=== PATIENT | female | born 1935 | race Caucasian/White ===

== ENCOUNTER → 2020-10-28 11:02 | Outpatient (CLI) | payer MEDICARE, OTHER, SELFPAY ==
[2020-10-16 12:55] VITALS: BMI 37.0
--- NOTE | 2020-10-28 11:06 | ECHOD_ITS ---
Reason For Study: AFIB/FLUTTER Procedure This was a 2D Doppler, Color Flow transthoracic echocardiogram. Exam performed in department. Left Ventricle Normal LV size. Left ventricular systolic function is normal. The estimated ejection fraction is 60 %. Stage 2 diastolic dysfunction. No regional wall motion abnormalities noted. Right Ventricle Normal RV size. Normal systolic function. Atria Normal left atrium. Normal right atrium. Mitral Valve There is mild mitral annular calcification. Mild (1+) eccentric mitral valve insufficiency. Tricuspid Valve Normal tricuspid valve. Mild (1+) tricuspid valve insufficiency. Pulmonary artery systolic pressure is 38 mmHg. Aortic Valve Normal aortic valve. Trisinus/trileaflet aortic valve. Pulmonic Valve Normal pulmonic valve. Mild (1+) pulmonic valve insufficiency. Great Vessels Normal aortic root. The pulmonary artery is normal size. Normal inferior vena cava. Pericardium/Pleural No pericardial effusion. MMode/2D Measurements & Calculations LVIDd: 4.7 cm IVSd: 1.2 cm Ao root diam: 2.7 cm LVIDs: 2.6 cm LVPWd: 1.0 cm RVDd: 3.5 cm FS: 45.5 % LAV(MOD-bp): 56.5 ml LA A4 area: 19.5 cm2 LA dimension(2D): 4.1 cm LAV(MOD-bp) Indexed: 33.1 ml/m2 LAV(MOD-sp2): 57.2 ml LAV(MOD-sp4): 55.8 ml RA A4 area: 12.9 cm2 Time Measurements MV dec time: 0.25 sec Doppler Measurements & Calculations MV E max mayank: 92.2 cm/sec Lat Peak E' Mayank: 5.4 cm/sec Med Peak E' Mayank: 3.9 cm/sec MV A max mayank: 86.1 cm/sec E/E' lat: 17.0 E/E' med: 23.8 MV E/A: 1.1 Ao V2 max: 145.1 cm/sec LV V1 max: 93.2 cm/sec PA V2 max: 86.5 cm/sec Ao max P.4 mmHg LV V1 max P.5 mmHg TR max mayank: 294.7 cm/sec TR max P.9 mmHg ECHO/Echo Complete Interpretation Summary Normal LV size. Left ventricular systolic function is normal. The estimated ejection fraction is 60 %. Mild (1+) tricuspid valve insufficiency. Pulmonary artery systolic pressure is 38 mmHg. Stage 2 diastolic dysfunction. Ordering Physician: El Lama Referring Physician: Rufino Ortega Performed By: Laney Rivas, CARLYN, RVT
== END ==
PROVIDERS: PCP Family Medicine; Referring Provider Internal Medicine Cardiovascular Disease; Visit Provider Internal Medicine Cardiovascular Disease
DX: I48.0 Paroxysmal atrial fibrillation (principal)
CPT/HCPCS: 93306

== ENCOUNTER → 2020-11-27 08:10 | Outpatient (CLI) | payer MEDICARE, OTHER, SELFPAY ==
[2020-10-16 12:55] VITALS: BMI 37.0
--- NOTE | 2020-11-27 08:12 | CT_ITS ---
STUDY: CT LEFT ELBOW WITHOUT CONTRAST REASON FOR EXAM: Female, 85 years old. DISP FX OF NECK OF L RADIUS,INIT FOR CLOS FX RADIATION DOSAGE (If Supplied By Facility): CTDIvol = ( 38.02 ) mGy, DLP = ( 1593.10 ) mGycm TECHNIQUE: Transaxial CT imaging of the elbow was performed. Sagittal and coronal images were reconstructed. Individualized dose optimization techniques were used for this CT. COMPARISON: None. FINDINGS: Patient motion obscuring the distal radius and ulna. Distal humerus intact. Acute comminuted minimally displaced radial neck fracture (sagittal image 26 series 601 and axial image 21 series 6). No acute dislocation. No acute bone destruction. Mild radiocapitellar arthrosis. Ulnar trochlear alignment maintained with mild arthrosis. Proximal ulna intact. Soft tissue swelling at the elbow with elbow joint effusion. CT/Extremity Upper without Contra IMPRESSION: Acute comminuted minimally displaced radial neck fracture Elbow soft tissue swelling with joint effusion Mild elbow osteoarthritis Electronically Signed: Jose Tijerina DO at 8:51 EDT Tel , Service support ,
== END ==
LOC: CT 08:11
PROVIDERS: PCP Family Medicine; Referring Provider Physician Assistant Surgical; Visit Provider Physician Assistant Surgical
DX: S52.132A Displaced fracture of neck of left radius, initial encounter for closed fracture (principal); S42.135A Nondisplaced fracture of coracoid process, left shoulder, initial encounter for closed fracture; X58.XXXA Exposure to other specified factors, initial encounter; M19.022 Primary osteoarthritis, left elbow
CPT/HCPCS: 73200

== ENCOUNTER 2021-04-02 10:31 | Outpatient (CLI) | payer MEDICARE, OTHER, SELFPAY ==
[2021-04-02] MEDS: 0.9% Saline Lock 10 ML Syringe IV (10:53)
[2021-04-02 10:58] VITALS: BP 146/62; PULSE 59; RESP 16; TEMP 36.5; O2SAT 95; BMI 34.3
[2021-04-02 11:50] VITALS: BP 115/54; PULSE 55; RESP 16; TEMP 37; O2SAT 94
[2021-04-02 12:47] VITALS: BP 119/50; PULSE 56; RESP 18; TEMP 37.4; O2SAT 96
== END 2021-04-02 12:50 | disposition home or self-care (01) ==
LOC: MS3OUT 10:31 → MS3 10:33
PROVIDERS: PCP Family Medicine; Referring Provider Nurse Practitioner Adult Health; Visit Provider Nurse Practitioner Adult Health
DX: U07.1 COVID-19 (principal)
CPT/HCPCS: J7050; M0245; Q0245; A4216

== ENCOUNTER 2023-11-13 09:18 | Emergency (ER) | payer MEDICARE, OTHER, SELFPAY ==
[2023-11-13 09:18] VITALS: BP 179/72; PULSE 55; RESP 14; TEMP 36.2; O2SAT 98
--- NOTE | 2023-11-13 10:02 | EDS_ITS ---
HPI History of Present Illness Chief Complaint: Nosebleed Narrative Narrative: 88-year-old female past medical history of hypertension, paroxysmal atrial fibrillation, on Xarelto, presents with bleeding from her left nares that began late last night/early this morning. Her son relates history that she went to bed around midnight, then half an hour later came out because she was having bleeding from her left nares. It had stopped, and while she was laying flat, through the night it had stopped bleeding. When she awoke this morning and sat up, she had bleeding from her left nares again. Going down the back of her throat as well. She denies any other bleeding diathesis. No chest pain or shortness of breath, no lightheadedness or dizziness. She has not had problems with nosebleeds in the past. [facility] Medical History COVID-19 (03/2021) Obesity Right bundle branch block (RBBB) Hyperlipidemia Prediabetes Salas's palsy Paroxysmal atrial fibrillation Essential hypertension Osteopenia History of hepatitis Hyperglycemia Osteoarthritis Home Medications ?Medication ?Instructions ?Recorded ?Last Taken ?Type acetaminophen 500 mg tablet 500 mg PO Q6H PRN Pain 10/10/20 Unknown History cholecalciferol (vitamin D3) 50 50 mcg PO DAILY 10/10/20 Unknown History mcg (2,000 unit) capsule doxylamine succinate 25 mg tablet 25 mg PO QHS PRN Sleep 10/10/20 Unknown History (Nighttime Sleep-Aid (doxylamine)) metoprolol succinate 50 mg 50 mg PO DAILY 10/10/20 Unknown History tablet,extended release 24 hr multivitamin 1 tab PO DAILY 10/10/20 Unknown History omega-3 fatty acids 1,000 mg 1,000 mg PO DAILY 10/10/20 Unknown History capsule (Fish Oil Concentrate) loperamide 2 mg capsule 2 mg PO Q6H PRN 07/03/22 Unknown History rivaroxaban 20 mg tablet (Xarelto) 20 mg PO DAILY #90 tabs 03/29/23 Unknown Rx Allergy/AdvReac Type Severity Reaction Status Date / Time propoxyphene (From Allergy Unknown unknown Verified 11/13/23 09:19 Darvocet-N) Sulfa (Sulfonamide Allergy Unknown unknown Verified 11/13/23 09:19 Antibiotics) Family History Mother Heart disease Father Heart disease Sister Heart disease Breast cancer Aunt Breast cancer Diabetes Grandmother Cancer stomach Surgical History History of bilateral cataract extraction History of eyelid surgery 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 HEENT: No sore throat. No neck pain. No loss of vision. No rhinorrhea. Positive bleeding from left nares. Cardiovascular: No chest pain. No palpitations. No pedal edema. Respiratory: No cough, no shortness of breath. Abdominal: No abdominal pain. No nausea. No vomiting. Genitourinary: No dysuria. No hematuria. Musculoskeletal: No myalgias. No arthralgias. Neurologic: No headaches. No dizziness. No lightheadedness. Skin: No rash. No change in color. Psychiatric: No depression. No anxiety. EXAM Physical Exam Narrative Exam Narrative: Afebrile. Vital signs noted. HEENT examination does reveal nasal clamp in place with dried blood in mouth, no brisk bleeding down posterior pharynx. A irway patent. No drooling or trismus. Cardiovascular examination reveals regular bradycardia. Lungs are clear to auscultation bilaterally. Abdomen soft nontender with normal active bowel sounds. No evidence of pallor of skin. Const Vital Signs: 11/13/23 09:18 11/13/23 10:16 11/13/23 11:18 Temperature 97.2 F L Temperature Source Temporal Pulse Rate 55 L 98 Respiratory Rate 14 16 Respiratory Effort Normal Non-Labored Respiratory Depth Normal Respiratory Pattern Normal Blood Pressure 179/72 H 150/101 H Blood Pressure Mean 107 117 Pulse Ox 98 96 Oxygen Delivery Method Room Air Room Air Room Air MDM MDM MDM Narrative Medical decision making narrative: No field differential diagnosis is applicable. She is having bleeding from her left nares. Nasal clamp was removed, and she does have a clot contained within her left nares. I discussed with them the possibility of cauterization versus nasal packing. Nasal clamp was removed and clots were cleared from the left nares by the patient blowing. Cottonball soaked in Afrin and lidocaine 4% was inserted. This was removed, and posterior rapid Rhino was inserted with 8 mL of air to blow up the balloon. Upon repeat examination afterwards, she has no posterior pharynx bleeding, and she cleared the clots from her throat. She was able to ambulate without rebleed. At this point in time, she may have to hold her Xarelto for few days, and she was referred to the senior business objects developer on-call, Dr. Kirkpatrick. She is to return with increased bleeding, new or worsening symptoms. Disposition is discharged in stable condition. History & Record Review Discussion w/independent historian: Patient and Family Discharge Plan Triage Chief Complaint: Nosebleed Other Complaint: Cough ED Provider: Maximo Lawton Dx/Rx/DC Orders Clinical Impression: Epistaxis, Anticoagulant long-term use Instructions: ED Epistaxis (Adult) Prescriptions: No Action Nighttime Sleep-Aid (doxylamn) 25 mg tablet 25 mg PO QHS PRN (Reason: Sleep) metoprolol succinate 50 mg tablet extended release 24 hr 50 mg PO DAILY cholecalciferol (vitamin D3) 50 mcg (2,000 unit) capsule 50 mcg PO DAILY multivitamin Tablet 1 tab PO DAILY acetaminophen 500 mg tablet 500 mg PO Q6H PRN (Reason: Pain) omega-3 fatty acids [Fish Oil Concentrate] 1,000 mg capsule 1,000 mg PO DAILY loperamide 2 mg capsule 2 mg PO Q6H PRN Xarelto 20 mg tablet 20 mg PO DAILY Qty: 90 4RF Rx Instructions: must administer with evening meal Primary Care Provider: Rufino Ortega Referrals: Jorden Kirkpatrick MD [Med Staff - Active Staff] - 3-5 Days (Packing removal) Rufino Ortega MD [Primary Care Provider] - Activity Restrictions/Additional Instructions: Return with increased bleeding, new or worsening symptoms. You may need to hold your Xarelto for a few days. Have the nasal balloon/packing removed by otolaryngology in 3 to 5 days. Print Language: Irish Disposition Disposition: Home, Self Care
[2023-11-13] MEDS: Oxymetazoline 0.05% 1 SPRAY SPRAY.BTL 2 SPRAY NASAL (10:14)
[2023-11-13] MEDS: Lidocaine 4% 50 ML Bottle TOPICAL (10:14)
[2023-11-13 11:18] VITALS: BP 150/101; PULSE 98; RESP 16; O2SAT 96
== END 2023-11-13 12:11 | disposition home or self-care (01) ==
PROVIDERS: Emergency Provider Emergency Medicine; PCP Family Medicine; Visit Provider Emergency Medicine
DX: R04.0 Epistaxis (principal); I48.0 Paroxysmal atrial fibrillation; I10 Essential (primary) hypertension; Z79.01 Long term (current) use of anticoagulants; Z79.899 Other long term (current) drug therapy; Z86.16 Personal history of COVID-19
CPT/HCPCS: 30905; 99283

== ENCOUNTER 2024-04-07 16:36 | Inpatient (IN) | payer MEDICARE, OTHER, SELFPAY ==
[2024-04-07] VITALS (10 sets, daily range): BP systolic 135–162; BP diastolic 60–94; PULSE 58–88; RESP 15–24; TEMP 36.7–37.1; O2SAT 82–98; BMI 33.1; BMI 34.2
[2024-04-07] MEDS: Ipratropium/Albuterol Sulfate 3 ML AMPUL.NEB INHALATION ×2 (18:04→19:14)
[2024-04-07] MEDS: Albuterol 2.5 MG/3 ML VIAL.NEB. INHALATION (18:04)
--- NOTE | 2024-04-07 18:18 | ED.VIS.DYS ---
HPI <MARGIE Pavon - Last Filed: 04/07/24 20:56> History of Present Illness Chief Complaint: Cough Narrative Narrative: Patient presenting today due to a productive cough she has had over the past 4-5 days. She reports that she has been coughing up yellow-colored sputum. She denies chest pain, shortness of breath, fevers, and chills. She went to urgent care prior to arrival and they said that her oxygen saturation was below 90% and that she needed to come to the emergency department for evaluation. PFSH <MARGIE Pavon - Last Filed: 04/07/24 20:56> [facility] Medical History COVID-19 (03/2021) Obesity Right bundle branch block (RBBB) Hyperlipidemia Prediabetes Salas's palsy Paroxysmal atrial fibrillation Essential hypertension Osteopenia History of hepatitis Hyperglycemia Osteoarthritis Home Medications ?Medication ?Instructions ?Recorded ?Last Taken ?Type acetaminophen 500 mg tablet 500 mg PO Q6H PRN Pain 10/10/20 Unknown History cholecalciferol (vitamin D3) 50 50 mcg PO DAILY 10/10/20 Unknown History mcg (2,000 unit) capsule doxylamine succinate 25 mg tablet 25 mg PO QHS PRN Sleep 10/10/20 Unknown History (Nighttime Sleep-Aid (doxylamine)) metoprolol succinate 50 mg 50 mg PO DAILY 10/10/20 Unknown History tablet,extended release 24 hr multivitamin 1 tab PO DAILY 10/10/20 Unknown History omega-3 fatty acids 1,000 mg 1,000 mg PO DAILY 10/10/20 Unknown History capsule (Fish Oil Concentrate) loperamide 2 mg capsule 2 mg PO Q6H PRN loose stool 07/03/22 Unknown History Allergy/AdvReac Type Severity Reaction Status Date / Time propoxyphene (From Allergy Unknown unknown Verified 04/07/24 16:37 Darvocet-N) Sulfa (Sulfonamide Allergy Unknown unknown Verified 04/07/24 16:37 Antibiotics) Family History Mother Heart disease Father Heart disease Sister Heart disease Breast cancer Aunt Breast cancer Diabetes Grandmother Cancer stomach Surgical History History of bilateral cataract extraction History of eyelid surgery 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 (~2004) Social History Smoking Status: Never smoker alcohol intake: never substance use type: does not use caffeine: Yes Type: coffee Number of servings: 1 ROS <MARGIE Pavon - Last Filed: 04/07/24 20:56> ROS ED Constitutional Constitutional ED: Denies chills or fever(s) Cardiovascular Cardiovascular: Denies chest pain Respiratory/Chest Respiratory/Chest: Reports cough; Denies dyspnea Gastrointestinal Gastrointestinal: Denies abdominal pain, nausea or vomiting Musculoskeletal Musculoskeletal: Denies arthralgias or myalgias Integumentary Denies rash Neurologic Neurologic: Denies weakness EXAM <MARGIE Pavon - Last Filed: 04/07/24 20:56> Physical Exam Const Vital Signs: 04/07/24 16:37 04/07/24 18:02 04/07/24 18:05 Temperature 98.1 F 98.8 F Temperature Source Oral Oral Pulse Rate 88 58 L Respiratory Rate 20 H 22 H Respiratory Effort Respiratory Depth Respiratory Pattern Blood Pressure 135/94 H 162/76 H Blood Pressure Mean 107 104 Pulse Ox 92 96 82 Oxygen Delivery Method Room Air Nasal Cannula Room Air Oxygen Flow Rate (L/min) 2 04/07/24 18:07 04/07/24 18:07 04/07/24 18:12 Temperature Temperature Source Pulse Rate Respiratory Rate 20 H Respiratory Effort Normal Non-Labored Respiratory Depth Normal Respiratory Pattern Normal Blood Pressure Blood Pressure Mean Pulse Ox 87 98 Oxygen Delivery Method Room Air Nasal Cannula Oxygen Flow Rate (L/min) 2 04/07/24 18:12 04/07/24 19:00 04/07/24 20:00 Temperature 98.7 F Temperature Source Oral Pulse Rate 69 62 64 Respiratory Rate 24 H 20 H 20 H Respiratory Effort Respiratory Depth Respiratory Pattern Blood Pressure 153/60 H 148/75 H Blood Pressure Mean 91 99 Pulse Ox 96 96 Oxygen Delivery Method Nasal Cannula Nasal Cannula Oxygen Flow Rate (L/min) 2 2 04/07/24 20:34 Temperature 98.7 F Temperature Source Pulse Rate 64 Respiratory Rate 22 H Respiratory Effort Respiratory Depth Respiratory Pattern Blood Pressure 148/75 H Blood Pressure Mean 99 Pulse Ox 96 Oxygen Delivery Method Oxygen Flow Rate (L/min) Positive well nourished, well developed and no apparent distress General Appearance ED: well developed HEENT Reports normocephalic and head/scalp atraumatic Mouth ED: Yes moist mucous membranes normal Eyes PERRL and EOMs intact bilaterally Neck full ROM and supple Chest Wall inspection of chest normal Resp normal respiratory effort Resp Narrative: Coarse breath sounds throughout the bilateral lung christianson Cardio regular rate and regular rhythm GI soft to palpation, non-tender, non-distended and no masses Back/Spine normal ROM and normal to inspection Extremity normal to inspection and full ROM Neuro oriented x3, CN's II-XII intact bilaterally, moves all extremities, no focal motor deficits and no sensory deficits noted Sensorium / Orientation: awake and alert Psych mental status grossly normal and thought process normal Skin no rashes or lesions noted and no wounds <Dr. Jose Perrin, DO - Last Filed: 04/07/24 22:06> Physical Exam Const Vital Signs: 04/07/24 16:37 04/07/24 18:02 04/07/24 18:05 Temperature 98.1 F 98.8 F Temperature Source Oral Oral Pulse Rate 88 58 L Respiratory Rate 20 H 22 H Respiratory Effort Respiratory Depth Respiratory Pattern Blood Pressure 135/94 H 162/76 H Blood Pressure Mean 107 104 Pulse Ox 92 96 82 Oxygen Delivery Method Room Air Nasal Cannula Room Air Oxygen Flow Rate (L/min) 2 04/07/24 18:07 04/07/24 18:07 04/07/24 18:12 Temperature Temperature Source Pulse Rate Respiratory Rate 20 H Respiratory Effort Normal Non-Labored Respiratory Depth Normal Respiratory Pattern Normal Blood Pressure Blood Pressure Mean Pulse Ox 87 98 Oxygen Delivery Method Room Air Nasal Cannula Oxygen Flow Rate (L/min) 2 04/07/24 18:12 04/07/24 19:00 04/07/24 20:00 Temperature 98.7 F Temperature Source Oral Pulse Rate 69 62 64 Respiratory Rate 24 H 20 H 20 H Respiratory Effort Respiratory Depth Respiratory Pattern Blood Pressure 153/60 H 148/75 H Blood Pressure Mean 91 99 Pulse Ox 96 96 Oxygen Delivery Method Nasal Cannula Nasal Cannula Oxygen Flow Rate (L/min) 2 2 04/07/24 20:34 Temperature 98.7 F Temperature Source Pulse Rate 64 Respiratory Rate 22 H Respiratory Effort Respiratory Depth Respiratory Pattern Blood Pressure 148/75 H Blood Pressure Mean 99 Pulse Ox 96 Oxygen Delivery Method Oxygen Flow Rate (L/min) [facility] <MARGIE Pavon - Last Filed: 04/07/24 20:56> [facility] Narrative Medical decision making narrative: Patient presenting today due to a productive cough she has had over the past 4 to 5 days. She was sent here for hypoxia at the urgent care. At rest she is around 92% on room air but ambulating to the bedside she did desaturate to 82% and did require 2 L supplemental O2 which brought her back up to 98%. She was taken off of the O2, she was given an additional breathing treatment and was ambulated and did drop down to 82% on room air again. At this point, I feel she requires admission to the hospital and I will speak with the hospitalist. She is RSV positive. Chest x-ray shows no infiltrate. Patient admitted in stable condition. Lab Data Attestation: I reviewed the patient's lab results. Labs: Laboratory Results - last 24 hr 04/07/24 19:19 WBC 6.0 RBC 4.49 Hgb 13.8 Hct 42.3 MCV 94.2 MCH 30.7 MCHC 32.6 RDW Std Deviation 43.2 RDW Coeff of Tanner 12.5 Plt Count 78 L MPV 11.1 Immature Gran % (Auto) 0.300 Neut % (Auto) 25.4 L Lymph % (Auto) 42.3 H High[place] % (Auto) 30.3 H Eos % (Auto) 1.2 Baso % (Auto) 0.5 Absolute Neuts (auto) 1.5 L Absolute Lymphs (auto) 2.55 Nucleated RBC % 0 Sodium 137 Potassium 4.2 Chloride 102 Carbon Dioxide 32.0 Anion Gap 3 L BUN 11 Creatinine 0.75 Estim Creat Clear Calc 42.94 Est GFR (MDRD) Af Amer 93 Est GFR (MDRD) Non-Af 77 BUN/Creatinine Ratio 14.6 Glucose 120 H Calcium 9.6 Radiography X-Ray: Read by ED Physician Diagnostic Testing: Clinical Impression(s) from Imaging Studies Chest X-Ray 04/07/24 18:28 IMPRESSION: 1. No evidence of acute cardiopulmonary process Electronically Signed: Ashu Woods MD at 18:54 EST , <Dr. Jose Perrin, DO - Last Filed: 04/07/24 22:06> [facility] Lab Data Labs: Laboratory Results - last 24 hr 04/07/24 19:19 WBC 6.0 RBC 4.49 Hgb 13.8 Hct 42.3 MCV 94.2 MCH 30.7 MCHC 32.6 RDW Std Deviation 43.2 RDW Coeff of Tanner 12.5 Plt Count 78 L MPV 11.1 Immature Gran % (Auto) 0.300 Neut % (Auto) 25.4 L Lymph % (Auto) 42.3 H High[place] % (Auto) 30.3 H Eos % (Auto) 1.2 Baso % (Auto) 0.5 Absolute Neuts (auto) 1.5 L Absolute Lymphs (auto) 2.55 Nucleated RBC % 0 Sodium 137 Potassium 4.2 Chloride 102 Carbon Dioxide 32.0 Anion Gap 3 L BUN 11 Creatinine 0.75 Estim Creat Clear Calc 42.94 Est GFR (MDRD) Af Amer 93 Est GFR (MDRD) Non-Af 77 BUN/Creatinine Ratio 14.6 Glucose 120 H Calcium 9.6 Radiography Chest X-Ray - ED: 2 View, Read by ED Physician, Read by Radiologist and No Acute Disease Diagnostic Testing: Clinical Impression(s) from Imaging Studies Chest X-Ray 04/07/24 18:28 IMPRESSION: 1. No evidence of acute cardiopulmonary process Electronically Signed: Ashu Woods MD at 18:54 EST , Treatment and Re-Evaluation :: I have personally performed a face to face assessment of the patient and have reviewed the ALLI Note. I performed a substantive portion of the visit including all aspects of the following. My moran findings include: History: Patient presents with cough and shortness of breath that has been getting worse over the past 2 days. Patient states it is gradually getting worse. Patient states he is coughing up some yellow sputum. Patient admits to some nasal congestion. Patient denies any fevers or chills. Patient denies any chest pain. Patient denies any hemoptysis. Patient states she did have some nausea, vomiting, and diarrhea last week but this has resolved. Exam: Signs are stable. Patient is afebrile. Patient is in no acute distress. Oral mucosa is pink and moist. Neck is supple. Trachea is midline. There is no JVD. Heart was regular rate and rhythm. Lungs show expiratory wheezing bilaterally. There is good respiratory effort noted. Abdomen is soft. Bowel sounds are normal. There is no tenderness. Cranial nerves II through XII are intact. There are no focal motor or sensory deficits. Medical Decision Making: Differential diagnosis includes pneumonia, bronchitis, COPD exacerbation, asthma exacerbation, and viral illness. Chest x-ray will be obtained to assess for pneumonia and bronchitis. CBC will be obtained to assess for leukocytosis and anemia. Basic metabolic profile will be obtained to assess for electrolyte abnormality and renal function. COVID-19, influenza, and RSV PCR will be obtained to assess for viral illness. Patient was given DuoNeb aerosols here. CBC was reviewed. Platelets were slightly low at 78. The remainder is within normal limits. Basic metabolic profile was reviewed and was essentially within normal limits. PA and lateral chest x-ray was obtained. There are 2 views. On my independent interpretation, lung christianson are clear. There is normal cardiac silhouette. Bony thorax is normal. There is no acute process noted. Radiologist also interpreted the x-ray and agrees. COVID-19 PCR was reviewed and was negative. Influenza PCR was reviewed and was negative for influenza A and influenza B. RSV PCR was reviewed and was positive. Patient and family were advised of her findings. Patient ambulated here in the emergency department and her pulse oximeter dropped to 83% on room air. Because of this, patient will need to be admitted to the hospital. Case was discussed with the hospitalist. He will admit the patient to his service. Patient and family understand and are agreeable with the plan. All questions were answered. Discharge Plan Dx/Rx/DC Orders Clinical Impression: RSV infection, Hypoxia Disposition Disposition: Acute Care Hospital [facility] Discharge Date/Time: 04/07/24 21:59
--- NOTE | 2024-04-07 18:28 | RAD_ITS ---
INDICATION: cough EXAMINATION/TECHNIQUE: X-RAY - XR Chest 2 Views COMPARISON: 10/12/2003 FINDINGS: LIFE-SUPPORT AND LINES: 1. None HEART AND VESSELS: The cardiac silhouette, pulmonary vasculature have normal appearance. No evidence of congestive failure. LUNGS AND PLEURAL SPACES: Lungs are clear. No focal infiltrate, consolidation or effusions. No evidence of pneumothorax. No pulmonary mass is noted. MEDIASTINUM AND HILAR REGIONS: No masses adenopathy noted. No areas of calcification. Visualized upper airway is normal in position. BONY ELEMENTS: No acute bony changes noted. RAD/Chest PA and Lateral IMPRESSION: 1. No evidence of acute cardiopulmonary process Electronically Signed: Ashu Woods MD at 18:54 EST ,
[2024-04-07 19:28] LABS: Absolute Lymphocyte Count 2.55 X10^3/uL (0.83-4.51); Absolute Neutrophil Count 1.5 X10^3/uL (2.0-7.7); Basophil# 0.03 X10^3/uL; Basophil% 0.5 % (0-1); Eosinophil# 0.07 X10^3/uL; Eosinophils% 1.2 % (0-5); Hematocrit 42.3 % (37-47); Hemoglobin 13.8 g/dL (12.0-15.0); Lymphocyte # 2.55 X10^3/ul (0.83-4.51); Lymphocyte % 42.3 % (19-41); Mean Corp Hgb Conc 32.6 g/dL (32-36); Mean Corpuscular Hgb 30.7 pg (27.0-32.0); Mean Corpuscular Volume 94.2 fL (81-99); Mean Platelet Vol. 11.1 fl (6.2-12.0); Monocyte# 1.83 X10^3/uL; Monocyte% 30.3 % (0-10); NRBC Flagged by Analyzer 0 % (0-5); Neutrophil # 1.53 X10^3/uL (2.7-7.7); Neutrophil % 25.4 % (47-70); POSITIVE COUNT YES; POSITIVE DIFFERENTIAL YES; Platelet Count 78 K/mm3 (150-450); RBC Distribution Width CV 12.5 % (11.6-14.6); RBC Distribution Width SD 43.2 fl (35.1-43.9); Red Blood Count 4.49 M/mm3 (4.2-5.4)
[2024-04-07 19:34] LABS: Differential Indicated SCAN CRITERIA MET
--- NOTE | 2024-04-07 19:35 | CPS ---
[1914] x1 Duoneb given to pt. Pre-tx: HR=67, RR=26 with coarse breath sounds. Post-tx: HR=63, RR=22 with clearer breath sounds and expiratory wheezes. Pt. coughed up yellow phlegm post-tx and states she feels relief.
[2024-04-07 19:40] LABS: Anion Gap 3 (5-15); BUN 11 mg/dL (7-18); BUN/Creat Ratio 14.6 RATIO (10-20); Calcium,Total 9.6 mg/dL (8.5-10.1); Chloride 102 mmol/L (98-107); Creatinine, Serum 0.75 mg/dL (0.55-1.02); EST Glomerular Filtration Rate 77 mL/min (>60); Est Glom Filt Rate - Afr Amer 93 mL/min (>60); Estimated Creatinine Clearance 42.94 ml/min; Glucose 120 mg/dL (74-106); Potassium 4.2 mmol/L (3.5-5.1); Sodium Level 137 mmol/L (136-145)
--- NOTE | 2024-04-07 21:02 | HP.PCM.HOS_ITS ---
HPI - General General Date of Admission: 04/07/24 HPI Narrative VINCENT KHANNA, is a 89 F who presents to the hospital with cough and shortness of breath. She was found to be hypoxic down to 82% on room air at rest and with ambulation. Workup was fairly unremarkable except for a positive RSV test. She denies any history of COPD or asthma though her late was a 3 pack-a-day smoker so she does have significant secondhand smoke exposure. She was having some wheezing on admission that was resolved by the time I evaluated her secondary to breathing treatments in the ER. [facility] Medical History COVID-19 (03/2021) Obesity Right bundle branch block (RBBB) Hyperlipidemia Prediabetes Salas's palsy Paroxysmal atrial fibrillation Essential hypertension Osteopenia History of hepatitis Hyperglycemia Osteoarthritis Home Medications ?Medication ?Instructions ?Recorded ?Last Taken ?Type acetaminophen 500 mg tablet 500 mg PO Q6H PRN Pain 10/10/20 Unknown History cholecalciferol (vitamin D3) 50 50 mcg PO DAILY 10/10/20 Unknown History mcg (2,000 unit) capsule doxylamine succinate 25 mg tablet 25 mg PO QHS PRN Sleep 10/10/20 Unknown History (Nighttime Sleep-Aid (doxylamine)) metoprolol succinate 50 mg 50 mg PO DAILY 10/10/20 Unknown History tablet,extended release 24 hr multivitamin 1 tab PO DAILY 10/10/20 Unknown History omega-3 fatty acids 1,000 mg 1,000 mg PO DAILY 10/10/20 Unknown History capsule (Fish Oil Concentrate) loperamide 2 mg capsule 2 mg PO Q6H PRN loose stool 07/03/22 Unknown History Allergy/AdvReac Type Severity Reaction Status Date / Time propoxyphene (From Allergy Unknown unknown Verified 04/07/24 16:37 Darvocet-N) Sulfa (Sulfonamide Allergy Unknown unknown Verified 04/07/24 16:37 Antibiotics) Family History Mother Heart disease Father Heart disease Sister Heart disease Breast cancer Aunt Breast cancer Diabetes Grandmother Cancer stomach Surgical History History of bilateral cataract extraction History of eyelid surgery 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 (~2004) Social History Smoking Status: Never smoker alcohol intake: never substance use type: does not use caffeine: Yes Type: coffee Number of servings: 1 ROS Constitutional Constitutional: Reports weakness; Denies chills, fatigue, fever(s) or malaise Eyes Eyes: Denies blurry vision ENT HEENT: Denies headache(s) or nasal discharge Cardiovascular Cardiovascular: Denies chest pain, dyspnea on exertion or syncope Respiratory/Chest Respiratory/Chest: Reports cough, shortness of breath at rest and shortness of breath with exertion Gastrointestinal Gastrointestinal: Denies constipation, diarrhea, nausea or vomiting Genitourinary Genitourinary: Denies dysuria Neurologic Neurologic: Denies focal weakness, numbness or tremor(s) Psychiatric Psychiatric: Denies anxiety or depression Vital Signs Vital Signs Vital Signs: 04/07/24 16:37 04/07/24 18:02 04/07/24 18:05 Temperature 98.1 F 98.8 F Temperature Source Oral Oral Pulse Rate 88 58 L Respiratory Rate 20 H 22 H Respiratory Effort Respiratory Depth Respiratory Pattern Blood Pressure 135/94 H 162/76 H Blood Pressure Mean 107 104 Pulse Ox 92 96 82 Oxygen Delivery Method Room Air Nasal Cannula Room Air Oxygen Flow Rate (L/min) 2 04/07/24 18:07 04/07/24 18:07 04/07/24 18:12 Temperature Temperature Source Pulse Rate Respiratory Rate 20 H Respiratory Effort Normal Non-Labored Respiratory Depth Normal Respiratory Pattern Normal Blood Pressure Blood Pressure Mean Pulse Ox 87 98 Oxygen Delivery Method Room Air Nasal Cannula Oxygen Flow Rate (L/min) 2 04/07/24 18:12 04/07/24 19:00 04/07/24 20:00 Temperature 98.7 F Temperature Source Oral Pulse Rate 69 62 64 Respiratory Rate 24 H 20 H 20 H Respiratory Effort Respiratory Depth Respiratory Pattern Blood Pressure 153/60 H 148/75 H Blood Pressure Mean 91 99 Pulse Ox 96 96 Oxygen Delivery Method Nasal Cannula Nasal Cannula Oxygen Flow Rate (L/min) 2 2 04/07/24 20:34 Temperature 98.7 F Temperature Source Pulse Rate 64 Respiratory Rate 22 H Respiratory Effort Respiratory Depth Respiratory Pattern Blood Pressure 148/75 H Blood Pressure Mean 99 Pulse Ox 96 Oxygen Delivery Method Oxygen Flow Rate (L/min) Weight Weight: 164 lb Body Mass Index (BMI) 33.1 Physical Exam Narrative General: Alert, Oriented x3, Cooperative, No apparent distress HEENT: Atraumatic, PERRLA, EOMI, Normocephalic Oral: Moist Mucosa Neck: Supple, No JVD Lungs: Diminished, Normal air movement, No rhonchi, scattered wheeze, No rales Cardiovascular: Regular rate, Regular Rhythm, Normal S1, Normal S2, No murmurs Abdomen: Soft, Non Tender, Non-Distended, No Hepato-splenomegaly Extremities: No edema, Capillary Refill Less than 3 Seconds Skin: No rashes, No breakdown Musculoskeletal: No Tenderness to Palpation of Joints or Extremities Neurological: No focal neurological deficits, Motor Exam 5/5 strength throughout, Sensory exam intact to light touch and pain Psych/Mental Status: Normal Affect, Appropriate Results Lab / Micro Data 04/07/24 19:19 04/07/24 19:19 Labs: Laboratory Results - last 24 hr 04/07/24 19:19: WBC 6.0, RBC 4.49, Hgb 13.8, Hct 42.3, MCV 94.2, MCH 30.7, MCHC 32.6, RDW Std Deviation 43.2, RDW Coeff of Tanner 12.5, Plt Count 78 L, MPV 11.1, Immature Gran % (Auto) 0.300, Neut % (Auto) 25.4 L, Lymph % (Auto) 42.3 H, [place] % (Auto) 30.3 H, Eos % (Auto) 1.2, Baso % (Auto) 0.5, Absolute Neuts (auto) 1.5 L, Absolute Lymphs (auto) 2.55, Nucleated RBC % 0, Sodium 137, Potassium 4.2, Chloride 102, Carbon Dioxide 32.0, Anion Gap 3 L, BUN 11, Creatinine 0.75, Estim Creat Clear Calc 42.94, Est GFR (MDRD) Af Amer 93, Est GFR (MDRD) Non-Af 77, BUN/Creatinine Ratio 14.6, Glucose 120 H, Calcium 9.6 Micro: Microbiology 04/07/24 18:22 Mucosa - Nose SARS-CoV-2, Influenza & RSV (PCR) - Final RSV Imaging Radiology Impression Chest X-Ray 04/07/24 18:28 IMPRESSION: 1. No evidence of acute cardiopulmonary process Electronically Signed: Ashu Woods MD at 18:54 EST , Assessment & Plan Assessment/Plan (1) RSV infection: (2) Hypoxia: PLAN: Plan 1. Acute hypoxic respiratory insufficiency secondary to RSV ? Continue with p.o. steroids ? Continue with inhalers ? She is currently requiring 2 L nasal cannula ? Chest x-ray was negative for consolidation and she does not have a white count to indicate a bacterial pneumonia so we will hold off antibiotics 2. Paroxysmal A-fib/essential HTN ? Blood pressures are normal ? Continue with her home metoprolol ? Will monitor make adjustments as necessary DVT: Lovenox Charges/Coding Visit Charges Inpatient E&M: 26715 Init Hosp L2
[2024-04-07 22:04] LABS: Platelet Estimate MOD DEC (ADEQ); Platelet Morphology CLUMPED; Red Cell Morphology NORM C+C NORMAL (NORM C&C)
[2024-04-08] VITALS (11 sets, daily range): BP systolic 114–154; BP diastolic 46–66; PULSE 54–81; RESP 15–20; TEMP 36.2–36.5; O2SAT 88–97
[2024-04-08 06:53] LABS: Absolute Lymphocyte Count 2.44 X10^3/uL (0.83-4.51); Absolute Neutrophil Count 1.3 X10^3/uL (2.0-7.7); Basophil# 0.02 X10^3/uL; Basophil% 0.4 % (0-1); Eosinophil# 0.01 X10^3/uL; Eosinophils% 0.2 % (0-5); Hematocrit 38.9 % (37-47); Hemoglobin 12.8 g/dL (12.0-15.0); Lymphocyte # 2.44 X10^3/ul (0.83-4.51); Lymphocyte % 44.3 % (19-41); Mean Corp Hgb Conc 32.9 g/dL (32-36); Mean Corpuscular Hgb 30.8 pg (27.0-32.0); Mean Corpuscular Volume 93.5 fL (81-99); Mean Platelet Vol. 10.6 fl (6.2-12.0); Monocyte# 1.75 X10^3/uL; Monocyte% 31.8 % (0-10); NRBC Flagged by Analyzer 0 % (0-5); Neutrophil # 1.27 X10^3/uL (2.7-7.7); Neutrophil % 22.9 % (47-70); POSITIVE COUNT YES; POSITIVE DIFFERENTIAL YES; RBC Distribution Width CV 12.5 % (11.6-14.6); RBC Distribution Width SD 43.2 fl (35.1-43.9); Red Blood Count 4.16 M/mm3 (4.2-5.4); White Blood Count 5.5 K/mm3 (4.4-11.0)
[2024-04-08 07:10] LABS: Anion Gap 4 (5-15); BUN 11 mg/dL (7-18); Calcium,Total 8.9 mg/dL (8.5-10.1); Chloride 103 mmol/L (98-107); Creatinine, Serum 0.69 mg/dL (0.55-1.02); EST Glomerular Filtration Rate 86 mL/min (>60); Est Glom Filt Rate - Afr Amer 104 mL/min (>60); Estimated Creatinine Clearance 43.73 ml/min; Glucose 110 mg/dL (74-106); Potassium 3.8 mmol/L (3.5-5.1); Sodium Level 137 mmol/L (136-145)
[2024-04-08] MEDS: Ipratropium/Albuterol Sulfate 3 ML AMPUL.NEB INHALATION ×4 (07:46→19:40)
[2024-04-08 08:00] LABS: Differential Indicated SCAN CRITERIA MET
[2024-04-08 08:08] LABS: Differential Comment SCANNED; Platelet Estimate ADEQUATE (ADEQ); Platelet Morphology CLUMPED; Red Cell Morphology NORM C+C NORMAL (NORM C&C)
[2024-04-08] MEDS: Enoxaparin 40 MG/0.4 ML Syringe SC (10:30)
[2024-04-08] MEDS: Multivitamins,Therapeutic Tablet 1 TABLET PO (10:30)
[2024-04-08] MEDS: Cholecalciferol (VIT D3) 25 MCG TABLET (1,000 UNITS) 50 MCG PO (10:30)
[2024-04-08] MEDS: Metoprolol(XL)Succ 50 MG Tablet PO (10:37)
--- NOTE | 2024-04-08 13:07 | CASEMGMT ---
XOCHITL MONTEIRO Assessment: Face to Face with pt for initial transition planning/care coordination assessment. XOCHITL MONTEIRO introduced self and role at [facility], pt voices understanding and consents to assessment. Pt is A&O x4 and answers all questions appropriately at this time. Pt sitting up in bed with oxygen on in no distress with son and sister at bedside. Pt agreeable to assessment with visitors present. Care providers, pharmacy, and demographics verified/updated. Admitting Dx: RSV with hypoxia PCP:Shannon Specialists:LILIANA, cardio Jeremiah Pharmacy: [facility] Insurance: [employer] Prescription Benefit: yes LNOK: Espinoza Hinds, son; Michael/Dionna Hinds, son and dtr in law Living Arrangements: Pt lives with son in a single story home with 2 steps to enter with a rail. Pt reports she can dress herself. Pt goes to [employer] on Mondays and Wednesdays for bathing and activities. Pt and son share in IADLs. Pt denies concerns at home. Transportation: Pt does not drive. Pt son and [employer] is used for transportation. DME:pox, w/c, walker, cane, shower chair HHC/SNF: Pt denies HHC and has been to [facility] for SNF. Pt states no concerns with going home at time of dc. Provided pt with a local in network list of DME companies should she need oxygen, pt chose [employer]. Pt denies need for any therapy at home. She states she will do them on her own with the tv. Son confirms that pt does indeed do this. Pt is aware that should she go home and change her mind, she can contact her PCP for therapy orders. Pt denies need for SN. Pt states no further concerns/needs. CM to follow. Advised pt to ask CM if any further question/concerns/needs arise, voices understanding. Pt Goal: Home Plan: Home, green sheet for oxygen. Halley LEUNG CM
--- NOTE | 2024-04-08 13:31 | PCM.PN.HOSP ---
Reason for Visit Reason for Visit: Cough and shortness of breath Subjective Subjective Patient is an 89-year-old white female who presented to emergency department at [facility] on 04/07/2024 with cough and shortness of breath. Patient had been feeling okay but developed a cough with production in the past 4 to 5 days prior to presentation emergency department and had been coughing up yellow-colored sputum. She denied any chest pain, shortness of breath, fevers, or chills. She went to an urgent care prior to coming emergency department and they checked her oxygen saturation and was found to be below 90% so they informed her she needed to come to the emergency department for further evaluation. Vital signs on arrival showed a temperature of 98.1, heart rate 88, respiratory rate 20, blood pressure was 135/94 and oxygen saturations were 92% on room air. She did end up desatting on room air to 82% and was placed on 2 L nasal cannula which improved her oxygen saturations to 98%. CBC is unremarkable other than a monocytosis and lymphocytosis. Chemistry panel is unremarkable. Chest x-ray showed no evidence of cardiopulmonary process. COVID/flu/RSV panel was positive for RSV on PCR. She was admitted to the medical floor and placed on pulmonary toilet, steroids, incentive spirometer, Pep therapy and therapy services were ordered. Today the patient states she feels about the same. Breath sounds are coarse. Her son is at the bedside and states she does seem a little bit better today as far as her breathing goes than yesterday. Objective Data Objective Data Vital Signs: Vital Signs Temp Pulse Resp BP Pulse Ox O2 Del Method O2 Flow Rate 97.6 F L 54 L 20 H 116/46 L 97 Nasal Cannula 2 04/08/24 02:03 04/08/24 11:19 04/08/24 11:19 04/08/24 02:03 04/08/24 07:49 04/08/24 07:49 04/08/24 07:49 Oxygen Flow Rate (L/min) 2 Oxygen Delivery Method Nasal Cannula Weight: 77 kg Body Mass Index (BMI) 34.2 Lab / Micro Data 04/08/24 05:26 04/08/24 05:26 Labs: Laboratory Results - last 24 hr 04/07/24 19:19: WBC 6.0, RBC 4.49, Hgb 13.8, Hct 42.3, MCV 94.2, MCH 30.7, MCHC 32.6, RDW Std Deviation 43.2, RDW Coeff of Tanner 12.5, Plt Count 78 L, MPV 11.1, Immature Gran % (Auto) 0.300, Neut % (Auto) 25.4 L, Lymph % (Auto) 42.3 H, [place] % (Auto) 30.3 H, Eos % (Auto) 1.2, Baso % (Auto) 0.5, Absolute Neuts (auto) 1.5 L, Absolute Lymphs (auto) 2.55, Nucleated RBC % 0, Differential Comment , Diff Path Review May renu, Platelet Estimate MOD DEC, Plt Morphology Comment CLUMPED, RBC Morphology NORM C+C, Sodium 137, Potassium 4.2, Chloride 102, Carbon Dioxide 32.0, Anion Gap 3 L, BUN 11, Creatinine 0.75, Estim Creat Clear Calc 42.94, Est GFR (MDRD) Af Amer 93, Est GFR (MDRD) Non-Af 77, BUN/Creatinine Ratio 14.6, Glucose 120 H, Calcium 9.6 04/08/24 05:26: WBC 5.5, RBC 4.16 L, Hgb 12.8, Hct 38.9, MCV 93.5, MCH 30.8, MCHC 32.9, RDW Std Deviation 43.2, RDW Coeff of Tanner 12.5, Plt Count , MPV 10.6, Immature Gran % (Auto) 0.400, Neut % (Auto) 22.9 L, Lymph % (Auto) 44.3 H, [place] % (Auto) 31.8 H, Eos % (Auto) 0.2, Baso % (Auto) 0.4, Absolute Neuts (auto) 1.3 L, Absolute Lymphs (auto) 2.44, Nucleated RBC % 0, Differential Comment SCANNED, Diff Path Review August renu, Platelet Estimate ADEQUATE, Plt Morphology Comment CLUMPED, RBC Morphology NORM C+C, Sodium 137, Potassium 3.8, Chloride 103, Carbon Dioxide 31.0, Anion Gap 4 L, BUN 11, Creatinine 0.69, Estim Creat Clear Calc 43.73, Est GFR (MDRD) Af Amer 104, Est GFR (MDRD) Non-Af 86, BUN/Creatinine Ratio 16.0, Glucose 110 H, Calcium 8.9 Micro: Microbiology 04/07/24 18:22 Mucosa - Nose SARS-CoV-2, Influenza & RSV (PCR) - Final RSV Radiography Diagnostic Testing: Radiology Impression Chest X-Ray 04/07/24 18:28 IMPRESSION: 1. No evidence of acute cardiopulmonary process Electronically Signed: Ashu Woods MD at 18:54 EST , Physical Exam Const alert, oriented x3, no apparent distress and well nourished; Negative for average body habitus Constitutional Narrative: Obese, elderly, white female, sitting up in bed watching television, appears comfortable, nontoxic, son at the bedside HEENT head/scalp atraumatic and moist oral mucous membranes HEENT Narrative: Dentures in place, Mallampati 2-3, no thrush Head and Scalp: normocephalic Resp normal respiratory effort, no retractions, no use of accessory muscles and No clear to auscultation bilaterally Resp Narrative: Very coarse breath sounds throughout, no signs of respiratory distress or extremis Auscultation: Negative for rhonchi or wheezes Cardio regular rate, regular rhythm, S1 normal heart sound, S2 normal heart sound, no rub, no gallops and no clicks; Negative for no murmurs Cardio Narrative: 2 out of 6 systolic murmur loudest at right upper sternal border GI normal to inspection, nondistended, normoactive bowel sounds, soft to palpation and non-tender Extremity Extremity Narrative: Trace lower extremity edema, no cyanosis or clubbing Neuro oriented x3, moves all extremities and no focal motor deficits Speech: speech normal Psych affect normal Psych Narrative: Eye contact is good and patient appears comfortable Assessment & Plan Assessment/Plan (1) Hypoxia: (2) RSV infection: PLAN: Plan Acute hypoxia secondary to RSV viral pneumonia -Switch steroids to IV 40 every 8 -Continue aggressive pulmonary toilet with scheduled and as needed aerosols -Add incentive spirometer -Add Acapella -Add Mucinex -Continue oxygen at 2 L but wean as able -Will need ambulatory pulse ox prior to discharge Chronic HFpEF secondary to stage II diastolic dysfunction -Appears compensated at this time -Monitor clinically Essential hypertension/hyperlipidemia -Patient is not on statin or other cholesterol medication at this time -Continue home metoprolol 50 daily Insulin resistance -Will monitor closely but no SSI or Accu-Cheks for now Paroxysmal atrial fibrillation -Currently in sinus rhythm -Continue beta-rina -Patient is currently not on any anticoagulation due to risk-benefit ratio Chronic RBBB -Stable DVT prophylaxis -Continue enoxaparin 40 daily CODE STATUS -DNR CCA with no intubation Charges/Coding Visit Charges Inpatient E&M: 55450 Subs Hosp L2
[2024-04-08] MEDS: 0.9% Saline Lock 10 ML Syringe IV ×2 (15:56→16:17)
[2024-04-08] MEDS: Furosemide 40 MG/4 ML Vial IV (16:17)
[2024-04-08] MEDS: Acetaminophen 500 MG Tablet PO (23:57)
[2024-04-09] VITALS (8 sets, daily range): BP systolic 140–154; BP diastolic 60–64; PULSE 64–73; RESP 18–19; TEMP 36.5–36.7; O2SAT 88–94
[2024-04-09] MEDS: 0.9% Saline Lock 10 ML Syringe IV (05:25)
[2024-04-09] MEDS: Ipratropium/Albuterol Sulfate 3 ML AMPUL.NEB INHALATION ×2 (07:22→11:12)
[2024-04-09] MEDS: Enoxaparin 40 MG/0.4 ML Syringe SC (08:07)
[2024-04-09] MEDS: Cholecalciferol (VIT D3) 25 MCG TABLET (1,000 UNITS) 50 MCG PO (08:07)
[2024-04-09] MEDS: Metoprolol(XL)Succ 50 MG Tablet PO (08:07)
[2024-04-09] MEDS: Multivitamins,Therapeutic Tablet 1 TABLET PO (08:07)
--- NOTE | 2024-04-09 10:57 | PCM.DC.SUM ---
Providers Date of Admission: 04/07/24 Date of Discharge: 04/09/24 Primary Care Physician: Dr. Rufino Ortega MD Reason For Visit: RSV WITH HYPOXIA Diagnosis Discharge Diagnosis (1) Hypoxia: Status: Acute Code(s): R09.02 - Hypoxemia (2) RSV infection: Status: Acute Code(s): B33.8 - Other specified viral diseases Plan Medications at Discharge Home Medications acetaminophen 500 mg tablet 500 mg PO Q6H PRN Pain 10/10/20 cholecalciferol (vitamin D3) 50 mcg (2,000 unit) capsule 50 mcg PO DAILY 10/10/20 doxylamine succinate 25 mg tablet (Nighttime Sleep-Aid (doxylamine)) 25 mg PO QHS PRN Sleep 10/10/20 metoprolol succinate 50 mg tablet,extended release 24 hr 50 mg PO DAILY 10/10/20 multivitamin 1 tab PO DAILY 10/10/20 omega-3 fatty acids 1,000 mg capsule (Fish Oil Concentrate) 1,000 mg PO DAILY 10/10/20 loperamide 2 mg capsule 2 mg PO Q6H PRN loose stool 07/03/22 prednisone 10 mg tablet 10 mg PO DAILY #30 tabs 04/09/24 Hospital Course Summary of Care Provided Minutes Spent on Discharge: 38 Hospital Course: Patient is an 89-year-old white female who presented to emergency department at [facility] on 04/07/2024 with cough and shortness of breath. Patient had been feeling okay but developed a cough with production in the past 4 to 5 days prior to presentation emergency department and had been coughing up yellow-colored sputum. She denied any chest pain, shortness of breath, fevers, or chills. She went to an urgent care prior to coming emergency department and they checked her oxygen saturation and was found to be below 90% so they informed her she needed to come to the emergency department for further evaluation. Vital signs on arrival showed a temperature of 98.1, heart rate 88, respiratory rate 20, blood pressure was 135/94 and oxygen saturations were 92% on room air. She did end up desatting on room air to 82% and was placed on 2 L nasal cannula which improved her oxygen saturations to 98%. CBC is unremarkable other than a monocytosis and lymphocytosis. Chemistry panel is unremarkable. Chest x-ray showed no evidence of cardiopulmonary process. COVID/flu/RSV panel was positive for RSV on PCR. She was admitted to the medical floor and placed on pulmonary toilet, steroids, incentive spirometer, Pep therapy and therapy services were ordered. Her lung sounds were extremely coarse on hospital day 1 and 2. She did extremely well however and by hospital day 3 on 04/09/2023 for lungs sounded much better. The coarseness had resolved. She was on room air with an oxygen saturation of 93% at rest and 89% with exertion. She states she was feeling well and was anxious to go home. Therapy did try to evaluate the patient however she declined she indicated she was functioning as she does at home and moved quite well with little assistance. She lives with her son so she will not be alone. I did recommend she mask for the next 5 days and to avoid a lot of contact with other people to avoid viral spread. She voiced understanding. She does have Tessalon Perles at home and stated she would continue to take these as she felt they were effective for her. As far as treatment at discharge, she will be discharged with a prednisone taper 40 mg daily x 3 days, 30 mg x 3 days, 20 mg x 3 days and 10 mg x 3 days and then stop. Vascular follow-up with her primary care physician within the next week. Patient was discharged home in stable condition on 04/09/2024. Discharge diagnoses: Acute hypoxia secondary to RSV viral pneumonia-hypoxia resolved Chronic HFpEF secondary to stage II diastolic dysfunction Essential hypertension Hyperlipidemia Insulin resistance PAF Chronic RBBB Physical Exam Const alert, oriented x3, no apparent distress, no limitations, healthy appearing and well nourished; Negative for average body habitus Constitutional Narrative: Obese, elderly, white female, sitting up in bed watching television, appears comfortable, nontoxic, son at the bedside Exam Limitations: no limitations Nutritional Appearance: obese HEENT normocephalic, head/scalp atraumatic and moist oral mucous membranes HEENT Narrative: Mild hearing loss, dentures in place, Mallampati 2, no thrush Eyes EOMs intact bilaterally Eyes Narrative: No scleral icterus Neck supple Neck Narrative: Trachea midline Resp normal respiratory effort, no retractions, no use of accessory muscles and No clear to auscultation bilaterally Resp Narrative: Very few scattered end expiratory wheezes, coarseness was dramatically better and almost resolved, no signs of respiratory distress and patient is now on room air Auscultation: wheezes; Negative for rales or rhonchi Cardio regular rate, regular rhythm, S1 normal heart sound, S2 normal heart sound, no rub, no gallops and no clicks; Negative for no murmurs Cardio Narrative: 2 out of 6 systolic murmur loudest at right upper sternal border GI normal to inspection, nondistended, normoactive bowel sounds, soft to palpation and non-tender Extremity Extremity Narrative: Trace lower extremity edema, no cyanosis or clubbing Skin skin turgor normal, no jaundice, no petechiae and no mottling Neuro oriented x3, moves all extremities and no focal motor deficits Speech: speech normal Psych affect normal Psych Narrative: Eye contact is good and patient appears comfortable Weight / BMI Weight Weight: 77 kg Body Mass Index (BMI) 34.2 ABG / Lab / Microbiology Data 04/08/24 05:26 04/08/24 05:26 Microbiology: Microbiology 04/07/24 18:22 Mucosa - Nose SARS-CoV-2, Influenza & RSV (PCR) - Final RSV D/C Instructions Discharge Diet: No restrictions DC O2, CPAP, BIPAP Needs RN Home O2 Qualification: Home O2 Qualification: Is the patient on home oxygen No 04/09/24 08:37 Home O2 Qualification: AT REST 1- Pulse Ox at rest 93 04/09/24 08:37 Home O2 Qualification: WITH AMBULATION 1- Pulse Ox with ambulation 89 04/09/24 08:37 1- Oxygen Flow Rate with 0 04/09/24 08:37 ambulation Home O2 Discharge instructions: No Meaningful Use Info Meaningful Use Meaningful Use Diagnoses (Choose all that apply): None applicable Ischemic Stroke Statin Dosing Therapy Reference: STATIN DOSE THERAPY REFERENCE: * Patients > 75 years receive moderate or high dose statin therapy. * Patients 75 years or YOUNGER should receive HIGH intensity statin dose unless contraindicated. You will be required to document reason for non-treatment if statin daily dose does not meet guidelines. HIGH DOSE STATIN THERAPY DAILY Atorvastatin > than or = to 40 mg Rosuvastatin > than or = to 20 mg Amlodipine + Atorvastatin > than or = to 2.5/40 mg Ezetimibe + Simvastatin 10/80 mg Simvastatin 80mg Discharge Plan Admission Admit Date/Time: 04/07/24 21:00 Primary Reason for Your Visit: Cough and shortness of breath Attending Provider: Shanika Bruno Primary Care Provider: Rufino Ortega Consulting Providers: Shaheed Burkett Instructions Additional Instructions / Restrictions: 1. Please mask while around people for the next 5 days 2. Please complete prednisone as ordered 3. Please continue to use your incentive spirometer and Acapella device 4-5 times daily for the next week to help your lung function is much as possible while you recover from your RSV infection Discharge Orders/Prescriptions Prescriptions: New prednisone 10 mg tablet 10 mg PO DAILY Qty: 30 0RF Rx Instructions: 4 tablets x 3 days, 3 tablets x 3 days, 2 tablets x 3 days, 1 tablet x 3 days and stop Continued Nighttime Sleep-Aid (doxylamn) 25 mg tablet 25 mg PO QHS PRN (Reason: Sleep) metoprolol succinate 50 mg tablet extended release 24 hr 50 mg PO DAILY cholecalciferol (vitamin D3) 50 mcg (2,000 unit) capsule 50 mcg PO DAILY multivitamin Tablet 1 tab PO DAILY acetaminophen 500 mg tablet 500 mg PO Q6H PRN (Reason: Pain) omega-3 fatty acids [Fish Oil Concentrate] 1,000 mg capsule 1,000 mg PO DAILY loperamide 2 mg capsule 2 mg PO Q6H PRN (Reason: loose stool) Referrals / Follow Up: Rufino Ortega MD [Primary Care Provider] - Within 1 Week Disposition Disposition (needs filled in before D/C Order can be placed): Home, Self Care Charges/Coding Visit Charges Inpatient E&M: 29603 Disch Hosp >30min
[2024-04-11 10:27] LABS: Pathologist Review Reviewed
[2024-04-11 10:47] LABS: Pathologist Review Reviewed
== END 2024-04-09 14:29 | disposition home or self-care (01) | DRG 194 ==
LOC: ED 20:57 → MS3 21:37
PROVIDERS: Physician Assistant; Admitting Provider Family Medicine; Emergency Provider Emergency Medicine; PCP Family Medicine; Visit Provider Internal Medicine
DX: J12.1 Respiratory syncytial virus pneumonia (principal); I50.32 Chronic diastolic (congestive) heart failure; E88.819 Insulin resistance, unspecified; Z66 Do not resuscitate; I11.0 Hypertensive heart disease with heart failure; E66.9 Obesity, unspecified; I48.0 Paroxysmal atrial fibrillation; E78.5 Hyperlipidemia, unspecified; I45.10 Unspecified right bundle-branch block; Z86.16 Personal history of COVID-19; Z79.899 Other long term (current) drug therapy; Z68.33 Body mass index [BMI] 33.0-33.9, adult
CPT/HCPCS: 36415; 71046; 80048; 85025; 87631; 94640; 94668; 99284; A4216; J1940

== ENCOUNTER 2024-04-18 11:34 | Inpatient (IN) | payer MEDICARE, OTHER, SELFPAY ==
[2024-04-18] VITALS (7 sets, daily range): BP systolic 133–157; BP diastolic 36–81; PULSE 56–64; RESP 14–18; TEMP 36.4–36.8; O2SAT 93–95; BMI 34.9; BMI 33.7
--- NOTE | 2024-04-18 12:24 | EX.ED.DYSGE1 ---
HPI History of Present Illness Chief Complaint: Weakness [facility] Medical History COVID-19 (03/2021) Obesity Right bundle branch block (RBBB) Hyperlipidemia Prediabetes Salas's palsy Paroxysmal atrial fibrillation Essential hypertension Osteopenia History of hepatitis Hyperglycemia Osteoarthritis Home Medications ?Medication ?Instructions ?Recorded ?Last Taken ?Type acetaminophen 500 mg tablet 500 mg PO Q6H PRN Pain 10/10/20 Unknown History cholecalciferol (vitamin D3) 50 50 mcg PO DAILY 10/10/20 Unknown History mcg (2,000 unit) capsule doxylamine succinate 25 mg tablet 25 mg PO QHS PRN Sleep 10/10/20 Unknown History (Nighttime Sleep-Aid (doxylamine)) metoprolol succinate 50 mg 50 mg PO DAILY HTN 10/10/20 Unknown History tablet,extended release 24 hr multivitamin 1 tab PO DAILY 10/10/20 Unknown History omega-3 fatty acids 1,000 mg 1,000 mg PO DAILY 10/10/20 Unknown History capsule (Fish Oil Concentrate) loperamide 2 mg capsule 2 mg PO Q6H PRN loose stool 07/03/22 Unknown History prednisone 10 mg tablet 10 mg PO DAILY UNKNOWN #30 tabs 04/09/24 Unknown Rx benzonatate 100 mg capsule 200 mg PO TID PRN PRN cough 04/18/24 Unknown History Allergy/AdvReac Type Severity Reaction Status Date / Time propoxyphene (From Allergy Unknown unknown Verified 04/18/24 11:36 Darvocet-N) Sulfa (Sulfonamide Allergy Unknown unknown Verified 04/18/24 11:36 Antibiotics) Family History Mother Heart disease Father Heart disease Sister Heart disease Breast cancer Aunt Breast cancer Diabetes Grandmother Cancer stomach Surgical History History of bilateral cataract extraction History of eyelid surgery 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 (~2004) Social History Smoking Status: Never smoker alcohol intake: never substance use type: does not use caffeine: Yes Type: coffee Number of servings: 1 EXAM Physical Exam Const Vital Signs: 12/31/24 11:36 04/18/24 12:51 04/18/24 13:00 Temperature 97.6 F L Temperature Source Oral Pulse Rate 64 59 L Respiratory Rate 14 18 Respiratory Effort Normal Non-Labored Respiratory Pattern Normal Blood Pressure 143/36 H 156/81 H Blood Pressure Mean 71 103 Pulse Ox 93 Oxygen Delivery Method Room Air 04/18/24 15:00 Temperature Temperature Source Pulse Rate 56 L Respiratory Rate 17 Respiratory Effort Respiratory Pattern Blood Pressure 157/57 H Blood Pressure Mean 83 Pulse Ox 95 Oxygen Delivery [place] [facility] [place] Medical decision making narrative: HISTORY OF PRESENT ILLNESS: 89-year-old female presents with weakness. Notes weakness to bilateral lower extremities. Notes RSV infection diagnosed 1 week ago. States she has weakness in both legs and started yesterday. Notes difficulty walking as well as a headache. She further states this began several days ago. Today she noted difficulty ambulating. Notes diffuse lower extremity weakness but denies focal weakness or loss sensation. Denies slurred speech or facial drooping. Denies any head trauma. REVIEW OF SYSTEMS: Pertinent positives: Difficulty ambulating, bilateral lower extremity weakness, headache Pertinent negatives: Vomiting, fever, urinary complaints PHYSICAL EXAM: Nursing triage notes reviewed, Vital signs reviewed Constitutional: please see mdm HENT: MMM Eyes: Pupils equal round and reactive to light, Extraocular muscles intact Neck: No stridor, no JVD, full neck ROM Lungs: Clear to auscultation, No wheezing or rales. No increased work of breathing, no conversational dyspnea, no accessory muscle use, no nasal flaring. No respiratory distress noted Heart: Regular rate and rhythm, No murmurs, No rubs and No gallops, 2+ distal pulses (radial, femoral, posterior tibial) in all extremities Abdomen: Soft, there is no tenderness, rigidity, rebound or guarding, no obvious peritoneal signs, no palpable pulsatile abdominal masses, no auscultated abdominal bruit : No CVAT Extremities: No edema Neuro: Patient was alert, oriented to person place and time, no obvious cranial nerve deficits, no slurred speech, noted weakness in left upper extremity with drift, intact strength and sensation in lower extremities. NIH 1. Skin: No rash or lesions noted MEDICAL DECISION MAKING: Chief Complaint: Difficulty ambulating, weakness External records reviewed: Reviewed prior hospitalization Factors affecting care: Hypertension, hyperlipidemia, HFpEF Social determinants of health: Elderly History obtained from others: Patient's son, EMS Consults: Internal medicine (Dr. Diamond) discussed admitting the patient to PCU full MDM Narrative: The patient was initially hemodynamically stable, afebrile and nontoxic-appearing. Exam with left upper extremity weakness, NIH of 1 I considered the following differential diagnosis: ICH, CVA, TIA, electrolyte disturbance, UTI, pneumonia, anemia. I obtained a broad lab and imaging workup to further elucidate etiology of the patient's complaints. After initial exam with NIH of 1 and left upper extremity weakness concern for CVA. The patient cannot remember or identify last known well and as such stroke alert was not activated. The patient is not a candidate for TNK or thrombectomy at this time given unknown initiation of symptoms and lack of NIH greater than 6 for thrombectomy ALL IMAGES (IF OBTAINED) HAVE BEEN PERSONALLY REVIEWED AND INTERPRETED BY MYSELF. CBC without leukocytosis, severe anemia, no thrombocytopenia. BMP without evidence of significant electrolyte abnormalities, no anion gap, no acute kidney injury. LFTs show no evidence of hepatobiliary pathology. High-sensitivity troponin is negative, no evidence of myocardial ischemia I have personally reviewed the patient's chest x-ray. Chest x-ray is unremarkable for pulmonary edema, pneumothorax, pneumonia or focal cardiopulmonary abnormality. COVID/flu/RSV negative CT/CTA of the head neck showed no evidence of ICH, mass, large vessel occlusion or dissection urinalysis shows no evidence of urinary inflammation suggestive of UTI The synthesis of the patient's history, physical exam, labs images suggest adult failure to thrive as well as likely subacute CVA given left upper extremity weakness and NIH of 1. Patient was admitted for potential interventions including but not limited to MRI, risk factor modification, PT/OT, possible placement. The patient and/or family, caregivers express understanding. The patient and/or family, caregivers agrees with the plan. Shared decision making: I will have a discussion with the patient and or visitors regarding risk/benefits of further testing or admission. They will be made aware of of the risk/benefits inherent in this decision they will be given the opportunity to voice understanding. Total critical care time today provided was at least 0 minutes. This excludes separately billable procedures. Critical care time (if documented) is secondary to the patient having high probability of clinically significant/life threatening deterioration in the patient's condition which required my urgent intervention. Impression: 1. Acute CVA 2. Hyperbilirubinemia 3. Weakness Dispo: Admit to PCU for This note was generated with [employer] dictation software. It may contain incorrect words, spelling, and punctuation that were not noted in review of the chart prior to signing. Lab Data Labs: Laboratory Results - last 24 hr 04/18/24 04/18/24 11:47 14:20 WBC 8.0 RBC 4.59 Hgb 14.1 Hct 43.2 MCV 94.1 MCH 30.7 MCHC 32.6 RDW Std Deviation 42.5 RDW Coeff of Tanner 12.3 Plt Count 81 L MPV 10.5 Differential Comment SCANNED Sodium 138 Potassium 3.9 Chloride 101 Carbon Dioxide 30.0 Anion Gap 8 BUN 14 Creatinine 0.91 Estim Creat Clear Calc 38.84 Est GFR (MDRD) Af Amer 75 Est GFR (MDRD) Non-Af 62 BUN/Creatinine Ratio 15.4 Glucose 145 H Calcium 8.8 Total Bilirubin 1.30 H AST 18 ALT 14 Alkaline Phosphatase 61 Troponin I High Sens 38 Total Protein 7.0 Albumin 3.4 Globulin 3.6 Albumin/Globulin Ratio 0.9 Urine Color Yellow Urine Clarity Clear Urine pH 7.0 Ur Specific [place] 1.010 Urine Protein Negative Urine Glucose (UA) Normal Urine Ketones Negative Urine Occult Blood Negative Urine Nitrite Negative Urine Bilirubin Negative Urine Urobilinogen Normal Ur Leukocyte Esterase Negative Urine RBC 0 SEEN Urine WBC 0 SEEN Ur Squamous Epith Cells 0 SEEN Urine Bacteria 0 SEEN Urine Mucus 0 SEEN Radiography Diagnostic Testing: Clinical Impression(s) from Imaging Studies Head/Neck CTA 04/18/24 12:46 IMPRESSION: 1. No acute intracranial process. If symptoms persist, MRI of the brain is recommended. 2. 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 3. Approximately 70% stenosis at the origin of the right internal carotid artery is 60% stenosis of the left side. 4. Otherwise no intracranial great vessel stenosis is seen. Electronically Signed: Fran Bran MD at 15:01 EST , Chest X-Ray 04/18/24 13:22 IMPRESSION: No radiographic evidence of acute cardiopulmonary disease. Electronically Signed: Fran Bran MD at 13:43 EST , Discharge Plan Triage Chief Complaint: Weakness ED Provider: [place] Dx/Rx/DC Orders Primary Care Provider: Rufino Ortega
--- NOTE | 2024-04-18 12:46 | CT_ITS ---
INDICATION: left arm weakness EXAMINATION: CT BRAIN WITHOUT CONTRAST, CTA HEAD, AND CTA NECK TECHNIQUE: Noncontrast axial images were obtained of the brain. Subsequently, routine carotid CT angiogram protocol was performed without and with IV contrast. In addition, images were obtained of the [place]. NASCET criteria using the distal ICAs for comparison were used for evaluation of stenoses. 3D reconstructions were reviewed. The protocol utilizes one or more of the following dose reduction techniques: automated exposure control, adjustment of mA and/or kV according to patient size,and/or use of iterative reconstruction technique. IV Contrast dosage and agent: 100 cc of [id number]. COMPARISON: No relevant prior comparison study available FINDINGS: --CT BRAIN WITHOUT CONTRAST: BRAIN PARENCHYMA: No intra- or extra-axial hemorrhage. No evidence of acute infarct. No intracranial mass or mass effect. There is preservation of the lee/white matter interface. Mild periventricular deep white matter changes likely due to microvascular disease. Posterior fossa structures are unremarkable. CSF SPACES: Appropriate for age. No hydrocephalus. Basal cisterns are patent. CALVARIUM, SKULL BASE, PARANASAL SINUSES AND MASTOID AIR CELLS: Mucosal thickening of the ethmoids and maxillary sinuses. ASPECTS Score for Acute Strokes: 10 --CTA NECK: AORTIC ARCH AND BRANCHES: Normal anatomy, patent. RIGHT CCA: No occlusion, significant stenosis or dissection. RIGHT ICA: Atherosclerotic calcifications of the origin of the right internal carotid artery with approximately 70% stenosis. LEFT CCA: Atherosclerotic calcifications of the left bulb region extending to the proximal left internal carotid artery with approximately 60% stenosis LEFT ICA: No occlusion, significant stenosis or dissection of the distal ICA. RIGHT VERTEBRAL ARTERY: No occlusion, significant stenosis or dissection. LEFT VERTEBRAL ARTERY: Occluded left vertebral artery from its origin reconstituted at the level of the basilar artery. NECK SOFT TISSUES: Unremarkable. --CTA HEAD: --Anterior circulation: ICAs: Atherosclerotic calcifications of the cavernous internal carotid arteries with moderate stenosis. ACAs: No significant stenosis at the visualized segments. ACOM: Not visualized. MCAs: Minimal irregularity of the distal M1 segments bilaterally without significant stenosis. --Posterior circulation: PCOMs: Not visualized bilaterally. manager visual: No significant stenosis at the visualized segments. BASILAR ARTERY: No significant stenosis. 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 No evidence of intracranial aneurysm or vascular malformation. CT/CTA Head AND Neck W/ Contrast IMPRESSION: 1. No acute intracranial process. If symptoms persist, MRI of the brain is recommended. 2. 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 3. Approximately 70% stenosis at the origin of the right internal carotid artery is 60% stenosis of the left side. 4. Otherwise no intracranial great vessel stenosis is seen. Electronically Signed: Fran Bran MD at 15:01 EST ,
--- NOTE | 2024-04-18 12:47 | EKG12_ITS ---
Test Reason : WEAKNESS Blood Pressure : */* mmHG Vent. Rate : 55 BPM Atrial Rate : 55 BPM P-R Int : 126 ms QRS Dur : 144 ms QT Int : 474 ms P-R-T Axes : 83 41 12 degrees QTcB Int : 453 ms Sinus bradycardia with Premature supraventricular complexes Right bundle branch block Abnormal ECG Confirmed by FAM MARTE, MARIELENA ([id number]), primer expeditor and drier JEAN PIERRE VIEYRA ([id number]) on 04/20/2024 6:11:36 AM Referred By: Confirmed By: MARIELENA OTTO MD
[2024-04-18 13:02] LABS: Hematocrit 43.2 % (37-47); Hemoglobin 14.1 g/dL (12.0-15.0); Mean Corp Hgb Conc 32.6 g/dL (32-36); Mean Corpuscular Hgb 30.7 pg (27.0-32.0); Mean Corpuscular Volume 94.1 fL (81-99); Mean Platelet Vol. 10.5 fl (6.2-12.0); POSITIVE COUNT YES; Platelet Count 81 K/mm3 (150-450); RBC Distribution Width CV 12.3 % (11.6-14.6); RBC Distribution Width SD 42.5 fl (35.1-43.9); Red Blood Count 4.59 M/mm3 (4.2-5.4)
[2024-04-18 13:03] LABS: Scan Indicated on CBC? Y/N YES- FLAGS NOTED
--- NOTE | 2024-04-18 13:22 | RAD_ITS ---
INDICATION: left arm weakness EXAMINATION/TECHNIQUE: X-RAY - XR Chest 1 View COMPARISON: Prior study dated: 04/07/2024 FINDINGS: LINES/DEVICES: None. LUNGS: No consolidation, edema or effusion. No pneumothorax. MEDIASTINUM AND CARDIOVASCULAR STRUCTURES: Cardiac silhouette not enlarged. Atherosclerotic calcifications and mild tortuosity of the thoracic aorta. Central airways and mediastinal contour are unremarkable. BONES AND SOFT TISSUES: No demonstrated acute osseous changes. RAD/Chest 1 View (Portable) IMPRESSION: No radiographic evidence of acute cardiopulmonary disease. Electronically Signed: Fran Bran MD at 13:43 EST ,
[2024-04-18 13:23] LABS: ALB/GLOB Ratio 0.9 RATIO (0.9-2.4); AST(SGOT) 18 U/L (15-37); Alanine Aminotransfer ALT/SGPT 14 U/L (13-56); Albumin, Serum 3.4 g/dL (3.2-5.0); Alkaline Phosphatase 61 U/L (45-117); Anion Gap 8 (5-15); BUN 14 mg/dL (7-18); BUN/Creat Ratio 15.4 RATIO (10-20); Calcium,Total 8.8 mg/dL (8.5-10.1); Chloride 101 mmol/L (98-107); Creatinine, Serum 0.91 mg/dL (0.55-1.02); EST Glomerular Filtration Rate 62 mL/min (>60); Est Glom Filt Rate - Afr Amer 75 mL/min (>60); Estimated Creatinine Clearance 38.84 ml/min; Globulin 3.6 g/dL (2.2-4.2); Glucose 145 mg/dL (74-106); Potassium 3.9 mmol/L (3.5-5.1); Sodium Level 138 mmol/L (136-145); Troponin-I HS 38 pg/mL (3.0-54.0)
[2024-04-18 13:25] LABS: Differential Comment SCANNED
[2024-04-18 14:35] LABS: Bacteria 0 SEEN /hpf (None Seen); Mucous, Urine 0 SEEN /hpf (<or=2+); Red Blood Cells-Urine 0 SEEN /hpf (0-5); Squamous Epithelial Cells - UA 0 SEEN /hpf (5-10); White Blood Cells 0 SEEN /hpf (0-5)
[2024-04-18 14:43] LABS: Color, Urine Yellow (Yellow); Glucose, Dipstick Normal (Normal); Ketone-Dipstick Negative (Negative); Leukocyte Esterase-Dipstick Negative /ul (Negative); Nitrite-Dipstick Negative (Negative); Occult Blood-Urine Negative /ul (Negative); Protein-Dipstick Negative (Negative); Urine Bilirubin Dipstick Negative (Negative); Urine Clarity Clear (Clear); Urine Urobilinogen Normal (Normal)
--- NOTE | 2024-04-18 15:50 | HP.PCM.HOS_ITS ---
HPI - General General Date of Admission: 04/18/24 Date of Service: 04/18/24 Chief Complaint: Weakness HPI Narrative VINCENT KHANNA, is a 89 F who presents with weakness. This is an 89-year-old female with history of atrial fibrillation who was just hospitalized here for RSV and went home. She went home and was actually doing fairly well up until the past couple days where she was noticeably weak in her legs. Family was concerned and brought her to the hospital. It was noted in the emergency room that she was having some left-sided drift so patient underwent CTA of the head and neck that showed no acute process but occluded left vertebral artery and approximately 70% stenosis of the right internal carotid and 60% stenosis of the left side. But given her drift and the concern for stroke, the hospitalist service was contacted for admission. [facility] Medical History COVID-19 (03/2021) Obesity Right bundle branch block (RBBB) Hyperlipidemia Prediabetes Salas's palsy Paroxysmal atrial fibrillation Essential hypertension Osteopenia History of hepatitis Hyperglycemia Osteoarthritis Home Medications ?Medication ?Instructions ?Recorded ?Last Taken ?Type acetaminophen 500 mg tablet 500 mg PO Q6H PRN Pain 10/10/20 Unknown History cholecalciferol (vitamin D3) 50 50 mcg PO DAILY 10/10/20 Unknown History mcg (2,000 unit) capsule doxylamine succinate 25 mg tablet 25 mg PO QHS PRN Sleep 10/10/20 Unknown History (Nighttime Sleep-Aid (doxylamine)) metoprolol succinate 50 mg 50 mg PO DAILY HTN 10/10/20 Unknown History tablet,extended release 24 hr multivitamin 1 tab PO DAILY 10/10/20 Unknown History omega-3 fatty acids 1,000 mg 1,000 mg PO DAILY 10/10/20 Unknown History capsule (Fish Oil Concentrate) loperamide 2 mg capsule 2 mg PO Q6H PRN loose stool 07/03/22 Unknown History prednisone 10 mg tablet 10 mg PO DAILY UNKNOWN #30 tabs 04/09/24 Unknown Rx benzonatate 100 mg capsule 200 mg PO TID PRN PRN cough 04/18/24 Unknown History Allergy/AdvReac Type Severity Reaction Status Date / Time propoxyphene (From Allergy Unknown unknown Verified 04/18/24 11:36 Darvocet-N) Sulfa (Sulfonamide Allergy Unknown unknown Verified 04/18/24 11:36 Antibiotics) Family History Mother Heart disease Father Heart disease Sister Heart disease Breast cancer Aunt Breast cancer Diabetes Grandmother Cancer stomach Surgical History History of bilateral cataract extraction History of eyelid surgery 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 (~2004) Social History Smoking Status: Never smoker alcohol intake: never substance use type: does not use caffeine: Yes Type: coffee Number of servings: 1 ROS ROS Narrative Dry cough. As noted chronically that she has some incontinence with coughing. No receptive nor expressive aphasia. All review of systems were negative except as mentioned above in the history of present illness and the other review of systems. Vital Signs Vital Signs Vital Signs: 04/18/24 11:36 04/18/24 12:51 04/18/24 13:00 Temperature 36.4 C L Temperature Source Oral Pulse Rate 64 59 L Respiratory Rate 14 18 Respiratory Effort Normal Non-Labored Respiratory Pattern Normal Blood Pressure 143/36 H 156/81 H Blood Pressure Mean 71 103 Pulse Ox 93 Oxygen Delivery Method Room Air 04/18/24 15:00 04/18/24 15:29 Temperature 36.8 C Temperature Source Pulse Rate 56 L 61 Respiratory Rate 17 17 Respiratory Effort Respiratory Pattern Blood Pressure 157/57 H 135/65 H Blood Pressure Mean 83 88 Pulse Ox 95 94 Oxygen Delivery Method Weight Weight: 78.5 kg Body Mass Index (BMI) 34.9 Physical Exam Const alert and no apparent distress HEENT normocephalic, head/scalp atraumatic, hearing grossly normal bilaterally and moist oral mucous membranes Eyes PERRL, EOMs intact bilaterally and conjunctivae normal Neck no lymphadenopathy Neck Narrative: No thyromegaly Resp normal respiratory effort, no retractions, no use of accessory muscles and clear to auscultation bilaterally Cardio regular rate, regular rhythm, S1 normal heart sound and S2 normal heart sound GI normal to inspection, nondistended, normoactive bowel sounds, soft to palpation, non-tender, non-distended and hepatosplenomegaly Extremity normal to inspection, full ROM and no clubbing, cyanosis or edema Neuro moves all extremities and no focal motor deficits Neuro Narrative: Muscle strength 4 out of 5 in right upper and right lower extremity. 4-5 in the left upper and left lower extremity. Sensation grossly intact throughout. Sensorium / Orientation: awake and alert Psych affect normal Results Lab / Micro Data Attestation: I reviewed the patient's lab results. 04/18/24 11:47 04/18/24 11:47 Labs: Laboratory Results - last 24 hr 04/18/24 11:47: WBC 8.0, RBC 4.59, Hgb 14.1, Hct 43.2, MCV 94.1, MCH 30.7, MCHC 32.6, RDW Std Deviation 42.5, RDW Coeff of Tanner 12.3, Plt Count 81 L, MPV 10.5, Differential Comment SCANNED, Sodium 138, Potassium 3.9, Chloride 101, Carbon Dioxide 30.0, Anion Gap 8, BUN 14, Creatinine 0.91, Estim Creat Clear Calc 38.84, Est GFR (MDRD) Af Amer 75, Est GFR (MDRD) Non-Af 62, BUN/Creatinine Ratio 15.4, Glucose 145 H, Calcium 8.8, Total Bilirubin 1.30 H, AST 18, ALT 14, Alkaline Phosphatase 61, Troponin I High Sens 38, Total Protein 7.0, Albumin 3.4, Globulin 3.6, Albumin/Globulin Ratio 0.9 04/18/24 14:20: Urine Color Yellow, Urine Clarity Clear, Urine pH 7.0, Ur Specific [place] 1.010, Urine Protein Negative, Urine Glucose (UA) Normal, Urine Ketones Negative, Urine Occult Blood Negative, Urine Nitrite Negative, Urine Bilirubin Negative, Urine Urobilinogen Normal, Ur Leukocyte Esterase Negative, Urine RBC 0 SEEN, Urine WBC 0 SEEN, Ur Squamous Epith Cells 0 SEEN, Urine Bacteria 0 SEEN, Urine Mucus 0 SEEN Micro: Microbiology 04/18/24 13:01 Mucosa - Nose SARS-CoV-2, Influenza & RSV (PCR) - Final Imaging Radiology Impression Head/Neck CTA 04/18/24 12:46 IMPRESSION: 1. No acute intracranial process. If symptoms persist, MRI of the brain is recommended. 2. 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 3. Approximately 70% stenosis at the origin of the right internal carotid artery is 60% stenosis of the left side. 4. Otherwise no intracranial great vessel stenosis is seen. Electronically Signed: Fran Bran MD at 15:01 EST , Chest X-Ray 04/18/24 13:22 IMPRESSION: No radiographic evidence of acute cardiopulmonary disease. Electronically Signed: Fran Bran MD at 13:43 EST , Assessment & Plan Assessment/Plan (1) CVA (cerebral vascular accident): PLAN: Onset was likely 1 to 2 days ago. Clinically is concerning for stroke with left-sided weakness as well as noted right internal carotid stenosis about 70%. Will start patient on aspirin and atorvastatin. Check an MRI and echocardiogram. Physical, occupational and speech therapy. Patient will be n.p.o. until she passes her bedside swallow evaluation. Consult [facility] teleneurology. PLAN: Plan Recent RSV: Patient was hospitalized here for RSV and then recently discharged. Was doing well from the family standpoint but got worse over the past couple days. Chronic conditions * HFpEF: Compensated this time. Continue with metoprolol succinate * Hypertension: Stable continue with metoprolol. VTE prophylaxis with enoxaparin CODE STATUS: Per previous admission: Patient DNR Comfort Care arrest no intubation. Discussed with the patient's son at bedside Charges/Coding Visit Charges Inpatient E&M: 48234 Init Hosp L3
--- NOTE | 2024-04-18 16:01 | ECHOCS_ITS ---
Reason For Study: TIA/CVA Procedure This was a 2D Doppler, Color Flow transthoracic echocardiogram. The study was technically difficult. Contrast injection was performed. Exam performed portable in patient room. Left Ventricle Normal LV size. Left ventricular systolic function is normal. The left ventricular ejection fraction is 70 %. Stage 1 diastolic dysfunction. No regional wall motion abnormalities noted. Right Ventricle Normal RV size. Normal systolic function. Atria Normal left atrium. Normal right atrium. Mitral Valve Normal mitral valve. Tricuspid Valve Normal tricuspid valve. Mild tricuspid valve insufficiency. Pulmonary artery systolic pressure is 36 mmHg. Aortic Valve The aortic valve is not well visualized. Pulmonic Valve Normal pulmonic valve. Great Vessels Normal aortic root. The pulmonary artery is normal size. Inferior vena cava collapse with respiration. Pericardium/Pleural No pericardial effusion. Medication Diluted definity 1ml given slow IV push to enhance endocardial definition. MMode/2D Measurements & Calculations LVIDd: 4.3 cm IVSd: 0.71 cm LAV(MOD-bp): 72.1 ml LVIDs: 3.1 cm LVPWd: 0.55 cm RVDd: 3.7 cm FS: 29.5 % LAV(MOD-bp) Indexed: 41.6 ml/m2 LAV(MOD-sp2): 68.9 ml LAV(MOD-sp4): 69.6 ml LA dimension(2D): 4.0 cm LA A4 area: 23.3 cm2 RA A4 area: 13.6 cm2 TAPSE: 1.5 cm Time Measurements MV dec time: 0.31 sec Doppler Measurements & Calculations MV E max mayank: 76.5 cm/sec Lat Peak E' Mayank: 9.5 cm/sec Med Peak E' Mayank: 7.2 cm/sec MV A max mayank: 111.3 cm/sec E/E' lat: 8.1 E/E' med: 10.7 MV E/A: 0.69 MV V2 max: 114.8 cm/sec MV P1/2t max mayank: 72.9 cm/sec Ao V2 max: 190.7 cm/sec MV max P.3 mmHg MV P1/2t: 92.1 msec Ao max P.6 mmHg MV V2 mean: 54.9 cm/sec MV dec slope: 232.0 cm/sec2 Ao V2 mean: 130.7 cm/sec MV mean P.4 mmHg Ao mean P.8 mmHg MV V2 VTI: 24.7 cm MVA(P1/2t): 2.4 cm2 Ao V2 VTI: 30.4 cm AV (velocity ratio): 0.74 LV V1 max: 122.1 cm/sec PA V2 max: 102.0 cm/sec TR max myaank: 288.4 cm/sec LV V1 max P.0 mmHg TR max P.3 mmHg LV V1 mean P.2 mmHg LV V1 mean: 82.8 cm/sec LV V1 VTI: 22.4 cm ECHO/Echo Complete W/ Contrast Interpretation Summary Normal LV size. Left ventricular systolic function is normal. The left ventricular ejection fraction is 70 %. Stage 1 diastolic dysfunction. Contrast injection was performed. Ordering Physician: Jose Diamond Performed By: Sidney Barron RCS
--- NOTE | 2024-04-18 16:01 | MRI_ITS ---
We are attempting to reach an attending provider to discuss findings. An addendum with communication details will be sent when the communication is complete. STUDY: MRI BRAIN WITHOUT CONTRAST REASON FOR EXAM: Female, 89 years old. CVA TECHNIQUE: Standardized multiplanar fat and water weighted pulse sequences were obtained. COMPARISON: CT of the brain April 18, 2024 FINDINGS: Atrophy and moderate to severe periventricular white matter ischemic changes. . There are multiple tiny foci of restricted diffusion in the right frontal and parietal lobes, left parietal lobe which may be acute ischemic changes Normal bilateral basal ganglia. Normal thalami. There is no extra-axial fluid accumulation. Normal flow voids within the major intracranial circulation suggesting patency by spin echo criteria. Normal sella turcica, pituitary gland, infundibular stalk, optic chiasm and hypothalamus. Normal tectal plate and pineal gland. Normal midbrain, sandeep and medulla. Normal cerebellum. Normal basal cisterns. Normal bilateral temporal bones. Normal bilateral internal auditory canals. Postsurgical changes of the orbits.. There is mild mucosal thickening of the bilateral maxillary and ethmoid sinuses.. Normal calvarium and skull base. Normal visualized soft tissue structures. Normal visualized upper cervical spine. MRI/Brain without Contrast IMPRESSION: Moderate periventricular white matter ischemic changes with multiple foci of acute ischemia. In the right frontal and parietal lobes as well as the left parietal lobe raising question of embolic disease. Clinical correlation recommended Electronically Signed: Rufino Olivares MD at 19:13 EST ,
[2024-04-18] MEDS: Aspirin 325 MG Tablet PO (18:56)
--- NOTE | 2024-04-18 19:49 | PCM.HOSP.N ---
Hospitalist Note Called by radiology due to abn MRI with it showing moderate periventricular white matter ischemic changes along with multiple foci of acute ischemia in the right frontal and parietal lobes as well as in the left parietal lobe consistent with embolic disease. Patient has known history of paroxysmal atrial fibrillation and was not anticoagulated due to risk-benefit ratio. May need to reevaluate this given current events. Will continue aspirin for now and await neurology input for assistance with medical therapy recommendations. Patient is currently on aspirin 81 mg daily and atorvastatin 40 mg daily.
[2024-04-18] MEDS: Atorvastatin Calcium 40 MG Tablet PO (20:12)
[2024-04-18] MEDS: MELATONIN 10 MG TABLET PO (22:25)
[2024-04-19] VITALS (9 sets, daily range): BP systolic 102–151; BP diastolic 52–76; PULSE 61–80; RESP 16–18; TEMP 36.2–36.8; O2SAT 86–98; BMI 33.7
[2024-04-19 05:45] LABS: Cholesterol 133 mg/dL (200); High Density Lipoprotein 66 mg/dL; Triglycerides 106 mg/dL; Very Low Density Lipoprotein 21 mg/dL (5-40)
--- NOTE | 2024-04-19 08:40 | STROKE.CONS ---
Assessment and Plan: Stroke Assessment/Plan VINCENT KHANNA is a 89 F with a history of Afib not on anticoagulation, HTN, HLD, prediabetes, recent RSV infection who presents for evaluation of left sided weakness. Not a TNK or thrombectomy candidate. Neurological examination shows mild left upper extremity drift. 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 MRI Brain:R frontoparietal, left parietal stroke. LDL: 46, hbA1C pending. Suspect her strokes are more likely from atrial fibrillation that her ICA disease. Currently on ASA. Recommend starting AC after discussing with her general internal medicine doctor if she has paroxysmal AFib Please obtain ECHO, HbA1C. Can obtain carotid duplex to determine degree of stenosis. Aggressive control of stroke risk factors - HTN, HLD, prediabetes Continue statin PT,OT evaluation I spent 75 min in evaluation and management of thsi patient. Thanks for the consult HPI Consult Data Date of Consult: 04/19/24 HPI Narrative HPI Narrative: VINCENT KHANNA, is a 89 F with history of atrial fibrillation not on anticoagulation, hypertension, hyperlipidemia, prediabetes who was just hospitalized here for RSV and was discharged. She went home and was doing fairly well up until the past couple days where she was weak in her legs. In the emergency room that she was having some left-sided drift so patient underwent CTA of the head and neck that showed no acute process but occluded left vertebral artery and approximately 70% stenosis of the right internal carotid and 60% stenosis of the left side. But given her drift and the concern for stroke, she was admitted. family reports that her left side was weaker. [facility] Medical History COVID-19 (03/2021) Obesity Right bundle branch block (RBBB) Hyperlipidemia Prediabetes Salas's palsy Paroxysmal atrial fibrillation Essential hypertension Osteopenia History of hepatitis Hyperglycemia Osteoarthritis Home Medications ?Medication ?Instructions ?Recorded ?Last Taken ?Type acetaminophen 500 mg tablet 500 mg PO Q6H PRN Pain 10/10/20 Unknown History cholecalciferol (vitamin D3) 50 50 mcg PO DAILY supplement 10/10/20 Unknown History mcg (2,000 unit) capsule doxylamine succinate 25 mg tablet 25 mg PO QHS PRN Sleep 10/10/20 Unknown History (Nighttime Sleep-Aid (doxylamine)) metoprolol succinate 50 mg 50 mg PO DAILY HTN 10/10/20 Unknown History tablet,extended release 24 hr multivitamin 1 tab PO DAILY supplement 10/10/20 Unknown History omega-3 fatty acids 1,000 mg 1,000 mg PO DAILY cholesterol 10/10/20 Unknown History capsule (Fish Oil Concentrate) loperamide 2 mg capsule 2 mg PO Q6H PRN loose stool 07/03/22 Unknown History prednisone 10 mg tablet 10 mg PO DAILY UNKNOWN #30 tabs 04/09/24 Unknown Rx benzonatate 100 mg capsule 200 mg PO TID PRN PRN cough 04/18/24 Unknown History Allergy/AdvReac Type Severity Reaction Status Date / Time propoxyphene (From Allergy Unknown unknown Verified 04/18/24 11:36 Darvocet-N) Sulfa (Sulfonamide Allergy Unknown unknown Verified 04/18/24 11:36 Antibiotics) Family History Mother Heart disease Father Heart disease Sister Heart disease Breast cancer Aunt Breast cancer Diabetes Grandmother Cancer stomach Surgical History History of bilateral cataract extraction History of eyelid surgery 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 (~2004) Social History (Updated 04/18/24 @ 16:09 by Silvana Grayson) housing: apartment Smoking Status: Never smoker alcohol intake: never substance use type: does not use caffeine: Yes Type: coffee Number of servings: 1 Vital Signs Vital Signs Vital Signs: 04/18/24 11:36 04/18/24 12:51 04/18/24 13:00 Temperature 97.6 F L Temperature Source Oral Pulse Rate 64 59 L Pulse Strength Respiratory Rate 14 18 Respiratory Effort Normal Non-Labored Respiratory Depth Respiratory Pattern Normal Blood Pressure 143/36 H 156/81 H Blood Pressure Mean 71 103 Blood Pressure Source Blood Pressure Position Blood Pressure Location Pulse Ox 93 Oxygen Delivery Method Room Air Oxygen Flow Rate (L/min) 04/18/24 15:00 04/18/24 15:29 04/18/24 16:31 Temperature 98.2 F 97.6 F L Temperature Source Oral Pulse Rate 56 L 61 60 Pulse Strength Respiratory Rate 17 17 15 Respiratory Effort Respiratory Depth Respiratory Pattern Blood Pressure 157/57 H 135/65 H 133/59 H Blood Pressure Mean 83 88 83 Blood Pressure Source Monitor Blood Pressure Position Semi-Fowlers Blood Pressure Location Right Arm Pulse Ox 95 94 93 Oxygen Delivery Method Room Air Oxygen Flow Rate (L/min) 04/18/24 16:51 04/18/24 20:10 04/18/24 20:10 Temperature 98.2 F Temperature Source Temporal Pulse Rate 62 Pulse Strength Normal (2+) Respiratory Rate 16 Respiratory Effort Normal Non-Labored Respiratory Depth Normal Respiratory Pattern Normal Blood Pressure 142/52 H Blood Pressure Mean 82 Blood Pressure Source Monitor Blood Pressure Position Semi-Fowlers Blood Pressure Location Right Arm Pulse Ox 94 Oxygen Delivery Method Room Air Room Air Oxygen Flow Rate (L/min) 04/18/24 20:10 04/18/24 20:33 04/19/24 00:30 Temperature 97.1 F L Temperature Source Temporal Pulse Rate 73 Pulse Strength Respiratory Rate 18 Respiratory Effort Normal Non-Labored Respiratory Depth Normal Respiratory Pattern Normal Blood Pressure 151/57 H Blood Pressure Mean 88 Blood Pressure Source Monitor Blood Pressure Position Semi-Fowlers Blood Pressure Location Right Arm Pulse Ox 94 94 Oxygen Delivery Method Room Air Nasal Cannula Nasal Cannula Oxygen Flow Rate (L/min) 2 2 04/19/24 04:30 04/19/24 04:30 04/19/24 05:01 Temperature 97.1 F L Temperature Source Temporal Pulse Rate 61 Pulse Strength Respiratory Rate 16 Respiratory Effort Normal Non-Labored Respiratory Depth Normal Respiratory Pattern Normal Blood Pressure 135/53 H Blood Pressure Mean 80 Blood Pressure Source Monitor Blood Pressure Position Semi-Fowlers Blood Pressure Location Right Forearm Pulse Ox 98 86 Oxygen Delivery Method Room Air Room Air Room Air Oxygen Flow Rate (L/min) 04/19/24 08:30 Temperature 98.0 F Temperature Source Oral Pulse Rate 64 Pulse Strength Respiratory Rate 16 Respiratory Effort Respiratory Depth Respiratory Pattern Blood Pressure 147/58 H Blood Pressure Mean 87 Blood Pressure Source Monitor Blood Pressure Position Semi-Fowlers Blood Pressure Location Right Arm Pulse Ox 95 Oxygen Delivery Method Nasal Cannula Oxygen Flow Rate (L/min) 2 Weight Weight: 76 kg Body Mass Index (BMI) 33.7 NIHSS NIHSS Nursing Documentation NIHSS Nursing Documentation: NIHSS: Ischemic Stroke/TIA Start: 04/18/24 16:01 Text: For PCU Patients: NIH and Neuro Check every 4 Status: Active hours, PRN and with change in RN caregiver. Freq: [id number] Protocol: Activity Type Activity Date Activity User E-sign Co-sign Detail Recorded Client Recorded Date Recorded By Document 04/19/24 08:30 [id number] 04/19/24 08:40 04/19/24 08:30 NIH Stroke Scale [NIHSS] A score of 0 is normal or asymptomatic . Total possible score is 42. Inpatient: RN or Physician to activate a stroke alert for onset of new stroke symptoms or with NIHSS increase >/= 3 points. Following change in neurological status, NIHSS will be performed per physician order or more frequently PRN. -1a. Level of Consciousness Alert; keenly responsive -1b. LOC Questions Answers BOTH questions correctly. -1c. LOC Commands Performs both tasks correctly . -2. Best Gaze Normal -3. Visual No visual loss -4. Facial Palsy Normal symmetrical movements -5a. Left Arm Drift; arm drifts downward but doesn?t hit the bed -5b. Right Arm No drift; arm holds 90 (or 45 ) degrees for full 10 seconds -6a. Left Leg Drift; leg falls by the end of 5- seconds, but does not hit bed -6b. Right Leg Drift; leg falls by the end of 5- seconds, but does not hit bed -7. Limb Ataxia Absent -8. Sensory Normal; no sensory loss -9. Best Language No aphasia; normal -10. Dysarthria Normal -11. Extinction and Inattention No abnormality -Total 3 Query Text:A score of 0 is normal or asymptomatic. Total possible score is 42 . ED: Notify Physician for NIHSS increase by > / = 3 points. Inpatient: RN or Physician to activate a stroke alert for NIHSS increase of > / = 3 points. Coma Scale [Assess] -Eye Opening Spontaneous -Motor Obeys Commands -Verbal Oriented [Total] -Coma Scale Total 15 NIHSS 1a. Level of Consciousness: Alert; keenly responsive 1b. LOC Questions: Answers BOTH questions correctly. 1c. LOC Commands: Performs both tasks correctly. 2. Best Gaze: Normal 3. Visual: No visual loss 4. Facial Palsy: Normal symmetrical movements 5a. Left Arm: Drift; arm drifts downward but doesn?t hit the bed 5b. Right Arm: No drift; arm holds 90 (or 45) degrees for full 10 seconds 6a. Left Leg: No drift; leg holds 30-degree position for full 5 seconds 6b. Right Leg: No drift; leg holds 30-degree position for full 5 seconds 7. Limb Ataxia: Absent 8. Sensory: Normal; no sensory loss 9. Best Language: No aphasia; normal 10. Dysarthria: Normal 11. Extinction and Inattention: No abnormality Total: 1 Physical Exam Const alert, oriented x3 and no apparent distress General Appearance: cooperative, comfortable and well kempt Orientation / Consciousness: awake, oriented to person, oriented to place and oriented to time HEENT normocephalic and head/scalp atraumatic Eyes EOMs intact bilaterally Resp normal respiratory effort Neuro Neuro Narrative: Awake, alert Speech is at baseline (from her prior bells) Cranial nerves intact Motor: Mild left upper extremity weakness Sensation: Intact No ataxia Lab / Micro Data 04/18/24 11:47 04/18/24 11:47 Labs: Laboratory Results - last 24 hr 04/18/24 11:47: WBC 8.0, RBC 4.59, Hgb 14.1, Hct 43.2, MCV 94.1, MCH 30.7, MCHC 32.6, RDW Std Deviation 42.5, RDW Coeff of Tanner 12.3, Plt Count 81 L, MPV 10.5, Differential Comment SCANNED, Sodium 138, Potassium 3.9, Chloride 101, Carbon Dioxide 30.0, Anion Gap 8, BUN 14, Creatinine 0.91, Estim Creat Clear Calc 38.84, Est GFR (MDRD) Af Amer 75, Est GFR (MDRD) Non-Af 62, BUN/Creatinine Ratio 15.4, Glucose 145 H, Calcium 8.8, Total Bilirubin 1.30 H, AST 18, ALT 14, Alkaline Phosphatase 61, Troponin I High Sens 38, Total Protein 7.0, Albumin 3.4, Globulin 3.6, Albumin/Globulin Ratio 0.9 04/18/24 14:20: Urine Color Yellow, Urine Clarity Clear, Urine pH 7.0, Ur Specific [place] 1.010, Urine Protein Negative, Urine Glucose (UA) Normal, Urine Ketones Negative, Urine Occult Blood Negative, Urine Nitrite Negative, Urine Bilirubin Negative, Urine Urobilinogen Normal, Ur Leukocyte Esterase Negative, Urine RBC 0 SEEN, Urine WBC 0 SEEN, Ur Squamous Epith Cells 0 SEEN, Urine Bacteria 0 SEEN, Urine Mucus 0 SEEN 04/19/24 05:01: Triglycerides 106, Cholesterol 133, LDL Cholesterol 46, VLDL Cholesterol 21, HDL Cholesterol 66 Micro: Microbiology 04/18/24 13:01 Mucosa - Nose SARS-CoV-2, Influenza & RSV (PCR) - Final Imaging Radiology Impression Head/Neck CTA 04/18/24 12:46 IMPRESSION: 1. No acute intracranial process. If symptoms persist, MRI of the brain is recommended. 2. 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 3. Approximately 70% stenosis at the origin of the right internal carotid artery is 60% stenosis of the left side. 4. Otherwise no intracranial great vessel stenosis is seen. Electronically Signed: Fran Bran MD at 15:01 EST , Chest X-Ray 04/18/24 13:22 IMPRESSION: No radiographic evidence of acute cardiopulmonary disease. Electronically Signed: Fran Bran MD at 13:43 EST , Brain MRI 04/18/24 16:01 IMPRESSION: Moderate periventricular white matter ischemic changes with multiple foci of acute ischemia. In the right frontal and parietal lobes as well as the left parietal lobe raising question of embolic disease. Clinical correlation recommended Electronically Signed: Rufino Olivares MD at 19:13 EST , ADDENDUM: 04/18/241955 IMPRESSION: Moderate periventricular white matter ischemic changes with multiple foci of acute ischemia. In the right frontal and parietal lobes as well as the left parietal lobe raising question of embolic disease. Clinical correlation recommended N.B. : The above Results were Read Back by Rufino Olivares MD to Karime Bruno MD, and understanding confirmed on 04/18/2024 19:49:45 (ET). Electronically Signed: Rufino Olivares MD at 19:13 EST , Active Medications Active Medications Active Medications: Current Medications Generic Name Dose Route Start Last Admin Trade Name Freq PRN Reason Stop Dose Admin Acetaminophen 500 mg 04/18/24 16:01 Acetaminophen 500 Mg Tablet PO Q6H PRN PRN Pain Score 1-10 Aspirin 81 mg 04/19/24 08:00 Aspirin 81 Mg Tab.Chew PO BREAKFAST GEOFF Atorvastatin Calcium 40 mg 04/18/24 22:00 04/18/24 20:12 Atorvastatin Calcium 40 Mg Tablet PO 40 mg QHS GEOFF Administration Enoxaparin Sodium 40 mg 04/19/24 10:00 Enoxaparin 40 Mg/0.4 Ml Syringe SC DAILY GEOFF Hydralazine HCl 5 mg 04/18/24 16:01 Hydralazine 20 Mg/Ml Vial IV 04/19/24 16:01 Q30M PRN maintain BP parameters with HR <60 Sodium Chloride 100 mls @ 15 mls/hr 04/18/24 16:04 IV .Q6H40M PRN Saline Flush Sodium Chloride 100 mls @ 15 mls/hr 04/18/24 16:04 IV .Q6H40M PRN Additional IVPB Infusion Influenza Virus Vaccine 180 mcg 04/19/24 10:00 Flu Vaccine High Dose Tv 24-25 180 Mcg/0.5 Ml Syringe IM 04/19/24 10:01 .ONCE ONE Labetalol HCl 10 - 20 mg 04/18/24 16:01 Labetalol 20mg/4ml Syringe IV 04/19/24 16:01 Q10M PRN PRN maintain BP parameters with HR >/=60 Loperamide HCl 2 mg 04/18/24 16:01 Loperamide 2 Mg Capsule PO Q6H PRN PRN loose stool Melatonin 10 mg 04/18/24 22:00 04/18/24 22:25 Melatonin 10 Mg Tablet PO 10 mg QHS GEOFF Administration Metoprolol Succinate 50 mg 04/19/24 10:00 Metoprolol(Xl)Succ 50 Mg Tablet PO DAILY [facility] Protocol Ondansetron HCl 4 mg 04/18/24 16:01 Ondansetron 4 Mg/2 Ml Vial IV Q8H PRN PRN NAUSEA/VOMITING Sodium Chloride 10 - 40 ml 04/18/24 16:04 0.9% Saline Lock 10 Ml Syringe IV UD PRN SALINE FLUSH
[2024-04-19] MEDS: Aspirin 81 MG TAB.CHEW PO (09:21)
--- NOTE | 2024-04-19 10:26 | PCM.PN.HOSP ---
Subjective Subjective Doing well, no issues overnight. She has some left-sided weakness in her upper and lower extremity Objective Data Objective Data Vital Signs: Vital Signs Temp Pulse Resp BP Pulse Ox O2 Del Method O2 Flow Rate 98.0 F 64 16 102/54 L 94 Room Air 2 04/19/24 08:30 04/19/24 08:30 04/19/24 08:30 04/19/24 09:14 04/19/24 09:14 04/19/24 09:14 04/19/24 08:43 Oxygen Flow Rate (L/min) 2 Oxygen Delivery Method Room Air Weight: 167 lb 8.821 oz Body Mass Index (BMI) 33.7 Intake & Output: Intake and Output for Last 24 Hours 04/18/24 04/19/24 04/20/24 03:59 03:59 03:59 Intake Total 360 / 360 Balance 360 / 360 Lab / Micro Data 04/18/24 11:47 04/18/24 11:47 Labs: Laboratory Results - last 24 hr 04/18/24 11:47: WBC 8.0, RBC 4.59, Hgb 14.1, Hct 43.2, MCV 94.1, MCH 30.7, MCHC 32.6, RDW Std Deviation 42.5, RDW Coeff of Tanner 12.3, Plt Count 81 L, MPV 10.5, Differential Comment SCANNED, Sodium 138, Potassium 3.9, Chloride 101, Carbon Dioxide 30.0, Anion Gap 8, BUN 14, Creatinine 0.91, Estim Creat Clear Calc 38.84, Est GFR (MDRD) Af Amer 75, Est GFR (MDRD) Non-Af 62, BUN/Creatinine Ratio 15.4, Glucose 145 H, Calcium 8.8, Total Bilirubin 1.30 H, AST 18, ALT 14, Alkaline Phosphatase 61, Troponin I High Sens 38, Total Protein 7.0, Albumin 3.4, Globulin 3.6, Albumin/Globulin Ratio 0.9 04/18/24 14:20: Urine Color Yellow, Urine Clarity Clear, Urine pH 7.0, Ur Specific [place] 1.010, Urine Protein Negative, Urine Glucose (UA) Normal, Urine Ketones Negative, Urine Occult Blood Negative, Urine Nitrite Negative, Urine Bilirubin Negative, Urine Urobilinogen Normal, Ur Leukocyte Esterase Negative, Urine RBC 0 SEEN, Urine WBC 0 SEEN, Ur Squamous Epith Cells 0 SEEN, Urine Bacteria 0 SEEN, Urine Mucus 0 SEEN 04/19/24 05:01: Triglycerides 106, Cholesterol 133, LDL Cholesterol 46, VLDL Cholesterol 21, HDL Cholesterol 66 Micro: Microbiology 04/18/24 13:01 Mucosa - Nose SARS-CoV-2, Influenza & RSV (PCR) - Final Radiography Diagnostic Testing: Radiology Impression Head/Neck CTA 04/18/24 12:46 IMPRESSION: 1. No acute intracranial process. If symptoms persist, MRI of the brain is recommended. 2. 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 3. Approximately 70% stenosis at the origin of the right internal carotid artery is 60% stenosis of the left side. 4. Otherwise no intracranial great vessel stenosis is seen. Electronically Signed: Fran Bran MD at 15:01 EST , Chest X-Ray 04/18/24 13:22 IMPRESSION: No radiographic evidence of acute cardiopulmonary disease. Electronically Signed: Fran Bran MD at 13:43 EST , Brain MRI 04/18/24 16:01 IMPRESSION: Moderate periventricular white matter ischemic changes with multiple foci of acute ischemia. In the right frontal and parietal lobes as well as the left parietal lobe raising question of embolic disease. Clinical correlation recommended Electronically Signed: Rufino Olivares MD at 19:13 EST , ADDENDUM: 04/18/241955 IMPRESSION: Moderate periventricular white matter ischemic changes with multiple foci of acute ischemia. In the right frontal and parietal lobes as well as the left parietal lobe raising question of embolic disease. Clinical correlation recommended N.B. : The above Results were Read Back by Rufino Olivares MD to Karime Bruno MD, and understanding confirmed on 04/18/2024 19:49:45 (ET). Electronically Signed: Rufino Olivares MD at 19:13 EST Reading Location ID and State: [facility] / [place] Tel , Service support , Physical Exam Narrative General: Alert, Oriented x3, Cooperative, No apparent distress HEENT: Atraumatic, PERRLA, EOMI, Normocephalic Oral: Moist Mucosa Neck: Supple, No JVD Lungs: Diminished, Normal air movement, No rhonchi, No wheeze, No rales Cardiovascular: Regular rate, Regular Rhythm, Normal S1, Normal S2, No murmurs Abdomen: Soft, Non Tender, Non-Distended, No Hepato-splenomegaly Extremities: No edema, Capillary Refill Less than 3 Seconds Skin: No rashes, No breakdown Musculoskeletal: No Tenderness to Palpation of Joints or Extremities Neurological: Left upper extremity drift with 4 out of 5 strength as well as in her lower extremity on the left. Sensations intact. NIH of 3 Psych/Mental Status: Normal Affect, Appropriate Assessment & Plan Assessment/Plan (1) CVA (cerebral vascular accident): PLAN: Plan 1. Cardioembolic CVA with tiny ischemic strokes on the right frontal parietal lobes as well as the left parietal lobe ? She does have a history of paroxysmal A-fib ? Will restart anticoagulation on discharge ? Appreciate neurology's assistance ? She does have carotid stenosis on CTA of the head and neck we will obtain a carotid duplex to better characterize ? Continue with aspirin and statin for now ? PT/OT 2. Essential HTN/HLD/chronic diastolic CHF/paroxysmal A-fib ? Continue with her home metoprolol ? Will monitor make adjustments as necessary ? Will likely restart her anticoagulation given her stroke DVT: Lovenox Charges/Coding Visit Charges Inpatient E&M: 71128 Subs Hosp L2
--- NOTE | 2024-04-19 10:41 | CDU_ITS ---
Reason For Study: Carotid stenosis Rt. Velocities/BP Lt. Velocities/BP Prox CCA 61.7/10.7 cm/sec. Prox CCA 102.5/10.2 cm/sec. Mid CCA 75.9/13.5 cm/sec. Mid CCA 79.5/8 cm/sec. Dist CCA 58.9/6 cm/sec. Dist CCA 69.6/10.2 cm/sec. Prox ICA 64.5/9.7 cm/sec. Prox ICA 66.3/13.5 cm/sec. Mid ICA 64.5/13.5 cm/sec. Mid ICA 69.6/13.5 cm/sec. Dist ICA 71.1/14.5 cm/sec. Dist ICA 48.2/13.3 cm/sec. Rt. ICA/CCA = 0.94. Lt. ICA/CCA = 0.87. Prox ECA 55.1 cm/sec. Prox ECA 124.7 cm/sec. Rt. Vert. 61.7/7.8 cm/sec. Lt. Vert. 32.3/7.7 cm/sec. Right Extracranial There is intimal thickening but no significant atherosclerotic plaque noted in the right common carotid artery. There is heterogeneous, irregular atherosclerotic plaque noted in the right internal carotid artery. There is intimal thickening but no significant atherosclerotic plaque noted in the right external carotid artery. Antegrade flow is noted in the right vertebral artery. Left Extracranial There is intimal thickening but no significant atherosclerotic plaque noted in the left common carotid artery. There is heterogeneous, irregular atherosclerotic plaque noted in the left internal carotid artery. The atherosclerotic plaque causes acoustic shadowing. There is intimal thickening but no significant atherosclerotic plaque noted in the left external carotid artery. Bidirectional flow noted in the left vertebral artery. Procedure This is a Carotid Duplex examination using B-mode, color flow and specral Doppler. Carotid Duplex [id number]. Exam performed portable in patient room. VL/Carotid Duplex Ultrasound Interpretation Summary Mild (<50%) stenosis right extracranial internal carotid. Mild (<50%) stenosis left extracranial internal carotid. The Right vertebral is patent and antegrade. The Left vertebral flow is bidirectional. Ordering Physician: Shaheed Burkett Referring Physician: Rufino Ortega Performed By: Kiley Bah RVT
[2024-04-19] MEDS: Enoxaparin 40 MG/0.4 ML Syringe SC (10:47)
[2024-04-19] MEDS: FLU VACCINE **HIGH DOSE** TV 24-25 180 MCG/0.5 ML SYRINGE IM (12:11)
[2024-04-19] MEDS: Atorvastatin Calcium 40 MG Tablet PO (20:41)
[2024-04-19] MEDS: MELATONIN 10 MG TABLET PO (20:41)
[2024-04-20 01:30] VITALS: BP 139/69; PULSE 63; RESP 15; TEMP 36.1; O2SAT 98
[2024-04-20 04:35] VITALS: BMI 33.7
[2024-04-20 06:33] VITALS: BP 141/71; PULSE 73; RESP 16; TEMP 36.7; O2SAT 98
[2024-04-20 08:31] VITALS: O2SAT 95
[2024-04-20 08:32] LABS: Absolute Lymphocyte Count 2.94 X10^3/uL (0.83-4.51); Absolute Neutrophil Count 4.6 X10^3/uL (2.0-7.7); Basophil# 0.01 X10^3/uL; Basophil% 0.1 % (0-1); Eosinophil# 0.02 X10^3/uL; Eosinophils% 0.2 % (0-5); Hematocrit 42.2 % (37-47); Hemoglobin 13.9 g/dL (12.0-15.0); Lymphocyte # 2.94 X10^3/ul (0.83-4.51); Lymphocyte % 31.8 % (19-41); Mean Corp Hgb Conc 32.9 g/dL (32-36); Mean Platelet Vol. 10.7 fl (6.2-12.0); Monocyte# 1.63 X10^3/uL; Monocyte% 17.6 % (0-10); NRBC Flagged by Analyzer 0 % (0-5); Neutrophil # 4.61 X10^3/uL (2.7-7.7); Neutrophil % 49.9 % (47-70); POSITIVE DIFFERENTIAL YES; Platelet Count 120 K/mm3 (150-450); RBC Distribution Width CV 12.3 % (11.6-14.6); RBC Distribution Width SD 42.9 fl (35.1-43.9); Red Blood Count 4.49 M/mm3 (4.2-5.4); White Blood Count 9.3 K/mm3 (4.4-11.0)
[2024-04-20 08:36] LABS: Differential Indicated SCAN CRITERIA MET
[2024-04-20 08:57] LABS: Anion Gap 6 (5-15); BUN 14 mg/dL (7-18); BUN/Creat Ratio 17.9 RATIO (10-20); Calcium,Total 8.7 mg/dL (8.5-10.1); Chloride 101 mmol/L (98-107); Creatinine, Serum 0.78 mg/dL (0.55-1.02); EST Glomerular Filtration Rate 74 mL/min (>60); Est Glom Filt Rate - Afr Amer 89 mL/min (>60); Estimated Creatinine Clearance 43.43 ml/min; Glucose 129 mg/dL (74-106); Potassium 3.7 mmol/L (3.5-5.1); Sodium Level 137 mmol/L (136-145)
--- NOTE | 2024-04-20 09:03 | PCM.PN.HOSP ---
Subjective Subjective Doing well, no issues overnight. Weakness seems to be improving on the left Objective Data Objective Data Vital Signs: Vital Signs Temp Pulse Resp BP Pulse Ox O2 Del Method O2 Flow Rate 98.1 F 73 16 141/71 H 98 Room Air 2 04/20/24 06:33 04/20/24 06:33 04/20/24 06:33 04/20/24 06:33 04/20/24 06:33 04/20/24 06:33 04/19/24 08:43 Oxygen Flow Rate (L/min) 2 Oxygen Delivery Method Room Air Weight: 167 lb 8.821 oz Body Mass Index (BMI) 33.7 Intake & Output: Intake and Output for Last 24 Hours 04/19/24 04/20/24 04/21/24 03:59 03:59 03:59 Intake Total 360 / 360 1300 / 1300 Output Total 250 / 250 200 / 200 Balance 360 / 360 1050 / 1050 -200 / -200 Lab / Micro Data 04/20/24 08:15 04/20/24 08:15 Labs: Laboratory Results - last 24 hr 04/20/24 08:15: WBC 9.3, RBC 4.49, Hgb 13.9, Hct 42.2, MCV 94.0, MCH 31.0, MCHC 32.9, RDW Std Deviation 42.9, RDW Coeff of Tnaner 12.3, Plt Count 120 L, MPV 10.7, Immature Gran % (Auto) 0.400, Neut % (Auto) 49.9, Lymph % (Auto) 31.8, [place] % (Auto) 17.6 H, Eos % (Auto) 0.2, Baso % (Auto) 0.1, Absolute Neuts (auto) 4.6, Absolute Lymphs (auto) 2.94, Nucleated RBC % 0, Sodium 137, Potassium 3.7, Chloride 101, Carbon Dioxide 30.0, Anion Gap 6, BUN 14, Creatinine 0.78, Estim Creat Clear Calc 43.43, Est GFR (MDRD) Af Amer 89, Est GFR (MDRD) Non-Af 74, BUN/Creatinine Ratio 17.9, Glucose 129 H, Calcium 8.7 Micro: Microbiology 04/18/24 13:01 Mucosa - Nose SARS-CoV-2, Influenza & RSV (PCR) - Final Physical Exam Narrative General: Alert, Oriented x3, Cooperative, No apparent distress HEENT: Atraumatic, PERRLA, EOMI, Normocephalic Oral: Moist Mucosa Neck: Supple, No JVD Lungs: Diminished, Normal air movement, No rhonchi, No wheeze, No rales Cardiovascular: Regular rate, Regular Rhythm, Normal S1, Normal S2, No murmurs Abdomen: Soft, Non Tender, Non-Distended, No Hepato-splenomegaly Extremities: No edema, Capillary Refill Less than 3 Seconds Skin: No rashes, No breakdown Musculoskeletal: No Tenderness to Palpation of Joints or Extremities Neurological: Left upper extremity drift with 4+ out of 5 strength as well as in her lower extremity on the left. Sensations intact. NIH of 2 Psych/Mental Status: Normal Affect, Appropriate Assessment & Plan Assessment/Plan (1) CVA (cerebral vascular accident): PLAN: Plan 1. Cardioembolic CVA with tiny ischemic strokes on the right frontal parietal lobes as well as the left parietal lobe ? She does have a history of paroxysmal A-fib ? Will restart anticoagulation on discharge ? Appreciate neurology's assistance ? She does have carotid stenosis on CTA of the head and neck we will obtain a carotid duplex to better characterize ? Continue with aspirin and statin for now ? PT/OT, plan for SNF discharge 2. Essential HTN/HLD/chronic diastolic CHF/paroxysmal A-fib ? Continue with her home metoprolol ? Will monitor make adjustments as necessary ? Will likely restart her anticoagulation given her stroke DVT: Lovenox Charges/Coding Visit Charges Inpatient E&M: 13307 Subs Hosp L2
[2024-04-20 09:19] LABS: Atypical Lymphocyte 3+ %; Ovalocyte 1+; Platelet Estimate SLT DEC (ADEQ); Smudge Cells 1+
[2024-04-20 09:20] LABS: Polychromasia 1+
[2024-04-20 09:25] VITALS: BP 107/57; PULSE 92; RESP 17; TEMP 36.8; O2SAT 95
[2024-04-20 09:36] VITALS: PULSE 93
[2024-04-20] MEDS: Metoprolol(XL)Succ 50 MG Tablet PO (09:36)
[2024-04-20] MEDS: Aspirin 81 MG TAB.CHEW PO (09:36)
[2024-04-20] MEDS: Enoxaparin 40 MG/0.4 ML Syringe SC (09:37)
--- NOTE | 2024-04-20 10:33 | CASEMGMT ---
SW completed a PHQ 9 with patient as she had a Stroke. Patient scored a 1 which indicates minimal depression. Patient denied need for any counseling resources. SW also asked patient about her discharge plans. Patient said she will need to go somewhere for discharge. Patient said she and her sons will figure it out. SABRINA told patient SABRINA can provide her with a list of places that take her insurance. Gloria Tariq NEUROLOGY TECH MICAH
--- NOTE | 2024-04-20 10:42 | CASEMGMT ---
SW provided patient with a list of fdc facility providers including quality and resource use data and consistent with patient?s preferred geographic region, medical needs, and insurance network were provided from the [employer] Guide. SW did also explain Acute Rehab. SABRINA explained [facility] has one and then there are other Rehab Units in [facility]. SW did explain that the Rehab Unit is not on the list as it is not a SNF. Patient then asked SW to call her son Espinoza. SW called Espinoza. Introduced self and role at [facility]. SABRINA explained above information. Espinoza said he will talk with his brother and they will be at [facility] soon. Gloria Tariq MSW MICAH
--- NOTE | 2024-04-20 12:00 | CASEMGMT ---
XOCHITL MONTEIRO chart review: Patient was admitted 04/07-04/09/24 for RSV with hypoxia. See XOCHITL MONTEIRO assessment from 04/08/24. Patient was discharged to home with family support and follow-up plans in place. Patient did not qualify for home oxygen. Patient returned to [facility] ED for increase weakness. Patient was admitted for stroke workup and was positive for stroke. XOCHITL MONTEIRO in to discuss needs at discharge and readmission, sons at bedside. Patient states that she was taking medications as prescribed. Per son, patient attended PCP appt on 04/17/24. Son states that he noticed increased weakness and was unable to assist patient and called squad. Sons reviewing SNF list and state they are interested in [facility] and are going over to look at the unit and make a decision. Patient and sons had no furhter questions or concerns. XOCHITL MONTEIRO updated SW regarding possible [facility] at discharge. CM will continue to follow this patient and plan for a safe discharge.
[2024-04-20 12:56] VITALS: BMI 33.7
[2024-04-20 13:25] VITALS: BP 120/52; PULSE 72; RESP 17; TEMP 36.7; O2SAT 94
--- NOTE | 2024-04-20 13:54 | CASEMGMT ---
SW was informed patient's son is in the room. They would like the Rehab Unit here at [facility]. They declined a list of other Rehab facilities since they were not local. Physician was notified and patient will go today. SW notified patient and family patient will go today. Plan: d/c to [facility] Acute Rehab Unit Gloria OBRIEN
--- NOTE | 2024-04-20 14:12 | PN.NEURO_ITS ---
Objective Data Objective Data Vital Signs: Vital Signs Temp Pulse Resp BP Pulse Ox O2 Del Method O2 Flow Rate 98.0 F 72 17 120/52 L 94 Room Air 2 04/20/24 13:25 04/20/24 13:25 04/20/24 13:25 04/20/24 13:25 04/20/24 13:25 04/20/24 13:25 04/19/24 08:43 Oxygen Flow Rate (L/min) 2 Oxygen Delivery Method Room Air Weight: 76 kg Body Mass Index (BMI) 33.7 Intake & Output: Intake and Output for Last 24 Hours 04/18/24 04/19/24 04/20/24 23:59 23:59 23:59 Intake Total 120 / 120 1540 / 1540 Output Total 250 / 250 200 / 200 Balance 120 / 120 1290 / 1290 -200 / -200 Lab / Micro Data 04/20/24 08:15 04/20/24 08:15 Labs: Laboratory Results - last 24 hr 04/20/24 08:15: WBC 9.3, RBC 4.49, Hgb 13.9, Hct 42.2, MCV 94.0, MCH 31.0, MCHC 32.9, RDW Std Deviation 42.9, RDW Coeff of Tanner 12.3, Plt Count 120 L, MPV 10.7, Immature Gran % (Auto) 0.400, Neut % (Auto) 49.9, Lymph % (Auto) 31.8, [place] % (Auto) 17.6 H, Eos % (Auto) 0.2, Baso % (Auto) 0.1, Absolute Neuts (auto) 4.6, Absolute Lymphs (auto) 2.94, Nucleated RBC % 0, Diff Path Review May foll, Atypical Lymphocytes 3+, Smudge Cells 1+ H, Platelet Estimate SLT DEC, Polychromasia 1+, Ovalocytes 1+, Sodium 137, Potassium 3.7, Chloride 101, Carbon Dioxide 30.0, Anion Gap 6, BUN 14, Creatinine 0.78, Estim Creat Clear Calc 43.43, Est GFR (MDRD) Af Amer 89, Est GFR (MDRD) Non-Af 74, BUN/Creatinine Ratio 17.9, Glucose 129 H, Calcium 8.7 Micro: Microbiology 04/18/24 13:01 Mucosa - Nose SARS-CoV-2, Influenza & RSV (PCR) - Final Radiography Diagnostic Testing: Radiology Impression Echocardiogram 04/18/24 16:01 Interpretation Summary Normal LV size. Left ventricular systolic function is normal. The left ventricular ejection fraction is 70 %. Stage 1 diastolic dysfunction. Contrast injection was performed. Ordering Physician: Jose Diamond Performed By: Sidney Barron RCS Carotid Duplex 04/19/24 10:41 Interpretation Summary Mild (<50%) stenosis right extracranial internal carotid. Mild (<50%) stenosis left extracranial internal carotid. The Right vertebral is patent and antegrade. The Left vertebral flow is bidirectional. Ordering Physician: Shaheed Burkett Referring Physician: Rufino Ortega Performed By: Kiley Bah RVT Physical Exam Neuro Neuro Narrative: General:?The patient appears nutritionally appropriate, well-groomed, and appears comfortable in no acute distress.?Mental Status:??The patient?s mental status was normal including orientation.??Cranial nerves:? Visual christianson full, extra-ocular motion was intact. Face motion? symmetric. Bilateral shoulder shrug was intact.? Tongue was midline with normal movement.? There was no dysarthria.? Motor:?Normal strength in all four extremities, except for left arm weakness, + pronator drift.?Sensation:?Intact light touch bilaterally, no extinction.??C oordination:? Bilateral finger to nose was normal.? There was no dysmetria.?G ait:? Deferred. ? Subject: Neurology Subjective Patient still has left arm weakness- still feels heavy. Family report she will be going to the attached Acute rehab at [place]. 120/52. On Asa, lipitor, lovenox SQ currently. Assessment and Plan: Stroke Assessment/Plan VINCENT KHANNA is a 89 yo RH F with a history of PAfib not on AC (stopped in summer per family), HTN, HL who presents for evaluation of left arm weakness, onset Wednesday (04/16/24). Family reports patient was on xarelto many years for PAfib stroke prevention, but was taken off it by her associate automation engineer over the summer this year for unclear reasons. Family denies bleeding problems. Cardiology note from 12/2023 reports nose bleeding, which family reports she had some nose bleeding, AC was held, she had packing by ENT, and they thought AC was resumed after that, but held later by her associate automation engineer. No further nose bleeding. The family didnt think nose bleeding was the reason AC was stopped. CT brain negative. 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 MRI brain DWI shows small punctate embolic MCA infarcts bilaterally. LDL 46. TTE- EF 70%. Neurological examination shows mild left arm weakness, NIHSS-1 (LUE-1). ASSESSMENT/PLAN: Acute embolic ischemic stroke, PSD#4 1) Stroke mechanism is cardioembolism due to Afib. Stroke work-up completed. Recommended starting AC (eliquis or any other NOAC preferred by family is fine). Start AC today. 2) Continue PT/OT. Follow-up with neurology in outpatient clinic. Will sign off, please call us with further stroke related questions.
--- NOTE | 2024-04-20 14:38 | CHAPLAIN ---
Type of Pastoral Visit _x__ Initial Visit ___ Follow-up Visit ___ On-call Visit ___ General Patient Visit ___ Spiritual Assessment ___ Family Conference ___ Bereavement ___ Rapid Response ___ Code Blue ___ Other (describe below) Pastoral Care Referral From _x__ Patient _x__ Family ___ Nurse ___ Physician ___ Fisher Spear ___ Fire Protection Designer ___ Other (describe below) Sacrament/Intervention _x__ Active listening ___ Anointing ___ Adventist ___ Bereavement ___ Communion ___ Ryann exploration ___ ___ Life review _x__ Prayer ___ Reconciliation ___ Sacrament of Sick _x__ Supportive presence ___ Wedding ___ Other (describe below) Pastoral Comments patient is pleasant and welcoming; two sons are with her; pt states that she is doing pretty well at the moment; sons contribute to conversation; pt expects to go today to the Rehab unit; this merit system director gives assurance of great care and quality help in the rehab to the patient's encouragement at this time; all say ' you can stop and see me/her there'; pt is member of a local voodoo and welcomes a prayer for her support at this time
--- NOTE | 2024-04-20 15:16 | PCM.DC ---
Discharge Instructions Diet Discharge Diet: Low fat / Low cholesterol DC O2, CPAP, BIPAP needs Home O2 Discharge instructions: No Dressing / Incision Discharge Activity: Return to Normal Activity Dressing / Incision Call your doctor if you observe: Fever of 101 or Higher, Shortness of breath, Dizziness, Fainting spells, Swelling in the ankles, Chest pain and Increased palpitations (irregular heartbeat) Follow Up Care Test Results: Test results from this visit will be discussed in further detail at your follow-up appointment, if applicable. Discharge Plan Admission Admit Date/Time: 04/18/24 15:09 Attending Provider: Shaheed Burkett Primary Care Provider: Rufino Ortega Consulting Providers: Jose Diamond Discharge Orders/Prescriptions Prescriptions: New atorvastatin 40 mg Tablet 40 mg PO QHS 30 Days Qty: 30 0RF Eliquis 5 mg Tablet 5 mg PO BID 30 Days Qty: 60 0RF Continued Nighttime Sleep-Aid (doxylamn) 25 mg tablet 25 mg PO QHS PRN (Reason: Sleep) metoprolol succinate 50 mg tablet extended release 24 hr 50 mg PO DAILY cholecalciferol (vitamin D3) 50 mcg (2,000 unit) capsule 50 mcg PO DAILY multivitamin Tablet 1 tab PO DAILY acetaminophen 500 mg tablet 500 mg PO Q6H PRN (Reason: Pain) omega-3 fatty acids [Fish Oil Concentrate] 1,000 mg capsule 1,000 mg PO DAILY loperamide 2 mg capsule 2 mg PO Q6H PRN (Reason: loose stool) benzonatate 100 mg capsule 200 mg PO TID PRN PRN (Reason: cough) Discontinued prednisone 10 mg tablet 10 mg PO DAILY Qty: 30 0RF Rx Instructions: 4 tablets x 3 days, 3 tablets x 3 days, 2 tablets x 3 days, 1 tablet x 3 days and stop Referrals / Follow Up: Rufino Ortega MD [Primary Care Provider] - Within 2 Weeks Disposition Disposition (needs filled in before D/C Order can be placed): Inpatient Rehab Unit/Facility
--- NOTE | 2024-04-20 15:27 | DS.PCM_ITS ---
Providers Date of Admission: 04/18/24 Primary Care Physician: Dr. Rufino Ortega MD Reason For Visit: CVA Diagnosis Discharge Diagnosis (1) CVA (cerebral vascular accident): Status: Acute Code(s): I63.9 - Cerebral infarction, unspecified Medications at Discharge Home Medications acetaminophen 500 mg tablet 500 mg PO Q6H PRN Pain 10/10/20 cholecalciferol (vitamin D3) 50 mcg (2,000 unit) capsule 50 mcg PO DAILY supplement 10/10/20 doxylamine succinate 25 mg tablet (Nighttime Sleep-Aid (doxylamine)) 25 mg PO QHS PRN Sleep 10/10/20 metoprolol succinate 50 mg tablet,extended release 24 hr 50 mg PO DAILY HTN 10/10/20 multivitamin 1 tab PO DAILY supplement 10/10/20 omega-3 fatty acids 1,000 mg capsule (Fish Oil Concentrate) 1,000 mg PO DAILY cholesterol 10/10/20 loperamide 2 mg capsule 2 mg PO Q6H PRN loose stool 07/03/22 benzonatate 100 mg capsule 200 mg PO TID PRN PRN cough 04/18/24 apixaban 5 mg tablet (Eliquis) 5 mg PO BID 30 days #60 tabs 04/20/24 atorvastatin 40 mg tablet 40 mg PO QHS 30 days #30 tabs 04/20/24 Hospital Course Operations None Procedures 2-D Echocardiogram and - (Carotid duplex with <50% stenosis bilaterally) Summary of Care Provided Minutes Spent on Discharge: 36 Hospital Course: Per HPI: VINCENT KHANNA, is a 89 F who presents with weakness. This is an 89-year-old female with history of atrial fibrillation who was just hospitalized here for RSV and went home. She went home and was actually doing fairly well up until the past couple days where she was noticeably weak in her legs. Family was concerned and brought her to the hospital. It was noted in the emergency room that she was having some left-sided drift so patient underwent CTA of the head and neck that showed no acute process but occluded left vertebral artery and approximately 70% stenosis of the right internal carotid and 60% stenosis of the left side. But given her drift and the concern for stroke, the hospitalist service was contacted for admission. Hospital Course: 1. Cardioembolic CVA with tiny ischemic strokes in the right frontal and parietal lobes as well as the left parietal lobe?89-year-old female with a history of paroxysmal A-fib who was stopped her anticoagulation about a year ago presented to the hospital with left upper extremity weakness as well as left lower extremity weakness. She was found to have multiple small strokes indicative of cardioembolic CVA from A-fib. She was restarted on Eliquis today and accepted to inpatient rehab for physical therapy. I discussed with her the plan for discharge today she expressed understanding of the risks and benefits of going to rehab and would like to go today. Will continue with Eliquis 5 mg p.o. twice daily as well as a statin. Will hold off on aspirin for now. CTA of the head and neck demonstrated carotid stenosis however carotid duplex felt that there is less than 50% stenosis bilaterally. 2. Essential hypertension, hyperlipidemia, chronic diastolic CHF, paroxysmal A- fib are all chronic medical conditions which complicate her care. Her home medications were continued where appropriate Physical Exam Narrative General: Alert, Oriented x3, Cooperative, No apparent distress HEENT: Atraumatic, PERRLA, EOMI, Normocephalic Oral: Moist Mucosa Neck: Supple, No JVD Lungs: Diminished, Normal air movement, No rhonchi, No wheeze, No rales Cardiovascular: Regular rate, Regular Rhythm, Normal S1, Normal S2, No murmurs Abdomen: Soft, Non Tender, Non-Distended, No Hepato-splenomegaly Extremities: No edema, Capillary Refill Less than 3 Seconds Skin: No rashes, No breakdown Musculoskeletal: No Tenderness to Palpation of Joints or Extremities Neurological: Left upper extremity drift with 4+ out of 5 strength as well as in her lower extremity on the left. Sensations intact. NIH of 2 Psych/Mental Status: Normal Affect, Appropriate Weight / BMI Weight Weight: 167 lb 8.821 oz Body Mass Index (BMI) 33.7 ABG / Lab / Microbiology Data 04/20/24 08:15 04/20/24 08:15 Laboratory: Laboratory Results - last 24 hr 04/20/24 08:15: WBC 9.3, RBC 4.49, Hgb 13.9, Hct 42.2, MCV 94.0, MCH 31.0, MCHC 32.9, RDW Std Deviation 42.9, RDW Coeff of Tanner 12.3, Plt Count 120 L, MPV 10.7, Immature Gran % (Auto) 0.400, Neut % (Auto) 49.9, Lymph % (Auto) 31.8, [place] % (Auto) 17.6 H, Eos % (Auto) 0.2, Baso % (Auto) 0.1, Absolute Neuts (auto) 4.6, Absolute Lymphs (auto) 2.94, Nucleated RBC % 0, Diff Path Review May foll, Atypical Lymphocytes 3+, Smudge Cells 1+ H, Platelet Estimate SLT DEC, Polychromasia 1+, Ovalocytes 1+, Sodium 137, Potassium 3.7, Chloride 101, Carbon Dioxide 30.0, Anion Gap 6, BUN 14, Creatinine 0.78, Estim Creat Clear Calc 43.43, Est GFR (MDRD) Af Amer 89, Est GFR (MDRD) Non-Af 74, BUN/Creatinine Ratio 17.9, Glucose 129 H, Calcium 8.7 Microbiology: Microbiology 04/18/24 13:01 Mucosa - Nose SARS-CoV-2, Influenza & RSV (PCR) - Final Radiography Diagnostic Testing: Radiology Impression Echocardiogram 04/18/24 16:01 Interpretation Summary Normal LV size. Left ventricular systolic function is normal. The left ventricular ejection fraction is 70 %. Stage 1 diastolic dysfunction. Contrast injection was performed. Ordering Physician: Jose Diamond Performed By: Sidney Barron RCS Carotid Duplex 04/19/24 10:41 Interpretation Summary Mild (<50%) stenosis right extracranial internal carotid. Mild (<50%) stenosis left extracranial internal carotid. The Right vertebral is patent and antegrade. The Left vertebral flow is bidirectional. Ordering Physician: Shaheed Burkett Referring Physician: Rufino Ortega Performed By: Kiley Bah RVT D/C Instructions Discharge Diet: Low fat / Low cholesterol Call your doctor if you observe: Fever of 101 or Higher, Shortness of breath, Dizziness, Fainting spells, Swelling in the ankles, Chest pain and Increased palpitations (irregular heartbeat) DC O2, CPAP, BIPAP Needs Home O2 Discharge instructions: No Meaningful Use Info Meaningful Use Meaningful Use Diagnoses (Choose all that apply): None applicable Ischemic Stroke Statin Dosing Therapy Reference: STATIN DOSE THERAPY REFERENCE: * Patients > 75 years receive moderate or high dose statin therapy. * Patients 75 years or YOUNGER should receive HIGH intensity statin dose unless contraindicated. You will be required to document reason for non-treatment if statin daily dose does not meet guidelines. HIGH DOSE STATIN THERAPY DAILY Atorvastatin > than or = to 40 mg Rosuvastatin > than or = to 20 mg Amlodipine + Atorvastatin > than or = to 2.5/40 mg Ezetimibe + Simvastatin 10/80 mg Simvastatin 80mg Discharge Plan Admission Admit Date/Time: 04/18/24 15:09 Attending Provider: Shaheed Burkett Primary Care Provider: Rufino Ortega Consulting Providers: Jose Diamond Discharge Orders/Prescriptions Prescriptions: New atorvastatin 40 mg Tablet 40 mg PO QHS 30 Days Qty: 30 0RF Eliquis 5 mg Tablet 5 mg PO BID 30 Days Qty: 60 0RF Continued Nighttime Sleep-Aid (doxylamn) 25 mg tablet 25 mg PO QHS PRN (Reason: Sleep) metoprolol succinate 50 mg tablet extended release 24 hr 50 mg PO DAILY cholecalciferol (vitamin D3) 50 mcg (2,000 unit) capsule 50 mcg PO DAILY multivitamin Tablet 1 tab PO DAILY acetaminophen 500 mg tablet 500 mg PO Q6H PRN (Reason: Pain) omega-3 fatty acids [Fish Oil Concentrate] 1,000 mg capsule 1,000 mg PO DAILY loperamide 2 mg capsule 2 mg PO Q6H PRN (Reason: loose stool) benzonatate 100 mg capsule 200 mg PO TID PRN PRN (Reason: cough) Discontinued prednisone 10 mg tablet 10 mg PO DAILY Qty: 30 0RF Rx Instructions: 4 tablets x 3 days, 3 tablets x 3 days, 2 tablets x 3 days, 1 tablet x 3 days and stop Referrals / Follow Up: Rufino Ortega MD [Primary Care Provider] - Within 2 Weeks Disposition Disposition (needs filled in before D/C Order can be placed): Inpatient Rehab Unit/Facility Charges/Coding Visit Charges Inpatient E&M: 29574 Disch Hosp >30min
[2024-04-20] MEDS: APIXABAN 5 MG TABLET PO (15:32)
--- NOTE | 2024-04-20 15:48 | NURSING ---
Report called to nurse Simpson on Inpatient rehab.
[2024-04-20 16:55] VITALS: BMI 33.7
[2024-04-21 13:13] LABS: Pathologist Review Reviewed
== END 2024-04-20 16:31 | DRG 65 ==
LOC: PCU 04-19 06:58 → ED 04-19 07:45 → PCU 04-19 07:45
PROVIDERS: Emergency Provider Emergency Medicine; PCP Family Medicine; Visit Provider Family Medicine
DX: I63.212 Cerebral infarction due to unspecified occlusion or stenosis of left vertebral artery (principal); I50.32 Chronic diastolic (congestive) heart failure; G81.94 Hemiplegia, unspecified affecting left nondominant side; Z66 Do not resuscitate; I11.0 Hypertensive heart disease with heart failure; I63.231 Cerebral infarction due to unspecified occlusion or stenosis of right carotid arteries; I48.0 Paroxysmal atrial fibrillation; E78.5 Hyperlipidemia, unspecified; R29.701 NIHSS score 1; Z79.899 Other long term (current) drug therapy; Z86.16 Personal history of COVID-19
CPT/HCPCS: 36415; 70496; 70498; 70551; 71045; 80048; 80053; 80061; 81001; 84484; 85025; 85027; 87631; 90662; 92610; 93005; 93306; 93880; 94762; 97162; 97166; 97530; 97535; 97802; 99285; Q9957; Q9967; A4216; C8929

== ENCOUNTER 2024-04-20 16:49 | Inpatient (IN) | payer MEDICARE, OTHER, SELFPAY ==
[2024-04-20 17:04] VITALS: BP 93/47; PULSE 73; RESP 15; TEMP 36.9; O2SAT 82
[2024-04-20 17:19] VITALS: BP 93/47; PULSE 73; RESP 15; TEMP 36.4; O2SAT 92
[2024-04-20] MEDS: CLARIFY ORDER 1 EACH NOTE (18:08)
[2024-04-20 20:30] VITALS: BMI 34.0
[2024-04-20 20:36] VITALS: BMI 34.0
[2024-04-20] MEDS: Acetaminophen 500 MG Tablet PO (20:36)
[2024-04-20] MEDS: APIXABAN 5 MG TABLET PO (20:36)
[2024-04-20] MEDS: Senna/Docusate Sodium 1 Tablet 2 TABLET PO (20:37)
[2024-04-20] MEDS: Atorvastatin Calcium 40 MG Tablet PO (20:37)
--- NOTE | 2024-04-20 20:44 | EX.PCM.HP.RE ---
HPI - General General Date of Admission: 04/20/24 Date of Service: 04/21/24 Chief Complaint: Here for 3 hours daily rehabilitation. HPI Narrative VINCENT KHANNA, is a 89 Female who presents with followin04/18/2024 [facility] ED with weakness. Weakness, difficulty ambulating. NIH 1, left upper extremity weakness concerning for stroke. Not candidate for TNK 2/2 timing, and NIH < 6. Bloodwork okay, Chest X-ray okay, Troponin okay, Urinalysis okay. covid/flu/rsv negative. CT/CTA head and neck negative for LVO. 04/18/2024 Admit [facility]. Aspirin, Atorvastatin, MRI brain, Echo, PT/OT/ST for left sided weakness concerning for stroke. Recent rsv infection requiring hospitalization. 70% right internal carotid artery stenosis. 04/18/2024 Echo normal LV size. LV systolic function normal. LVEF 70%. Stage 1 diastolic dysfunction. 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 Patient has atrial fibrillation, NOT on anticoagulation. 04/19/2024 No acute events overnight, left upper extremity, left lower extremity weakness persists. Carotid doppler ultrasound to evaluate carotid artery stenosis. Aspirin, statin for now, discharge on anticoagulation. 04/20/2024 Left sided weakness improving. PT/OT for rehabilitation. Carotid doppler ultrasound < 50% stenosis bilateral extracranial internal carotid arteries. Neurology recommends anticoagulation. 04/20/2024 Admit to for 3 hours daily rehabilitation, strengthening, prior to discharge home alone. [facility] Medical History COVID-19 (03/2021) Obesity Right bundle branch block (RBBB) Hyperlipidemia Prediabetes Salas's palsy Paroxysmal atrial fibrillation Essential hypertension Osteopenia History of hepatitis Hyperglycemia Osteoarthritis Home Medications ?Medication ?Instructions ?Recorded ?Last Taken ?Type acetaminophen 500 mg tablet 500 mg PO Q6H PRN Pain 10/10/20 Unknown History cholecalciferol (vitamin D3) 50 50 mcg PO DAILY supplement 10/10/20 Unknown History mcg (2,000 unit) capsule doxylamine succinate 25 mg tablet 25 mg PO QHS PRN Sleep 10/10/20 Unknown History (Nighttime Sleep-Aid (doxylamine)) metoprolol succinate 50 mg 50 mg PO DAILY HTN 10/10/20 04/20/24 History tablet,extended release 24 hr multivitamin 1 tab PO DAILY supplement 10/10/20 Unknown History omega-3 fatty acids 1,000 mg 1,000 mg PO DAILY cholesterol 10/10/20 Unknown History capsule (Fish Oil Concentrate) loperamide 2 mg capsule 2 mg PO Q6H PRN loose stool 07/03/22 Unknown History benzonatate 100 mg capsule 200 mg PO TID PRN PRN cough 04/18/24 Unknown History apixaban 5 mg tablet (Eliquis) 5 mg PO BID AFIB 30 days #60 tabs 04/20/24 04/20/24 Rx atorvastatin 40 mg tablet 40 mg PO QHS cholesterol 30 days 04/20/24 04/19/24 Rx #30 tabs Allergy/AdvReac Type Severity Reaction Status Date / Time propoxyphene (From Allergy Unknown unknown Verified 04/18/24 11:36 Darvocet-N) Sulfa (Sulfonamide Allergy Unknown unknown Verified 04/18/24 11:36 Antibiotics) Family History Mother Heart disease Father Heart disease Sister Heart disease Breast cancer Aunt Breast cancer Diabetes Grandmother Cancer stomach Surgical History History of bilateral cataract extraction History of eyelid surgery 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 Madhav Hoff MD) household members: children and other details: Lives with son. housing: apartment Smoking Status: Never smoker alcohol intake: never substance use type: does not use caffeine: Yes Type: coffee Number of servings: 1 ROS Constitutional Constitutional: Reports weakness; Denies chills, fever(s) or weight gain ENT HEENT: Denies headache(s), nasal congestion or nasal discharge Cardiovascular Cardiovascular: Denies chest pain or palpitations Respiratory/Chest Respiratory/Chest: Denies cough, excessive phlegm production or shortness of breath with exertion Gastrointestinal Gastrointestinal: Denies abdominal pain, nausea or vomiting Genitourinary Genitourinary: Denies dysuria Musculoskeletal Musculoskeletal: Denies joint pain or joint swelling Integumentary Integumentary: Denies rash or wounds Neurologic Neurologic: Denies focal weakness, numbness or tingling Psychiatric Psychiatric: Denies anxiety, auditory hallucinations, depression, homicidal ideation or suicidal ideation Vital Signs Vital Signs Vital Signs: 04/20/24 17:04 04/20/24 17:19 04/20/24 19:40 Temperature 98.5 F 97.5 F L Temperature Source Oral Oral Pulse Rate 73 73 Respiratory Rate 15 15 Blood Pressure 93/47 L 93/47 L Blood Pressure Mean 62 62 Blood Pressure Source Monitor Monitor Blood Pressure Position Sitting Semi-Fowlers Blood Pressure Location Right Arm Right Arm Pulse Ox 82 92 Oxygen Delivery Method Room Air Room Air Room Air Weight Weight: 76.43 kg Body Mass Index (BMI) 34.0 Indicators for Scoring Admitted with or Primary Diagnosis of CVA/Stroke: Yes Hx of CVA/Stroke: Yes Modified Acadia Score MRS Score at time of Evaluation: 3-Moderate disability NIHSS NIHSS 1a. Level of Consciousness: Alert; keenly responsive 1b. LOC Questions: Answers BOTH questions correctly. 1c. LOC Commands: Performs both tasks correctly. 2. Best Gaze: Normal 3. Visual: No visual loss 4. Facial Palsy: Normal symmetrical movements 5a. Left Arm: Drift; arm drifts downward but doesn?t hit the bed 5b. Right Arm: No drift; arm holds 90 (or 45) degrees for full 10 seconds 6a. Left Leg: Drift; leg falls by the end of 5-seconds, but does not hit bed 6b. Right Leg: No drift; leg holds 30-degree position for full 5 seconds 7. Limb Ataxia: Absent 8. Sensory: Normal; no sensory loss 9. Best Language: No aphasia; normal 10. Dysarthria: Normal 11. Extinction and Inattention: No abnormality Total: 2 Stroke Questions a.Reviewed Inclusion/Exclusion criteria: No Was Patient considered for Endovascular Intervention?: No IV Thrombolytic Administered: No Physical Exam Const alert General Appearance: cooperative HEENT normocephalic Eyes PERRL and EOMs intact bilaterally Neck supple, no JVD and no carotid bruits Resp normal respiratory effort, normal air movement and clear to auscultation bilaterally Cardio regular rate and regular rhythm GI normal to inspection, nondistended, normoactive bowel sounds, non-tender and non-distended Extremity normal capillary refill General Extremity: Negative for edema Skin no rashes or lesions noted General Skin Exam: no breakdown Neuro Neuro Narrative: Left hemiparesis. Psych affect normal Appearance: appropriate Assessment & Plan Assessment/Plan (1) Debility: (2) CVA (cerebral vascular accident): (3) Left hemiparesis: (4) Paroxysmal atrial fibrillation: (5) Vitamin D deficiency: (6) Insomnia: (7) Hyperlipidemia: QUALIFIERS: Hyperlipidemia type: mixed hyperlipidemia Qualified Code(s): E78.2 - Mixed hyperlipidemia (8) Chronic diarrhea: (9) Chronic cough: PLAN: Plan 89 year old female with below past medical history hospitalized for multiple embolic strokes, left hemiparesis, not anticoagulated atrial fibrillation, admitted to for 3 hours daily rehabilitation, strengthening, prior to discharge home alone. Debility - PT/OT/ST. Pain - Tylenol 1000mg q6 prn pain (1-10). Bowel - senna/colace 2 tablets bid, Dulcolax 10mg pr x 1 prn, MOM 30mL po x 1 prn, Loperamide 2mg q6 prn. DVT prophylaxis - on Eliquis. Atrial fibrillation - Metoprolol succinate 50mg daily, Eliquis 5mg po bid. Hyperlipidemia - Atorvastatin 40mg qhs, [place] 3 1 gm daily. Chronic cough - Tessalon perles 200mg tid prn. Vitam in D deficiency - D3 50mcg daily. Nutrition - MVI 1 tablet daily.
[2024-04-21] MEDS: 0.9% Saline Lock 10 ML Syringe IV ×2 (05:17→21:39)
[2024-04-21 05:18] VITALS: BP 132/53; PULSE 72; RESP 16; TEMP 36.3; O2SAT 93
[2024-04-21 07:09] VITALS: O2SAT 95
[2024-04-21 08:00] VITALS: PULSE 72
[2024-04-21] MEDS: Metoprolol(XL)Succ 50 MG Tablet PO (08:00)
[2024-04-21] MEDS: Multivitamins,Therapeutic Tablet 1 TABLET PO (08:01)
[2024-04-21] MEDS: Cholecalciferol (VIT D3) 25 MCG TABLET (1,000 UNITS) 50 MCG PO (08:01)
[2024-04-21] MEDS: Omega-3 Acid Ethyl Esters 1 GM Capsule PO (08:01)
[2024-04-21] MEDS: APIXABAN 5 MG TABLET PO ×2 (08:01→21:35)
[2024-04-21] MEDS: Senna/Docusate Sodium 1 Tablet 2 TABLET PO (08:01)
[2024-04-21 09:36] LABS: Absolute Lymphocyte Count 2.63 X10^3/uL (0.83-4.51); Absolute Neutrophil Count 3.7 X10^3/uL (2.0-7.7); Basophil# 0.01 X10^3/uL; Basophil% 0.1 % (0-1); Eosinophil# 0.01 X10^3/uL; Eosinophils% 0.1 % (0-5); Hematocrit 40.4 % (37-47); Hemoglobin 13.3 g/dL (12.0-15.0); Lymphocyte # 2.63 X10^3/ul (0.83-4.51); Lymphocyte % 34.1 % (19-41); Mean Corp Hgb Conc 32.9 g/dL (32-36); Mean Corpuscular Hgb 30.6 pg (27.0-32.0); Mean Corpuscular Volume 93.1 fL (81-99); Mean Platelet Vol. 10.9 fl (6.2-12.0); Monocyte# 1.28 X10^3/uL; Monocyte% 16.6 % (0-10); NRBC Flagged by Analyzer 0 % (0-5); Neutrophil # 3.74 X10^3/uL (2.7-7.7); Neutrophil % 48.6 % (47-70); POSITIVE COUNT YES; Platelet Count 98 K/mm3 (150-450); RBC Distribution Width CV 12.3 % (11.6-14.6); RBC Distribution Width SD 42.3 fl (35.1-43.9); Red Blood Count 4.34 M/mm3 (4.2-5.4); White Blood Count 7.7 K/mm3 (4.4-11.0)
[2024-04-21 09:50] LABS: AST(SGOT) 16 U/L (15-37); Alanine Aminotransfer ALT/SGPT 12 U/L (13-56); Albumin, Serum 3.3 g/dL (3.2-5.0); Alkaline Phosphatase 62 U/L (45-117); Anion Gap 6 (5-15); BUN 12 mg/dL (7-18); BUN/Creat Ratio 14.5 RATIO (10-20); Calcium,Total 9.2 mg/dL (8.5-10.1); Chloride 101 mmol/L (98-107); Creatinine, Serum 0.83 mg/dL (0.55-1.02); EST Glomerular Filtration Rate 69 mL/min (>60); Est Glom Filt Rate - Afr Amer 84 mL/min (>60); Estimated Creatinine Clearance 41.98 ml/min; Globulin 3.3 g/dL (2.2-4.2); Glucose 167 mg/dL (74-106); Magnesium 2.1 mg/dL (1.6-2.6); Potassium 3.8 mmol/L (3.5-5.1); Protein, Total 6.6 g/dL (6.4-8.2); Sodium Level 136 mmol/L (136-145)
[2024-04-21 09:54] LABS: Differential Indicated SCAN CRITERIA MET
[2024-04-21 10:49] LABS: Platelet Estimate SLT DEC (ADEQ)
[2024-04-21] MEDS: Loperamide 2 MG Capsule PO (13:33)
--- NOTE | 2024-04-21 14:06 | CASEMGMT ---
Rehab Unit Social Work admit note: Sw met with patient to complete initial assessment. Introduced self and role. Patient confirmed code status as DNR-CC-A no intubation. Patient's BIMS was 04/01 and her discharge goal is to be discharged to home where she currently resides with her son, Espinoza. Patient was pleasant and engaging throughout conversation. Sw to continue to follow to assist with any dischrge planning needs. Naun Velásquez, MOLDED FRAMES ASSEMBLER, MOLDED GOODS CONTROLS OPERATOR
--- NOTE | 2024-04-21 14:19 | PCM.RU.PYE ---
Admission Information Primary Diagnosis:: Stroke. Status Changes from Prescreening?: No changes Identified Actual Problem List:: Mobility Impaired, Self Care Deficit, Ineffective Communication, Know.Dfct/Disease Process, Know.Dfct of Medicaitons, BP, Hypertension and Alteration-Leisure Activ. Potential Problem List:: DVT, Bleeding, Infection, UTI, Aspiration, Falls, Skin Integrity and Depression Risk of Complications DVT: GWENDOLYN Hose Bleeding: Monitor Lab Values, Nursing to Teach Precautions for anti-coagulation therapy., Wound, if applicable, to be assessed every shift. and Stroke patients assessed for lethargy or change in status. Infection: Clinical Staff to Monitor for S/S of infection: and S/S of infection include fever, redness, warmth, etc. Urinary Tract Infection: Monitor for frequency, burning, discomfort, or incontinence. and Nursing will obtain urine sample for urinalysis and C&S when ordered. Aspiration: Clinical staff will monitor for coughing, drooling, congestion., Speech will evaluate swallowing and dsyphasia. and Nursing will monitor patient swallowing during meals. Falls: Patient will be evaluated for Fall Precautions and Patient will be placed on Fall Precautions as indicated per protocol. Skin Breakdown: Nursing will assess skin daily using assessment tool. and Nursing will place on Skin Breakdown Precautions as indicated. Pain: Clinical staff will assess patient's pain level per protocol., Medications will be given, if needed, and the pain level reassessed. and Other methods: Massage, distraction, decrease stimulus, etc. used PRN. Plan of Care Patient requires physician specializing in physical medicine and rehab oversight to provide close medical supervision of rehab issues including: Pain Management, Sleep Problems, Bowel and Bladder, Medical and co-morbidity Management, DVT prophylaxis, Rehabilitation Leadership and Coordination of treatment team Patient needs Physical Therapy: For a minimum of 1 hour Patient needs Physical Therapy to improve:: Mobility, Strengthening, Transfers, Stretching, ROM, Endurance, Stairs, Gait and Balance Patient needs Occupational Therapy: For a minimum of 1 hour Patient needs Occupational Therapy to improve ADL's incl.: Eating, Grooming, Bathing, Dressing, Toileting, Toilet transfers, Community Reintegration, Higher functioning activities, Household tasks, Adaptive Equipment, Splinting and Other activities as determined Patient requires speech therapy: For a minimum of 1 hour Patient requires speech therapy for: Swallowing, Cognition, Language Skills and Compensatory Strategies Patient requires 24/ Rehabilitation Nursing for: Pain Issues, Identifying and preventing risk factors, Monitoring and reporting current medical conditions, Assisting with ambulation, transfer, and all ADL's, Teaching patients about disease process and medications, Family teaching, Providing safe environment, Bowel and Bladder Issues, Skin integrity and Medication Management Patient needs Apparatus Engineering Technologist/ Case Management for: Discharge Planning, Arranging Home Equipment or Services and Family Interventions Patient needs Dietary and Nutrition Services for: Adequate Nutrition, Nutritional Supplements and Nutritional Education Goals Goals Patient will remain: free from falls and or injury at time of discharge. Patient will perform eating at: Standby Assist. Patient will perform bed mobility at: - (Sup.) Patient will complete transfers from bed to chair at: Standby Assist. Patient will ambulate: with standby assist (LRD.) and - (150 feet.) Patient will complete upper body dressing at: - (Setup.) Patient will complete lower body dressing at: - (Sup with AE.) Patient will complete toilet transfer at: - (Sup.) Patient will complete toileting at: - (Sup.) Patient will perform bathing at: - (Sup with AE.) Patient will perform Tub/Shower transfer at: - (Sup using DME PRN.) Patient will complete grooming at: - (Sup.) Patient will complete home management skills at: - (Sup.) Patient will have pain level of: of 3 or less Patient's skin will: remain intact and free from infection. Patient will receive: adequate nutrition. Discharge Planning Pt Prognosis for Sig. Practical Improv. w/in Reasonable Time: Good Estimated Length of stay (days): 14 Anticipated D/C Destination: Home with Outpt Therapy Was Preadmission Assessment Accurate?: Yes
--- NOTE | 2024-04-21 15:08 | CHAPLAIN ---
Type of Pastoral Visit ___ Initial Visit _x__ Follow-up Visit ___ On-call Visit ___ General Patient Visit ___ Spiritual Assessment ___ Family Conference ___ Bereavement ___ Rapid Response ___ Code Blue ___ Other (describe below) Pastoral Care Referral From ___ Patient _x__ Family ___ Nurse ___ Physician ___ Rough Rice Tender ___ Aerial Installer ___ Other (describe below) Sacrament/Intervention ___ Active listening ___ Anointing ___ Catholic ___ Bereavement ___ Communion ___ Ryann exploration ___ ___ Life review _x__ Prayer ___ Reconciliation ___ Sacrament of Sick _x__ Supportive presence ___ Wedding ___ Other (describe below) Pastoral Comments follow up to patient that was moved to Rehab from [facility]; pt is resting but awakened easily to her name; pt states that she is doing fine and has no new needs; pt asks about the weather; prayer was welcomed
[2024-04-21 16:09] VITALS: BMI 34.0
[2024-04-21 17:32] VITALS: BP 118/55; PULSE 66; RESP 16; TEMP 36.3; O2SAT 93
[2024-04-21] MEDS: Atorvastatin Calcium 40 MG Tablet PO (21:35)
[2024-04-21] MEDS: Acetaminophen 500 MG Tablet 1000 MG PO (21:35)
[2024-04-22 06:00] VITALS: BP 111/70; PULSE 59; RESP 18; TEMP 36.2; O2SAT 93
[2024-04-22] MEDS: Omega-3 Acid Ethyl Esters 1 GM Capsule PO (08:46)
[2024-04-22] MEDS: Cholecalciferol (VIT D3) 25 MCG TABLET (1,000 UNITS) 50 MCG PO (08:46)
[2024-04-22] MEDS: APIXABAN 5 MG TABLET PO ×2 (08:46→21:27)
[2024-04-22 08:47] VITALS: BP 143/49; PULSE 68
[2024-04-22] MEDS: Metoprolol(XL)Succ 50 MG Tablet PO (08:47)
[2024-04-22] MEDS: Multivitamins,Therapeutic Tablet 1 TABLET PO (08:47)
[2024-04-22 12:43] VITALS: BMI 34.0
[2024-04-22 17:30] VITALS: BP 123/66; PULSE 61; RESP 16; TEMP 36.5; O2SAT 93
[2024-04-22] MEDS: 0.9% Saline Lock 10 ML Syringe IV (21:27)
[2024-04-22] MEDS: Atorvastatin Calcium 40 MG Tablet PO (21:27)
[2024-04-23 05:49] VITALS: BP 118/38; PULSE 63; RESP 17; TEMP 36.3; O2SAT 95
[2024-04-23] MEDS: Acetaminophen 500 MG Tablet 1000 MG PO ×2 (05:53→21:15)
[2024-04-23 08:43] VITALS: BP 154/44; PULSE 67
[2024-04-23] MEDS: Multivitamins,Therapeutic Tablet 1 TABLET PO (08:43)
[2024-04-23] MEDS: Metoprolol(XL)Succ 50 MG Tablet PO (08:43)
[2024-04-23] MEDS: Cholecalciferol (VIT D3) 25 MCG TABLET (1,000 UNITS) 50 MCG PO (08:43)
[2024-04-23] MEDS: APIXABAN 5 MG TABLET PO ×2 (08:43→21:15)
[2024-04-23] MEDS: Omega-3 Acid Ethyl Esters 1 GM Capsule PO (08:43)
[2024-04-23] MEDS: Menthol/Lanolin/Calamine/Znox 113 GM Tube 1 APPLIC TOPICAL ×2 (09:33→21:13)
[2024-04-23 10:50] VITALS: BMI 34.0
[2024-04-23 18:00] VITALS: BP 124/34; PULSE 60; RESP 16; TEMP 36.3; O2SAT 91
[2024-04-23] MEDS: Senna/Docusate Sodium 1 Tablet 2 TABLET PO (21:15)
[2024-04-23] MEDS: Atorvastatin Calcium 40 MG Tablet PO (21:15)
[2024-04-24 05:18] VITALS: BP 144/64; PULSE 63; RESP 18; TEMP 36.3; O2SAT 94
--- NOTE | 2024-04-24 08:17 | CASEMGMT ---
Social Work IDT met with patient and two sons for Team meeting. Discussed patient's progress in PT/OT/ST/SN. Educated to Medicare benefit. SW to update pt and sons once approved days are given from . Pt's goal is to return home living with sonEspinoza. Will ReTeam weekly. SW will assist with DC planning. Gogo Watson, FORMULA MAKER INFORMATION SYSTEMS SECURITY OFFICER
[2024-04-24] MEDS: Menthol/Lanolin/Calamine/Znox 113 GM Tube 1 APPLIC TOPICAL ×2 (08:52→20:36)
[2024-04-24 08:53] VITALS: PULSE 62
[2024-04-24] MEDS: Omega-3 Acid Ethyl Esters 1 GM Capsule PO (08:53)
[2024-04-24] MEDS: Metoprolol(XL)Succ 50 MG Tablet PO (08:53)
[2024-04-24] MEDS: Cholecalciferol (VIT D3) 25 MCG TABLET (1,000 UNITS) 50 MCG PO (08:53)
[2024-04-24] MEDS: APIXABAN 5 MG TABLET PO ×2 (08:53→20:29)
[2024-04-24] MEDS: Multivitamins,Therapeutic Tablet 1 TABLET PO (08:53)
[2024-04-24 09:55] VITALS: BMI 34.0
--- NOTE | 2024-04-24 11:26 | PN.REHAB_ITS ---
Subjective Subjective Patient seen, examined on Team Rounds. Both ernesto Doran and Michael present for team meeting, Krystyna is a hard worker, and progressing with therapy. Team anticipates discharge home when done with inpatient therapy. She had some muscle aches in her legs, but alleviated with Tylenol. Michael asked why patient's Xarelto was stopped prior to having a stroke, there was mention of nosebleed requiring medical attention, but I told him reason is unclear. Objective Data Objective Data Vital Signs: Vital Signs Temp Pulse Resp BP Pulse Ox O2 Del Method 97.3 F L 62 18 144/64 H 94 Room Air 04/24/24 05:18 04/24/24 08:53 04/24/24 05:18 04/24/24 05:18 04/24/24 05:18 04/24/24 09:58 Oxygen Delivery Method Room Air Weight: 76.43 kg Body Mass Index (BMI) 34.0 Intake & Output: Intake and Output for Last 24 Hours 04/22/24 04/23/24 04/24/24 23:59 23:59 23:59 Intake Total 1455 / 1655 1400 / 1400 660 / 660 Output Total 1250 / 1400 1700 / 1700 1000 / 1000 Balance 205 / 255 -300 / -300 -340 / -340 Lab / Micro Data 04/21/24 08:53 04/21/24 08:53 Indicators for Scoring Admitted with or Primary Diagnosis of CVA/Stroke: Yes Hx of CVA/Stroke: Yes Modified Sharita Score MRS Score at time of Evaluation: 4-Moderate/severe disability Physical Exam Const alert General Appearance: cooperative HEENT normocephalic Eyes PERRL and EOMs intact bilaterally Neck supple, no JVD and no carotid bruits Resp normal respiratory effort, normal air movement and clear to auscultation bilaterally Cardio regular rate and regular rhythm GI normal to inspection, nondistended, normoactive bowel sounds, non-tender and non-distended Extremity normal capillary refill General Extremity: Negative for edema Skin no rashes or lesions noted General Skin Exam: no breakdown Neuro Neuro Narrative: Left hemiparesis. Psych affect normal Appearance: appropriate Assessment & Plan Assessment/Plan (1) Debility: (2) CVA (cerebral vascular accident): (3) Left hemiparesis: (4) Paroxysmal atrial fibrillation: (5) Vitamin D deficiency: (6) Insomnia: (7) Hyperlipidemia: QUALIFIERS: Hyperlipidemia type: mixed hyperlipidemia Qualified Code(s): E78.2 - Mixed hyperlipidemia (8) Chronic diarrhea: (9) Chronic cough: PLAN: Plan 89 year old female with below past medical history hospitalized for multiple embolic strokes, left hemiparesis, not anticoagulated atrial fibrillation, admitted to for 3 hours daily rehabilitation, strengthening, prior to discharge home alone. * Debility - PT/OT/ST. * Pain - Tylenol 1000mg q6 prn pain (1-10). * Bowel - senna/colace 2 tablets bid, Dulcolax 10mg pr x 1 prn, MOM 30mL po x 1 prn, Loperamide 2mg q6 prn. * DVT prophylaxis - on Eliquis. * Atrial fibrillation - Metoprolol succinate 50mg daily, Eliquis 5mg po bid. * Hyperlipidemia - Atorvastatin 40mg qhs, [place] 3 1 gm daily. * Chronic cough - Tessalon perles 200mg tid prn. * Vitam in D deficiency - D3 50mcg daily. * Nutrition - MVI 1 tablet daily.
[2024-04-24 13:30] VITALS: O2SAT 93
[2024-04-24] MEDS: Acetaminophen 500 MG Tablet 1000 MG PO (17:08)
[2024-04-24 17:25] VITALS: BP 126/46; PULSE 67; RESP 16; TEMP 36.5; O2SAT 93
[2024-04-24] MEDS: Atorvastatin Calcium 40 MG Tablet PO (20:28)
[2024-04-24] MEDS: MELATONIN 3 MG TABLET PO (20:29)
[2024-04-25 05:00] VITALS: BMI 34.0
[2024-04-25 06:00] VITALS: BP 117/42; PULSE 61; RESP 16; TEMP 36.2; O2SAT 94
[2024-04-25] MEDS: Cholecalciferol (VIT D3) 25 MCG TABLET (1,000 UNITS) 50 MCG PO (07:49)
[2024-04-25 07:50] VITALS: BP 117/42; PULSE 61
[2024-04-25] MEDS: Omega-3 Acid Ethyl Esters 1 GM Capsule PO (07:50)
[2024-04-25] MEDS: Menthol/Lanolin/Calamine/Znox 113 GM Tube 1 APPLIC TOPICAL ×2 (07:50→20:14)
[2024-04-25] MEDS: Multivitamins,Therapeutic Tablet 1 TABLET PO (07:50)
[2024-04-25] MEDS: APIXABAN 5 MG TABLET PO ×2 (07:50→20:11)
[2024-04-25] MEDS: 0.9% Saline Lock 10 ML Syringe IV (07:50)
[2024-04-25] MEDS: Metoprolol(XL)Succ 50 MG Tablet PO (07:50)
--- NOTE | 2024-04-25 10:27 | CASEMGMT ---
Social Work SW left VM with son, Espinoza, of Medicare approval of 13 days with DC 05/03. Gogo Watson, PAINT LABORATORY TECHNICIAN MACHINE OPERATIONS SUPERVISOR
--- NOTE | 2024-04-25 10:57 | PN_ITS ---
Subjective Subjective Afebrile VSS -heart rate is within normal limits. Blood pressure over the past 48 hours has ranged from 117/42 to 154/44. Maintaining appropriate oxygen saturation on RA Oral intake - FOOD good FLUIDS good Postvoid residuals x 3 are all less than 100. The last recorded bowel movement was on 04/22/2024 and she tells me that she feels constipated. Stool softeners are ordered as needed and she has not had any since arrival on rehab. She tells me she takes senna at times at home. Discussed with nursing - no problems that need addressed Reviewed the THERAPY notes Medication list reviewed. The EMR was reviewed. Past medical history is significant for hyperlipidemia, glucose intolerance, paroxysmal atrial fibrillation, hypertension Date of admission to rehab was 04/20/2024. Admitted to [facility] on 04/18/2024 for suspected ischemic CVA. Past medical history was positive for paroxysmal atrial fibrillation and she had been on Xarelto but it was reportedly discontinued by her tube skiver in the summer 2023 for an unknown reason. MRI of the brain on 04/18/2024 showed right frontal, right parietal lobe and left parietal lobes. Carotid ultrasound showed less than 50% stenosis in the bilateral carotid arteries. The right vertebral artery was patent and antegrade and the left vertebral flow was bidirectional. Transthoracic echocardiogram showed a 70% ejection fraction with stage I diastolic dysfunction and no regional wall motion abnormalities. The atria were of normal size. There was no significant valvular heart disease. On 04/20/2024 tele-neurology recommended starting anticoagulation. She was started on Eliquis 5 mg p.o. twice daily and then transferred to acute inpatient rehab on 04/20/2024. All lab was personally reviewed. On 04/21/2024 the platelet count was low at 98,000. She was also thrombocytopenic when admitted to the hospital on 04/07/2024 for an RSV infection. At that time platelets were 78,000. Chronic thrombocytopenia he is not listed on the past medical history obtained from the H&P. Triglycerides were 106 and the total cholesterol was 133 with an LDL of 46 and an HDL of 66 on no statin. Hemoglobin A1c was not checked. She denies cephalgia, lightheadedness, chest pain, palpitations, nausea/vomiting, abdominal pain, dysuria and calf tenderness. She had RSV within the past month and has a persistent cough with clear sputum. It is not keeping her awake at night. She is complaining of some pain from the left knee when working with therapy but she denies pain currently sitting in the chair. Objective Data Objective Data Vital Signs: Vital Signs Temp Pulse Resp BP Pulse Ox O2 Del Method 97.2 F L 61 16 117/42 L 94 Room Air 04/25/24 06:00 04/25/24 07:50 04/25/24 06:00 04/25/24 07:50 04/25/24 06:00 04/25/24 06:00 Oxygen Delivery Method Room Air Weight: 168 lb 7.989 oz Body Mass Index (BMI) 34.0 Intake & Output: Intake and Output for Last 24 Hours 04/23/24 04/24/24 04/25/24 23:59 23:59 23:59 Intake Total 1400 / 1400 1260 / 1560 740 / 740 Output Total 1700 / 1700 1100 / 1350 750 / 750 Balance -300 / -300 160 / 210 -10 / -10 Lab / Micro Data 04/21/24 08:53 04/21/24 08:53 Physical Exam Const alert, oriented x3 and no apparent distress General Appearance: cooperative HEENT HEENT Narrative: Mucous membranes are little dry. The tongue is not coated and there is no evidence of thrush. Eyes Eyes Narrative: Mild ptosis of the right eye which she tells me predated the recent strokes. It is likely related to hx of Salas's palsy. She also has a R facial droop. Neck supple Neck Narrative: She has a loud bruit over the left carotid artery and at the left ventricular outflow tract. Radial pulse on the left is strong, 2+. Resp normal respiratory effort, normal air movement and clear to auscultation bilaterally Resp Narrative: No conversational dyspnea Cardio regular rate, regular rhythm, no murmurs, no rub and no gallops Cardio Narrative: No ectopy GI normal to inspection, nondistended, normoactive bowel sounds, soft to palpation and non-tender GI Narrative: No guarding with palpation Extremity no calf tenderness General Extremity: Negative for clubbing or cyanosis Skin Rashes: no rashes Neuro Neuro Narrative: Mild ptosis of the right eye and right facial droop, more likely than not secondary to history of Salas's palsy in the past. No visual field cuts. Mild L side neglect, sumit with the LE. No extinction. No ataxia perceived. Weakness of the LUE.......falls to the bed by 10 sec. Weakness of the LLE.......drift but does not hit the bed. Able to follow simple commands. Appropriate. Psych Psych Narrative: Not fidgeting and not restless. Does not seem anxious. Appropriate affect. Appearance: appropriate Assessment & Plan Assessment/Plan (1) Debility: (2) Embolic stroke: QUALIFIERS: Precerebral and cerebral artery: unspecified cerebral artery Qualified Code(s): I63.40 - Cerebral infarction due to embolism of unspecified cerebral artery PLAN: Left parietal, right parietal, right frontal. (3) Paroxysmal atrial fibrillation: PLAN: Was previously on Xarelto but reportedly stopped by cardiology. Not on anticoagulation at the time of the embolic strokes. Started on Eliquis 5 mg twice daily on 04/20/2024. (4) Thrombocytopenia: PLAN: Etiology?. Acute versus chronic? (5) Left hemiparesis: (6) Hyperlipidemia: QUALIFIERS: Hyperlipidemia type: mixed hyperlipidemia Qualified Code(s): E78.2 - Mixed hyperlipidemia (7) Essential hypertension: (8) RSV infection: QUALIFIERS: RSV infection type: unspecified Qualified Code(s): B 33.8 - Other specified viral diseases PLAN: Recent RSV infection, admitted to the hospital on 04/07/2024. Persistent cough. (9) Salas's palsy: PLAN: Right eye ptosis and right facial droop secondary to the history of Salas's palsy in the past. (10) Hyperglycemia: PLAN: Plan 1. Continue therapy 2. Check hemoglobin A1c 3. Continue Eliquis 4. Obtain records from Dr. Ortega. His thrombocytopenia and new? Why did cardiology discontinue anticoagulation? 5. Unhappy with her diet. Will discontinue the salt restriction but continue fat restriction. 6. Artificial tears as needed for complaint of dry eyes 7. Start senna 1 p.o. twice daily and give 1 dose of milk of magnesia today for complaint of constipation with no bowel movement since 04/22/2024. Charges/Coding Visit Charges Inpatient E&M: 25391 Subs Hosp L2
[2024-04-25 16:32] LABS: Hemoglobin A1c 6.3 % (3.8-5.6)
[2024-04-25 17:00] VITALS: BMI 34.0
[2024-04-25 18:00] VITALS: BP 132/57; PULSE 61; RESP 16; TEMP 36.2; O2SAT 92
[2024-04-25] MEDS: MELATONIN 3 MG TABLET PO (20:09)
[2024-04-25] MEDS: Senna/Docusate Sodium 1 Tablet PO (20:10)
[2024-04-25] MEDS: Acetaminophen 500 MG Tablet 1000 MG PO (20:10)
[2024-04-25] MEDS: Atorvastatin Calcium 40 MG Tablet PO ×2 (20:11)
[2024-04-26 06:00] VITALS: BP 148/61; PULSE 62; RESP 14; TEMP 36.2; O2SAT 93; BMI 34.1
[2024-04-26 07:48] VITALS: BP 148/61; PULSE 62
[2024-04-26] MEDS: Senna/Docusate Sodium 1 Tablet PO ×2 (07:48→21:39)
[2024-04-26] MEDS: Metoprolol(XL)Succ 50 MG Tablet PO (07:48)
[2024-04-26] MEDS: Omega-3 Acid Ethyl Esters 1 GM Capsule PO (07:48)
[2024-04-26] MEDS: Multivitamins,Therapeutic Tablet 1 TABLET PO (07:48)
[2024-04-26] MEDS: Cholecalciferol (VIT D3) 25 MCG TABLET (1,000 UNITS) 50 MCG PO (07:48)
[2024-04-26] MEDS: APIXABAN 5 MG TABLET PO ×2 (07:48→21:40)
[2024-04-26] MEDS: Menthol/Lanolin/Calamine/Znox 113 GM Tube 1 APPLIC TOPICAL ×2 (07:50→21:40)
[2024-04-26] MEDS: 0.9% Saline Lock 10 ML Syringe IV (16:38)
[2024-04-26 16:51] VITALS: BMI 34.1
[2024-04-26 17:36] VITALS: BP 138/58; PULSE 64; RESP 16; TEMP 36.3; O2SAT 94
[2024-04-26 21:30] VITALS: PULSE 64; RESP 16; O2SAT 94; BMI 34.1
[2024-04-26] MEDS: MELATONIN 3 MG TABLET PO (21:39)
[2024-04-26] MEDS: Acetaminophen 500 MG Tablet 1000 MG PO (21:39)
[2024-04-27 05:46] VITALS: BP 144/54; PULSE 62; RESP 16; TEMP 36.3; O2SAT 93
[2024-04-27 08:06] VITALS: PULSE 62
[2024-04-27] MEDS: APIXABAN 5 MG TABLET PO ×2 (08:06→20:34)
[2024-04-27] MEDS: Multivitamins,Therapeutic Tablet 1 TABLET PO (08:06)
[2024-04-27] MEDS: Cholecalciferol (VIT D3) 25 MCG TABLET (1,000 UNITS) 50 MCG PO (08:06)
[2024-04-27] MEDS: Omega-3 Acid Ethyl Esters 1 GM Capsule PO (08:06)
[2024-04-27] MEDS: Metoprolol(XL)Succ 50 MG Tablet PO (08:06)
[2024-04-27] MEDS: Menthol/Lanolin/Calamine/Znox 113 GM Tube 1 APPLIC TOPICAL ×2 (08:07→20:35)
[2024-04-27] MEDS: Senna/Docusate Sodium 1 Tablet PO ×2 (08:07→20:35)
[2024-04-27] MEDS: Acetaminophen 500 MG Tablet 1000 MG PO ×2 (10:14→16:19)
--- NOTE | 2024-04-27 10:42 | PCM.PROGNOTE ---
Subjective Subjective Afebrile VSS - Maintaining appropriate oxygen saturation on RA Oral intake - FOOD good FLUIDS good She did have a bowel movement today and it is the first since 04/27/2024. She was restarted on senna scheduled 1 tablet twice daily. Discussed with nursing - no problems that need addressed Reviewed the THERAPY notes and discussed on team rounds. The therapist tell me that she is having more cognitive difficulty today. Medication list reviewed. Sleeping well. Denies pain. Denies shortness of breath, palpitations, lightheadedness, cephalgia, dysuria and calf tenderness. Objective Data Objective Data Vital Signs: Vital Signs Temp Pulse Resp BP Pulse Ox O2 Del Method 97.4 F L 62 16 144/54 H 93 Room Air 04/27/24 05:46 04/27/24 08:06 04/27/24 05:46 04/27/24 05:46 04/27/24 05:46 04/27/24 05:46 Oxygen Delivery Method Room Air Weight: 169 lb Body Mass Index (BMI) 34.1 Intake & Output: Intake and Output for Last 24 Hours 04/25/24 04/26/24 04/27/24 23:59 23:59 23:59 Intake Total 1580 / 1820 2260 / 2260 380 / 380 Output Total 1550 / 1750 2100 / 2100 1050 / 1050 Balance 30 / 70 160 / 160 -670 / -670 Lab / Micro Data 04/21/24 08:53 04/21/24 08:53 Physical Exam Const alert and no apparent distress General Appearance: cooperative Neck supple Neck Narrative: She has a loud bruit over the left carotid artery and at the left ventricular outflow tract. Radial pulse on the left is strong, 2+. Resp normal respiratory effort, normal air movement and clear to auscultation bilaterally Resp Narrative: No conversational dyspnea Cardio regular rate, regular rhythm, no murmurs, no rub and no gallops Cardio Narrative: No ectopy GI normal to inspection, nondistended, normoactive bowel sounds, soft to palpation and non-tender GI Narrative: No guarding with palpation Extremity no calf tenderness Skin Rashes: no rashes Psych cooperative Psych Narrative: She is pleasant and calm. She makes good eye contact when we talk. Able to focus on what is being discussed. Sleeping well at night and has a good appetite. Appearance: appropriate Assessment & Plan Assessment/Plan (1) Debility: (2) Embolic stroke: QUALIFIERS: Precerebral and cerebral artery: unspecified cerebral artery Qualified Code(s): I63.40 - Cerebral infarction due to embolism of unspecified cerebral artery (3) Paroxysmal atrial fibrillation: (4) Thrombocytopenia: (5) Left hemiparesis: (6) Cognitive dysfunction: (7) Prediabetes: PLAN: Plan 1. Continue therapy 2. Recheck a BMP and CBC in the a.m. 3. Needs a follow-up hemoglobin A1c in 1 year. Current hemoglobin A1c is 6.3%. she is aware that she has elevated BS'['s and that she needs to control her carb intake 4. Straight cath and obtain a UA today. 5. No change in her neuroexam today other than the increased difficulty with cognition. The neck is supple and she denies cephalgia. She has been afebrile and vital signs are stable. Will check a CBC with differential and a BMP in the AM. Charges/Coding Visit Charges Inpatient E&M: 17435 Subs Hosp L1
[2024-04-27 15:05] VITALS: BMI 34.1
[2024-04-27 16:52] LABS: Bacteria 0 SEEN /hpf (None Seen); Mucous, Urine 0 SEEN /hpf (<or=2+); Red Blood Cells-Urine 0 SEEN /hpf (0-5); Squamous Epithelial Cells - UA 0 SEEN /hpf (5-10); White Blood Cells 0 SEEN /hpf (0-5)
[2024-04-27 16:55] LABS: Color, Urine Yellow (Yellow); Glucose, Dipstick Normal (Normal); Ketone-Dipstick Negative (Negative); Leukocyte Esterase-Dipstick Negative /ul (Negative); Nitrite-Dipstick Negative (Negative); Occult Blood-Urine Negative /ul (Negative); Protein-Dipstick Negative (Negative); Specific Gravity, Urine 1.015 (1.002-1.030); Urine Bilirubin Dipstick Negative (Negative); Urine Clarity Clear (Clear); Urine Urobilinogen Normal (Normal)
[2024-04-27 17:40] LABS: Hematocrit 37.9 % (37-47); Hemoglobin 12.5 g/dL (12.0-15.0); Mean Corpuscular Hgb 30.9 pg (27.0-32.0); Mean Corpuscular Volume 93.6 fL (81-99); Mean Platelet Vol. 11.4 fl (6.2-12.0); POSITIVE COUNT YES; POSITIVE MORPHOLOGY YES; Platelet Count 92 K/mm3 (150-450); RBC Distribution Width CV 12.3 % (11.6-14.6); RBC Distribution Width SD 42.1 fl (35.1-43.9); Red Blood Count 4.05 M/mm3 (4.2-5.4); White Blood Count 11.3 K/mm3 (4.4-11.0)
[2024-04-27 17:41] LABS: Scan Indicated on CBC? Y/N YES- FLAGS NOTED
[2024-04-27 17:43] VITALS: BP 145/50; PULSE 76; RESP 15; TEMP 36.6; O2SAT 93
[2024-04-27 18:05] LABS: Differential Comment SCANNED
[2024-04-27 18:12] LABS: Anion Gap 5 (5-15); BUN 14 mg/dL (7-18); Calcium,Total 9.2 mg/dL (8.5-10.1); Chloride 100 mmol/L (98-107); Creatinine, Serum 0.78 mg/dL (0.55-1.02); EST Glomerular Filtration Rate 74 mL/min (>60); Est Glom Filt Rate - Afr Amer 90 mL/min (>60); Estimated Creatinine Clearance 43.62 ml/min; Glucose 142 mg/dL (74-106); Potassium 3.7 mmol/L (3.5-5.1); Sodium Level 136 mmol/L (136-145)
--- NOTE | 2024-04-27 19:15 | RAD_ITS ---
INDICATION: cough EXAMINATION/TECHNIQUE: X-RAY - XR Chest 2 Views COMPARISON: 04/18/2024 FINDINGS: LINES/DEVICES: None. LUNGS: Hazy right perihilar airspace opacity, no consolidation or pleural effusion. MEDIASTINUM AND CARDIOVASCULAR STRUCTURES: Cardiac silhouette stable within upper normal limits. BONES AND SOFT TISSUES: No acute changes. RAD/Chest PA and Lateral IMPRESSION: Right perihilar infiltrate consistent with pneumonia. Recommend short-term follow-up to complete resolution. Electronically Signed: Anson Fuentes MD at 20:57 EST ,
[2024-04-27] MEDS: Atorvastatin Calcium 40 MG Tablet PO (20:35)
[2024-04-27] MEDS: 0.9% Saline Lock 10 ML Syringe IV (23:33)
[2024-04-27] MEDS: Cefepime HCl 1 GM in 0.9% Normal Saline (50mL MB+) 50 ML IV (23:33)
[2024-04-28 00:51] VITALS: BMI 34.1
[2024-04-28 06:00] VITALS: BP 132/45; PULSE 80; RESP 18; TEMP 36.7; O2SAT 93
--- NOTE | 2024-04-28 10:27 | CASEMGMT ---
Addendum entered by Gogo Watson 04/28/24 15:39: [facility] can accept and will contact son to schedule a tour, per his request. SW to follow up with son at Team meeting on the next business day. Addendum entered by Gogo Watson 04/28/24 11:37: Son returned call with SNF choices - 1. [facility], 2. [facility] SW sent referrals via [facility]. Original Note: Social Work IDT discussed concerns with pt having rapid decline, and have concerns with pt discharging home with son. Dr recommending SNF stay for continued therapy and medical care. - SW phoned son, Espinoza, to discuss DC plans. Noted pt's decline and son visited last night and agreed. SW informed son that Dr is aware of decline and ordering tests. However, given DC 05/03, pt is unlikely unable to return home. Son agreed and stated pt knows that as well. All in agreement for SNF placement at [place]. SW offered to provide SNF list including quality and resource data via [facility] Guide. Son agreed to text link. SW sent. Son to review with pt and family and notify this worker at Team meeting of choices. SW to assist with DC planning. SHE Haile
[2024-04-28] MEDS: Cefepime HCl 1 GM in 0.9% Normal Saline (50mL MB+) 50 ML IV ×2 (10:48→22:35)
[2024-04-28] MEDS: Multivitamins,Therapeutic Tablet 1 TABLET PO (10:48)
[2024-04-28] MEDS: APIXABAN 5 MG TABLET PO ×2 (10:48→22:37)
[2024-04-28] MEDS: Omega-3 Acid Ethyl Esters 1 GM Capsule PO (10:48)
[2024-04-28 10:49] VITALS: BP 132/45; PULSE 80
[2024-04-28] MEDS: Cholecalciferol (VIT D3) 25 MCG TABLET (1,000 UNITS) 50 MCG PO (10:49)
[2024-04-28] MEDS: Metoprolol(XL)Succ 50 MG Tablet PO (10:49)
[2024-04-28] MEDS: 0.9% Saline Lock 10 ML Syringe IV ×3 (11:01→23:21)
[2024-04-28] MEDS: Menthol/Lanolin/Calamine/Znox 113 GM Tube 1 APPLIC TOPICAL ×2 (11:02→22:39)
--- NOTE | 2024-04-28 15:25 | PN_ITS ---
Subjective Subjective Day #2 cefepime. Afebrile VSS - Maintaining appropriate oxygen saturation on RA Oral intake - FOOD FLUIDS somewhat decreased today but has been good. Discussed with nursing - no problems that need addressed Reviewed the THERAPY notes Medication list reviewed. White blood cell count yesterday was increased at 11.3. Hemoglobin is stable at 12.5. Platelets are 92,000. BMP was unremarkable. A straight cath UA showed 0 bacteria and 0 white blood cells. Respiratory panel was negative. MRSA nasal swab was negative. COVID-19 antigen was negative. Chest x-ray was done and she had a poor inspiratory effort but there is a right perihilar infiltrate present. This was not present on a chest x-ray done 04/07/2024 when she had RSV. It was also not present on 04/18/2024. Objective Data Objective Data Vital Signs: Vital Signs Temp Pulse Resp BP Pulse Ox O2 Del Method 98.1 F 80 18 132/45 H 93 Room Air 04/28/24 06:00 04/28/24 10:49 04/28/24 06:00 04/28/24 10:49 04/28/24 06:00 04/28/24 10:00 Oxygen Delivery Method Room Air Weight: 169 lb Body Mass Index (BMI) 34.1 Intake & Output: Intake and Output for Last 24 Hours 04/26/24 04/27/24 04/28/24 23:59 23:59 23:59 Intake Total 2260 / 2260 1380 / 1380 100 / 100 Output Total 2100 / 2100 1500 / 1500 200 / 200 Balance 160 / 160 -120 / -120 -100 / -100 Lab / Micro Data 04/27/24 17:28 04/27/24 17:28 Labs: Laboratory Results - last 24 hr 04/27/24 16:20: Urine Color Yellow, Urine Clarity Clear, Urine pH 6.0, Ur Specific Coleman 1.015, Urine Protein Negative, Urine Glucose (UA) Normal, Urine Ketones Negative, Urine Occult Blood Negative, Urine Nitrite Negative, Urine Bilirubin Negative, Urine Urobilinogen Normal, Ur Leukocyte Esterase Negative, Urine RBC 0 SEEN, Urine WBC 0 SEEN, Ur Squamous Epith Cells 0 SEEN, Urine Bacteria 0 SEEN, Urine Mucus 0 SEEN 04/27/24 17:28: WBC 11.3 H, RBC 4.05 L, Hgb 12.5, Hct 37.9, MCV 93.6, MCH 30.9, MCHC 33.0, RDW Std Deviation 42.1, RDW Coeff of Tanner 12.3, Plt Count 92 L, MPV 11.4, Differential Comment SCANNED, Sodium 136, Potassium 3.7, Chloride 100, Carbon Dioxide 31.0, Anion Gap 5, BUN 14, Creatinine 0.78, Estim Creat Clear Calc 43.62, Est GFR (MDRD) Af Amer 90, Est GFR (MDRD) Non-Af 74, BUN/Creatinine Ratio 18.0, Glucose 142 H, Calcium 9.2 Micro: Microbiology 04/27/24 19:54 Mucosa - Nasopharyngeal Respiratory Panel (PCR) - Final 04/27/24 18:50 Nasal Secretion MRSA (PCR) - Final 04/27/24 18:50 Nasal Secretion SARS-CoV-2 Antigen (Rapid) - Final Radiography Diagnostic Testing: Radiology Impression Chest X-Ray 04/27/24 19:15 IMPRESSION: Right perihilar infiltrate consistent with pneumonia. Recommend short-term follow-up to complete resolution. Electronically Signed: Anson Fuentes MD at 20:57 EST , Physical Exam Const alert, oriented x3 and no apparent distress Constitutional Narrative: Sitting in the recliner at the bedside. Confusion is better today than it was yesterday but she is feeling weak. General Appearance: cooperative HEENT moist oral mucous membranes Resp normal respiratory effort Resp Narrative: Poor air exchange in the bases posteriorly. No cough with deep breath. No wheezing. Few crackles in the R base, coarse. Few crackles on on left anteriorly. No tachypnea and no labored breathing. Cardio regular rate and regular rhythm GI normal to inspection, nondistended, normoactive bowel sounds, soft to palpation and non-tender GI Narrative: No guarding with palpation. Extremity no calf tenderness Assessment & Plan Assessment/Plan (1) Debility: (2) Embolic stroke: QUALIFIERS: Precerebral and cerebral artery: unspecified cerebral artery Qualified Code(s): I63.40 - Cerebral infarction due to embolism of unspecified cerebral artery (3) Paroxysmal atrial fibrillation: (4) Thrombocytopenia: (5) Left hemiparesis: (6) Cognitive dysfunction: (7) Prediabetes: (8) Secondary bacterial pneumonia: PLAN: Plan 1. Continue therapy 2. Attempt to obtain a sputum sample. 3. Continue cefepime for 3 days and then transition to an oral antibiotic. 4. Encouraged her to increase her fluid intake today. 5. Recheck a CBC and BMP on Wednesday. Suspect the PNA is due to secondary bacterial infection after recent RSV. Charges/Coding Visit Charges Inpatient E&M: 52729 Subs Hosp L2
[2024-04-28 18:00] VITALS: BP 99/40; PULSE 85; RESP 17; TEMP 36.7; O2SAT 92
--- NOTE | 2024-04-28 21:12 | NURSING ---
Pt had assisted fall to floor after using bsc. No injuries. Pt left leg buckled while nurse was assisting pt with pericare. Pt slid down this nurses leg to floor with no injury, she did not hit her head or any other part of her body. VSS 98.8, HR 82 reg, bp 147/53, Spo2 94%, rr 18. Pt denies any discomfort or pain. Dr. Enriquez notified. No further orders. Genetics Physician Keiko notified. Pt son Michael called and notified.
[2024-04-28] MEDS: Senna/Docusate Sodium 1 Tablet PO (22:38)
[2024-04-28] MEDS: Atorvastatin Calcium 40 MG Tablet PO (22:38)
[2024-04-29 06:00] VITALS: BP 129/53; PULSE 85; RESP 16; TEMP 36.6; O2SAT 94
[2024-04-29] MEDS: Cholecalciferol (VIT D3) 25 MCG TABLET (1,000 UNITS) 50 MCG PO (08:06)
[2024-04-29 08:07] VITALS: PULSE 85
[2024-04-29] MEDS: APIXABAN 5 MG TABLET PO ×2 (08:07→20:49)
[2024-04-29] MEDS: Senna/Docusate Sodium 1 Tablet PO ×2 (08:07→20:49)
[2024-04-29] MEDS: Menthol/Lanolin/Calamine/Znox 113 GM Tube 1 APPLIC TOPICAL ×2 (08:07→20:48)
[2024-04-29] MEDS: Multivitamins,Therapeutic Tablet 1 TABLET PO (08:07)
[2024-04-29] MEDS: Omega-3 Acid Ethyl Esters 1 GM Capsule PO (08:07)
[2024-04-29] MEDS: Metoprolol(XL)Succ 50 MG Tablet PO (08:07)
[2024-04-29] MEDS: Cefepime HCl 1 GM in 0.9% Normal Saline (50mL MB+) 50 ML IV ×2 (09:37→21:48)
[2024-04-29] MEDS: 0.9% Saline Lock 10 ML Syringe IV ×2 (09:37→21:53)
[2024-04-29 10:38] VITALS: BMI 34.1
[2024-04-29 17:34] VITALS: BP 131/63; PULSE 93; RESP 18; TEMP 36.6; O2SAT 93
[2024-04-29] MEDS: Atorvastatin Calcium 40 MG Tablet PO (20:49)
[2024-04-29] MEDS: Acetaminophen 500 MG Tablet 1000 MG PO (20:52)
[2024-04-30 03:46] VITALS: BMI 34.1
[2024-04-30 06:12] VITALS: BP 113/64; PULSE 76; RESP 16; TEMP 36.2; O2SAT 98
[2024-04-30] MEDS: Multivitamins,Therapeutic Tablet 1 TABLET PO (08:43)
[2024-04-30] MEDS: Cholecalciferol (VIT D3) 25 MCG TABLET (1,000 UNITS) 50 MCG PO (10:01)
[2024-04-30] MEDS: APIXABAN 5 MG TABLET PO ×2 (10:01→19:34)
[2024-04-30] MEDS: Omega-3 Acid Ethyl Esters 1 GM Capsule PO (10:01)
[2024-04-30] MEDS: Senna/Docusate Sodium 1 Tablet PO ×2 (10:01→19:35)
[2024-04-30 10:02] VITALS: PULSE 76
[2024-04-30] MEDS: Metoprolol(XL)Succ 50 MG Tablet PO (10:02)
[2024-04-30] MEDS: Menthol/Lanolin/Calamine/Znox 113 GM Tube 1 APPLIC TOPICAL ×2 (10:04→19:33)
[2024-04-30] MEDS: Cefepime HCl 1 GM in 0.9% Normal Saline (50mL MB+) 50 ML IV (10:10)
[2024-04-30] MEDS: Glycerin/Hypromellose/PEG400 15 ml Bottle 2 DRP EACH EYE ×2 (10:29→14:44)
[2024-04-30] MEDS: Acetaminophen 500 MG Tablet 1000 MG PO ×2 (10:36→19:35)
[2024-04-30 13:29] VITALS: BMI 34.1
[2024-04-30 18:21] VITALS: BP 106/53; PULSE 77; RESP 17; TEMP 36.7
[2024-04-30] MEDS: cefuroxime axetiL 250 MG TABLET 500 MG PO (19:34)
[2024-04-30] MEDS: Atorvastatin Calcium 40 MG Tablet PO (19:34)
[2024-04-30] MEDS: 0.9% Saline Lock 10 ML Syringe IV (19:35)
[2024-05-01 04:32] VITALS: BMI 34.1
[2024-05-01 05:40] VITALS: BP 147/88; PULSE 63; RESP 17; TEMP 36.2; O2SAT 96
[2024-05-01 06:10] LABS: Anion Gap 2 (5-15); BUN 18 mg/dL (7-18); Calcium,Total 9.4 mg/dL (8.5-10.1); Chloride 100 mmol/L (98-107); Creatinine, Serum 0.64 mg/dL (0.55-1.02); EST Glomerular Filtration Rate 93 mL/min (>60); Est Glom Filt Rate - Afr Amer 112 mL/min (>60); Estimated Creatinine Clearance 43.62 ml/min; Glucose 148 mg/dL (74-106); Potassium 3.8 mmol/L (3.5-5.1); Sodium Level 133 mmol/L (136-145)
[2024-05-01 07:14] LABS: Absolute Lymphocyte Count 2.16 X10^3/uL (0.83-4.51); Absolute Neutrophil Count 4.8 X10^3/uL (2.0-7.7); Basophil# 0.05 X10^3/uL; Basophil% 0.6 % (0-1); Eosinophil# 0.08 X10^3/uL; Eosinophils% 0.9 % (0-5); Hematocrit 37.6 % (37-47); Hemoglobin 12.6 g/dL (12.0-15.0); Lymphocyte # 2.16 X10^3/ul (0.83-4.51); Lymphocyte % 24.6 % (19-41); Mean Corp Hgb Conc 33.5 g/dL (32-36); Mean Corpuscular Hgb 31.4 pg (27.0-32.0); Mean Corpuscular Volume 93.8 fL (81-99); Mean Platelet Vol. 11.8 fl (6.2-12.0); Monocyte# 1.64 X10^3/uL; Monocyte% 18.7 % (0-10); NRBC Flagged by Analyzer 0 % (0-5); Neutrophil # 4.78 X10^3/uL (2.7-7.7); Neutrophil % 54.5 % (47-70); POSITIVE COUNT YES; POSITIVE DIFFERENTIAL YES; RBC Distribution Width CV 12.4 % (11.6-14.6); RBC Distribution Width SD 42.7 fl (35.1-43.9); Red Blood Count 4.01 M/mm3 (4.2-5.4); White Blood Count 8.8 K/mm3 (4.4-11.0)
[2024-05-01 07:52] VITALS: PULSE 63
[2024-05-01] MEDS: Cholecalciferol (VIT D3) 25 MCG TABLET (1,000 UNITS) 50 MCG PO (07:52)
[2024-05-01] MEDS: Metoprolol(XL)Succ 50 MG Tablet PO (07:52)
[2024-05-01] MEDS: Senna/Docusate Sodium 1 Tablet PO ×2 (07:52→22:08)
[2024-05-01] MEDS: Omega-3 Acid Ethyl Esters 1 GM Capsule PO (07:52)
[2024-05-01] MEDS: Multivitamins,Therapeutic Tablet 1 TABLET PO (07:52)
[2024-05-01] MEDS: APIXABAN 5 MG TABLET PO ×2 (07:52→22:08)
[2024-05-01] MEDS: Menthol/Lanolin/Calamine/Znox 113 GM Tube 1 APPLIC TOPICAL ×2 (07:53→22:09)
[2024-05-01 08:04] LABS: Differential Indicated SCAN CRITERIA MET
[2024-05-01 08:05] LABS: Platelet Estimate SLT DEC (ADEQ)
--- NOTE | 2024-05-01 09:19 | PN_ITS ---
Subjective Subjective Day 07/24 of antibiotics for PNA Krystyna was seen on team rounds today. All 3 of her sons were present in the room and her sister was also present for this. Afebrile VSS - Maintaining appropriate oxygen saturation on RA Oral intake - FOOD good FLUIDS good Discussed with nursing - no problems that need addressed Reviewed the THERAPY notes Medication list reviewed. All lab drawn this morning was personally reviewed. The white blood cell count is now back to normal at 8.8. Neutrophils are 54.5% and immature granulocytes are within normal limits. Hemoglobin is stable at 12.6 and the plts were not reported due to clumping of PLT's. Krystyna tells me she is sleeping well at night. She has a good appetite. She denies cephalgia, lightheadedness, chest pain, palpitations, shortness of breath. She tells me she is coughing up some secretions now. She denies nausea/vomiting/abdominal pain, dysuria and calf tenderness. Krystyna was having memory difficulties even prior to the recent embolic CVA's. She was living with her eldest son who was assisting her. Family has noticed that her level of alertness and cognition significantly improved starting yesterday. Objective Data Objective Data Vital Signs: Vital Signs Temp Pulse Resp BP Pulse Ox O2 Del Method 97.1 F L 63 17 147/88 H 96 Room Air 05/01/24 05:40 05/01/24 07:52 05/01/24 05:40 05/01/24 05:40 05/01/24 05:40 05/01/24 05:40 Oxygen Delivery Method Room Air Weight: 169 lb Body Mass Index (BMI) 34.1 Intake & Output: Intake and Output for Last 24 Hours 04/29/24 04/30/24 05/01/24 23:59 23:59 23:59 Intake Total 2060 / 2060 1850 / 1850 640 / 640 Output Total 1110 / 1110 1000 / 1000 350 / 350 Balance 950 / 950 850 / 850 290 / 290 Lab / Micro Data 05/01/24 11:00 05/01/24 05:18 Labs: Laboratory Results - last 24 hr 05/01/24 05:18: WBC Cancelled, Corrected WBC Cancelled, RBC Cancelled, Hgb Cancelled, Hct Cancelled, MCV Cancelled, MCH Cancelled, MCHC Cancelled, RDW Std Deviation Cancelled, RDW Coeff of Tanner Cancelled, Plt Count Cancelled, MPV Cancelled, Immature Gran % (Auto) Cancelled, Neut % (Auto) Cancelled, Lymph % (Auto) Cancelled, Mchenry % (Auto) Cancelled, Eos % (Auto) Cancelled, Baso % (Auto) Cancelled, Absolute Neuts (auto) Cancelled, Absolute Lymphs (auto) Cancelled, Total Counted Cancelled, Neutrophils % (Manual) Cancelled, Band Neutrophils % Cancelled, Lymphocytes % (Manual) Cancelled, Monocytes % (Manual) Cancelled, Eosinophils % (Manual) Cancelled, Basophils % (Manual) Cancelled, Metamyelocytes % Cancelled, Myelocytes % Cancelled, Promyelocytes % Cancelled, Blast Cells % Cancelled, Plasma Cell % (Manual) Cancelled, Other Cells % Cancelled, Nucleated RBC % Cancelled, Nucleated RBCs/100 WBC Cancelled, Differential Comment Cancelled, Diff Path Review Cancelled, Hypersegmented Neuts Cancelled, Atypical Lymphocytes Cancelled, Reactive Lymphocytes Cancelled, Smudge Cells Cancelled, Toxic Granulation Cancelled, Toxic Vacuolation Cancelled, Dohle Bodies Cancelled, Kirti Rods Cancelled, Platelet Estimate Cancelled, Plt Morphology Comment Cancelled, RBC Morphology Cancelled 05/01/24 05:18: RBC Morphology Cancelled, Polychromasia Cancelled, Hypochromasia Cancelled, Basophilic Stippling Cancelled, Anisocytosis Cancelled, Microcytosis Cancelled, Macrocytosis Cancelled, Spherocytes Cancelled, Sickle Cells Cancelled, Target Cells Cancelled, Tear Drop Cells Cancelled, Ovalocytes Cancelled, Stomatocytes Cancelled, Salcedo-Theodore Bodies Cancelled, [place] Cells Cancelled, Bite Cells Cancelled, Crenated Cell Cancelled, Acanthocytes (Spur) Cancelled, Rouleaux Cancelled, Schistocytes Cancelled, Sodium 133 L, Potassium 3.8, Chloride 100, Carbon Dioxide 31.0, Anion Gap 2 L, BUN 18, Creatinine 0.64, Estim Creat Clear Calc 43.62, Est GFR (MDRD) Af Amer 112, Est GFR (MDRD) Non-Af 93, BUN/Creatinine Ratio 28.0 H, Glucose 148 H, Calcium 9.4 05/01/24 07:07: WBC 8.8, RBC 4.01 L, Hgb 12.6, Hct 37.6, MCV 93.8, MCH 31.4, MCHC 33.5, RDW Std Deviation 42.7, RDW Coeff of Tanner 12.4, Plt Count , MPV 11.8, Immature Gran % (Auto) 0.700, Neut % (Auto) 54.5, Lymph % (Auto) 24.6, Mchenry % (Auto) 18.7 H, Eos % (Auto) 0.9, Baso % (Auto) 0.6, Absolute Neuts (auto) 4.8, Absolute Lymphs (auto) 2.16, Nucleated RBC % 0, Platelet Estimate SLT MAR Micro: Microbiology 04/27/24 19:54 Mucosa - Nasopharyngeal Respiratory Panel (PCR) - Final 04/27/24 18:50 Nasal Secretion MRSA (PCR) - Final 04/27/24 18:50 Nasal Secretion SARS-CoV-2 Antigen (Rapid) - Final Physical Exam Const alert and oriented x3 Constitutional Narrative: Can tell me why she is not on rehab. More alert today and appropriate. General Appearance: cooperative Resp normal respiratory effort Resp Narrative: No conversational dyspnea. Lungs are diminished in the bases but clear to auscultation after few deep breaths. No cough with deep breathing. Effort and Inspection: Negative for tachypneic, respiratory distress or labored Cardio regular rate, regular rhythm and no gallops Cardio Narrative: No ectopy GI normal to inspection, nondistended, normoactive bowel sounds, soft to palpation and non-tender GI Narrative: No guarding with palpation. Bowels are moving more regularly now. 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 Will recheck in a few days. PLAN: Plan 1. Continue therapy 2. Continue cefuroxime 3. Recheck on the platelet count is 117,000. Her platelets do clump. 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 4. Sodium is mildly decreased at 133 today but the BUN and creatinine are stable. Will recheck the sodium in a few days. [facility] I encouraged them to consider [facility] for SNF since they have different levels of care on the same campus and it is easy to transition from 1 level to another. We discussed starting Aricept for suspected Alzheimer's dementia. Angie is agreeable to this and will start 5 mg nightly starting tonight. She is going to follow-up with neurology for the strokes and also for suspected dementia postdischarge from rehab. Charges/Coding Visit Charges Inpatient E&M: 69168 Subs Hosp L2
[2024-05-01] MEDS: cefuroxime axetiL 250 MG TABLET 500 MG PO ×2 (09:55→22:08)
[2024-05-01 11:05] LABS: POSITIVE COUNT YES
[2024-05-01 11:29] LABS: Platelet Count 117 K/mm3 (150-450)
--- NOTE | 2024-05-01 13:19 | CASEMGMT ---
Social Work IDT meeting held with 3 sons, sister and pt present for meeting. PT/OT/ST/SN updated on progress with therapy. PT with recent pneumonia which caused a setback with therapy, however pt is showing improvement today. SW updated pt and family that Medicare approved 13 days with discharge on 05/03/24. [facility] level of care. Pt's son toured [facility] and will be touring [place] [employer] today at 2pm. Team spoke with pt and sons regarding need for 24 hour supervision going forward and that pt may need [facility] or [facility] care after skilled stay. SW to follow up with family after visit to [employer] to determine dc destination. Phone call received from Daisy Julio ([phone]) [employer] at [facility]. Pt is currently enrolled in the Care Coordination Program. Pt currently goes to [facility] 2 days a week. Pt is eligible for 6 hours of aid services a week but is not currently receiving this benefit. SABRINA to notify Daisy of dc plan once set. [facility] [place]
[2024-05-01 16:21] VITALS: BMI 34.1
--- NOTE | 2024-05-01 16:32 | CASEMGMT ---
Addendum entered by Gogo Watson 05/02/24 15:26: [id number] completed and DC paperwork sent to [facility] via [employer]. SABRINA spoke with MANI Jose CM - notified of DC destination and faxed DC paperwork, Original Note: Social Work Return call from pt son who states family has chose [facility]. Call to [facility] admissions and they are able to accept pt on Wednesday. Physician updated. SABRINA met with pt and discussed dc plan and pt is agreeable to discharge to [facility] on Wednesday. DC Date 05/03/24 DC Disposition: [facility], skilled level of care under convalescent stay [facility] [place]
[2024-05-01 18:00] VITALS: BP 112/47; PULSE 72; RESP 17; TEMP 36.6; O2SAT 93
[2024-05-01] MEDS: Atorvastatin Calcium 40 MG Tablet PO (22:08)
[2024-05-01] MEDS: Donepezil HCl 5 MG Tablet PO (22:08)
[2024-05-01] MEDS: Acetaminophen 500 MG Tablet 1000 MG PO (22:17)
[2024-05-02 05:50] VITALS: BP 144/77; PULSE 76; RESP 18; TEMP 36.4; O2SAT 91
[2024-05-02] MEDS: Menthol/Lanolin/Calamine/Znox 113 GM Tube 1 APPLIC TOPICAL (09:04)
[2024-05-02 09:05] VITALS: PULSE 76
[2024-05-02] MEDS: Omega-3 Acid Ethyl Esters 1 GM Capsule PO (09:05)
[2024-05-02] MEDS: Multivitamins,Therapeutic Tablet 1 TABLET PO (09:05)
[2024-05-02] MEDS: cefuroxime axetiL 250 MG TABLET 500 MG PO ×2 (09:05→21:19)
[2024-05-02] MEDS: Metoprolol(XL)Succ 50 MG Tablet PO (09:05)
[2024-05-02] MEDS: Senna/Docusate Sodium 1 Tablet PO ×2 (09:05→21:19)
[2024-05-02] MEDS: APIXABAN 5 MG TABLET PO ×2 (09:05→21:19)
[2024-05-02] MEDS: Cholecalciferol (VIT D3) 25 MCG TABLET (1,000 UNITS) 50 MCG PO (09:05)
--- NOTE | 2024-05-02 10:11 | TREXTCAR_ITS ---
Diet Diet Order/Speech Therapy: 04/20/24 17:04 Diet: Cardiac - Heart Healthy Food consistency:: Regular Liquid Consistency:: Regular/Thin Dietary Modifications:: Fat Restricted Diet Comments: no sandy; cut food into bite size pieces Routine Orders/Code Status Enema Type: Fleetz Enema Frequency: Daily PRN Suppository Type: Dulcolax 10mg Suppository Frequency: Daily PRN Routine Lab Work: - (hemoccult stool. [facility] on 05/05/24. ) Code Status: DNRCC-A (No intubation) DC O2, CPAP, BIPAP needs Home O2 Discharge instructions: Yes Type of respiratory needs?: Oxygen (1-2 LPM PRN. Maintain O2 sat 90 or above. ) Oxygen frequency: Other (PRN) Other oxygen liters per minute: 1-2 Other oxygen frequency: PRN Therapies Weight Bearing: Full weight bearing Physical Therapy: Eval and Treat Occupational Therapy: Eval and Treat Speech Therapy: Eval and Treat Problem/Diagnosis (1) Debility: Status: Acute Code(s): R53.81 - Other malaise (2) Embolic stroke: Status: Acute Code(s): I63.9 - Cerebral infarction, unspecified Plan: Pt was off anticoagulation (stopped per Dr. Lama on 12/27/2026 since she had not had any recurrent AF in years ) at the time of the embolic CVA's in the R parietal lobe, the R frontal lobe and the L parietal lobe. Restarted on Eliquis. 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 Saw hematology in 2021 and had a work up.......no further W/U needed per notes. She has PLT clumping. PLT's normally ranging 90-115. (6) Left hemiparesis: Status: Acute Code(s): G81.94 - Hemiplegia, unspecified affecting left nondominant side (7) Cognitive dysfunction: Status: Acute Code(s): F09 - Unspecified mental disorder due to known physiological condition Plan: Had memory issues that preceded the strokes. Initially scored only 9/30 on the COG LOG. Improved to 12/30 prior to DC from rehab. Started on Aricept 5 mg @ HS for suspected dementia. (8) Prediabetes: Status: Acute Code(s): R73.03 - Prediabetes Plan: Hemoglobin A1c on 04/25/2024 was 6.3. (9) Secondary bacterial pneumonia: Status: Resolved Code(s): J15.9 - Unspecified bacterial pneumonia Plan: Respiratory panel was negative. COVID was negative. Could not obtain sputum. MRSA nasal swab was negative. Treated with 3 days of cefepime followed by Ceftin for an additional 4 days. White blood cell count on 04/27/2024 was 11.3 and dropped to 8.8 on 05/01/2024. Comment: More likely than not related to recent RSV infection.....secondary bacterial infection. (10) Acute encephalopathy: Status: Acute Code(s): G93.40 - Encephalopathy, unspecified Plan: Secondary to acute bacterial pneumonia. Much improved after 3 days of cefepime. 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 133 on 05/01/24, down from 136. Had been stable at 136 after the strokes. (12) Essential hypertension: Status: Chronic Code(s): I10 - Essential (primary) hypertension (13) Hyperlipidemia: Status: Chronic Code(s): E78.5 - Hyperlipidemia, unspecified Plan 1. DC to [facility] SN unit on 05/03/24 for additional therapy. 2. Started on Aricept 5 mg p.o. nightly on 05/01/2024. 3. Will need follow-up with neurology for embolic CVAs and suspected dementia. 4. Recheck a sodium or Wednesday Allergies/Procedures Done in Hospital Allergies propoxyphene (From Darvocet-N) Allergy (Unknown, Verified 04/18/24 11:36) unknown Sulfa (Sulfonamide Antibiotics) Allergy (Unknown, Verified 04/18/24 11:36) unknown Procedures: 2-D Echocardiogram (Transthoracic echocardiogram on 04/18/2024 showed a 70% left ventricular ejection fraction with no wall motion abnormalities and stage I diastolic dysfunction. The atria were of normal size. No bubble contrast study was done.) Type of Care/Length of Stay Estimated LOS: Convalescent Care Less Than 30 days Type of Care Needed: Skilled Rehab Potential: Good Prognosis: Good Additional Orders/Day of Discharge H&P will serve as current which was dated: 04/20/24 Day of Discharge: 05/03/24 Dietary and Speech Recommendations Dietitian Recommendations/Changes: Continue Cardiac / fat restricted diet as ordered./ Carb consistent Monitor for changes in pt nutritional status and make additional rec as indicated. Speech Linguistic Eval Summary: Pt. was oriented to self, month and date. She stated that the year was 1924 and was unable to state name of place (other than that she was aware it was a rehab place). When given 3 words, pt. was able to recall 1/3 after a [address] presented divergent naming tasks in which pt. was able name 2 animals in 1 minute and 4 words that start with the letter M in 1 minute. Minimal word finding difficulties noted during conversation (ex. she was unable to recall name of medication that she takes). She was able to name objects in her room without any difficulties (10/10 items presented). When prompted to recall recent daily events, pt. was able to recall 2/3 events independently. Follow Up Care Please follow up with your Primary Care Physician in: 05/10/2024 at 11:20 AM Please Follow Up With: Lionel Bernard MD Please Follow Up With: El Lama MD When: within the next 6-8 weeks Discharge Plan Admission Admit Date/Time: 04/20/24 16:49 Primary Reason for Your Visit: Post stroke debility Attending Provider: Angie Enriquez Primary Care Provider: Rufino Ortega Consulting Providers: Madhav Hoff Chi Discharge Orders/Prescriptions Prescriptions: New cefuroxime axetil 250 mg Tablet 500 mg PO Q12 Qty: 5 0RF acetaminophen 500 mg Tablet 1,000 mg PO Q6H PRN (Reason: Pain Score 1-10) Qty: 1 0RF bisacodyl 10 mg Suppository 10 mg HI X1 PRN (Reason: Constipation) Qty: 1 0RF donepezil 5 mg Tablet 5 mg PO QHS Qty: 1 0RF magnesium hydroxide 400 mg/5 mL Suspension 30 ml PO X1 PRN (Reason: Constipation) Qty: 30 0RF sennosides-docusate sodium [Stimulant Laxative Plus] 8.6-50 mg Tablet 1 tab PO BID Qty: 1 0RF melatonin 3 mg Tablet 3 mg PO QHS PRN (Reason: Insomnia) Qty: 1 0RF Artificial Tears(st-youx-xlyi) 1-0.2-0.2 % Drops 2 drp EACH EYE Q1H PRN (Reason: DRY EYES) Qty: 1 0RF Continued metoprolol succinate 50 mg tablet extended release 24 hr 50 mg PO DAILY cholecalciferol (vitamin D3) 50 mcg (2,000 unit) capsule 50 mcg PO DAILY multivitamin Tablet 1 tab PO DAILY omega-3 fatty acids [Fish Oil Concentrate] 1,000 mg capsule 1,000 mg PO DAILY loperamide 2 mg capsule 2 mg PO Q6H PRN (Reason: loose stool) atorvastatin 40 mg Tablet 40 mg PO QHS 30 Days Qty: 30 0RF Eliquis 5 mg Tablet 5 mg PO BID 30 Days Qty: 60 0RF Discontinued Nighttime Sleep-Aid (doxylamn) 25 mg tablet 25 mg PO QHS PRN (Reason: Sleep) acetaminophen 500 mg tablet 500 mg PO Q6H PRN (Reason: Pain) benzonatate 100 mg capsule 200 mg PO TID PRN PRN (Reason: cough) Referrals / Follow Up: Rufino Ortega MD [Primary Care Provider] - 05/10/24 11:20 am Lionel Bernard MD [Non-Staff -Ordering Privileges] - Disposition Disposition (needs filled in before D/C Order can be placed): Custodial Facility (2) Embolic stroke Qualifiers: Precerebral and cerebral artery: unspecified cerebral artery Qualified Code(s): I63.40 - Cerebral infarction due to embolism of unspecified cerebral artery (13) Hyperlipidemia Qualifiers: Hyperlipidemia type: mixed hyperlipidemia Qualified Code(s): E78.2 - Mixed hyperlipidemia
--- NOTE | 2024-05-02 11:17 | DS.PCM_ITS ---
Providers Date of Admission: 04/20/24 Date of Discharge: 05/03/24 Primary Care Physician: Dr. Rufino Ortega MD Reason For Visit: Debility secondary to embolic CVAs Diagnosis Discharge Diagnosis (1) Debility: Status: Acute Code(s): R53.81 - Other malaise (2) Embolic stroke: Status: Acute Code(s): I63.9 - Cerebral infarction, unspecified Qualifiers: Precerebral and cerebral artery: unspecified cerebral artery Qualified Code(s): I63.40 - Cerebral infarction due to embolism of unspecified cerebral artery Plan: Pt was off anticoagulation (stopped per Dr. Lama on 12/27/2026 since she had not had any recurrent AF in years ) at the time of the embolic CVA's in the R parietal lobe, the R frontal lobe and the L parietal lobe. Restarted on Eliquis. 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 Saw hematology in 2021 and had a work up.......no further W/U needed per notes. She has PLT clumping. PLT's normally ranging 90-115. (6) Left hemiparesis: Status: Acute Code(s): G81.94 - Hemiplegia, unspecified affecting left nondominant side (7) Cognitive dysfunction: Status: Acute Code(s): F09 - Unspecified mental disorder due to known physiological condition Plan: Had memory issues that preceded the strokes. Initially scored only 9/30 on the COG LOG. Improved to 12/30 prior to DC from rehab. Started on Aricept 5 mg @ HS for suspected dementia. (8) Prediabetes: Status: Acute Code(s): R73.03 - Prediabetes Plan: Hemoglobin A1c on 04/25/2024 was 6.3. (9) Secondary bacterial pneumonia: Status: Resolved Code(s): J15.9 - Unspecified bacterial pneumonia Plan: Respiratory panel was negative. COVID was negative. Could not obtain sputum. MRSA nasal swab was negative. Treated with 3 days of cefepime followed by Ceftin for an additional 4 days. White blood cell count on 04/27/2024 was 11.3 and dropped to 8.8 on 05/01/2024. (10) Acute encephalopathy: Status: Acute Code(s): G93.40 - Encephalopathy, unspecified Plan: Secondary to acute bacterial pneumonia. Much improved after 3 days of cefepime. 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 133 on 05/01/24, down from 136. Had been stable at 136 after the strokes. (12) Essential hypertension: Status: Chronic Code(s): I10 - Essential (primary) hypertension (13) Hyperlipidemia: Status: Chronic Code(s): E78.5 - Hyperlipidemia, unspecified Qualifiers: Hyperlipidemia type: mixed hyperlipidemia Qualified Code(s): E78.2 - Mixed hyperlipidemia Plan 1. DC to [facility] SN unit on 05/03/24 for additional therapy. 2. Started on Aricept 5 mg p.o. nightly on 05/01/2024. 3. Will need follow-up with neurology for embolic CVAs and suspected dementia. 4. Recheck a sodium or Wednesday Medications at Discharge Home Medications cholecalciferol (vitamin D3) 50 mcg (2,000 unit) capsule 50 mcg PO DAILY supplement 10/10/20 metoprolol succinate 50 mg tablet,extended release 24 hr 50 mg PO DAILY HTN 10/10/20 multivitamin 1 tab PO DAILY supplement 10/10/20 omega-3 fatty acids 1,000 mg capsule (Fish Oil Concentrate) 1,000 mg PO DAILY cholesterol 10/10/20 loperamide 2 mg capsule 2 mg PO Q6H PRN loose stool 07/03/22 apixaban 5 mg tablet (Eliquis) 5 mg PO BID AFIB 30 days #60 tabs 04/20/24 atorvastatin 40 mg tablet 40 mg PO QHS cholesterol 30 days #30 tabs 04/20/24 acetaminophen 500 mg tablet 1,000 mg (2 x 500 mg) PO Q6H PRN Pain Score 1-10 #1 TAB 05/02/24 bisacodyl 10 mg rectal suppository 10 mg GA X1 PRN Constipation #1 ea 05/02/24 cefuroxime axetil 250 mg tablet 500 mg (2 x 250 mg) PO Q12 #5 tabs 05/02/24 donepezil 5 mg tablet 5 mg PO QHS #1 TAB 05/02/24 magnesium hydroxide 400 mg/5 mL oral suspension 30 ml PO X1 PRN Constipation #30 mL 05/02/24 melatonin 3 mg tablet 3 mg PO QHS PRN Insomnia #1 TAB 05/02/24 peg [id number] 1 %-0.2 %-0.2 % eye drops (Artificial Tears ([id number])) 2 drp EACH EYE Q1H PRN DRY EYES #1 mL 05/02/24 sennosides 8.6 mg-docusate sodium 50 mg tablet (Stimulant Laxative Plus) 1 tab PO BID #1 TAB 05/02/24 Hospital Course Operations None Procedures 2-D Echocardiogram (Interpretation Summary Normal LV size. Left ventricular systolic function is normal. The left ventricular ejection fraction is 70 %. Stage 1 diastolic dysfunction. Contrast injection was performed. ) Summary of Care Provided Minutes Spent on Discharge: 40 Hospital Course: VINCENT KHANNA is an 89 YOF admitted to [facility] on 04/18/2024 for suspected ischemic CVA. Her past medical history was significant for paroxysmal atrial fibrillation. She had been taking Xarelto 20 mg daily until 12/28/2023 when it was stopped by [facility] because she had not had atrial fibrillation for years and it was felt that the risk of this medication outweighed the benefit. MRI of the brain on 04/18/2024 showed embolic CVAs in the right frontal, right parietal and left parietal lobes. Carotid ultrasound showed less than 50% stenosis in the bilateral carotid arteries. An echocardiogram showed a 70% ejection fraction with stage I diastolic dysfunction. The atria were of normal size and no bubble study was done. Teleneurology was consulted and recommended anticoagulation with Eliquis 5 mg twice daily. Vincent was transferred to the acute inpatient rehab unit at [facility] on 04/20/2024 for 3 hours of therapy daily to restore function/independence at or near her level prior to the recent embolic strokes. Her son was living with her and was her primary caregiver at home. She had been recently hospitalized from 02/06/2024 to 02/08/2024 for RSV. While on rehab Vincent developed a R perihilar infiltrate. Cough increased and the WBC count went up to 11.3. Respiratory panel, COVID antigen and an MRSA nasal swab were all negative. We could not obtain a sputum sample but this is presumed to be a bacterial pneumonia. Along with pneumonia she developed acute encephalopathy secondary to infection. She was started on cefepime 1 g IV every 12 hours and had 6 doses of this medication. She was then transitioned to Ceftin 500 mg twice daily for a total of 8 days of antibiotics. Mentation improved significantly after 3 days of cefepime and she was back to her baseline. She has a rare cough at discharge from rehab. Sodium dropped to 133 from 136 while she had PNA ( I assume due to SIADH associated with PNA). It had been stable at 136 prior to PNA. Vincent had left hemiparesis at admission to rehab. She also had significant cognitive dysfunction and scored only 9/30 on the COG LOG assessment given by speech therapy. She had been having some difficulties with memory prior to the recent RSV and strokes per her family. Prior to DC from rehab the COG LOG score improved to 12/30 which is still severely impaired. Vincent was very cooperative with therapy and she did progress, despite the set back when she had bacterial PNA. At the time of DC she has ambulated up to 150 feet on various surfaces with a front wheeled walker at min assist. PT has been using a light brace on the Left knee which tends to buckle at times. She is able to do 8 sit to stands in 30 seconds at min assist. She can a send/descend three 4 inch steps with 2 handrails at min assist. She is supervision/set up for eating and bathing. She requires minimal assistance with upper body dressing, lower body dressing and toilet transfer. She requires moderate assistance with toileting and she is contact-guard assist for tub/shower transfer. She is sleeping well at the time of discharge and has had a good appetite. She was started on Aricept 5 mg at on 05/01/24 for suspected dementia. Vincent will follow up with Dr. Ortega, Dr. Bernard and Dr. Lama post DC from rehab. She was transferred to fpc at [facility] on 05/03/2024 for additional therapy prior to making a decision on whether she will return home with her son or go to assisted living. Physical Exam Const alert and oriented x3 Constitutional Narrative: Can tell me why she is on rehab today.....strokes. More alert today and appropriate. General Appearance: cooperative HEENT head/scalp atraumatic Eyes PERRL, EOMs intact bilaterally, conjunctivae normal and no scleral icterus Eyes Narrative: No discharge from the eyes. 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 She also has a mild right facial droop. Neck Neck Narrative: She has a very loud bruit over the left carotid. Carotid US did not show significant carotid stenosis. the Left radial pulse is decreased.......possible L subclavian stenosis? Chest Chest: symmetrical chest wall rise Resp normal respiratory effort Resp Narrative: No conversational dyspnea. Lungs are diminished in the bases but clear to auscultation after few deep breaths. No cough with deep breathing. Effort and Inspection: Negative for tachypneic, respiratory distress or labored Cardio regular rate, regular rhythm, no murmurs, no rub and no gallops Cardio Narrative: No ectopy GI normal to inspection, nondistended, normoactive bowel sounds, soft to palpation and non-tender GI Narrative: No guarding with palpation. Bowels are moving more regularly now. Will continue with senna 1 tablet p.o. twice daily. Extremity no calf tenderness Extremity Narrative: Has some numbness in both hands.......more likely than not due to CTS. General Extremity: Negative for edema Skin no wounds, no jaundice and no petechiae Rashes: no rashes Neuro Neuro Narrative: Alert, oriented x 3. Having some difficulty remembering what I asked her to do. Right eye ptosis and mild facial droop on the right are chronic and secondary to remote history of Salas's palsy. No visual field cuts. Left side neglect is improved. No extinction. No ataxia. 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 At admission the left upper extremity fell to the bed prior to a count of 10 being reached but today she was able to hold it up, with drift, for 10 seconds without hitting the bed. Left lower extremity is still weak. Psych cooperative, affect normal and denies hallucinations Psych Narrative: Sleeping well at night and has a good appetite. Not anxious or depressed. Not fidgety or restless. Makes good eye contact when we are speaking. Weight / BMI Weight Weight: 169 lb Body Mass Index (BMI) 34.1 ABG / Lab / Microbiology Data 05/01/24 11:00 05/01/24 05:18 Laboratory: Laboratory Results - last 24 hr 05/01/24 11:00: Plt Count 117 L Microbiology: Microbiology 04/27/24 19:54 Mucosa - Nasopharyngeal Respiratory Panel (PCR) - Final 04/27/24 18:50 Nasal Secretion MRSA (PCR) - Final 04/27/24 18:50 Nasal Secretion SARS-CoV-2 Antigen (Rapid) - Final Indicators for Scoring Admitted with or Primary Diagnosis of CVA/Stroke: Yes Hx of CVA/Stroke: Yes Modified [place] Score MRS Score at time of Evaluation: 4-Moderate/severe disability NIHSS NIHSS 1a. Level of Consciousness: Alert; keenly responsive 1b. LOC Questions: Answers BOTH questions correctly. 1c. LOC Commands: Performs both tasks correctly. 2. Best Gaze: Normal 3. Visual: No visual loss 4. Facial Palsy: Minor paralysis (flattened nasolabial fold, asymmetry on smiling) (Mild right facial droop which is not due to recent stroke but due to chronic facial droop secondary to remote history of Salas's palsy.) 5a. Left Arm: Drift; arm drifts downward but doesn?t hit the bed 5b. Right Arm: No drift; arm holds 90 (or 45) degrees for full 10 seconds 6a. Left Leg: Drift; leg falls by the end of 5-seconds, but does not hit bed 6b. Right Leg: No drift; leg holds 30-degree position for full 5 seconds 7. Limb Ataxia: Absent 8. Sensory: Normal; no sensory loss 9. Best Language: No aphasia; normal 10. Dysarthria: Normal 11. Extinction and Inattention: No abnormality Total: 3 Stroke Questions Stroke Team Activated: No D/C Instructions DC O2, CPAP, BIPAP Needs Home Oxygen Instructions: Home O2 discharge Instructions Type of respiratory needs? Oxygen 05/02/24 10:44 DC Oxygen Instruction Oxygen frequency Other 05/02/24 10:44 Other oxygen liters per minute 1-2 05/02/24 11:17 Other oxygen frequency PRN 05/02/24 11:17 Home O2 Discharge instructions: Yes Type of respiratory needs?: Oxygen (1-2 LPM PRN. Maintain O2 sat 90 or above. ) Oxygen frequency: Other (PRN) Other oxygen liters per minute: 1-2 Other oxygen frequency: PRN DC home with Oxygen: No Please Follow Up With: Lionel Bernard MD Meaningful Use Info Meaningful Use Meaningful Use Diagnoses (Choose all that apply): Ischemic CVA CVA Therapy Assessed for PT,OT and/or ST?: Yes Ischemic Stroke Antithrombotic order at d/c?: No Reason antithrombotic not ordered: Medical Contraindication (hx of nosebleeds and she is on Eliquis now for AF with embolic CVA) Dx of Atrial fib/flutter?: Yes Anticoagulant at discharge?: Yes Statin Dosing Therapy Reference: STATIN DOSE THERAPY REFERENCE: * Patients > 75 years receive moderate or high dose statin therapy. * Patients 75 years or YOUNGER should receive HIGH intensity statin dose unless contraindicated. You will be required to document reason for non-treatment if statin daily dose does not meet guidelines. HIGH DOSE STATIN THERAPY DAILY Atorvastatin > than or = to 40 mg Rosuvastatin > than or = to 20 mg Amlodipine + Atorvastatin > than or = to 2.5/40 mg Ezetimibe + Simvastatin 10/80 mg Simvastatin 80mg Statins at discharge?: Yes Primary Dx Acute Ischemic CVA?: Yes IV thrombolytic ordered during stay?: No Discharge Plan Admission Admit Date/Time: 04/20/24 16:49 Primary Reason for Your Visit: Post stroke debility Attending Provider: Angie Enriquez Primary Care Provider: Rufino Ortega Consulting Providers: Madhav Hoff Chi Discharge Orders/Prescriptions Prescriptions: New cefuroxime axetil 250 mg Tablet 500 mg PO Q12 Qty: 5 0RF acetaminophen 500 mg Tablet 1,000 mg PO Q6H PRN (Reason: Pain Score 1-10) Qty: 1 0RF bisacodyl 10 mg Suppository 10 mg GA X1 PRN (Reason: Constipation) Qty: 1 0RF donepezil 5 mg Tablet 5 mg PO QHS Qty: 1 0RF magnesium hydroxide 400 mg/5 mL Suspension 30 ml PO X1 PRN (Reason: Constipation) Qty: 30 0RF sennosides-docusate sodium [Stimulant Laxative Plus] 8.6-50 mg Tablet 1 tab PO BID Qty: 1 0RF melatonin 3 mg Tablet 3 mg PO QHS PRN (Reason: Insomnia) Qty: 1 0RF Artificial Tears([id number]) 1-0.2-0.2 % Drops 2 drp EACH EYE Q1H PRN (Reason: DRY EYES) Qty: 1 0RF Continued metoprolol succinate 50 mg tablet extended release 24 hr 50 mg PO DAILY cholecalciferol (vitamin D3) 50 mcg (2,000 unit) capsule 50 mcg PO DAILY multivitamin Tablet 1 tab PO DAILY omega-3 fatty acids [Fish Oil Concentrate] 1,000 mg capsule 1,000 mg PO DAILY loperamide 2 mg capsule 2 mg PO Q6H PRN (Reason: loose stool) atorvastatin 40 mg Tablet 40 mg PO QHS 30 Days Qty: 30 0RF Eliquis 5 mg Tablet 5 mg PO BID 30 Days Qty: 60 0RF Discontinued Nighttime Sleep-Aid (doxylamn) 25 mg tablet 25 mg PO QHS PRN (Reason: Sleep) acetaminophen 500 mg tablet 500 mg PO Q6H PRN (Reason: Pain) benzonatate 100 mg capsule 200 mg PO TID PRN PRN (Reason: cough) Referrals / Follow Up: Rufino Ortega MD [Primary Care Provider] - 05/10/24 11:20 am Lionel Bernard MD [Non-Staff -Ordering Privileges] - Disposition Disposition (needs filled in before D/C Order can be placed): [facility] Facility Charges/Coding Visit Charges Inpatient E&M: 25402 Disch Hosp >30min
[2024-05-02 13:19] VITALS: BMI 34.1
[2024-05-02] MEDS: Acetaminophen 500 MG Tablet 1000 MG PO ×2 (15:44→21:24)
[2024-05-02 19:46] VITALS: BP 136/72; PULSE 72; RESP 16; TEMP 36.5; O2SAT 92
[2024-05-02] MEDS: Donepezil HCl 5 MG Tablet PO (21:19)
[2024-05-02] MEDS: Atorvastatin Calcium 40 MG Tablet PO (21:19)
[2024-05-03] MEDS: Acetaminophen 500 MG Tablet 1000 MG PO (05:42)
[2024-05-03 05:49] VITALS: BP 148/98; PULSE 83; RESP 16; TEMP 36.4; O2SAT 92
[2024-05-03 05:50] VITALS: BMI 34.1
[2024-05-03] MEDS: Cholecalciferol (VIT D3) 25 MCG TABLET (1,000 UNITS) 50 MCG PO (08:44)
[2024-05-03 08:45] VITALS: BP 148/98; PULSE 83
[2024-05-03] MEDS: Omega-3 Acid Ethyl Esters 1 GM Capsule PO (08:45)
[2024-05-03] MEDS: Multivitamins,Therapeutic Tablet 1 TABLET PO (08:45)
[2024-05-03] MEDS: cefuroxime axetiL 250 MG TABLET 500 MG PO (08:45)
[2024-05-03] MEDS: APIXABAN 5 MG TABLET PO (08:45)
[2024-05-03] MEDS: Senna/Docusate Sodium 1 Tablet PO (08:45)
[2024-05-03] MEDS: Metoprolol(XL)Succ 50 MG Tablet PO (08:45)
[2024-05-03] MEDS: Menthol/Lanolin/Calamine/Znox 113 GM Tube 1 APPLIC TOPICAL (08:47)
--- NOTE | 2024-05-03 08:58 | CASEMGMT ---
Social Work SW spoke with pt's son Espinoza to discuss discharge transportation. Espinoza stating that family does not feel comfortable transporting patient. SW educated that transportation can be arranged with [facility] and pt will be billed for the transport. Espinoza agreeable. Transportation set up with [facility] for 1030 pickup via Wheelchair van. Nursing, Espinoza and pt notified and all agreeable. TIK[facility] [place]
--- NOTE | 2024-05-03 09:30 | NURSING ---
Report called to Starr at [facility] in [facility].
[2024-05-03 09:43] VITALS: O2SAT 94
[2024-05-03 11:12] VITALS: BP 132/80; PULSE 83; RESP 16; TEMP 36.4; O2SAT 94
[2024-05-03 11:14] VITALS: BMI 34.1
--- NOTE | 2024-05-03 11:16 | NURSING ---
discharged to [facility] via [facility]. Report called to Starr
== END 2024-05-03 11:18 | disposition skilled nursing facility (03) | DRG 56 ==
PROVIDERS: Admitting Provider Family Medicine Geriatric Medicine; PCP Family Medicine; Referring Provider Family Medicine Geriatric Medicine; Visit Provider Internal Medicine
DX: I69.354 Hemiplegia and hemiparesis following cerebral infarction affecting left non-dominant side (principal); J15.9 Unspecified bacterial pneumonia; E22.2 Syndrome of inappropriate secretion of antidiuretic hormone; D69.6 Thrombocytopenia, unspecified; G30.9 Alzheimer's disease, unspecified; I48.0 Paroxysmal atrial fibrillation; E55.9 Vitamin D deficiency, unspecified; I10 Essential (primary) hypertension; F02.80 Dementia in other diseases classified elsewhere, unspecified severity, without behavioral disturbance, psychotic disturbance, mood disturbance, and anxiety; E78.2 Mixed hyperlipidemia; K52.9 Noninfective gastroenteritis and colitis, unspecified; G51.0 Bell's palsy; R73.9 Hyperglycemia, unspecified; Z79.01 Long term (current) use of anticoagulants; G47.00 Insomnia, unspecified; R73.03 Prediabetes; Z79.899 Other long term (current) drug therapy
CPT/HCPCS: 36415; 71046; 80048; 80053; 81001; 83036; 83735; 84100; 85025; 85027; 85049; 87633; 87641; 87811; 92507; 92523; 97110; 97112; 97116; 97129; 97130; 97162; 97166; 97530; 97535; 97802; A4216

== ENCOUNTER 2024-06-08 11:00 | Emergency (ER) | payer MEDICARE, OTHER, SELFPAY ==
[2024-06-08 11:00] VITALS: BP 135/60; PULSE 58; RESP 14; TEMP 36.1; O2SAT 93
[2024-06-08 15:29] VITALS: BMI 35.8
[2024-06-08 15:33] VITALS: BP 112/56; PULSE 52; O2SAT 95
[2024-06-08 15:34] LABS: Absolute Lymphocyte Count 2.36 X10^3/uL (0.83-4.51); Absolute Neutrophil Count 3.3 X10^3/uL (2.0-7.7); Basophil# 0.01 X10^3/uL; Basophil% 0.1 % (0-1); Eosinophils% 1.4 % (0-5); Hematocrit 40.9 % (37-47); Hemoglobin 12.8 g/dL (12.0-15.0); Lymphocyte # 2.36 X10^3/ul (0.83-4.51); Lymphocyte % 32.6 % (19-41); Mean Corp Hgb Conc 31.3 g/dL (32-36); Mean Corpuscular Hgb 30.1 pg (27.0-32.0); Mean Corpuscular Volume 96.2 fL (81-99); Mean Platelet Vol. 10.7 fl (6.2-12.0); Monocyte# 1.47 X10^3/uL; Monocyte% 20.3 % (0-10); NRBC Flagged by Analyzer 0 % (0-5); Neutrophil # 3.26 X10^3/uL (2.7-7.7); Neutrophil % 45.2 % (47-70); Platelet Count 104 K/mm3 (150-450); RBC Distribution Width CV 13.1 % (11.6-14.6); RBC Distribution Width SD 46.7 fl (35.1-43.9); Red Blood Count 4.25 M/mm3 (4.2-5.4); White Blood Count 7.2 K/mm3 (4.4-11.0)
[2024-06-08 15:38] LABS: Anion Gap 4 (5-15); BUN 18 mg/dL (7-18); BUN/Creat Ratio 24.4 RATIO (10-20); Calcium,Total 9.1 mg/dL (8.5-10.1); Chloride 98 mmol/L (98-107); Creatinine, Serum 0.74 mg/dL (0.55-1.02); EST Glomerular Filtration Rate 79 mL/min (>60); Est Glom Filt Rate - Afr Amer 95 mL/min (>60); Estimated Creatinine Clearance 43.97 ml/min; Glucose 101 mg/dL (74-106); Potassium 4.1 mmol/L (3.5-5.1); Sodium Level 135 mmol/L (136-145)
--- NOTE | 2024-06-08 15:52 | ED.VIS.GI ---
HPI HPI - GI History of Present Illness Chief Complaint: GI Bleed Detail of Chief Complaint: Dark stool no gross blood. No GI bleed history. Informant: patient Nausea/Vomiting/Emesis GI Symptom: Positive for Nausea, Vomiting and - (X 1 2 days ago. Currently not nauseated. No abdominal pain.) Severity: Mild Diarrhea/Melena/Hematochezia GI Symptom: Positive for Diarrhea and - (Noticed dark stool today. Denies being on Imodium or Pepto-Bismol.) Onset: Days Severity: Mild Associated Symptoms Associated Symptoms: Negative for Dysuria, Frequency, Hematuria or Urgency Narrative Narrative: 89-year-old female history of A-fib on Eliquis. Prior stroke. Currently resides at [facility]. Today saw dark stools. No prior history of GI bleed. Denies any hematemesis. No abdominal pain. Recently has had diarrhea. 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 artery Chronic cough Chronic diarrhea Vitamin D deficiency Anticoagulant long-term use Salas's palsy COVID-19 (03/2021) Obesity Right bundle branch block (RBBB) Hyperlipidemia Prediabetes Paroxysmal atrial fibrillation Essential hypertension Osteopenia History of hepatitis Osteoarthritis Home Medications ?Medication ?Instructions ?Recorded ?Last Taken ?Type cholecalciferol (vitamin D3) 50 50 mcg PO DAILY supplement 10/10/20 Unknown History mcg (2,000 unit) capsule metoprolol succinate 50 mg 50 mg PO DAILY HTN 10/10/20 04/20/24 History tablet,extended release 24 hr multivitamin 1 tab PO DAILY supplement 10/10/20 Unknown History loperamide 2 mg capsule 2 mg PO Q6H PRN loose stool 07/03/22 Unknown History apixaban 5 mg tablet (Eliquis) 5 mg PO BID AFIB 30 days #60 tabs 04/20/24 04/20/24 Rx atorvastatin 40 mg tablet 40 mg PO QHS cholesterol 30 days 04/20/24 04/19/24 Rx #30 tabs acetaminophen 500 mg tablet 1,000 mg (2 x 500 mg) PO Q6H PRN 05/02/24 Unknown Rx Pain Score 1-10 #1 TAB donepezil 5 mg tablet 5 mg PO QHS #1 TAB 05/02/24 Unknown Rx melatonin 3 mg tablet 3 mg PO QHS PRN Insomnia #1 TAB 05/02/24 Unknown Rx sennosides 8.6 mg-docusate sodium 1 tab PO BID #1 TAB 05/02/24 Unknown Rx 50 mg tablet (Stimulant Laxative Plus) albuterol sulfate 2.5 mg/3 mL 2.5 mg inhalation Q4H PRN 06/08/24 Unknown History (0.083 %) solution for nebulization artificial 2 drp ophthalmic (eye) 4-12XD PRN 06/08/24 Unknown History tears(tmiwtoi-nxegmrbx-jxauwgf) 0.1 %-0.3 %-0.2 % eye drops benzonatate 100 mg capsule 100 mg PO TID 06/08/24 Unknown History dextromethorphan-guaifenesin 5 10 ml PO Q4H PRN 06/08/24 Unknown History mg-100 mg/5 mL oral liquid (Robitussin Cough-Chest Congestion DM) guaifenesin 600 mg tablet, 1,200 mg PO BID 06/08/24 Unknown History extended release 12 hr (Mucinex) menthol 4 % topical gel (Biofreeze 1 applic topical BID 06/08/24 Unknown History (menthol)) ondansetron HCl 4 mg tablet 4 mg PO Q4H PRN 06/08/24 Unknown History Allergy/AdvReac Type Severity Reaction Status Date / Time propoxyphene (From Allergy Unknown unknown Verified 06/08/24 11:00 Darvocet-N) Sulfa (Sulfonamide Allergy Unknown unknown Verified 06/08/24 11:00 Antibiotics) Family History Mother Heart disease Father Heart disease Sister Heart disease Breast cancer Aunt Breast cancer Diabetes Grandmother Cancer stomach Surgical History History of bilateral cataract extraction History of eyelid surgery 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 housing: apartment Smoking Status: Never smoker alcohol intake: never substance use type: does not use caffeine: Yes Type: coffee Number of servings: 1 ROS ROS ED ROS Narrative Diarrhea. Constitutional Constitutional ED: Denies chills or fever(s) ENT ENT ED: Denies ear pain Cardiovascular Cardiovascular: Denies chest pain Respiratory/Chest Respiratory/Chest: Reports cough; Denies dyspnea Gastrointestinal Gastrointestinal: Reports diarrhea; Denies abdominal pain, constipation, nausea or vomiting Genitourinary Genitourinary ED: Denies dysuria or hematuria Musculoskeletal Musculoskeletal: Denies arthralgias or back pain Integumentary Denies abscess Neurologic Neurologic: Denies headache(s) Psychiatric Psychiatric: Denies anxiety Endocrine Endocrinology: Denies polydipsia Hematologic/Lymphatic Hematologic/Lymphatic: Denies lymphadenopathy Allergic/Immunologic Allergic/Immunologic ED: Denies mouth swelling, tongue swelling or urticaria EXAM Physical Exam Narrative Exam Narrative: Well-appearing 89-year-old female. Vital signs stable afebrile. She does not look septic toxic. She is no distress. Pulse ox 93% room air no hypoxia. Sitting upright in bed. Son at bedside. H EENT exam pupils round react light. Extra motions are intact. Moist mucous membranes. Neck nontender no lymphadenopathy. Lungs rhonchi on the right. Seems to clear with coughing. Heart rate in the 50s. No murmur. Chest wall ribs nontender. Abdomen soft nontender. No peritoneal signs. Moving all 4 extremities. Nontender no edema. Back nontender. Neurologically she is awake and alert answering questions following commands. Rectal exam there is very little stool was primarily mucus there is no blood or melena. No mass. Nontender. Const Vital Signs: 06/08/24 11:00 06/08/24 15:33 Temperature 96.9 F L Temperature Source Temporal Pulse Rate 58 L 52 L Respiratory Rate 14 Blood Pressure 135/60 H 112/56 L Blood Pressure Mean 85 74 Pulse Ox 93 95 Oxygen Delivery Method Room Air Room Air Positive well nourished and well developed; Negative for cachectic, contractures or unkempt General Appearance ED: well developed and NAD; Negative for unkempt, cachectic, contractures or pallor Nutritional Appearance: Negative for cachectic HEENT Reports moist mucous membranes normocephalic and atraumatic; Negative for trauma or tenderness Eyes PERRL and EOMs intact bilaterally General Eye ED: Negative for pale conjunctiva or scleral icterus Neck no lymphadenopathy, supple and no JVD General: Negative for tenderness Carotids: Negative for other Resp normal respiratory effort and clear to auscultation bilaterally Effort and Inspection: Negative for respiratory distress Auscultation: Negative for rales, rhonchi, wheezes or diminished lung sounds Cardio regular rhythm, S1 normal heart sound, S2 normal heart sound and no murmurs; Negative for regular rate Cardio Narrative: Bradycardia in the 50s. Rate: bradycardia GI non-tender, non-distended and no masses GI Narrative: Rectal exam limited stool. Primarily mucus. No gross blood. No melena. Nontender. No mass. Inspection: Negative for abdominal distention Palpation: soft; Negative for tender, guarding, pulsatile mass or rebound tenderness present Back/Spine no CVA tenderness General Back: Negative for CVA tenderness Cervical Spine: Negative for cervical spine tenderness Thoracic Spine / Upper Back: Negative for thoracic spinal tenderness Extremity full ROM General Extremety ED: Negative for edema or tenderness General Extremity: Negative for edema Neuro CN's II-XII intact bilaterally and moves all extremities Sensorium / Orientation: alert, oriented to person, oriented to place and oriented to time; Negative for orientation impaired, confused, lethargic or stuporous Motor Exam: strength 5/5 throughout Psych mental status grossly normal and thought process normal Appearance: Negative for unkempt Attitude: No agitated Mood & Affect: Negative for depressed, anxious or tearful Skin no wounds General Skin Exam: Negative for jaundice or pallor Lesions: no lesions Rashes: no rashes Trauma: Negative for abrasion MDM MDM MDM Narrative Medical decision making narrative: 89-year-old female saw Dr. Mock. No prior history of GI bleed. She is on Eliquis for A-fib. Rectal exam showed no gross blood or melena. Screening labs being obtained. She also had a cough with rhonchi that cleared I am obtaining a chest x-ray. She is not complaining of flulike symptoms. She is not short of breath. Repeat exam at 4:45 PM patient doing well. She will be discharged home. Currently no signs of any active bleeding. Both on physical exam, rectal exam and labs. She will be instructed to follow-up to have her blood counts rechecked. Return if she notices any significant bleeding. History & Record Review Discussion w/independent historian: Patient Additional record(s) reviewed:: Prior inpatient record, Prior outpatient record, Prior ED visit and Prior labs Lab Data Attestation: I reviewed the patient's lab results. Lab results narrative: CBC showed a white count of 7. H&H 12.8 and 40. Platelets 104. Electrolytes show sodium 135. Gap 4. Normal BUN of 18 and creatinine 0.74. Glucose 101. Blood type O+. Chest x-ray negative. Chronic changes Labs: Laboratory Results - last 24 hr 06/08/24 15:10 WBC 7.2 RBC 4.25 Hgb 12.8 Hct 40.9 MCV 96.2 MCH 30.1 MCHC 31.3 L RDW Std Deviation 46.7 H RDW Coeff of Tanner 13.1 Plt Count 104 L MPV 10.7 Immature Gran % (Auto) 0.400 Neut % (Auto) 45.2 L Lymph % (Auto) 32.6 [place] % (Auto) 20.3 H Eos % (Auto) 1.4 Baso % (Auto) 0.1 Absolute Neuts (auto) 3.3 Absolute Lymphs (auto) 2.36 Nucleated RBC % 0 PT 17.1 H INR 1.4 Sodium 135 L Potassium 4.1 Chloride 98 Carbon Dioxide 33.0 H Anion Gap 4 L BUN 18 Creatinine 0.74 Estim Creat Clear Calc 43.97 Est GFR (MDRD) Af Amer 95 Est GFR (MDRD) Non-Af 79 BUN/Creatinine Ratio 24.4 H Glucose 101 Calcium 9.1 Blood Type O POSITIVE Antibody Screen NEGATIVE Radiography Chest X-Ray - ED: 2 View, Read by ED Physician, Read by Radiologist, Heart, Lungs, Mediastinum, Bony Structures, No Acute Disease and Chronic Changes Diagnostic Testing: Clinical Impression(s) from Imaging Studies Chest X-Ray 06/08/24 16:00 IMPRESSION: Generalized osteopenia is noted. [id number] degenerative changes of the spine are noted. Prominent aortic calcification is seen. No evidence of cardiomegaly. Lungs appear clear of acute disease, unchanged. No pleural effusion or pneumothorax is seen. Reading Location: [id number] Chest x-ray, 2 views, AP and lateral, interpreted by myself and radiologist shows no acute abnormality. No pneumonia. Chronic changes. Discharge Plan Triage Chief Complaint: GI Bleed ED Provider: Michael Sagastume Dx/Rx/DC Orders Clinical Impression: Dark stools, Chronic anticoagulation, History of atrial fibrillation Prescriptions: No Action metoprolol succinate 50 mg tablet extended release 24 hr 50 mg PO DAILY cholecalciferol (vitamin D3) 50 mcg (2,000 unit) capsule 50 mcg PO DAILY multivitamin Tablet 1 tab PO DAILY loperamide 2 mg capsule 2 mg PO Q6H PRN (Reason: loose stool) artificial tear(htoom-pyx-lfr) 0.1-0.3-0.2 % drops 2 drp ophthalmic (eye) 4-12XD PRN Biofreeze (menthol) 4 % gel 1 applic topical BID dextromethorphan-guaifenesin [Robitussin Cough-Chest Pedro DM] 5-100 mg/5 mL liquid 10 ml PO Q4H PRN guaifenesin [Mucinex] 600 mg tablet extended release 12hr 1,200 mg PO BID albuterol sulfate 2.5 mg /3 mL (0.083 %) solution for nebulization 2.5 mg inhalation Q4H PRN benzonatate 100 mg capsule 100 mg PO TID ondansetron HCl 4 mg tablet 4 mg PO Q4H PRN atorvastatin 40 mg Tablet 40 mg PO QHS 30 Days Qty: 30 0RF Eliquis 5 mg Tablet 5 mg PO BID 30 Days Qty: 60 0RF acetaminophen 500 mg Tablet 1,000 mg PO Q6H PRN (Reason: Pain Score 1-10) Qty: 1 0RF donepezil 5 mg Tablet 5 mg PO QHS Qty: 1 0RF sennosides-docusate sodium [Stimulant Laxative Plus] 8.6-50 mg Tablet 1 tab PO BID Qty: 1 0RF melatonin 3 mg Tablet 3 mg PO QHS PRN (Reason: Insomnia) Qty: 1 0RF Primary Care Provider: Rufino Ortega Referrals: Rufino Ortega MD [Primary Care Provider] - 3-5 Days Activity Restrictions/Additional Instructions: Today your labs and chest x-ray look good. Today there are no obvious signs of bleeding. Sometimes there is subtle bleeding we cannot detect. Follow-up with your primary care physician in 3 to 5 days to have your blood counts rechecked to make sure they are not dropping. Return if you are feeling worse. Print Language: Scottish Disposition Disposition: Home, Self Care
[2024-06-08 15:53] LABS: International Normalized Ratio 1.4; Prothrombin Time (Protime)PT. 17.1 SECONDS (11.7-14.9)
--- NOTE | 2024-06-08 16:00 | RAD_ITS ---
PROCEDURE: CHEST PA AND LATERAL REASON FOR EXAM: Cough. TECHNIQUE: Single frontal image including the chest and abdomen. COMPARISON: Chest x-ray of 04/27/2024.. RAD/Chest PA and Lateral IMPRESSION: Generalized osteopenia is noted. [id number] degenerative changes of the spine are noted. Prominent aortic calcification is seen. No evidence of cardiomegaly. Lungs appear clear of acute disease, unchanged. No pleural effusion or pneumothorax is seen. Reading Location: [address]
[2024-06-08 16:49] VITALS: BP 115/70; PULSE 54; RESP 16; TEMP 36.1; O2SAT 92
== END 2024-06-08 17:00 | disposition home or self-care (01) ==
PROVIDERS: Emergency Provider Emergency Medicine; PCP Family Medicine; Visit Provider Emergency Medicine
DX: K92.2 Gastrointestinal hemorrhage, unspecified (principal); I48.0 Paroxysmal atrial fibrillation; Z79.01 Long term (current) use of anticoagulants; Z86.16 Personal history of COVID-19
CPT/HCPCS: 71046; 80048; 85025; 85610; 86850; 86900; 86901; 99283; A4216

== ENCOUNTER 2024-10-23 17:48 | Emergency (ER) | payer MEDICARE, OTHER, SELFPAY ==
[2024-10-23] VITALS (7 sets, daily range): BP systolic 128–143; BP diastolic 45–98; PULSE 62–133; RESP 18–28; TEMP 36.9–37.6; O2SAT 89–93; BMI 33.5
[2024-10-23] MEDS: 0.9% Normal Saline (1000mL) 1,000 ML 999 ML IV (19:10)
[2024-10-23 19:11] LABS: Hematocrit 37.9 % (37-47); Hemoglobin 12.4 g/dL (12.0-15.0); Immature Granulocytes Count 0.040 X10^3/uL (0.0-0.0); Mean Corp Hgb Conc 32.7 g/dL (32-36); Mean Corpuscular Volume 95.0 fL (81-99); Mean Platelet Vol. 11.5 fl (6.2-12.0); NRBC Flagged by Analyzer 0 % (0-5); POSITIVE COUNT YES; POSITIVE DIFFERENTIAL YES; Platelet Count 95 K/mm3 (150-450); RBC Distribution Width CV 12.3 % (11.6-14.6); RBC Distribution Width SD 43.0 fl (35.1-43.9); Red Blood Count 3.99 M/mm3 (4.2-5.4); White Blood Count 10.5 K/mm3 (4.4-11.0)
[2024-10-23 19:16] LABS: Differential Indicated SCAN CRITERIA MET
[2024-10-23 19:29] LABS: Prothrombin Time (Protime)PT. 16.9 SECONDS (11.7-14.9)
[2024-10-23 19:29] LABS: Mucous, Urine 0 SEEN /hpf (<or=2+)
[2024-10-23 19:30] LABS: Partial Thromboplast Time 42.8 Seconds (24.1-36.2)
[2024-10-23 19:32] LABS: Color, Urine Yellow (Yellow); Glucose, Dipstick Normal (Normal); Ketone-Dipstick 50 mg/dl (Negative); Leukocyte Esterase-Dipstick Negative /ul (Negative); Nitrite-Dipstick Negative (Negative); Occult Blood-Urine 25 /ul (Negative); Protein-Dipstick 100 mg/dl (Negative); Specific Gravity, Urine 1.020 (1.002-1.030); Urine Bilirubin Dipstick Negative (Negative)
[2024-10-23 19:38] LABS: AST(SGOT) 23 U/L (<=31); Alanine Aminotransfer ALT/SGPT 6 U/L (<=34); Albumin, Serum 3.0 g/dL (3.4-4.8); Alkaline Phosphatase 86 U/L (35-104); Anion Gap 11 (5-15); BUN 10 mg/dL (4-19); BUN/Creat Ratio 15.8 RATIO (10-20); Calcium,Total 9.2 mg/dL (7.6-11.0); Carbon Dioxide 26.4 mmol/L (21.0-32.0); Chloride 99 mmol/L (98-108); Estimated Creatinine Clearance 42.46 ml/min (50-250); Globulin 4.0 g/dL (2.2-4.2); Glucose 46 mg/dL (70-99); Potassium 4.0 mmol/L (3.3-5.1); Troponin T High Sensitivity 11 ng/L (<=14)
[2024-10-23 19:45] LABS: Differential Comment SCANNED
[2024-10-23 19:52] LABS: Red Blood Cells-Urine 0-5 SEEN /hpf (0-5); Squamous Epithelial Cells - UA 0-5 SEEN /hpf (5-10)
[2024-10-23 21:28] LABS: Troponin T High Sens 2 HR 13 ng/L (<=14)
== END 2024-10-23 22:00 | disposition home or self-care (01) ==
PROVIDERS: Emergency Provider Emergency Medicine; PCP Family Medicine; Visit Provider Emergency Medicine
DX: R53.1 Weakness (principal); I48.91 Unspecified atrial fibrillation; I10 Essential (primary) hypertension; Z79.899 Other long term (current) drug therapy; Z79.01 Long term (current) use of anticoagulants; Z86.16 Personal history of COVID-19
CPT/HCPCS: 51702; 71045; 80053; 81001; 82962; 83605; 84484; 85025; 85610; 85730; 87040; 87086; 87631; 93005; 96361; 96374; 99285; A4216

== ENCOUNTER → 2025-01-12 | Outpatient (CLI) | payer MEDICARE, OTHER, SELFPAY ==
[2025-01-13 19:08] LABS: Giardia Lamblia, Stool EIA Negative (Negative)
== END | disposition home or self-care (01) ==
LOC: LABSPEC 10:18
PROVIDERS: PCP Family Medicine; Referring Provider Nurse Practitioner Acute Care; Visit Provider Nurse Practitioner Acute Care
DX: R19.7 Diarrhea, unspecified (principal); R15.9 Full incontinence of feces; R19.4 Change in bowel habit
CPT/HCPCS: 87329

== ENCOUNTER 2025-01-19 18:37 | Observation (INO) | payer MEDICARE, OTHER, SELFPAY ==
[2025-01-19 18:38] VITALS: BP 106/83; PULSE 68; RESP 16; TEMP 36.7; O2SAT 94
[2025-01-19 18:57] VITALS: BMI 30.2
--- OUTSIDE RECORDS SUMMARY | 2025-01-19 19:14 | XMS RPT_ITS | CCD ---
Author Organization [facility] Cl[facility] Care Team Providers Care Case Consultant Name Role Phone RAMO BARAHONA Unavailable Unavailable IMCA Unavailable Unavailable EVETTE, BRANDEE Unavailable Unavailable LATASHA BARAHONANETH Unavailable Unavailable RAMO BARAHONA Unavailable Unavailable EVETTE, BRANDEE Unavailable Unavailable JUN, RAMO E Unavailable Unavailable EVETTE, BRANDEE H. Unavailable Unavailable EVETTE, BRANDEE H. Unavailable Unavailable BALROCIO MENDEZ E. Unavailable Unavailable EVETTE, BRANDEE H. Unavailable Unavailable EVETTE, BRANDEE H. Unavailable Unavailable DOROTA, TYLER W Unavailable Unavailable DOROTA, TYLER W Unavailable Unavailable DOROTA, TYLER W Unavailable Unavailable EVETTE, BRANDEE H. Unavailable Unavailable DOROTA, TYLER W Unavailable Unavailable EVETTE, BRANDEE H. Unavailable Unavailable Rufino Erickson MD Primary Care Provider Rufino Erickson MD Primary Care Provider Rufino Erickson MD A Primary Care Provider Rufino Erickson MD A Primary Care Provider Rufino Erickson MD A Primary Care Provider Rufino Erickson MD A Primary Care Provider Knoble STOCK FEEDER.Lulu CARMONA Unavailable Sarah Yang PA-C Unavailable Yevgeniy RN, Mindi Unavailable Kenneth STOCK FEEDER.Lulu CARMONA Unavailable Knoble STOCK FEEDER.Lulu CARMONA Unavailable Evgeny PT, Aida Unavailable Kenneth STOCK FEEDER.Lulu CARMONA Unavailable Knoble STOCK FEEDER.Lulu CARMONA Unavailable Sarah Yang PA-C Unavailable Shannon MARTE, Dr. Joy Primary Care Provider [phone] Shannon MARTE, Dr. Joy Referring Provider Melisa Burgos Attending Provider Dr. Michael Sagastume MD Emergency Provider Mónica Kerr Attending Provider Mitesh MARTE, Dr. Rodriguez Attending Provider Mónica Kerr Referring Provider Jeff MARTE, Dr. Guallpa Attending Provider [phone] LULU STATON Referring Unavailable SHANNON, RUFINO A Primary Care Unavailable SARAH YANG Attending Unavailable SHANNON, RUFINO A Primary Care Unavailable SHANNON, RUFINO A Primary Care Unavailable SHANNON, RUFINO A Referring Unavailable STEVE MANE Attending Unavailable LULU STATON Attending Unavailable SHANNON, RUFINO A Primary Care Unavailable SHANNON, RUFINO A Primary Care Unavailable SHANNON, RUFINO A Attending Unavailable SHANNON, RUFINO A Primary Care Unavailable LULU STATON Attending Unavailable SHANNON, RUFINO A Primary Care Unavailable SHANNON, RUFINO A Primary Care Unavailable SHANNON, RUFINO A Referring Unavailable SHANNON, RUFINO A Primary Care Unavailable SHANNON, RUFINO A Referring Unavailable SHANNON, RUFINO A Primary Care Unavailable SHANNON, RUFINO A Attending Unavailable LULU STATON Referring Unavailable SHANNON, RUFINO A Primary Care Unavailable LULU STATON Referring Unavailable SHANNON, RUFINO A Primary Care Unavailable SHANNON, RUFINO A Primary Care Unavailable SHANNON, RUFINO A Referring Unavailable SELF Referring Unavailable SHANNON, RUFINO A Primary Care Unavailable SHANNON, RUFINO A Attending Unavailable HARRISON OSBORNE Referring Unavailable SHANNON, RUFINO A Primary Care Unavailable SHANNON, RUFINO A Primary Care Unavailable CRUZ JAMES Attending Unavailable SHANNON, RUFINO A Primary Care Unavailable LULU STATON Attending Unavailable SHANNON, RUFINO A Primary Care Unavailable CRUZ JAMES Referring Unavailable SHANNON, RUFINO A Primary Care Unavailable SHANNON, RUFINO A Primary Care Unavailable SHANNON, RUFINO A Referring Unavailable STEVE MANE Attending Unavailable SHANNON, RUFINO A Primary Care Unavailable SHANNON, RUFINO A Referring Unavailable STEVE MANE Attending Unavailable SHANNON, RUFINO A Primary Care Unavailable SHANNON, RUFINO A Attending Unavailable LULU STATON Referring Unavailable SHANNON, RUFINO A Primary Care Unavailable Shannon, Rufino Primary Care Unavailable Luis Eduardo, Madhav Chi Admitting Unavailable Angie Enriquez Attending Unavaila ble Luis Eduardo, Madhav Chi Referring Unavailable Luis Eduardo, Madhav Chi Consulting Unavailable [facility], Rufino Primary Care Unavailable Sisi Schulte Attending Unavailabl e Shannon, Rufino Primary Care Unavailable Olecamiloe Meliza SMITHbe Attending Unavailabl e Shannon, Rufino Primary Care Unavailable Olee Meliza SMITHbe Attending Unavailabl e Shannon, Rufino Primary Care Unavailable Luis Eduardo, Madhav Chi Admitting Unavailable Luis Eduardo, Madhav Chi Referring Unavailable Luis Eduardo, Madhav Chi Consulting Unavailable Angie Enriquez Attending Unavaila ble Shannon, Rufino Primary Care Unavailable Sisi Howell Attending Unavailable [facility] Primary Care Unavailable Carter QUEZADA, Kym Attending Unavailable Zain Hernandez Consulting Unavailable Shaheed Burkett Attending Unavailable Jose Diamond Admitting Unavailable [facility], Rufino Primary Care Unavailable Adeli, Amir Consulting Unavailable Hindumega, Robyn Consulting Unavailable Mustapha Daisy Consulting Unavailable Kaden, Daniella Consulting Unavailable TajVolodymyr sy Consulting Unavailable ChanelOlga montes de oca Consulting Unavailable Diego Hodges Consulting Unavailable Jason Freeman Consulting Unavailable Jai Mohamud Consulting Unavailable Sera Ruth Consulting Unavailable Parish Rosario Consulting Unavailable Mireille Oden Consulting Unavailable Silas Mead Consulting Unavailable Kalpesh, Mhd Dayo Consulting UnavailTong Vargas Consulting Unavailable Benedict, Rami Consulting Unavailable Jignesh Cota Consulting Unavailable Linsey Bruno Consulting Unavailable Tyler Martinez Consulting Unavailable Jose Diamond Consulting Unavailable Shaheed Burkett Consulting Unavailable Daniela Downey Referring Unavailable Daniela Downey Attending Unavailable Shannon, Rufino Primary Care Unavailable Shannon, Rufino Primary Care Unavailable Michael Sagastume Attending Unavailable Angie Enriquez Consulting Unavaila ble Shannon, Rufino Primary Care Unavailable Kym Machado NP Attending Unavailable Shannon, Rufino Primary Care Unavailable Kym Machado NP Attending Unavailable Shannon, Rufino Primary Care Unavailable Kym Machado NP Attending Unavailable Shannon, Rufino Primary Care Unavailable Shannon, Rufino Referring Unavailable Ramu Aguilar Attending Unavailable Shannon, Rufino Primary Care Unavailable Wilmere OLS Efewongbe Attending Unavailabl e Oleghe OLS, Efewongbe Referring Unavailabl e Shannon, Rufino Primary Care Unavailable Oleghe OLS, Efewongbe Attending Unavailabl e Shannon, Rufino Primary Care Unavailable Mónica Kerr Referring Unavail able Mónica Kerr Attending Unavail able Shannon, Rufino Primary Care Unavailable Wilmere OLS, Efewongbe Attending Unavailabl e Shannon, Rufino Primary Care Unavailable Wilmere SARAH, Efewongbe Attending UnavailJose Cortes Consulting Unavailable Jose Diamond Admitting Unavailable Jose Diamond Attending Unavailable Shannon, Rufino Primary Care Unavailable Shannon, Rufino Primary Care Unavailable Kym Machado NP Attending Unavailable Shannon, Rufino Primary Care Unavailable Binhghe, Efewongbe Attending Unavailable Shannon, Rufino Referring Unavailable Daniela Downey Attending Unavailable Shannon, Rufino Primary Care Unavailable Shannon, Rufino Referring Unavailable Mónica Kerr Attending Unavail able Shannon, Rufino Primary Care Unavailable Shannon, Rufino Referring Unavailable Shannon, Rufino Primary Care Unavailable Mónica Kerr Attending Unavail able Shannon, Rufino Referring Unavailable Shannon, Rufino Primary Care Unavailable Ramu Aguilar Attending Unavailable Shannon, Rufino Referring Unavailable Shannon, Rufino Primary Care Unavailable Mónica Kerr Attending Unavail able Shannon, Rufino Primary Care Unavailable Shannon, Rufino Referring Unavailable Melisa Vázquez NP Attending Unavailable Shaheed Burkett Referring Unavailable Jose Silveira Attending Unavailable Shannon, Rufino Primary Care Unavailable Shanika Bruno Attending Unavailable Shaheed Burkett Admitting Unavailable Malu Burketts Claire Consulting Unavailable Shannon, Rufino Primary Care Unavailable Shanika Bruno Consulting Unavailable Mónica Kerr Referring Unavail able Shannon, Rufino Primary Care Unavailable El Choi Attending Unavailable Shannon, Rufino Primary Care Unavailable Rufino Erickson Referring Unavailable Le Cha Attending Unavailable El Choi Attending Unavailable Rufino Erickson Primary Care Unavailable Shaheed Burkett Attending Unavailable Rufino Erickson Primary Care Unavailable Michael Sagastume Attending Unavailable Ben Burkettolas F Attending Unavailable Joshelli, Jose Consulting Unavailable Dara, Jose Admitting Unavailable Rufino Erickson Primary Care Unavailable Shanika Bruno Attending Unavailable Madelaine, Shaheed F Admitting Unavailable Madelaine Shaheed F Consulting Unavailable Rufino Erickson Primary Care Unavailable Shannon MARTE, Dr. Joy Primary Care Physician Mitesh MARTE, Dr. Rodriguez Attending Physician Dr. Michael Sagastume MD Emergency Department Physici an Shannon MARTE, Dr. Joy Referring Provider Mónica Kerr Attending Physician Dr. El Choi MD Attending Physician Mónica Kerr Referring Provider Dr. Ramu Aguilar MD Attending Physician Daniela Mendes Attending Physician Daniela Mendes Referring Provider Dr. Soumya Javier MD Attending Physician Allergies Allergy Classification Reported Allergen(s) Allergy Type Date of Onset Reaction(s) Facility (20 sources) Sulfonamides (Antibiotic); Translations: [SULFA (SULFONAMIDE ANTIBIOTICS)] Propensity to adverse reactions (disorder) 3 Other: See Comments [facility] Repository (20 sources) PROPOXYPHENE N-ACETAMINOPHEN; Translations: [PROPOXYPHENE N-ACETAMINOPHEN] Propensity to adverse reactions (disorder) 3 Unknown [facility] Repository (20 sources) Propoxyphene; Translations: [PROPOXYPHENE] Drug Allergy 3 Unknown [facility] (1 source) Propoxyphene Drug Allergy 5 [facility] Repository Medications Current Medications Medication Drug Class(es) Dates Sig (Normalized) Sig (Original) acetaminophen 500 mg oral tablet (20 sources) Start: 05-02-2024 take 2 tablets by mouth every six hours as needed for pain Acetaminophen 500 mg Tablet Active 1000 mg PO EVERY 6 HOURS as needed for Pain Score 1-10 1 0 May 02, 2024 1:00am Complies with drug therapy Start: 10-10-2020 End: 05-02-2024 take 1 tablet by mouth every six hours as needed for pain Acetaminophen 500 mg tablet Discontinued 500 mg PO EVERY 6 HOURS as needed for Pain October 10, 2020 12:00am May 02, 2024 11:57am Comment on above: Take 500 mg by mouth every 6 hours as needed. [id number] 200 actuat albuterol 0.09 mg/actuat metered dose inhaler (20 sources) beta2-Adrenergic Agonist Start: 01-01-2025 End: 01-16-2025 Albuterol Sulfate (Ventolin Hfa) 90 mcg/actuation HFA aerosol inhaler Discontinued 2 NMA INHALATION EVERY 4-6 HOURS as needed January 01, 2025 12:00am January 16, 2025 11:13am Start: 06-08-2024 End: 10-26-2024 take 2.5 mg by inhalation every four hours as needed for wheezing Albuterol Sulfate 2.5 mg /3 mL (0.083 %) solution for nebulization Discontinued 2.5 mg INHALATION Q4H as needed for shortness of breath or wheezing June 08, 2024 1:00am October 26, 2024 9:39am Start: 04-07-2024 End: 04-07-2024 albuterol 2.5 mg /3 mL (0.08 3 %) 2.5 mg (PROVENTIL) Start: 04-07-2024 End: 04-07-2024 take 1 dose by inhalation once 2.5 mg, INHALATION, ONC E, 1 dose, On Wed04/07/24 at 1630 Start: 03-05-2023 End: 12-11-2024 take 2 puff(s) by inhalation every four hours as needed for wheezing albuterol HFA (PROVENTIL HFA, VENTOLIN HFA) 90 mcg/actuation inhaler Indications: Bronchospasm Inhale 2 Puffs as instructed every 4 hours as needed for wheezing/shortness of breath. 1 Each 03/05/2023 12/11/2024 Discontinued (Course of therapy completed) Comment on above: Inhale 2 Puffs as in structed every 4 hours as needed for wheezing/shortness of breath. amiodarone hydrochloride 200 mg oral tablet (11 sources) Antiarrhythmic Start: 11-30-19 take 1 tablet by mouth once daily Amiodarone 200 mg tablet Active 200 mg PO daily 18 03November 29, 2024 12:00am Complies with drug therapy amoxicillin 875 mg / clavulanate 125 mg oral tablet (3 sources) Penicillin-class Antibacterial Start: 02-13-20 End: 02-18-20 take 1 tablet by mouth twice daily amoxicillin-clavu lanate potassium (AUGMENTIN) 875-125 mg per tablet Indications: Bacterial pneumonia Take 1 tablet by mouth two times a day for 5 days. 10 tablet 0 02/12/2023 02/17/2023 Active Start: 09-21-2021 End: 09-26-2021 take 1 tablet by mouth twice daily amoxicillin-clavulanic acid (AUGMENTIN) 875-125 mg per tablet Take 1 tablet by mouth twice daily for 5 days. 10 tablet 09/21/2021 09/26/2021 Comment on above: Take 1 tablet by [place] th twice daily for 5 days. Take 1 tablet by [place]lotte th two times a day for 5 days. apixaban 5 mg oral tablet (20 sources) Factor Xa Inhibitor Start: End: take 1 tablet by mouth twice daily Apixaban (Eliquis) 5 mg Tablet Active 5 mg PO TWICE A DAY 60 30 0 April 20, 2024 1:00am AFIB Complies with drug therapy Artificial Tear(Bauht-Hch-Acp) 0.1-0.3-0.2 % drops (5 sources) Start: Artificial Tear(Pmkhd-Ryt-Icu) 0.1-0.3-0.2 % drops Active 2 NMA OPHTHALMIC 4 to 12 times per day as needed for dry eyes June 08, 2024 1:00am atorvastatin 40 mg oral tablet (20 sources) HMG-CoA Reductase Inhibitor Start: 5 End: take 1 tablet by mouth at bedtime Atorvastatin 40 mg Tablet Active 40 mg PO AT BEDTIME 30 30 0 April 20, 2024 1:00am cholesterol Complies with drug therapy benzonatate 100 mg oral capsule (20 sources) Non-narcotic Antitussive Start: End: take 1 capsule by mouth twice daily as needed Benzonatate 100 mg capsule Discontinued 100 mg PO TWICE A DAY as needed January 01, 2025 12:00am January 16, 2025 11:15am Start: 06-08-2024 End: 10-23-2024 take 1 capsule by mouth three times daily Benzonatate 100 mg capsule Discontinued 100 mg PO THREE TIMES A DAY June 08, 2024 1:00am October 23, 2024 6:35pm Start: 01-11-2023 End: 12-29-2024 take 2 capsules by mouth three times daily as needed for cough Benzonatate 100 mg capsule Discontinued 200 mg PO 3 TIMES DAILY NEEDED as needed for cough April 18, 2024 1:00am May 02, 2024 11:58am Start: 03-27-2022 End: 05-27-2023 take 1 capsule by mouth three times daily as needed for cough benzonatate (TESSALON PERLES) 100 mg capsule Indications: Bronchitis Take 1 capsule by mouth three times daily as needed for cough. 30 capsule 03/27/2022 05/27/2023 Discontinued (Course of therapy completed) Comment on above: Take 1 capsule by mo uth three times daily as needed for cough. Take 2 capsules by m outh three times daily as needed. Take 1 capsule by mo uth three times a day as needed for cough. Take 2 capsules by m outh three times a day as needed for cough. calcium carbonate 750 mg chewable tablet (20 sources) Start: 01-01-2025 take 1 tablet by mouth twice daily Calcium Carbonate (Calcium Antacid) 300 mg (750 mg) tablet,chewable Active 300 mg PO TWICE A DAY January 01, 2025 12:00am Complies with drug therapy Start: 05-19-2021 End: 12-11-2024 take 1 tablet by mouth twice daily calcium Carbonate 300 mg, 750mg, (TUMS) 300 mg (750 mg) chewable tablet Take 1 tablet by mouth twice daily. 05/19/2021 12/11/2024 Discontinued (Course of therapy completed) Start: 10-10-2020 End: 03-29-2023 take 1 tablet by mouth once daily Calcium Carbonate 600 mg calcium (1,500 mg) tablet Discontinued 600 mg PO DAILY October 10, 2020 12:00am March 29, 2023 11:52am Comment on above: [facility] cholecalciferol 0.05 mg oral capsule (20 sources) Vitamin D Start: 01-02-20 take 1 capsule by mouth once daily Cholecalciferol (Vitamin D3) 50 mcg (2,000 unit) capsule Active 50 ug PO daily January 01, 2025 12:00am Complies with drug therapy Start: 06-20-2019 End: 12-11-2024 take 1 capsule by mouth once daily Cholecalciferol (Vitamin D3) 50 mcg (2,000 unit) capsule Discontinued 50 ug PO DAILY October 10, 2020 12:00am October 23, 2024 6:35pm supplement Comment on above: Take 1 capsule by mo [facility] once daily. diclofenac sodium 0.01 mg/mg topical gel (5 sources) Nonsteroidal Anti-inflammatory Drug Start: 10-08-19 End: 11-07-19 apply 2 g topically three times daily as needed diclofenac (VOLTAREN) 1 % topical gel Indications: Rib pain on left side Apply 2 g to affected area three times a day as needed. 20 g 10/07/2024 11/06/2024 Active donepezil hydrochloride 10 mg oral tablet (20 sources) Start: 07-06-19 take 1 tablet by mouth once daily Donepezil 10 mg tablet Active 10 mg PO DAILY October 23, 2024 12:00am Complies with drug therapy Start: 05-02-2024 End: 10-23-2024 take 1 tablet by mouth at bedtime Donepezil 5 mg Tablet Discontinued 5 mg PO AT BEDTIME 1 May 02, 2024 1:00am October 23, 2024 6:35pm doxycycline monohydrate 100 mg oral tablet (3 sources) Tetracycline-class Drug Start: 02-12-2023 End: 02-17-2023 take 1 tablet by mouth twice daily doxycycline monohydrate 100 mg tablet Indications: Bacterial pneumonia Take 1 tablet by mouth two times a day for 5 days. 10 tablet 0 02/12/2023 02/17/2023 Active Start: 01-11-2023 End: 01-18-2023 take 1 tablet by mouth twice daily doxycycline monohydrate 100 mg tablet Indications: Protracted URI Take 1 tablet by mouth twice daily for 7 days. 14 tablet 0 01/11/2023 01/18/2023 Active Start: 03-27-2022 End: 04-06-2022 take 1 tablet by mouth twice daily doxycycline monohydrate 100 mg tablet Indications: Bronchitis Take 1 tablet by mouth twice daily for 10 days. 20 tablet 0 03/27/2022 04/06/2022 Active Comment on above: Take 1 tablet by charlotte th twice daily for 10 days. Take 1 tablet by charlotte th twice daily for 7 days. Take 1 tablet by charlotte th two times a day for 5 days. Inhalational Spacing Device (1 source) Start: 03-05-20 End: 03-05-20 Inhalational Spacing Device 1 Device one time only for 1 dose. 1 Each 0 03/05/2023 03/05/2023 Active Comment on above: 1 Device one time on ly for 1 dose. levoFLOXacin 500 mg oral tablet (3 sources) Quinolone Antimicrobial Start: 01-11-20 End: 01-21-20 take 1 tablet by mouth once daily levoFLOXacin (LEVAQUIN) 500 mg tablet Take 1 tablet by mouth once daily for 10 days. 10 tablet 01/11/2024 01/21/2024 Active loperamide hydrochloride 2 mg oral capsule (20 sources) Opioid Agonist Start: 01-02-20 take 1 capsule by mouth every six hours as needed Loperamide 2 mg capsule Active 2 mg PO EVERY 6 HOURS as needed January 01, 2025 12:00am Complies with drug therapy Start: 07-03-2022 End: 10-23-2024 take 1 capsule by mouth every six hours as needed Loperamide 2 mg capsule Discontinued 2 mg PO EVERY 6 HOURS as needed for loose stool July 03, 2022 12:00am October 23, 2024 6:35pm Start: 10-10-2020 End: 10-16-2020 take 1 tablet by mouth once daily as needed Loperamide 2 mg tablet Discontinued 2 mg PO DAILY as needed October 10, 2020 12:00am October 16, 2020 2:22pm Comment on above: Take 2 mg by mouth a s needed. melatonin 3 mg oral tablet (20 sources) Start: take 1 tablet by mouth at bedtime as needed Melatonin 3 mg Tablet Active 3 mg PO AT BEDTIME as needed for Insomnia 1 May 02, 2024 1:00am Complies with drug therapy multivitamin tablet (20 sources) take 1 tablet by mouth once daily multivitamin tablet Take 1 tablet by mouth once daily. Active take 1 tablet by mouth once betzy y multivitamin tablet Take 1 tablet by mouth once daily. 0 Active Comment on above: Take 1 tablet by [place]lotte once daily. Multivitamin tablet (6 sources) Start: 10-10-2020 Multivitamin tablet Active 1 {tbl} PO DAILY October 10, 2020 12:00am supplement Complies with drug therapy Start: 10-10-2020 Multivitamin t ablet Active 1 {tbl} PO DAILY October 10, 2020 12:00am supplement traZODone hydrochloride 50 mg oral tablet (9 sources) Serotonin Reuptake Inhibitor Start: 01-16-2025 Trazodone 50 mg tablet Active 25 mg PO AT BEDTIME January 16, 2025 12:00am Complies with drug therapy Start: 12-11-2024 take 0.5 tablet by m outh once daily at bedtime traZODone (DESYREL) 50 mg tablet Take 0.5 tablets by mouth daily at bedtime. 45 tablet 1 12/11/2024 Active Completed/Discontinued Medications Medication Drug Class(es) Dates Sig (Normalized) Sig (Original) ascorbic acid 500 mg oral tablet (17 sources) Vitamin C Start: 05-19-2021 End: 11-24-2022 take 2 tablets by mouth once daily ascorbic acid, vitamin C, (VITAMIN C) 500 mg tablet Take 2 tablets by mouth once daily. 05/19/2021 11/24/2022 Discontinued Comment on above: Take 2 tablets by mo uth once daily. bisacodyl 10 mg rectal suppository (6 sources) Stimulant Laxative Start: 05-02-2024 End: 06-08-2024 Bisacodyl 10 mg Suppository Discontinued 10 mg RC ONE TIME as needed for Constipation 1 May 02, 2024 1:00am June 08, 2024 10:56am Calcium Carbonate / vitamin D3 (1 source) End: 05-19-2021 take 600 mg by mouth once CALCIUM CARBONATE/VITAMIN D3 (CALCIUM + D ORAL) Take by mouth. 600 mg calcium 05/19/2021 Discontinued cefadroxil 500 mg oral capsule (5 sources) Cephalosporin Antibacterial Start: 07-27-2023 End: 08-06-2023 take 1 capsule by mouth twice daily cefADROxil (DURICEF) 500 mg capsule Take 1 capsule by mouth two times a day for 10 days. 20 capsule 07/27/2023 08/06/2023 Comment on above: Take 1 capsule by mo [facility] two times a day for 10 days. cefuroxime 250 mg oral tablet (6 sources) Cephalosporin Antibacterial Start: 05-02-2024 End: 06-08-2024 take 2 tablets by mouth every twelve hours Cefuroxime Axetil 250 mg Tablet Discontinued 500 mg PO EVERY 12 HOURS 5 0 May 02, 2024 1:00am June 08, 2024 10:56am dextran 70 1 mg/ml / glycerin 2 mg/ml / hypromellose 3 mg/ml ophthalmic solution (1 source) Plasma Volume Change Number Operator, Non-Standardized Chemical Allergen Start: 06-08-2024 End: 01-01-2025 Artificial Tear(Gnmgs-Xtc-Rq y) 0.1-0.3-0.2 % drops Discontinued 2 NMA OPHTHALMIC 4 to 12 times per day as needed for dry eyes June 08, 2024 1:00am January 01, 2025 8:28am dextromethorphan hydrobromide 1 mg/ml / guaiFENesin 20 mg/ml oral solution (6 sources) Uncompetitive Y-ajxltd-P-aspartat e Receptor Antagonist, Sigma-1 Agonist Start: 06-08-2024 End: 10-23-2024 take 1 mL by mouth every four hours as needed Dextromethorphan- Guaifenesin (Robitussin Cough-Chest Pedro Dm) 5-100 mg/5 mL liquid Discontinued 10 mL PO Q4H as needed June 08, 2024 1:00am October 23, 2024 6:35pm Start: 06-08-2024 End: 10-23-2024 take 1 mL by mouth every four hours as needed Dextromethorphan-Guaifenesin (Robitussin Cough-Chest Pedro Dm) 5-100 mg/5 mL liquid Discontinued 10 mL PO Q4H as needed June 08, 2024 1:00am October 23, 2024 6:35pm DOCOSAHEXANOIC ACID/EPA (FISH OIL ORAL) (20 sources) End: 07-05-2024 take 1000 mg by mouth once daily DOCOSAHEXANOIC ACID/EPA (FISH OIL ORAL) Take 1,000 mg by mouth once daily. 07/05/2024 Discontinued (Other) take 1000 mg by mouth once daily DOCOSAHEXANOIC ACID/EPA (FISH OIL ORAL) Take 1,000 mg by mouth once daily. Active take 1000 mg by mouth once daily DOCOSAHEXANOIC ACID/EPA (FISH OIL ORAL) Take 1,000 mg by mouth once daily. 0 Active Comment on above: Take 1,000 mg by charlotte th once daily. docusate sodium 50 mg / sennosides, residential 8.6 mg oral tablet (6 sources) Start: 05-02-2024 End: 10-23-2024 Sennosides-Docusate Sodium (Stimulant Laxative Plus) 8.6-50 mg Tablet Discontinued 1 {tbl} PO TWICE A DAY 1 0 May 02, 2024 1:00am October 23, 2024 6:35pm doxylamine succinate 25 mg oral tablet (20 sources) Start: 10-10-2020 End: 05-02-2024 take 1 tablet by mouth at bedtime as needed for sleep Doxylamine Succinate (Nighttime Sleep-Aid (Doxylamn)) 25 mg tablet Discontinued 25 mg PO AT BEDTIME as needed for Sleep October 10, 2020 12:00am May 02, 2024 12:04pm End: 07-05-2024 doxylamine succinate (NITE T JACOB SLEEP AID ORAL) Take by mouth as directed. Taking Nature's Bounty Sleep 3 as directed 07/05/2024 Discontinued doxylamine succi jaziel (NITE TIME SLEEP AID ORAL) Take by mouth as directed. Taking Nature's Bounty Sleep 3 as directed Active doxylamine succi jaziel (NITE TIME SLEEP AID ORAL) Take by mouth as directed. Taking Nature's Bounty Sleep 3 as directed 0 Active Comment on above: Take by mouth as dir ected. Taking Nature's Bounty Sleep 3 as directed ELDERBERRY FRUIT (10 sources) End: 11-24-2022 elderberry fruit (ELDERBERRY ORAL) Take by mouth once daily. 0 11/24/2022 Discontinued elderberry fruit (ELDERBERRY ORAL) Take by mouth once daily. 0 Active Comment on above: Take by mouth once d aily. glycerin 2 mg/ml / hypromellose 2 mg/ml / polyethylene glycol 400 10 mg/ml ophthalmic solution (6 sources) Non-Standardized Chemical Allergen Start: 05-02-19 End: 06-08-19 Peg 024-Gllfzliskqsb-Kfi cerin (Artificial Tears(Yp-Xqrn-Ghhg)) 1-0.2-0.2 % Drops Discontinued 2 NMA EACH EYE Q1H as needed for DRY EYES 1 May 02, 2024 1:00am June 08, 2024 10:56am 12 hr guaiFENesin 600 mg extended release oral tablet (6 sources) Start: 06-08-19 End: 08-25-19 take 2 tablets by mouth twice daily, then take 1 tablet by mouth every twelve hours Guaifenesin (Mucinex) 600 mg tablet extended release 12hr Discontinued 1200 mg PO TWICE A DAY June 08, 2024 1:00am August 24, 2024 10:53am magnesium hydroxide 80 mg/ml oral suspension (6 sources) Start: 05-02-19 End: 06-08-19 take 1 mL by mouth once as needed for constipation Magnesium Hydroxide 400 mg/5 mL Suspension Discontinued 30 mL PO ONE TIME as needed for Constipation 30 0 May 02, 2024 1:00am June 08, 2024 10:56am Start: 05-02-2024 End: 06-08-2024 take 1 mL by mouth once as needed for constipation Magnesium Hydroxide 400 mg/5 mL Suspension Discontinued 30 mL PO ONE TIME as needed for Constipation 30 0 May 02, 2024 1:00am June 08, 2024 10:56am menthol 0.04 mg/mg topical gel (11 sources) Start: 06-08-2024 End: 12-07-2024 Menthol (Biofreeze (Menthol)) 4 % gel Discontinued 1 NMA TOPICAL TWICE A DAY as needed October 26, 2024 9:39am December 07, 2024 11:07am 24 hr metoprolol succinate 25 mg extended release oral tablet (20 sources) beta-Adrenergic Rina Start: 07-05-2024 End: 10-27-2024 take 1 tablet by mouth once daily Metoprolol Succinate 25 mg tablet extended release 24 hr Discontinued 25 mg PO DAILY October 23, 2024 12:00am October 26, 2024 10:08am Start: 10-10-2020 End: 10-23-2024 take 1 tablet by mouth once daily Metoprolol Succinate 50 mg tablet extended release 24 hr Discontinued 50 mg PO DAILY October 10, 2020 12:00am October 23, 2024 6:35pm HTN Comment on above: Take 1 tablet by charlotte th once daily. take 1 tablet by charlotte th once daily mineral oil 0.425 mg/mg / petrolatum 0.573 mg/mg ophthalmic ointment (18 sources) Start: 0 End: 3 apply 1 drop(s) into the eye(s) twice daily White Petrolatum-Mineral Oil (LUBRICANT EYE) 57.3-42.5 % ointment Use 1 Drop in the right eye twice daily. 3.5 g 01/22/2020 11/24/2022 Discontinued Comment on above: Use 1 Drop in the ri ght eye twice daily. multivit-min/vit C/herb no.124 (AIRBORNE GUMMY ORAL) (1 source) End: 2 multivit-min/vit C/herb no.124 (AIRBORNE GUMMY ORAL) Take by mouth as directed. 05/19/2021 Discontinued (Course of therapy completed) [place]-3 Fatty Acids (Fish Oil Concentrate) 1,000 mg capsule (6 sources) Start: 1 End: 5 take 1 capsule by mouth once daily [place]-3 Fatty Acids (Fish Oil Concentrate) 1,000 mg capsule Discontinued 1000 mg PO DAILY October 10, 2020 12:00am June 08, 2024 10:56am cholesterol omeprazole 20 mg delayed release oral capsule (20 sources) Proton Pump Inhibitor Start: 4 End: 5 take 1 capsule by mouth once daily before breakfast omeprazole (PRILOSEC) 20 mg capsule Take 1 capsule by mouth daily before breakfast. 1/2 hr before meal. 30 capsule 1 09/07/2023 05/30/2024 Discontinued ondansetron 4 mg oral tablet (6 sources) Serotonin-3 Receptor Antagonist Start: 5 End: 5 take 1 tablet by mouth every four hours as needed Ondansetron Hcl 4 mg tablet Discontinued 4 mg PO Q4H as needed June 08, 2024 1:00am August 24, 2024 10:53am predniSONE 10 mg oral tablet (6 sources) Start: 4 End: 5 rivaroxaban 20 mg oral tablet (20 sources) Factor Xa Inhibitor Start: 1 End: 4 take 1 tablet by mouth once daily at dinner Rivaroxaban (Xarelto) 20 mg tablet Discontinued 20 mg PO DAILY 90 4 March 29, 2023 1:05pm April 07, 2024 7:10pm must administer with evening meal Comment on above: Take 1 tablet by charlotte th once daily. vit A-vit C-vit S-doyk-ncdyvv (EYE VITAMIN AND MINERALS) 7,160-113-100 fjek-mh-lwun tab (9 sources) vit A-vit C-vit F-xmjy-lxlltg (EYE VITAMIN AND MINERALS) 7,160-113-100 mwlm-ft-mcfw tab Take by mouth. 0 Active Comment on above: Take by mouth. vit A-vit C-vit C-uhwr-hgpnsz 7,160-113-100 eamn-gu-iqym tab (9 sources) End: 3 vit A-vit C-vit F-qmxt-ifefxk 7,160-113-100 zfeb-uz-vtxa tab Take by mouth. 11/24/2022 Discontinued End: 11-24-2022 vit A-vit C-vit S-covu-mxjis r 7,160-113-100 muuj-dv-zkux tab Take by mouth. 0 11/24/2022 Discontinued vit A-vit C-vit O-lpjf-mqdolb 7,160-113-100 uvou-mb-idsh tab Take by mouth. 0 Active Comment on above: Take by mouth. Zinc Sulfate (17 sources) End: 11-24-2022 zinc sulfate (ZINC-15 ORAL) Take by mouth. 11/24/2022 Discontinued End: 11-24-2022 zinc sulfate (ZINC-15 ORAL) Take by mouth. 0 11/24/2022 Discontinued zinc sulfate (ZI NC-15 ORAL) Take by mouth. 0 Active Comment on above: Take by mouth. 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 No new action at this point per neurology. Cardiac dysrhythmias (20 sources) Paroxysmal atrial fibrillation; Translations: [Atrial fibrillation] Onset: 07-15-2017 05-19-2021 Chronic Comment on above: Patient is in A-fib in neurology clinic today. This was checked by checking pulse and also by using pulse oximeter with rhythm strip. Chronic obstructive pulmonary disease and bronchiectasis (1 source) Bronchitis; Translations: [Bronchitis, not specified as acute or chronic] Episodic Coagulation and hemorrhagic disorders (20 sources) Platelet count below reference range; Translations: [Thrombocytopenia, unspecified] Onset: 05-02-2024 Resolved: 07-05-2024 Chronic Coagulation and hemorrhagic disorders (1 source) Secondary thrombocytopenia; Translations: [Other secondary thrombocytopenia] Episodic Conduction disorders (20 sources) Right bundle branch block; Translations: [Unspecified right bundle-branch block] Onset: 09-27-2024 09-27-2024 Chronic Delirium, dementia, and amnestic and other cognitive disorders (20 sources) Dementia; Translations: [Unspecified dementia without behavioral disturbance] Onset: 05-02-2024 05-30-2024 Chronic Comment on above: Patient does have re cent memory defect. She is currently on donepezil. No change in neurologic status noted. No new action indicated. Disorders of lipid metabolism (20 sources) Hyperlipidemia; Translations: [Hyperlipidemia, unspecified] Onset: 05-02-2024 05-11-2024 Chronic Essential hypertension (20 sources) Essential (primary) hypertension; Translations: [Essential hypertension] Onset: 07-15-2017 05-19-2021 Chronic Gastrointestinal hemorrhage (11 sources) Finding of appearance of stool; Translations: [Melena] Onset: 06-08-2024 06-08-2024 Episodic Comment on above: Patient reports huy y black stool this morning. Patient had significant nasal bleeding 7 to 10 days ago. Severity of bleeding indicated by tarry black stool is uncertain. Genitourinary symptoms and ill-defined conditions (6 sources) Increased frequency of urination; Translations: [Urgent desire to urinate] Onset: 12-11-2024 12-11-2024 Episodic Malaise and fatigue (20 sources) Asthenia; Translations: [Weakness] Onset: 04-17-2024 04-17-2024 Episodic Medical examination/evaluation (1 source) Encounter for preprocedural cardiovascular examination; Translations: [Encounter for preprocedural cardiovascular examination] Onset: 07-15-2017 Episodic Miscellaneous mental health disorders (10 sources) Primary insomnia; Translations: [Primary insomnia] Onset: 12-11-2024 12-11-2024 Chronic Nutritional deficiencies (7 sources) Vitamin D deficiency; Translations: [Vitamin D deficiency, unspecified] Onset: 05-02-2024 05-11-2024 Chronic Osteoarthritis (20 sources) Osteoarthritis; Translations: [Unspecified osteoarthritis, unspecified site] Onset: 11-01-2017 Resolved: 12-23-2017 05-19-2021 Chronic Other aftercare (18 sources) Long-term current use of anticoagulant; Translations: [computer terminal operator (current) use of anticoagulants] 10-23-2024 Episodic Other circulatory disease (3 sources) Wheeze - rhonchi; Translations: [Other specified symptoms and signs involving the circulatory and respiratory systems] 04-07-2024 Episodic Other circulatory disease (20 sources) History of cerebrovascular accident; Translations: [Personal history of transient ischemic attack (TIA), and cerebral infarction without residual deficits] Onset: 04-23-2024 04-23-2024 Episodic Other circulatory disease (6 sources) H/O: atrial fibrillation; Translations: [Personal history of other diseases of the circulatory system] 06-16-2024 Episodic Other circulatory disease (6 sources) History of embolic cerebrovascular accident; Translations: [Personal history of transient ischemic attack (TIA), and cerebral infarction without residual deficits] 11-20-2024 Episodic Comment on above: Patient has history of multiple strokes as noted above. Patient is made good recovery to this point. No new action per neurology indicated. Other circulatory disease (1 source) Other specified symptoms and signs involving the circulatory and respiratory systems; Translations: [Rhonchi at left lung base] Onset: 12-29-2024 Episodic Other connective tissue disease (11 sources) Recurrent falls ; Translations: [Repeated falls] Onset: 12-11-2024 12-11-2024 Episodic Other connective tissue disease (1 source) Repeated falls; Translations: [Multiple falls] Onset: 12-11-2024 Episodic Other ear and sense organ disorders (1 source) Impacted cerumen in right ear; Translations: [Impacted cerumen, right ear] 05-27-2023 Episodic Other eye disorders (20 sources) Hemorrhage of right vitreous body; Translations: [Vitreous hemorrhage, right eye] Onset: 09-27-2024 09-27-2024 Chronic Other eye disorders (1 source) Vitreous hemorrhage, right eye; Translations: [Vitreous hemorrhage, right eye (HCC)] Onset: 09-27-2024 Chronic Other fractures (3 sources) Open fracture of one rib; Translations: [Fracture of one rib, left side, subsequent encounter for fracture with routine healing] 10-19-2024 Episodic Other fractures (1 source) Fracture of one rib, left side, subsequent encounter for fracture with routine healing; Translations: [Open fracture of one rib of left side with routine healing, subsequent encounter] Onset: 11-03-2024 Episodic Other gastrointestinal disorders (6 sources) Dark stools; Translations: [Other fecal abnormalities] 06-16-2024 Episodic Other gastrointestinal disorders (1 source) Finding of defecation; Translations: [Other specified symptoms and signs involving the digestive system and abdomen] 12-11-2024 Episodic Other gastrointestinal disorders (1 source) Other specified symptoms and signs involving the digestive system and abdomen; Translations: [Defecation symptom] Onset: 12-11-2024 Episodic Other gastrointestinal disorders (1 source) Diarrhea, unspecified; Translations: [Diarrhea, unspecified] Onset: 01-11-2025 Episodic Other gastrointestinal disorders (1 source) Full incontinence of feces; Translations: [Full incontinence of feces] Onset: 01-11-2025 Episodic Other gastrointestinal disorders (1 source) Change in bowel habit; Translations: [Change in bowel habit] Onset: 01-11-2025 Episodic Other gastrointestinal disorders (2 sources) Altered bowel function; Translations: [Change in bowel habit] 01-11-2025 Episodic Other gastrointestinal disorders (2 sources) Diarrhea; Translations: [Diarrhea, unspecified] 01-11-2025 Episodic Other gastrointestinal disorders (2 sources) Incontinence of feces; Translations: [Full incontinence of feces] 01-11-2025 Episodic Other inflammatory condition of skin (1 source) Itching ; Translations: [Pruritus, unspecified] 12-11-2024 Episodic Other inflammatory condition of skin (1 source) Pruritus, unspecified; Translations: [Itching] Onset: 12-11-2024 Episodic Other injuries and conditions due to external causes (1 source) Injury of upper extremity; Translations: [Unspecified injury of left shoulder and upper arm, initial encounter] 12-03-2023 Episodic Other injuries and conditions due to external causes (5 sources) H/O: Disorder; Translations: [Personal history of other (healed) physical injury and trauma] 10-23-2024 Episodic Other injuries and conditions due to external causes (1 source) History of heat stroke; Translations: [Personal history of other (healed) physical injury and trauma] 10-31-2024 Episodic Other liver diseases (20 sources) Inflammatory disease of liver; 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, unspecified] Onset: 11-08-2017 05-19-2021 Chronic Other lower respiratory disease (12 sources) Cough; Translations: [Cough] Episodic Other lower respiratory disease (2 sources) Persistent cough; Translations: [Persistent cough] 01-11-2024 Episodic Other lower respiratory disease (4 sources) Cough; Translations: [Acute cough] 02-18-2024 Episodic Other lower respiratory disease (1 source) Difficulty breathing; Translations: [Other abnormalities of breathing] 04-07-2024 Episodic Other lower respiratory disease (4 sources) Rib pain; Translations: [Pleurodynia] 10-07-2024 Episodic Other lower respiratory disease (6 sources) Hypoxia; Translations: [Hypoxemia] 04-17-2024 Episodic Other nervous system disorders (6 sources) Disorder of brain; Translations: [Encephalopathy, unspecified] 05-11-2024 Chronic Other nervous system disorders (1 source) Encephalopathy, unspecified; Translations: [Encephalopathy, unspecified] Onset: 05-02-2024 Chronic Other nervous system disorders (20 sources) Impairment of balance; Translations: [Other abnormalities of gait and mobility] Onset: 07-05-2024 07-05-2024 Episodic Other nervous system disorders (6 sources) Salas's palsy; Translations: [Salas's palsy] 05-11-2024 Episodic Other non-traumatic joint disorders (1 source) Pain in elbow; Translations: [Pain in left elbow] 11-21-2020 Episodic Other non-traumatic joint disorders (1 source) Pain in wrist; Translations: [Pain in left wrist] 11-21-2020 Episodic Other nutritional; endocrine; and metabolic disorders (20 sources) Obese class II; Translations: [Obesity, unspecified] Onset: 11-08-2017 05-19-2021 Chronic Other nutritional; endocrine; and metabolic disorders (1 source) Hypercalcemia; Translations: [Hypercalcemia] Chronic Other upper respiratory disease (1 source) Bronchospasm; Translations: [Acute bronchospasm] 03-05-2023 Episodic Other upper respiratory disease (6 sources) Bleeding from nose; Translations: [Epistaxis] 11-21-2023 Episodic Other upper respiratory infections (4 sources) Acute pansinusitis; Translations: [Acute pansinusitis, unspecified] Episodic Paralysis (20 sources) Left hemiparesis; Translations: [Hemiplegia, unspecified affecting left nondominant side] Onset: 05-02-2024 05-30-2024 Chronic Comment on above: Patient's left-sided weakness appears to have decreased significantly. She has minimal obvious residual but does have arthritis in the left shoulder which limits some actions of the left arm. Patient is prone to falling. Residual codes; unclassified (2 sources) Viral syndrome; Translations: [Other general symptoms and signs] 07-12-2024 Episodic Residual codes; unclassified (6 sources) Insomnia; Translations: [Insomnia, unspecified] 05-11-2024 Episodic Unclassified (1 source) Unknown / UNK(Unknown) Onset: 07-15-2017 Unclassified (1 source) Finding of defecation 12-11-2024 Unclassified (1 source) Acute cough; Translations: [Acute cough] Onset: 12-29-2024 Past or Other Problems Problem Classification Problem Date Documented Date Episodic/Chronic Acute bronchitis (3 sources) Acute bronchiolitis due to respiratory syncytial virus; Translations: [Acute bronchiolitis due to respiratory syncytial virus] Onset: 04-17-2024 04-17-2024 Episodic Administrative/social admission (20 sources) Advance directive discussed with patient; Translations: [Other specified counseling] Onset: 11-20-2021 05-27-2022 Episodic Diabetes mellitus without complication (20 sources) High hemoglobin A1c level; Translations: [Other abnormal glucose] Onset: 11-08-2017 05-19-2021 Episodic Fluid and electrolyte disorders (9 sources) Hyperkalemia; Translations: [Hyperkalemia] Onset: 05-02-2024 Episodic Noninfectious gastroenteritis (7 sources) Chronic diarrhea; Translations: [Noninfective gastroenteritis and colitis, unspecified] Onset: 05-02-2024 05-11-2024 Episodic Other aftercare (20 sources) Patient encounter status; Translations: [Other moth exterminator (current) drug therapy] Onset: 05-19-2021 05-19-2021 Episodic Other aftercare (1 source) computer terminal operator (current) use of anticoagulants; Translations: [residential (current) use of anticoagulants] Onset: 05-02-2024 Episodic Other bone disease and musculoskeletal deformities (20 sources) Senile osteopenia; Translations: [Other specified disorders of bone density and structure, unspecified site] Onset: 09-25-2020 05-19-2021 Episodic Other circulatory disease (1 source) Personal history of transient ischemic attack (TIA), and cerebral infarction without residual deficits; Translations: [History of CVA (cerebrovascular accident)] Onset: 09-27-2024 Episodic Other lower respiratory disease (10 sources) Chronic cough; Translations: [Chronic cough] Onset: 05-02-2024 07-27-2023 Episodic Other lower respiratory disease (1 source) Pleurodynia; Translations: [Rib pain on left side] Onset: 10-07-2024 Episodic Other lower respiratory disease (1 source) Hypoxemia; Translations: [Hypoxemia] Onset: 04-17-2024 Episodic Other lower respiratory disease (1 source) Other abnormalities of breathing; Translations: [Other abnormalities of breathing] Onset: 04-17-2024 Episodic Other nervous system disorders (1 source) Other abnormalities of gait and mobility; Translations: [Balance disorder] Onset: 07-05-2024 Episodic Other nervous system disorders (1 source) Salas's palsy; Translations: [Salas's palsy] Onset: 05-02-2024 Episodic Other non-traumatic joint disorders (20 sources) Pain in right knee; Translations: [Pain in joint, lower leg] Onset: 01-09-2010 05-19-2021 Episodic Other screening for suspected conditions (not mental disorders or infectious disease) (20 sources) Pseudothrombocytopeni a; Translations: [Other abnormal findings in specimens from other organs, systems and tissues] Onset: 12-10-2021 12-10-2021 Episodic Other skin disorders (20 sources) Actinic keratosis; Translations: [Actinic keratosis] Onset: 05-19-2021 05-19-2021 Episodic Pneumonia (except that caused by tuberculosis or sexually transmitted disease) (9 sources) Bacterial pneumonia; Translations: [Unspecified bacterial pneumonia] Onset: 05-02-2024 02-12-2023 Episodic Comment on above: More likely than not related to recent RSV infection.....secondary bacterial infection. Residual codes; unclassified (20 sources) Power of contract attorney in existence; Translations: [Other specified health status] Onset: 06-01-2024 06-01-2024 Episodic Residual codes; unclassified (1 source) Other general symptoms and signs; Translations: [Flu-like symptoms] Onset: 07-12-2024 Episodic Residual codes; unclassified (1 source) Insomnia, unspecified; Translations: [Insomnia, unspecified] Onset: 05-02-2024 Episodic Spondylosis; intervertebral disc disorders; other back problems (20 sources) Chronic low back pain; Translations: [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] Onset: 11-30-2022 11-24-2022 Episodic Unclassified (1 source) Encounter for preprocedural cardiovascular examination Onset: 07-15-2017 Viral infection (17 sources) Verruca vulgaris; Translations: [Viral wart, unspecified] Onset: 03-19-2021 11-24-2022 Episodic Results Test Name Value Interpretation Reference Range Facility Giardia lamblia ag stool EIA Ordered By: Daniela Downey on 01-12-2025 G. lamblia Ag IA Ql (Stl) Negative Negative [facility] Comment on above: Performed at: - [address] [id number] Director: Bob Ring PhD, Phone: [phone] CNTHERAPYon 01-11-2025 CNTHERAPY OT/PT/Speech Visit ( PTWS) KRYSTYNA KHANNA ([id number]) 1935 F Date Time Provider Department 01/11/25 5:15 PM STEVE MANE PTWS Date Time Provider Department Center 01/11/2025 5:15 PM [id number], COLIN PTWS [facility] Reason for Visit: Patient Left Without Being Seen [2006] Primary Visit Diagnosis:Multiple falls [R29.6] Other Visit Diagnoses:History of CVA (cerebrovascular accident) [Z86.73] Balance disorder [R26.89] General weakness [R53.1] Allergies As of Date: 01/11/2025 Noted Allergy Reaction DARVOCET A500 (PROPOXYPHENE N-APOLINAR*04/26/2012 16 - Unknown PROPOXYPHENE 07/03/2022 16 - Unknown SULFA (SULFONAMIDE ANTIBIOTICS) 04/26/2012 14 - Other: See Comments Comments: didn't feel right, nervousness Date Reviewed: 01/05/2025 Reviewed by: Tiff Hall LPN - Fully Assessed Prescriptions as of 01/11/2025 - benzonatate (TESSALON PERLES) 100 mg capsule Take 2 capsules by mouth three times a day as needed for cough. - amiodarone (PACERONE) 200 mg tablet Take 200 mg by mouth once daily. - traZODone (DESYREL) 50 mg tablet Take 0.5 tablets by mouth daily at bedtime. - atorvastatin (LIPITOR) 40 mg tablet Take 1 tablet by mouth once daily. - donepezil (ARICEPT) 10 mg tablet Take 1 tablet by mouth daily at bedtime. - apixaban (ELIQUIS) 5 mg tab(s) Take 1 tablet by mouth two times a day. - melatonin 3 mg tablet Take 1 tablet by mouth daily at bedtime. - loperamide HCl (IMODIUM) 2 mg tab Take 2 mg by mouth as needed. - multivitamin tablet Take 1 tablet by mouth once daily. - acetaminophen (TYLENOL) 500 mg tablet Take 500 mg by mouth every 6 hours as needed. Normal [facility] Gastroenterology Visit Repor ton 01-11-2025 Gastroenterology Visit Report Normal [facility] (FAMPWS) KRYSTYNA KHANNA ([id number]) 1935 F Date Time Provider Department [facility] visit today, we recorded the following information about you: Rolly Gaytan, RN 01/10/2025 1:05 PM Signed This nurse was asked to call son as he scheduled appt with Dr. Erickson on 01/15/25 at 10 am to discuss possible jail placement for patient. Son- Espinoza reports pt has hx of stroke on [place] with left sided weakness, but was able to recover the strength in left side through [facility] rehab stay. Reports pt lives with him, and he, his 2 brothers, and sister in law all take care of patient. Son is concerned because patient's legs are weak, and without calling for them to help, pt walks herself to the bathroom and falls. Espinoza reports pt is getting to be too much for him and his brothers to lift when she falls. Reports it took all of them to get patient into house one day because she is heavier when her legs get weak and pt does not help them. Reports pt still fell 3 times with all of them holding onto her. Espinoza feels patient may need to go back to the jail. Espinoza discussed this with a nurse at [facility] who told him there are only 2 ways to do this: # 1- go to ER and be admitted for 3 days, or # 2 see patient's doctor to write an order. Reports patient's dementia is part of the problem also. Espinoza reports he, his 2 brothers, patient, and sister in law are coming to the appt on Wednesday. Rufino Erickson MD 01/10/2025 8:22 PM Signed Advise son that the only option to be admitted in a jail is to take her to the ER so she can meet the required 3 day stay by medicare and then be transferred to a nursing facility. The option of seeing the provider and they write an order is not true and can not be done. It was ok during COVID but no longer exists as an option. Sophie Barbosa LPN 01/11/2025 8:31 AM Signed Patient's son Espinoza notified of recommendations. He stated that he will speak with the family. Sophie Barbosa LPN Allergies As of Date: 01/10/2025 Noted Allergy Reaction DARVOCET A500 (PROPOXYPHENE N-APOLINAR*04/26/2012 16 - Unknown PROPOXYPHENE 07/03/2022 16 - Unknown SULFA (SULFONAMIDE ANTIBIOTICS) 04/26/2012 14 - Other: See Comments Comments: didn't feel right, nervousness Date Reviewed: 01/05/2025 Reviewed by: Tiff Hall LPN - Fully Assessed Reason for Visit: Pt concern [Other] Prescriptions as of 01/11/2025 - benzonatate (TESSALON PERLES) 100 mg capsule Take 2 capsules by mouth three times a day as needed for cough. - amiodarone (PACERONE) 200 mg tablet Take 200 mg by mouth once daily. - traZODone (DESYREL) 50 mg tablet Take 0.5 tablets by mouth daily at bedtime. - atorvastatin (LIPITOR) 40 mg tablet Take 1 tablet by mouth once daily. - donepezil (ARICEPT) 10 mg tablet Take 1 tablet by mouth daily at bedtime. - apixaban (ELIQUIS) 5 mg tab(s) Take 1 tablet by mouth two times a day. - melatonin 3 mg tablet Take 1 tablet by mouth daily at bedtime. - loperamide HCl (IMODIUM) 2 mg tab Take 2 mg by mouth as needed. - multivitamin tablet Take 1 tablet by mouth once daily. - acetaminophen (TYLENOL) 500 mg tablet Take 500 mg by mouth every 6 hours as needed. Problem List As Of Date 01/10/2025 Noted Resolved Bilateral knee pain [M25.561, M25.562] 01/09/2010 Osteoarthritis [M19.90] 11/01/2017 Hypertension, essential [I10] 11/08/2017 Atrial fibrillation (HCC) [I48.91] 11/08/2017 Hepatitis [K75.9] 11/08/2017 Elevated hemoglobin A1c [R73.09] 11/08/2017 Obesity, Class II, BMI 35-39.9 [E66.812] 11/08/2017 Arthritis of knee [M17.10] 11/19/2017 12/23/2017 Primary osteoarthritis of left knee [M17.12] 11/24/2017 12/23/2017 Encounter for Medicare annual wellness exam [Z0*09/25/2020 Osteopenia, senile [M85.80] 09/25/2020 AK (actinic keratosis) [L57.0] 05/19/2021 Medication management [Z79.899] 05/19/2021 Advance directive discussed with patient [Z71.8*11/20/2021 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] 12/10/2021 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 *11/30/2022 History of CVA (cerebrovascular accident) [Z86.*04/23/2024 Thrombocytopenia [D69.6] 05/30/2024 07/05/2024 Left hemiparesis (HCC) [G81.94] 05/30/2024 Dementia without behavioral disturbance (HCC) [*05/30/2024 Power of contract attorney for health care on file [Z78.*06/01/2024 Balance disorder [R26.89] 07/05/2024 RBBB [I45.10] 09/27/2024 Vitreous hemorrhage, right eye (HCC) [H43.11] 09/27/2024 Multiple falls [R29.6] 12/11/2024 Primary insomnia [F51.01] 12/11/2024 General weakness [R53.1] 01/02/2025 Encounter Status:Closed by SOPHIE BARBOSA on 01/11/25 [facility] CNTHERAPYon 01-09-2025 CNTHERAPY OT/PT/Speech Visit ( PTWS) KRYSTYNA KHANNA ([id number]) 1935 F Date Time Provider Department 01/09/25 2:15 PM STEVE MANE PTWS Date Time Provider Department [place] 01/09/2025 2:15 PM [id number], COLIN PTWS Dinh Lopez Reason for Visit: Physical Therapy [503] Primary Visit Diagnosis:Multiple falls [R29.6] Other Visit Diagnoses:History of CVA (cerebrovascular accident) [Z86.73] Balance disorder [R26.89] General weakness [R53.1] Allergies As of Date: 01/09/2025 Noted Allergy Reaction DARVOCET A500 (PROPOXYPHENE N-APOLINAR*04/26/2012 16 - Unknown PROPOXYPHENE 07/03/2022 16 - Unknown SULFA (SULFONAMIDE ANTIBIOTICS) 04/26/2012 14 - Other: See Comments Comments: didn't feel right, nervousness Date Reviewed: 01/05/2025 Reviewed by: Tiff Hall LPN - Fully Assessed Prescriptions as of 01/10/2025 - benzonatate (TESSALON PERLES) 100 mg capsule Take 2 capsules by mouth three times a day as needed for cough. - amiodarone (PACERONE) 200 mg tablet Take 200 mg by mouth once daily. - traZODone (DESYREL) 50 mg tablet Take 0.5 tablets by mouth daily at bedtime. - atorvastatin (LIPITOR) 40 mg tablet Take 1 tablet by mouth once daily. - donepezil (ARICEPT) 10 mg tablet Take 1 tablet by mouth daily at bedtime. - apixaban (ELIQUIS) 5 mg tab(s) Take 1 tablet by mouth two times a day. - melatonin 3 mg tablet Take 1 tablet by mouth daily at bedtime. - loperamide HCl (IMODIUM) 2 mg tab Take 2 mg by mouth as needed. - multivitamin tablet Take 1 tablet by mouth once daily. - acetaminophen (TYLENOL) 500 mg tablet Take 500 mg by mouth every 6 hours as needed. Textile Chemist: Therapy (PT/OT/Speech/Resp) ID: [id number] 01/09/2025 2:51 PM Author: STEVE MANE Signed by STEVE MANE PT on 01/09/2025 at 2:51 PM Document text: Program_ID:[id number] Access Code: [email or web address] URL: [email or web address] Date: 01-09-2025 Prepared By: Steve Mane Program Notes Exercises - Seated Hip Adduction Isometrics with Ball - 2 x daily - 7 x weekly - 2 sets - 10-12 reps - Seated March - 2 x daily - 7 x weekly - 2 sets - 10-12 reps - Seated Long Arc Quad - 2 x daily - 7 x weekly - 2 sets - 10-12 reps - Sit to Stand with Counter Support - 2 x daily - 7 x weekly - 2 sets - 10 reps - Seated Heel Raise - 2 x daily - 7 x weekly - 2-3 sets - 12-15 reps - Seated Toe Raise - 2 x daily - 7 x weekly - 2-3 sets - 12-15 reps [facility] THERAPY NTon 01-09-2025 THERAPY NT HNO ID: [id number] Author: STEVE MANE, PT Service: ? Author Type: Physical Therapist Type: Therapy (PT/OT/Speech/Resp) Filed: 01/09/2025 14:51 Note Text: Program_ID:[id number] Access Code: [email or web address] URL: [email or web address] Date: 01-09-2025 Prepared By: Steve Mane Program Notes Exercises - Seated Hip Adduction Isometrics with Ball - 2 x daily - 7 x weekly - 2 sets - 10-12 reps - Seated March - 2 x daily - 7 x weekly - 2 sets - 10-12 reps - Seated Long Arc Quad - 2 x daily - 7 x weekly - 2 sets - 10-12 reps - Sit to Stand with Counter Support - 2 x daily - 7 x weekly - 2 sets - 10 reps - Seated Heel Raise - 2 x daily - 7 x weekly - 2-3 sets - 12-15 reps - Seated Toe Raise - 2 x daily - 7 x weekly - 2-3 sets - 12-15 reps [facility] CNOVon 01-05-2025 [facility] KRYSTYNA KHANNA ([id number]) 1935 F Date Time Provider Department 01/05/25 11:40 AM [facility] During your visit today, we recorded the following information about you: Temperature Pulse Respiration Blood pressure 99 degrees 72/minute 16/minute 106/72 Weight 66.7 kg Sarah Yang PA-C 01/05/2025 12:49 PM Signed Krystyna Khanna is a 89 year old female here for a Medicare wellness visit. Medicare Health Risk Assessment General Health Fair Exercise: Minutes/Day 0 min Exercise: Days/Week 0 days Alcohol: Daily Use Never Alcohol: Drinks/Day Patient does not drink Alcohol: 6 or more drinks Never Feel off balance Yes Concerns: Teeth/Dentures No Concerns: Sexual function No Troubled by feelings None of the above Frequency: Eating healthy diet Several days ADLs requiring help Grocery shopping; Cooking; Housework; Bathing; Sitting or standing; Walking; Managing urine leakage; Handling finances; Taking medications Safety precautions in home/vehicle Yes Smoke, vape, chews tobacco No Difficulty hearing Yes, I wear a hearing aid Difficulty seeing No Current Providers Specialists: I have reviewed specialist-related care of the patient in the medical record. Medical/Family history review Reviewed and updated problem list, medical/surgical/family/soci al history, medications, and allergies. Opioid use review Opioid Medications (last 90 days) No data to display Anxiety/Depression screening PHQ-9 Score: 10 (Moderate Depression) JOANN-7 Score: 7 (Mild Anxiety) Recommendation: no further intervention at this time and continuing current treatment plan Cognitive screening Cognitive screening reviewed and Patient has known cognitive impairment. Functional Observation Was the patient's Timed Up AND Go test unsteady or >= 12 seconds? Yes Advance Care Planning Surrogate decision maker and/or advance care plan documented Measurements BP 106/72 (BP Site: Left Arm, BP Position: Sitting, BP Cuff Size: Large Adult) Pulse 72 Temp 37.2 ?C (99 ?F) Resp 16 Wt 66.7 kg (147 lb) SpO2 96% BMI 30.69 kg/m? Vision Screening: Follows with optometry/ophthalmology Assessment/Plan Medicare annual wellness visit, subsequent (Z00.00) - Counseled on healthy diet and regular exercise - Fall avoidance information provided - Personalized prevention plan provided Chief Complaint Patient presents with: Medicare Wellness Exam HPI Krystyna Khanna is a 89 year old female who presents here today for extensive exam. 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 Extensive Exam: - [id number] present, providing additional history. - Recent weight fluctuations: 147 lbs in October, increased to 153 lbs, now back to 147 lbs. - Reports pruritus, especially at night, primarily on the arms. has improved some - Krystyna denies flu vaccination; prefers to wait until January. Melena: - Reports melena, initially very dark but now less so. - Scheduled to see Dr. Gardner next week for evaluation. - No new bruising or epistaxis. Cough: - Persistent cough with phlegm production for at least three weeks. - Recent chest X-ray was normal. - Uses a significant amount of tissues daily due to cough. Nocturia: - Experiences frequent nocturia, requiring the use of a double pad. - Has a urology consult scheduled in two weeks. Insomnia: - Takes 25 mg of a 50 mg trazodone tablet at bedtime PRN for sleep. - Reports that the medication helps but does not last long. - Taking a full 50 mg tablet causes morning drowsiness. Anxiety and Depression: - Reports stable anxiety and depression. - Expresses discomfort with dependence on her children for care. Past medical history, appointments, medications, allergies reviewed. 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 11/30/2022 Dementia without behavioral disturbance (HCC) 05/30/2024 Elevated hemoglobin A1c 11/08/2017 Encounter for Medicare annual wellness exam 09/25/2020 Medical B eligibilty date 02/18/2000 Date of last exam 10/25/2020 Hepatitis thinks B History of congestive heart failure History of CVA (cerebrovascular accident) 04/23/2024 04/19/2024: Rt frontoparietal, Lt parietal History of heart attack Hypertension, essential 11/08/2017 Left hemiparesis (HCC) 05/30/2024 Obesity, Class II, BMI 35-39.9 11/08/2017 Osteoarthritis Osteopenia, senile 09/25/2020 Primary insomnia 12/11/2024 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 No further w/u needed (more content not included)... [facility] [id number] 01-02-2025 [id number] HNO ID: [id number] Author: STEVE MANE PT Service: ? Author Type: Physical Therapist Type: [id number] Filed: 01/02/2025 13:20 Note Text: [facility] Physical Therapy Plan of Care Certification Patient Name: Krystyna Khanna : 1935 [facility] #: [id number] Date: 01/02/2025 To: Rufino Erickson MD From Therapist: Steve Mane PT RE: Patient Certification/ Recertification Your review, approval and electronic signature are required in order to comply with Payor: MEDICARE / Plan: MEDICARE A AND B / Product Type: Medicare / regulations. The identified Physical Therapy PLAN OF CARE for the patient is as follows: R29.6 Multiple falls (primary encounter diagnosis) R26.89 Balance disorder Z86.73 History of CVA (cerebrovascular accident) R53.1 General weakness PLAN OF CARE: Assessment: Krystyna Khanna presents with chief complaint of weakness, deconditioning/debility, ambulation + transfer deficits as well as past falls that interferes with rising from a chair, walking, stair negotiation, physical activities . The patient presents with impairments in ADL's, balance, gait, independence in exercise, overall function, strength, symptom management, and functional performance testing indicates at risk for falls. PROMIS? (Patient-Reported Outcomes Measurement Information System) scores were reviewed and identified as a rehabilitation concern. Prognosis for therapy is Fair due to: clinical presentation, advanced age, chronic nature of impairments, Prognosis may be improved by positive past response to therapy, within-session changes, good support system/ coping skills. The patient will benefit from skilled therapy services to meet the goals established for this plan of care as noted below. Assessment Fall Risk : Complex at risk Goals for Episode of Care: established 01/02/25 [place] in home exercise program. Patient will report no falls. Improve score on Timed Up and Go Test to <22.5 seconds to reflect decreased fall risk. Improve score on 5xSTS test to 13 sec to reflect decreased fall risk. Patient will be able to transfer from a lower chair independently without the use of her hands in order to demonstrate improved functional strength and transfer ability. Patient will increase balance (4-stage balance test) to allow patient to demonstrate appropriate balance strategies to reduce risk for falls. Normal gait with her FWW, with proper sizing and navigation. Patient Goals: More strength in legs and mobility for indep. movement/transfers. Time Frame for Goals and Treatment : 02/23/25 Planned Interventions, Frequency, and Duration: Current Frequency: 2x/week Duration: 5 weeks Total Number of Visits Planned: 10 Planned Treatment Interventions: Therapeutic exercise (50451), Neuromuscular re-education (47093), Manual therapy (10056), Therapeutic activities (70615), Self-nursing home management (73635), Patient/Family/Caregiver Education, General Conditioning, Gait Training (22607) PLAN FOR NEXT VISIT: Assess adherance to HEP; size patients FWW if she brings it in; balance, gait AND Gross LE Functional Strength. Patient demonstrates good understanding of plan of care and treatment. The above goals and plan of care were discussed and agreed upon by patient/family. For further details regarding this patient refer to the Physical Therapy electronically documented visit dated 01/02/2025. Provider Attestation I have reviewed the treatment plan for Krystyna Khanna, [facility]# [id number] for the period of 01/02/25 -- 02/23/25, established on 01/02/2025. Signature certifies the need for therapy services. [facility] CNTHERAPYon 01-02-2025 CNTHERAPY OT/PT/Speech Visit ( PTWS) HERLINDAKRYSTYNA Chan ([id number]) 1935 F Date Time Provider Department 01/02/25 10:45 AM STEVE MANE PTWS Date Time Provider Department Center 01/02/2025 10:45 AM [id number], COLIN PTWS Dinh Lopez Reason for Visit: PT Eval [747] Primary Visit Diagnosis:Multiple falls [R29.6] Other Visit Diagnoses:Balance disorder [R26.89] History of CVA (cerebrovascular accident) [Z86.73] General weakness [R53.1] Allergies As of Date: 01/02/2025 Noted Allergy Reaction DARVOCET A500 (PROPOXYPHENE N-APOLINAR*04/26/2012 16 - Unknown PROPOXYPHENE 07/03/2022 16 - Unknown SULFA (SULFONAMIDE ANTIBIOTICS) 04/26/2012 14 - Other: See Comments Comments: didn't feel right, nervousness Date Reviewed: 12/29/2024 Reviewed by: Antoinette Serrano MA - Fully Assessed Prescriptions as of 01/02/2025 - benzonatate (TESSALON PERLES) 100 mg capsule Take 2 capsules by mouth three times a day as needed for cough. - amiodarone (PACERONE) 200 mg tablet Take 200 mg by mouth once daily. - traZODone (DESYREL) 50 mg tablet Take 0.5 tablets by mouth daily at bedtime. - atorvastatin (LIPITOR) 40 mg tablet Take 1 tablet by mouth once daily. - donepezil (ARICEPT) 10 mg tablet Take 1 tablet by mouth daily at bedtime. - apixaban (ELIQUIS) 5 mg tab(s) Take 1 tablet by mouth two times a day. - melatonin 3 mg tablet Take 1 tablet by mouth daily at bedtime. - loperamide HCl (IMODIUM) 2 mg tab Take 2 mg by mouth as needed. - multivitamin tablet Take 1 tablet by mouth once daily. - acetaminophen (TYLENOL) 500 mg tablet Take 500 mg by mouth every 6 hours as needed. Textile Chemist: Therapy (PT/OT/Speech/Resp) ID: [id number] 01/02/2025 11:35 AM Author: STEVE MANE Signed by STEVE MANE PT on 01/02/2025 at 11:35 AM Document text: Program_ID:[id number] Access Code: [email or web address] URL: [email or web address] Date: 01-02-2025 Prepared By: Steve Mane Program Notes Exercises - Seated Hip Adduction Isometrics with Ball - 2 x daily - 7 x weekly - 2 sets - 10-12 reps - Seated Hip Abduction with Resistance - 2 x daily - 7 x weekly - 2 sets - 10-12 reps - Seated June - 2 x daily - 7 x weekly - 2 sets - 10-12 reps - Seated Long Arc Quad - 2 x daily - 7 x weekly - 2 sets - 10-12 reps - Sit to Stand with Counter Support - 2 x daily - 7 x weekly - 2 sets - 10 reps [facility] THERAPY NTon 01-02-2025 THERAPY NT HNO ID: [id number] Author: STEVE MANE PT Service: ? Author Type: Physical Therapist Type: Therapy (PT/OT/Speech/Resp) Filed: 01/02/2025 11:35 Note Text: Program_ID:[id number] Access Code: [email or web address] URL: [email or web address] Date: 01-02-2025 Prepared By: Steve Mane Program Notes Exercises - Seated Hip Adduction Isometrics with Ball - 2 x daily - 7 x weekly - 2 sets - 10-12 reps - Seated Hip Abduction with Resistance - 2 x daily - 7 x weekly - 2 sets - 10-12 reps - Seated March - 2 x daily - 7 x weekly - 2 sets - 10-12 reps - Seated Long Arc Quad - 2 x daily - 7 x weekly - 2 sets - 10-12 reps - Sit to Stand with Counter Support - 2 x daily - 7 x weekly - 2 sets - 10 reps [facility] CNPNon 01-01-2025 CNPN Telephone (FAMPWS) KRYSTYNA KAHNNA ([id number]) 1935 F Date Time Provider Department 01/01/25 [facility] During your visit today, we recorded the following information about you: Cecelia Raymond MA 01/01/2025 4:31 PM Signed Office received 90 day Physician order forms from [place] for PCP to sign and review. This has been completed and faxed back to [phone]. Cecelia Raymond MA Allergies As of Date: 01/01/2025 Noted Allergy Reaction DARVOCET A500 (PROPOXYPHENE N-APOLINAR*04/26/2012 16 - Unknown PROPOXYPHENE 07/03/2022 16 - Unknown SULFA (SULFONAMIDE ANTIBIOTICS) 04/26/2012 14 - Other: See Comments Comments: didn't feel right, nervousness Date Reviewed: 12/29/2024 Reviewed by: Antoinette Serrano MA - Fully Assessed Reason for Visit: Forms [913] Cmt: [place] Prescriptions as of 01/01/2025 - benzonatate (TESSALON PERLES) 100 mg capsule Take 2 capsules by mouth three times a day as needed for cough. - amiodarone (PACERONE) 200 mg tablet Take 200 mg by mouth once daily. - traZODone (DESYREL) 50 mg tablet Take 0.5 tablets by mouth daily at bedtime. - atorvastatin (LIPITOR) 40 mg tablet Take 1 tablet by mouth once daily. - donepezil (ARICEPT) 10 mg tablet Take 1 tablet by mouth daily at bedtime. - apixaban (ELIQUIS) 5 mg tab(s) Take 1 tablet by mouth two times a day. - melatonin 3 mg tablet Take 1 tablet by mouth daily at bedtime. - loperamide HCl (IMODIUM) 2 mg tab Take 2 mg by mouth as needed. - multivitamin tablet Take 1 tablet by mouth once daily. - acetaminophen (TYLENOL) 500 mg tablet Take 500 mg by mouth every 6 hours as needed. Problem List As Of Date 01/01/2025 Noted Resolved Bilateral knee pain [M25.561, M25.562] 01/09/2010 Osteoarthritis [M19.90] 11/01/2017 Hypertension, essential [I10] 11/08/2017 Atrial fibrillation (HCC) [I48.91] 11/08/2017 Hepatitis [K75.9] 11/08/2017 Elevated hemoglobin A1c [R73.09] 11/08/2017 Obesity, Class II, BMI 35-39.9 [E66.812] 11/08/2017 Arthritis of knee [M17.10] 11/19/2017 12/23/2017 Primary osteoarthritis of left knee [M17.12] 11/24/2017 12/23/2017 Encounter for Medicare annual wellness exam [Z0*09/25/2020 Osteopenia, senile [M85.80] 09/25/2020 AK (actinic keratosis) [L57.0] 05/19/2021 Medication management [Z79.899] 05/19/2021 Advance directive discussed with patient [Z71.8*11/20/2021 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] 12/10/2021 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 *11/30/2022 History of CVA (cerebrovascular accident) [Z86.*04/23/2024 Thrombocytopenia [D69.6] 05/30/2024 07/05/2024 Left hemiparesis (HCC) [G81.94] 05/30/2024 Dementia without behavioral disturbance (HCC) [*05/30/2024 Power of contract attorney for health care on file [Z78.*06/01/2024 Balance disorder [R26.89] 07/05/2024 RBBB [I45.10] 09/27/2024 Vitreous hemorrhage, right eye (HCC) [H43.11] 09/27/2024 Multiple falls [R29.6] 12/11/2024 Primary insomnia [F51.01] 12/11/2024 Encounter Status:Closed by CECELIA RAYMOND on 01/01/25 [facility] OCCULT BLD EXAM-DIAGon 12-30 OCCULT BLD EXAM-DIAG Positive Abnormal [facility] Comment on above: Performed By: #### O BDX ####[facility] LABCLIA [id number] [place] [address] [place] CBC W Auto Differential pane l (Bld)on 12-29-2024 Basophils (Bld) [#/Vol] NINF [facility] Basophils/100 WBC (Bld) 0.3 % [facility] Differential cell count method Nom (Bld) Auto [facility] Eosinophils (Bld) [#/Vol] NINF [facility] Eosinophils/100 WBC (Bld) 0.0 % [facility] Erythrocyte distribution width (RBC) [Ratio] 12.6 % 11.5 - 15.0 % [facility] Hematocrit (Bld) [Volume fraction] 38.5 % 36.0 - 46.0 % [facility] Hemoglobin (Bld) [Mass/Vol] 12.7 g/dL 11.5 - 15.5 g/dL [facility] Immature granulocytes (Bld) [#/Vol] [facility] Immature granulocytes/100 WBC (Bld) 0.3 % [facility] Lymphocytes (Bld) [#/Vol] 1.92 10*3/uL [facility] Lymphocytes/100 WBC (Bld) 31.9 % [facility] MCH (RBC) [Entitic mass] 31.1 pg 26.0 - 34.0 pg [facility] MCHC (RBC) [Mass/Vol] 33.0 g/dL 30.5 - 36.0 g/dL [facility] MCV (RBC) [Entitic vol] 94.1 fL 80.0 - 100.0 fL [facility] Monocytes (Bld) [#/Vol] 0.81 10*3/uL [facility] Monocytes/100 WBC (Bld) 13.5 % [facility] Neutrophils (Bld) [#/Vol] 3.24 10*3/uL [facility] Neutrophils/100 WBC (Bld) 54.0 % [facility] Nucleated RBC (Bld) [#/Vol] [facility] Nucleated RBC/100 WBC (Bld) [Ratio] 0.0 % /100 WBC [facility] Platelet mean volume (Bld) [Entitic vol] [facility] Comment on above: Unable to Report. Platelets (Bld) [#/Vol] [facility] Comment on above: Platelets Clumped Es timate Low. RBC (Bld) [#/Vol] 4.09 10*6/uL 3.90 - 5.20 m/uL [facility] WBC (Bld) [#/Vol] 6.01 10*3/uL [facility] This is an appended report. These results have been appended to a previously verified report. [facility] Basophils (Bld) [#/Vol] 10*3/uL Normal <0.11 [facility] Comment on above: Order Comment: Speci men Type: BLOOD SPECIMENOrdering Facility: [facility] Address: [address] [place] [address] Performed By: #### 5 7021-8 ####[facility] DINH [facility] [id number] [address] [facility] LABORATORYCLIA [id number] [place] [address] [place] Basophils/100 WBC (Bld) 0.3 % [facility] Comment on above: Order Comment: Speci men Type: BLOOD SPECIMENOrdering Facility: [facility] Address: [address] [place] [address] Performed By: #### 5 7021-8 ####[facility] MILLTOWNCLIA [id number] [address] LABORATORYCLIA [id number] [place] [address] [place] Differential cell count method Nom (Bld) Auto [facility] Comment on above: Order Comment: Speci men Type: BLOOD SPECIMENOrdering Facility: [facility] Address: [address] [place] [address] Performed By: #### 5 7021-8 ####[facility] MILLTOWNCLIA [id number] [address] LABORATORYCLIA [id number] [place] [address] [place] Eosinophils (Bld) [#/Vol] 10*3/uL Normal <0.46 [facility] Comment on above: Order Comment: Speci men Type: BLOOD SPECIMENOrdering Facility: [facility] Address: [address] [place] [address] Performed By: #### 5 7021-8 ####[facility] MILLTOWNCLIA [id number] [address] LABORATORYCLIA [id number] [place] [address] [place] Eosinophils/100 WBC (Bld) 0.0 % Normal [facility] Comment on above: Order Comment: Speci men Type: BLOOD SPECIMENOrdering Facility: [facility] Address: [address] [place] [id number] Performed By: #### 5 7021-8 ####[facility] LULABROWNWSCOTTIELIA [id number] [address] LABORATORYCLIA [id number] [place] [address] [place] Erythrocyte distribution width (RBC) [Ratio] 12.6 % Normal 11.5-15.0 [facility] Comment on above: Order Comment: Speci men Type: BLOOD SPECIMENOrdering Facility: [facility] Address: [address] [place] [address] Performed By: #### 5 7021-8 ####[facility] HOSPITALFLORIANA [id number] [address] LABORATORYIA [id number] [place] [address] [place] Hematocrit (Bld) [Volume fraction] 38.5 % Normal 36.0-46.0 [facility] Comment on above: Order Comment: Speci men Type: BLOOD SPECIMENOrdering Facility: [facility] Address: [address] [place] [address] Performed By: #### 5 7021-8 ####[facility] LULABROWNWSCOTTIELIA [id number] [address] LABORATORYIA [id number] [place] [address] [place] Hemoglobin (Bld) [Mass/Vol] 12.7 g/dL Normal 11.5-15.5 [facility] Comment on above: Order Comment: Speci men Type: BLOOD SPECIMENOrdering Facility: [facility] Address: [address] [address] Performed By: #### 5 7021-8 ####[facility] HOSPITALBROWNWSCOTTIELIA [id number] [address] LABORATORYCLIA [id number] [place] [address] [place] Immature granulocytes (Bld) [#/Vol] 10*3/uL Normal <0.10 [facility] Comment on above: Order Comment: Speci men Type: BLOOD SPECIMENOrdering Facility: [facility] Address: [address] [place] [address] Performed By: #### 5 7021-8 ####[facility] MILLTOWNCLIA [id number] [address] LABORATORYCLIA [id number] [place] [address] [place] Immature granulocytes/100 WBC (Bld) 0.3 % Normal [facility] Comment on above: Order Comment: Speci men Type: BLOOD SPECIMENOrdering Facility: [facility] Address: [address] [place] [address] Performed By: #### 5 7021-8 ####[facility] MILLTOWNCLIA [id number] [address] LABORATORYCLIA [id number] [place] [address] [place] Lymphocytes (Bld) [#/Vol] 1.92 10*3/uL Normal 1.00-4.00 [facility] Comment on above: Order Comment: Speci men Type: BLOOD SPECIMENOrdering Facility: [facility] Address: [address] [place] [address] Performed By: #### 5 7021-8 ####[facility] MILLTOWNCLIA [id number] [address] LABORATORYCLIA [id number] [place] [address] [place] Lymphocytes/100 WBC (Bld) 31.9 % Normal [facility] Comment on above: Order Comment: Speci men Type: BLOOD SPECIMENOrdering Facility: [facility] Address: [address] [place] [address] Performed By: #### 5 7021-8 ####[facility] LULAChandrakantNCLIA [id number] [address] LABORATORYCLIA [id number] [place] [address] [place] MCH (RBC) [Entitic mass] 31.1 pg Normal 26.0-34.0 [facility] Comment on above: Order Comment: Speci men Type: BLOOD SPECIMENOrdering Facility: [facility] Address: [address] [place] [address] Performed By: #### 5 7021-8 ####[facility]ITALNC[facility] [id number] [address] LABORATORYCLIA [id number] [place] [address] [place] MCHC (RBC) [Mass/Vol] 33.0 g/dL Normal 30.5-36.0 [facility] Comment on above: Order Comment: Speci men Type: BLOOD SPECIMENOrdering Facility: [facility] Address: [address] [place] [address] Performed By: #### 5 7021-8 ####[facility] [id number] [address] LABORATORYCLIA [id number] [place] [address] [place] MCV (RBC) [Entitic vol] 94.1 fL Normal 80.0-100.0 [facility] Comment on above: Order Comment: Speci men Type: BLOOD SPECIMENOrdering Facility: [facility] Address: [address] [place] [address] Performed By: #### 5 7021-8 ####[facility] HOSPITALNCLIA [id number] [address] LABORATORYCLIA [id number] [place] [address] [place] Monocytes (Bld) [#/Vol] 0.81 10*3/uL Normal <0.87 [facility] Comment on above: Order Comment: Speci men Type: BLOOD SPECIMENOrdering Facility: [facility] Address: [address] [place] [address] Performed By: #### 5 7021-8 ####[facility]PITALWNCLIA [id number] [address] LABORATORYCLIA [id number] [place] [address] [place] Monocytes/100 WBC (Bld) 13.5 % Normal [facility] Comment on above: Order Comment: Speci men Type: BLOOD SPECIMENOrdering Facility: [facility] Address: [address] [place] [address] Performed By: #### 5 7021-8 ####[facility] HOSPITALWNCLIA [id number] [address] LABORATORYCLIA [id number] [place] [address] [place] Neutrophils (Bld) [#/Vol] 3.24 10*3/uL Normal 1.45-7.50 [facility] Comment on above: Order Comment: Speci men Type: BLOOD SPECIMENOrdering Facility: [facility] Address: [address] [place] [address] Performed By: #### 5 7021-8 ####[facility] MILLWNCLIA [id number] [address] LABORATORYCLIA [id number] [place] [address] [place] Neutrophils/100 WBC (Bld) 54.0 % Normal [facility] Comment on above: Order Comment: Speci men Type: BLOOD SPECIMENOrdering Facility: [facility] Address: [address] [place] [address] Performed By: #### 5 7021-8 ####[facility] HOSPITALWKSLIA [id number] [address] LABORATORYCLIA [id number] [place] [address] [place] Nucleated RBC (Bld) [#/Vol] 10*3/uL Normal <0.01 [facility] Comment on above: Order Comment: Speci men Type: BLOOD SPECIMENOrdering Facility: [facility] Address: [address] [place] [address] Performed By: #### 5 7021-8 ####[facility] [id number] [address] LABORATORYCLIA [id number] [place] [address] [place] Nucleated RBC/100 WBC (Bld) [Ratio] 0.0 /100 WBC Normal [facility] Comment on above: Order Comment: Speci men Type: BLOOD SPECIMENOrdering Facility: [facility] Address: [address] [place] [address] Performed By: #### 5 7021-8 ####[facility]ITALLIA [id number] [address] LABORATORYCLIA [id number] [place] [address] [place] Platelet mean volume (Bld) [Entitic vol] Normal [facility] Comment on above: Order Comment: Speci men Type: BLOOD SPECIMENOrdering Facility: [facility] Address: [address] [place] [address] Result Comment: Unab le to Report. Performed By: #### 5 7021-8 ####[facility] MILLTOWNCLIA [id number] [address] LABORATORYCLIA [id number] [place] [address] [place] Platelets (Bld) [#/Vol] Normal [facility] Comment on above: Order Comment: Speci men Type: BLOOD SPECIMENOrdering Facility: [facility] Address: [address] [place] [address] Result Comment: Plat elets Clumped Estimate Low. Performed By: #### 5 7021-8 ####[facility]PITALLIA [id number] [address] LABORATORYCLIA [id number] [place] [address] [place] RBC (Bld) [#/Vol] 4.09 10*6/uL Normal 3.90-5.[address] [facility] Comment on above: Order Comment: Speci men Type: BLOOD SPECIMENOrdering Facility: [facility] Address: [address] [place] [address] Performed By: #### 5 7021-8 ####[facility]PITALNCLIA [id number] [address] LABORATORYCLIA [id number] [place] [address] [place] WBC (Bld) [#/Vol] 6.01 10*3/uL Normal 3.70-11.[address] [facility] Comment on above: Order Comment: Speci men Type: BLOOD SPECIMENOrdering Facility: [facility] Address: [address] [place] [address] Performed By: #### 5 7021-8 ####[facility] HOSPITALNCLIA [id number] [address] OF [facility] LABORATORYCLIA [id number] [place] [address] [facility] RAFAOVon 12-29-2024 [facility] Office Visit (ISAIAHWS ) KRYSTYNA KHANNA ([id number]) 1935 F Date Time Provider Department 12/29/24 9:40 AM LULU STATON During your visit today, we recorded the following information about you: Pulse Blood pressure 89/minute 101/61 Lulu Staton APRN.CYLINDER BLOCK MECHANIC 12/29/2024 9:51 AM Signed Chief Complaint Patient presents with: Cough: X 1 week black stools HPI Krystynajaye Khanna is a 89 year old female who presents here today for Above Complaints. Patient presents for dark tarry stool. Patient is not on iron supplementation or taking pepto. Denies abdominal pain. Also reports productive cough with some Shortness of Breath. Past medical history, appointments, medications, allergies reviewed. 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 11/30/2022 Dementia without behavioral disturbance (HCC) 05/30/2024 Elevated hemoglobin A1c 11/08/2017 Encounter for Medicare annual wellness exam 09/25/2020 Medical B eligibilty date 02/18/2000 Date of last exam 10/25/2020 Hepatitis thinks B History of congestive heart failure History of CVA (cerebrovascular accident) 04/23/2024 04/19/2024: Rt frontoparietal, Lt parietal History of heart attack Hypertension, essential 11/08/2017 Left hemiparesis (HCC) 05/30/2024 Obesity, Class II, BMI 35-39.9 11/08/2017 Osteoarthritis Osteopenia, senile 09/25/2020 Primary insomnia 12/11/2024 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 No further w/u needed and ok to stay on Xarelto RBBB 09/27/2024 Vitreous hemorrhage, right eye (HCC) 09/27/2024 Previous Surgical History PAST SURGICAL HISTORY Procedure Laterality Date 2D ECHO (EXEP) 10/28/2020 EF=60%, 1+ TImod alvarez dysf ARTHRP KNE CONDYLEANDPLATU MEDIALANDLAT COMPARTMENTS Left 11/19/2017 Knee replacement, total PAST SURGICAL HISTORY OF 2004 right knee replacement REMV CATARACT EXTRACAP,INSERT LENS Bilateral REMV CATARACT EXTRACAP,INSERT LENS Right 12/05/2024 REVISION OF UPPER EYELID Bilateral 11/21/2021 TUBAL LIGATION Family History FAMILY HISTORY Problem Relation Age of Onset Heart Mother Heart Father 59 heart trouble Hypertension Father Heart Sister Breast Cancer Sister Cancer Paternal Grandmother stomach Breast Cancer Maternal Aunt Diabetes Maternal Aunt Diabetes Other cousin Patient Allergies ALLERGIES Allergen Reactions Darvocet A500 [Prop* Unknown Propoxyphene Unknown Sulfa (Sulfonamide * Other: See Comments didn't feel right, nervousness Current Medications Current Outpatient Medications on File Prior to Visit Medication Sig amiodarone (PACERONE) 200 mg tablet Take 200 mg by mouth once daily. traZODone (DESYREL) 50 mg tablet Take 0.5 tablets by mouth daily at bedtime. atorvastatin (LIPITOR) 40 mg tablet Take 1 tablet by mouth once daily. donepezil (ARICEPT) 10 mg tablet Take 1 tablet by mouth daily at bedtime. apixaban (ELIQUIS) 5 mg tab(s) Take 1 tablet by mouth two times a day. melatonin 3 mg tablet Take 1 tablet by mouth daily at bedtime. benzonatate (TESSALON PERLES) 100 mg capsule Take 2 capsules by mouth three times a day as needed for cough. loperamide HCl (IMODIUM) 2 mg tab Take 2 mg by mouth as needed. multivitamin tablet Take 1 tablet by mouth once daily. acetaminophen (TYLENOL) 500 mg tablet Take 500 mg by mouth every 6 hours as needed. No current facility-administered medications on file prior to visit. Social History SOCIAL HISTORY[1] Review of Symptoms REVIEW OF SYSTEMS SEE HPI EXAM: BP 101/61 Pulse 89 PHYSICAL EXAMINATION: General appearance: Lungs: Positive findings: rhonchi Shortness of breath: While lying flat Cough Heart: RRR without murmur, gallop, or rubs. No ectopy Abdomen: Normal abdominal exam, Abdomen soft, non-tender. Bowel sounds normal. No masses, organomegaly Health Maintenance List Shingrix Vaccine(1 of 2) Never done RSV Vaccine(1 - 1-dose 75+ series) Never done Advance Directive Discussion due on 04/19/2024 Medicare Annual Wellness Visit due on 11/24/2024 Influenza Vaccine(1) due on 12/18/2024 DTaP,Tdap,Td Vaccine(2 - Td or Tdap) due on 11/18/2027 Diabetes Screening due on 12/12/2027 Bone Density Screening Completed Pneumococcal Vaccine: 50+ Completed ASSESSMENT/PLAN: 1. Black tarry stools - ICD9: 578.1, ICD10: K92.1 (primary diagnosis) - OCCULT BLD EXAM-DIAG - COMPLETE BLOOD COUNT AND DIFFERENTIAL 2. Acute cough - ICD9: 786.2, ICD10: R05.1 - XR CHEST 2V FRONTAL/LAT 3. Rhonchi at left lung base - ICD9: 786.7, ICD10: R09.89 - XR CHEST 2V FRONTAL/LAT Luul Staton, STOCK FEEDER.CYLINDER BLOCK MECHANIC [1] Social History Tobacco Use Smoking status: Never (more content not included)... Normal [facility] XR CHEST 2V FRONTAL/LATon XR CHEST 2V FRONTAL/LAT * * *Final Report* * * DATE OF EXAM: Dec 29 2024 10:30AM WOX [id number] - XR CHEST 2V FRONTAL/LAT / PROCEDURE REASON: multiple diagnoses * * * * Physician Interpretation * * * * EXAMINATION: CHEST RADIOGRAPH (2 VIEW FRONTAL and LATERAL) CLINICAL HISTORY: Acute cough Rhonchi at left lung base MQ: XC2_6 EXAM DATE/TIME: 12/29/2024 10:30 AM COMPARISON: 11/03/2024 RESULT: Lines, tubes, and devices: None. Lungs and pleura: No consolidation. No lung mass. No pleural effusion. No pneumothorax. Pulmonary vascularity normal. Calcified granuloma, right lower lung. Cardiomediastinal silhouette: Stable cardiac size Bones and soft tissues: Unremarkable. IMPRESSION: No acute radiographic abnormality. Elementary School Teacher'S Aide: BEBETO Transcribe Date/Time: Dec 29 2024 10:43A Dictated by : CLAUDETTE SANTILLAN MD This examination was interpreted and the report reviewed and electronically signed by: CLAUDETTE SANTILLAN MD on Dec 29 2024 10:45AM EST [id number] Normal [facility] XR Chest PA and Lateralon IMPRESSION: No acute radiographic abnormality. Elementary School Teacher'S Aide: BEBETO Transcribe Date/Time: Dec 29 2024 10:43A Dictated by : CLAUDETTE SANTILLAN MD This examination was interpreted and the report reviewed and electronically signed by: CLAUDETTE SANTILLAN MD on Dec 29 2024 10:45AM EST DIVISION OF RADIOLOGY * * *Final Report* * * DATE OF EXAM: Dec 29 2024 10:30AM WOX [id number] - XR CHEST 2V FRONTAL/LAT / PROCEDURE REASON: multiple diagnoses * * * * Physician Interpretation * * * * EXAMINATION: CHEST RADIOGRAPH (2 VIEW FRONTAL & LATERAL) CLINICAL HISTORY: Acute cough Rhonchi at left lung base MQ: XC2_6 EXAM DATE/TIME: 12/29/2024 10:30 AM COMPARISON: 11/03/2024 RESULT: Lines, tubes, and devices: None. Lungs and pleura: No consolidation. No lung mass. No pleural effusion. No pneumothorax. Pulmonary vascularity normal. Calcified granuloma, right lower lung. Cardiomediastinal silhouette: Stable cardiac size Bones and soft tissues: Unremarkable. DIVISION OF RADIOLOGY Provider, [facility] - 12/29/2024 * * *Final Report* * * DATE OF EXAM: Dec 29 2024 10:30AM WOX 5291 - XR CHEST 2V FRONTAL/LAT / PROCEDURE REASON: multiple diagnoses * * * * Physician Interpretation * * * * EXAMINATION: CHEST RADIOGRAPH (2 VIEW FRONTAL & LATERAL) CLINICAL HISTORY: Acute cough Rhonchi at left lung base MQ: XC2_6 EXAM DATE/TIME: 12/29/2024 10:30 AM COMPARISON: 11/03/2024 RESULT: Lines, tubes, and devices: None. Lungs and pleura: No consolidation. No lung mass. No pleural effusion. No pneumothorax. Pulmonary vascularity normal. Calcified granuloma, right lower lung. Cardiomediastinal silhouette: Stable cardiac size Bones and soft tissues: Unremarkable. IMPRESSION IMPRESSION: No acute radiographic abnormality. Elementary School Teacher'S Aide: PSCB Transcribe Date/Time: Dec 29 2024 10:43A Dictated by : CLAUDETTE SANTILLAN MD This examination was interpreted and the report reviewed and electronically signed by: CLAUDETTE SANTILLAN MD on Dec 29 2024 10:45AM EST [facility] Radiology Study observation (narrative) [facility] XR Chest PA and LateralOrder ed By: Ccf Provider on 12-29-2024 [facility] Bacteria Ur Culton Bacteria identified Cx Nom (U) ORGANISM ID: 1 10,000 -<50,000 CFU/ml Normal urogenital len Normal [facility] Comment on above: Performed By: #### 6 30-4 ####[facility] LABCLIA [id number] [place] [address] [place] Urinalysis complete panel (U )on 12-12-2024 Bacteria LM.HPF (Urine sed) [#/Area] Negative Normal Negative [facility] Comment on above: Order Comment: Speci men Type: URINE SPECIMENOrdering Facility: [facility] Address: [address] [place] [address] Performed By: #### 2 4356-8 ####[facility] LABIA [id number] [place] [address] [place] Bilirubin Ql (U) 1+ Abnormal Negative [facility] Comment on above: Order Comment: Speci men Type: URINE SPECIMENOrdering Facility: [facility] Address: [address] [place] [address] Result Comment: Sugg est correlation with clinical findings and serum bilirubin if clinically indicated. Performed By: #### 2 4356-8 ####[facility] LABCLIA [id number] [address] [place] Clarity (Unsp spec) Clear Normal Clear [facility] Comment on above: Order Comment: Speci men Type: URINE SPECIMENOrdering Facility: [facility] Address: [address] [place] [address] Performed By: #### 2 4356-8 ####[facility] LABCLIA [id number] [place] [address] [place] Color (U) Dark Yellow Abnormal Yellow [facility] Comment on above: Order Comment: Speci men Type: URINE SPECIMENOrdering Facility: [facility] Address: [address] [place] [address] Performed By: #### 2 4356-8 ####[facility] LABCLIA [id number] [address], [place] [address] [place] Epithelial cells LM.HPF (Urine sed) [#/Area] Few Normal [facility] Comment on above: Order Comment: Speci men Type: URINE SPECIMENOrdering Facility: [facility] Address: [address] [place] [address] Performed By: #### 2 4356-8 ####[facility] LABCLIA [id number] [address] [place] Glucose Test strip (U) [Mass/Vol] Negative Normal Negative [facility] Comment on above: Order Comment: Speci men Type: URINE SPECIMENOrdering Facility: [facility] Address: [address] [place] [address] Performed By: #### 2 4356-8 ####[facility] LABCLIA [id number] [place] [address] [place] Hemoglobin Ql (U) Negative Normal Negative [facility] Comment on above: Order Comment: Speci men Type: URINE SPECIMENOrdering Facility: [facility] Address: [address] [place] [address] Performed By: #### 2 4356-8 ####[facility] LABCLIA [id number] [address], [facility] [place] Hyaline casts (Urine sed) [#/Area] 0 /[LPF] Normal 0 /LPF [facility] Comment on above: Order Comment: Speci men Type: URINE SPECIMENOrdering Facility: [facility] Address: [address] [place] [address] Performed By: #### 2 4356-8 ####[facility] LABCLIA [id number] [address] [place] [address] [place] Ketones Ql (U) Trace Abnormal Negative [facility] Comment on above: Order Comment: Speci men Type: URINE SPECIMENOrdering Facility: [facility] Address: [address] [place] [address] Performed By: #### 2 4356-8 ####[facility] LABCLIA [id number] [place] [address] [place] Leukocyte esterase Test strip Ql (U) Negative Normal Negative [facility] Comment on above: Order Comment: Speci men Type: URINE SPECIMENOrdering Facility: [facility] Address: [address] [place] [address] Performed By: #### 2 4356-8 ####[facility] LABCLIA [id number] [address], [facility] [place] Nitrite Ql (U) Negative Normal Negative [facility] Comment on above: Order Comment: Speci men Type: URINE SPECIMENOrdering Facility: [facility] Address: [address] [place] [address] Performed By: #### 2 4356-8 ####[facility] LABCLIA [id number] [address], [facility] [place] pH (U) 5.0 [pH] Normal 5.0-8.0 [facility] Comment on above: Order Comment: Speci men Type: URINE SPECIMENOrdering Facility: [facility] Address: [address] [place] [address] Performed By: #### 2 4356-8 ####[facility] LABCLIA [id number] [address], [facility] [place] Protein (U) [Mass/Vol] Trace Abnormal Negative [facility] Comment on above: Order Comment: Speci men Type: URINE SPECIMENOrdering Facility: [facility] Address: [address] [place] [address] Performed By: #### 2 4356-8 ####[facility] LABIA [id number] [place] [address] [place] RBC LM.HPF (Urine sed) [#/Area] 0-2 /HPF Normal 0-2 /HPF [facility] Comment on above: Order Comment: Speci men Type: URINE SPECIMENOrdering Facility: [facility] Address: [address] [place] [address] Performed By: #### 2 4356-8 ####[facility] [id number] [place] [address] [place] Specific gravity (U) [Rel density] 1.022 Normal 1.005-1.03 0 [facility] Comment on above: Order Comment: Speci men Type: URINE SPECIMENOrdering Facility: [facility] Address: [address] [place] [address] Performed By: #### 2 4356-8 ####[facility] LABIA [id number] [address] [place] Urobilinogen Ql (U) 0.2 EU/dL Normal 0.2-1.0 EU/dL [facility] Comment on above: Order Comment: Speci men Type: URINE SPECIMENOrdering Facility: [facility] Address: [address] [place] [address] Performed By: #### 2 4356-8 ####[facility] LABIA [id number] [place] [address] [place] WBC LM.HPF (Urine sed) [#/Area] 0-5 /HPF Normal 0-5 /HPF [facility] Comment on above: Order Comment: Speci men Type: URINE SPECIMENOrdering Facility: [facility] Address: [address] [place] [address] Performed By: #### 2 4356-8 ####[facility] LABCLIA [id number] [place] [address] [place] CBC W Auto Differential pane l (Bld)on 12-11-2024 Basophils (Bld) [#/Vol] 10*3/uL Normal <0.11 [facility] Comment on above: Order Comment: Speci men Type: BLOOD SPECIMENOrdering Facility: [facility] Address: [address] [place] [address] Performed By: #### 5 7021-8 ####[facility] LABCLIA [id number] [address], [place] [address] [place] Basophils/100 WBC (Bld) 0.3 % Normal [facility] Comment on above: Order Comment: Speci men Type: BLOOD SPECIMENOrdering Facility: [facility] Address: [address] [place] [address] Performed By: #### 5 7021-8 ####[facility] LABCLIA [id number] [place] [address] [place] Differential cell count method Nom (Bld) Auto Normal [facility] Comment on above: Order Comment: Speci men Type: BLOOD SPECIMENOrdering Facility: [facility] Address: [address] [place] [address] Performed By: #### 5 7021-8 ####[facility] LABCLIA [id number] [address], [facility] [place] Eosinophils (Bld) [#/Vol] 10*3/uL Normal <0.46 [facility] Comment on above: Order Comment: Speci men Type: BLOOD SPECIMENOrdering Facility: [facility] Address: [address] [place] [address] Performed By: #### 5 7021-8 ####[facility] LABCLIA [id number] [address] [place] [address] [place] Eosinophils/100 WBC (Bld) 0.0 % Normal [facility] Comment on above: Order Comment: Speci men Type: BLOOD SPECIMENOrdering Facility: [facility] Address: [address] [place] [address] Performed By: #### 5 7021-8 ####[facility] LABCLIA [id number] [address], [place] [address] [place] Erythrocyte distribution width (RBC) [Ratio] 12.8 % Normal 11.5-15.0 [facility] Comment on above: Order Comment: Speci men Type: BLOOD SPECIMENOrdering Facility: [facility] Address: [address] [place] [address] Performed By: #### 5 7021-8 ####[facility] LABCLIA [id number] [address], [place] [address] [place] Hematocrit (Bld) [Volume fraction] 42.3 % Normal 36.0-46.0 [facility] Comment on above: Order Comment: Speci men Type: BLOOD SPECIMENOrdering Facility: [facility] Address: [address] [place] [address] Performed By: #### 5 7021-8 ####[facility] LABCLIA [id number] [address], [facility] [place] Hemoglobin (Bld) [Mass/Vol] 13.3 g/dL Normal 11.5-15.5 [facility] Comment on above: Order Comment: Speci men Type: BLOOD SPECIMENOrdering Facility: [facility] Address: [address] [place] [address] Performed By: #### 5 7021-8 ####[facility] LABCLIA [id number] [address], [facility] [place] Immature granulocytes (Bld) [#/Vol] 10*3/uL Normal <0.10 [facility] Comment on above: Order Comment: Speci men Type: BLOOD SPECIMENOrdering Facility: [facility] Address: [address] [place] [address] Performed By: #### 5 7021-8 ####[facility] LABCLIA [id number] [place] [address] [place] Immature granulocytes/100 WBC (Bld) 0.1 % Normal [facility] Comment on above: Order Comment: Speci men Type: BLOOD SPECIMENOrdering Facility: [facility] Address: [address] [place] [address] Performed By: #### 5 7021-8 ####[facility] LABCLIA [id number] [place] [address] [place] Lymphocytes (Bld) [#/Vol] 2.98 10*3/uL Normal 1.00-4.00 [facility] Comment on above: Order Comment: Speci men Type: BLOOD SPECIMENOrdering Facility: [facility] Address: [address] [place] [address] Performed By: #### 5 7021-8 ####[facility] LABCLIA [id number] [place] [address] [place] Lymphocytes/100 WBC (Bld) 44.4 % Normal [facility] Comment on above: Order Comment: Speci men Type: BLOOD SPECIMENOrdering Facility: [facility] Address: [address] [place] [address] Performed By: #### 5 7021-8 ####[facility] LABCLIA [id number] [place] [id number] [place] MCH (RBC) [Entitic mass] 30.9 pg Normal 26.0-34.0 [facility] Comment on above: Order Comment: Speci men Type: BLOOD SPECIMENOrdering Facility: [facility] Address: [address] [place] [address] Performed By: #### 5 7021-8 ####[facility] LABCLIA [id number] [place] [address] [place] MCHC (RBC) [Mass/Vol] 31.4 g/dL Normal 30.5-36.0 [facility] Comment on above: Order Comment: Speci men Type: BLOOD SPECIMENOrdering Facility: [facility] Address: [address] [place] [address] Performed By: #### 5 7021-8 ####[facility] LABCLIA [id number] [place] [address] [place] MCV (RBC) [Entitic vol] 98.4 fL Normal 80.0-100.0 [facility] Comment on above: Order Comment: Speci men Type: BLOOD SPECIMENOrdering Facility: [facility] Address: [address] [place] [address] Performed By: #### 5 7021-8 ####[facility] LABCLIA [id number] [place] [address] [place] Monocytes (Bld) [#/Vol] 1.20 10*3/uL High <0.87 [facility] Comment on above: Order Comment: Speci men Type: BLOOD SPECIMENOrdering Facility: [facility] Address: [address] [place] [address] Performed By: #### 5 7021-8 ####[facility] LABIA [id number] [place] [address] [place] Monocytes/100 WBC (Bld) 17.9 % Normal [facility] Comment on above: Order Comment: Speci men Type: BLOOD SPECIMENOrdering Facility: [facility] Address: [address] [place] [address] Performed By: #### 5 7021-8 ####[facility] LABCLIA [id number] [place] [id number] [place] Neutrophils (Bld) [#/Vol] 2.50 10*3/uL Normal 1.45-7.50 [facility] Comment on above: Order Comment: Speci men Type: BLOOD SPECIMENOrdering Facility: [facility] Address: [address] [place] [address] Performed By: #### 5 7021-8 ####[facility] LABCLIA [id number] [place] [address] [place] Neutrophils/100 WBC (Bld) 37.3 % Normal [facility] Comment on above: Order Comment: Speci men Type: BLOOD SPECIMENOrdering Facility: [facility] Address: [address] [place] [address] Performed By: #### 5 7021-8 ####[facility] LABCLIA [id number] [place] [address] [place] Nucleated RBC (Bld) [#/Vol] 10*3/uL Normal <0.01 [facility] Comment on above: Order Comment: Speci men Type: BLOOD SPECIMENOrdering Facility: [facility] Address: [address] [place] [address] Performed By: #### 5 7021-8 ####[facility] LABCLIA [id number] [place] [address] [place] Nucleated RBC/100 WBC (Bld) [Ratio] 0.0 /100 WBC Normal [facility] Comment on above: Order Comment: Speci men Type: BLOOD SPECIMENOrdering Facility: [facility] Address: [address] [place] [address] Performed By: #### 5 7021-8 ####[facility] LABCLIA [id number] [place] [id number] [place] Platelet mean volume (Bld) [Entitic vol] Normal [facility] Comment on above: Order Comment: Speci men Type: BLOOD SPECIMENOrdering Facility: [facility] Address: [address] [place] [address] Result Comment: Unab le to Report. Performed By: #### 5 7021-8 ####[facility] LABCLIA [id number] [place] [address] [place] Platelets (Bld) [#/Vol] Normal [facility] Comment on above: Order Comment: Speci men Type: BLOOD SPECIMENOrdering Facility: [facility] Address: [address] [place] [address] Result Comment: Plat elet count confirmed by manual review of peripheral blood smear. No clot detected.Results checked and verified.Platelets Clumped Estimate Low. Performed By: #### 5 7021-8 ####[facility] [id number] [place] [address] [place] RBC (Bld) [#/Vol] 4.30 10*6/uL Normal 3.90-5.[address] [facility] Comment on above: Order Comment: Speci men Type: BLOOD SPECIMENOrdering Facility: [facility] Address: [address] [place] [address] Performed By: #### 5 7021-8 ####[facility] [id number] [place] [address] [place] WBC (Bld) [#/Vol] 6.71 10*3/uL Normal 3.70-11.[address] [facility] Comment on above: Order Comment: Speci men Type: BLOOD SPECIMENOrdering Facility: [facility] Address: [address] [place] [address] Performed By: #### 5 7021-8 ####[facility] [id number] [place] [id number] [place] CNOVon 12-11-2024 CNOV Office Visit (FAMPWS ) KRYSTYNA KHANNA ([id number]) 1935 F Date Time Provider Department 12/11/24 2:00 PM RUFINO ERICKSON During your visit today, we recorded the following information about you: Pulse Respiration Blood pressure Weight 68/minute 16/minute 112/60 69.4 kg Rufino Erickson MD 12/11/2024 3:11 PM Signed Chief Complaint Patient presents with: Fall: frequent Urinary Frequency HPI Krystyna Khanna is a 89 year old female who presents here today for an acute visit. Patient scheduled same day and spoke with Nurse Triage regarding increased falling and urinary frequency. Per Sons Espinoza and lani patient having moderate weakness, falls, and urinary frequency. Patient has had two falls in the past week. Does have a walker, but she fell and knocked over the walker about 1 week ago. Fell yesterday in the middle of the night when getting up out of bed. 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 Patient lives with Son, Espinoza. Was previously doing PT, post CVA. Has not had therapy since July to August. Feels her legs/knee are weaker. Son states that she urinates frequently. Patient states when she goes to the bathroom she feels she has to have BM. Takes Imodium for BM's. Son states that she can go to the bathroom 3 x per hour. Does wear pads and goes through them frequently. Has urgency and incontinence. Mouth feels very dry all the time and is drinking a lot of water, but she drinks a lot of water. Krystyna Khanna is a 89-year-old female, with a history of CVA, presenting with multiple falls, generalized weakness, and urinary incontinence. She is accompanied by her two sons, who are providing additional history. Krystyna reports multiple falls recently, with her son noting that she has been demario to avoid serious injury. She also reports feeling sort of weak today, but denies dizziness. She has a history of CVA, with residual weakness on the affected side (left). Her son notes that she dragged her leg a lot after the stroke, but improved with therapy. She also reports frequent urinary incontinence, stating that she feels an urge to defecate instead of urinate. She notes that she urinates when she gets to the bathroom, but sometimes loses urine before getting there. She has been using a lot of pads. She denies overflow incontinence. Krystyna also reports difficulty sleeping, stating that she worries about crazy stuff. She has been taking melatonin 10 mg, but it has not been effective. She also reports dry mouth at night, but not during the day. She has been taking a lot of Tylenol for headaches, which have been occurring daily. She takes 2 tablets of 500 mg every 6 hours, up to 4 times a day. She denies taking more than 8 tablets a day. She denies taking it out of habit, stating that she takes it for headaches. Krystyna has a history of low blood pressure, and was taken off her antihypertensive medication about a month ago. Her blood pressure was 120/80 mmHg last Wednesday. She denies feeling dizzy when coming into the office today. She also reports dry skin. Past medical history, appointments, medications, allergies reviewed. 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 11/30/2022 Dementia without behavioral disturbance (HCC) 05/30/2024 Elevated hemoglobin A1c 11/08/2017 Encounter for Medicare annual wellness exam 09/25/2020 Medical B eligibilty date 02/18/2000 Date of last exam 10/25/2020 Hepatitis thinks B History of congestive heart failure History of CVA (cerebrovascular accident) 04/23/2024 04/19/2024: Rt frontoparietal, Lt parietal History of heart attack Hypertension, essential 11/08/2017 Left hemiparesis (HCC) 05/30/2024 Obesity, Class II, BMI 35-39.9 11/08/2017 Osteoarthritis Osteopenia, senile 09/25/2020 Primary insomnia 12/11/2024 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 No further w/u needed and ok to stay on Xarelto RBBB 09/27/2024 Vitreous hemorrhage, right eye (HCC) 09/27/2024 Previous Surgical History PAST SURGICAL HISTORY Procedure Laterality Date 2D ECHO (EXEP) 10/28/2020 EF=60%, 1+ TImod alvarez dysf ARTHRP KNE CONDYLEANDPLATU MEDIALANDLAT COMPARTMENTS Left 11/19/2017 Knee replacement, total PAST SURGICAL HISTORY OF 2004 right knee replacement REMV CATARACT EXTRACAP,INSERT LENS Bilateral REMV CATARACT EXTRACAP,INSERT LENS Right 12/05/2024 REVISION OF UPPER EYELID Bilateral 11/21/2021 TUBAL LIGATION Family History FAMILY HISTORY Problem Relation Age of Onset Heart Mother Heart Father 59 heart trouble Hypertension Father Heart Sister Etelvina (more content not included)... Normal [facility] Comprehensive metabolic 2000 panelon 12-11-2024 Albumin [Mass/Vol] 4.4 g/dL Normal 3.9-4.9 [facility] Comment on above: Order Comment: Speci men Type: BLOOD SPECIMENOrdering Facility: [facility] Address: [address] [place] [address] Performed By: #### 3 016-3, ####[facility] LABCLIA [id number] [place] [address] [place] ALP [Catalytic activity/Vol] 86 U/L Normal 34-123 [facility] Comment on above: Order Comment: Speci men Type: BLOOD SPECIMENOrdering Facility: [facility] Address: [address] [place] [address] Performed By: #### 3 016-3, ####[facility] LABIA [id number] [place] [address] [place] ALT [Catalytic activity/Vol] 9 U/L Normal 7-38 [facility] Comment on above: Order Comment: Speci men Type: BLOOD SPECIMENOrdering Facility: [facility] Address: [address] [place] [address] Performed By: #### 3 016-3, ####[facility] LABCLIA [id number] [place] [id number] [place] Anion gap [Moles/Vol] 13 mmol/L Normal 8-15 [facility] Comment on above: Order Comment: Speci men Type: BLOOD SPECIMENOrdering Facility: [facility] Address: [address] [place], [place] [address] Performed By: #### 3 016-3, ####[facility] LABCLIA [id number] [address] [address] [place] AST [Catalytic activity/Vol] 28 U/L Normal 13-35 [facility] Comment on above: Order Comment: Speci men Type: BLOOD SPECIMENOrdering Facility: [facility] Address: [address] [place] [address] Performed By: #### 3 -3, ####[facility] LABCLIA [id number] [place] [id number] [place] Bilirubin [Mass/Vol] 0.9 mg/dL Normal 0.2-1.3 [facility] Comment on above: Order Comment: Speci men Type: BLOOD SPECIMENOrdering Facility: [facility] Address: [address] [place] [address] Performed By: #### 3 -3, ####[facility] LABCLIA [id number] [place] [address] [place] Calcium [Mass/Vol] 9.6 mg/dL Normal 8.5-10.2 [facility] Comment on above: Order Comment: Speci men Type: BLOOD SPECIMENOrdering Facility: [facility] Address: [address] [place], [place] [address] Performed By: #### 3 016-3, ####[facility] LABIA [id number] [place] [id number] [place] Chloride [Moles/Vol] 99 mmol/L Normal 98-107 [facility] Comment on above: Order Comment: Speci men Type: BLOOD SPECIMENOrdering Facility: [facility] Address: [address] [place], [place] [address] Performed By: #### 3 016-3, 74582-7 ####[facility] LABCLIA [id number] [address] [address] [place] CO2 [Moles/Vol] 27 mmol/L Normal 22-30 [facility] Comment on above: Order Comment: Speci men Type: BLOOD SPECIMENOrdering Facility: [facility] Address: [address] [place] [address] Performed By: #### 3 016-3, 40873-3 ####[facility] LABIA [id number] [place] [id number] [place] Creatinine [Mass/Vol] 0.95 mg/dL Normal 0.58-0.96 [facility] Comment on above: Order Comment: Speci men Type: BLOOD SPECIMENOrdering Facility: [facility] Address: [address] [place] [address] Performed By: #### 3 016-3, 40329-1 ####[facility] [id number] [place] [id number] [place] eGFRcr SerPlBld CKD-EPI 2020 57 mL/min/1.73m??? Low >=60 [facility] Comment on above: Order Comment: Speci men Type: BLOOD SPECIMENOrdering Facility: [facility] Address: [address] [place] [address] Result Comment: Nichelle mated Glomerular Filtration Rate (eGFR) is calculated using the 2020 CKD-EPI creatinine equation. This equation utilizes serum creatinine, sex, and age as parameters. The creatinine assay has traceable calibration to isotope dilution-mass spectrometry. Refer to KDIGO guidelines for clinical interpretation. In patients with unstable renal function, e.g. those with acute kidney injury, the eGFR may not accurately reflect actual GFR. Performed By: #### 3 016-3, 95399-9 ####[facility] LABIA [id number] [address] [address] [place] Glucose [Mass/Vol] 116 mg/dL High 74-99 [facility] Comment on above: Order Comment: Speci men Type: BLOOD SPECIMENOrdering Facility: [facility] Address: [address] [place] [address] Result Comment: The [place] Diabetes Association (ADA) provides guidance for cutoff values for fasting glucose and random glucose. The ADA defines fasting as no caloric intake for at least 8 hours. Fasting plasma glucose results between 100 to 125 mg/dL indicate increased risk for diabetes (prediabetes). Fasting plasma glucose results greater than or equal to 126 mg/dL meet the criteria for diagnosis of diabetes. In the absence of unequivocal hyperglycemia, results should be confirmed by repeat testing. In a patient with classic symptoms of hyperglycemia or hyperglycemic crisis, random plasma glucose results greater than or equal to 200 mg/dL meet the criteria for diagnosis of diabetes. Reference: Standards of Medical Care in Diabetes 2016, [employer] Diabetes Association. Diabetes Care. 2016.39(Suppl 1). Performed By: #### 3 016-3, ####[facility] LABCLIA [id number] [place] [address] [place] Potassium [Moles/Vol] 4.0 mmol/L Normal 3.7-5.1 [facility] Comment on above: Order Comment: Speci men Type: BLOOD SPECIMENOrdering Facility: [facility] Address: [address] [place] [address] Performed By: #### 3 016-3, ####[facility] LABIA [id number] [place] [address] [place] Protein [Mass/Vol] 7.3 g/dL Normal 6.3-8.0 [facility] Comment on above: Order Comment: Speci men Type: BLOOD SPECIMENOrdering Facility: [facility] Address: [address] [place] [address] Performed By: #### 3 3, ####[facility] LABCLIA [id number] [place] [id number] [place] Sodium [Moles/Vol] 139 mmol/L Normal 136-144 [facility] Comment on above: Order Comment: Speci men Type: BLOOD SPECIMENOrdering Facility: [facility] Address: [address] [place] [address] Performed By: #### 3 016-3, 01833-1 ####[facility] LABCLIA [id number] [place] [id number] [place] Urea nitrogen [Mass/Vol] 16 mg/dL Normal 7-21 [facility] Comment on above: Order Comment: Speci men Type: BLOOD SPECIMENOrdering Facility: [facility] Address: [address] [place] [address] Performed By: #### 3 016-3, 74495-6 ####[facility] LABIA [id number] [place] [id number] [place] TSH SerPl-aCncon 12-11-2024 TSH Qn 2.670 m[IU]/L Normal 0.270-4.20 0 [facility] Comment on above: Order Comment: Speci men Type: BLOOD SPECIMENOrdering Facility: [facility] Address: [address] [place] [address] Performed By: #### 3 016-3, 14686-9 ####[facility] LABIA [id number] [place] [address] [place] Cardiology Visit Reporton Cardiology Visit Report Normal [facility] Neurology Visit Reporton Neurology Visit Report Normal [facility] XR RIBS 2V AP/OBL LTon 11-03 XR RIBS 2V AP/OBL LT * * *Final Report* * * DATE OF EXAM: Nov 03 2024 10:48AM WOX 5582 - XR RIBS 2V AP/OBL LT / PROCEDURE REASON: Open fracture of one rib of left side with routine healing, subsequent encounter * * * * Physician Interpretation * * * * PROCEDURE: Left RIBS INDICATION: Open fracture of one rib of left side with routine healing, subsequent encounter .Pt. states 1 month follow up on posterior Lt rib fracture after fall. TECHNIQUE: XR RIBS 2V AP/OBL LT COMPARISON: 10/07/2024 FINDINGS/ IMPRESSION: Stable minimally displaced left 8th rib fracture in the midaxillary line with evidence for mild interval healing. No pneumothorax or pleural effusion. This was previously counted as the 7th rib but I believe it is the 8th rib. No new fracture. IMPRESSION: Stable, healing left 8th rib fracture. [employer] Teacher'S Aide: BEBETO Transcribe Date/Time: Nov 10 2024 1:20P Dictated by : JASON ALCARAZ MD This examination was interpreted and the report reviewed and electronically signed by: JASON ALCARAZ MD on Nov 10 2024 1:21PM EST [id number] Normal [facility] Culture, Blood (WB)on 2024 CUB Blood cultures x2, f rom two different sites No growth in 5 days. Normal [facility] Comment on above: Performed By: #### L 100.0100, L501.4021, L300.4310, L500.4050, L503.6005, M200.1000, L300.3900 ####[facility] [address] [place], [place], [address] Cardiology Visit Reporton Cardiology Visit Report Normal [facility] Urine Cultureon 10-24-2024 URC Culture exhibits no growth. Normal [facility] Comment on above: Performed By: #### L 400.0001, M100.2200, M100.678 ####[facility] [address] [place], [address] 12 Lead EKGon 10-23-2024 12 Lead EKG Normal [facility] Absolute lymphocyte countOrd ered By: Mcihael Sagastume on 10-23-2024 Lymphocytes Auto (Unsp spec) [#/Vol] 1.28 10*3/uL 0.83-4.51 [facility] Absolute neutrophil countOrd ered By: Michael Sagastume on 10-23-2024 Neutrophils (Bld) [#/Vol] 6.7 10*3/uL 2.0-7.7 [facility] Activated partial thrombopla stin time (aPTT) in platelet poor plasma by coagulation aOrdered By: Michael Sagastume on 10-23-2024 aPTT Coag (PPP) [Time] 42.8 s High 24.1-36.2 [facility] Anion gap in Serum or Plasma Ordered By: Michael Sagastume on 10-23-2024 Anion gap [Moles/Vol] 11 mmol/L 5-15 [facility] Automated lymphocyte count a s percentage of total leukocytesOrdered By: Michael Sagastume on 10-23-2024 Lymphocytes/100 WBC Auto (Unsp spec) 12.1 % Low 19-41 [facility] BUN/creatinine ratioOrdered By: Michael Sagastume on 10-23-2024 Urea nitrogen/Creatinine [Mass ratio] 15.8 mg/mg 10-20 [facility] Basophil percentageOrdered B y: Michael Sagastume on 10-23-2024 Basophils/100 WBC (Bld) 0.1 % 0-1 [facility] Bedside Glucoseon 10-23-2024 FINGERSTICK GLU 144 mg/dL High 74-106 [facility] Comment on above: Result Comment: [facility] PATIENT CARE PER NURSING PROTOCOL Performed By: #### L 501.080 ####[facility] [address] [place], [address] Bilirubin Test strip Ql (U)O rdered By: Michael Sagastume on 10-23-2024 Bilirubin Ql (U) Negative Negative [facility] Bilirubin, totalOrdered By: Michael Sagastume on 10-23-2024 Bilirubin [Mass/Vol] 1.15 mg/dL 0.00-1.30 [facility] Blood cultureOrdered By: Rambo Sagastume on 10-23-2024 Bacteria identified Cx Nom (Bld) No growth in 5 days. [facility] Bacteria identified Cx Nom (Bld) No growth in 5 days. [facility] Blood manual differential co mment interpretation (narrative result)Ordered By: Michael Sagastume on 10-23-2024 Manual differential comment Miles (Bld) [Interp] SCANNED [facility] CBC W/Diff, Automatedon PLT EST MOD DEC Normal ADEQ [facility] Comment on above: Performed By: #### L 100.0100, L501.4021, L300.4310, L500.4050, L503.6005, M200.1000, L300.3900 ####[facility] [address] [place], [address] SMEAR COMMENT SCANNED Normal [facility] Comment on above: Performed By: #### L 100.0100, L501.4021, L300.4310, L500.4050, L503.6005, M200.1000, L300.3900 ####[facility] [address] [place], [address] Carbon dioxide, total [Moles /volume] in Central venous bloodOrdered By: Michael Sagastume on 10-23-2024 CO2 [Moles/Vol] 26.4 mmol/L 21.0-32.0 [facility] Chest 1 View (Portable)on Chest 1 View (Portable) Normal [facility] [facility] Chlor[facility] assayOrdered By: Eliecer Sagastume on 10-23-2024 Chloride [Moles/Vol] 99 mmol/L 98-108 [facility] Comprehensive Metabolic Prof ilon 10-23-2024 Albumin [Mass/Vol] 3.0 g/dL Low 3.4-4.8 [facility] Comment on above: Performed By: #### L 100.0100, L501.4021, L300.4310, L500.4050, L503.6005, M200.1000, L300.3900 ####[facility] [address] [place], [address] Albumin/Globulin [Mass ratio] 0.7 {ratio} Low 0.9-2.4 [facility] Comment on above: Performed By: #### L 100.0100, L501.4021, L300.4310, L500.4050, L503.6005, M200.1000, L300.3900 ####[facility] [address] [place], [address] ALK PHOS 86 U/L Normal 35-104 [facility] Comment on above: Performed By: #### L 100.0100, L501.4021, L300.4310, L500.4050, L503.6005, M200.1000, L300.3900 ####[facility] [address] [place], [address] ALT [Catalytic activity/Vol] 6 U/L Normal <=34 [facility] Comment on above: Performed By: #### L 100.0100, L501.4021, L300.4310, L500.4050, L503.6005, M200.1000, L300.3900 ####[facility] [address] [place], [address] AST [Catalytic activity/Vol] 23 U/L Normal <=31 [facility] Comment on above: Performed By: #### L 100.0100, L501.4021, L300.4310, L500.4050, L503.6005, M200.1000, L300.3900 ####[facility] [address] [place], [address] Bilirubin [Mass/Vol] 1.15 mg/dL Normal 0.00-1.30 [facility] Comment on above: Performed By: #### L 100.0100, L501.4021, L300.4310, L500.4050, L503.6005, M200.1000, L300.3900 ####[facility] [address] [place], [address] BUN/CRE 15.8 RATIO Normal 10-20 [facility] Comment on above: Performed By: #### L 100.0100, L501.4021, L300.4310, L500.4050, L503.6005, M200.1000, L300.3900 ####[facility] [address] [place], [address] Calcium [Mass/Vol] 9.2 mg/dL Normal 7.6-11.0 [facility] Comment on above: Performed By: #### L 100.0100, L501.4021, L300.4310, L500.4050, L503.6005, M200.1000, L300.3900 ####[facility] [address] [place], [address] Chloride [Moles/Vol] 99 mmol/L Normal 98-108 [facility] Comment on above: Performed By: #### L 100.0100, L501.4021, L300.4310, L500.4050, L503.6005, M200.1000, L300.3900 ####[facility] [address] [place], [address] CO2 [Moles/Vol] 26.4 mmol/L Normal 21.0-32.0 [facility] Comment on above: Performed By: #### L 100.0100, L501.4021, L300.4310, L500.4050, L503.6005, M200.1000, L300.3900 ####[facility] [address] [place], [address] Creatinine [Mass/Vol] 0.64 mg/dL Low 0.70-1.20 [facility] Comment on above: Performed By: #### L 100.0100, L501.4021, L300.4310, L500.4050, L503.6005, M200.1000, L300.3900 ####[facility] [address] [place], [address] ECRCL 42.46 ml/min Low 50-250 [facility] Comment on above: Performed By: #### L 100.0100, L501.4021, L300.4310, L500.4050, L503.6005, M200.1000, L300.3900 ####[facility] [address] [place], [address] GAP 11 Normal 5-15 [facility] Comment on above: Performed By: #### L 100.0100, L501.4021, L300.4310, L500.4050, L503.6005, M200.1000, L300.3900 ####[facility] [address] [place], [address] GFR/1.73 sq M.predicted among non-blacks MDRD (S/P/Bld) [Vol rate/Area] 84 mL/min/{1.73_m2} Normal >60 [facility] Comment on above: Result Comment: mL/m in/1.73m2 CKD-EPI Creatinine Equation (2020) Performed By: #### L 100.0100, L501.4021, L300.4310, L500.4050, L503.6005, M200.1000, L300.3900 ####[facility] [address] [place], [address] Globulin (S) [Mass/Vol] 4.0 g/dL Normal 2.2-4.2 [facility] Comment on above: Performed By: #### L 100.0100, L501.4021, L300.4310, L500.4050, L503.6005, M200.1000, L300.3900 ####[facility] [address] [place], [address] Glucose [Mass/Vol] 46 mg/dL Low 70-99 [facility] Comment on above: Performed By: #### L 100.0100, L501.4021, L300.4310, L500.4050, L503.6005, M200.1000, L300.3900 ####[facility] [address] [place], [address] Potassium [Moles/Vol] 4.0 mmol/L Normal 3.3-5.1 [facility] Comment on above: Performed By: #### L 100.0100, L501.4021, L300.4310, L500.4050, L503.6005, M200.1000, L300.3900 ####[facility] [address] [place], [place], [address] Sodium [Moles/Vol] 137 mmol/L Normal 133-145 [facility] Comment on above: Performed By: #### L 100.0100, L501.4021, L300.4310, L500.4050, L503.6005, M200.1000, L300.3900 ####[facility] [address] [place], [address] T PROT 7.0 g/dL Normal 5.9-8.4 [facility] Comment on above: Performed By: #### L 100.0100, L501.4021, L300.4310, L500.4050, L503.6005, M200.1000, L300.3900 ####[facility] [address] [place], [address] Urea nitrogen [Mass/Vol] 10 mg/dL Normal 4-19 [facility] Comment on above: Performed By: #### L 100.0100, L501.4021, L300.4310, L500.4050, L503.6005, M200.1000, L300.3900 ####[facility] [address] [place], [place], [id number] Emergency Department Summary on 10-23-2024 Emergency Department Summary Normal [facility] Eosinophil percentageOrdered By: Michael Sagastume on 10-23-2024 Eosinophils/100 WBC (Bld) 0.3 % 0-5 [facility] Erythrocyte distribution wid th ratioOrdered By: Michael Sagastume on 10-23-2024 Erythrocyte distribution width (RBC) [Ratio] 12.3 % 11.6-14.6 [facility] Erythrocyte distribution wid th standard deviationOrdered By: Michael Sagastume on 10-23-2024 Erythrocyte distribution width (RBC) [Ratio] 43.0 fl 35.1-43.9 [facility] Glomerular filtration rate ( GFR) estimation/1.73 sq m using serum, plasma, or whole bOrdered By: Michael Sagastume on 10-23-2024 GFR/1.73 sq M.predicted among non-blacks MDRD (S/P/Bld) [Vol rate/Area] 84 mL/min/{1.73_m2} >60 [facility] Comment on above: mL/min/1.73m2 CKD-EP I Creatinine Equation (2020) [facility] deOrdered By: Michael Sagastume on 10-23-2024 Glucose [Mass/Vol] 144 mg/dL High 74-106 [facility] Comment on above: MANAGEMENT OF PATIEN T CARE PER NURSING PROTOCOL Hematocrit Auto (Bld) [Volum e fraction]Ordered By: Michael Sagastume on 10-23-2024 Hematocrit (Bld) [Volume fraction] 37.9 % 37-47 [facility] Hemoglobin measurementOrdere d By: Michael Sagastume on 10-23-2024 Hemoglobin (Bld) [Mass/Vol] 12.4 g/dL 12.0-15.0 [facility] Immature granulocytes/100 WB C Auto (Bld)Ordered By: Michael Sagastume on 10-23-2024 Immature granulocytes/100 WBC (Bld) 0.400 % 0.0-0.9 [facility] Comment on above: IG% - Immature Granu locytes (promyelocytes, myelocytes and metamyelocytes) > 1% indicates that a LEFT SHIFT is Present. Influenza virus A and B and SARS-CoV-2 (COVID-19) and Respiratory syncytial virus RNAOrdered By: Michael Sagastume on 10-23-2024 SARS-CoV-2 (COVID-19) RNA LEYDA+probe Ql (Unsp spec) [facility] International normalized rat io (INR) calculationOrdered By: Michael Sagastume on 10-23-2024 INR Coag (Bld) [Relative time] 1.3 {INR} [facility] Ketones Test strip Ql (U)Ord ered By: Michael Sagastume on 10-23-2024 Ketones Ql (U) 50 mg/dl High Negative [facility] L499.0042on 10-23-2024 Trop T High Sen 13 ng/L Normal <=14 [facility] Comment on above: Performed By: #### L 499.0042 ####[facility] [address] [place], [address] L499.0043on 10-23-2024 Trop T High Sen Normal <=14 [facility] Comment on above: Result Comment: Canc elled via OM: Order cancelled - Patient discharged Performed By: #### L 499.0043 ####[facility] [address] [place], [address] L501.4021on 10-23-2024 Trop T High Sen 11 ng/L Normal <=14 [facility] Comment on above: Performed By: #### L 100.0100, L501.4021, L300.4310, L500.4050, L503.6005, M200.1000, L300.3900 ####[facility] [address] [place], [address] Laboratory - Chemistry and C hemistry - challengeOrdered By: Michael Sagastume on 10-23-2024 AST [Catalytic activity/Vol] 23 U/L <32 [facility] Lactic Acidon 10-23-2024 Lactate [Moles/Vol] 1.3 mmol/L Normal 0.0-2.0 [facility] Comment on above: Order Comment: Y Performed By: #### L 100.0100, L501.4021, L300.4310, L500.4050, L503.6005, M200.1000, L300.3900 ####[facility] [address] [place], [address] Lactic acid measurementOrder ed By: Michael Sagastume on 10-23-2024 Lactate [Moles/Vol] 1.3 mmol/L 0.0-2.0 [facility] M100.678on 10-23-2024 M100.678 SARS-CoV-2 (COVID 19 ) Negative INFLUENZA A Negative INFLUENZA B Negative RSV PCR Negative Normal [facility] Comment on above: Performed By: #### L 400.0001, M100.2200, M100.678 ####[facility] [address] [place], [address] MCV (mean corpuscular volume ) determinationOrdered By: Michael Sagastume on 10-23-2024 MCV (RBC) [Entitic vol] 95.0 fL 81-99 [facility] Mean corpuscular hemoglobin (MCH) determinationOrdered By: Michael Sagastume on 10-23-2024 MCH (RBC) [Entitic mass] 31.1 pg 27.0-32.0 [facility] Mean corpuscular hemoglobin concentration (MCHC) determinationOrdered By: Michael Sagastume on 10-23-2024 MCHC (RBC) [Mass/Vol] 32.7 g/dL 32-36 [facility] Mean platelet volume determi nationOrdered By: Michael Sagastume on 10-23-2024 Platelet mean volume (Bld) [Entitic vol] 11.5 fL 6.2-12.0 [facility] Microscopic analysis of urin e for red blood cells (RBC)Ordered By: Michael Sagastume on 10-23-2024 Microscopic analysis of urine for red blood cells (RBC) 0-5 SEEN /hpf 0-5 [facility] Monocyte percentageOrdered B y: Michael Sagastume on 10-23-2024 Monocytes/100 WBC (Bld) 23.6 % High 0-10 [facility] Mucus LM Ql (Urine sed)Order ed By: Michael Sagastume on 10-23-2024 Mucus Ql (Urine sed) 0 SEEN /hpf [facility] Neutrophil percentageOrdered By: Michael Sagastume on 10-23-2024 Neutrophils/100 WBC (Bld) 63.5 % 47-70 [facility] Nitrite Test strip Ql (U)Ord ered By: Michael Sagastume on 10-23-2024 Nitrite Ql (U) Negative Negative [facility] Nucleated red blood cell per centageOrdered By: Michael Sagastume on 10-23-2024 Nucleated RBC/100 WBC (Bld) [Ratio] 0 % 0-5 [facility] Partial Thromboplast Timeon 10-23-2024 aPTT Coag (Bld) [Time] 42.8 s High 24.1-36.2 [facility] Comment on above: Performed By: #### L 100.0100, L501.4021, L300.4310, L500.4050, L503.6005, M200.1000, L300.3900 ####[facility] [address] [facility] [place], [address] Platelet countOrdered By: Eliecer Sagastume on 10-23-2024 Platelets (Bld) [#/Vol] 95 10*3/uL Low 150-450 [facility] Platelet estimateOrdered By: Michael Sagastume on 10-23-2024 Platelets LM Ql (Bld) MOD DEC ADEQ [facility] Potassium measurement (mass/ volume)Ordered By: Michael Sagastume on 10-23-2024 Potassium (Unsp spec) [Mass/Vol] 4.0 mmol/L 3.3-5.1 [facility] Protein Test strip Ql (U)Ord ered By: Michael Sagastume on 10-23-2024 Protein Ql (U) 100 mg/dl High Negative [facility] Prothrombin Time w/INRon INR Coag (PPP) [Relative time] 1.3 {INR} Normal [facility] Comment on above: Performed By: #### L 100.0100, L501.4021, L300.4310, L500.4050, L503.6005, M200.1000, L300.3900 ####[facility] [address] [facility] [place], [address] PT Coag (PPP) [Time] 16.9 s High 11.7-14.9 [facility] Comment on above: Performed By: #### L 100.0100, L501.4021, L300.4310, L500.4050, L503.6005, M200.1000, L300.3900 ####[facility] [address] [place], [address] Prothrombin timeOrdered By: Michael Sagastume on 10-23-2024 PT Coag (PPP) [Time] 16.9 s High 11.7-14.9 [facility] RBC Auto (Bld) [#/Vol]Ordere d By: Michael Sagastume on 10-23-2024 RBC (Bld) [#/Vol] 3.99 10*6/uL Low 4.2-5.4 [facility] Serum creatinine measurement (mass/volume)Ordered By: Michael Sagastume on 10-23-2024 Creatinine [Mass/Vol] 0.64 mg/dL Low 0.70-1.20 [facility] Serum globulin measurementOr dered By: Michael Sagastume on 10-23-2024 Globulin (S) [Mass/Vol] 4.0 g/dL 2.2-4.2 [facility] Serum glucose measurement (m ass/volume)Ordered By: Michael Sagastume on 10-23-2024 Glucose [Mass/Vol] 46 mg/dL Low 70-99 [facility] Serum or plasma alanine belle otransferase (ALT) measurementOrdered By: Michael Sagastume on 10-23-2024 ALT [Catalytic activity/Vol] 6 U/L <35 [facility] Serum or plasma albumin ace urement (mass/volume)Ordered By: Michael Sagastume on 10-23-2024 Albumin [Mass/Vol] 3.0 g/dL Low 3.4-4.8 [facility] Serum or plasma albumin/glob ulin mass ratioOrdered By: Michael Sagastume on 10-23-2024 Albumin/Globulin [Mass ratio] 0.7 {ratio} Low 0.9-2.4 [facility] Serum or plasma alkaline flores sphatase measurementOrdered By: Michael Sagastume on 10-23-2024 ALP [Catalytic activity/Vol] 86 U/L 35-104 [facility] Serum or plasma calcium ace urement (mass/volume)Ordered By: Michael Sagastume on 10-23-2024 Calcium [Mass/Vol] 9.2 mg/dL 7.6-11.0 [facility] Serum or plasma urea nitroge n measurement (mass/volume)Ordered By: Michael Sagastume on 10-23-2024 Urea nitrogen [Mass/Vol] 10 mg/dL 4-19 [facility] Sodium levelOrdered By: Michael Sagastume on 10-23-2024 Sodium [Moles/Vol] 137 mmol/L 133-145 [facility] Squamous epithelial cells de tection in urine sediment by light microscopyOrdered By: Michael Sagastume on 10-23-2024 Epithelial cells.squamous LM Ql (Urine sed) 0-5 SEEN /hpf 5-10 [facility] Total proteinOrdered By: Rambo Sagastume on 10-23-2024 Protein [Mass/Vol] 7.0 g/dL 5.9-8.4 [facility] Troponin T.cardiac [Mass/vol ume] in Serum or Plasma by High sensitivity methodOrdered By: Michael Sagastume on 10-23-2024 Troponin T.cardiac High sensitivity method [Mass/Vol] 13 ng/L <14 [facility] Troponin T.cardiac High sensitivity method [Mass/Vol] 11 ng/L <14 [facility] Urinalysis, Completeon 10-23 EPI,SQUAMOUS 0-5 SEEN Normal 5-10 [facility] Comment on above: Order Comment: MALATHI TER SPECIMEN Performed By: #### L 400.0001, M100.2200, M100.678 ####[facility] [address] [place], [address] RBC 0-5 SEEN Normal 0-5 [facility] Comment on above: Order Comment: MALATHI TER SPECIMEN Performed By: #### L 400.0001, M100.2200, M100.678 ####[facility] [address] [place], [address] WBC 0-5 SEEN Normal 0-5 [facility] Comment on above: Order Comment: MALATHI TER SPECIMEN Performed By: #### L 400.0001, M100.2200, M100.678 ####[facility] [address] [place], [address] BACTERIA 0 SEEN Normal None Seen [facility] Comment on above: Order Comment: MALATHI TER SPECIMEN Performed By: #### L 400.0001, M100.2200, M100.678 ####[facility] [address] [place], [address] Mucus Ql (Urine sed) 0 SEEN Normal [facility] Comment on above: Order Comment: MALATHI TER SPECIMEN Performed By: #### L 400.0001, M100.2200, M100.678 ####[facility] [address] [place], [address] Urine clarityOrdered By: Rambo Sagastume on 10-23-2024 Clarity (U) Clear Clear [facility] Urine color determinationOrd ered By: Michael Sagastume on 10-23-2024 Color (U) Yellow Yellow [facility] Urine cultureOrdered By: Rambo Sagastume on 10-23-2024 Bacteria identified Cx Nom (U) Culture exhibits no growth. [facility] Urine glucose detectionOrder ed By: Michael Sagastume on 10-23-2024 Glucose Ql (U) Normal mg/dl Normal [facility] Urine leukocyte esterase det ection by dipstickOrdered By: Michael Sagastume on 10-23-2024 Leukocyte esterase Test strip Ql (U) Negative Negative [facility] Urine pHOrdered By: Michael preciado on 10-23-2024 pH (U) 6.0 [pH] 5.0 - 8.0 [facility] Urine sediment bacteria coun t by microscopy (number/high power field)Ordered By: Michael Sagastume on 10-23-2024 Bacteria LM.HPF (Urine sed) [#/Area] 0 /[HPF] None Seen [facility] Urine specific gravity measu rementOrdered By: Michael Sagastume on 10-23-2024 Specific gravity (U) [Rel density] 1.020 1.002-1.03 0 [facility] Urine urobilinogen measureme ntOrdered By: Michael Sagastume on 10-23-2024 Urobilinogen Ql (U) 1 mg/dl High Normal [facility] White blood cell (WBC) count Ordered By: Michael Sagastume on 10-23-2024 WBC (Bld) [#/Vol] 10.5 10*3/uL 4.4-11.0 [facility] White blood cell countOrdere d By: Michael Sagastume on 10-23-2024 White blood cell count 0-5 SEEN /hpf 0-5 [facility] CNOVon 10-19-2024 CNOV Office Visit ([facility] ) KRYSTYNA KHANNA ([id number]) 1935 F Date Time Provider Department 10/19/24 10:40 AM LULU STATON During your visit today, we recorded the following information about you: Pulse Blood pressure Weight 61/minute 113/68 67 kg Lulu Staton APRN.[employer] 10/19/2024 11:14 AM Addendum Chief Complaint Patient presents with: Follow Up: Left rib pain HPI Krystyna Khanna is a 89 year old female who presents here today for Above Complaints.. Patient reports rib fracture pain is intermittent, she is taking tylenol and that helps the pain. She is also having a cough that started about a week ago, her nose is running down the back of her throat causing a cough. She is coughing intermittently through the day and it is worse at night. She denies shortness of breath, fevers, chills. She has a history of allergies, and has tried allergy medication OTC but it caused her nose bleed. She is having ongoing itchy dry eyes and is having eye surgery at the end of the month. She is having intermittent urinary leakage at night, wears a diaper and pad and has been having worse leaking recently. She is having trouble sleeping at night, takes melatonin without relief, reports recent of sister and is up worrying through the night. Past medical history, appointments, medications, allergies reviewed. Previous Medical History PAST MEDICAL HISTORY Diagnosis Date Advance directive discussed with patient 11/20/2021 Packets given 11/20/2021 Atrial fibrillation (HCC) Bilateral knee pain 01/09/2010 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 11/30/2022 Elevated hemoglobin A1c 11/08/2017 Encounter for Medicare annual wellness exam 09/25/2020 Medical B eligibilty date 02/18/2000 Date of last exam 10/25/2020 Hepatitis thinks B History of congestive heart failure History of CVA (cerebrovascular accident) 04/23/2024 04/19/2024: Rt frontoparietal, Lt parietal History of heart attack Hypertension, essential 11/08/2017 Left hemiparesis (HCC) 05/30/2024 Obesity, Class II, BMI 35-39.9 11/08/2017 Osteoarthritis Osteopenia, senile 09/25/2020 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 No further w/u needed and ok to stay on Xarelto RBBB 09/27/2024 Previous Surgical History PAST SURGICAL HISTORY Procedure Laterality Date 2D ECHO (EXEP) 10/28/2020 EF=60%, 1+ TImod alvarez dysf ARTHRP KNE CONDYLEANDPLATU MEDIALANDLAT COMPARTMENTS Left 11/19/2017 Knee replacement, total PAST SURGICAL HISTORY OF 2004 right knee replacement REMV CATARACT EXTRACAP,INSERT LENS Bilateral REVISION OF UPPER EYELID Bilateral 11/21/2021 TUBAL LIGATION Family History FAMILY HISTORY Problem Relation Age of Onset Heart Mother Heart Father 59 heart trouble Hypertension Father Heart Sister Breast Cancer Sister Cancer Paternal Grandmother stomach Breast Cancer Maternal Aunt Diabetes Maternal Aunt Diabetes Other cousin Patient Allergies ALLERGIES Allergen Reactions Darvocet A500 [Prop* Unknown Propoxyphene Unknown Sulfa (Sulfonamide * Other: See Comments didn't feel right, nervousness Current Medications Current Outpatient Medications on File Prior to Visit Medication Sig diclofenac (VOLTAREN) 1 % topical gel Apply 2 g to affected area three times a day as needed. atorvastatin (LIPITOR) 40 mg tablet Take 1 tablet by mouth once daily. donepezil (ARICEPT) 10 mg tablet Take 1 tablet by mouth daily at bedtime. metoprolol succinate ER (TOPROL XL) 25 mg 24 hr tablet Take 1 tablet by mouth once daily. apixaban (ELIQUIS) 5 mg tab(s) Take 1 tablet by mouth two times a day. melatonin 3 mg tablet Take 1 tablet by mouth daily at bedtime. benzonatate (TESSALON PERLES) 100 mg capsule Take 2 capsules by mouth three times a day as needed for cough. albuterol HFA (PROVENTIL HFA, VENTOLIN HFA) 90 mcg/actuation inhaler Inhale 2 Puffs as instructed every 4 hours as needed for wheezing/shortness of breath. calcium Carbonate 300 mg, 750mg, (TUMS) 300 mg (750 mg) chewable tablet Take 1 tablet by mouth twice daily. loperamide HCl (IMODIUM) 2 mg tab Take 2 mg by mouth as needed. Cholecalciferol, Vitamin D3, (D3-2000) 50 mcg (2,000 unit) cap Take 1 capsule by mouth once daily. multivitamin tablet Take 1 tablet by mouth once daily. acetaminophen (TYLENOL) 500 mg tablet Take 500 mg by mouth every 6 hours as needed. No current facility-administered medications on file prior to visit. Social History Social History Tobacco Use Smoking status: Never Smokeless tobacco: Never Vaping Use Vaping status: Never Used Substance Use Topics Alcohol use: No Drug use: No Review of Symptoms REVIEW OF SYSTEMS SEE HPI EXAM: BP 113/68 Pulse 61 Wt 67 kg (147 lb 11.3 oz) BMI 30.84 kg/m? General Appearance: Well appearing, alert, in no acute distress, well-hydrated, (more content not included)... Normal [facility] CNOVon 10-07-2024 [facility] HERLINDAKRYSTYNA ([id number]) 1935 F Date Time Provider Department 10/07/24 11:45 AM CRUZ JAMES [facility] During your visit today, we recorded the following information about you: Temperature Pulse Respiration Blood pressure 98.8 degrees 62/minute 20/minute 138/84 Weight 72.2 kg Cruz James, [facility] [employer] 10/07/2024 12:50 PM Signed [facility] Subjective Krystyna Chan Jey is a 89 year old female c/o left rib pain after falling 9 days ago, hurts worse with movement, taking tylenol with minimal relief, walking at baseline, breathing unlabored Patient presents with: left rib pain: X 9 days after a fall The history is provided by the patient. Musculoskeletal Problem This is a new problem. The current episode started 1 to 4 weeks ago. The problem occurs constantly. The problem has been unchanged. Associated symptoms include arthralgias. Pertinent negatives include no abdominal pain, anorexia, change in bowel habit, chest pain, chills, congestion, coughing, diaphoresis, fatigue, fever, headaches, joint swelling, myalgias, nausea, neck pain, numbness, rash, sore throat, swollen glands, urinary symptoms, vertigo, visual change, vomiting or weakness. She has tried acetaminophen for the symptoms. The treatment provided mild relief. Review of Systems Constitutional: Negative for chills, diaphoresis, fatigue and fever. HENT: Negative for congestion and sore throat. Respiratory: Negative for cough and shortness of breath. Cardiovascular: Negative for chest pain. Gastrointestinal: Negative for abdominal pain, anorexia, change in bowel habit, nausea and vomiting. Musculoskeletal: Positive for arthralgias. Negative for joint swelling, myalgias and neck pain. Skin: Negative for rash. Neurological: Negative for vertigo, weakness, numbness and headaches. Objective BP 138/84 Pulse 62 Temp 37.1 ?C (98.8 ?F) (Tympanic) Resp 20 Wt 72.2 kg (159 lb 2.8 oz) SpO2 97% BMI 33.23 kg/m? Physical Exam Vitals and nursing note reviewed. Constitutional: Appearance: Normal appearance. Cardiovascular: Rate and Rhythm: Regular rhythm. Heart sounds: Normal heart sounds. Pulmonary: Effort: Pulmonary effort is normal. Breath sounds: Normal breath sounds. Skin: General: Skin is dry. Neurological: General: No focal deficit present. Mental Status: She is alert. {ASSESSMENT/PLAN: 1. Rib pain on left side - ICD9: 786.50, ICD10: R07.81 Atypical chest pain, symptoms are not consistent with cardiac ischemia due to pleuritic nature of pain and localization of the pain possible etiology include Costochondritis/chest wall pain, musculoskeletal, and rib fracture - Chest X-ray today. My reading: left 7th rib fracture. Discussed my reading with patient. Radiologist report to follow. 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 - Patient education provided today - Discussed with patient medications that are indicated and how to use the medications and what the potential side effects are. - Warning signs of worsening condition explained to patient -Instructed to follow up with PCP if symptoms not improving in next 2-3 days - Patient left in stable condition after questions answered and patient verbalizes understanding - Instructed to go to Emergency Department right away with any severe worsening chest pain, shortness of breath, headache, dizziness, weakness, numbness,leg swelling , tingling, problems walking or speaking or any other concerning symptoms History and Record Review Clinical information obtained from an independent historian. History obtained from or confirmed by: family member. External record(s) reviewed: prior outpatient record. Differential Diagnoses - rib fracture is more likely for the following reason(s): suggested by HANDP and consistent with imaging Disposition The patient was discharged. OTC Medications were advised: Cruz James APRN.CNP 10/07/2024 12:34 PM Signed ASSESSMENT/PLAN: 1. Rib pain on left side - ICD9: 786.50, ICD10: R07.81 Atypical chest pain, symptoms are not consistent with cardiac ischemia due to pleuritic nature of pain and localization of the pain possible etiology include Costochondritis/chest wall pain, musculoskeletal, and rib fracture - Chest X-ray today. My reading: left 7th rib fracture. Discussed my reading with patient. Radiologist report to follow. 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 [facility] XR RIB/CHST 3V AP RIB/OBL/CH ST Shailesh 10-07-2024 XR RIB/CHST 3V AP RIB/OBL/CHST L * * *Final Report* * * DATE OF EXAM: Oct 07 2024 12:10PM WOX [id number] - XR RIB/CHST 3V AP RIB/OBL/CHST L / PROCEDURE REASON: Rib pain on left side * * * * Physician Interpretation * * * * PROCEDURE: Left RIBS with chest INDICATION: Rib pain on left side .posterior left sided rib pain. Pt fell 5 days ago. TECHNIQUE: XR RIB/CHST 3V AP RIB/OBL/CHST L COMPARISON: 07/12/2024 FINDINGS: Stable cardiomediastinal silhouette. No acute consolidation, pleural effusion or pneumothorax. There is a minimally displaced 7th rib fracture in the mid axillary line. IMPRESSION: Left 7th rib fracture [employer] Teacher'S Aide: PSCB Transcribe Date/Time: Oct 07 2024 12:28P Dictated by : JASON ALCARAZ MD This examination was interpreted and the report reviewed and electronically signed by: JASON ALCARAZ MD on Oct 07 2024 12:29PM EST [id number] [facility] XR Ribs - left Views and Janet st PAon 10-07-2024 IMPRESSION: Left 7th rib fracture [employer] Teacher'S Aide: PSCB Transcribe Date/Time: Oct 07 2024 12:28P Dictated by : JASON ALCARAZ MD This examination was interpreted and the report reviewed and electronically signed by: JASON ALCARAZ MD on Oct 07 2024 12:29PM EST DIVISION OF RADIOLOGY * * *Final Report* * * DATE OF EXAM: Oct 07 2024 12:10PM WOX [id number] - XR RIB/CHST 3V AP RIB/OBL/CHST L / PROCEDURE REASON: Rib pain on left side * * * * Physician Interpretation * * * * PROCEDURE: Left RIBS with chest INDICATION: Rib pain on left side .posterior left sided rib pain. Pt fell 5 days ago. TECHNIQUE: XR RIB/CHST 3V AP RIB/OBL/CHST L COMPARISON: 07/12/2024 FINDINGS: Stable cardiomediastinal silhouette. No acute consolidation, pleural effusion or pneumothorax. There is a minimally displaced 7th rib fracture in the mid axillary line. DIVISION OF RADIOLOGY Provider, [facility] - 10/07/2024 * * *Final Report* * * DATE OF EXAM: Oct 07 2024 12:10PM WOX 5243 - XR RIB/CHST 3V AP RIB/OBL/CHST L / PROCEDURE REASON: Rib pain on left side * * * * Physician Interpretation * * * * PROCEDURE: Left RIBS with chest INDICATION: Rib pain on left side .posterior left sided rib pain. Pt fell 5 days ago. TECHNIQUE: XR RIB/CHST 3V AP RIB/OBL/CHST L COMPARISON: 07/12/2024 FINDINGS: Stable cardiomediastinal silhouette. No acute consolidation, pleural effusion or pneumothorax. There is a minimally displaced 7th rib fracture in the mid axillary line. IMPRESSION IMPRESSION: Left 7th rib fracture [employer] Aide: PSCB Transcribe Date/Time: Oct 07 2024 12:28P Dictated by : JASON ALCARAZ MD This examination was interpreted and the report reviewed and electronically signed by: JASON ALCARAZ MD on Oct 07 2024 12:29PM EST [facility] Radiology Study observation (narrative) [facility] XR Ribs - left Views and Janet st PAOrdered By: Ccf Provider on 10-07-2024 [facility] CNPNon 09-29-2024 CNPN Telephone (FAMPWS) KRYSTYNA KHANNA ([id number]) 1935 F Date Time Provider Department 09/29/24 RUFINO ERICKSON During your visit today, we recorded the following information about you: Cecelia Raymond MA 09/29/2024 1:56 PM Signed Pre-op form received from [facility] to be completed. Form completed by PCP. Attached EKG and recent OV notes. Faxed back to [phone]. Cecelia Raymond MA Allergies As of Date: 09/29/2024 Noted Allergy Reaction DARVOCET A500 (PROPOXYPHENE N-APOLINAR*04/26/2012 16 - Unknown PROPOXYPHENE 07/03/2022 16 - Unknown SULFA (SULFONAMIDE ANTIBIOTICS) 04/26/2012 14 - Other: See Comments Comments: didn't feel right, nervousness Date Reviewed: 09/27/2024 Reviewed by: Rufino Erickson MD - Fully Assessed Reason for Visit: Forms [913] Cmt: Pre-Op Prescriptions as of 09/29/2024 - atorvastatin (LIPITOR) 40 mg tablet Take 1 tablet by mouth once daily. - donepezil (ARICEPT) 10 mg tablet Take 1 tablet by mouth daily at bedtime. - metoprolol succinate ER (TOPROL XL) 25 mg 24 hr tablet Take 1 tablet by mouth once daily. - apixaban (ELIQUIS) 5 mg tab(s) Take 1 tablet by mouth two times a day. - melatonin 3 mg tablet Take 1 tablet by mouth daily at bedtime. - benzonatate (TESSALON PERLES) 100 mg capsule Take 2 capsules by mouth three times a day as needed for cough. - albuterol HFA (PROVENTIL HFA, VENTOLIN HFA) 90 mcg/actuation inhaler Inhale 2 Puffs as instructed every 4 hours as needed for wheezing/shortness of breath. - calcium Carbonate 300 mg, 750mg, (TUMS) 300 mg (750 mg) chewable tablet Take 1 tablet by mouth twice daily. - loperamide HCl (IMODIUM) 2 mg tab Take 2 mg by mouth as needed. - Cholecalciferol, Vitamin D3, (D3-2000) 50 mcg (2,000 unit) cap Take 1 capsule by mouth once daily. - multivitamin tablet Take 1 tablet by mouth once daily. - acetaminophen (TYLENOL) 500 mg tablet Take 500 mg by mouth every 6 hours as needed. Problem List As Of Date 09/29/2024 Noted Resolved Bilateral knee pain [M25.561, M25.562] 01/09/2010 Osteoarthritis [M19.90] 11/01/2017 Hypertension, essential [I10] 11/08/2017 Atrial fibrillation (HCC) [I48.91] 11/08/2017 Hepatitis [K75.9] 11/08/2017 Elevated hemoglobin A1c [R73.09] 11/08/2017 Obesity, Class II, BMI 35-39.9 [E66.812] 11/08/2017 Arthritis of knee [M17.10] 11/19/2017 12/23/2017 Primary osteoarthritis of left knee [M17.12] 11/24/2017 12/23/2017 Encounter for Medicare annual wellness exam [Z0*09/25/2020 Osteopenia, senile [M85.80] 09/25/2020 AK (actinic keratosis) [L57.0] 05/19/2021 Medication management [Z79.899] 05/19/2021 Advance directive discussed with patient [Z71.8*11/20/2021 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] 12/10/2021 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 *11/30/2022 History of CVA (cerebrovascular accident) [Z86.*04/23/2024 Thrombocytopenia [D69.6] 05/30/2024 07/05/2024 Left hemiparesis (HCC) [G81.94] 05/30/2024 Dementia without behavioral disturbance (HCC) [*05/30/2024 Power of contract attorney for health care on file [Z78.*06/01/2024 Balance disorder [R26.89] 07/05/2024 RBBB [I45.10] 09/27/2024 Vitreous hemorrhage, right eye (HCC) [H43.11] 09/27/2024 Encounter Status:Closed by CECELIA RAYMOND on 09/29/24 Normal [facility] Basic metabolic 2000 panelon 09-28-2024 Anion gap [Moles/Vol] 11 mmol/L 8 - 15 mmol/L [facility] Calcium [Mass/Vol] 9.3 mg/dL 8.5 - 10. 2 mg/dL [facility] Chloride [Moles/Vol] 100 mmol/L 98 - 10 7 mmol/L [facility] CO2 [Moles/Vol] 29 mmol/L 22 - 30 mmol/L [facility] Creatinine [Mass/Vol] 0.78 mg/dL 0.58 - 0.96 mg/dL [facility] GFR/1.73 sq M.predicted among non-blacks MDRD (S/P/Bld) [Vol rate/Area] 73 mL/min/{1.73_m2} - PINF [facility] Comment on above: Estimated Glomerular Filtration Rate (eGFR) is calculated using the 2020 CKD-EPI creatinine equation. This equation utilizes serum creatinine, sex, and age as parameters. The creatinine assay has traceable calibration to isotope dilution-mass spectrometry. Refer to KDIGO guidelines for clinical interpretation. In patients with unstable renal function, e.g. those with acute kidney injury, the eGFR may not accurately reflect actual GFR. Glucose [Mass/Vol] 113 mg/dL High 74 - 99 mg/dL [facility] Comment on above: The [employer] Diab[employer] s Association (ADA) provides guidance for cutoff values for fasting glucose and random glucose. The ADA defines fasting as no caloric intake for at least 8 hours. Fasting plasma glucose results between 100 to 125 mg/dL indicate increased risk for diabetes (prediabetes). Fasting plasma glucose results greater than or equal to 126 mg/dL meet the criteria for diagnosis of diabetes. In the absence of unequivocal hyperglycemia, results should be confirmed by repeat testing. In a patient with classic symptoms of hyperglycemia or hyperglycemic crisis, random plasma glucose results greater than or equal to 200 mg/dL meet the criteria for diagnosis of diabetes. Reference: Standards of Medical Care in Diabetes 2016, [employer] Diabetes Association. Diabetes Care. 2016.39(Suppl 1). Interpretation and review of laboratory results Abnormal [facility] Potassium [Moles/Vol] 4.1 mmol/L 3.7 - 5.1 mmol/L [facility] Sodium [Moles/Vol] 140 mmol/L 136 - 144 mmol/L [facility] Urea nitrogen [Mass/Vol] 11 mg/dL 7 - 21 mg/dL [facility] CBC W Auto Differential pane l (Bld)on 09-28-2024 Basophils (Bld) [#/Vol] [facility] Basophils/100 WBC (Bld) 0.5 % [facility] Differential cell count method Nom (Bld) Auto [facility] Eosinophils (Bld) [#/Vol] [facility] Eosinophils/100 WBC (Bld) 0 % [facility] Erythrocyte distribution width (RBC) [Ratio] 12.7 % 11.5 - 15.0 % [facility] Hematocrit (Bld) [Volume fraction] 39.1 % 36.0 - 46.0 % [facility] Hemoglobin (Bld) [Mass/Vol] 12.5 g/dL 11.5 - 15.5 g/dL [facility] Immature granulocytes (Bld) [#/Vol] [facility] Immature granulocytes/100 WBC (Bld) 0.3 % [facility] Interpretation and review of laboratory results Abnormal [facility] Lymphocytes (Bld) [#/Vol] 2.12 10*3/uL [facility] Lymphocytes/100 WBC (Bld) 53.5 % [facility] MCH (RBC) [Entitic mass] 31.1 pg 26.0 - 34.0 pg [facility] MCHC (RBC) [Mass/Vol] 32 g/dL 30.5 - 36.0 g/dL [facility] MCV (RBC) [Entitic vol] 97.3 fL 80.0 - 100.0 fL [facility] Monocytes (Bld) [#/Vol] 0.56 10*3/uL NINF [facility] Monocytes/100 WBC (Bld) 14.1 % [facility] Neutrophils (Bld) [#/Vol] 1.25 10*3/uL Low [facility] Neutrophils/100 WBC (Bld) 31.6 % [facility] Nucleated RBC (Bld) [#/Vol] NINF [facility] Nucleated RBC/100 WBC (Bld) [Ratio] 0 % /100 WBC [facility] Platelet mean volume (Bld) [Entitic vol] [facility] Comment on above: Unable to Report. Platelets (Bld) [#/Vol] [facility] Comment on above: No clot detected.Keegan telets Clumped Estimate Low. RBC (Bld) [#/Vol] 4.02 10*6/uL 3.90 - 5.20 m/uL [facility] WBC (Bld) [#/Vol] 3.96 10*3/uL [facility] This is an appended report. These results have been appended to a previously verified report. [facility] Basic metabolic 2000 panelon 09-27-2024 Anion gap [Moles/Vol] 11 mmol/L Normal 8-15 [facility] Comment on above: Order Comment: Speci men Type: BLOOD SPECIMENOrdering Facility: [facility] Address: [address] [place] [address] Performed By: #### 2 4321-2 ####[facility] LABCLIA [id number] [place] [address] [place] Calcium [Mass/Vol] 9.3 mg/dL Normal 8.5-10.2 [facility] Comment on above: Order Comment: Speci men Type: BLOOD SPECIMENOrdering Facility: [facility] Address: [address] [place] [address] Performed By: #### 2 4321-2 ####[facility] LABCLIA [id number] [place] [address] [place] Chloride [Moles/Vol] 100 mmol/L Normal 98-107 [facility] Comment on above: Order Comment: Speci men Type: BLOOD SPECIMENOrdering Facility: [facility] Address: [address] [place], [place] [address] Performed By: #### 2 4321-2 ####[facility] LABCLIA [id number] [address] [address] [place] CO2 [Moles/Vol] 29 mmol/L Normal 22-30 [facility] Comment on above: Order Comment: Speci men Type: BLOOD SPECIMENOrdering Facility: [facility] Address: [address] [place] [address] Performed By: #### 2 4321-2 ####[facility] LABCLIA [id number] [address] [place] [facility] Creatinine [Mass/Vol] 0.78 mg/dL Normal 0.58-0.96 [facility] Comment on above: Order Comment: Speci men Type: BLOOD SPECIMENOrdering Facility: [facility] Address: [address] [place] [address] Performed By: #### 2 4321-2 ####[facility] LABCLIA [id number] [address] Creatinine and Glomerular filtration rate.predicted panel (S/P/Bld) 73 mL/min/1.73m??? Normal >=60 [facility] Comment on above: Order Comment: Speci men Type: BLOOD SPECIMENOrdering Facility: [facility] Address: [address] [place] [address] Result Comment: Nichelle mated Glomerular Filtration Rate (eGFR) is calculated using the 2020 CKD-EPI creatinine equation. This equation utilizes serum creatinine, sex, and age as parameters. The creatinine assay has traceable calibration to isotope dilution-mass spectrometry. Refer to KDIGO guidelines for clinical interpretation. In patients with unstable renal function, e.g. those with acute kidney injury, the eGFR may not accurately reflect actual GFR. Performed By: #### 2 4321-2 ####[facility] LABCLIA [id number] [place] [address] [place] Glucose [Mass/Vol] 113 mg/dL High 74-99 [facility] Comment on above: Order Comment: Speci men Type: BLOOD SPECIMENOrdering Facility: [facility] Address: [address] [place] [address] Result Comment: The [employer] Diabetes Association (ADA) provides guidance for cutoff values for fasting glucose and random glucose. The ADA defines fasting as no caloric intake for at least 8 hours. Fasting plasma glucose results between 100 to 125 mg/dL indicate increased risk for diabetes (prediabetes). Fasting plasma glucose results greater than or equal to 126 mg/dL meet the criteria for diagnosis of diabetes. In the absence of unequivocal hyperglycemia, results should be confirmed by repeat testing. In a patient with classic symptoms of hyperglycemia or hyperglycemic crisis, random plasma glucose results greater than or equal to 200 mg/dL meet the criteria for diagnosis of diabetes. Reference: Standards of Medical Care in Diabetes 2016, [employer] Diabetes Association. Diabetes Care. 2016.39(Suppl 1). Performed By: #### 2 4321-2 ####[facility] LABIA [id number] [place] [address] [place] Potassium [Moles/Vol] 4.1 mmol/L Normal 3.7-5.1 [facility] Comment on above: Order Comment: Speci men Type: BLOOD SPECIMENOrdering Facility: [facility] Address: [address] [place] [address] Performed By: #### 2 4321-2 ####[facility] LABIA [id number] [place] [id number] [place] Sodium [Moles/Vol] 140 mmol/L Normal 136-144 [facility] Comment on above: Order Comment: Speci men Type: BLOOD SPECIMENOrdering Facility: [facility] Address: [address] [place] [address] Performed By: #### 2 4321-2 ####[facility] LABCLIA [id number] [place] [address] [place] Urea nitrogen [Mass/Vol] 11 mg/dL Normal 7-21 [facility] Comment on above: Order Comment: Speci men Type: BLOOD SPECIMENOrdering Facility: [facility] Address: [address] [place] [address] Performed By: #### 2 4321-2 ####[facility] LABCLIA [id number] [place] [address] [place] CBC W Auto Differential pane l (Bld)on 09-27-2024 Basophils (Bld) [#/Vol] 10*3/uL Normal <0.11 [facility] Comment on above: Order Comment: Speci men Type: BLOOD SPECIMENOrdering Facility: [facility] Address: [address] [place] [address] Performed By: #### 5 7021-8 ####[facility] LABCLIA [id number] [place] [address] [place] Basophils/100 WBC (Bld) 0.5 % Normal [facility] Comment on above: Order Comment: Speci men Type: BLOOD SPECIMENOrdering Facility: [facility] Address: [address] [place] [address] Performed By: #### 5 7021-8 ####[facility] LABIA [id number] [place] [address] [place] Differential cell count method Nom (Bld) Auto Normal [facility] Comment on above: Order Comment: Speci men Type: BLOOD SPECIMENOrdering Facility: [facility] Address: [address] [place] [address] Performed By: #### 5 7021-8 ####[facility] LABCLIA [id number] [place] [address] [place] Eosinophils (Bld) [#/Vol] 10*3/uL Normal <0.46 [facility] Comment on above: Order Comment: Speci men Type: BLOOD SPECIMENOrdering Facility: [facility] Address: [address] [place] [address] Performed By: #### 5 7021-8 ####[facility] LABCLIA [id number] [place] [address] [place] Eosinophils/100 WBC (Bld) 0.0 % Normal [facility] Comment on above: Order Comment: Speci men Type: BLOOD SPECIMENOrdering Facility: [facility] Address: [address] [place] [address] Performed By: #### 5 7021-8 ####[facility] LABIA [id number] [place] [address] [place] Erythrocyte distribution width (RBC) [Ratio] 12.7 % Normal 11.5-15.0 [facility] Comment on above: Order Comment: Speci men Type: BLOOD SPECIMENOrdering Facility: [facility] Address: [address] [place] [address] Performed By: #### 5 7021-8 ####[facility] LABIA [id number] [place] [address] [place] Hematocrit (Bld) [Volume fraction] 39.1 % Normal 36.0-46.0 [facility] Comment on above: Order Comment: Speci men Type: BLOOD SPECIMENOrdering Facility: [facility] Address: [address] [place] [address] Performed By: #### 5 7021-8 ####[facility] LABCLIA [id number] [place] [address] [place] Hemoglobin (Bld) [Mass/Vol] 12.5 g/dL Normal 11.5-15.5 [facility] Comment on above: Order Comment: Speci men Type: BLOOD SPECIMENOrdering Facility: [facility] Address: [address] [place] [address] Performed By: #### 5 7021-8 ####[facility] LABCLIA [id number] [address] [place] [address] [place] Immature granulocytes (Bld) [#/Vol] 10*3/uL Normal <0.10 [facility] Comment on above: Order Comment: Speci men Type: BLOOD SPECIMENOrdering Facility: [facility] Address: [address] [place] [address] Performed By: #### 5 7021-8 ####[facility] LABCLIA [id number] [address], [place] [address] [place] Immature granulocytes/100 WBC (Bld) 0.3 % Normal [facility] Comment on above: Order Comment: Speci men Type: BLOOD SPECIMENOrdering Facility: [facility] Address: [address] [place] [address] Performed By: #### 5 7021-8 ####[facility] LABCLIA [id number] [place] [address] [place] Lymphocytes (Bld) [#/Vol] 2.12 10*3/uL Normal 1.00-4.00 [facility] Comment on above: Order Comment: Speci men Type: BLOOD SPECIMENOrdering Facility: [facility] Address: [address] [place] [address] Performed By: #### 5 7021-8 ####[facility] LABCLIA [id number] [address], [place] [address] [place] Lymphocytes/100 WBC (Bld) 53.5 % Normal [facility] Comment on above: Order Comment: Speci men Type: BLOOD SPECIMENOrdering Facility: [facility] Address: [address] [place] [address] Performed By: #### 5 7021-8 ####[facility] LABCLIA [id number] [place] [id number] [place] MCH (RBC) [Entitic mass] 31.1 pg Normal 26.0-34.0 [facility] Comment on above: Order Comment: Speci men Type: BLOOD SPECIMENOrdering Facility: [facility] Address: [address] [place] [address] Performed By: #### 5 7021-8 ####[facility] LABCLIA [id number] [place] [address] [place] MCHC (RBC) [Mass/Vol] 32.0 g/dL Normal 30.5-36.0 [facility] Comment on above: Order Comment: Speci men Type: BLOOD SPECIMENOrdering Facility: [facility] Address: [address] [place] [address] Performed By: #### 5 7021-8 ####[facility] LABCLIA [id number] [place] [address] [place] MCV (RBC) [Entitic vol] 97.3 fL Normal 80.0-100.0 [facility] Comment on above: Order Comment: Speci men Type: BLOOD SPECIMENOrdering Facility: [facility] Address: [address] [place] [address] Performed By: #### 5 7021-8 ####[facility] LABCLIA [id number] [place] [address] [place] Monocytes (Bld) [#/Vol] 0.56 10*3/uL Normal <0.87 [facility] Comment on above: Order Comment: Speci men Type: BLOOD SPECIMENOrdering Facility: [facility] Address: [address] [place] [address] Performed By: #### 5 7021-8 ####[facility] LABCLIA [id number] [place] [address] [place] Monocytes/100 WBC (Bld) 14.1 % Normal [facility] Comment on above: Order Comment: Speci men Type: BLOOD SPECIMENOrdering Facility: [facility] Address: [address] [place] [address] Performed By: #### 5 7021-8 ####[facility] LABCLIA [id number] [address], [place] [address] [place] Neutrophils (Bld) [#/Vol] 1.25 10*3/uL Low 1.45-7.50 [facility] Comment on above: Order Comment: Speci men Type: BLOOD SPECIMENOrdering Facility: [facility] Address: [address] [place] [address] Performed By: #### 5 7021-8 ####[facility] LABCLIA [id number] [place] [address] [place] Neutrophils/100 WBC (Bld) 31.6 % Normal [facility] Comment on above: Order Comment: Speci men Type: BLOOD SPECIMENOrdering Facility: [facility] Address: [address] [place] [address] Performed By: #### 5 7021-8 ####[facility] LABCLIA [id number] [place] [address] [place] Nucleated RBC (Bld) [#/Vol] 10*3/uL Normal <0.01 [facility] Comment on above: Order Comment: Speci men Type: BLOOD SPECIMENOrdering Facility: [facility] Address: [address] [place] [address] Performed By: #### 5 7021-8 ####[facility] LABCLIA [id number] [place] [address] [place] Nucleated RBC/100 WBC (Bld) [Ratio] 0.0 /100 WBC Normal [facility] Comment on above: Order Comment: Speci men Type: BLOOD SPECIMENOrdering Facility: [facility] Address: [address] [place] [address] Performed By: #### 5 7021-8 ####[facility] LABCLIA [id number] [address], [facility] [place] Platelet mean volume (Bld) [Entitic vol] Normal [facility] Comment on above: Order Comment: Speci men Type: BLOOD SPECIMENOrdering Facility: [facility] Address: [address] [place] [address] Result Comment: Unab le to Report. Performed By: #### 5 7021-8 ####[facility] LABIA [id number] [place] [address] [place] Platelets (Bld) [#/Vol] Normal [facility] Comment on above: Order Comment: Speci men Type: BLOOD SPECIMENOrdering Facility: [facility] Address: [address] [place] [address] Result Comment: No c lot detected.Platelets Clumped Estimate Low. Performed By: #### 5 7021-8 ####[facility] [id number] [place] [address] [place] RBC (Bld) [#/Vol] 4.02 10*6/uL Normal 3.90-5.[address] [facility] Comment on above: Order Comment: Speci men Type: BLOOD SPECIMENOrdering Facility: [facility] Address: [address] [place] [address] Performed By: #### 5 7021-8 ####[facility] [id number] [place] [address] [place] WBC (Bld) [#/Vol] 3.96 10*3/uL Normal 3.70-11.[address] [facility] Comment on above: Order Comment: Speci men Type: BLOOD SPECIMENOrdering Facility: [facility] Address: [address] [place] [address] Performed By: #### 5 7021-8 ####[facility] [id number] [place] [address] [place] CNOVon 09-27-2024 CNOV Office Visit (FAMPWS ) KRYSTYNA KHANNA ([id number]) 1935 F Date Time Provider Department 09/27/24 1:00 PM RUFINO ERICKSON During your visit today, we recorded the following information about you: Pulse Respiration Blood pressure Weight 59/minute 18/minute 104/60 68.5 kg Rufino Erickson MD 09/29/2024 7:07 AM Signed Chief Complaint Patient presents with: Pre-Op Exam HPI Krystyna Khanna is a 89 year old female who presents here today for Pre Op for eye surgery with [facility]. 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 Krystyna Khanna is a 89-year-old female, with a history of CVA, presenting for preoperative clearance for a vitrectomy. Krystyna has been experiencing decreased vision in the right eye due to a vitreous hemorrhage. She has been under the care of a retinal specialist since July, with three visits so far, but has not seen any improvement in her vision. Krystyna reports complete loss of vision in the right eye, while vision in the left eye remains unaffected. She is scheduled for a vitrectomy in two weeks and is seeking preoperative clearance. Krystyna has a history of CVA in April, which was attributed to discontinuation of Xarelto in December due to absence of AFib episodes. She was subsequently started on Eliquis. She denies current episodes of AFib, chest pain, or palpitations. She is not aware of any instructions to discontinue Eliquis prior to the upcoming surgery. Krystyna reports difficulty with mobility and requires assistance when climbing stairs. She denies dyspnea or chest pain with exertion. She is able to dress herself but lacks confidence in bathing independently. She denies performing heavy dinkey operator slate such as moving furniture, vacuuming, or sweeping. She has not been consistent with her prescribed exercises due to recent family events. Krystyna denies recent fevers but reports occasional cephalalgia, for which she takes extra strength Tylenol. She also reports back pain, which she attributes to prolonged sitting, and takes Tylenol for relief. Krystyna reports urinary incontinence, noting that she sometimes wets her pad in the morning. She denies dysuria, hematuria, or changes in urinary frequency. She reports occasional blood in her stool, particularly with straining, and suspects she may have hemorrhoids. She experiences diarrhea, which she believes is diet-related, and takes antidiarrheal medication as needed. She denies hematochezia or melena. She reports abdominal pain associated with diarrhea, which resolves after bowel movements. Krystyna denies recent issues with her nose or throat, other than mild rhinorrhea. She denies wheezing, hemoptysis, or shortness of breath. She denies any recent skin sores or rashes, and has not noticed any lumps or swelling in her neck. She denies any recent episodes of syncope, seizures, or tremors. She reports poor sleep quality at night, despite taking melatonin, and attributes this to daytime napping and excessive thinking at night. She denies any recent increase in thirst. Past medical history, appointments, medications, allergies reviewed. Previous Medical History PAST MEDICAL HISTORY Diagnosis Date Advance directive discussed with patient 11/20/2021 Packets given 11/20/2021 Atrial fibrillation (HCC) Bilateral knee pain 01/09/2010 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 11/30/2022 Elevated hemoglobin A1c 11/08/2017 Encounter for Medicare annual wellness exam 09/25/2020 Medical B eligibilty date 02/18/2000 Date of last exam 10/25/2020 Hepatitis thinks B History of congestive heart failure History of CVA (cerebrovascular accident) 04/23/2024 04/19/2024: Rt frontoparietal, Lt parietal History of heart attack Hypertension, essential 11/08/2017 Left hemiparesis (HCC) 05/30/2024 Obesity, Class II, BMI 35-39.9 11/08/2017 Osteoarthritis Osteopenia, senile 09/25/2020 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 No further w/u needed and ok to stay on Xarelto RBBB 09/27/2024 Previous Surgical History PAST SURGICAL HISTORY Procedure Laterality Date 2D ECHO (EXEP) 10/28/2020 EF=60%, 1+ TImod alvarez dysf ARTHRP KNE CONDYLEANDPLATU MEDIALANDLAT COMPARTMENTS Left 11/19/2017 Knee replacement, total PAST SURGICAL HISTORY OF 2004 right knee replacement REMV CATARACT EXTRACAP,INSERT LENS Bilateral REVISION OF UPPER EYELID Bilateral 11/21/2021 TUBAL LIGATION Family History FAMILY HISTORY Problem Relation Age of Onset Heart Mother Heart Father 59 heart trouble Hypertension Father Heart Sister Breast Cancer Sister Cancer Paternal Grandmother stomach Breast Cancer Maternal Aunt Diabetes Maternal Aunt Diabetes Other cousin Patient Allerg (more content not included)... Normal [facility] [id number] 09-27-2024 ECG01 Ventricular Rate : 6 0 BPM Atrial Rate : 67 BPM P-R Interval : 140 ms QRS Duration : 128 ms Q-T Interval : 448 ms QTC Calculation(Bazett) : 448 ms Calculated R H[place] : 6 degrees Calculated T Hico : -24 degrees NORMAL SINUS RHYTHM COMPLETE RIGHT BUNDLE BRANCH BLOCK INFERIOR MYOCARDIAL INFARCTION , AGE UNDETERMINED ABNORMAL ECG Confirmed by MD MENDOZA QARAB ([id number]) on 09/29/2024 3:01:30 PM NAME : KRYSTYNA KHANNA PID : [id number] : 1935 Gender : Female Race : ORD : Procedure Date : Sep 27 2024 13:18:56 Edit Date : Sep 29 2024 15:01:36 Diagnosis: NORMAL SINUS RHYTHM COMPLETE RIGHT BUNDLE BRANCH BLOCK INFERIOR MYOCARDIAL INFARCTION , AGE UNDETERMINED ABNORMAL ECG Confirmed by MD MENDOZA QARAB ([id number]) on 09/29/2024 3:01:30 PM Test Reason : Location : 136 : [facility] Overread By : MD MENDOZA QARAB Edited By : MD MENDOZA QARAB Referred By : Rufino Erickson Acquired by : Betsy stuart [facility] Cardiology Visit Reporton Cardiology Visit Report Normal [facility] CNOVon 07-12-2024 CNOV Office Visit (UCWSTR ) KRYSTYNA KHANNA ([id number]) 1935 F Date Time Provider Department 07/12/24 2:45 PM HARRISON OSBORNE [facility]WSTR During your visit today, we recorded the following information about you: Temperature Pulse Blood pressure 98.6 degrees 72/minute 124/78 Harrison Osborne, STOCK FEEDER.KRISTINE 07/12/2024 3:37 PM Signed This note was created using [employer] Grouper[employer]. Subjective Krystyna Khanna is a 89 year old female. HPI For the last three days pt has had body aches, sore throat, and headache. Review of Systems Constitutional: Negative for fever. Respiratory: Positive for cough. Genitourinary: Negative for dysuria and frequency. Objective BP 124/78 Pulse 72 Temp 37 ?C (98.6 ?F) (Tympanic) SpO2 94% Physical Exam Vitals and nursing note reviewed. Constitutional: General: She is not in acute distress. Appearance: Normal appearance. She is not ill-appearing. HENT: Head: Normocephalic. Right Ear: Tympanic membrane normal. Left Ear: Tympanic membrane normal. Mouth/Throat: Mouth: Mucous membranes are moist. Pharynx: No oropharyngeal exudate or posterior oropharyngeal erythema. Eyes: Conjunctiva/sclera: Conjunctivae normal. Cardiovascular: Rate and Rhythm: Normal rate and regular rhythm. Pulmonary: Effort: Pulmonary effort is normal. Breath sounds: Normal breath sounds. Musculoskeletal: General: Normal range of motion. Cervical back: Normal range of motion. Skin: General: Skin is warm and dry. Neurological: General: No focal deficit present. Mental Status: She is alert. Psychiatric: Mood and Affect: Mood normal. Behavior: Behavior normal. Assessment and Plan ASSESSMENT/PLAN: 1. Flu-like symptoms - ICD9: 780.99, ICD10: R68.89 (primary diagnosis) Chest x-ray today showed small left pleural effusion but otherwise no other concerning issues. Patient was tested for flu and COVID understanding that there is no specific treatment at this time due to length of symptoms. I did recommend follow-up with PCP for reevaluation and monitoring of the pleural effusion in 10-14 days. - XR CHEST 2V FRONTAL/LAT - COVID AND INFLUENZA A/B AND RSV PCR, ROUTINE Harrison Osborne APRN.[employer]LINDER [employer]CH[employer]IC Allergies As of Date: 07/12/2024 Noted Allergy Reaction DARVOCET A500 (PROPOXYPHENE N-APOLINAR*04/26/2012 16 - Unknown PROPOXYPHENE 07/03/2022 16 - Unknown SULFA (SULFONAMIDE ANTIBIOTICS) 04/26/2012 14 - Other: See Comments Comments: didn't feel right, nervousness Date Reviewed: 07/12/2024 Reviewed by: Harrison Osborne APRN.CYLINDER BLOCK MECHANIC - Fully Assessed Reason for Visit: Headache [52] Cmt: HU, ST and bodyaches x 3 days Primary Visit Diagnosis:Flu-like symptoms [R68.89] Other Visit Diagnosis:Acute upper respiratory infection, unspecified [J06.9] Order(s):XR CHEST 2V FRONTAL/LAT [[id number]] Order #: [id number] FUTURE COVID AND INFLUENZA A/B AND RSV PCR, ROUTINE [SQCVFLRS] Order #: [id number]. #:[id number] Prescriptions as of 07/12/2024 - atorvastatin (LIPITOR) 40 mg tablet Take 1 tablet by mouth once daily. - donepezil (ARICEPT) 10 mg tablet Take 1 tablet by mouth daily at bedtime. - metoprolol succinate ER (TOPROL XL) 25 mg 24 hr tablet Take 1 tablet by mouth once daily. - apixaban (ELIQUIS) 5 mg tab(s) Take 1 tablet by mouth two times a day. - melatonin 3 mg tablet Take 1 tablet by mouth daily at bedtime. - benzonatate (TESSALON PERLES) 100 mg capsule Take 2 capsules by mouth three times a day as needed for cough. - albuterol HFA (PROVENTIL HFA, VENTOLIN HFA) 90 mcg/actuation inhaler Inhale 2 Puffs as instructed every 4 hours as needed for wheezing/shortness of breath. - calcium Carbonate 300 mg, 750mg, (TUMS) 300 mg (750 mg) chewable tablet Take 1 tablet by mouth twice daily. - loperamide HCl (IMODIUM) 2 mg tab Take 2 mg by mouth as needed. - Cholecalciferol, Vitamin D3, (D3-2000) 50 mcg (2,000 unit) cap Take 1 capsule by mouth once daily. - multivitamin tablet Take 1 tablet by mouth once daily. - acetaminophen (TYLENOL) 500 mg tablet Take 500 mg by mouth every 6 hours as needed. Problem List As Of Date 07/12/2024 Noted Resolved Bilateral knee pain [M25.561, M25.562] 01/09/2010 Osteoarthritis [M19.90] 11/01/2017 Hypertension, essential [I10] 11/08/2017 Atrial fibrillation (HCC) [I48.91] 11/08/2017 Hepatitis [K75.9] 11/08/2017 Elevated hemoglobin A1c [R73.09] 11/08/2017 Obesity, Class II, BMI 35-39.9 [E66.812] 11/08/2017 Arthritis of knee [M17.10] 11/19/2017 12/23/2017 Primary osteoarthritis of left knee [M17.12] 11/24/2017 12/23/2017 Encounter for Medicare annual wellness exam [Z0*09/25/2020 Osteopenia, senile [M85.80] 09/25/2020 AK (actinic keratosis) [L57.0] 05/19/2021 Medication management [Z79.899] 05/19/2021 Advance directive discussed with patient [Z71.8*11/20/2021 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] 12/10/2021 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 *11/30/2022 H (more content not included)... Normal [facility] XR CHEST 2V FRONTAL/LATon XR CHEST 2V FRONTAL/LAT * * *Final Report* * * DATE OF EXAM: Jul 12 2024 3:24PM WOX 5291 - XR CHEST 2V FRONTAL/LAT / PROCEDURE REASON: Flu-like symptoms * * * * Physician Interpretation * * * * EXAMINATION: CHEST RADIOGRAPH (2 VIEW FRONTAL and LATERAL) CLINICAL HISTORY: Flu-like symptoms MQ: XC2_6 EXAM DATE/TIME: 07/12/2024 3:24 PM COMPARISON: 04/17/2024 RESULT: Lines, tubes, and devices: None. Lungs and pleura: No consolidation or mass or pneumothorax. Suspect small left pleural effusion that has developed since the previous exam. Cardiomediastinal silhouette: Stable mild cardiomegaly Bones and soft tissues: Unremarkable. 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 Lungs and pleura: No consolidation or mass or pneumothorax. Suspect small left pleural effusion that has developed since the previous exam. Cardiomediastinal silhouette: Stable mild cardiomegaly Bones and soft tissues: Unremarkable. DIVISION OF RADIOLOGY Provider, [facility] - 07/12/2024 * * *Final Report* * * DATE OF EXAM: Jul 12 2024 3:24PM WOX 5291 - XR CHEST 2V FRONTAL/LAT / PROCEDURE REASON: Flu-like symptoms * * * * Physician Interpretation * * * * EXAMINATION: CHEST RADIOGRAPH (2 VIEW FRONTAL & LATERAL) CLINICAL HISTORY: Flu-like symptoms MQ: XC2_6 EXAM DATE/TIME: 07/12/2024 3:24 PM COMPARISON: 04/17/2024 RESULT: Lines, tubes, and devices: None. Lungs and pleura: No consolidation or mass or pneumothorax. Suspect small left pleural effusion that has developed since the previous exam. Cardiomediastinal silhouette: Stable mild cardiomegaly Bones and soft tissues: Unremarkable. IMPRESSION 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 Transcribe Date/Time: Jul 12 2024 3:24P Dictated by : JANET MADRID MD This examination was interpreted and the report reviewed and electronically signed by: JANET MADRID MD on Jul 12 2024 3:27PM EST [facility] Radiology Study observation (narrative) [facility] XR Chest PA and LateralOrder ed By: [facility] Provider on 07-12-2024 [facility] CBC W Auto Differential pane l (Bld)on 07-05-2024 Basophils (Bld) [#/Vol] 10*3/uL Normal <0.11 [facility] Comment on above: Order Comment: Speci men Type: BLOOD SPECIMENOrdering Facility: [facility] Address: [address] [place] [address] Performed By: #### 5 7021-8 ####[facility] LABCLIA [id number] [place] [address] [place] Basophils/100 WBC (Bld) 0.4 % Normal [facility] Comment on above: Order Comment: Speci men Type: BLOOD SPECIMENOrdering Facility: [facility] Address: [address] [place] [address] Performed By: #### 5 7021-8 ####[facility] LABCLIA [id number] [place] [address] [place] Differential cell count method Nom (Bld) Auto Normal [facility] Comment on above: Order Comment: Speci men Type: BLOOD SPECIMENOrdering Facility: [facility] Address: [address] [place] [address] Performed By: #### 5 7021-8 ####[facility] LABCLIA [id number] [place] [id number] [place] Eosinophils (Bld) [#/Vol] 10*3/uL Normal <0.46 [facility] Comment on above: Order Comment: Speci men Type: BLOOD SPECIMENOrdering Facility: [facility] Address: [address] [place] [address] Performed By: #### 5 7021-8 ####[facility] LABCLIA [id number] [address] [place] [address] [place] Eosinophils/100 WBC (Bld) 0.4 % Normal [facility] Comment on above: Order Comment: Speci men Type: BLOOD SPECIMENOrdering Facility: [facility] Address: [address] [place] [address] Performed By: #### 5 7021-8 ####[facility] LABCLIA [id number] [address], [place] [address] [place] Erythrocyte distribution width (RBC) [Ratio] 12.4 % Normal 11.5-15.0 [facility] Comment on above: Order Comment: Speci men Type: BLOOD SPECIMENOrdering Facility: [facility] Address: [address] [place] [address] Performed By: #### 5 7021-8 ####[facility] LABCLIA [id number] [address], [place] [address] [place] Hematocrit (Bld) [Volume fraction] 38.3 % Normal 36.0-46.0 [facility] Comment on above: Order Comment: Speci men Type: BLOOD SPECIMENOrdering Facility: [facility] Address: [address] [place] [address] Performed By: #### 5 7021-8 ####[facility] LABCLIA [id number] [address], [place] [address] [place] Hemoglobin (Bld) [Mass/Vol] 12.5 g/dL Normal 11.5-15.5 [facility] Comment on above: Order Comment: Speci men Type: BLOOD SPECIMENOrdering Facility: [facility] Address: [address] [place] [address] Performed By: #### 5 7021-8 ####[facility] LABCLIA [id number] [address], [facility] [place] Immature granulocytes (Bld) [#/Vol] 10*3/uL Normal <0.10 [facility] Comment on above: Order Comment: Speci men Type: BLOOD SPECIMENOrdering Facility: [facility] Address: [address] [place] [address] Performed By: #### 5 7021-8 ####[facility] LABCLIA [id number] [place] [id number] [place] Immature granulocytes/100 WBC (Bld) 0.2 % Normal [facility] Comment on above: Order Comment: Speci men Type: BLOOD SPECIMENOrdering Facility: [facility] Address: [address] [place] [address] Performed By: #### 5 7021-8 ####[facility] LABCLIA [id number] [place] [address] [place] Lymphocytes (Bld) [#/Vol] 2.14 10*3/uL Normal 1.00-4.00 [facility] Comment on above: Order Comment: Speci men Type: BLOOD SPECIMENOrdering Facility: [facility] Address: [address] [place] [address] Performed By: #### 5 7021-8 ####[facility] LABCLIA [id number] [place] [address] [place] Lymphocytes/100 WBC (Bld) 46.8 % Normal [facility] Comment on above: Order Comment: Speci men Type: BLOOD SPECIMENOrdering Facility: [facility] Address: [address] [place] [address] Performed By: #### 5 7021-8 ####[facility] LABCLIA [id number] [place] [id number] [place] MCH (RBC) [Entitic mass] 31.9 pg Normal 26.0-34.0 [facility] Comment on above: Order Comment: Speci men Type: BLOOD SPECIMENOrdering Facility: [facility] Address: [address] [place] [address] Performed By: #### 5 7021-8 ####[facility] LABCLIA [id number] [place] [address] [place] MCHC (RBC) [Mass/Vol] 32.6 g/dL Normal 30.5-36.0 [facility] Comment on above: Order Comment: Speci men Type: BLOOD SPECIMENOrdering Facility: [facility] Address: [address] [place] [address] Performed By: #### 5 7021-8 ####[facility] LABIA [id number] [place] [address] [place] MCV (RBC) [Entitic vol] 97.7 fL Normal 80.0-100.0 [facility] Comment on above: Order Comment: Speci men Type: BLOOD SPECIMENOrdering Facility: [facility] Address: [address] [place] [address] Performed By: #### 5 7021-8 ####[facility] LABIA [id number] [place] [address] [place] Monocytes (Bld) [#/Vol] 0.65 10*3/uL Normal <0.87 [facility] Comment on above: Order Comment: Speci men Type: BLOOD SPECIMENOrdering Facility: [facility] Address: [address] [place] [address] Performed By: #### 5 7021-8 ####[facility] LABIA [id number] [place] [address] [place] Monocytes/100 WBC (Bld) 14.2 % Normal [facility] Comment on above: Order Comment: Speci men Type: BLOOD SPECIMENOrdering Facility: [facility] Address: [address] [place] [address] Performed By: #### 5 7021-8 ####[facility] LABCLIA [id number] [address], [facility] [place] Neutrophils (Bld) [#/Vol] 1.73 10*3/uL Normal 1.45-7.50 [facility] Comment on above: Order Comment: Speci men Type: BLOOD SPECIMENOrdering Facility: [facility] Address: [address] [place] [address] Performed By: #### 5 7021-8 ####[facility] LABCLIA [id number] [place] [address] [place] Neutrophils/100 WBC (Bld) 38.0 % Normal [facility] Comment on above: Order Comment: Speci men Type: BLOOD SPECIMENOrdering Facility: [facility] Address: [address] [place] [address] Performed By: #### 5 7021-8 ####[facility] LABIA [id number] [place] [address] [place] Nucleated RBC (Bld) [#/Vol] 10*3/uL Normal <0.01 [facility] Comment on above: Order Comment: Speci men Type: BLOOD SPECIMENOrdering Facility: [facility] Address: [address] [place] [address] Performed By: #### 5 7021-8 ####[facility] LABIA [id number] [place] [address] [place] Nucleated RBC/100 WBC (Bld) [Ratio] 0.0 /100 WBC Normal [facility] Comment on above: Order Comment: Speci men Type: BLOOD SPECIMENOrdering Facility: [facility] Address: [address] [place] [address] Performed By: #### 5 7021-8 ####[facility] LABIA [id number] [place] [address] [place] Platelet mean volume (Bld) [Entitic vol] Normal [facility] Comment on above: Order Comment: Speci men Type: BLOOD SPECIMENOrdering Facility: [facility] Address: [address] [place] [address] Result Comment: Unab le to Report. Performed By: #### 5 7021-8 ####[facility] LABIA [id number] [place] [address] [place] Platelets (Bld) [#/Vol] Normal [facility] Comment on above: Order Comment: Speci men Type: BLOOD SPECIMENOrdering Facility: [facility] Address: [address] [place] [address] Result Comment: Plat elet count confirmed by manual review of peripheral blood smear. No clot detected.Platelets Clumped Estimate Low. Performed By: #### 5 7021-8 ####[facility] [id number] [place] [address] [place] RBC (Bld) [#/Vol] 3.92 10*6/uL Normal 3.90-5.[address] [facility] Comment on above: Order Comment: Speci men Type: BLOOD SPECIMENOrdering Facility: [facility] [facility] Address: [address] [place] [address] Performed By: #### 5 7021-8 ####[facility] [id number] [place] [address] [place] WBC (Bld) [#/Vol] 4.57 10*3/uL Normal 3.70-11.[address] [facility] Comment on above: Order Comment: Speci men Type: BLOOD SPECIMENOrdering Facility: [facility] Address: [address] [place] [address] Performed By: #### 5 7021-8 ####[facility] [id number] [place] [id number] [place] CNOVon 07-05-2024 CNOV Office Visit (FAMPWS ) KRYSTYNA KHANNA ([id number]) 1935 F Date Time Provider Department 07/05/24 11:20 AM RUFINO ERICKSON During your visit today, we recorded the following information about you: Pulse Respiration Blood pressure Weight 55/minute 16/minute 102/60 76.2 kg Rufino Erickson MD 07/05/2024 12:23 PM Signed Chief Complaint Patient presents with: Follow Up HPI Krystyna Khanna is a 89 year old female who presents here today for follow up. Espinoza her son is with her today. Patient was seen in [facility] ER on 06/08/2024 for black stools. No gross hematochezia noted. Here Vitals were stable. Abdominal exam was normal and rectal exam showed no melena or gross blood. Labs showed her Hg was stable, platelets were low, sodium was ok at 135. BUN and creatinine were ok. Chest x-ray was unremarkable. 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 Patient was released from nursing home in the past week. Patient is at home and getting PHYSICAL THERAPY and nursing home at home. She has some weakness and imbalance still and it is a physical hardship for her to get out of the house for Tx. She is getting around with the use of a walker and her son says she is doing much better with this than she had been when she first went into the nursing home facility for rehab. . Office visit 05/30/2024 - hospital follow up Patient was admitted to [facility] on 04/20/2024 and discharged on 05/03/2024 to nursing home for rehab. 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 Known Hx of A. Fib and had been weaned off her Eliquis due to no issues in several years and getting nose bleeds. She was placed on Lipitor 40 mg a day, Aricept 5 mg a day, Eliquis 5 mg twice a day, metoprolol ER 50 mg a day and melatonin 3 mg QHS to aid with sleep. Patient is currently in [facility] nursing home: They just had a meeting this week and plan to keep her for another 4 weeks at this time. She is to f/u wit Dr. Choi for cardiology and Dr. Bonilla for neurology once she is discharged. Carotid US showed less hannah 50% stenosis bilaterally in the internal carotids. Patient has improved with Tx and continues to progress with improvement in her upper left arm and left lower extremity. Has help with walking and using a walker. Past medical history, appointments, medications, allergies reviewed. Previous Medical History PAST MEDICAL HISTORY Diagnosis Date Advance directive discussed with patient 11/20/2021 Packets given 11/20/2021 Atrial fibrillation (HCC) Bilateral knee pain 01/09/2010 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 11/30/2022 Elevated hemoglobin A1c 11/08/2017 Encounter for Medicare annual wellness exam 09/25/2020 Medical B eligibilty date 02/18/2000 Date of last exam 10/25/2020 Hepatitis thinks B History of congestive heart failure History of CVA (cerebrovascular accident) 04/23/2024 04/19/2024: Rt frontoparietal, Lt parietal History of heart attack Hypertension, essential 11/08/2017 Left hemiparesis (HCC) 05/30/2024 Obesity, Class II, BMI 35-39.9 11/08/2017 Osteoarthritis Osteopenia, senile 09/25/2020 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 No further w/u needed and ok to stay on Xarelto Previous Surgical History PAST SURGICAL HISTORY Procedure Laterality Date 2D ECHO (EXEP) 10/28/2020 EF=60%, 1+ TImod alvarez dysf ARTHRP KNE CONDYLEANDPLATU MEDIALANDLAT COMPARTMENTS Left 11/19/2017 Knee replacement, total PAST SURGICAL HISTORY OF 2004 right knee replacement REMV CATARACT EXTRACAP,INSERT LENS Bilateral REVISION OF UPPER EYELID Bilateral 11/21/2021 TUBAL LIGATION Family History FAMILY HISTORY Problem Relation Age of Onset Heart Mother Heart Father Breast Cancer Maternal Aunt Diabetes Maternal Aunt Diabetes Other cousin Cancer Paternal Grandmother stomach Heart Sister Breast Cancer Sister Patient Allergies ALLERGIES Allergen Reactions Darvocet A500 [Prop* Unknown Propoxyphene Unknown Sulfa (Sulfonamide * Other: See Comments didn't feel right, nervousness Current Medications Current Outpatient Medications on File Prior to Visit Medication Sig atorvastatin (LIPITOR) 40 mg tablet Take 1 tablet by mouth once daily. donepezil (ARICEPT) 5 mg tablet Take 1 tablet by mouth daily at bedtime. apixaban (ELIQUIS) 5 mg tab(s) Take 1 tablet by mouth two times a day. melatonin 3 mg tablet Take 1 tablet by mouth daily at bedtime. benzonatate (TESSALON PERLES) 100 mg capsule Take 2 capsules by mouth three times a day as needed for cough. metoprolol succinate ER (TOPROL XL) 50 mg 24 hr tablet Take 1 tablet (more content not included)... Normal [facility] Comprehensive metabolic 2000 panelon 07-05-2024 Albumin [Mass/Vol] 4.0 g/dL Normal 3.9-4.9 [facility] Comment on above: Order Comment: Speci men Type: BLOOD SPECIMENOrdering Facility: [facility] Address: [address] [place] [address] Performed By: #### 2 4323-8, LIPNF ####[facility] LABCLIA [id number] [place] [address] [place] ALP [Catalytic activity/Vol] 75 U/L Normal 34-123 [facility] Comment on above: Order Comment: Speci men Type: BLOOD SPECIMENOrdering Facility: [facility] Address: [address] [place] [address] Performed By: #### 2 4323-8, LIPNF ####[facility] LABCLIA [id number] [place] [address] [place] ALT [Catalytic activity/Vol] 7 U/L Normal 7-38 [facility] Comment on above: Order Comment: Speci men Type: BLOOD SPECIMENOrdering Facility: [facility] Address: [address] [place] [address] Performed By: #### 2 4323-8, LIPNF ####[facility] LABCLIA [id number] [place] [address] [place] Anion gap [Moles/Vol] 11 mmol/L Normal 8-15 [facility] Comment on above: Order Comment: Speci men Type: BLOOD SPECIMENOrdering Facility: [facility] Address: [address] [place] [id number] Performed By: #### 2 4323-8, LIPNF ####[facility] LABCLIA [id number] [place] [id number] [place] AST [Catalytic activity/Vol] 22 U/L Normal 13-35 [facility] Comment on above: Order Comment: Speci men Type: BLOOD SPECIMENOrdering Facility: [facility] Address: [address] [place] [address] Performed By: #### 2 4323-8, LIPNF ####[facility] LABCLIA [id number] [place] [address] [place] Bilirubin [Mass/Vol] 0.7 mg/dL Normal 0.2-1.3 [facility] Comment on above: Order Comment: Speci men Type: BLOOD SPECIMENOrdering Facility: [facility] Address: [address] [place] [address] Performed By: #### 2 4323-8, LIPNF ####[facility] LABCLIA [id number] [place] [address] [place] Calcium [Mass/Vol] 9.5 mg/dL Normal 8.5-10.2 [facility] Comment on above: Order Comment: Speci men Type: BLOOD SPECIMENOrdering Facility: [facility] Address: [address] [place] [address] Performed By: #### 2 4323-8, LIPNF ####[facility] LABCLIA [id number] [place] [id number] [place] Chloride [Moles/Vol] 102 mmol/L Normal 98-107 [facility] Comment on above: Order Comment: Speci men Type: BLOOD SPECIMENOrdering Facility: [facility] Address: [address] [place], [place] [address] Performed By: #### 2 4323-8, LIPNF ####[facility] LABCLIA [id number] [address] [address] [place] CO2 [Moles/Vol] 27 mmol/L Normal 22-30 [facility] Comment on above: Order Comment: Speci men Type: BLOOD SPECIMENOrdering Facility: [facility] Address: [address] [place] [address] Performed By: #### 2 4323-8, LIPNF ####[facility] LABCLIA [id number] [address] [address] [place] Creatinine [Mass/Vol] 0.63 mg/dL Normal 0.58-0.96 [facility] Comment on above: Order Comment: Speci men Type: BLOOD SPECIMENOrdering Facility: [facility] Address: [address] [place] [address] Performed By: #### 2 4323-8, LIPNF ####[facility] LABIA [id number] [place] [id number] [place] Creatinine and Glomerular filtration rate.predicted panel (S/P/Bld) 85 mL/min/1.73m??? Normal >=60 [facility] Comment on above: Order Comment: Speci men Type: BLOOD SPECIMENOrdering Facility: [facility] Address: [address] [place] [address] Result Comment: Nichelle mated Glomerular Filtration Rate (eGFR) is calculated using the 2020 CKD-EPI creatinine equation. This equation utilizes serum creatinine, sex, and age as parameters. The creatinine assay has traceable calibration to isotope dilution-mass spectrometry. Refer to KDIGO guidelines for clinical interpretation. In patients with unstable renal function, e.g. those with acute kidney injury, the eGFR may not accurately reflect actual GFR. Performed By: #### 2 4323-8, LIPNF ####[facility] LABCLIA [id number] [address] [address] [place] Glucose [Mass/Vol] 125 mg/dL High 74-99 [facility] Comment on above: Order Comment: Speci men Type: BLOOD SPECIMENOrdering Facility: [facility] Address: [address] [place] [address] Result Comment: The [place] Diabetes Association (ADA) provides guidance for cutoff values for fasting glucose and random glucose. The ADA defines fasting as no caloric intake for at least 8 hours. Fasting plasma glucose results between 100 to 125 mg/dL indicate increased risk for diabetes (prediabetes). Fasting plasma glucose results greater than or equal to 126 mg/dL meet the criteria for diagnosis of diabetes. In the absence of unequivocal hyperglycemia, results should be confirmed by repeat testing. In a patient with classic symptoms of hyperglycemia or hyperglycemic crisis, random plasma glucose results greater than or equal to 200 mg/dL meet the criteria for diagnosis of diabetes. Reference: Standards of Medical Care in Diabetes 2016, Chinese Diabetes Association. Diabetes Care. 2016.39(Suppl 1). Performed By: #### 2 4323-8, LIPNF ####[facility] LABCLIA [id number] [place] [address] [place] Potassium [Moles/Vol] 4.5 mmol/L Normal 3.7-5.1 [facility] Comment on above: Order Comment: Speci men Type: BLOOD SPECIMENOrdering Facility: [facility] Address: [address] [place] [address] Performed By: #### 2 4323-8, LIPNF ####[facility] LABCLIA [id number] [place] [address] [place] Protein [Mass/Vol] 6.8 g/dL Normal 6.3-8.0 [facility] Comment on above: Order Comment: Speci men Type: BLOOD SPECIMENOrdering Facility: [facility] Address: [address] [place] [address] Performed By: #### 2 4323-8, LIPNF ####[facility] LABCLIA [id number] [place] [id number] [place] Sodium [Moles/Vol] 140 mmol/L Normal 136-144 [facility] Comment on above: Order Comment: Speci men Type: BLOOD SPECIMENOrdering Facility: [facility] Address: [address] [place] [address] Performed By: #### 2 4323-8, LIPNF ####[facility] LABCLIA [id number] [address] [address] [place] Urea nitrogen [Mass/Vol] 8 mg/dL Normal 7-21 [facility] Comment on above: Order Comment: Speci men Type: BLOOD SPECIMENOrdering Facility: [facility] Address: [address] [place] [address] Performed By: #### 2 4323-8, LIPNF ####[facility] LABCLIA [id number] [place] [address] [place] HbA1c (Bld)on 07-05-2024 Average glucose Estimated from glycated hemoglobin (Bld) [Mass/Vol] 114 mg/dL Normal [facility] Comment on above: Order Comment: Felipei men Type: BLOOD SPECIMENOrdering Facility: [facility] Address: [address] [place] [address] Result Comment: eAG: (Estimated average glucose) is a calculated value from HgbA1c and is disability representative of the average blood glucose level in the last 2-3 month period. Performed By: #### 5 5454-3 ####[facility] LABCLIA [id number] [place] [id number] [place] HbA1c (Bld) [Mass fraction] 5.6 % Normal 4.3-5.6 [facility] Comment on above: Order Comment: [facility] Type: BLOOD SPECIMENOrdering Facility: [facility] Address: [address] [place] [address] Result Comment: Amer ican Diabetes Association guidelines indicate that patients with HgbA1c in the range 5.7-6.4% are at increased risk for development of diabetes, and intervention by lifestyle modification may be beneficial. HgbA1c greater or equal to 6.5% is considered diagnostic of diabetes. Performed By: #### 5 5454-3 ####[facility] LABCLIA [id number] [facility] [place] [address] [facility] [place] LIPID PANEL, NONFASTINGon Cholesterol [Mass/Vol] 85 mg/dL Normal <200 [facility] Comment on above: Order Comment: Speci men Type: BLOOD SPECIMENOrdering Facility: [facility] Address: [address] [place] [address] Result Comment: <200 mg/dL, Desirable 200-239 mg/dL, Borderline high >239 mg/dL, High Performed By: #### 2 4323-8, LIPNF ####[facility] LABCLIA [id number] [address], [place] [address] [place] HDL CHOLESTEROL, NF 37 mg/dL Low >[address] [facility] Comment on above: Order Comment: Speci men Type: BLOOD SPECIMENOrdering Facility: [facility] Address: [address] [place] [address] Result Comment: 40-5 9 mg/dL, Acceptable >59 mg/dL, High: Negative risk factor for coronary heart disease <40 mg/dL, Low: Positive risk factor for coronary heart disease Performed By: #### 2 4323-8, LIPNF ####[facility] LABCLIA [id number] [address], [place] [address] [place] LDL CHOLESTEROL, NF 29 mg/dL Normal <[address] [facility] Comment on above: Order Comment: Speci men Type: BLOOD SPECIMENOrdering Facility: [facility] Address: [address] [place] [address] Result Comment: <100 mg/dL, Optimal 100-129 mg/dL, Near optimal/above optimal 130-159 mg/dL, Borderline high 160-189 mg/dL, High >189 mg/dL, Very high Secondary prevention optimal LDL Cholesterol levels are recommended to be < 70 mg/dL Performed By: #### 2 4323-8, LIPNF ####[facility] LABCLIA [id number] [address] [place] [address] [place] LDL/HDL RATIO, NF 0.78 mg/dL Normal <2.54 [facility] Comment on above: Order Comment: Speci men Type: BLOOD SPECIMENOrdering Facility: [facility] Address: [address] [place] [address] Result Comment: Balwinder do: 1. National Cholesterol Education Program ATP III Guideline At-A-Glance Quick Desk Reference: National Heart, Lung, and Blood [place]. National Institutes of Health. 2001: NIH Publication No. 01-3305. 2. An International Atherosclerosis Society position paper: global recommendations for the management of dyslipidemia: executive summary, Atherosclerosis. 2014: 232(2):410-413. Performed By: #### 2 4323-8, LIPNF ####[facility] LABCLIA [id number] [address] [place] NON HDL CHOL, NF 48 mg/dL Normal <130 [facility] Comment on above: Order Comment: Felipei men Type: BLOOD SPECIMENOrdering Facility: [facility] Address: [address] [place] [address] Result Comment: <130 mg/dL, Optimal 130-159 mg/dL, Near optimal/above optimal 160-189 mg/dL, Borderline high 190-219 mg/dL, High >219 mg/dL, Very high Secondary prevention optimal non HDL Cholesterol levels are recommended to be <100 mg/dL Performed By: #### 2 4323-8, LIPNF ####[facility] LABCLIA [id number] [place] [address] [place] T CHOL/HDL RATIO NF 2.30 mg/dL Normal <5.[address] [facility] Comment on above: Order Comment: Speci men Type: BLOOD SPECIMENOrdering Facility: [facility] Address: [address] [place] [address] Performed By: #### 2 4323-8, LIPNF ####[facility] LABCLIA [id number] [place] [address] [place] TRIGLYCERIDES, NF 94 mg/dL Normal <150 [facility] Comment on above: Order Comment: Speci men Type: BLOOD SPECIMENOrdering Facility: [facility] Address: [address] [place] [address] Result Comment: <150 mg/dL, Normal 150-199 mg/dL, Borderline high 200-499 mg/dL, High >499 mg/dL, Very high Performed By: #### 2 4323-8, LIPNF ####[facility] LABCLIA [id number] [place] [address] [place] VLDL CHOLESTEROL, NF 19 mg/dL Normal <30 [facility] Comment on above: Order Comment: Speci men Type: BLOOD SPECIMENOrdering Facility: [facility] Address: [address] [place] [address] Performed By: #### 2 4323-8, LIPNF ####[facility] LABCLIA [id number] [place] [address] [place] Basic Metabolic Profile (BMP )on 06-08-2024 BUN/CRE 24.4 RATIO High - [facility] Comment on above: Performed By: #### B TS, L100.0100, L300.3900, L500.2500 ####[facility] [address] [place], [address] CA,Total 9.1 mg/dL Normal 8.5-10.1 [facility] Comment on above: Performed By: #### B TS, L100.0100, L300.3900, L500.2500 ####[facility] [address] [place], [address] Chloride [Moles/Vol] 98 mmol/L Normal 98-107 [facility] Comment on above: Performed By: #### B TS, L100.0100, L300.3900, L500.2500 ####[facility] [address] [place], [address] CO2 [Moles/Vol] 33.0 mmol/L High 21.0-32.0 [facility] Comment on above: Performed By: #### B TS, L100.0100, L300.3900, L500.2500 ####[facility] [address] [place], [address] Creatinine [Mass/Vol] 0.74 mg/dL Normal 0.55-1.02 [facility] Comment on above: Result Comment: The validity of the calculated GFR GFRAA in patients over70 years has not been determined. Clinical correlation isessential. Performed By: #### B TS, L100.0100, L300.3900, L500.2500 ####[facility] [address] [place], [address] ECRCL 43.97 ml/min Normal [facility] Comment on above: Performed By: #### B TS, L100.0100, L300.3900, L500.2500 ####[facility] [address] [place], [address] EST GFR - AA 95 mL/min Normal >60 [facility] Comment on above: Result Comment: Afri can Chinese GFR Calc Performed By: #### B TS, L100.0100, L300.3900, L500.2500 ####[facility] [address] [place], [address] GAP 4 Low 5-15 [facility] Comment on above: Performed By: #### B TS, L100.0100, L300.3900, L500.2500 ####[facility] [address] [place], [address] GFR/1.73 sq M.predicted among non-blacks MDRD (S/P/Bld) [Vol rate/Area] 79 mL/min/{1.73_m2} Normal >60 [facility] Comment on above: Result Comment: Non- GFR Calc Performed By: #### B TS, L100.0100, L300.3900, L500.2500 ####[facility] [address] [place], [address] Glucose [Mass/Vol] 101 mg/dL Normal 74-106 [facility] Comment on above: Result Comment: Fast ing Glucose result from 100 to 125 mg/dLsuggests IMPAIRED HOMEOSTASIS per A.D.A. criteria. Performed By: #### B TS, L100.0100, L300.3900, L500.2500 ####[facility] [address] [place], [address] Potassium [Moles/Vol] 4.1 mmol/L Normal 3.5-5.1 [facility] Comment on above: Performed By: #### B TS, L100.0100, L300.3900, L500.2500 ####[facility] [address] [place], [address] Sodium [Moles/Vol] 135 mmol/L Low 136-145 [facility] Comment on above: Performed By: #### B TS, L100.0100, L300.3900, L500.2500 ####[facility] [address] [place], [address] Urea nitrogen [Mass/Vol] 18 mg/dL Normal 7-18 [facility] Comment on above: Performed By: #### B TS, L100.0100, L300.3900, L500.2500 ####[facility] [address] [place], [address] CBC W/Diff, Automatedon 02-2 0-2024 Absolute Lymph 2.36 X10 3/uL Normal 0.83-4.51 [facility] Comment on above: Performed By: #### B TS, L100.0100, L300.3900, L500.2500 ####[facility] [address] [place], [address] Absolute Neut 3.3 X10 3/uL Normal 2.0-7.7 [facility] Comment on above: Performed By: #### B TS, L100.0100, L300.3900, L500.2500 ####[facility] [address] [place], [address] Basophils/100 WBC (Bld) 0.1 % Normal 0-1 [facility] Comment on above: Performed By: #### B TS, L100.0100, L300.3900, L500.2500 ####[facility] [address] [place], [address] Eosinophils/100 WBC (Bld) 1.4 % Normal 0-5 [facility] Comment on above: Performed By: #### B TS, L100.0100, L300.3900, L500.2500 ####[facility] [address] [place], [address] Erythrocyte distribution width (RBC) [Ratio] 13.1 % Normal 11.6-14.6 [facility] Comment on above: Performed By: #### B TS, L100.0100, L300.3900, L500.2500 ####[facility] [address] [place], [address] Hematocrit (Bld) [Volume fraction] 40.9 % Normal 37-47 [facility] Comment on above: Performed By: #### B TS, L100.0100, L300.3900, L500.2500 ####[facility] [address] [place], [address] Hemoglobin (Bld) [Mass/Vol] 12.8 g/dL Normal 12.0-15.0 [facility] Comment on above: Performed By: #### B TS, L100.0100, L300.3900, L500.2500 ####[facility] [address] [place], [address] IG% 0.400 Normal 0.0-0.9 [facility] Comment on above: Result Comment: IG% - Immature Granulocytes (promyelocytes, myelocytes andmetamyelocytes) > 1% indicates that a LEFT SHIFT is Present. Performed By: #### B TS, L100.0100, L300.3900, L500.2500 ####[facility] [address] [place], [address] Lymphocytes/100 WBC (Bld) 32.6 % Normal 19-41 [facility] Comment on above: Performed By: #### B TS, L100.0100, L300.3900, L500.2500 ####[facility] [address] [place], [address] MCH (RBC) [Entitic mass] 30.1 pg Normal 27.0-32.0 [facility] Comment on above: Performed By: #### B TS, L100.0100, L300.3900, L500.2500 ####[facility] [address] [place], [address] MCHC (RBC) [Mass/Vol] 31.3 g/dL Low 32-36 [facility] Comment on above: Performed By: #### B TS, L100.0100, L300.3900, L500.2500 ####[facility] [address] [place], [address] MCV (RBC) [Entitic vol] 96.2 fL Normal 81-99 [facility] Comment on above: Performed By: #### B TS, L100.0100, L300.3900, L500.2500 ####[facility] [address] [place], [address] Monocytes/100 WBC (Bld) 20.3 % High 0-10 [facility] Comment on above: Performed By: #### B TS, L100.0100, L300.3900, L500.2500 ####[facility] [address] [place], [address] Neutrophils/100 WBC (Bld) 45.2 % Low 47-70 [facility] Comment on above: Performed By: #### B TS, L100.0100, L300.3900, L500.2500 ####[facility] [address] [place], [address] Nucleated RBC (Bld) [#/Vol] 0 10*3/uL Normal 0-5 [facility] Comment on above: Performed By: #### B TS, L100.0100, L300.3900, L500.2500 ####[facility] [address] [place], [address] Platelet mean volume (Bld) [Entitic vol] 10.7 fL Normal 6.2-12.0 [facility] Comment on above: Performed By: #### B TS, L100.0100, L300.3900, L500.2500 ####[facility] [address] [place], [address] Platelets (Bld) [#/Vol] 104 10*3/uL Low 150-450 [facility] Comment on above: Performed By: #### B TS, L100.0100, L300.3900, L500.2500 ####[facility] [address] [place], [address] RBC (Bld) [#/Vol] 4.25 10*6/uL Normal 4.2-5.4 [facility] Comment on above: Performed By: #### B TS, L100.0100, L300.3900, L500.2500 ####[facility] [address] [place], [address] RDW SD 46.7 fl High 35.1-43.9 [facility] Comment on above: Performed By: #### B TS, L100.0100, L300.3900, L500.2500 ####[facility] [address] [place], [address] WBC (Bld) [#/Vol] 7.2 10*3/uL Normal 4.4-11.0 [facility] Comment on above: Performed By: #### B TS, L100.0100, L300.3900, L500.2500 ####[facility] [address] [place], [address] Chest PA and Lateralon 06-08 Chest PA and Lateral Normal [facility] Emergency Department Summary on 06-08-2024 Emergency Department Summary Normal [facility] Neurology Visit Reporton Neurology Visit Report Normal [facility] Prothrombin Time w/INRon INR Coag (PPP) [Relative time] 1.4 {INR} Normal [facility] Comment on above: Performed By: #### B TS, L100.0100, L300.3900, L500.2500 ####[facility] [address] [place], [address] PT Coag (PPP) [Time] 17.1 s High 11.7-14.9 [facility] Comment on above: Performed By: #### B TS, L100.0100, L300.3900, L500.2500 ####[facility] [address] [place], [address] Type AND Screenon 06-08-2024 Ab SCREEN GEL Negative Normal [facility] Comment on above: Order Comment: HGI Performed By: #### B TS, L100.0100, L300.3900, L500.2500 ####[facility] [address] [place], [address] CNPNon 05-31-2024 CNPN Telephone (FAMPWS) KRYSTYNA KHANNA ([id number]) 1935 F Date Time Provider Department 05/31/24 RUFINO ERICKSON During your visit today, we recorded the following information about you: Nikia Pineda RN 05/31/2024 2:32 PM Signed Mary Machado CNP with [facility] calls to give provider an update since appt yesterday. BP sitting 122/62 BP standing 150/70 Lung sounds are clear with a very occasional bronchial wheeze noted. Mary said for any questions please feel free to reach her at [phone]. XOCHITL Ga Jeffrey A, MD 05/31/2024 8:32 PM Signed Noted. Allergies As of Date: 05/31/2024 Noted Allergy Reaction DARVOCET A500 (PROPOXYPHENE N-APOLINAR*04/26/2012 16 - Unknown PROPOXYPHENE 07/03/2022 16 - Unknown SULFA (SULFONAMIDE ANTIBIOTICS) 04/26/2012 14 - Other: See Comments Comments: didn't feel right, nervousness Date Reviewed: 05/30/2024 Reviewed by: Rufino Erickson MD - Fully Assessed Reason for Visit: Patient Update [1234] Prescriptions as of 05/31/2024 - atorvastatin (LIPITOR) 40 mg tablet Take 1 tablet by mouth once daily. - donepezil (ARICEPT) 5 mg tablet Take 1 tablet by mouth daily at bedtime. - apixaban (ELIQUIS) 5 mg tab(s) Take 1 tablet by mouth two times a day. - melatonin 3 mg tablet Take 1 tablet by mouth daily at bedtime. - benzonatate (TESSALON PERLES) 100 mg capsule Take 2 capsules by mouth three times a day as needed for cough. - metoprolol succinate ER (TOPROL XL) 50 mg 24 hr tablet Take 1 tablet by mouth once daily. - albuterol HFA (PROVENTIL HFA, VENTOLIN HFA) 90 mcg/actuation inhaler Inhale 2 Puffs as instructed every 4 hours as needed for wheezing/shortness of breath. - calcium Carbonate 300 mg, 750mg, (TUMS) 300 mg (750 mg) chewable tablet Take 1 tablet by mouth twice daily. - doxylamine succinate (NITE TIME SLEEP AID ORAL) Take by mouth as directed. Taking Nature's Bounty Sleep 3 as directed - loperamide HCl (IMODIUM) 2 mg tab Take 2 mg by mouth as needed. - Cholecalciferol, Vitamin D3, (D3-2000) 50 mcg (2,000 unit) cap Take 1 capsule by mouth once daily. - multivitamin tablet Take 1 tablet by mouth once daily. - acetaminophen (TYLENOL) 500 mg tablet Take 500 mg by mouth every 6 hours as needed. - DOCOSAHEXANOIC ACID/EPA (FISH OIL ORAL) Take 1,000 mg by mouth once daily. Problem List As Of Date 05/31/2024 Noted Resolved Bilateral knee pain [M25.561, M25.562] 01/09/2010 Osteoarthritis [M19.90] 11/01/2017 Hypertension, essential [I10] 11/08/2017 Atrial fibrillation (HCC) [I48.91] 11/08/2017 Hepatitis [K75.9] 11/08/2017 Elevated hemoglobin A1c [R73.09] 11/08/2017 Obesity, Class II, BMI 35-39.9 [E66.812] 11/08/2017 Arthritis of knee [M17.10] 11/19/2017 12/23/2017 Primary osteoarthritis of left knee [M17.12] 11/24/2017 12/23/2017 Encounter for Medicare annual wellness exam [Z0*09/25/2020 Osteopenia, senile [M85.80] 09/25/2020 AK (actinic keratosis) [L57.0] 05/19/2021 Medication management [Z79.899] 05/19/2021 Advance directive discussed with patient [Z71.8*11/20/2021 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] 12/10/2021 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 *11/30/2022 History of CVA (cerebrovascular accident) [Z86.*04/23/2024 Thrombocytopenia (HCC) [D69.6] 05/30/2024 Left hemiparesis (HCC) [G81.94] 05/30/2024 Dementia without behavioral disturbance (HCC) [*05/30/2024 Encounter Status:Closed by RUFINO ERICKSON on 05/31/24 Normal [facility] CNOVon 05-30-2024 CNOV Office Visit (FAMPWS ) KRYSTYNA KHANNA ([id number]) 1935 F Date Time Provider Department 05/30/24 11:00 AM RUFINO ERICKSONPWS During your visit today, we recorded the following information about you: Pulse Respiration Blood pressure 64/minute 20/minute 92/60 Rufino Erickson MD 05/30/2024 1:37 PM Signed Chief Complaint Patient presents with: [facility] F/U [facility] Krystyna Khanna is a 89 year old female who presents here today for 6 month follow up. Espinoza her son is with her today. Patient was admitted to [facility] on 04/20/2024 and discharged on 05/03/2024 to nursing home for rehab. 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 Known Hx of A. Fib and had been weaned off her Eliquis due to no issues in several years and getting nose bleeds. She was placed on Lipitor 40 mg a day, Aricept 5 mg a day, Eliquis 5 mg twice a day, metoprolol ER 50 mg a day and melatonin 3 mg QHS to aid with sleep. Patient is currently in [facility] nursing home: They just had a meeting this week and plan to keep her for another 4 weeks at this time. She is to /[facility] Dr. Choi for cardiology and Dr. Bonilla for neurology once she is discharged. Carotid US showed less hannah 50% stenosis bilaterally in the internal carotids. Patient has improved with Tx and continues to progress with improvement in her upper left arm and left lower extremity. Has help with walking and using a walker. Past medical history, appointments, medications, allergies reviewed. Previous Medical History PAST MEDICAL HISTORY Diagnosis Date Advance directive discussed with patient 11/20/2021 Packets given 11/20/2021 Atrial fibrillation (HCC) Bilateral knee pain 01/09/2010 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 11/30/2022 Elevated hemoglobin A1c 11/08/2017 Encounter for Medicare annual wellness exam 09/25/2020 Medical B eligibilty date 02/18/2000 Date of last exam 10/25/2020 Hepatitis thinks B History of congestive heart failure History of CVA (cerebrovascular accident) 04/23/2024 04/19/2024: Rt frontoparietal, Lt parietal History of heart attack Hypertension, essential 11/08/2017 Obesity, Class II, BMI 35-39.9 11/08/2017 Osteoarthritis Osteopenia, senile 09/25/2020 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 No further w/u needed and ok to stay on Xarelto Previous Surgical History PAST SURGICAL HISTORY Procedure Laterality Date 2D ECHO (EXEP) 10/28/2020 EF=60%, 1+ TImod alvarez dysf ARTHRP KNE CONDYLEANDPLATU MEDIALANDLAT COMPARTMENTS Left 11/19/2017 Knee replacement, total PAST SURGICAL HISTORY OF 2004 right knee replacement REMV CATARACT EXTRACAP,INSERT LENS Bilateral REVISION OF UPPER EYELID Bilateral 11/21/2021 TUBAL LIGATION Family History FAMILY HISTORY Problem Relation Age of Onset Heart Mother Heart Father Breast Cancer Maternal Aunt Diabetes Maternal Aunt Diabetes Other cousin Cancer Paternal Grandmother stomach Heart Sister Breast Cancer Sister Patient Allergies ALLERGIES Allergen Reactions Darvocet A500 [Prop* Unknown Propoxyphene Unknown Sulfa (Sulfonamide * Other: See Comments didn't feel right, nervousness Current Medications Current Outpatient Medications on File Prior to Visit Medication Sig benzonatate (TESSALON PERLES) 100 mg capsule Take 2 capsules by mouth three times a day as needed for cough. metoprolol succinate ER (TOPROL XL) 50 mg 24 hr tablet Take 1 tablet by mouth once daily. omeprazole (PRILOSEC) 20 mg capsule Take 1 capsule by mouth daily before breakfast. 1/2 hr before meal. albuterol HFA (PROVENTIL HFA, VENTOLIN HFA) 90 mcg/actuation inhaler Inhale 2 Puffs as instructed every 4 hours as needed for wheezing/shortness of breath. calcium Carbonate 300 mg, 750mg, (TUMS) 300 mg (750 mg) chewable tablet Take 1 tablet by mouth twice daily. doxylamine succinate (NITE TIME SLEEP AID ORAL) Take by mouth as directed. Taking Nature's Bounty Sleep 3 as directed loperamide HCl (IMODIUM) 2 mg tab Take 2 mg by mouth as needed. Cholecalciferol, Vitamin D3, (D3-2000) 50 mcg (2,000 unit) cap Take 1 capsule by mouth once daily. multivitamin tablet Take 1 tablet by mouth once daily. acetaminophen (TYLENOL) 500 mg tablet Take 500 mg by mouth every 6 hours as needed. DOCOSAHEXANOIC ACID/EPA (FISH OIL ORAL) Take 1,000 mg by mouth once daily. No current facility-administered medications on file prior to visit. Social History Social History Tobacco Use Smoking status: Never Smokeless tobacco: Never Vaping Use Vaping status: Never Used Substance Use Topics Alcohol use: No Drug use: No Review of Symptoms REVIEW OF SYSTEMS GENERAL: No weight loss, malaise or fevers RESPIRATORY: Negative for hemoptysis, (more content not included)... Normal [facility] Basic Metabolic Profile (BMP )on 05-01-2024 BUN/CRE 28.0 RATIO High 10-20 [facility] Comment on above: Performed By: #### L 500.2500, L100.0100 ####[facility] [address] [place], [address] CA,Total 9.4 mg/dL Normal 8.5-10.1 [facility] Comment on above: Performed By: #### L 500.2500, L100.0100 ####[facility] [address] [place], [address] Chloride [Moles/Vol] 100 mmol/L Normal 98-107 [facility] Comment on above: Performed By: #### L 500.2500, L100.0100 ####[facility] [address] [place], [address] CO2 [Moles/Vol] 31.0 mmol/L Normal 21.0-32.0 [facility] Comment on above: Performed By: #### L 500.2500, L100.0100 ####[facility] [address] [place], [address] Creatinine [Mass/Vol] 0.64 mg/dL Normal 0.55-1.02 [facility] Comment on above: Result Comment: The validity of the calculated GFR GFRAA in patients over70 years has not been determined. Clinical correlation isessential. Performed By: #### L 500.2500, L100.0100 ####[facility] [address] [place], [address] ECRCL 43.62 ml/min Normal [facility] Comment on above: Performed By: #### L 500.2500, L100.0100 ####[facility] [address] [place], [address] EST GFR - AA 112 mL/min Normal >60 [facility] Comment on above: Result Comment: Afri can Chinese GFR Calc Performed By: #### L 500.2500, L100.0100 ####[facility] [address] [place], [address] GAP 2 Low 5-15 [facility] Comment on above: Performed By: #### L 500.2500, L100.0100 ####[facility] [address] [place], [address] GFR/1.73 sq M.predicted among non-blacks MDRD (S/P/Bld) [Vol rate/Area] 93 mL/min/{1.73_m2} Normal >60 [facility] Comment on above: Result Comment: Non- GFR Calc Performed By: #### L 500.2500, L100.0100 ####[facility] [address] [place], [address] Glucose [Mass/Vol] 148 mg/dL High 74-106 [facility] Comment on above: Result Comment: Fast ing Glucose result greater than or equal to 126 mg/dLsuggests DIABETES MELLITUS per A.D.A. criteria. Performed By: #### L 500.2500, L100.0100 ####[facility] [address] [place], [address] Potassium [Moles/Vol] 3.8 mmol/L Normal 3.5-5.1 [facility] Comment on above: Performed By: #### L 500.2500, L100.0100 ####[facility] [address] [place], [address] Sodium [Moles/Vol] 133 mmol/L Low 136-145 [facility] Comment on above: Performed By: #### L 500.2500, L100.0100 ####[facility] [address] [place], [address] Urea nitrogen [Mass/Vol] 18 mg/dL Normal 7-18 [facility] Comment on above: Performed By: #### L 500.2500, L100.0100 ####[facility] [address] [place], [address] CBC W/Diff, Automatedon 04-19 PLT EST SLT DEC Normal ADEQ [facility] Comment on above: Order Comment: REDRA W. PREVIOUS SPECIMEN REJECTED DUE TOPLT CLUMPS. 05/01/24620 Brittani Diaz. Performed By: #### L 100.0100 ####[facility] [address] [place], [address] Absolute Neut Normal 2.0-7.7 [facility] Comment on above: Result Comment: This specimen has been REJECTED due to Laboratory criteria:Platelet Clumping.LAB has been notified of need of recollection.05/01/24620 Brittani Diaz Performed By: #### L 500.2500, L100.0100 ####[facility] [address] [place], [address] HCT Normal 37-47 [facility] Comment on above: Result Comment: This specimen has been REJECTED due to Laboratory criteria:Platelet Clumping.LAB has been notified of need of recollection.05/01/24620 Brittani Diaz Performed By: #### L 500.2500, L100.0100 ####[facility] [address] [place], [address] HGB Normal 12.0-15.0 [facility] Comment on above: Result Comment: This specimen has been REJECTED due to Laboratory criteria:Platelet Clumping.LAB has been notified of need of recollection.05/01/24620 Brittani Diaz Performed By: #### L 500.2500, L100.0100 ####[facility] [address] [facility] [address] MCH Normal 27.0-32.0 [facility] Comment on above: Result Comment: This specimen has been REJECTED due to Laboratory criteria:Platelet Clumping.LAB has been notified of need of recollection.05/01/24620 Brittani Diaz Performed By: #### L 500.2500, L100.0100 ####[facility] [address] [facility] [address] MCHC Normal 32-36 [facility] Comment on above: Result Comment: This specimen has been REJECTED due to Laboratory criteria:Platelet Clumping.LAB has been notified of need of recollection.05/01/24620 Brittani Diaz Performed By: #### L 500.2500, L100.0100 ####[facility] [address] [place], [address] MCV Normal 81-99 [facility] Comment on above: Result Comment: This specimen has been REJECTED due to Laboratory criteria:Platelet Clumping.LAB has been notified of need of recollection.05/01/24620 Brittani Diaz Performed By: #### L 500.2500, L100.0100 ####[facility] [address] [place], [address] NEUT% Normal 47-70 [facility] Comment on above: Result Comment: This specimen has been REJECTED due to Laboratory criteria:Platelet Clumping.LAB has been notified of need of recollection.05/01/24620 Brittani Diaz Performed By: #### L 500.2500, L100.0100 ####[facility] [address] [place], [address] PLT Normal 150-450 [facility] Comment on above: Result Comment: This specimen has been REJECTED due to Laboratory criteria:Platelet Clumping.LAB has been notified of need of recollection.05/01/24620 Brittani Diaz Performed By: #### L 500.2500, L100.0100 ####[facility] [address] [place], [address] RBC Normal 4.2-5.4 [facility] Comment on above: Result Comment: This specimen has been REJECTED due to Laboratory criteria:Platelet Clumping.LAB has been notified of need of recollection.05/01/24620 Brittani Diaz Performed By: #### L 500.2500, L100.0100 ####[facility] [address] [place], [address] RDW CV Normal 11.6-14.6 [facility] Comment on above: Result Comment: This specimen has been REJECTED due to Laboratory criteria:Platelet Clumping.LAB has been notified of need of recollection.05/01/24620 Brittani Diaz Performed By: #### L 500.2500, L100.0100 ####[facility] [address] [place], [address] RDW SD Normal 35.1-43.9 [facility] Comment on above: Result Comment: This specimen has been REJECTED due to Laboratory criteria:Platelet Clumping.LAB has been notified of need of recollection.05/01/24620 Brittani Diaz Performed By: #### L 500.2500, L100.0100 ####[facility] [address] [place], [address] WBC Normal 4.4-11.0 [facility] Comment on above: Result Comment: This specimen has been REJECTED due to Laboratory criteria:Platelet Clumping.LAB has been notified of need of recollection.05/01/24 0621 Brittani Diaz Performed By: #### L 500.2500, L100.0100 ####[facility] [address] [place], [address] PLATELET COUNTon 05-01-2024 Platelets (Bld) [#/Vol] 117 10*3/uL Low 150-450 [facility] Comment on above: Order Comment: TANRA Stallings. PREVIOUS SPECIMEN REJECTED DUE TOPLT CLUMPING. 05/01/24 1045 Joan Spencer. Performed By: #### L 100.0625 ####[facility] [address] [place], [address] PLT Normal 150-450 [facility] Comment on above: Result Comment: This specimen has been REJECTED due to Laboratory criteria:Platelet Clumping.KELLE has been notified of need of recollection.05/01/24 1044 Joan Spencer Performed By: #### L 100.0625 ####[facility] [address] [place], [address] Basic Metabolic Profile (BMP )on 04-28-2024 BUN Normal 7-18 [facility] Comment on above: Result Comment: Canc elled via OM: Order edited - Discontinuing original order Performed By: #### L 500.2500, L100.0500 ####[facility] [address] [place], [address] BUN/CRE Normal 10-20 [facility] Comment on above: Result Comment: Canc elled via OM: Order edited - Discontinuing original order Performed By: #### L 500.2500, L100.0500 ####[facility] [address] [place], [address] CA,Total Normal 8.5-10.1 [facility] Comment on above: Result Comment: Canc elled via OM: Order edited - Discontinuing original order Performed By: #### L 500.2500, L100.0500 ####[facility] [address] [place], [address] CL Normal 98-107 [facility] Comment on above: Result Comment: Canc elled via OM: Order edited - Discontinuing original order Performed By: #### L 500.2500, L100.0500 ####[facility] [address] [place], [address] CO2 Normal 21.0-32.0 [facility] Comment on above: Result Comment: Canc elled via OM: Order edited - Discontinuing original order Performed By: #### L 500.2500, L100.0500 ####[facility] [address] [place], [address] CREAT,SERUM Normal 0.55-1.02 [facility] Comment on above: Result Comment: Canc elled via OM: Order edited - Discontinuing original order Performed By: #### L 500.2500, L100.0500 ####[facility] [address] [place], [address] EST GFR Normal >60 [facility] Comment on above: Result Comment: Canc elled via OM: Order edited - Discontinuing original order Performed By: #### L 500.2500, L100.0500 ####[facility] [address] [place], [address] EST GFR - AA Normal >60 [facility] Comment on above: Result Comment: Canc elled via OM: Order edited - Discontinuing original order Performed By: #### L 500.2500, L100.0500 ####[facility] [address] [place], [address] GAP Normal 5-15 [facility] Comment on above: Result Comment: Canc elled via OM: Order edited - Discontinuing original order Performed By: #### L 500.2500, L100.0500 ####[facility] [address] [place], [address] GLU Normal 74-106 [facility] Comment on above: Result Comment: Canc elled via OM: Order edited - Discontinuing original order Performed By: #### L 500.2500, L100.0500 ####[facility] [address] [place], [address] Potassium Normal 3.5-5.1 [facility] Comment on above: Result Comment: Canc elled via OM: Order edited - Discontinuing original order Performed By: #### L 500.2500, L100.0500 ####[facility] [address] [place], [address] Basic Metabolic Profile (BMP) Normal 136-145 [facility] Comment on above: Result Comment: Canc elled via OM: Order edited - Discontinuing original order Performed By: #### L 500.2500, L100.0500 ####[facility] [address] [place], [address] CBC-Complete Blood Cnt No Di ffon 04-28-2024 HCT Normal 37-47 [facility] Comment on above: Result Comment: Canc elled via OM: Order edited - Discontinuing original order Performed By: #### L 500.2500, L100.0500 ####[facility] [address] [place], [address] HGB Normal 12.0-15.0 [facility] Comment on above: Result Comment: Canc elled via OM: Order edited - Discontinuing original order Performed By: #### L 500.2500, L100.0500 ####[facility] [address] [place], [address] MCH Normal 27.0-32.0 [facility] Comment on above: Result Comment: Canc elled via OM: Order edited - Discontinuing original order Performed By: #### L 500.2500, L100.0500 ####[facility] [address] [place], [address] MCHC Normal 32-36 [facility] Comment on above: Result Comment: Canc elled via OM: Order edited - Discontinuing original order Performed By: #### L 500.2500, L100.0500 ####[facility] [address] [place], [address] MCV Normal 81-99 [facility] Comment on above: Result Comment: Canc elled via OM: Order edited - Discontinuing original order Performed By: #### L 500.2500, L100.0500 ####[facility] [address] [place], [address] PLT Normal 150-450 [facility] Comment on above: Result Comment: Canc elled via OM: Order edited - Discontinuing original order Performed By: #### L 500.2500, L100.0500 ####[facility] [address] [place], [address] RBC Normal 4.2-5.4 [facility] Comment on above: Result Comment: Canc elled via OM: Order edited - Discontinuing original order Performed By: #### L 500.2500, L100.0500 ####[facility] [address] [place], [address] RDW CV Normal 11.6-14.6 [facility] Comment on above: Result Comment: Canc elled via OM: Order edited - Discontinuing original order Performed By: #### L 500.2500, L100.0500 ####[facility] [address] [place], [address] RDW SD Normal 35.1-43.9 [facility] Comment on above: Result Comment: Canc elled via OM: Order edited - Discontinuing original order Performed By: #### L 500.2500, L100.0500 ####[facility] [address] [place], [address] WBC Normal 4.4-11.0 [facility] Comment on above: Result Comment: Canc elled via OM: Order edited - Discontinuing original order Performed By: #### L 500.2500, L100.0500 ####[facility] [address] [place], [address] RESPIRATORY PANEL MOLECULARo n 04-28-2024 RP PANEL Normal [facility] Comment on above: Performed By: #### M 100.638 ####[facility] [address] [place], [address] Basic Metabolic Profile (BMP )on 04-27-2024 BUN/CRE 18.0 RATIO Normal 10-20 [facility] Comment on above: Performed By: #### L 100.4500, L500.2500, L100.0500 ####[facility] [address] [place], [address] CA,Total 9.2 mg/dL Normal 8.5-10.1 [facility] Comment on above: Performed By: #### L 100.4500, L500.2500, L100.0500 ####[facility] [address] [place], [address] Chloride [Moles/Vol] 100 mmol/L Normal 98-107 [facility] Comment on above: Performed By: #### L 100.4500, L500.2500, L100.0500 ####[facility] [address] [place], [address] CO2 [Moles/Vol] 31.0 mmol/L Normal 21.0-32.0 [facility] Comment on above: Performed By: #### L 100.4500, L500.2500, L100.0500 ####[facility] [address] [place], [address] Creatinine [Mass/Vol] 0.78 mg/dL Normal 0.55-1.02 [facility] Comment on above: Result Comment: The validity of the calculated GFR GFRAA in patients over70 years has not been determined. Clinical correlation isessential. Performed By: #### L 100.4500, L500.2500, L100.0500 ####[facility] [address] [place], [address] ECRCL 43.62 ml/min Normal [facility] Comment on above: Performed By: #### L 100.4500, L500.2500, L100.0500 ####[facility] [address] [place], [address] EST GFR - AA 90 mL/min Normal >60 [facility] Comment on above: Result Comment: Afri can Chinese GFR Calc Performed By: #### L 100.4500, L500.2500, L100.0500 ####[facility] [address] [place], [address] GAP 5 Normal 5-15 [facility] Comment on above: Performed By: #### L 100.4500, L500.2500, L100.0500 ####[facility] [address] [place], [address] GFR/1.73 sq M.predicted among non-blacks MDRD (S/P/Bld) [Vol rate/Area] 74 mL/min/{1.73_m2} Normal >60 [facility] Comment on above: Result Comment: Non- GFR Calc Performed By: #### L 100.4500, L500.2500, L100.0500 ####[facility] [address] [place], [address] Glucose [Mass/Vol] 142 mg/dL High 74-106 [facility] Comment on above: Result Comment: Fast ing Glucose result greater than or equal to 126 mg/dLsuggests DIABETES MELLITUS per A.D.A. criteria. Performed By: #### L 100.4500, L500.2500, L100.0500 ####[facility] [address] [place], [address] Potassium [Moles/Vol] 3.7 mmol/L Normal 3.5-5.1 [facility] Comment on above: Performed By: #### L 100.4500, L500.2500, L100.0500 ####[facility] [address] [place], [address] Sodium [Moles/Vol] 136 mmol/L Normal 136-145 [facility] Comment on above: Performed By: #### L 100.4500, L500.2500, L100.0500 ####[facility] [address] [place], [address] Urea nitrogen [Mass/Vol] 14 mg/dL Normal 7-18 [facility] Comment on above: Performed By: #### L 100.4500, L500.2500, L100.0500 ####[facility] [address] [place], [address] CBC-Complete Blood Cnt No Di ffon 04-27-2024 Erythrocyte distribution width (RBC) [Ratio] 12.3 % Normal 11.6-14.6 [facility] Comment on above: Performed By: #### L 100.4500, L500.2500, L100.0500 ####[facility] [address] [place], [address] Hematocrit (Bld) [Volume fraction] 37.9 % Normal 37-47 [facility] Comment on above: Performed By: #### L 100.4500, L500.2500, L100.0500 ####[facility] [address] [place], [address] Hemoglobin (Bld) [Mass/Vol] 12.5 g/dL Normal 12.0-15.0 [facility] Comment on above: Performed By: #### L 100.4500, L500.2500, L100.0500 ####[facility] [address] [place], [address] MCH (RBC) [Entitic mass] 30.9 pg Normal 27.0-32.0 [facility] Comment on above: Performed By: #### L 100.4500, L500.2500, L100.0500 ####[facility] [address] [place], [address] MCHC (RBC) [Mass/Vol] 33.0 g/dL Normal 32-36 [facility] Comment on above: Performed By: #### L 100.4500, L500.2500, L100.0500 ####[facility] [address] [place], [address] MCV (RBC) [Entitic vol] 93.6 fL Normal 81-99 [facility] Comment on above: Performed By: #### L 100.4500, L500.2500, L100.0500 ####[facility] [address] [place], [address] Platelet mean volume (Bld) [Entitic vol] 11.4 fL Normal 6.2-12.0 [facility] Comment on above: Performed By: #### L 100.4500, L500.2500, L100.0500 ####[facility] [address] [place], [address] Platelets (Bld) [#/Vol] 92 10*3/uL Low 150-450 [facility] Comment on above: Performed By: #### L 100.4500, L500.2500, L100.0500 ####[facility] [address] [place], [address] RBC (Bld) [#/Vol] 4.05 10*6/uL Low 4.2-5.4 [facility] Comment on above: Performed By: #### L 100.4500, L500.2500, L100.0500 ####[facility] [address] [place], [address] RDW SD 42.1 fl Normal 35.1-43.9 [facility] Comment on above: Performed By: #### L 100.4500, L500.2500, L100.0500 ####[facility] [address] [place], [address] WBC (Bld) [#/Vol] 11.3 10*3/uL High 4.4-11.0 [facility] Comment on above: Performed By: #### L 100.4500, L500.2500, L100.0500 ####[facility] [address] [place], [address] COVID 19 AG RAPID (XOCHITL Ly)on 04-27-2024 SARS-CoV-2 (COVID-19) RNA LEYDA+probe Ql (Unsp spec) Normal [facility] Comment on above: Performed By: #### M 100.505 ####[facility] [address] [place], [address] Chest PA and Lateralon 04-27 Chest PA and Lateral Normal [facility] Differential Commenton 04-27 SMEAR COMMENT SCANNED Normal [facility] Comment on above: Result Comment: THRO MBOCYTOPENIA NOTED Performed By: #### L 100.4500, L500.2500, L100.0500 ####[facility] [address] [place], [address] M8200.1000on 04-27-2024 M8200.1000 Normal Reference Ran ge = Negative MRSA DNA Nose Ql LEYDA+probe GeneXpert Instrument, PCR method MRSA PCR MRSA NEGATIVE Normal [facility] Comment on above: Performed By: #### M 8200.1000 ####[facility] [address] [place], [address] Urinalysis, Completeon 04-27 BACTERIA 0 SEEN Normal None Seen [facility] Comment on above: Order Comment: MALATHI TER SPECIMEN Performed By: #### L 400.0001 ####[facility] [address] [place], [address] EPI,SQUAMOUS 0 SEEN Normal 5-10 [facility] Comment on above: Order Comment: MALATHI TER SPECIMEN Performed By: #### L 400.0001 ####[facility] [address] [place], [address] Mucus Ql (Urine sed) 0 SEEN Normal [facility] Comment on above: Order Comment: MALATHI TER SPECIMEN Performed By: #### L 400.0001 ####[facility] [address] [place], [address] RBC 0 SEEN Normal 0-5 [facility] Comment on above: Order Comment: MALATHI TER SPECIMEN Performed By: #### L 400.0001 ####[facility] [address] [place], [address] WBC 0 SEEN Normal 0-5 [facility] Comment on above: Order Comment: MALATHI TER SPECIMEN Performed By: #### L 400.0001 ####[facility] [address] [place], [address] Hemoglobin A1con 04-25-2024 HbA1c (Bld) [Mass fraction] 6.3 % High 3.8-5.6 [facility] Comment on above: Result Comment: Norm al < 5.7 % Prediabetic 5.7 - 6.4 % Diabetic >or= 6.5 % Please note range changes. Performed By: #### L 501.9985 ####[facility] [address] [place], [address] CBC W/Diff, Automatedon - PATH REV Reviewed Normal [facility] Comment on above: Result Comment: Aarti Jimenez M.D. 04/21/24 AMENDED REPORT 04/21/24 1313 PATH REV previously reported as: August Performed By: #### L 100.0100, L500.2500 ####[facility] [address] [place], [address] PLT EST SLT DEC Normal ADEQ [facility] Comment on above: Performed By: #### L 501.5200, L100.0100, L500.4050, L501.2300 ####[facility] [address] [place], [address] Comprehensive Metabolic Prof ilon 04-21-2024 Albumin [Mass/Vol] 3.3 g/dL Normal 3.2-5.0 [facility] Comment on above: Performed By: #### L 501.5200, L100.0100, L500.4050, L501.2300 ####[facility] [address] [place], [address] Albumin/Globulin [Mass ratio] 1.0 {ratio} Normal 0.9-2.4 [facility] Comment on above: Performed By: #### L 501.5200, L100.0100, L500.4050, L501.2300 ####[facility] [address] [place], [address] ALK P 62 U/L Normal 45-117 [facility] Comment on above: Performed By: #### L 501.5200, L100.0100, L500.4050, L501.2300 ####[facility] [address] [place], [address] ALT [Catalytic activity/Vol] 12 U/L Low 13-56 [facility] Comment on above: Performed By: #### L 501.5200, L100.0100, L500.4050, L501.2300 ####[facility] [address] [place], [address] AST [Catalytic activity/Vol] 16 U/L Normal 15-37 [facility] Comment on above: Performed By: #### L 501.5200, L100.0100, L500.4050, L501.2300 ####[facility] [address] [place], [address] Bilirubin [Mass/Vol] 1.20 mg/dL High 0.20-1.00 [facility] Comment on above: Result Comment: For patients on eltrombopag therapy, use of Dimension Fulda TBIL is not recommended. Performed By: #### L 501.5200, L100.0100, L500.4050, L501.2300 ####[facility] [address] [place], [address] BUN/CRE 14.5 RATIO Normal 10-20 [facility] Comment on above: Performed By: #### L 501.5200, L100.0100, L500.4050, L501.2300 ####[facility] [address] [place], [address] CA,Total 9.2 mg/dL Normal 8.5-10.1 [facility] Comment on above: Performed By: #### L 501.5200, L100.0100, L500.4050, L501.2300 ####[facility] [address] [place], [address] Chloride [Moles/Vol] 101 mmol/L Normal 98-107 [facility] Comment on above: Performed By: #### L 501.5200, L100.0100, L500.4050, L501.2300 ####[facility] [address] [place], [address] CO2 [Moles/Vol] 29.0 mmol/L Normal 21.0-32.0 [facility] Comment on above: Performed By: #### L 501.5200, L100.0100, L500.4050, L501.2300 ####[facility] [address] [place], [address] Creatinine [Mass/Vol] 0.83 mg/dL Normal 0.55-1.02 [facility] Comment on above: Result Comment: The validity of the calculated GFR GFRAA in patients over70 years has not been determined. Clinical correlation isessential. Performed By: #### L 501.5200, L100.0100, L500.4050, L501.2300 ####[facility] [address] [place], [address] ECRCL 41.98 ml/min Normal [facility] Comment on above: Performed By: #### L 501.5200, L100.0100, L500.4050, L501.2300 ####[facility] [address] [place], [address] EST GFR - AA 84 mL/min Normal >60 [facility] Comment on above: Result Comment: Afri can Chinese GFR Calc Performed By: #### L 501.5200, L100.0100, L500.4050, L501.2300 ####[facility] [address] [place], [address] GAP 6 Normal 5-15 [facility] Comment on above: Performed By: #### L 501.5200, L100.0100, L500.4050, L501.2300 ####[facility] [address] [place], [address] GFR/1.73 sq M.predicted among non-blacks MDRD (S/P/Bld) [Vol rate/Area] 69 mL/min/{1.73_m2} Normal >60 [facility] Comment on above: Result Comment: Non- GFR Calc Performed By: #### L 501.5200, L100.0100, L500.4050, L501.2300 ####[facility] [address] [place], [address] Globulin (S) [Mass/Vol] 3.3 g/dL Normal 2.2-4.2 [facility] Comment on above: Performed By: #### L 501.5200, L100.0100, L500.4050, L501.2300 ####[facility] [address] [place], [address] Glucose [Mass/Vol] 167 mg/dL High 74-106 [facility] Comment on above: Result Comment: Fast ing Glucose result greater than or equal to 126 mg/dLsuggests DIABETES MELLITUS per A.D.A. criteria. Performed By: #### L 501.5200, L100.0100, L500.4050, L501.2300 ####[facility] [address] [place], [address] Potassium [Moles/Vol] 3.8 mmol/L Normal 3.5-5.1 [facility] Comment on above: Performed By: #### L 501.5200, L100.0100, L500.4050, L501.2300 ####[facility] [address] [place], [address] Sodium [Moles/Vol] 136 mmol/L Normal 136-145 [facility] Comment on above: Performed By: #### L 501.5200, L100.0100, L500.4050, L501.2300 ####[facility] [address] [place], [address] T PROT 6.6 g/dL Normal 6.4-8.2 [facility] Comment on above: Performed By: #### L 501.5200, L100.0100, L500.4050, L501.2300 ####[facility] [address] [place], [address] Urea nitrogen [Mass/Vol] 12 mg/dL Normal 7-18 [facility] Comment on above: Performed By: #### L 501.5200, L100.0100, L500.4050, L501.2300 ####[facility] [address] [place], [address] Magnesiumon 04-21-2024 Magnesium [Mass/Vol] 2.1 mg/dL Normal 1.6-2.6 [facility] Comment on above: Performed By: #### L 501.5200, L100.0100, L500.4050, L501.2300 ####[facility] [address] [place], [address] Phosphoruson 04-21-2024 Phosphate [Mass/Vol] 3.0 mg/dL Normal 2.5-4.9 [facility] Comment on above: Performed By: #### L 501.5200, L100.0100, L500.4050, L501.2300 ####[facility] [address] [place], [address] Basic Metabolic Profile (BMP )on 04-20-2024 BUN/CRE 17.9 RATIO Normal 10-20 [facility] Comment on above: Performed By: #### L 100.0100, L500.2500 ####[facility] [address] [place], [address] CA,Total 8.7 mg/dL Normal 8.5-10.1 [facility] Comment on above: Performed By: #### L 100.0100, L500.2500 ####[facility] [address] [place], [address] Chloride [Moles/Vol] 101 mmol/L Normal 98-107 [facility] Comment on above: Performed By: #### L 100.0100, L500.2500 ####[facility] [address] [place], [address] CO2 [Moles/Vol] 30.0 mmol/L Normal 21.0-32.0 [facility] Comment on above: Performed By: #### L 100.0100, L500.2500 ####[facility] [address] [place], [address] Creatinine [Mass/Vol] 0.78 mg/dL Normal 0.55-1.02 [facility] Comment on above: Result Comment: The validity of the calculated GFR GFRAA in patients over70 years has not been determined. Clinical correlation isessential. Performed By: #### L 100.0100, L500.2500 ####[facility] [address] [place], [address] ECRCL 43.43 ml/min Normal [facility] Comment on above: Performed By: #### L 100.0100, L500.2500 ####[facility] [address] [place], [address] EST GFR - AA 89 mL/min Normal >60 [facility] Comment on above: Result Comment: Afri can Chinese GFR Calc Performed By: #### L 100.0100, L500.2500 ####[facility] [address] [place], [address] GAP 6 Normal 5-15 [facility] Comment on above: Performed By: #### L 100.0100, L500.2500 ####[facility] [address] [place], [address] GFR/1.73 sq M.predicted among non-blacks MDRD (S/P/Bld) [Vol rate/Area] 74 mL/min/{1.73_m2} Normal >60 [facility] Comment on above: Result Comment: Non- GFR Calc Performed By: #### L 100.0100, L500.2500 ####[facility] [facility] [address] [place], [address] Glucose [Mass/Vol] 129 mg/dL High 74-106 [facility] Comment on above: Result Comment: Fast ing Glucose result greater than or equal to 126 mg/dLsuggests DIABETES MELLITUS per A.D.A. criteria. Performed By: #### L 100.0100, L500.2500 ####[facility] [address] [place], [address] Potassium [Moles/Vol] 3.7 mmol/L Normal 3.5-5.1 [facility] Comment on above: Performed By: #### L 100.0100, L500.2500 ####[facility] [address] [place], [address] Sodium [Moles/Vol] 137 mmol/L Normal 136-145 [facility] Comment on above: Performed By: #### L 100.0100, L500.2500 ####[facility] [address] [place], [address] Urea nitrogen [Mass/Vol] 14 mg/dL Normal 7-18 [facility] Comment on above: Performed By: #### L 100.0100, L500.2500 ####[facility] [address] [place], [address] Discharge Instructionon Discharge Instruction Normal [facility] Carotid Duplex Ultrasoundon 04-19-2024 Carotid Duplex Ultrasound Normal [facility] Lipid Profileon 04-19-2024 Cholesterol [Mass/Vol] 133 mg/dL Normal 200 [facility] Comment on above: Order Comment: Comme nts: NPO at [place] prior to lipid panel Result Comment: <200 mg/dL Desirable 200-240 mg/dL Borderline >240 mg/dL High Risk Performed By: #### L 500.4100 ####[facility] [address] [place], [address] Cholesterol in HDL [Mass/Vol] 66 mg/dL Normal [facility] Comment on above: Order Comment: Comme nts: NPO at [place] prior to lipid panel Result Comment: The drugs N-Acetylcysteine and Metamizole may falselydepress this assay. Reference Range HDL <40 mg/dL Low HDL Cholesterol HDL >or= 60 mg/dL High HDL Cholesterol Performed By: #### L 500.4100 ####[facility] [address] [place], [address] Cholesterol in LDL [Mass/Vol] 46 mg/dL Normal 0-130 [facility] Comment on above: Order Comment: Comme nts: NPO at [place] prior to lipid panel Performed By: #### L 500.4100 ####[facility] [address] [place], [address] Cholesterol in VLDL [Mass/Vol] 21 mg/dL Normal 5-40 [facility] Comment on above: Order Comment: Comme nts: NPO at [place] prior to lipid panel Performed By: #### L 500.4100 ####[facility] [address] [place], [address] Triglyceride [Mass/Vol] 106 mg/dL Normal [facility] Comment on above: Order Comment: Comme nts: NPO at [place] prior to lipid panel Result Comment: The drugs N-Acetylcysteine and Metamizole may falselydepress this assay.Serum Triglycerides Reference Interval Normal <150 mg/dL Borderline high 150 - 199 mg/dL High 200 - 499 mg/dL Very High > or = 500 mg/dL Performed By: #### L 500.4100 ####[facility] [address] [place], [address] MR/CON.PCM.NEon 04-19-2024 MR/CON.PCM.NE Normal [facility] 12 Lead EKGon 04-18-2024 12 Lead EKG Normal [facility] Brain without Contraston Brain without Contrast Normal [facility] CBC-Complete Blood Cnt No Di ffon 12-31-2024 Erythrocyte distribution width (RBC) [Ratio] 12.3 % Normal 11.6-14.6 [facility] Comment on above: Performed By: #### L 100.4500, L501.4020, L500.4050, L100.0500 ####[facility] [address] [place], [address] Hematocrit (Bld) [Volume fraction] 43.2 % Normal 37-47 [facility] Comment on above: Performed By: #### L 100.4500, L501.4020, L500.4050, L100.0500 ####[facility] [address] [place], [address] Hemoglobin (Bld) [Mass/Vol] 14.1 g/dL Normal 12.0-15.0 [facility] Comment on above: Performed By: #### L 100.4500, L501.4020, L500.4050, L100.0500 ####[facility] [address] [place], [address] MCH (RBC) [Entitic mass] 30.7 pg Normal 27.0-32.0 [facility] Comment on above: Performed By: #### L 100.4500, L501.4020, L500.4050, L100.0500 ####[facility] [address] [place], [address] MCHC (RBC) [Mass/Vol] 32.6 g/dL Normal 32-36 [facility] Comment on above: Performed By: #### L 100.4500, L501.4020, L500.4050, L100.0500 ####[facility] [address] [place], [address] MCV (RBC) [Entitic vol] 94.1 fL Normal 81-99 [facility] Comment on above: Performed By: #### L 100.4500, L501.4020, L500.4050, L100.0500 ####[facility] [address] [place], [address] Platelet mean volume (Bld) [Entitic vol] 10.5 fL Normal 6.2-12.0 [facility] Comment on above: Performed By: #### L 100.4500, L501.4020, L500.4050, L100.0500 ####[facility] [address] [place], [address] Platelets (Bld) [#/Vol] 81 10*3/uL Low 150-450 [facility] Comment on above: Performed By: #### L 100.4500, L501.4020, L500.4050, L100.0500 ####[facility] [address] [place], [address] RBC (Bld) [#/Vol] 4.59 10*6/uL Normal 4.2-5.4 [facility] Comment on above: Performed By: #### L 100.4500, L501.4020, L500.4050, L100.0500 ####[facility] [address] [place], [address] RDW SD 42.5 fl Normal 35.1-43.9 [facility] Comment on above: Performed By: #### L 100.4500, L501.4020, L500.4050, L100.0500 ####[facility] [address] [place], [address] WBC (Bld) [#/Vol] 8.0 10*3/uL Normal 4.4-11.0 [facility] Comment on above: Performed By: #### L 100.4500, L501.4020, L500.4050, L100.0500 ####[facility] [address] [place], [address] CNPDede 04-18-2024 CNPN Telephone (HCSIND) KRYSTYNA KHANNA ([id number]) 1935 F Date Time Provider Department 04/18/24 TRACIE PARKER During your visit today, we recorded the following information about you: rTacie Parker LPN 04/18/2024 9:49 AM Signed Lulu Staton APRN.KRISTINE Thank you for the referral. Our first available date for a therapy start of care is 04/25/24. Please let us know if this is acceptable for you and the patient. If so, we will process the referral. If this date is not acceptable, we recommend referring this patient to another home health agency. Thank you , Tracie Parker LPN Below are two agencies that offer similar services in the patient's area. [facility] (Home Health) [address] [place] [phone] [facility] [address] [place] [id number] Tracie Parker LPN 04/18/2024 5:06 PM Signed Referral discarded. Patient re-admitted to [facility]. CM will have to send referral for C if needed at d/c Allergies As of Date: 04/18/2024 Noted Allergy Reaction DARVOCET A500 (PROPOXYPHENE N-APOLINAR*04/26/2012 16 - Unknown PROPOXYPHENE 07/03/2022 16 - Unknown SULFA (SULFONAMIDE ANTIBIOTICS) 04/26/2012 14 - Other: See Comments Comments: didn't feel right, nervousness Date Reviewed: 04/17/2024 Reviewed by: Antoinette Serrano MA - Fully Assessed Reason for Visit: Home Care [4073] Cmt: Delay SOC Prescriptions as of 04/18/2024 - benzonatate (TESSALON PERLES) 100 mg capsule Take 2 capsules by mouth three times a day as needed for cough. - metoprolol succinate ER (TOPROL XL) 50 mg 24 hr tablet Take 1 tablet by mouth once daily. - omeprazole (PRILOSEC) 20 mg capsule Take 1 capsule by mouth daily before breakfast. 1/2 hr before meal. - albuterol HFA (PROVENTIL HFA, VENTOLIN HFA) 90 mcg/actuation inhaler Inhale 2 Puffs as instructed every 4 hours as needed for wheezing/shortness of breath. - calcium Carbonate 300 mg, 750mg, (TUMS) 300 mg (750 mg) chewable tablet Take 1 tablet by mouth twice daily. - doxylamine succinate (NITE TIME SLEEP AID ORAL) Take by mouth as directed. Taking Nature's Bounty Sleep 3 as directed - loperamide HCl (IMODIUM) 2 mg tab Take 2 mg by mouth as needed. - Cholecalciferol, Vitamin D3, (D3-2000) 50 mcg (2,000 unit) cap Take 1 capsule by mouth once daily. - multivitamin tablet Take 1 tablet by mouth once daily. - acetaminophen (TYLENOL) 500 mg tablet Take 500 mg by mouth every 6 hours as needed. - DOCOSAHEXANOIC ACID/EPA (FISH OIL ORAL) Take 1,000 mg by mouth once daily. Problem List As Of Date 04/18/2024 Noted Resolved Bilateral knee pain [M25.561, M25.562] 01/09/2010 Osteoarthritis [M19.90] 11/01/2017 Hypertension, essential [I10] 11/08/2017 Atrial fibrillation (HCC) [I48.91] 11/08/2017 Hepatitis [K75.9] 11/08/2017 Elevated hemoglobin A1c [R73.09] 11/08/2017 Obesity, Class II, BMI 35-39.9 [E66.812] 11/08/2017 Arthritis of knee [M17.10] 11/19/2017 12/23/2017 Primary osteoarthritis of left knee [M17.12] 11/24/2017 12/23/2017 Encounter for Medicare annual wellness exam [Z0*09/25/2020 Osteopenia, senile [M85.80] 09/25/2020 AK (actinic keratosis) [L57.0] 05/19/2021 Medication management [Z79.899] 05/19/2021 Advance directive discussed with patient [Z71.8*11/20/2021 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 no Are you agreeable to [facility] services? yes What address will we be seeing you at? [address] [place], [place] [id number] Do you have any upcoming appointments or things we need to schedule around? No appointment , but may go the ER Do you have a teachable CG or can you manage your care independently? yes Who? Espinoza Khanna (Son) Have you received the flu shot? no If so, when and where? na Allergies As of Date: 04/18/2024 Noted Allergy Reaction DARVOCET A500 (PROPOXYPHENE N-APOLINAR*04/26/2012 16 - Unknown PROPOXYPHENE 07/03/2022 16 - Unknown SULFA (SULFONAMIDE ANTIBIOTICS) 04/26/2012 14 - Other: See Comments Comments: didn't feel right, nervousness Date Reviewed: 04/17/2024 Reviewed by: Antoinette Serrano MA - Fully Assessed Reason for Visit: Home Care [4073] Cmt: Confirmation Call Prescriptions as of 04/18/2024 - benzonatate (TESSALON PERLES) 100 mg capsule Take 2 capsules by mouth three times a day as needed for cough. - metoprolol succinate ER (TOPROL XL) 50 mg 24 hr tablet Take 1 tablet by mouth once daily. - omeprazole (PRILOSEC) 20 mg capsule Take 1 capsule by mouth daily before breakfast. 1/2 hr before meal. - albuterol HFA (PROVENTIL HFA, VENTOLIN HFA) 90 mcg/actuation inhaler Inhale 2 Puffs as instructed every 4 hours as needed for wheezing/shortness of breath. - calcium Carbonate 300 mg, 750mg, (TUMS) 300 mg (750 mg) chewable tablet Take 1 tablet by mouth twice daily. - doxylamine succinate (NITE TIME SLEEP AID ORAL) Take by mouth as directed. Taking Nature's Bounty Sleep 3 as directed - loperamide HCl (IMODIUM) 2 mg tab Take 2 mg by mouth as needed. - Cholecalciferol, Vitamin D3, (D3-2000) 50 mcg (2,000 unit) cap Take 1 capsule by mouth once daily. - multivitamin tablet Take 1 tablet by mouth once daily. - acetaminophen (TYLENOL) 500 mg tablet Take 500 mg by mouth every 6 hours as needed. - DOCOSAHEXANOIC ACID/EPA (FISH OIL ORAL) Take 1,000 mg by mouth once daily. Problem List As Of Date 04/18/2024 Noted Resolved Bilateral knee pain [M25.561, M25.562] 01/09/2010 Osteoarthritis [M19.90] 11/01/2017 Hypertension, essential [I10] 11/08/2017 Atrial fibrillation (HCC) [I48.91] 11/08/2017 Hepatitis [K75.9] 11/08/2017 Elevated hemoglobin A1c [R73.09] 11/08/2017 Obesity, Class II, BMI 35-39.9 [E66.812] 11/08/2017 Arthritis of knee [M17.10] 11/19/2017 12/23/2017 Primary osteoarthritis of left knee [M17.12] 11/24/2017 12/23/2017 Encounter for Medicare annual wellness exam [Z0*09/25/2020 Osteopenia, senile [M85.80] 09/25/2020 AK (actinic keratosis) [L57.0] 05/19/2021 Medication management [Z79.899] 05/19/2021 Advance directive discussed with patient [Z71.8*11/20/2021 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 Espinoza reports that patient was able to stand and transfer and walk yesterday with a walker. Today, he reports that patient is not able to bear any weight and he is not able to transfer her. He reports her as like a wet noodle and just collapses. Espinoza feels that patient needs to go to the ER as he is not rosa to assist patient to transfer. Agree with Espinoza since condition is declining rapidly. Espinoza reports he is going to call the squad. Nothing further needed. Closing TE. Son wanted Lulu to know patient is going back to ER. Nikia Pineda RN Allergies As of Date: 04/18/2024 Noted Allergy Reaction DARVOCET A500 (PROPOXYPHENE N-APOLINAR*04/26/2012 16 - Unknown PROPOXYPHENE 07/03/2022 16 - Unknown SULFA (SULFONAMIDE ANTIBIOTICS) 04/26/2012 14 - Other: See Comments Comments: didn't feel right, nervousness Date Reviewed: 04/17/2024 Reviewed by: Antoinette Serrano MA - Fully Assessed Reason for Visit: Patient Update [1234] Prescriptions as of 04/18/2024 - benzonatate (TESSALON PERLES) 100 mg capsule Take 2 capsules by mouth three times a day as needed for cough. - metoprolol succinate ER (TOPROL XL) 50 mg 24 hr tablet Take 1 tablet by mouth once daily. - omeprazole (PRILOSEC) 20 mg capsule Take 1 capsule by mouth daily before breakfast. 1/2 hr before meal. - albuterol HFA (PROVENTIL HFA, VENTOLIN HFA) 90 mcg/actuation inhaler Inhale 2 Puffs as instructed every 4 hours as needed for wheezing/shortness of breath. - calcium Carbonate 300 mg, 750mg, (TUMS) 300 mg (750 mg) chewable tablet Take 1 tablet by mouth twice daily. - doxylamine succinate (NITE TIME SLEEP AID ORAL) Take by mouth as directed. Taking Nature's Bounty Sleep 3 as directed - loperamide HCl (IMODIUM) 2 mg tab Take 2 mg by mouth as needed. - Cholecalciferol, Vitamin D3, (D3-2000) 50 mcg (2,000 unit) cap Take 1 capsule by mouth once daily. - multivitamin tablet Take 1 tablet by mouth once daily. - acetaminophen (TYLENOL) 500 mg tablet Take 500 mg by mouth every 6 hours as needed. - DOCOSAHEXANOIC ACID/EPA (FISH OIL ORAL) Take 1,000 mg by mouth once daily. Problem List As Of Date 04/18/2024 Noted Resolved Bilateral knee pain [M25.561, M25.562] 01/09/2010 Osteoarthritis [M19.90] 11/01/2017 Hypertension, essential [I10] 11/08/2017 Atrial fibrillation (HCC) [I48.91] 11/08/2017 Hepatitis [K75.9] 11/08/2017 Elevated hemoglobin A1c [R73.09] 11/08/2017 Obesity, Class II, BMI 35-39.9 [E66.812] 11/08/2017 Arthritis of knee [M17.10] 11/19/2017 12/23/2017 Primary osteoarthritis of left knee [M17.12] 11/24/2017 12/23/2017 Encounter for Medicare annual wellness exam [Z0*09/25/2020 Osteopenia, senile [M85.80] 09/25/2020 AK (actinic keratosis) [L57.0] 05/19/2021 Medication management [Z79.899] 05/19/2021 Advance directive discussed with patient [Z71.8*11/20/2021 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] 12/10/2021 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 *11/30/2022 Encounter Status:Closed by NIKIA PINEDA on 04/18/24 Normal [facility] CTA Head AND Neck W/ Contras ton 04-18-2024 CTA Head AND Neck W/ Contrast Normal [facility] Chest 1 View (Portable)on Chest 1 View (Portable) Normal [facility] Comprehensive Metabolic Prof ilon 04-18-2024 Albumin [Mass/Vol] 3.4 g/dL Normal 3.2-5.0 [facility] Comment on above: Order Comment: 'TROP ' Serial specimen #1, #2 or #3: 1 Performed By: #### L 100.4500, L501.4020, L500.4050, L100.0500 ####[facility] [address] [facility] [place], [address] Albumin/Globulin [Mass ratio] 0.9 {ratio} Normal 0.9-2.4 [facility] Comment on above: Order Comment: 'TROP ' Serial specimen #1, #2 or #3: 1 Performed By: #### L 100.4500, L501.4020, L500.4050, L100.0500 ####[facility] [address] [place], [address] ALK P 61 U/L Normal 45-117 [facility] Comment on above: Order Comment: 'TROP ' Serial specimen #1, #2 or #3: 1 Performed By: #### L 100.4500, L501.4020, L500.4050, L100.0500 ####[facility] [address] [place], [address] ALT [Catalytic activity/Vol] 14 U/L Normal 13-56 [facility] Comment on above: Order Comment: 'TROP ' Serial specimen #1, #2 or #3: 1 Performed By: #### L 100.4500, L501.4020, L500.4050, L100.0500 ####[facility] [address] [place], [address] AST [Catalytic activity/Vol] 18 U/L Normal 15-37 [facility] Comment on above: Order Comment: 'TROP ' Serial specimen #1, #2 or #3: 1 Performed By: #### L 100.4500, L501.4020, L500.4050, L100.0500 ####[facility] [address] [place], [address] Bilirubin [Mass/Vol] 1.30 mg/dL High 0.20-1.00 [facility] Comment on above: Order Comment: 'TROP ' Serial specimen #1, #2 or #3: 1 Result Comment: For patients on eltrombopag therapy, use of Dimension Fulda TBIL is not recommended. Performed By: #### L 100.4500, L501.4020, L500.4050, L100.0500 ####[facility] [address] [place], [address] BUN/CRE 15.4 RATIO Normal 10-20 [facility] Comment on above: Order Comment: 'TROP ' Serial specimen #1, #2 or #3: 1 Performed By: #### L 100.4500, L501.4020, L500.4050, L100.0500 ####[facility] [address] [place], [address] CA,Total 8.8 mg/dL Normal 8.5-10.1 [facility] Comment on above: Order Comment: 'TROP ' Serial specimen #1, #2 or #3: 1 Performed By: #### L 100.4500, L501.4020, L500.4050, L100.0500 ####[facility] [address] [place], [address] Chloride [Moles/Vol] 101 mmol/L Normal 98-107 [facility] Comment on above: Order Comment: 'TROP ' Serial specimen #1, #2 or #3: 1 Performed By: #### L 100.4500, L501.4020, L500.4050, L100.0500 ####[facility] [address] [place], [address] CO2 [Moles/Vol] 30.0 mmol/L Normal 21.0-32.0 [facility] Comment on above: Order Comment: 'TROP ' Serial specimen #1, #2 or #3: 1 Performed By: #### L 100.4500, L501.4020, L500.4050, L100.0500 ####[facility] [address] [place], [address] Creatinine [Mass/Vol] 0.91 mg/dL Normal 0.55-1.02 [facility] Comment on above: Order Comment: 'TROP ' Serial specimen #1, #2 or #3: 1 Result Comment: The validity of the calculated GFR GFRAA in patients over70 years has not been determined. Clinical correlation isessential. Performed By: #### L 100.4500, L501.4020, L500.4050, L100.0500 ####[facility] [address] [place], [address] ECRCL 38.84 ml/min Normal [facility] Comment on above: Order Comment: 'TROP ' Serial specimen #1, #2 or #3: 1 Performed By: #### L 100.4500, L501.4020, L500.4050, L100.0500 ####[facility] [address] [place], [address] EST GFR - AA 75 mL/min Normal >60 [facility] Comment on above: Order Comment: 'TROP ' Serial specimen #1, #2 or #3: 1 Result Comment: Afri can Chinese GFR Calc Performed By: #### L 100.4500, L501.4020, L500.4050, L100.0500 ####[facility] [address] [place], [address] GAP 8 Normal 5-15 [facility] Comment on above: Order Comment: 'TROP ' Serial specimen #1, #2 or #3: 1 Performed By: #### L 100.4500, L501.4020, L500.4050, L100.0500 ####[facility] [address] [place], [address] GFR/1.73 sq M.predicted among non-blacks MDRD (S/P/Bld) [Vol rate/Area] 62 mL/min/{1.73_m2} Normal >60 [facility] Comment on above: Order Comment: 'TROP ' Serial specimen #1, #2 or #3: 1 Result Comment: Non- GFR Calc Performed By: #### L 100.4500, L501.4020, L500.4050, L100.0500 ####[facility] [address] [place], [address] Globulin (S) [Mass/Vol] 3.6 g/dL Normal 2.2-4.2 [facility] Comment on above: Order Comment: 'TROP ' Serial specimen #1, #2 or #3: 1 Performed By: #### L 100.4500, L501.4020, L500.4050, L100.0500 ####[facility] [address] [place], [address] Glucose [Mass/Vol] 145 mg/dL High 74-106 [facility] Comment on above: Order Comment: 'TROP ' Serial specimen #1, #2 or #3: 1 Result Comment: Fast ing Glucose result greater than or equal to 126 mg/dLsuggests DIABETES MELLITUS per A.D.A. criteria. Performed By: #### L 100.4500, L501.4020, L500.4050, L100.0500 ####[facility] [address] [place], [address] Potassium [Moles/Vol] 3.9 mmol/L Normal 3.5-5.1 [facility] Comment on above: Order Comment: 'TROP ' Serial specimen #1, #2 or #3: 1 Performed By: #### L 100.4500, L501.4020, L500.4050, L100.0500 ####[facility] [address] [place], [address] Sodium [Moles/Vol] 138 mmol/L Normal 136-145 [facility] Comment on above: Order Comment: 'TROP ' Serial specimen #1, #2 or #3: 1 Performed By: #### L 100.4500, L501.4020, L500.4050, L100.0500 ####[facility] [address] [place], [address] T PROT 7.0 g/dL Normal 6.4-8.2 [facility] Comment on above: Order Comment: 'TROP ' Serial specimen #1, #2 or #3: 1 Performed By: #### L 100.4500, L501.4020, L500.4050, L100.0500 ####[facility] [address] [place], [address] Urea nitrogen [Mass/Vol] 14 mg/dL Normal 7-18 [facility] Comment on above: Order Comment: 'TROP ' Serial specimen #1, #2 or #3: 1 Performed By: #### L 100.4500, L501.4020, L500.4050, L100.0500 ####[facility] [address] [place], [address] Differential Commenton 04-18 SMEAR COMMENT SCANNED Normal [facility] Comment on above: Result Comment: THRO MBOCYTOPENIA NOTED Performed By: #### L 100.4500, L501.4020, L500.4050, L100.0500 ####[facility] [address] [place], [address] Echo Complete W/ Contraston 04-18-2024 Echo Complete W/ Contrast Normal [facility] Emergency Department Summary on 04-18-2024 Emergency Department Summary Normal [facility] H AND P Exam - Hospitaliston 04-18-2024 H&P Exam - Hospitalist Normal [facility] L501.4020on 04-18-2024 TROPONIN-I HS 38 pg/mL Normal 3.0-54.0 [facility] Comment on above: Order Comment: 'TROP ' Serial specimen #1, #2 or #3: 1 Result Comment: Plekenn se Note: New Test Units and Gender Specific Reference Ranges. For more information see Policy Stat Procedure Fulda High Sensitivity Troponin (TNIH) and attachments. Performed By: #### L 100.4500, L501.4020, L500.4050, L100.0500 ####[facility] [address] [place], [address] M100.678on 04-18-2024 M100.678 Pending SARS-CoV-2 (COVID 19) Negative INFLUENZA A Negative INFLUENZA B Negative RSV PCR Negative Normal [facility] Comment on above: Performed By: #### M 100.678, L400.0001 ####[facility] [address] [place], [address] Urinalysis, Completeon 04-18 BACTERIA 0 SEEN Normal None Seen [facility] Comment on above: Order Comment: COLLE CTOR TO SPECIFY Performed By: #### M 100.678, L400.0001 ####[facility] [address] [place], [address] EPI,SQUAMOUS 0 SEEN Normal 5-10 [facility] Comment on above: Order Comment: COLLE CTOR TO SPECIFY Performed By: #### M 100.678, L400.0001 ####[facility] [address] [place], [address] Mucus Ql (Urine sed) 0 SEEN Normal [facility] Comment on above: Order Comment: COLLE CTOR TO SPECIFY Performed By: #### M 100.678, L400.0001 ####[facility] [address] [place], [address] RBC 0 SEEN Normal 0-5 [facility] Comment on above: Order Comment: COLLE CTOR TO SPECIFY Performed By: #### M 100.678, L400.0001 ####[facility] [address] [place], [address] WBC 0 SEEN Normal 0-5 [facility] Comment on above: Order Comment: COLLE CTOR TO SPECIFY Performed By: #### M 100.678, L400.0001 ####[facility] [address] [place], [address] CNOVon 04-17-2024 CNOV Office Visit (LALITHAPWS ) KRYSTYNA KHANNA ([id number]) 1935 F Date Time Provider Department 04/17/24 9:00 AM LULU STATON During your visit today, we recorded the following information about you: Pulse Respiration Blood pressure 56/minute 18/minute 146/72 uLlu Staton APRN.[employer] 04/17/2024 3:26 PM Addendum Chief Complaint Patient presents with: Hospital F/U: RSV HPI Krystynajaye Khanna is a 89 year old female who presents here today for Above Complaints.. Patient presents for hospital follow up for RSV. Patient was admitted from 04/07 to 04/09 for RSV with Hypoxia. Patient max O2 use was 2L n/c. Patient declined PT/OT in hospital as she was getting around as she normally does but since being home has found her strength and stamina have decreased. Past medical history, appointments, medications, allergies reviewed. Previous Medical History PAST MEDICAL HISTORY Diagnosis Date Advance directive discussed with patient 11/20/2021 Packets given 11/20/2021 Atrial fibrillation (HCC) Bilateral knee pain 01/09/2010 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 11/30/2022 Elevated hemoglobin A1c 11/08/2017 Encounter for Medicare annual wellness exam 09/25/2020 Medical B eligibilty date 02/18/2000 Date of last exam 10/25/2020 Hepatitis thinks B History of congestive heart failure History of heart attack Hypertension, essential 11/08/2017 Obesity, Class II, BMI 35-39.9 11/08/2017 Osteoarthritis Osteopenia, senile 09/25/2020 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 No further w/u needed and ok to stay on Xarelto Previous Surgical History PAST SURGICAL HISTORY Procedure Laterality Date 2D ECHO (EXEP) 10/28/2020 EF=60%, 1+ TImod alvarez dysf ARTHRP KNE CONDYLEANDPLATU MEDIALANDLAT COMPARTMENTS Left 11/19/2017 Knee replacement, total PAST SURGICAL HISTORY OF 2004 right knee replacement REMV CATARACT EXTRACAP,INSERT LENS Bilateral REVISION OF UPPER EYELID Bilateral 11/21/2021 TUBAL LIGATION Family History FAMILY HISTORY Problem Relation Age of Onset Heart Mother Heart Father Breast Cancer Maternal Aunt Diabetes Maternal Aunt Diabetes Other cousin Cancer Paternal Grandmother stomach Heart Sister Breast Cancer Sister Patient Allergies ALLERGIES Allergen Reactions Darvocet A500 [Prop* Unknown Propoxyphene Unknown Sulfa (Sulfonamide * Other: See Comments didn't feel right, nervousness Current Medications Current Outpatient Medications on File Prior to Visit Medication Sig benzonatate (TESSALON PERLES) 100 mg capsule Take 2 capsules by mouth three times a day as needed for cough. metoprolol succinate ER (TOPROL XL) 50 mg 24 hr tablet Take 1 tablet by mouth once daily. omeprazole (PRILOSEC) 20 mg capsule Take 1 capsule by mouth daily before breakfast. 1/2 hr before meal. albuterol HFA (PROVENTIL HFA, VENTOLIN HFA) 90 mcg/actuation inhaler Inhale 2 Puffs as instructed every 4 hours as needed for wheezing/shortness of breath. calcium Carbonate 300 mg, 750mg, (TUMS) 300 mg (750 mg) chewable tablet Take 1 tablet by mouth twice daily. doxylamine succinate (NITE TIME SLEEP AID ORAL) Take by mouth as directed. Taking Nature's Bounty Sleep 3 as directed loperamide HCl (IMODIUM) 2 mg tab Take 2 mg by mouth as needed. Cholecalciferol, Vitamin D3, (D3-2000) 50 mcg (2,000 unit) cap Take 1 capsule by mouth once daily. multivitamin tablet Take 1 tablet by mouth once daily. acetaminophen (TYLENOL) 500 mg tablet Take 500 mg by mouth every 6 hours as needed. DOCOSAHEXANOIC ACID/EPA (FISH OIL ORAL) Take 1,000 mg by mouth once daily. No current facility-administered medications on file prior to visit. Social History Social History Tobacco Use Smoking status: Never Smokeless tobacco: Never Vaping Use Vaping status: Never Used Substance Use Topics Alcohol use: No Drug use: No Review of Symptoms REVIEW OF SYSTEMS SEE HPI EXAM: BP 146/72 Pulse (!) 56 Resp 18 SpO2 95% General Appearance: Well appearing, alert, in no acute distress, well-hydrated, well nourished. Lungs: Positive findings: rhonchi Shortness of breath: At rest Cough. Heart: RRR without murmur, gallop, or rubs. No ectopy. Musculoskeletal: No joint swelling, deformity, or tenderness. Peripheral Pulses: Normal. Health Maintenance List Shingrix Vaccine(1 of 2) Never done RSV Vaccine(1 - 1-dose 75+ series) Never done Influenza Vaccine(1) due on 12/19/2023 Covid-19 Vaccine(2023- season) due on 12/19/2023 Depression Screening due on 11/24/2024 Anxiety Screening due on 11/24/2024 Diabetes Screening due on 11/15/2026 DTaP,Tdap,Td Vaccine(2 - Td or Tdap) due on 11/18/2027 Bone Density Screening Completed Advance Directive Discussion Completed Pneumococcal Vaccine: 50+ Completed ASSESSMENT/PLAN: 1. Generalized weakness - ICD9: 780.79, ICD1 (more content not included)... Normal [facility] CNPNon 04-17-2024 [facility] Telephone (HCSIND) KRSYTYNA KHANNA ([id number]) 1935 F Date Time Provider Department 04/17/24 LULU STATON During your visit today, we recorded the following information about you: Pau Grady LPN 04/17/2024 10:30 AM Signed Thank you for the referral for Krystyna Khanna to receive home care services through [facility]. Based off diagnosis patient would benefit from SN services, can SN be added to HHC orders/office note? Per CMS guidelines your office note needs to include a discussion of HHC with the following: - why is HHC needed - why is the patient homebound - what is the diagnosis that HHC is seeing the patient for. Thank you, KAYLA Rodriguez Danielle, APRN.[facility] 04/17/2024 10:40 AM Signed No nursing home needs. Patient is having weakness following hospitalization and RSV. Pau Grady LPN 04/17/2024 3:06 PM Signed Okay thank you, Also after further review we would need the visit note updated to correlate weakness is due to RSV. Please let us know when updated. Thank you, Pau Grady LPN Allergies As of Date: 04/17/2024 Noted Allergy Reaction DARVOCET A500 (PROPOXYPHENE N-APOLINAR*04/26/2012 16 - Unknown PROPOXYPHENE 07/03/2022 16 - Unknown SULFA (SULFONAMIDE ANTIBIOTICS) 04/26/2012 14 - Other: See Comments Comments: didn't feel right, nervousness Date Reviewed: 04/17/2024 Reviewed by: Antoinette Serrano MA - Fully Assessed Reason for Visit: Home Care [4073] Prescriptions as of 04/17/2024 - benzonatate (TESSALON PERLES) 100 mg capsule Take 2 capsules by mouth three times a day as needed for cough. - metoprolol succinate ER (TOPROL XL) 50 mg 24 hr tablet Take 1 tablet by mouth once daily. - omeprazole (PRILOSEC) 20 mg capsule Take 1 capsule by mouth daily before breakfast. 1/2 hr before meal. - albuterol HFA (PROVENTIL HFA, VENTOLIN HFA) 90 mcg/actuation inhaler Inhale 2 Puffs as instructed every 4 hours as needed for wheezing/shortness of breath. - calcium Carbonate 300 mg, 750mg, (TUMS) 300 mg (750 mg) chewable tablet Take 1 tablet by mouth twice daily. - doxylamine succinate (NITE TIME SLEEP AID ORAL) Take by mouth as directed. Taking Nature's Bounty Sleep 3 as directed - loperamide HCl (IMODIUM) 2 mg tab Take 2 mg by mouth as needed. - Cholecalciferol, Vitamin D3, (D3-2000) 50 mcg (2,000 unit) cap Take 1 capsule by mouth once daily. - multivitamin tablet Take 1 tablet by mouth once daily. - acetaminophen (TYLENOL) 500 mg tablet Take 500 mg by mouth every 6 hours as needed. - DOCOSAHEXANOIC ACID/EPA (FISH OIL ORAL) Take 1,000 mg by mouth once daily. Problem List As Of Date 04/17/2024 Noted Resolved Bilateral knee pain [M25.561, M25.562] 01/09/2010 Osteoarthritis [M19.90] 11/01/2017 Hypertension, essential [I10] 11/08/2017 Atrial fibrillation (HCC) [I48.91] 11/08/2017 Hepatitis [K75.9] 11/08/2017 Elevated hemoglobin A1c [R73.09] 11/08/2017 Obesity, Class II, BMI 35-39.9 [E66.812] 11/08/2017 Arthritis of knee [M17.10] 11/19/2017 12/23/2017 Primary osteoarthritis of left knee [M17.12] 11/24/2017 12/23/2017 Encounter for Medicare annual wellness exam [Z0*09/25/2020 Osteopenia, senile [M85.80] 09/25/2020 AK (actinic keratosis) [L57.0] 05/19/2021 Medication management [Z79.899] 05/19/2021 Advance directive discussed with patient [Z71.8*11/20/2021 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 Antoinette Serrano MA 04/17/2024 10:58 AM Signed Left message for patient to return call to office MINE Clements Julia, LPN 04/17/2024 11:47 AM Signed PATIENT NOTIFIED OF SAME. Allergies As of Date: 04/17/2024 Noted Allergy Reaction DARVOCET A500 (PROPOXYPHENE N-APOLINAR*04/26/2012 16 - Unknown PROPOXYPHENE 07/03/2022 16 - Unknown SULFA (SULFONAMIDE ANTIBIOTICS) 04/26/2012 14 - Other: See Comments Comments: didn't feel right, nervousness Date Reviewed: 04/17/2024 Reviewed by: Antoinette Serrano MA - Fully Assessed Reason for Visit: Results [95] Prescriptions as of 04/17/2024 - benzonatate (TESSALON PERLES) 100 mg capsule Take 2 capsules by mouth three times a day as needed for cough. - metoprolol succinate ER (TOPROL XL) 50 mg 24 hr tablet Take 1 tablet by mouth once daily. - omeprazole (PRILOSEC) 20 mg capsule Take 1 capsule by mouth daily before breakfast. 1/2 hr before meal. - albuterol HFA (PROVENTIL HFA, VENTOLIN HFA) 90 mcg/actuation inhaler Inhale 2 Puffs as instructed every 4 hours as needed for wheezing/shortness of breath. - calcium Carbonate 300 mg, 750mg, (TUMS) 300 mg (750 mg) chewable tablet Take 1 tablet by mouth twice daily. - doxylamine succinate (NITE TIME SLEEP AID ORAL) Take by mouth as directed. Taking Nature's Bounty Sleep 3 as directed - loperamide HCl (IMODIUM) 2 mg tab Take 2 mg by mouth as needed. - Cholecalciferol, Vitamin D3, (D3-2000) 50 mcg (2,000 unit) cap Take 1 capsule by mouth once daily. - multivitamin tablet Take 1 tablet by mouth once daily. - acetaminophen (TYLENOL) 500 mg tablet Take 500 mg by mouth every 6 hours as needed. - DOCOSAHEXANOIC ACID/EPA (FISH OIL ORAL) Take 1,000 mg by mouth once daily. Problem List As Of Date 04/17/2024 Noted Resolved Bilateral knee pain [M25.561, M25.562] 01/09/2010 Osteoarthritis [M19.90] 11/01/2017 Hypertension, essential [I10] 11/08/2017 Atrial fibrillation (HCC) [I48.91] 11/08/2017 Hepatitis [K75.9] 11/08/2017 Elevated hemoglobin A1c [R73.09] 11/08/2017 Obesity, Class II, BMI 35-39.9 [E66.812] 11/08/2017 Arthritis of knee [M17.10] 11/19/2017 12/23/2017 Primary osteoarthritis of left knee [M17.12] 11/24/2017 12/23/2017 Encounter for Medicare annual wellness exam [Z0*09/25/2020 Osteopenia, senile [M85.80] 09/25/2020 AK (actinic keratosis) [L57.0] 05/19/2021 Medication management [Z79.899] 05/19/2021 Advance directive discussed with patient [Z71.8*11/20/2021 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] 12/10/2021 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 *11/30/2022 Encounter Status:Closed by ASHLI REYES on 04/17/24 Normal [facility] XR CHEST 2V FRONTAL/LATon XR CHEST 2V FRONTAL/LAT * * *Final Report* * * DATE OF EXAM: Apr 17 2024 10:13AM WRX [id number] - XR CHEST 2V FRONTAL/LAT / PROCEDURE REASON: RSV (acute bronchiolitis due to respiratory syncytial virus) * * * * Physician Interpretation * * * * EXAMINATION: CHEST RADIOGRAPH (2 VIEW FRONTAL and LATERAL) CLINICAL HISTORY: RSV (acute bronchiolitis due to respiratory syncytial virus) MQ: XC2_6 EXAM DATE/TIME: 04/17/2024 10:13 AM COMPARISON: Chest x-ray dated 01/11/2024 RESULT: Lines, tubes, and devices: None. Lungs and pleura: No consolidation. Stable subcentimeter right calcified granuloma.. No pleural effusion. No pneumothorax. Cardiomediastinal silhouette: Stable cardiomediastinal silhouette. Bones and soft tissues: Multilevel degenerative changes. Chronic superior endplate compression deformity of a lower thoracic versus upper lumbar vertebral body. Stable scoliosis. IMPRESSION: No acute radiographic abnormality. [employer] Aide: BEBETO Transcribe Date/Time: Apr 17 2024 10:37A Dictated by : INDIO MALIK MD This examination was interpreted and the report reviewed and electronically signed by: INDIO MALIK MD on Apr 17 2024 10:39AM EST [id number] Normal [facility] XR Chest PA and Lateralon IMPRESSION: No acute radiographic abnormality. [employer] Teacher'S Aide: [facility] Transcribe Date/Time: Apr 17 2024 10:37A Dictated by : INDIO MALIK MD This examination was interpreted and the report reviewed and electronically signed by: INDIO MALIK MD on Apr 17 2024 10:39AM EST DIVISION OF RADIOLOGY * * *Final Report* * * DATE OF EXAM: Apr 17 2024 10:13AM WRX [id number] - XR CHEST 2V FRONTAL/LAT / PROCEDURE REASON: RSV (acute bronchiolitis due to respiratory syncytial virus) * * * * Physician Interpretation * * * * EXAMINATION: CHEST RADIOGRAPH (2 VIEW FRONTAL & LATERAL) CLINICAL HISTORY: RSV (acute bronchiolitis due to respiratory syncytial virus) MQ: XC2_6 EXAM DATE/TIME: 04/17/2024 10:13 AM COMPARISON: Chest x-ray dated 01/11/2024 RESULT: Lines, tubes, and devices: None. Lungs and pleura: No consolidation. Stable subcentimeter right calcified granuloma.. No pleural effusion. No pneumothorax. Cardiomediastinal silhouette: Stable cardiomediastinal silhouette. Bones and soft tissues: Multilevel degenerative changes. Chronic superior endplate compression deformity of a lower thoracic versus upper lumbar vertebral body. Stable scoliosis. DIVISION OF RADIOLOGY Provider, [facility] - 04/17/2024 * * *Final Report* * * DATE OF EXAM: Apr 17 2024 10:13AM [id number] [id number] - XR CHEST 2V FRONTAL/LAT / PROCEDURE REASON: RSV (acute bronchiolitis due to respiratory syncytial virus) * * * * Physician Interpretation * * * * EXAMINATION: CHEST RADIOGRAPH (2 VIEW FRONTAL & LATERAL) CLINICAL HISTORY: RSV (acute bronchiolitis due to respiratory syncytial virus) MQ: XC2_6 EXAM DATE/TIME: 04/17/2024 10:13 AM COMPARISON: Chest x-ray dated 01/11/2024 RESULT: Lines, tubes, and devices: None. Lungs and pleura: No consolidation. Stable subcentimeter right calcified granuloma.. No pleural effusion. No pneumothorax. Cardiomediastinal silhouette: Stable cardiomediastinal silhouette. Bones and soft tissues: Multilevel degenerative changes. Chronic superior endplate compression deformity of a lower thoracic versus upper lumbar vertebral body. Stable scoliosis. IMPRESSION IMPRESSION: No acute radiographic abnormality. [employer]S Aide: PSCB Transcribe Date/Time: Apr 17 2024 10:37A Dictated by : INDIO MALIK MD This examination was interpreted and the report reviewed and electronically signed by: INDIO MALIK MD on Apr 17 2024 10:39AM EST [facility] Radiology Study observation (narrative) [facility] XR Chest PA and LateralOrder ed By: Ccf Provider on 04-17-2024 [facility] CBC W/Diff, Automatedon 03-20 PATH REV Reviewed Normal [facility] Comment on above: Result Comment: Plat elet clumping is notedClinical correlation necessary.Hunter Jimenez M.D. 04/11/24Pathologist comment added AMENDED REPORT 04/11/24 1047 PATH REV previously reported as: August Performed By: #### L 500.2500, L100.0100 ####[facility] [address] [place], [address] PATH REV Reviewed Normal [facility] Comment on above: Result Comment: Mode rate Thrombocytopenia.Clinical correlation necessary.Hunter Jimenez M.D. 04/11/24Pathologist comment added AMENDED REPORT 04/11/24 1025 PATH REV previously reported as: August Performed By: #### L 100.0100, L500.2500 ####[facility] [address] [place], [address] Basic Metabolic Profile (BMP )on 04-08-2024 BUN/CRE 16.0 RATIO Normal 10-20 [facility] Comment on above: Performed By: #### L 500.2500, L100.0100 ####[facility] [address] [place], [address] CA,Total 8.9 mg/dL Normal 8.5-10.1 [facility] Comment on above: Performed By: #### L 500.2500, L100.0100 ####[facility] [address] [place], [address] Chloride [Moles/Vol] 103 mmol/L Normal 98-107 [facility] Comment on above: Performed By: #### L 500.2500, L100.0100 ####[facility] [address] [place], [address] CO2 [Moles/Vol] 31.0 mmol/L Normal 21.0-32.0 [facility] Comment on above: Performed By: #### L 500.2500, L100.0100 ####[facility] [address] [place], [address] Creatinine [Mass/Vol] 0.69 mg/dL Normal 0.55-1.02 [facility] Comment on above: Result Comment: The validity of the calculated GFR GFRAA in patients over70 years has not been determined. Clinical correlation isessential. Performed By: #### L 500.2500, L100.0100 ####[facility] [address] [place], [address] ECRCL 43.73 ml/min Normal [facility] Comment on above: Performed By: #### L 500.2500, L100.0100 ####[facility] [address] [place], [address] EST GFR - AA 104 mL/min Normal >60 [facility] Comment on above: Result Comment: Afri can Chinese GFR Calc Performed By: #### L 500.2500, L100.0100 ####[facility] [address] [place], [address] GAP 4 Low 5-15 [facility] Comment on above: Performed By: #### L 500.2500, L100.0100 ####[facility] [address] [place], [address] GFR/1.73 sq M.predicted among non-blacks MDRD (S/P/Bld) [Vol rate/Area] 86 mL/min/{1.73_m2} Normal >60 [facility] Comment on above: Result Comment: Non- GFR Calc Performed By: #### L 500.2500, L100.0100 ####[facility] [address] [place], [address] Glucose [Mass/Vol] 110 mg/dL High 74-106 [facility] Comment on above: Result Comment: Fast ing Glucose result from 100 to 125 mg/dLsuggests IMPAIRED HOMEOSTASIS per A.D.A. criteria. Performed By: #### L 500.2500, L100.0100 ####[facility] [address] [place], [address] Potassium [Moles/Vol] 3.8 mmol/L Normal 3.5-5.1 [facility] Comment on above: Performed By: #### L 500.2500, L100.0100 ####[facility] [address] [place], [address] Sodium [Moles/Vol] 137 mmol/L Normal 136-145 [facility] Comment on above: Performed By: #### L 500.2500, L100.0100 ####[facility] [address] [place], [address] Urea nitrogen [Mass/Vol] 11 mg/dL Normal 7-18 [facility] Comment on above: Performed By: #### L 500.2500, L100.0100 ####[facility] [address] [place], [address] Basic Metabolic Profile (BMP )on 04-07-2024 BUN/CRE 14.6 RATIO Normal 10-20 [facility] Comment on above: Performed By: #### L 100.0100, L500.2500 ####[facility] [address] [place], [address] CA,Total 9.6 mg/dL Normal 8.5-10.1 [facility] Comment on above: Performed By: #### L 100.0100, L500.2500 ####[facility] [address] [place], [address] Chloride [Moles/Vol] 102 mmol/L Normal 98-107 [facility] Comment on above: Performed By: #### L 100.0100, L500.2500 ####[facility] [address] [place], [address] CO2 [Moles/Vol] 32.0 mmol/L Normal 21.0-32.0 [facility] Comment on above: Performed By: #### L 100.0100, L500.2500 ####[facility] [address] [place], [address] Creatinine [Mass/Vol] 0.75 mg/dL Normal 0.55-1.02 [facility] Comment on above: Result Comment: The validity of the calculated GFR GFRAA in patients over70 years has not been determined. Clinical correlation isessential. Performed By: #### L 100.0100, L500.2500 ####[facility] [address] [place], [address] ECRCL 42.94 ml/min Normal [facility] Comment on above: Performed By: #### L 100.0100, L500.2500 ####[facility] [address] [place], [address] EST GFR - AA 93 mL/min Normal >60 [facility] Comment on above: Result Comment: Afri can Chinese GFR Calc Performed By: #### L 100.0100, L500.2500 ####[facility] [address] [place], [address] GAP 3 Low 5-15 [facility] Comment on above: Performed By: #### L 100.0100, L500.2500 ####[facility] [address] [place], [address] GFR/1.73 sq M.predicted among non-blacks MDRD (S/P/Bld) [Vol rate/Area] 77 mL/min/{1.73_m2} Normal >60 [facility] Comment on above: Result Comment: Non- GFR Calc Performed By: #### L 100.0100, L500.2500 ####[facility] [address] [place], [address] Glucose [Mass/Vol] 120 mg/dL High 74-106 [facility] Comment on above: Result Comment: Fast ing Glucose result from 100 to 125 mg/dLsuggests IMPAIRED HOMEOSTASIS per A.D.A. criteria. Performed By: #### L 100.0100, L500.2500 ####[facility] [address] [place], [address] Potassium [Moles/Vol] 4.2 mmol/L Normal 3.5-5.1 [facility] Comment on above: Performed By: #### L 100.0100, L500.2500 ####[facility] [address] [place], [address] Sodium [Moles/Vol] 137 mmol/L Normal 136-145 [facility] Comment on above: Performed By: #### L 100.0100, L500.2500 ####[facility] [address] [place], [address] Urea nitrogen [Mass/Vol] 11 mg/dL Normal 7-18 [facility] Comment on above: Performed By: #### L 100.0100, L500.2500 ####[facility] [address] [place], [address] CNOVon 04-07-2024 CNOV Office Visit ([facility] ) HERLINDAKRYSTYNA E ([id number]) 1935 F Date Time Provider Department 04/07/24 3:45 PM ULICES MOYA [facility] During your visit today, we recorded the following information about you: Temperature Pulse Respiration Blood pressure 98 degrees 80/minute 26/minute 121/88 Weight 77 kg Ulices Moya APRN.CNP 04/07/2024 4:59 PM Signed Subjective HPI HPI Krystyna Khanna is a 89 year old female who presents today for CC of cough, wheeze, sob. This started 4 days ago. Denies hx of asthma, nonsmoker .Patient presents with: Cough: Wheeze, SOB, chest congestion, yellow phlegm, x 4 days PAST MEDICAL HISTORY Diagnosis Date Advance directive discussed with patient 11/20/2021 Packets given 11/20/2021 Atrial fibrillation (HCC) Bilateral knee pain 01/09/2010 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 11/30/2022 Elevated hemoglobin A1c 11/08/2017 Encounter for Medicare annual wellness exam 09/25/2020 Medical B eligibilty date 02/18/2000 Date of last exam 10/25/2020 Hepatitis thinks B History of congestive heart failure History of heart attack Hypertension, essential 11/08/2017 Obesity, Class II, BMI 35-39.9 11/08/2017 Osteoarthritis Osteopenia, senile 09/25/2020 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 No further w/u needed and ok to stay on Xarelto PAST SURGICAL HISTORY Procedure Laterality Date 2D ECHO (EXEP) 10/28/2020 EF=60%, 1+ TImod alvarez dysf ARTHRP KNE CONDYLEANDPLATU MEDIALANDLAT COMPARTMENTS Left 11/19/2017 Knee replacement, total PAST SURGICAL HISTORY OF 2004 right knee replacement REMV CATARACT EXTRACAP,INSERT LENS Bilateral REVISION OF UPPER EYELID Bilateral 11/21/2021 TUBAL LIGATION ALLERGIES Darvocet A500 [Propoxyphene N-Acetaminophen], Propoxyphene, and Sulfa (Sulfonamide Antibiotics) MEDICATIONS benzonatate (TESSALON PERLES) 100 mg capsuleTake 2 capsules by mouth three times a day as needed for cough.Disp: 60 capsuleRfl: 1 metoprolol succinate ER (TOPROL XL) 50 mg 24 hr tabletTake 1 tablet by mouth once daily.Disp: 90 tabletRfl: 1 omeprazole (PRILOSEC) 20 mg capsuleTake 1 capsule by mouth daily before breakfast. 1/2 hr before meal.Disp: 30 capsuleRfl: 1 albuterol HFA (PROVENTIL HFA, VENTOLIN HFA) 90 mcg/actuation inhalerInhale 2 Puffs as instructed every 4 hours as needed for wheezing/shortness of breath.Disp: 1 EachRfl: 0 calcium Carbonate 300 mg, 750mg, (TUMS) 300 mg (750 mg) chewable tabletTake 1 tablet by mouth twice daily.Disp: Rfl: doxylamine succinate (NITE TIME SLEEP AID ORAL)Take by mouth as directed. Taking Nature's Bounty Sleep 3 as directedDisp: Rfl: loperamide HCl (IMODIUM) 2 mg tabTake 2 mg by mouth as needed.Disp: Rfl: Cholecalciferol, Vitamin D3, (D3-2000) 50 mcg (2,000 unit) capTake 1 capsule by mouth once daily.Disp: Rfl: multivitamin tabletTake 1 tablet by mouth once daily.Disp: Rfl: acetaminophen (TYLENOL) 500 mg tabletTake 500 mg by mouth every 6 hours as needed.Disp: Rfl: DOCOSAHEXANOIC ACID/EPA (FISH OIL ORAL)Take 1,000 mg by mouth once daily.Disp: Rfl: FAMILY HISTORY Problem Relation Age of Onset Heart Mother Heart Father Breast Cancer Maternal Aunt Diabetes Maternal Aunt Diabetes Other cousin Cancer Paternal Grandmother stomach Heart Sister Breast Cancer Sister Social History Tobacco Use Smoking status: Never Smokeless tobacco: Never Vaping Use Vaping status: Never Used Substance Use Topics Alcohol use: No Drug use: No ROS Objective Blood pressure 121/88, pulse 62, temperature 36.7 ?C (98 ?F), resp. rate 26, weight 77 kg (169 lb 12.1 oz), SpO2 92%. Physical Exam Constitutional: General: She is not in acute distress. Appearance: She is not toxic-appearing or diaphoretic. HENT: Head: Normocephalic and atraumatic. Cardiovascular: Rate and Rhythm: Normal rate and regular rhythm. Heart sounds: Normal heart sounds, S1 normal and S2 normal. Pulmonary: Effort: Accessory muscle usage present. Breath sounds: Wheezing (scattered bilat) and rhonchi (scattered bilat) present. No decreased breath sounds or rales. Comments: After neb treatment breath sounds and respiratory effort unchanged/poor Neurological: Mental Status: She is alert and oriented to person, place, and time. Gait: Gait is intact. ASSESSMENT/PLAN: 1. Trouble breathing - ICD9: 786.09, ICD10: R06.89 (primary diagnosis) No improvement with nebulizer treatment I will refer to Er. Family to drive to [facility], unclear what ER will go to at this time. 2. Rhonchi - ICD9: 786.7, ICD10: R09.89 - ALBUTEROL SULFATE 2.5 MG/3 ML (0.083 %) SOLUTION FOR NEBULIZATION - no improvement in respiration or vs. Ulices Moya APRN.[employer] Allergies As of Date: 04/07/2024 Noted Allergy Reaction DARVOCET A500 (PROPOXYPHENE N-APOLINAR*04/26/2012 16 - Unknown PROPOXYPHENE 07/03/2022 16 - Unknown SULFA (SULFONAMIDE AN (more content not included)... Normal [facility] Chest PA and Lateralon 04-07 Chest PA and Lateral Normal [facility] Emergency Department Summary on 04-07-2024 Emergency Department Summary Normal [facility] H AND P Exam - Hospitaliston 04-07-2024 H&P Exam - Hospitalist Normal [facility] M100.678on 04-07-2024 M100.678 Pending SARS-CoV-2 (COVID 19) Negative INFLUENZA A Negative INFLUENZA B Negative RSV PCR A Positive A RSV Normal [facility] Comment on above: Performed By: #### M 100.678 ####[facility] [address] [place], [address] XR Chest PA and Lateralon IMPRESSION: No acute radiographic abnormality. [employer] Aide: BEBETO Transcribe Date/Time: Jan 11 2024 10:41A Dictated by : ROSENDO SHAH MD This examination was interpreted and the report reviewed and electronically signed by: ROSENDO SHAH MD on Jan 11 2024 10:43AM [facility] DIVISION OF RADIOLOGY * * *Final Report* * * DATE OF EXAM: Jan 11 2024 10:39AM WOX 5291 - XR CHEST 2V FRONTAL/LAT / PROCEDURE REASON: multiple diagnoses * * * * Physician Interpretation * * * * EXAMINATION: CHEST RADIOGRAPH (2 VIEW FRONTAL & LATERAL) CLINICAL HISTORY: COVID-19 virus infection Persistent cough MQ: XC2_6 EXAM DATE/TIME: 01/11/2024 10:39 AM COMPARISON: Chest x-ray 07/27/2023 RESULT: Lines, tubes, and devices: None. Lungs and pleura: No consolidation. No lung mass. No pleural effusion. No pneumothorax. Cardiomediastinal silhouette: Normal cardiomediastinal silhouette. Bones and soft tissues: Kyphosis and degenerative disease of the thoracic spine. DIVISION OF RADIOLOGY Provider, Isis Kruger - 01/11/2024 * * *Final Report* * * DATE OF EXAM: Jan 11 2024 10:39AM WOX 5291 - XR CHEST 2V FRONTAL/LAT / PROCEDURE REASON: multiple diagnoses * * * * Physician Interpretation * * * * EXAMINATION: CHEST RADIOGRAPH (2 VIEW FRONTAL & LATERAL) CLINICAL HISTORY: COVID-19 virus infection Persistent cough MQ: XC2_6 EXAM DATE/TIME: 01/11/2024 10:39 AM COMPARISON: Chest x-ray 07/27/2023 RESULT: Lines, tubes, and devices: None. Lungs and pleura: No consolidation. No lung mass. No pleural effusion. No pneumothorax. Cardiomediastinal silhouette: Normal cardiomediastinal silhouette. Bones and soft tissues: Kyphosis and degenerative disease of the thoracic spine. IMPRESSION IMPRESSION: No acute radiographic abnormality. [employer] Aide: BEBETO Transcribe Date/Time: Jan 11 2024 10:41A Dictated by : ROSENDO SHAH MD This examination was interpreted and the report reviewed and electronically signed by: ROSENDO SHAH MD on Jan 11 2024 10:43AM EST [facility] Radiology Study observation (narrative) [facility] XR Chest PA and LateralOrder ed By: Cc Provider on 01-11-2024 [facility] No Panel Informationon 12-02 IMPRESSION: 1. Positional limitations as above 2. Possible small elbow joint effusion not otherwise specific. Could indicate a radiographically occult new nondisplaced proximal radial fracture. Depending on clinical findings, considering treating as fracture; no further imaging is indicated 3. Incidentally, possible incomplete union previous proximal radial fracture; identifiable sclerotic margins along some of the fracture lines. No new or progressive displacement [employer] Aide: PSC[employer] Transcribe Date/Time: Dec 03 2023 4:12P Dictated by : PAPI CAMPUZANO MD This examination was interpreted and the report reviewed and electronically signed by: PAPI CAMPUZANO MD on Dec 03 2023 4:27PM EST DIVISION OF RADIOLOGY Radiology Study observation (narrative) [facility] No Panel InformationOrdered By: Ccf Provider on 12-03-2023 [facility] XR Elbow - left AP and Later al and obliqueon 12-03-2023 * * *Final Report* * * DATE OF EXAM: Dec 03 2023 3:58PM WOX 5324 - XR ELBOW 3V AP/LAT/OTHER LT / PROCEDURE REASON: Injury of left upper extremity, initial encounter * * * * Physician Interpretation * * * * EXAMINATION: XR ELBOW 3V AP/LAT/OTHER LT, XR WRIST 3V PA/LAT/OBL LT HISTORY: Left wrist and left elbow pain after recent fall. Injury of left upper extremity, initial encounter . TECHNIQUE: XR ELBOW 3V AP/LAT/OTHER LT, XR WRIST 3V PA/LAT/OBL LT Laterality: LEFT Number of different views (projections): 3 M: XB_1 COMPARISON: Wrist and elbow radiographs 11/21/2020 RESULT: Left elbow and left wrist: 3 elbow images including radial head view. On frontal image there is forearm pronation/supination distorting anatomy. 3 wrist images. Lateral wrist image mildly obliqued. No definitive acute osseous abnormality left elbow and left wrist. Possible small elbow joint effusion. Preexistent fracture deformity radial head and neck. Radiohumeral articulation congruent on all 3 images. Preexistent scapholunate dissociation DIVISION OF RADIOLOGY Provider, [facility] - 12/03/2023 * * *Final Report* * * DATE OF EXAM: Dec 03 2023 3:58PM WOX 5324 - XR ELBOW 3V AP/LAT/OTHER LT / PROCEDURE REASON: Injury of left upper extremity, initial encounter * * * * Physician Interpretation * * * * EXAMINATION: XR ELBOW 3V AP/LAT/OTHER LT, XR WRIST 3V PA/LAT/OBL LT HISTORY: Left wrist and left elbow pain after recent fall. Injury of left upper extremity, initial encounter . TECHNIQUE: XR ELBOW 3V AP/LAT/OTHER LT, XR WRIST 3V PA/LAT/OBL LT Laterality: LEFT Number of different views (projections): 3 M: XB_1 COMPARISON: Wrist and elbow radiographs 11/21/2020 RESULT: Left elbow and left wrist: 3 elbow images including radial head view. On frontal image there is forearm pronation/supination distorting anatomy. 3 wrist images. Lateral wrist image mildly obliqued. No definitive acute osseous abnormality left elbow and left wrist. Possible small elbow joint effusion. Preexistent fracture deformity radial head and neck. Radiohumeral articulation congruent on all 3 images. Preexistent scapholunate dissociation IMPRESSION IMPRESSION: 1. Positional limitations as above 2. Possible small elbow joint effusion not otherwise specific. Could indicate a radiographically occult new nondisplaced proximal radial fracture. Depending on clinical findings, considering treating as fracture; no further imaging is indicated 3. Incidentally, possible incomplete union previous proximal radial fracture; identifiable sclerotic margins along some of the fracture lines. No new or progressive displacement [employer] Teacher'S Aide: [facility] Transcribe Date/Time: Dec 03 2023 4:12P Dictated by : PAPI CAMPUZANO MD This examination was interpreted and the report reviewed and electronically signed by: PAPI CAMPUZANO MD on Dec 03 2023 4:27PM [facility] XR Wrist - left PA and Later al and Obliqueon 12-03-2023 * * *Final Report* * * DATE OF EXAM: Dec 03 2023 3:58PM WOX 5270 - XR WRIST 3V PA/LAT/OBL LT / PROCEDURE REASON: Injury of left upper extremity, initial encounter * * * * Physician Interpretation * * * * EXAMINATION: XR ELBOW 3V AP/LAT/OTHER LT, XR WRIST 3V PA/LAT/OBL LT HISTORY: Left wrist and left elbow pain after recent fall. Injury of left upper extremity, initial encounter . TECHNIQUE: XR ELBOW 3V AP/LAT/OTHER LT, XR WRIST 3V PA/LAT/OBL LT Laterality: LEFT Number of different views (projections): 3 M: XB_1 COMPARISON: Wrist and elbow radiographs 11/21/2020 RESULT: Left elbow and left wrist: 3 elbow images including radial head view. On frontal image there is forearm pronation/supination distorting anatomy. 3 wrist images. Lateral wrist image mildly obliqued. No definitive acute osseous abnormality left elbow and left wrist. Possible small elbow joint effusion. Preexistent fracture deformity radial head and neck. Radiohumeral articulation congruent on all 3 images. Preexistent scapholunate dissociation DIVISION OF RADIOLOGY [facility] * * *Final Report* * * DATE OF EXAM: Dec 03 2023 3:58PM WOX 5270 - XR WRIST 3V PA/LAT/OBL LT / PROCEDURE REASON: Injury of left upper extremity, initial encounter * * * * Physician Interpretation * * * * EXAMINATION: XR ELBOW 3V AP/LAT/OTHER LT, XR WRIST 3V PA/LAT/OBL LT HISTORY: Left wrist and left elbow pain after recent fall. Injury of left upper extremity, initial encounter . TECHNIQUE: XR ELBOW 3V AP/LAT/OTHER LT, XR WRIST 3V PA/LAT/OBL LT Laterality: LEFT Number of different views (projections): 3 M: XB_1 COMPARISON: Wrist and elbow radiographs 11/21/2020 RESULT: Left elbow and left wrist: 3 elbow images including radial head view. On frontal image there is forearm pronation/supination distorting anatomy. 3 wrist images. Lateral wrist image mildly obliqued. No definitive acute osseous abnormality left elbow and left wrist. Possible small elbow joint effusion. Preexistent fracture deformity radial head and neck. Radiohumeral articulation congruent on all 3 images. Preexistent scapholunate dissociation IMPRESSION IMPRESSION: 1. Positional limitations as above 2. Possible small elbow joint effusion not otherwise specific. Could indicate a radiographically occult new nondisplaced proximal radial fracture. Depending on clinical findings, considering treating as fracture; no further imaging is indicated 3. Incidentally, possible incomplete union previous proximal radial fracture; identifiable sclerotic margins along some of the fracture lines. No new or progressive displacement [employer] Aide: [employer] Transcribe Date/Time: Dec 03 2023 4:12P Dictated by : PAPI CAMPUZANO MD This examination was interpreted and the report reviewed and electronically signed by: PAPI CAMPUZANO MD on Dec 03 2023 4:27PM EST [facility] SPIROMETRY - BASELINE AND PO ST DILATORon 08-03-2023 [id number]% POST (L/S) 1.64 L/S [facility] TDX10-00% PRE (L/S) 1.57 L/S [facility] FEV1 PRE (L) 1.21 L [facility] FEV1/FVC POST (%) 95 % [facility] FEV1/FVC PRE (%) 95 % [facility] FEV1_POST (L) 1.22 L [facility] FVC POST (L) 1.29 L [facility] FVC PRE (L) 1.27 L [facility] PEF POST (L/S) 3.24 L/S [facility] PEF PRE (L/S) 3.32 L/S [facility] XR Chest PA and Lateralon IMPRESSION: Cardiome dayana No acute radiographic abnormality. [employer] Aide: [employer] Transcribe Date/Time: Jul 27 2023 4:11P Dictated by : LAM KEARNEY MD This examination was interpreted and the report reviewed and electronically signed by: LAM KEARNEY MD on Jul 27 2023 4:14PM [facility] DIVISION OF RADIOLOGY * * *Final Report* * * DATE OF EXAM: Jul 27 2023 1:45PM WOX 5291 - XR CHEST 2V FRONTAL/LAT / PROCEDURE REASON: Acute cough * * * * Physician Interpretation * * * * EXAMINATION: CHEST RADIOGRAPH (2 VIEW FRONTAL & LATERAL) CLINICAL HISTORY: Acute cough MQ: XC2_6 EXAM DATE/TIME: 07/27/2023 1:45 PM COMPARISON: 03/26/2023 RESULT: Lines, tubes, and devices: None. Lungs and pleura: No consolidation. No lung mass. No pleural effusion. No pneumothorax. Cardiomediastinal silhouette: Mildly enlarged cardiomediastinal silhouette. Bones and soft tissues: Multiple mid and lower thoracic mild wedge vertebral deformities are stable. Scoliosis DIVISION OF RADIOLOGY Provider, Erin Clarisse luz [place] - 07/27/2023 * * *Final Report* * * DATE OF EXAM: Jul 27 2023 1:45PM WOX 5291 - XR CHEST 2V FRONTAL/LAT / PROCEDURE REASON: Acute cough * * * * Physician Interpretation * * * * EXAMINATION: CHEST RADIOGRAPH (2 VIEW FRONTAL & LATERAL) CLINICAL HISTORY: Acute cough MQ: XC2_6 EXAM DATE/TIME: 07/27/2023 1:45 PM COMPARISON: 03/26/2023 RESULT: Lines, tubes, and devices: None. Lungs and pleura: No consolidation. No lung mass. No pleural effusion. No pneumothorax. Cardiomediastinal silhouette: Mildly enlarged cardiomediastinal silhouette. Bones and soft tissues: Multiple mid and lower thoracic mild wedge vertebral deformities are stable. Scoliosis IMPRESSION IMPRESSION: Cardiomegaly No acute radiographic abnormality. [employer] Aide: [employer] Transcribe Date/Time: Jul 27 2023 4:11P Dictated by : LAM KEARNEY MD This examination was interpreted and the report reviewed and electronically signed by: LAM KEARNEY MD on Jul 27 2023 4:14PM EST [facility] Radiology Study observation (narrative) [facility] XR Chest PA and LateralOrder ed By: Ccf Provider on 07-27-2023 [facility] HEMOGLOBIN A1C (POC)on 05-27 HbA1c (Bld) [Mass fraction] 5.9 % Abnormal 4.3 - 5.6 % [facility] XR Chest PA and Lateralon IMPRESSION: Stable exam with no acute radiographic abnormality. [employer] Teacher[employer]S Aide: [employer] Transcribe Date/Time: Mar 27 2023 12:22P Dictated by : VERONIKA SAHU MD This examination was interpreted and the report reviewed and electronically signed by: VERONIKA SAHU MD on Mar 27 2023 12:23PM EST DIVISION OF RADIOLOGY * * *Final Report* * * DATE OF EXAM: Mar 26 2023 10:54AM WOX 5291 - XR CHEST 2V FRONTAL/LAT / PROCEDURE REASON: Acute cough * * * * Physician Interpretation * * * * EXAMINATION: CHEST RADIOGRAPH (2 VIEW FRONTAL & LATERAL) CLINICAL HISTORY: Acute cough MQ: XC2_6 EXAM DATE/TIME: 03/26/2023 10:54 AM COMPARISON: 03/19/2023. RESULT: Lines, tubes, and devices: None. Lungs and pleura: No consolidation. No lung mass. No pleural effusion. No pneumothorax. Cardiomediastinal silhouette: Stable cardiomediastinal silhouette with atherosclerosis of the aortic arch. Bones and soft tissues: Unremarkable. DIVISION OF RADIOLOGY Provider, [facility] - 03/27/2023 * * *Final Report* * * DATE OF EXAM: Mar 26 2023 10:54AM WOX 5291 - XR CHEST 2V FRONTAL/LAT / PROCEDURE REASON: Acute cough * * * * Physician Interpretation * * * * EXAMINATION: CHEST RADIOGRAPH (2 VIEW FRONTAL & LATERAL) CLINICAL HISTORY: Acute cough MQ: XC2_6 EXAM DATE/TIME: 03/26/2023 10:54 AM COMPARISON: 03/19/2023. RESULT: Lines, tubes, and devices: None. Lungs and pleura: No consolidation. No lung mass. No pleural effusion. No pneumothorax. Cardiomediastinal silhouette: Stable cardiomediastinal silhouette with atherosclerosis of the aortic arch. Bones and soft tissues: Unremarkable. IMPRESSION IMPRESSION: Stable exam with no acute radiographic abnormality. [employer] Aide: [employer] Transcribe Date/Time: Mar 27 2023 12:22P Dictated by : VERONIKA SAHU MD This examination was interpreted and the report reviewed and electronically signed by: VERONIKA SAHU MD on Mar 27 2023 12:23PM EST [facility] XR Chest PA and LateralOrder ed By: Ccf Provider on 03-27-2023 [facility] XR CHEST 2V FRONTAL/LATon [facility] XR Chest PA and Lateralon Radiology Study observation (narrative) [facility] XR Chest PA and Lateralon IMPRESSION: Questionable changes of bronchitis in the right perihilar region. A follow-up exam is recommended. 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[employer] Teacher'S Aide: [facility] Transcribe Date/Time: Mar 20 2023 8:16A Dictated by : VERONIKA SAHU MD This examination was interpreted and the report reviewed and electronically signed by: VERONIKA SAHU MD on Mar 20 2023 8:20AM [facility] DIVISION OF RADIOLOGY * * *Final Report* * * DATE OF EXAM: Mar 19 2023 10:57AM WOX 5291 - XR CHEST 2V FRONTAL/LAT / PROCEDURE REASON: Acute cough * * * * Physician Interpretation * * * * EXAMINATION: CHEST RADIOGRAPH (2 VIEW FRONTAL & LATERAL) CLINICAL HISTORY: Acute cough MQ: XC2_6 EXAM DATE/TIME: 03/19/2023 10:57 AM COMPARISON: 03/05/2023. RESULT: Lines, tubes, and devices: None. Lungs and pleura: There is hypoinflation of the lungs with crowded lung markings in both lung bases. There are mild and poorly defined increased bronchovascular markings in the right perihilar region which may be related to changes of bronchitis. A follow-up exam is recommended. No consolidation. No lung mass. No pleural effusion. No pneumothorax. Cardiomediastinal silhouette: Normal cardiomediastinal silhouette. Bones and soft tissues: Unremarkable. DIVISION [facility] RADIOLOGY [facility] * * *Final Report* * * DATE OF EXAM: Mar 19 2023 10:57AM WOX 5291 - XR CHEST 2V FRONTAL/LAT / PROCEDURE REASON: Acute cough * * * * Physician Interpretation * * * * EXAMINATION: CHEST RADIOGRAPH (2 VIEW FRONTAL & LATERAL) CLINICAL HISTORY: Acute cough MQ: XC2_6 EXAM DATE/TIME: 03/19/2023 10:57 AM COMPARISON: 03/05/2023. RESULT: Lines, tubes, and devices: None. Lungs and pleura: There is hypoinflation of the lungs with crowded lung markings in both lung bases. There are mild and poorly defined increased bronchovascular markings in the right perihilar region which may be related to changes of bronchitis. A follow-up exam is recommended. No consolidation. No lung mass. No pleural effusion. No pneumothorax. Cardiomediastinal silhouette: Normal cardiomediastinal silhouette. Bones and soft tissues: Unremarkable. IMPRESSION IMPRESSION: Questionable changes of bronchitis in the right perihilar region. A follow-up exam is recommended. [employer] Aide: [employer] Transcribe Date/Time: Mar 20 2023 8:16A Dictated by : VERONIKA SAHU MD This examination was interpreted and the report reviewed and electronically signed by: VERONIKA SAHU MD on Mar 20 2023 8:20AM EST [facility] XR Chest PA and LateralOrder ed By: Ccf Provider on 03-20-2023 [facility] XR Chest PA and Lateralon Radiology Study observation (narrative) [facility] XR CHEST 2V FRONTAL/LATon [facility] XR Chest PA and Lateralon IMPRESSION: Decreased prominence of left lower lobe airspace disease. Follow-up until resolution is recommended. [employer] Aide: [employer] Transcribe Date/Time: Mar 05 2023 9:56A Dictated by : ROSENDO SHAH MD This examination was interpreted and the report reviewed and electronically signed by: ROSENDO SHAH MD on Mar 05 2023 9:58AM [facility] DIVISION OF RADIOLOGY * * *Final Report* * * DATE OF EXAM: Mar 05 2023 9:48AM WOX 5291 - XR CHEST 2V FRONTAL/LAT / PROCEDURE REASON: Subacute cough * * * * Physician Interpretation * * * * EXAMINATION: CHEST RADIOGRAPH (2 VIEW FRONTAL & LATERAL) CLINICAL HISTORY: Subacute cough MQ: XC2_6 EXAM DATE/TIME: 03/05/2023 9:48 AM COMPARISON: Chest x-ray 02/12/2023 RESULT: Lines, tubes, and devices: None. Lungs and pleura: Decreased prominence of left lower lobe airspace disease.. No lung mass. No pleural effusion. No pneumothorax. Cardiomediastinal silhouette: Stable cardiac mediastinal silhouette. Bones and soft tissues: Kyphosis and degenerative disease of the thoracic spine. DIVISION OF RADIOLOGY Provider, [facility] - 03/05/2023 * * *Final Report* * * DATE OF EXAM: Mar 05 2023 9:48AM WOX 5291 - XR CHEST 2V FRONTAL/LAT / PROCEDURE REASON: Subacute cough * * * * Physician Interpretation * * * * EXAMINATION: CHEST RADIOGRAPH (2 VIEW FRONTAL & LATERAL) CLINICAL HISTORY: Subacute cough MQ: XC2_6 EXAM DATE/TIME: 03/05/2023 9:48 AM COMPARISON: Chest x-ray 02/12/2023 RESULT: Lines, tubes, and devices: None. Lungs and pleura: Decreased prominence of left lower lobe airspace disease.. No lung mass. No pleural effusion. No pneumothorax. Cardiomediastinal silhouette: Stable cardiac mediastinal silhouette. Bones and soft tissues: Kyphosis and degenerative disease of the thoracic spine. IMPRESSION IMPRESSION: Decreased prominence of left lower lobe airspace disease. Follow-up until resolution is recommended. [employer] Aide: [employer] Transcribe Date/Time: Mar 05 2023 9:56A Dictated by : ROSENDO SHAH MD This examination was interpreted and the report reviewed and electronically signed by: ROSENDO SHAH MD on Mar 05 2023 9:58AM EST [facility] Radiology Study observation (narrative) [facility] XR Chest PA and LateralOrder ed By: Ccf Provider on 03-05-2023 [facility] No Panel InformationOrdered By: Ccf Provider on 02-12-2023 Radiology Result ACTIONABLE Abnormal [facility] Comment on above: This report contains an incidental or actionable finding. This finding may be a new finding separate from the reason your provider ordered the imaging test or it may be an already known finding that needs additional or continued follow-up. Because of this incidental or actionable finding, you may need another test (imaging or a different type of test). Please contact your provider for the next steps. XR Chest PA and LateralOrder ed By: Cc Provider on 02-12-2023 Interpretation and review of laboratory results Abnormal [facility] XR Chest PA and Lateralon IMPRESSION: Left lower lobe pneumonia Follow-up to document resolution recommended ACTIONABLE RESULT: FOLLOW-UP Acuity: Actionable Findings: Thoracic-Other Routing Code: CT_1 Recommendation: Unlisted Recommendation (see report) Time Frame: At the discretion of the clinical team. COMMUNICATION: Results will be communicated with the ordering provider via [employer] staff message or phone message by [employer] [facility] within 2 business days of report finalization. --END OF FINDING-- [employer] Aide: [employer] Transcribe Date/Time: Feb 12 2023 10:34A Dictated by : LAM KEARNEY MD This examination was interpreted and the report reviewed and electronically signed by: LAM KEARNEY MD on Feb 12 2023 10:37AM [facility] DIVISION OF RADIOLOGY * * *Final Report* * * DATE OF EXAM: Feb 12 2023 10:32AM WOX 5291 - XR CHEST 2V FRONTAL/LAT / PROCEDURE REASON: Acute cough * * * * Physician Interpretation * * * * EXAMINATION: CHEST RADIOGRAPH (2 VIEW FRONTAL & LATERAL) CLINICAL HISTORY: Acute cough MQ: XC2_6 EXAM DATE/TIME: 02/12/2023 10:32 AM COMPARISON: 09/22/2021 RESULT: Lines, tubes, and devices: None. Lungs and pleura: . No lung mass. No pleural effusion. No pneumothorax. New airspace disease in the left lower lobe. Lung christianson are otherwise clear Cardiomediastinal silhouette: Stable cardiomediastinal silhouette. Bones and soft tissues: Multilevel degenerative change and osteophytosis. Mild wedging of several lower thoracic vertebral bodies. Stable DIVISION OF RADIOLOGY Provider, [facility] Clarisse luz [place] - 02/12/2023 * * *Final Report* * * DATE OF EXAM: Feb 12 2023 10:32AM WOX 5291 - XR CHEST 2V FRONTAL/LAT / PROCEDURE REASON: Acute cough * * * * Physician Interpretation * * * * EXAMINATION: CHEST RADIOGRAPH (2 VIEW FRONTAL & LATERAL) CLINICAL HISTORY: Acute cough MQ: XC2_6 EXAM DATE/TIME: 02/12/2023 10:32 AM COMPARISON: 09/22/2021 RESULT: Lines, tubes, and devices: None. Lungs and pleura: . No lung mass. No pleural effusion. No pneumothorax. New airspace disease in the left lower lobe. Lung christianson are otherwise clear Cardiomediastinal silhouette: Stable cardiomediastinal silhouette. Bones and soft tissues: Multilevel degenerative change and osteophytosis. Mild wedging of several lower thoracic vertebral bodies. Stable IMPRESSION IMPRESSION: Left lower lobe pneumonia Follow-up to document resolution recommended ACTIONABLE RESULT: FOLLOW-UP Acuity: Actionable Findings: Thoracic-Other Routing Code: CT_1 Recommendation: Unlisted Recommendation (see report) Time Frame: At the discretion of the clinical team. COMMUNICATION: Results will be communicated with the ordering provider via [employer] staff message or phone message by [facility] within 2 business days of report finalization. --END OF FINDING-- [employer] Aide: [employer] Transcribe Date/Time: Feb 12 2023 10:34A Dictated by : LAM KEARNEY MD This examination was interpreted and the report reviewed and electronically signed by: LAM KEARNEY MD on Feb 12 2023 10:37AM EST [facility] Radiology Study observation (narrative) [facility] XR Lumbar spine 3 Viewson IMPRESSION: DEGENERATIVE CHANGE, SCOLIOSIS, SUPERIOR ENDPLATE FRACTURE OF L2. AGE INDETERMINATE [employer] Teacher[employer]S Aide: [employer] Transcribe Date/Time: Nov 25 2022 4:45P Dictated by : LAM KEARNEY MD This examination was interpreted and the report reviewed and electronically signed by: LAM KEARNEY MD on Nov 25 2022 4:47PM EST DIVISION OF RADIOLOGY * * *Final Report* * * DATE OF EXAM: Nov 24 2022 2:23PM WOX 5228 - XR LUMBAR 3V AP/LAT/L5-S1 / PROCEDURE REASON: multiple diagnoses * * * * Physician Interpretation * * * * Examination: XR LUMBAR 3V AP/LAT/L5-S1 History: 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 Technique: XR LUMBAR 3V AP/LAT/L5-S1 Comparison: None RESULT: 5 nonrib-bearing lumbar-type vertebrae. For numbering purposes, L4-5 is at the level of the iliac crest. Dextroscoliosis of 25 degrees as measured from inferior L1 to superior L5. Severe disc space narrowing at L3-4, L4-5 and L5-S1. Degenerative change involving the posterior elements from L3 through S1. L2 superior endplate fracture at approximately 50% loss of height. Age indeterminate. Diffuse osteopenia DIVISION OF RADIOLOGY Provider, Erin Clar[facility] - 11/25/2022 * * *Final Report* * * DATE OF EXAM: Nov 24 2022 2:23PM WOX 5228 - XR LUMBAR 3V AP/LAT/L5-S1 / PROCEDURE REASON: multiple diagnoses * * * * Physician Interpretation * * * * Examination: XR LUMBAR 3V AP/LAT/L5-S1 History: 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 Technique: XR LUMBAR 3V AP/LAT/L5-S1 Comparison: None RESULT: 5 nonrib-bearing lumbar-type vertebrae. For numbering purposes, L4-5 is at the level of the iliac crest. Dextroscoliosis of 25 degrees as measured from inferior L1 to superior L5. Severe disc space narrowing at L3-4, L4-5 and L5-S1. Degenerative change involving the posterior elements from L3 through S1. L2 superior endplate fracture at approximately 50% loss of height. Age indeterminate. Diffuse osteopenia IMPRESSION IMPRESSION: DEGENERATIVE CHANGE, SCOLIOSIS, SUPERIOR ENDPLATE FRACTURE OF L2. AGE INDETERMINATE [employer] Aide: [employer] Transcribe Date/Time: Nov 25 2022 4:45P Dictated by : LAM KEARNEY MD This examination was interpreted and the report reviewed and electronically signed by: LAM KEARNEY MD on Nov 25 2022 4:47PM [facility] XR Lumbar spine 3 ViewsOrder ed By: Cc Provider on 11-25-2022 [facility] VITAMIN D 25 HYDROXYon 11-24 25-hydroxyvitamin D3 [Mass/Vol] 53.0 ng/mL 31.0 - 80.0 ng/mL [facility] XR Lumbar spine 3 Viewson Radiology Study observation (narrative) [facility] HEMOGLOBIN A1C (POC)on 05-27 HbA1c (Bld) [Mass fraction] 6.0 % 4.2 - 5.6 % [facility] HEP C AB IA W/CONF SCRNon HCV Ab Ql (S) Negative Negative [facility] CITRATED PLATELET COUNTon Citrated Platelet Count [facility] XR Chest PA and Lateralon IMPRESSION: No acute radiographic abnormality. [employer]: [employer] Transcribe Date/Time: Sep 22 2021 11:23A Dictated by : INDIO MALIK MD This examination was interpreted and the report reviewed and electronically signed by: INDIO MALIK MD on Sep 22 2021 11:27AM EST [facility]_DO_NOT_ USE_DIVISIO N OF RADIOLOGY * * *Final Report* * * DATE OF EXAM: Sep 22 2021 11:22AM WOX 5291 - XR CHEST 2V FRONTAL/LAT / PROCEDURE REASON: Cough * * * * Physician Interpretation * * * * EXAMINATION: CHEST RADIOGRAPH (2 VIEW FRONTAL & LATERAL) CLINICAL HISTORY: Cough MQ: XC2_6 EXAM DATE/TIME: 09/22/2021 11:22 AM COMPARISON: Chest x-ray dated September 03, 2015 RESULT: Lines, tubes, and devices: None. Lungs and pleura: No consolidation. Stable calcified granuloma projects over the right lower lateral hemithorax.. No pleural effusion. No pneumothorax. Cardiomediastinal silhouette: Stable cardiomediastinal silhouette with atherosclerotic calcification of the aorta. Bones and soft tissues: Degenerative changes are present within the thoracic spine. [id number]_NOT_ USE_DIVISIO N OF RADIOLOGY Provider, [facility] Clarisse [facility]ru[facility] - 09/22/2021 * * *Final Report* * * DATE OF EXAM: Sep 22 2021 11:22AM WOX 5291 - XR CHEST 2V FRONTAL/LAT / PROCEDURE REASON: Cough * * * * Physician Interpretation * * * * EXAMINATION: CHEST RADIOGRAPH (2 VIEW FRONTAL & LATERAL) CLINICAL HISTORY: Cough MQ: XC2_6 EXAM DATE/TIME: 09/22/2021 11:22 AM COMPARISON: Chest x-ray dated September 03, 2015 RESULT: Lines, tubes, and devices: None. Lungs and pleura: No consolidation. Stable calcified granuloma projects over the right lower lateral hemithorax.. No pleural effusion. No pneumothorax. Cardiomediastinal silhouette: Stable cardiomediastinal silhouette with atherosclerotic calcification of the aorta. Bones and soft tissues: Degenerative changes are present within the thoracic spine. IMPRESSION IMPRESSION: No acute radiographic abnormality. [employer] Teacher[employer]S Aide: [facility] Transcribe Date/Time: Sep 22 2021 11:23A Dictated by : INDIO MALIK MD This examination was interpreted and the report reviewed and electronically signed by: INDIO MALIK MD on Sep 22 2021 11:27AM EST [facility] Radiology Study observation (narrative) [facility] XR Chest PA and LateralOrder ed By: Ccf Provider on 09-22-2021 [facility] No Panel Informationon 11-21 IMPRESSION: Acute comminuted intra-articular fracture involving the radial head and neck. Associated elbow joint effusion. Possible fracture of the medial humeral epicondyle. Scapholunate ligament disruption of uncertain age. [employer] Teacher'S Aide: [facility] Transcribe Date/Time: Nov 21 2020 5:35P Dictated by : BRENDEN LACY MD This examination was interpreted and the report reviewed and electronically signed by: BRENDEN LACY MD on Nov 21 2020 5:38PM [facility] DIVISION OF RADIOLOGY Radiology Study observation (narrative) [facility] No Panel InformationOrdered By: Ccf Provider on 11-21-2020 [facility] XR Elbow - left AP and Later al and obliqueon 11-21-2020 * * *Final Report* * * DATE OF EXAM: Nov 21 2020 5:32PM WOX 5324 - XR ELBOW 3V AP/LAT/OTHER LT / PROCEDURE REASON: Elbow pain, left * * * * Physician Interpretation * * * * Left elbow and wrist radiographs HISTORY: 85 years old Clinical information: Elbow pain, left Pt fell today. Diffuse left wrist pain. Left radial sided elbow pain. TECHNIQUE: Images: XR ELBOW 3V AP/LAT/OTHER LT, XR WRIST 3V PA/LAT/OBL LT Comparison: None. Left elbow RESULT: Comminuted intra-articular fracture involving the radial head and neck. Possible fracture of the medial humeral epicondyles. Marginal osteophyte formation subjacent to the medial and lateral joint space. Joint effusion. Soft tissue swelling of the proximal forearm. Left wrist RESULT: Widening of the scapholunate interval. Osteophyte formation subjacent to the first metacarpal phalangeal joint and interphalangeal joint of the thumb. Narrowing of the second metacarpal phalangeal joint. No fracture. Chondrocalcinosis involving the wrist. No soft tissue abnormality identified. DIVISION OF RADIOLOGY Provider, [facility] - 11/21/2020 * * *Final Report* * * DATE OF EXAM: Nov 21 2020 5:32PM WOX 5324 - XR ELBOW 3V AP/LAT/OTHER LT / PROCEDURE REASON: Elbow pain, left * * * * Physician Interpretation * * * * Left elbow and wrist radiographs HISTORY: 85 years old Clinical information: Elbow pain, left Pt fell today. Diffuse left wrist pain. Left radial sided elbow pain. TECHNIQUE: Images: XR ELBOW 3V AP/LAT/OTHER LT, XR WRIST 3V PA/LAT/OBL LT Comparison: None. Left elbow RESULT: Comminuted intra-articular fracture involving the radial head and neck. Possible fracture of the medial humeral epicondyles. Marginal osteophyte formation subjacent to the medial and lateral joint space. Joint effusion. Soft tissue swelling of the proximal forearm. Left wrist RESULT: Widening of the scapholunate interval. Osteophyte formation subjacent to the first metacarpal phalangeal joint and interphalangeal joint of the thumb. Narrowing of the second metacarpal phalangeal joint. No fracture. Chondrocalcinosis involving the wrist. No soft tissue abnormality identified. IMPRESSION IMPRESSION: Acute comminuted intra-articular fracture involving the radial head and neck. Associated elbow joint effusion. Possible fracture of the medial humeral epicondyle. Scapholunate ligament disruption of uncertain age. 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 Diffuse left wrist pain. Left radial sided elbow pain. TECHNIQUE: Images: XR ELBOW 3V AP/LAT/OTHER LT, XR WRIST 3V PA/LAT/OBL LT Comparison: None. Left elbow RESULT: Comminuted intra-articular fracture involving the radial head and neck. Possible fracture of the medial humeral epicondyles. Marginal osteophyte formation subjacent to the medial and lateral joint space. Joint effusion. Soft tissue swelling of the proximal forearm. Left wrist RESULT: Widening of the scapholunate interval. Osteophyte formation subjacent to the first metacarpal phalangeal joint and interphalangeal joint of the thumb. Narrowing of the second metacarpal phalangeal joint. No fracture. Chondrocalcinosis involving the wrist. No soft tissue abnormality identified. DIVISION OF RADIOLOGY Provider, [facility] - 11/21/2020 * * *Final Report* * * DATE OF EXAM: Nov 21 2020 5:32P WOX 5270 - XR WRIST 3V PA/LAT/OBL LT / PROCEDURE REASON: Acute wrist pain, left * * * * Physician Interpretation * * * * Left elbow and wrist radiographs HISTORY: 85 years old Clinical information: Elbow pain, left Pt fell today. Diffuse left wrist pain. Left radial sided elbow pain. TECHNIQUE: Images: XR ELBOW 3V AP/LAT/OTHER LT, XR WRIST 3V PA/LAT/OBL LT Comparison: None. Left elbow RESULT: Comminuted intra-articular fracture involving the radial head and neck. Possible fracture of the medial humeral epicondyles. Marginal osteophyte formation subjacent to the medial and lateral joint space. Joint effusion. Soft tissue swelling of the proximal forearm. Left wrist RESULT: Widening of the scapholunate interval. Osteophyte formation subjacent to the first metacarpal phalangeal joint and interphalangeal joint of the thumb. Narrowing of the second metacarpal phalangeal joint. No fracture. Chondrocalcinosis involving the wrist. No soft tissue abnormality identified. IMPRESSION IMPRESSION: Acute comminuted intra-articular fracture involving the radial head and neck. Associated elbow joint effusion. Possible fracture of the medial humeral epicondyle. Scapholunate ligament disruption of uncertain age. Elementary School Teacher'S Aide: BEBETO Transcribe Date/Time: Nov 21 2020 5:35P Dictated by : BRENDEN LACY MD This examination was interpreted and the report reviewed and electronically signed by: BRENDEN LACY MD on Nov 21 2020 5:38PM EST [facility] CNNURSEon 06-07-2020 CNNURSE Nurse Visit (COVAMGela) KRYSTYNA KHANNA ([id number]) 1935 F Date Time Provider Department 06/07/20 BRANDEE HARDING JR During your visit today, we recorded the following information about you: Allergies As of Date: 06/07/2020 Noted Allergy Reaction DARVOCET A500 (PROPOXYPHENE N-APOLINAR*04/26/2012 16 - Unknown SULFA (SULFONAMIDE ANTIBIOTICS) 04/26/2012 14 - Other: See Comments Comments: didn't feel right, nervousness Date Reviewed: 03/28/2020 Reviewed by: Ling Shields Ma - Fully Assessed Order(s):[employer] [place] SARS-COV-2 VACCINE 2D DOSE APPT [[id number]] Order #: [id number] Prescriptions as of 06/07/2020 Sig: XARELTO 20 MG TABLET Take 1 tablet by mouth once d* RALOXIFENE 60 MG TABLET Take 1 tablet by mouth once d* METOPROLOL SUCCINATE ER 50 MG* Take 1 tablet by mouth once d* LUBRICANT EYE 57.3 %-42.5 % O* Use 1 Drop in the right eye t* CHOLECALCIFEROL (VITAMIN D3) * Take 1 capsule by mouth once * MULTIVITAMIN TABLET Take 1 tablet by mouth once d* VIT A 7,160 UNIT-VIT C 113 MG* Take by mouth. ACETAMINOPHEN 500 MG TABLET Take 500 mg by mouth every 6 * FISH OIL ORAL Take 1,000 mg by mouth once d* CALCIUM + D ORAL Take by mouth. Problem List As Of Date 06/07/2020 Noted Resolved Bilateral Knee Pain [M25.561, M25.562] 01/09/2010 Osteoarthritis [M19.90] 11/01/2017 HTN (hypertension) [I10] 11/08/2017 Atrial fibrillation (HCC) [I48.91] 11/08/2017 Hepatitis [K75.9] 11/08/2017 Hyperglycemia [R73.9] 11/08/2017 Non morbid obesity [E66.9] 11/08/2017 Arthritis of knee [M17.10] 11/19/2017 12/23/2017 Primary osteoarthritis of left knee [M17.12] 11/24/2017 12/23/2017 [place] [place] [facility] Office Visit (AGCARDWST) -------KRYSTYNA KHANNA ([id number]) 1935 [facility] Time Provider Department07/15/17 10:00 AM RAMO BARAHONA AGCARDWST During your visit today, we recorded the following information about you: Pulse Blood pressure Weight Height 64/minute 120/84 84.5 kg 1.473 Kamilla Barahona MD 07/15/2017 5:49 PM SignedPERTINENT CARDIAC HISTORYPAF - asymptomaticRBBBHTNDMADHEREN CE TO GUIDELINESACE-I or ARB for HF with prior LVEFANDlt;40 (NQF 0081) - N/AASA or Plavix for ASHD (NQF 0067) - N/ABeta rina for ASHD with prior PR or prior LVEFANDlt;40 (NQF 0070) - N/ABeta rina for HF with prior LVEFANDlt;40 (NQF 0083) - N/AACE-I or ARB for ASHD with DM or prior LVEFANDlt;40 (NQ 0066) - N/AStatin therapy for ASHD or FHL or DM - N/ABMI documented and plan if ANDgt;25 (NQ 0421) - lifestyle recommendation formTobacco use screening and referral (NQ 0028) - lifestyle recommendation formRecommendation for whole food, plant based diet - lifestyle recommendation formCLINICAL IMPRESSION/PLAN:Krystyna Khanna at least one episode of atrial fibrillation with rapidventricular response. She was asymptomatic. I've asked her to be more consciousof her pulse rate. She's been advised to continue her anticoagulants and betablocker for the time being. If she has breakthrough, we will consider adding anantiarrhythmic drug.There is no evidence of ischemia or left ventricular dysfunction. She toleratedthe rapid atrial fibrillation well.There is no contraindication to surgery as planned. No further studies arerecommended prior to surgery. Xarelto may be held 24 hours prior to surgery, atreasonably low risk. Beta rina should be continued perioperatively. If shehas recurrent atrial fibrillation while hospitalized, I would initiate therapywith low-dose flecainide at 50 milligrams twice daily and make sure EKG is done72 hours later.I've asked her to call me should she have recurrent symptoms. I will see her in3 months or as needed.Written and verbal health teaching given to patient, patient verbalizesunderstanding and agrees with treatment plan.DIAGNOSIS FOR VISIT:Atrial fibrillationPreoperative cardiac risk assessmentHISTORY OF PRESENT ILLNESSKrystyna Khanna is an 82-year-old woman who is seen in consultation at [facility] of Dr. Maier, who plans knee surgery. She was recently found to haveelevated heart rate and borderline low blood pressure in the office. She wassent to the emergency department where she was documented to be in atrialfibrillation. She converted spontaneously after receiving intravenousmetoprolol.She was unaware of her heart rhythm. She's had no previous history of cardiacproblems. While at [facility], she underwent stress test. There wasreportedly no evidence of acute coronary syndrome.She denies chest discomfort. Her activity has been limited by knee pain. Shedenies TIAs, amaurosis, claudication. She's had no sensation of palpitations.She denies syncope or near-syncope.She has history of diabetes and hypertension. She does not remember ever havingan EKG in the past.ALLERGIES:ALLERGIESAlle rgen Reactions- Darvocet A500 [Prop* Unknown- Sulfa (Sulfonamide * Other: See Comments ANDquot;didn't feel rightANDquot;, nervousnessCURRENT OUTPATIENT MEDICATIONS:metoprolol succinate ER (TOPROL XL) 50 mg 24 hr tablet Take 0.5 tablets bymouth once daily.XARELTO 20 mg tablet Take 1 tablet by mouth once daily.multivitamin tablet Take 1 tablet by mouth once daily.vit A-vit C-vit P-xbyf-jvanbv (EYE VITAMIN AND MINERALS) 7,022-812-374oxlh-mg-unit tab Take by mouth.FLUTICASONE PROPIONATE (FLONASE NASAL) Use in the nose. as neededacetaminophen (TYLENOL EXTRA STRENGTH) 500 mg tablet Take 500 mg by mouth every6 hours as needed.triamcinolone acetonide 0.1 % cream Apply 1 application to affected area asneeded.CHOLECALCIFEROL, VITAMIN D3, (VITAMIN D3 ORAL) Take by mouth. 1000 units dailyCALCIUM CARBONATE/VITAMIN D3 (CALCIUM + D ORAL) Take by mouth.raloxifene (EVISTA) 60 mg ORAL Tab taking every other daytraMADol 50 mg tablet Take by mouth every 6 hours as needed.lisinopril-hydrochlor othiazide 10-12.5 mg per tablet Take 1 tablet by mouthonce daily.DOCOSAHEXANOIC ACID/EPA (FISH OIL ORAL) Take 1,000 mg by mouth once daily.BOSWELLIA CANDIDA EXTRACT (BOSWELLIA CANDIDA XT, [place]K, [facility] [place]PAST MEDICAL HISTORYDiagnosis Date- Hepatitis thinks B- History of congestive heart failure- History of heart attack- HTN (hypertension)- Hyperglycemia- OsteoarthritisPAST SURGICAL HISTORYProcedure Laterality Date- PAST SURGICAL HISTORY OF 2004 right knee replacementFAMILY HISTORYProblem Relation Age of Onset- Heart Mother- Heart Father- Breast Cancer Maternal Aunt- Diabetes Maternal Aunt- Diabetes Other cousin- Cancer Paternal Grandmother stomach- Heart Sister- Breast Cancer SisterSocial History Marital status: Spouse name: Years of education: Number of children:Social History Main Topics Smoking status: Never Smoker Smokeless status: Never Used Alcohol use: NoREVIEW OF SYSTEMS: General: No chills, fever, weight loss, night sweats.SHEENT: No change in vision or auditory acuity. Respiratory: No productivecough. Cardiac: As noted above. GI: No melena. : No dysuria.Musculoskeletal: As above . Neurologic: No strokes. Psychiatric: Nodepression. Endocrine: Positive for diabetes. Hematologic: No anemia.PHYSICAL EXAMINATION: S/he is alert and in no distressVITAL SIGNS: BP 120/84 Pulse 64 Ht 4' 10ANDquot; (1.47m) Wt 186 lb 4.8 oz(84.5kg) BMI 38.95 kg/(m2).SHEENT: Skin is warm and dry. Pupils are round and reactive. Retinal vesselsare grossly unremarkable. No xanthelasmas appreciated. Pharynx is benign.There is no oral cyanosis. Neck: supple. No adenopathy or thyroidenlargement. Chest: Clear to percussion and auscultation. Trachea is midline. Air entry is equal. There is no chest wall tenderness. Cardiac: Regularrhythm. S1 and S2 are normal. PMI is nondisplaced. There is a soft systolicejection murmur. No click is heard. Carotids are brisk without bruits. JVPis less than 10 cm. Abdomen: Soft and nontender. There are no pulsatilemasses or bruits. Obesity limits examination. No liver enlargement. Bowelsounds are active. : Deferred. Extremities: No edema. Pulses are intactand symmetrical. No clubbing or cyanosis. No femoral bruits. Neurologic:Grossly normal motor and sensory. S/he is alert and oriented x4.Musculoskeletal: Antalgic gait.EKG demonstrates sinus rhythm with occasional ventricular prematures. There isright bundle branch block. No change is seen since tracing of 06/03/17,following cardioversion. She presented with atrial flutter and right bundlebranch block.Laboratory studies during that admission showed normal renal function. Troponinwas undetectable. BNP was normal. TSH is normal.She was started on Xarelto and beta rina. Echocardiogram reportedly showednormal left ventricular function. There is no significant valvular diseaseother than moderate tricuspid insufficiency. Pharmacologic nuclear stress testshowed no evidence of ischemia.Electronically Signed:Ramo Barahona [facility] 2017 10:52 [facility]: Pedro Smith III, MD 07/15/2017 10:52 AM SignedLIFESTRISA CHANGEA healthy lifestyle is the most important component of your overall treatmentplan. Please give serious thought to the following areas and commit to makinglong term changes.EAT A WHOLE FOOD, PLANT BASED DIETThe nutrition your body gets is more important than the medicine you take.What matters most is the overall way you eat. We encourage you to minimize theuse of animal products (which include dairy and all meats except fatty fish)and use whole, unprocessed plant foods to provide your protein, vitamins andother nutrients. We have a lot of information to share with you on this topic. We also hold Shared Medical Appointments, where you can come visit with in the company of other patients and spend over an hour talking aboutthe challenges of changing the way you eat. This is not a ANDquot;dietANDquot;.It is a way of life that you will keep with you.EXERCISE REGULARLYIt is not important to spend hours in the gym, lifting weights and perspiringheavily. A total of 2-3 hours per week of aerobic (causing you to bemoderately short of breath) exercise is sufficient to improve your health.Talk to us before you begin a new exercise program, if you have heart diseaseor experience shortness of breath or chest pain.REDUCE STRESSChronic emotional and physical stress leads to disease. Ways of reducingstress include meditation, visualization, prayer, yoga and other forms ofrelaxation therapy. Consistency is the moran. Find a technique that works foryou and do it every day.CULTIVATE RELATIONSHIPSLoneliness and isolation have a major negative impact on health. Seek outothers who can love, care for and nurture you. Avoid hurtful relationships.MAINTAIN IDEAL BODY WEIGHTThe best way to do this is to do all the things above. Our bodies naturallyfind the right weight if we keep moving and feed ourselves the right food. Ifyour BMI is greater than 25, we strongly recommend a referral to a weightmanagement program. Please speak to us or your family physician aboutavailable programs.AVOID NICOTINE IN ALL FORMSThis includes all tobacco products, whether chewed, smoked, vaped, or rubbed onthe skin. Smoking cessation programs, which can make use of tobaccosubstitutes, medications to suppress cravings and behavior management, areavailable. Please contact your family physician about programs in your area.Kris Dsouza, RN, RN 07/16/2017 8:48 AM SignedCopy of OV note mailed to Dr. Evette SEGUNDO's office.Referring Provider: SELF [[id number]]Allergies As of Date: 07/15/2017 Noted Allergy ReactionDARVOCET A500 (PROPOXYPHENE N-APOLINAR*04/26/2012 16 - UnknownSULFA (SULFONAMIDE ANTIBIOTICS) 04/26/2012 14 - Other: See Comments Comments: didn't feel right, nervousnessDate Reviewed: 07/15/2017Reviewed by: Samanta Thomas) Iron - Fully AssessedReason for Visit: New Patient [172]Primary Visit Diagnosis:Preop cardiovascular exam [Z01.810] Other Visit Diagnoses:Hypertension, essential [I10] PAF (paroxysmal atrial fibrillation) ([facility]) [I48.0]Order(s):ECG B/O W INTERP (MED OFFICE) [ECG06] Order #: [id number] as of 07/15/2017 Sig: METOPROLOL SUCCINATE ER 50 MG* Take 0.5 tablets by mouth onc* XARELTO 20 MG TABLET Take 1 tablet by mouth once d* MULTIVITAMIN TABLET Take 1 tablet by mouth once d* VIT A 7,160 UNIT-VIT C 113 MG* Take by mouth. FLONASE NASAL Use in the nose. as needed ACETAMINOPHEN 500 MG TABLET Take 500 mg by mouth every 6 * TRIAMCINOLONE ACETONIDE 0.1 %* Apply 1 application to affect* VITAMIN D3 ORAL Take by mouth. 1000 units da* CALCIUM + D ORAL Take by mouth. * EVISTA 60 MG TABLET taking every other day TRAMADOL 50 MG TABLET Take by mouth every 6 hours a* LISINOPRIL 10 MG-HYDROCHLOROT* Take 1 tablet by mouth once d* FISH OIL ORAL Take 1,000 mg by mouth once d* BOSWELLIA CANDIDA XT (BULK) M*Medication notes this encounter LISINOPRIL 10 MG-HYDROCHLOROTHIAZIDE 12.5 MG TABLET >> Samanta Perdue MA 07/15/2017 10:25 AM >> SAMANTA PERDUE MA [facility] Jul 15, 2017 10:25 AM Not takingProblem List As Of Date 07/15/2017 Noted Resolved Bilateral Knee Pain [M25.561, M25.562] INVALID FOR* Other instructions from your clinician: LIFESTYLE CHANGE A healthy lifestyle is the most important component of your overall treatment plan. 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 EAT A WHOLE FOOD, PLANT BASED DIET The nutrition your body gets is more important than the medicine you take. What matters most is the overall way you eat. We encourage you to minimize the use of animal products (which include dairy and all meats except fatty fish) and use whole, unprocessed plant foods to provide your protein, vitamins and other nutrients. We have a lot of information to share with you on this topic. We also hold Shared Medical Appointments, where you can come visit with Dr. Barahona in the company of other patients and spend over an hour talking about the challenges of changing the way you eat. This is not a diet. It is a way of life that you will keep with you. EXERCISE REGULARLY It is not important to spend hours in the gym, lifting weights and perspiring heavily. A total of 2-3 hours per week of aerobic (causing you to be moderately short of breath) exercise is sufficient to improve your health. Talk to us before you begin a new exercise program, if you have heart disease or experience shortness of breath or chest pain. REDUCE STRESS Chronic emotional and physical stress leads to disease. Ways of reducing stress include meditation, visualization, prayer, yoga and other forms of relaxation therapy. Consistency is the moran. Find a technique that works for you and do it every day. CULTIVATE RELATIONSHIPS Loneliness and isolation have a major negative impact on health. Seek out others who can love, care for and nurture you. Avoid hurtful relationships. MAINTAIN IDEAL BODY WEIGHT The best way to do this is to do all the things above. Our bodies naturally find the right weight if we keep moving and feed ourselves the right food. If your BMI is greater than 25, we strongly recommend a referral to a weight management program. Please speak to us or your family physician about available programs. AVOID NICOTINE IN ALL FORMS This includes all tobacco products, whether chewed, smoked, vaped, or rubbed on the skin. Smoking cessation programs, which can make use of tobacco substitutes, medications to suppress cravings and behavior management, are available. Please contact your family physician about programs in your area.Visit Notes:>> Kris (Rn) XOCHITL Dsouza WedJul 16, 2017 8:47 AM Status: SignedCopy of OV note mailed to Dr. Evette SEGUNDO's office.Follow-up and Disposition History RecordedEncounter Number: [id number] Status:Closed by RAMO BARAHONA MD on 07/15/17 [facility] PROGRESSon 07-15-2017 PROGRESS HNO ID: [id number] thor: Ramo Crystal: (none)Author Type: PhysicianType: Progress NotesFiled: 07/15/2017 5:49 PMNote Text:PERTINENT CARDIAC HISTORYPAF - asymptomaticRBBBHTNDMADHEREN CE TO GUIDELINESACE-I or ARB for HF with prior LVEF<40 (NQF 0081) - N/AASA or Plavix for ASHD (NQF 0067) - N/ABeta rina for ASHD with prior PR or prior LVEF<40 (NQF 0070) - N/ABeta rina for HF with prior LVEF<40 (NQF 0083) - N/AACE-I or ARB for ASHD with DM or prior LVEF<40 (NQF 0066) - N/AStatin therapy for ASHD or FHL or DM - N/ABMI documented and plan if >25 (NQF 0421) - lifestyle recommendation formTobacco use screening and referral (NQF 0028) - lifestyle recommendationformRecommenda tion for whole food, plant based diet - lifestyle recommendationformCLINICAL IMPRESSION/PLAN:Krystyna Khanna at least one episode of atrial fibrillation with rapidventricular response. She was asymptomatic. I've asked her to be moreconscious of her pulse rate. She's been advised to continue heranticoagulants and beta rina for the time being. If she hasbreakthrough, we will consider adding an antiarrhythmic drug.There is no evidence of ischemia or left ventricular dysfunction. Shetolerated the rapid atrial fibrillation well.There is no contraindication to surgery as planned. No further studies arerecommended prior to surgery. Xarelto may be held 24 hours prior tosurgery, at reasonably low risk. Beta rina should be continuedperioperatively. If she has recurrent atrial fibrillation whilehospitalized, I would initiate therapy with low-dose flecainide at 50milligrams twice daily and make sure EKG is done 72 hours later.I've asked her to call me should she have recurrent symptoms. I will seeher in 3 months or as needed.Written and verbal health teaching given to patient, patient verbalizesunderstanding and agrees with treatment plan.DIAGNOSIS FOR VISIT:Atrial fibrillationPreoperative cardiac risk assessmentHISTORY OF PRESENT ILLNESSKrystyna Khanna is an 82-year-old woman who is seen in consultation at [facility] of Dr. Maier, who plans knee surgery. She was recently found tohave elevated heart rate and borderline low blood pressure in the office.She was sent to the emergency department where she was documented to be inatrial fibrillation. She converted spontaneously after receivingintravenous metoprolol.She was unaware of her heart rhythm. She's had no previous history ofcardiac problems. While at [facility], she underwent stress test.There was reportedly no evidence of acute coronary syndrome.She denies chest discomfort. Her activity has been limited by knee pain.She denies TIAs, amaurosis, claudication. She's had no sensation ofpalpitations. She denies syncope or near-syncope.She has history of diabetes and hypertension. She does not remember everhaving an EKG in the past.ALLERGIES:ALLERGIESAlle rgen Reactions- Darvocet A500 [Prop* Unknown- Sulfa (Sulfonamide * Other: See Comments didn't feel right, nervousnessCURRENT OUTPATIENT MEDICATIONS:metoprolol succinate ER (TOPROL XL) 50 mg 24 hr tablet Take 0.5 tablets bymouth once daily.XARELTO 20 mg tablet Take 1 tablet by mouth once daily.multivitamin tablet Take 1 tablet by mouth once daily.vit A-vit C-vit C-ulkx-qbrclw (EYE VITAMIN AND MINERALS) 7,[id number]-mg-unit tab Take by mouth.FLUTICASONE PROPIONATE (FLONASE NASAL) Use in the nose. as neededacetaminophen (TYLENOL EXTRA STRENGTH) 500 mg tablet Take 500 mg by mouthevery 6 hours as needed.triamcinolone acetonide 0.1 % cream Apply 1 application to affected areaas needed.CHOLECALCIFEROL, VITAMIN D3, (VITAMIN D3 ORAL) Take by mouth. 1000 unitsdailyCALCIUM CARBONATE/VITAMIN D3 (CALCIUM + D ORAL) Take by mouth.raloxifene (EVISTA) 60 mg ORAL Tab taking every other daytraMADol 50 mg tablet Take by mouth every 6 hours as needed.lisinopril-hydrochlor othiazide 10-12.5 mg per tablet Take 1 tablet bymouth once daily.DOCOSAHEXANOIC ACID/EPA (FISH OIL ORAL) Take 1,000 mg by mouth once daily.BOSWELLIA CANDIDA EXTRACT (BOSWELLIA CANDIDA XT, BULK, Eduora)PAST MEDICAL HISTORYDiagnosis Date- Hepatitis thinks B- History of congestive heart failure- History of heart attack- HTN (hypertension)- Hyperglycemia- OsteoarthritisPAST SURGICAL HISTORYProcedure Laterality Date- PAST SURGICAL HISTORY OF 2004 right knee replacementFAMILY HISTORYProblem Relation Age of Onset- Heart Mother- Heart Father- Breast Cancer Maternal Aunt- Diabetes Maternal Aunt- Diabetes Other cousin- Cancer Paternal Grandmother stomach- Heart Sister- Breast Cancer SisterSocial History Marital status: Spouse name: Years of education: Number of children:Social History Main Topics Smoking status: Never Smoker Smokeless status: Never Used Alcohol use: NoREVIEW OF SYSTEMS: General: No chills, fever, weight loss, night sweats. SHEENT: No change in vision or auditory acuity. Respiratory: Noproductive cough. Cardiac: As noted above. GI: No melena. : Nodysuria. Musculoskeletal: As above . Neurologic: No strokes.Psychiatric: No depression. Endocrine: Positive for diabetes.Hematologic: No anemia.PHYSICAL EXAMINATION: S/he is alert and in no distressVITAL SIGNS: BP 120/84 Pulse 64 Ht 4' 10 (1.47m) Wt 186 lb 4.8 oz(84.5kg) BMI 38.95 kg/(m2).SHEENT: Skin is warm and dry. Pupils are round and reactive. Retinalvessels are grossly unremarkable. No xanthelasmas appreciated. Pharynxis benign. There is no oral cyanosis. Neck: supple. No adenopathy orthyroid enlargement. Chest: Clear to percussion and auscultation.Trachea is midline. Air entry is equal. There is no chest walltenderness. Cardiac: Regular rhythm. S1 and S2 are normal. PMI isnondisplaced. There is a soft systolic ejection murmur. No click isheard. Carotids are brisk without bruits. JVP is less than 10 cm.Abdomen: Soft and nontender. There are no pulsatile masses or bruits.Obesity limits examination. No liver enlargement. Bowel sounds areactive. : Deferred. Extremities: No edema. Pulses are intact andsymmetrical. No clubbing or cyanosis. No femoral bruits. Neurologic:Grossly normal motor and sensory. S/he is alert and oriented x4.Musculoskeletal: Antalgic gait.EKG demonstrates sinus rhythm with occasional ventricular prematures.There is right bundle branch block. No change is seen since tracing of06/03/17, following cardioversion. She presented with atrial flutter andright bundle branch block.Laboratory studies during that admission showed normal renal function.Troponin was undetectable. BNP was normal. TSH is normal.She was started on Xarelto and beta rina. Echocardiogram reportedlyshowed normal left ventricular function. There is no significant valvulardisease other than moderate tricuspid insufficiency. Pharmacologic nuclearstress test showed no evidence of ischemia.Electronically Signed:Ramo Barahona, [facility] 2017 10:52 [facility]: Brandee Alas III, MD [facility] NM MYOCARDIAL SPECT STRESS/R ESTon 06-09-2017 NM MYOCARDIAL SPECT STRESS/REST ORIGINALNM MYOCARDIAL SPECT STRESS/REST CLINICAL STATEMENT: A FIB, ANGINA TECHNIQUE:Lexiscan dose:0.4 mgRadiopharmaceutical (stress): Tc-99m Sestamibi Dose:32.6 mCi Radiopharmaceutical (rest): Tc-99m Sestamibi Dose:11.0 mCi SPECT acquisition and processingReconstruction and reorientation of SPECT images into short axis, vertical and horizontal long axis planes Quantitative LVEF assessment COMPARISON:None provided. REPORT:Gated SPECT images reveal normal LV size and systolic function normal thickening fall myocardial segments LVEF is 71%, LV end-diastolic volume is 99 cc. Quality of study technically adequate study. Myocardial segmental perfusion reveals normal myocardial perfusion. IMPRESSION:Normal myocardial perfusion scan, normal LV size and systolic function LVEF is 71%. Interpreted By: Eugenio Short MDPreliminary Report By: Eugenio Short MDElectronically Signed By: Eugenio Short MD Dictated Date: 06/09/2017 7:32:27 AM Prelim Date: 06/09/2017 7:32:27 AM Sign Date: 06/09/2017 7:34:29 AM Normal [facility] [place] Stress Teston 06-08-2017 Stress Test Normal [facility] [place] .Auto Diffon 06-04-2017 Basophils Auto #/vol (Bld) 0.00 10 3/mcL Normal 0.00-0.19 [facility] ([place] Comment on above: Performed By: #### T ROP, BMP, MG, GFR, CBC, ADIFF, ANEU ####[address] [place], [place] [address] Basophils/100 WBC Auto (Bld) 0.4 % Normal 0.0-2.5 [facility] [place] Comment on above: Performed By: #### T ROP, BMP, MG, GFR, CBC, ADIFF, ANEU ####[address] [place], [place] [address] Eosinophils 0.10 10 3/mcL Normal 0.00-0.40 [facility] [place] Comment on above: Performed By: #### T ROP, BMP, MG, GFR, CBC, ADIFF, ANEU ####[address] [place], [place] [address] Eosinophils/100 leukocytes 1.1 % Normal 0.0-7.0 [facility] ([place] Comment on above: Performed By: #### T ROP, BMP, MG, GFR, CBC, ADIFF, ANEU ####[address] [place], [place] [address] Lymphocytes 3.40 10 3/mcL Normal 0.77-3.85 [facility] [place] Comment on above: Performed By: #### T ROP, BMP, MG, GFR, CBC, ADIFF, ANEU ####[address] [place], [place] [address] Lymphocytes/100 leukocytes 60.0 % High 10.0-50.0 [facility] [place] Comment on above: Performed By: #### T ROP, BMP, MG, GFR, CBC, ADIFF, ANEU ####[address] [place], [place] [address] Monocytes 0.60 10 3/mcL Normal 0.15-1.00 [facility] [place] Comment on above: Performed By: #### T ROP, BMP, MG, GFR, CBC, ADIFF, ANEU ####[address] [place], [place] [address] Monocytes/100 leukocytes 11.0 % Normal 1.7-13.0 [facility] [place] Comment on above: Performed By: #### T ROP, BMP, MG, GFR, CBC, ADIFF, ANEU ####[address] [place], [place] [address] Neutrophils/100 WBC Auto (Bld) 27.5 % Low 37.0-80.0 [facility] [place] Comment on above: Performed By: #### T ROP, BMP, MG, GFR, CBC, ADIFF, ANEU ####[address] [place], [place] [address] .GFRon 06-04-2017 eGFR (non-black) 98 ml/min/1.73sqm Normal A [facility] ([place]) Comment on above: Result Comment: GFR Population mean for , Non- Americans Ages 20-29 = 116 mL/min/1.73 sq.m. Ages 30-39 = 107 mL/min/1.73 sq.m. Ages 40-49 = 99 mL/min/1.73 sq.m. Ages 50-59 = 93 mL/min/1.73 sq.m. Ages 60-69 = 85 mL/min/1.73 sq.m. Ages 70+ = 75 mL/min/1.73 sq.m.Chronic Kidney Disease: Less than 60 mL/min/1.73 square metersEnd Stage Renal Disease: Less than 15 mL/min/1.73 square meters Performed By: #### T ROP, BMP, MG, GFR, CBC, ADIFF, ANEU ####[address] [place], [place] [address] eGFR (non-black) mL/min/{1.73_m2} Normal [facility] ([place] Comment on above: Result Comment: GFR Population mean for , Non- Americans Ages 20-29 = 116 mL/min/1.73 sq.m. Ages 30-39 = 107 mL/min/1.73 sq.m. Ages 40-49 = 99 mL/min/1.73 sq.m. Ages 50-59 = 93 mL/min/1.73 sq.m. Ages 60-69 = 85 mL/min/1.73 sq.m. Ages 70+ = 75 mL/min/1.73 sq.m.Chronic Kidney Disease: Less than 60 mL/min/1.73 square metersEnd Stage Renal Disease: Less than 15 mL/min/1.73 square meters Performed By: #### T ROP, BMP, MG, GFR, CBC, ADIFF, ANEU ####[address] [place], [place] [address] .NEUABSon 06-04-2017 Neutrophils 1.60 10 3/mcL Low 2.85-6.16 [facility] ([place] Comment on above: Performed By: #### T ROP, BMP, MG, GFR, CBC, ADIFF, ANEU ####[address] [place], [place] [address] BMPon 06-04-2017 BUN/Creatinine Ratio 20 ratio Normal 7-27 [facility] [place] Comment on above: Performed By: #### T ROP, BMP, MG, GFR, CBC, ADIFF, ANEU ####[address] [place], [place] [address] Calcium 8.7 mg/dL Normal 8.4-10.2 [facility] ([place] Comment on above: Performed By: #### T ROP, BMP, MG, GFR, CBC, ADIFF, ANEU ####[address] [place], [place] [address] Chloride 103 mmol/L Normal 98-107 [facility] ([place] Comment on above: Performed By: #### T ROP, BMP, MG, GFR, CBC, ADIFF, ANEU ####[address] [place], [place] [address] CO2 30 mmol/L Normal 23-31 [facility] [place] Comment on above: Performed By: #### T ROP, BMP, MG, GFR, CBC, ADIFF, ANEU ####[address] [place] [id number] Creatinine 0.7 mg/dL Normal 0.6-1.2 [facility] [place] Comment on above: Performed By: #### T ROP, BMP, MG, GFR, CBC, ADIFF, ANEU ####[address] [place], [place] [address] Electrolyte Balance 6.0 mEq/L Normal [facility] [place] Comment on above: Performed By: #### T ROP, BMP, MG, GFR, CBC, ADIFF, ANEU ####[address] [place], [place] [address] Glucose mass conc 102 mg/dL Normal 83-110 [facility] [place] Comment on above: Performed By: #### T ROP, BMP, MG, GFR, CBC, ADIFF, ANEU ####[address] [place], [place] [address] Potassium molar conc 4.2 mmol/L Normal 3.5-5.1 [facility] [place] Comment on above: Performed By: #### T ROP, BMP, MG, GFR, CBC, ADIFF, ANEU ####[address] [place], [place] [address] Sodium 139 mmol/L Normal 136-146 [facility] [place] Comment on above: Performed By: #### T ROP, BMP, MG, GFR, CBC, ADIFF, ANEU ####[address] [place], [place] [address] Urea nitrogen 14.3 mg/dL Normal 7.0-18.0 [facility] [place] Comment on above: Performed By: #### T ROP, BMP, MG, GFR, CBC, ADIFF, ANEU ####[address] [place], [place] [address] CBCon 06-04-2017 Erythrocyte distribution width Auto Ratio (RBC) 12.0 % Normal 11.5-14.5 [facility] [place] Comment on above: Performed By: #### T ROP, BMP, MG, GFR, CBC, ADIFF, ANEU ####[address] [place], [place] [address] Erythrocytes (RBC) 4.06 10 6/mcL Low 4.20-5.40 [facility] [place] Comment on above: Performed By: #### T ROP, BMP, MG, GFR, CBC, ADIFF, ANEU ####[address] [place], [place] [address] Hematocrit (HCT) 38.6 % Normal 37.0-47.0 [facility] [place] Comment on above: Performed By: #### T ROP, BMP, MG, GFR, CBC, ADIFF, ANEU ####[address] [place], [place] [address] Hemoglobin mass conc (Bld) 13.2 G/dL Normal 12.0-16.0 [facility] [place] Comment on above: Performed By: #### T ROP, BMP, MG, GFR, CBC, ADIFF, ANEU ####[address] [place] [id number] MCH 32.6 pg High 27.0-31.2 [facility] [place] Comment on above: Performed By: #### T ROP, BMP, MG, GFR, CBC, ADIFF, ANEU ####[address] [place] [address] MCHC mass conc (RBC) 34.2 G/dL Normal 33.0-37.0 [facility] [place] Comment on above: Performed By: #### T ROP, BMP, MG, GFR, CBC, ADIFF, ANEU ####[address] [place] [id number] MCV 95.1 fL High 80.0-94.0 [facility] [place] Comment on above: Performed By: #### T ROP, BMP, MG, GFR, CBC, ADIFF, ANEU ####[address] [place] [id number] Platelet mean volume (PMV) 8.6 fL Normal 7.4-10.4 [facility] [place] Comment on above: Performed By: #### T ROP, BMP, MG, GFR, CBC, ADIFF, ANEU ####[address] [place] [id number] Platelets 133 10 3/mcL Normal 130-400 [facility] [place] Comment on above: Performed By: #### T ROP, BMP, MG, GFR, CBC, ADIFF, ANEU ####[address] [place], [place] [address] WBC (Leukocytes) 5.70 10 3/mcL Normal 4.60-10.80 [facility] [place] Comment on above: Performed By: #### T ROP, BMP, MG, GFR, CBC, ADIFF, ANEU ####[address] [place], [place] [address] Depart Summaryon 06-04-2017 Depart Summary Normal [facility]) Discharge Note-Nursingon Discharge Note-Nursing Normal [facility]) Echocardiogram, Adult (AOH)o n 06-04-2017 Echocardiogram, Adult (AO) Normal [facility]) MGon 06-04-2017 Magnesium 2.3 mg/dL Normal 1.7-2.5 [facility]) Comment on above: Performed By: #### T ROP, BMP, MG, GFR, CBC, ADIFF, ANEU ####[address] [place], [place] [address] [place] Discharge Summaryon 06-04-2017 [place] Discharge Summary Normal [facility]) [place] History and Physica shailesh 06-04-2017 [place] History and Physical Normal [facility]) [place] Inpatient Patient S ummaryon 06-04-2017 [place] Inpatient Patient Summary Normal [facility]) TROPon 06-04-2017 Troponin I.cardiac mass conc ng/mL Normal 0.00-0.30 [facility]) Comment on above: Result Comment: Belo w measuring range>=0.30 Consistent with cardiac damage, increased clinical risk and possibility of myocardial infarction. Serial measurements, clinical history, appropriate symptoms and/or ECG changes may help assess possibility of PR.*Other non-acute coronary syndrome conditions such as CHF, myocarditis, pulmonary emboli, sepsis and cardiac surgery could result in myocardial damage and increased troponin levels. Performed By: #### T ROP, BMP, MG, GFR, CBC, ADIFF, ANEU ####[address] [place], [place] [address] TSHon 06-04-2017 Thyroid stimulating hormone (TSH) 1.40 mcIU/mL Normal 0.27-4.20 [facility] [place] Comment on above: Performed By: #### T SH ####[address] [place], [place] [address] .Auto Diffon 06-03-2017 Basophils Auto #/vol (Bld) 0.00 10 3/mcL Normal 0.00-0.19 [facility] ([place]) Comment on above: Performed By: #### C BC, ADIFF, ANEU, TROP, PBNP, CMP, GFR, PRO, APTT ####[address] [place], [place] [address] Basophils/100 WBC Auto (Bld) 0.6 % Normal 0.0-2.5 [facility] ([place] Comment on above: Performed By: #### C BC, ADIFF, ANEU, TROP, PBNP, CMP, GFR, PRO, APTT ####[address] [place], [place] [address] Eosinophils 0.00 10 3/mcL Normal 0.00-0.40 [facility] [place] Comment on above: Performed By: #### C BC, ADIFF, ANEU, TROP, PBNP, CMP, GFR, PRO, APTT ####[address] [place], [place] [address] Eosinophils/100 leukocytes 0.7 % Normal 0.0-7.0 [facility] [place] Comment on above: Performed By: #### C BC, ADIFF, ANEU, TROP, PBNP, CMP, GFR, PRO, APTT ####[address] [place], [place] [address] Lymphocytes 3.20 10 3/mcL Normal 0.77-3.85 [facility] [place] Comment on above: Performed By: #### C BC, ADIFF, ANEU, TROP, PBNP, CMP, GFR, PRO, APTT ####[address] [place], [place] [address] Lymphocytes/100 leukocytes 49.9 % Normal 10.0-50.0 [facility] [place] Comment on above: Performed By: #### C BC, ADIFF, ANEU, TROP, PBNP, CMP, GFR, PRO, APTT ####[address] [place], [place] [address] Monocytes 0.70 10 3/mcL Normal 0.15-1.00 [facility] [place] Comment on above: Performed By: #### C BC, ADIFF, ANEU, TROP, PBNP, CMP, GFR, PRO, APTT ####[address] [place], [place] [address] Monocytes/100 leukocytes 11.7 % Normal 1.7-13.0 [facility] [place] Comment on above: Performed By: #### C BC, ADIFF, ANEU, TROP, PBNP, CMP, GFR, PRO, APTT ####[address] [place], [place] [address] Neutrophils/100 WBC Auto (Bld) 37.1 % Normal 37.0-80.0 [facility] [place] Comment on above: Performed By: #### C BC, ADIFF, ANEU, TROP, PBNP, CMP, GFR, PRO, APTT ####[address] [place], [place] [address] .GFRon 06-03-2017 eGFR (non-black) mL/min/{1.73_m2} Normal [facility] ([place] Comment on above: Result Comment: GFR Population mean for , Non- Americans Ages 20-29 = 116 mL/min/1.73 sq.m. Ages 30-39 = 107 mL/min/1.73 sq.m. Ages 40-49 = 99 mL/min/1.73 sq.m. Ages 50-59 = 93 mL/min/1.73 sq.m. Ages 60-69 = 85 mL/min/1.73 sq.m. Ages 70+ = 75 mL/min/1.73 sq.m.Chronic Kidney Disease: Less than 60 mL/min/1.73 square metersEnd Stage Renal Disease: Less than 15 mL/min/1.73 square meters Performed By: #### C BC, ADIFF, ANEU, TROP, PBNP, CMP, GFR, PRO, APTT ####[address] [place], [place] [address] eGFR (non-black) 104 ml/min/1.73sqm Normal [facility] [place] Comment on above: Result Comment: GFR Population mean for , Non- Americans Ages 20-29 = 116 mL/min/1.73 sq.m. Ages 30-39 = 107 mL/min/1.73 sq.m. Ages 40-49 = 99 mL/min/1.73 sq.m. Ages 50-59 = 93 mL/min/1.73 sq.m. Ages 60-69 = 85 mL/min/1.73 sq.m. Ages 70+ = 75 mL/min/1.73 sq.m.Chronic Kidney Disease: Less than 60 mL/min/1.73 square metersEnd Stage Renal Disease: Less than 15 mL/min/1.73 square meters Performed By: #### C BC, ADIFF, ANEU, TROP, PBNP, CMP, GFR, PRO, APTT ####[address] [place], [place] [address] .NEUABSon 06-03-2017 Neutrophils 2.40 10 3/mcL Low 2.85-6.16 [facility] [place] Comment on above: Performed By: #### C BC, ADIFF, ANEU, TROP, PBNP, CMP, GFR, PRO, APTT ####[address] [place], [place] [address] APTTon 06-03-2017 aPTT 28.5 s Normal 26.9-35.2 [facility] ([place] Comment on above: Result Comment: For Heparin anticoagulation therapy, the recommendedtherapeutic range is: 40-68.8 seconds (1.5 - 2.5 the normalplasma mean). Patients on heparin therapy may have an extreme result. Performed By: #### C BC, ADIFF, ANEU, TROP, PBNP, CMP, GFR, PRO, APTT ####[address] [place], [place] [address] aPTT Unknown Normal [facility] ([place] Comment on above: Performed By: #### C BC, ADIFF, ANEU, TROP, PBNP, CMP, GFR, PRO, APTT ####[address] [place], [place] [address] CBCon 06-03-2017 Erythrocyte distribution width Auto Ratio (RBC) 12.2 % Normal 11.5-14.5 [facility] ([place] Comment on above: Performed By: #### C BC, ADIFF, ANEU, TROP, PBNP, CMP, GFR, PRO, APTT ####[address] [place], [place] [address] Erythrocytes (RBC) 4.57 10 6/mcL Normal 4.20-5.40 [facility] ([place] Comment on above: Performed By: #### C BC, ADIFF, ANEU, TROP, PBNP, CMP, GFR, PRO, APTT ####[address] [place], [place] [address] Hematocrit (HCT) 43.4 % Normal 37.0-47.0 [facility] ([place] Comment on above: Performed By: #### C BC, ADIFF, ANEU, TROP, PBNP, CMP, GFR, PRO, APTT ####[address] [place], [place] [address] Hemoglobin mass conc (Bld) 14.8 G/dL Normal 12.0-16.0 [facility] ([place] Comment on above: Performed By: #### C BC, ADIFF, ANEU, TROP, PBNP, CMP, GFR, PRO, APTT ####[address] [place], [place] [address] MCH 32.4 pg High 27.0-31.2 [facility] ([place] Comment on above: Performed By: #### C BC, ADIFF, ANEU, TROP, PBNP, CMP, GFR, PRO, APTT ####[address] [place], [place] [address] MCHC mass conc (RBC) 34.2 G/dL Normal 33.0-37.0 [facility] [place] Comment on above: Performed By: #### C BC, ADIFF, ANEU, TROP, PBNP, CMP, GFR, PRO, APTT ####[address] [place], [place] [address] MCV 95.0 fL High 80.0-94.0 [facility] [place] Comment on above: Performed By: #### C BC, ADIFF, ANEU, TROP, PBNP, CMP, GFR, PRO, APTT ####[address] [place], [place] [address] Platelet mean volume (PMV) 8.9 fL Normal 7.4-10.4 [facility] [place] Comment on above: Performed By: #### C BC, ADIFF, ANEU, TROP, PBNP, CMP, GFR, PRO, APTT ####[address] [place], [place] [address] Platelets 138 10 3/mcL Normal 130-400 [facility] [place] Comment on above: Performed By: #### C BC, ADIFF, ANEU, TROP, PBNP, CMP, GFR, PRO, APTT ####[address] [place], [place] [address] WBC (Leukocytes) 6.40 10 3/mcL Normal 4.60-10.80 [facility] [place] Comment on above: Performed By: #### C BC, ADIFF, ANEU, TROP, PBNP, CMP, GFR, PRO, APTT ####[address] [place], [place] [address] CMPon 06-03-2017 Alanine aminotransferase (ALT) 10 U/L Normal 10-35 [facility] [place] Comment on above: Performed By: #### C BC, ADIFF, ANEU, TROP, PBNP, CMP, GFR, PRO, APTT ####[address] [place], [place] [address] Albumin 4.6 G/dL Normal 3.4-4.8 [facility] [place] Comment on above: Performed By: #### C BC, ADIFF, ANEU, TROP, PBNP, CMP, GFR, PRO, APTT ####[address] [place], [place] [address] Albumin/Globulin Ratio 1.6 {ratio} Normal 1.1-2.5 [facility] ([place] Comment on above: Performed By: #### C BC, ADIFF, ANEU, TROP, PBNP, CMP, GFR, PRO, APTT ####[place] [address] [place], [place] [address] Alk Phos 62 IU/L Normal 40-135 [facility] ([place] Comment on above: Performed By: #### C BC, ADIFF, ANEU, TROP, PBNP, CMP, GFR, PRO, APTT ####[place] [address] [place] [id number] Aspartate aminotransferase (AST) 25 U/L Normal 10-40 [facility] [place] Comment on above: Performed By: #### C BC, ADIFF, ANEU, TROP, PBNP, CMP, GFR, PRO, APTT ####[place] [address] [place] [id number] Bili Total 0.7 mg/dL Normal 0.2-1.0 [facility] ([place] Comment on above: Performed By: #### C BC, ADIFF, ANEU, TROP, PBNP, CMP, GFR, PRO, APTT ####[place] [address] [place] [address] BUN/Creatinine Ratio 20 ratio Normal 7-27 [facility] [place] Comment on above: Performed By: #### C BC, ADIFF, ANEU, TROP, PBNP, CMP, GFR, PRO, APTT ####[place] [address] [place], [place] [address] Calcium 9.3 mg/dL Normal 8.4-10.2 [facility] ([place] Comment on above: Performed By: #### C BC, ADIFF, ANEU, TROP, PBNP, CMP, GFR, PRO, APTT ####[facility] [place], [place] [address] Chloride 98 mmol/L Normal 98-107 [facility] ([place] Comment on above: Performed By: #### C BC, ADIFF, ANEU, TROP, PBNP, CMP, GFR, PRO, APTT ####[place] [address] [place], [place] [address] CO2 30 mmol/L Normal 23-31 [facility] ([place] Comment on above: Performed By: #### C BC, ADIFF, ANEU, TROP, PBNP, CMP, GFR, PRO, APTT ####[place] [address] [place], [place] [address] Creatinine 0.7 mg/dL Normal 0.6-1.2 [facility] ([place] Comment on above: Performed By: #### C BC, ADIFF, ANEU, TROP, PBNP, CMP, GFR, PRO, APTT ####[address] [place], [place] [address] Electrolyte Balance 10.0 mEq/L Normal [facility] [place] Comment on above: Performed By: #### C BC, ADIFF, ANEU, TROP, PBNP, CMP, GFR, PRO, APTT ####[address] [place] [address] Globulin 2.8 G/dL Normal [facility] ([place] Comment on above: Performed By: #### C BC, ADIFF, ANEU, TROP, PBNP, CMP, GFR, PRO, APTT ####[place] [address] [place], [place] [address] Glucose mass conc 102 mg/dL Normal 83-110 [facility] ([place] Comment on above: Performed By: #### C BC, ADIFF, ANEU, TROP, PBNP, CMP, GFR, PRO, APTT ####[place] [address] [place], [place] [address] Potassium molar conc 4.0 mmol/L Normal 3.5-5.1 [facility] [place] Comment on above: Performed By: #### C BC, ADIFF, ANEU, TROP, PBNP, CMP, GFR, PRO, APTT ####[address] [place], [place] [address] Protein 7.4 G/dL Normal 6.0-8.3 [facility] ([place] Comment on above: Performed By: #### C BC, ADIFF, ANEU, TROP, PBNP, CMP, GFR, PRO, APTT ####[address] [place], [place] [address] Sodium 138 mmol/L Normal 136-146 [facility] ([place] Comment on above: Performed By: #### C BC, ADIFF, ANEU, TROP, PBNP, CMP, GFR, PRO, APTT ####[address] [place], [place] [address] Urea nitrogen 14.1 mg/dL Normal 7.0-18.0 [facility] ([place] Comment on above: Performed By: #### C BC, ADIFF, ANEU, TROP, PBNP, CMP, GFR, PRO, APTT ####[address] [place], [place] [address] [place] [facility] Note on 06-03-2017 [place] [facility] Note Normal [facility] [place] PBNPon 06-03-2017 BNP 51.1 pg/mL Normal 5.0-300.0 [facility] [place] Comment on above: Result Comment: In t he presence of acute dyspnea, CHF likely if:Age <50 years: >450 pg/mLAge 50-75 years: >900 pg/mLAge >75 years: >1800 pg/mL Performed By: #### C BC, ADIFF, ANEU, TROP, PBNP, CMP, GFR, PRO, APTT ####[address] [place], [place] [address] PROon 06-03-2017 INR Coag RelTime (PPP) 1.2 {INR} Normal 0.9-1.2 [facility] [facility] [place] Comment on above: Result Comment: Ameya dard Dose 2.0 - 3.0High Dose 2.5 - 3.5The recommended therapeutic range for oral anticoagulanttherapy is:LOW RISK: Prophylaxis of venous thrombosis INR: 2.0 - 3.0 Treatment of pulmonary embolism 2.0 - 3.0 Prevention of systemic embolism 2.0 - 3.0HIGH RISK: Mechanical prosthetic valves 2.5 - 3.5 Performed By: #### C BC, ADIFF, ANEU, TROP, PBNP, CMP, GFR, PRO, APTT ####[address], [place] [address] Prothrombin time (PT) Coag time (PPP) 12.3 s Normal 9.8-13.5 [facility] [place] Comment on above: Performed By: #### C BC, ADIFF, ANEU, TROP, PBNP, CMP, GFR, PRO, APTT ####[id number], [place] [address] Patient Summary Documentson 06-03-2017 Patient Summary Documents Normal [facility] [place] TROPon 06-03-2017 Troponin I.cardiac mass conc ng/mL Normal 0.00-0.30 [facility] [place] Comment on above: Result Comment: Belo w measuring range>=0.30 Consistent with cardiac damage, increased clinical risk and possibility of myocardial infarction. Serial measurements, clinical history, appropriate symptoms and/or ECG changes may help assess possibility of PR.*Other non-acute coronary syndrome conditions such as CHF, myocarditis, pulmonary emboli, sepsis and cardiac surgery could result in myocardial damage and increased troponin levels. Performed By: #### C BC, ADIFF, ANEU, TROP, PBNP, CMP, GFR, PRO, APTT ####[id number], [place] [address] XR CHEST 1 VIEWon 06-03-2017 XR CHEST 1 VIEW ORIGINALXR CHEST 1 V IEW PORTABLE AP TIME: 1:05 PM CLINICAL STATEMENT: chest pain COMPARISON: 07/01/2015 FINDINGS: The cardiomediastinal contours are unchanged. The aorta is atherosclerotic. I basilar atelectatic changes noted. No large pleural effusion, vascular congestion, or pneumothorax seen. IMPRESSION: Hypoventilatory changes. Interpreted By: Melisa NowakPreliminary Report By: Melisa NowakElectronically Signed By: Melisa Nowak Dictated Date: 06/03/2017 1:11:08 PM Prelim Date: 06/03/2017 1:11:08 PM Sign Date: 06/03/2017 1:12:04 PM Normal [facility] [place] XR WRIST MINIMUM 3 VIEWS RIG HTon 01-17-2017 XR WRIST MINIMUM 3 VIEWS RIGHT ORIGINALXR WRIST MINIMUM 3 VIEWS RIGHT CLINICAL STATEMENT: Patient fell off of her porch earlier today, wrist pain and swelling COMPARISON: None FINDINGS: Cortical defect and fracture line is seen at the ulnar aspect of the distal radius with extension into the radiocarpal articulation. No significant displacement of the fracture fragment is seen but there is slight impaction. No additional fractures are identified. The joint spaces are preserved. There is no radiopaque foreign body. IMPRESSION: Slightly impacted fracture through the distal radius at its ulnar aspect with extension into the radiocarpal articulation. I have personally reviewed the images of this examination and agree with the resident's findings and interpretation Interpreted By: Phill Templereliminary Report By: Shaheed Mahan DOElectronically Signed By: Phill Temple MD Dictated Date: 01/16/2017 9:14:46 PM Prelim Date: 01/16/2017 9:17:57 PM Sign Date: 01/16/2017 10:46:23 PM Normal [facility] [place] [facility] Note on 01-16-2017 [facility] Note Normal [facility] [place] Patient Summary Documentson 01-16-2017 Patient Summary Documents Normal [facility]) Vital Signs Date Time Vital Sign Value Performing Clinician Facility 01-16-2025 11:170400 Body height 149.[address] Rufino Erickson MD Work Phone: 2(769)865-592190 [place] [address] 01-16-2025 11:17-040 Body mass index (BMI) [Ratio] 32.3 kg/m2 Dr. Rufino Erickson MD Work Phone: [facility] 01-16-2025 11:17-040 Body weight 72.[address] Rufino Erickson MD Work Phone: [facility] 01-16-2025 11:17-0400 Diastolic blood pressure 60 mm[Hg] Dr. Rufino Erickson MD Work Phone: 1(024)586-379590 [place] [address] 01-16-2025 11:17-040 Heart rate 64 /min Dr. Rufino Erickson MD Work Phone: [facility] 01-16-2025 11:17-0400 Systolic blood pressure 138 mm[Hg] Dr. Rufino Erickson MD Work Phone: [facility] 01-11-2025 11:17-0400 Body temperature 98.2 [degF] Dr. Rufino Erickson MD Work Phone: [facility] 01-11-2025 11:17-0400 Diastolic blood pressure 65 mm[Hg] Dr. Rufino Erickson MD Work Phone: [facility] 01-11-2025 11:17-0400 Heart rate 72 /min Dr. Rufino Erickson MD Work Phone: [facility] 01-11-2025 11:17-0400 Respiratory rate 18 /min Dr. Rufino Erickson MD Work Phone: [facility] 01-11-2025 11:17-0400 SaO2% (BldA) [Mass fraction] 91 % Dr. Rufino Erickson MD Work Phone: [facility] 01-11-2025 11:17-0400 Systolic blood pressure 99 mm[Hg] Dr. Rufino Erickson MD Work Phone: [facility] 01-02-2025 10:00-0400 Diastolic blood pressure 68 mm[Hg] Steve Mane PT Work Phone: [facility] 01-02-2025 10:00-0400 Heart rate 78 /min Steve Mane PT Work Phone: [facility] 01-02-2025 10:00-0400 SaO2% (BldA) [Mass fraction] 92 % Steve Mane PT Work Phone: [facility] 01-02-2025 10:00-0400 Systolic blood pressure 108 mm[Hg] Steve Mane PT Work Phone: [facility] 12-29-2024 09:40-0400 Diastolic blood pressure 61 mm[Hg] Lulu Staton APRN.[employer] MECH[employer]IC Work Phone: [facility] 12-29-2024 09:40-0400 Heart rate 89 /min Lulu Staton APRN.[employer] MECH[employer]IC Work Phone: [facility] 12-29-2024 09:40-0400 Systolic blood pressure 101 mm[Hg] Lulu Staton APRN.CNP Work Phone: [facility] 12-11-2024 15:06-0400 Diastolic blood pressure 60 mm[Hg] Rufino Erickson MD Work Phone: [facility] 12-11-2024 15:06-0400 Systolic blood pressure 112 mm[Hg] Rufino Erickson MD Work Phone: [facility] 12-11-2024 13:57-0400 Body mass index (BMI) [Ratio] 31.94 kg/m2 Rufino Erickson MD Work Phone: [facility] 12-11-2024 13:57-0400 Body weight 69.4 kg Rufino Erickson MD Work Phone: [facility] 12-11-2024 13:57-0400 Heart rate 68 /min Rufino Erickson MD Work Phone: [facility] 12-11-2024 13:57-0400 Respiratory rate 16 /min Rufino Erickson MD Work Phone: [facility] 12-07-2024 07:46-0400 Body mass index (BMI) [Ratio] 30.9 kg/m2 Dr. Rufino Erickson MD Work Phone: [facility] 12-07-2024 07:46-0400 Body weight 69.[address] Rufino Erickson MD Work Phone: [facility] 12-07-2024 07:46-0400 Diastolic blood pressure 67 mm[Hg] Dr. Rufino Erickson MD Work Phone: [facility] 12-07-2024 07:46-0400 Heart rate 80 /min Dr. Rufino Erickson MD Work Phone: [facility] 12-07-2024 07:46-0400 Respiratory rate 18 /min Dr. Rufino Erickson MD Work Phone: [facility] 12-07-2024 07:46-0400 SaO2% (BldA) [Mass fraction] 94 % Dr. Rufino Erickson MD Work Phone: 3(021)547-140658 [place] [address] 12-07-2024 07:46-0400 Systolic blood pressure 103 mm[Hg] Dr. Rufino Erickson MD Work Phone: 3(415)076-923758 [place] [address] 11-20-2024 11:06-0400 Body height 149.[address] Rufino Erickson MD Work Phone: 2(646)807-611058 [place] [address] 11-20-2024 11:06-0400 Body mass index (BMI) [Ratio] 31.1 kg/m2 Dr. Rufino Erickson MD Work Phone: 8(754)873-946858 [place] [address] 11-20-2024 11:06-0400 Body temperature 98 [degF] Dr. Rufino Erickson MD Work Phone: 3(202)021-858458 [place] [address] 11-20-2024 11:06-0400 Body weight 70.[address] Rufino Erickson MD Work Phone: 0(199)699-821158 [place] [address] 11-20-2024 11:06-0400 Diastolic blood pressure 74 mm[Hg] Dr. Rufino Erickson MD Work Phone: 9(293)431-280958 [place] [address] 11-20-2024 11:06-0400 Heart rate 87 /min Dr. Rufino Erickson MD Work Phone: 2(149)498-710258 [place] [address] 11-20-2024 11:06-0400 Respiratory rate 16 /min Dr. Rufino Erickson MD Work Phone: 1(885)245-981458 [place] [address] 11-20-2024 11:06-0400 SaO2% (BldA) [Mass fraction] 93 % Dr. Rufino Erickson MD Work Phone: 6(480)165-122958 [place] [address] 11-20-2024 11:06-0400 Systolic blood pressure 124 mm[Hg] Dr. Rufino Erickson MD Work Phone: 3(419)809-215958 [place] [address] 10-26-2024 09:33-0400 Body height 147.[address] Rufino Erickson MD Work Phone: 1(181)427-361658 [place] [address] 10-26-2024 09:33-0400 Body mass index (BMI) [Ratio] 33 kg/m2 Dr. Rufino Erickson MD Work Phone: 8(237)650-637558 [place] [address] 10-26-2024 09:33-0400 Body weight 71.[address] Rufino Erickson MD Work Phone: 4(904)226-421058 [place] [address] 10-26-2024 09:33-0400 Diastolic blood pressure 56 mm[Hg] Dr. Rufino Erickson MD Work Phone: 1(741)069-671358 [place] [address] 10-26-2024 09:33-0400 Heart rate 66 /min Dr. Rufino Erickson MD Work Phone: 7(043)413-380758 [place] [address] 10-26-2024 09:33-0400 Respiratory rate 16 /min Dr. Rufino Erickson MD Work Phone: 1(578)268-844258 [place] [address] 10-26-2024 09:33-0400 Systolic blood pressure 86 mm[Hg] Dr. Rufino Erickson MD Work Phone: 0(055)985-647058 [place] [address] 10-23-2024 21:50-0400 Body temperature 98.4 [degF] Dr. Rufino Erickson MD Work Phone: 3(360)087-397758 [place] [address] 10-23-2024 21:50-0400 Diastolic blood pressure 59 mm[Hg] Dr. Rufino Erickson MD Work Phone: 0(499)680-851758 [place] [address] 10-23-2024 21:50-0400 Heart rate 62 /min Dr. Rufino Erickson MD Work Phone: 2(105)479-040658 [place] [address] 10-23-2024 21:50-0400 Respiratory rate 18 /min Dr. Rufino Erickson MD Work Phone: 8(122)570-472058 [place] [address] 10-23-2024 21:50-0400 SaO2% (BldA) [Mass fraction] 93 % Dr. Rufino Erickson MD Work Phone: 7(838)494-455358 [place] [address] 10-23-2024 21:50-0400 Systolic blood pressure 128 mm[Hg] Dr. Rufino Erickson MD Work Phone: 3(804)330-971058 [place] [address] 10-23-2024 17:52-0400 Body height 147.[address] Rufino Erickson MD Work Phone: [facility] 10-23-2024 17:52-0400 Body mass index (BMI) [Ratio] 33.5 kg/m2 Dr. Rufino Erickson MD Work Phone: [facility] 10-23-2024 17:52-0400 Body weight 72.[address] Rufino Erickson MD Work Phone: [facility] 10-19-2024 10:37-0400 Body mass index (BMI) [Ratio] 30.84 kg/m2 Lulu Staton APRN.[employer] MECH[employer]IC Work Phone: [facility] 10-19-2024 10:37-0400 Body weight 67 kg Lulu Staton APRN.[employer] MECH[employer]IC Work Phone: [facility] 10-19-2024 10:37-0400 Diastolic blood pressure 68 mm[Hg] Lulu Staton APRN.[employer] MECH[employer]IC Work Phone: [facility] 10-19-2024 10:37-0400 Heart rate 61 /min Lulu Staton APRN.[employer] MECHANIC Work Phone: [facility] 10-19-2024 10:37-0400 Systolic blood pressure 113 mm[Hg] Lulu Staton STOCK FEEDER.[employer] MECHANIC Work Phone: [facility] 10-07-2024 11:54-0400 Body mass index (BMI) [Ratio] 33.23 kg/m2 Cruz James STOCK FEEDER.[employer] MECHANIC Work Phone: [facility] 10-07-2024 11:54-0400 Body temperature 98.8 [degF] Cruz James STOCK FEEDER.[employer] MECHANIC Work Phone: [facility] 10-07-2024 11:54-0400 Body weight 72.2 kg Cruz James STOCK FEEDER.[employer] MECHANIC Work Phone: [facility] 10-07-2024 11:54-0400 Diastolic blood pressure 84 mm[Hg] Cruz James STOCK FEEDER.[employer] MECHANIC Work Phone: [facility] 10-07-2024 11:54-0400 Heart rate 62 /min Cruz Schwanger STOCK FEEDER.[employer] MECHANIC Work Phone: [facility] 10-07-2024 11:54-0400 Respiratory rate 20 /min Cruz Schwsydnee STOCK FEEDER.[employer] MECHANIC Work Phone: [facility] 10-07-2024 11:54-0400 SaO2% (BldA) [Mass fraction] 97 % Cruz Schwsydnee STOCK FEEDER.CY[employer]ER [employer] MECHANIC Work Phone: [facility] 10-07-2024 11:54-0400 Systolic blood pressure 138 mm[Hg] Cruz Schwanger STOCK FEEDER.[employer]ER [employer] MECHANIC Work Phone: [facility] 09-27-2024 13:05-0400 Body mass index (BMI) [Ratio] 31.53 kg/m2 Rufino Erickson MD Work Phone: [facility] 09-27-2024 13:05-0400 Body weight 68.49 kg Rufino Erickson MD Work Phone: [facility] 09-27-2024 13:05-0400 Diastolic blood pressure 60 mm[Hg] Rufino Erickson MD Work Phone: [facility] 09-27-2024 13:05-0400 Heart rate 59 /min Rufino Erickson MD Work Phone: [facility] 09-27-2024 13:05-0400 Respiratory rate 18 /min Rufino Erickson MD Work Phone: [facility] 09-27-2024 13:05-0400 SaO2% (BldA) [Mass fraction] 94 % Rufino Erickson MD Work Phone: [facility] 09-27-2024 13:05-0400 Systolic blood pressure 104 mm[Hg] Rufino Erickson MD Work Phone: [facility] 08-24-2024 06:45-0400 Body mass index (BMI) [Ratio] 33.8 kg/m2 Dr. Rufino Erickson MD Work Phone: [facility] 08-24-2024 06:45-0400 Body weight 73.[address] Rufino Erickson MD Work Phone: [facility] 08-24-2024 06:45-0400 Diastolic blood pressure 74 mm[Hg] Dr. Rufino Erickson MD Work Phone: [facility] 08-24-2024 06:45-0400 Heart rate 61 /min Dr. Rufino Erickson MD Work Phone: [facility] 08-24-2024 06:45-0400 Respiratory rate 18 /min Dr. Rufino Erickson MD Work Phone: [facility] 08-24-2024 06:45-0400 SaO2% (BldA) [Mass fraction] 94 % Dr. Rufino Erickson MD Work Phone: [facility] 08-24-2024 06:45-0400 Systolic blood pressure 123 mm[Hg] Dr. Rufino Erickson MD Work Phone: [facility] 07-12-2024 14:41-0400 Body temperature 98.6 [degF] Harrison Moomaw STOCK FEEDER.[employer] MECHANIC Work Phone: [facility] 07-12-2024 14:41-0400 Diastolic blood pressure 78 mm[Hg] Harrison Moomaw STOCK FEEDER.[employer] MECHANIC Work Phone: [facility] 07-12-2024 14:41-0400 Heart rate 72 /min Harrison Moomaw STOCK FEEDER.[employer] MECHANIC Work Phone: [facility] 07-12-2024 14:41-0400 SaO2% (BldA) [Mass fraction] 94 % Harrison Moomaw STOCK FEEDER.CY[employer]ER [employer] MECHANIC Work Phone: [facility] 07-12-2024 14:41-0400 Systolic blood pressure 124 mm[Hg] Harrison Moomaw STOCK FEEDER.[employer]ER [employer] MECHANIC Work Phone: [facility] 07-05-2024 11:23-0400 Body mass index (BMI) [Ratio] 35.07 kg/m2 Rufino Erickson MD Work Phone: [facility] 07-05-2024 11:23-0400 Body weight 76.2 kg Rufino Erickson MD Work Phone: [facility] 07-05-2024 11:23-0400 Diastolic blood pressure 60 mm[Hg] Rufino Erickson MD Work Phone: [facility] 07-05-2024 11:23-0400 Heart rate 55 /min Rufino Erickson MD Work Phone: [facility] 07-05-2024 11:23-0400 Respiratory rate 16 /min Rufino Erickson MD Work Phone: [facility] 07-05-2024 11:23-0400 SaO2% (BldA) [Mass fraction] 92 % Rufino Erickson MD Work Phone: [facility] 07-05-2024 11:23-0400 Systolic blood pressure 102 mm[Hg] Rufino Erickson MD Work Phone: [facility] 05-30-2024 11:20-0500 Diastolic blood pressure 60 mm[Hg] Rufino Erickson MD Work Phone: [facility] 05-30-2024 11:20-0500 Heart rate 64 /min Rufino Erickson MD Work Phone: [facility] 05-30-2024 11:20-0500 Respiratory rate 20 /min Rufino Erickson MD Work Phone: [facility] 05-30-2024 11:20-0500 Systolic blood pressure 92 mm[Hg] Rufino Erickson MD Work Phone: [facility] 04-17-2024 09:02-0500 Diastolic blood pressure 72 mm[Hg] Lulu Staton APRN.[employer] MECHANIC Work Phone: [facility] 04-17-2024 09:02-0500 Heart rate 56 /min Lulu Staton APRN.[employer] MECHANIC Work Phone: [facility] 04-17-2024 09:02-0500 Respiratory rate 18 /min Lulu Staton APRN.[employer] MECHANIC Work Phone: [facility] 04-17-2024 09:02-0500 SaO2% (BldA) [Mass fraction] 95 % Lulu Staton STOCK FEEDER.CYLINDER [employer] MECHANIC Work Phone: [facility] 04-17-2024 09:02-0500 Systolic blood pressure 146 mm[Hg] Lulu Staton STOCK FEEDER.CYLINDER [employer] MECHANIC Work Phone: [facility] 04-07-2024 16:56-0500 Heart rate 80 /min Ulices Moya APRN.[employer] MECHANIC Work Phone: [facility] 04-07-2024 16:56-0500 SaO2% (BldA) [Mass fraction] 90 % Ulices Moya APRN.[employer]ER [employer] MECHANIC Work Phone: [facility] Comment on above: post albuterol treatment 04-07-2024 15:49-0500 Body mass index (BMI) [Ratio] 35.44 kg/m2 Ulices Moya APRN.[employer] MECHANIC Work Phone: [facility] 04-07-2024 15:49-0500 Body temperature 98.01 [degF] Ulices Moya APRN.[employer]ER [employer] MECHANIC Work Phone: [facility] 04-07-2024 15:49-0500 Body weight 77 kg Ulices Moya APRN.[employer]ER [employer] MECHANIC Work Phone: [facility] 04-07-2024 15:49-0500 Diastolic blood pressure 88 mm[Hg] Ulices Moya APRN.[employer]ER [employer] MECHANIC Work Phone: [facility] 04-07-2024 15:49-0500 Respiratory rate 26 /min Ulices Moya APRN.[employer]ER [employer] MECHANIC Work Phone: [facility] 04-07-2024 15:49-0500 Systolic blood pressure 121 mm[Hg] Ulices Moya APRN.[employer] MECHANIC Work Phone: [facility] 01-11-2024 09:43-0400 Body mass index (BMI) [Ratio] 35.91 kg/m2 Rufino Erickson MD Work Phone: [facility] 01-11-2024 09:43-0400 Body temperature 98.6 [degF] Rufino Erickson MD Work Phone: [facility] 01-11-2024 09:43-0400 Body weight 78.02 kg Rufino Erickson MD Work Phone: [facility] 01-11-2024 09:43-0400 Diastolic blood pressure 78 mm[Hg] Rufino Erickson MD Work Phone: [facility] 01-11-2024 09:43-0400 Heart rate 111 /min Rufino Erickson MD Work Phone: [facility] 01-11-2024 09:43-0400 Respiratory rate 18 /min Rufino Erickson MD Work Phone: [facility] 01-11-2024 09:43-0400 SaO2% (BldA) [Mass fraction] 96 % Rufino Erickson MD Work Phone: [facility] 01-11-2024 09:43-0400 Systolic blood pressure 122 mm[Hg] Rufino Erickson MD Work Phone: [facility] 12-03-2023 15:28-0400 Body mass index (BMI) [Ratio] 36.32 kg/m2 Ulices Moya APRN.[employer] MECHANIC Work Phone: [facility] 12-03-2023 15:28-0400 Body temperature 98.6 [degF] Ulices Moya STOCK FEEDER.CY[employer]ER [employer] MECHANIC Work Phone: [facility] 12-03-2023 15:28-0400 Body weight 78.9 kg Ulices Moya STOCK FEEDER.CY[employer]ER [employer] MECHANIC Work Phone: [facility] 12-03-2023 15:28-0400 Diastolic blood pressure 74 mm[Hg] Ulices Moya STOCK FEEDER.CYL[employer]ER [employer] MECHANIC Work Phone: [facility] 12-03-2023 15:28-0400 Heart rate 56 /min Ulices Moya STOCK FEEDER.CYLINDER [employer] MECHANIC Work Phone: [facility] 12-03-2023 15:28-0400 Respiratory rate 18 /min Ulices Moya STOCK FEEDER.CYL[employer]ER [employer] MECHANIC Work Phone: [facility] 12-03-2023 15:28-0400 SaO2% (BldA) [Mass fraction] 92 % Ulices Moya APRN.[employer]ER [employer] MECHANIC Work Phone: [facility] 12-03-2023 15:28-0400 Systolic blood pressure 156 mm[Hg] Ulices Moya APRN.[employer]ER [employer] MECHANIC Work Phone: [facility] 11-25-2023 11:03-0400 Diastolic blood pressure 73 mm[Hg] Lulu Staton APRN.[employer] MECHANIC Work Phone: [facility] 11-25-2023 11:03-0400 Systolic blood pressure 135 mm[Hg] Lulu Staton APRN.[employer]ER [employer] MECHANIC Work Phone: [facility] 11-25-2023 10:51-0400 Body mass index (BMI) [Ratio] 36.12 kg/m2 Lulu Staton APRN.[employer]ER [employer] MECHANIC Work Phone: [facility] 11-25-2023 10:51-0400 Body weight 78.47 kg Lulu Staton APRN.[employer]ER [employer] MECHANIC Work Phone: [facility] 11-25-2023 10:51-0400 Heart rate 56 /min Lulu Staton APRN.[employer]ER [employer] MECHANIC Work Phone: [facility] 11-25-2023 10:51-0400 Respiratory rate 16 /min Lulu Staton APRN.[employer]ER [employer] MECHANIC Work Phone: [facility] 09-07-2023 10:21-0400 Body mass index (BMI) [Ratio] 36.33 kg/m2 Sarah Yang PA-C Work Phone: [facility] 09-07-2023 10:21-0400 Body temperature 98.29 [degF] Sarah Yang PA-C Work Phone: [facility] 09-07-2023 10:21-0400 Body weight 78.93 kg Sarah Yang PA-C Work Phone: [facility] 09-07-2023 10:21-0400 Diastolic blood pressure 71 mm[Hg] Sarah Yang PA-C Work Phone: [facility] 09-07-2023 10:21-0400 Heart rate 52 /min Sarah Yang PA-C Work Phone: [facility] 09-07-2023 10:21-0400 Respiratory rate 20 /min Sarah Yang PA-C Work Phone: [facility] 09-07-2023 10:21-0400 SaO2% (BldA) [Mass fraction] 92 % Sarah Yang PA-C Work Phone: [facility] 09-07-2023 10:21-0400 Systolic blood pressure 114 mm[Hg] Sarah Yang PA-C Work Phone: [facility] 08-03-2023 11:34-0400 Body height 147.4 cm Pulm Wstr Work Phone: [facility] 08-03-2023 11:34-0400 Body weight 79.83 kg Pulm Wstr Work Phone: [facility] 08-03-2023 11:34-0400 Heart rate 55 /min Pulm Wstr Work Phone: [facility] 08-03-2023 11:34-0400 Respiratory rate 14 /min Pulm Wstr Work Phone: [facility] 08-03-2023 11:34-0400 SaO2% (BldA) [Mass fraction] 95 % Pulm Wstr Work Phone: [facility] 07-27-2023 12:55-0400 Body temperature 98.49 [degF] Sarah Yang PA-C Work Phone: [facility] 07-27-2023 12:55-0400 Body weight 80.29 kg Sarah Yang PA-C Work Phone: [facility] 07-27-2023 12:55-0400 Diastolic blood pressure 71 mm[Hg] Sarah Yang PA-C Work Phone: [facility] 07-27-2023 12:55-0400 Heart rate 52 /min Sarah Yang PA-C Work Phone: [facility] 07-27-2023 12:55-0400 Respiratory rate 16 /min Sarah Yang PA-C Work Phone: [facility] 07-27-2023 12:55-0400 SaO2% (BldA) [Mass fraction] 94 % Sarah Yang PA-C Work Phone: [facility] 07-27-2023 12:55-0400 Systolic blood pressure 139 mm[Hg] Sarah Yang PA-C Work Phone: [facility] 05-27-2023 10:00-0500 Body weight 80.74 kg Rufino Erickson MD Work Phone: [facility] 05-27-2023 10:00-0500 Diastolic blood pressure 66 mm[Hg] Rufino Erickson MD Work Phone: [facility] 05-27-2023 10:00-0500 Heart rate 55 /min Rufino Erickson MD Work Phone: [facility] 05-27-2023 10:00-0500 Respiratory rate 16 /min Rufino Erickson MD Work Phone: [facility] 05-27-2023 10:00-0500 SaO2% (BldA) [Mass fraction] 96 % Rufino Erickson MD Work Phone: [facility] 05-27-2023 10:00-0500 Systolic blood pressure 132 mm[Hg] Rufino Erickson MD Work Phone: [facility] 03-08-2023 12:53-0500 Body weight 79.38 kg Lulu Staton APRN.[employer]ER [employer] MECHANIC Work Phone: [facility] 03-08-2023 12:53-0500 Diastolic blood pressure 66 mm[Hg] Lulu Staton APRN.[employer]ER [employer] MECHANIC Work Phone: [facility] 03-08-2023 12:53-0500 Heart rate 58 /min Lulu tSaton APRN.CYLINDER BLOCK MECHANIC Work Phone: [facility] 03-08-2023 12:53-0500 Respiratory rate 16 /min Lulu Kenneth STOCK FEEDER.CYLINDER BLOCK MECHANIC Work Phone: [facility] 03-08-2023 12:53-0500 SaO2% (BldA) [Mass fraction] 96 % Lulu Staton STOCK FEEDER.CYLINDER BLOCK MECHANIC Work Phone: [facility] 03-08-2023 12:53-0500 Systolic blood pressure 130 mm[Hg] Lulu Staton STOCK FEEDER.CYLINDER BLOCK MECHANIC Work Phone: [facility] 03-05-2023 09:10-0500 Body temperature 98.1 [degF] Samanta Mock STOCK FEEDER.CYLINDER BLOCK MECHANIC Work Phone: [facility] 03-05-2023 09:10-0500 Body weight 80.65 kg Samanta Mock STOCK FEEDER.CYLINDER BLOCK MECHANIC Work Phone: [facility] 03-05-2023 09:10-0500 Diastolic blood pressure 72 mm[Hg] Samanta Mock STOCK FEEDER.CYLINDER BLOCK MECHANIC Work Phone: [facility] 03-05-2023 09:10-0500 Heart rate 66 /min Samanta Mock STOCK FEEDER.CYLINDER BLOCK MECHANIC Work Phone: [facility] 03-05-2023 09:10-0500 Respiratory rate 16 /min Samanta Mock STOCK FEEDER.CYLINDER BLOCK MECHANIC Work Phone: [facility] 03-05-2023 09:10-0500 SaO2% (BldA) [Mass fraction] 96 % Samanta Mock STOCK FEEDER.CYLINDER BLOCK MECHANIC Work Phone: [facility] 03-05-2023 09:10-0500 Systolic blood pressure 116 mm[Hg] Samanta Mock STOCK FEEDER.CYLINDER BLOCK MECHANIC Work Phone: [facility] 02-12-2023 10:12-0400 Body temperature 100.09 [degF] Samanta Mock STOCK FEEDER.CYLINDER BLOCK MECHANIC Work Phone: [facility] 02-12-2023 10:12-0400 Body weight 79.38 kg Samanta Mock STOCK FEEDER.CYLINDER BLOCK MECHANIC Work Phone: [facility] 02-12-2023 10:12-0400 Diastolic blood pressure 68 mm[Hg] Samanta Mock STOCK FEEDER.CYLINDER BLOCK MECHANIC Work Phone: [facility] 02-12-2023 10:12-0400 Heart rate 68 /min Samanta Mock STOCK FEEDER.CYLINDER BLOCK MECHANIC Work Phone: [facility] 02-12-2023 10:12-0400 Respiratory rate 20 /min Samanta Mock STOCK FEEDER.CYLINDER BLOCK MECHANIC Work Phone: [facility] 02-12-2023 10:12-0400 SaO2% (BldA) [Mass fraction] 93 % Samanta Omck STOCK FEEDER.CYLINDER BLOCK MECHANIC Work Phone: [facility] 02-12-2023 10:12-0400 Systolic blood pressure 136 mm[Hg] Samanta Mock STOCK FEEDER.CYLINDER BLOCK MECHANIC Work Phone: [facility] 01-11-2023 15:08-0400 Body temperature 98.71 [degF] Ulices Griffin STOCK FEEDER.CYLINDER BLOCK MECHANIC Work Phone: [facility] 01-11-2023 15:08-0400 Body weight 80.2 kg Ulices Griffin STOCK FEEDER.CYLINDER BLOCK MECHANIC Work Phone: [facility] 01-11-2023 15:08-0400 Diastolic blood pressure 70 mm[Hg] Ulices Griffin STOCK FEEDER.CYLINDER BLOCK MECHANIC Work Phone: [facility] 01-11-2023 15:08-0400 Heart rate 52 /min Ulices Griffin STOCK FEEDER.CYLINDER BLOCK MECHANIC Work Phone: [facility] 01-11-2023 15:08-0400 Respiratory rate 18 /min Ulices Griffin STOCK FEEDER.CYLINDER BLOCK MECHANIC Work Phone: [facility] 01-11-2023 15:08-0400 SaO2% (BldA) [Mass fraction] 93 % Ulices Griffin STOCK FEEDER.CYLINDER BLOCK MECHANIC Work Phone: [facility] 01-11-2023 15:08-0400 Systolic blood pressure 149 mm[Hg] Ulices Griffin STOCK FEEDER.CYLINDER BLOCK MECHANIC Work Phone: [facility] 11-24-2022 12:55-0400 Body height 148 cm Sarah Yang PA-C Work Phone: [facility] 11-24-2022 12:55-0400 Body temperature 98.8 [degF] Sarah Yang PA-C Work Phone: [facility] 11-24-2022 12:55-0400 Body weight 80.29 kg Sarah Yang PA-C Work Phone: [facility] 11-24-2022 12:55-0400 Diastolic blood pressure 66 mm[Hg] Sarah Yang PA-C Work Phone: [facility] 11-24-2022 12:55-0400 Heart rate 57 /min Sarah Yang PA-C Work Phone: [facility] 11-24-2022 12:55-0400 Respiratory rate 18 /min Sarah Yang PA-C Work Phone: [facility] 11-24-2022 12:55-0400 Systolic blood pressure 100 mm[Hg] Sarah Yang PA-C Work Phone: [facility] 05-27-2022 11:35-0500 Body weight 80.29 kg Rufino Erickson MD Work Phone: [facility] 05-27-2022 11:35-0500 Diastolic blood pressure 70 mm[Hg] Rufino Erickson MD Work Phone: [facility] 05-27-2022 11:35-0500 Heart rate 54 /min Rufino Erickson MD Work Phone: [facility] 05-27-2022 11:35-0500 Respiratory rate 16 /min Rufino Erickson MD Work Phone: [facility] 05-27-2022 11:35-0500 Systolic blood pressure 112 mm[Hg] Rufino Erickson MD Work Phone: [facility] 03-27-2022 13:46-0500 Body height 147.3 cm Ulices Garcia MD Work Phone: [facility] 03-27-2022 13:46-0500 Body temperature 97.81 [degF] Ulices Garcia MD Work Phone: [facility] 03-27-2022 13:46-0500 Body weight 77.11 kg Ulices Garcia MD Work Phone: [facility] 03-27-2022 13:46-0500 Diastolic blood pressure 70 mm[Hg] Ulices Garcia MD Work Phone: [facility] 03-27-2022 13:46-0500 Heart rate 52 /min Ulices Garcia MD Work Phone: [facility] 03-27-2022 13:46-0500 SaO2% (BldA) [Mass fraction] 95 % Ulices Garcia MD Work Phone: [facility] 03-27-2022 13:46-0500 Systolic blood pressure 136 mm[Hg] Ulices Garcia MD Work Phone: [facility] 01-31-2022 12:27-0400 Body temperature 98.4 [degF] Shady Smiley MD Work Phone: [facility] 01-31-2022 12:27-0400 Body weight 80.11 kg Shady Smiley MD Work Phone: [facility] 01-31-2022 12:27-0400 Diastolic blood pressure 74 mm[Hg] Shady Smiley MD Work Phone: [facility] 01-31-2022 12:27-0400 Heart rate 64 /min Shady Smiley MD Work Phone: [facility] 01-31-2022 12:27-0400 Respiratory rate 20 /min Shady Smiley MD Work Phone: [facility] 01-31-2022 12:27-0400 SaO2% (BldA) [Mass fraction] 95 % Shady Smiley MD Work Phone: [facility] 01-31-2022 12:27-0400 Systolic blood pressure 128 mm[Hg] Shady Smiley MD Work Phone: [facility] 12-09-2021 15:12-0400 Body height 149 cm Tia Martinez MD Work Phone: [facility] 12-09-2021 15:12-0400 Body temperature 98.6 [degF] Tia Martinez MD Work Phone: [facility] 12-09-2021 15:12-0400 Body weight 80.29 kg Tia Martinez MD Work Phone: [facility] 12-09-2021 15:12-0400 Diastolic blood pressure 63 mm[Hg] Tia Martinez MD Work Phone: [facility] 12-09-2021 15:12-0400 Heart rate 56 /min Tia Martinez MD Work Phone: [facility] 12-09-2021 15:12-0400 SaO2% (BldA) [Mass fraction] 96 % Tia Martinez MD Work Phone: [facility] 12-09-2021 15:12-0400 Systolic blood pressure 132 mm[Hg] Tia Martinez MD Work Phone: [facility] 11-20-2021 10:29-0400 Body height 148 cm Sarah Yang PA-C Work Phone: [facility] 11-20-2021 10:29-0400 Body temperature 98.6 [degF] Sarah Yang PA-C Work Phone: [facility] 11-20-2021 10:29-0400 Body weight 79.38 kg Sarah Yang PA-C Work Phone: [facility] 11-20-2021 10:29-0400 Diastolic blood pressure 76 mm[Hg] Sarah Yang PA-C Work Phone: [facility] 11-20-2021 10:29-0400 Heart rate 60 /min Sarah Yang PA-C Work Phone: [facility] 11-20-2021 10:29-0400 Respiratory rate 18 /min Sarah Yang PA-C Work Phone: [facility] 11-20-2021 10:29-0400 Systolic blood pressure 120 mm[Hg] Sarah Yang PA-C Work Phone: [facility] 09-21-2021 14:05-0400 Body temperature 98.1 [degF] Kiera Kelley STOCK FEEDER.CYLINDER BLOCK MECHANIC Work Phone: [facility] 09-21-2021 14:05-0400 Body weight 81.38 kg Kiera Kelley STOCK FEEDER.CYLINDER BLOCK MECHANIC Work Phone: [facility] 09-21-2021 14:05-0400 Diastolic blood pressure 82 mm[Hg] Kiera Kelley STOCK FEEDER.CYLINDER BLOCK MECHANIC Work Phone: [facility] 09-21-2021 14:05-0400 Heart rate 58 /min Kiera Kelley STOCK FEEDER.CYLINDER BLOCK MECHANIC Work Phone: [facility] 09-21-2021 14:05-0400 Respiratory rate 18 /min Kiera Kelley STOCK FEEDER.CYLINDER BLOCK MECHANIC Work Phone: [facility] 09-21-2021 14:05-0400 SaO2% (BldA) [Mass fraction] 95 % Kiera Kelley STOCK FEEDER.CYLINDER BLOCK MECHANIC Work Phone: [facility] 09-21-2021 14:05-0400 Systolic blood pressure 132 mm[Hg] Kiera Kelley STOCK FEEDER.CYLINDER BLOCK MECHANIC Work Phone: [facility] Encounters Encounter Date Encounter Type Care Provider Facility Start: 01-12-2025 Patient encounter procedure Daniela CONNER -Laboratory Specimen Work Phone: Start: 01-12-2025 ambulatory Daniela Chaparro ty:[facility] Start: 01-11-2025 End: 01-11-2025 ambulatory RUFINO TORRESEY Facility:[facility] Start: 01-11-2025 End: 01-11-2025 Patient encounter procedure Daniela CONNER -[facility] Work Phone: Start: 01-11-2025 End: 01-11-2025 ambulatory Rufino Erickson Facility:[facility] Start: 01-09-2025 End: 01-09-2025 ambulatory RUFINO ERICKSON Facility:[facility] Start: 01-05-2025 End: 01-05-2025 ambulatory SARAH YANG Facility:[facility] Start: 01-02-2025 End: 01-02-2025 OT/PT/Speech Visit Steve Mane PT Work Phone: [facility] Comment on above: Multiple falls (Prim carlitos Dx); Balance disorder; History of CVA (cerebrovascular accident); General weakness Start: 01-01-2025 End: 01-01-2025 Telephone encounter Rufino Erickson MD Work Phone: [facility] Comment on above: Forms ([place]) Start: 12-29-2024 End: 12-29-2024 Follow-up encounter Lulu Staton APRN.CYLINDER BLOCK MECHANIC Work Phone: [facility] Comment on above: Results Start: 12-29-2024 End: 12-29-2024 Subsequent hospital visit by physician Xr [facility] Work Phone: Radiology Comment on above: Acute cough [R05.1] Start: 12-29-2024 End: 12-29-2024 Patient encounter procedure Lulu Staton APRN.CYLINDER BLOCK MECHANIC Work Phone: [facility] Comment on above: Black tarry stools ( Primary Dx); Acute cough; Rhonchi at left lung base Start: 12-29-2024 End: 12-29-2024 ambulatory LULU STATON Facility:[facility] Start: 12-28-2024 End: 12-28-2024 ambulatory Rufino Erickson MD Work Phone: [facility] Comment on above: Rectal Bleeding Start: 12-14-2024 End: 12-14-2024 Follow-up encounter Rufino Erickson MD Work Phone: [facility] Comment on above: Results Start: 12-14-2024 End: 12-14-2024 Patient encounter procedure [facility] Work Phone: Start: 12-14-2024 End: 12-14-[address] Rufino Erickson MD Work Phone: [facility] Start: 12-11-2024 End: 12-11-2024 Patient encounter procedure Rufino Erickson MD Work Phone: [facility] Comment on above: Multiple falls (Prim carlitos Dx); Balance disorder; History of CVA (cerebrovascular accident); General weakness; Urine frequency; Urgency of urination; Primary insomnia; Itching; Defecation symptom Start: 12-11-2024 End: 12-11-2024 ambulatory Nurse Intm/Famp Triage [facility] Work Phone: Nurse Phone Triage Comment on above: Urinary Frequency; F all Start: 12-07-2024 End: 12-07-2024 Patient encounter procedure Mónica HANSON -[facility] Work Phone: Start: 12-07-2024 End: 12-07-[address] Rufino Erickson MD Work Phone: -[facility] Start: 11-20-2024 End: 11-20-[address] Ramu Aguilar MD -[facility] Work Phone: Start: 11-20-2024 End: 11-20-[address] Rufino Erickson MD Work Phone: -[facility] Start: 11-10-2024 End: 11-10-2024 Follow-up encounter Sarah Yang PA-C Work Phone: [facility] Start: 11-03-2024 ambulatory LULU Boykin y:[facility] Start: 11-03-2024 End: 11-03-2024 Subsequent hospital visit by physician Gabe [facility] Work Phone: Radiology Comment on above: Open fracture of one rib of left side with routine healing, subsequent encounter [S22.32XD] Start: 10-31-2024 Registered Referred Mónica HANSON -Cardiovascular Services Work Phone: Start: 10-31-2024 ambulatory Rufino Erickson Facility :[facility] Start: 10-31-2024 Non-patient / Non-visit Dr. Thong MARTE -[facility] Work Phone: Start: 10-27-2024 End: 10-27-2024 Chart abstracting Rufino Erickson MD Work Phone: [facility] Start: 10-26-2024 End: 10-26-2024 Patient encounter procedure Mónica HANSON -[facility] Work Phone: Start: 10-26-2024 End: 10-26-[address] Rufino Erickson MD Work Phone: -[facility] Start: 10-24-2024 End: 10-24-2024 Chart abstracting Rufino Erickson MD Work Phone: [facility] Comment on above: ext document ([facility] ER report) Start: 10-23-2024 End: 10-23-2024 Emergency department patient visit Dr. Rufino Erickson MD Work Phone: -Emergency Department Work Phone: Start: 10-19-2024 End: 10-19-2024 Patient encounter procedure Lulu Staton STOCK FEEDER.CYLINDER BLOCK MECHANIC Work Phone: [facility] Comment on above: Open fracture of one rib of left side with routine healing, subsequent encounter (Primary Dx) Start: 10-19-2024 End: 10-19-2024 ambulatory LULU STATON Facility:[facility] Start: 10-07-2024 End: 10-07-2024 Subsequent hospital visit by physician Xr [facility] Work Phone: Radiology Comment on above: Rib pain on left lindsey e [R07.81] Start: 10-07-2024 End: 10-07-2024 ambulatory Rufino Erickson MD Work Phone: [facility] Comment on above: Fall Start: 10-07-2024 End: 10-07-2024 Office outpatient visit 25 minutes Cruz Schwanger STOCK FEEDER.CYLINDER BLOCK MECHANIC Work Phone: [facility] Comment on above: Rib pain on left lindsey e (Primary Dx) Start: 09-29-2024 End: 09-29-2024 Telephone encounter Rufino Erickson MD Work Phone: [facility] Comment on above: Forms (Pre-Op) Start: 09-27-2024 End: 09-27-2024 ambulatory [facility] Facility:[facility] Start: 09-27-2024 Encounter for other preprocedural examination LULU STATON [facility] Start: 09-27-2024 End: 09-27-2024 Patient encounter procedure Rufino Erickson MD Work Phone: [facility] Comment on above: Pre-operative cleara nce (Primary Dx); Vitreous hemorrhage, right eye (HCC); Hypertension, essential; Elevated hemoglobin A1c; History of CVA (cerebrovascular accident); Paroxysmal atrial fibrillation (HCC); RBBB Start: 09-27-2024 End: 09-27-2024 Preoperative state Rufino Erickson MD Work Phone: [facility] Work Phone: Start: 09-27-2024 End: 09-27-2024 [facility] Start: 08-24-2024 End: 08-24-2024 Patient encounter procedure Melisa CONNER -[facility] Work Phone: Start: 08-24-2024 End: 08-24-2024 ambulatory Rufino Erickson Facility:[facility] Start: 07-13-2024 End: 07-13-2024 ambulatory Cindy Monique APRN.CYLINDER BLOCK MECHANIC Work Phone: [facility] Comment on above: RESULTS Start: 07-13-2024 End: 07-13-2024 E-mail encounter from caregiver Cindy Monique APRN.CYLINDER BLOCK MECHANIC Work Phone: [facility] Start: 07-12-2024 End: 07-12-2024 Subsequent hospital visit by physician [facility] Work Phone: Radiology Comment on above: Flu-like symptoms [R 68.89] Start: 07-12-2024 End: 07-12-2024 ambulatory RUFINO ERICKSON Facility:[facility] Start: 07-12-2024 End: 07-12-2024 Patient encounter procedure Harrison Barryluis echandrakant CYLINDER BLOCK MECHANIC Work Phone: [facility] Comment on above: Flu-like symptoms (P rimary Dx); Acute upper respiratory infection, unspecified Start: 07-12-2024 End: 09-11-2024 Follow-up encounter Harrison Osborne APRN.CYLINDER BLOCK MECHANIC Work Phone: [facility] Start: 07-06-2024 End: 07-07-2024 Follow-up encounter Rufino Erickson MD Work Phone: [facility] Comment on above: Results Start: 07-05-2024 End: 07-05-2024 ambulatory RUFINO ERICKSON Facility:[facility] Start: 07-05-2024 End: 07-05-2024 Patient encounter procedure Rufino Erickson MD Work Phone: [facility] Comment on above: Hypertension, essent ial (Primary Dx); Elevated hemoglobin A1c; Paroxysmal atrial fibrillation (HCC); History of CVA (cerebrovascular accident); Left hemiparesis (HCC); Pseudothrombocytopenia; Balance disorder Start: 06-21-2024 ambulatory Rufinomargarita Erickson Facility :[facility] Start: 06-14-2024 ambulatory Rufino Shannon Facility :[facility] Start: 06-12-2024 End: 06-12-2024 Chart abstracting John Gomez MA [facility] Comment on above: Hospital Follow Up ( [facility] ) Start: 06-09-2024 End: 06-09-2024 ambulatory Rufino Erickson Facility:[facility] Start: 06-08-2024 End: 06-08-2024 [facility] Start: 06-08-2024 End: 06-08-2024 ambulatory [facility] Facility:[facility] Start: 06-07-2024 ambulatory [facility] Facility :[facility] Start: 06-06-2024 End: 06-06-2024 ambulatory [facility] Facility:[facility] Start: 05-31-2024 End: 05-31-2024 Telephone encounter Rufino Erickson MD Work Phone: [facility] Comment on above: Patient Update Start: 05-31-2024 End: 05-31-2024 ambulatory Rufino Erickson Facility:[facility] Start: 05-30-2024 End: 05-30-2024 ambulatory RUFINO A SHANNON Facility:[facility] Start: 05-30-2024 End: 05-30-2024 Patient encounter procedure Rufino Erickson MD Work Phone: [facility] Comment on above: Thrombocytopenia (HC C) (Primary Dx); Paroxysmal atrial fibrillation (HCC); History of CVA (cerebrovascular accident); Left hemiparesis (HCC); Dementia without behavioral disturbance (HCC); Bacterial pneumonia; Hyponatremia Start: 05-24-2024 ambulatory [facility] Facility :[facility] Start: 05-23-2024 End: 05-23-2024 ambulatory [facility] Facility:[facility] Start: 05-17-2024 ambulatory [facility] Facility :[facility] Start: 05-16-2024 End: 05-16-2024 ambulatory [facility] Facility:[facility] Start: 05-10-2024 ambulatory [facility] Facility :[facility] Start: 05-09-2024 End: 05-09-2024 ambulatory [facility] Facility:[facility] Start: 05-04-2024 End: 05-04-2024 ambulatory [facility] Facility:[facility] Start: 05-03-2024 End: 05-03-2024 Chart abstracting Rufino Erickson MD Work Phone: [facility] Comment on above: D/C Summary Events ( Transfer to Extended Care Summary) Start: 04-24-2024 End: 04-24-2024 Chart abstracting John Gomez MA [facility] [place] painter Comment on above: ER F/U ([facility] ) Start: 04-20-2024 End: 05-03-2024 Evaluation and management of inpatient Rufino Erickson Facility:[facility] Start: 04-20-2024 End: 04-20-2024 Chart abstracting Rufino Erickson MD Work Phone: [facility] Comment on above: ER Discharge Summary (H&P, Neurology Consult) Start: 04-20-2024 ambulatory Rufino Erickson Facility :[facility] Start: 04-20-2024 ambulatory Shaheed Burkett Facility:[facility] Start: 04-18-2024 ambulatory Jose Diamond Facility:[facility] Start: 04-18-2024 End: 04-20-2024 Evaluation and management of inpatient Shaheed Burkett Facility:[facility] Start: 04-18-2024 End: 04-18-2024 Telephone encounter Tracie Parker LPN Work Phone: [facility] Comment on above: Home Care (Delay SOC ) Home Care (Confirmat ion Call ) Patient Update Start: 04-17-2024 End: 04-17-2024 Telephone encounter Lulu Staton APRN.CNP Work Phone: [facility] Comment on above: Home Care Results Start: 04-17-2024 End: 04-17-2024 Subsequent hospital visit by physician Xr [facility] Work Phone: Radiology Comment on above: RSV (acute bronchiol itis due to respiratory syncytial virus) [J21.0] Start: 04-17-2024 End: 04-17-2024 Patient encounter procedure Lulu Staton APRN.CNP Work Phone: [facility] Comment on above: Generalized weakness (Primary Dx); RSV (acute bronchiolitis due to respiratory syncytial virus) Start: 04-17-2024 End: 04-17-2024 ambulatory LULU STATON Facility:[facility] Start: 04-07-2024 End: 04-09-2024 Evaluation and management of inpatient Shanika Bruno Facility:[facility] Start: 04-07-2024 End: 04-07-2024 ambulatory RUFINO Kenn SHANNON Facility:[facility] Start: 04-07-2024 End: 04-07-2024 Patient encounter procedure Ulices Moya APRN.CYLINDER BLOCK MECHANIC Work Phone: [facility] Comment on above: Trouble breathing (P rimary Dx); Rhonchi Start: 02-18-2024 End: 02-18-2024 Refill Rufino Erickson MD Work Phone: [facility] Comment on above: Refill Request Start: 01-11-2024 End: 01-11-2024 Telephone encounter Rufino Erickson MD Work Phone: [facility] Comment on above: Results Start: 01-11-2024 End: 01-11-2024 Subsequent hospital visit by physician Xr [facility] Work Phone: Radiology Comment on above: COVID-19 virus infec tion [U07.1] Start: 01-11-2024 End: 01-11-2024 Patient encounter procedure Rufino Erickson MD Work Phone: [facility] Comment on above: COVID-19 virus infec tion (Primary Dx); Persistent cough Start: 12-28-2023 End: 12-28-2023 Chart abstracting Rufino Erickson MD Work Phone: [facility] Comment on above: Outside Cardiology Start: 12-03-2023 End: 12-03-2023 Subsequent hospital visit by physician Xr [facility] Work Phone: Radiology Comment on above: Injury of left upper extremity, initial encounter [S49.92XA] Start: 12-03-2023 End: 12-03-2023 Patient encounter procedure Ulices Moya APRN.CYLINDER BLOCK MECHANIC Work Phone: [facility] Comment on above: Injury of left upper extremity, initial encounter (Primary Dx) Start: 11-25-2023 End: 11-25-2023 Patient encounter procedure Lulu Staton APRN.CYLINDER BLOCK MECHANIC Work Phone: [facility] Comment on above: Essential hypertensi on (Primary Dx); Elevated hemoglobin A1c; Paroxysmal atrial fibrillation (HCC); Obesity, Class II, BMI 35-39.9; Encounter for Medicare annual wellness exam; Osteopenia, senile; Medication management; Thrombocytopenia (HCC); Advance directive discussed with patient; Screening for depression; Encounter for screening examination for other mental health and behavioral disorders; Pain in both knees, unspecified chronicity; Primary osteoarthritis of both knees Start: 11-17-2023 Chart abstracting Jhon Gomez MA [facility] Comment on above: ER F/U ([facility] ER ) Start: 10-19-2023 Telephone encounter Sarahkranthi garcia PA-C Work Phone: [facility] Comment on above: Patient Update Start: 10-11-2023 Refill Rufino oquendo MD Work Phone: [facility] Comment on above: Refill Request Start: 09-07-2023 End: 09-07-2023 Patient encounter procedure Sarah Yang PA-C Work Phone: [facility] Comment on above: Chronic cough (Prima ry Dx) Start: 08-04-2023 Telephone encounter Sarahkranthi agrcia PA-C Work Phone: [facility] Comment on above: Results Start: 08-03-2023 End: 08-03-2023 ambulatory [facility] Work Phone: [facility] Comment on above: Spirometry Start: 08-03-2023 End: 08-03-2023 Patient encounter procedure [facility] Start: 07-28-2023 Telephone encounter Sarah Aditi garcia PA-C Work Phone: [facility] Comment on above: Results Start: 07-27-2023 End: 07-27-2023 Subsequent hospital visit by physician Xr [facility] Work Phone: Radiology Comment on above: Acute cough [R05.1] Start: 07-27-2023 End: 07-27-2023 Patient encounter procedure Sarah Yang PA-C Work Phone: [facility] Comment on above: Acute cough (Primary Dx); Chronic cough Start: 07-09-2023 Refill Rufino oquendo MD Work Phone: [facility] Comment on above: Refill Request Start: 06-28-2023 Refill Lulu chan APRN.CNP Work Phone: [facility] Comment on above: Refill Request Start: 05-27-2023 End: 05-27-2023 Patient encounter procedure Rufino Erickson MD Work Phone: [facility] Comment on above: Hypertension, essent ial (Primary Dx); Elevated hemoglobin A1c; Paroxysmal atrial fibrillation (HCC); Pseudothrombocytopenia; Obesity, Class II, BMI 35-39.9; Encounter for immunization; Common wart; Impacted cerumen of right ear Start: 03-29-2023 Chart abstracting Rufino birmingham MD Work Phone: [facility] Comment on above: Outside Cardiology Start: 03-29-2023 Telephone encounter Lulu sims APRN.CYLINDER BLOCK MECHANIC Work Phone: [facility] Comment on above: Results Start: 03-26-2023 End: 03-26-2023 Subsequent hospital visit by physician Xr [facility] Work Phone: Radiology Comment on above: Acute cough [R05.1] Start: 03-24-2023 Telephone encounter Rufino Erickson MD Work Phone: [facility] Comment on above: repeat chest xray re sults Start: 03-19-2023 End: 03-19-2023 Subsequent hospital visit by physician Xr [facility] Work Phone: Radiology Comment on above: Acute cough [R05.1] Start: 03-08-2023 End: 03-08-2023 Patient encounter procedure Lulu Staton APRN.CYLINDER BLOCK MECHANIC Work Phone: [facility] Comment on above: Acute cough Start: 03-05-2023 End: 03-05-2023 Subsequent hospital visit by physician Xr [facility] Work Phone: Radiology Comment on above: Subacute cough [R05. 2] Start: 03-05-2023 End: 03-05-2023 Patient encounter procedure Samanta Mock APRN.CYLINDER BLOCK MECHANIC Work Phone: [facility] Comment on above: Subacute cough (Prim carlitos Dx); Bronchospasm Start: 02-26-2023 Telephone encounter Rufino Erickson MD Work Phone: [facility] Comment on above: Appointment Start: 02-12-2023 End: 02-12-2023 Subsequent hospital visit by physician Gabe [facility] Work Phone: Radiology Comment on above: Acute cough [R05.1] Start: 02-12-2023 End: 02-12-2023 Patient encounter procedure Samanta Romerosandy YIP.CYLINDER BLOCK MECHANIC Work Phone: [facility] Comment on above: Acute cough (Primary Dx); Bacterial pneumonia Start: 01-11-2023 End: 01-11-2023 Patient encounter procedure Ulices Moya APRN.CYLINDER BLOCK MECHANIC Work Phone: [facility] Comment on above: Protracted URI (Prim carlitos Dx) Start: 12-28-2022 End: 12-28-2022 ambulatory Tiffani O'Justin PT [facility] Comment on above: 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 (Primary Dx) Start: 12-18-2022 End: 12-18-2022 ambulatory Jojo Kashuba DIRECTOR OF MEDICAL REVIEW Work Phone: [facility] Comment on above: 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 (Primary Dx) Start: 12-11-2022 End: 12-11-2022 ambulatory Jojo Kashuba DIRECTOR OF MEDICAL REVIEW Work Phone: [facility] Comment on above: 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 (Primary Dx) Start: 12-07-2022 End: 12-07-2022 ambulatory Tiffani O'Justin PT [facility] Comment on above: 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 (Primary Dx) Start: 11-30-2022 End: 11-30-2022 ambulatory Tiffani O'Justin PT [facility] Comment on above: 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 (Primary Dx) Start: 11-26-2022 Telephone encounter Sarah garcia PA-C Work Phone: [facility] Comment on above: Results Start: 11-25-2022 Telephone encounter Sarah garcia PA-C Work Phone: [facility] Comment on above: Results Start: 11-24-2022 End: 11-24-2022 Subsequent hospital visit by physician Gabe [facility] Work Phone: Radiology Comment on above: 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 [M54.50, G89.29] Start: 11-24-2022 End: 11-24-2022 Patient encounter procedure Sarah Yang PA-C Work Phone: [facility] Comment on above: Encounter for Medica re annual wellness exam (Primary Dx); Advance directive discussed with patient; Osteopenia, senile; Obesity, Class II, BMI 35-39.9; Hypertension, essential; Paroxysmal atrial fibrillation (HCC); Elevated hemoglobin A1c; Primary osteoarthritis of both knees; 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; Suprapubic pain; Verruca Start: 07-20-2022 Refill Rufino oquendo MD Work Phone: [facility] Comment on above: Refill Request Start: 07-15-2022 Refill Sarah Riverton on PA-C Work Phone: [facility] Comment on above: Refill Request Start: 07-04-2022 Chart abstracting Rufino birmingham MD Work Phone: [facility] Comment on above: Consult Start: 05-27-2022 End: 05-27-2022 Patient encounter procedure Rufino Erickson MD Work Phone: [facility] Comment on above: Hypertension, essent ial (Primary Dx); Elevated hemoglobin A1c; Paroxysmal atrial fibrillation (HCC); Pseudothrombocytopenia; Obesity, Class II, BMI 35-39.9; Medication management Start: 04-23-2022 Refill Sarah Thurston on PA-C Work Phone: [facility] Comment on above: Refill Request Start: 03-27-2022 End: 03-27-2022 Patient encounter procedure Ulices Garcia MD Work Phone: [facility] Comment on above: Bronchitis (Primary Dx) Start: 01-31-2022 End: 01-31-2022 Patient encounter procedure Shady Smiley MD Work Phone: [facility] Comment on above: URI, acute (Primary Dx) Start: 12-10-2021 Telephone encounter Tia Martinez MD Work Phone: Hematology/Oncology Comment on above: Results Start: 12-09-2021 End: 12-09-2021 ambulatory Tia Martinez MD Work Phone: Hematology/Oncology Comment on above: Thrombocytopenia, se condary (Primary Dx) Start: 12-09-2021 End: 12-09-2021 Patient encounter procedure Tia Martinez MD Work Phone: [facility] Start: 11-28-2021 Telephone encounter Sarah garcia PA-C Work Phone: [facility] Comment on above: Results Appointment Start: 11-21-2021 Telephone encounter Sarah garcia PA-C Work Phone: [facility] Comment on above: Results Start: 11-20-2021 End: 11-20-2021 Patient encounter procedure Sarah Yang PA-C Work Phone: [facility] Comment on above: Encounter for Medica re annual wellness exam (Primary Dx); Advanced care planning/counseling discussion; Hypertension, essential; Paroxysmal atrial fibrillation (HCC); Elevated hemoglobin A1c; Primary osteoarthritis of both knees; Obesity, Class II, BMI 35-39.9; Osteopenia, senile Start: 10-17-2021 Refill Sarah Thurston on PA-C Work Phone: [facility] Comment on above: Refill Request Start: 09-22-2021 End: 09-22-2021 Subsequent hospital visit by physician Xr [facility] Work Phone: Radiology Comment on above: Cough [R05.9] Start: 09-21-2021 End: 09-21-2021 Patient encounter procedure Kiera Benson APRN.CYLINDER BLOCK MECHANIC Work Phone: [facility] Comment on above: Cough (Primary Dx); Acute non-recurrent pansinusitis Start: 05-19-2021 Patient encounter procedure Kiera Benson CYLINDER BLOCK MECHANIC Work Phone: [facility] Work Phone: Start: 11-21-2020 End: 11-21-2020 Subsequent hospital visit by physician Gabe [facility] Work Phone: Radiology Comment on above: Elbow pain, left [M2 5.522] Start: 03-17-2018 Ambulatory RAMO JUN Facility :[facility] Start: 07-15-2017 End: 07-15-2017 Ambulatory RAMO BARAHONA Facility:[facility] Start: 06-08-2017 End: 06-09-2017 Ambulatory TYLER Chandrakant RAYA Facility:[facility] Start: 06-03-2017 End: 06-04-2017 Ambulatory BRANDEE Roney ALAS Facility:B Start: 01-16-2017 End: 01-17-2017 Emergency department patient visit ROCIO FERGUSON Facility:[facility] Start: 12-04-2016 End: 04-01-2017 Ambulatory [facility] Facility:[facility] Procedures Date Procedure Procedure Detail Performing Clinician Start: 01-12-[address] e detection Dr. Rufino Erickson MD Work Phone: Start: 01-12-[address] Rufino Erickson MD Work Phone: Start: 01-12-[address] Nicky Erickson MD Work Phone: Comment on above: Test Ordered: [id number] Stool CultureSalmonella/Shigella Screen Note: CB Final report Reference Range: .Result 1 Comment CB Reference Range: .No Salmonella or Shigella recovered.Campylobacter Culture Note: CB Final report Reference Range: .Result 1 Comment CB Reference Range: .No Campylobacter species isolated.E coli Shiga Toxin EIA Negative CB Reference Range: NegativePerformed at: - [facility] [id number] Director: Bob Ring PhD, Phone: [phone] Start: 12-29-2024 Radiologic exam chest 2 views Lulu Staton APRN.CYLINDER BLOCK MECHANIC Work Phone: Start: 10-23-2024 Urnls dip stick/tabl et reagent auto microscopy Dr. Rufino Erickson MD Work Phone: Start: 10-23-2024 Plain chest X-ray Dr. Oliva Erickson MD Work Phone: Start: 10-23-[address] Rufino Erickson MD Work Phone: Start: 10-23-[address] Brandy Erickson MD Work Phone: Start: 10-23-2024 SARS-CoV-2, Influenz a & RSV (PCR) Dr. Rufino Erickson MD Work Phone: Start: 10-23-[address] Brandy Erickson MD Work Phone: Start: 10-07-2024 Radex ribs uni w/pos teroant ch minimum 3 views Cruz James STOCK FEEDER.CYLINDER BLOCK MECHANIC Work Phone: Start: 07-12-2024 Radiologic exam chest 2 views Harrison Jhonnyjoce STOCK FEEDER.CYLINDER BLOCK MECHANIC Work Phone: Start: 04-17-2024 Radiologic exam chest 2 views Lulu Staton STOCK FEEDER.CYLINDER BLOCK MECHANIC Work Phone: Start: 01-11-2024 Radiologic exam chest 2 views Rufino Erickson MD Work Phone: Start: 12-03-2023 Radex elbow complete minimum 3 views Ulices Moya STOCK FEEDER.CYLINDER BLOCK MECHANIC Work Phone: Start: 11-25-2023 Adult depression scr eening assessment Lulu Staton STOCK FEEDER.CYLINDER BLOCK MECHANIC Work Phone: Start: 08-03-2023 Brncdilat rspse spmt ry pre&post-brncdilat admn Sarah Yang PA-C Work Phone: Start: 07-27-2023 Radiologic exam chest 2 views Sarah Yang PA-C Work Phone: Start: 05-27-2023 Hemoglobin A1c/Hemoglobin.total in Blood Rufino Erickson MD Work Phone: Start: 05-27-2023 INFLUENZA VACCINE, P RSV FREE, AGE 65+ YR, HIGH DOSE, QUADRIVALENT (FLUZONE HIGH-DOSE) Rufino Erickson MD Work Phone: Start: 03-26-2023 Radiologic exam chest 2 views Lulu Staton STOCK FEEDER.CYLINDER BLOCK MECHANIC Work Phone: Start: 03-19-2023 Radiologic exam chest 2 views Lulu Staton STOCK FEEDER.CYLINDER BLOCK MECHANIC Work Phone: Start: 03-05-2023 Radiologic exam chest 2 views Samanta Mock STOCK FEEDER.CYLINDER BLOCK MECHANIC Work Phone: Start: 02-12-2023 Radiologic exam chest 2 views Samanta Mock STOCK FEEDER.CYLINDER BLOCK MECHANIC Work Phone: Start: 11-24-2022 Radex spine lumbosac ral 2/3 views Sarah Yang PA-C Work Phone: Start: 05-27-2022 Hemoglobin A1c/Hemoglobin.total in Blood Rufino Erickson MD Work Phone: Start: 09-22-2021 Radiologic exam chest 2 views Kiera Benson STOCK FEEDER.CYLINDER BLOCK MECHANIC Work Phone: Start: 11-21-2020 Radex elbow complete minimum 3 views Shady Smiley MD Work Phone: Plan of Treatment Date Care Activity Detail Author Start: 12-12-2027 Diabetes Screening Diabetes Screening [facility] Start: 11-18-2027 Urine microalbumin profile [facility] Start: 09-28-2027 Diabetes Screening Diabetes Screening [facility] Start: 07-06-2027 Diabetes Screening Diabetes Screening [facility] Start: 11-15-2026 Diabetes Screening Diabetes Screening [facility] Start: 05-27-2026 Diabetes Screening Diabetes Screening [facility] Start: 11-24-2025 DIABETES SCREEN DIABETES SCREEN [facility] Start: 11-24-2025 Diabetes Screening Diabetes Screening [facility] Start: 05-27-2025 DIABETES SCREEN DIABETES SCREEN [facility] Start: 02-08-2025 End: 02-08-2025 OT/PT/Speech Visit 02/08/2025 10:45 AM EDT OT/PT/Speech Visit [facility] [address] [place] [address] Steve Mane, PT [address] [facility] [place] [address] Dx: Multiple falls [R29.6]; Balance disorder [R26.89]; History of CVA (cerebrovascular accident) [Z86.73]; General weakness [R53.1] [facility] Comment on above: Dx: Multiple falls [R29.6]; Balance diso rder [R26.89]; History of CVA (cerebrovascular accident) [Z86.73]; General weakness [R53.1] Start: 02-06-2025 End: 02-06-2025 OT/PT/Speech Visit 02/06/2025 11:00 AM EDT OT/PT/Speech Visit [facility] [address] [facility] [place] [address] Jojo Herring, DIRECTOR OF MEDICAL REVIEW [address] [facility] [place] [address] Dx: Multiple falls [R29.6]; Balance disorder [R26.89]; History of CVA (cerebrovascular accident) [Z86.73]; General weakness [R53.1] [facility] Comment on above: Dx: Multiple falls [R29.6]; Balance diso rder [R26.89]; History of CVA (cerebrovascular accident) [Z86.73]; General weakness [R53.1] Start: 02-01-2025 End: 02-01-2025 OT/PT/Speech Visit 02/01/2025 10:45 AM EDT OT/PT/Speech Visit [facility] [address] [place] [address] Steve Mane, PT [address] [facility] [place] [address] Dx: Multiple falls [R29.6]; Balance disorder [R26.89]; History of CVA (cerebrovascular accident) [Z86.73]; General weakness [R53.1] [facility] Comment on above: Dx: Multiple falls [R29.6]; Balance diso rder [R26.89]; History of CVA (cerebrovascular accident) [Z86.73]; General weakness [R53.1] Start: 01-30-2025 End: 01-30-2025 OT/PT/Speech Visit 01/30/2025 11:45 AM EDT OT/PT/Speech Visit [facility] [address] [facility], [place] [phone] Jojo Herring, DIRECTOR OF MEDICAL REVIEW [address] [place], [place] [phone] Dx: Multiple falls [R29.6]; Balance disorder [R26.89]; History of CVA (cerebrovascular accident) [Z86.73]; General weakness [R53.1] [facility] Comment on above: Dx: Multiple falls [R29.6]; Balance diso rder [R26.89]; History of CVA (cerebrovascular accident) [Z86.73]; General weakness [R53.1] Start: 01-25-2025 End: 01-25-2025 OT/PT/Speech Visit 01/25/2025 10:45 AM EDT OT/PT/Speech Visit [facility] [address] [place], [place] [phone] Steve Mane, PT [address] [place], [place] [phone] Dx: Multiple falls [R29.6]; Balance disorder [R26.89]; History of CVA (cerebrovascular accident) [Z86.73]; General weakness [R53.1] [facility] Comment on above: Dx: Multiple falls [R29.6]; Balance diso rder [R26.89]; History of CVA (cerebrovascular accident) [Z86.73]; General weakness [R53.1] Start: 01-23-2025 End: 01-23-2025 OT/PT/Speech Visit 01/23/2025 3:30 PM EDT OT/PT/Speech Visit [facility] [address] [place] [address] Jojo Herring, DIRECTOR OF MEDICAL REVIEW [address] [place] [address] Dx: Multiple falls [R29.6]; Balance disorder [R26.89]; History of CVA (cerebrovascular accident) [Z86.73]; General weakness [R53.1] [facility] Comment on above: Dx: Multiple falls [R29.6]; Balance diso rder [R26.89]; History of CVA (cerebrovascular accident) [Z86.73]; General weakness [R53.1] Start: 01-18-2025 End: 01-18-2025 OT/PT/Speech Visit 01/18/2025 5:15 PM EDT OT/PT/Speech Visit [facility] [address] [place] [address] Steve Mane, PT [address] [facility] [place] [place] [address] Dx: Multiple falls [R29.6]; Balance disorder [R26.89]; History of CVA (cerebrovascular accident) [Z86.73]; General weakness [R53.1] [facility] Comment on above: Dx: Multiple falls [R29.6]; Balance diso rder [R26.89]; History of CVA (cerebrovascular accident) [Z86.73]; General weakness [R53.1] Start: 01-16-2025 End: 01-16-2025 OT/PT/Speech Visit 01/16/2025 2:45 PM EDT OT/PT/Speech Visit [facility] [address] [place] [address] Jojo Herring, DIRECTOR OF MEDICAL REVIEW [address] [place] [address] Dx: Multiple falls [R29.6]; Balance disorder [R26.89]; History of CVA (cerebrovascular accident) [Z86.73]; General weakness [R53.1] [facility] Comment on above: Dx: Multiple falls [R29.6]; Balance diso rder [R26.89]; History of CVA (cerebrovascular accident) [Z86.73]; General weakness [R53.1] Start: 01-16-2025 End: 01-16-2025 Patient encounter procedure Departed Physician/Provider Office Visit -[facility] Work Phone: Start: 01-11-2025 End: 01-11-2025 OT/PT/Speech Visit 01/11/2025 6:00 PM EDT OT/PT/Speech Visit [facility] [address] [place], [place] [phone] Steve Mane, PT [address] [place], [place] [phone] Dx: Multiple falls [R29.6]; Balance disorder [R26.89]; History of CVA (cerebrovascular accident) [Z86.73]; General weakness [R53.1] [facility] Comment on above: Dx: Multiple falls [R29.6]; Balance diso rder [R26.89]; History of CVA (cerebrovascular accident) [Z86.73]; General weakness [R53.1] Start: 01-09-2025 End: 01-09-2025 OT/PT/Speech Visit 01/09/2025 2:15 PM EDT OT/PT/Speech Visit [facility] [address], [place] [phone] Steve Mane, PT [address] [place], [place] [phone] Dx: Multiple falls [R29.6]; Balance disorder [R26.89]; History of CVA (cerebrovascular accident) [Z86.73]; General weakness [R53.1] [facility] Comment on above: Dx: Multiple falls [R29.6]; Balance diso rder [R26.89]; History of CVA (cerebrovascular accident) [Z86.73]; General weakness [R53.1] Start: 01-05-2025 End: 01-05-2025 Patient encounter procedure 01/05/2025 11:40 AM EDT Office Visit [facility] [address] [place], [place] [phone] Sarah Yang PA-C [address] [place], [place] [phone] Medicare wellness [facility] Comment on above: Medicare wellness Start: 01-02-2025 End: 01-02-2025 OT/PT/Speech Visit 01/02/2025 10:45 AM EDT OT/PT/Speech Visit [facility] [address] [place], [place] [phone] Steve Mane, PT [address] [place], [place] [phone] Dx: Multiple falls [R29.6]; Balance disorder [R26.89]; History of CVA (cerebrovascular accident) [Z86.73]; General weakness [R53.1] [facility] Comment on above: Dx: Multiple falls [R29.6]; Balance diso rder [R26.89]; History of CVA (cerebrovascular accident) [Z86.73]; General weakness [R53.1] Start: 12-29-2024 End: 12-29-2024 Patient encounter procedure 12/29/2024 9:40 AM EDT Office Visit [facility] [address] [place], [place] [phone] Lulu Staton APRN.[facility] [address] [place], [place] [phone] Rectal Bleeding. See triage. [facility] Comment on above: Rectal Bleeding. See triage. Start: 12-18-2024 Influenza vaccination Influenza Vaccine (#1) [facility] Start: 12-14-2024 End: 12-14-2024 Evaluation of diagnostic study results [facility] Start: 12-11-2024 End: 03-12-2025 Bacteria identified in Urine by Culture BACTERIAL CULTURE, URINE Microbiology Routine Urine frequency Expected: 12/11/2024, Expires: 03/12/2025 [facility] Comment on above: Expected: 12/11/2024, Expires: Start: 12-11-2024 End: 03-12-2025 CBC W Auto Differential panel - Blood [facility] Comment on above: Expected: 12/11/2024, Expires: Start: 12-11-2024 End: 03-12-2025 Comprehensive metabolic 2000 panel - Serum or Plasma [facility] Work Phone: Comment on above: Expected: 12/11/2024, Expires: Start: 12-11-2024 End: 12-11-2024 Patient encounter procedure 12/11/2024 2:00 PM EDT Office Visit [facility] [address] [place] [address] Rufino Erickson MD [address] [place] [phone] Falling a lot , frequent bathroom trips. [facility] Comment on above: Falling a lot , frequent bathroom trips. Start: 12-11-2024 End: 03-12-2025 Thyrotropin [Units/volume] in Serum or Plasma [facility] Comment on above: Expected: 12/11/2024, Expires: Start: 12-11-2024 End: 03-12-2025 Urinalysis complete panel - Urine URINALYSIS, WITH MICROSCOPIC Lab Routine Urine frequency Expected: 12/11/2024, Expires: 03/12/2025 [facility] Comment on above: Expected: 12/11/2024, Expires: Start: 12-07-2024 End: 12-07-2024 Evaluation of diagnostic study results [facility] Start: 11-24-2024 Anxiety Screening Anxiety Screening [facility] Start: 11-24-2024 Depression Screening Depression Screening [facility] Start: 11-24-2024 Medicare Annual Wellness Visit Medicare Annual Wellness Visit [facility] Start: 11-20-2024 DIABETES SCREEN DIABETES SCREEN [facility] Start: 11-02-2024 End: 11-18-2025 XR Ribs - left 2 Views XR RIBS 2V AP/OBL LEFT Radiology Routine Open fracture of one rib of left side with routine healing, subsequent encounter Expected: 11/02/2024, Expires: 11/18/2025 [facility] Work Phone: Comment on above: Expected: 11/02/2024, Expires: Start: 10-23-2024 End: 10-23-2024 [facility] Start: 10-23-2024 Bacteria identified in Blood by Culture Blood Culture [facility] Start: 10-23-2024 Bacteria identified in Urine by Culture Urine Culture [facility] Start: 10-23-2024 Blood culture Blood Culture [facility] Start: 10-19-2024 End: 10-19-2024 Patient encounter procedure 10/19/2024 10:40 AM EDT Office Visit [facility] [address] [place] [phone] Lulu Staton APRN.[facility] [address] [place], [place] [phone] urg care f/u [facility] Comment on above: urg care f/u Start: 08-01-2024 End: 08-01-2024 Patient encounter procedure 08/01/2024 11:20 AM EDT Office Visit [facility] [address] [place] [phone] Rufino Erickson MD [address] [place], [place] [phone] follow up on nursing home discharge [facility] Comment on above: follow up on nursing home discharge Start: 07-05-2024 End: 10-04-2024 CBC W Auto Differential panel - Blood [facility] Comment on above: Expected: 07/05/2024, Expires: Start: 07-05-2024 End: 10-04-2024 Comprehensive metabolic 2000 panel - Serum or Plasma [facility] Work Phone: Comment on above: Expected: 07/05/2024, Expires: Start: 07-05-2024 End: 10-04-2024 LIPID PANEL, NONFASTING [facility] Comment on above: Expected: 07/05/2024, Expires: Start: 05-30-2024 End: 05-30-2024 Patient encounter procedure 05/30/2024 11:00 AM EST Office [facility] [address] [place] [phone] Rufino Erickson MD [address] [place] [address] 6 month follow up [facility] Comment on above: 6 month follow up Start: 05-26-2024 End: 08-25-2024 Hemoglobin A1c in Blood HEMOGLOBIN A1C Lab Routine Elevated hemoglobin A1c Expected: 05/26/2024, Expires: 08/25/2024 [facility] Work Phone: Comment on above: Expected: 05/26/2024, Expires: Start: 05-19-2024 DIABETES SCREEN DIABETES SCREEN [facility] Start: 05-10-2024 End: 05-10-2024 Patient encounter procedure 05/10/2024 11:20 AM EST Office Visit [facility] [address] [place] [address] Rufino Erickson MD [address] [place], [place] [phone] Hospital DC follow-up [facility] Comment on above: Hospital DC follow-up Start: 04-19-2024 Advance Directive Discussion Advance Directive Discussion [facility] Start: 12-19-2023 Covid-19 Vaccine () Covid-19 Vaccine () [facility] Start: 12-19-2023 Covid-19 Vaccine ( season) Covid-19 Vaccine () [facility] Start: 12-19-2023 Influenza vaccination Influenza Vaccine (#1) [facility] Start: 11-25-2023 End: 11-25-2023 Patient encounter procedure 11/25/2023 11:00 AM EDT Office Visit Family [facility] [address] [place], [place] [phone] Lulu Staton, STOCK FEEDER.CYLINDER BLOCK MECHANIC [address] [place], [place] [phone] Extensive Medicare Wellness [facility] Comment on above: Extensive Medicare Wellness Start: 11-12-2023 End: 02-11-2024 CBC W Auto Differential panel - Blood CBC + DIFF Lab Routine Pseudothrombocytopenia Expected: 11/12/2023, Expires: 02/11/2024 [facility] Work Phone: Comment on above: Expected: 11/12/2023, Expires: Start: 11-12-2023 End: 02-11-2024 Comprehensive metabolic 2000 panel - Serum or Plasma COMP METABOLIC PANEL Lab Routine Hypertension, essential Expected: 11/12/2023, Expires: 02/11/2024 [facility] Work Phone: Comment on above: Expected: 11/12/2023, Expires: Start: 11-12-2023 End: 02-11-2024 Hemoglobin A1c in Blood HGB A1C Lab Routine Elevated hemoglobin A1c Expected: 11/12/2023, Expires: 02/11/2024 [facility] Work Phone: Comment on above: Expected: 11/12/2023, Expires: Start: 11-12-2023 End: 02-11-2024 LIPID PANEL, NONFASTING LIPID PANEL, NONFASTING Lab Routine Hypertension, essential Expected: 11/12/2023, Expires: 02/11/2024 [facility] Work Phone: Comment on above: Expected: 11/12/2023, Expires: 4 Start: 11-12-2023 End: 02-11-2024 Urinalysis complete panel - Urine URINALYSIS, WITH MICROSCOPIC Lab Routine Hypertension, essential Expected: 11/12/2023, Expires: 02/11/2024 [facility] Work Phone: Comment on above: Expected: 11/12/2023, Expires: Start: 04-19-2023 Advance Directive Discussion Advance Directive Discussion [facility] Start: 04-19-2023 Behavioral Health Screening Behavioral Health Screening [facility] Start: 03-22-2023 End: 04-06-2024 Radiologic exam chest 2 views XR CHEST 2V FRONTAL/LAT Radiology Routine Acute cough Expected: 03/22/2023, Expires: 04/06/2024 [facility] Work Phone: Comment on above: Expected: 03/22/2023, Expires: 4 Start: 12-18-2022 Covid-19 Vaccine (2022- season) Covid-19 Vaccine (2022- season) [facility] Start: 12-18-2022 Influenza vaccination [facility] Start: 11-24-2022 End: 01-24-2023 Bacteria identified in Urine by Culture [facility] Work Phone: Comment on above: Expected: 11/24/2022, Expires: 3 Start: 11-13-2022 End: 01-13-2023 CBC W Auto Differential panel - Blood CBC + DIFF Lab Routine Paroxysmal atrial fibrillation (HCC) Medication management Expected: 11/13/2022, Expires: 01/13/2023 [facility] Work Phone: Comment on above: Expected: 11/13/2022, Expires: 3 Start: 11-13-2022 End: 01-13-2023 Comprehensive metabolic 2000 panel - Serum or Plasma COMP METABOLIC PANEL Lab Routine Hypertension, essential Expected: 11/13/2022, Expires: 01/13/2023 [facility] Work Phone: Comment on above: Expected: 11/13/2022, Expires: 3 Start: 11-13-2022 End: 01-13-2023 Hemoglobin A1c in Blood HGB A1C Lab Routine Elevated hemoglobin A1c Expected: 11/13/2022, Expires: 01/13/2023 [facility] Work Phone: Comment on above: Expected: 11/13/2022, Expires: 3 Start: 11-13-2022 End: 01-13-2023 LIPID PANEL, NONFASTING LIPID PANEL, NONFASTING Lab Routine Hypertension, essential Expected: 11/13/2022, Expires: 01/13/2023 [facility] Work Phone: Comment on above: Expected: 11/13/2022, Expires: Start: 11-13-2022 End: 01-13-2023 Urinalysis complete panel - Urine URINALYSIS, WITH MICROSCOPIC Lab Routine Hypertension, essential Expected: 11/13/2022, Expires: 01/13/2023 [facility] Work Phone: Comment on above: Expected: 11/13/2022, Expires: 3 Start: 06-27-2022 COVID-19 VACCINE (5 - Pfizer series) COVID-19 VACCINE (5 - Pfizer series) [facility] Start: 04-19-2022 ADVANCE DIRECTIVE DISCUSSION ADVANCE DIRECTIVE DISCUSSION [facility] Start: 04-19-2022 DEPRESSION ASSESSMENT DEPRESSION ASSESSMENT [facility] Start: 01-31-2022 End: 02-14-2022 SARS-CoV-2 (COVID-19) RNA [Presence] in Respiratory specimen by LEYDA with probe detection 2019 CORONAVIRUS Microbiology Routine URI, acute Expected: 01/31/2022, Expires: 02/14/2022 [facility] Work Phone: Comment on above: Expected: 01/31/2022, Expires: 2 Start: 12-18-2021 Influenza vaccination INFLUENZA (#1) [facility] Start: 11-21-2021 End: 01-21-2022 Calcium [Mass/volume] in Serum or Plasma CALCIUM TOTAL BLD Lab Routine Hypercalcemia Expected: 11/21/2021, Expires: 01/21/2022 [facility] Work Phone: Comment on above: Expected: 11/21/2021, Expires: 2 Start: 11-21-2021 End: 01-21-2022 CBC W Auto Differential panel - Blood CBC + DIFF Lab Routine Thrombocytopenia (HCC) Expected: 11/21/2021, Expires: 01/21/2022 [facility] Work Phone: Comment on above: Expected: 11/21/2021, Expires: 2 Start: 11-21-2021 End: 01-21-2022 Parathyrin.intact [Mass/volume] in Serum or Plasma PTH INTACT BLD Lab Routine Hypercalcemia Expected: 11/21/2021, Expires: 01/21/2022 [facility] Work Phone: Comment on above: Expected: 11/21/2021, Expires: 2 Start: 11-21-2021 End: 01-21-2022 POTASSIUM BLD POTASSIUM BLD Lab Routine Hyperkalemia Expected: 11/21/2021, Expires: 01/21/2022 [facility] Work Phone: Comment on above: Expected: 11/21/2021, Expires: 2 Start: 06-08-2021 COVID-19 VACCINE (4 - Booster for Pfizer series) COVID-19 VACCINE (4 - Booster for Pfizer series) [facility] Start: 04-19-2021 ADVANCE DIRECTIVE DISCUSSION ADVANCE DIRECTIVE DISCUSSION [facility] Start: 04-19-2021 DEPRESSION ASSESSMENT DEPRESSION ASSESSMENT [facility] Start: 04-02-2021 COVID-19 VACCINE (4 - Booster for Pfizer series) COVID-19 VACCINE (4 - Booster for Pfizer series) [facility] Start: 2010 RSV Vaccine (1 - 1-dose 75+ series) RSV Vaccine (1 - 1-dose 75+ series) [facility] Start: 2000 PNEUMOCOCCAL: 65+ (1 - PCV) PNEUMOCOCCAL: 65+ (1 - PCV) [facility] Start: 1995 RSV Vaccine (1 - 1-dose 60+ series) RSV Vaccine (1 - 1-dose 60+ series) [facility] Start: 1985 SHINGRIX VACCINE (1 of 2) SHINGRIX VACCINE (1 of 2) [facility] Start: 1953 Anxiety Screening Anxiety Screening [facility] Start: 1953 Depression Screening Depression Screening [facility] Cardiac event recording [facility] COVID & INFLUENZA A/ B & RSV NAAT, ROUTINE COVID & INFLUENZA A/B & RSV NAAT, ROUTINE Microbiology Routine Acute cough 02/12/2023 11:20 AM EDT [facility] Work Phone: COVID & INFLUENZA A/ B & RSV PCR, ROUTINE COVID & INFLUENZA A/B & RSV PCR, ROUTINE Microbiology Routine Flu-like symptoms Acute upper respiratory infection, unspecified Ordered: 07/12/2024 [facility] Work Phone: Comment on above: Ordered: 07/12/2024 Glucose [Mass/volume ] in Serum or Plasma [facility] OCCULT BLD EXAM-DIAG OCCULT BLD EXAM-DIAG Microbiology Routine Black tarry stools Ordered: 12/29/2024 [facility] Work Phone: Comment on above: Ordered: 12/29/2024 Patient Education [facility] Work Phone: End: 12-24-2023 Radex spine lumbosacral 2/3 views XR LUMBAR GENERAL 3V AP/LAT/L5-S1 Radiology Routine 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 1 Occurrences starting 11/24/2022 until 12/24/2023 [facility] Work Phone: Comment on above: 1 Occurrences starting 11/24/2022 until 12/24/2023 Radex spine lumbosacral 2/3 views XR LUMBAR GENERAL 3V AP/LAT/L5-S1 Radiology Routine 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 11/24/2022 2:23 PM EDT [facility] Work Phone: End: 10-21-2022 Radiologic exam chest 2 views XR CHEST 2V FRONTAL/LAT Radiology STAT Cough 1 Occurrences starting 09/21/2021 until 10/21/2022 [facility] Work Phone: Comment on above: 1 Occurrences starting 09/21/2021 until 10/21/2022 Removal impacted cerumen irrigation/lvg unilat AMBULATORY EAR LAVAGE/IRRIGATION Procedures Routine Impacted cerumen of right ear Ordered: 05/27/2023 [facility] Work Phone: Comment on above: Ordered: 05/27/2023 ROUTINE FLU A/B + RSV ROUTINE FL U A/B + RSV Lab Routine Acute cough 02/12/2023 11:20 AM EDT [facility] Work Phone: SARS-CoV-2 (COVID-19 ) RNA [Presence] in Respiratory specimen by LEYDA with probe detection COVID NAAT, UPPER RESPIRATORY, ROUTINE Microbiology Routine Acute cough 02/12/2023 11:20 AM EDT [facility] Work Phone: End: 08-25-2024 SPIROMETRY - BASELINE AND POST DILATOR SPIROMETRY - BASELINE AND POST DILATOR PFT Routine Chronic cough 1 Occurrences starting 07/27/2023 until 08/25/2024 [facility] Work Phone: Comment on above: 1 Occurrences starting 07/27/2023 until 08/25/2024 Urine culture [facility] XR Ribs - left 2 Views XR RIBS 2V AP/OBL LEFT Radiology Routine Open fracture of one rib of left side with routine healing, subsequent encounter 11/03/2024 10:48 AM EDT [facility] Work Phone: [facility] Immunizations Immunization Date Immunization Notes Care Provider [facility] 04-19-2024 influenza, high dose seasonal, preservative-free Dr. Rufino Erickson MD Work Phone: [facility] 04-19-2024 influenza virus vaccine, unspecified formulation Lulu Staton APRN.CNP Work Phone: [facility] 05-27-2023 influenza (HD-IIV4) vaccine, age 65+ yr, high dose, quadrivalent, PF (FLUZONE HIGH-DOSE) Rufino Erickson MD Work Phone: [facility] 05-27-2023 influenza virus vaccine, unspecified formulation Sarah Yang PA-C Work Phone: [facility] 02-27-2022 Covid Pfizer Bivalen t Booster Dr. Rufino Erickson MD Work Phone: [facility] 01-26-2022 influenza, high-dose , quadrivalent vaccine (FLUZONE HIGH DOSE QUADRIVALENT) Shady Smiley MD Work Phone: [facility] 01-26-2022 pneumococcal (PCV20) vaccine, 20 valent (PREVNAR 20) Shady Smiley MD Work Phone: [facility] 01-26-2022 influenza virus vaccine, unspecified formulation Ulices Moya APRN.CYLINDER BLOCK MECHANIC Work Phone: [facility] 05-19-2021 influenza, high-dose , quadrivalent vaccine (FLUZONE HIGH DOSE QUADRIVALENT) Kiera Benson APRN.CYLINDER BLOCK MECHANIC Work Phone: [facility] 02-05-2021 Covid (Pfizer) Dr. Rufino nelson MD Work Phone: [facility] 06-07-2020 COVID-19 vaccine, ag e 12+ yr (PFIZER-BIONTECH - PURPLE TOP) Kiera Benson STOCK FEEDER.CYLINDER BLOCK MECHANIC Work Phone: [facility] Work Phone: 05-17-2020 COVID-19 vaccine, ag e 12+ yr (PFIZER-BIONTECH - PURPLE TOP) Kiera Benson STOCK FEEDER.CYLINDER BLOCK MECHANIC Work Phone: [facility] 02-27-2020 influenza, high dose seasonal, preservative-free Kiera Benson APRN.CYLINDER BLOCK MECHANIC Work Phone: [facility] Payers Date Payer Category Payer Self-pay 2016 Medicare [id number] 2015 Private Health Insurance HUMANA HUMANA MEDICARE SUPPLEMENT [id number] 2015-Present [phone] [address] [address] [place] [address] Indemnity [id number] 2015 Private Health Insurance [id number] .[id number] 2015 Private Health Insurance [id number] 2000 Medicare MEDICARE MEDICAR E A AND B [id number] 2000-Present [phone] [address] [address] [place] [address] Medicare [id number] .[id number] 2000 Medicare [id number] [id number] .[id number] 2000 Medicare [id number] Unknown [id number] 2.16.840.1.817158.3.579 .2.462 Unknown [id number] 2.16.840.1.125094.3.579 .2.462 Unknown [id number] 2.16.840.1.235916.3.579 .2.462 Unknown [id number] 2.16.840.1.701007.3.579 .2.462 Unknown [id number] 2.16.840.1.965868.3.579 .2.462 Unknown [id number] 2.16.840.1.381802.3.579 .2.462 Unknown [id number] 2.16.840.1.795552.3.579 .2.462 Unknown [id number] 2.16.840.1.600846.3.579 .2.462 Unknown [id number] 2.16.840.1.254340.3.579 .2.462 Unknown [id number] 2.16.840.1.836569.3.579 .2.462 Unknown [id number] 2.16.840.1.278287.3.579 .2.462 Unknown [id number] 2.16.840.1.392855.3.579 .2.462 Unknown [id number] 2.16.840.1.473727.3.579 .2.462 Unknown [id number] 2.16840.1.340220.3.579 .2.462 Unknown [id number] 2.16.840.1.712807.3.579 .2.462 Unknown [id number] 2.840.1.696378.3.579 .2.462 Unknown [id number] 2.840.1.416267.3.579 .2.462 Unknown [id number] 2.840.1.047460.3.579 .2.462 Unknown [id number] 2.840.1.718836.3.579 .2.462 Unknown [id number] 2.840.1.314454.3.579 .2.462 Unknown [id number] 2.840.1.617771.3.579 .2.462 Unknown [id number] 2.840.1.178255.3.579 .2.462 Unknown [id number] 2.840.1.471260.3.579 .2.462 Unknown [id number] 2.840.1.340679.3.579 .2.462 Unknown [id number] 2.840.1.034379.3.579 .2.462 Unknown [id number] 2.840.1.921186.3.579 .2.462 Unknown [id number] 2.840.1.662007.3.579 .2.462 Unknown [id number] 2.840.1.237575.3.579 .2.462 Unknown [id number] 2.16.840.1.344046.3.579 .2.462 Unknown [id number] 2.16.840.1.002219.3.579 .2.462 Unknown [id number] 2.16.840.1.001818.3.579 .2.462 Unknown [id number] 2.16.840.1.048303.3.579 .2.462 Unknown [id number] 2.16.840.1.992948.3.579 .2.462 Unknown [id number] 2.16.840.1.675559.3.579 .2.462 Unknown [id number] 2.16.840.1.108142.3.579 .2.462 Unknown [id number] 2.16.840.1.391856.3.579 .2.462 Unknown [id number] 2.16.840.1.677447.3.579 .2.462 Unknown [id number] 2.16.840.1.792248.3.579 .2.462 Unknown [id number] 2.16.840.1.821965.3.579 .2.462 Unknown [id number] 2.16.840.1.160514.3.579 .2.462 Unknown [id number] 2.16.840.1.234454.3.579 .2.462 Social History Date Type Detail Facility Start: 04-26-2012 End: 01-11-2025 Tobacco smoking status OKIS Never smoked tobacco [facility] Start: 04-26-2012 End: 01-26-2022 Tobacco use and exposure Smokeless tobacco non-user [facility] Start: 09-21-2021 End: 12-11-2024 Alcohol intake Current non-drinker of alcohol (finding) [facility] Start: 09-19-2020 History SDOH Alcohol Frequency 1 [facility] Start: 09-19-2020 History SDOH Alcohol Std Drinks 98 [facility] Start: 09-19-2020 History SDOH Social Connections Phone 5 [facility] Start: 09-19-2020 History SDOH Social Connections Adventism 3 [facility] Start: 09-19-2020 History SDOH Social Connections Living 4 [facility] Start: 09-19-2020 History SDOH Physica l Activity MPS 2 [facility] Start: 09-18-2020 Education 12 [facility] Start: 1935 Sex Assigned At Not on file C [facility] Start: 10-22-2020 End: 01-31-2022 Exposure to SARS-CoV-2 (event) Not sure [facility] Work Phone: Start: 09-18-2020 End: 11-24-2022 History of Social function [facility] Start: 09-18-2020 End: 11-24-2022 Social connection and isolation panel [facility] Do you belong to any clubs or organizations such as episcopalian groups, unions, fraternal or athletic groups, or school groups? Yes [facility] Are you now , , , , never or living with a partner? [facility] How often to you hav e a drink containing alcohol? Never [facility] Start: 03-20-[address] inks containing alcohol do you have on a typical day? Patient refused [facility] Do you feel stress - tense, restless, nervous, or anxious, or unable to sleep at night because your mind is troubled all the time - these days [OSQ] To some extent [facility] (I/We) worried wheth er (my/our) food would run out before (I/we) got money to buy more. Never true [facility] In the past 12 month s, was there a time when you were not able to pay the mortgage or rent on time? No [facility] Do you feel stress - tense, restless, nervous, or anxious, or unable to sleep at night because your mind is troubled all the time - these days [OSQ] Only a little [facility] Start: 06-13-2024 Tobacco Use Tobacco Use [facility] Start: 1935 Sex Assigned At Female W [facility] Medical Equipment Procedure Code Equipment Code Equipment Origin al Text Equipment Identifier Dates Cement Simplex P Bone Radiopaque Full Dose Sterile - [id number] Start: 11-19-2017 Insert Triathlon 3 X3 11mm Tibial Cruciate Retaining Knee - [id number] Start: 11-19-2017 Component Triath shailesh 2 Femoral Cruciate Retain Cemented Knee Left - [id number] Start: 11-19-2017 Component Triath shailesh 29mm Asymmetric X3 9mm Patellar Total Knee - [id number] Start: 11-19-2017 Baseplate Triath shailesh 3 Tibial Primary Cement Knee - [id number] Start: 11-19-2017 Functional Status Date Assessment Result Facility 12-29-2024 Total score [AUDIT-C] 0 12/30/19 2:06 PM EDT User, Laurashanellt [facility] 12-29-2024 How often do you hav e a drink containing alcohol? Never 12/29/2024 2:06 PM EDT User, Mychart Never [facility] 12-29-2024 Functional status Patient does n ot drink 12/29/2024 2:06 PM EDT User, Laurashanellt Patient does not drink [facility] 12-29-2024 How often do you hav e 6 or more drinks on 1 occasion? Never 12/29/2024 2:06 PM EDT User, Mychart Never [facility] 12-11-2024 Total score [AUDIT-C] 0 12/12/19 1:54 PM EDT Cecelia Raymond MA [facility] 11-22-2017 Are you deaf, or do you have serious difficulty hearing No 11/22/2017 11:51 AM German Cooley RN No [facility] 11-22-2017 Are you blind, or do you have serious difficulty seeing, even when wearing glasses No 11/22/2017 11:51 AM German Cooley RN No [facility] 11-22-2017 Do you have serious difficulty walking or climbing stairs Yes 11/22/2017 11:51 AM German Cooley RN Yes [facility] 11-22-2017 Do you have difficul ty dressing or bathing Yes 11/22/2017 11:51 AM German Cooley, XOCHITL Yes [facility] 11-22-2017 Because of a physica l, mental, or emotional condition, do you have difficulty doing errands alone such as visiting a physician's office or shopping Yes 11/22/2017 11:51 AM EDT German Davies RN Yes [facility] Mental Status Date Assessment Result Facility 10-23-2024 Cognitive function Level Of Cons ciousness Awake;Alert;Appropriate;Fol lows Commands [facility] Work Phone: 11-22-2017 Because of a physica l, mental, or emotional condition, do you have serious difficulty concentrating, remembering, or making decisions Yes 11/22/2017 11:51 AM EDT German Davies RN Yes [facility] Clinical Notes 11-24-2017 to 01-11-2025 Steve Mane, PT - 01/02/2025 11:35 AM EDTCSteve dutta PT - 01/02/2025 10:42 AM EDTTelephone Encounter - Cecelia Raymond MA - 01/01/2025 4:30 PM EDTPatient Instructions Note Date & Type Note Facility 01-11-2025 Note HNO ID: [id number] Author: STEVE MANE PT Service: ? Author Type: Physical Therapist Type: Progress Notes Filed: 01/11/2025 17:27 Note Text: 01/11/25 Patient arrived in a W/C with her son Espinoza. PT and Patient/Son had a conversation in the lobby before beginning the session. Son reports patient is not doing well overall. States following last visit, she declined that night and could hardly walk/transfer. She required x2 assist from both of her sons. She also had a fall to the ground because both knees gave out on her. PT and Son mutually decided it was best for the patient to recover this date AND over the weekend and try again next week. Son to reach out to PT if they need anything. Patient left without being seen. Clinic no charge this date. Steve Mane, PT, DPT. 5:13p.m. - 5:23p.m. [facility] 01-11-2025 Note HNO ID: [id number] Author: CECELIA RAYMOND MA Service: ? Author Type: Community Nutrition Educator Type: Progress Notes Filed: 01/11/2025 14:23 Note Text: Scan on 01/11/2025 12:20 PM by Provider, External, PACamilaC: Markoseva Nicole Daniela Downey [facility] 01-11-[address] [facility] 01-09-2025 Note HNO ID: [id number] Author: STEVE MANE PT Service: ? Author Type: Physical Therapist Type: Progress Notes Filed: 01/10/2025 06:50 Note Text: Episode Visit Count: 2 Therapist That Will Accept/Oversee The Plan Of Care: Steve Mane PT. Start of Care Date: 01/02/25 Onset Date: 01/03/24 Plan of Care Certification Date: 01/02/25 Next Certification Due Date: 02/23/25 REHABILITATION AND SPORTS THERAPY PHYSICAL THERAPY TREATMENT NOTE ASSESSMENT: Krystyna Khanna tolerated the session with fatigue. She demonstrated difficulty with ambulation on FWW further than 15 feet due to leg fatigue and strength. The patient will continue to benefit from ongoing skilled physical therapy to progress toward set goals. PLAN FOR NEXT VISIT: Sci-Fit for CARLISLE; continued gait training and pushing endurance; gross leg strength. SUBJECTIVE: Patient brings her FWW in, slightly shorter than PT would like. STates overly tired due to not sleeping very good lately. Semi-compliant with HEP. No new falls. Espinoza son arrives with her. Pain: Pain Pain Level: 0 OBJECTIVE MEASURES WITH LEVEL OF FUNCTION: Consistent cues for slow AND controlled reps during exercises. TREATMENT: Therapeutic Exercise: 1: *Discontinued banded hip abd due to patient not liking the exercise. 2: *Seated Heel AND Toe Raises: 1x15 ea. No alternating. 3: Seated Alt. March: 2x10 ea. 4: Seated LAQ: 2x15 ea. 3#. 5: Seated Hip ADD Ball Squeeze: 2x10, 5-sec. 6: Hyu-dx-kivby from rodriges table, with use of 1 hand: 2x8. 7: Education on momentum for STS and scooting buttocks forward on table so she is not to deep on surface to stand from. 8: Rediscussed sizing of FWW; discussed purchasing back sliders/tennis balls for back legs for ease of turning (the stick to the ground when backing up). Skilled Intervention: Patient was educated in proper exercise technique and purpose for exercises. Skilled judgment was used in selection of appropriate interventions. Correct performance of therapeutic exercises was facilitated with verbal cuing. Patient education as noted. Billing Therapeutic Exercise Treatment Minutes: 40 Skilled Treatment Time Minutes (timed and untimed codes): 40 Total Session Time (minutes): 40 Session Start Time : 1415 Session Stop Time : 1455 Steve Mane PT [facility] 01-05-2025 Note HNO ID: [id number] Author: SARAH YANG PA-C Service: ? Author Type: Physician Application Development Intern Type: Progress Notes Filed: 01/05/2025 12:49 Note Text: Krystyna Khanna is a 89 year old female here for a Medicare wellness visit. Medicare Health Risk Assessment General Health Fair Exercise: Minutes/Day 0 min Exercise: Days/Week 0 days Alcohol: Daily Use Never Alcohol: Drinks/Day Patient does not drink Alcohol: 6 or more drinks Never Feel off balance Yes Concerns: Teeth/Dentures No Concerns: Sexual function No Troubled by feelings None of the above Frequency: Eating healthy diet Several days ADLs requiring help Grocery shopping; Cooking; Housework; Bathing; Sitting or standing; Walking; Managing urine leakage; Handling finances; Taking medications Safety precautions in home/vehicle Yes Smoke, vape, chews tobacco No Difficulty hearing Yes, I wear a hearing aid Difficulty seeing No Current Providers Specialists: I have reviewed specialist-related care of the patient in the medical record. Medical/Family history review Reviewed and updated problem list, medical/surgical/family/social history, medications, and allergies. Opioid use review Opioid Medications (last 90 days) No data to display Anxiety/Depression screening PHQ-9 Score: 10 (Moderate Depression) JOANN-7 Score: 7 (Mild Anxiety) Recommendation: no further intervention at this time and continuing current treatment plan Cognitive screening Cognitive screening reviewed and Patient has known cognitive impairment. Functional Observation Was the patient's Timed Up AND Go test unsteady or >= 12 seconds? Yes Advance Care Planning Surrogate decision maker and/or advance care plan documented Measurements BP 106/72 (BP Site: Left Arm, BP Position: Sitting, BP Cuff Size: Large Adult) Pulse 72 Temp 37.2 ?C (99 ?F) Resp 16 Wt 66.7 kg (147 lb) SpO2 96% BMI 30.69 kg/m? Vision Screening: Follows with optometry/ophthalmology Assessment/Plan Medicare annual wellness visit, subsequent (Z00.00) - Counseled on healthy diet and regular exercise - Fall avoidance information provided - Personalized prevention plan provided Chief Complaint Patient presents with: Medicare Wellness Exam HPI Krystyna Khanna is a 89 year old female who presents here today for extensive exam. 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 Extensive Exam: - [id number] present, providing additional history. - Recent weight fluctuations: 147 lbs in October, increased to 153 lbs, now back to 147 lbs. - Reports pruritus, especially at night, primarily on the arms. has improved some - Krystyna denies flu vaccination; prefers to wait until January. Melena: - Reports melena, initially very dark but now less so. - Scheduled to see Dr. Gardner next week for evaluation. - No new bruising or epistaxis. Cough: - Persistent cough with phlegm production for at least three weeks. - Recent chest X-ray was normal. - Uses a significant amount of tissues daily due to cough. Nocturia: - Experiences frequent nocturia, requiring the use of a double pad. - Has a urology consult scheduled in two weeks. Insomnia: - Takes 25 mg of a 50 mg trazodone tablet at bedtime PRN for sleep. - Reports that the medication helps but does not last long. - Taking a full 50 mg tablet causes morning drowsiness. Anxiety and Depression: - Reports stable anxiety and depression. - Expresses discomfort with dependence on her children for care. Past medical history, appointments, medications, allergies reviewed. 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 11/30/2022 Dementia without behavioral disturbance (HCC) 05/30/2024 Elevated hemoglobin A1c 11/08/2017 Encounter for Medicare annual wellness exam 09/25/2020 Medical B eligibilty date 02/18/2000 Date of last exam 10/25/2020 Hepatitis thinks B History of congestive heart failure History of CVA (cerebrovascular accident) 04/23/2024 04/19/2024: Rt frontoparietal, Lt parietal History of heart attack Hypertension, essential 11/08/2017 Left hemiparesis (HCC) 05/30/2024 Obesity, Class II, BMI 35-39.9 11/08/2017 Osteoarthritis Osteopenia, senile 09/25/2020 Primary insomnia 12/11/2024 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 No further w/u needed and ok to stay on Xarelto RBBB 09/27/2024 Vitreous hemorrhage, right eye (HCC) 09/27/2024 Previous Surgical History PAST SURGICAL HISTORY Procedure Laterality Date 2D ECHO (EXEP) 10/28/2020 EF=60%, 1+ TImod alvarez dysf ARTHRP KNE CONDYLEANDPLATU MEDIALANDLAT COMPARTMENTS Left 08 (more content not included)... [facility] 01-02-2025 History of Presen t illness Narrative Program_ID:[id number] Access Code: [email or web address] URL: [email or web address] Date: 01-02-2025 Prepared By: Steve Mane Program Notes Exercises - Seated Hip Adduction Isometrics with Ball - 2 x daily - 7 x weekly - 2 sets - 10-12 reps - Seated Hip Abduction with Resistance - 2 x daily - 7 x weekly - 2 sets - 10-12 reps - Seated March - 2 x daily - 7 x weekly - 2 sets - 10-12 reps - Seated Long Arc Quad - 2 x daily - 7 x weekly - 2 sets - 10-12 reps - Sit to Stand with Counter Support - 2 x daily - 7 x weekly - 2 sets - 10 reps Images from the original note were not included. Episode Visit Count: 1 Therapist That Will Accept/Oversee The Plan Of Care: Steve Mane PT. Start of Care Date: 01/02/25 Onset Date: 11/30/21 Plan of Care Certification Date: 01/02/25 Next Certification Due Date: 02/23/25 Patient Identified by Name and Date of : Yes REHABILITATION AND SPORTS THERAPY PHYSICAL THERAPY EVALUATION PLAN OF CARE: Assessment: Krystyna Khanna presents with chief complaint of weakness, deconditioning/debility, ambulation + transfer deficits as well as past falls that interferes with rising from a chair, walking, stair negotiation, physical activities . The patient presents with impairments in ADL's, balance, gait, independence in exercise, overall function, strength, symptom management, and functional performance testing indicates at risk for falls. PROMIS (Patient-Reported Outcomes Measurement Information System) scores were reviewed and identified as a rehabilitation concern. Prognosis for therapy is Fair due to: clinical presentation, advanced age, chronic nature of impairments, Prognosis may be improved by positive past response to therapy, within-session changes, good support system/ coping skills. The patient will benefit from skilled therapy services to meet the goals established for this plan of care as noted below. Assessment Fall Risk : Complex at risk Goals for Episode of Care: established 01/02/25 [place] in home exercise program. Patient will report no falls. Improve score on Timed Up and Go Test to <22.5 seconds to reflect decreased fall risk. Improve score on 5xSTS test to 13 sec to reflect decreased fall risk. Patient will be able to transfer from a lower chair independently without the use of her hands in order to demonstrate improved functional strength and transfer ability. Patient will increase balance (4-stage balance test) to allow patient to demonstrate appropriate balance strategies to reduce risk for falls. Normal gait with her FWW, with proper sizing and navigation. Patient Goals: More strength in legs and mobility for indep. movement/transfers. Time Frame for Goals and Treatment : 02/23/25 Planned Interventions, Frequency, and Duration: Current Frequency: 2x/week Duration: 5 weeks Total Number of Visits Planned: 10 Planned Treatment Interventions: Therapeutic exercise (67831), Neuromuscular re-education (66708), Manual therapy (12480), Therapeutic activities (84364), Self-nursing home management (32040), Patient/Family/Caregiver Education, General Conditioning, Gait Training (94116) PLAN FOR NEXT VISIT: Assess adherance to HEP; size patients FWW if she brings it in; balance, gait & Gross LE Functional Strength. Patient demonstrates good understanding of plan of care and treatment. The above goals and plan of care were discussed and agreed upon by patient/family. SUBJECTIVE: Son Espinoza arrives with patient and helps provide history. Patient here for weakness and fall history. Son states she is very weak and cannot get around good. Previous CVA affecting L Side (Mar 2025). Used a cane up until stroke. FWW in the house, W/C for community and appts. Son states she uses the restroom a lot so she needs to move and use FWW better. [facility] doing [facility] with [facility] (3x a week), came home with HHPT in June 2024 and completed HHPT for about 1 month. Son states patient did not keep up with exercises. She currently goes to [facility] Mon & Wed, not exercising often. Son states 6 falls in the past year, 2 back to back days in end of November. Off High BP meds now due to recent Hypotension. Patient Goals: More strength in legs and mobility for indep. movement/transfers. Functional Limitations: rising from a chair, walking, stair negotiation, physical activities Prior Level of Function: Independent without limitations Relevant History Past Relevant Medical Conditions: Cardiac, Atrial Fibrillation, Cerebral Vascular Accident, Hypertension (CVA, with residual weakness on the affected side (left); Osteoporosis.) Past Relevant Surgical Conditions: Total Knee Replacement-Right, Total Knee Replacement-Left Employment: Retired Recreation / Current Exercise: None Home Environment Patient Lives With: Family (Son) Assistance Available: PRN Home Type: Apt/Condo Entry To Home: Stairs, Without Rail Number Of Stairs Into Home: 2 (Handrail, son helps.) Number Of Stairs To Bed/Bath: 0 Tub/Shower Type: Combo; Dtr in law assist. Equipment Owned: Cane, Walker- Wheeled, Wheelchair- Manual Intake Information: Prescription present Previous Treatment: None Falls Interview: Two or more falls in the last year Falls Intervention: More thorough falls assessment to be performed Falls History # of falls in past year: 6 # of falls resulting in an injury in past year: 0 Pain: Pain Pain Level: 0 PROMIS Scales 12/29/2024 11/29/2022 02/13/2020 Higher is Better Phys Func - T Score 26 (severe dysfunction) 29 (severe dysfunction) Phys Func - Percentile 1 2 Self-Eff Symptom - T Score 34 (Low) 38 (Low) Self-Eff Symptom - Percentile 5 12 Cognitve Function - T Score 45 (mild dysfunction) 11/29/2022 Lower is Better Pain Interference - T Score 62 (moderate) Pain Interference - Percentile 12 T-Score and Percentile Interpretation T-scores: mean of general population = 50. 5 points is clinically meaningfully difference Percentiles provide an indication of how the patient's score ranks in relation to the general population. Higher percentile rankings indicate better function/quality of life. 50th percentile is the average of the general population and indicates half of respondents had a worse score. OBJECTIVE MEASURES WITH LEVEL OF FUNCTION: Posture / Alignment Posture: Forward head, Rounded shoulders, Increased thoracic kyphosis LE Strength R LE Strength: Grossly 4/5 L LE Strength: Grossly 4/5. Deficits in some proximal muscles listed below subsequent from past CVA affecting the L Side. L Hip Flexion (L2): 3+/5 L Hip ABduction: 3+/5 L Hip Internal Rotation: 3+/5 L Hip External Rotation: 3+/5 L Knee Extension (L3): 3+/5 Mobility Supine To Sit: Modified Independent Sit to Supine: Independent Sit To Stand: Supervision (Use of B Hands) Stand To Sit: Supervision (Use of B Hands.) Gait Weight Bearing Status: FWB Gait: Independent Gait Device: None Gait Deviations: General Deviations General Deviations/Observations: Scarlet decreased, Difficulty changing direction/turning, Flexed trunk posture, Narrow Base of Support, Non-functional gait speed, Improper distancing from assistive device Stairs: Not Assessed. Functional Performance Test Results Assistive Device: Cane, None 30 Second Chair Stand Test: 9 reps (Use of B Hands from Chair) 5 Times Sit to Stand Test : 16.75 sec (Use of B Hands from Chair) Timed Up and Go (sec): 27.92 sec 4 Stage Balance Test Narrow base of support (sec): 5 sec Semi-tandem base of support (sec): 0 sec Tandem base of support (sec): 0 sec Single leg stance - right (sec): 0 sec Single leg stance - left (sec): 0 sec Vitals BP: 108/68 Pulse: 78 SpO2: 92 % Additional Vitals: Yes Post Assessment: Heart Rate Post, SpO2 Post, BP Post Post Heart Rate: 80 Post BP: 110/70 Post BP Position: Sitting Post SpO2: 92 Education: Education Learning Preferences: Demonstration, Explanation, Printed Materials Barriers: None Learning/educational needs: Home exercise program, Safety, Plan of Care, Health promotion, Gait Training, Body Mechanics, Crutch Training, Lifestyle changes Education Provided: Yes, see treatment interventions for education provided Education Provided To: Patient Education Mode/Type: Demonstration, Explanation/Discussion, Literature/Printed Materials Response to Education/Teach Back: States/Identifies, Requires Review/Additional Education TREATMENT: PT Treatment Interventions: Therapeutic Exercise, Self-Longterm Management, Gait Training Evaluation Therapeutic Exercise: 1: Reviewed HEP Exercises. PT provided demonstration and cueing of exercises for proper completion. Pt will need to be continued montinored for proper performance and adherance. 2: Discussed therapy goals, exercise purpose, HEP handout provided. Discussed exam findings, POC, and rehab process. 3: *Seated Alt. March: 1x10 ea. 4: *Seated LAQ: 1x12 5: *Seated Hip ADD Ball Squeeze: 1x10, 5-sec. 6: *Seated Hip ABD, GTB: 1x10, 5-sec. 7: *Seated STS in front of counter: x10. 8: Discussed why balance exercises are not to be completed at home. Skilled Intervention: Patient was educated in proper exercise technique and purpose for exercises. Reviewed and educated patient on additions/changes for home exercise program as above (*). Skilled judgment was used in selection of appropriate interventions. Correct performance of therapeutic exercises was facilitated with verbal and tactile cuing. Patient education as noted. Gait Trainin: Educated on proper AD device usage of a FWW based on exam findings. Discussed PT's rationale for patient needing to use an AD. 2: Education on proper & safe navigation and turning with the FWW, discussed feet position. 3: Proper sizing of the FWW, educated patient/son how to do this with their walker at home as they did not bring it this date. Skilled Intervention: Patient was provided supervision during pre-gait/gait training to prevent falls and insure safety. Gait belt utilized during session for safety. Skilled judgment used to assess selection, proper sizing, and proper use of assistive device. Self-Longterm Management: 1: Educated on transfers with hands with two point of contact and not both hands on her FWW. 2: Educated on slowed scarlet and how this is a risk for falls & safety issue. 3: Discussed home environment setup and home to decrease fall risk within the home. 4: Discussed how some of the things reached for to assist with instability may not always be sturdy and this can lead to falls. Skilled Intervention: Skilled judgment in the selection of proper modification for activity of daily living/home management based on clinical presentation, deficits, and needs. Billing * Evaluation Low Complexity: 1 Unit Therapeutic Exercise Treatment Minutes: 15 Self-Care/Home Management Treatment Minutes: 15 Gait Training Treatment Minutes: 10 Skilled Treatment Time Minutes (timed and untimed codes): 60 Total Session Time (minutes): 60 Session Start Time : 1044 Session Stop Time : 1144 Steve Mane PT documented in this encounter [facility] 01-02-2025 Note HNO ID: [id number] Author: STEVE MANE PT Service: ? Author Type: Physical Therapist Type: Progress Notes Filed: 01/02/2025 13:21 Note Text: Episode Visit Count: 1 Therapist That Will Accept/Oversee The Plan Of Care: Steve Mane PT. Start of Care Date: 01/02/25 Onset Date: 11/30/21 Plan of Care Certification Date: 01/02/25 Next Certification Due Date: 02/23/25 Patient Identified by Name and Date of : Yes REHABILITATION AND SPORTS THERAPY PHYSICAL THERAPY EVALUATION PLAN OF CARE: Assessment: Krystyna Khanna presents with chief complaint of weakness, deconditioning/debility, ambulation + transfer deficits as well as past falls that interferes with rising from a chair, walking, stair negotiation, physical activities . The patient presents with impairments in ADL's, balance, gait, independence in exercise, overall function, strength, symptom management, and functional performance testing indicates at risk for falls. PROMIS? (Patient-Reported Outcomes Measurement Information System) scores were reviewed and identified as a rehabilitation concern. Prognosis for therapy is Fair due to: clinical presentation, advanced age, chronic nature of impairments, Prognosis may be improved by positive past response to therapy, within-session changes, good support system/ coping skills. The patient will benefit from skilled therapy services to meet the goals established for this plan of care as noted below. Assessment Fall Risk : Complex at risk Goals for Episode of Care: established 01/02/25 [place] in home exercise program. Patient will report no falls. Improve score on Timed Up and Go Test to <22.5 seconds to reflect decreased fall risk. Improve score on 5xSTS test to 13 sec to reflect decreased fall risk. Patient will be able to transfer from a lower chair independently without the use of her hands in order to demonstrate improved functional strength and transfer ability. Patient will increase balance (4-stage balance test) to allow patient to demonstrate appropriate balance strategies to reduce risk for falls. Normal gait with her FWW, with proper sizing and navigation. Patient Goals: More strength in legs and mobility for indep. movement/transfers. Time Frame for Goals and Treatment : 02/23/25 Planned Interventions, Frequency, and Duration: Current Frequency: 2x/week Duration: 5 weeks Total Number of Visits Planned: 10 Planned Treatment Interventions: Therapeutic exercise (40069), Neuromuscular re-education (67170), Manual therapy (21769), Therapeutic activities (24757), Self-nursing home management (22137), Patient/Family/Caregiver Education, General Conditioning, Gait Training (11589) PLAN FOR NEXT VISIT: Assess adherance to HEP; size patients FWW if she brings it in; balance, gait AND Gross LE Functional Strength. Patient demonstrates good understanding of plan of care and treatment. The above goals and plan of care were discussed and agreed upon by patient/family. SUBJECTIVE: Son Espinoza arrives with patient and helps provide history. Patient here for weakness and fall history. Son states she is very weak and cannot get around good. Previous CVA affecting L Side (Mar 2025). Used a cane up until stroke. FWW in the house, W/C for community and appts. Son states she uses the restroom a lot so she needs to move and use FWW better. Was doing [facility] with therapy in [facility] jail (3x a week), came home with HHPT in June 2024 and completed HHPT for about 1 month. Son states patient did not keep up with exercises. She currently goes to [facility] Wed AND Wed, not exercising often. Son states 6 falls in the past year, 2 back to back days in end of November. Off High BP meds now due to recent Hypotension. Patient Goals: More strength in legs and mobility for indep. movement/transfers. Functional Limitations: rising from a chair, walking, stair negotiation, physical activities Prior Level of Function: Independent without limitations Relevant History Past Relevant Medical Conditions: Cardiac, Atrial Fibrillation, Cerebral Vascular Accident, Hypertension (CVA, with residual weakness on the affected side (left); Osteoporosis.) Past Relevant Surgical Conditions: Total Knee Replacement-Right, Total Knee Replacement-Left Employment: Retired Recreation / Current Exercise: None Home Environment Patient Lives With: Family (Son) Assistance Available: PRN Home Type: Apt/Condo Entry To Home: Stairs, Without Rail Number Of Stairs Into Home: 2 (Handrail, son helps.) Number Of Stairs To Bed/Bath: 0 Tub/Shower Type: Combo; Dtr in law assist. Equipment Owned: Cane, Walker- Wheeled, Wheelchair- Manual Intake Information: Prescription present Previous Treatment: None Falls Interview: Two or more falls in the last year Falls Intervention: More thorough falls assessment to be performed Falls History # of falls in past year: 6 # of falls resulting in (more content not included)... [facility] 01-01-2025 Telephone encounter Note Office received 90 day Physician order forms from [place] for PCP to sign and review. This has been completed and faxed back to [phone]. Cecelia Raymond MA [facility] 01-01-2025 Miscellaneous Notes Office received 90 day Physician order forms from [place] for PCP to sign and review. This has been completed and faxed back to [phone]. Cecelia Raymond MA documented in this encounter [facility] 12-29-2024 Telephone encounter Note ----- Message from Shanika Matute MA sent at 12/29/2024 11:06 AM EDT ----- ----- Message ----- From: Lulu Staton APRN.CNP Sent: 12/29/2024 10:50 AM EDT To: Madeleine Goldsmith ----- Message from Lulu Staton APRN.CNP sent at 12/29/2024 10:50 AM EDT ----- ----- Message ----- From: RadiologyPhani In Sent: 12/29/2024 10:47 AM EDT To: Lulu Staton APRN.CNP [facility] 12-29-2024 Miscellaneous Notes ----- Message from Shanika Matute MA sent at 12/29/2024 11:06 AM EDT ----- ----- Message ----- From: Lulu Staton APRN.CNP Sent: 12/29/2024 10:50 AM EDT To: Madeleine Staton Pool ----- Message from Lulu Staton APRN.CNP sent at 12/29/2024 10:50 AM EDT ----- ----- Message ----- From: Phani Beltran In Sent: 12/29/2024 10:47 AM EDT To: Lulu Staton APRN.[employer]CH[employer]IC Pt son Espinoza notified. Asking if she can get the Tessalon perles to help with cough. Only need to call pt if problems prescribing. Send to [facility] in [place]. Shanika Matute MA Please let patient know their xray is normal. No ATB indicated at this time. Continue mucinex and follow up with GI as indicated. CBC shows normal levels. documented in this encounter [facility] 12-29-2024 Telephone encounter Note Pt son Espinoza notified. Asking if she can get the Tessalon perles to help with cough. Only need to call pt if problems prescribing. Send to [facility] in [place]. Shanika Matute MA [facility] 12-29-2024 Telephone encounter Note Please let patient know their xray is normal. No ATB indicated at this time. Continue mucinex and follow up with GI as indicated. CBC shows normal levels. [facility] 12-29-2024 History of Presen t illness Narrative Radiology Service Progress Note PATIENT NAME: Krystyna Khanna DATE OF SERVICE: December 29, 2024 TIME: 10:30 AM PATIENT IDENTITY VERIFICATION COMPLETED USING TWO (2) IDENTIFIERS: Name and Date of confirmed by patient verbally. FALL SCREENING: Has the patient had 2 falls in the last year or 1 fall with injury or currently using an Ambulatory Assistive Device (Walker, Cane, Wheelchair, Crutches, etc.)? Yes, Patient High Risk for Falls What interventions were put in place to prevent falls during this visit? Offered Assistance with Transfers/Clothing, Instructed Patient to Remain Seated (Not on Exam Table) Until Exam, and Increased Observations by Caregivers PATIENT GENDER DATA: Assigned female at . status: : No status: NO. PATIENT RELEVANT IMPLANT DATA REVIEWED: Yes PATIENT PRESENTS WITH AN IMPLANTABLE OR ATTACHED IT SERVICE TECHNICIAN: No RADIOLOGY DEPARTMENT: General X-ray: Exam(s) Completed: Chest X-Ray PERIPHERAL IV DATA: Not applicable SIGNED BY: RT Joya(R) December 29, 2024 10:30 AM documented in this encounter [facility] 12-29-2024 Note HNO ID: [id number] Author: CINDY KHOURY RT([place]) Service: ? Author Type: Front Office Manager Type: Progress Notes Filed: 12/29/2024 10:30 Note Text: Radiology Service Progress Note PATIENT NAME: Krystyna Khanna DATE OF SERVICE: December 29, 2024 TIME: 10:30 AM PATIENT IDENTITY VERIFICATION COMPLETED USING TWO (2) IDENTIFIERS: Name and Date of confirmed by patient verbally. FALL SCREENING: Has the patient had 2 falls in the last year or 1 fall with injury or currently using an Ambulatory Assistive Device (Walker, Cane, Wheelchair, Crutches, etc.)? Yes, Patient High Risk for Falls What interventions were put in place to prevent falls during this visit? Offered Assistance with Transfers/Clothing, Instructed Patient to Remain Seated (Not on Exam Table) Until Exam, and Increased Observations by Caregivers PATIENT GENDER DATA: Assigned female at . status: : No status: NO. PATIENT RELEVANT IMPLANT DATA REVIEWED: Yes PATIENT PRESENTS WITH AN IMPLANTABLE OR ATTACHED IT SERVICE TECHNICIAN: No RADIOLOGY DEPARTMENT: General X-ray: Exam(s) Completed: Chest X-Ray PERIPHERAL IV DATA: Not applicable SIGNED BY: RT Joya(R) December 29, 2024 10:30 AM [facility] 12-29-2024 Note HNO ID: [id number] Author: LULU STATON APRN.[employer]CH[employer]IC Service: ? Author Type: Nurse Practitioner Type: Progress Notes Filed: 12/29/2024 09:51 Note Text: Chief Complaint Patient presents with: Cough: X 1 week black stools HPI Krystyna Khanna is a 89 year old female who presents here today for Above Complaints. Patient presents for dark tarry stool. Patient is not on iron supplementation or taking pepto. Denies abdominal pain. Also reports productive cough with some Shortness of Breath. Past medical history, appointments, medications, allergies reviewed. 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 11/30/2022 Dementia without behavioral disturbance (HCC) 05/30/2024 Elevated hemoglobin A1c 11/08/2017 Encounter for Medicare annual wellness exam 09/25/2020 Medical B eligibilty date 02/18/2000 Date of last exam 10/25/2020 Hepatitis thinks B History of congestive heart failure History of CVA (cerebrovascular accident) 04/23/2024 04/19/2024: Rt frontoparietal, Lt parietal History of heart attack Hypertension, essential 11/08/2017 Left hemiparesis (HCC) 05/30/2024 Obesity, Class II, BMI 35-39.9 11/08/2017 Osteoarthritis Osteopenia, senile 09/25/2020 Primary insomnia 12/11/2024 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 No further w/u needed and ok to stay on Xarelto RBBB 09/27/2024 Vitreous hemorrhage, right eye ([facility] [facility] 09/27/2024 Previous Surgical History PAST SURGICAL HISTORY Procedure Laterality Date 2D ECHO (EXEP) 10/28/2020 EF=60%, 1+ TImod alvarez dysf ARTHRP KNE CONDYLEANDPLATU MEDIALANDLAT COMPARTMENTS Left 11/19/2017 Knee replacement, total PAST SURGICAL HISTORY OF 2004 right knee replacement REMV CATARACT EXTRACAP,INSERT LENS Bilateral REMV CATARACT EXTRACAP,INSERT LENS Right 12/05/2024 REVISION OF UPPER EYELID Bilateral 11/21/2021 TUBAL LIGATION Family History FAMILY HISTORY Problem Relation Age of Onset Heart Mother Heart Father 59 heart trouble Hypertension Father Heart Sister Breast Cancer Sister Cancer Paternal Grandmother stomach Breast Cancer Maternal Aunt Diabetes Maternal Aunt Diabetes Other cousin Patient Allergies ALLERGIES Allergen Reactions Darvocet A500 [Prop* Unknown Propoxyphene Unknown Sulfa (Sulfonamide * Other: See Comments didn't feel right, nervousness Current Medications Current Outpatient Medications on File Prior to Visit Medication Sig amiodarone (PACERONE) 200 mg tablet Take 200 mg by mouth once daily. traZODone (DESYREL) 50 mg tablet Take 0.5 tablets by mouth daily at bedtime. atorvastatin (LIPITOR) 40 mg tablet Take 1 tablet by mouth once daily. donepezil (ARICEPT) 10 mg tablet Take 1 tablet by mouth daily at bedtime. apixaban (ELIQUIS) 5 mg tab(s) Take 1 tablet by mouth two times a day. melatonin 3 mg tablet Take 1 tablet by mouth daily at bedtime. benzonatate (TESSALON PERLES) 100 mg capsule Take 2 capsules by mouth three times a day as needed for cough. loperamide HCl (IMODIUM) 2 mg tab Take 2 mg by mouth as needed. multivitamin tablet Take 1 tablet by mouth once daily. acetaminophen (TYLENOL) 500 mg tablet Take 500 mg by mouth every 6 hours as needed. No current facility-administered medications on file prior to visit. Social History SOCIAL HISTORY[1] Review of Symptoms REVIEW OF SYSTEMS SEE HPI EXAM: BP 101/61 Pulse 89 PHYSICAL EXAMINATION: General appearance: Lungs: Positive findings: rhonchi Shortness of breath: While lying flat Cough Heart: RRR without murmur, gallop, or rubs. No ectopy Abdomen: Normal abdominal exam, Abdomen soft, non-tender. Bowel sounds normal. No masses, organomegaly Health Maintenance List Shingrix Vaccine(1 of 2) Never done RSV Vaccine(1 - 1-dose 75+ series) Never done Advance Directive Discussion due on 04/19/2024 Medicare Annual Wellness Visit due on 11/24/2024 Influenza Vaccine(1) due on 12/18/2024 DTaP,Tdap,Td Vaccine(2 - Td or Tdap) due on 11/18/2027 Diabetes Screening due on 12/12/2027 Bone Density Screening Completed Pneumococcal Vaccine: 50+ Completed ASSESSMENT/PLAN: 1. Black tarry stools - ICD9: 578.1, ICD10: K92.1 (primary diagnosis) - OCCULT BLD EXAM-DIAG - COMPLETE BLOOD COUNT AND DIFFERENTIAL 2. Acute cough - ICD9: 786.2, ICD10: R05.1 - XR CHEST 2V FRONTAL/LAT 3. Rhonchi at left lung base - ICD9: 786.7, ICD10: R09.89 - XR CHEST 2V FRONTAL/LAT Lulu Staton APRN.[employer] [1] Social History Tobacco Use Smoking status: Never Smokeless tobacco: Never Vaping Use Vaping status: Never Used Substance Use Topics Alcohol use: No Drug use: No [facility] 12-29-2024 History of Presen t illness Narrative Chief Complaint Patient presents with: Cough: X 1 week black stools HPI Krystyna Khanna is a 89 year old female who presents here today for Above Complaints. Patient presents for dark tarry stool. Patient is not on iron supplementation or taking pepto. Denies abdominal pain. Also reports productive cough with some Shortness of Breath. Past medical history, appointments, medications, allergies reviewed. 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 11/30/2022 Dementia without behavioral disturbance (HCC) 05/30/2024 Elevated hemoglobin A1c 11/08/2017 Encounter for Medicare annual wellness exam 09/25/2020 Medical B eligibilty date 02/18/2000 Date of last exam 10/25/2020 Hepatitis thinks B History of congestive heart failure History of CVA (cerebrovascular accident) 04/23/2024 04/19/2024: Rt frontoparietal, Lt parietal History of heart attack Hypertension, essential 11/08/2017 Left hemiparesis (HCC) 05/30/2024 Obesity, Class II, BMI 35-39.9 11/08/2017 Osteoarthritis Osteopenia, senile 09/25/2020 Primary insomnia 12/11/2024 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 No further w/u needed and ok to stay on Xarelto RBBB 09/27/2024 Vitreous hemorrhage, right eye (HCC) 09/27/2024 Previous Surgical History PAST SURGICAL HISTORY Procedure Laterality Date 2D ECHO (EXEP) 10/28/2020 EF=60%, 1+ TImod alvarez dysf ARTHRP KNE CONDYLE&PLATU MEDIAL&LAT COMPARTMENTS Left 11/19/2017 Knee replacement, total PAST SURGICAL HISTORY OF 2004 right knee replacement REMV CATARACT EXTRACAP,INSERT LENS Bilateral REMV CATARACT EXTRACAP,INSERT LENS Right 12/05/2024 REVISION OF UPPER EYELID Bilateral 11/21/2021 TUBAL LIGATION Family History FAMILY HISTORY Problem Relation Age of Onset Heart Mother Heart Father 59 heart trouble Hypertension Father Heart Sister Breast Cancer Sister Cancer Paternal Grandmother stomach Breast Cancer Maternal Aunt Diabetes Maternal Aunt Diabetes Other cousin Patient Allergies ALLERGIES Allergen Reactions Darvocet A500 [Prop* Unknown Propoxyphene Unknown Sulfa (Sulfonamide * Other: See Comments didn't feel right, nervousness Current Medications Current Outpatient Medications on File Prior to Visit Medication Sig amiodarone (PACERONE) 200 mg tablet Take 200 mg by mouth once daily. traZODone (DESYREL) 50 mg tablet Take 0.5 tablets by mouth daily at bedtime. atorvastatin (LIPITOR) 40 mg tablet Take 1 tablet by mouth once daily. donepezil (ARICEPT) 10 mg tablet Take 1 tablet by mouth daily at bedtime. apixaban (ELIQUIS) 5 mg tab(s) Take 1 tablet by mouth two times a day. melatonin 3 mg tablet Take 1 tablet by mouth daily at bedtime. benzonatate (TESSALON PERLES) 100 mg capsule Take 2 capsules by mouth three times a day as needed for cough. loperamide HCl (IMODIUM) 2 mg tab Take 2 mg by mouth as needed. multivitamin tablet Take 1 tablet by mouth once daily. acetaminophen (TYLENOL) 500 mg tablet Take 500 mg by mouth every 6 hours as needed. No current facility-administered medications on file prior to visit. Social History SOCIAL HISTORY[1] Review of Symptoms REVIEW OF SYSTEMS SEE HPI EXAM: BP 101/61 Pulse 89 PHYSICAL EXAMINATION: General appearance: Lungs: Positive findings: rhonchi Shortness of breath: While lying flat Cough Heart: RRR without murmur, gallop, or rubs. No ectopy Abdomen: Normal abdominal exam, Abdomen soft, non-tender. Bowel sounds normal. No masses, organomegaly Health Maintenance List Shingrix Vaccine(1 of 2) Never done RSV Vaccine(1 - 1-dose 75+ series) Never done Advance Directive Discussion due on 04/19/2024 Medicare Annual Wellness Visit due on 11/24/2024 Influenza Vaccine(1) due on 12/18/2024 DTaP,Tdap,Td Vaccine(2 - Td or Tdap) due on 11/18/2027 Diabetes Screening due on 12/12/2027 Bone Density Screening Completed Pneumococcal Vaccine: 50+ Completed ASSESSMENT/PLAN: 1. Black tarry stools - ICD9: 578.1, ICD10: K92.1 (primary diagnosis) - OCCULT BLD EXAM-DIAG - COMPLETE BLOOD COUNT AND DIFFERENTIAL 2. Acute cough - ICD9: 786.2, ICD10: R05.1 - XR CHEST 2V FRONTAL/LAT 3. Rhonchi at left lung base - ICD9: 786.7, ICD10: R09.89 - XR CHEST 2V FRONTAL/LAT Lulu Staton APRN.KRISTINE [1] Social History Tobacco Use Smoking status: Never Smokeless tobacco: Never Vaping Use Vaping status: Never Used Substance Use Topics Alcohol use: No Drug use: No documented in this encounter [facility] 12-28-2024 Telephone encounter Note Forwarding FYI for appt tomorrow. Nikia Pineda RN [facility] 12-28-2024 Miscellaneous Notes Forwarding FYI for appt tomorrow. Nikia Pineda RN Reason for Conversation Rectal Bleeding Background Son calls for black streaks in depends that are tarry. Nurse triage recommends ED. Son declines as he just wanted provider notified prior to appt on 01/05/2025 which is for a medicare wellness visit. Notified that patient would need seen sooner than that and scheduled per son's request. Care advice reviewed with verbalized understanding. Disposition Go to ED Now Reason for Disposition Black or tarry bowel movements (Exception: Chronic-unchanged black-rodriges BMs AND is taking iron pills or Pepto-Bismol.) 1. APPEARANCE of BLOOD: Son calls to report. Black smears in depends. Tarry looking per daughter in law. Son reports patient had an accident Wednesday and he had to clean it up and he didn't feel it was black. Son wanting to notify provider before appointment on 01/05/2025 which is for medicare wellness. Son not wanting to take patient to the ER. Scheduled for tomorrow but had to be an AM appt as patient has a hair appt at 11 am. Also, reports cough that started Wednesday. Mucinex ineffective. 2. AMOUNT: Not sure if passing with stools. Has noticed on depends that they throw away. 3. FREQUENCY: Not sure once or twice a day since Wednesday. 4. ONSET: Wednesday 5. DIARRHEA: No 6. CONSTIPATION: No 7. RECURRENT SYMPTOMS: Son is not certain and patient is a poor historian. 8. BLOOD THINNERS: Eliquis 5 mg twice daily. 9. OTHER SYMPTOMS: No abdomen pain, vomiting, dizziness, fever. No Additional Information on file. Protocols Used Rectal Yxclylqk-[id number] documented in this encounter [facility] 12-28-2024 Telephone encounter Note Reason for Conversation Rectal Bleeding Background Son calls for black streaks in depends that are tarry. Nurse triage recommends ED. Son declines as he just wanted provider notified prior to appt on 01/05/2025 which is for a medicare wellness visit. Notified that patient would need seen sooner than that and scheduled per son's request. Care advice reviewed with verbalized understanding. Disposition Go to ED Now Reason for Disposition Black or tarry bowel movements (Exception: Chronic-unchanged black-rodriges BMs AND is taking iron pills or Pepto-Bismol.) 1. APPEARANCE of BLOOD: Son calls to report. Black smears in depends. Tarry looking per daughter in law. Son reports patient had an accident Wednesday and he had to clean it up and he didn't feel it was black. Son wanting to notify provider before appointment on 01/05/2025 which is for medicare wellness. Son not wanting to take patient to the ER. Scheduled for tomorrow but had to be an AM appt as patient has a hair appt at 11 am. Also, reports cough that started Wednesday. Mucinex ineffective. 2. AMOUNT: Not sure if passing with stools. Has noticed on depends that they throw away. 3. FREQUENCY: Not sure once or twice a day since Wednesday. 4. ONSET: Wednesday 5. DIARRHEA: No 6. CONSTIPATION: No 7. RECURRENT SYMPTOMS: Son is not certain and patient is a poor historian. 8. BLOOD THINNERS: Eliquis 5 mg twice daily. 9. OTHER SYMPTOMS: No abdomen pain, vomiting, dizziness, fever. No Additional Information on file. Protocols Used Rectal [id number] [facility] 12-14-2024 Telephone encounter Note Call to Espinoza [place] (POA) and results below reviewed with son. He verbalized understanding. Notes he did receive phone calls to setup appt's for GI and Urology in December. PT setup as well. Cecelia Raymond MA [facility] 12-14-2024 Miscellaneous Notes Call to Espinoza [place] (POA) and results below reviewed with son. He verbalized understanding. Notes he did receive phone calls to setup appt's for GI and Urology in December. PT setup as well. Cecelia Raymond MA Let Lani kearney know recent labs were all ok and her urine test was neg for infection. documented in this encounter [facility] 12-14-2024 Telephone encounter Note Let Lani kearney know recent labs were all ok and her urine test was neg for infection. [facility] 12-11-2024 Instructions Rufino Erickson MD - 12/11/2024 2:40 PM EDT We discussed your recent falls, weakness, and balance concerns: - I recommend starting outpatient physical therapy at the [facility] twice a week for up to 8 weeks. This will help improve your strength and balance. The therapists will tailor the exercises to your needs. - Please let us know if you experience any new falls or worsening weakness. We discussed your urinary symptoms and bladder concerns: - I have referred you to Dr. Aguirre, a local urologist in [place] who specializes in female urology, to evaluate your bladder symptoms and determine if further testing or treatment is needed. - If Dr. Aguirre does not accept your insurance, we can refer you to a [facility] urologist in [place]. We discussed your bowel symptoms: - I have referred you to Dr. Gardner, a ferry captain, to evaluate your sensation of needing to have a bowel movement frequently. His office will contact you to schedule an appointment. If there is a delay in scheduling, please let us know. We discussed your sleep difficulties and itching: - I have prescribed Trazodone 25 mg to help with both your sleep and itching. Take half a tablet (12.5 mg) about 30-45 minutes before bed as needed. If you feel groggy or disoriented in the morning, stop taking it and let me know. - Keep the tablet and a glass of water by your bedside. Only take it if you are unable to fall asleep after tossing and turning for an hour. We discussed your headaches and Tylenol use: - You mentioned taking Tylenol 500 mg (extra strength) up to 4 times a day. This is within the safe limit of 8 tablets (4,000 mg) per day. Please continue to monitor your usage and avoid exceeding this limit. - If your headaches persist or worsen, let us know so we can evaluate further. We discussed your dry mouth at night: - This is likely due to sleeping with your mouth open. Keep water by your bedside to stay hydrated. We discussed your blood pressure: - Your blood pressure was low today, but you are no longer taking blood pressure medication. Please let us know if you feel dizzy or lightheaded. We ordered the following tests: - A urine test and culture to check for a urinary tract infection (UTI). - Blood tests to check your electrolytes (sodium, potassium, calcium) and thyroid function. Next steps: - The offices of Dr. Aguirre and Dr. Gardner will contact you to schedule appointments. If you do not hear from them within a week, please call their offices directly. - Follow up with me if your symptoms worsen or if you have any new concerns. documented in this encounter [facility] 12-11-2024 History of Presen t illness Narrative Chief Complaint Patient presents with: Fall: frequent Urinary Frequency HPI Krystyna Khanna is a 89 year old female who presents here today for an acute visit. Patient scheduled same day and spoke with Nurse Triage regarding increased falling and urinary frequency. Per Sons Espinoza and lani patient having moderate weakness, falls, and urinary frequency. Patient has had two falls in the past week. Does have a walker, but she fell and knocked over the walker about 1 week ago. Fell yesterday in the middle of the night when getting up out of bed. 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 Patient lives with Son, Espinoza. Was previously doing PT, post CVA. Has not had therapy since July to August. Feels her legs/knee are weaker. Son states that she urinates frequently. Patient states when she goes to the bathroom she feels she has to have BM. Takes Imodium for BM's. Son states that she can go to the bathroom 3 x per hour. Does wear pads and goes through them frequently. Has urgency and incontinence. Mouth feels very dry all the time and is drinking a lot of water, but she drinks a lot of water. Krystyna Khanna is a 89-year-old female, with a history of CVA, presenting with multiple falls, generalized weakness, and urinary incontinence. She is accompanied by her two sons, who are providing additional history. Krystyna reports multiple falls recently, with her son noting that she has been demario to avoid serious injury. She also reports feeling sort of weak today, but denies dizziness. She has a history of CVA, with residual weakness on the affected side (left). Her son notes that she dragged her leg a lot after the stroke, but improved with therapy. She also reports frequent urinary incontinence, stating that she feels an urge to defecate instead of urinate. She notes that she urinates when she gets to the bathroom, but sometimes loses urine before getting there. She has been using a lot of pads. She denies overflow incontinence. Krystyna also reports difficulty sleeping, stating that she worries about crazy stuff. She has been taking melatonin 10 mg, but it has not been effective. She also reports dry mouth at night, but not during the day. She has been taking a lot of Tylenol for headaches, which have been occurring daily. She takes 2 tablets of 500 mg every 6 hours, up to 4 times a day. She denies taking more than 8 tablets a day. She denies taking it out of habit, stating that she takes it for headaches. Krystyna has a history of low blood pressure, and was taken off her antihypertensive medication about a month ago. Her blood pressure was 120/80 mmHg last Wednesday. She denies feeling dizzy when coming into the office today. She also reports dry skin. Past medical history, appointments, medications, allergies reviewed. 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 11/30/2022 Dementia without behavioral disturbance (HCC) 05/30/2024 Elevated hemoglobin A1c 11/08/2017 Encounter for Medicare annual wellness exam 09/25/2020 Medical B eligibilty date 02/18/2000 Date of last exam 10/25/2020 Hepatitis thinks B History of congestive heart failure History of CVA (cerebrovascular accident) 04/23/2024 04/19/2024: Rt frontoparietal, Lt parietal History of heart attack Hypertension, essential 11/08/2017 Left hemiparesis (HCC) 05/30/2024 Obesity, Class II, BMI 35-39.9 11/08/2017 Osteoarthritis Osteopenia, senile 09/25/2020 Primary insomnia 12/11/2024 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 No further w/u needed and ok to stay on Xarelto RBBB 09/27/2024 Vitreous hemorrhage, right eye (HCC) 09/27/2024 Previous Surgical History PAST SURGICAL HISTORY Procedure Laterality Date 2D ECHO (EXEP) 10/28/2020 EF=60%, 1+ TImod alvarez dysf ARTHRP KNE CONDYLE&PLATU MEDIAL&LAT COMPARTMENTS Left 11/19/2017 Knee replacement, total PAST SURGICAL HISTORY OF 2005 right knee replacement REMV CATARACT EXTRACAP,INSERT LENS Bilateral REMV CATARACT EXTRACAP,INSERT LENS Right 12/05/2024 REVISION OF UPPER EYELID Bilateral 11/21/2021 TUBAL LIGATION Family History FAMILY HISTORY Problem Relation Age of Onset Heart Mother Heart Father 59 heart trouble Hypertension Father Heart Sister Breast Cancer Sister Cancer Paternal Grandmother stomach Breast Cancer Maternal Aunt Diabetes Maternal Aunt Diabetes Other cousin Patient Allergies ALLERGIES Allergen Reactions Darvocet A500 [Prop* Unknown Propoxyphene Unknown Sulfa (Sulfonamide * Other: See Comments didn't feel right, nervousness Current Medications Current Outpatient Medications on File Prior to Visit Medication Sig atorvastatin (LIPITOR) 40 mg tablet Take 1 tablet by mouth once daily. donepezil (ARICEPT) 10 mg tablet Take 1 tablet by mouth daily at bedtime. apixaban (ELIQUIS) 5 mg tab(s) Take 1 tablet by mouth two times a day. melatonin 3 mg tablet Take 1 tablet by mouth daily at bedtime. benzonatate (TESSALON PERLES) 100 mg capsule Take 2 capsules by mouth three times a day as needed for cough. albuterol HFA (PROVENTIL HFA, VENTOLIN HFA) 90 mcg/actuation inhaler Inhale 2 Puffs as instructed every 4 hours as needed for wheezing/shortness of breath. calcium Carbonate 300 mg, 750mg, (TUMS) 300 mg (750 mg) chewable tablet Take 1 tablet by mouth twice daily. loperamide HCl (IMODIUM) 2 mg tab Take 2 mg by mouth as needed. Cholecalciferol, Vitamin D3, (D3-2000) 50 mcg (2,000 unit) cap Take 1 capsule by mouth once daily. multivitamin tablet Take 1 tablet by mouth once daily. acetaminophen (TYLENOL) 500 mg tablet Take 500 mg by mouth every 6 hours as needed. No current facility-administered medications on file prior to visit. Social History SOCIAL HISTORY[1] Review of Symptoms REVIEW OF SYSTEMS SEE HPI EXAM: BP 112/60 Pulse 68 Resp 16 Wt 69.4 kg (153 lb) BMI 31.94 kg/m BP 112/60 Pulse 68 Resp 16 Wt 69.4 kg (153 lb) BMI 31.94 kg/m Last 5 Encounter Wt Readings: Date: Wt: 12/11/2024 69.4 kg (153 lb) 10/19/2024 67 kg (147 lb 11.3 oz) 10/07/2024 72.2 kg (159 lb 2.8 oz) 09/27/2024 68.5 kg (151 lb) 07/12/2024 0 kg () General Appearance: Well appearing, alert, in no acute distress, well-hydrated, well nourished.. Neck: Supple, no adenopathy; thyroid symmetric, normal size, no bruits. Lungs: Lungs clear to auscultation. No wheezing, rhonchi, rales.. Heart: RRR without murmur, gallop, or rubs. No ectopy. Abdomen: Normal abdominal exam, Abdomen soft, non-tender. Bowel sounds normal. No masses, organomegaly. Extremities: No deformities, edema, skin discoloration, Good capillary refill. . Musculoskeletal: has notable weakness in the left lower extremity.. Peripheral Pulses: Normal. Health Maintenance List Shingrix Vaccine(1 of 2) Never done RSV Vaccine(1 - 1-dose 75+ series) Never done Advance Directive Discussion due on 04/19/2024 Medicare Annual Wellness Visit due on 11/24/2024 Influenza Vaccine(1) due on 12/18/2024 Diabetes Screening due on 09/28/2027 DTaP,Tdap,Td Vaccine(2 - Td or Tdap) due on 11/18/2027 Bone Density Screening Completed Pneumococcal Vaccine: 50+ Completed Data reviewed Assessment and Plan 1. Multiple falls (R29.6) 2. Balance disorder (R26.89) 3. History of CVA (cerebrovascular accident) (Z86.73) 4. General weakness (R53.1) Multiple falls and balance issues with chronic left-sided weakness (3/5) on exam, consistent with prior CVA. Recent increase in generalized weakness may be multifactorial, including possible infection or metabolic derangement. - Order urinalysis and urine culture to rule out UTI as a contributor to weakness and falls. - Order basic metabolic panel and thyroid function tests to assess for metabolic or endocrine contributors to weakness. Especially since she has been placed on amioderone. - Refer to outpatient physical therapy 1-2 times per week for up to 8 weeks to address balance and strength deficits. - Educated patient and family on the importance of outpatient therapy for optimal rehabilitation. 5. Urine frequency (R35.0) 6. Urgency of urination (R39.15) Urinary frequency and urgency with occasional incontinence; differential includes overactive bladder, UTI, or other urologic dysfunction. - Order urinalysis and urine culture to rule out infection. - Refer to Dr. Aguirre (female urology) for further evaluation and management. - Educated patient and family on types of incontinence and potential causes. 7. Primary insomnia (F51.01) 8. Itching (L29.9) Chronic insomnia not relieved by melatonin; pruritus present. - Start trazodone 25 mg ( tablet of 50 mg) PO at bedtime as needed for sleep and pruritus. - Educated patient and family on potential side effects of trazodone, including morning drowsiness and increased fall risk; advised to use only as needed if unable to sleep after 1 hour. - will wait on CMP to see if Alk phos is elevated and the itching is a symptom of this as well as check a CBC. - the trazadone may help lesson the itching. 9. Defecation symptom (R19.8) Frequent urge to defecate; etiology unclear. - Refer to Dr. Gardner (gastroenterology) for further evaluation. Requested Prescriptions Signed Prescriptions Disp Refills traZODone (DESYREL) 50 mg tablet 45 tablet 1 Sig: Take 0.5 tablets by mouth daily at bedtime. Has follow up 01/05/2025 can see how she is doing on the trazodone 25 mg a day. Rufino Erickson MD I spent a total of 40 minutes on the date of the service which included preparing to see the patient, [id number] patient care, completing clinical documentation, performing a medically appropriate examination, counseling and educating the patient/family/caregiver and ordering medications, tests, or procedures. Recording using Carebase software for draft documentation of the visit was discussed with the patient/authorized disability representative; all questions welcomed and answered. Patient/authorized disability representative agreed to proceed [1] Social History Tobacco Use Smoking status: Never Smokeless tobacco: Never Vaping Use Vaping status: Never Used Substance Use Topics Alcohol use: No Drug use: No documented in this encounter [facility] 12-11-2024 Note HNO ID: [id number] Author: RUFINO ERICKSON MD Service: ? Author Type: Physician Type: Progress Notes Filed: 12/11/2024 15:11 Note Text: Chief Complaint Patient presents with: Fall: frequent Urinary Frequency HPI Krystyna Khanna is a 89 year old female who presents here today for an acute visit. Patient scheduled same day and spoke with Nurse Triage regarding increased falling and urinary frequency. Per Sons Espinoza and lani patient having moderate weakness, falls, and urinary frequency. Patient has had two falls in the past week. Does have a walker, but she fell and knocked over the walker about 1 week ago. Fell yesterday in the middle of the night when getting up out of bed. 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 Patient lives with Son, Espinoza. Was previously doing PT, post CVA. Has not had therapy since July to August. Feels her legs/knee are weaker. Son states that she urinates frequently. Patient states when she goes to the bathroom she feels she has to have BM. Takes Imodium for BM's. Son states that she can go to the bathroom 3 x per hour. Does wear pads and goes through them frequently. Has urgency and incontinence. Mouth feels very dry all the time and is drinking a lot of water, but she drinks a lot of water. Krystyna Khanna is a 89-year-old female, with a history of CVA, presenting with multiple falls, generalized weakness, and urinary incontinence. She is accompanied by her two sons, who are providing additional history. Krystyna reports multiple falls recently, with her son noting that she has been demario to avoid serious injury. She also reports feeling sort of weak today, but denies dizziness. She has a history of CVA, with residual weakness on the affected side (left). Her son notes that she dragged her leg a lot after the stroke, but improved with therapy. She also reports frequent urinary incontinence, stating that she feels an urge to defecate instead of urinate. She notes that she urinates when she gets to the bathroom, but sometimes loses urine before getting there. She has been using a lot of pads. She denies overflow incontinence. Krystyna also reports difficulty sleeping, stating that she worries about crazy stuff. She has been taking melatonin 10 mg, but it has not been effective. She also reports dry mouth at night, but not during the day. She has been taking a lot of Tylenol for headaches, which have been occurring daily. She takes 2 tablets of 500 mg every 6 hours, up to 4 times a day. She denies taking more than 8 tablets a day. She denies taking it out of habit, stating that she takes it for headaches. Krystyna has a history of low blood pressure, and was taken off her antihypertensive medication about a month ago. Her blood pressure was 120/80 mmHg last Wednesday. She denies feeling dizzy when coming into the office today. She also reports dry skin. Past medical history, appointments, medications, allergies reviewed. 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 11/30/2022 Dementia without behavioral disturbance (HCC) 05/30/2024 Elevated hemoglobin A1c 11/08/2017 Encounter for Medicare annual wellness exam 09/25/2020 Medical B eligibilty date 02/18/2000 Date of last exam 10/25/2020 Hepatitis thinks B History of congestive heart failure History of CVA (cerebrovascular accident) 04/23/2024 04/19/2024: Rt frontoparietal, Lt parietal History of heart attack Hypertension, essential 11/08/2017 Left hemiparesis (HCC) 05/30/2024 Obesity, Class II, BMI 35-39.9 11/08/2017 Osteoarthritis Osteopenia, senile 09/25/2020 Primary insomnia 12/11/2024 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 No further w/u needed and ok to stay on Xarelto RBBB 09/27/2024 Vitreous hemorrhage, right eye (HCC) 09/27/2024 Previous Surgical History PAST SURGICAL HISTORY Procedure Laterality Date 2D ECHO (EXEP) 10/28/2020 EF=60%, 1+ TImod alvarez dysf ARTHRP KNE CONDYLEANDPLATU MEDIALANDLAT COMPARTMENTS Left 11/19/2017 Knee replacement, total PAST SURGICAL HISTORY OF 2004 right knee replacement REMV CATARACT EXTRACAP,INSERT LENS Bilateral REMV CATARACT EXTRACAP,INSERT LENS Right 12/05/2024 REVISION OF UPPER EYELID Bilateral 11/21/2021 TUBAL LIGATION Family History FAMILY HISTORY Problem Relation Age of Onset Heart Mother Heart Father 59 heart trouble Hypertension Father Heart Sister Breast Cancer Sister Cancer Paternal Grandmother stomach Breast Cancer Maternal Aunt Diabetes Maternal Aunt Diabetes Other cousin Patient Allergies ALLERGIES Allergen Reactions Darvocet A500 [Prop* Unknown Propoxyphene Unknown Sulfa (Sulfonamide * Other: (more content not included)... [facility] 12-11-2024 Telephone encounter Note Reason for Conversation Urinary Frequency and Fall Disposition SEE HCP (OR PCP TRIAGE) WITHIN 4 HOURS Son unable to bring pt in until 2 pm today due to appt of his own. Son reports he does not feel pt needs evaluated at ER/Hospital at this time. Pt without severe sx's. Reason for Disposition [1] MODERATE weakness (i.e., interferes with work, school, normal activities) AND [2] new-onset or getting worse Contacted pt's POA/son Espinoza Nicholas. Pt was unable to be triaged. Pt lives with her son, Espinoza. Patient has dementia with history of falls, balance disorder, and CVA. Son reports patient has continuation of urinary frequency and leaking during the day and night, along with progressive lower leg weakness, falls and possible worsening of dementia. Recently had had 2 falls in the past 1 week, one yesterday morning and one on 12/05. No severe injuries stated. Unsure if hit head, no head bumps or bruising endorsed. Son reports at times, pt is using bathroom 3 times in 1 hour during day. Uses bathroom at night 2-3 times per night. -Son reports he does not think pt has fever or chills. -no severe changes in cognition -no delusions or hallucinations -is not sure if pain with urination -no N/V -eating and drinking good -continues to walk with a walker, able to walk -2 falls in last week; no severe injuries -no severe pain -son unsure of exact urinary sx's at this time, as pt toilets herself. Son reports pt sees [facility] and was ordered amiodarone which pt began a few days ago. Son reports he would like pt to be evaluated by Dr. Erickson due to continued falls, leg weakness, urinary frequency and possible urine testing/labs and HH therapy again. Patient was receiving home health PT/OT in past and was doing good, then therapy stopped and pt's upper and lower body appear more weak again. No Additional Information on file. Protocols Used Falls and [id number] [facility] 12-11-2024 Miscellaneous Notes Reason for Conversation Urinary Frequency and Fall Disposition SEE HCP (OR PCP TRIAGE) WITHIN 4 HOURS Son unable to bring pt in until 2 pm today due to appt of his own. Son reports he does not feel pt needs evaluated at ER/Hospital at this time. Pt without severe sx's. Reason for Disposition [1] MODERATE weakness (i.e., interferes with work, school, normal activities) AND [2] new-onset or getting worse Contacted pt's POA/son Espinoza Nicholas. Pt was unable to be triaged. Pt lives with her son, Espinoza. Patient has dementia with history of falls, balance disorder, and CVA. Son reports patient has continuation of urinary frequency and leaking during the day and night, along with progressive lower leg weakness, falls and possible worsening of dementia. Recently had had 2 falls in the past 1 week, one yesterday morning and one on 12/05. No severe injuries stated. Unsure if hit head, no head bumps or bruising endorsed. Son reports at times, pt is using bathroom 3 times in 1 hour during day. Uses bathroom at night 2-3 times per night. -Son reports he does not think pt has fever or chills. -no severe changes in cognition -no delusions or hallucinations -is not sure if pain with urination -no N/V -eating and drinking good -continues to walk with a walker, able to walk -2 falls in last week; no severe injuries -no severe pain -son unsure of exact urinary sx's at this time, as pt toilets herself. Son reports pt sees [facility] and was ordered amiodarone which pt began a few days ago. Son reports he would like pt to be evaluated by Dr. Erickson due to continued falls, leg weakness, urinary frequency and possible urine testing/labs and HH therapy again. Patient was receiving home health PT/OT in past and was doing good, then therapy stopped and pt's upper and lower body appear more weak again. No Additional Information on file. Protocols Used Falls and [id number] documented in this encounter [facility] 11-10-2024 Telephone encounter Note Pt's son notified or results and instructions. Son verbalizes understanding. Tiff Hall LPN [facility] 11-10-2024 Miscellaneous Notes Pt's son notified or results and instructions. Son verbalizes understanding. Tiff Hall LPN Let patient know that her xray shows signs of healing of the rib fracture she sustained in September. Follow up in office as needed and we can re-evaluate at her appointment in December. Sarah Yang PA-C documented in this encounter [facility] 11-10-2024 Telephone encounter Note Let patient know that her xray shows signs of healing of the rib fracture she sustained in September. Follow up in office as needed and we can re-evaluate at her appointment in December. Sarah Yang PA-C [facility] 11-03-2024 History of Presen t illness Narrative Radiology Service Progress Note PATIENT NAME: Krystyna Khanna DATE OF SERVICE: November 03, 2024 TIME: 10:40 AM PATIENT IDENTITY VERIFICATION COMPLETED USING TWO (2) IDENTIFIERS: Name and Date of confirmed by patient verbally. FALL SCREENING: Has the patient had 2 falls in the last year or 1 fall with injury or currently using an Ambulatory Assistive Device (Walker, Cane, Wheelchair, Crutches, etc.)? Yes, Patient High Risk for Falls What interventions were put in place to prevent falls during this visit? Increased Observations by Caregivers PATIENT GENDER DATA: Assigned female at . status: : No status: NO. PATIENT RELEVANT IMPLANT DATA REVIEWED: Not Applicable PATIENT PRESENTS WITH AN IMPLANTABLE OR ATTACHED IT SERVICE TECHNICIAN: No RADIOLOGY DEPARTMENT: General X-ray: Exam(s) Completed: Rib X-Ray: Left PERIPHERAL IV DATA: Not applicable SIGNED BY: RT Elizabeth(R) November 03, 2024 10:40 AM documented in this encounter [facility] 11-03-2024 Note HNO ID: [id number] Author: REY QUICK RT(R) Service: ? Author Type: Technologist Type: Progress Notes Filed: 11/03/2024 10:47 Note Text: Radiology Service Progress Note PATIENT NAME: Krystyna Khanna DATE OF SERVICE: November 03, 2024 TIME: 10:40 AM PATIENT IDENTITY VERIFICATION COMPLETED USING TWO (2) IDENTIFIERS: Name and Date of confirmed by patient verbally. FALL SCREENING: Has the patient had 2 falls in the last year or 1 fall with injury or currently using an Ambulatory Assistive Device (Walker, Cane, Wheelchair, Crutches, etc.)? Yes, Patient High Risk for Falls What interventions were put in place to prevent falls during this visit? Increased Observations by Caregivers PATIENT GENDER DATA: Assigned female at . status: : No status: NO. PATIENT RELEVANT IMPLANT DATA REVIEWED: Not Applicable PATIENT PRESENTS WITH AN IMPLANTABLE OR ATTACHED IT SERVICE TECHNICIAN: No RADIOLOGY DEPARTMENT: General X-ray: Exam(s) Completed: Rib X-Ray: Left PERIPHERAL IV DATA: Not applicable SIGNED BY: RT Elizabeth(R) November 03, 2024 10:40 AM [facility] 10-27-2024 Note HNO ID: [id number] Author: BEATRIZ SIDDIQUI MA Service: ? Author Type: Community Nutrition Educator Type: Progress Notes Filed: 10/27/2024 17:49 Note Text: Please see office note with cardio Scan on 10/26/2024 5:12 PM by ProviderМарина PA-C: Consultation - Cardiology Beatriz Siddiqui MA [facility] 10-27-2024 History of Presen t illness Narrative Please see office note with cardio Scan on 10/26/2024 5:12 PM by Provider, MOLLY Parish: Consultation - Cardiology Beatriz Siddiqui MA documented in this encounter [facility] 10-26-2024 Evaluation note Diagnosis Onset Date Resolution Right bundle branch block (RBBB) chronic October 26, 2024 9:29am Essential hypertension inactive 2024 9:29am Hyperlipidemia inactive October 26, 2024 9:29am Paroxysmal atrial fibrillation inactive October 26, 2024 9:29am Vision loss of right eye acute November 20, 2024 10:54am A-fib chronic November 20 10:54am Cognitive dysfunction chronic Nov 10:54am History of embolic stroke chronic November 20, 2024 10:54am Left hemiparesis resolved November 202024 10:54am Right bundle branch block (RBBB) chronic December 07 10:58am Essential hypertension inactive 2024 10:58am Hyperlipidemia inactive November 10:58am Paroxysmal atrial fibrillation inactive December 07 10:58am Change in bowel habits acute Se pt2024 10:56am Diarrhea acute December 10:56am Fecal incontinence acute Sept2024 10:56am [facility] Work Phone: 1(296) 781-868307-08-2025 NoteHNO ID: [id number] Author: CECELIA RAYMOND MA Service: ? Author Type: Community Nutrition Educator Type: Progress Notes Filed: 10/24/2024 16:02 Note Text: Call to pt's Son, Espinoza. Notified him of message below from Provider. Espinoza verbalized understanding and will give Cardiology a call. Cecelia Raymond [facility]07-08-2025 History of Present illness Narrative* Cecelia Raymond MA - 10/24/2024 4:01 PM EDT Call to pt's Son, Espinoza. Notified him of message below from Provider. Espinoza verbalized understanding and will give Cardiology a call. Cecelia Raymond MA * Rufino Erickson MD - 10/24/2024 3:45 PM EDT Please advise patient that with the recent ER visit for A. Fib she needs to make a f/u with Cardio at [facility] because they manage her A. Fib. It looks like the ER did not add or change any of her meds, discuss her case with her commercial loan officer or advise her to f/u with her commercial loan officer. * Shanika Matute MA - 10/24/2024 8:12 AM EDT Pt was at [facility] ER for weakness Scan on 10/24/2024 12:01 AM by Provider, MOLLY Parish: [facility]-Weakness [facility] NoteHNO ID: [id number] Author: RUFINO ERICKSON MD Service: ? Author Type: Physician Type: Progress Notes Filed: 10/24/2024 16:02 Note Text: Please advise patient that with the recent ER visit for A. Fib she needs to make a f/u with Cardio at [facility] because they manage her A. Fib. It looks like the ER did not add or change any of her meds, discuss her case with her commercial loan officer or advise her to f/u with her commercial loan officer.[facility]07-08-2025 NoteHNO ID: [id number] Author: SHANIKA MATUTE MA Service: ? Author Type: Community Nutrition Educator Type: Progress Notes Filed: 10/24/2024 16:02 Note Text: Pt was at [facility] ER for weakness Scan on 10/24/2024 12:01 AM by Provider, External, PACamilaC: [facility] Radiology Diagnostic study note [facility] Imaging Services [address] [place] [address] Chest 1 View (Portable) MR#: [id number] Acct: [id number] Name: KRYSTYNA KHANNA Rep #: [id number] : 1935 F 89 From: Magdalene Cochran MD PCP: Dr. Rufino Erickson MD Status: REG ER Study:Chest 1 View (Portable) Date of Exam: 10/23/24 Exam# [id number] Ordering Dr: Oliva Sagastume MD PROCEDURE: CHEST 1 VIEW (PORTABLE) 10/23/2024 REASON FOR EXAM: WEAKNESS TECHNIQUE: Frontal view of the chest. COMPARISON: 06/08/2024 FINDINGS: Right lower lobe opacity likely subsegmental atelectasis although pneumonia not entirely excluded. No pleural effusion or pneumothorax. Cardiac silhouette is stable. Calcified aortic arch. RAD/Chest 1 View (Portable) IMPRESSION: Right lower lobe opacity likely subsegmental atelectasis although pneumonia not entirely excluded. Reading Location: [facility] CC: Dr. Michael Sagastume MD; Dr. Rufino Erickson MD ~ Elementary School Teacher'S Aide: Signed [facility]07-03-2025 Note* Addendum Note - Lulu Staton APRN.CNP - 10/19/2024 11:14 AM EDTAddended by: LULU STATON on: 10/19/2024 11:14 AM Modules accepted: Orders [facility]07-03-2025 Miscellaneous Notes* Addendum Note - Lulu Staton APRN.CNP - 10/19/2024 11:14 AM EDTAddended by: LULU STATON on: 10/19/2024 11:14 AM Modules accepted: Orders [facility]25 NoteHNO ID: [id number] Author: LULU STATON APRN.CNP Service: ? Author Type: Nurse Practitioner Type: Progress Notes Filed: 10/19/2024 11:14 Note Text: Chief Complaint Patient presents with: Follow Up: Left rib pain HPI Krystyna Khanna is a 89 year old female who presents here today for Above Complaints.. Patient reports rib fracture pain is intermittent, she is taking tylenol and that helps the pain. She is also having a cough that started about a week ago, her nose is running down the back of her throat causing a cough. She is coughing intermittently through the day and it is worse at night. She denies shortness of breath, fevers, chills. She has a history of allergies, and has tried allergy medication OTC but it caused her nose bleed. She is having ongoing itchy dry eyes and is having eye surgery at the end of the month. She is having intermittent urinary leakage at night, wears a diaper and pad and has been having worse leaking recently. She is having trouble sleeping at night, takes melatonin without relief, reports recent of sister and is up worrying through the night. Past medical history, appointments, medications, allergies reviewed. Previous Medical History PAST MEDICAL HISTORY Diagnosis Date Advance directive discussed with patient 11/20/2021 Packets given 11/20/2021 Atrial fibrillation (HCC) Bilateral knee pain 01/09/2010 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 11/30/2022 Elevated hemoglobin A1c 11/08/2017 Encounter for Medicare annual wellness exam 09/25/2020 Medical B eligibilty date 02/18/2000 Date of last exam 10/25/2020 Hepatitis thinks B History of congestive heart failure History of CVA (cerebrovascular accident) 04/23/2024 04/19/2024: Rt frontoparietal, Lt parietal History of heart attack Hypertension, essential 11/08/2017 Left hemiparesis (HCC) 05/30/2024 Obesity, Class II, BMI 35-39.9 11/08/2017 Osteoarthritis Osteopenia, senile 09/25/2020 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 No further w/u needed and ok to stay on Xarelto RBBB 09/27/2024 Previous Surgical History PAST SURGICAL HISTORY Procedure Laterality Date 2D ECHO (EXEP) 10/28/2020 EF=60%, 1+ TImod alvarez dysf ARTHRP KNE CONDYLEANDPLATU MEDIALANDLAT COMPARTMENTS Left 11/19/2017 Knee replacement, total PAST SURGICAL HISTORY OF 2004 right knee replacement REMV CATARACT EXTRACAP,INSERT LENS Bilateral REVISION OF UPPER EYELID Bilateral 11/21/2021 TUBAL LIGATION Family History FAMILY HISTORY Problem Relation Age of Onset Heart Mother Heart Father 59 heart trouble Hypertension Father Heart Sister Breast Cancer Sister Cancer Paternal Grandmother stomach Breast Cancer Maternal Aunt Diabetes Maternal Aunt Diabetes Other cousin Patient Allergies ALLERGIES Allergen Reactions Darvocet A500 [Prop* Unknown Propoxyphene Unknown Sulfa (Sulfonamide * Other: See Comments didn't feel right, nervousness Current Medications Current Outpatient Medications on File Prior to Visit Medication Sig diclofenac (VOLTAREN) 1 % topical gel Apply 2 g to affected area three times a day as needed. atorvastatin (LIPITOR) 40 mg tablet Take 1 tablet by mouth once daily. donepezil (ARICEPT) 10 mg tablet Take 1 tablet by mouth daily at bedtime. metoprolol succinate ER (TOPROL XL) 25 mg 24 hr tablet Take 1 tablet by mouth once daily. apixaban (ELIQUIS) 5 mg tab(s) Take 1 tablet by mouth two times a day. melatonin 3 mg tablet Take 1 tablet by mouth daily at bedtime. benzonatate (TESSALON PERLES) 100 mg capsule Take 2 capsules by mouth three times a day as needed for cough. albuterol HFA (PROVENTIL HFA, VENTOLIN HFA) 90 mcg/actuation inhaler Inhale 2 Puffs as instructed every 4 hours as needed for wheezing/shortness of breath. calcium Carbonate 300 mg, 750mg, (TUMS) 300 mg (750 mg) chewable tablet Take 1 tablet by mouth twice daily. loperamide HCl (IMODIUM) 2 mg tab Take 2 mg by mouth as needed. Cholecalciferol, Vitamin D3, (D3-2000) 50 mcg (2,000 unit) cap Take 1 capsule by mouth once daily. multivitamin tablet Take 1 tablet by mouth once daily. acetaminophen (TYLENOL) 500 mg tablet Take 500 mg by mouth every 6 hours as needed. No current facility-administered medications on file prior to visit. Social History Social History Tobacco Use Smoking status: Never Smokeless tobacco: Never Vaping Use Vaping status: Never Used Substance Use Topics Alcohol use: No Drug use: No Review of Symptoms REVIEW OF SYSTEMS SEE HPI EXAM: BP 113/68 Pulse 61 Wt 67 kg (147 lb 11.3 oz) BMI 30.84 kg/m? General Appearance: Well appearing, alert, in no acute distress, well-hydrated, well nourished.. Lungs: Lungs clear to auscultation. No wheezing, rhonchi, rales.. Heart: RRR without murmur, gallop, or rubs. No ectopy. Musculoskeletal: Small bruise to L side over rib site, reports improvement. Health Maintenan (more content not included)...[facility] 10-19-2024 History of Present illness Narrative* Lulu Staton APRN.[facility] - 10/19/2024 10:46 AM EDT Chief Complaint Patient presents with: Follow Up: Left rib pain HPI Krystyna Khanna is a 89 year old female who presents here today for Above Complaints.. Patient reports rib fracture pain is intermittent, she is taking tylenol and that helps the pain. She is also having a cough that started about a week ago, her nose is running down the back of her throat causing a cough. She is coughing intermittently through the day and it is worse at night. She denies shortness of breath, fevers, chills. She has a history of allergies, and has tried allergy medication OTC but it caused her nose bleed. She is having ongoing itchy dry eyes and is having eye surgery at the end of the month. She is having intermittent urinary leakage at night, wears a diaper and pad and has been having worse leaking recently. She is having trouble sleeping at night, takes melatonin without relief, reports recent of sister and is up worrying through the night. Past medical history, appointments, medications, allergies reviewed. Previous Medical History PAST MEDICAL HISTORY Diagnosis Date Advance directive discussed with patient 11/20/2021 Packets given 11/20/2021 Atrial fibrillation (HCC) Bilateral knee pain 01/09/2010 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 11/30/2022 Elevated hemoglobin A1c 11/08/2017 Encounter for Medicare annual wellness exam 09/25/2020 Medical B eligibilty date 02/18/2000 Date of last exam 10/25/2020 Hepatitis thinks B History of congestive heart failure History of CVA (cerebrovascular accident) 04/23/2024 04/19/2024: Rt frontoparietal, Lt parietal History of heart attack Hypertension, essential 11/08/2017 Left hemiparesis (HCC) 05/30/2024 Obesity, Class II, BMI 35-39.9 11/08/2017 Osteoarthritis Osteopenia, senile 09/25/2020 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 No further w/u needed and ok to stay on Xarelto RBBB 09/27/2024 Previous Surgical History PAST SURGICAL HISTORY Procedure Laterality Date 2D ECHO (EXEP) 10/28/2020 EF=60%, 1+ TImod alvarez dysf ARTHRP KNE CONDYLE&PLATU MEDIAL&LAT COMPARTMENTS Left 11/19/2017 Knee replacement, total PAST SURGICAL HISTORY OF 2004 right knee replacement REMV CATARACT EXTRACAP,INSERT LENS Bilateral REVISION OF UPPER EYELID Bilateral 11/21/2021 TUBAL LIGATION Family History FAMILY HISTORY Problem Relation Age of Onset Heart Mother Heart Father 59 heart trouble Hypertension Father Heart Sister Breast Cancer Sister Cancer Paternal Grandmother stomach Breast Cancer Maternal Aunt Diabetes Maternal Aunt Diabetes Other cousin Patient Allergies ALLERGIES Allergen Reactions Darvocet A500 [Prop* Unknown Propoxyphene Unknown Sulfa (Sulfonamide * Other: See Comments didn't feel right, nervousness Current Medications Current Outpatient Medications on File Prior to Visit Medication Sig diclofenac (VOLTAREN) 1 % topical gel Apply 2 g to affected area three times a day as needed. atorvastatin (LIPITOR) 40 mg tablet Take 1 tablet by mouth once daily. donepezil (ARICEPT) 10 mg tablet Take 1 tablet by mouth daily at bedtime. metoprolol succinate ER (TOPROL XL) 25 mg 24 hr tablet Take 1 tablet by mouth once daily. apixaban (ELIQUIS) 5 mg tab(s) Take 1 tablet by mouth two times a day. melatonin 3 mg tablet Take 1 tablet by mouth daily at bedtime. benzonatate (TESSALON PERLES) 100 mg capsule Take 2 capsules by mouth three times a day as needed for cough. albuterol HFA (PROVENTIL HFA, VENTOLIN HFA) 90 mcg/actuation inhaler Inhale 2 Puffs as instructed every 4 hours as needed for wheezing/shortness of breath. calcium Carbonate 300 mg, 750mg, (TUMS) 300 mg (750 mg) chewable tablet Take 1 tablet by mouth twice daily. loperamide HCl (IMODIUM) 2 mg tab Take 2 mg by mouth as needed. Cholecalciferol, Vitamin D3, (D3-2000) 50 mcg (2,000 unit) cap Take 1 capsule by mouth once daily. multivitamin tablet Take 1 tablet by mouth once daily. acetaminophen (TYLENOL) 500 mg tablet Take 500 mg by mouth every 6 hours as needed. No current facility-administered medications on file prior to visit. Social History Social History Tobacco Use Smoking status: Never Smokeless tobacco: Never Vaping Use Vaping status: Never Used Substance Use Topics Alcohol use: No Drug use: No Review of Symptoms REVIEW OF SYSTEMS SEE HPI EXAM: BP 113/68 Pulse 61 Wt 67 kg (147 lb 11.3 oz) BMI 30.84 kg/m General Appearance: Well appearing, alert, in no acute distress, well-hydrated, well nourished.. Lungs: Lungs clear to auscultation. No wheezing, rhonchi, rales.. Heart: RRR without murmur, gallop, or rubs. No ectopy. Musculoskeletal: Small bruise to L side over rib site, reports improvement. Health Maintenance List Shingrix Vaccine(1 of 2) Never done RSV Vaccine(1 - 1-dose 75+ series) Never done Covid-19 Vaccine( season) due on 12/19/2023 Advance Directive Discussion due on 04/19/2024 Medicare Annual Wellness Visit due on 11/24/2024 Influenza Vaccine(1) due on 12/18/2024 Diabetes Screening due on 09/28/2027 DTaP,Tdap,Td Vaccine(2 - Td or Tdap) due on 11/18/2027 Bone Density Screening Completed Pneumococcal Vaccine: 50+ Completed ASSESSMENT/PLAN: 1. Open fracture of one rib of left side with routine healing, subsequent encounter - ICD9: V54.19,ICD10: S22.32XD - Continue tylenol and voltaren - XR RIBS 2V AP/OBL LEFT Lulu Staton APRN.[employer]LINDER [employer] MECHANIC documented [facility] Instructions* Patient Instructions* Cruz James APRN.CNP - 10/07/2024 12:34 PM EDT ASSESSMENT/PLAN: 1. Rib pain on left side - ICD9: 786.50, ICD10: R07.81 Atypical chest pain, symptoms are not consistent with cardiac ischemia due to pleuritic nature of pain and localization of the pain possible etiology include Costochondritis/chest wall pain, musculoskeletal, and rib fracture - Chest X-ray today. My reading: left 7th rib fracture. Discussed my reading with patient. Radiologist report to follow. - XR RIBS/CHEST 3V AP RIB/OBLS/CXR LEFT - DICLOFENAC 1 % TOPICAL GEL - follow up with PCP office in next 1-2 weeks for re-check Cruz James APRN.CNP -I have reviewed and updated with the patient: allergies, VS, current medications, Past Medical History,Past Surgical History,Past Family Medical History, Past Social History. - Patient education provided today - Discussed with patient medications that are indicated and how to use the medications and what thepotential side effects are. - Warning signs of worsening condition explained to patient -Instructed to follow up with PCP if symptoms not improving in next 2-3 days - Patient left in stable condition after questions answered and patient verbalizes understanding - Instructed to go to Emergency Department right away with any severe worsening chest pain, shortness of breath, headache, dizziness, weakness, numbness,leg swelling , tingling, problems walking or speaking or any other concerning symptoms documented in this encounterM[facility]06-[facility]25 NoteHNO ID: [id number] Author: CRUZ JAMES APRN.CNP Service: ? Author Type: Nurse Practitioner Type: Progress Notes Filed: 10/07/2024 12:50 Note Text: [facility] Subjective Krystyna Khanna is a 89 year old female c/o left rib pain after falling 9 days ago, hurts worse with movement, taking tylenol with minimal relief, walking at baseline, breathing unlabored Patient presents with: left rib pain: X 9 days after a fall The history is provided by the patient. Musculoskeletal Problem This is a new problem. The current episode started 1 to 4 weeks ago. The problem occurs constantly. The problem has been unchanged. Associated symptoms include arthralgias. Pertinent negatives include no abdominal pain, anorexia, change in bowel habit, chest pain, chills, congestion, coughing, diaphoresis, fatigue, fever, headaches, joint swelling, myalgias, nausea, neck pain, numbness, rash, sore throat, swollen glands, urinary symptoms, vertigo, visual change, vomiting or weakness. She has tried acetaminophen for the symptoms. The treatment provided mild relief. Review of Systems Constitutional: Negative for chills, diaphoresis, fatigue and fever. HENT: Negative for congestion and sore throat. Respiratory: Negative for cough and shortness of breath. Cardiovascular: Negative for chest pain. Gastrointestinal: Negative for abdominal pain, anorexia, change in bowel habit, nausea and vomiting. Musculoskeletal: Positive for arthralgias. Negative for joint swelling, myalgias and neck pain. Skin: Negative for rash. Neurological: Negative for vertigo, weakness, numbness and headaches. Objective BP 138/84 Pulse 62 Temp 37.1 ?C (98.8 ?F) (Tympanic) Resp 20 Wt 72.2 kg (159 lb 2.8 oz) SpO2 97% BMI 33.23 kg/m? Physical Exam Vitals and nursing note reviewed. Constitutional: Appearance: Normal appearance. Cardiovascular: Rate and Rhythm: Regular rhythm. Heart sounds: Normal heart sounds. Pulmonary: Effort: Pulmonary effort is normal. Breath sounds: Normal breath sounds. Skin: General: Skin is dry. Neurological: General: No focal deficit present. Mental Status: She is alert. {ASSESSMENT/PLAN: 1. Rib pain on left side - ICD9: 786.50, ICD10: R07.81 Atypical chest pain, symptoms are not consistent with cardiac ischemia due to pleuritic nature of pain and localization of the pain possible etiology include Costochondritis/chest wall pain, musculoskeletal, and rib fracture - Chest X-ray today. My reading: left 7th rib fracture. Discussed my reading with patient. Radiologist report to follow. - XR RIBS/CHEST 3V AP RIB/OBLS/CXR LEFT - DICLOFENAC 1 % TOPICAL GEL - follow up with PCP office in next 1-2 weeks for re-check Cruz James APRN.KRISTINE -I have reviewed and updated with the patient: allergies, VS, current medications, Past Medical History,Past Surgical History,Past Family Medical History, Past Social History. - Patient education provided today - Discussed with patient medications that are indicated and how to use the medications and what the potential side effects are. - Warning signs of worsening condition explained to patient -Instructed to follow up with PCP if symptoms not improving in next 2-3 days - Patient left in stable condition after questions answered and patient verbalizes understanding - Instructed to go to Emergency Department right away with any severe worsening chest pain, shortness of breath, headache, dizziness, weakness, numbness,leg swelling , tingling, problems walking or speaking or any other concerning symptoms History and Record Review Clinical information obtained from an independent historian. History obtained from or confirmed by: family member. External record(s) reviewed: prior outpatient record. Differential Diagnoses - rib fracture is more likely for the following reason(s): suggested by HANDP and consistent with imaging Disposition The patient was discharged. OTC Medications were advised:[facility]06-21-2025 History of Present illness Narrative* Cruz James APRN.CNP - 10/07/2024 12:28 PM EDT [facility] Subjective Krystyna Khanna is a 89 year old female c/o left rib pain after falling 9 days ago, hurts worse withmovement, taking tylenol with minimal relief, walking at baseline, breathing unlabored Patient presents with: left rib pain: X 9 days after a fall The history is provided by the patient. Musculoskeletal Problem This is a new problem. The current episode started 1 to 4 weeks ago. The problem occurs constantly.The problem has been unchanged. Associated symptoms include arthralgias. Pertinent negatives include no abdominal pain, anorexia, change in bowel habit, chest pain, chills, congestion, coughing, diaphoresis, fatigue, fever, headaches, joint swelling, myalgias, nausea, neck pain, numbness, rash, sore throat, swollen glands, urinary symptoms, vertigo, visual change, vomiting or weakness. She has tried acetaminophen for the symptoms. The treatment provided mild relief. Review of Systems Constitutional: Negative for chills, diaphoresis, fatigue and fever. HENT: Negative for congestion and sore throat. Respiratory: Negative for cough and shortness of breath. Cardiovascular: Negative for chest pain. Gastrointestinal: Negative for abdominal pain, anorexia, change in bowel habit, nausea and vomiting. Musculoskeletal: Positive for arthralgias. Negative for joint swelling, myalgias and neck pain. Skin: Negative for rash. Neurological: Negative for vertigo, weakness, numbness and headaches. Objective BP 138/84 Pulse 62 Temp 37.1 C (98.8 F) (Tympanic) Resp 20 Wt 72.2 kg (159 lb 2.8 oz) SpO2 97% BMI 33.23 kg/m Physical Exam Vitals and nursing note reviewed. Constitutional: Appearance: Normal appearance. Cardiovascular: Rate and Rhythm: Regular rhythm. Heart sounds: Normal heart sounds. Pulmonary: Effort: Pulmonary effort is normal. Breath sounds: Normal breath sounds. Skin: General: Skin is dry. Neurological: General: No focal deficit present. Mental Status: She is alert. {ASSESSMENT/PLAN: 1. Rib pain on left side - ICD9: 786.50, ICD10: R07.81 Atypical chest pain, symptoms are not consistent with cardiac ischemia due to pleuritic nature of pain and localization of the pain possible etiology include Costochondritis/chest wall pain, musculoskeletal, and rib fracture - Chest X-ray today. My reading: left 7th rib fracture. Discussed my reading with patient. Radiologist report to follow. - XR RIBS/CHEST 3V AP RIB/OBLS/CXR LEFT - DICLOFENAC 1 % TOPICAL GEL - follow up with PCP office in next 1-2 weeks for re-check Cruz James APRN.KRISTINE -I have reviewed and updated with the patient: allergies, VS, current medications, Past Medical History,Past Surgical History,Past Family Medical History, Past Social History. - Patient education provided today - Discussed with patient medications that are indicated and how to use the medications and what thepotential side effects are. - Warning signs of worsening condition explained to patient -Instructed to follow up with PCP if symptoms not improving in next 2-3 days - Patient left in stable condition after questions answered and patient verbalizes understanding - Instructed to go to Emergency Department right away with any severe worsening chest pain, shortness of breath, headache, dizziness, weakness, numbness,leg swelling , tingling, problems walking or speaking or any other concerning symptoms History and Record Review Clinical information obtained from an independent historian. History obtained from or confirmed by:family member. External record(s) reviewed: prior outpatient record. Differential Diagnoses - rib fracture is more likely for the following reason(s): suggested by H&P and consistent withimaging Disposition The patient was discharged. OTC Medications were advised: documented in [facility] encounterM[facility]06-[facility] History of Present illness Narrative* Linette Aquino Tech - 10/07/2024 11:50 AM EDT Radiology Service Progress Note PATIENT NAME: Krystyna Khanna DATE OF SERVICE: October 07, 2024 TIME: 11:59 AM PATIENT IDENTITY VERIFICATION COMPLETED USING TWO (2) IDENTIFIERS: Name and Date of confirmedby patient verbally. FALL SCREENING: Has the patient had 2 falls in the last year or 1 fall with injury or currently using an Ambulatory Assistive Device (Walker, Cane, Wheelchair, Crutches, etc.)? No PATIENT GENDER DATA: Assigned female at . status: : No status:NO. PATIENT RELEVANT IMPLANT DATA REVIEWED: Not Applicable PATIENT PRESENTS WITH AN IMPLANTABLE OR ATTACHED IT SERVICE TECHNICIAN: No RADIOLOGY DEPARTMENT: General X-ray: Exam(s) Completed: Rib X-Ray: Left PERIPHERAL IV DATA: Not applicable SIGNED BY: Moi Goel October 07, 2024 11:59 AM documented in this encounterM[facility]06-21-2025 NoteHNO ID: [id number] Author: LNIETTE AQUINO Tech Service: ? Author Type: Technologist Type: Progress Notes Filed: 10/07/2024 12:10 Note Text: Radiology Service Progress Note PATIENT NAME: Krystyna Khanna DATE OF SERVICE: October 07, 2024 TIME: 11:59 AM PATIENT IDENTITY VERIFICATION COMPLETED USING TWO (2) IDENTIFIERS: Name and Date of confirmed by patient verbally. FALL SCREENING: Has the patient had 2 falls in the last year or 1 fall with injury or currently using an Ambulatory Assistive Device (Walker, Cane, Wheelchair, Crutches, etc.)? No PATIENT GENDER DATA: Assigned female at . status: : No status: NO. PATIENT RELEVANT IMPLANT DATA REVIEWED: Not Applicable PATIENT PRESENTS WITH AN IMPLANTABLE OR ATTACHED IT SERVICE TECHNICIAN: No RADIOLOGY DEPARTMENT: General X-ray: Exam(s) Completed: Rib X-Ray: Left PERIPHERAL IV DATA: Not applicable SIGNED BY: Moi Goel October 07, 2024 11:59 [facility]06-21-2025 Telephone encounter Note* Telephone Encounter - Nikia Pineda RN - 10/07/2024 11:38 AM EDT Son calls for fall on with back pain. Nurse triage completed. Protocol recommends see provider within 4 hours. No appt availability. Will go to EC as not wanting to go wait in the ER for hours. Care advice reviewed with verbalized understanding. Reason for Disposition [1] SEVERE back pain (e.g., excruciating, unable to do any normal activities) AND [2] not improved 2 hours after pain medicine Answer Assessment - Initial Assessment Questions 1. ONSET: patient lost balance reaching something and fell landing on her left side. 2. LOCATION: Left lower back. Below and even with the ribs. 3. SEVERITY: - MODERATE (4-7): Interferes with normal activities or awakens from sleep. TO SEVERE (8-10): Excruciating pain unable to do any normal activities. 4. PATTERN: Constant. Taking tylenol with little relief. 5. RADIATION: No radiation into legs. 6. CAUSE: Fall 7. BACK OVERUSE: No recent lifting of heavy objects, strenuous work or exercise. 8. MEDICINES: Tylenol 9. NEUROLOGIC SYMPTOMS: No weakness, numbness, or problems with bowel/bladder control. 10. OTHER SYMPTOMS: bruising 3 in x 4 in to left back below ribs. No fever, abdomen pain, burning with urination, blood in urine) Protocols used: Back [id number] [facility] Miscellaneous Notes* Telephone Encounter - Nikia Pineda RN - 10/07/2024 11:38 AM EDT Son calls for fall on with back pain. Nurse triage completed. Protocol recommends see provider within 4 hours. No appt availability. Will go to EC as not wanting to go wait in the ER for hours. Care advice reviewed with verbalized understanding. Reason for Disposition [1] SEVERE back pain (e.g., excruciating, unable to do any normal activities) AND [2] not improved 2 hours after pain medicine Answer Assessment - Initial Assessment Questions 1. ONSET: patient lost balance reaching something and fell landing on her left side. 2. LOCATION: Left lower back. Below and even with the ribs. 3. SEVERITY: - MODERATE (4-7): Interferes with normal activities or awakens from sleep. TO SEVERE (8-10): Excruciating pain unable to do any normal activities. 4. PATTERN: Constant. Taking tylenol with little relief. 5. RADIATION: No radiation into legs. 6. CAUSE: Fall 7. BACK OVERUSE: No recent lifting of heavy objects, strenuous work or exercise. 8. MEDICINES: Tylenol 9. NEUROLOGIC SYMPTOMS: No weakness, numbness, or problems with bowel/bladder control. 10. OTHER SYMPTOMS: bruising 3 in x 4 in to left back below ribs. No fever, abdomen pain, burning with urination, blood in urine) Protocols used: Back [id number] documented in this encounterM[facility]06-13-2025 Telephone encounter Note * Telephone Encounter - Cecelia Raymond MA - 09/29/2024 1:56 PM EDT Pre-op form received from [facility] to be completed. Form completed by PCP. Attached EKG and recent OV notes. Faxed back to [phone]. Cecelia Raymond MA [facility]06-[facility] Miscellaneous Notes* Telephone Encounter - Cecelia Raymond MA - 09/29/2024 1:56 PM EDT Pre-op form received from [facility] to be completed. Form completed by PCP. Attached EKG and recent OV notes. Faxed back to [phone]. Cecelia Raymond MA documented in this encounterM[facility]06-11-2025 Instructions* Patient Instructions* Rufino Erickson MD - 09/27/2024 1:59 PM EDT We discussed your upcoming eye surgery (vitrectomy) for the right eye: - The surgery is being planned to address the dried blood behind your right eye, which has caused significant vision loss. The community support specialist initially thought the blood would clear on its own, but it has not improved. - The procedure will be performed under local anesthesia, meaning you will be awake but your eye will be numbed. - The community support specialist requested clearance from me or your neurologist due to your history of stroke and use of the blood thinner Eliquis. - I will review your blood work (complete blood count and electrolyte panel) to ensure your hemoglobin and kidney function are stable. Please complete the blood work today. Once I have the results, Iwill send the necessary clearance to your eye doctor. - It is unclear if you will need to stop Eliquis before the surgery. Please confirm this with your community support specialist at your next appointment in two weeks. If they require you to stop Eliquis, you may need to consult with your commercial loan officer for further guidance. We discussed your history of atrial fibrillation (AFib) and stroke: - You are currently taking Eliquis to prevent blood clots and reduce the risk of another stroke. Continue taking Eliquis as prescribed unless directed otherwise by your community support specialist or commercial loan officer. - Your EKG today showed no significant changes compared to previous results, which is reassuring. We discussed your general health and recent symptoms: - You reported occasional diarrhea, which seems to be related to your diet. You may use [id number] anti-diarrheal medication as needed, but space doses at least 1-2 hours apart to allow the first dose to take effect. Avoid overuse of these medications. - You mentioned occasional back pain, likely due to prolonged sitting. Consider gentle exercises orstretches to improve mobility and reduce discomfort. - You have experienced some unintentional weight loss. Please continue eating balanced meals with fruits and vegetables, as you have been doing. Let me know if your appetite decreases or if the weight loss continues. - You reported occasional headaches and use Tylenol Extra Strength for relief. You may take two tablets every six hours as needed, but do not exceed the recommended daily dose. We discussed your mobility and daily activities: - You are able to walk short distances and perform some daily tasks but require assistance with certain activities. Continue to stay as active as possible within your comfort level. - You mentioned that you have not been consistent with your home exercises. Resuming these exercises may help improve your strength and mobility. Next steps: - Complete the blood work (CBC and electrolyte panel) today. - Follow up with your community support specialist in two weeks to finalize the surgery date and confirm whether you need to stop Eliquis before the procedure. - If your community support specialist requires you to stop Eliquis, consult with your commercial loan officer for fu, rtherinstructions. - Notify me if you experience any new or worsening symptoms, such as chest pain, shortness of breath, or unusual bleeding. Please let me know if you have any questions or concerns. documented in this encounterM[facility]06-[facility] History of Present illness Narrative* Rufino Erickson MD - 09/27/2024 1:00 PM EDT Chief Complaint Patient presents with: Pre-Op Exam HPI Krystyna Khanna is a 89 year old female who presents here today for Pre Op for eye surgery with [facility]. 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 Krystyna Khanna is a 89-year-old female, with a history of CVA, presenting for preoperative clearance for a vitrectomy. Krystyna has been experiencing decreased vision in the right eye due to a vitreous hemorrhage. She has been under the care of a retinal specialist since July, with three visits so far, but has not seen any improvement in her vision. Krystyna reports complete loss of vision in the right eye, while vision in the left eye remains unaffected. She is scheduled for a vitrectomy in two weeks and is seekingpreoperative clearance. Krystyna has a history of CVA in April, which was attributed to discontinuation of Xarelto in December due to absence of AFib episodes. She was subsequently started on Eliquis. She denies current episodes of AFib, chest pain, or palpitations. She is not aware of any instructions to discontinue Eliquis prior to the upcoming surgery. Krystyna reports difficulty with mobility and requires assistance when climbing stairs. She denies dyspnea or chest pain with exertion. She is able to dress herself but lacks confidence in bathing independently. She denies performing heavy dinkey operator slate such as moving furniture, vacuuming, or sweeping. She has not been consistent with her prescribed exercises due to recent family events. Krystyna denies recent fevers but reports occasional cephalalgia, for which she takes extra strength Tylenol. She also reports back pain, which she attributes to prolonged sitting, and takes Tylenol for relief. Krystyna reports urinary incontinence, noting that she sometimes wets her pad in the morning. She denies dysuria, hematuria, or changes in urinary frequency. She reports occasional blood in her stool, particularly with straining, and suspects she may have hemorrhoids. She experiences diarrhea, which she believes is diet-related, and takes antidiarrheal medication as needed. She denies hematochezia or melena. She reports abdominal pain associated with diarrhea, which resolves after bowel movements. Krystyna denies recent issues with her nose or throat, other than mild rhinorrhea. She denies wheezing, hemoptysis, or shortness of breath. She denies any recent skin sores or rashes, and has not noticed any lumps or swelling in her neck. She denies any recent episodes of syncope, seizures, or tremors. She reports poor sleep quality at night, despite taking melatonin, and attributes this to daytime napping and excessive thinking at night. She denies any recent increase in thirst. Past medical history, appointments, medications, allergies reviewed. Previous Medical History PAST MEDICAL HISTORY Diagnosis Date Advance directive discussed with patient 11/20/2021 Packets given 11/20/2021 Atrial fibrillation (HCC) Bilateral knee pain 01/09/2010 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 11/30/2022 Elevated hemoglobin A1c 11/08/2017 Encounter for Medicare annual wellness exam 09/25/2020 Medical B eligibilty date 02/18/2000 Date of last exam 10/25/2020 Hepatitis thinks B History of congestive heart failure History of CVA (cerebrovascular accident) 04/23/2024 04/19/2024: Rt frontoparietal, Lt parietal History of heart attack Hypertension, essential 11/08/2017 Left hemiparesis (HCC) 05/30/2024 Obesity, Class II, BMI 35-39.9 11/08/2017 Osteoarthritis Osteopenia, senile 09/25/2020 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 No further w/u needed and ok to stay on Xarelto RBBB 09/27/2024 Previous Surgical History PAST SURGICAL HISTORY Procedure Laterality Date 2D ECHO (EXEP) 10/28/2020 EF=60%, 1+ TImod alvarez dysf ARTHRP KNE CONDYLE&PLATU MEDIAL&LAT COMPARTMENTS Left 11/19/2017 Knee replacement, total PAST SURGICAL HISTORY OF 2004 right knee replacement REMV CATARACT EXTRACAP,INSERT LENS Bilateral REVISION OF UPPER EYELID Bilateral 11/21/2021 TUBAL LIGATION Family History FAMILY HISTORY Problem Relation Age of Onset Heart Mother Heart Father 59 heart trouble Hypertension Father Heart Sister Breast Cancer Sister Cancer Paternal Grandmother stomach Breast Cancer Maternal Aunt Diabetes Maternal Aunt Diabetes Other cousin Patient Allergies ALLERGIES Allergen Reactions Darvocet A500 [Prop* Unknown Propoxyphene Unknown Sulfa (Sulfonamide * Other: See Comments didn't feel right, nervousness Current Medications Current Outpatient Medications on File Prior to Visit Medication Sig atorvastatin (LIPITOR) 40 mg tablet Take 1 tablet by mouth once daily. donepezil (ARICEPT) 10 mg tablet Take 1 tablet by mouth daily at bedtime. metoprolol succinate ER (TOPROL XL) 25 mg 24 hr tablet Take 1 tablet by mouth once daily. apixaban (ELIQUIS) 5 mg tab(s) Take 1 tablet by mouth two times a day. melatonin 3 mg tablet Take 1 tablet by mouth daily at bedtime. benzonatate (TESSALON PERLES) 100 mg capsule Take 2 capsules by mouth three times a day as needed for cough. albuterol HFA (PROVENTIL HFA, VENTOLIN HFA) 90 mcg/actuation inhaler Inhale 2 Puffs as instructed every 4 hours as needed for wheezing/shortness of breath. calcium Carbonate 300 mg, 750mg, (TUMS) 300 mg (750 mg) chewable tablet Take 1 tablet by mouth twice daily. loperamide HCl (IMODIUM) 2 mg tab Take 2 mg by mouth as needed. Cholecalciferol, Vitamin D3, (D3-2000) 50 mcg (2,000 unit) cap Take 1 capsule by mouth once daily. multivitamin tablet Take 1 tablet by mouth once daily. acetaminophen (TYLENOL) 500 mg tablet Take 500 mg by mouth every 6 hours as needed. No current facility-administered medications on file prior to visit. Social History Social History Tobacco Use Smoking status: Never Smokeless tobacco: Never Vaping Use Vaping status: Never Used Substance Use Topics Alcohol use: No Drug use: No Review of Symptoms REVIEW OF SYSTEMS GENERAL: No malaise or fevers HEENT: Negative for frequent or significant headaches, No changes in hearing. no nose bleeds or other nasal problems. Decreased vision on the left. NECK: Negative for lumps, goiter, pain and significant neck swelling RESPIRATORY: Negative for cough, hemoptysis, wheezing, COPD, dyspnea or shortness of breath CARDIOVASCULAR: Negative for chest pain, leg swelling, hypertension, CHF or palpitations GI: No nausea, vomiting, or diarrhea and no stomach pains other then when she may have diarrhea. : No history of dysuria, urgency or blood MUSCULOSKELETAL: Negative for new or changes in her typical joint pain or swelling, back pain or muscle pain SKIN: Negative for lesions, rash, and itching HEMATOLOGY/LYMPHOLOGY: Negative for prolonged bleeding, bruising easily or swollen nodes out side of being on the Eliquis. ENDOCRINE: Negative for heat intolerance, polyuria, polydipsia and goiter. Has been cold since being on the Eliquis. NEURO: No history of headaches, syncope, paralysis, seizures or tremors SEE HPI EXAM: BP 104/60 Pulse (!) 59 Resp 18 Wt 68.5 kg (151 lb) SpO2 94% BMI 31.53 kg/m Last 5 Encounter Wt Readings: Date: Wt: 09/27/2024 68.5 kg (151 lb) 07/12/2024 0 kg () 07/05/2024 76.2 kg (168 lb) 04/07/2024 77 kg (169 lb 12.1 oz) 01/11/2024 78 kg (172 lb) General Appearance: Well appearing, alert, in no acute distress, well-hydrated, well nourished.. Skin: Skin color, texture, turgor normal, no suspicious rashes or lesions. Head: Normocephalic, no masses, lesions, tenderness or abnormalities. Eyes: Anicteric sclera. Pupils are equally round and reactive to light. Extraocular movements are intact. . Ears: External ears, TM's normal, canals clear. Nose/Sinuses: Nares normal, septum midline, mucosa normal, no drainage or sinus tenderness. Oropharynx: Lips, mucosa, and tongue normal, teeth and gums normal, oropharynx normal. Neck: Supple, no adenopathy; thyroid symmetric, normal size, no bruits. Lungs: Lungs clear to auscultation. No wheezing, rhonchi, rales.. Heart: RRR without murmur, gallop, or rubs. No ectopy. Abdomen: Normal abdominal exam, Abdomen soft, non-tender. Bowel sounds normal. No masses, organomegaly. Extremities: No deformities, edema, skin discoloration, Good capillary refill. . Musculoskeletal: Muscular strength intact, No joint swelling, deformity, or tenderness. Peripheral Pulses: Normal. Neurologic: patient in a wheel chair. Sensation to light touch and crainal nerves 2-12 intact.. Health Maintenance List Shingrix Vaccine(1 of 2) Never done RSV Vaccine(1 - 1-dose 75+ series) Never done Covid-19 Vaccine( - season) due on 12/19/2023 Advance Directive Discussion due on 04/19/2024 Medicare Annual Wellness Visit due on 11/24/2024 Diabetes Screening due on 09/28/2027 DTaP,Tdap,Td Vaccine(2 - Td or Tdap) due on 11/18/2027 Bone Density Screening Completed Influenza Vaccine Completed Pneumococcal Vaccine: 50+ Completed Data reviewed In office EKG: NSR with RBBB and inferior infarct, age undetermined. This is unchanged from EKG done 08/05/2018 Latest Ref Rng 07/05/2024 Hemoglobin A1C 4.3 - 5.6 % 5.6 Estimated Average Glucose mg/dL 114 Latest Ref Rng 09/27/2024 WBC 3.70 - 11.00 k/uL 3.96 RBC 3.90 - 5.20 m/uL 4.02 Hemoglobin 11.5 - 15.5 g/dL 12.5 Hematocrit 36.0 - 46.0 % 39.1 MCV 80.0 - 100.0 fL 97.3 MCH 26.0 - 34.0 pg 31.1 MCHC 30.5 - 36.0 g/dL 32.0 RDW-CV 11.5 - 15.0 % 12.7 Platelet Count -- MPV -- Neut% % 31.6 Abs Neut (ANC) 1.45 - 7.50 k/uL 1.25 (L) Lymph% % 53.5 Abs Lymph 1.00 - 4.00 k/uL 2.12 Tompkins% % 14.1 Abs Tompkins <0.87 k/uL 0.56 Eosin% % 0.0 Abs Eosin <0.46 k/uL <0.03 Baso% % 0.5 Abs Baso <0.11 k/uL <0.03 Immature Gran % % 0.3 IMMATURE GRANS (ABS) <0.10 k/uL <0.03 NRBC /100 WBC 0.0 Absolute nRBC <0.01 k/uL <0.01 DTYPE Auto Glucose 74 - 99 mg/dL 113 (H) BUN 7 - 21 mg/dL 11 Creatinine 0.58 - 0.96 mg/dL 0.78 Sodium 136 - 144 mmol/L 140 Potassium 3.7 - 5.1 mmol/L 4.1 Chloride 98 - 107 mmol/L 100 CO2 22 - 30 mmol/L 29 Anion Gap 8 - 15 mmol/L 11 Calcium 8.5 - 10.2 mg/dL 9.3 eGFR >=60 mL/min/1.73m 73 Assessment and Plan 1. Pre-operative clearance Patient is scheduled for a vitrectomy in the right eye due to a persistent vitreous hemorrhage. Sheis currently on Eliquis for paroxysmal atrial fibrillation and has a history of CVA. No abnormalities noted on EKG compared to previous years. - if needing cardiac clearance and input on the Eliquis Optho will need to get the input of cardio. - Ordered CBC and electrolyte panel to assess hemoglobin levels and renal function. - Will review lab results and send clearance to the technical support coordinator. Per the ACC/AHA Classifiction of surgical procedure Risk this is a low risk procedure and pt is only going to be under local anesthesia. Per the Damion's simple Cardiac Risk Index her risk of a cardiac even is 0.4%. Her functional capacity is low. From a general medical stand point she is clear for the vitrectomy 2. Vitreous hemorrhage, right eye (HCC) Persistent vitreous hemorrhage in the right eye, causing significant vision loss. Patient has been under the care of a retinal specialist with no improvement. - lLchristy is for for a vitrectomy in the near future 3. Hypertension, essential Stable, no reports of chest pain or dyspnea on exertion. - continue current Tx 4. Elevated hemoglobin A1c - last A1c was 5.6% Therefore not a surgical concern. 5. History of CVA (cerebrovascular accident) Recent CVA in April, likely secondary to discontinuation of Xarelto. Currently on Eliquis. 6. Paroxysmal atrial fibrillation (HCC) Currently managed with Eliquis. No recent episodes reported. - follows with cardiology for management 7. RBBB EKG shows no changes compared to previous years. Rufino Erickson MD I spent a total of 42 minutes on the date of the service which included preparing to see the patient, [id number] patient care, completing clinical documentation, performing a medically appropriate examination, counseling and educating the patient/family/caregiver and ordering medications, tests, or procedures. Recording using Carebase software for draft documentation of the visit was discussed with the patient/authorized disability representative; all questions welcomed and answered. Patient/authorized disability representative agreed to proceed documented [facility] NoteHNO ID: [id number] Author: RUFINO ERICKSON MD Service: ? Author Type: Physician Type: Progress Notes Filed: 09/29/2024 07:07 Note Text: Chief Complaint Patient presents with: Pre-Op Exam HPI Krystyna Khanna is a 89 year old female who presents here today for Pre Op for eye surgery with [facility]. 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 Krystyna Khanna is a 89-year-old female, with a history of CVA, presenting for preoperative clearance for a vitrectomy. Krystyna has been experiencing decreased vision in the right eye due to a vitreous hemorrhage. She has been under the care of a retinal specialist since July, with three visits so far, but has not seen any improvement in her vision. Krystyna reports complete loss of vision in the right eye, while vision in the left eye remains unaffected. She is scheduled for a vitrectomy in two weeks and is seeking preoperative clearance. Krystyna has a history of CVA in April, which was attributed to discontinuation of Xarelto in December due to absence of AFib episodes. She was subsequently started on Eliquis. She denies current episodes of AFib, chest pain, or palpitations. She is not aware of any instructions to discontinue Eliquis prior to the upcoming surgery. Krystyna reports difficulty with mobility and requires assistance when climbing stairs. She denies dyspnea or chest pain with exertion. She is able to dress herself but lacks confidence in bathing independently. She denies performing heavy dinkey operator slate such as moving furniture, vacuuming, or sweeping. She has not been consistent with her prescribed exercises due to recent family events. Krystyna denies recent fevers but reports occasional cephalalgia, for which she takes extra strength Tylenol. She also reports back pain, which she attributes to prolonged sitting, and takes Tylenol for relief. Krystyna reports urinary incontinence, noting that she sometimes wets her pad in the morning. She denies dysuria, hematuria, or changes in urinary frequency. She reports occasional blood in her stool, particularly with straining, and suspects she may have hemorrhoids. She experiences diarrhea, which she believes is diet-related, and takes antidiarrheal medication as needed. She denies hematochezia or melena. She reports abdominal pain associated with diarrhea, which resolves after bowel movements. Krystyna denies recent issues with her nose or throat, other than mild rhinorrhea. She denies wheezing, hemoptysis, or shortness of breath. She denies any recent skin sores or rashes, and has not noticed any lumps or swelling in her neck. She denies any recent episodes of syncope, seizures, or tremors. She reports poor sleep quality at night, despite taking melatonin, and attributes this to daytime napping and excessive thinking at night. She denies any recent increase in thirst. Past medical history, appointments, medications, allergies reviewed. Previous Medical History PAST MEDICAL HISTORY Diagnosis Date Advance directive discussed with patient 11/20/2021 Packets given 11/20/2021 Atrial fibrillation (HCC) Bilateral knee pain 01/09/2010 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 11/30/2022 Elevated hemoglobin A1c 11/08/2017 Encounter for Medicare annual wellness exam 09/25/2020 Medical B eligibilty date 02/18/2000 Date of last exam 10/25/2020 Hepatitis thinks B History of congestive heart failure History of CVA (cerebrovascular accident) 04/23/2024 04/19/2024: Rt frontoparietal, Lt parietal History of heart attack Hypertension, essential 11/08/2017 Left hemiparesis (HCC) 05/30/2024 Obesity, Class II, BMI 35-39.9 11/08/2017 Osteoarthritis Osteopenia, senile 09/25/2020 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 No further w/u needed and ok to stay on Xarelto RBBB 09/27/2024 Previous Surgical History PAST SURGICAL HISTORY Procedure Laterality Date 2D ECHO (EXEP) 10/28/2020 EF=60%, 1+ TImod alvarez dysf ARTHRP KNE CONDYLEANDPLATU MEDIALANDLAT COMPARTMENTS Left 11/19/2017 Knee replacement, total PAST SURGICAL HISTORY OF 2004 right knee replacement REMV CATARACT EXTRACAP,INSERT LENS Bilateral REVISION OF UPPER EYELID Bilateral 11/21/2021 TUBAL LIGATION Family History FAMILY HISTORY Problem Relation Age of Onset Heart Mother Heart Father 59 heart trouble Hypertension Father Heart Sister Breast Cancer Sister Cancer Paternal Grandmother stomach Breast Cancer Maternal Aunt Diabetes Maternal Aunt Diabetes Other cousin Patient Allergies ALLERGIES Allergen Reactions Darvocet A500 [Prop* Unknown Propoxyphene Unknown Sulfa (Sulfonamide * Other: See Comments didn't feel right, nervousness Current Medications Current Outpatient Medications on File Prior to Visit Medication Sig atorvastati (more content not included)...[facility]05-08-2025 Evaluation note* Diagnosis Onset Date Resolution Status Admit Date Right bundle branch block (RBBB) chr onAugust 24, 2024 10:32am Essential hypertension inactive Ma 2024 10:32am Hyperlipidemia inactive August 24 10:32am Paroxysmal atrial fibrillation inact naila August 24, 2024 10:32am [facility] Work Phone: 1(131) 330-125105-08-2025 Evaluation note* Diagnosis Onset Date Resolution Status Admit Date Right bundle branch block (RBBB) chr onAugust 24, 2024 10:32am Essential hypertension inactive Ma 2024 10:32am Hyperlipidemia inactive August 24 10:32am Paroxysmal atrial fibrillation inact naila August 24, 2024 10:32am Right bundle branch block (RBBB) chr onOctober 26, 2024 9:29am Essential hypertension inactive 2024 9:29am Hyperlipidemia inactive October 26, 2024 9:29am Paroxysmal atrial fibrillation inact naila October 26, 2024 9:29am [facility] Work Phone: 1(320) 146-868405-08-2025 Evaluation note* Diagnosis Onset Date Resolution Status Admit Date Right bundle branch block (RBBB) chronic August 24, 2024 10 :32am Essential hypertension inactive 2024 10:32am Hyperlipidemia inactive August 24 10:32am Paroxysmal atrial fibrillation inact naila August 24, 2024 10:32am Right bundle branch block (RBBB) chronic October 26, 2024 9:29am Essential hypertension inactive 2024 9:29am Hyperlipidemia inactive October 26, 2024 9:29am Paroxysmal atrial fibrillation inact naila October 26, 2024 9:29am Vision loss of right eye acute November 20, 2024 10:54am A-fib chronic November 20 10:54am Cognitive dysfunction chronic Nov 10:54am History of embolic stroke chronic November 20, 2024 10:54am Left hemiparesis resolved November 202024 10:54am Right bundle branch block (RBBB) chronic December 07 10:58am Essential hypertension inactive Au 2024 10:58am Hyperlipidemia inactive November 10:58am Paroxysmal atrial fibrillation inact naila December 07, 2024 10:58am [facility] Work Phone: [phone] [id number] (AGENT OF COVID-19) RNA: Not detected INFLUENZA A RNA: Not detected INFLUENZA B RNA: Not detected RESPIRATORY SYNCYTIAL VIRUS (RSV) RNA: Not detectedGenesis HospitalComment on above:Performed By: #### [id number] ####[facility]CL[facility] [id number] [address]03-26-2025 History of Present illness Narrative* Sushil Mallory RT(R) - 07/12/2024 3:10 PM EDT Radiology Service Progress Note PATIENT NAME: Krystyna Khanna DATE OF SERVICE: July 12, 2024 TIME: 3:13 PM PATIENT IDENTITY VERIFICATION COMPLETED USING TWO (2) IDENTIFIERS: Name and Date of confirmedby patient verbally. FALL SCREENING: Has the patient had 2 falls in the last year or 1 fall with injury or currently using an Ambulatory Assistive Device (Walker, Cane, Wheelchair, Crutches, etc.)? Yes, Patient High Riskfor Falls What interventions were put in place to prevent falls during this visit? Offered Assistance with Transfers/Clothing and Instructed Patient to Remain Seated (Not on Exam Table) Until Exam PATIENT GENDER DATA: Assigned female at . status: : No status:NO. PATIENT RELEVANT IMPLANT DATA REVIEWED: Not Applicable PATIENT PRESENTS WITH AN IMPLANTABLE OR ATTACHED IT SERVICE TECHNICIAN: No RADIOLOGY DEPARTMENT: General X-ray: Exam(s) Completed: Chest X-Ray PERIPHERAL IV DATA: Not applicable SIGNED BY: RT Darek(R) July 12, 2024 3:13 PM documented in this encounterM[facility]03-26-2025 NoteHNO ID: [id number] Author: SUSHIL MALLORY RT(R) Service: Radiology Author Type: Technologist Type: Progress Notes Filed: 07/12/2024 15:24 Note Text: Radiology Service Progress Note PATIENT NAME: Krystyna Khanna DATE OF SERVICE: July 12, 2024 TIME: 3:13 PM PATIENT IDENTITY VERIFICATION COMPLETED USING TWO (2) IDENTIFIERS: Name and Date of confirmed by patient verbally. FALL SCREENING: Has the patient had 2 falls in the last year or 1 fall with injury or currently using an Ambulatory Assistive Device (Walker, Cane, Wheelchair, Crutches, etc.)? Yes, Patient High Risk for Falls What interventions were put in place to prevent falls during this visit? Offered Assistance with Transfers/Clothing and Instructed Patient to Remain Seated (Not on Exam Table) Until Exam PATIENT GENDER DATA: Assigned female at . status: : No status: NO. PATIENT RELEVANT IMPLANT DATA REVIEWED: Not Applicable PATIENT PRESENTS WITH AN IMPLANTABLE OR ATTACHED IT SERVICE TECHNICIAN: No RADIOLOGY DEPARTMENT: General X-ray: Exam(s) Completed: Chest X-Ray PERIPHERAL IV DATA: Not applicable SIGNED BY: RT Darek(R) July 12, 2024 3:13 [facility]03-26-2025 NoteHNO ID: [id number] Author: HARRISON OSBORNE APRN.CYLINDER BLOCK MECHANIC Service: ? Author Type: Nurse Practitioner Type: Progress Notes Filed: 07/12/2024 15:37 Note Text: This note was created using NoteWriter. Subjective Krystyna Khanna is a 89 year old female. HPI For the last three days pt has had body aches, sore throat, and headache. Review of Systems Constitutional: Negative for fever. Respiratory: Positive for cough. Genitourinary: Negative for dysuria and frequency. Objective BP 124/78 Pulse 72 Temp 37 ?C (98.6 ?F) (Tympanic) SpO2 94% Physical Exam Vitals and nursing note reviewed. Constitutional: General: She is not in acute distress. Appearance: Normal appearance. She is not ill-appearing. HENT: Head: Normocephalic. Right Ear: Tympanic membrane normal. Left Ear: Tympanic membrane normal. Mouth/Throat: Mouth: Mucous membranes are moist. Pharynx: No oropharyngeal exudate or posterior oropharyngeal erythema. Eyes: Conjunctiva/sclera: Conjunctivae normal. Cardiovascular: Rate and Rhythm: Normal rate and regular rhythm. Pulmonary: Effort: Pulmonary effort is normal. Breath sounds: Normal breath sounds. Musculoskeletal: General: Normal range of motion. Cervical back: Normal range of motion. Skin: General: Skin is warm and dry. Neurological: General: No focal deficit present. Mental Status: She is alert. Psychiatric: Mood and Affect: Mood normal. Behavior: Behavior normal. Assessment and Plan ASSESSMENT/PLAN: 1. Flu-like symptoms - ICD9: 780.99, ICD10: R68.89 (primary diagnosis) Chest x-ray today showed small left pleural effusion but otherwise no other concerning issues. Patient was tested for flu and COVID understanding that there is no specific treatment at this time due to length of symptoms. I did recommend follow-up with PCP for reevaluation and monitoring of the pleural effusion in 10-14 days. - XR CHEST 2V FRONTAL/LAT - COVID AND INFLUENZA A/B AND RSV PCR, ROUTINE Harrison Osborne APRN.[facility]03-26-2025 History of Present illness Narrative* Harrison Osborne APRN.CYLINDER BLOCK MECHANIC - 07/12/2024 2:47 PM EDT This note was created using Etece. Subjective Krystyna Khanna is a 89 year old female. HPI For the last three days pt has had body aches, sore throat, and headache. Review of Systems Constitutional: Negative for fever. Respiratory: Positive for cough. Genitourinary: Negative for dysuria and frequency. Objective BP 124/78 Pulse 72 Temp 37 C (98.6 F) (Tympanic) SpO2 94% Physical Exam Vitals and nursing note reviewed. Constitutional: General: She is not in acute distress. Appearance: Normal appearance. She is not ill-appearing. HENT: Head: Normocephalic. Right Ear: Tympanic membrane normal. Left Ear: Tympanic membrane normal. Mouth/Throat: Mouth: Mucous membranes are moist. Pharynx: No oropharyngeal exudate or posterior oropharyngeal erythema. Eyes: Conjunctiva/sclera: Conjunctivae normal. Cardiovascular: Rate and Rhythm: Normal rate and regular rhythm. Pulmonary: Effort: Pulmonary effort is normal. Breath sounds: Normal breath sounds. Musculoskeletal: General: Normal range of motion. Cervical back: Normal range of motion. Skin: General: Skin is warm and dry. Neurological: General: No focal deficit present. Mental Status: She is alert. Psychiatric: Mood and Affect: Mood normal. Behavior: Behavior normal. Assessment and Plan ASSESSMENT/PLAN: 1. Flu-like symptoms - ICD9: 780.99, ICD10: R68.89 (primary diagnosis) Chest x-ray today showed small left pleural effusion but otherwise no other concerning issues. Patient was tested for flu and COVID understanding that there is no specific treatment at this time due to length of symptoms. I did recommend follow-up with PCP for reevaluation and monitoring of the pleural effusion in 10-14 days. - XR CHEST 2V FRONTAL/LAT - COVID & INFLUENZA A/B & RSV PCR, ROUTINE Harrison Osborne APRN.CYLINDER BLOCK MECHANIC documented in this encounterM[facility]03-21-2025 Telephone encounter Note * Telephone Encounter - John Gomez MA - 07/07/2024 8:51 AM EDT Son notified and voiced understanding. John Gomez MA' [facility]03-21-2025 Miscellaneous Notes* Telephone Encounter - John Gomez MA - 07/07/2024 8:51 AM EDT Son notified and voiced understanding. John Gomez MA' * Telephone Encounter - Rufino Erickson MD - 07/06/2024 10:03 AM EDT Let patient know all her recent labs were ok. documented in this encounterM[facility]03-20-2025 Telephone encounter Note * Telephone Encounter - Rufino Erickson MD - 07/06/2024 10:03 AM EDT Let patient know all her recent labs were ok. [facility]03-19-2025 NoteHNO ID: [id number] Author: RUFINO ERICKSON MD Service: ? Author Type: Physician Type: Progress Notes Filed: 07/05/2024 12:23 Note Text: Chief Complaint Patient presents with: Follow Up HPI Krystyna Khanna is a 89 year old female who presents here today for follow up. Espinoza her son is with her today. Patient was seen in [facility] ER on 06/08/2024 for black stools. No gross hematochezia noted. Here Vitals were stable. Abdominal exam was normal and rectal exam showed no melena or gross blood. Labs showed her Hg was stable, platelets were low, sodium was ok at 135. BUN and creatinine were ok. Chest x-ray was unremarkable. 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 Patient was released from nursing home in the past week. Patient is at home and getting PHYSICAL THERAPY and nursing home at home. She has some weakness and imbalance still and it is a physical hardship for her to get out of the house for Tx. She is getting around with the use of a walker and her son says she is doing much better with this than she had been when she first went into the nursing home facility for rehab. . Office visit 05/30/2024 - hospital follow up Patient was admitted to [facility] on 04/20/2024 and discharged on 05/03/2024 to nursing home for rehab. 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 Known Hx of A. Fib and had been weaned off her Eliquis due to no issues in several years and getting nose bleeds. She was placed on Lipitor 40 mg a day, Aricept 5 mg a day, Eliquis 5 mg twice a day, metoprolol ER 50 mg a day and melatonin 3 mg QHS to aid with sleep. Patient is currently in [facility] nursing home: They just had a meeting this week and plan to keep her for another 4 weeks at this time. She is to f/u wit Dr. Choi for cardiology and Dr. Bonilla for neurology once she is discharged. Carotid US showed less hannah 50% stenosis bilaterally in the internal carotids. Patient has improved with Tx and continues to progress with improvement in her upper left arm and left lower extremity. Has help with walking and using a walker. Past medical history, appointments, medications, allergies reviewed. Previous Medical History PAST MEDICAL HISTORY Diagnosis Date Advance directive discussed with patient 11/20/2021 Packets given 11/20/2021 Atrial fibrillation (HCC) Bilateral knee pain 01/09/2010 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 11/30/2022 Elevated hemoglobin A1c 11/08/2017 Encounter for Medicare annual wellness exam 09/25/2020 Medical B eligibilty date 02/18/2000 Date of last exam 10/25/2020 Hepatitis thinks B History of congestive heart failure History of CVA (cerebrovascular accident) 04/23/2024 04/19/2024: Rt frontoparietal, Lt parietal History of heart attack Hypertension, essential 11/08/2017 Left hemiparesis (HCC) 05/30/2024 Obesity, Class II, BMI 35-39.9 11/08/2017 Osteoarthritis Osteopenia, senile 09/25/2020 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 No further w/u needed and ok to stay on Xarelto Previous Surgical History PAST SURGICAL HISTORY Procedure Laterality Date 2D ECHO (EXEP) 10/28/2020 EF=60%, 1+ TImod alvarez dysf ARTHRP KNE CONDYLEANDPLATU MEDIALANDLAT COMPARTMENTS Left 11/19/2017 Knee replacement, total PAST SURGICAL HISTORY OF 2004 right knee replacement REMV CATARACT EXTRACAP,INSERT LENS Bilateral REVISION OF UPPER EYELID Bilateral 11/21/2021 TUBAL LIGATION Family History FAMILY HISTORY Problem Relation Age of Onset Heart Mother Heart Father Breast Cancer Maternal Aunt Diabetes Maternal Aunt Diabetes Other cousin Cancer Paternal Grandmother stomach Heart Sister Breast Cancer Sister Patient Allergies ALLERGIES Allergen Reactions Darvocet A500 [Prop* Unknown Propoxyphene Unknown Sulfa (Sulfonamide * Other: See Comments didn't feel right, nervousness Current Medications Current Outpatient Medications on File Prior to Visit Medication Sig atorvastatin (LIPITOR) 40 mg tablet Take 1 tablet by mouth once daily. donepezil (ARICEPT) 5 mg tablet Take 1 tablet by mouth daily at bedtime. apixaban (ELIQUIS) 5 mg tab(s) Take 1 tablet by mouth two times a day. melatonin 3 mg tablet Take 1 tablet by mouth daily at bedtime. benzonatate (TESSALON PERLES) 100 mg capsule Take 2 capsules by mouth three times a day as needed for cough. metoprolol succinate ER (TOPROL XL) 50 mg 24 hr tablet Take 1 tablet by mouth once daily. albuterol HFA (PROVENTIL HFA, VENTOLIN HFA) 90 mcg/actuation inhaler Inhale 2 Puffs as instructed every 4 hours as needed for wheezing/shortness of breath. calcium Carbonate 300 mg, 750mg, (TUMS) 300 mg (750 mg) chewable tablet Take 1 tablet by m (more content not included)...[facility]03-19-2025 History of Present illness Narrative* Rufino Erickson MD - 07/05/2024 11:08 AM EDT Chief Complaint Patient presents with: Follow Up HPI Krystyna Khanna is a 89 year old female who presents here today for follow up. Espinoza her son is with her today. Patient was seen in [facility] ER on 06/08/2024 for black stools. No gross hematochezia noted. Here Vitals were stable. Abdominal exam was normal and rectal exam showed no melena or gross blood. Labs showed her Hg was stable, platelets were low, sodium was ok at 135. BUN and creatinine were ok. Chest x-raywas unremarkable. 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 Patient was released from nursing home in the past week. Patient is at home and getting PHYSICALTHERAPY and nursing home at home. She has some weakness and imbalance still and it is a physicalhardship for her to get out of the house for Tx. She is getting around with the use of a walker andher son says she is doing much better with this than she had been when she first went into the [facility] nursing facility for rehab. . Office visit 05/30/2024 - hospital follow up Patient was admitted to [facility] on 04/20/2024 and discharged on 05/03/2024 to nursing home for rehab. 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 Known Hx of Judy Gamboa and had been weaned off her Eliquis due to no issues in several years and getting nose bleeds. She was placed on Lipitor 40 mg a day, Aricept 5 mg a day, Eliquis 5 mg twice a day, metoprolol ER 50 mg a day and melatonin 3mg QHS to aid with sleep. Patient is currently in [facility] nursing home: They just had a meeting this week and plan to keep her for another 4 weeks at this time. She is to f/u wit Dr. Choi for cardiology and Dr. Bonilla for neurology once she is discharged. Carotid US showed less hannah 50% stenosis bilaterally in the internal carotids. Patient has improved with Tx and continues to progress with improvement in her upper left arm and left lower extremity. Has help with walking and using a walker. Past medical history, appointments, medications, allergies reviewed. Previous Medical History PAST MEDICAL HISTORY Diagnosis Date Advance directive discussed with patient 11/20/2021 Packets given 11/20/2021 Atrial fibrillation (HCC) Bilateral knee pain 01/09/2010 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 11/30/2022 Elevated hemoglobin A1c 11/08/2017 Encounter for Medicare annual wellness exam 09/25/2020 Medical B eligibilty date 02/18/2000 Date of last exam 10/25/2020 Hepatitis thinks B History of congestive heart failure History of CVA (cerebrovascular accident) 04/23/2024 04/19/2024: Rt frontoparietal, Lt parietal History of heart attack Hypertension, essential 11/08/2017 Left hemiparesis (HCC) 05/30/2024 Obesity, Class II, BMI 35-39.9 11/08/2017 Osteoarthritis Osteopenia, senile 09/25/2020 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 No further w/u needed and ok to stay on Xarelto Previous Surgical History PAST SURGICAL HISTORY Procedure Laterality Date 2D ECHO (EXEP) 10/28/2020 EF=60%, 1+ TImod alvarez dysf ARTHRP KNE CONDYLE&PLATU MEDIAL&LAT COMPARTMENTS Left 11/19/2017 Knee replacement, total PAST SURGICAL HISTORY OF 2004 right knee replacement REMV CATARACT EXTRACAP,INSERT LENS Bilateral REVISION OF UPPER EYELID Bilateral 11/21/2021 TUBAL LIGATION Family History FAMILY HISTORY Problem Relation Age of Onset Heart Mother Heart Father Breast Cancer Maternal Aunt Diabetes Maternal Aunt Diabetes Other cousin Cancer Paternal Grandmother stomach Heart Sister Breast Cancer Sister Patient Allergies ALLERGIES Allergen Reactions Darvocet A500 [Prop* Unknown Propoxyphene Unknown Sulfa (Sulfonamide * Other: See Comments didn't feel right, nervousness Current Medications Current Outpatient Medications on File Prior to Visit Medication Sig atorvastatin (LIPITOR) 40 mg tablet Take 1 tablet by mouth once daily. donepezil (ARICEPT) 5 mg tablet Take 1 tablet by mouth daily at bedtime. apixaban (ELIQUIS) 5 mg tab(s) Take 1 tablet by mouth two times a day. melatonin 3 mg tablet Take 1 tablet by mouth daily at bedtime. benzonatate (TESSALON PERLES) 100 mg capsule Take 2 capsules by mouth three times a day as needed for cough. metoprolol succinate ER (TOPROL XL) 50 mg 24 hr tablet Take 1 tablet by mouth once daily. albuterol HFA (PROVENTIL HFA, VENTOLIN HFA) 90 mcg/actuation inhaler Inhale 2 Puffs as instructed every 4 hours as needed for wheezing/shortness of breath. calcium Carbonate 300 mg, 750mg, (TUMS) 300 mg (750 mg) chewable tablet Take 1 tablet by mouth twice daily. doxylamine succinate (NITE TIME SLEEP AID ORAL) Take by mouth as directed. Taking Nature's Bounty Sleep 3 as directed loperamide HCl (IMODIUM) 2 mg tab Take 2 mg by mouth as needed. Cholecalciferol, Vitamin D3, (D3-2000) 50 mcg (2,000 unit) cap Take 1 capsule by mouth once daily. multivitamin tablet Take 1 tablet by mouth once daily. acetaminophen (TYLENOL) 500 mg tablet Take 500 mg by mouth every 6 hours as needed. DOCOSAHEXANOIC ACID/EPA (FISH OIL ORAL) Take 1,000 mg by mouth once daily. No current facility-administered medications on file prior to visit. Social History Social History Tobacco Use Smoking status: Never Smokeless tobacco: Never Vaping Use Vaping status: Never Used Substance Use Topics Alcohol use: No Drug use: No Review of Symptoms REVIEW OF SYSTEMS GENERAL: No weight loss, malaise or fevers RESPIRATORY: Negative for hemoptysis, wheezing, COPD, dyspnea or shortness of breath. Still has a cough with mainly phlegm CARDIOVASCULAR: Negative for chest pain, leg swelling, hypertension, CHF or palpitations GI: No nausea, vomiting, or diarrhea and No heartburn or reflux symptoms ENDOCRINE: no symptoms of low BS's NEURO: No history of headaches, syncope, paralysis, seizures or tremors EXAM: BP 102/60 Pulse (!) 55 Resp 16 Wt 76.2 kg (168 lb) SpO2 92% BMI 35.07 kg/m General Appearance: Well appearing, alert, in no acute distress, well-hydrated, well nourished. andObese. Ears: External ears, TM's normal, canals clear. Neck: Supple, no adenopathy; thyroid symmetric, normal size, no bruits. Lungs: Lungs clear to auscultation. No wheezing, rhonchi, rales.. Heart: RRR without murmur, gallop, or rubs. No ectopy. Abdomen: Normal abdominal exam, Abdomen soft, non-tender. Bowel sounds normal. No masses, organomegaly. Extremities: No deformities, edema, skin discoloration. Good capillary refill. . Peripheral Pulses: Normal. Neurologic: Gait normal. Sensation to light touch and crainal nerves 2-12 intact.. Musc: moving all 4 extremities. Strength seems the same on both sides. Health Maintenance List Shingrix Vaccine(1 of 2) Never done RSV Vaccine(1 - 1-dose 75+ series) Never done Covid-19 Vaccine( season) due on 12/19/2023 Advance Directive Discussion due on 04/19/2024 Diabetes Screening due on 11/15/2026 DTaP,Tdap,Td Vaccine(2 - Td or Tdap) due on 11/18/2027 Bone Density Screening Completed Influenza Vaccine Completed Pneumococcal Vaccine: 50+ Completed Data reviewed [place] report from 06/08/2024. A/P ASSESSMENT/PLAN: 1. Hypertension, essential - ICD9: 401.9, ICD10: I10 (primary diagnosis) - Controlled and on the low end - Continue current medications - Decrease metoprolol succinate to 25 mg a day. - Recommend home blood pressure monitoring, to bring results to next visit - Encouraged sodium restriction, DASH or Mediterranean diet - Recommend regular aerobic exercise Check - COMPREHENSIVE METABOLIC PANEL - LIPID PANEL, NONFASTING 2. Elevated hemoglobin A1c - ICD9: 790.29, ICD10: R73.09 Check - HEMOGLOBIN A1C 3. Paroxysmal atrial fibrillation (HCC) - ICD9: 427.31, ICD10: I48.0 Cont metoprolol, and eliquis and f/u with cardio. Check - COMPLETE BLOOD COUNT AND DIFFERENTIAL 4. History of CVA (cerebrovascular accident) - ICD9: V12.54, ICD10: Z86.73 - patient to cont home PHYSICAL THERAPY with [facility]. 5. Left hemiparesis (HCC) - ICD9: 342.90, ICD10: G81.94 - as per #4. Therapy would be beneficial at home due to it being a hardship on her to get out easily. 6. Pseudothrombocytopenia - ICD9: 796.4, ICD10: R89.8 Check - COMPLETE BLOOD COUNT AND DIFFERENTIAL 7. Balance disorder - ICD9: 781.99, ICD10: R26.89 - as per #5 F/u 6 months extensive. I spent a total of 40 minutes on the date of the service which included preparing to see the patient, [id number] patient care, completing clinical documentation, performing a medically appropriate examination, counseling and educating the patient/family/caregiver and ordering medications, tests, or procedures. Rufino Erickson MD [facility] NoteHNO ID: [id number] Author: JOHN GOMEZ MA Service: ? Author Type: Community Nutrition Educator Type: Progress Notes Filed: 06/12/2024 16:26 Note Text: Left message for son Espinoza. Need to find out if patient is still in [facility] for Rehab or has been discharged home. Please Dr. Erickson's notes below. John Gomez [facility]02-24-2025 NoteHNO ID: [id number] Author: RUFINO ERICKSON MD Service: ? Author Type: Physician Type: Progress Notes Filed: 06/12/2024 16:17 Note Text: [facility] then I just need to see her when she is released from there. If she is now in assisted living then yes we should see her this week and get a f/u CBC.[facility]02-24-2025 NoteHNO ID: [id number] Author: JOHN GOMEZ MA Service: ? Author Type: Community Nutrition Educator Type: Progress Notes Filed: 06/12/2024 10:43 Note Text: Scan on 06/08/2024 4:57 PM by ProviderМарина PA-C: Consultation - Emergency Medicine Potential GI bleed. No bleeding upon exam at hospital. Follow up 3-5 days with PCP. Patient was already scheduled for 08/01/2024 for previous hospital/residential discharge. Do you patient seen sooner? John Gomez [facility]02-24-2025 History of Present illness Narrative* John Gomez MA - 06/12/2024 10:40 AM EST Scan on 06/08/2024 4:57 PM by Provider, ROSALINA ParishC: Consultation - Emergency Medicine Potential GI bleed. No bleeding upon exam at hospital. Follow up 3-5 days with PCP. Patient was already scheduled for 08/01/2024 for previous hospital/residential discharge. Do you patient seen sooner? John Gomez MA documented in this [facility]02-[facility]25 Telephone encounter Note * Telephone Encounter - Rufino Erickson MD - 05/31/2024 8:32 PM EST Noted. [facility]02-12-2025 Miscellaneous Notes* Telephone Encounter - Rufino Erickson MD - 05/31/2024 8:32 PM EST Noted. * Telephone Encounter - Nikia Pineda RN - 05/31/2024 2:30 PM EST [facility] to give provider an update since appt yesterday. BP sitting 122/62 BP standing 150/70 Lung sounds are clear with a very occasional bronchial wheeze noted. Mary said for any questions please feel free to reach her at [phone]. Nikia Pineda RN documented in [facility]02-[facility]25 Telephone encounter Note * Telephone Encounter - Nikia Pineda RN - 05/31/2024 2:30 PM EST [facility] calls to give provider an update since appt yesterday. BP sitting 122/62 BP standing 150/70 Lung sounds are clear with a very occasional bronchial wheeze noted. Mary said for any questions please feel free to reach her at [phone]. Nikia Pineda RN [facility]02-11-2025 Instructions* Patient Instructions* Rufino Erickson MD - 05/30/2024 12:11 PM EST Make sure the skilled rehab center helps get appointments set up with Dr. Choi in cardiology, Dr. Bonilla in neurology when they are planing to discharge her. documented in this encounterM[facility]02-11-2025 NoteHNO ID: [id number] Author: RUFINO ERICKSON MD Service: ? Author Type: Physician Type: Progress Notes Filed: 05/30/2024 13:37 Note Text: Chief Complaint Patient presents with: [facility] F/U [facility] Krystyna Khanna is a 89 year old female who presents here today for 6 month follow up. Espinoza her son is with her today. Patient was admitted to [facility] on 04/20/2024 and discharged on 05/03/2024 to nursing home for rehab. 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 Known Hx of Judy Gamboa and had been weaned off her Eliquis due to no issues in several years and getting nose bleeds. She was placed on Lipitor 40 mg a day, Aricept 5 mg a day, Eliquis 5 mg twice a day, metoprolol ER 50 mg a day and melatonin 3 mg QHS to aid with sleep. Patient is currently in [facility] nursing home: They just had a meeting this week and plan to keep her for another 4 weeks at this time. She is to f/u wit Dr. Choi for cardiology and Dr. Bonilla for neurology once she is discharged. Carotid US showed less hannah 50% stenosis bilaterally in the internal carotids. Patient has improved with Tx and continues to progress with improvement in her upper left arm and left lower extremity. Has help with walking and using a walker. Past medical history, appointments, medications, allergies reviewed. Previous Medical History PAST MEDICAL HISTORY Diagnosis Date Advance directive discussed with patient 11/20/2021 Packets given 11/20/2021 Atrial fibrillation (HCC) Bilateral knee pain 01/09/2010 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 11/30/2022 Elevated hemoglobin A1c 11/08/2017 Encounter for Medicare annual wellness exam 09/25/2020 Medical B eligibilty date 02/18/2000 Date of last exam 10/25/2020 Hepatitis thinks B History of congestive heart failure History of CVA (cerebrovascular accident) 04/23/2024 04/19/2024: Rt frontoparietal, Lt parietal History of heart attack Hypertension, essential 11/08/2017 Obesity, Class II, BMI 35-39.9 11/08/2017 Osteoarthritis Osteopenia, senile 09/25/2020 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 No further w/u needed and ok to stay on Xarelto Previous Surgical History PAST SURGICAL HISTORY Procedure Laterality Date 2D ECHO (EXEP) 10/28/2020 EF=60%, 1+ TImod alvarez dysf ARTHRP KNE CONDYLEANDPLATU MEDIALANDLAT COMPARTMENTS Left 11/19/2017 Knee replacement, total PAST SURGICAL HISTORY OF 2004 right knee replacement REMV CATARACT EXTRACAP,INSERT LENS Bilateral REVISION OF UPPER EYELID Bilateral 11/21/2021 TUBAL LIGATION Family History FAMILY HISTORY Problem Relation Age of Onset Heart Mother Heart Father Breast Cancer Maternal Aunt Diabetes Maternal Aunt Diabetes Other cousin Cancer Paternal Grandmother stomach Heart Sister Breast Cancer Sister Patient Allergies ALLERGIES Allergen Reactions Darvocet A500 [Prop* Unknown Propoxyphene Unknown Sulfa (Sulfonamide * Other: See Comments didn't feel right, nervousness Current Medications Current Outpatient Medications on File Prior to Visit Medication Sig benzonatate (TESSALON PERLES) 100 mg capsule Take 2 capsules by mouth three times a day as needed for cough. metoprolol succinate ER (TOPROL XL) 50 mg 24 hr tablet Take 1 tablet by mouth once daily. omeprazole (PRILOSEC) 20 mg capsule Take 1 capsule by mouth daily before breakfast. 1/2 hr before meal. albuterol HFA (PROVENTIL HFA, VENTOLIN HFA) 90 mcg/actuation inhaler Inhale 2 Puffs as instructed every 4 hours as needed for wheezing/shortness of breath. calcium Carbonate 300 mg, 750mg, (TUMS) 300 mg (750 mg) chewable tablet Take 1 tablet by mouth twice daily. doxylamine succinate (NITE TIME SLEEP AID ORAL) Take by mouth as directed. Taking Nature's Bounty Sleep 3 as directed loperamide HCl (IMODIUM) 2 mg tab Take 2 mg by mouth as needed. Cholecalciferol, Vitamin D3, (D3-2000) 50 mcg (2,000 unit) cap Take 1 capsule by mouth once daily. multivitamin tablet Take 1 tablet by mouth once daily. acetaminophen (TYLENOL) 500 mg tablet Take 500 mg by mouth every 6 hours as needed. DOCOSAHEXANOIC ACID/EPA (FISH OIL ORAL) Take 1,000 mg by mouth once daily. No current facility-administered medications on file prior to visit. Social History Social History Tobacco Use Smoking status: Never Smokeless tobacco: Never Vaping Use Vaping status: Never Used Substance Use Topics Alcohol use: No Drug use: No Review of Symptoms REVIEW OF SYSTEMS GENERAL: No weight loss, malaise or fevers RESPIRATORY: Negative for hemoptysis, wheezing, COPD, dyspnea or shortness of breath. Has an occasional cough mostly with clear mucus. CARDIOVASCULAR: Negative for chest pain, hypertension, CHF or palpitations. Has leg swelling and wearing compression socks and has improved. MUSCULOSKELET (more content not included)...[facility]02-11-2025 History of Present illness Narrative* Rufino Erickson MD - 05/30/2024 11:03 AM EST Chief Complaint Patient presents with: Hospital F/U [facility] Krystyna Khanna is a 89 year old female who presents here today for 6 month follow up. Espinoza her son is with her today. Patient was admitted to [facility] on 04/20/2024 and discharged on 05/03/2024 to nursing home for rehab. 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 Known Hx of A. Fib and had been weaned off her Eliquis due to no issues in several years and getting nose bleeds. She was placed on Lipitor 40 mg a day, Aricept 5 mg a day, Eliquis 5 mg twice a day, metoprolol ER 50 mg a day and melatonin 3mg QHS to aid with sleep. Patient is currently in [facility] nursing home: They just had a meeting this week and plan to keep her for another 4 weeks at this time. She is to /u [facility] Dr. Choi for cardiology and Dr. Bonilla for neurology once she is discharged. Carotid US showed less hannah 50% stenosis bilaterally in the internal carotids. Patient has improved with Tx and continues to progress with improvement in her upper left arm and left lower extremity. Has help with walking and using a walker. Past medical history, appointments, medications, allergies reviewed. Previous Medical History PAST MEDICAL HISTORY Diagnosis Date Advance directive discussed with patient 11/20/2021 Packets given 11/20/2021 Atrial fibrillation (HCC) Bilateral knee pain 01/09/2010 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 11/30/2022 Elevated hemoglobin A1c 11/08/2017 Encounter for Medicare annual wellness exam 09/25/2020 Medical B eligibilty date 02/18/2000 Date of last exam 10/25/2020 Hepatitis thinks B History of congestive heart failure History of CVA (cerebrovascular accident) 04/23/2024 04/19/2024: Rt frontoparietal, Lt parietal History of heart attack Hypertension, essential 11/08/2017 Obesity, Class II, BMI 35-39.9 11/08/2017 Osteoarthritis Osteopenia, senile 09/25/2020 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 No further w/u needed and ok to stay on Xarelto Previous Surgical History PAST SURGICAL HISTORY Procedure Laterality Date 2D ECHO (EXEP) 10/28/2020 EF=60%, 1+ TImod alvarez dysf ARTHRP KNE CONDYLE&PLATU MEDIAL&LAT COMPARTMENTS Left 11/19/2017 Knee replacement, total PAST SURGICAL HISTORY OF 2004 right knee replacement REMV CATARACT EXTRACAP,INSERT LENS Bilateral REVISION OF UPPER EYELID Bilateral 11/21/2021 TUBAL LIGATION Family History FAMILY HISTORY Problem Relation Age of Onset Heart Mother Heart Father Breast Cancer Maternal Aunt Diabetes Maternal Aunt Diabetes Other cousin Cancer Paternal Grandmother stomach Heart Sister Breast Cancer Sister Patient Allergies ALLERGIES Allergen Reactions Darvocet A500 [Prop* Unknown Propoxyphene Unknown Sulfa (Sulfonamide * Other: See Comments didn't feel right, nervousness Current Medications Current Outpatient Medications on File Prior to Visit Medication Sig benzonatate (TESSALON PERLES) 100 mg capsule Take 2 capsules by mouth three times a day as needed for cough. metoprolol succinate ER (TOPROL XL) 50 mg 24 hr tablet Take 1 tablet by mouth once daily. omeprazole (PRILOSEC) 20 mg capsule Take 1 capsule by mouth daily before breakfast. 1/2 hr before meal. albuterol HFA (PROVENTIL HFA, VENTOLIN HFA) 90 mcg/actuation inhaler Inhale 2 Puffs as instructed every 4 hours as needed for wheezing/shortness of breath. calcium Carbonate 300 mg, 750mg, (TUMS) 300 mg (750 mg) chewable tablet Take 1 tablet by mouth twice daily. doxylamine succinate (NITE TIME SLEEP AID ORAL) Take by mouth as directed. Taking Nature's Bounty Sleep 3 as directed loperamide HCl (IMODIUM) 2 mg tab Take 2 mg by mouth as needed. Cholecalciferol, Vitamin D3, (D3-2000) 50 mcg (2,000 unit) cap Take 1 capsule by mouth once daily. multivitamin tablet Take 1 tablet by mouth once daily. acetaminophen (TYLENOL) 500 mg tablet Take 500 mg by mouth every 6 hours as needed. DOCOSAHEXANOIC ACID/EPA (FISH OIL ORAL) Take 1,000 mg by mouth once daily. No current facility-administered medications on file prior to visit. Social History Social History Tobacco Use Smoking status: Never Smokeless tobacco: Never Vaping Use Vaping status: Never Used Substance Use Topics Alcohol use: No Drug use: No Review of Symptoms REVIEW OF SYSTEMS GENERAL: No weight loss, malaise or fevers RESPIRATORY: Negative for hemoptysis, wheezing, COPD, dyspnea or shortness of breath. Has an occasional cough mostly with clear mucus. CARDIOVASCULAR: Negative for chest pain, hypertension, CHF or palpitations. Has leg swelling and wearing compression socks and has improved. MUSCULOSKELETAL: has persistent left hemiparesis but markedly improved per son. NEURO: No history of headaches, syncope, paralysis, seizures or tremors EXAM: BP 92/60 Pulse 64 Resp 20 Last 6 Encounter Wt Readings: Date: Wt: 04/07/2024 77 kg (169 lb 12.1 oz) 01/11/2024 78 kg (172 lb) 12/03/2023 78.9 kg (173 lb 15.1 oz) 11/25/2023 78.5 kg (173 lb) 09/07/2023 78.9 kg (174 lb) 08/03/2023 79.8 kg (176 lb) General Appearance: Well appearing, alert, in no acute distress, well-hydrated, well nourished.. Neck: Supple, no adenopathy; thyroid symmetric, normal size, no bruits. Lungs: No wheezing, rhonchi. Has bilateral lower lobe crackles. Heart: RRR without murmur, gallop, or rubs. No ectopy. Abdomen: Normal abdominal exam, Abdomen soft, non-tender. Bowel sounds normal. No masses, organomegaly. Extremities: No deformities, edema, skin discoloration, Good capillary refill. . Health Maintenance List Shingrix Vaccine(1 of 2) Never done RSV Vaccine(1 - 1-dose 75+ series) Never done Covid-19 Vaccine( season) due on 12/19/2023 Advance Directive Discussion due on 04/19/2024 Depression Screening due on 11/24/2024 Anxiety Screening due on 11/24/2024 Diabetes Screening due on 11/15/2026 DTaP,Tdap,Td Vaccine(2 - Td or Tdap) due on 11/18/2027 Bone Density Screening Completed Influenza Vaccine Completed Pneumococcal Vaccine: 50+ Completed Data reviewed A/P ASSESSMENT/PLAN: 1. Thrombocytopenia (HCC) - ICD9: 287.5, ICD10: D69.6 (primary diagnosis) - will need f/u as an out patient but has been chronic. 2. Paroxysmal atrial fibrillation (HCC) - ICD9: 427.31, ICD10: I48.0 - cont current Tx and will need f/u with Cardio, Dr. Choi, after discharge. _ advised Skilled rehab of low BP and that patient should have orthostatics to see if symptomatic because the strength of the Metoprolol may need cut back. 3. History of CVA (cerebrovascular accident) - ICD9: V12.54, ICD10: Z86.73 - cont current Tx. Will need f/u with Neurology, Dr. Bonilla , after discharge. 4. Left hemiparesis (HCC) - ICD9: 342.90, ICD10: G81.94 - patient in skilled rehab and continues to progress. 5. Dementia without behavioral disturbance (HCC) - ICD9: 294.20, ICD10: F03.90 - as per #3 6. Bacterial pneumonia - ICD9: 482.9, ICD10: J15.9 - was treated in hospital. Patient has crackles on lower lung christ[place] bilaterally and advised skilled rehab needs w/u for CHF vs recurrent pneumonia. 7. Hyponatremia - ICD9: 276.1, ICD10: E87.1 - will need f/u once released from skilled care. I spent a total of 47 minutes on the date of the service which included preparing to see the patient, [id number] patient care, completing clinical documentation, performing a medically appropriate examination, counseling and educating the patient/family/caregiver and ordering medications, tests, or procedures. Rufino Erickson MD documented [facility]25 NoteHNO ID: [id number] Author: TIFF HALL LPN Service: ? Author Type: LICENSED NURSE Type: Progress Notes Filed: 05/03/2024 07:32 Note Text: Pt was transferred to nursing home facility. Scan on 05/02/2024 12:29 PM by Марина Olivia PA-C: Discharge Summary Scan on 05/02/2024 11:30 AM by Марина Olivia PA-C: Discharge Summary [facility]01-15-2025 History of Present illness Narrative* Tiff Hall LPN - 05/03/2024 7:27 AM EST Pt was transferred to nursing home facility. Scan on 05/02/2024 12:29 PM by Марина Olivia PA-C: Discharge Summary Scan on 05/02/2024 11:30 AM by Марина Olivia PA-C: Discharge Summary documented in this encounterM[facility]01-[facility]01-06-2025 NoteHNO ID: [id number] Author: JOHN GOMEZ MA Service: ? Author Type: Community Nutrition Educator Type: Progress Notes Filed: 04/24/2024 16:39 Note Text: Scan on 04/21/2024 8:17 AM by Марина Olivia PA-C: Consultation - [facility] History of Present illness Narrative* John Gomez MA - 04/24/2024 4:38 PM EST Scan on 04/21/2024 8:17 AM by Марина Olivia PA-C: Consultation - Emergency Medicine John Gomez MA documented in this encounterM[facility]01-02-[facility]01-02-2025 [facility]01-02-2025 NoteHNO ID: [id number] Author: TIFF HALL LPN Service: ? Author Type: LICENSED NURSE Type: Progress Notes Filed: 04/20/2024 06:57 Note Text: Scan on 04/18/2024 4:01 PM by Марина Olivia PA-C: Consultation - Emergency Medicine Scan on 04/18/2024 4:06 PM by Марина Olivia PA-C Scan on 04/19/2024 10:37 AM by Марина Olivia PA-C: Consultation - Neurology [facility]01-02-2025 History of Present illness Narrative* Tiff Hall LPN - 04/20/2024 6:55 AM EST Scan on 04/18/2024 4:01 PM by ProviderМарина PA-C: Consultation - Emergency Medicine Scan on 04/18/2024 4:06 PM by Марина Olivia PA-C Scan on 04/19/2024 10:37 AM by Марина Olivia PA-C: Consultation - Neurology documented in this encounterM[facility]12-31-[facility]24 Telephone encounter Note * Telephone Encounter - Nikia Pineda RN - 04/18/2024 11:06 AM EST WILLIAM Son (Espinoza) calls to report that patient's condition has declined rapidly from appointment with Lulu yesterday. Espinoza reports that patient was able to stand and transfer and walk yesterday with a walker. Today,he reports that patient is not able to bear any weight and he is not able to transfer her. He reports her as like a wet noodle and just collapses. Espinoza feels that patient needs to go to the ER ijeoma is not rosa to assist patient to transfer. Agree with Espinoza since condition is declining rapidly. Espinoza reports he is going to call the squad. Nothing further needed. Closing TE. Son wanted Lulu to know patient is going back to ER. Nikia Pineda RN [facility]12-31-[facility] Miscellaneous Notes* Telephone Encounter - Nikia Pineda RN - 04/18/2024 11:06 AM EST WILLIAM Son (Espinoza) calls to report that patient's condition has declined rapidly from appointment with Lulu yesterday. Espinoza reports that patient was able to stand and transfer and walk yesterday with a walker. Today,he reports that patient is not able to bear any weight and he is not able to transfer her. He reports her as like a wet noodle and just collapses. Espinoza feels that patient needs to go to the ER ijeoma is not rosa to assist patient to transfer. Agree with Espinoza since condition is declining rapidly. Espinoza reports he is going to call the squad. Nothing further needed. Closing TE. Son wanted Lulu to know patient is going back to ER. Nikia Pineda, RN documented in this encounterM[facility] Hospital12-31-2024 Telephone encounter Note * Telephone Encounter - Sahara Lockett PSS - 04/18/2024 10:54 AM EST Date/Time: 04/18/2024 10:54 AM Spoke with Espinoza Khanna (Son) @ phone #: - Preferred # for contact: Espinoza Khanna (Son) Have you received help from a home care company in the last 60 days? no Are you agreeable to [facility] services? yes What address will we be seeing you at? [address] [place] [id number] Do you have any upcoming appointments or things we need to schedule around? No appointment , but may go the ER Do you have a teachable CG or can you manage your care independently? yes Who? Espinoza Khanna (Son) Have you received the flu shot? no If so, when and where? na [facility]12-31-2024 Miscellaneous Notes* Telephone Encounter - Sahara Lockett PSS - 04/18/2024 10:54 AM EST Date/Time: 04/18/2024 10:54 AM Spoke with Espinoza Khanna (Son) @ phone #: - Preferred # for contact: Espinoza Khanna (Son) Have you received help from a home care company in the last 60 days? no Are you agreeable to [facility] services? yes What address will we be seeing you at? [address] [facility] [address] Do you have any upcoming appointments or things we need to schedule around? No appointment , but may go the ER Do you have a teachable CG or can you manage your care independently? yes Who? Espinoza Khanna (Son) Have you received the flu shot? no If so, when and where? na documented in this encounterM[facility]12-31-2024 Telephone encounter Note * Telephone Encounter - Tracie Parker LPN - 04/18/2024 9:45 AM EST Lulu Staton APRN.CNP Thank you for the referral. Our first available date for a therapy start of care is 04/25/24. Please let us know if this is acceptable for you and the patient. If so, we will process the referral. If this date is not acceptable, we recommend referring this patient to another home health agency. Thank you , Tracie Parker LPN Below are two agencies that offer similar services in the patient's area. [facility]) [address] [place] [address], [place] [address] [facility] [address] [place] [id number] [facility] Work Phone: [phone] 407-561812-31-2024 Miscellaneous Notes* Telephone Encounter - Tracie Parker LPN - 04/18/2024 9:45 AM EST Lulu Staton APRN.CNP Thank you for the referral. Our first available date for a therapy start of care is 04/25/24. Please let us know if this is acceptable for you and the patient. If so, we will process the referral. If this date is not acceptable, we recommend referring this patient to another home health agency. Thank you , Tracie Parker LPN Below are two agencies that offer similar services in the patient's area. [facility] ([facility]) [address] [address] [facility] [address] [place], [place] [id number] documented in this encounterM[facility]12-30-2024 Telephone encounter Note * Telephone Encounter - Pau Grady LPN - 04/17/2024 3:05 PM EST Okay thank you, Also after further review we would need the visit note updated to correlate weakness is due to RSV. Please let us know when updated. Thank you, Pau Grady LPN [facility] Work Phone: [phone] 212-912412-30-2024 Miscellaneous Notes* Telephone Encounter - Pau Grady LPN - 04/17/2024 3:05 PM EST Okay thank you, Also after further review we would need the visit note updated to correlate weakness is due to RSV. Please let us know when updated. Thank you, Pau Grady LPN * Telephone Encounter - Lulu Staton APRN.KRISTINE - 04/17/2024 10:39 AM EST No nursing home needs. Patient is having weakness following hospitalization and RSV. * Telephone Encounter - Pau Grady LPN - 04/17/2024 10:29 AM EST Thank you for the referral for Krystyna Khanna to receive home care services through [facility]. Based off diagnosis patient would benefit from SN services, can SN be added to C orders/office note? Per CMS guidelines your office note needs to include a discussion of HHC with the following: - why is HHC needed - why is the patient homebound - what is the diagnosis that C is seeing the patient for. Thank you, Pau Grady LPN documented in this encounterM[facility]12-30-2024 Telephone encounter Note * Telephone Encounter - Ashli Reyes LPN - 04/17/2024 11:47 AM EST PATIENT NOTIFIED OF SAME. [facility]12-30-2024 Miscellaneous Notes* Telephone Encounter - Ashli Reyes LPN - 04/17/2024 11:47 AM EST PATIENT NOTIFIED OF SAME. * Telephone Encounter - Antoinette Serrano MA - 04/17/2024 10:57 AM EST Left message for patient to return call to office Antoinette Serrano MA * Telephone Encounter - Lulu Staton APRN.CNP - 04/17/2024 10:43 AM EST Please let patient know their xray is normal. documented in this encounterM[facility] Hospital12-30-2024 Telephone encounter Note * Telephone Encounter - Antoinette Serrano MA - 04/17/2024 10:57 AM EST Left message for patient to return call to office Antoinette Serrano MA [facility]12-30-2024 Telephone encounter Note* Telephone Encounter - Lulu Staton APRN.CNP - 04/17/2024 10:43 AM EST Please let patient know their xray is normal. [facility]12-30-20[facility] Telephone encounter Note* Telephone Encounter - Lulu Staton APRN.CNP - 04/17/2024 10:39 AM EST No nursing home needs. Patient is having weakness following hospitalization and RSV. [facility]12-30-2024 Telephone encounter Note* Telephone Encounter - Pau Grady LPN - 04/17/2024 10:29 AM EST Thank you for the referral for Krystyna Khanna to receive home care services through [facility]. Based off diagnosis patient would benefit from SN services, can SN be added to [facility] orders/office note? Per CMS guidelines your office note needs to include a discussion of HHC with the following: - why is HHC needed - why is the patient homebound - what is the diagnosis that [facility] is seeing the patient for. Thank you, Pau Grady LPN [facility]12-30-2024 History of Present illness Narrative* Cindy Khoury, (R) - 04/17/2024 9:50 AM EST Radiology Service Progress Note PATIENT NAME: Krystyna Khanna DATE OF SERVICE: April 17, 2024 TIME: 9:59 AM PATIENT IDENTITY VERIFICATION COMPLETED USING TWO (2) IDENTIFIERS: Name and Date of confirmedby patient verbally. FALL SCREENING: Has the patient had 2 falls in the last year or 1 fall with injury or currently using an Ambulatory Assistive Device (Walker, Cane, Wheelchair, Crutches, etc.)? Yes, Patient High Riskfor Falls What interventions were put in place to prevent falls during this visit? Offered Assistance with Transfers/Clothing, Instructed Patient to Remain Seated (Not on Exam Table) Until Exam, and Increased Observations by Caregivers PATIENT GENDER DATA: Female. status: : No status: NO. PATIENT RELEVANT IMPLANT DATA REVIEWED: Yes PATIENT PRESENTS WITH AN IMPLANTABLE OR ATTACHED IT SERVICE TECHNICIAN: No RADIOLOGY DEPARTMENT: General X-ray: Exam(s) Completed: Chest X-Ray PERIPHERAL IV DATA: Not applicable SIGNED BY: RT Joya(R) April 17, 2024 9:59 AM documented in this encounterMorrow [facility] Hospital12-30-2024 NoteHNO ID: [id number] Author: CINDY KHOURY RT(R) Service: ? Author Type: Front Office Manager Type: Progress Notes Filed: 04/17/2024 10:12 Note Text: Radiology Service Progress Note PATIENT NAME: Krystyna Khanna DATE OF SERVICE: April 17, 2024 TIME: 9:59 AM PATIENT IDENTITY VERIFICATION COMPLETED USING TWO (2) IDENTIFIERS: Name and Date of confirmed by patient verbally. FALL SCREENING: Has the patient had 2 falls in the last year or 1 fall with injury or currently using an Ambulatory Assistive Device (Walker, Cane, Wheelchair, Crutches, etc.)? Yes, Patient High Risk for Falls What interventions were put in place to prevent falls during this visit? Offered Assistance with Transfers/Clothing, Instructed Patient to Remain Seated (Not on Exam Table) Until Exam, and Increased Observations by Caregivers PATIENT GENDER DATA: Female. status: : No status: NO. PATIENT RELEVANT IMPLANT DATA REVIEWED: Yes PATIENT PRESENTS WITH AN IMPLANTABLE OR ATTACHED IT SERVICE TECHNICIAN: No RADIOLOGY DEPARTMENT: General X-ray: Exam(s) Completed: Chest X-Ray PERIPHERAL IV DATA: Not applicable SIGNED BY: RT Joya(R) April 17, 2024 9:59 [facility]12-30-2024 NoteHNO ID: [id number] Author: LULU STATON APRN.CYLINDER BLOCK MECHANIC Service: ? Author Type: Nurse Practitioner Type: Progress Notes Filed: 04/17/2024 15:26 Note Text: Chief Complaint Patient presents with: Hospital F/U: RSV HPI Krystyna Khanna is a 89 year old female who presents here today for Above Complaints.. Patient presents for hospital follow up for RSV. Patient was admitted from 04/07 to 04/09 for RSV with Hypoxia. Patient max O2 use was 2L n/c. Patient declined PT/OT in hospital as she was getting around as she normally does but since being home has found her strength and stamina have decreased. Past medical history, appointments, medications, allergies reviewed. Previous Medical History PAST MEDICAL HISTORY Diagnosis Date Advance directive discussed with patient 11/20/2021 Packets given 11/20/2021 Atrial fibrillation (HCC) Bilateral knee pain 01/09/2010 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 11/30/2022 Elevated hemoglobin A1c 11/08/2017 Encounter for Medicare annual wellness exam 09/25/2020 Medical B eligibilty date 02/18/2000 Date of last exam 10/25/2020 Hepatitis thinks B History of congestive heart failure History of heart attack Hypertension, essential 11/08/2017 Obesity, Class II, BMI 35-39.9 11/08/2017 Osteoarthritis Osteopenia, senile 09/25/2020 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 No further w/u needed and ok to stay on Xarelto Previous Surgical History PAST SURGICAL HISTORY Procedure Laterality Date 2D ECHO (EXEP) 10/28/2020 EF=60%, 1+ TImod alvarez dysf ARTHRP KNE CONDYLEANDPLATU MEDIALANDLAT COMPARTMENTS Left 11/19/2017 Knee replacement, total PAST SURGICAL HISTORY OF 2004 right knee replacement REMV CATARACT EXTRACAP,INSERT LENS Bilateral REVISION OF UPPER EYELID Bilateral 11/21/2021 TUBAL LIGATION Family History FAMILY HISTORY Problem Relation Age of Onset Heart Mother Heart Father Breast Cancer Maternal Aunt Diabetes Maternal Aunt Diabetes Other cousin Cancer Paternal Grandmother stomach Heart Sister Breast Cancer Sister Patient Allergies ALLERGIES Allergen Reactions Darvocet A500 [Prop* Unknown Propoxyphene Unknown Sulfa (Sulfonamide * Other: See Comments didn't feel right, nervousness Current Medications Current Outpatient Medications on File Prior to Visit Medication Sig benzonatate (TESSALON PERLES) 100 mg capsule Take 2 capsules by mouth three times a day as needed for cough. metoprolol succinate ER (TOPROL XL) 50 mg 24 hr tablet Take 1 tablet by mouth once daily. omeprazole (PRILOSEC) 20 mg capsule Take 1 capsule by mouth daily before breakfast. 1/2 hr before meal. albuterol HFA (PROVENTIL HFA, VENTOLIN HFA) 90 mcg/actuation inhaler Inhale 2 Puffs as instructed every 4 hours as needed for wheezing/shortness of breath. calcium Carbonate 300 mg, 750mg, (TUMS) 300 mg (750 mg) chewable tablet Take 1 tablet by mouth twice daily. doxylamine succinate (NITE TIME SLEEP AID ORAL) Take by mouth as directed. Taking Nature's Bounty Sleep 3 as directed loperamide HCl (IMODIUM) 2 mg tab Take 2 mg by mouth as needed. Cholecalciferol, Vitamin D3, (D3-2000) 50 mcg (2,000 unit) cap Take 1 capsule by mouth once daily. multivitamin tablet Take 1 tablet by mouth once daily. acetaminophen (TYLENOL) 500 mg tablet Take 500 mg by mouth every 6 hours as needed. DOCOSAHEXANOIC ACID/EPA (FISH OIL ORAL) Take 1,000 mg by mouth once daily. No current facility-administered medications on file prior to visit. Social History Social History Tobacco Use Smoking status: Never Smokeless tobacco: Never Vaping Use Vaping status: Never Used Substance Use Topics Alcohol use: No Drug use: No Review of Symptoms REVIEW OF SYSTEMS SEE HPI EXAM: BP 146/72 Pulse (!) 56 Resp 18 SpO2 95% General Appearance: Well appearing, alert, in no acute distress, well-hydrated, well nourished. Lungs: Positive findings: rhonchi Shortness of breath: At rest Cough. Heart: RRR without murmur, gallop, or rubs. No ectopy. Musculoskeletal: No joint swelling, deformity, or tenderness. Peripheral Pulses: Normal. Health Maintenance List Shingrix Vaccine(1 of 2) Never done RSV Vaccine(1 - 1-dose 75+ series) Never done Influenza Vaccine(1) due on 12/19/2023 Covid-19 Vaccine( season) due on 12/19/2023 Depression Screening due on 11/24/2024 Anxiety Screening due on 11/24/2024 Diabetes Screening due on 11/15/2026 DTaP,Tdap,Td Vaccine(2 - Td or Tdap) due on 11/18/2027 Bone Density Screening Completed Advance Directive Discussion Completed Pneumococcal Vaccine: 50+ Completed ASSESSMENT/PLAN: 1. Generalized weakness - ICD9: 780.79, ICD10: R53.1 (primary diagnosis) Discussed with patient weakness and decreased endurance secondary to recent RSV and hospitalization since being home and recommend HHC for PT to recover strength and stamina. Patient and son agreeable to PT. - CONSU (more content not included)...[facility]12-30-2024 History of Present illness Narrative* Lulu Staton, PHI.CYLINDER BLOCK MECHANIC - 04/17/2024 8:55 AM EST Chief Complaint Patient presents with: Hospital F/U: RSV HPI Krystyna Khanna is a 89 year old female who presents here today for Above Complaints.. Patient presents for hospital follow up for RSV. Patient was admitted from 04/07 to 04/09 for RSV with Hypoxia. Patient max O2 use was 2L n/c. Patient declined PT/OT in hospital as she was getting around as she normally does. Past medical history, appointments, medications, allergies reviewed. Previous Medical History PAST MEDICAL HISTORY Diagnosis Date Advance directive discussed with patient 11/20/2021 Packets given 11/20/2021 Atrial fibrillation (HCC) Bilateral knee pain 01/09/2010 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 11/30/2022 Elevated hemoglobin A1c 11/08/2017 Encounter for Medicare annual wellness exam 09/25/2020 Medical B eligibilty date 02/18/2000 Date of last exam 10/25/2020 Hepatitis thinks B History of congestive heart failure History of heart attack Hypertension, essential 11/08/2017 Obesity, Class II, BMI 35-39.9 11/08/2017 Osteoarthritis Osteopenia, senile 09/25/2020 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 No further w/u needed and ok to stay on Xarelto Previous Surgical History PAST SURGICAL HISTORY Procedure Laterality Date 2D ECHO (EXEP) 10/28/2020 EF=60%, 1+ TImod alvarez dysf ARTHRP KNE CONDYLE&PLATU MEDIAL&LAT COMPARTMENTS Left 11/19/2017 Knee replacement, total PAST SURGICAL HISTORY OF 2004 right knee replacement REMV CATARACT EXTRACAP,INSERT LENS Bilateral REVISION OF UPPER EYELID Bilateral 11/21/2021 TUBAL LIGATION Family History FAMILY HISTORY Problem Relation Age of Onset Heart Mother Heart Father Breast Cancer Maternal Aunt Diabetes Maternal Aunt Diabetes Other cousin Cancer Paternal Grandmother stomach Heart Sister Breast Cancer Sister Patient Allergies ALLERGIES Allergen Reactions Darvocet A500 [Prop* Unknown Propoxyphene Unknown Sulfa (Sulfonamide * Other: See Comments didn't feel right, nervousness Current Medications Current Outpatient Medications on File Prior to Visit Medication Sig benzonatate (TESSALON PERLES) 100 mg capsule Take 2 capsules by mouth three times a day as needed for cough. metoprolol succinate ER (TOPROL XL) 50 mg 24 hr tablet Take 1 tablet by mouth once daily. omeprazole (PRILOSEC) 20 mg capsule Take 1 capsule by mouth daily before breakfast. 1/2 hr before meal. albuterol HFA (PROVENTIL HFA, VENTOLIN HFA) 90 mcg/actuation inhaler Inhale 2 Puffs as instructed every 4 hours as needed for wheezing/shortness of breath. calcium Carbonate 300 mg, 750mg, (TUMS) 300 mg (750 mg) chewable tablet Take 1 tablet by mouth twice daily. doxylamine succinate (NITE TIME SLEEP AID ORAL) Take by mouth as directed. Taking Nature's Bounty Sleep 3 as directed loperamide HCl (IMODIUM) 2 mg tab Take 2 mg by mouth as needed. Cholecalciferol, Vitamin D3, (D3-2000) 50 mcg (2,000 unit) cap Take 1 capsule by mouth once daily. multivitamin tablet Take 1 tablet by mouth once daily. acetaminophen (TYLENOL) 500 mg tablet Take 500 mg by mouth every 6 hours as needed. DOCOSAHEXANOIC ACID/EPA (FISH OIL ORAL) Take 1,000 mg by mouth once daily. No current facility-administered medications on file prior to visit. Social History Social History Tobacco Use Smoking status: Never Smokeless tobacco: Never Vaping Use Vaping status: Never Used Substance Use Topics Alcohol use: No Drug use: No Review of Symptoms REVIEW OF SYSTEMS SEE HPI EXAM: BP 146/72 Pulse (!) 56 Resp 18 SpO2 95% General Appearance: Well appearing, alert, in no acute distress, well-hydrated, well nourished. Lungs: Positive findings: rhonchi Shortness of breath: At rest Cough. Heart: RRR without murmur, gallop, or rubs. No ectopy. Musculoskeletal: No joint swelling, deformity, or tenderness. Peripheral Pulses: Normal. Health Maintenance List Shingrix Vaccine(1 of 2) Never done RSV Vaccine(1 - 1-dose 75+ series) Never done Influenza Vaccine(1) due on 12/19/2023 Covid-19 Vaccine( season) due on 12/19/2023 Depression Screening due on 11/24/2024 Anxiety Screening due on 11/24/2024 Diabetes Screening due on 11/15/2026 DTaP,Tdap,Td Vaccine(2 - Td or Tdap) due on 11/18/2027 Bone Density Screening Completed Advance Directive Discussion Completed Pneumococcal Vaccine: 50+ Completed ASSESSMENT/PLAN: 1. Generalized weakness - ICD9: 780.79, ICD10: R53.1 (primary diagnosis) Discussed with patient weakness and decreased endurance since being home and recommend [facility] for PT to recover strength and stamina. Patient and son agreeable to PT. - CONSULT TO [facility] AT HOME 2. RSV (acute bronchiolitis due to respiratory syncytial virus) - ICD9: 466.11, ICD10: J21.0 - CONSULT TO [facility] AT HOME - XR CHEST 2V FRONTAL/LAT Lulu Staton APRN.[employer]LINDER [employer] MECHANIC documented in this encounterM[facility]12-22-[facility]24 [facility]12-20[facility]2024 NoteHNO ID: [id number] Author: ULICES MOYA APRN.CYLINDER [employer] MECHANIC Service: ? Author Type: Nurse Practitioner Type: Progress Notes Filed: 04/07/2024 16:59 Note Text: Subjective HPI HPI Krystyna Khanna is a 89 year old female who presents today for CC of cough, wheeze, sob. This started 4 days ago. Denies hx of asthma, nonsmoker .Patient presents with: Cough: Wheeze, SOB, chest congestion, yellow phlegm, x 4 days PAST MEDICAL HISTORY Diagnosis Date Advance directive discussed with patient 11/20/2021 Packets given 11/20/2021 Atrial fibrillation (HCC) Bilateral knee pain 01/09/2010 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 11/30/2022 Elevated hemoglobin A1c 11/08/2017 Encounter for Medicare annual wellness exam 09/25/2020 Medical B eligibilty date 02/18/2000 Date of last exam 10/25/2020 Hepatitis thinks B History of congestive heart failure History of heart attack Hypertension, essential 11/08/2017 Obesity, Class II, BMI 35-39.9 11/08/2017 Osteoarthritis Osteopenia, senile 09/25/2020 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 No further w/u needed and ok to stay on Xarelto PAST SURGICAL HISTORY Procedure Laterality Date 2D ECHO (EXEP) 10/28/2020 EF=60%, 1+ TImod alvarez dysf ARTHRP KNE CONDYLEANDPLATU MEDIALANDLAT COMPARTMENTS Left 11/19/2017 Knee replacement, total PAST SURGICAL HISTORY OF 2004 right knee replacement REMV CATARACT EXTRACAP,INSERT LENS Bilateral REVISION OF UPPER EYELID Bilateral 11/21/2021 TUBAL LIGATION ALLERGIES Darvocet A500 [Propoxyphene N-Acetaminophen], Propoxyphene, and Sulfa (Sulfonamide Antibiotics) MEDICATIONS benzonatate (TESSALON PERLES) 100 mg capsuleTake 2 capsules by mouth three times a day as needed for cough.Disp: 60 capsuleRfl: 1 metoprolol succinate ER (TOPROL XL) 50 mg 24 hr tabletTake 1 tablet by mouth once daily.Disp: 90 tabletRfl: 1 omeprazole (PRILOSEC) 20 mg capsuleTake 1 capsule by mouth daily before breakfast. 1/2 hr before meal.Disp: 30 capsuleRfl: 1 albuterol HFA (PROVENTIL HFA, VENTOLIN HFA) 90 mcg/actuation inhalerInhale 2 Puffs as instructed every 4 hours as needed for wheezing/shortness of breath.Disp: 1 EachRfl: 0 calcium Carbonate 300 mg, 750mg, (TUMS) 300 mg (750 mg) chewable tabletTake 1 tablet by mouth twice daily.Disp: Rfl: doxylamine succinate (NITE TIME SLEEP AID ORAL)Take by mouth as directed. Taking Nature's Bounty Sleep 3 as directedDisp: Rfl: loperamide HCl (IMODIUM) 2 mg tabTake 2 mg by mouth as needed.Disp: Rfl: Cholecalciferol, Vitamin D3, (D3-2000) 50 mcg (2,000 unit) capTake 1 capsule by mouth once daily.Disp: Rfl: multivitamin tabletTake 1 tablet by mouth once daily.Disp: Rfl: acetaminophen (TYLENOL) 500 mg tabletTake 500 mg by mouth every 6 hours as needed.Disp: Rfl: DOCOSAHEXANOIC ACID/EPA (FISH OIL ORAL)Take 1,000 mg by mouth once daily.Disp: Rfl: FAMILY HISTORY Problem Relation Age of Onset Heart Mother Heart Father Breast Cancer Maternal Aunt Diabetes Maternal Aunt Diabetes Other cousin Cancer Paternal Grandmother stomach Heart Sister Breast Cancer Sister Social History Tobacco Use Smoking status: Never Smokeless tobacco: Never Vaping Use Vaping status: Never Used Substance Use Topics Alcohol use: No Drug use: No ROS Objective Blood pressure 121/88, pulse 62, temperature 36.7 ?C (98 ?F), resp. rate 26, weight 77 kg (169 lb 12.1 oz), SpO2 92%. Physical Exam Constitutional: General: She is not in acute distress. Appearance: She is not toxic-appearing or diaphoretic. HENT: Head: Normocephalic and atraumatic. Cardiovascular: Rate and Rhythm: Normal rate and regular rhythm. Heart sounds: Normal heart sounds, S1 normal and S2 normal. Pulmonary: Effort: Accessory muscle usage present. Breath sounds: Wheezing (scattered bilat) and rhonchi (scattered bilat) present. No decreased breath sounds or rales. Comments: After neb treatment breath sounds and respiratory effort unchanged/poor Neurological: Mental Status: She is alert and oriented to person, place, and time. Gait: Gait is intact. ASSESSMENT/PLAN: 1. Trouble breathing - ICD9: 786.09, ICD10: R06.89 (primary diagnosis) No improvement with nebulizer treatment I will refer to Er. Family to drive to [facility], unclear what ER will go to at this time. 2. Rhonchi - ICD9: 786.7, ICD10: R09.89 - ALBUTEROL SULFATE 2.5 MG/3 ML (0.083 %) SOLUTION FOR NEBULIZATION - no improvement in respiration or vs. Ulices Moya [facility]N.[facility] History of Present illness Narrative* Ulices Moya APRN.[employer]LINDER [employer] MECHANIC - 04/07/2024 4:55 PM EST Subjective HPI HPI Krystyna Khanna is a 89 year old female who presents today for CC of cough, wheeze, sob. This started 4 days ago. Denies hx of asthma, nonsmoker .Patient presents with: Cough: Wheeze, SOB, chest congestion, yellow phlegm, x 4 days PAST MEDICAL HISTORY Diagnosis Date Advance directive discussed with patient 11/20/2021 Packets given 11/20/2021 Atrial fibrillation (HCC) Bilateral knee pain 01/09/2010 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 11/30/2022 Elevated hemoglobin A1c 11/08/2017 Encounter for Medicare annual wellness exam 09/25/2020 Medical B eligibilty date 02/18/2000 Date of last exam 10/25/2020 Hepatitis thinks B History of congestive heart failure History of heart attack Hypertension, essential 11/08/2017 Obesity, Class II, BMI 35-39.9 11/08/2017 Osteoarthritis Osteopenia, senile 09/25/2020 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 No further w/u needed and ok to stay on Xarelto PAST SURGICAL HISTORY Procedure Laterality Date 2D ECHO (EXEP) 10/28/2020 EF=60%, 1+ TImod alvarez dysf ARTHRP KNE CONDYLE&PLATU MEDIAL&LAT COMPARTMENTS Left 11/19/2017 Knee replacement, total PAST SURGICAL HISTORY OF 2004 right knee replacement REMV CATARACT EXTRACAP,INSERT LENS Bilateral REVISION OF UPPER EYELID Bilateral 11/21/2021 TUBAL LIGATION ALLERGIES Darvocet A500 [Propoxyphene N-Acetaminophen], Propoxyphene, and Sulfa (Sulfonamide Antibiotics) MEDICATIONS benzonatate (TESSALON PERLES) 100 mg capsule^Take 2 capsules by mouth three times a day as needed for cough.^Disp: 60 capsule^Rfl: 1 metoprolol succinate ER (TOPROL XL) 50 mg 24 hr tablet^Take 1 tablet by mouth once daily.^Disp: 90 tablet^Rfl: 1 omeprazole (PRILOSEC) 20 mg capsule^Take 1 capsule by mouth daily before breakfast. 1/2 hr before meal.^Disp: 30 capsule^Rfl: 1 albuterol HFA (PROVENTIL HFA, VENTOLIN HFA) 90 mcg/actuation inhaler^Inhale 2 Puffs as instructed every 4 hours as needed for wheezing/shortness of breath.^Disp: 1 Each^Rfl: 0 calcium Carbonate 300 mg, 750mg, (TUMS) 300 mg (750 mg) chewable tablet^Take 1 tablet by mouth twice daily.^Disp: ^Rfl: doxylamine succinate (NITE TIME SLEEP AID ORAL)^Take by mouth as directed. Taking Nature's Bounty Sleep 3 as directed^Disp: ^Rfl: loperamide HCl (IMODIUM) 2 mg tab^Take 2 mg by mouth as needed.^Disp: ^Rfl: Cholecalciferol, Vitamin D3, (D3-2000) 50 mcg (2,000 unit) cap^Take 1 capsule by mouth once daily.^Disp: ^Rfl: multivitamin tablet^Take 1 tablet by mouth once daily.^Disp: ^Rfl: acetaminophen (TYLENOL) 500 mg tablet^Take 500 mg by mouth every 6 hours as needed.^Disp: ^Rfl: DOCOSAHEXANOIC ACID/EPA (FISH OIL ORAL)^Take 1,000 mg by mouth once daily.^Disp: ^Rfl: FAMILY HISTORY Problem Relation Age of Onset Heart Mother Heart Father Breast Cancer Maternal Aunt Diabetes Maternal Aunt Diabetes Other cousin Cancer Paternal Grandmother stomach Heart Sister Breast Cancer Sister Social History Tobacco Use Smoking status: Never Smokeless tobacco: Never Vaping Use Vaping status: Never Used Substance Use Topics Alcohol use: No Drug use: No ROS Objective Blood pressure 121/88, pulse 62, temperature 36.7 C (98 F), resp. rate 26, weight 77 kg (169 lb 12.1 oz), SpO2 92%. Physical Exam Constitutional: General: She is not in acute distress. Appearance: She is not toxic-appearing or diaphoretic. HENT: Head: Normocephalic and atraumatic. Cardiovascular: Rate and Rhythm: Normal rate and regular rhythm. Heart sounds: Normal heart sounds, S1 normal and S2 normal. Pulmonary: Effort: Accessory muscle usage present. Breath sounds: Wheezing (scattered bilat) and rhonchi (scattered bilat) present. No decreased breath sounds or rales. Comments: After neb treatment breath sounds and respiratory effort unchanged/poor Neurological: Mental Status: She is alert and oriented to person, place, and time. Gait: Gait is intact. ASSESSMENT/PLAN: 1. Trouble breathing - ICD9: 786.09, ICD10: R06.89 (primary diagnosis) No improvement with nebulizer treatment I will refer to Er. Family to drive to [facility], unclear what ER will go to at this time. 2. Rhonchi - ICD9: 786.7, ICD10: R09.89 - ALBUTEROL SULFATE 2.5 MG/3 ML (0.083 %) SOLUTION FOR NEBULIZATION - no improvement in respirationor vsRoney Moya APRN.CYLINDER BLOCK MECHANIC documented in this encounterM[facility]11-01-2024 Telephone encounter Note * Telephone Encounter - Daniela Emery - 02/18/2024 9:43 AM EDT Prescription Refill Information The patient has been identified by name and date of : Yes Caregiver verified no other encounters exist for this prescription request: Yes Caregiver confirmed with patient/requestor that no other refills are due, in the near future, with this provider at this time: Yes The last office visit in the department: 01-11-24 Does the patient have a future office visit with this provider/department: Yes 05-30-24 Requested Prescriptions Pending Prescriptions Disp Refills benzonatate (TESSALON PERLES) 100 mg capsule 60 capsule 1 Sig: Take 2 capsules by mouth three times a day as needed for cough. Daniela Galicia February 18, 2024 9:45 AM [facility]11-01-2024 Miscellaneous Notes* Telephone Encounter - Daniela Emery - 02/18/2024 9:43 AM EDT Prescription Refill Information The patient has been identified by name and date of : Yes Caregiver verified no other encounters exist for this prescription request: Yes Caregiver confirmed with patient/requestor that no other refills are due, in the near future, with this provider at this time: Yes The last office visit in the department: 01-11-24 Does the patient have a future office visit with this provider/department: Yes 05-30-24 Requested Prescriptions Pending Prescriptions Disp Refills benzonatate (TESSALON PERLES) 100 mg capsule 60 capsule 1 Sig: Take 2 capsules by mouth three times a day as needed for cough. Daniela Galicia February 18, 2024 9:45 AM documented in this encounterM[facility]09-24-2024 Telephone encounter Note * Telephone Encounter - Tiff Hall LPN - 01/11/2024 11:12 AM EDT Patient notified of results and provider's instructions. Patient verbalizes understanding. Tiff Hall LPN [facility]09-24-2024 Miscellaneous Notes* Telephone Encounter - Tiff Hall LPN - 01/11/2024 11:12 AM EDT Patient notified of results and provider's instructions. Patient verbalizes understanding. Tiff Hall LPN * Telephone Encounter - Rufino Erickson MD - 01/11/2024 10:46 AM EDT Let patient know chest x-ray was ok. Advise her to still take the antibiotic. documented in this encounterM[facility]09-24-2024 Telephone encounter Note * Telephone Encounter - Rufino Erickson MD - 01/11/2024 10:46 AM EDT Let patient know chest x-ray was ok. Advise her to still take the antibiotic. [facility]-24-[facility] History of Present illness Narrative* Sushil Mallory, RT(R) - 01/11/2024 10:30 AM EDT Radiology Service Progress Note PATIENT NAME: Krystyna Khanna DATE OF SERVICE: January 11, 2024 TIME: 10:29 AM PATIENT IDENTITY VERIFICATION COMPLETED USING TWO (2) IDENTIFIERS: Name and Date of confirmedby patient verbally. FALL SCREENING: Has the patient had 2 falls in the last year or 1 fall with injury or currently using an Ambulatory Assistive Device (Walker, Cane, Wheelchair, Crutches, etc.)? Yes, Patient High Riskfor Falls What interventions were put in place to prevent falls during this visit? Offered Assistance with Transfers/Clothing and Instructed Patient to Remain Seated (Not on Exam Table) Until Exam PATIENT GENDER DATA: Female. status: : No status: NO. PATIENT RELEVANT IMPLANT DATA REVIEWED: Not Applicable PATIENT PRESENTS WITH AN IMPLANTABLE OR ATTACHED IT SERVICE TECHNICIAN: No RADIOLOGY DEPARTMENT: General X-ray: Exam(s) Completed: Chest X-Ray PERIPHERAL IV DATA: Not applicable SIGNED BY: RT Darek(R) January 11, 2024 10:29 AM documented in this encounterMorrow [facility] Hospital09-24-2024 Instructions* Patient Instructions* Rufino Erickson MD - 01/11/2024 10:09 AM EDT While you are taking the levofloxacin for th next 10 days stop your calcium pill. documented in this encounterMorrow [facility] Hospital09-24-2024 History of Present illness Narrative* Rufino Erickson MD - 01/11/2024 9:40 AM EDT Chief Complaint Patient presents with: Covid Positive HPI Krystyna Khanna is a 88 year old female who presents here today for COVID positive. When was patient dx? Tested Positive last and her son said she still tested positive yesterday. Son is COVID positive. Was she seen? No How many days has she has had symptoms? Tested positive last , 6 days Cough? Yes Dry or productive? Productive of yellow mucus without blood Increased SOB? no Any fever? No documented fever. [place] cold some yesterday Slight post nasal drainage. Has some rhinorrhea. No nausea, vomiting or diarrhea. slight Body aches. Patient indicated that she has had a continued cough for a long time. was a smoker. Has been taking tessalon pearls and has helped. Past medical history, appointments, medications, allergies reviewed. Previous Medical History PAST MEDICAL HISTORY Diagnosis Date Advance directive discussed with patient 11/20/2021 Packets given 11/20/2021 Atrial fibrillation (HCC) Bilateral knee pain 01/09/2010 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 11/30/2022 Elevated hemoglobin A1c 11/08/2017 Encounter for Medicare annual wellness exam 09/25/2020 Medical B eligibilty date 02/18/2000 Date of last exam 10/25/2020 Hepatitis thinks B History of congestive heart failure History of heart attack Hypertension, essential 11/08/2017 Obesity, Class II, BMI 35-39.9 11/08/2017 Osteoarthritis Osteopenia, senile 09/25/2020 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 No further w/u needed and ok to stay on Xarelto Previous Surgical History PAST SURGICAL HISTORY Procedure Laterality Date 2D ECHO (EXEP) 10/28/2020 EF=60%, 1+ TImod alvarez dysf ARTHRP KNE CONDYLE&PLATU MEDIAL&LAT COMPARTMENTS Left 11/19/2017 Knee replacement, total PAST SURGICAL HISTORY OF 2004 right knee replacement REMV CATARACT EXTRACAP,INSERT LENS Bilateral REVISION OF UPPER EYELID Bilateral 11/21/2021 TUBAL LIGATION Family History FAMILY HISTORY Problem Relation Age of Onset Heart Mother Heart Father Breast Cancer Maternal Aunt Diabetes Maternal Aunt Diabetes Other cousin Cancer Paternal Grandmother stomach Heart Sister Breast Cancer Sister Patient Allergies ALLERGIES Allergen Reactions Darvocet A500 [Prop* Unknown Propoxyphene Unknown Sulfa (Sulfonamide * Other: See Comments didn't feel right, nervousness Current Medications Current Outpatient Medications on File Prior to Visit Medication Sig metoprolol succinate ER (TOPROL XL) 50 mg 24 hr tablet Take 1 tablet by mouth once daily. omeprazole (PRILOSEC) 20 mg capsule Take 1 capsule by mouth daily before breakfast. 1/2 hr before meal. benzonatate (TESSALON PERLES) 100 mg capsule Take 2 capsules by mouth three times a day as needed for cough. albuterol HFA (PROVENTIL HFA, VENTOLIN HFA) 90 mcg/actuation inhaler Inhale 2 Puffs as instructed every 4 hours as needed for wheezing/shortness of breath. calcium Carbonate 300 mg, 750mg, (TUMS) 300 mg (750 mg) chewable tablet Take 1 tablet by mouth twice daily. doxylamine succinate (NITE TIME SLEEP AID ORAL) Take by mouth as directed. Taking Nature's Bounty Sleep 3 as directed loperamide HCl (IMODIUM) 2 mg tab Take 2 mg by mouth as needed. Cholecalciferol, Vitamin D3, (D3-2000) 50 mcg (2,000 unit) cap Take 1 capsule by mouth once daily. multivitamin tablet Take 1 tablet by mouth once daily. acetaminophen (TYLENOL) 500 mg tablet Take 500 mg by mouth every 6 hours as needed. DOCOSAHEXANOIC ACID/EPA (FISH OIL ORAL) Take 1,000 mg by mouth once daily. No current facility-administered medications on file prior to visit. Social History Social History Tobacco Use Smoking status: Never Smokeless tobacco: Never Vaping Use Vaping status: Never Used Substance Use Topics Alcohol use: No Drug use: No Review of Symptoms REVIEW OF SYSTEMS See HPI EXAM: BP 122/78 (BP Site: Right Arm, BP Position: Sitting, BP Cuff Size: Regular Adult) Pulse 111 Temp 37 C (98.6 F) (Tympanic) Resp 18 Wt 78 kg (172 lb) SpO2 96% BMI 35.91 kg/m General Appearance: Well appearing, alert, in no acute distress, well-hydrated, well nourished.. Eyes: Anicteric sclera. Pupils are equally round. Extraocular movements are intact. . Ears: External ears normal, canals clear. Nose/Sinuses: deferred. Oropharynx: deferred. Neck: Supple, no adenopathy; thyroid symmetric, normal size, no bruits. Lungs: Lungs clear to auscultation. No wheezing, rhonchi, rales.. Heart: RRR without murmur, gallop, or rubs. No ectopy. Health Maintenance List Shingrix Vaccine(1 of 2) Never done RSV Vaccine(1 - 1-dose 75+ series) Never done Covid-19 Vaccine( season) due on 12/19/2023 Influenza Vaccine(1) due on 12/19/2023 Depression Screening due on 11/24/2024 Anxiety Screening due on 11/24/2024 Diabetes Screening due on 11/15/2026 DTaP,Tdap,Td Vaccine(2 - Td or Tdap) due on 11/18/2027 Bone Density Screening Completed Advance Directive Discussion Completed Pneumococcal Vaccine: 65+ Completed Data reviewed A/P ASSESSMENT/PLAN: 1. COVID-19 virus infection - ICD9: 079.89, ICD10: U07.1 (primary diagnosis) Check - XR CHEST 2V FRONTAL/LAT 2. Persistent cough - ICD9: 786.2, ICD10: R05.3 - concern for bacterial bronchitis vs pneumonia. Will place on Levaquin 500 mg a day for 10 days. (Patient advised to hold her calcium pill while on the antibiotic). Check STAT - XR CHEST 2V FRONTAL/LAT Requested Prescriptions Signed Prescriptions Disp Refills levoFLOXacin (LEVAQUIN) 500 mg tablet 10 tablet 0 Sig: Take 1 tablet by mouth once daily for 10 days. F/u prn. Rufino Erickson MD documented in this encounterM[facility]09-10-2024 Note* Addendum Note - Rufino Erickson MD - 12/28/2023 11:30 AM EDTAddended by: RUFINO ERICKSON on: 12/28/2023 11:30 AM Modules accepted: Orders [facility]09-10-2024 Miscellaneous Notes* Addendum Note - Rufino Erickson MD - 12/28/2023 11:30 AM EDTAddended by: RUFINO ERICKSON on: 12/28/2023 11:30 AM Modules accepted: Orders documented in this encounterM[facility]09-10-2024 History of Present illness Narrative* Tiff Hall LPN - 12/28/2023 11:18 AM EDT Scan on 12/28/2023 11:12 AM by Provider, MOLLY Parish: Consultation - Cardiology documented in this encounterM[facility]08-16-2024 History of Present illness Narrative* Cindy Khoury RT(R) - 12/03/2023 3:50 PM EDT Radiology Service Progress Note PATIENT NAME: Krystyna Khanna DATE OF SERVICE: December 03, 2023 TIME: 3:57 PM PATIENT IDENTITY VERIFICATION COMPLETED USING TWO (2) IDENTIFIERS: Name and Date of confirmedby patient verbally. FALL SCREENING: Has the patient had 2 falls in the last year or 1 fall with injury or currently using an Ambulatory Assistive Device (Walker, Cane, Wheelchair, Crutches, etc.)? Yes, Patient High Riskfor Falls What interventions were put in place to prevent falls during this visit? Offered Assistance with Transfers/Clothing, Instructed Patient to Remain Seated (Not on Exam Table) Until Exam, and Increased Observations by Caregivers PATIENT GENDER DATA: Female. status: : No status: NO. PATIENT RELEVANT IMPLANT DATA REVIEWED: Yes PATIENT PRESENTS WITH AN IMPLANTABLE OR ATTACHED IT SERVICE TECHNICIAN: No RADIOLOGY DEPARTMENT: General X-ray: Exam(s) Completed: Upper Extremity X- Ray(s): Elbow, left and Wrist, left PERIPHERAL IV DATA: Not applicable SIGNED BY: RT Joya(R) December 03, 2023 3:57 PM documented in this encounterMorrow [facility]08-16-2024 History of Present illness Narrative* Ulices Moya APRN.[employer] MECHANIC - 12/03/2023 3:43 PM EDT Images from the original note were not included. Subjective HPI HPI Krystyna Khanna is a 88 year old female who presents today for CC of fall, left elbow and wrist injury. This started 1 day ago. Has tried otc medication for relief. Symptoms are worsened by rom. Denies numbness/tingling of left hand. .Patient presents with: Wrist/forearm Injury: L wrist injury x1 day, fell back and caught self with hand PAST MEDICAL HISTORY 11/20/2021: Advance directive discussed with patient Comment: Packets given 11/20/2021 No date: Atrial fibrillation (HCC) 01/09/2010: Bilateral knee pain 11/30/2022: 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 11/08/2017: Elevated hemoglobin A1c 09/25/2020: Encounter for Medicare annual wellness exam Comment: Medical B eligibilty date 02/18/2000 Date of last exam 10/25/2020 No date: Hepatitis Comment: thinks B No date: History of congestive heart failure No date: History of heart attack 11/08/2017: Hypertension, essential 11/08/2017: Obesity, Class II, BMI 35-39.9 No date: Osteoarthritis 09/25/2020: Osteopenia, senile 12/10/2021: Pseudothrombocytopenia Comment: Seen Hematology 11/2021. No further w/u needed and ok to stay on Xarelto PAST SURGICAL HISTORY 10/28/2020: 2D ECHO (EXEP) Comment: EF=60%, 1+ TImod alvarez dysf 11/19/2017: ARTHRP KNE CONDYLE&PLATU MEDIAL&LAT COMPARTMENTS; Left Comment: Knee replacement, total 2004: PAST SURGICAL HISTORY OF Comment: right knee replacement No date: REMV CATARACT EXTRACAP,INSERT LENS; Bilateral 11/21/2021: REVISION OF UPPER EYELID; Bilateral No date: TUBAL LIGATION ALLERGIES Darvocet A500 [Propoxyphene N-Acetaminophen], Propoxyphene, and Sulfa (Sulfonamide Antibiotics) MEDICATIONS XARELTO 20 mg tablet Take 1 tablet by mouth once daily. metoprolol succinate ER (TOPROL XL) 50 mg 24 hr tablet Take 1 tablet by mouth once daily. omeprazole (PRILOSEC) 20 mg capsule Take 1 capsule by mouth daily before breakfast. 1/2 hr before meal. benzonatate (TESSALON PERLES) 100 mg capsule Take 2 capsules by mouth three times a day as needed for cough. albuterol HFA (PROVENTIL HFA, VENTOLIN HFA) 90 mcg/actuation inhaler Inhale 2 Puffs as instructed every 4 hours as needed for wheezing/shortness of breath. calcium Carbonate 300 mg, 750mg, (TUMS) 300 mg (750 mg) chewable tablet Take 1 tablet by mouth twice daily. doxylamine succinate (NITE TIME SLEEP AID ORAL) Take by mouth as directed. Taking Nature's Bounty Sleep 3 as directed loperamide HCl (IMODIUM) 2 mg tab Take 2 mg by mouth as needed. Cholecalciferol, Vitamin D3, (D3-2000) 50 mcg (2,000 unit) cap Take 1 capsule by mouth once daily. multivitamin tablet Take 1 tablet by mouth once daily. acetaminophen (TYLENOL) 500 mg tablet Take 500 mg by mouth every 6 hours as needed. DOCOSAHEXANOIC ACID/EPA (FISH OIL ORAL) Take 1,000 mg by mouth once daily. FAMILY HISTORY Problem Relation Age of Onset Heart Mother Heart Father Breast Cancer Maternal Aunt Diabetes Maternal Aunt Diabetes Other cousin Cancer Paternal Grandmother stomach Heart Sister Breast Cancer Sister Social History Tobacco Use Smoking status: Never Smokeless tobacco: Never Vaping Use Vaping Use: Never used Substance Use Topics Alcohol use: No Drug use: No ROS Objective Blood pressure 156/74, pulse (!) 56, temperature 37 C (98.6 F), resp. rate 18, weight 78.9 kg (173 lb 15.1 oz), SpO2 92%. Physical Exam Constitutional: General: She is not in acute distress. Appearance: She is not toxic-appearing or diaphoretic. HENT: Head: Normocephalic and atraumatic. Pulmonary: Effort: Pulmonary effort is normal. No accessory muscle usage or respiratory distress. Musculoskeletal: Arms: Neurological: Mental Status: She is alert and oriented to person, place, and time. ASSESSMENT/PLAN: 1. Injury of left upper extremity, initial encounter - ICD9: 959.8, ICD10: S49.92XA Pain is vague, moving elbow and wrist very well without limitation Low suspicion for fracture Otc management Offered sling, declined. - XR ELBOW SPECIAL VIEWS AP/LAT/OTHER LEFT IMPRESSION: 1. Positional limitations as above 2. Possible small elbow joint effusion not otherwise specific. Could indicate a radiographically occult new nondisplaced proximal radial fracture. Depending on clinical findings, considering treating as fracture; no further imaging is indicated 3. Incidentally, possible incomplete union previous proximal radial fracture; identifiable sclerotic margins along some of the fracture lines. No new or progressive displacement Dictated by : PAPI JUSTEN, MD - XR WRIST GENERAL 3V PA/LAT/OBL LEFT Ulices Moya APRN.CYLINDER [employer] MECHANIC [facility] History of Present illness Narrative* Lulu Staton APRN.CNP - 11/25/2023 10:57 AM EDT Images from the original note were not included. Krystyna Khanna is a 88 year old female here for a Medicare wellness visit. Medicare Health Risk Assessment General Health Good Exercise: Minutes/Day 0 min Exercise: Days/Week 0 days Alcohol: Daily Use Never Alcohol: Drinks/Day Patient does not drink Alcohol: 6 or more drinks Never Feel off balance No Concerns: Teeth/Dentures No Concerns: Sexual function No Troubled by feelings None of the above Frequency: Eating healthy diet Nearly every day ADLs requiring help Grocery shopping; Walking; Driving Safety precautions in home/vehicle Yes Smoke, vape, chews tobacco No Difficulty hearing Yes, I wear a hearing aid Difficulty seeing No Current Providers Specialists: I have reviewed specialist-related care of the patient in the medical record. Current care team: Patient Care Team: Rufino Erickson MD as PCP - General (Family Medicine) Medical/Family history review Reviewed and updated problem list, medical/surgical/family/social history, medications, and allergies. Opioid use review Opioid Medications (last 90 days) No data to display Anxiety/Depression screening PHQ-9 Score: 2 (Minimal Depression) JOANN-[id number] Score: 1 (Minimal Anxiety) Recommendation: no further intervention at this time Cognitive screening Cognitive screening reviewed and No further action needed (score 3-5). Functional Observation Was the patient's Timed Up & Go test unsteady or ? 12 seconds? No Advance Care Planning Patient did not wish or was not able to name a surrogate decision maker or provide an advance care plan Measurements BP 135/73 Pulse (!) 56 Resp 16 Wt 78.5 kg (173 lb) BMI 36.12 kg/m Vision Screening: Follows with optometry/ophthalmology Assessment/Plan Medicare annual wellness visit, subsequent (Z00.00) - Counseled on healthy diet and regular exercise - Fall avoidance information provided - Personalized prevention plan provided - Discussed need for and benefit of weight loss. BMI 36.12 kg/(m^2) Chief Complaint Patient presents with: Medicare Wellness Exam HPI Krystyna Khanna is a 88 year old female who presents here today for Above Complaints.. Patient presents for annual wellness exam. Past medical history, appointments, medications, allergies reviewed. Previous Medical History PAST MEDICAL HISTORY 11/20/2021: Advance directive discussed with patient Comment: Packets given 11/20/2021 No date: Atrial fibrillation (HCC) 01/09/2010: Bilateral knee pain 11/30/2022: 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 11/08/2017: Elevated hemoglobin A1c 09/25/2020: Encounter for Medicare annual wellness exam Comment: Medical B eligibilty date 02/18/2000 Date of last exam 10/25/2020 No date: Hepatitis Comment: thinks B No date: History of congestive heart failure No date: History of heart attack 11/08/2017: Hypertension, essential 11/08/2017: Obesity, Class II, BMI 35-39.9 No date: Osteoarthritis 09/25/2020: Osteopenia, senile 12/10/2021: Pseudothrombocytopenia Comment: Seen Hematology 11/2021. No further w/u needed and ok to stay on Xarelto Previous Surgical History PAST SURGICAL HISTORY 10/28/2020: 2D ECHO (EXEP) Comment: EF=60%, 1+ TImod alvarez dysf 11/19/2017: ARTHRP KNE CONDYLE&PLATU MEDIAL&LAT COMPARTMENTS; Left Comment: Knee replacement, total 2004: PAST SURGICAL HISTORY OF Comment: right knee replacement No date: REMV CATARACT EXTRACAP,INSERT LENS; Bilateral 11/21/2021: REVISION OF UPPER EYELID; Bilateral No date: TUBAL LIGATION Family History FAMILY HISTORY Problem Relation Age of Onset Heart Mother Heart Father Breast Cancer Maternal Aunt Diabetes Maternal Aunt Diabetes Other cousin Cancer Paternal Grandmother stomach Heart Sister Breast Cancer Sister Patient Allergies ALLERGIES Allergen Reactions Darvocet A500 [Prop* Unknown Propoxyphene Unknown Sulfa (Sulfonamide * Other: See Comments didn't feel right, nervousness Current Medications Current Outpatient Medications on File Prior to Visit Medication Sig XARELTO 20 mg tablet Take 1 tablet by mouth once daily. metoprolol succinate ER (TOPROL XL) 50 mg 24 hr tablet Take 1 tablet by mouth once daily. omeprazole (PRILOSEC) 20 mg capsule Take 1 capsule by mouth daily before breakfast. 1/2 hr before meal. benzonatate (TESSALON PERLES) 100 mg capsule Take 2 capsules by mouth three times a day as needed for cough. albuterol HFA (PROVENTIL HFA, VENTOLIN HFA) 90 mcg/actuation inhaler Inhale 2 Puffs as instructed every 4 hours as needed for wheezing/shortness of breath. calcium Carbonate 300 mg, 750mg, (TUMS) 300 mg (750 mg) chewable tablet Take 1 tablet by mouth twice daily. doxylamine succinate (NITE TIME SLEEP AID ORAL) Take by mouth as directed. Taking Nature's Bounty Sleep 3 as directed loperamide HCl (IMODIUM) 2 mg tab Take 2 mg by mouth as needed. Cholecalciferol, Vitamin D3, (D3-2000) 50 mcg (2,000 unit) cap Take 1 capsule by mouth once daily. multivitamin tablet Take 1 tablet by mouth once daily. acetaminophen (TYLENOL) 500 mg tablet Take 500 mg by mouth every 6 hours as needed. DOCOSAHEXANOIC ACID/EPA (FISH OIL ORAL) Take 1,000 mg by mouth once daily. No current facility-administered medications on file prior to visit. Social History Social History Tobacco Use Smoking status: Never Smokeless tobacco: Never Vaping Use Vaping Use: Never used Substance Use Topics Alcohol use: No Drug use: No Review of Symptoms REVIEW OF SYSTEMS SEE HPI EXAM: BP 180/64 Pulse (!) 56 Resp 16 Wt 78.5 kg (173 lb) BMI 36.12 kg/m General Appearance: Well appearing, alert, in no acute distress, well-hydrated, well nourished.. Skin: Skin color, texture, turgor normal, no suspicious rashes or lesions. Neck: Supple, no adenopathy; thyroid symmetric, normal size, no bruits. Lungs: Lungs clear to auscultation. No wheezing, rhonchi, rales.. Heart: RRR without murmur, gallop, or rubs. No ectopy. Abdomen: Normal abdominal exam, Abdomen soft, non-tender. Bowel sounds normal. No masses, organomegaly. Musculoskeletal: No joint swelling, deformity, or tenderness. Peripheral Pulses: Normal. Neurologic: Gait normal. Reflexes normal and symmetric. Sensation grossly intact.. Health Maintenance List Depression Screening Never done Anxiety Screening Never done Shingrix Vaccine(1 of 2) Never done RSV Vaccine(1 - 1-dose 60+ series) Never done Covid-19 Vaccine( season) due on 12/18/2022 Advance Directive Discussion due on 04/19/2023 Influenza Vaccine(1) due on 12/19/2023 Diabetes Screening due on 11/15/2026 DTaP,Tdap,Td Vaccine(2 - Td or Tdap) due on 11/18/2027 Bone Density Screening Completed Pneumococcal Vaccine: 65+ Completed Data reviewed Latest Ref Rng 11/16/2023 WBC 3.70 - 11.00 k/uL 9.92 RBC 3.90 - 5.20 m/uL 4.33 Hemoglobin 11.5 - 15.5 g/dL 14.0 Hematocrit 36.0 - 46.0 % 42.4 MCV 80.0 - 100.0 fL 97.9 MCH 26.0 - 34.0 pg 32.3 MCHC 30.5 - 36.0 g/dL 33.0 RDW-CV 11.5 - 15.0 % 12.4 Platelet Count -- MPV -- NRBC /100 WBC 0.9 Absolute nRBC <0.01 k/uL 0.09 (H) Neut% % 53.9 Abs Neut (ANC) 1.45 - 7.50 k/uL 5.35 Lymph% % 27.0 Abs Lymph 1.00 - 4.00 k/uL 2.68 Tompkins% % 19.1 Abs Tompkins <0.87 k/uL 1.89 (H) Eosin% % 0.0 Abs Eosin <0.46 k/uL 0.00 Baso% % 0.0 Abs Baso <0.11 k/uL 0.00 Platelet Estimate Decreased Red Cell Morph Reviewed: unremarkable DTYPE Manual Color Yellow Dark Yellow ! Clarity Clear Turbid ! Glucose, Urine Negative Negative Bilirubin, Urine Negative 1+ ! Ketones, Urine Negative Trace ! Specific Ketchum, Ur 1.005 - 1.030 1.032 (H) Hemoglobin/Blood,Ur Negative Negative pH, Urine <8.5 5.0 Protein, Urine Negative 1+ ! Urobilinogen 0.2-1.0 EU/dL 1.0 EU/dL Nitrites Negative Negative Leukest Negative Negative WBC, Urine 0-5 /HPF 0-5 /HPF RBC, Urine 0-2 /HPF >20 /HPF ! Bacteria Negative /HPF Negative Epithelial Cells /HPF Few Hyaline Cast 0 /LPF >10 /LPF ! Calcium Oxalate Crystals None Seen /HPF Many ! Protein, Total 6.3 - 8.0 g/dL 7.3 Albumin 3.9 - 4.9 g/dL 4.3 Calcium 8.5 - 10.2 mg/dL 9.5 Bilirubin, Total 0.2 - 1.3 mg/dL 1.3 Alkaline Phosphatase 34 - 123 U/L 69 AST 13 - 35 U/L 17 ALT 7 - 38 U/L 7 Glucose 74 - 99 mg/dL 132 (H) BUN 7 - 21 mg/dL 12 Creatinine 0.58 - 0.96 mg/dL 0.80 Sodium 136 - 144 mmol/L 137 Potassium 3.7 - 5.1 mmol/L 3.9 Chloride 98 - 107 mmol/L 99 CO2 22 - 30 mmol/L 29 Anion Gap 8 - 15 mmol/L 9 eGFR >=60 mL/min/1.73m 71 Total Cholesterol, Nonfasting <200 mg/dL 153 Triglycerides, Nonfasting <150 mg/dL 99 HDL Cholesterol, Nonfasting >39 mg/dL 44 LDL Cholesterol, Nonfasting <100 mg/dL 89 Non HDL Cholesterol, Nonfasting <130 mg/dL 109 VLDL Cholesterol, Nonfasting <30 mg/dL 20 Total Chol/HDL Ratio, Nonfasting <5.10 mg/dL 3.48 LDL/HDL Ratio, Nonfasting <2.54 mg/dL 2.02 Hemoglobin A1C 4.3 - 5.6 % 5.7 (H) Estimated Average Glucose mg/dL 117 ASSESSMENT/PLAN: 1. Essential hypertension - ICD9: 401.9, ICD10: I10 (primary diagnosis) - Controlled - Continue current medications - Recommend home blood pressure monitoring, to bring results to next visit - Encouraged sodium restriction, DASH or Mediterranean diet - Recommend regular aerobic exercise - Discussed need for and benefit of weight loss. BMI 36.12 kg/(m^2) 2. Elevated hemoglobin A1c - ICD9: 790.29, ICD10: R73.09 -Stable 3. Paroxysmal atrial fibrillation (HCC) - ICD9: 427.31, ICD10: I48.0 -Continue metoprolol and xarelto 4. Obesity, Class II, BMI 35-39.9 - ICD9: 278.00, ICD10: E66.9 -Stable 5. Encounter for Medicare annual wellness exam - ICD9: V70.0, ICD10: Z00.00 - Counseled on healthy diet and regular exercise - Discussed need and benefit for weight loss. BMI 36.12 kg/(m^2) 6. Osteopenia, senile - ICD9: 733.90, ICD10: M85.80 - Reviewed the need for Calcium and Vitamin D supplements and weight bearing exercise as tolerated 7. Medication management - ICD9: V58.69, ICD10: Z79.899 -Labs reviewed 8. Thrombocytopenia (HCC) - ICD9: 287.5, ICD10: D69.6 -Labs stable 9. Advance directive discussed with patient - ICD9: V65.49, ICD10: Z71.89 -Has information, has not completed 10. Screening for depression - ICD9: V79.0, ICD10: Z13.31 - DEPRESSION SCREENING 11. Encounter for screening examination for other mental health and behavioral disorders - ICD9: V79.8, ICD10: Z13.39 - ANXIETY SCREENING 12. Pain in both knees, unspecified chronicity - ICD9: 719.46, ICD10: M25.561, M25.562 - PARKING FOR HANDICAPPED 13. Primary osteoarthritis of both knees - ICD9: 715.16, ICD10: M17.0 - PARKING FOR HANDICAPPED Lulu Staton APRN.[employer]LINDER BLOCK MECHANIC documented [facility] Instructions* Patient Instructions* Lulu Staton APRN.CYLINDER BLOCK MECHANIC - 11/25/2023 10:57 AM EDT Screening schedule The following prevention plan is recommended: Depression Screening Never done Anxiety Screening Never done Shingrix Vaccine(1 of 2) Never done RSV Vaccine(1 - 1-dose 60+ series) Never done Covid-19 Vaccine(2022- season) due on 12/18/2022 Advance Directive Discussion due on 04/19/2023 WHAT YOU CAN DO TO PREVENT FALLS Many falls can be prevented. By making some changes, you can lower your chances of falling. Four things YOU can do to prevent falls for you* and your caregiver 1. Begin a regular exercise program Exercise is one of the most important ways to lower your chances of falling. It makes you stronger and helps you feel better. Exercises that improve balance and coordination (like Madhav Chi) are the most helpful. Lack of exercise leads to weakness and increases your chances of falling. Ask your doctor or health care provider about the best type of exercise program for you. 2. Have your health care provider review your medicines Have your doctor or pharmacist review all the medicines you take, even vyun-npj-[id number] medicines. As you get older, the way medicines work in your body can change. Some medicines, or combinations of medicines, can make you sleepy or dizzy andcan cause you to fall. 3. Have your vision checked Have your eyes checked by an eye doctor at least once a year. You may be wearing the wrong glasses or have a condition like glaucoma or cataracts that limits your vision. Poor vision can increase your chances of falling. 4. Make your home safer About half of all falls happen at home. To make your home safer: Remove things you can trip over (like papers, books, clothes, and shoes) from stairs and places where you walk. Remove small throw rugs or use double-sided tape to keep the rugs from slipping. Keep items you use often in cabinets you can reach easily without using a step stool. Have grab bars put in next to your toilet and in the tub or shower. Use non-slip mats in the bathtub and on shower floors. Improve the lighting in your home. As you get older, you need brighter lights to see well. Hang light-weight curtains or shades to reduce glare. Have handrails and lights put in on all staircases. Wear shoes both inside and outside the house. Avoid going barefoot or wearing slippers. For more information, contact: Centers for Disease Control and Prevention www.cdc.gov/injury * This information may not apply if you have certain medical conditions. documented in [facility] encounterM[facility]07-[facility] History of Present illness Narrative* John Gomez MA - 11/17/2023 3:23 PM EDT Scan on 11/13/2023 12:07 PM by Provider, MOLLY [place]: Consultation - Emergency Medicine John Gomez MA documented in this encounterM[facility]07-[facility]24 Telephone encounter Note * Telephone Encounter - Samanta Song RN - 10/19/2023 9:59 AM EDT Pt called and is notified of providers results and instructions. Pt voices understanding. Samanta Song RN [facility] Miscellaneous Notes* Telephone Encounter - Samanta Song RN - 10/19/2023 9:59 AM EDT Pt called and is notified of providers results and instructions. Pt voices understanding. Samanta Song RN * Telephone Encounter - Sarah Yang PA-C - 10/19/2023 9:27 AM EDT Noted. Will have her continue the omeprazole. She can try adding the claritin and see if symptoms improve more. Sarah Yang PA-C * Telephone Encounter - Tiff Hall LPN - 10/19/2023 8:35 AM EDT Spoke with pt. She reports cough has gotten better. Has to clear her throat once in awhile and still has some yellow colored phlegm but states she is better. Tiff Hall LPN * Telephone Encounter - Sarah Yang PA-C - 10/19/2023 7:54 AM EDT Please check with patient on whether cough has improved since starting omeprazole. Thanks. Sarah Yang PA-C documented in [facility]07-[facility]24 Telephone encounter Note * Telephone Encounter - Sarah Yang PA-C - 10/19/2023 9:27 AM EDT Noted. Will have her continue the omeprazole. She can try adding the claritin and see if symptoms improve more. Sarah Yang PA-C [facility] Telephone encounter Note* Telephone Encounter - Tiff Hall LPN - 10/19/2023 8:35 AM EDT Spoke with pt. She reports cough has gotten better. Has to clear her throat once in awhile and still has some yellow colored phlegm but states she is better. Tiff Hall LPN [facility]07-02-[facility] Telephone encounter Note* Telephone Encounter - Sarah Yang PA-C - 10/19/2023 7:54 AM EDT Please check with patient on whether cough has improved since starting omeprazole. Thanks. Sarah Yang PA-C [facility] Telephone encounter Note* Telephone Encounter - Rufino Erickson MD - 10/11/2023 10:20 PM EDT The following approved medication requests have been transmitted electronically. Requested Prescriptions Signed Prescriptions Disp Refills XARELTO 20 mg tablet 90 tablet 1 Sig: Take 1 tablet by mouth once daily. Authorizing Provider: RUFINO ERICKSON metoprolol succinate ER (TOPROL XL) 50 mg 24 hr tablet 90 tablet 1 Sig: Take 1 tablet by mouth once daily. Authorizing Provider: RUFINO ERICKSON MD [facility] Miscellaneous Notes* Telephone Encounter - Rufino Erickson MD - 10/11/2023 10:20 PM EDT The following approved medication requests have been transmitted electronically. Requested Prescriptions Signed Prescriptions Disp Refills XARELTO 20 mg tablet 90 tablet 1 Sig: Take 1 tablet by mouth once daily. Authorizing Provider: RUFINO ERICKSON metoprolol succinate ER (TOPROL XL) 50 mg 24 hr tablet 90 tablet 1 Sig: Take 1 tablet by mouth once daily. Authorizing Provider: RUFINO ERICKSON MD * Telephone Encounter - Amy Breen - 10/11/2023 11:53 AM EDT Patient has been identified by name and date of : Yes Patient phones for refill(s): Requested Prescriptions Pending Prescriptions Disp Refills XARELTO 20 mg tablet 90 tablet 1 Sig: Take 1 tablet by mouth once daily. metoprolol succinate ER (TOPROL XL) 50 mg 24 hr tablet 90 tablet 3 Sig: Take 1 tablet by mouth once daily. Date of last office visit in primary care: 09/07/2023 Date of next office visit in primary care: 11/25/2023 Please advise. Thank you. Amy Breen. documented in this encounterM[facility]06-24-2024 Telephone encounter Note * Telephone Encounter - Amy Breen - 10/11/2023 11:53 AM EDT Patient has been identified by name and date of : Yes Patient phones for refill(s): Requested Prescriptions Pending Prescriptions Disp Refills XARELTO 20 mg tablet 90 tablet 1 Sig: Take 1 tablet by mouth once daily. metoprolol succinate ER (TOPROL XL) 50 mg 24 hr tablet 90 tablet 3 Sig: Take 1 tablet by mouth once daily. Date of last office visit in primary care: 09/07/2023 Date of next office visit in primary care: 11/25/2023 Please advise. Thank you. Amy Breen. [facility] Instructions* Patient Instructions* Sarah Yang PA-C - 09/07/2023 10:36 AM EDT We are going to try omeprazole for your cough. It may take 4-6 weeks before you notice improvement so continue to take it for at least 6 weeks. Update me by phone around that time on whether it has helped or not. If not helping, we will try OTC claritin (loratidine). Keep follow up as scheduled in November for now. documented in this encounterM[facility]05-21-[facility]24 History of Present illness Narrative* Sarah Yang PA-C - 09/07/2023 10:26 AM EDT Chief Complaint Patient presents with: Follow Up Cough: Has an occasional productive cough HPI Krystyna Khanna is a 88 year old female who presents here today for Above Complaints.. Patient continue to cough at times although has been quite improved. Seems to sometimes be after a meal. 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 States she didn't realize she was supposed to. Past medical history, appointments, medications, allergies reviewed. Previous Medical History PAST MEDICAL HISTORY Diagnosis Date Advance directive discussed with patient 11/20/2021 Packets given 11/20/2021 Atrial fibrillation (HCC) Bilateral knee pain 01/09/2010 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 11/30/2022 Elevated hemoglobin A1c 11/08/2017 Encounter for Medicare annual wellness exam 09/25/2020 Medical B eligibilty date 02/18/2000 Date of last exam 10/25/2020 Hepatitis thinks B History of congestive heart failure History of heart attack Hypertension, essential 11/08/2017 Obesity, Class II, BMI 35-39.9 11/08/2017 Osteoarthritis Osteopenia, senile 09/25/2020 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 No further w/u needed and ok to stay on Xarelto Previous Surgical History PAST SURGICAL HISTORY Procedure Laterality Date 2D ECHO (EXEP) 10/28/2020 EF=60%, 1+ TImod alvarez dysf ARTHRP KNE CONDYLE&PLATU MEDIAL&LAT COMPARTMENTS Left 11/19/2017 Knee replacement, total PAST SURGICAL HISTORY OF 2004 right knee replacement REMV CATARACT EXTRACAP,INSERT LENS Bilateral REVISION OF UPPER EYELID Bilateral 11/21/2021 TUBAL LIGATION Family History FAMILY HISTORY Problem Relation Age of Onset Heart Mother Heart Father Breast Cancer Maternal Aunt Diabetes Maternal Aunt Diabetes Other cousin Cancer Paternal Grandmother stomach Heart Sister Breast Cancer Sister Patient Allergies ALLERGIES Allergen Reactions Darvocet A500 [Prop* Unknown Propoxyphene Unknown Sulfa (Sulfonamide * Other: See Comments didn't feel right, nervousness Current Medications Current Outpatient Medications on File Prior to Visit Medication Sig benzonatate (TESSALON PERLES) 100 mg capsule Take 2 capsules by mouth three times a day as needed for cough. metoprolol succinate ER (TOPROL XL) 50 mg 24 hr tablet Take 1 tablet by mouth once daily. XARELTO 20 mg tablet Take 1 tablet by mouth once daily. albuterol HFA (PROVENTIL HFA, VENTOLIN HFA) 90 mcg/actuation inhaler Inhale 2 Puffs as instructed every 4 hours as needed for wheezing/shortness of breath. calcium Carbonate 300 mg, 750mg, (TUMS) 300 mg (750 mg) chewable tablet Take 1 tablet by mouth twice daily. doxylamine succinate (NITE TIME SLEEP AID ORAL) Take by mouth as directed. Taking Nature's Bounty Sleep 3 as directed loperamide HCl (IMODIUM) 2 mg tab Take 2 mg by mouth as needed. Cholecalciferol, Vitamin D3, (D3-2000) 50 mcg (2,000 unit) cap Take 1 capsule by mouth once daily. multivitamin tablet Take 1 tablet by mouth once daily. acetaminophen (TYLENOL) 500 mg tablet Take 500 mg by mouth every 6 hours as needed. DOCOSAHEXANOIC ACID/EPA (FISH OIL ORAL) Take 1,000 mg by mouth once daily. No current facility-administered medications on file prior to visit. Social History Social History Tobacco Use Smoking status: Never Smokeless tobacco: Never Vaping Use Vaping Use: Never used Substance Use Topics Alcohol use: No Drug use: No Review of Symptoms REVIEW OF SYSTEMS See hpi EXAM: BP 114/71 (BP Site: Left Arm, BP Position: Sitting, BP Cuff Size: Regular Adult) Pulse (!) 52 Temp 36.8 C (98.3 F) (Tympanic) Resp 20 Wt 78.9 kg (174 lb) SpO2 92% BMI 36.33 kg/m General Appearance: Well appearing, alert, in no acute distress, well-hydrated, well nourished.. Health Maintenance List Shingrix Vaccine(1 of 2) Never done RSV Vaccine(1 - 1-dose 60+ series) Never done Covid-19 Vaccine( season) due on 12/18/2022 Advance Directive Discussion due on 04/19/2023 Behavioral Health Screening Never done Diabetes Screening due on 05/27/2026 DTaP,Tdap,Td Vaccine(2 - Td or Tdap) due on 11/18/2027 Bone Density Screening Completed Influenza Vaccine Completed Pneumococcal Vaccine: 65+ Completed Data reviewed ASSESSMENT/PLAN: 1. Chronic cough - ICD9: 786.2, ICD10: R05.3 Will have her try omeprazole for 4-6 weeks. If not improving, will try claritin. Sarah Yang PA-C documented in this encounterM[facility]04[facility]24 Miscellaneous Notes* Telephone Encounter - Marcia Samuel OCCA - 08/04/2023 1:08 PM EDT TC to patient who verbalized understanding of below. Patient reminded of upcoming appointment on 09/06. No questions at this time. GERMAIN Horton * Telephone Encounter - Sarah Yang PA-C - 08/04/2023 11:27 AM EDT Let patient know that her PFT was normal. However it sounds like she struggled to do the test itself which may have effected the readings. I had wanted the test done towards the end of the month to make sure she was fully recovered from bronchitis so I'm not sure if that also made it harder on her to do the test. Either way we will discuss in more detail at follow up visit. In meantime she can try OTC claritin to see if it helps with her chronic cough. documented in this encounterM[facility]04-16-[facility]24 History of Present illness Narrative* Emily Holloway RPFT - 08/03/2023 11:34 AM EDT PULM FUNCTION SMARTBLOCK: Provider: Sarah Yang PA-C Assisting Tech: Emily Holloway RPFT Spirometry w/BD: 1 documented in this encounterM[facility]04-10-2024 Miscellaneous Notes* Telephone Encounter - Yasemin Harding RN - 07/28/2023 11:14 AM EDT Patient notified of results and provider's instructions. Patient verbalizes understanding. Yasemin Harding RN * Telephone Encounter - Samanta Song RN - 07/28/2023 11:11 AM EDT Called and left a voicemail for the Patient to call back and ask for a nurse to receive the providers message. Samanta Song RN * Telephone Encounter - Sarah Yang PA-C - 07/28/2023 9:45 AM EDT Cxr is negative. Continue as we discussed. documented in this encounterJacqueline [place] [id number] History of Present illness Narrative* Yary Perez RT(R) - 07/27/2023 1:30 PM EDT Radiology Service Progress Note PATIENT NAME: Krystyna Khanna DATE OF SERVICE: July 27, 2023 TIME: 1:34 PM PATIENT IDENTITY VERIFICATION COMPLETED USING TWO (2) IDENTIFIERS: Name and Date of confirmedby patient verbally. FALL SCREENING: Has the patient had 2 falls in the last year or 1 fall with injury or currently using an Ambulatory Assistive Device (Walker, Cane, Wheelchair, Crutches, etc.)? Yes, Patient High Riskfor Falls What interventions were put in place to prevent falls during this visit? Instructed Patient to Callfor Help if Needed, Offered Assistance with Transfers/Clothing, and Increased Observations by Caregivers PATIENT GENDER DATA: Female. status: : No status: NO. PATIENT RELEVANT IMPLANT DATA REVIEWED: Yes PATIENT PRESENTS WITH AN IMPLANTABLE OR ATTACHED IT SERVICE TECHNICIAN: No RADIOLOGY DEPARTMENT: General X-ray: Exam(s) Completed: Chest X-Ray PERIPHERAL IV DATA: Not applicable SIGNED BY: RT Isaias(R) July 27, 2023 1:34 PM documented in this encounterM[facility]04-09-2024 History of Present illness Narrative* Sarah Yang PA-C - 07/27/2023 12:59 PM EDT Chief Complaint Patient presents with: Productive cough: X 1-2 wks HPI Krystyna Khanna is a 88 year old female who presents here today for Above Complaints.. Patient reports intermittent cough for the past 8 months. States she will start to feel better and then symptoms improve. Last visit for cough was in March. Cough has been present for the past 1 week. No fever. Some congestion at time +sinus drainage/runny nose. No sore throat. No shortness of breath. Past medical history, appointments, medications, allergies reviewed. Previous Medical History PAST MEDICAL HISTORY Diagnosis Date Advance directive discussed with patient 11/20/2021 Packets given 11/20/2021 Atrial fibrillation (HCC) Bilateral knee pain 01/09/2010 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 11/30/2022 Elevated hemoglobin A1c 11/08/2017 Encounter for Medicare annual wellness exam 09/25/2020 Medical B eligibilty date 02/18/2000 Date of last exam 10/25/2020 Hepatitis thinks B History of congestive heart failure History of heart attack Hypertension, essential 11/08/2017 Obesity, Class II, BMI 35-39.9 11/08/2017 Osteoarthritis Osteopenia, senile 09/25/2020 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 No further w/u needed and ok to stay on Xarelto Previous Surgical History PAST SURGICAL HISTORY Procedure Laterality Date 2D ECHO (EXEP) 10/28/2020 EF=60%, 1+ TImod alvarez dysf ARTHRP KNE CONDYLE&PLATU MEDIAL&LAT COMPARTMENTS Left 11/19/2017 Knee replacement, total PAST SURGICAL HISTORY OF 2004 right knee replacement REMV CATARACT EXTRACAP,INSERT LENS Bilateral REVISION OF UPPER EYELID Bilateral 11/21/2021 TUBAL LIGATION Family History FAMILY HISTORY Problem Relation Age of Onset Heart Mother Heart Father Breast Cancer Maternal Aunt Diabetes Maternal Aunt Diabetes Other cousin Cancer Paternal Grandmother stomach Heart Sister Breast Cancer Sister Patient Allergies ALLERGIES Allergen Reactions Darvocet A500 [Prop* Unknown Propoxyphene Unknown Sulfa (Sulfonamide * Other: See Comments didn't feel right, nervousness Current Medications Current Outpatient Medications on File Prior to Visit Medication Sig metoprolol succinate ER (TOPROL XL) 50 mg 24 hr tablet Take 1 tablet by mouth once daily. XARELTO 20 mg tablet Take 1 tablet by mouth once daily. benzonatate (TESSALON PERLES) 100 mg capsule Take 2 capsules by mouth three times a day as needed for cough. albuterol HFA (PROVENTIL HFA, VENTOLIN HFA) 90 mcg/actuation inhaler Inhale 2 Puffs as instructed every 4 hours as needed for wheezing/shortness of breath. calcium Carbonate 300 mg, 750mg, (TUMS) 300 mg (750 mg) chewable tablet Take 1 tablet by mouth twice daily. doxylamine succinate (NITE TIME SLEEP AID ORAL) Take by mouth as directed. Taking Nature's Bounty Sleep 3 as directed loperamide HCl (IMODIUM) 2 mg tab Take 2 mg by mouth as needed. Cholecalciferol, Vitamin D3, (D3-2000) 50 mcg (2,000 unit) cap Take 1 capsule by mouth once daily. multivitamin tablet Take 1 tablet by mouth once daily. acetaminophen (TYLENOL) 500 mg tablet Take 500 mg by mouth every 6 hours as needed. DOCOSAHEXANOIC ACID/EPA (FISH OIL ORAL) Take 1,000 mg by mouth once daily. No current facility-administered medications on file prior to visit. Social History Social History Tobacco Use Smoking status: Never Smokeless tobacco: Never Vaping Use Vaping Use: Never used Substance Use Topics Alcohol use: No Drug use: No Review of Symptoms REVIEW OF SYSTEMS See hpi EXAM: BP 139/71 (BP Site: Left Arm, BP Position: Sitting, BP Cuff Size: Regular Adult) Pulse (!) 52 Temp 36.9 C (98.5 F) (Right Tympanic) Resp 16 Wt 80.3 kg (177 lb) SpO2 94% BMI 36.65 kg/m General Appearance: Well appearing, alert, in no acute distress, well-hydrated, well nourished.. Eyes: Anicteric sclera. Pupils are equally round and reactive to light. Extraocular movements are intact. . Ears: External ears normal, canals clear, TMs pearly rodriges. Nose/Sinuses: Nares normal, septum midline, mucosa normal, no drainage or sinus tenderness. Oropharynx: Lips, mucosa, and tongue normal, teeth and gums normal, oropharynx normal. Neck: Supple, no adenopathy; thyroid symmetric, normal size, no bruits. Lungs: Scattered wheezes b/l. Cleared with cough. Heart: RRR without murmur, gallop, or rubs. No ectopy. Health Maintenance List Shingrix Vaccine(1 of 2) Never done RSV Vaccine(1 - 1-dose 60+ series) Never done Covid-19 Vaccine(2022- season) due on 12/18/2022 Advance Directive Discussion due on 04/19/2023 Behavioral Health Screening Never done Diabetes Screening due on 05/27/2026 DTaP,Tdap,Td Vaccine(2 - Td or Tdap) due on 11/18/2027 Bone Density Screening Completed Influenza Vaccine Completed Pneumococcal Vaccine: 65+ Completed Data reviewed ASSESSMENT/PLAN: 1. Acute cough - ICD9: 786.2, ICD10: R05.1 (primary diagnosis) Start atb OTC mucinex Check cxr. - XR CHEST 2V FRONTAL/LAT - BENZONATATE 100 MG CAPSULE 2. Chronic cough - ICD9: 786.2, ICD10: R05.3 Will set up for PFT and schedule follow up. May be sinus related. - SPIROMETRY - BASELINE AND POST DILATOR Sarah Yang PA-C documented in this encounterM[facility]03-22-2024 Miscellaneous Notes* Telephone Encounter - Rufino Erickson MD - 07/09/2023 6:01 PM EDT The following approved medication requests have been transmitted electronically. Requested Prescriptions Signed Prescriptions Disp Refills metoprolol succinate ER (TOPROL XL) 50 mg 24 hr tablet 90 tablet 3 Sig: Take 1 tablet by mouth once daily. Authorizing Provider: RUFINO ERICKSON MD * Telephone Encounter - Felipa Newton LPN - 07/09/2023 2:36 PM EDT Patient has been identified by name and date of : Yes, Provider Dr Erickson Has this been d/c'd? Please advise Patient phones for refill(s): Requested Prescriptions Pending Prescriptions Disp Refills metoprolol succinate ER (TOPROL XL) 50 mg 24 hr tablet 90 tablet 3 Sig: Take 1 tablet by mouth once daily. Date of last office visit in primary care: 05/27/2023 Date of next office visit in primary care: 11/25/2023 Please advise. Thank you. Felipa Newton LPN. * Telephone Encounter - Nataliia Mancuso - 07/09/2023 2:21 PM EDT Patient has been identified by name and date of : Yes, Provider SHANNON Patient phones for refill(s): Requested Prescriptions Pending Prescriptions Disp Refills metoprolol succinate ER (TOPROL XL) 50 mg 24 hr tablet 90 tablet 3 Sig: Take 1 tablet by mouth once daily. Date of last office visit in primary care: 05/27/2023 Date of next office visit in primary care: 11/25/2023 Please advise. Thank you. Nataliia Mancuso. documented in this encounterM[facility]03-11-2024 Miscellaneous Notes* Telephone Encounter - Tiff Hall LPN - 06/28/2023 10:39 AM EDT Patient has been identified by name and date of : Yes, Provider Dr Erickson Date 06/27/22 Time 10:40 am Pharmacy phones for refill(s): Requested Prescriptions Pending Prescriptions Disp Refills metoprolol succinate ER (TOPROL XL) 50 mg 24 hr tablet [Pharmacy Med Name: METOPROLOL SUCC ER 50 MGTAB] 90 tablet 3 Sig: take 1 tablet by mouth once daily Date of last office visit in primary care: 05/27/2023 Date of next office visit in primary care: 11/25/2023 Please advise. Thank you. Tiff Hall LPN. documented in this encounterM[facility]02-08-2024 History of Present illness Narrative* Joanne Delvalle LPN - 05/27/2023 10:51 AM EST Ambulatory Ear Lavage Pre-treatment: No pre-treatment Treatment: Right ear Equipment and Irrigation solution and Volume used: Single use syringe with single use irrigation tip Water Return flow appearance: Clear Patient tolerated procedure: yes Tympanic membrane assessment: Tympanic membrane assessed by LIP pre and post procedure * Rufino Erickson MD - 05/27/2023 10:00 AM EST Chief Complaint Patient presents with: Follow Up: 6 month HPI Krystyna Khanna is a 88 year old female who presents here today for 6 month follow up. Patient with hx of a.fib, HTN, elevated glucose, OA, osteopenia, obesity and those as below Any new concerns today? Ears blocked especially the right. Growth on left ring finger and right medial knee. Any recent ER/hospital visits? no Patient sees Cardiology last visit 02/2023 [facility] Past medical history, appointments, medications, allergies reviewed. 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 No further w/u needed and ok to stay on Xarelto Previous Surgical History PAST SURGICAL HISTORY Procedure Laterality Date 2D ECHO (EXEP) 10/28/2020 EF=60%, 1+ TImod alvarez dysf ARTHRP KNE CONDYLE&PLATU MEDIAL&LAT COMPARTMENTS Left 11/19/2017 Knee replacement, total PAST SURGICAL HISTORY OF 2004 right knee replacement REMV CATARACT EXTRACAP,INSERT LENS Bilateral REVISION OF UPPER EYELID Bilateral 11/21/2021 TUBAL LIGATION Family History FAMILY HISTORY Problem Relation Age of Onset Heart Mother Heart Father Breast Cancer Maternal Aunt Diabetes Maternal Aunt Diabetes Other cousin Cancer Paternal Grandmother stomach Heart Sister Breast Cancer Sister Patient Allergies ALLERGIES Allergen Reactions Propoxyphene Unknown Darvocet A500 [Prop* Unknown Sulfa (Sulfonamide * Other: See Comments didn't feel right, nervousness Current Medications Current Outpatient Medications on File Prior to Visit Medication Sig XARELTO 20 mg tablet Take 1 tablet by mouth once daily. benzonatate (TESSALON PERLES) 100 mg capsule Take 2 capsules by mouth three times a day as needed for cough. albuterol HFA (PROVENTIL HFA, VENTOLIN HFA) 90 mcg/actuation inhaler Inhale 2 Puffs as instructed every 4 hours as needed for wheezing/shortness of breath. metoprolol succinate ER (TOPROL XL) 50 mg 24 hr tablet Take 1 tablet by mouth once daily. benzonatate (TESSALON PERLES) 100 mg capsule Take 1 capsule by mouth three times daily as needed for cough. (Patient not taking: Reported on 02/12/2023) calcium Carbonate 300 mg, 750mg, (TUMS) 300 mg (750 mg) chewable tablet Take 1 tablet by mouth twice daily. doxylamine succinate (NITE TIME SLEEP AID ORAL) Take by mouth as directed. Taking Nature's Bounty Sleep 3 as directed loperamide HCl (IMODIUM) 2 mg tab Take 2 mg by mouth as needed. Cholecalciferol, Vitamin D3, (D3-2000) 50 mcg (2,000 unit) cap Take 1 capsule by mouth once daily. multivitamin tablet Take 1 tablet by mouth once daily. acetaminophen (TYLENOL) 500 mg tablet Take 500 mg by mouth every 6 hours as needed. DOCOSAHEXANOIC ACID/EPA (FISH OIL ORAL) Take 1,000 mg by mouth once daily. No current facility-administered medications on file prior to visit. Social History Social History Tobacco Use Smoking status: Never Smokeless tobacco: Never Vaping Use Vaping Use: Never used Substance Use Topics Alcohol use: No Drug use: No Review of Symptoms REVIEW OF SYSTEMS GENERAL: No weight loss, malaise or fevers NECK: Negative for lumps, goiter, pain and significant neck swelling RESPIRATORY: Negative for cough, hemoptysis, wheezing, COPD, dyspnea or shortness of breath CARDIOVASCULAR: Negative for chest pain, leg swelling, hypertension, CHF or palpitations GI: No nausea, vomiting, or frequent diarrhea and No heartburn or reflux symptoms ENDOCRINE: Negative for polyuria, polydipsia and goiter. NEURO: No history of headaches, syncope, paralysis, seizures or tremors EXAM: BP 132/66 Pulse (!) 55 Resp 16 Wt 80.7 kg (178 lb) SpO2 96% BMI 36.86 kg/m Last 5 Encounter Wt Readings: Date: Wt: 05/27/2023 80.7 kg (178 lb) 03/08/2023 79.4 kg (175 lb) 03/05/2023 80.6 kg (177 lb 12.8 oz) 02/12/2023 79.4 kg (175 lb) 01/11/2023 80.2 kg (176 lb 12.8 oz) General Appearance: Well appearing, alert, in no acute distress, well-hydrated, well nourished. andObese. Neck: Supple, no adenopathy; thyroid symmetric, normal size, no bruits. Lungs: Lungs clear to auscultation. No wheezing, rhonchi, rales.. Heart: RRR without murmur, gallop, or rubs. No ectopy. Abdomen: Normal abdominal exam, Abdomen soft, non-tender. Bowel sounds normal. No masses, organomegaly. Extremities: No deformities, edema, skin discoloration, Good capillary refill. . Peripheral Pulses: Normal. Neurologic: Gait normal. Reflexes normal and symmetric. Sensation grossly intact.. Skin: has a wart on the medial right knee and medial edge of the nail of the left ring finger. Ears: right ear with wax. Health Maintenance List Shingrix Vaccine(1 of 2) Never done RSV Vaccine(1 - 1-dose 60+ series) Never done Influenza Vaccine(1) due on 12/18/2022 Covid-19 Vaccine(2022- season) due on 12/18/2022 Advance Directive Discussion due on 04/19/2023 Depression Assessment due on 04/19/2023 Diabetes Screening due on 11/24/2025 DTaP,Tdap,Td Vaccine(2 - Td or Tdap) due on 11/18/2027 Bone Density Screening Completed Pneumococcal Vaccine: 65+ Completed Data reviewed Component Latest Ref Rng & Units 11/24/2022 02/12/2023 WBC 3.70 - 11.00 k/uL 6.02 RBC 3.90 - 5.20 m/uL 4.57 Hemoglobin 11.5 - 15.5 g/dL 14.4 Hematocrit 36.0 - 46.0 % 44.7 MCV 80.0 - 100.0 fL 97.8 MCH 26.0 - 34.0 pg 31.5 MCHC 30.5 - 36.0 g/dL 32.2 RDW-CV 11.5 - 15.0 % 12.2 Platelet Count 150 - 400 k/uL 58 (L) MPV 9.0 - 12.7 fL 12.7 Neut% % 35.9 Abs Neut (ANC) 1.45 - 7.50 k/uL 2.16 Lymph% % 47.2 Abs Lymph 1.00 - 4.00 k/uL 2.84 Tompkins% % 14.8 Abs Tompkins <0.87 k/uL 0.89 (H) Eosin% % 1.3 Abs Eosin <0.46 k/uL 0.08 Baso% % 0.3 Abs Baso <0.11 k/uL <0.03 Immature Gran % % 0.5 IMMATURE GRANS (ABS) <0.10 k/uL 0.03 NRBC /100 WBC 0.0 Absolute nRBC <0.01 k/uL <0.01 DTYPE Auto Protein, Total 6.3 - 8.0 g/dL 7.4 Albumin 3.9 - 4.9 g/dL 4.6 Calcium 8.5 - 10.2 mg/dL 9.9 Bilirubin, Total 0.2 - 1.3 mg/dL 0.8 Alkaline Phosphatase 34 - 123 U/L 61 AST 13 - 35 U/L 23 ALT 7 - 38 U/L 6 (L) Glucose 74 - 99 mg/dL 112 (H) BUN 7 - 21 mg/dL 14 Creatinine 0.58 - 0.96 mg/dL 0.86 Sodium 136 - 144 mmol/L 140 Potassium 3.7 - 5.1 mmol/L 4.8 Chloride 97 - 105 mmol/L 99 CO2 22 - 30 mmol/L 31 (H) Anion Gap 9 - 18 mmol/L 10 eGFR >=60 mL/min/1.73m 65 Total Cholesterol, Nonfasting <200 mg/dL 168 Triglycerides, Nonfasting <150 mg/dL 156 (H) HDL Cholesterol, Nonfasting >39 mg/dL 42 LDL Cholesterol, Nonfasting <100 mg/dL 95 Non HDL Cholesterol, Nonfasting <130 mg/dL 126 VLDL Cholesterol, Nonfasting <30 mg/dL 31 (H) Total Chol/HDL Ratio, Nonfasting <5.10 mg/dL 4.00 LDL/HDL Ratio, Nonfasting <2.54 mg/dL 2.26 Influenza A PCR Not Detected Not detected Influenza B PCR Not Detected Not detected RSV PCR Not Detected Not detected Hemoglobin A1C 4.3 - 5.6 % 5.8 (H) Estimated Average Glucose mg/dL 120 Vitamin D 25 Hydroxy 31.0 - 80.0 ng/mL 53.0 COVID 19 Result See comment Not detected A/P ASSESSMENT/PLAN: 1. Hypertension, essential - ICD9: 401.9, ICD10: I10 (primary diagnosis) - Controlled - Continue current medications - Recommend home blood pressure monitoring, to bring results to next visit - Encouraged sodium restriction, DASH or Mediterranean diet - Recommend regular aerobic exercise 2. Elevated hemoglobin A1c - ICD9: 790.29, ICD10: R73.09 - patient to cont management with diet. - HEMOGLOBIN A1C (POC) 3. Paroxysmal atrial fibrillation (HCC) - ICD9: 427.31, ICD10: I48.0 - clinically stable management per cardio 4. 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 Obesity, Class II, BMI 35-39.9 - ICD9: 278.00, ICD10: E66.9 - patient to work on weight loss. 6. Encounter for immunization - ICD9: V03.89, ICD10: Z23 - INFLUENZA VACCINE, PRSV FREE, AGE 65+ YR, HIGH DOSE, QUADRIVALENT (FLUZONE HIGH-DOSE): given 7. Common wart - ICD9: 078.19, ICD10: B07.8 - discussed cryo to both areas. Verbal consent given. Both areas treated with cryo with a 40 sec thaw phase. Patient tolerated well. 8. Impacted cerumen of right ear - ICD9: 380.4, ICD10: H61.21 Discussed irrigation with wam water. Verbal consent provided. Right ear was irrigated with warm water for the removal of wax per nursing. Patient tolerated well. A small hard piece of wax remained and could not be removed due to discomfort. Patient advised on use of debrox drops. F/u 6 months extensive check CMP, Lipid, UA, A1c, CBC prior Rufino Erickson MD documented in this encounterM[facility]02-08-2024 Instructions* Patient Instructions* Rufino Erickson MD - 05/27/2023 10:17 AM EST Please get labs and urine test done on or after 11/12/2023 prior to your next visit. documented in this encounterM[facility]12-11-2023 History of Present illness Narrative* Tiff Hall LPN - 03/29/2023 11:45 AM EST Scan on 03/29/2023 11:35 AM by Provider, Марина, MOLLY: Consultation - Cardiology documented in this encounterM[facility] Hospital12-11-2023 Miscellaneous Notes* Telephone Encounter - Antoinette Serrano Cma - 03/29/2023 9:36 AM EST Pt notified and verbalized understanding Antoinette Serrano Cma * Telephone Encounter - Lulu Staton APRN.CNP - 03/29/2023 9:06 AM EST Please let patient know their xray is normal. documented in this encounterM[facility]12-08-2023 History of Present illness Narrative* Sushil Mallory RT(R) - 03/26/2023 10:50 AM EST Radiology Service Progress Note PATIENT NAME: Krystyna Khanna DATE OF SERVICE: March 26, 2023 TIME: 10:44 AM PATIENT IDENTITY VERIFICATION COMPLETED USING TWO (2) IDENTIFIERS: Name and Date of confirmedby patient verbally. FALL SCREENING: Has the patient had 2 falls in the last year or 1 fall with injury or currently using an Ambulatory Assistive Device (Walker, Cane, Wheelchair, Crutches, etc.)? No PATIENT GENDER DATA: Female. status: : No status: NO. PATIENT RELEVANT IMPLANT DATA REVIEWED: Not Applicable RADIOLOGY DEPARTMENT: General X-ray: Exam(s) Completed: Chest X-Ray PERIPHERAL IV DATA: Not applicable SIGNED BY: RT Darek(R) March 26, 2023 10:44 AM documented in this encounterMorrow [facility] Hospital12-07-2023 Miscellaneous Notes* Telephone Encounter - MitchelAntoinette brown Cma - 03/25/2023 5:59 PM EST Pt and son notified and verbalized understanding. Pt is feeling much better Antoinette Serrano Cma * Telephone Encounter - Lulu Staton APRN.CYLINDER BLOCK MECHANIC - 03/25/2023 10:56 AM EST Please let patient know her xray shows changes consistent with bronchitis and a repeat exam is recommended. I have placed an order for a repeat xray. Is patient feeling better? * Telephone Encounter - Tiff Hall LPN - 03/24/2023 1:07 PM EST Pt's son notified of Dr Erickson's message. Son verbalizes understanding. He advises Lulu's office can contact pt or him back with results. Tiff Hall LPN * Telephone Encounter - Rufino Erickson MD - 03/24/2023 12:53 PM EST Advise patient that the provider who ordered the x-ray will be back in the office tomorrow to review and advise on results. * Telephone Encounter - Leslie Clark LPN - 03/24/2023 12:46 PM EST Patient son Espinoza campos mother had seen Lulu Staton CITY ASSESSOR on 03/08/2023 and had repeat chest xray done 03/19, he is asking for results. Aware CITY ASSESSOR is out of the office today. Please advise 03/20/2023 8:22 AM - Radiology, Oru In Impression IMPRESSION: Questionable changes of bronchitis in the right perihilar region. A follow-up exam is recommended. Elementary School Teacher'S Aide: PSCB Transcribe Date/Time: Mar 20 2023 8:16A Dictated by : VERONIKA SAHU MD This examination was interpreted and the report reviewed and electronically signed by: VERONIKA SAHU MD on Mar 20 2023 8:20AM EST Results-Findings * * *Final Report* * * DATE OF EXAM: Mar 19 2023 10:57AM WOX [id number] - XR CHEST 2V FRONTAL/LAT / PROCEDURE REASON: Acute cough * * * * Physician Interpretation * * * * EXAMINATION: CHEST RADIOGRAPH (2 VIEW FRONTAL & LATERAL) CLINICAL HISTORY: Acute cough MQ: [id number] EXAM DATE/TIME: 03/19/2023 10:57 AM COMPARISON: 03/05/2023. RESULT: Lines, tubes, and devices: None. Lungs and pleura: There is hypoinflation of the lungs with crowded lung markings in both lung bases. There are mild and poorly defined increased bronchovascular markings in the right perihilar region which may be related to changes of bronchitis. A follow-up exam is recommended. No consolidation. No lung mass. No pleural effusion. No pneumothorax. Cardiomediastinal silhouette: Normal cardiomediastinal silhouette. Bones and soft tissues: Unremarkable. [facility] History of Present illness Narrative* Sushil Mallory RT(R) - 03/19/2023 10:50 AM EST Radiology Service Progress Note PATIENT NAME: Krystyna Khanna DATE OF SERVICE: March 19, 2023 TIME: 10:47 AM PATIENT IDENTITY VERIFICATION COMPLETED USING TWO (2) IDENTIFIERS: Name and Date of confirmedby patient verbally. FALL SCREENING: Has the patient had 2 falls in the last year or 1 fall with injury or currently using an Ambulatory Assistive Device (Walker, Cane, Wheelchair, Crutches, etc.)? Yes, Patient High Riskfor Falls What interventions were put in place to prevent falls during this visit? Offered Assistance with Transfers/Clothing and Instructed Patient to Remain Seated (Not on Exam Table) Until Exam PATIENT GENDER DATA: Female. status: : No status: NO. PATIENT RELEVANT IMPLANT DATA REVIEWED: Not Applicable RADIOLOGY DEPARTMENT: General X-ray: Exam(s) Completed: Chest X-Ray PERIPHERAL IV DATA: Not applicable SIGNED BY: RT Darek(R) March 19, 2023 10:47 AM documented in [facility]11-20-[facility] History of Present illness Narrative* Lulu Staton, PHI.CYLINDER BLOCK MECHANIC - 03/08/2023 12:58 PM EST Chief Complaint Patient presents with: Follow Up: Pneumonia HPI Krystyna Khanna is a 87 year old female who presents here today for Above Complaints.. Patient presents for follow up for pneumonia. Patient initially diagnosed with pneumonia 02/12 and treated with doxycycline and augmentin. Patient was then seen 03/05 for recurrent cough at which time cxr ws repeated and showed improvement to prior exam. Patient was given an albuterol inhaler and told to start decongestant, currently using mucinex cough and cold. Past medical history, appointments, medications, allergies reviewed. 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 No further w/u needed and ok to stay on Xarelto Previous Surgical History PAST SURGICAL HISTORY Procedure Laterality Date 2D ECHO (EXEP) 10/28/2020 EF=60%, 1+ TImod alvarez dysf ARTHRP KNE CONDYLE&PLATU MEDIAL&LAT COMPARTMENTS Left 11/19/2017 Knee replacement, total PAST SURGICAL HISTORY OF 2004 right knee replacement REMV CATARACT EXTRACAP,INSERT LENS Bilateral REVISION OF UPPER EYELID Bilateral 11/21/2021 TUBAL LIGATION Family History FAMILY HISTORY Problem Relation Age of Onset Heart Mother Heart Father Breast Cancer Maternal Aunt Diabetes Maternal Aunt Diabetes Other cousin Cancer Paternal Grandmother stomach Heart Sister Breast Cancer Sister Patient Allergies ALLERGIES Allergen Reactions Propoxyphene Unknown Darvocet A500 [Prop* Unknown Sulfa (Sulfonamide * Other: See Comments didn't feel right, nervousness Current Medications Current Outpatient Medications on File Prior to Visit Medication Sig albuterol HFA (PROVENTIL HFA, VENTOLIN HFA) 90 mcg/actuation inhaler Inhale 2 Puffs as instructed every 4 hours as needed for wheezing/shortness of breath. benzonatate (TESSALON PERLES) 100 mg capsule Take 1 capsule by mouth three times a day as needed for cough. benzonatate (TESSALON PERLE) 100 mg capsule Take 2 capsules by mouth three times daily as needed. (Patient not taking: Reported on 02/12/2023) XARELTO 20 mg tablet Take 1 tablet by mouth once daily. metoprolol succinate ER (TOPROL XL) 50 mg 24 hr tablet Take 1 tablet by mouth once daily. benzonatate (TESSALON PERLES) 100 mg capsule Take 1 capsule by mouth three times daily as needed for cough. (Patient not taking: Reported on 02/12/2023) calcium Carbonate 300 mg, 750mg, (TUMS) 300 mg (750 mg) chewable tablet Take 1 tablet by mouth twice daily. doxylamine succinate (NITE TIME SLEEP AID ORAL) Take by mouth as directed. Taking Nature's Bounty Sleep 3 as directed loperamide HCl (IMODIUM) 2 mg tab Take 2 mg by mouth as needed. Cholecalciferol, Vitamin D3, (D3-2000) 50 mcg (2,000 unit) cap Take 1 capsule by mouth once daily. multivitamin tablet Take 1 tablet by mouth once daily. acetaminophen (TYLENOL) 500 mg tablet Take 500 mg by mouth every 6 hours as needed. DOCOSAHEXANOIC ACID/EPA (FISH OIL ORAL) Take 1,000 mg by mouth once daily. No current facility-administered medications on file prior to visit. Social History Social History Tobacco Use Smoking status: Never Smokeless tobacco: Never Vaping Use Vaping Use: Never used Substance Use Topics Alcohol use: No Drug use: No Review of Symptoms REVIEW OF SYSTEMS SEE HPI EXAM: BP 130/66 Pulse (!) 58 Resp 16 Wt 79.4 kg (175 lb) SpO2 96% BMI 36.24 kg/m General Appearance: Well appearing, alert, in no acute distress, well-hydrated, well nourished.. Lungs: Lungs clear to auscultation. No wheezing, rhonchi, rales.. Heart: RRR without murmur, gallop, or rubs. No ectopy. Health Maintenance List Shingrix Vaccine(1 of 2) Never done RSV Vaccine(1 - 1-dose 60+ series) Never done Influenza Vaccine(1) due on 12/18/2022 Covid-19 Vaccine( - 2022- season) due on 12/18/2022 Diabetes Screening due on 11/24/2025 DTaP,Tdap,Td Vaccine(2 - Td or Tdap) due on 11/18/2027 Bone Density Screening Completed Advance Directive Discussion Completed Depression Assessment Completed Pneumococcal Vaccine: 65+ Completed ASSESSMENT/PLAN: 1. Acute cough - ICD9: 786.2, ICD10: R05.1 - XR CHEST 2V FRONTAL/LAT - BENZONATATE 100 MG CAPSULE Lulu Staton APRN.CYLINDER BLOCK MECHANIC documented in this encounterM[facility]11-17-[facility]23 History of Present illness Narrative* Sushil Mallory RT(R) - 03/05/2023 9:30 AM EST Radiology Service Progress Note PATIENT NAME: Krystyna Khanna DATE OF SERVICE: March 05, 2023 TIME: 9:37 AM PATIENT IDENTITY VERIFICATION COMPLETED USING TWO (2) IDENTIFIERS: Name and Date of confirmedby patient verbally. FALL SCREENING: Has the patient had 2 falls in the last year or 1 fall with injury or currently using an Ambulatory Assistive Device (Walker, Cane, Wheelchair, Crutches, etc.)? No PATIENT GENDER DATA: Female. status: : No status: NO. PATIENT RELEVANT IMPLANT DATA REVIEWED: Not Applicable RADIOLOGY DEPARTMENT: General X-ray: Exam(s) Completed: Chest X-Ray PERIPHERAL IV DATA: Not applicable SIGNED BY: RT Darek(R) March 05, 2023 9:37 AM documented in this encounterM[facility]11-17-[facility]23 History of Present illness Narrative* Samanta Mock APRN.CYLINDER [employer] MECHANIC - 03/05/2023 9:19 AM EST SUBJECTIVE: Krystyna Khanna is a 87 year old female. Who presents today with cough. Seen here on 02/12 and treated for pneumonia. She was treated with antibiotics. She did feel better. She started having the cough again on wed. She also has a bit of nasal congestion. She has a follow up appointment on Wednesday. She has not had a fever. She has no other symptoms. She is taking tylenol. She has been exposed to others who are sick. She is concerned that the pneumonia is back and would like a chest xray. HPI PAST MEDICAL HISTORY Diagnosis Date Advance directive discussed with patient 11/20/2021 Packets given 11/20/2021 Atrial fibrillation (HCC) Bilateral knee pain 01/09/2010 Elevated hemoglobin A1c 11/08/2017 Encounter for Medicare annual wellness exam 09/25/2020 Medical B eligibilty date 02/18/2000 Date of last exam 10/25/2020 Hepatitis thinks B History of congestive heart failure History of heart attack Hypertension, essential 11/08/2017 Obesity, Class II, BMI 35-39.9 11/08/2017 Osteoarthritis Osteopenia, senile 09/25/2020 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 No further w/u needed and ok to stay on Xarelto FAMILY HISTORY Problem Relation Age of Onset Heart Mother Heart Father Breast Cancer Maternal Aunt Diabetes Maternal Aunt Diabetes Other cousin Cancer Paternal Grandmother stomach Heart Sister Breast Cancer Sister Social History Tobacco Use Smoking status: Never Smokeless tobacco: Never Vaping Use Vaping Use: Never used Substance Use Topics Alcohol use: No Drug use: No ALLERGIES Allergen Reactions Propoxyphene Unknown Darvocet A500 [Prop* Unknown Sulfa (Sulfonamide * Other: See Comments didn't feel right, nervousness Current Outpatient Medications Medication Sig Dispense Refill XARELTO 20 mg tablet Take 1 tablet by mouth once daily. 90 tablet 1 metoprolol succinate ER (TOPROL XL) 50 mg 24 hr tablet Take 1 tablet by mouth once daily. 90 tablet3 calcium Carbonate 300 mg, 750mg, (TUMS) 300 mg (750 mg) chewable tablet Take 1 tablet by mouth twice daily. doxylamine succinate (NITE TIME SLEEP AID ORAL) Take by mouth as directed. Taking Nature's Bounty Sleep 3 as directed loperamide HCl (IMODIUM) 2 mg tab Take 2 mg by mouth as needed. Cholecalciferol, Vitamin D3, (D3-2000) 50 mcg (2,000 unit) cap Take 1 capsule by mouth once daily. multivitamin tablet Take 1 tablet by mouth once daily. acetaminophen (TYLENOL) 500 mg tablet Take 500 mg by mouth every 6 hours as needed. DOCOSAHEXANOIC ACID/EPA (FISH OIL ORAL) Take 1,000 mg by mouth once daily. benzonatate (TESSALON PERLES) 100 mg capsule Take 1 capsule by mouth three times a day as needed for cough. 9 capsule 0 benzonatate (TESSALON PERLE) 100 mg capsule Take 2 capsules by mouth three times daily as needed. (Patient not taking: Reported on 02/12/2023) 30 capsule 0 benzonatate (TESSALON PERLES) 100 mg capsule Take 1 capsule by mouth three times daily as needed for cough. (Patient not taking: Reported on 02/12/2023) 30 capsule 0 No current facility-administered medications for this visit. OBJECTIVE: BP 116/72 Pulse 66 Temp 36.7 C (98.1 F) Resp 16 Wt 80.6 kg (177 lb 12.8 oz) SpO2 96% BMI 36.82 kg/m ROS all other systems reviewed and are negative Physical Exam Constitutional: Well developed, well nourished, NAD, A&O X3. ENT: Head is atraumatic, airway patent, mucosal membranes moist. Neck: supple with no palpable lymph nodes Cardiac: Heart tone normal rate and rhythm Respiratory: Breath sounds clear : no CVA tenderness MS: no swelling, tenderness or deformity in upper or lower extremities, no midline tenderness in cervical, thoracic or lumbar spine. Neuro: strength sensation and coordination intact. CN II-XII grossly intact, Skin: warm and dry with out rash, lesion or ecchymosis on exposed skin Psych: alert appropriate, speech clear It was a pleasure to take care of Krystyna Khanna today. An xray was obtained and shows that the pneumonia has significantly improved. Her lung sounds are clear and she has no fever. At this time I donot believe she needs another course of antibiotics. For her nasal congestion and the post nasal drip she may use a decongestant. I will send in an inhaler for her bronchospasms. She will keep her scheduled appointment with her doctor on wednesday Patient will follow up with family physician. They may return to the Urgent Care or go to the ER for worsening symptoms or concerns. Patient verbalized understanding of plan of care and is in agreement. ASSESSMENT/PLAN: 1. Subacute cough - ICD9: 786.2, ICD10: R05.2 (primary diagnosis) - XR CHEST 2V FRONTAL/LAT 2. Bronchospasm - ICD9: 519.11, ICD10: J98.01 - ALBUTEROL SULFATE HFA 90 MCG/ACTUATION AEROSOL INHALER Samanta Mock APRN.KRISTINE documented in [facility] encounterM[facility]11-[facility]23 Miscellaneous Notes* Telephone Encounter - Rolly Gaytan RN - 02/26/2023 8:13 AM EST Phoned patient and given provider's message below with verbalized understanding. Patient agreeable.Scheduled f/u appt. * Telephone Encounter - Rufino Erickson MD - 02/26/2023 7:50 AM EST Patient recently seen in [facility] and diagnosed with pneumonia. Needs f/u in 10-12 days to re-assess and to place order for repeat chest x-ray in 3-4 weeks. documented in this encounterM[facility]10-27-2023 Miscellaneous Notes* Addendum Note - Samanta Mock APRN.CNP - 02/12/2023 11:03 AM EDTAddended by: SAMANTA MOCK on: 02/12/2023 11:03 AM Modules accepted: Orders documented in this encounterM[facility]10-27-2023 History of Present illness Narrative* Sushil Mallory RT(R) - 02/12/2023 10:30 AM EDT Radiology Service Progress Note PATIENT NAME: Krystyna Khanna DATE OF SERVICE: February 12, 2023 TIME: 10:24 AM PATIENT IDENTITY VERIFICATION COMPLETED USING TWO (2) IDENTIFIERS: Name and Date of confirmedby patient verbally. FALL SCREENING: Has the patient had 2 falls in the last year or 1 fall with injury or currently using an Ambulatory Assistive Device (Walker, Cane, Wheelchair, Crutches, etc.)? No PATIENT GENDER DATA: Female. status: : No status: NO. PATIENT RELEVANT IMPLANT DATA REVIEWED: Not Applicable RADIOLOGY DEPARTMENT: General X-ray: Exam(s) Completed: Chest X-Ray PERIPHERAL IV DATA: Not applicable SIGNED BY: RT Darek(R) February 12, 2023 10:24 AM documented in this encounterM[facility]10-27-2023 History of Present illness Narrative* Samanta Mock APRN.CNP - 02/12/2023 10:16 AM EDT SUBJECTIVE: Krystyna Khanna is a 87 year old female. Who presents today with cough and congestion for the last 4days. She had a slight fever. She has taken tylenol for her symptoms. She has been exposed to people at work who are sick. She would like tested today for Covid and flu. She called her doctor today and they told her to come here for a chest xray HPI PAST MEDICAL HISTORY Diagnosis Date Advance directive discussed with patient 11/20/2021 Packets given 11/20/2021 Atrial fibrillation (HCC) Bilateral knee pain 01/09/2010 Elevated hemoglobin A1c 11/08/2017 Encounter for Medicare annual wellness exam 09/25/2020 Medical B eligibilty date 02/18/2000 Date of last exam 10/25/2020 Hepatitis thinks B History of congestive heart failure History of heart attack Hypertension, essential 11/08/2017 Obesity, Class II, BMI 35-39.9 11/08/2017 Osteoarthritis Osteopenia, senile 09/25/2020 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 No further w/u needed and ok to stay on Xarelto FAMILY HISTORY Problem Relation Age of Onset Heart Mother Heart Father Breast Cancer Maternal Aunt Diabetes Maternal Aunt Diabetes Other cousin Cancer Paternal Grandmother stomach Heart Sister Breast Cancer Sister Social History Tobacco Use Smoking status: Never Smokeless tobacco: Never Vaping Use Vaping Use: Never used Substance Use Topics Alcohol use: No Drug use: No ALLERGIES Allergen Reactions Propoxyphene Unknown Darvocet A500 [Prop* Unknown Sulfa (Sulfonamide * Other: See Comments didn't feel right, nervousness Current Outpatient Medications Medication Sig Dispense Refill metoprolol succinate ER (TOPROL XL) 50 mg 24 hr tablet Take 1 tablet by mouth once daily. 90 tablet3 calcium Carbonate 300 mg, 750mg, (TUMS) 300 mg (750 mg) chewable tablet Take 1 tablet by mouth twice daily. doxylamine succinate (NITE TIME SLEEP AID ORAL) Take by mouth as directed. Taking Nature's Bounty Sleep 3 as directed loperamide HCl (IMODIUM) 2 mg tab Take 2 mg by mouth as needed. Cholecalciferol, Vitamin D3, (D3-2000) 50 mcg (2,000 unit) cap Take 1 capsule by mouth once daily. multivitamin tablet Take 1 tablet by mouth once daily. acetaminophen (TYLENOL) 500 mg tablet Take 500 mg by mouth every 6 hours as needed. DOCOSAHEXANOIC ACID/EPA (FISH OIL ORAL) Take 1,000 mg by mouth once daily. benzonatate (TESSALON PERLE) 100 mg capsule Take 2 capsules by mouth three times daily as needed. (Patient not taking: Reported on 02/12/2023) 30 capsule 0 XARELTO 20 mg tablet Take 1 tablet by mouth once daily. 90 tablet 1 benzonatate (TESSALON PERLES) 100 mg capsule Take 1 capsule by mouth three times daily as needed for cough. (Patient not taking: Reported on 02/12/2023) 30 capsule 0 No current facility-administered medications for this visit. OBJECTIVE: BP 136/68 Pulse 68 Temp 37.8 C (100.1 F) Resp 20 Wt 79.4 kg (175 lb) SpO2 93% BMI 36.24kg/m ROS: All systems reviewed and are otherwise negative Constitutional: Well developed, well nourished, A&O X3. ENT: Head is atraumatic, airway patent, mucosal membranes moist Neck: full ROM, no meningeal signs Cardiac: heart tones regular rate and rhythm Respiratory: lung CTA + productive cough rhonchi in bases : no CVA tenderness MS: moves all extremities, no deformities noted Neuro: GCS 15 no focal deficits Skin: warm and dry with out rash, lesion or ecchymosis Psych: alert appropriate, speech clear Diagnostic testing: COVID/ Influenza A and B testing performed and results will be complete in the next 24-72 hours. The patient will be notified of the results in My Chart. MDM: Patient presented to the [facility] today for COVID and Influenza testing. Vital signs were evaluated and found to be within normal limits. Krystyna Khanna was in no acute distress. We discussed theCOVID results will be back in the next 1-2 days. Her chest xray shows a pneumonia today. She will be treated with antibiotics. She is also requesting a refill of the tessalon pearls. This has been given. We have discussed over the counter medications to use for their symptoms. They will follow-up with their family doctor in the next 2-3 days. If symptoms worsen they will go straight to the emergency department for further evaluation and treatment. Patient and her son voiced understanding of the plan of care and are in agreement. ASSESSMENT/PLAN: 1. Acute cough - ICD9: 786.2, ICD10: R05.1 (primary diagnosis) - XR CHEST 2V FRONTAL/LAT - BENZONATATE 100 MG CAPSULE - COVID & INFLUENZA A/B & RSV NAAT, ROUTINE - COVID NAAT, UPPER RESPIRATORY, ROUTINE - ROUTINE FLU A/B + RSV 2. Bacterial pneumonia - ICD9: 482.9, ICD10: J15.9 - DOXYCYCLINE MONOHYDRATE 100 MG TABLET - AMOXICILLIN 875 MG-POTASSIUM CLAVULANATE 125 MG TABLET Samanta Mock APRN.CNP Addendum : covid test was ordered documented in this encounterM[facility]09-25-2023 Instructions* Patient Instructions* Ulices Moya APRN.CNP - 01/11/2023 3:30 PM EDT ASSESSMENT/PLAN: 1. Protracted URI - ICD9: 465.9, ICD10: J06.9 All symptoms likely viral today -hold antibiotic prescription for 3-5 days if continued or worsening symptoms occur fill the prescription. - Symptomatic treatment with prn analgesia - Supportive care with fluids and rest - Follow up in 3-5 days if symptoms persist or sooner if worsening of symptoms - DOXYCYCLINE MONOHYDRATE 100 MG TABLET - BENZONATATE 100 MG CAPSULE documented in this encounterM[facility]09-25-2023 History of Present illness Narrative* Ulices Moya APRN.CNP - 01/11/2023 3:12 PM EDT Subjective HPI HPI Krystyna Khanna is a 87 year old female who presents today for CC of cough, congestion. This started 1 week ago/improving. Has tried otc medication and tessalon pearls. Symptoms are worsened by nothing. Risk factors hx of bronchitis. nonsmoker. 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 No further w/u needed and ok to stay on Xarelto PAST SURGICAL HISTORY Procedure Laterality Date 2D ECHO (EXEP) 10/28/2020 EF=60%, 1+ TImod alvarez dysf ARTHRP KNE CONDYLE&PLATU MEDIAL&LAT COMPARTMENTS Left 11/19/2017 Knee replacement, total PAST SURGICAL HISTORY OF 2004 right knee replacement REMV CATARACT EXTRACAP,INSERT LENS Bilateral REVISION OF UPPER EYELID Bilateral 11/21/2021 TUBAL LIGATION ALLERGIES Propoxyphene, Darvocet A500 [Propoxyphene N-Acetaminophen], and Sulfa (Sulfonamide Antibiotics) MEDICATIONS XARELTO 20 mg tablet Take 1 tablet by mouth once daily. metoprolol succinate ER (TOPROL XL) 50 mg 24 hr tablet Take 1 tablet by mouth once daily. benzonatate (TESSALON PERLES) 100 mg capsule Take 1 capsule by mouth three times daily as needed for cough. calcium Carbonate 300 mg, 750mg, (TUMS) 300 mg (750 mg) chewable tablet Take 1 tablet by mouth twice daily. doxylamine succinate (NITE TIME SLEEP AID ORAL) Take by mouth as directed. Taking Nature's Bounty Sleep 3 as directed loperamide HCl (IMODIUM) 2 mg tab Take 2 mg by mouth as needed. Cholecalciferol, Vitamin D3, (D3-2000) 50 mcg (2,000 unit) cap Take 1 capsule by mouth once daily. multivitamin tablet Take 1 tablet by mouth once daily. acetaminophen (TYLENOL) 500 mg tablet Take 500 mg by mouth every 6 hours as needed. DOCOSAHEXANOIC ACID/EPA (FISH OIL ORAL) Take 1,000 mg by mouth once daily. FAMILY HISTORY Problem Relation Age of Onset Heart Mother Heart Father Breast Cancer Maternal Aunt Diabetes Maternal Aunt Diabetes Other cousin Cancer Paternal Grandmother stomach Heart Sister Breast Cancer Sister Social History Tobacco Use Smoking status: Never Smokeless tobacco: Never Vaping Use Vaping Use: Never used Substance Use Topics Alcohol use: No Drug use: No Review of Systems Constitutional: Negative for fever. HENT: Positive for congestion and sore throat. Negative for ear pain, nosebleeds and sinus pain. Respiratory: Positive for cough. Negative for shortness of breath and wheezing. Cardiovascular: Negative for chest pain. Musculoskeletal: Negative for neck pain. Skin: Negative for itching and rash. Objective Blood pressure 149/70, pulse (!) 52, temperature 37.1 C (98.7 F), resp. rate 18, weight 80.2 kg (176 lb 12.8 oz), SpO2 93 %. O2 Recheck by provider 97%ra. Physical Exam Constitutional: General: She is not in acute distress. Appearance: She is not toxic-appearing or diaphoretic. HENT: Head: Normocephalic and atraumatic. Cardiovascular: Rate and Rhythm: Normal rate and regular rhythm. Heart sounds: Normal heart sounds, S1 normal and S2 normal. Pulmonary: Effort: Pulmonary effort is normal. Breath sounds: Normal breath sounds. Lymphadenopathy: Cervical: No cervical adenopathy. Right cervical: No superficial cervical adenopathy. Left cervical: No superficial cervical adenopathy. Neurological: Mental Status: She is alert and oriented to person, place, and time. Gait: Gait is intact. ASSESSMENT/PLAN: 1. Protracted URI - ICD9: 465.9, ICD10: J06.9 All symptoms likely viral today -hold antibiotic prescription for 3-5 days if continued or worsening symptoms occur fill the prescription. - Symptomatic treatment with prn analgesia - Supportive care with fluids and rest - Follow up in 3-5 days if symptoms persist or sooner if worsening of symptoms - DOXYCYCLINE MONOHYDRATE 100 MG TABLET - BENZONATATE 100 MG CAPSULE Ulices Moya APRN.CYLINDER BLOCK MECHANIC documented in this encounterM[facility]09-11-2023 History of Present illness Narrative* Tiffani Kebede, PT - 12/28/2022 2:42 PM EDT Episode Visit Count: 7 Therapist That Will Accept/Oversee The Plan Of Care: Tiffani Kebede Start of Care Date: 11/30/22 Onset Date: 11/30/21 Plan of Care Certification Date: 11/30/22 Next Certification Due Date: 01/04/23 Patient Identified by Name and Date of : Yes REHABILITATION AND SPORTS THERAPY PHYSICAL THERAPY DISCONTINUANCE OF CARE PLAN OF CARE UPDATE: Assessment: Krystyna Khanna is discontinued from Physical Therapy services due to maximal benefit.. Patient was seen for 7 visits from Start of Care Date: 11/30/22 to 12/28/2022 and treatment included:Therapeutic exercise, Neuromuscular re-education, Therapeutic activities, and Self-nursing home management. Goals for Episode of Care: created on 11/30/22 through 01/11/23 Goals updated on 12/28/2022. Independent in home exercises. -- MET Patient will decrease pain to 1-2/10 with functional activities to allow patient to improve ambulation, transfers, and standing tolerance for ADLs. -- PARTIALLY MET, limited tolerance with standing Stand / Walk 15-20 min without pain/symptoms. -- NOT MET Sit 1-2 hours without pain/symptoms to allow for seated activities/rest -- MET Maintain proper sitting posture throughout session -- MET Patient Goals: standing >10 min -- PARTIALLY MET SUBJECTIVE: Pt. reports she continues to get pain with prolonged standing/walking. She does have difficulty standing and talking to people at [employer] but could maybe do 10 minutes, but not much longer than that.. Patient Goals: standing >10 min Functional Limitations: standing, walking in the community, cleaning Pain: Pain Pain Level: 0 Pain Location: Low Back/Lumbar Spine - Right Frequency: Intermittent Post Treatment Pain Post Treatment Pain Level: 0 Post Treatment Pain Location: Low Back/Lumbar Spine - Right PROMIS Scales Higher is Better 11/29/2022 Phys Func - Score 29 (severe dysfunction) Phys Func - Percentile 2 % Self-Eff Symptom - Score 38 (Low) Self-Eff Symptom - Percentile 12 % T-scores: mean of general population = 50. 5 points is clinically meaningfully difference Percentiles provide an indication of how the patient's score ranks in relation to the general population. Higher percentile rankings indicate better function/quality of life. 50th percentile is the average of the general population and indicates half of respondents had a worse score. OBJECTIVE MEASURES WITH LEVEL OF FUNCTION: TREATMENT: Therapeutic Exercise: 1: *Seated lumbar felxion without ball 2x10 (instructed to use for pain mangagement) 2: Seated TA activation 2x10 with 2-3 second 3: seated TA activation with alt LE marches 3x30 sec (cues to avoid lifting both feet together.) 4: seated alt UE raises attempted 2x - pt. unable to follow max cues 5: seated alt LE raises attempted 2x - pt. unable to follow max cues 6: seated 55 cm physioball BUE press down into ball 2x15 7: seated TA brace 1x15 hands press down into knees Skilled Intervention: Patient was educated in proper exercise technique and purpose for exercises. Reviewed and educated patient on additions/changes for home exercise program as above (*). Skilled judgment was provided in selection of appropriate interventions. Provided written instruction for home exercise program to facilitate proper performance and compliance. Correct performance of therapeutic exercises was facilitated with verbal, visual, and tactile cuing. Educated patient on rationale for performing exercises in regards to decreasing fatigue , increase ease of ADL, and ROM and function . Patient education as noted. Billing Therapeutic Exercise Treatment Minutes: 40 Total Session Time (minutes): 40 Session Start Time : 1440 Session Stop Time : 1520 Tiffani Kebede PT [facility] History of Present illness Narrative* Tiffani Kebede PT - 12/18/2022 1:53 PM EDT Episode Visit Count: 5 Therapist That Will Accept/Oversee The Plan Of Care: Tiffani Kebede Start of Care Date: 11/30/22 Onset Date: 11/30/21 Plan of Care Certification Date: 11/30/22 Next Certification Due Date: 01/04/23 Patient Identified by Name and Date of : Yes REHABILITATION AND SPORTS THERAPY PHYSICAL THERAPY TREATMENT NOTE ASSESSMENT: Krystyna Khanna tolerated the session with fatigue and no issues. She demonstrated improvements in endurance with core strengthening. The patient will continue to benefit from ongoing skilled physical therapy to progress toward set goals. PLAN FOR NEXT VISIT: SUBJECTIVE: Pt reports that she didn't too much yesterday and her back doesn't feel too bad today. Pt states that she still has back pain, but it isn't sharp like it was. Pain: Pain Pain Level: 0 Pain Location: Low Back/Lumbar Spine - Right Frequency: Intermittent (increases with walking and movement) Post Treatment Pain Post Treatment Pain Location: Low Back/Lumbar Spine - Right OBJECTIVE MEASURES WITH LEVEL OF FUNCTION: TREATMENT: Therapeutic Exercise: 1: Seated TA activation 2x10 with 2-3 second (Pt stated, I think this exercise helps.) 2: *Seated TA activation with alt UE 3x10 B 3: *Seated TA activation with alt LE marching 3x10 B 4: Seated pink theraband perturbations 3x15 forward, right, and left. 5: *Seated push into physioball 2x10 6: Seated push into physioball with 10 second holds x 10 7: Seated TA activation alt UE with alt LE 1x10 B 8: Seated Pallof's press with pink therbabnd 2x10 each side Skilled Intervention: Patient was educated in proper exercise technique and purpose for exercises. Reviewed and educated patient on additions/changes for home exercise program as above (*). Skilled judgment was provided in selection of appropriate interventions. Provided written instruction for home exercise program to facilitate proper performance and compliance. Correct performance of therapeutic exercises was facilitated with verbal and visual cuing. Manual Therapy: Skilled Intervention: Manual skills to improve joint mobility, ROM, and decrease pain. Utilized anatomy knowledge of the therapist, and assessment of patient's response to intervention. Billing Therapeutic Exercise Treatment Minutes: 36 Self-Care/Home Management Treatment Minutes: 8 Skilled Treatment Time Minutes (timed and untimed codes): 44 Total Session Time (minutes): 44 Session Start Time : 1350 Session Stop Time : 1434 DERREK Mckeon PT documented in this [facility] History of Present illness Narrative* Tiffani Kebede PT - 12/11/2022 1:56 PM EDT Episode Visit Count: 3 Therapist That Will Accept/Oversee The Plan Of Care: Tiffani Kebede Start of Care Date: 11/30/22 Onset Date: 11/30/21 Plan of Care Certification Date: 11/30/22 Next Certification Due Date: 01/04/23 Patient Identified by Name and Date of : Yes REHABILITATION AND SPORTS THERAPY PHYSICAL THERAPY TREATMENT NOTE ASSESSMENT: Krystyna Khanna tolerated the session with fatigue and expected muscle soreness. She demonstrated improvements in tolerance to exercise. The patient will continue to benefit from ongoing skilled physical therapy to progress toward set goals. PLAN FOR NEXT VISIT: Asses response to seated exercises and give seated TA activation if favorable for HEP. SUBJECTIVE: Pt reports that her back doesn't hurt all the time. Pt states that she feels that the exercises are helping. Pain: Pain Pain Level: 5 Pain Location: Low Back/Lumbar Spine - Right Description: Aching Post Treatment Pain Post Treatment Pain Location: Low Back/Lumbar Spine - Right OBJECTIVE MEASURES WITH LEVEL OF FUNCTION: Good posture noted with seated exercises. TREATMENT: Therapeutic Exercise: 1: hook lying TA activation 2x10 2: DKTC 3x30 seconds 3: Hook lying TA activation with alt marching 2x10 B 4: Hooklying TA activation with push into 55 cm physioball 3x10 5: Seated pink theraband perturbations 3x15 forward, right, and left. 6: Seated TA activation 2x10 Skilled Intervention: Patient was educated in proper exercise technique and purpose for exercises. Skilled judgment was provided in selection of appropriate interventions. Correct performance of therapeutic exercises was facilitated with verbal and visual cuing. Therapeutic Activity: 1: *reviewed to make sure pt had proper technique as she had questions about it. Skilled Intervention: Education as noted above. Billing Therapeutic Exercise Treatment Minutes: 38 Therapeutic Activity Treatment Minutes: 2 Total Treatment Time Minutes (timed/untimed): 40 Session Start Time : 1355 Session Stop Time : 1435 DERREK Mckeon, PT documented in this [facility]08-[facility] History of Present illness Narrative* Tiffani Kebede, PT - 12/07/2022 3:32 PM EDT Episode Visit Count: 2 Therapist That Will Accept/Oversee The Plan Of Care: Tiffani Kebede Start of Care Date: 11/30/22 Onset Date: 11/30/21 Plan of Care Certification Date: 11/30/22 Next Certification Due Date: 01/04/23 REHABILITATION AND SPORTS THERAPY PHYSICAL THERAPY TREATMENT NOTE ASSESSMENT: Krystyna Khanna tolerated the session with no issues. She demonstrated difficulty with following cues for TA activation exercises. Improved with continued reps. The patient will continue to benefit from ongoing skilled physical therapy to progress toward set goals. PLAN FOR NEXT VISIT: Continue TA stabilization strengthening - progress as appropriate, add to HEP depending on amount of cues needed for technique SUBJECTIVE: It's just stiff today. Reports compliance with HEP, but it is helping. She admits she does not like to do her HEP because it is challenging. She continues to have limited tolerance with standing. Pain: Pain Pain Level: 6 Pain Location: Low Back/Lumbar Spine - Right Description: Aching Frequency: Standing Post Treatment Pain Post Treatment Pain Level: Better Post Treatment Pain Location: Low Back/Lumbar Spine - Right OBJECTIVE MEASURES WITH LEVEL OF FUNCTION: TREATMENT: Therapeutic Exercise: 1: hook lying TA activation 2x10 (tactile cues for technique, instructed pt. how to palpate TA activation) 2: hook lying BLE KTC stretch 1x10 -- DC due to discomfort 3: *modified KTC, single leg 3x30 sec each side (c/o pain with R KTC, no symptoms with L KTC) Skilled Intervention: Patient was educated in proper exercise technique and purpose for exercises. Skilled judgment was provided in selection of appropriate interventions. Correct performance of therapeutic exercises was facilitated with verbal, visual, and tactile cuing. Educated patient on rationale for performing exercises in regards to decreasing fatigue , increase ease of ADL, and ROM and function . Therapeutic Activity: 1: *log roll 1x with CGA and verbal cues 1x Skilled Intervention: Educated on proper/safe technique for activities performed today. Activity progression based on professional judgment. Provided written instruction for home program to facilitate proper performance and compliance. Neuromuscular Re-Education: 1: hook lying TA activation with biofeedback 20 mmHg to 40 mm Hg to 24 mmHg 3x10 (verbal, visual, and tactile cues for technique and to avoid holding the breath) 2: hook lying marches with TA activation with bio feedback 20 mmHg to 40 mmHg held at 24 mmHg 2 sets 10 reps Skilled Intervention: Education in proprioceptive/kinesthetic awareness during TA activation technique with biofeedback. Patient education as noted. Self-Longterm Management: 1: *discussed selecting mattresses based on comfort, PT encouraged replacing a mattress that is >10 years old. Skilled Intervention: Skilled judgment in the selection of proper modification for activity of daily living/home management based on clinical presentation, deficits, and needs. Reviewed patient specific diagnosis in relation to activities of daily living/home management. Activity progression based on professional judgement. Reviewed and educated patient on additions/changes for home program as noted above with an (*). Billing Therapeutic Exercise Treatment Minutes: 15 Therapeutic Activity Treatment Minutes: 5 Neuromuscular Re-Education Treatment Minutes: 10 Self-Care/Home Management Treatment Minutes: 10 Total Treatment Time Minutes (timed/untimed): 40 Session Start Time : 1530 Session Stop Time : 1610 Tiffani O'Justin, PT documented in this [facility]08-14-[facility] History of Present illness Narrative* Tiffani Kebede, PT - 11/30/2022 1:49 PM EDT Episode Visit Count: 1 Therapist That Will Accept/Oversee The Plan Of Care: Tiffani Kebede Start of Care Date: 11/30/22 Onset Date: 11/30/21 Plan of Care Certification Date: 11/30/22 Next Certification Due Date: 01/04/23 Patient Identified by Name and Date of : Yes REHABILITATION AND SPORTS THERAPY PHYSICAL THERAPY EVALUATION PLAN OF CARE: Assessment: Krystyna Khanna presents with diagnosis of chronic 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 that interferes with standing, walking in the community, cleaning . She presents with impairments in ADL's, balance, gait, independence in exercise, joint mobility, overall function, patient reported outcome measures, posture, strength, and symptom management. PROMIS (Patient-Reported Outcomes Measurement Information System) scores were reviewed and physical function domain and self efficacy domain identified as a rehabilitation concern. Prognosis for therapy is Good due to: current objective clinical presentation, within-session changes . She will benefit from skilled therapy services to meet the goals established for this plan of care as noted below. Classification Low Back Pain Subgroup Classification: Core stabilization subgroup: recommended visits 10. Core Stabilization Subgroup Classification based on: pain with transitional movements Goals for Episode of Care: created on 11/30/22 through 01/11/23 Independent in home exercises. Patient will decrease pain to 1-2/10 with functional activities to allow patient to improve ambulation, transfers, and standing tolerance for ADLs. Stand / Walk 15-20 min without pain/symptoms. Sit 1-2 hours without pain/symptoms to allow for seated activities/rest Maintain proper sitting posture throughout session Patient Goals: standing >10 min Planned Interventions, Frequency, and Duration: Current Frequency: 2x/week Duration: 6 weeks Total Number of Visits Planned: 12 Planned Treatment Interventions: Therapeutic exercise (71801), Neuromuscular re- education (26841), Manual therapy (93361), Therapeutic activities (89727), Self- nursing home management ([id number]), Gait Training ([id number]) PLAN FOR NEXT VISIT: assess symptom response to KTC and TA in hook lying, continue core stabilization strengthening Patient demonstrates good understanding of plan of care and treatment. The above goals and plan of care were discussed and agreed upon by patient/family. SUBJECTIVE: for low back pain that onset about 1 year ago. Superior endplate fx of L2 per pt. chart. Pt. completes exercise videos at home per the [employer]. She is diligent with them 1x/day. She does not complete exercises that cause increased symptoms. She has had about 1-2 falls over the past year. Uses a straight cane to ambulate. Lives with family, but does not require assistance for ADLs. She has diffculty with prolonged sitting or standing. Patient Goals: standing >10 min Functional Limitations: standing, walking in the community, cleaning Prior Level of Function: Independent without limitations Relevant History Past Relevant Medical Conditions: Hypertension, Fracture, Cardiac, Atrial Fibrillation (osteopenia) Employment: Retired Home Environment Patient Lives With: (son) Equipment Owned: Cane Transportation: Travels as a passenger Intake Information: Prescription present Falls Interview: Two or more falls in the last year Falls Intervention: Instructed patient on safety and use of assistive device and awareness in regards to falls prevention., More thorough falls assessment to be performed Red Flags Vertebral Fracture Red Flags: Female, Age >70 Vertebral Fracture Clinical Reasoning: Proceed with caution due to the above (1- 2) risk factors Abdominal Aortic Aneurysm Red Flags: Age >60 Abdominal Aortic Aneurysm Clinical Reasoning: Proceed with caution Cancer Red Flags: Age >50 or <20 Cancer Clinical Reasoning: Proceed with caution Infection Clinical Reasoning: No identified risk factors. Cauda Equina Syndrome Clinical Reasoning: No identified risk factors. Red Flags - Cervical Cancer Red Flags: Age >50 or <20 Cancer Clinical Reasoning: Proceed with caution Infection Clinical Reasoning: No identified risk factors. Spine History Symptoms Location at Onset: Back Pain is Worse Always: Prolonged positions, Sitting, Standing, Walking Pain is Better Always: Lying, Sitting, Rest Sleep Affected by Pain: Not affected by pain Pain: Pain Pain Level: 8 Pain Location: Low Back/Lumbar Spine - Right Description: Aching Frequency: Standing Post Treatment Pain Post Treatment Pain Level: Better Post Treatment Pain Location: Low Back/Lumbar Spine - Right Post Treatment Pain Description: Aching Post Treatment Symptoms: It doesn't feel to bad now. PROMIS Scales Higher is Better 11/29/2022 Phys Func - Score 29 (severe dysfunction) Phys Func - Percentile 2 % Self-Eff Symptom - Score 38 (Low) Self-Eff Symptom - Percentile 12 % T-scores: mean of general population = 50. 5 points is clinically meaningfully difference Percentiles provide an indication of how the patient's score ranks in relation to the general population. Higher percentile rankings indicate better function/quality of life. 50th percentile is the average of the general population and indicates half of respondents had a worse score. OBJECTIVE MEASURES WITH LEVEL OF FUNCTION: Lumbar Spine AROM Lumbar Flexion: Normal Lumbar Extension: Normal Lumbar R Side-Bend: Normal (non-concordant pain, discomfort reported) Lumbar L Side-Bend: Normal (non-concordant pain, discomfort reported) Lumbar R Rotation: Normal Lumbar L Rotation: Normal Gait Gait: Modified Independent Gait Distance (feet): 100 Gait Device: Cane Gait Deviations: General Deviations General Deviations/Observations: Lateral sway increased, Flexed trunk posture, Scarlet decreased, Trunk Control Decreased, Step length decreased, Wide base of support Education: Education Learning Preferences: Demonstration, Explanation, Performance Barriers: Cognitive Limitations Learning/educational needs: Plan of Care, Home exercise program, Gait Training, Posture Education Provided: Yes, see treatment interventions for education provided Education Provided To: Patient, Caregiver Education Mode/Type: Demonstration, Explanation/Discussion, Literature/Printed Materials, Performance Response to Education/Teach Back: States/Identifies, Return Demonstration TREATMENT: PT Treatment Interventions: Therapeutic Exercise, Self-Longterm Management Evaluation Therapeutic Exercise: 1: *hook lying TA activation 3-4x10 (tactile cues for technique) 2: *hook lying BLE KTC stretch 3x30 seconds, twice daily 3: *HEP 2x/day, in addition to current exercise program through [facility] Skilled Intervention: Patient was educated in proper exercise technique and purpose for exercises. Skilled judgment was provided in selection of appropriate interventions. Provided written instruction for home exercise program to facilitate proper performance and compliance. Correct performance of therapeutic exercises was facilitated with verbal, visual, and tactile cuing. Educated patient on rationale for performing exercises in regards to decreasing fatigue , increase ease of ADL, and ROM and function . Patient education as noted. Self-Longterm Management: 1: *stopping any exercise that causes increased symptoms 2: *discussed how core stabilization strengthening can reduce low back pain and prevent worsening symptoms 3: *discussed how other medical dx such as UTI can mimic and overlap with low back symtoms from theMSK 4: *postural education Skilled Intervention: Skilled judgment in the selection of proper modification for activity of daily living/home management based on clinical presentation, deficits, and needs. Reviewed patient specific diagnosis in relation to activities of daily living/home management. Activity progression based on professional judgement. Reviewed and educated patient on additions/changes for home program as noted above with an (*). Provided written instruction for home program to facilitate proper performance and compliance. Correct performance of home program was facilitated with verbal, visual, and tactile cueing. Billing * Evaluation Low Complexity: 1 Unit Therapeutic Exercise Treatment Minutes: 10 Self-Care/Home Management Treatment Minutes: 15 Total Treatment Time Minutes (timed/untimed): 45 Session Start Time : 1345 Session Stop Time : 1430 Tiffani Kebede PT documented [facility]08-[facility]23 Miscellaneous Notes* Telephone Encounter - Sarah Yang PA-C - 11/26/2022 10:07 AM EDT Noted. * Telephone Encounter - Tiff Hall LPN - 11/26/2022 9:58 AM EDT Pt notified of results and instructions. Pt is just going to do PT at this time and see how it goesand think about pain management. Pt will contact office if she decides to do this in the future. Tiff Hall LPN * Telephone Encounter - Sarah Yang PA-C - 11/26/2022 8:54 AM EDT Let patient know that xray show arthritic changes and scoliosis. She also has a fracture although it's unable to determine if this is new or old. Along with seeing Physical Therapy, would she like tosee pain management for possible treatments? documented in this encounterM[facility]08-09-2023 Miscellaneous Notes* Telephone Encounter - Tiff Hall LPN - 11/25/2022 1:49 PM EDT Patient notified of results and provider's instructions. Patient verbalizes understanding. Tiff Hall WOOD GRINDER * Telephone Encounter - Sarah Yang PA-C - 11/25/2022 1:32 PM EDT Let patient know her culture was negative for infection. If symptoms of the lower abdominal pressure continue, patient should let me know. Would want to do US. Sarah Yang PA-C documented in this [facility]08-09-2023 Miscellaneous Notes* Telephone Encounter - Tiff Hall LPN - 11/25/2022 9:13 AM EDT Patient notified of results and provider's instructions. Patient verbalizes understanding. Tiff Hall [employer]ER * Telephone Encounter - Sarah Yang PA-C - 11/25/2022 8:29 AM EDT Let patient know that metabolic panel is normal. Her a1c is 5.8% which is stable. Cholesterol is normal. Urine is clear but I'm waiting on culture yet. Will contact her if abnormal. Vit d level is normal. Thanks. Sarah Yang PA-C documented in this [facility]08-08-[facility] History of Present illness Narrative* Sushil Mallory RT(R) - 11/24/2022 2:30 PM EDT Radiology Service Progress Note PATIENT NAME: Krystyna Khanna DATE OF SERVICE: November 24, 2022 TIME: 2:11 PM PATIENT IDENTITY VERIFICATION COMPLETED USING TWO (2) IDENTIFIERS: Name and Date of confirmedby patient verbally. FALL SCREENING: Has the patient had 2 falls in the last year or 1 fall with injury or currently using an Ambulatory Assistive Device (Walker, Cane, Wheelchair, Crutches, etc.)? No PATIENT GENDER DATA: Female. status: : No status: NO. PATIENT RELEVANT IMPLANT DATA REVIEWED: Not Applicable RADIOLOGY DEPARTMENT: General X-ray: Exam(s) Completed: Spine X-Ray(s): Lumbar AP / LAT / L5-S1 PERIPHERAL IV DATA: Not applicable SIGNED BY: RT Darek(R) November 24, 2022 2:11 PM documented in this encounterM[facility]08-08-2023 Instructions* Patient Instructions* Sarah Yang PA-C - 11/24/2022 1:25 PM EDT Labs today. Let me know if the urinary and stomach symptoms aren't improving. We will see what urine shows. documented in this encounterM[facility]08-08-2023 History of Present illness Narrative* Sarah Yang PA-C - 11/24/2022 1:15 PM EDT Medicare Yearly Visit Medical B eligibilty date 02/18/2000 Date of last exam 11/20/21 PAST MEDICAL HISTORY Diagnosis Date Advance directive discussed with patient 11/20/2021 Packets given 11/20/2021 Atrial fibrillation (HCC) Bilateral knee pain 01/09/2010 Elevated hemoglobin A1c 11/08/2017 Encounter for Medicare annual wellness exam 09/25/2020 Medical B eligibilty date 02/18/2000 Date of last exam 10/25/2020 Hepatitis thinks B History of congestive heart failure History of heart attack Hypertension, essential 11/08/2017 Obesity, Class II, BMI 35-39.9 11/08/2017 Osteoarthritis Osteopenia, senile 09/25/2020 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 No further w/u needed and ok to stay on Xarelto PAST SURGICAL HISTORY Procedure Laterality Date 2D ECHO (EXEP) 10/28/2020 EF=60%, 1+ TImod alvarez dysf ARTHRP KNE CONDYLE&PLATU MEDIAL&LAT COMPARTMENTS Left 11/19/2017 Knee replacement, total PAST SURGICAL HISTORY OF 2004 right knee replacement REMV CATARACT EXTRACAP,INSERT LENS Bilateral REVISION OF UPPER EYELID Bilateral 11/21/2021 TUBAL LIGATION ALLERGIES: Darvocet A500 [Propoxyphene N-Acetaminophen] and Sulfa (Sulfonamide Antibiotics) Medications reviewed: Yes FAMILY HISTORY Problem Relation Age of Onset Heart Mother Heart Father Breast Cancer Maternal Aunt Diabetes Maternal Aunt Diabetes Other cousin Cancer Paternal Grandmother stomach Heart Sister Breast Cancer Sister SOCIAL HISTORY: Social History Tobacco Use Smoking status: Never Smokeless tobacco: Never Vaping Use Vaping Use: Never used Substance Use Topics Alcohol use: No Drug use: No Krystyna likes to exercise by stretching and tv aerobic. She watches her diet for sodium, low fat andlow cholesterol generally not very much. List of current specialists seen: Cardiology End of Live Planning discussed including patients advanced directive wishes: Yes I am willing to follow Krystyna's advanced directives. Depression Screening 04/01/2018 02/13/2020 11/20/2021 11/24/2022 PHQ-2 Score 0 3 0 1 PHQ-9 Score - 6 - - Depression screening tool completed and reviewed. Based on score and interview, patient is not at risk for depression. Screening tool discussed with patient, and I recommended no further interventionat this time. Functional Ability/Safety Screen 1. Was the patient's timed Up and Go test unsteady or longer than 30 seconds? No 2. Does the patient need help with the phone, transportation, shopping,preparing meals, housework, laundry, medications or managing money? No needs some help at times 3. Does your home have rugs in the hallway, lack of grab bars in the bathroom, lack of handrails onthe stairs or have poor lighting? No Hearing Evaluation: wears hearing aids PHYSICAL EXAM BP 100/66 (BP Site: Right Arm, BP Position: Sitting, BP Cuff Size: Regular Adult) Pulse (!) 57 Temp 37.1 C (98.8 F) Resp 18 Ht 148 cm (4' 10.27) Wt 80.3 kg (177 lb) BMI 36.65 kg/m Alert and oriented X 3: YES Body mass index is 36.65 kg/m . Visual acuity: sees opto ASSESSMENT/PLAN: 87 year old female The following prevention plan was discussed during the office visit and provided to the patient: See below Sarah Yang PA-C Chief Complaint Patient presents with: Medicare Wellness Exam HPI Krystyna Khanna is a 87 year old female who presents here today for extensive exam. Patient with hx of a.fib, HTN, elevated glucose, OA, osteopenia, obesity and those as below. Patient overall doing well. Feels like she has wax in her ears. Worse on R. Has been having some back pain. Last 6 Encounter Wt Readings: Date: Wt: 11/24/2022 80.3 kg (177 lb) 05/27/2022 80.3 kg (177 lb) 03/27/2022 77.1 kg (170 lb) 01/31/2022 80.1 kg (176 lb 9.6 oz) 01/26/2022 81.2 kg (179 lb) 12/09/2021 80.3 kg (177 lb) Past medical history, appointments, medications, allergies reviewed. 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 No further w/u needed and ok to stay on Xarelto Previous Surgical History PAST SURGICAL HISTORY Procedure Laterality Date 2D ECHO (EXEP) 10/28/2020 EF=60%, 1+ TImod alvarez dysf ARTHRP KNE CONDYLE&PLATU MEDIAL&LAT COMPARTMENTS Left 11/19/2017 Knee replacement, total PAST SURGICAL HISTORY OF 2004 right knee replacement REMV CATARACT EXTRACAP,INSERT LENS Bilateral REVISION OF UPPER EYELID Bilateral 11/21/2021 TUBAL LIGATION Family History FAMILY HISTORY Problem Relation Age of Onset Heart Mother Heart Father Breast Cancer Maternal Aunt Diabetes Maternal Aunt Diabetes Other cousin Cancer Paternal Grandmother stomach Heart Sister Breast Cancer Sister Patient Allergies ALLERGIES Allergen Reactions Darvocet A500 [Prop* Unknown Sulfa (Sulfonamide * Other: See Comments didn't feel right, nervousness Current Medications Current Outpatient Medications on File Prior to Visit Medication Sig XARELTO 20 mg tablet Take 1 tablet by mouth once daily. metoprolol succinate ER (TOPROL XL) 50 mg 24 hr tablet Take 1 tablet by mouth once daily. benzonatate (TESSALON PERLES) 100 mg capsule Take 1 capsule by mouth three times daily as needed for cough. calcium Carbonate 300 mg, 750mg, (TUMS) 300 mg (750 mg) chewable tablet Take 1 tablet by mouth twice daily. doxylamine succinate (NITE TIME SLEEP AID ORAL) Take by mouth as directed. Taking Nature's Bounty Sleep 3 as directed loperamide HCl (IMODIUM) 2 mg tab Take 2 mg by mouth as needed. Cholecalciferol, Vitamin D3, (D3-2000) 50 mcg (2,000 unit) cap Take 1 capsule by mouth once daily. multivitamin tablet Take 1 tablet by mouth once daily. acetaminophen (TYLENOL) 500 mg tablet Take 500 mg by mouth every 6 hours as needed. DOCOSAHEXANOIC ACID/EPA (FISH OIL ORAL) Take 1,000 mg by mouth once daily. elderberry fruit (ELDERBERRY ORAL) Take by mouth once daily. (Patient not taking: Reported on 05/27/2022) zinc sulfate (ZINC-15 ORAL) Take by mouth. (Patient not taking: No sig reported) ascorbic acid, vitamin C, (VITAMIN C) 500 mg tablet Take 2 tablets by mouth once daily. White Petrolatum-Mineral Oil (LUBRICANT EYE) 57.3-42.5 % ointment Use 1 Drop in the right eye twicedaily. (Patient not taking: No sig reported) vit A-vit C-vit X-rpyf-dussti 7,160-113-100 gdyi-nv-ktym tab Take by mouth. (Patient not taking: Nosig reported) No current facility-administered medications on file prior to visit. Social History Social History Tobacco Use Smoking status: Never Smokeless tobacco: Never Vaping Use Vaping Use: Never used Substance Use Topics Alcohol use: No Drug use: No Review of Symptoms REVIEW OF SYSTEMS GENERAL: No weight loss, malaise or fevers HEENT: No changes in hearing or vision, no nose bleeds or other nasal problems. See hpi NECK: Negative for lumps, goiter, pain and significant neck swelling RESPIRATORY: Negative for cough, hemoptysis, wheezing, COPD, dyspnea or shortness of breath CARDIOVASCULAR: Negative for chest pain, leg swelling, hypertension, CHF or palpitations GI: Negative for abdominal discomfort, blood in stools or black stools, change in bowel habit, heart burn, nausea, vomiting : No history of dysuria, frequency or incontinence MUSCULOSKELETAL: see hpi SKIN: Negative for lesions, rash, and itching PSYCH: Negative for sleep disturbance, mood disorder and recent psychosocial stressors HEMATOLOGY/LYMPHOLOGY: Negative for prolonged bleeding, bruising easily or swollen nodes ENDOCRINE: Negative for cold or heat intolerance, polyuria, polydipsia and goiter NEURO: No history of headaches, syncope, paralysis, seizures or tremors EXAM: BP 100/66 (BP Site: Right Arm, BP Position: Sitting, BP Cuff Size: Regular Adult) Pulse (!) 57 Temp 37.1 C (98.8 F) Resp 18 Ht 148 cm (4' 10.27) Wt 80.3 kg (177 lb) BMI 36.65 kg/m General Appearance: Well appearing, alert, in no acute distress, well-hydrated, well nourished.. Skin: wart on middle finger on left hand. Otherwise Skin color, texture, turgor normal, no suspicious rashes or lesions. Head: Normocephalic, no masses, lesions, tenderness or abnormalities. Eyes: Anicteric sclera. Pupils are equally round and reactive to light. Extraocular movements are intact. . Ears: External ears normal, canals clear, TMs pearly rodriges. Nose/Sinuses: Nares normal, septum midline, mucosa normal, no drainage or sinus tenderness. Oropharynx: Lips, mucosa, and tongue normal, teeth and gums normal, oropharynx normal. Neck: Supple, no adenopathy; thyroid symmetric, normal size, no bruits. Lungs: Lungs clear to auscultation. No wheezing, rhonchi, rales.. Heart: RRR without murmur, gallop, or rubs. No ectopy. Abdomen: Normal abdominal exam, Abdomen soft, non-tender. Bowel sounds normal. No masses, organomegaly. Extremities: No deformities, edema, skin discoloration, clubbing or cyanosis. Good capillary refill. . Peripheral Pulses: Normal. Neurologic: Gait normal. Reflexes normal and symmetric. Sensation grossly intact.. Health Maintenance List SHINGRIX VACCINE(1 of 2) Never done ADVANCE DIRECTIVE DISCUSSION due on 04/19/2022 DEPRESSION ASSESSMENT Never done COVID-19 VACCINE(5 - Pfizer series) due on 06/27/2022 INFLUENZA(1) due on 12/18/2022 DIABETES SCREEN due on 05/27/2025 DTAP,TDAP,TD(2 - Td or Tdap) due on 11/18/2027 BONE DENSITY Completed PNEUMOCOCCAL: 65+ Completed Data reviewed ASSESSMENT/PLAN: 1. Encounter for Medicare annual wellness exam - ICD9: V70.0, ICD10: Z00.00 (primary diagnosis) - Counseled on healthy diet and regular exercise - Calcium intake with supplements or by diet of 1000 mg/day for under 50, 1200- 1500 mg/day for 50+ 2. Advance directive discussed with patient - ICD9: V65.49, ICD10: Z71.89 Paperwork given 3. Osteopenia, senile - ICD9: 733.90, ICD10: M85.80 - Reviewed the need for Calcium and Vitamin D supplements and weight bearing exercise as tolerated - VITAMIN D 25 HYDROXY 4. Obesity, Class II, BMI 35-39.9 - ICD9: 278.00, ICD10: E66.9 Stable - Behavioral intervention 5. Hypertension, essential - ICD9: 401.9, ICD10: I10 - Controlled - Continue current medications - Recommend home blood pressure monitoring, to bring results to next visit - Encouraged sodium restriction, DASH or Mediterranean diet - Recommend regular aerobic exercise 6. Paroxysmal atrial fibrillation (HCC) - ICD9: 427.31, ICD10: I48.0 Cont with cardio 7. Elevated hemoglobin A1c - ICD9: 790.29, ICD10: R73.09 Await labs 8. Primary osteoarthritis of both knees - ICD9: 715.16, ICD10: M17.0 stable 9. 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 - ICD9: 724.2, 338.29, ICD10: M54.50, G89.29 Check xray and start PT - XR LUMBAR GENERAL 3V AP/LAT/L5-S1 - CONSULT TO PHYSICAL THERAPY 10. Suprapubic pain - ICD9: 789.09, ICD10: R10.2 Await urine results. Consider US. - URINE CULTURE 11. Verruca - ICD9: 078.10, ICD10: B07.9 Discussed options, risks and benefits of wart treatments including observation, OTC preps, prescription medication, cryo, and surgery. Patient agreed to proceed with cryotherapy. 3 freeze/thaw cycleswith Cry-AC liquid nitrogen spray gun to left middle finger. Patient tolerated procedure well. Careinstructions given. Sarah Yang PA-C I spent a total of 45 minutes on the date of the service which included preparing to see the patient, [id number] patient care, completing clinical documentation, obtaining and/or reviewing separately obtained history, performing a medically appropriate examination, counseling and educating the pat ient/family/caregiver, ordering medications, tests, or procedures, and communicating results to thepatient/family/caregiver. documented [facility]04[facility] Miscellaneous Notes* Telephone Encounter - Jannette Reyna LPN - 07/20/2022 10:19 AM EDT Patient has been identified by name and date of : Patient phones for refill(s): Requested Prescriptions Pending Prescriptions Disp Refills metoprolol succinate ER (TOPROL XL) 50 mg 24 hr tablet 90 tablet 3 Sig: Take 1 tablet by mouth once daily. Date of last office visit in primary care: 05/27/22 Last 2 Encounter Wt Readings: Date: Wt: 05/27/2022 80.3 kg (177 lb) 03/27/2022 77.1 kg (170 lb) Previous labs/tests for medication: Not applicable Please advise. Thank you. Jannette Reyna LPN documented in this encounterM[facility]03-18-[facility]23 History of Present illness Narrative* John Gomez MA - 07/04/2022 10:50 AM EDT Scan on 07/03/2022 9:52 AM by External Provider: Consultation - Cardiology John Gomez MA documented in this encounterM[facility]02-08-2023 Instructions* Patient Instructions* Rufino Erickson MD - 05/27/2022 11:51 AM EST Please get labs and urine test done on or after 11/13/2022 prior to your next visit. documented in this encounterM[facility]02-08-2023 History of Present illness Narrative* Rufino Erickson MD - 05/27/2022 11:35 AM EST Chief Complaint Patient presents with: F/U 6 months HPI Krystyna Khanna is a 87 year old female who presents here today for 6 month follow up. Patient with hx of HTN, a. Fib, elevated a1c, OA, osteopenia, obesity and those as below. Patient declines concerns today. Past medical history, appointments, medications, allergies reviewed. 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 No further w/u needed and ok to stay on Xarelto Previous Surgical History PAST SURGICAL HISTORY Procedure Laterality Date 2D ECHO (EXEP) 10/28/2020 EF=60%, 1+ TImod alvarez dysf ARTHRP KNE CONDYLE&PLATU MEDIAL&LAT COMPARTMENTS Left 11/19/2017 Knee replacement, total PAST SURGICAL HISTORY OF 2004 right knee replacement REMV CATARACT EXTRACAP,INSERT LENS Bilateral REVISION OF UPPER EYELID Bilateral 11/21/2021 TUBAL LIGATION Family History FAMILY HISTORY Problem Relation Age of Onset Heart Mother Heart Father Breast Cancer Maternal Aunt Diabetes Maternal Aunt Diabetes Other cousin Cancer Paternal Grandmother stomach Heart Sister Breast Cancer Sister Patient Allergies ALLERGIES Allergen Reactions Darvocet A500 [Prop* Unknown Sulfa (Sulfonamide * Other: See Comments didn't feel right, nervousness Current Medications Current Outpatient Medications on File Prior to Visit Medication Sig XARELTO 20 mg tablet Take 1 tablet by mouth once daily. calcium Carbonate 300 mg, 750mg, (TUMS) 300 mg (750 mg) chewable tablet Take 1 tablet by mouth twice daily. metoprolol succinate ER (TOPROL XL) 50 mg 24 hr tablet Take 1 tablet by mouth once daily. doxylamine succinate (NITE TIME SLEEP AID ORAL) Take by mouth as directed. Taking Nature's Bounty Sleep 3 as directed loperamide HCl (IMODIUM) 2 mg tab Take 2 mg by mouth as needed. Cholecalciferol, Vitamin D3, (D3-2000) 50 mcg (2,000 unit) cap Take 1 capsule by mouth once daily. multivitamin tablet Take 1 tablet by mouth once daily. acetaminophen (TYLENOL) 500 mg tablet Take 500 mg by mouth every 6 hours as needed. DOCOSAHEXANOIC ACID/EPA (FISH OIL ORAL) Take 1,000 mg by mouth once daily. benzonatate (TESSALON PERLES) 100 mg capsule Take 1 capsule by mouth three times daily as needed for cough. elderberry fruit (ELDERBERRY ORAL) Take by mouth once daily. (Patient not taking: Reported on 05/27/2022) zinc sulfate (ZINC-15 ORAL) Take by mouth. (Patient not taking: No sig reported) ascorbic acid, vitamin C, (VITAMIN C) 500 mg tablet Take 2 tablets by mouth once daily. White Petrolatum-Mineral Oil (LUBRICANT EYE) 57.3-42.5 % ointment Use 1 Drop in the right eye twicedaily. (Patient not taking: No sig reported) vit A-vit C-vit V-vnoz-sfhejn 7,160-113-100 nyaj-vs-ruqo tab Take by mouth. (Patient not taking: Nosig reported) No current facility-administered medications on file prior to visit. Social History Social History Tobacco Use Smoking status: Never Smokeless tobacco: Never Vaping Use Vaping Use: Never used Substance Use Topics Alcohol use: No Drug use: No Review of Symptoms REVIEW OF SYSTEMS GENERAL: No weight loss, malaise or fevers NECK: Negative for lumps, goiter, pain and significant neck swelling RESPIRATORY: Negative for cough, hemoptysis, increased wheezing, COPD, dyspnea or shortness of breath CARDIOVASCULAR: Negative for chest pain, leg swelling, hypertension, CHF or palpitations ENDOCRINE: Negative for polyuria, polydipsia, goiter NEURO: No history of headaches, syncope, paralysis, seizures or tremors EXAM: BP 112/70 (BP Site: Right Arm, BP Position: Sitting, BP Cuff Size: Large Adult) Pulse (!) 54 Resp 16 Wt 80.3 kg (177 lb) BMI 36.99 kg/m Last 4 Encounter Wt Readings: Date: Wt: 05/27/2022 80.3 kg (177 lb) 03/27/2022 77.1 kg (170 lb) 01/31/2022 80.1 kg (176 lb 9.6 oz) 01/26/2022 81.2 kg (179 lb) General Appearance: Well appearing, alert, in no acute distress, well-hydrated, well nourished. andObese. Neck: Supple, no adenopathy; thyroid symmetric, normal size, no bruits. Lungs: Lungs clear to auscultation. No wheezing, rhonchi, rales.. Heart: RRR without murmur, gallop, or rubs. No ectopy. Abdomen: Normal abdominal exam, Abdomen soft, non-tender. Bowel sounds normal. No masses, organomegaly. Extremities: No deformities, edema, skin discoloration, Good capillary refill. . Peripheral Pulses: Normal. Health Maintenance List SHINGRIX VACCINE(1 of 2) Never done ADVANCE DIRECTIVE DISCUSSION due on 04/19/2022 DEPRESSION ASSESSMENT Never done DIABETES SCREEN due on 11/20/2024 DTAP,TDAP,TD(2 - Td or Tdap) due on 11/18/2027 BONE DENSITY Completed INFLUENZA Completed COVID-19 VACCINE Completed PNEUMOCOCCAL: 65+ Completed Data reviewed Component Latest Ref Rng & Units 11/20/2021 11/27/2021 WBC 3.70 - 11.00 k/uL 6.01 4.99 RBC 3.90 - 5.20 m/uL 4.71 4.60 Hemoglobin 11.5 - 15.5 g/dL 14.8 14.5 Hematocrit 36.0 - 46.0 % 45.6 43.6 MCV 80.0 - 100.0 fL 96.8 94.8 MCH 26.0 - 34.0 pg 31.4 31.5 MCHC 30.5 - 36.0 g/dL 32.5 33.3 RDW-CV 11.5 - 15.0 % 12.1 11.9 Platelet Count 150 - 400 k/uL 34 (L) 69 (L) MPV 9.0 - 12.7 fL 12.7 12.2 Neut% % 35.7 32.9 Abs Neut (ANC) 1.45 - 7.50 k/uL 2.15 1.64 Lymph% % 47.4 51.7 Abs Lymph 1.00 - 4.00 k/uL 2.85 2.58 Tompkins% % 16.3 14.2 Abs Tompkins <0.87 k/uL 0.98 (H) 0.71 Eosin% % 0.2 0.4 Abs Eosin <0.46 k/uL <0.03 <0.03 Baso% % 0.2 0.4 Abs Baso <0.11 k/uL <0.03 <0.03 Immature Gran % % 0.2 0.4 IMMATURE GRANS (ABS) <0.10 k/uL <0.03 <0.03 NRBC /100 WBC 0.0 0.0 Absolute nRBC <0.01 k/uL <0.01 <0.01 DTYPE Auto Auto Protein, Total 6.3 - 8.0 g/dL 7.5 Albumin 3.9 - 4.9 g/dL 4.8 Calcium 8.5 - 10.2 mg/dL 10.7 (H) 10.0 Bilirubin, Total 0.2 - 1.3 mg/dL 1.1 Alkaline Phosphatase 34 - 123 U/L 74 AST 13 - 35 U/L 24 ALT 7 - 38 U/L 8 Glucose 74 - 99 mg/dL 110 (H) BUN 7 - 21 mg/dL 10 Creatinine 0.58 - 0.96 mg/dL 0.83 Sodium 136 - 144 mmol/L 140 Potassium 3.7 - 5.1 mmol/L 5.3 (H) 4.5 Chloride 97 - 105 mmol/L 99 CO2 22 - 30 mmol/L 30 Anion Gap 9 - 18 mmol/L 11 eGFR >=60 mL/min/1.73m 69 Total Cholesterol, Nonfasting <200 mg/dL 180 Triglycerides, Nonfasting <150 mg/dL 127 HDL Cholesterol, Nonfasting >39 mg/dL 44 LDL Cholesterol, Nonfasting <100 mg/dL 111 (H) Non HDL Cholesterol, Nonfasting <130 mg/dL 136 (H) VLDL Cholesterol, Nonfasting <30 mg/dL 25 Total Chol/HDL Ratio, Nonfasting <5.10 mg/dL 4.09 LDL/HDL Ratio, Nonfasting <2.54 mg/dL 2.52 Hemoglobin A1C 4.3 - 5.6 % 5.7 (H) Estimated Average Glucose mg/dL 117 Vitamin D 25 Hydroxy 31.0 - 80.0 ng/mL 61.6 PTH, Intact 15 - 65 pg/mL 46 Component Latest Ref Rng & Units 11/20/2021 05/27/2022 Hemoglobin A1C 4.3 - 5.6 % 5.7 (H) Estimated Average Glucose mg/dL 117 Hemoglobin A1C (POCT) 4.2 - 5.6 % 6.0 A/P ASSESSMENT/PLAN: 1. Hypertension, essential - ICD9: 401.9, ICD10: I10 (primary diagnosis) - good control - Continue current medication(s) - Recommended regular aerobic exercise. - Recommend home blood pressure monitoring, to bring results in on next visit - Goal of BP <130/80 2. Elevated hemoglobin A1c - ICD9: 790.29, ICD10: R73.09 Check - HEMOGLOBIN A1C (POC) slightly increased at 6%. Patient to continue work on life style changes forimproved control. 3. Paroxysmal atrial fibrillation (HCC) - ICD9: 427.31, ICD10: I48.0 - patient needs to get back in with Cardio. 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 Obesity, Class II, BMI 35-39.9 - ICD9: 278.00, ICD10: E66.9 - stable F/u 6 months extensive check CMP, Lippid, UA, A1c, CBC prior Rufino Erickson MD documented [facility]01-[facility]23 Miscellaneous Notes* Telephone Encounter - Nataliia Mancuso - 04/23/2022 12:34 PM EST Patient has been identified by name and date of : Yes, Provider YANG Patient phones for refill(s): Requested Prescriptions Pending Prescriptions Disp Refills XARELTO 20 mg tablet 90 tablet 1 Sig: Take 1 tablet by mouth once daily. Date of last office visit in primary care: 03/27/22 Labs-12/09/21 NOV-05/27/22 med filled 10/17/21 Last 2 Encounter Wt Readings: Date: Wt: 03/27/2022 77.1 kg (170 lb) 01/31/2022 80.1 kg (176 lb 9.6 oz) Previous labs/tests for medication: Not applicable Please advise. Thank you. Nataliia Mancuso documented [facility]12-[facility] History of Present illness Narrative* Ulices Garcia MD - 03/27/2022 1:47 PM EST Patient presents with: Cough HPI: Patient presents today for office visit for cough X 10-12 days. Some wheezing but is improving. No real wheezing. Using OTC Mucinex am and pm with relief. No fever. No sore throat or ear pain. Some congestion. Did not get tested earlier for covid, flu. Will not change what we manage. Has had covid and flu shot. Has taken mucinex pm and has stopped that. MEDICATIONS: Current Outpatient Medications Medication Sig elderberry fruit (ELDERBERRY ORAL) Take by mouth once daily. XARELTO 20 mg tablet Take 1 tablet by mouth once daily. ascorbic acid, vitamin C, (VITAMIN C) 500 mg tablet Take 2 tablets by mouth once daily. calcium Carbonate 300 mg, 750mg, (TUMS) 300 mg (750 mg) chewable tablet Take 1 tablet by mouth twice daily. metoprolol succinate ER (TOPROL XL) 50 mg 24 hr tablet Take 1 tablet by mouth once daily. doxylamine succinate (NITE TIME SLEEP AID ORAL) Take by mouth as directed. Taking Nature's Bounty Sleep 3 as directed loperamide HCl (IMODIUM) 2 mg tab Take 2 mg by mouth as needed. Cholecalciferol, Vitamin D3, (D3-2000) 50 mcg (2,000 unit) cap Take 1 capsule by mouth once daily. multivitamin tablet Take 1 tablet by mouth once daily. acetaminophen (TYLENOL) 500 mg tablet Take 500 mg by mouth every 6 hours as needed. DOCOSAHEXANOIC ACID/EPA (FISH OIL ORAL) Take 1,000 mg by mouth once daily. zinc sulfate (ZINC-15 ORAL) Take by mouth. (Patient not taking: No sig reported) White Petrolatum-Mineral Oil (LUBRICANT EYE) 57.3-42.5 % ointment Use 1 Drop in the right eye twicedaily. (Patient not taking: No sig reported) vit A-vit C-vit Y-odlp-jpczqh 7,160-113-100 ykre-kw-nrxt tab Take by mouth. (Patient not taking: Nosig reported) No current facility-administered medications for this visit. ALLERGIES: ALLERGIES Allergen Reactions Darvocet A500 [Prop* Unknown Sulfa (Sulfonamide * Other: See Comments didn't feel right, nervousness PAST MEDICAL HISTORY Diagnosis Date Atrial fibrillation (HCC) Bilateral knee pain 01/09/2010 Elevated hemoglobin A1c 11/08/2017 Encounter for Medicare annual wellness exam 09/25/2020 Medical B eligibilty date 02/18/2000 Date of last exam 10/25/2020 Hepatitis thinks B History of congestive heart failure History of heart attack Hypertension, essential 11/08/2017 Obesity, Class II, BMI 35-39.9 11/08/2017 Osteoarthritis Osteopenia, senile 09/25/2020 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 No further w/u needed and ok to stay on Xarelto PAST SURGICAL HISTORY Procedure Laterality Date 2D ECHO (EXEP) 10/28/2020 EF=60%, 1+ TImod alvarez dysf ARTHRP KNE CONDYLE&PLATU MEDIAL&LAT COMPARTMENTS Left 11/19/2017 Knee replacement, total PAST SURGICAL HISTORY OF 2004 right knee replacement REMV CATARACT EXTRACAP,INSERT LENS Bilateral REVISION OF UPPER EYELID Bilateral 11/21/2021 TUBAL LIGATION FAMILY HISTORY Problem Relation Age of Onset Heart Mother Heart Father Breast Cancer Maternal Aunt Diabetes Maternal Aunt Diabetes Other cousin Cancer Paternal Grandmother stomach Heart Sister Breast Cancer Sister Social History Tobacco Use Smoking status: Never Smokeless tobacco: Never Vaping Use Vaping Use: Never used Substance Use Topics Alcohol use: No Drug use: No Reviewed current medications, allergies, past medical history, surgical history, family history andsocial history today. REVIEW OF SYSTEMS GI: No nausea, vomiting, or diarrhea All other reviewed and negative other than HPI. VITALS: BP 136/70 Pulse (!) 52 Temp 36.6 C (97.8 F) Ht 147.3 cm (4' 10) Wt 77.1 kg (170 lb) [id number]% BMI 35.53 kg/m Last 4 Encounter Wt Readings: Date: Wt: 01/31/2022 80.1 kg (176 lb 9.6 oz) 01/26/2022 81.2 kg (179 lb) 12/09/2021 80.3 kg (177 lb) 11/20/2021 79.4 kg (175 lb) PHYSICAL EXAMINATION: General appearance: Well appearing, alert, in no acute distress, well-hydrated, well nourished. Skin: Skin color, texture, turgor normal, no suspicious rashes or lesions Head: Normocephalic, no masses, lesions, tenderness or abnormalities Eyes: Anicteric sclera. Pupils are equally round and reactive to light. Extraocular movements are intact. Ears: External ears normal, canals clear Nose/Sinuses: Nares normal, septum midline, mucosa normal, no drainage or sinus tenderness Oropharynx: Lips, mucosa, and tongue normal, teeth and gums normal, oropharynx normal Neck: supple Lungs: Unlabored on room air Lungs clear to auscultation. No wheezing, rhonchi, rales Heart: RRR without murmur, gallop, or rubs. No ectopy Abdomen: Normal abdominal exam, Abdomen soft, non-tender. Bowel sounds normal. No masses, organomegaly Extremities: No deformities, edema, skin discoloration, clubbing or cyanosis. Good capillary refill. ASSESSMENT/PLAN: 1. Bronchitis - ICD9: 490, ICD10: J40 - Discussed risks and benefits of new medication with the patient. Advised them to call if any sideeffects or questions. Red flags for re-assessment reviewed with patient in detail. Call if symptoms worsen at all or if not better in one to two weeks Reviewed diagnosis and treatment options in detail. Questions were answered. Patient expressed understanding of treatment plan. - BENZONATATE 100 MG CAPSULE - DOXYCYCLINE MONOHYDRATE 100 MG TABLET Ulices Garcia MD [facility] History of Present illness Narrative* Shady Smiley MD - 01/31/2022 12:37 PM EDT Patient presents with: Cough: Sore throat, drainage x 3 days HPI: Feeling sick for 4 days. Positive symptoms: Cough, Sore throat, Nasal Congestion, Rhinorrhea, Post nasal drainage, little Headache, Negative symptoms: Earache, Fever, Chills, Body Aches, Vomiting, Diarrhea, OTC: Tylenol Had third dose of [employer] COVID-19 vaccine January 2021. Had COVID illness around March 2021. MEDICATIONS: Current Outpatient Medications Medication Sig elderberry fruit (ELDERBERRY ORAL) Take by mouth once daily. XARELTO 20 mg tablet Take 1 tablet by mouth once daily. ascorbic acid, vitamin C, (VITAMIN C) 500 mg tablet Take 2 tablets by mouth once daily. calcium Carbonate 300 mg, 750mg, (TUMS) 300 mg (750 mg) chewable tablet Take 1 tablet by mouth twice daily. metoprolol succinate ER (TOPROL XL) 50 mg 24 hr tablet Take 1 tablet by mouth once daily. doxylamine succinate (NITE TIME SLEEP AID ORAL) Take by mouth as directed. Taking Nature's Bounty Sleep 3 as directed loperamide HCl (IMODIUM) 2 mg tab Take 2 mg by mouth as needed. Cholecalciferol, Vitamin D3, (D3-2000) 50 mcg (2,000 unit) cap Take 1 capsule by mouth once daily. multivitamin tablet Take 1 tablet by mouth once daily. acetaminophen (TYLENOL) 500 mg tablet Take 500 mg by mouth every 6 hours as needed. DOCOSAHEXANOIC ACID/EPA (FISH OIL ORAL) Take 1,000 mg by mouth once daily. zinc sulfate (ZINC-15 ORAL) Take by mouth. (Patient not taking: Reported on 12/09/2021) White Petrolatum-Mineral Oil (LUBRICANT EYE) 57.3-42.5 % ointment Use 1 Drop in the right eye twicedaily. (Patient not taking: Reported on 09/21/2021 ) vit A-vit C-vit V-ulmu-sscqjc (EYE VITAMIN AND MINERALS) 7,160-113-100 vcln-nj-yxwx tab Take by mouth. (Patient not taking: Reported on 11/20/2021 ) No current facility-administered medications for this visit. ALLERGIES: ALLERGIES Allergen Reactions Darvocet A500 [Prop* Unknown Sulfa (Sulfonamide * Other: See Comments didn't feel right, nervousness VITALS: BP 128/74 Pulse 64 Temp 36.9 C (98.4 F) Resp 20 Wt 80.1 kg (176 lb 9.6 oz) SpO2 95% BMI36.08 kg/m PHYSICAL EXAM: GEN: Pleasant, in no acute distress. HEENT: PERRL, EOMI, conjunctiva clear, dry eschar left upper forehead (cryo Tx this week). Ears: canals clear. TMs without erythema, bulge, or effusion Sinuses: non-tender frontal sinus, non-tender maxillary sinuses Throat: moist mucous membranes, mild erythema, no exudate Neck: supple, no thyromegaly, no lymphadenopathy HEART: regular rate and rhythm, no murmurs LUNGS: clear to auscultation, no wheezes or crackles, no increased WOB ASSESSMENT/PLAN: 1. URI, acute - ICD9: 465.9, ICD10: J06.9 - suspect viral URI, differential includes COVID-19. - Discussed supportive care treatment with home isolation, rest, cough medicine, and analgesia. - Red flags to seek further treatment include chest pain, shortness of breath, and lethargy; in theER if severe. - 2019 CORONAVIRUS Shady Smiley MD documented [facility] Miscellaneous Notes* Telephone Encounter - Debra Hernandze LPN - 12/10/2021 11:37 AM EDT Patient notified. Debra Hernandez LPN * Telephone Encounter - Tia Martinez MD - 12/10/2021 11:35 AM EDT Please notify patient that her hepatitis C antibody was negative. Follow-up with PCP Tia Martinez MD documented [facility] encounterM[facility] History and physical note * Tia Martinez MD - 12/09/2021 3:42 PM EDT Hematology and Medical Oncology PATIENT NAME: Krystyna Khanna. CLINIC NO: [id number]. ATTENDING PHYSICIAN: Tia Martinez MD. DATE OF SERVICE:12/09/2021. DIAGNOSIS: Pseudothrombocytopenia (clumping of platelets) Consultation requested by Sarah Yang PA-C for an opinion regarding thrombocytopenia. My final recommendations will be communicated back to the requesting physician by way of shared Medical record or letter to requesting physician via US mail. PERFORMANCE STATUS:90% HPI: 86-year-old lady with history of atrial fibrillation who on her wall care visit was found to have thrombocytopenia. She has no clinical bleeding or bruising issue even on Xarelto. Recently had surgery on both eye lids without any bleeding and complications. She resume Xarelto after surgery and mild ecchymosis under both eyes. She contracted hepatitis 35 years ago while working at [employer]. No historyof alcohol use. No family history of anemia or bleeding disorder. Previous CBC indicated clumping of her platelets. She has no fatigue, or shortness of breath. She denies history of epistaxis, rectalbleeding, hemoptysis, or hematuria. MEDICATIONS: Current Outpatient Medications Medication Sig elderberry fruit (ELDERBERRY ORAL) Take by mouth once daily. XARELTO 20 mg tablet Take 1 tablet by mouth once daily. ascorbic acid, vitamin C, (VITAMIN C) 500 mg tablet Take 2 tablets by mouth once daily. calcium Carbonate 300 mg, 750mg, (TUMS) 300 mg (750 mg) chewable tablet Take 1 tablet by mouth twice daily. metoprolol succinate ER (TOPROL XL) 50 mg 24 hr tablet Take 1 tablet by mouth once daily. doxylamine succinate (NITE TIME SLEEP AID ORAL) Take by mouth as directed. Taking Nature's Bounty Sleep 3 as directed loperamide HCl (IMODIUM) 2 mg tab Take 2 mg by mouth as needed. Cholecalciferol, Vitamin D3, (D3-2000) 50 mcg (2,000 unit) cap Take 1 capsule by mouth once daily. multivitamin tablet Take 1 tablet by mouth once daily. acetaminophen (TYLENOL) 500 mg tablet Take 500 mg by mouth every 6 hours as needed. DOCOSAHEXANOIC ACID/EPA (FISH OIL ORAL) Take 1,000 mg by mouth once daily. zinc sulfate (ZINC-15 ORAL) Take by mouth. (Patient not taking: Reported on 12/09/2021) White Petrolatum-Mineral Oil (LUBRICANT EYE) 57.3-42.5 % ointment Use 1 Drop in the right eye twicedaily. (Patient not taking: Reported on 09/21/2021 ) vit A-vit C-vit F-kybl-unzogn (EYE VITAMIN AND MINERALS) 7,160-113-100 tski-wu-kkcj tab Take by mouth. (Patient not taking: Reported on 11/20/2021 ) No current facility-administered medications for this visit. . ALLERGIES: ALLERGIES Allergen Reactions Darvocet A500 [Prop* Unknown Sulfa (Sulfonamide * Other: See Comments didn't feel right, nervousness . PAST MEDICAL HISTORY: PAST MEDICAL HISTORY Diagnosis Date Atrial fibrillation (HCC) Bilateral knee pain 01/09/2010 Elevated hemoglobin A1c 11/08/2017 Encounter for Medicare annual wellness exam 09/25/2020 Medical B eligibilty date 02/18/2000 Date of last exam 10/25/2020 Hepatitis thinks B History of congestive heart failure History of heart attack Hypertension, essential 11/08/2017 Obesity, Class II, BMI 35-39.9 11/08/2017 Osteoarthritis Osteopenia, senile 09/25/2020 . PAST SURGICAL HISTORY: PAST SURGICAL HISTORY Procedure Laterality Date 2D ECHO (EXEP) 10/28/2020 EF=60%, 1+ TImod alvarez dysf ARTHRP KNE CONDYLE&PLATU MEDIAL&LAT COMPARTMENTS Left 11/19/2017 Knee replacement, total PAST SURGICAL HISTORY OF 2004 right knee replacement REMV CATARACT EXTRACAP,INSERT LENS Bilateral REVISION OF UPPER EYELID Bilateral 11/21/2021 TUBAL LIGATION . FAMILY HISTORY: FAMILY HISTORY Problem Relation Age of Onset Heart Mother Heart Father Breast Cancer Maternal Aunt Diabetes Maternal Aunt Diabetes Other cousin Cancer Paternal Grandmother stomach Heart Sister Breast Cancer Sister . SOCIAL HISTORY: Social History Tobacco Use Smoking status: Never Smokeless tobacco: Never Vaping Use Vaping Use: Never used Substance Use Topics Alcohol use: No Drug use: No . REVIEW OF SYSTEMS: CONSTITUTIONAL: No fevers, chills, nightsweats, unintended weight loss HEENT: Denies frequent or severe heaches, nasal congestion/sinus symptoms, problematic allergy problems. EYES: No diplopia or blurry vision. CARDIOVASCULAR: No chest pain, dyspnea, palpitations, orthopnea, PND, ankle edema. PULM: No dyspnea, unexplained cough. GI: No dysphagia/odynophagia, problematic reflux, constipation, diarrhea, changes in stool habits, hematochezia, melena. : No new urinary complaints, including dysuria, gross hematuria or pyuria. NEURO: No new balance problems, peripheral weakness/paresthesias or numbness of concern. MUSC-SKEL: No new joint pain, swelling, or erythema. PSY: No concerns regarding depression, anxiety or panic. INTEGUMENTARY: No new skin changes (rash, new or changing mole, new growth) PHYSICAL EXAMINATION: BP 132/63 Pulse 56 Temp 98.6 Ht 4' 10.661 (1.49m) Wt 177 lb (80.3kg) SpO2 96% BMI 36.16 kg/(m^2). HEENT: Head is normocephalic, atraumatic. Sclerae white, conjunctivae pink. Mild ecchymosis on lower eyelids PEERL. EOMs are intact. Oropharynx is benign. LYMPHATICS: There is no palpable adenopathy in the neck, supraclavicular region, axillae, or groin. LUNGS: Lungs are clear to percussion and auscultation. HEART: Heart is normal without murmurs, gallops, or rubs. ABDOMEN: Soft and nontender without hepatosplenomegaly. No masses can be palpated. EXTREMITIES: Are without edema. No petechiae or ecchymosis. NEUROLOGIC: Exam is physiologic LABORATORY DATA: Component Latest Ref Rng & Units 12/09/2021 WBC 3.70 - 11.00 k/uL 4.92 RBC 3.90 - 5.20 m/uL 4.44 Hemoglobin 11.5 - 15.5 g/dL 13.9 Hematocrit 36.0 - 46.0 % 41.4 MCV 80.0 - 100.0 fL 93.2 MCH 26.0 - 34.0 pg 31.3 MCHC 30.5 - 36.0 g/dL 33.6 RDW-CV 11.5 - 15.0 % 12.0 Platelet Count 150 - 400 k/uL 113 (L) MPV 9.0 - 12.7 fL 11.3 Neut% % 31.3 Abs Neut (ANC) 1.45 - 7.50 k/uL 1.54 Lymph% % 54.1 Abs Lymph 1.00 - 4.00 k/uL 2.66 Tompkins% % 14.0 Abs Tompkins <0.87 k/uL 0.69 Eosin% % 0.2 Abs Eosin <0.46 k/uL <0.03 Baso% % 0.2 Abs Baso <0.11 k/uL <0.03 Immature Gran % % 0.2 IMMATURE GRANS (ABS) <0.10 k/uL <0.03 NRBC /100 WBC 0.0 Absolute nRBC <0.01 k/uL <0.01 Citrated Platelet Count Comment: Platelets Clumped Estimate Low. Results checked and verified. No clot detected. Platelet count confirmed by manual review of peripheral blood smear. . Sodium Citrate Sample Component Latest Ref Rng & Units 11/20/2021 Protein, Total 6.3 - 8.0 g/dL 7.5 Albumin 3.9 - 4.9 g/dL 4.8 Calcium 8.5 - 10.2 mg/dL 10.7 (H) Bilirubin, Total 0.2 - 1.3 mg/dL 1.1 Alkaline Phosphatase 34 - 123 U/L 74 AST 13 - 35 U/L 24 ALT 7 - 38 U/L 8 Glucose 74 - 99 mg/dL 110 (H) BUN 7 - 21 mg/dL 10 Creatinine 0.58 - 0.96 mg/dL 0.83 Sodium 136 - 144 mmol/L 140 Potassium 3.7 - 5.1 mmol/L 5.3 (H) Chloride 97 - 105 mmol/L 99 CO2 22 - 30 mmol/L 30 Anion Gap 9 - 18 mmol/L 11 eGFR >=60 mL/min/1.73m 69 ASSESSMENT: 86-year-old lady with mild thrombocytopenia secondary to platelet clumping. History of hepatitis infection PLAN: -Check citrated platelet counts for platelet clumping -Hepatitis C antibody screen -No further evaluation is needed for pseudothrombocytopenia. No contraindications for rivaroxaban. -Avoid aspirin I spent 45 minutes in the visit, with more than 50% of the total qwos-op-byrj time of the visit in counseling / coordination of care. Follow-up with PCP. Tia Martinez MD. ELECTRONICALLY SIGNED Cc: Dr. Rufino Erickson documented in [facility] encounter[facility]08[facility]22 Miscellaneous Notes* Telephone Encounter - Yasemin Chan - 11/28/2021 4:27 PM EDT Added lab appointment and spoke with patient advising of the appointment. Yasemin Chan * Telephone Encounter - Debra Hernandez LPN - 11/28/2021 2:56 PM EDT CBC/EXTRA/STREV. Debra Hernandez LPN * Telephone Encounter - Daniela Basurto - 11/28/2021 2:50 PM EDT Pt is scheduled with Dr. Martinez in first available appt time. Noted to arrive 30 minutes early in caseDrRoney Martinez would like labs. May need a reminder call if she needs to come for labs. * Telephone Encounter - Ling Galicia - 11/28/2021 2:27 PM EDT Message left for patient to contact office. When patient returns call, please schedule first available new patient with Dr. Martinez as noted below; CITY ASSESSOR/THROMBOCYTOPENIA/REFERRED BY SARAH YANG* Once scheduled, please attach consult order, document and route to nursing to see if patient will need any labs. Please had patient arrive at least 30 minutes prior to scheduled appt time in case labwork is needed. * Telephone Encounter - Felipa Galicia - 11/28/2021 11:26 AM EDT Patient called to schedule a new patient appointment with Hematology. There is a referral in from Sarah Yang, patient can be reached at [phone] (I tried to schedule this but kept saying provider does not match visit type restrictions) Thank you Felipa Galicia documented [facility]08-[facility]-2022 Miscellaneous Notes* Telephone Encounter - Tiff Hall LPN - 11/28/2021 9:44 AM EDT Patient notified of results and provider's instructions. Patient verbalizes understanding. Pt was transferred to schedule with hematology. Tiff Hall LPN * Telephone Encounter - Sarah Yang PA-C - 11/28/2021 8:47 AM EDT Let patient know that her platelet count is still pretty low. I am going to place a consult to hematology. Rest of repeat labs are back to normal. Sarah Yang PA-C documented [facility]08-[facility]-2022 Miscellaneous Notes* Telephone Encounter - Rufino Erickson MD - 11/26/2021 10:14 PM EDT noted * Telephone Encounter - Beatriz Siddiqui Ma - 11/26/2021 2:24 PM EDT Spoke to patient who denies any symptoms associated with UTI. Patient will come in to do blood work. Stressed to do it toshia but she will try to do before end of week if she is out an about. Beatriz Siddiqui Ma * Telephone Encounter - Sarah Yang PA-C - 11/26/2021 2:07 PM EDT Please keep trying to reach patient. Need repeat labs toshia * Telephone Encounter - Tiff Hall LPN - 11/21/2021 2:02 PM EDT Left message for pt to contact office. Please see below. If pt having s/sx of uti if after 2:20 pm today Kamilah is out of the office so please forward to Dr Erickson. Tiff Hall LPN * Telephone Encounter - Sarah Yang PA-C - 11/21/2021 1:45 PM EDT Let patient know that urine had some WBC and leuks. Any s/s of UTI? Platelet count is very low at 34. (normal is 150). Need to have this recheck toshia. Cholesterol is okay. a1c is 5.7 which is good. Calcium and potassium both are a little high. Will recheck these as well toshia.. Vit d is still in process. Will let her know if abnormal. documented in this encounterM[facility]08-04-2022 Instructions* Patient Instructions* Sarah Yang PA-C - 11/20/2021 10:50 AM EDT If interested in shingrix vaccine- go to pharmacy to complete. Also consider the pneumonia vaccine. Please get labs done today. documented in this encounterM[facility]08-[facility]22 History of Present illness Narrative* Sarah Yang PA-C - 11/20/2021 10:38 AM EDT Welcome To Medicare Visit Medical B eligibility date 02/18/2000 Date of last exam 10/25/20 PAST MEDICAL HISTORY Diagnosis Date Atrial fibrillation (HCC) Bilateral knee pain 01/09/2010 Elevated hemoglobin A1c 11/08/2017 Encounter for Medicare annual wellness exam 09/25/2020 Medical B eligibilty date 02/18/2000 Date of last exam 10/25/2020 Hepatitis thinks B History of congestive heart failure History of heart attack Hypertension, essential 11/08/2017 Obesity, Class II, BMI 35-39.9 11/08/2017 Osteoarthritis Osteopenia, senile 09/25/2020 PAST SURGICAL HISTORY Procedure Laterality Date 2D ECHO (EXEP) 10/28/2020 EF=60%, 1+ TImod alvarez dysf ARTHRP KNE CONDYLE&PLATU MEDIAL&LAT COMPARTMENTS Left 11/19/2017 Knee replacement, total PAST SURGICAL HISTORY OF 2004 right knee replacement TUBAL LIGATION Darvocet A500 [Propoxyphene N-Acetaminophen] and Sulfa (Sulfonamide Antibiotics) Medications reviewed: Yes FAMILY HISTORY Problem Relation Age of Onset Heart Mother Heart Father Breast Cancer Maternal Aunt Diabetes Maternal Aunt Diabetes Other cousin Cancer Paternal Grandmother stomach Heart Sister Breast Cancer Sister SOCIAL HISTORY: Social History Tobacco Use Smoking status: Never Smoker Smokeless tobacco: Never Used Vaping Use Vaping Use: Never used Substance Use Topics Alcohol use: No Drug use: No Krystyna likes to exercise by staying active around house. She watches her diet for sodium, low fat and low cholesterol most of the time. List of current specialists seen: Cardiology- dr. choi End of Live Planning discussed including patients advanced directive wishes: Yes I am willing to follow Krystyna's advanced directives. Depression Screening 04/01/2018 02/13/2020 11/20/2021 PHQ-2 Score 0 3 0 PHQ-9 Score - 6 - Depression screening tool completed and reviewed. Based on score and interview, patient is not at risk for depression. Screening tool discussed with patient, and I recommended no further interventionat this time. PHQ-2 Score: 0 Functional Ability/Safety Screen 1. Was the patient's timed Up and Go test unsteady or longer than 30 seconds? No 2. Does the patient need help with the phone, transportation, shopping,preparing meals, housework, laundry, medications or managing money? mostly independent but gets help from her kids for some things. 3. Does your home have rugs in the hallway, lack of grab bars in the bathroom, lack of handrails onthe stairs or have poor lighting? No Hearing Evaluation: hard of hearing and wears hearing aids PHYSICAL EXAM BP 120/76 (BP Site: Left Arm, BP Position: Sitting, BP Cuff Size: Large Adult) Pulse 60 Temp 37C (98.6 F) Resp 18 Ht 148 cm (4' 10.27) Wt 79.4 kg (175 lb) BMI 36.24 kg/m Alert and oriented X 3: YES Body mass index is 36.24 kg/m . Visual acuity: sees opto ASSESSMENT/PLAN: 86 year old female The following prevention plan was discussed during the office visit and provided to the patient: See below Sarah Yang PA-C Chief Complaint Patient presents with: Medicare Wellness Exam HPI Krystyna Khanna is a 86 year old female who presents here today for extensive exam. Patient with hx of HTN, a. Fib, elevated a1c, OA, osteopenia, obesity and those as below. Patient declines concerns today. Is scheduled for eyelid surgery tomorrow. No hospitalizations or ER visits recently. Past medical history, appointments, medications, allergies reviewed. Previous Medical History PAST MEDICAL HISTORY Diagnosis Date Atrial fibrillation (HCC) Bilateral knee pain 01/09/2010 Elevated hemoglobin A1c 11/08/2017 Encounter for Medicare annual wellness exam 09/25/2020 Medical B eligibilty date 02/18/2000 Date of last exam 10/25/2020 Hepatitis thinks B History of congestive heart failure History of heart attack Hypertension, essential 11/08/2017 Obesity, Class II, BMI 35-39.9 11/08/2017 Osteoarthritis Osteopenia, senile 09/25/2020 Previous Surgical History PAST SURGICAL HISTORY Procedure Laterality Date 2D ECHO (EXEP) 10/28/2020 EF=60%, 1+ TImod alvarez dysf ARTHRP KNE CONDYLE&PLATU MEDIAL&LAT COMPARTMENTS Left 11/19/2017 Knee replacement, total PAST SURGICAL HISTORY OF 2004 right knee replacement TUBAL LIGATION Family History FAMILY HISTORY Problem Relation Age of Onset Heart Mother Heart Father Breast Cancer Maternal Aunt Diabetes Maternal Aunt Diabetes Other cousin Cancer Paternal Grandmother stomach Heart Sister Breast Cancer Sister Patient Allergies ALLERGIES Allergen Reactions Darvocet A500 [Prop* Unknown Sulfa (Sulfonamide * Other: See Comments didn't feel right, nervousness Current Medications Current Outpatient Medications on File Prior to Visit Medication Sig zinc sulfate (ZINC-15 ORAL) Take by mouth. ascorbic acid, vitamin C, (VITAMIN C) 500 mg tablet Take 2 tablets by mouth once daily. calcium Carbonate 300 mg, 750mg, (TUMS) 300 mg (750 mg) chewable tablet Take 1 tablet by mouth twice daily. metoprolol succinate ER (TOPROL XL) 50 mg 24 hr tablet Take 1 tablet by mouth once daily. doxylamine succinate (NITE TIME SLEEP AID ORAL) Take by mouth as directed. Taking Nature's Bounty Sleep 3 as directed loperamide HCl (IMODIUM) 2 mg tab Take 2 mg by mouth as needed. Cholecalciferol, Vitamin D3, (D3-2000) 50 mcg (2,000 unit) cap Take 1 capsule by mouth once daily. multivitamin tablet Take 1 tablet by mouth once daily. acetaminophen (TYLENOL EXTRA STRENGTH) 500 mg tablet Take 500 mg by mouth every 6 hours as needed. DOCOSAHEXANOIC ACID/EPA (FISH OIL ORAL) Take 1,000 mg by mouth once daily. XARELTO 20 mg tablet Take 1 tablet by mouth once daily. White Petrolatum-Mineral Oil (LUBRICANT EYE) 57.3-42.5 % ointment Use 1 Drop in the right eye twicedaily. (Patient not taking: Reported on 09/21/2021 ) vit A-vit C-vit F-dsod-eapisl (EYE VITAMIN AND MINERALS) 7,160-113-100 lyme-zx-pqdw tab Take by mouth. (Patient not taking: Reported on 11/20/2021 ) No current facility-administered medications on file prior to visit. Social History Social History Tobacco Use Smoking status: Never Smoker Smokeless tobacco: Never Used Vaping Use Vaping Use: Never used Substance Use Topics Alcohol use: No Drug use: No Review of Symptoms REVIEW OF SYSTEMS GENERAL: No weight loss, malaise or fevers HEENT: No changes in hearing or vision, no nose bleeds or other nasal problems NECK: Negative for lumps, goiter, pain and significant neck swelling RESPIRATORY: Negative for cough, hemoptysis, wheezing, COPD, dyspnea or shortness of breath CARDIOVASCULAR: Negative for chest pain, leg swelling, CHF or palpitations GI: Negative for abdominal discomfort, blood in stools or black stools, change in bowel habit, heart burn, nausea, vomiting : No history of dysuria, frequency or incontinence MUSCULOSKELETAL: chronic back pain that comes and goes. SKIN: Negative for lesions, rash, and itching PSYCH: Negative for sleep disturbance, mood disorder and recent psychosocial stressors HEMATOLOGY/LYMPHOLOGY: Negative for prolonged bleeding, bruising easily or swollen nodes ENDOCRINE: Negative for cold or heat intolerance, polyuria, polydipsia and goiter NEURO: No history of headaches, syncope, paralysis, seizures or tremors EXAM: BP 120/76 (BP Site: Left Arm, BP Position: Sitting, BP Cuff Size: Large Adult) Pulse 60 Temp 37C (98.6 F) Resp 18 Ht 148 cm (4' 10.27) Wt 79.4 kg (175 lb) BMI 36.24 kg/m General Appearance: Well appearing, alert, in no acute distress, well-hydrated, well nourished.. Skin: Skin color, texture, turgor normal, no suspicious rashes or lesions. Head: Normocephalic, no masses, lesions, tenderness or abnormalities. Eyes: Anicteric sclera. Pupils are equally round and reactive to light. Extraocular movements are intact. . Ears: External ears normal, canals clear, TMs pearly rodriges. Neck: Supple, no adenopathy; thyroid symmetric, normal size, no bruits. Lungs: Lungs clear to auscultation. No wheezing, rhonchi, rales.. Heart: RRR without murmur, gallop, or rubs. No ectopy. Abdomen: Normal abdominal exam, Abdomen soft, non-tender. Bowel sounds normal. No masses, organomegaly. Extremities: No deformities, edema, skin discoloration, clubbing or cyanosis. Good capillary refill. . Peripheral Pulses: Normal. Neurologic: Gait normal. Reflexes normal and symmetric. Sensation grossly intact.. Health Maintenance List SHINGRIX VACCINE(1 of 2) Never done PNEUMOCOCCAL: 65+(1 - PCV) Never done ADVANCE DIRECTIVE DISCUSSION Never done COVID-19 VACCINE(4 - Booster for Pfizer series) due on 06/08/2021 INFLUENZA(1) due on 12/18/2021 DIABETES SCREEN due on 05/19/2024 DTAP,TDAP,TD(2 - Td or Tdap) due on 11/18/2027 BONE DENSITY Completed Data reviewed n/a ASSESSMENT/PLAN: 1. Encounter for Medicare annual wellness exam - ICD9: V70.0, ICD10: Z00.00 (primary diagnosis) - Counseled on healthy diet and regular exercise - Calcium intake with supplements or by diet of 1000 mg/day for under 50, 1200- 1500 mg/day for 50+ 2. Advanced care planning/counseling discussion - ICD9: V65.49, ICD10: Z71.89 Packets given 3. Hypertension, essential - ICD9: 401.9, ICD10: I10 - good control - Continue current medication(s) - Recommended regular aerobic exercise. - Recommend home blood pressure monitoring, to bring results in on next visit - Goal of BP <130/80 4. Paroxysmal atrial fibrillation (HCC) - ICD9: 427.31, ICD10: I48.0 Continue current management 5. Elevated hemoglobin A1c - ICD9: 790.29, ICD10: R73.09 Await labs 6. Primary osteoarthritis of both knees - ICD9: 715.16, ICD10: M17.0 7. Obesity, Class II, BMI 35-39.9 - ICD9: 278.00, ICD10: E66.9 Stable 8. Osteopenia, senile - ICD9: 733.90, ICD10: M85.80 - Reviewed the need for Calcium and Vitamin D supplements and weight bearing exercise as tolerated F/u 6 months routine. Sarah Yang PA-C [facility] Miscellaneous Notes* Telephone Encounter - John Gomez MA - 10/17/2021 10:58 AM EDT Patient has been identified by name and date of : Yes Pending Prescriptions Disp Refills XARELTO 20 MG TABLET 90 tablet 1 Sig: Take 1 tablet by mouth once daily. FREDIS: Yes RX INSTRUCTIONS: Patient aware RX will be sent to pharmacy. No need to notify patient. John Gomez MA Rodolfo: 04/2021 Nov: 11/2021 Last refill: 04/2021 * Telephone Encounter - Jannette Cynthia Pss - 10/17/2021 10:44 AM EDT Patient has been identified by name and date of : Yes Pending Prescriptions Disp Refills XARELTO 20 MG TABLET 90 tablet 1 Sig: Take 1 tablet by mouth once daily. FREDIS: Yes RX INSTRUCTIONS: Patient aware RX will be sent to pharmacy. No need to notify patient. Jannette Marie Pss [facility] History of Present illness Narrative* Sushil Mallory RT(R) - 09/22/2021 11:20 AM EDT Radiology Service Progress Note PATIENT NAME: Krystyna Khanna DATE OF SERVICE: September 22, 2021 TIME: 11:13 AM PATIENT IDENTITY VERIFICATION COMPLETED USING TWO (2) IDENTIFIERS: Name and Date of confirmedby patient verbally. FALL SCREENING: Has the patient had 2 falls in the last year or 1 fall with injury or currently using an Ambulatory Assistive Device (Walker, Cane, Wheelchair, Crutches, etc.)? No PATIENT GENDER DATA: Female. status: : No status: NO. PATIENT RELEVANT IMPLANT DATA REVIEWED: Not Applicable RADIOLOGY DEPARTMENT: General X-ray: Exam(s) Completed: Chest X-Ray PERIPHERAL IV DATA: Not applicable SIGNED BY: RT Darek(R) September 22, 2021 11:13 AM documented in [facility] Instructions* Patient Instructions* Kiera Benson APRN.CNP - 09/21/2021 2:28 PM EDT -Increase fluid intake. --Rest as much as possible. - Nasal saline spray, gayle pot, flonase Take the entire course of antibiotics as prescribed. DO NOT stop taking it early, even if you are feeling better. -Monitor for signs of worsening infection: increased temperature, pain in face, ear pain or headaches or increase in nasal congestion/mucous that is not improving. -Educated patient on side effects of medication. Return tomorrow for chest xray If negative, complete antibiotic as ordered If positive for pneumonia, will probably need another antibiotic. Will call with results. * Seek medical care immediately, call 911, go to ER if you have chest pain, difficulty breathing, shortness of breath, inability to swallow. documented in this [facility]06[facility] History of Present illness Narrative* Kiera Benson APRN.CNP - 09/21/2021 2:21 PM EDT Subjective The history is provided by the patient. No language asst was used. HPI Krystyna Khanna is a 86 year old female who presents today for CC of cough and post nasal drainage for 10 days. She denies any fever, chest pain, She has not used any treatment or medications. Herfamily members were ill also, but no one was positive for covid. She was never tested. She denies any SOB on exertion, swelling in lower extremities. H/o afib BP 132/82 Pulse (!) 58 Temp 36.7 C (98.1 F) (Tympanic) Resp 18 Wt 81.4 kg (179 lb 6.4 oz) SpO2 95% BMI 37.92 kg/m Social History Tobacco Use Smoking status: Never Smoker Smokeless tobacco: Never Used Vaping Use Vaping Use: Never used Substance Use Topics Alcohol use: No Drug use: No PAST MEDICAL HISTORY Diagnosis Date Atrial fibrillation (HCC) Bilateral knee pain 01/09/2010 Elevated hemoglobin A1c 11/08/2017 Encounter for Medicare annual wellness exam 09/25/2020 Medical B eligibilty date 02/18/2000 Date of last exam 10/25/2020 Hepatitis thinks B History of congestive heart failure History of heart attack Hypertension, essential 11/08/2017 Obesity, Class II, BMI 35-39.9 11/08/2017 Osteoarthritis Osteopenia, senile 09/25/2020 I have confirmed and edited as necessary, the [facility] Review of Systems Constitutional: Negative for chills, fever and malaise/fatigue. HENT: Positive for congestion and sinus pain. Negative for ear pain and sore throat. Respiratory: Positive for cough. Negative for sputum production, shortness of breath and wheezing. Cardiovascular: Negative for chest pain. Gastrointestinal: Negative for abdominal pain, diarrhea, nausea and vomiting. Musculoskeletal: Negative for myalgias. Neurological: Negative for headaches. Objective Physical Exam Vitals and nursing note reviewed. HENT: Head: Normocephalic and atraumatic. Right Ear: Tympanic membrane, ear canal and external ear normal. Left Ear: Tympanic membrane, ear canal and external ear normal. Nose: Mucosal edema, congestion and rhinorrhea present. Right Sinus: Maxillary sinus tenderness present. No frontal sinus tenderness. Left Sinus: Maxillary sinus tenderness present. No frontal sinus tenderness. Comments: Thick Cloudy Post Nasal Drainage Mouth/Throat: Lips: [place]. Mouth: Mucous membranes are moist. Pharynx: Uvula midline. No oropharyngeal exudate or posterior oropharyngeal erythema. Pulmonary: Effort: Pulmonary effort is normal. Breath sounds: Normal breath sounds. Comments: A rattling moist cough was noted during this encounter. Talking in full sentences. Handling secretions without drooling. Lips and nailbeds are pink without cyanosis. Lymphadenopathy: Head: Right side of head: No submental, submandibular or tonsillar adenopathy. Left side of head: No submental, submandibular or tonsillar adenopathy. Cervical: No cervical adenopathy. Skin: General: Skin is warm and dry. Neurological: Mental Status: She is alert. Psychiatric: Mood and Affect: Affect normal. ASSESSMENT/PLAN: 1. Cough - ICD9: 786.2, ICD10: R05.9 (primary diagnosis) Probable post nasal drainage, possible pneumoia Will check cxr tomorrow and call with results if positive for pneumonia will need second antibiotic - XR CHEST 2V FRONTAL/LAT 2. Acute non-recurrent pansinusitis - ICD9: 461.8, ICD10: J01.40 - Will begin treatment with Augmentin 875 mg PO BID for 10 days - normal kidney function per labs 09.25.2020. - Supportive care with plenty of fluids, rest, and analgesia prn. - Follow up in one week if symptoms persist or worsen. Diagnosis and treatment plan were discussed and questions were answered to the patient's satisfaction. Pt acknowledged understanding of concepts and follow up plan. Specific signs and symptoms that would indicate the need for higher level of care were discussed indetail warranting prompt ER evaluation. Kiera Benson APRN.CNP documented in this encounterM[facility]08-[facility] History of Present illness Narrative* Yary Perez RT(R) - 11/21/2020 5:20 PM EDT Radiology Service Progress Note PATIENT NAME: Krystyna Khanna DATE OF SERVICE: November 21, 2020 TIME: 5:14 PM PATIENT IDENTITY VERIFICATION COMPLETED USING TWO (2) IDENTIFIERS: Name and Date of confirmedby patient verbally. FALL SCREENING: Has the patient had 2 falls in the last year or 1 fall with injury or currently using an Ambulatory Assistive Device (Walker, Cane, Wheelchair, Crutches, etc.)? No PATIENT GENDER DATA: Female. status: : No status: NO. PATIENT RELEVANT IMPLANT DATA REVIEWED: Yes RADIOLOGY DEPARTMENT: General X-ray: Exam(s) Completed: Upper Extremity X- Ray(s): Elbow, left and Wrist, left PERIPHERAL IV DATA: Not applicable SIGNED BY: RT Isaias(R) November 21, 2020 5:14 PM documented in this encounterM[facility] History of Past illness Narrative* Problem Noted Date Resolved Date Primary osteoarthritis of left knee 11/24/2017 12/23/2017 Arthritis of knee 11/19/2017 12/23/2017 documented as of this encounter (statuses as of 09/21/2021) [facility] of [facility] Narrative* Problem Noted Date Resolved Date Primary osteoarthritis of left knee 11/24/2017 12/23/2017 Arthritis of knee 11/19/2017 12/23/2017 documented as of this encounter (statuses as of 10/17/2021) [address]08-2018 History of Past illness Narrative* Problem Noted Date Resolved Date Primary osteoarthritis of left knee 11/24/2017 12/23/2017 Arthritis of knee 11/19/2017 12/23/2017 documented as of this encounter (statuses as of 11/20/2021) [address]08-2018 History of Past illness Narrative* Problem Noted Date Resolved Date Primary osteoarthritis of left knee 11/24/2017 12/23/2017 Arthritis of knee 11/19/2017 12/23/2017 documented as of this encounter (statuses as of 11/27/2021) [facility] Narrative* Problem Noted Date Resolved Date Primary osteoarthritis of left knee 11/24/2017 12/23/2017 Arthritis of knee 11/19/2017 12/23/2017 documented as of this encounter (statuses as of 11/28/2021) [address]-2018 History of Past illness Narrative* Problem Noted Date Resolved Date Primary osteoarthritis of left knee 11/24/2017 12/23/2017 Arthritis of knee 11/19/2017 12/23/2017 documented as of this encounter (statuses as of 11/28/2021) [facility] Narrative* Problem Noted Date Resolved Date Primary osteoarthritis of left knee 11/24/2017 12/23/2017 Arthritis of knee 11/19/2017 12/23/2017 documented as of this encounter (statuses as of 12/10/2021) [address]-2018 History of Past illness Narrative* Problem Noted Date Resolved Date Primary osteoarthritis of left knee 11/24/2017 12/23/2017 Arthritis of knee 11/19/2017 12/23/2017 documented as of this encounter (statuses as of 12/10/2021) [address]-2018 History of Past illness Narrative* Problem Noted Date Resolved Date Primary osteoarthritis of left knee 11/24/2017 12/23/2017 Arthritis of knee 11/19/2017 12/23/2017 documented as of this encounter (statuses as of 01/31/2022) [address]-2018 History of Past illness Narrative* Problem Noted Date Resolved Date Primary osteoarthritis of left knee 11/24/2017 12/23/2017 Arthritis of knee 11/19/2017 12/23/2017 documented as of this encounter (statuses as of 03/27/2022) [facility]* Problem Noted Date Resolved Date Primary osteoarthritis of left knee 11/24/2017 12/23/2017 Arthritis of knee 11/19/2017 12/23/2017 documented as of this encounter (statuses as of 04/24/2022) [facility]* Problem Noted Date Resolved Date Primary osteoarthritis of left knee 11/24/2017 12/23/2017 Arthritis of knee 11/19/2017 12/23/2017 documented as of this encounter (statuses as of 05/27/2022) [facility]arr[facility]* Problem Noted Date Resolved Date Primary osteoarthritis of left knee 11/24/2017 12/23/2017 Arthritis of knee 11/19/2017 12/23/2017 documented as of this encounter (statuses as of 07/05/2022) [facility]arrative* Problem Noted Date Resolved Date Primary osteoarthritis of left knee 11/24/2017 12/23/2017 Arthritis of knee 11/19/2017 12/23/2017 documented as of this encounter (statuses as of 07/15/2022) [facility]* Problem Noted Date Resolved Date Primary osteoarthritis of left knee 11/24/2017 12/23/2017 Arthritis of knee 11/19/2017 12/23/2017 documented as of this encounter (statuses as of 07/20/2022) [facility]* Problem Noted Date Diagnosed Date Resolved Date Primary osteoarthritis of left knee 11/24/2017 12/23/2017 Arthritis of knee 11/19/2017 12/23/2017 documented as of this encounter (statuses as of 11/25/2022) [facility]* Problem Noted Date Diagnosed Date Resolved Date Primary osteoarthritis of left knee 11/24/2017 12/23/2017 Arthritis of knee 11/19/2017 12/23/2017 documented as of this encounter (statuses as of 11/25/2022) [facility]* Problem Noted Date Diagnosed Date Resolved Date Primary osteoarthritis of left knee 11/24/2017 12/23/2017 Arthritis of knee 11/19/2017 12/23/2017 documented as of this encounter (statuses as of 11/26/2022) [address]2018 History of Past illness Narrative* Problem Noted Date Diagnosed Date Resolved Date Primary osteoarthritis of left knee 11/24/2017 12/23/2017 Arthritis of knee 11/19/2017 12/23/2017 documented as of this encounter (statuses as of 12/01/2022) [address]-2018 History of Past illness Narrative* Problem Noted Date Diagnosed Date Resolved Date Primary osteoarthritis of left knee 11/24/2017 12/23/2017 Arthritis of knee 11/19/2017 12/23/2017 documented as of this encounter (statuses as of 12/08/2022) [address]2018 History of Past illness Narrative* Problem Noted Date Diagnosed Date Resolved Date Primary osteoarthritis of left knee 11/24/2017 12/23/2017 Arthritis of knee 11/19/2017 12/23/2017 documented as of this encounter (statuses as of 12/14/2022) [address]-2018 History of Past illness Narrative* Problem Noted Date Diagnosed Date Resolved Date Primary osteoarthritis of left knee 11/24/2017 12/23/2017 Arthritis of knee 11/19/2017 12/23/2017 documented as of this encounter (statuses as of 12/22/2022) [address]-2018 History of Past illness Narrative* Problem Noted Date Diagnosed Date Resolved Date Primary osteoarthritis of left knee 11/24/2017 12/23/2017 Arthritis of knee 11/19/2017 12/23/2017 documented as of this encounter (statuses as of 12/29/2022) [address]2018 History of Past illness Narrative* Problem Noted Date Diagnosed Date Resolved Date Primary osteoarthritis of left knee 11/24/2017 12/23/2017 Arthritis of knee 11/19/2017 12/23/2017 documented as of this encounter (statuses as of 01/12/2023) [address]-2018 History of Past illness Narrative* Problem Noted Date Diagnosed Date Resolved Date Primary osteoarthritis of left knee 11/24/2017 12/23/2017 Arthritis of knee 11/19/2017 12/23/2017 documented as of this encounter (statuses as of 02/12/2023) [address]2018 History of Past illness Narrative* Problem Noted Date Diagnosed Date Resolved Date Primary osteoarthritis of left knee 11/24/2017 12/23/2017 Arthritis of knee 11/19/2017 12/23/2017 documented as of this encounter (statuses as of 02/26/2023) [address]-2018 History of Past illness Narrative* Problem Noted Date Diagnosed Date Resolved Date Primary osteoarthritis of left knee 11/24/2017 12/23/2017 Arthritis of knee 11/19/2017 12/23/2017 documented as of this encounter (statuses as of 03/05/2023) [address]-2018 History of Past illness Narrative* Problem Noted Date Diagnosed Date Resolved Date Primary osteoarthritis of left knee 11/24/2017 12/23/2017 Arthritis of knee 11/19/2017 12/23/2017 documented as of this encounter (statuses as of 03/08/2023) [address]2018 History of Past illness Narrative* Problem Noted Date Diagnosed Date Resolved Date Primary osteoarthritis of left knee 11/24/2017 12/23/2017 Arthritis of knee 11/19/2017 12/23/2017 documented as of this encounter (statuses as of 03/29/2023) [address]2018 History of Past illness Narrative* Problem Noted Date Diagnosed Date Resolved Date Primary osteoarthritis of left knee 11/24/2017 12/23/2017 Arthritis of knee 11/19/2017 12/23/2017 documented as of this encounter (statuses as of 03/31/2023) [address]2018 History of Past illness Narrative* Problem Noted Date Diagnosed Date Resolved Date Primary osteoarthritis of left knee 11/24/2017 12/23/2017 Arthritis of knee 11/19/2017 12/23/2017 documented as of this encounter (statuses as of 05/27/2023) [address]2018 History of Past illness Narrative* Problem Noted Date Diagnosed Date Resolved Date Primary osteoarthritis of left knee 11/24/2017 12/23/2017 Arthritis of knee 11/19/2017 12/23/2017 documented as of this encounter (statuses as of 06/28/2023) [address]2018 History of Past illness Narrative* Problem Noted Date Diagnosed Date Resolved Date Primary osteoarthritis of left knee 11/24/2017 12/23/2017 Arthritis of knee 11/19/2017 12/23/2017 documented as of this encounter (statuses as of 07/09/2023) [facility]* Problem Noted Date Diagnosed Date Resolved Date Primary osteoarthritis of left knee 11/24/2017 12/23/2017 Arthritis of knee 11/19/2017 12/23/2017 documented as of this encounter (statuses as of 07/28/2023) [facility]* Problem Noted Date Diagnosed Date Resolved Date Primary osteoarthritis of left knee 11/24/2017 12/23/2017 Arthritis of knee 11/19/2017 12/23/2017 documented as of this encounter (statuses as of 07/29/2023) [facility]* Problem Noted Date Diagnosed Date Resolved Date Primary osteoarthritis of left knee 11/24/2017 12/23/2017 Arthritis of knee 11/19/2017 12/23/2017 documented as of this encounter (statuses as of 08/04/2023) [facility]* Problem Noted Date Diagnosed Date Resolved Date Primary osteoarthritis of left knee 11/24/2017 12/23/2017 Arthritis of knee 11/19/2017 12/23/2017 documented as of this encounter (statuses as of 08/05/2023) [facility] Diagnosis Cough- Primary Acute non-recurrent pansinusitis [facility] Diagnosis Atrial fibrillation, unspecified type (HCC) [facility]* Diagnosis Encounter for Medicare annual wellness exam- Primary Routine general medical examination at a health care facility Advanced care planning/counseling discussion Other specified counseling Hypertension, essential Unspecified essential hypertension Paroxysmal atrial fibrillation (HCC) Atrial fibrillation Elevated hemoglobin A1c Other abnormal blood chemistry Primary osteoarthritis of both knees Primary localized osteoarthrosis, lower leg Obesity, Class II, BMI 35-39.9 Obesity, unspecified Osteopenia, senile Disorder of bone and cartilage, unspecified [facility] Diagnosis Hypercalcemia- Primary Hyperkalemia Hyperpotassemia Thrombocytopenia (HCC) Thrombocytopenia, unspecified [facility] Diagnosis Thrombocytopenia (HCC)- Primary Thrombocytopenia, unspecified [facility] Thrombocytopenia, secondary- Primary Other secondary thrombocytopenia documented in this encounter [facility]* Diagnosis URI, acute- Primary Acute upper respiratory infections of unspecified site documented in this encounter [facility] note* Diagnosis Bronchitis- Primary Bronchitis, not specified as acute or chronic documented in this encounter [facility] note* Diagnosis Atrial fibrillation, unspecified type (HCC) [facility]* Diagnosis Hypertension, essential- Primary Unspecified essential hypertension Elevated hemoglobin A1c Other abnormal blood chemistry Paroxysmal atrial fibrillation (HCC) Atrial fibrillation Pseudothrombocytopenia Obesity, Class II, BMI 35-39.9 Obesity, unspecified Medication management Encounter for long-term (current) use of other medications documented in this encounter [facility] note* Diagnosis Essential hypertension Unspecified essential hypertension documented in this encounter [facility] note* Diagnosis Essential hypertension Unspecified essential hypertension [facility] Diagnosis Encounter for Medicare annual wellness exam- Primary [facility] Advance directive discussed with patient Other specified counseling Osteopenia, senile Disorder of bone and cartilage, unspecified Obesity, Class II, BMI 35-39.9 Obesity, unspecified Hypertension, essential Unspecified essential hypertension Paroxysmal atrial fibrillation (HCC) Atrial fibrillation Elevated hemoglobin A1c Other abnormal blood chemistry Primary osteoarthritis of both knees Primary localized osteoarthrosis, lower leg 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 Suprapubic pain Abdominal pain, other specified site Verruca Viral warts, unspecified [facility]* Diagnosis 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- Primary documented in this encounter [facility] note* Diagnosis 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- Primary [facility] Diagnosis 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- Primary [facility]* Diagnosis 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- Primary documented in this encounter [facility] note* Diagnosis 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- Primary [facility] Diagnosis Protracted URI- Primary Acute upper respiratory infections of unspecified site [facility] Diagnosis Acute cough- Primary Bacterial pneumonia Bacterial pneumonia, unspecified documented in this encounter [facility] note* Diagnosis Subacute cough- Primary Cough Bronchospasm Acute bronchospasm [facility] Diagnosis Acute cough [facility] Diagnosis Acute cough- Primary [facility]* Diagnosis Hypertension, essential- Primary Unspecified essential hypertension Elevated hemoglobin A1c Other abnormal blood chemistry Paroxysmal atrial fibrillation (HCC) Atrial fibrillation Pseudothrombocytopenia Obesity, Class II, BMI 35-39.9 Obesity, unspecified Encounter for immunization Need for other specified prophylactic vaccination against single bacterial disease Common wart Other specified viral warts Impacted cerumen of right ear Impacted cerumen [facility] Diagnosis Essential hypertension Unspecified essential hypertension [facility] Diagnosis Essential hypertension Unspecified essential hypertension [facility] Diagnosis Acute cough- Primary Chronic cough Cough [facility] Diagnosis Chronic cough Cough [facility] Diagnosis Chronic cough- Primary Cough [facility]* Diagnosis Atrial fibrillation, unspecified type (HCC) Essential hypertension Unspecified essential hypertension [facility] Diagnosis Essential hypertension- Primary Unspecified essential hypertension Elevated hemoglobin A1c Other abnormal blood chemistry Paroxysmal atrial fibrillation (HCC) Atrial fibrillation Obesity, Class II, BMI 35-39.9 Obesity, unspecified Encounter for Medicare annual wellness exam Routine general medical examination at a health care facility Osteopenia, senile Disorder of bone and cartilage, unspecified Medication management Encounter for long-term (current) use of other medications Thrombocytopenia (HCC) Thrombocytopenia, unspecified Advance directive discussed with patient Other specified counseling Screening for depression Encounter for screening examination for other mental health and behavioral disorders Pain in both knees, unspecified chronicity Primary osteoarthritis of both knees Primary localized osteoarthrosis, lower leg [facility] Diagnosis Injury of left upper extremity, initial encounter- Primary [facility]* Diagnosis Paroxysmal atrial fibrillation (HCC)- Primary Atrial fibrillation [facility] Diagnosis Acute cough [facility]* Diagnosis Subacute cough Cough [facility] Diagnosis Acute cough [facility] Diagnosis 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 documented in this encounter [facility] note* Diagnosis COVID-19 virus infection- Primary Persistent cough Cough COVID-19 virus infection Persistent cough Cough documented in this encounter [facility] note* Diagnosis COVID-19 virus infection Persistent cough Cough [facility] Diagnosis Cough [facility]* Diagnosis Elbow pain, left Pain in joint, upper arm Acute wrist pain, left documented [facility]* Diagnosis Acute cough [facility]* Diagnosis Trouble breathing- Primary Other dyspnea and respiratory abnormality Rhonchi Abnormal chest sounds documented in this encounter [facility] note* Diagnosis Generalized weakness- Primary Other malaise and fatigue RSV (acute bronchiolitis due to respiratory syncytial virus) Acute bronchiolitis due to respiratory syncytial virus (RSV) RSV (acute bronchiolitis due to respiratory syncytial virus) Acute bronchiolitis due to respiratory syncytial virus (RSV) documented in this encounter [facility] note* Diagnosis RSV (acute bronchiolitis due to respiratory syncytial virus) Acute bronchiolitis due to respiratory syncytial virus (RSV) documented in this encounter [facility] note* Diagnosis Thrombocytopenia (HCC)- Primary Thrombocytopenia, unspecified Paroxysmal atrial fibrillation (HCC) Atrial fibrillation History of CVA (cerebrovascular accident) Transient ischemic attack (TIA), and cerebral infarction without residual deficits Left hemiparesis (HCC) Hemiplegia, unspecified, affecting unspecified side Dementia without behavioral disturbance (HCC) Dementia, unspecified, without behavioral disturbance Bacterial pneumonia Bacterial pneumonia, unspecified Hyponatremia Hyposmolality and/or hyponatremia documented in this encounter [facility] note* Diagnosis Hypertension, essential- Primary Unspecified essential hypertension Elevated hemoglobin A1c Other abnormal blood chemistry Paroxysmal atrial fibrillation (HCC) Atrial fibrillation History of CVA (cerebrovascular accident) Transient ischemic attack (TIA), and cerebral infarction without residual deficits Left hemiparesis (HCC) Hemiplegia, unspecified, affecting unspecified side Pseudothrombocytopenia Balance disorder Other symptoms involving nervous and musculoskeletal systems documented [facility]* Diagnosis Flu-like symptoms- Primary Other general symptoms Acute upper respiratory infection, unspecified Flu-like symptoms Other general symptoms documented in this encounter [facility] note* Diagnosis Flu-like symptoms Other general symptoms [facility] Diagnosis Pre-operative clearance- Primary Preoperative examination, unspecified Vitreous hemorrhage, right eye (HCC) Vitreous hemorrhage Hypertension, essential Unspecified essential hypertension Elevated hemoglobin A1c Other abnormal blood chemistry History of CVA (cerebrovascular accident) Transient ischemic attack (TIA), and cerebral infarction without residual deficits Paroxysmal atrial fibrillation (HCC) Atrial fibrillation RBBB Right bundle branch block [facility] Diagnosis Rib pain on left side- Primary Chest pain, unspecified Rib pain on left side Chest pain, unspecified [facility]* Diagnosis Rib pain on left side Chest pain, unspecified [facility] Diagnosis Open fracture of one rib of left side with routine healing, subsequent encounter- Primary [facility] Diagnosis Open fracture of one rib of left side with routine healing, subsequent encounter [facility] Diagnosis Multiple falls- Primary Personal history of fall Balance disorder Other symptoms involving nervous and musculoskeletal systems History of CVA (cerebrovascular accident) Transient ischemic attack (TIA), and cerebral infarction without residual deficits General weakness Other malaise and fatigue Urine frequency Urinary frequency Urgency of urination Primary insomnia Persistent disorder of initiating or maintaining sleep Itching Unspecified pruritic disorder Defecation symptom Other symptoms involving digestive system [facility]* Diagnosis Black tarry stools- Primary Blood in stool Acute cough Rhonchi at left lung base Acute cough Rhonchi at left lung base [facility]* Diagnosis Acute cough [facility] Diagnosis Acute cough Rhonchi at left lung base [facility]* Diagnosis Multiple falls- Primary Personal history of fall Balance disorder Other symptoms involving nervous and musculoskeletal systems History of CVA (cerebrovascular accident) Transient ischemic attack (TIA), and cerebral infarction without residual deficits General weakness Other malaise and fatigue documented in this encounter [facility] Discharge instructionsAdditional Instructions Continue your current medications. Plenty of fluids and rest. Follow-up with your doctor if not improving. Return if worse.[facility] Work Phone: Progress note Author Daniela Downey [facility] Note Date/Time January 11, 2025 11:37am [facility] [address] [place] [address] OFFICE VISIT Date of Service: 01/11/25 MR#: [id number] Acct: [id number] Name: KRYSTYNA KHANNA Rep #: [id number] : 1935 Provider: UBALDO Downey Age/Sex: 89/F Location: [email or web address] Status: Signed Intake Vital Signs 12/07/24 07:46 01/11/25 11:17 Height 4 ft 11 in 4 ft 11 in Weight: 153 lb BMI 30.9 BP 103/67 99/65 Blood Pressure Location Lt brachial Position Sitting Respiration 18 18 Pulse 80 72 Pulse Source Monitor Temp 98.2 F Temp Source Temporal Pulse Oximetry (%) 94 91 Oxygen Delivery Method room air Intake Visit Reasons: SENSATION OF NEEDING TO HAVE A BM Chief Complaint: Establish Care Crtts Required: No Accompanied by: Son Is patient in pain?: No Allergies propoxyphene (From Darvocet-N) Allergy (Unknown, Verified 01/11/25 11:19) unknown Sulfa (Sulfonamide Antibiotics) Allergy (Unknown, Verified 01/11/25 11:19) unknown Medications ?Medication ?Instructions ?Recorded ?Confirmed ?Type multivitamin 1 tab PO DAILY supplement 12/07/24 History apixaban 5 mg tablet (Eliquis) 5 mg PO BID AFIB 30 day s #60 tabs 04/20/24 12/07/24 Rx atorvastatin 40 mg tablet 40 mg PO QHS cholesterol 30 days 04/20/24 12/07/24 Rx #30 tabs acetaminophen 500 mg tablet 1,000 mg (2 x 500 mg) PO Q 6H PRN 05/02/24 12/07/24 Rx Pain Score 1-10 #1 TAB melatonin 3 mg tablet 3 mg PO QHS PRN Insomnia #1 TAB 05/02/24 12/07/24 Rx donepezil 10 mg tablet 10 mg PO DAILY 10/23/24 08/05/13 History amiodarone 200 mg tablet 200 mg PO QDAY #30 tabs 11/1712/07/24 Rx albuterol sulfate 90 mcg/actuation 2 puff inhalation Q 4-6H PRN 01/01/25 History aerosol inhaler (Ventolin HFA) benzonatate 100 mg capsule 100 mg PO BID PRN 01/01/25 History calcium carbonate (Calcium Antacid) 300 mg PO BID 12/18 09/10 History cholecalciferol (vitamin D3) 50 50 mcg PO QDAY 5 History mcg (2,000 unit) capsule loperamide 2 mg capsule 2 mg PO Q6H PRN 01/01/25 Hi story Have you fallen in the past year?: Yes PFSH Medical History Multiple falls Pseudothrombocytopenia History of heart attack Hepatitis Dementia without behavioral disturbance 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 Bilateral knee pain Balance disorder Defecation symptom A-fib Hyperglycemia, unspecified Essential (primary) hypertension Dysphagia, oropharyngeal phase Need for assistance with personal care Difficulty in walking, not elsewhere classified Muscle wasting and atrophy, not elsewhere classified, right lower leg 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 artery Chronic cough Chronic diarrhea Vitamin D deficiency Anticoagulant long-term use Salas's palsy COVID-19 (03/2021) Obesity Right bundle branch block (RBBB) Hyperlipidemia Prediabetes Paroxysmal atrial fibrillation Essential hypertension Osteopenia History of hepatitis Osteoarthritis Surgical History History of tubal ligation History of bilateral cataract extraction History of eyelid surgery 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 housing: apartment Smoking Status: Never smoker alcohol intake: never substance use type: does not use caffeine: Yes Type: coffee Number of servings: 1 HPI HPI Chief Complaint: Establish Care Details: 89-year-old female presents for initial consultation referred by Dr. Erickson for frequent bowel movements. Review of primary care records show the patient liveswith her son. PMH is significant for CVA, atrial fibrillation (Eliquis), PR, CHF, dementia, chronic left sided weakness with recent history of frequent falls, generalized weakness and urinary incontinence. Uses a walker to ambulate. Son had reported she is urinating frequently and can go into the bathroom up to 3 times an hour. She takes Imodium for frequent bowel movements. Stool was occult + 12/30/2024. Labs completed 10/23/2024 reveal hemoglobin of 12.4. - Labs: Recent blood work indicates hemoglobin levels of 12.7 compared to 12.4 in October, showing no significant blood loss. - seen in office today with her son - presents in WC - son reports she can go up to 6 times in an hour - h/o bleeding hemorrhoids - some blood in stool - frequent urges for urine and BM, son reports 2x an hour - fecal incontinence with diarrhea couple weeks ago - son report she has not seen any BRB - son thinks the blood was black - decrease in PO intake - uncertain of any weight loss - due to hypotension antihypertensives were discontinued - denies any ATB - intermittent use of Imodium ROS Const Constitutional: Positive for fatigue, frequent falls, headache(s) and weakness; No fever(s) or weight change ENT ENT: Positive for headache(s); No difficulty swallowing Gastro GI: Positive for diarrhea, Blood in stool and other; No abdominal pain, belching, bloating, change in bowel habits, change in stool character, coffee ground emesis, constipation, cramping, heartburn, difficulty swallowing, feeling full early, excessive flatus, incontinent of stools, Vomiting blood/hematemesis, loose stools, Black,tarry stools, nausea/dyspepsia, pain with swallowing or vomiting Musc Musculoskeletal: Positive for abnormal gait, joint pain, back pain, muscle weakness and Arthritis Skin Skin: Positive for lesions; No yellowing of the eye or itchy eyes Neuro Neurology: Positive for abnormal gait, weakness, frequent falls and headache(s) Psych Psychiatric: Positive for anxiety and Positive for depression Endo Endocrine: Positive for fatigue; No weight change Aller/Imm Allergy/Immunologic: No itchy eyes Tan/Lymp Hematologic/Lymphatic: Positive for easy bruising; No easy bleeding ROS Narrative - Gastrointestinal: Reports changes in bowel habits, presence of dark blood in stool, diarrhea, decreased appetite. - Genitourinary: Reports urinary incontinence and frequent urination. - Neurological: Reports weakness and dementia. - General: Reports decreased oral intake and possible weight loss. - Vision: Reports vision loss post-eye surgery. Exam Const General: cooperative, healthy appearing, no acute distress and well developed Nutritional Appearance: well nourished Orientation: alert Limitations: altered mental status Other: presents in , forgetful, poor historian HENMT Head: normocephalic Ears: hearing grossly normal bilaterally Mouth: moist mucous membranes Eyes Conjunctivae: conjunctivae normal Sclera: sclerae normal Neck Neck: normal visual inspection, full ROM and trachea midline Resp Effort & Inspection: normal respiratory effort, able to speak in complete sentences and symmetric chest movement Neuro General: patient alert Cognition: normal cognition Speech: speech normal Gait: normal gait Extrem General: normal to inspection (no edema noted) Psych Appearance: grossly normal and well kempt Affect: normal affect Attitude: cooperative Assessment and Plan Assessment and Plan (1) Change in bowel habits: Status: Acute (2) Fecal incontinence: Status: Acute (3) Diarrhea: Status: Acute Orders: Orders CDIFF (PCR) Today R15.9 - Full incontinence of feces, R19.4 - Change in bowel habit, R19.7 - Diarrhea, unspecified ENTERIC PATHOGEN PANEL STOOL Today K58.9 - Irritable bowel syndrome, unspecified, R15.9 - Full incontinence of feces, R19.4 - Change in bowel habit, R19.7 - Diarrhea, unspecified Giardia Lamblia, Stool EIA Today R15.9 - Full incontinence of feces, R19.4 - Change in bowel habit, R19.7 - Diarrhea, unspecified Plan 89-year-old female presents for initial consultation referred by Dr. Erickson for frequent bowel movements and occult positive stools. PMH is significant for CVA,atrial fibrillation (Eliquis), PR, CHF, dementia, chronic left sided weakness with recent history of frequent falls, generalized weakness and urinary incontinence. She is seen in the office today with her son who provides the majority of health history given her dementia. She reports having dark blood instools; however, recent labs reveal a hemoglobin of 12.7 which is stable compared to 12.4 this past October. She denies any nausea, vomiting, heartburn, orabdominal pain. Son reports she has a long history of loose stools, with new onset urgency, increased frequency, and episodes of fecal incontinence. She is taking donepezil which has a potential side effect of diarrhea. I have ordered stool testing and recommended a 2-week trial of lactose-free diet. She will follow-up in the office in 1 month. Plan Details Follow Up: 1 Month Coding Level of Care Code Off vis,new,level 3 Diagnoses Change in bowel habits R19.4 Fecal incontinence R15.9 Diarrhea R19.7 Clinical Quality Measures Falls Risk Screening/Assistive Devices Have you fallen in the past year?: Yes Smoking Screening Smoking Status: Never smoker 01/11/25 1204 <Electronically signed by Daniela CONNER> Date _ Daniela CONNER Cosigner Signature: Date (if applicable) CC: Dr. Rufino Erickson MD ~ [facility] Work Phone: [facility] for referral (narrative)* Outpatient Procedure (Routine) - Authorized Specialty Diagnoses / Procedures Referred By Gema ly Referred To Contact [facility] Diagnoses Chronic cough Procedures SPIROMETRY - BASELINE AND POST DILATOR BRNCDILAT RSPSE SPMTRY PRE&POST-BRNCDILAT ADMN Sarah Yang PA-C [address] [place] [address] [facility] [place] [address] [place] [address] Referral ID Status Reason Start Date Expiration Date Visits Requested Visits Authorized [id number] Authorized Auto-Generat ed Referral 07/27/2023 08/25/2024 1 1 [facility] for referral (narrative)* Diagnostic Procedure Only (Urgent) - Closed Specialty Diagnoses / Procedures Referred By Gema ly Referred To Contact XR IMAGING Diagnoses Injury of left upper extremity, initial encounter Procedures XR WRIST GENERAL 3V PA/LAT/OBL LEFT RADEX WRIST COMPLETE MINIMUM 3 VIEWS Ulices Moya APRN.[employer]CH[employer] [address] [place] [address] [place] [address] Referral ID Status Reason Start Date Expiration Date V isits Requested Visits Authorized [id number] Closed Auto-Generate d Referral 12/03/2023 01/01/2025 1 1 * Diagnostic Procedure Only (Urgent) - Closed Specialty Diagnoses / Procedures Referred By Contac t Referred To Contact XR IMAGING Diagnoses Injury of left upper extremity, initial encounter Procedures XR ELBOW SPECIAL VIEWS AP/LAT/OTHER LEFT RADEX ELBOW COMPLETE MINIMUM 3 VIEWS Ulices Moya APRN.CNP [address] [place] [address] [place] [address] Referral ID Status Reason Start Date Expiration Date V isits Requested Visits Authorized [id number] Closed Auto-Generate d Referral 12/03/2023 01/01/2025 1 1 [facility] for referral (narrative)* Diagnostic Procedure Only (Routine) - Closed Specialty Diagnoses / Procedures Referred By Contac t Referred To Contact XR IMAGING Diagnoses 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 Procedures XR LUMBAR GENERAL 3V AP/LAT/L5-S1 RADEX SPINE LUMBOSACRAL 2/3 VIEWS Sarah Yang PA-C [address] [place] [address] [place] [address] Referral ID Status Reason Start Date Expiration Date V isits Requested Visits Authorized [id number] Closed Auto-Generate d Referral 11/24/2022 12/24/2023 1 1 [facility] for referral (narrative)* Diagnostic Procedure Only (Urgent) - Closed Specialty Diagnoses / Procedures Referred By Contac t Referred To Contact XR IMAGING Diagnoses Acute wrist pain, left Procedures XR WRIST GENERAL 3V PA/LAT/OBL LT X-RAY WRIST COMPLET MIN 3 VIEWS Shady Smiley MD [address] [place] [address] [place] [address] Referral ID Status Reason Start Date Expiration Date V isits Requested Visits Authorized [id number] Closed Auto-Generate d Referral 11/21/2020 12/21/2021 1 1 * Diagnostic Procedure Only (Urgent) - Closed Specialty Diagnoses / Procedures Referred By Contac t Referred To Contact XR IMAGING Diagnoses Elbow pain, left Procedures XR ELBOW SPECIAL VIEWS AP/LAT/OTHER LT X-RAY ELBOW MINIMUM 3 VIEWS Shady Smiley MD [address] [place] [id number] [place] [address] Referral ID Status Reason Start Date Expiration Date V isits Requested Visits Authorized [id number] Closed Auto-Generate d Referral 11/21/2020 12/21/2021 1 1 [facility] for referral (narrative)No reason for referral information availableWKind[facility] Work Phone: Reason for visit Narrative* Diagnostic Procedure Only (Urgent) - Closed Specialty Diagnoses / Procedures Referred By Contac t Referred To Contact XR IMAGING Diagnoses Injury of left upper extremity, initial encounter Procedures XR WRIST GENERAL 3V PA/LAT/OBL LEFT RADEX WRIST COMPLETE MINIMUM 3 VIEWS Ulices Moya APRN.[employer] [address] [place] [address] [place] [address] Referral ID Status Reason Start Date Expiration Date V isits Requested Visits Authorized [id number] Closed Auto-Generate d Referral 12/03/2023 01/01/2025 1 1 [facility] for visit Narrative* Diagnostic Procedure Only (Routine) - Closed Specialty Diagnoses / Procedures Referred By Contac t Referred To Contact XR IMAGING Diagnoses 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 Procedures XR LUMBAR GENERAL 3V AP/LAT/L5-S1 RADEX SPINE LUMBOSACRAL 2/3 VIEWS Sarah Yang PA-C [address] [place] [address] [place] [address] Referral ID Status Reason Start Date Expiration Date V isits Requested Visits Authorized [id number] Closed Auto-Generate d Referral 11/24/2022 12/24/2023 1 1 [facility] for visit Narrative* Diagnostic Procedure Only (Urgent) - Closed Specialty Diagnoses / Procedures Referred By Contac t Referred To Contact XR IMAGING Diagnoses Acute wrist pain, left Procedures XR WRIST GENERAL 3V PA/LAT/OBL LT X-RAY WRIST COMPLET MIN 3 VIEWS Shady Smiley MD [address] [place] [id number] Xr Imaging [facility] Referral ID Status Reason Start Date Expiration Date V isits Requested Visits Authorized [id number] Closed Auto-Generate d Referral 11/21/2020 12/21/2021 1 1 [facility] for visit Narrative* Diagnostic Procedure Only (Urgent) - Closed Specialty Diagnoses / Procedures Referred By Contac t Referred To Contact XR IMAGING Diagnoses Rib pain on left side Procedures XR RIBS/CHEST 3V AP RIB/OBLS/CXR LEFT RADEX RIBS UNI W/POSTEROANT CH MINIMUM 3 VIEWS Cruz James, STOCK FEEDER.[employer]CH[employer] [address] [address] Phone: tel: fax: XR IMAGING [facility] Referral ID Status Reason Start Date Expiration Date V isits Requested Visits Authorized [id number] Closed Auto-Generate d Referral 10/07/2024 11/06/2025 1 1 [facility] for visit Narrative* Diagnostic Procedure Only (Routine) - Closed Specialty Diagnoses / Procedures Referred By Contac t Referred To Contact XR IMAGING Diagnoses Open fracture of one rib of left side with routine healing, subsequent encounter Procedures XR RIBS 2V AP/OBL LEFT RADEX RIBS UNILATERAL 2 VIEWS Lulu Staton, STOCK FEEDER.[employer]CH[employer] [address] [place] [address] Phone: tel: fax: [facility] [id number] Referral ID Status Reason Start Date Expiration Date V isits Requested Visits Authorized [id number] Closed Auto-Generate d Referral 11/02/2024 11/18/2025 1 1 [facility] Summary Purpose Family History Relationship Condition Age at Onset Recorded Date/T jacob mother Cardiac disease Unknown father Cardiac disease Unknown sister Cardiac disease Unknown Malignant neoplasm of breast Unknown aunt Malignant neoplasm of breast Unknown Diabetes mellitus Unknown grandmother Malignant neoplasm Unknown Advance Directives Documents on File Type Date Recorded Patient Negative Checker Expl anation Advance Directive(s) 01/22/2020 5:27 PM Advance Directive(s) 11/19/2017 11:55 AM Advance Directive(s) 11/19/2017 1:49 PM Advance Directive(s) 06/01/2017 2:35 PM Documents on File Type Date Recorded Patient Negative Checker Expl anation Advance Directive(s) 06/06/2024 12:38 PM Documents on File Type Date Recorded Patient Negative Checker Expl anation Advance Directive(s) 06/06/2024 12:38 PM Advance Directive Response Recorded Date/ Time Do you have a Healthcare Power of Product Delivery Specialist? Yes October 23, 2024 6:02pm Reason for Referral Specialty Diagnoses / Procedures Referred By Contac t Referred To Contact Hematology Diagnoses Thrombocytopenia (HCC) Procedures CONSULT TO HEMATOLOGY OFFICE/OUTPATIENT [facility] MDM 60-74 MINUTES Sarah Yang PA-C [address] [place] [address] Referral ID Status Reason Start Date Expiration Date Visits Requested Visits Authorized [id number] Authorized PCP Requested Referral 11/28/2021 11/28/2022 1 1 Specialty Diagnoses / Procedures Referred By Contac t Referred To Contact [facility] Diagnoses 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 Procedures CONSULT TO PHYSICAL THERAPY PHYSICAL THERAPY EVALUATION HIGH COMPLEX 45 MINS Sarah Yang PA-C [address] [place] [address] [facility] [place] [address] [place] [address] Referral ID Status Reason Start Date Expiration Date Visits Requested Visits Authorized [id number] Authorized PCP Requested Referral Auto-Generate d Referral 11/24/2022 11/24/2023 99 99 Specialty Diagnoses / Procedures Referred By Contac t Referred To Contact XR IMAGING Diagnoses 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 Procedures XR LUMBAR GENERAL 3V AP/LAT/L5-S1 RADEX SPINE LUMBOSACRAL 2/3 VIEWS Sarah Yang PA-C [address] [place] [address] Xr Imaging Referral ID Status Reason Start Date Expiration Date V isits Requested Visits Authorized [id number] Closed Auto-Generate d Referral 11/24/2022 12/24/2023 1 1 Specialty Diagnoses / Procedures Referred By Contmarcia t Referred To Contact Diagnoses Generalized weakness RSV (acute bronchiolitis due to respiratory syncytial virus) Procedures CONSULT TO [facility] Lulu Staton APRN.[employer] [address] [place] [address] [address] [place] [address] Referral ID Status Reason Start Date Expiration Date Visits Requested Visits Authorized [id number] New Request PCP Requested Referral 4 07/16/2024 1 1 Health Concerns Infection Onset Date Last Indicated Resolved Time COVID-19 Rule-Out 01/31/2022 01/31/2022 Chief Complaint and Reason for Visit Chief Complaint Admit Date S/P [facility] 05/03August 24, 2024 10:32a m weakness October 23, 2024 5:48p m Reason for Visit Admit Date Right bundle branch block (RBBB) August 10:32am Essential hypertension August 24, 2024 10: 32am Hyperlipidemia August 24, 2024 10:32a m Paroxysmal atrial fibrillation August 24, 2024 10:32am Chief Complaint Admit Date S/P [facility] 05/03August 24, 2024 10:32a m weakness October 23, 2024 5:48p m S/P [facility] 10/23October 26, 2024 9:29 am Reason for Visit Admit Date Right bundle branch block (RBBB) August 10:32am Essential hypertension August 24, 2024 10: 32am Hyperlipidemia August 24, 2024 10:32a m Paroxysmal atrial fibrillation August 24, 2024 10:32am Right bundle branch block (RBBB) October 262024 9:29am Essential hypertension October 26, 2024 9 :29am Hyperlipidemia October 26, 2024 9:29 am Paroxysmal atrial fibrillation October 9:29am Chief Complaint Admit Date S/P [facility] 05/03August 24, 2024 10:32a m weakness October 23, 2024 5:48p m S/P [facility] 10/23October 26, 2024 9:29 am PAROXYSMAL ATRIAL FIBRILLATION October 9:09am 6 M FU November 20, 2024 10: 54am Chief Complaint Admit Date S/P [facility] 05/03August 24, 2024 10:32a m weakness October 23, 2024 5:48p m S/P [facility] 10/23October 26, 2024 9:29 am PAROXYSMAL ATRIAL FIBRILLATION October 9:09am 6 M FU November 20, 2024 10: 54am 6 WK FU December 07, 2024 10 :58am Reason for Visit Admit Date Right bundle branch block (RBBB) August 10:32am Essential hypertension August 24, 2024 10: 32am Hyperlipidemia August 24, 2024 10:32a m Paroxysmal atrial fibrillation August 24, 2024 10:32am Right bundle branch block (RBBB) October 262024 9:29am Essential hypertension October 26, 2024 9 :29am Hyperlipidemia October 26, 2024 9:29 am Paroxysmal atrial fibrillation October 9:29am Vision loss of right eye November 20 10:54am A-fib November 20, 2024 10: 54am Cognitive dysfunction November 20, 2024 1 0:54am History of embolic stroke November 20 10:54am Left hemiparesis November 20, 2024 10: 54am Right bundle branch block (RBBB) December 07, 2024 10:58am Essential hypertension December 07, 2024 10:58am Hyperlipidemia December 07, 2024 10 :58am Paroxysmal atrial fibrillation December 072024 10:58am Chief Complaint Admit Date S/P [facility] 05/03August 24, 2024 10:32a m weakness October 23, 2024 5:48p m S/P [facility] 10/23October 26, 2024 9:29 am PAROXYSMAL ATRIAL FIBRILLATION October 9:09am 6 M FU November 20, 2024 10: 54am 6 WK FU December 07, 2024 10 :58am 1 WK Amiodarone December 14, 2024 10 :44am Chief Complaint Admit Date weakness October 23, 2024 5:48p m S/P [facility] 10/23October 26, 2024 9:29 am 30 DAY MONITOR October 31, 2024 8:00 am PAROXYSMAL ATRIAL FIBRILLATION October 9:09am 6 M FU November 20, 2024 10: 54am 6 WK FU December 07, 2024 10 :58am 1 WK Amiodarone December 14, 2024 10 :44am SENSATION OF NEEDING TO HAVE A BM Septem 2024 10:56am E ORDERS January 12, 2025 10:16am Incont. frequency January 16, 2025 10:58am Reason for Visit Admit Date Right bundle branch block (RBBB) October 262024 9:29am Essential hypertension October 26, 2024 9 :29am Hyperlipidemia October 26, 2024 9:29 am Paroxysmal atrial fibrillation October 9:29am Vision loss of right eye November 20 10:54am A-fib November 20, 2024 10: 54am Cognitive dysfunction November 20, 2024 1 0:54am History of embolic stroke November 20 10:54am Left hemiparesis November 20, 2024 10: 54am Right bundle branch block (RBBB) December 07, 2024 10:58am Essential hypertension December 07, 2024 10:58am Hyperlipidemia December 07, 2024 10 :58am Paroxysmal atrial fibrillation December 072024 10:58am Change in bowel habits January 11, 2 025 10:56am Diarrhea January 11, 2025 10:56am Fecal incontinence January 11, 2025 10:56am Additional Source Comments INFORMATION SOURCE (unrecogn ized section and content) DATE CREATED AUTHOR 10/07/2017 [facility] DATE CREATED AUTHOR AUTHOR'S ORGANIZ ATION 10/07/2017 [facility] DATE CREATED AUTHOR AUTHOR'S ORGANIZ ATION 10/08/2017 [facility] ([place]) DATE CREATED AUTHOR AUTHOR'S ORGANIZ ATION 07/27/2020 [facility] DATE CREATED AUTHOR AUTHOR'S ORGANIZ ATION 01/12/2025 [facility] DATE CREATED AUTHOR AUTHOR'S ORGANIZ ATION 01/12/2025 [facility] Source Comments (unrecognize d section and content) In the event this informatio n is protected by the Federal Confidentiality of Alcohol and Drug Abuse Patient Records regulations: The Federal rules restrict any use of the information to criminally investigate or prosecute any alcohol or drug abuse patient.[facility] the event this information is protected by the Federal Confidentiality of Alcohol and Drug Abuse Patient Records regulations: The Federal rules restrict any use of the information to criminally investigate or prosecute any alcohol or drug abuse patient.[facility]In the event this information is protected by the Federal Confidentiality of Alcohol and Drug Abuse Patient Records regulations: The Federal rules restrict any use of the information to criminally investigate or prosecute any alcohol or drug abuse patient.[facility]In the event this information is protected by the Federal Confidentiality of Alcohol and Drug Abuse Patient Records regulations: The Federal rules restrict any use of the information to criminally investigate or prosecute any alcohol or drug abuse patient.[facility]In the event this information is protected by the Federal Confidentiality of Alcohol and Drug Abuse Patient Records regulations: The Federal rules restrict any use of the information to criminally investigate or prosecute any alcohol or drug abuse patient.[facility]In the event this information is protected by the Federal Confidentiality of Alcohol and Drug Abuse Patient Records regulations: The Federal rules restrict any use of the information to criminally investigate or prosecute any alcohol or drug abuse patient.[facility]In the event this information is protected by the Federal Confidentiality of Alcohol and Drug Abuse Patient Records regulations: The Federal rules restrict any use of the information to criminally investigate or prosecute any alcohol or drug abuse patient.[facility] HospitalIn the event this information is protected by the Federal Confidentiality of Alcohol and Drug Abuse Patient Records regulations: The Federal rules restrict any use of the information to criminally investigate or prosecute any alcohol or drug abuse patient.[facility]In the event this information is protected by the Federal Confidentiality of Alcohol and Drug Abuse Patient Records regulations: The Federal rules restrict any use of the information to criminally investigate or prosecute any alcohol or drug abuse patient.[facility] HospitalIn the event this information is protected by the Federal Confidentiality of Alcohol and Drug Abuse Patient Records regulations: The Federal rules restrict any use of the information to criminally investigate or prosecute any alcohol or drug abuse patient.[facility] HospitalIn the event this information is protected by the Federal Confidentiality of Alcohol and Drug Abuse Patient Records regulations: The Federal rules restrict any use of the information to criminally investigate or prosecute any alcohol or drug abuse patient.[facility] HospitalIn the event this information is protected by the Federal Confidentiality of Alcohol and Drug Abuse Patient Records regulations: The Federal rules restrict any use of the information to criminally investigate or prosecute any alcohol or drug abuse patient.[facility] HospitalIn the event this information is protected by the Federal Confidentiality of Alcohol and Drug Abuse Patient Records regulations: The Federal rules restrict any use of the information to criminally investigate or prosecute any alcohol or drug abuse patient.[facility] HospitalIn the event this information is protected by the Federal Confidentiality of Alcohol and Drug Abuse Patient Records regulations: The Federal rules restrict any use of the information to criminally investigate or prosecute any alcohol or drug abuse patient.[facility] HospitalIn the event this information is protected by the Federal Confidentiality of Alcohol and Drug Abuse Patient Records regulations: The Federal rules restrict any use of the information to criminally investigate or prosecute any alcohol or drug abuse patient.[facility] HospitalIn the event this information is protected by the Federal Confidentiality of Alcohol and Drug Abuse Patient Records regulations: The Federal rules restrict any use of the information to criminally investigate or prosecute any alcohol or drug abuse patient.[facility] HospitalIn the event this information is protected by the Federal Confidentiality of Alcohol and Drug Abuse Patient Records regulations: The Federal rules restrict any use of the information to criminally investigate or prosecute any alcohol or drug abuse patient.[facility] HospitalIn the event this information is protected by the Federal Confidentiality of Alcohol and Drug Abuse Patient Records regulations: The Federal rules restrict any use of the information to criminally investigate or prosecute any alcohol or drug abuse patient.[facility] HospitalIn the event this information is protected by the Federal Confidentiality of Alcohol and Drug Abuse Patient Records regulations: The Federal rules restrict any use of the information to criminally investigate or prosecute any alcohol or drug abuse patient.[facility] HospitalIn the event this information is protected by the Federal Confidentiality of Alcohol and Drug Abuse Patient Records regulations: The Federal rules restrict any use of the information to criminally investigate or prosecute any alcohol or drug abuse patient.[facility] HospitalIn the event this information is protected by the Federal Confidentiality of Alcohol and Drug Abuse Patient Records regulations: The Federal rules restrict any use of the information to criminally investigate or prosecute any alcohol or drug abuse patient.[facility] HospitalIn the event this information is protected by the Federal Confidentiality of Alcohol and Drug Abuse Patient Records regulations: The Federal rules restrict any use of the information to criminally investigate or prosecute any alcohol or drug abuse patient.[facility] HospitalIn the event this information is protected by the Federal Confidentiality of Alcohol and Drug Abuse Patient Records regulations: The Federal rules restrict any use of the information to criminally investigate or prosecute any alcohol or drug abuse patient.[facility] HospitalIn the event this information is protected by the Federal Confidentiality of Alcohol and Drug Abuse Patient Records regulations: The Federal rules restrict any use of the information to criminally investigate or prosecute any alcohol or drug abuse patient.[facility] HospitalIn the event this information is protected by the Federal Confidentiality of Alcohol and Drug Abuse Patient Records regulations: The Federal rules restrict any use of the information to criminally investigate or prosecute any alcohol or drug abuse patient.[facility] HospitalIn the event this information is protected by the Federal Confidentiality of Alcohol and Drug Abuse Patient Records regulations: The Federal rules restrict any use of the information to criminally investigate or prosecute any alcohol or drug abuse patient.[facility] HospitalIn the event this information is protected by the Federal Confidentiality of Alcohol and Drug Abuse Patient Records regulations: The Federal rules restrict any use of the information to criminally investigate or prosecute any alcohol or drug abuse patient.[facility] HospitalIn the event this information is protected by the Federal Confidentiality of Alcohol and Drug Abuse Patient Records regulations: The Federal rules restrict any use of the information to criminally investigate or prosecute any alcohol or drug abuse patient.[facility] HospitalIn the event this information is protected by the Federal Confidentiality of Alcohol and Drug Abuse Patient Records regulations: The Federal rules restrict any use of the information to criminally investigate or prosecute any alcohol or drug abuse patient.[facility] HospitalIn the event this information is protected by the Federal Confidentiality of Alcohol and Drug Abuse Patient Records regulations: The Federal rules restrict any use of the information to criminally investigate or prosecute any alcohol or drug abuse patient.[facility] HospitalIn the event this information is protected by the Federal Confidentiality of Alcohol and Drug Abuse Patient Records regulations: The Federal rules restrict any use of the information to criminally investigate or prosecute any alcohol or drug abuse patient.[facility] HospitalIn the event this information is protected by the Federal Confidentiality of Alcohol and Drug Abuse Patient Records regulations: The Federal rules restrict any use of the information to criminally investigate or prosecute any alcohol or drug abuse patient.[facility] HospitalIn the event this information is protected by the Federal Confidentiality of Alcohol and Drug Abuse Patient Records regulations: The Federal rules restrict any use of the information to criminally investigate or prosecute any alcohol or drug abuse patient.[facility] HospitalIn the event this information is protected by the Federal Confidentiality of Alcohol and Drug Abuse Patient Records regulations: The Federal rules restrict any use of the information to criminally investigate or prosecute any alcohol or drug abuse patient.[facility] HospitalIn the event this information is protected by the Federal Confidentiality of Alcohol and Drug Abuse Patient Records regulations: The Federal rules restrict any use of the information to criminally investigate or prosecute any alcohol or drug abuse patient.[facility] HospitalIn the event this information is protected by the Federal Confidentiality of Alcohol and Drug Abuse Patient Records regulations: The Federal rules restrict any use of the information to criminally investigate or prosecute any alcohol or drug abuse patient.[facility] HospitalIn the event this information is protected by the Federal Confidentiality of Alcohol and Drug Abuse Patient Records regulations: The Federal rules restrict any use of the information to criminally investigate or prosecute any alcohol or drug abuse patient.[facility] HospitalIn the event this information is protected by the Federal Confidentiality of Alcohol and Drug Abuse Patient Records regulations: The Federal rules restrict any use of the information to criminally investigate or prosecute any alcohol or drug abuse patient.[facility] HospitalIn the event this information is protected by the Federal Confidentiality of Alcohol and Drug Abuse Patient Records regulations: The Federal rules restrict any use of the information to criminally investigate or prosecute any alcohol or drug abuse patient.[facility] HospitalIn the event this information is protected by the Federal Confidentiality of Alcohol and Drug Abuse Patient Records regulations: The Federal rules restrict any use of the information to criminally investigate or prosecute any alcohol or drug abuse patient.[facility] HospitalIn the event this information is protected by the Federal Confidentiality of Alcohol and Drug Abuse Patient Records regulations: The Federal rules restrict any use of the information to criminally investigate or prosecute any alcohol or drug abuse patient.[facility] HospitalIn the event this information is protected by the Federal Confidentiality of Alcohol and Drug Abuse Patient Records regulations: The Federal rules restrict any use of the information to criminally investigate or prosecute any alcohol or drug abuse patient.[facility] HospitalIn the event this information is protected by the Federal Confidentiality of Alcohol and Drug Abuse Patient Records regulations: The Federal rules restrict any use of the information to criminally investigate or prosecute any alcohol or drug abuse patient.[facility] HospitalIn the event this information is protected by the Federal Confidentiality of Alcohol and Drug Abuse Patient Records regulations: The Federal rules restrict any use of the information to criminally investigate or prosecute any alcohol or drug abuse patient.[facility] HospitalIn the event this information is protected by the Federal Confidentiality of Alcohol and Drug Abuse Patient Records regulations: The Federal rules restrict any use of the information to criminally investigate or prosecute any alcohol or drug abuse patient.[facility] HospitalIn the event this information is protected by the Federal Confidentiality of Alcohol and Drug Abuse Patient Records regulations: The Federal rules restrict any use of the information to criminally investigate or prosecute any alcohol or drug abuse patient.[facility] HospitalIn the event this information is protected by the Federal Confidentiality of Alcohol and Drug Abuse Patient Records regulations: The Federal rules restrict any use of the information to criminally investigate or prosecute any alcohol or drug abuse patient.[facility] HospitalIn the event this information is protected by the Federal Confidentiality of Alcohol and Drug Abuse Patient Records regulations: The Federal rules restrict any use of the information to criminally investigate or prosecute any alcohol or drug abuse patient.[facility] HospitalIn the event this information is protected by the Federal Confidentiality of Alcohol and Drug Abuse Patient Records regulations: The Federal rules restrict any use of the information to criminally investigate or prosecute any alcohol or drug abuse patient.[facility] HospitalIn the event this information is protected by the Federal Confidentiality of Alcohol and Drug Abuse Patient Records regulations: The Federal rules restrict any use of the information to criminally investigate or prosecute any alcohol or drug abuse patient.[facility] HospitalIn the event this information is protected by the Federal Confidentiality of Alcohol and Drug Abuse Patient Records regulations: The Federal rules restrict any use of the information to criminally investigate or prosecute any alcohol or drug abuse patient.[facility] HospitalIn the event this information is protected by the Federal Confidentiality of Alcohol and Drug Abuse Patient Records regulations: The Federal rules restrict any use of the information to criminally investigate or prosecute any alcohol or drug abuse patient.[facility] HospitalIn the event this information is protected by the Federal Confidentiality of Alcohol and Drug Abuse Patient Records regulations: The Federal rules restrict any use of the information to criminally investigate or prosecute any alcohol or drug abuse patient.[facility] HospitalIn the event this information is protected by the Federal Confidentiality of Alcohol and Drug Abuse Patient Records regulations: The Federal rules restrict any use of the information to criminally investigate or prosecute any alcohol or drug abuse patient.[facility] HospitalIn the event this information is protected by the Federal Confidentiality of Alcohol and Drug Abuse Patient Records regulations: The Federal rules restrict any use of the information to criminally investigate or prosecute any alcohol or drug abuse patient.[facility] HospitalIn the event this information is protected by the Federal Confidentiality of Alcohol and Drug Abuse Patient Records regulations: The Federal rules restrict any use of the information to criminally investigate or prosecute any alcohol or drug abuse patient.[facility] HospitalIn the event this information is protected by the Federal Confidentiality of Alcohol and Drug Abuse Patient Records regulations: The Federal rules restrict any use of the information to criminally investigate or prosecute any alcohol or drug abuse patient.[facility] HospitalIn the event this information is protected by the Federal Confidentiality of Alcohol and Drug Abuse Patient Records regulations: The Federal rules restrict any use of the information to criminally investigate or prosecute any alcohol or drug abuse patient.[facility] HospitalIn the event this information is protected by the Federal Confidentiality of Alcohol and Drug Abuse Patient Records regulations: The Federal rules restrict any use of the information to criminally investigate or prosecute any alcohol or drug abuse patient.[facility] HospitalIn the event this information is protected by the Federal Confidentiality of Alcohol and Drug Abuse Patient Records regulations: The Federal rules restrict any use of the information to criminally investigate or prosecute any alcohol or drug abuse patient.[facility] HospitalIn the event this information is protected by the Federal Confidentiality of Alcohol and Drug Abuse Patient Records regulations: The Federal rules restrict any use of the information to criminally investigate or prosecute any alcohol or drug abuse patient.[facility] HospitalIn the event this information is protected by the Federal Confidentiality of Alcohol and Drug Abuse Patient Records regulations: The Federal rules restrict any use of the information to criminally investigate or prosecute any alcohol or drug abuse patient.[facility] HospitalIn the event this information is protected by the Federal Confidentiality of Alcohol and Drug Abuse Patient Records regulations: The Federal rules restrict any use of the information to criminally investigate or prosecute any alcohol or drug abuse patient.[facility] HospitalIn the event this information is protected by the Federal Confidentiality of Alcohol and Drug Abuse Patient Records regulations: The Federal rules restrict any use of the information to criminally investigate or prosecute any alcohol or drug abuse patient.[facility] HospitalIn the event this information is protected by the Federal Confidentiality of Alcohol and Drug Abuse Patient Records regulations: The Federal rules restrict any use of the information to criminally investigate or prosecute any alcohol or drug abuse patient.[facility] HospitalIn the event this information is protected by the Federal Confidentiality of Alcohol and Drug Abuse Patient Records regulations: The Federal rules restrict any use of the information to criminally investigate or prosecute any alcohol or drug abuse patient.[facility] HospitalIn the event this information is protected by the Federal Confidentiality of Alcohol and Drug Abuse Patient Records regulations: The Federal rules restrict any use of the information to criminally investigate or prosecute any alcohol or drug abuse patient.[facility] HospitalIn the event this information is protected by the Federal Confidentiality of Alcohol and Drug Abuse Patient Records regulations: The Federal rules restrict any use of the information to criminally investigate or prosecute any alcohol or drug abuse patient.[facility] HospitalIn the event this information is protected by the Federal Confidentiality of Alcohol and Drug Abuse Patient Records regulations: The Federal rules restrict any use of the information to criminally investigate or prosecute any alcohol or drug abuse patient.[facility] HospitalIn the event this information is protected by the Federal Confidentiality of Alcohol and Drug Abuse Patient Records regulations: The Federal rules restrict any use of the information to criminally investigate or prosecute any alcohol or drug abuse patient.[facility] HospitalIn the event this information is protected by the Federal Confidentiality of Alcohol and Drug Abuse Patient Records regulations: The Federal rules restrict any use of the information to criminally investigate or prosecute any alcohol or drug abuse patient.[facility] HospitalIn the event this information is protected by the Federal Confidentiality of Alcohol and Drug Abuse Patient Records regulations: The Federal rules restrict any use of the information to criminally investigate or prosecute any alcohol or drug abuse patient.[facility] HospitalIn the event this information is protected by the Federal Confidentiality of Alcohol and Drug Abuse Patient Records regulations: The Federal rules restrict any use of the information to criminally investigate or prosecute any alcohol or drug abuse patient.[facility] HospitalIn the event this information is protected by the Federal Confidentiality of Alcohol and Drug Abuse Patient Records regulations: The Federal rules restrict any use of the information to criminally investigate or prosecute any alcohol or drug abuse patient.[facility] HospitalIn the event this information is protected by the Federal Confidentiality of Alcohol and Drug Abuse Patient Records regulations: The Federal rules restrict any use of the information to criminally investigate or prosecute any alcohol or drug abuse patient.[facility] HospitalIn the event this information is protected by the Federal Confidentiality of Alcohol and Drug Abuse Patient Records regulations: The Federal rules restrict any use of the information to criminally investigate or prosecute any alcohol or drug abuse patient.[facility] HospitalIn the event this information is protected by the Federal Confidentiality of Alcohol and Drug Abuse Patient Records regulations: The Federal rules restrict any use of the information to criminally investigate or prosecute any alcohol or drug abuse patient.[facility] HospitalIn the event this information is protected by the Federal Confidentiality of Alcohol and Drug Abuse Patient Records regulations: The Federal rules restrict any use of the information to criminally investigate or prosecute any alcohol or drug abuse patient.[facility] HospitalIn the event this information is protected by the Federal Confidentiality of Alcohol and Drug Abuse Patient Records regulations: The Federal rules restrict any use of the information to criminally investigate or prosecute any alcohol or drug abuse patient.[facility] HospitalIn the event this information is protected by the Federal Confidentiality of Alcohol and Drug Abuse Patient Records regulations: The Federal rules restrict any use of the information to criminally investigate or prosecute any alcohol or drug abuse patient.[facility] HospitalIn the event this information is protected by the Federal Confidentiality of Alcohol and Drug Abuse Patient Records regulations: The Federal rules restrict any use of the information to criminally investigate or prosecute any alcohol or drug abuse patient.[facility] HospitalIn the event this information is protected by the Federal Confidentiality of Alcohol and Drug Abuse Patient Records regulations: The Federal rules restrict any use of the information to criminally investigate or prosecute any alcohol or drug abuse patient.[facility] HospitalIn the event this information is protected by the Federal Confidentiality of Alcohol and Drug Abuse Patient Records regulations: The Federal rules restrict any use of the information to criminally investigate or prosecute any alcohol or drug abuse patient.[facility] HospitalIn the event this information is protected by the Federal Confidentiality of Alcohol and Drug Abuse Patient Records regulations: The Federal rules restrict any use of the information to criminally investigate or prosecute any alcohol or drug abuse patient.[facility] HospitalIn the event this information is protected by the Federal Confidentiality of Alcohol and Drug Abuse Patient Records regulations: The Federal rules restrict any use of the information to criminally investigate or prosecute any alcohol or drug abuse patient.[facility] HospitalIn the event this information is protected by the Federal Confidentiality of Alcohol and Drug Abuse Patient Records regulations: The Federal rules restrict any use of the information to criminally investigate or prosecute any alcohol or drug abuse patient.[facility] HospitalIn the event this information is protected by the Federal Confidentiality of Alcohol and Drug Abuse Patient Records regulations: The Federal rules restrict any use of the information to criminally investigate or prosecute any alcohol or drug abuse patient.[facility] HospitalIn the event this information is protected by the Federal Confidentiality of Alcohol and Drug Abuse Patient Records regulations: The Federal rules restrict any use of the information to criminally investigate or prosecute any alcohol or drug abuse patient.[facility] HospitalIn the event this information is protected by the Federal Confidentiality of Alcohol and Drug Abuse Patient Records regulations: The Federal rules restrict any use of the information to criminally investigate or prosecute any alcohol or drug abuse patient.[facility] HospitalIn the event this information is protected by the Federal Confidentiality of Alcohol and Drug Abuse Patient Records regulations: The Federal rules restrict any use of the information to criminally investigate or prosecute any alcohol or drug abuse patient.[facility] HospitalIn the event this information is protected by the Federal Confidentiality of Alcohol and Drug Abuse Patient Records regulations: The Federal rules restrict any use of the information to criminally investigate or prosecute any alcohol or drug abuse patient.[facility] HospitalIn the event this information is protected by the Federal Confidentiality of Alcohol and Drug Abuse Patient Records regulations: The Federal rules restrict any use of the information to criminally investigate or prosecute any alcohol or drug abuse patient.[facility] HospitalIn the event this information is protected by the Federal Confidentiality of Alcohol and Drug Abuse Patient Records regulations: The Federal rules restrict any use of the information to criminally investigate or prosecute any alcohol or drug abuse patient.[facility] HospitalIn the event this information is protected by the Federal Confidentiality of Alcohol and Drug Abuse Patient Records regulations: The Federal rules restrict any use of the information to criminally investigate or prosecute any alcohol or drug abuse patient.[facility] HospitalIn the event this information is protected by the Federal Confidentiality of Alcohol and Drug Abuse Patient Records regulations: The Federal rules restrict any use of the information to criminally investigate or prosecute any alcohol or drug abuse patient.[facility] HospitalIn the event this information is protected by the Federal Confidentiality of Alcohol and Drug Abuse Patient Records regulations: The Federal rules restrict any use of the information to criminally investigate or prosecute any alcohol or drug abuse patient.[facility] HospitalIn the event this information is protected by the Federal Confidentiality of Alcohol and Drug Abuse Patient Records regulations: The Federal rules restrict any use of the information to criminally investigate or prosecute any alcohol or drug abuse patient.[facility] HospitalIn the event this information is protected by the Federal Confidentiality of Alcohol and Drug Abuse Patient Records regulations: The Federal rules restrict any use of the information to criminally investigate or prosecute any alcohol or drug abuse patient.[facility] Reason for Visit (unrecogniz ed section and content) Reason Comments PT Eval Specialty Diagnoses / Procedures Referred By Contac t Referred To Contact [facility] Diagnoses Multiple falls Balance disorder History of CVA (cerebrovascular accident) General weakness Procedures PHYSICAL THERAPY EVALUATION HIGH COMPLEX 45 MINS Rufino Erickson MD [address] [place] [address] Phone: tel: fax: [facility] [address] [place] [address] Referral ID Status Reason Start Date Expiration Date Visits Requested Visits Authorized [id number] Authorized PCP Requested Referral Auto-Generate d Referral 12/11/2024 12/11/2025 99 99 Reason Comments PT Discharge Specialty Diagnoses / Procedures Referred By Contac t Referred To Contact [facility] Diagnoses 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 Procedures CONSULT TO PHYSICAL THERAPY PHYSICAL THERAPY EVALUATION HIGH COMPLEX 45 MINS Sarah Yang PA-C [address] [place] [address] [facility] [place] [address] [place] [address] Referral ID Status Reason Start Date Expiration Date Visits Requested Visits Authorized [id number] Authorized PCP Requested Referral Auto-Generate d Referral 11/24/2022 11/24/2023 99 99 Reason Comments Physical Therapy Reason Comments Cough cough x 2 weeks Reason Onset Date Comments Refill Request 10/17/2021 Reason Comments Medicare Wellness Exam Reason Comments Results Reason Comments Results Reason Comments Appointment Reason Comments New Patient Specialty Diagnoses / Procedures Referred By Contac t Referred To Contact Hematology Diagnoses Thrombocytopenia (HCC) Procedures CONSULT TO HEMATOLOGY OFFICE/OUTPATIENT NEW HIGH MDM 60-74 MINUTES Sarah Yang PA-C [address] [place] [address] Referral ID Status Reason Start Date Expiration Date V isits Requested Visits Authorized [id number] Closed PCP Requested Referral 11/28/2021 11/28/2022 1 1 Reason Comments Cough Sore throat, drainag e x 3 days Reason Comments Cough Reason Onset Date Comments Refill Request 04/23/2022 Reason Comments F/U 6 months Reason Comments Consult Reason Onset Date Comments Refill Request 07/15/2022 Reason Onset Date Comments Refill Request 07/20/2022 Reason Comments Medicare Wellness Exam Reason Comments Cough Chest congestion x1 week Reason Comments Cough Productive cough,4 d ays increasing, wheezing Reason Comments Cough Congestion x3 days. Reason Comments Follow Up Pneumonia Reason Comments Outside Cardiology Reason Comments repeat chest xray results Reason Comments Follow Up 6 month Reason Comments Refill Request Reason Onset Date Comments Refill Request 07/09/2023 Reason Comments Productive cough X 1-2 wks Reason Comments Spirometry Specialty Diagnoses / Procedures Referred By Contac t Referred To [facility] Diagnoses Chronic cough Procedures SPIROMETRY - BASELINE AND POST DILATOR BRNCDILAT RSPSE SPMTRY PRE&POST-BRNCDILAT ADMN Sarah Yang PA-C [address] [place] [address] [facility] [place] [address] [place] [address] Referral ID Status Reason Start Date Expiration Date V isits Requested Visits Authorized [id number] Closed Auto-Generate d Referral 07/27/2023 08/25/2024 1 1 Reason Comments Follow Up Cough Has an occasional pr oductive cough Reason Onset Date Comments Refill Request 10/11/2023 Reason Comments Patient Update Reason Comments ER F/U [facility] ER Reason Comments Wrist/forearm Injury L wrist injury x1 d ay, fell back and caught self with hand Reason Comments Covid Positive Reason Onset Date Comments Refill Request 02/18/2024 Reason Comments Cough Wheeze, SOB, chest c ongestion, yellow phlegm, x 4 days Reason Comments Hospital F/U RSV Reason Comments Home Care Reason Comments Home Care Delay SOC Reason Comments Home Care Confirmation Call Reason Comments ER Discharge Summary H&P, Neurology Cons ult Reason Comments ER F/U [facility] Reason Comments D/C Summary Events Transfer to Extended Care Summary Reason Comments Hospital F/U Reason Comments Hospital Follow Up [facility] Reason Comments Follow Up Reason Onset Date Comments Results 07/06/2024 Reason Comments Headache HU, ST and bodyaches x 3 days Reason Comments Pre-Op Exam Reason Comments Forms Pre-Op Reason Comments Fall Reason Comments left rib pain X 9 days after a fal l Reason Comments Follow Up Left rib pain Reason Comments ext document [facility] ER report Reason Comments Fall frequent Urinary Frequency Reason Comments Urinary Frequency Fall Reason Onset Date Comments Results 12/14/2024 Reason Comments Rectal Bleeding Reason Comments Cough X 1 week black stools Reason Onset Date Comments Results 12/29/2024 Reason Comments Forms [place] [facility] Teams (unrecognized sec tion and content) Case Consultant Relationship Specialty Start Date End Date Rufino Erickson MD [address] [place] [address] PCP - General Family Practice 09/25/20 Case Consultant Relationship Specialty Start Date End Date Rufino Erickson MD [address] [place] [address] PCP - General Family Practice 09/25/20 Case Consultant Relationship Specialty Start Date End Date Rufino Erickson MD [address] [place] [address] PCP - General Family Practice 09/25/20 Case Consultant Relationship Specialty Start Date End Date Rufino Erickson MD [address] [place] [address] PCP - General Family Practice 09/25/20 Case Consultant Relationship Specialty Start Date End Date Rufino Erickson MD [address] [place] [address] PCP - General Family Practice 09/25/20 Case Consultant Relationship Specialty Start Date End Date Rufino Erickson MD [address] [place] [address] PCP - General Family Medicine 09/25/20 Case Consultant Relationship Specialty Start Date End Date Rufino Erickson MD [address] [place] [address] PCP - General Family Medicine 09/25/20 Case Consultant Relationship Specialty Start Date End Date Rufino Erickson MD [address] [place] [address] PCP - General Family Medicine 09/25/20 Case Consultant Relationship Specialty Start Date End Date Rufino Erickson MD [address] [place] [address] PCP - General Family Medicine 09/25/20 Case Consultant Relationship Specialty Start Date End Date Rufino Erickson MD [address] [place] [address] PCP - General Family Medicine 09/25/20 Case Consultant Relationship Specialty Start Date End Date Rufino Erickson MD [address] [place] [address] PCP - General Family Medicine 09/25/20 Case Consultant Relationship Specialty Start Date End Date Rufino Erickson MD [address] [place] [address] PCP - General Family Medicine 09/25/20 Case Consultant Relationship Specialty Start Date End Date Rufino Erickson MD [address] [place] [address] PCP - General Family Medicine 09/25/20 Case Consultant Relationship Specialty Start Date End Date Rufino Erickson MD [address] [place] [address] PCP - General Family Medicine 09/25/20 Case Consultant Relationship Specialty Start Date End Date Rufino Erickson MD [address] [place] [address] PCP - General Family Medicine 09/25/20 Case Consultant Relationship Specialty Start Date End Date Rufino Erickson MD [address] [place] [address] PCP - General Family Medicine 09/25/20 Case Consultant Relationship Specialty Start Date End Date Rufino Erickson MD [address] [place] [address] PCP - General Family Medicine 09/25/20 Case Consultant Relationship Specialty Start Date End Date Rufino Erickson MD [address] [place] [address] PCP - General Family Medicine 09/25/20 Case Consultant Relationship Specialty Start Date End Date Rufino Erickson MD [address] [place] [address] PCP - General Family Medicine 09/25/20 Case Consultant Relationship Specialty Start Date End Date Rufino Erickson MD [address] [place] [address] PCP - General Family Medicine 09/25/20 Case Consultant Relationship Specialty Start Date End Date Rufino Erickson MD [address] [place] [address] PCP - General Family Medicine 09/25/20 Case Consultant Relationship Specialty Start Date End Date Rufino Erickson MD [address] [place] [address] PCP - General Family Medicine 09/25/20 Case Consultant Relationship Specialty Start Date End Date Rufino Erickson MD [address] [place] [address] PCP - General Family Medicine 09/25/20 Case Consultant Relationship Specialty Start Date End Date Rufino Erickson MD [address] [place] [address] PCP - General Family Medicine 09/25/20 Case Consultant Relationship Specialty Start Date End Date Rufino Erickson MD [address] [place] [address] PCP - General Family Medicine 09/25/20 Case Consultant Relationship Specialty Start Date End Date Rufino Erickson MD [address] [place] [address] PCP - General Family Medicine 09/25/20 Case Consultant Relationship Specialty Start Date End Date Rufino Erickson MD [address] [place] [address] PCP - General Family Medicine 09/25/20 Case Consultant Relationship Specialty Start Date End Date Rufino Erickson MD [address] [place] [address] PCP - General Family Medicine 09/25/20 Case Consultant Relationship Specialty Start Date End Date Rufino Erickson MD [address] [place] [address] PCP - General Family Medicine 09/25/20 Case Consultant Relationship Specialty Start Date End Date Rufino Erickson MD [address] [place] [address] PCP - General Family Medicine 09/25/20 Case Consultant Relationship Specialty Start Date End Date Rufino Erickson MD [address] [place] [address] PCP - General Family Medicine 09/25/20 Case Consultant Relationship Specialty Start Date End Date Rufino Erickson MD [address] [place] [address] PCP - General Family Medicine 09/25/20 Case Consultant Relationship Specialty Start Date End Date Rufino Erickson MD [address] [place] [address] PCP - General Family Medicine 09/25/20 Lulu Staton APRN.CNP [address] [place] [address] Metal Milling Machine Operator Family Medicine 03/25/24 Sarah Yang PA-C [address] [place] [address] Metal Milling Machine Operator Family Medicine 03/25/24 Case Consultant Relationship Specialty Start Date End Date Rufino Erickson MD [address] [place] [address] PCP - General Family Medicine 09/25/20 Lulu Staton, PHI.CYLINDER BLOCK MECHANIC [address] [place] [address] Metal Milling Machine Operator [facility] 03/25/24 Sarah Yang PA-C [address] [place] [address] Metal Milling Machine Operator [facility] 03/25/24 Mindi Vuong, RN [address] [place] [address] Primary Care Boat Engines Installer 04/10/24 Case Consultant Relationship Specialty Start Date End Date Rufino Erickson MD [address] [place] [address] PCP - General Family Medicine 09/25/20 Lulu Staton, STOCK FEEDER.[employer]ER BLOCK MECHANIC [address] [place] [address] Metal Milling Machine Operator [facility] 03/25/24 Sarah Yang PA-C [address] [place] [address] Metal Milling Machine Operator [facility] 03/25/24 Mindi Vuong, XOCHITL [address] [place] [address] Primary Care Boat Engines Installer 04/10/24 Case Consultant Relationship Specialty Start Date End Date Rufino Erickson MD [address] [place] [address] PCP - General Family Medicine 09/25/20 Lulu Staton, PHI.CYLINDER BLOCK MECHANIC [address] [place] [address] Metal Milling Machine Operator Family Medicine 03/25/24 Sarah Yang PA-C [address] [place] [address] Metal Milling Machine Operator [facility] 03/25/24 Mindi Vuong, XOCHITL [address] [place] [address] Primary Care Boat Engines Installer 04/10/24 Case Consultant Relationship Specialty Start Date End Date Rufino Erickson MD [address] [place] [address] PCP - General Family Medicine 09/25/20 Lulu Staton APRN.CYLINDER BLOCK MECHANIC [address] [place] [address] Metal Milling Machine Operator Family [facility] 03/25/24 Sarah Yang PA-C [address] [place] [address] Metal Milling Machine Operator [facility] 03/25/24 Mindi Vuong, XOCHITL [address] [place] [address] Primary Care Boat Engines Installer 04/10/24 Lulu Staton, PHI.CYLINDER BLOCK MECHANIC [address] [place] [address] Referring Family Medicine 04/18/24 Lulu Staton APRN.CYLINDER BLOCK MECHANIC [address] [place] [address] Home Care Provider Family Medicine 04/18/24 Case Consultant Relationship Specialty Start Date End Date Rufino Erickson MD [address] [place] [address] PCP - General Family Medicine 09/25/20 Lulu Staton APRN.CYLINDER BLOCK MECHANIC [facility] [place] [address] Metal Milling Machine Operator Family Medicine 03/25/24 Sarah Yang PA-C [address] [place] [address] Metal Milling Machine Operator Family Medicine 03/25/24 Mindi Vuong, XOCHITL [address] [place] [address] Primary Care Boat Engines Installer 04/10/24 Lulu Staton APRN.CYLINDER BLOCK MECHANIC [address] [place] [address] Referring Family Medicine 04/18/24 Lulu Staton APRN.CYLINDER BLOCK MECHANIC [address] [place] [address] Home Care Provider Family Medicine 04/18/24 Aida Pepper, PT [address] [place] [address] Balance Staff Inspector Post Acute Care 04/18/24 Case Consultant Relationship Specialty Start Date End Date Rufino Erickson MD [address] [place] [address] PCP - General Family Medicine 09/25/20 Lulu Staton, PHI.CYLINDER BLOCK MECHANIC [address] [place] [address] Metal Milling Machine Operator [facility] 03/25/24 Sarah Yang PA-C [address] [place] [address] Metal Milling Machine Operator Family Medicine 03/25/24 Mindi Vuong, XOCHITL [address] [place], [place] [id number] Primary Care Boat Engines Installer 04/10/24 Lulu Staton APRN.CYLINDER BLOCK MECHANIC [address] [place] [address] Referring Family Medicine 04/18/24 Lulu Staton APRN.CYLINDER BLOCK MECHANIC [address] [place] [address] 51236 Home Care Provider Family Medicine 04/18/24 Case Consultant Relationship Specialty Start Date End Date Rufino Erickson MD [address] [place] [address] PCP - General Family Medicine 09/25/20 Lulu Staton APRN.CYLINDER BLOCK MECHANIC [address] [place] [address] 87691 Metal Milling Machine Operator Family Medicine 03/25/24 Sarah Yang PA-C [address] [place] [address] 37356 Metal Milling Machine Operator Family Medicine 03/25/24 Mindi Vuong, XOCHITL [address] [place] [address] Primary Care Boat Engines Installer 04/10/24 Lulu Staton APRN.CYLINDER BLOCK MECHANIC [address] [place] [address] 84282 Referring Family Medicine 04/18/24 Lulu Staton APRN.CYLINDER BLOCK MECHANIC [address] [place] [address] 72120 Home Care Provider Family Medicine 04/18/24 Case Consultant Relationship Specialty Start Date End Date Rufino Erickson MD [address] [place] [address] PCP - General Family Medicine 09/25/20 Lulu Staton APRN.CYLINDER BLOCK MECHANIC [address] [place] [address] Metal Milling Machine Operator Family Medicine 03/25/24 Sarah Yang PA-C [address] [place] [address] Metal Milling Machine Operator Family Medicine 03/25/24 Lulu Staton APRN.CYLINDER BLOCK MECHANIC [address] [place] [address] 56307 Referring Family Medicine 04/18/24 Lulu Staton APRN.CYLINDER BLOCK MECHANIC [address] [place] [address] 94091 Home Care Provider Family Medicine 04/18/24 Case Consultant Relationship Specialty Start Date End Date Rufino Erickson MD [address] [place] [address] 67690 PCP - General Family Medicine 09/25/20 Lulu Staton APRN.CYLINDER BLOCK MECHANIC [address] [place] [address] 00796 Metal Milling Machine Operator Family Medicine 03/25/24 Sarah Yang PA-C [address] [place] [address] Metal Milling Machine Operator Family Medicine 03/25/24 Lulu Staton APRN.CYLINDER BLOCK MECHANIC [address] [place] [address] 45496 Referring Family Medicine 04/18/24 Lulu Staton APRN.CYLINDER BLOCK MECHANIC [address] [facility] [place] [address] Home Care Provider Family Medicine 04/18/24 Case Consultant Relationship Specialty Start Date End Date Rufino Erickson MD [address] [facility] [place] [address] PCP - General Family Medicine 09/25/20 Lulu Staton APRN.CYLINDER BLOCK MECHANIC [address] [place] [address] 31686 Metal Milling Machine Operator Family Medicine 03/25/24 Sarah Yang PA-C [facility] [place] [address] Metal Milling Machine Operator Family Medicine 03/25/24 Lulu Staton APRN.CYLINDER BLOCK MECHANIC [address] [place] [address] 27494 Referring Family Medicine 04/18/24 Lulu Staton APRN.CYLINDER BLOCK MECHANIC [address] [place] [address] 39996 Home Care Provider Family Medicine 04/18/24 Case Consultant Relationship Specialty Start Date End Date Rufino Erickson MD [address] [facility] [place] [address] PCP - General Family Medicine 09/25/20 Lulu Staton APRN.CYLINDER BLOCK MECHANIC [facility] [place] [address] Metal Milling Machine Operator Family Medicine 03/25/24 Sarah Yang PA-C [facility] [place] [address] Metal Milling Machine Operator Family Medicine 03/25/24 Lulu Staton APRN.CYLINDER BLOCK MECHANIC [address] [place] [address] 87298 Referring Family Medicine 04/18/24 Lulu Staton APRN.CYLINDER BLOCK MECHANIC [address] [place] [address] 36582 Home Care Provider Family Medicine 04/18/24 Case Consultant Relationship Specialty Start Date End Date Rufino Erickson MD [address] [place] [address] 76796 PCP - General Family Medicine 09/25/20 Lulu Staton APRN.CYLINDER BLOCK MECHANIC [address] [place] [address] 95392 Metal Milling Machine Operator Family Medicine 03/25/24 Sarah Yang PA-C [address] [place] [address] 60503 Metal Milling Machine Operator Family Medicine 03/25/24 Lulu Staton APRN.CYLINDER BLOCK MECHANIC [address] [place] [address] 93593 Referring Family Medicine 04/18/24 Lulu Staton APRN.CYLINDER BLOCK MECHANIC [address] [place] [address] 64889 Home Care Provider Family Medicine 04/18/24 Case Consultant Relationship Specialty Start Date End Date Rufino Erickson MD [address] [place] [address] PCP - General Family Medicine 09/25/20 Lulu Staton APRN.CYLINDER BLOCK MECHANIC [address] [facility] [place] [address] Metal Milling Machine Operator Family Medicine 03/25/24 Sarah Yang PA-C [address] [place] [address] Metal Milling Machine Operator Family Medicine 03/25/24 Lulu Staton APRN.CYLINDER BLOCK MECHANIC [address] [place] [address] 68716 Referring Family Medicine 04/18/24 Lulu Staton APRN.CYLINDER BLOCK MECHANIC [address] [place] [address] 30484 Home Care Provider Family Medicine 04/18/24 Case Consultant Relationship Specialty Start Date End Date Rufino Erickson MD [address] [place] [address] 00618 PCP - General Family Medicine 09/25/20 Lulu Staton APRN.CYLINDER BLOCK MECHANIC [address] [place] [address] 58969 Metal Milling Machine Operator Family Medicine 03/25/24 Sarah Yang PA-C [facility] [address] Metal Milling Machine Operator Family Medicine 03/25/24 Lulu Staton APRN.CYLINDER BLOCK MECHANIC [facility] [place] [address] Referring Family Medicine 04/18/24 Lulu Staton APRN.CYLINDER BLOCK MECHANIC [address] [place] [address] 37585 Home Care Provider Family Medicine 04/18/24 Case Consultant Relationship Specialty Start Date End Date Rufino Erickson MD [address] [place] [address] PCP - General Family Medicine 09/25/20 Lulu Staton APRN.CYLINDER BLOCK MECHANIC [address] [place] [address] 51660 Metal Milling Machine Operator Family Medicine 03/25/24 09/03/24 Sarah Yang PA-C [address] [place] [address] 61984 Metal Milling Machine Operator Family Medicine 03/25/24 Lulu Staton APRN.CYLINDER BLOCK MECHANIC [address] [place] [address] 65769 Referring Family Medicine 04/18/24 Lulu Staton APRN.CYLINDER BLOCK MECHANIC [address] [place] [address] 68929 Home Care Provider Family Medicine 04/18/24 Case Consultant Relationship Specialty Start Date End Date Rufino Erickson MD [address] [place] [address] 19031 PCP - General Family Medicine 09/25/20 Lulu Staton STOCK FEEDER.CYLINDER BLOCK MECHANIC [address] [place] [address] 70344 Referring Family Medicine 04/18/24 Lulu Staton APRN.CYLINDER BLOCK MECHANIC [address] [place] [address] 94613 Home Care Provider Family Medicine 04/18/24 Lulu Staton APRN.CYLINDER BLOCK MECHANIC [address] [place] [address] Metal Milling Machine Operator Family Medicine 09/18/24 Sarah Yang PA-C [address] [place] [address] Metal Milling Machine Operator Family Medicine 09/18/24 Case Consultant Relationship Specialty Start Date End Date Rufino Erickson MD [address] [place] [address] PCP - General Family Medicine 09/25/20 Lulu Staton APRN.CYLINDER BLOCK MECHANIC [address] [place] [address] 73083 Referring Family Medicine 04/18/24 Lulu Staton APRN.CYLINDER BLOCK MECHANIC [address] [place] [address] 16551 Home Care Provider Family Medicine 04/18/24 Lulu Staton, PHI.CYLINDER BLOCK MECHANIC [address] [place] [address] 32946 Metal Milling Machine Operator Family Medicine 09/18/24 Sarah Yang PA-C [address] [facility] [place] [address] Metal Milling Machine Operator Family Medicine 09/18/24 Case Consultant Relationship Specialty Start Date End Date Rufino Erickson MD [address] [facility] [place] [address] PCP - General Family Medicine 09/25/20 Lulu Staton APRN.CYLINDER BLOCK MECHANIC [facility] [place] [address] Referring Family Medicine 04/18/24 Lulu Staton APRN.CYLINDER BLOCK MECHANIC [address] [place] [address] 33610 Home Care Provider Family Medicine 04/18/24 Lulu Staton APRN.CYLINDER BLOCK MECHANIC [address] [place] [address] 10478 Metal Milling Machine Operator Family Medicine 09/18/24 Sarah Yang PA-C [address] [place] [address] 31619 Metal Milling Machine Operator Family Medicine 09/18/24 Case Consultant Relationship Specialty Start Date End Date Rufino Erickson MD [address] [place] [address] 93108 PCP - General Family Medicine 09/25/20 Lulu Staton APRN.CYLINDER BLOCK MECHANIC [address] [place] [address] 34830 Referring Family Medicine 04/18/24 Lulu tSaton APRN.CYLINDER BLOCK MECHANIC [address] [place] [address] 91548 Home Care Provider Family Medicine 04/18/24 Lulu Staton APRN.CYLINDER BLOCK MECHANIC [address] [place] [address] 87785 Metal Milling Machine Operator Family Medicine 09/18/24 Sarah Yang PA-C [address] [place] [address] Metal Milling Machine Operator Family Medicine 09/18/24 Case Consultant Relationship Specialty Start Date End Date Rufino Erickson MD [address] [facility] [place] [address] PCP - General Family Medicine 09/25/20 Lulu Staton APRN.CYLINDER BLOCK MECHANIC [address] [place] [address] Referring Family Medicine 04/18/24 Lulu Staton APRN.CYLINDER BLOCK MECHANIC [address] [place] [address] 13089 Home Care Provider Family Medicine 04/18/24 Lulu Staton APRN.CYLINDER BLOCK MECHANIC [address] [place] [address] 57130 Metal Milling Machine Operator Family Medicine 09/18/24 Sarah Yang PA-C [address] [place] [address] Metal Milling Machine Operator Family Medicine 09/18/24 Case Consultant Relationship Specialty Start Date End Date Rufino Erickson MD [address] [place] [address] PCP - General Family Medicine 09/25/20 Lulu Staton APRN.CYLINDER BLOCK MECHANIC [address] [place] [address] 58059 Referring Family Medicine 04/18/24 Lulu Staton APRN.CYLINDER BLOCK MECHANIC [facility] [place] [address] Home Care Provider Family Medicine 04/18/24 Lulu Staton APRN.CYLINDER BLOCK MECHANIC [facility] [place] [address] Metal Milling Machine Operator Family [facility] 09/18/24 Sarah Yang PA-C [address] [place], [place] 400991 Metal Milling Machine Operator Family [facility] 09/18/24 Team Status: Active Member Role/Relationship Status Dates Dr. Rufino Erickson MD Primary Care Provider Active Team Status: Inactive Member Role/Relationship Status Dates Dr. Rufino Erickson MD Primary Care Provider Active Start: August 24, 2024 End: August 24, 2024 Dr. Rufino Erickson MD Referring Provider Active Start: August 24, 2024 End: August 24, 2024 Melisa Vázquez NP, CITY ASSESSOR-C Attending Provider Active Start: August 24, 2024 End: August 24, 2024 Team Status: Inactive Member Role/Relationship Status Dates Dr. Rufino Erickson MD Primary Care Provider Active Start: October 23, 2024 End: October 23, 2024 Dr. Michael Sagastume MD Emergency Provider Active S tart: October 23, 2024 End: October 23, 2024 Case Consultant Relationship Specialty Start Date End Date Rufino Erickson MD [address] [place] [address] [phone] PCP - General Family Medicine 09/25/20 Lulu Staton APRN.CYLINDER BLOCK MECHANIC [address] [place] [address] [phone] Referring Family Medicine 04/18/24 Lulu Staton APRN.CYLINDER BLOCK MECHANIC [address] [place] [address] [phone] Home Care Provider Family Medicine 04/18/24 Lulu Staton APRN.CYLINDER BLOCK MECHANIC [address] [place] [address] [phone] Metal Milling Machine Operator Family [facility] 09/18/24 Sarah Yang PA-C [address] [place], [place] 359231 [facility] 09/18/24 Team Status: Inactive Member Role/Relationship Status Dates Dr. Rufino Erickson MD Primary Care Provider Active Start: October 26, 2024 End: October 26, 2024 Dr. Rufino Erickson MD Referring Provider Active Start: October 26, 2024 End: October 26, 2024 Mónica HANSON, PA Attending Provider Active Start: October 26, 2024 End: October 26, 2024 Case Consultant Relationship Specialty [place] [address] [place] [address] [phone] PCP - General Family Medicine 09/25/20 Lulu Staton, PHI.CYLINDER BLOCK MECHANIC [address] [place] [address] [phone] Referring Family Medicine 04/18/24 Lulu Staton, PHI.CYLINDER BLOCK MECHANIC [address] [place], [place] 859831 Home Care Provider Family Medicine 04/18/24 Lulu Staton, PHI.CYLINDER BLOCK MECHANIC [address] [place] [address] [phone] [facility] 09/18/24 Sarah Yang PA-C [address] [place], [place] 754751 [facility] 09/18/24 Team Status: Inactive Member Role/Relationship Status Dates Dr. Rufino Erickson MD Primary Care Provider Active Start: October 23, 2024 End: October 23, 2024 Dr. Michael Sagastume MD Attending Provider Active S tart: October 23, 2024 End: October 23, 2024 Dr. Michael Sagastume MD Emergency Provider Active S tart: October 23, 2024 End: October 23, 2024 Team Status: Active Member Role/Relationship Status Dates Dr. Rufino Erickson MD Primary Care Provider Active Start: October 31, 2024 Mónica HANSON PA Attending Provider Active Start: October 31, 2024 Mónica HANSON PA Referring Provider Active Start: October 31, 2024 Team Status: Inactive Member Role/Relationship Status Dates Dr. Rufino Erickson MD Primary Care Provider Active Start: November 20, 2024 End: November 20, 2024 Dr. Rufino Erickson MD Referring Provider Active Start: November 20, 2024 End: November 20, 2024 Dr. Ramu Aguilar MD Attending Provider Active Start: November 20, 2024 End: November 20, 2024 Team Status: Inactive Member Role/Relationship Status Dates Dr. Rufino Erickson MD Primary Care Provider Active Start: December 07, 2024 End: December 07, 2024 Dr. Rufino Erickson MD Referring Provider Active Start: December 07, 2024 End: December 07, 2024 Mónica HANSON PA Attending Provider Active Start: December 07, 2024 End: December 07, 2024 Case Consultant Relationship Specialty Start Date End Date Rufino Erickson MD [address] [place] [address] [phone] PCP - General Family Medicine 09/25/20 Lulu Staton, STOCK FEEDER.CYLINDER BLOCK MECHANIC [address] [place] [address] [phone] Referring Family Medicine 04/18/24 Lulu Staton, STOCK FEEDER.CYLINDER BLOCK MECHANIC [address] [place] [address] [phone] Home Care Provider Family Medicine 04/18/24 Lulu Staton, STOCK FEEDER.CYLINDER BLOCK MECHANIC [address] [place] [address] [phone] Metal Milling Machine Operator Family Medicine 09/18/24 Sarah Yang PA-C [address] [place], [place] 852551 Metal Milling Machine Operator Family Medicine 09/18/24 Team Status: Inactive Member Role/Relationship Status Dates Dr. Rufino Erickson MD Primary Care Provider Active Start: December 14, 2024 End: December 14, 2024 Dr. Rufino Erickson MD Referring Provider Active Start: December 14, 2024 End: December 14, 2024 Mónica HANSON, PA Attending Provider Active Start: December 14, 2024 End: December 14, 2024 Case Consultant Relationship Specialty Start Date End Date Rufino Erickson MD [facility]0 [place], [place] 512[address] [phone] PCP - General Family Medicine 09/25/20 Lulu Staton APRN.CYLINDER BLOCK MECHANIC [address] [place] [address] [phone] Referring Family Medicine 04/18/24 Lulu Staton APRN.CYLINDER BLOCK MECHANIC [facility]0 [place], [place] 449[address] [phone] Home Care Provider Family Medicine 04/18/24 Lulu Staton, PHI.CYLINDER BLOCK MECHANIC [address] [place] [address] Metal Milling Machine Operator Family Medicine 09/18/24 Sarah Yang PA-C [address] [place], [place] 789135 [phone] Metal Milling Machine Operator Family Medicine 09/18/24 Case Consultant Relationship Specialty Start Date End Date Rufino Erickson MD [address] [place], [place] 80903248 [phone] PCP - General Family Medicine 09/25/20 Lulu Staton APRN.CYLINDER BLOCK MECHANIC [address] [facility] [place] [address] Referring Family Medicine 04/18/24 Lulu Staton APRN.CYLINDER BLOCK MECHANIC [address] [facility] [place] [address] Home Care Provider Family Medicine 04/18/24 Lulu Staton APRN.CYLINDER BLOCK MECHANIC [address] [place] [address], [place] [address] Metal Milling Machine Operator Family Medicine 09/18/24 Sarah Yang PA-C [address] [place] [address], [place] [address] Metal Milling Machine Operator Family Medicine 09/18/24 Case Consultant Relationship Specialty [place] [address] [place] [address], [place] [address] PCP - General Family Medicine 09/25/20 Lulu Staton APRN.CYLINDER BLOCK MECHANIC [address] [place] [address], [place] [address] Referring Family Medicine 04/18/24 Lulu Staton APRN.CYLINDER BLOCK MECHANIC [address] [place] [address], [place] [address] Home Care Provider Family Medicine 04/18/24 Lulu Staton APRN.CYLINDER BLOCK MECHANIC [facility] [place] [address] Metal Milling Machine Operator Family Medicine 09/18/24 Sarah Yang PA-C [facility]0 [facility] [place] [address] Metal Milling Machine Operator Family Medicine 09/18/24 Team Status: Active Member Role/Relationship Status Dates Dr. Rufino Erickson MD Primary care physician Active Team Status: Inactive Member Role/Relationship Status Dates Dr. Rufino Erickson MD Primary care physician Active Start: October 23, 2024 End: October 23, 2024 Dr. Michael Sagastume MD Attending physician Active Start: October 23, 2024 End: October 23, 2024 Dr. Michael Sagastume MD Emergency Department Physician Ac tive Start: October 23, 2024 End: October 23, 2024 Team Status: Inactive Member Role/Relationship Status Dates Dr. Rufino Erickson MD Primary care physician Active Start: October 26, 2024 End: October 26, 2024 Dr. Rufino Erickson MD Referring Provider Active Start: October 26, 2024 End: October 26, 2024 Mónica HANSON PA Attending physician Active Start: October 26, 2024 End: October 26, 2024 Team Status: Active Member Role/Relationship Status Dates Dr. Rufino Erickson MD Primary care physician Active Start: October 31, 2024 Dr. El Choi MD Attending physician Active Start: October 31, 2024 Mónica HANSON PA Referring Provider Active Start: October 31, 2024 Team Status: Active Member Role/Relationship Status Dates Dr. Rufino Erickson MD Primary care physician Active Start: October 31, 2024 Mónica HANSON PA Attending physician Active Start: October 31, 2024 Mónica HANSON PA Referring Provider Active Start: October 31, 2024 Team Status: Inactive Member Role/Relationship Status Dates Dr. Rufino Erickson MD Primary care physician Active Start: November 20, 2024 End: November 20, 2024 Dr. Rufino Erickson MD Referring Provider Active Start: November 20, 2024 End: November 20, 2024 Dr. Ramu Aguilar MD Attending physician Active Start: November 20, 2024 End: November 20, 2024 Team Status: Inactive Member Role/Relationship Status Dates Dr. Rufino Erickson MD Primary care physician Active Start: December 07, 2024 End: December 07, 2024 Dr. Rufino Erickson MD Referring Provider Active Start: December 07, 2024 End: December 07, 2024 MARGIE Simon Attending physician Active Start: December 07, 2024 End: December 07, 2024 Team Status: Inactive Member Role/Relationship Status Dates Dr. Rufino Erickson MD Primary care physician Active Start: December 14, 2024 End: December 14, 2024 Dr. Rufino Erickson MD Referring Provider Active Start: December 14, 2024 End: December 14, 2024 MARGIE Simon Attending physician Active Start: December 14, 2024 End: December 14, 2024 Team Status: Inactive Member Role/Relationship Status Dates Dr. Rufino Erickson MD Primary care physician Active Start: January 11, 2025 End: January 11, 2025 Dr. Rufino Erickson MD Referring Provider Active Start: January 11, 2025 End: January 11, 2025 UBALDO Wade Attending physician Active Start: January 11, 2025 End: January 11, 2025 Team Status: Active Member Role/Relationship Status Dates Dr. Rufino Erickson MD Primary care physician Active Start: January 12, 2025 UBALDO Wade Attending physician Active Start: January 12, 2025 UBALDO Wade Referring Provider Active Start: January 12, 2025 Team Status: Inactive Member Role/Relationship Status Dates Dr. Rufino Erickson MD Primary care physician Active Start: January 16, 2025 End: January 16, 2025 Dr. Rufino Erickson MD Referring Provider Active Start: January 16, 2025 End: January 16, 2025 Dr. Soumya Javier MD Attending physician Active Start: January 16, 2025 End: January 16, 2025 Goals (unrecognized section and content) Goals may be documented in a n alternate sectionGoals may be documented in an alternate sectionGoals may be documented in an alternate sectionGoals may be documented in an alternate sectionGoals may be documented in an alternate sectionGoals may be documented in an alternate section FOR RECORDS PERTAINING TO PATIENTS WHO ARE OR HAVE BEEN ENROLLED IN A CHEMICAL DEPENDENCY/SUBSTANCEABUSE PROGRAM, SOME INFORMATION MAY BE OMITTED. This clinical summary was aggregated from multiple sources. Caution should be exercised in using it in the provision of clinical care. This summary normalizes information from multiple sources, and as a consequence, information in this document may materially change the coding, format and clinical context of patient data. In addition, data may be omitted in some cases. CLINICAL DECISIONS SHOULD BE BASED ON THE PRIMARY CLINICAL RECORDS. [employer] [facility]. provides no warranty or guarantee of the accuracy or completeness of information in this document.
--- NOTE | 2025-01-19 19:19 | EKG12_ITS ---
Test Reason : DYSRHYTHMIA Blood Pressure : */* mmHG Vent. Rate : 62 BPM Atrial Rate : 62 BPM P-R Int : 178 ms QRS Dur : 136 ms QT Int : 476 ms P-R-T Axes : 74 27 -27 degrees QTcB Int : 483 ms Normal sinus rhythm Right bundle branch block Inferior infarct , age undetermined Abnormal ECG Confirmed by MICHELLE MARTE, BRENTON ([id number]), editorial specialist SAMANTA SHARPE ([id number]) on 01/22/2025 6:30:33 AM Referred By: Confirmed By: BRENTON MARTINEZ MD
--- NOTE | 2025-01-19 19:20 | EX.ED.DYSGE1 ---
HPI History of Present Illness Chief Complaint: Weakness Informant: patient and family (Patient lives with her son. He is here with her helping with a history.) Onset/Context/Timing Onset: Weeks Context: Gradual Onset Current Severity: Mild Maximum Severity: Mild Narrative Narrative: A 9-year-old female history of dementia, A-fib on Eliquis with prior stroke. Brought in today by her son. States she just not doing as well at home and is at [facility]. She had generalized weakness and decreased oral intake for several weeks. No vomiting. No fever. Mild diarrhea. No dysuria. Prior similar symptoms: Yes Recent Illness/Hospitalization: No [facility] Medical History Multiple falls Pseudothrombocytopenia History of heart attack Hepatitis Dementia without behavioral disturbance 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 Bilateral knee pain Balance disorder Defecation symptom A-fib Hyperglycemia, unspecified Essential (primary) hypertension Dysphagia, oropharyngeal phase Need for assistance with personal care Difficulty in walking, not elsewhere classified Muscle wasting and atrophy, not elsewhere classified, right lower leg 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 artery Chronic cough Chronic diarrhea Vitamin D deficiency Anticoagulant long-term use Salas's palsy COVID-19 (03/2021) Obesity Right bundle branch block (RBBB) Hyperlipidemia Prediabetes Paroxysmal atrial fibrillation Essential hypertension Osteopenia History of hepatitis Osteoarthritis Home Medications ?Medication ?Instructions ?Recorded ?Last Taken ?Type multivitamin 1 tab PO DAILY supplement 10/10/20 01/18/25 History apixaban 5 mg tablet (Eliquis) 5 mg PO BID AFIB 30 days #60 tabs 04/20/24 01/19/25 Rx atorvastatin 40 mg tablet 40 mg PO QHS cholesterol 30 days 04/20/24 04/19/24 Rx #30 tabs acetaminophen 500 mg tablet 1,000 mg (2 x 500 mg) PO Q6H PRN 05/02/24 01/19/25 Rx Pain Score 1-10 #1 TAB melatonin 3 mg tablet 3 mg PO QHS PRN Insomnia #1 TAB 05/02/24 Unknown Rx donepezil 10 mg tablet 10 mg PO DAILY 10/23/24 01/18/25 History amiodarone 200 mg tablet 200 mg PO QDAY #30 tabs 11/29/24 01/19/25 Rx loperamide 2 mg capsule 2 mg PO Q6H PRN diarrhea 01/01/25 Unknown History trazodone 50 mg tablet 25 mg PO QHS 01/16/25 Unknown History vibegron 75 mg tablet (Gemtesa) 75 mg PO DAILY 01/19/25 Unknown History Allergy/AdvReac Type Severity Reaction Status Date / Time propoxyphene (From Allergy Unknown unknown Verified 01/19/25 18:38 Darvocet-N) Sulfa (Sulfonamide Allergy Unknown unknown Verified 01/19/25 18:38 Antibiotics) Family History Mother Heart disease Father Heart disease Sister Heart disease Breast cancer Aunt Breast cancer Diabetes Grandmother Cancer stomach Surgical History History of tubal ligation History of bilateral cataract extraction History of eyelid surgery 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 housing: apartment Smoking Status: Never smoker alcohol intake: never substance use type: does not use caffeine: Yes Type: coffee Number of servings: 1 ROS ROS ED ROS Narrative Generalized weakness. Constitutional Constitutional ED: Denies chills or fever(s) Eyes Eyes: Denies blurry vision ENT ENT ED: Denies ear pain Cardiovascular Cardiovascular: Denies chest pain Respiratory/Chest Respiratory/Chest: Denies dyspnea Gastrointestinal Gastrointestinal: Denies abdominal pain Genitourinary Genitourinary ED: Denies dysuria or hematuria Musculoskeletal Musculoskeletal: Denies arthralgias Integumentary Denies abscess Neurologic Neurologic: Denies headache(s) Psychiatric Psychiatric: Denies anxiety Endocrine Endocrinology: Denies cold intolerance Hematologic/Lymphatic Hematologic/Lymphatic: Reports none Allergic/Immunologic Allergic/Immunologic ED: Denies mouth swelling, tongue swelling or urticaria EXAM Physical Exam Narrative Exam Narrative: 89-year-old female sitting upright in bed. Vital signs stable afebrile. Pulse ox 94% on room air no hypoxia. H EENT exam pupils round reactive light. Moist with membranes. No signs of trauma to her face or scalp. Nontender no bruising. C-spine nontender trachea midline. Back nontender. Lungs clear to auscultation bilaterally. Heart regular rate about 70 no murmur. Chest wall ribs nontender. Abdomen soft nontender. Moving all 4 extremities. Normal phlebotomy tech strength. Normal dorsi plantarflexion. Neurologically she is awake. She is alert. She has some dementia. She is moving all 4 extremities. There is no focal motor weakness. Const Vital Signs: 01/19/25 18:38 01/19/25 18:57 01/19/25 19:37 Temperature 98.1 F Temperature Source Temporal Pulse Rate 68 64 Respiratory Rate 16 15 Respiratory Pattern Normal Blood Pressure 106/83 H 164/83 H Blood Pressure Mean 90 110 Pulse Ox 94 94 Oxygen Delivery Method Room Air Room Air 01/19/25 20:00 01/19/25 21:00 01/19/25 22:00 Temperature Temperature Source Pulse Rate 63 62 64 Respiratory Rate 19 H 14 Respiratory Pattern Blood Pressure 104/43 L 129/56 H 116/55 L Blood Pressure Mean 63 80 75 Pulse Ox 94 94 93 Oxygen Delivery Method Room Air Room Air Positive well nourished and well developed; Negative for cachectic, contractures or unkempt General Appearance ED: well developed and NAD; Negative for unkempt, cachectic, contractures, cyanotic, diaphoretic or pallor Nutritional Appearance: Negative for cachectic HEENT Reports moist mucous membranes Negative for trauma or tenderness Eyes PERRL and EOMs intact bilaterally Neck no lymphadenopathy, supple and no JVD Chest Wall inspection of chest normal and palpation of chest normal Resp normal respiratory effort and clear to auscultation bilaterally Cardio regular rate, regular rhythm, S1 normal heart sound, S2 normal heart sound and no murmurs GI normal to inspection, nondistended, normoactive bowel sounds, non-tender, non-distended and no masses Auscultation: normoactive bowel sounds Palpation: soft; Negative for tender or guarding Back/Spine no CVA tenderness General Back: Negative for CVA tenderness Cervical Spine: Negative for cervical spine tenderness Thoracic Spine / Upper Back: Negative for thoracic spinal tenderness or paraspinal muscle tenderness Lumbar Spine / Lower Back: Negative for lumbar spinal tenderness Extremity normal to inspection General Extremety ED: Negative for edema or tenderness General Extremity: Negative for edema Neuro CN's II-XII intact bilaterally Neuro Narrative: Awake and alert. Dementia with mild confusion. Sensorium / Orientation: alert Motor Exam: strength 5/5 throughout Psych mental status grossly normal Appearance: Negative for unkempt Attitude: No agitated Mood & Affect: Negative for depressed, anxious or tearful Skin no rashes or lesions noted, no wounds and skin turgor normal General Skin Exam: elasticity normal; Negative for jaundice or pallor Lesions: No lesion noted Rashes: No rashes noted Trauma: Negative for abrasion Wounds: Negative for wounds noted MDM MDM MDM Narrative Medical decision making narrative: 89-year-old female generalized weakness with decreased oral intake with a history of dementia and prior stroke. Clinical exam is benign. Check screening labs. This could be advancing dementia, failure to thrive versus infectious etiology. Repeat exam patient is doing well at 10:48 PM. She and I and her son at bedside went over her test results. History & Record Review Discussion w/independent historian: Patient and Family Additional record(s) reviewed:: Prior inpatient record, Prior outpatient record, Prior ED visit and Prior labs Lab Data Attestation: I reviewed the patient's lab results. Lab results narrative: CBC shows a white count 3.9 H&H of 12 and 37. Platelets too numerous to count. Electrolytes show gap at 9. Normal BUN and creatinine. Glucose 139. UA normal. No white or red cells. No bacteria or nitrites. Chest x-ray unremarkable. Chest x-ray unremarkable. Labs: Laboratory Results - last 24 hr 01/19/25 01/19/25 19:00 20:31 WBC 3.9 L RBC 3.99 L Hgb 12.2 Hct 37.0 MCV 92.7 MCH 30.6 MCHC 33.0 RDW Std Deviation 43.7 RDW Coeff of Tanner 12.9 Plt Count TNP MPV TNP Immature Gran % (Auto) 0.300 Neut % (Auto) 34.4 L Lymph % (Auto) 48.8 H [place] % (Auto) 16.2 H Eos % (Auto) 0.0 Baso % (Auto) 0.3 Absolute Neuts (auto) 1.3 L Absolute Lymphs (auto) 1.90 Nucleated RBC % 0 Differential Comment SCANNED Platelet Estimate SLT DEC Sodium 137 Potassium 3.7 Chloride 97 L Carbon Dioxide 30.8 Anion Gap 9 BUN 9 Creatinine 0.76 Estim Creat Clear Calc 40.99 L Est GFR (MDRD) Non-Af 75 BUN/Creatinine Ratio 11.4 Glucose 139 H Calcium 8.9 Urine Color Yellow Urine Clarity Clear Urine pH 6.5 Ur Specific [place] 1.015 Urine Protein 30 H Urine Glucose (UA) Normal Urine Ketones Negative Urine Occult Blood Negative Urine Nitrite Negative Urine Bilirubin Negative Urine Urobilinogen 1 H Ur Leukocyte Esterase Negative Urine RBC 0-5 SEEN Urine WBC 0-5 SEEN Ur Squamous Epith Cells 0-5 SEEN Urine Bacteria 0 SEEN Urine Mucus 0 SEEN Radiography Chest X-Ray - ED: 1 View, Read by ED Physician, Lungs, Mediastinum, Bony Structures, No Acute Disease and Chronic Changes Diagnostic Testing: Clinical Impression(s) from Imaging Studies Chest X-Ray 01/19/25 20:30 IMPRESSION: No acute pulmonary process Reading Location: [facility] Chest x-ray, portable, single view interpreted by myself and the radiologist shows no acute abnormality. Normal cardiac silhouette. Normal mediastinum. No pneumonia no effusions. Rhythm Strip Rhythm Strip: Sinus Rhythm Rate: 62 Ectopy: None EKG Initial EKG: Attestation: I personally reviewed and interpreted this EKG as follows: Interpretation: Sinus Rhythm, No Acute Injury Pattern and RBBB Comments: Normal sinus rhythm rate of 62 no acute signs of OK or ischemia. Right bundle branch block. Discharge Plan Triage Chief Complaint: Weakness ED Provider: Michael Sagastume Dx/Rx/DC Orders Prescriptions: No Action multivitamin Tablet 1 tab PO DAILY Calcium Antacid 300 mg (750 mg) tablet,chewable 300 mg PO BID loperamide 2 mg capsule 2 mg PO Q6H PRN cholecalciferol (vitamin D3) 50 mcg (2,000 unit) capsule 50 mcg PO QDAY trazodone 50 mg tablet 25 mg PO QHS atorvastatin 40 mg Tablet 40 mg PO QHS 30 Days Qty: 30 0RF Eliquis 5 mg Tablet 5 mg PO BID 30 Days Qty: 60 0RF acetaminophen 500 mg Tablet 1,000 mg PO Q6H PRN (Reason: Pain Score 1-10) Qty: 1 0RF melatonin 3 mg Tablet 3 mg PO QHS PRN (Reason: Insomnia) Qty: 1 0RF donepezil 10 mg tablet 10 mg PO DAILY amiodarone 200 mg tablet 200 mg PO QDAY Qty: 30 11RF Primary Care Provider: Rufino Ortega Referrals: Rufino Ortega MD [Primary Care Provider, Family Practice] Print Language: Gabonese
[2025-01-19 19:37] VITALS: BP 164/83; PULSE 64; RESP 15; O2SAT 94
[2025-01-19 19:57] LABS: Hematocrit 37.0 % (37-47); Hemoglobin 12.2 g/dL (12.0-15.0); Immature Granulocytes Count 0.010 X10^3/uL (0.0-0.0); Mean Corp Hgb Conc 33.0 g/dL (32-36); Mean Corpuscular Volume 92.7 fL (81-99); NRBC Flagged by Analyzer 0 % (0-5); POSITIVE COUNT YES; RBC Distribution Width CV 12.9 % (11.6-14.6); RBC Distribution Width SD 43.7 fl (35.1-43.9); Red Blood Count 3.99 M/mm3 (4.2-5.4); White Blood Count 3.9 K/mm3 (4.4-11.0)
[2025-01-19 20:00] VITALS: BP 104/43; PULSE 63; RESP 19; O2SAT 94
[2025-01-19 20:29] LABS: Anion Gap 9 (5-15); BUN 9 mg/dL (4-19); BUN/Creat Ratio 11.4 RATIO (10-20); Calcium,Total 8.9 mg/dL (7.6-11.0); Carbon Dioxide 30.8 mmol/L (21.0-32.0); Chloride 97 mmol/L (98-108); Estimated Creatinine Clearance 40.99 ml/min (50-250); Glucose 139 mg/dL (70-99); Potassium 3.7 mmol/L (3.3-5.1)
--- NOTE | 2025-01-19 20:30 | RAD_ITS ---
PROCEDURE: CHEST 1 VIEW (PORTABLE) 01/19/2025 REASON FOR EXAM: WEAKNESS TECHNIQUE: Frontal view of the chest. COMPARISON: 10/23/2024 FINDINGS: Hardware: EKG leads overlie the chest Heart: The heart size is normal. Lungs: Chronic interstitial changes, no superimposed acute pulmonary process Bones: Degenerative bony changes RAD/Chest 1 View (Portable) IMPRESSION: No acute pulmonary process Reading Location: [id number]
[2025-01-19 20:40] LABS: Mucous, Urine 0 SEEN /hpf (<or=2+)
[2025-01-19 20:47] LABS: Color, Urine Yellow (Yellow); Glucose, Dipstick Normal (Normal); Ketone-Dipstick Negative (Negative); Leukocyte Esterase-Dipstick Negative /ul (Negative); Nitrite-Dipstick Negative (Negative); Occult Blood-Urine Negative /ul (Negative); Protein-Dipstick 30 mg/dl (Negative); Specific Gravity, Urine 1.015 (1.002-1.030); Urine Bilirubin Dipstick Negative (Negative)
[2025-01-19 21:00] VITALS: BP 129/56; PULSE 62; O2SAT 94
[2025-01-19 21:24] LABS: Red Blood Cells-Urine 0-5 SEEN /hpf (0-5); Squamous Epithelial Cells - UA 0-5 SEEN /hpf (5-10)
[2025-01-19 22:00] VITALS: BP 116/55; PULSE 64; RESP 14; O2SAT 93
[2025-01-19 22:07] LABS: Differential Indicated SCAN CRITERIA MET
[2025-01-19 22:09] LABS: Differential Comment SCANNED
[2025-01-19 23:00] VITALS: BP 127/7; BP 127/75; PULSE 61; PULSE 64; RESP 18; RESP 20; TEMP 37.1; O2SAT 94; O2SAT 97
--- NOTE | 2025-01-19 23:02 | PCM.HP.STD ---
HPI - General General Date of Admission: 01/19/25 Date of Service: 01/19/25 Chief Complaint: Debility, weakness, poor intake, adult FTT. HPI Narrative The patient is an 89 y/o F w/ PMHx: Obesity, CKD stage II per GFR trending, Dementia unclear extent without behavioral disturbance history per chart report, PAF, HTN, HLD, Hx CVA with chronic oropharyngeal dysphagia and left-sided hemiplegia although improved from initial onset, Prediabetes who presents to the [facility] ED on 01/19/2025 with history of currently living with her son with worsening generalized weakness and fatigue with decreased oral intake over the last several weeks also with noted mild loose stools with no other URI type symptoms or dysuria but significant failure to thrive prompting son to bring her in for evaluation. Son notes that she has more frequent falls. She was in SNF within the last year and actually enjoyed her time. Patient and son do report that the stools have been loose for some time and she has had workup outpatient which has been unremarkable. She has improved since her stroke and has some difficulty with weakness to the left side but it is notably better than initially. Workup in the ED included T98.1, heart rate 68, BP 106/83, respiratory rate 16, 94% on room air with most recent repeat vitals heart rate 64, BP 116/55, respiratory rate 14, 93% on room air, CBC with WC 3.9, hemoglobin 12.2, platelet count not resulted secondary to clumping with ANC 1.3, BMP with chloride 97, BUN/creatinine 9/0.76, GFR 75, glucose 139, urinalysis unremarkable, chest x-ray with no acute cardiopulmonary findings, EKG with sinus rhythm with no acute evidence of ischemia with right bundle branch block. 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 artery Chronic cough Chronic diarrhea Vitamin D deficiency Anticoagulant long-term use Salas's palsy COVID-19 (03/2021) Obesity Right bundle branch block (RBBB) Hyperlipidemia Prediabetes Paroxysmal atrial fibrillation Essential hypertension Osteopenia History of hepatitis Osteoarthritis Home Medications ?Medication ?Instructions ?Recorded ?Last Taken ?Type multivitamin 1 tab PO DAILY supplement 10/10/20 01/18/25 History apixaban 5 mg tablet (Eliquis) 5 mg PO BID AFIB 30 days #60 tabs 04/20/24 01/19/25 Rx atorvastatin 40 mg tablet 40 mg PO QHS cholesterol 30 days 04/20/24 04/19/24 Rx #30 tabs acetaminophen 500 mg tablet 1,000 mg (2 x 500 mg) PO Q6H PRN 05/02/24 01/19/25 Rx Pain Score 1-10 #1 TAB melatonin 3 mg tablet 3 mg PO QHS PRN Insomnia #1 TAB 05/02/24 Unknown Rx donepezil 10 mg tablet 10 mg PO DAILY 10/23/24 01/18/25 History amiodarone 200 mg tablet 200 mg PO QDAY #30 tabs 11/29/24 01/19/25 Rx loperamide 2 mg capsule 2 mg PO Q6H PRN diarrhea 01/01/25 Unknown History trazodone 50 mg tablet 25 mg PO QHS 01/16/25 Unknown History vibegron 75 mg tablet (Gemtesa) 75 mg PO DAILY 01/19/25 Unknown History Allergy/AdvReac Type Severity Reaction Status Date / Time propoxyphene (From Allergy Unknown unknown Verified 01/19/25 18:38 Darvocet-N) Sulfa (Sulfonamide Allergy Unknown unknown Verified 01/19/25 18:38 Antibiotics) Family History Mother Heart disease Father Heart disease Sister Heart disease Breast cancer Aunt Breast cancer Diabetes Grandmother Cancer stomach Surgical History History of tubal ligation History of bilateral cataract extraction History of eyelid surgery 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 housing: apartment Smoking Status: Never smoker alcohol intake: never substance use type: does not use caffeine: Yes Type: coffee Number of servings: 1 ROS ROS Narrative Admission Review of Systems: CONSTITUTIONAL: No weight loss, fever, chills, + weakness or fatigue. HEENT: Eyes: No visual loss, blurred vision, double vision or yellow sclerae. Ears, Nose, Throat: No hearing loss, sneezing, congestion, runny nose or sore throat. SKIN: No rash or itching, lesions, wounds except + occasional stage ecchymoses, abrasion. CARDIOVASCULAR: No chest pain, chest pressure or chest discomfort, palpitations, edema, orthopnea, syncopal events. RESPIRATORY: No shortness of breath, cough or sputum, wheezing, hemoptysis. GASTROINTESTINAL: + Intermittent loose stools, poor appetite/anorexia. No nausea, vomiting, abdominal pain, constipation, melena, BRBPR. GENITOURINARY: No dysuria, frequency, urgency or retention. NEUROLOGICAL: + Underlying dementia with memory impairment with no behavioral disturbance history per chart report, frequent falls, history of previous stroke with chronic oropharyngeal dysphagia and left-sided hemiplegia although significantly improved. No headache, dizziness, syncope, paralysis, change in bowel or bladder control, seizure. MUSCULOSKELETAL: + muscle, back pain, joint pain or stiffness. HEMATOLOGIC: No anemia. + Easy bleeding/bruising. LYMPHATICS: No enlarged nodes. No history of splenectomy. PSYCHIATRIC: No history of depression or anxiety. ENDOCRINOLOGIC: No reports of sweating, cold or heat intolerance. No polyuria or polydipsia. ALLERGIES: No history of asthma, hives, eczema or rhinitis. Vital Signs Vital Signs Vital Signs: 01/19/25 18:38 01/19/25 18:57 01/19/25 19:37 Temperature 98.1 F Temperature Source Temporal Pulse Rate 68 64 Respiratory Rate 16 15 Respiratory Pattern Normal Blood Pressure 106/83 H 164/83 H Blood Pressure Mean 90 110 Pulse Ox 94 94 Oxygen Delivery Method Room Air Room Air 01/19/25 20:00 01/19/25 21:00 01/19/25 22:00 Temperature Temperature Source Pulse Rate 63 62 64 Respiratory Rate 19 H 14 Respiratory Pattern Blood Pressure 104/43 L 129/56 H 116/55 L Blood Pressure Mean 63 80 75 Pulse Ox 94 94 93 Oxygen Delivery Method Room Air Room Air 01/19/25 23:00 Temperature 98.8 F Temperature Source Pulse Rate 61 Respiratory Rate 18 Respiratory Pattern Blood Pressure 127/7 H Blood Pressure Mean 47 Pulse Ox 97 Oxygen Delivery Method Weight Weight: 149 lb 11.102 oz Body Mass Index (BMI) 30.2 Physical Exam Narrative Physical Examination: General: Awake, alert, oriented to self, place and recent events, remains cooperative, seated upright in ED bed, fatigued, does actively report that it is best if she transitions to a skilled facility at this time given her fall history recently. Skin: Normal color, normal turgor, no icterus, no cyanosis except occasional stage ecchymoses, abrasion. HEENT: AT/NC, EOMI, PERRLA, mildly dry MM, no carotid bruits or JVD noted. Lungs: Mildly diminished, greater bases, appropriate effort, no appreciated rales, ronchi or wheezing. Heart: Regular rate and rhythm; no gallop, rub audible. Abdomen: Soft, NTTP, ND, hyperactive BS, no markedly HSM. Extremities: No cyanosis, no clubbing, no significant distal edema. Neurological: Patient awake, alert, oriented as noted, cognitive function decreased baseline with underlying dementia but currently appears baseline intact, pupils equally reactive to light and accommodation, cranial nerves grossly normal, moving all 4 extremities, no focal deficits, strength moderately to severely globally decreased. Psychiatric: Affect appears fatigued, no acute evidence of depressive or anxiety feelings. Results Lab / Micro Data 01/19/25 19:00 01/19/25 19:00 Labs: Laboratory Results - last 24 hr 01/19/25 19:00: WBC 3.9 L, RBC 3.99 L, Hgb 12.2, Hct 37.0, MCV 92.7, MCH 30.6, MCHC 33.0, RDW Std Deviation 43.7, RDW Coeff of Tanner 12.9, Plt Count TNP, MPV TNP, Immature Gran % (Auto) 0.300, Neut % (Auto) 34.4 L, Lymph % (Auto) 48.8 H, [place] % (Auto) 16.2 H, Eos % (Auto) 0.0, Baso % (Auto) 0.3, Absolute Neuts (auto) 1.3 L, Absolute Lymphs (auto) 1.90, Nucleated RBC % 0, Differential Comment SCANNED, Platelet Estimate SLT DEC, Sodium 137, Potassium 3.7, Chloride 97 L, Carbon Dioxide 30.8, Anion Gap 9, BUN 9, Creatinine 0.76, Estim Creat Clear Calc 40.99 L, Est GFR (MDRD) Non-Af 75, BUN/Creatinine Ratio 11.4, Glucose 139 H, Calcium 8.9 01/19/25 20:31: Urine Color Yellow, Urine Clarity Clear, Urine pH 6.5, Ur Specific [place] 1.015, Urine Protein 30 H, Urine Glucose (UA) Normal, Urine Ketones Negative, Urine Occult Blood Negative, Urine Nitrite Negative, Urine Bilirubin Negative, Urine Urobilinogen 1 H, Ur Leukocyte Esterase Negative, Urine RBC 0-5 SEEN, Urine WBC 0-5 SEEN, Ur Squamous Epith Cells 0-5 SEEN, Urine Bacteria 0 SEEN, Urine Mucus 0 SEEN Rhythm Strip Rhythm Strip: Sinus Rhythm Rate: 62 Ectopy: None Imaging Radiology Impression Chest X-Ray 01/19/25 20:30 IMPRESSION: No acute pulmonary process Reading Location: [id number] Assessment & Plan Assessment/Plan (1) Adult failure to thrive: PLAN: Plan The patient is an 89 y/o F w/ PMHx: Obesity, CKD stage II per GFR trending, Dementia unclear extent without behavioral disturbance history per chart report, PAF, HTN, HLD, Hx CVA with chronic oropharyngeal dysphagia and left-sided hemiplegia although improved from initial onset, Prediabetes who presents to the [facility] ED on 01/19/2025 with history of currently living with her son with worsening generalized weakness and fatigue with decreased oral intake over the last several weeks also with noted mild loose stools with no other URI type symptoms or dysuria but significant failure to thrive prompting son to bring her in for evaluation. #1. Debility, weakness, adult failure to thrive with increasingly frequent falls, complicated by underlying dementia without behavioral disturbance history per chart report, unclear specific type of dimension or extent suspected likely advancing of her underlying dementia process, but uncertain: Will admit patient to medical surgical floor, maintain on fall precautions, if any recurrent loose stools concerning will obtain C. difficile and enteric pathogen to be safe, nutrition will be consulted for recommendations, will judiciously hydrate, procalcitonin requested, repeat CBC, CMP in a.m. as well as magnesium and phosphorus, PT/OT/case management consulted for discharge planning with likely skilled facility placement needs. #2. Dementia of unclear type, extent without behavioral disturbance history per chart report: Complicates presentation, maintain on fall and aspiration precautions, will continue patient on donepezil regimen, PT/OT/case management consulted for discharge planning with at this time expected skilled facility placement needs. #3. Hypertension: Noted history per chart, BP not markedly elevated, not on any regimen per current list but clarified to be certain, PRN hydralazine. #4. Hyperlipidemia: Will continue patient on statin therapy. #5. History of CVA: Patient with chronic oropharyngeal dysphagia as well as left-sided hemiparesis, Will continue patient home Eliquis, statin, not on any hypertensive regimen, noted prediabetic history with treatment as noted. PT/OT/case management consult for discharge planning. Will attempt to clarify patient diet if there is any alteration needs and if appropriate involve ST. #6. Prediabetes: Not on regimen per current list, will maintain on ADA diet, accu checks w/ ISS. #7. PAF: Will continue patient home Eliquis regimen as well as amiodarone. #8. Chronic Kidney Disease Stage II per GFR trending: Admission BUN/Cr 9/0.76, GFR 75, baseline renal function primarily 0.6-0.8, repeat BMP in AM. #9. Obesity: Weight loss and lifestyle changes encouraged. #10. DVT prophylaxis: Continue home Eliquis regimen. #11. CODE status: Patient LAN is her son who is present and living will is currently in place. Discussed CODE status at length including difference between FULL code, DNR-CCA and DNR-CC status. Following discussions about the differences in these status, requested DNR-CCA, no intubation status. Advanced Care Planning Face to Face Time: 16 minutes. Charges/Coding Visit Charges Inpatient E&M: 64271 Init Hosp L2 Procedures Hospitalists Procedures: 87099 Advncd Care Plan 30 Min
--- OUTSIDE RECORDS SUMMARY | 2025-01-19 23:13 | XMS RPT_ITS | CCD ---
Author Organization [facility] CliniSyaz Care Team Providers Care Ham Curer Name Role Phone RAMO BARAHONA Unavailable Unavailable [...] Erickson MD A Primary Care Provider Knoble CERTIFIED BENCH JEWELER TECHNICIAN.Lulu CARMONA Unavailable Sarah Yang PA-C Unavailable Yevgeniy RN, Mindi Unavailable [phone] Kenneth CERTIFIED BENCH JEWELER TECHNICIAN.Lulu CARMONA Unavailable Knoble CERTIFIED BENCH JEWELER TECHNICIAN.Lulu CARMONA Unavailable Evgeny PT, Aida Unavailable Kenneth CERTIFIED BENCH JEWELER TECHNICIAN.Lulu CARMONA Unavailable Knoble CERTIFIED BENCH JEWELER TECHNICIAN.Lulu CARMONA Unavailable Sarah Yang PA-C Unavailable Shannon MARTE, Dr. Joy Primary Care Provider Shannon MARTE, Dr. Joy Referring Provider Melisa Burgos Attending Provider Dr. Michael Sagastume MD Emergency Provider [phone] Mónica Kerr Attending Provider [phone] Mitesh MARTE, Dr. Rodriguez Attending Provider Mónica Kerr Referring Provider [phone] Jeff MARTE, Dr. Guallpa Attending Provider LULU STATON Referring Unavailable SHANNON, RUFINO A [...] Unavailable Luis Eduardo, Madhav Chi Consulting Unavailable [facility], [facility] Primary Care Unavailable Sisi Schulte Attending [...] Primary Care Unavailable Sisi Howell Attending Unavailable [facility] Primary Care Unavailable Carter QUEZADA, Kym Attending Unavailable Zain Hernandez Consulting Unavailable Shaheed Burkett Attending Unavailable Jose Diamond Admitting Unavailable [facility], [facility] Primary Care Unavailable Adeli, Amir Consulting [...] Physician Mitesh MARTE, Dr. Rodriguez Attending Physician [phone] Dr. Michael Sagastume MD Emergency Department Physici an Shannon MARTE, Dr. Joy Referring Provider Mónica Kerr Attending Physician Dr. El Choi MD Attending Physician [phone] Mónica Kerr Referring Provider Dr. Ramu Aguilar MD Attending Physician Daniela Mendes Attending Physician Daniela Mendes Referring Provider Dr. Soumya Javier MD Attending Physician Allergies Allergy Classification Reported Allergen(s) Allergy Type Date of Onset Reaction(s) Facility (20 sources) Sulfonamides (Antibiotic); Translations: [SULFA (SULFONAMIDE ANTIBIOTICS)] Propensity to adverse reactions (disorder) 3 Other: See Comments [facility] Repository (20 sources) PROPOXYPHENE N-ACETAMINOPHEN; Translations: [PROPOXYPHENE N-ACETAMINOPHEN] Propensity to adverse reactions (disorder) 3 Unknown [facility] Repository (20 sources) Propoxyphene; Translations: [PROPOXYPHENE] Drug Allergy 3 Unknown [facility] (1 source) Propoxyphene Drug Allergy 5 [facility] Repository Medications Current Medications Medication Drug [...] by mouth every 6 hours as needed. [id number] 200 actuat albuterol 0.09 mg/actuat metered dose [...] 1:00am AFIB Complies with drug therapy Artificial Tear(Ighkf-Dxp-Wwr) 0.1-0.3-0.2 % drops (5 sources) Start: Artificial Tear(Hnmrs-Tgs-Vvo) 0.1-0.3-0.2 % drops Active 2 [facility] OPHTHALMIC [...] Comment on above: Take 1 tablet [facility]. cholecalciferol 0.05 mg oral capsule [...] on above: Take 1 capsule by mo [facility] once daily. diclofenac sodium 0.01 mg/mg [...] on above: Take 1 capsule by mo [facility] two times a day for 10 [...] mg/ml ophthalmic solution (1 source) Plasma Volume Ton Container Shipper, Non-Standardized Chemical Allergen Start: 06-08-2024 End: 01-01-2025 Artificial Tear(Iwzov-Bst-Oj y) 0.1-0.3-0.2 % drops Discontinued 2 NMA OPHTHALMIC 4 to 12 times per day as needed for dry eyes June 08, 2024 1:00am January 01, 2025 8:28am dextromethorphan hydrobromide 1 mg/ml / guaiFENesin 20 mg/ml oral solution (6 sources) Uncompetitive D-ktzixs-F-aspartat e Receptor Antagonist, Sigma-1 Agonist Start: 06-08-2024 [...] daily. docusate sodium 50 mg / sennosides, snf 8.6 mg oral tablet (6 sources) Start: [...] Chemical Allergen Start: 05-02-19 End: 06-08-19 Peg 838-Usvvweyyncpe-Tud cerin (Artificial Tears(Lk-Hobe-Uxnk)) 1-0.2-0.2 % Drops Discontinued 2 NMA EACH [...] directed. 05/19/2021 Discontinued (Course of therapy completed) [place]-3 Fatty Acids (Fish Oil Concentrate) 1,000 mg capsule (6 sources) Start: 1 End: 5 take 1 capsule by mouth once daily [place]-3 Fatty Acids (Fish Oil Concentrate) 1,000 mg [...] charlotte th once daily. vit A-vit C-vit M-vxsg-ctjwbx (EYE VITAMIN AND MINERALS) 7,160-113-100 ciom-rw-dlqz tab (9 sources) vit A-vit C-vit H-esxj-sfrjnb (EYE VITAMIN AND MINERALS) 7,160-113-100 oktb-rm-arfv tab Take by mouth. 0 Active Comment on above: Take by mouth. vit A-vit C-vit F-gmcg-cgqcdm 7,160-113-100 zpkw-eb-bpcg tab (9 sources) End: 3 vit A-vit C-vit H-rwwe-gktrgy 7,160-113-100 acgw-fm-lymd tab Take by mouth. 11/24/2022 Discontinued End: 11-24-2022 vit A-vit C-vit S-ongl-axxdh r 7,160-113-100 axml-ca-wwme tab Take by mouth. 0 11/24/2022 Discontinued vit A-vit C-vit G-ueyo-kvulml 7,160-113-100 eshg-zj-ycob tab Take by mouth. 0 Active Comment [...] sources) Long-term current use of anticoagulant; Translations: [marker delivery (current) use of anticoagulants] 10-23-2024 Episodic Other [...] (20 sources) Patient encounter status; Translations: [Other corporation officer (current) drug therapy] Onset: 05-19-2021 05-19-2021 Episodic Other aftercare (1 source) marker delivery (current) use of anticoagulants; Translations: [halfway (current) use of anticoagulants] Onset: 05-02-2024 Episodic [...] Residual codes; unclassified (20 sources) Power of behavior specialist in existence; Translations: [Other specified health status] [...] lamblia Ag IA Ql (Stl) Negative Negative [facility] Comment on above: Performed at: - [address] [id number] Director: Bob Ring PhD, Phone: [phone] CNTHERAPYon 01-11-2025 CNTHERAPY OT/PT/Speech Visit ( PTWS) KRYSTYNA KHANNA ([id number]) 1935 F Date Time Provider Department 01/11/25 5:15 PM STEVE MANE PTWS Date Time Provider Department Center 01/11/2025 5:15 PM [id number], COLIN PTWS [facility] Reason for Visit: Patient Left Without Being [...] mouth every 6 hours as needed. Normal [facility] Gastroenterology Visit Repor ton 01-11-2025 Gastroenterology Visit Report Normal [facility] CNPN Telephone (FAMPWS) KRYSTYNA KHANNA ([id number]) 1935 F Date Time Provider Department 01/10/25 [facility] During your visit today, we recorded the following information about you: Rolly Gaytan, RN 01/10/2025 1:05 PM Signed This nurse was asked to call son as he scheduled appt with Dr. Erickson on 01/15/25 at 10 am to discuss possible snf placement for patient. Son- Espinoza reports pt has hx of stroke on [place] with left sided weakness, but was able to recover the strength in left side through [facility] rehab stay. Reports pt lives with him, [...] may need to go back to the snf. Espinoza discussed this with a nurse at [facility] who told him there are only 2 [...] only option to be admitted in a snf is to take her to the ER [...] without behavioral disturbance (HCC) [*05/30/2024 Power of behavior specialist for health care on file [Z78.*06/01/2024 Balance disorder [R26.89] 07/05/2024 RBBB [I45.10] 09/27/2024 Vitreous hemorrhage, right eye (HCC) [H43.11] 09/27/2024 Multiple falls [R29.6] 12/11/2024 Primary insomnia [F51.01] 12/11/2024 General weakness [R53.1] 01/02/2025 Encounter Status:Closed by SOPHIE BARBOSA on 01/11/25 [facility] CNTHERAPYon 01-09-2025 CNTHERAPY OT/PT/Speech Visit ( PTWS) KRYSTYNA KHANNA ([id number]) 1935 F Date Time Provider Department 01/09/25 2:15 PM STEVE MANE PTWS Date Time Provider Department [place] 01/09/2025 2:15 PM [id number], COLIN PTWS Dinh Lopez Reason for Visit: [...] by mouth every 6 hours as needed. Customer Service Advisor: Therapy (PT/OT/Speech/Resp) ID: [id number] 01/09/2025 2:51 PM Author: STEVE MANE Signed by STEVE MANE PT on 01/09/2025 at 2:51 PM Document text: Program_ID:[id number] Access Code: [email or web address] URL: [email or web address] Date: 01-09-2025 Prepared By: Steve Mane Program [...] - 2-3 sets - 12-15 reps Normal [facility] THERAPY NTon 01-09-2025 THERAPY NT HNO ID: [id number] Author: STEVE MANE, PT Service: ? Author Type: Physical Therapist Type: Therapy (PT/OT/Speech/Resp) Filed: 01/09/2025 14:51 Note Text: Program_ID:[id number] Access Code: [email or web address] URL: [email or web address] Date: 01-09-2025 Prepared By: Steve Mane Program [...] - 2-3 sets - 12-15 reps Normal [facility] CNOVon 01-05-2025 [facility] KRYSTYNA KHANNA ([id number]) 1935 F Date Time Provider Department 01/05/25 11:40 AM [facility] During your visit today, we recorded [...] and those as below. Extensive Exam: - Zysltggq-py-unp present, providing additional history. - Recent weight [...] w/u needed (more content not included)... Normal [facility] [id number] 01-02-2025 [id number] HNO ID: [id number] Author: STEVE MANE PT Service: ? Author Type: Physical Therapist Type: [id number] Filed: 01/02/2025 13:20 Note Text: [facility] Physical Therapy Plan of Care Certification Patient Name: Krystyna Khanna : 1935 [facility] #: [id number] Date: 01/02/2025 To: Rufino Erickson MD From [...] Goals for Episode of Care: established 01/02/25 [place] in home exercise program. Patient will report [...] Planned: 10 Planned Treatment Interventions: Therapeutic exercise (03896), Neuromuscular re-education (55231), Manual therapy (11062), Therapeutic activities (17987), Self-chcf management (38000), Patient/Family/Caregiver Education, General Conditioning, Gait Training (04008) PLAN FOR NEXT VISIT: Assess adherance to [...] reviewed the treatment plan for Krystyna Khanna, [facility]# [id number] for the period of 01/02/25 -- 02/23/25, established on 01/02/2025. Signature certifies the need for therapy services. Normal [facility] CNTHERAPYon 01-02-2025 CNTHERAPY OT/PT/Speech Visit ( PTWS) HERLINDAKRYSTYNA Chan ([id number]) 1935 F Date Time Provider Department 01/02/25 10:45 AM STEVE MANE PTWS Date Time Provider Department Center 01/02/2025 10:45 AM [id number], COLIN PTWS Dinh Lopez Reason for Visit: [...] by mouth every 6 hours as needed. Customer Service Advisor: Therapy (PT/OT/Speech/Resp) ID: [id number] 01/02/2025 11:35 AM Author: STEVE MANE Signed by STEVE MANE PT on 01/02/2025 at 11:35 AM Document text: Program_ID:[id number] Access Code: [email or web address] URL: [email or web address] Date: 01-02-2025 Prepared By: Steve Mane Program [...] - 2 sets - 10 reps Normal [facility] THERAPY NTon 01-02-2025 THERAPY NT HNO ID: [id number] Author: STEVE MANE PT Service: ? Author Type: Physical Therapist Type: Therapy (PT/OT/Speech/Resp) Filed: 01/02/2025 11:35 Note Text: Program_ID:[id number] Access Code: [email or web address] URL: [email or web address] Date: 01-02-2025 Prepared By: Steve Mane Program [...] - 2 sets - 10 reps Normal [facility] CNPNon 01-01-2025 CNPN Telephone (FAMPWS) KRYSTYNA KHANNA ([id number]) 1935 F Date Time Provider Department 01/01/25 [facility] During your visit today, we recorded the following information about you: Cecelia Raymond MA 01/01/2025 4:31 PM Signed Office received 90 day Physician order forms from [employer] for PCP to sign and review. This has been completed and faxed back to [phone]. Cecelia Raymond MA Allergies As of Date: 01/01/2025 Noted Allergy Reaction DARVOCET A500 (PROPOXYPHENE N-APOLINAR*04/26/2012 16 - Unknown PROPOXYPHENE 07/03/2022 16 - Unknown SULFA (SULFONAMIDE ANTIBIOTICS) 04/26/2012 14 - Other: See Comments Comments: didn't feel right, nervousness Date Reviewed: 12/29/2024 Reviewed by: Antoinette Serrano MA - Fully Assessed Reason for Visit: Forms [913] Cmt: [place] Prescriptions as of 01/01/2025 - benzonatate (TESSALON [...] without behavioral disturbance (HCC) [*05/30/2024 Power of behavior specialist for health care on file [Z78.*06/01/2024 Balance disorder [R26.89] 07/05/2024 RBBB [I45.10] 09/27/2024 Vitreous hemorrhage, right eye (HCC) [H43.11] 09/27/2024 Multiple falls [R29.6] 12/11/2024 Primary insomnia [F51.01] 12/11/2024 Encounter Status:Closed by CECELIA RAYMOND on 01/01/25 Normal [facility] OCCULT BLD EXAM-DIAGon 12-30 OCCULT BLD EXAM-DIAG Positive Abnormal [facility] Comment on above: Performed By: #### O BDX ####[facility] LABCLIA [id number] [place] [address] [place] CBC W Auto Differential pane l (Bld)on 12-29-2024 Basophils (Bld) [#/Vol] NINF [facility] Basophils/100 WBC (Bld) 0.3 % [facility] Differential cell count method Nom (Bld) Auto [facility] Eosinophils (Bld) [#/Vol] NINF [facility] Eosinophils/100 WBC (Bld) 0.0 % [facility] Erythrocyte distribution width (RBC) [Ratio] 12.6 % 11.5 - 15.0 % [facility] Hematocrit (Bld) [Volume fraction] 38.5 % 36.0 - 46.0 % [facility] Hemoglobin (Bld) [Mass/Vol] 12.7 g/dL 11.5 - 15.5 g/dL [facility] Immature granulocytes (Bld) [#/Vol] [facility] Immature granulocytes/100 WBC (Bld) 0.3 % [facility] Lymphocytes (Bld) [#/Vol] 1.92 10*3/uL [facility] Lymphocytes/100 WBC (Bld) 31.9 % [facility] MCH (RBC) [Entitic mass] 31.1 pg 26.0 - 34.0 pg [facility] MCHC (RBC) [Mass/Vol] 33.0 g/dL 30.5 - 36.0 g/dL [facility] MCV (RBC) [Entitic vol] 94.1 fL 80.0 - 100.0 fL [facility] Monocytes (Bld) [#/Vol] 0.81 10*3/uL [facility] Monocytes/100 WBC (Bld) 13.5 % [facility] Neutrophils (Bld) [#/Vol] 3.24 10*3/uL [facility] Neutrophils/100 WBC (Bld) 54.0 % [facility] Nucleated RBC (Bld) [#/Vol] [facility] Nucleated RBC/100 WBC (Bld) [Ratio] 0.0 % /100 WBC [facility] Platelet mean volume (Bld) [Entitic vol] [facility] Comment on above: Unable to Report. Platelets (Bld) [#/Vol] [facility] Comment on above: Platelets Clumped Es timate Low. RBC (Bld) [#/Vol] 4.09 10*6/uL 3.90 - 5.20 m/uL [facility] WBC (Bld) [#/Vol] 6.01 10*3/uL [facility] This is an appended report. These results have been appended to a previously verified report. [facility] Basophils (Bld) [#/Vol] 10*3/uL Normal <0.11 [facility] Comment on above: Order Comment: Speci men Type: BLOOD SPECIMENOrdering Facility: [facility] Address: [address] [place] [address] Performed By: #### 5 7021-8 ####[facility] DINH [facility] [id number] [address]ETBRUNSWICK FHC LABORATORYCLIA [id number] [place] [address] [place] Basophils/100 WBC (Bld) 0.3 % Normal [facility] Comment on above: Order Comment: Speci men Type: BLOOD SPECIMENOrdering Facility: [facility] Address: [address] [place] [address] Performed By: #### 5 7021-8 ####[facility] MILLTOWNCLIA [id number] [address] LABORATORYCLIA [id number] [place] [address] [place] Differential cell count method Nom (Bld) Auto Normal [facility] Comment on above: Order Comment: Speci men Type: BLOOD SPECIMENOrdering Facility: [facility] Address: [address] [place] [address] Performed By: #### 5 7021-8 ####[facility] MILLTOWNCLIA [id number] [address] LABORATORYCLIA [id number] [place] [address] [place] Eosinophils (Bld) [#/Vol] 10*3/uL Normal <0.46 [facility] Comment on above: Order Comment: Speci men Type: BLOOD SPECIMENOrdering Facility: [facility] Address: [address] [place] [address] Performed By: #### 5 7021-8 ####[facility] MILLTOWNCLIA [id number] [address] LABORATORYCLIA [id number] [place] [address] [place] Eosinophils/100 WBC (Bld) 0.0 % Normal [facility] Comment on above: Order Comment: Speci men Type: BLOOD SPECIMENOrdering Facility: [facility] Address: [address] [place] [id number] Performed By: #### 5 7021-8 ####[facility] LULABROWNWSCOTTIELIA [id number] [address] LABORATORYCLIA [id number] [place] [address] [place] Erythrocyte distribution width (RBC) [Ratio] 12.6 % Normal 11.5-15.0 [facility] Comment on above: Order Comment: Speci men Type: BLOOD SPECIMENOrdering Facility: [facility] Address: [address] [place] [address] Performed By: #### 5 7021-8 ####[facility]IANA [id number] [address] LABORATORYIA [id number] [place] [address] [place] Hematocrit (Bld) [Volume fraction] 38.5 % Normal 36.0-46.0 [facility] Comment on above: Order Comment: Speci men Type: BLOOD SPECIMENOrdering Facility: [facility] Address: [address] [place] [address] Performed By: #### 5 7021-8 ####[facility] LULABROWNWSCOTTIELIA [id number] [address] LABORATORYIA [id number] [place] [address] [place] Hemoglobin (Bld) [Mass/Vol] 12.7 g/dL Normal 11.5-15.5 [facility] Comment on above: Order Comment: Speci men Type: BLOOD SPECIMENOrdering Facility: [facility] Address: [address] [place] [place] [id number] Performed By: #### 5 7021-8 ####[facility]ENTERBROWNWSCOTTIELIA [id number] [address] LABORATORYCLIA [id number] [place] [address] [place] Immature granulocytes (Bld) [#/Vol] 10*3/uL Normal <0.10 [facility] Comment on above: Order Comment: Speci men Type: BLOOD SPECIMENOrdering Facility: [facility] Address: [address] [place] [address] Performed By: #### 5 7021-8 ####[facility] MILLTOWNCLIA [id number] [address] LABORATORYCLIA [id number] [place] [address] [place] Immature granulocytes/100 WBC (Bld) 0.3 % Normal [facility] Comment on above: Order Comment: Speci men Type: BLOOD SPECIMENOrdering Facility: [facility] Address: [address] [place] [address] Performed By: #### 5 7021-8 ####[facility] MILLTOWNCLIA [id number] [address] LABORATORYCLIA [id number] [place] [address] [place] Lymphocytes (Bld) [#/Vol] 1.92 10*3/uL Normal 1.00-4.00 [facility] Comment on above: Order Comment: Speci men Type: BLOOD SPECIMENOrdering Facility: [facility] Address: [address] [place] [address] Performed By: #### 5 7021-8 ####[facility] MILLTOWNCLIA [id number] [address] LABORATORYCLIA [id number] [place] [address] [place] Lymphocytes/100 WBC (Bld) 31.9 % Normal [facility] Comment on above: Order Comment: Speci men Type: BLOOD SPECIMENOrdering Facility: [facility] Address: [address] [place] [address] Performed By: #### 5 7021-8 ####[facility] LULAChandrakantNCLIA [id number] [address] LABORATORYCLIA [id number] [place] [address] [place] MCH (RBC) [Entitic mass] 31.1 pg Normal 26.0-34.0 [facility] Comment on above: Order Comment: Speci men Type: BLOOD SPECIMENOrdering Facility: [facility] Address: [address] [place] [address] Performed By: #### 5 7021-8 ####[facility] [id number] [address] LABORATORYCLIA [id number] [place] [address] [place] MCHC (RBC) [Mass/Vol] 33.0 g/dL Normal 30.5-36.0 [facility] Comment on above: Order Comment: Speci men Type: BLOOD SPECIMENOrdering Facility: [facility] Address: [address] [place] [address] Performed By: #### 5 7021-8 ####[facility] [id number] [address] LABORATORYCLIA [id number] [place] [address] [place] MCV (RBC) [Entitic vol] 94.1 fL Normal 80.0-100.0 [facility] Comment on above: Order Comment: Speci men Type: BLOOD SPECIMENOrdering Facility: [facility] Address: [address] [place] [address] Performed By: #### 5 7021-8 ####[facility]ITALNCLIA [id number] [address] LABORATORYCLIA [id number] [place] [address] [place] Monocytes (Bld) [#/Vol] 0.81 10*3/uL Normal <0.87 [facility] Comment on above: Order Comment: Speci men Type: BLOOD SPECIMENOrdering Facility: [facility] Address: [address] [place] [address] Performed By: #### 5 7021-8 ####[facility] DAYTONA BEACHWNCLIA [id number] [address] LABORATORYCLIA [id number] [place] [address] [place] Monocytes/100 WBC (Bld) 13.5 % Normal [facility] Comment on above: Order Comment: Speci men Type: BLOOD SPECIMENOrdering Facility: [facility] Address: [address] [place] [address] Performed By: #### 5 7021-8 ####[facility]TON[facility] BEACHWNCLIA [id number] [address] LABORATORYCLIA [id number] [place] [address] [place] Neutrophils (Bld) [#/Vol] 3.24 10*3/uL Normal 1.45-7.50 [facility] Comment on above: Order Comment: Speci men Type: BLOOD SPECIMENOrdering Facility: [facility] Address: [address] [place] [address] Performed By: #### 5 7021-8 ####[facility] MILLWNCLIA [id number] [address] LABORATORYCLIA [id number] [place] [address] [place] Neutrophils/100 WBC (Bld) 54.0 % Normal [facility] Comment on above: Order Comment: Speci men Type: BLOOD SPECIMENOrdering Facility: [facility] Address: [address] [place] [address] Performed By: #### 5 7021-8 ####[facility]TON[facility] BEACHWCALIA [id number] [address] LABORATORYCLIA [id number] [place] [address] [place] Nucleated RBC (Bld) [#/Vol] 10*3/uL Normal <0.01 [facility] Comment on above: Order Comment: Speci men Type: BLOOD SPECIMENOrdering Facility: [facility] Address: [address] [place] [address] Performed By: #### 5 7021-8 ####[facility] [id number] [address] LABORATORYCLIA [id number] [place] [address] [place] Nucleated RBC/100 WBC (Bld) [Ratio] 0.0 /100 WBC Normal [facility] Comment on above: Order Comment: Speci men Type: BLOOD SPECIMENOrdering Facility: [facility] Address: [address] [place] [address] Performed By: #### 5 7021-8 ####[facility] CAMPUSLIA [id number] [address] LABORATORYCLIA [id number] [place] [address] [place] Platelet mean volume (Bld) [Entitic vol] Normal [facility] Comment on above: Order Comment: Speci men Type: BLOOD SPECIMENOrdering Facility: [facility] Address: [address] [place] [address] Result Comment: Unab le to Report. Performed By: #### 5 7021-8 ####[facility] MILLTOWNCLIA [id number] [address] LABORATORYCLIA [id number] [place] [address] [place] Platelets (Bld) [#/Vol] Normal [facility] Comment on above: Order Comment: Speci men Type: BLOOD SPECIMENOrdering Facility: [facility] Address: [address] [place] [address] Result Comment: Plat elets Clumped Estimate Low. Performed By: #### 5 7021-8 ####[facility] CAMPUSLIA [id number] [address] LABORATORYCLIA [id number] [place] [address] [place] RBC (Bld) [#/Vol] 4.09 10*6/uL Normal 3.90-5.20 [facility] Comment on above: Order Comment: Speci men Type: BLOOD SPECIMENOrdering Facility: [facility] Address: [address] [place] [address] Performed By: #### 5 7021-8 ####[facility]ITAL[facility]CLIA [id number] [address] LABORATORYCLIA [id number] [place] [address] [place] WBC (Bld) [#/Vol] 6.01 10*3/uL Normal 3.70-11.00 [facility] Comment on above: Order Comment: Speci men Type: BLOOD SPECIMENOrdering Facility: [facility] Address: [address] [place] [address] Performed By: #### 5 7021-8 ####[facility]ITALNCLIA [id number] [address] OF [facility] LABORATORYCLIA [id number] [place] [address] [facility] RAFAOVon 12-29-2024 CNOV Office Visit (ISAIAHWS ) KRYSTYNA KHANNA ([id number]) 1935 F Date Time Provider Department 12/29/24 9:40 AM LULU STATON During your visit today, we recorded the following information about you: Pulse Blood pressure 89/minute 101/61 Lulu Staton APRN.DIVISION COMMANDER 12/29/2024 9:51 AM Signed Chief Complaint Patient [...] R09.89 - XR CHEST 2V FRONTAL/LAT Lulu Staton, CERTIFIED [employer]EL[employer] TECHNICIAN.DIVISION COMMANDER [1] Social History Tobacco Use Smoking status: Never (more content not included)... Normal [facility] XR CHEST 2V FRONTAL/LATon XR CHEST [...] tissues: Unremarkable. IMPRESSION: No acute radiographic abnormality. Management Trainee Marketing: BEBETO Transcribe Date/Time: Dec 29 2024 10:43A Dictated by : CLAUDETTE SANTILLAN MD This examination was interpreted and the report reviewed and electronically signed by: CLAUDETTE SANTILLAN MD on Dec 29 2024 10:45AM EST [id number] Normal [facility] XR Chest PA and Lateralon IMPRESSION: No acute radiographic abnormality. Management Trainee Marketing: BEBETO Transcribe Date/Time: Dec 29 2024 10:43A [...] soft tissues: Unremarkable. DIVISION OF RADIOLOGY Provider, [facility] - 12/29/2024 * * *Final Report* * [...] Unremarkable. IMPRESSION IMPRESSION: No acute radiographic abnormality. Management Trainee Marketing: PSCB Transcribe Date/Time: Dec 29 2024 10:43A Dictated by : CLAUDETTE SANTILLAN MD This examination was interpreted and the report reviewed and electronically signed by: CLAUDETTE SANTILLAN MD on Dec 29 2024 10:45AM EST [facility] Radiology Study observation (narrative) [facility] XR Chest PA and LateralOrder ed By: Ccf Provider on 12-29-2024 [facility] Bacteria Ur Culton Bacteria identified Cx Nom (U) ORGANISM ID: 1 10,000 -<50,000 CFU/ml Normal urogenital len Normal [facility] Comment on above: Performed By: #### 6 30-4 ####[facility] LABCLIA [id number] [place] [address] [place] Urinalysis complete panel (U )on 12-12-2024 Bacteria LM.HPF (Urine sed) [#/Area] Negative Normal Negative [facility] Comment on above: Order Comment: Speci men Type: URINE SPECIMENOrdering Facility: [facility] Address: [address] [place] [address] Performed By: #### 2 4356-8 ####[facility] LABIA [id number] [place] [address] [place] Bilirubin Ql (U) 1+ Abnormal Negative [facility] Comment on above: Order Comment: Speci men Type: URINE SPECIMENOrdering Facility: [facility] Address: [address] [place] [address] Result Comment: Sugg est correlation with clinical findings and serum bilirubin if clinically indicated. Performed By: #### 2 4356-8 ####[facility] LABCLIA [id number] [address] [place] Clarity (Unsp spec) Clear Normal Clear [facility] Comment on above: Order Comment: Speci men Type: URINE SPECIMENOrdering Facility: [facility] Address: [address] [place] [address] Performed By: #### 2 4356-8 ####[facility] LABCLIA [id number] [place] [address] [place] Color (U) Dark Yellow Abnormal Yellow [facility] Comment on above: Order Comment: Speci men Type: URINE SPECIMENOrdering Facility: [facility] Address: [address] [place] [address] Performed By: #### 2 4356-8 ####[facility] LABCLIA [id number] [address], [place] [address] [place] Epithelial cells LM.HPF (Urine sed) [#/Area] Few Normal [facility] Comment on above: Order Comment: Speci men Type: URINE SPECIMENOrdering Facility: [facility] Address: [address] [place] [address] Performed By: #### 2 4356-8 ####[facility] LABCLIA [id number] [address] [place] Glucose Test strip (U) [Mass/Vol] Negative Normal Negative [facility] Comment on above: Order Comment: Speci men Type: URINE SPECIMENOrdering Facility: [facility] Address: [address] [place] [address] Performed By: #### 2 4356-8 ####[facility] LABCLIA [id number] [place] [address] [place] Hemoglobin Ql (U) Negative Normal Negative [facility] Comment on above: Order Comment: Speci men Type: URINE SPECIMENOrdering Facility: [facility] Address: [address] [place] [address] Performed By: #### 2 4356-8 ####[facility] LABCLIA [id number] [address], [facility] [place] [place] Hyaline casts (Urine sed) [#/Area] 0 /[LPF] Normal 0 /LPF [facility] Comment on above: Order Comment: Speci men Type: URINE SPECIMENOrdering Facility: [facility] Address: [address] [place] [address] Performed By: #### 2 4356-8 ####[facility] LABCLIA [id number] [address] [place] [address] [place] Ketones Ql (U) Trace Abnormal Negative [facility] Comment on above: Order Comment: Speci men Type: URINE SPECIMENOrdering Facility: [facility] Address: [address] [place] [address] Performed By: #### 2 4356-8 ####[facility] LABCLIA [id number] [place] [address] [place] Leukocyte esterase Test strip Ql (U) Negative Normal Negative [facility] Comment on above: Order Comment: Speci men Type: URINE SPECIMENOrdering Facility: [facility] Address: [address] [place] [address] Performed By: #### 2 4356-8 ####[facility] LABCLIA [id number] [address], [facility] [place] [place] Nitrite Ql (U) Negative Normal Negative [facility] Comment on above: Order Comment: Speci men Type: URINE SPECIMENOrdering Facility: [facility] Address: [address] [place] [address] Performed By: #### 2 4356-8 ####[facility] LABCLIA [id number] [address], [facility] [place] [place] pH (U) 5.0 [pH] Normal 5.0-8.0 [facility] Comment on above: Order Comment: Speci men Type: URINE SPECIMENOrdering Facility: [facility] Address: [address] [place] [address] Performed By: #### 2 4356-8 ####[facility] LABCLIA [id number] [address], [facility] [place] [place] Protein (U) [Mass/Vol] Trace Abnormal Negative [facility] Comment on above: Order Comment: Speci men Type: URINE SPECIMENOrdering Facility: [facility] Address: [address] [place] [address] Performed By: #### 2 4356-8 ####[facility] LABIA [id number] [place] [address] [place] RBC LM.HPF (Urine sed) [#/Area] 0-2 /HPF Normal 0-2 /HPF [facility] Comment on above: Order Comment: Speci men Type: URINE SPECIMENOrdering Facility: [facility] Address: [address] [place] [address] Performed By: #### 2 4356-8 ####[facility] [id number] [place] [address] [place] Specific gravity (U) [Rel density] 1.022 Normal 1.005-1.03 0 [facility] Comment on above: Order Comment: Speci men Type: URINE SPECIMENOrdering Facility: [facility] Address: [address] [place] [address] Performed By: #### 2 4356-8 ####[facility] LABIA [id number] [address] [place] Urobilinogen Ql (U) 0.2 EU/dL Normal 0.2-1.0 EU/dL [facility] Comment on above: Order Comment: Speci men Type: URINE SPECIMENOrdering Facility: [facility] Address: [address] [place] [address] Performed By: #### 2 4356-8 ####[facility] LABIA [id number] [place] [address] [place] WBC LM.HPF (Urine sed) [#/Area] 0-5 /HPF Normal 0-5 /HPF [facility] Comment on above: Order Comment: Speci men Type: URINE SPECIMENOrdering Facility: [facility] Address: [address] [place] [address] Performed By: #### 2 4356-8 ####[facility] LABCLIA [id number] [place] [address] [place] CBC W Auto Differential pane l (Bld)on 12-11-2024 Basophils (Bld) [#/Vol] 10*3/uL Normal <0.11 [facility] Comment on above: Order Comment: Speci men Type: BLOOD SPECIMENOrdering Facility: [facility] Address: [address] [place] [address] Performed By: #### 5 7021-8 ####[facility] LABCLIA [id number] [address], [place] [address] [place] Basophils/100 WBC (Bld) 0.3 % Normal [facility] Comment on above: Order Comment: Speci men Type: BLOOD SPECIMENOrdering Facility: [facility] Address: [address] [place] [address] Performed By: #### 5 7021-8 ####[facility] LABCLIA [id number] [place] [address] [place] Differential cell count method Nom (Bld) Auto Normal [facility] Comment on above: Order Comment: Speci men Type: BLOOD SPECIMENOrdering Facility: [facility] Address: [address] [place] [address] Performed By: #### 5 7021-8 ####[facility] LABCLIA [id number] [address], [facility] [place] [place] Eosinophils (Bld) [#/Vol] 10*3/uL Normal <0.46 [facility] Comment on above: Order Comment: Speci men Type: BLOOD SPECIMENOrdering Facility: [facility] Address: [address] [place] [address] Performed By: #### 5 7021-8 ####[facility] LABCLIA [id number] [address] [place] [address] [place] Eosinophils/100 WBC (Bld) 0.0 % Normal [facility] Comment on above: Order Comment: Speci men Type: BLOOD SPECIMENOrdering Facility: [facility] Address: [address] [place] [address] Performed By: #### 5 7021-8 ####[facility] LABCLIA [id number] [address], [place] [address] [place] Erythrocyte distribution width (RBC) [Ratio] 12.8 % Normal 11.5-15.0 [facility] Comment on above: Order Comment: Speci men Type: BLOOD SPECIMENOrdering Facility: [facility] Address: [address] [place] [address] Performed By: #### 5 7021-8 ####[facility] LABCLIA [id number] [address], [place] [address] [place] Hematocrit (Bld) [Volume fraction] 42.3 % Normal 36.0-46.0 [facility] Comment on above: Order Comment: Speci men Type: BLOOD SPECIMENOrdering Facility: [facility] Address: [address] [place] [address] Performed By: #### 5 7021-8 ####[facility] LABCLIA [id number] [address], [facility] [place] [place] Hemoglobin (Bld) [Mass/Vol] 13.3 g/dL Normal 11.5-15.5 [facility] Comment on above: Order Comment: Speci men Type: BLOOD SPECIMENOrdering Facility: [facility] Address: [address] [place] [address] Performed By: #### 5 7021-8 ####[facility] LABCLIA [id number] [address], [facility] [place] [place] Immature granulocytes (Bld) [#/Vol] 10*3/uL Normal <0.10 [facility] Comment on above: Order Comment: Speci men Type: BLOOD SPECIMENOrdering Facility: [facility] Address: [address] [place] [address] Performed By: #### 5 7021-8 ####[facility] LABCLIA [id number] [place] [address] [place] Immature granulocytes/100 WBC (Bld) 0.1 % Normal [facility] Comment on above: Order Comment: Speci men Type: BLOOD SPECIMENOrdering Facility: [facility] Address: [address] [place] [address] Performed By: #### 5 7021-8 ####[facility] LABCLIA [id number] [place] [address] [place] Lymphocytes (Bld) [#/Vol] 2.98 10*3/uL Normal 1.00-4.00 [facility] Comment on above: Order Comment: Speci men Type: BLOOD SPECIMENOrdering Facility: [facility] Address: [address] [place] [address] Performed By: #### 5 7021-8 ####[facility] LABCLIA [id number] [place] [address] [place] Lymphocytes/100 WBC (Bld) 44.4 % Normal [facility] Comment on above: Order Comment: Speci men Type: BLOOD SPECIMENOrdering Facility: [facility] Address: [address] [place] [address] Performed By: #### 5 7021-8 ####[facility] LABCLIA [id number] [place] [id number] [place] MCH (RBC) [Entitic mass] 30.9 pg Normal 26.0-34.0 [facility] Comment on above: Order Comment: Speci men Type: BLOOD SPECIMENOrdering Facility: [facility] Address: [address] [place] [address] Performed By: #### 5 7021-8 ####[facility] LABCLIA [id number] [place] [address] [place] MCHC (RBC) [Mass/Vol] 31.4 g/dL Normal 30.5-36.0 [facility] Comment on above: Order Comment: Speci men Type: BLOOD SPECIMENOrdering Facility: [facility] Address: [address] [place] [address] Performed By: #### 5 7021-8 ####[facility] LABCLIA [id number] [place] [address] [place] MCV (RBC) [Entitic vol] 98.4 fL Normal 80.0-100.0 [facility] Comment on above: Order Comment: Speci men Type: BLOOD SPECIMENOrdering Facility: [facility] Address: [address] [place] [address] Performed By: #### 5 7021-8 ####[facility] LABCLIA [id number] [place] [address] [place] Monocytes (Bld) [#/Vol] 1.20 10*3/uL High <0.87 [facility] Comment on above: Order Comment: Speci men Type: BLOOD SPECIMENOrdering Facility: [facility] Address: [address] [place] [address] Performed By: #### 5 7021-8 ####[facility] LABIA [id number] [place] [address] [place] Monocytes/100 WBC (Bld) 17.9 % Normal [facility] Comment on above: Order Comment: Speci men Type: BLOOD SPECIMENOrdering Facility: [facility] Address: [address] [place] [address] Performed By: #### 5 7021-8 ####[facility] LABCLIA [id number] [place] [id number] [place] Neutrophils (Bld) [#/Vol] 2.50 10*3/uL Normal 1.45-7.50 [facility] Comment on above: Order Comment: Speci men Type: BLOOD SPECIMENOrdering Facility: [facility] Address: [address] [place] [address] Performed By: #### 5 7021-8 ####[facility] LABCLIA [id number] [place] [address] [place] Neutrophils/100 WBC (Bld) 37.3 % Normal [facility] Comment on above: Order Comment: Speci men Type: BLOOD SPECIMENOrdering Facility: [facility] Address: [address] [place] [address] Performed By: #### 5 7021-8 ####[facility] LABCLIA [id number] [place] [address] [place] Nucleated RBC (Bld) [#/Vol] 10*3/uL Normal <0.01 [facility] Comment on above: Order Comment: Speci men Type: BLOOD SPECIMENOrdering Facility: [facility] Address: [address] [place] [address] Performed By: #### 5 7021-8 ####[facility] LABCLIA [id number] [place] [address] [place] Nucleated RBC/100 WBC (Bld) [Ratio] 0.0 /100 WBC Normal [facility] Comment on above: Order Comment: Speci men Type: BLOOD SPECIMENOrdering Facility: [facility] Address: [address] [place] [address] Performed By: #### 5 7021-8 ####[facility] LABCLIA [id number] [place] [id number] [place] Platelet mean volume (Bld) [Entitic vol] Normal [facility] Comment on above: Order Comment: Speci men Type: BLOOD SPECIMENOrdering Facility: [facility] Address: [address] [place] [address] Result Comment: Unab le to Report. Performed By: #### 5 7021-8 ####[facility] LABCLIA [id number] [place] [address] [place] Platelets (Bld) [#/Vol] Normal [facility] Comment on above: Order Comment: Speci men Type: BLOOD SPECIMENOrdering Facility: [facility] Address: [address] [place] [address] Result Comment: Plat elet count confirmed by manual review of peripheral blood smear. No clot detected.Results checked and verified.Platelets Clumped Estimate Low. Performed By: #### 5 7021-8 ####[facility] [id number] [place] [address] [place] RBC (Bld) [#/Vol] 4.30 10*6/uL Normal 3.90-5.20 [facility] Comment on above: Order Comment: Speci men Type: BLOOD SPECIMENOrdering Facility: [facility] Address: [address] [place] [address] Performed By: #### 5 7021-8 ####[facility] [id number] [place] [address] [place] WBC (Bld) [#/Vol] 6.71 10*3/uL Normal 3.70-11.00 [facility] Comment on above: Order Comment: Speci men Type: BLOOD SPECIMENOrdering Facility: [facility] Address: [address] [place] [address] Performed By: #### 5 7021-8 ####[facility] [id number] [place] [id number] [place] CNOVon 12-11-2024 CNOV Office Visit (FAMPWS ) KRYSTYNA KHANNA ([id number]) 1935 F Date Time Provider Department 12/11/24 [...] She believes she tripped over her phone duct cleaner, which caused the fall. Patient lives with [...] Sister Etelvina (more content not included)... Normal [facility] Comprehensive metabolic 2000 panelon 12-11-2024 Albumin [Mass/Vol] 4.4 g/dL Normal 3.9-4.9 [facility] Comment on above: Order Comment: Speci men Type: BLOOD SPECIMENOrdering Facility: [facility] Address: [address] [place] [address] Performed By: #### 3 016-3, ####[facility] LABCLIA [id number] [place] [address] [place] ALP [Catalytic activity/Vol] 86 U/L Normal 34-123 [facility] Comment on above: Order Comment: Speci men Type: BLOOD SPECIMENOrdering Facility: [facility] Address: [address] [place] [address] Performed By: #### 3 016-3, ####[facility] LABIA [id number] [place] [address] [place] ALT [Catalytic activity/Vol] 9 U/L Normal 7-38 [facility] Comment on above: Order Comment: Speci men Type: BLOOD SPECIMENOrdering Facility: [facility] Address: [address] [place] [address] Performed By: #### 3 016-3, ####[facility] LABCLIA [id number] [place] [id number] [place] Anion gap [Moles/Vol] 13 mmol/L Normal 8-15 [facility] Comment on above: Order Comment: Speci men Type: BLOOD SPECIMENOrdering Facility: [facility] Address: [address] [place], [place] [address] Performed By: #### 3 016-3, ####[facility] LABCLIA [id number] [address] [address] [place] AST [Catalytic activity/Vol] 28 U/L Normal 13-35 [facility] Comment on above: Order Comment: Speci men Type: BLOOD SPECIMENOrdering Facility: [facility] Address: [address] [place] [address] Performed By: #### 3 -3, ####[facility] LABCLIA [id number] [place] [id number] [place] Bilirubin [Mass/Vol] 0.9 mg/dL Normal 0.2-1.3 [facility] Comment on above: Order Comment: Speci men Type: BLOOD SPECIMENOrdering Facility: [facility] Address: [address] [place] [address] Performed By: #### 3 -3, ####[facility] LABCLIA [id number] [place] [address] [place] Calcium [Mass/Vol] 9.6 mg/dL Normal 8.5-10.2 [facility] Comment on above: Order Comment: Speci men Type: BLOOD SPECIMENOrdering Facility: [facility] Address: [address] [place], [place] [address] Performed By: #### 3 016-3, ####[facility] LABIA [id number] [place] [id number] [place] Chloride [Moles/Vol] 99 mmol/L Normal 98-107 [facility] Comment on above: Order Comment: Speci men Type: BLOOD SPECIMENOrdering Facility: [facility] Address: [address] [place], [place] [address] Performed By: #### 3 016-3, 55197-1 ####[facility] LABCLIA [id number] [address] [address] [place] CO2 [Moles/Vol] 27 mmol/L Normal 22-30 [facility] Comment on above: Order Comment: Speci men Type: BLOOD SPECIMENOrdering Facility: [facility] Address: [address] [place] [address] Performed By: #### 3 016-3, 14485-1 ####[facility] LABIA [id number] [place] [id number] [place] Creatinine [Mass/Vol] 0.95 mg/dL Normal 0.58-0.96 [facility] Comment on above: Order Comment: Speci men Type: BLOOD SPECIMENOrdering Facility: [facility] Address: [address] [place] [address] Performed By: #### 3 016-3, 39703-3 ####[facility] [id number] [place] [id number] [place] eGFRcr SerPlBld CKD-EPI 2020 57 mL/min/1.73m??? Low >=60 [facility] Comment on above: Order Comment: Speci men Type: BLOOD SPECIMENOrdering Facility: [facility] Address: [address] [place] [address] Result Comment: Nichelle mated Glomerular Filtration Rate [...] actual GFR. Performed By: #### 3 016-3, 03150-5 ####[facility] LABIA [id number] [address] [address] [place] Glucose [Mass/Vol] 116 mg/dL High 74-99 [facility] Comment on above: Order Comment: Speci men Type: BLOOD SPECIMENOrdering Facility: [facility] Address: [address] [place] [address] Result Comment: The [place] [employer] (ADA) provides guidance for cutoff [...] Standards of Medical Care in Diabetes 2016, [place] [employer]. Diabetes Care. 2016.39(Suppl 1). Performed By: #### 3 016-3, ####[facility] LABCLIA [id number] [place] [address] [place] Potassium [Moles/Vol] 4.0 mmol/L Normal 3.7-5.1 [facility] Comment on above: Order Comment: Speci men Type: BLOOD SPECIMENOrdering Facility: [facility] Address: [address] [place] [address] Performed By: #### 3 016-3, ####[facility] LABIA [id number] [place] [address] [place] Protein [Mass/Vol] 7.3 g/dL Normal 6.3-8.0 [facility] Comment on above: Order Comment: Speci men Type: BLOOD SPECIMENOrdering Facility: [facility] Address: [address] [place] [address] Performed By: #### 3 3, ####[facility] LABCLIA [id number] [place] [id number] [place] Sodium [Moles/Vol] 139 mmol/L Normal 136-144 [facility] Comment on above: Order Comment: Speci men Type: BLOOD SPECIMENOrdering Facility: [facility] Address: [address] [place] [address] Performed By: #### 3 016-3, 97603-8 ####[facility] LABCLIA [id number] [place] [id number] [place] Urea nitrogen [Mass/Vol] 16 mg/dL Normal 7-21 [facility] Comment on above: Order Comment: Speci men Type: BLOOD SPECIMENOrdering Facility: [facility] Address: [address] [place] [address] Performed By: #### 3 016-3, 45801-2 ####[facility] LABIA [id number] [place] [id number] [place] TSH SerPl-aCncon 12-11-2024 TSH Qn 2.670 m[IU]/L Normal 0.270-4.20 0 [facility] Comment on above: Order Comment: Speci men Type: BLOOD SPECIMENOrdering Facility: [facility] Address: [address] [place] [address] Performed By: #### 3 016-3, 38051-3 ####[facility] LABIA [id number] [place] [address] [place] Cardiology Visit Reporton Cardiology Visit Report Normal [facility] Neurology Visit Reporton Neurology Visit Report Normal [facility] XR RIBS 2V AP/OBL LTon 11-03 [...] IMPRESSION: Stable, healing left 8th rib fracture. Management Trainee Marketing: BEBETO Transcribe Date/Time: Nov 10 2024 1:20P Dictated by : JASON ALCARAZ MD This examination was interpreted and the report reviewed and electronically signed by: JASON ALCARAZ MD on Nov 10 2024 1:21PM EST [id number] Normal [facility] Culture, Blood (WB)on 2024 CUB Blood cultures x2, f rom two different sites No growth in 5 days. Normal [facility] Comment on above: Performed By: #### L 100.0100, L501.4021, L300.4310, L500.4050, L503.6005, M200.1000, L300.3900 ####[facility] [address] [place], [place], [address] Cardiology Visit Reporton Cardiology Visit Report Normal [facility] Urine Cultureon 10-24-2024 URC Culture exhibits no growth. Normal [facility] Comment on above: Performed By: #### L 400.0001, M100.2200, M100.678 ####[facility] [address] [place], [address] 12 Lead EKGon 10-23-2024 12 Lead EKG Normal [facility] Absolute lymphocyte countOrd ered By: Michael Sagastume on 10-23-2024 Lymphocytes Auto (Unsp spec) [#/Vol] 1.28 10*3/uL 0.83-4.51 [facility] Absolute neutrophil countOrd ered By: Michael Sagastume on 10-23-2024 Neutrophils (Bld) [#/Vol] 6.7 10*3/uL 2.0-7.7 [facility] Activated partial thrombopla stin time (aPTT) in platelet poor plasma by coagulation aOrdered By: Michael Sagastume on 10-23-2024 aPTT Coag (PPP) [Time] 42.8 s High 24.1-36.2 [facility] Anion gap in Serum or Plasma Ordered By: Michael Sagastume on 10-23-2024 Anion gap [Moles/Vol] 11 mmol/L 5-15 [facility] Automated lymphocyte count a s percentage of total leukocytesOrdered By: Michael Sagastume on 10-23-2024 Lymphocytes/100 WBC Auto (Unsp spec) 12.1 % Low 19-41 [facility] BUN/creatinine ratioOrdered By: Michael Sagastume on 10-23-2024 Urea nitrogen/Creatinine [Mass ratio] 15.8 mg/mg 10-20 [facility] Basophil percentageOrdered B y: Michael Sagastume on 10-23-2024 Basophils/100 WBC (Bld) 0.1 % 0-1 [facility] Bedside Glucoseon 10-23-2024 FINGERSTICK GLU 144 mg/dL High 74-106 [facility] Comment on above: Result Comment: MAINE MERA[facility] OF PATIENT CARE PER NURSING PROTOCOL Performed By: #### L 501.080 ####[facility] [address], [address] Bilirubin Test strip Ql (U)O rdered By: Michael Sagastume on 10-23-2024 Bilirubin Ql (U) Negative Negative [facility] Bilirubin, totalOrdered By: Michael Sagastume on 10-23-2024 Bilirubin [Mass/Vol] 1.15 mg/dL 0.00-1.30 [facility] Blood cultureOrdered By: Rambo Sagastume on 10-23-2024 Bacteria identified Cx Nom (Bld) No growth in 5 days. [facility] Bacteria identified Cx Nom (Bld) No growth in 5 days. [facility] Blood manual differential co mment interpretation (narrative result)Ordered By: Michael Sagastume on 10-23-2024 Manual differential comment Miles (Bld) [Interp] SCANNED [facility] CBC W/Diff, Automatedon PLT EST MOD DEC Normal ADEQ [facility] Comment on above: Performed By: #### L 100.0100, L501.4021, L300.4310, L500.4050, L503.6005, M200.1000, L300.3900 ####[facility] [address] [place], [address] SMEAR COMMENT SCANNED Normal [facility] Comment on above: Performed By: #### L 100.0100, L501.4021, L300.4310, L500.4050, L503.6005, M200.1000, L300.3900 ####[facility] [address] [place], [address] Carbon dioxide, total [Moles /volume] in Central venous bloodOrdered By: Michael Sagastume on 10-23-2024 CO2 [Moles/Vol] 26.4 mmol/L 21.0-32.0 [facility] Chest 1 View (Portable)on Chest 1 View (Portable) Normal [facility] Chloride assayOrdered By: Eliecer Sagastume on 10-23-2024 Chloride [Moles/Vol] 99 mmol/L 98-108 [facility] Comprehensive Metabolic Prof ilon 10-23-2024 Albumin [Mass/Vol] 3.0 g/dL Low 3.4-4.8 [facility] Comment on above: Performed By: #### L 100.0100, L501.4021, L300.4310, L500.4050, L503.6005, M200.1000, L300.3900 ####[facility] [address] [place], [address] Albumin/Globulin [Mass ratio] 0.7 {ratio} Low 0.9-2.4 [facility] Comment on above: Performed By: #### L 100.0100, L501.4021, L300.4310, L500.4050, L503.6005, M200.1000, L300.3900 ####[facility] [address] [place], [address] ALK PHOS 86 U/L Normal 35-104 [facility] Comment on above: Performed By: #### L 100.0100, L501.4021, L300.4310, L500.4050, L503.6005, M200.1000, L300.3900 ####[facility] [address] [place], [address] ALT [Catalytic activity/Vol] 6 U/L Normal <=34 [facility] Comment on above: Performed By: #### L 100.0100, L501.4021, L300.4310, L500.4050, L503.6005, M200.1000, L300.3900 ####[facility] [address] [place], [address] AST [Catalytic activity/Vol] 23 U/L Normal <=31 [facility] Comment on above: Performed By: #### L 100.0100, L501.4021, L300.4310, L500.4050, L503.6005, M200.1000, L300.3900 ####[facility] [address] [place], [address] Bilirubin [Mass/Vol] 1.15 mg/dL Normal 0.00-1.30 [facility] Comment on above: Performed By: #### L 100.0100, L501.4021, L300.4310, L500.4050, L503.6005, M200.1000, L300.3900 ####[facility] [address] [place], [address] BUN/CRE 15.8 RATIO Normal 10-20 [facility] Comment on above: Performed By: #### L 100.0100, L501.4021, L300.4310, L500.4050, L503.6005, M200.1000, L300.3900 ####[facility] [address] [place], [address] Calcium [Mass/Vol] 9.2 mg/dL Normal 7.6-11.0 [facility] Comment on above: Performed By: #### L 100.0100, L501.4021, L300.4310, L500.4050, L503.6005, M200.1000, L300.3900 ####[facility] [address] [place], [address] Chloride [Moles/Vol] 99 mmol/L Normal 98-108 [facility] Comment on above: Performed By: #### L 100.0100, L501.4021, L300.4310, L500.4050, L503.6005, M200.1000, L300.3900 ####[facility] [address] [place], [address] CO2 [Moles/Vol] 26.4 mmol/L Normal 21.0-32.0 [facility] Comment on above: Performed By: #### L 100.0100, L501.4021, L300.4310, L500.4050, L503.6005, M200.1000, L300.3900 ####[facility] [address] [place], [address] Creatinine [Mass/Vol] 0.64 mg/dL Low 0.70-1.20 [facility] Comment on above: Performed By: #### L 100.0100, L501.4021, L300.4310, L500.4050, L503.6005, M200.1000, L300.3900 ####[facility] [address] [place], [address] ECRCL 42.46 ml/min Low 50-250 [facility] Comment on above: Performed By: #### L 100.0100, L501.4021, L300.4310, L500.4050, L503.6005, M200.1000, L300.3900 ####[facility] [address] [place], [address] GAP 11 Normal 5-15 [facility] Comment on above: Performed By: #### L 100.0100, L501.4021, L300.4310, L500.4050, L503.6005, M200.1000, L300.3900 ####[facility] [address] [place], [address] GFR/1.73 sq M.predicted among non-blacks MDRD (S/P/Bld) [Vol rate/Area] 84 mL/min/{1.73_m2} Normal >60 [facility] Comment on above: Result Comment: mL/m in/1.73m2 CKD-EPI Creatinine Equation (2020) Performed By: #### L 100.0100, L501.4021, L300.4310, L500.4050, L503.6005, M200.1000, L300.3900 ####[facility] [address] [place], [address] Globulin (S) [Mass/Vol] 4.0 g/dL Normal 2.2-4.2 [facility] Comment on above: Performed By: #### L 100.0100, L501.4021, L300.4310, L500.4050, L503.6005, M200.1000, L300.3900 ####[facility] [address] [place], [address] Glucose [Mass/Vol] 46 mg/dL Low 70-99 [facility] Comment on above: Performed By: #### L 100.0100, L501.4021, L300.4310, L500.4050, L503.6005, M200.1000, L300.3900 ####[facility] [address] [place], [address] Potassium [Moles/Vol] 4.0 mmol/L Normal 3.3-5.1 [facility] Comment on above: Performed By: #### L 100.0100, L501.4021, L300.4310, L500.4050, L503.6005, M200.1000, L300.3900 ####[facility] [address] [place], [place], [address] Sodium [Moles/Vol] 137 mmol/L Normal 133-145 [facility] Comment on above: Performed By: #### L 100.0100, L501.4021, L300.4310, L500.4050, L503.6005, M200.1000, L300.3900 ####[facility] [address] [place], [address] T PROT 7.0 g/dL Normal 5.9-8.4 [facility] Comment on above: Performed By: #### L 100.0100, L501.4021, L300.4310, L500.4050, L503.6005, M200.1000, L300.3900 ####[facility] [address] [place], [address] Urea nitrogen [Mass/Vol] 10 mg/dL Normal 4-19 [facility] Comment on above: Performed By: #### L 100.0100, L501.4021, L300.4310, L500.4050, L503.6005, M200.1000, L300.3900 ####[facility] [address] [place], [place], [address] Emergency Department Summary on 10-23-2024 Emergency Department Summary Normal [facility] Eosinophil percentageOrdered By: Michael Sagastume on 10-23-2024 Eosinophils/100 WBC (Bld) 0.3 % 0-5 [facility] Erythrocyte distribution wid th ratioOrdered By: Michael Sagastume on 10-23-2024 Erythrocyte distribution width (RBC) [Ratio] 12.3 % 11.6-14.6 [facility] Erythrocyte distribution wid th standard deviationOrdered By: Michael Sagastume on 10-23-2024 Erythrocyte distribution width (RBC) [Ratio] 43.0 fl 35.1-43.9 [facility] Glomerular filtration rate ( GFR) estimation/1.73 sq m using serum, plasma, or whole bOrdered By: Michael Sagastume on 10-23-2024 GFR/1.73 sq M.predicted among non-blacks MDRD (S/P/Bld) [Vol rate/Area] 84 mL/min/{1.73_m2} >60 [facility] Comment on above: mL/min/1.73m2 CKD-EP I Creatinine Equation (2020) [facility] deOrdered By: Michael Sagastume on 10-23-2024 Glucose [Mass/Vol] 144 mg/dL High 74-106 [facility] Comment on above: MANAGEMENT OF PATIEN T CARE PER NURSING PROTOCOL Hematocrit Auto (Bld) [Volum e fraction]Ordered By: Michael Sagastume on 10-23-2024 Hematocrit (Bld) [Volume fraction] 37.9 % 37-47 [facility] Hemoglobin measurementOrdere d By: Michael Sagastume on 10-23-2024 Hemoglobin (Bld) [Mass/Vol] 12.4 g/dL 12.0-15.0 [facility] Immature granulocytes/100 WB C Auto (Bld)Ordered By: Michael Sagastume on 10-23-2024 Immature granulocytes/100 WBC (Bld) 0.400 % 0.0-0.9 [facility] Comment on above: IG% - Immature Granu locytes (promyelocytes, myelocytes and metamyelocytes) > 1% indicates that a LEFT SHIFT is Present. Influenza virus A and B and SARS-CoV-2 (COVID-19) and Respiratory syncytial virus RNAOrdered By: Michael Sagastume on 10-23-2024 SARS-CoV-2 (COVID-19) RNA LEYDA+probe Ql (Unsp spec) [facility] International normalized rat io (INR) calculationOrdered By: Michael Sagastume on 10-23-2024 INR Coag (Bld) [Relative time] 1.3 {INR} [facility] Ketones Test strip Ql (U)Ord ered By: Michael Sagastume on 10-23-2024 Ketones Ql (U) 50 mg/dl High Negative [facility] L499.0042on 10-23-2024 Trop T High Sen 13 ng/L Normal <=14 [facility] Comment on above: Performed By: #### L 499.0042 ####[facility] [address] [place], [address] L499.0043on 10-23-2024 Trop T High Sen Normal <=14 [facility] Comment on above: Result Comment: Canc elled via OM: Order cancelled - Patient discharged Performed By: #### L 499.0043 ####[facility] [address] [place], [address] L501.4021on 10-23-2024 Trop T High Sen 11 ng/L Normal <=14 [facility] Comment on above: Performed By: #### L 100.0100, L501.4021, L300.4310, L500.4050, L503.6005, M200.1000, L300.3900 ####[facility] [address] [place], [address] Laboratory - Chemistry and C hemistry - challengeOrdered By: Michael Sagastume on 10-23-2024 AST [Catalytic activity/Vol] 23 U/L <32 [facility] Lactic Acidon 10-23-2024 Lactate [Moles/Vol] 1.3 mmol/L Normal 0.0-2.0 [facility] Comment on above: Order Comment: Y Performed By: #### L 100.0100, L501.4021, L300.4310, L500.4050, L503.6005, M200.1000, L300.3900 ####[facility] [address] [place], [address] Lactic acid measurementOrder ed By: Michael Sagastume on 10-23-2024 Lactate [Moles/Vol] 1.3 mmol/L 0.0-2.0 [facility] M100.678on 10-23-2024 M100.678 SARS-CoV-2 (COVID 19 ) Negative INFLUENZA A Negative INFLUENZA B Negative RSV PCR Negative Normal [facility] Comment on above: Performed By: #### L 400.0001, M100.2200, M100.678 ####[facility] [address] [place], [address] MCV (mean corpuscular volume ) determinationOrdered By: Michael Sagastume on 10-23-2024 MCV (RBC) [Entitic vol] 95.0 fL 81-99 [facility] Mean corpuscular hemoglobin (MCH) determinationOrdered By: Michael Sagastume on 10-23-2024 MCH (RBC) [Entitic mass] 31.1 pg 27.0-32.0 [facility] Mean corpuscular hemoglobin concentration (MCHC) determinationOrdered By: Michael Sagastume on 10-23-2024 MCHC (RBC) [Mass/Vol] 32.7 g/dL 32-36 [facility] Mean platelet volume determi nationOrdered By: Michael Sagastume on 10-23-2024 Platelet mean volume (Bld) [Entitic vol] 11.5 fL 6.2-12.0 [facility] Microscopic analysis of urin e for red blood cells (RBC)Ordered By: Michael Sagastume on 10-23-2024 Microscopic analysis of urine for red blood cells (RBC) 0-5 SEEN /hpf 0-5 [facility] Monocyte percentageOrdered B y: Michael Sagastume on 10-23-2024 Monocytes/100 WBC (Bld) 23.6 % High 0-10 [facility] Mucus LM Ql (Urine sed)Order ed By: Michael Sagastume on 10-23-2024 Mucus Ql (Urine sed) 0 SEEN /hpf [facility] Neutrophil percentageOrdered By: Michael Sagastume on 10-23-2024 Neutrophils/100 WBC (Bld) 63.5 % 47-70 [facility] Nitrite Test strip Ql (U)Ord ered By: Michael Sagastume on 10-23-2024 Nitrite Ql (U) Negative Negative [facility] Nucleated red blood cell per centageOrdered By: Michael Sagastume on 10-23-2024 Nucleated RBC/100 WBC (Bld) [Ratio] 0 % 0-5 [facility] Partial Thromboplast Timeon 10-23-2024 aPTT Coag (Bld) [Time] 42.8 s High 24.1-36.2 [facility] Comment on above: Performed By: #### L 100.0100, L501.4021, L300.4310, L500.4050, L503.6005, M200.1000, L300.3900 ####[facility] [address] [facility] [place], [address] Platelet countOrdered By: Eliecer Sagastume on 10-23-2024 Platelets (Bld) [#/Vol] 95 10*3/uL Low 150-450 [facility] Platelet estimateOrdered By: Michael Sagastume on 10-23-2024 Platelets LM Ql (Bld) MOD DEC ADEQ [facility] Potassium measurement (mass/ volume)Ordered By: Michael Sagastume on 10-23-2024 Potassium (Unsp spec) [Mass/Vol] 4.0 mmol/L 3.3-5.1 [facility] Protein Test strip Ql (U)Ord ered By: Michael Sagastume on 10-23-2024 Protein Ql (U) 100 mg/dl High Negative [facility] Prothrombin Time w/INRon INR Coag (PPP) [Relative time] 1.3 {INR} Normal [facility] Comment on above: Performed By: #### L 100.0100, L501.4021, L300.4310, L500.4050, L503.6005, M200.1000, L300.3900 ####[facility] [address] [facility] [place], [address] PT Coag (PPP) [Time] 16.9 s High 11.7-14.9 [facility] Comment on above: Performed By: #### L 100.0100, L501.4021, L300.4310, L500.4050, L503.6005, M200.1000, L300.3900 ####[facility] [address] [place], [address] Prothrombin timeOrdered By: Michael Sagastume on 10-23-2024 PT Coag (PPP) [Time] 16.9 s High 11.7-14.9 [facility] RBC Auto (Bld) [#/Vol]Ordere d By: Michael Sagastume on 10-23-2024 RBC (Bld) [#/Vol] 3.99 10*6/uL Low 4.2-5.4 [facility] Serum creatinine measurement (mass/volume)Ordered By: Michael Sagastume on 10-23-2024 Creatinine [Mass/Vol] 0.64 mg/dL Low 0.70-1.20 [facility] Serum globulin measurementOr dered By: Michael Sagastume on 10-23-2024 Globulin (S) [Mass/Vol] 4.0 g/dL 2.2-4.2 [facility] Serum glucose measurement (m ass/volume)Ordered By: Michael Sagastume on 10-23-2024 Glucose [Mass/Vol] 46 mg/dL Low 70-99 [facility] Serum or plasma alanine belle otransferase (ALT) measurementOrdered By: Michael Sagastume on 10-23-2024 ALT [Catalytic activity/Vol] 6 U/L <35 [facility] Serum or plasma albumin ace urement (mass/volume)Ordered By: Michael Sagastume on 10-23-2024 Albumin [Mass/Vol] 3.0 g/dL Low 3.4-4.8 [facility] Serum or plasma albumin/glob ulin mass ratioOrdered By: Michael Sagastume on 10-23-2024 Albumin/Globulin [Mass ratio] 0.7 {ratio} Low 0.9-2.4 [facility] Serum or plasma alkaline flores sphatase measurementOrdered By: Michael Sagastume on 10-23-2024 ALP [Catalytic activity/Vol] 86 U/L 35-104 [facility] Serum or plasma calcium ace urement (mass/volume)Ordered By: Michael Sagastume on 10-23-2024 Calcium [Mass/Vol] 9.2 mg/dL 7.6-11.0 [facility] Serum or plasma urea nitroge n measurement (mass/volume)Ordered By: Michael Sagastume on 10-23-2024 Urea nitrogen [Mass/Vol] 10 mg/dL 4-19 [facility] Sodium levelOrdered By: Michael Sagastume on 10-23-2024 Sodium [Moles/Vol] 137 mmol/L 133-145 [facility] Squamous epithelial cells de tection in urine sediment by light microscopyOrdered By: Michael Sagastume on 10-23-2024 Epithelial cells.squamous LM Ql (Urine sed) 0-5 SEEN /hpf 5-10 [facility] Total proteinOrdered By: Rambo Sagastume on 10-23-2024 Protein [Mass/Vol] 7.0 g/dL 5.9-8.4 [facility] Troponin T.cardiac [Mass/vol ume] in Serum or Plasma by High sensitivity methodOrdered By: Michael Sagastume on 10-23-2024 Troponin T.cardiac High sensitivity method [Mass/Vol] 13 ng/L <14 [facility] Troponin T.cardiac High sensitivity method [Mass/Vol] 11 ng/L <14 [facility] Urinalysis, Completeon 10-23 EPI,SQUAMOUS 0-5 SEEN Normal 5-10 [facility] Comment on above: Order Comment: MALATHI TER SPECIMEN Performed By: #### L 400.0001, M100.2200, M100.678 ####[facility] [address] [place], [address] RBC 0-5 SEEN Normal 0-5 [facility] Comment on above: Order Comment: MALATHI TER SPECIMEN Performed By: #### L 400.0001, M100.2200, M100.678 ####[facility] [address] [place], [address] WBC 0-5 SEEN Normal 0-5 [facility] Comment on above: Order Comment: MALATHI TER SPECIMEN Performed By: #### L 400.0001, M100.2200, M100.678 ####[facility] [address] [place], [address] BACTERIA 0 SEEN Normal None Seen [facility] Comment on above: Order Comment: MALATHI TER SPECIMEN Performed By: #### L 400.0001, M100.2200, M100.678 ####[facility] [address] [place], [address] Mucus Ql (Urine sed) 0 SEEN Normal [facility] Comment on above: Order Comment: MALATHI TER SPECIMEN Performed By: #### L 400.0001, M100.2200, M100.678 ####[facility] [address] [place], [address] Urine clarityOrdered By: Rambo Sagastume on 10-23-2024 Clarity (U) Clear Clear [facility] Urine color determinationOrd ered By: Michael Sagastume on 10-23-2024 Color (U) Yellow Yellow [facility] Urine cultureOrdered By: Rambo Sagastume on 10-23-2024 Bacteria identified Cx Nom (U) Culture exhibits no growth. [facility] Urine glucose detectionOrder ed By: Michael Sagastume on 10-23-2024 Glucose Ql (U) Normal mg/dl Normal [facility] Urine leukocyte esterase det ection by dipstickOrdered By: Michael Sagastume on 10-23-2024 Leukocyte esterase Test strip Ql (U) Negative Negative [facility] Urine pHOrdered By: Michael preciado on 10-23-2024 pH (U) 6.0 [pH] 5.0 - 8.0 [facility] Urine sediment bacteria coun t by microscopy (number/high power field)Ordered By: Michael Sagastume on 10-23-2024 Bacteria LM.HPF (Urine sed) [#/Area] 0 /[HPF] None Seen [facility] Urine specific gravity measu rementOrdered By: Michael Sagastume on 10-23-2024 Specific gravity (U) [Rel density] 1.020 1.002-1.03 0 [facility] Urine urobilinogen measureme ntOrdered By: Michael Sagastume on 10-23-2024 Urobilinogen Ql (U) 1 mg/dl High Normal [facility] White blood cell (WBC) count Ordered By: Michael Sagastume on 10-23-2024 WBC (Bld) [#/Vol] 10.5 10*3/uL 4.4-11.0 [facility] White blood cell countOrdere d By: Michael Sagastume on 10-23-2024 White blood cell count 0-5 SEEN /hpf 0-5 [facility] CNOVon 10-19-2024 CNOV Office Visit (FAMPWS ) KRYSTYNA KHANNA ([id number]) 1935 F Date Time Provider Department 10/19/24 10:40 AM LULU TSATON During your visit today, we recorded the following information about you: Pulse Blood pressure Weight 61/minute 113/68 67 kg Lulu Staton APRN.DIVISION COMMANDER 10/19/2024 11:14 AM Addendum Chief Complaint Patient [...] distress, well-hydrated, (more content not included)... Normal [facility] CNOVon 10-07-2024 [facility] HERLINDAKRYSTYNA ([id number]) 1935 F Date Time Provider Department 10/07/24 11:45 AM CRUZ JAMES [facility] During your visit today, we recorded the following information about you: Temperature Pulse Respiration Blood pressure 98.8 degrees 62/minute 20/minute 138/84 Weight 72.2 kg Cruz James, CERTIFIED BENCH JEWELER TECHNICIAN.[facility] 10/07/2024 12:50 PM Signed [facility] [...] next 1-2 weeks for re-check Cruz James APRN.DIVISION COMMANDER -I have reviewed and updated with the [...] next 1-2 weeks for re-check Cruz James APRN.DIVISION COMMANDER -I hu (more content not included)... Normal [facility] XR RIB/CHST 3V AP RIB/OBL/CH ST [...] axillary line. IMPRESSION: Left 7th rib fracture Management Trainee Marketing: PSCB Transcribe Date/Time: Oct 07 2024 12:28P Dictated by : JASON ALCARAZ MD This examination was interpreted and the report reviewed and electronically signed by: JASON ALCARAZ MD on Oct 07 2024 12:29PM EST [id number] Normal [facility] XR Ribs - left Views and Janet st PAon 10-07-2024 IMPRESSION: Left 7th rib fracture Management Trainee Marketing: PSCB Transcribe Date/Time: Oct 07 2024 12:28P [...] mid axillary line. DIVISION OF RADIOLOGY Provider, [facility] - 10/07/2024 * * *Final Report* * [...] line. IMPRESSION IMPRESSION: Left 7th rib fracture Management Trainee Marketing: PSCB Transcribe Date/Time: Oct 07 2024 12:28P Dictated by : JASON ALCARAZ MD This examination was interpreted and the report reviewed and electronically signed by: JASON ALCARAZ MD on Oct 07 2024 12:29PM EST [facility] Radiology Study observation (narrative) [facility] XR Ribs - left Views and Janet st PAOrdered By: Ccf Provider on 10-07-2024 [facility] CNPNon 09-29-2024 CNPN Telephone (FAMPWS) KYRSTYNA KHANNA ([id number]) 1935 F Date Time Provider Department 09/29/24 RUFINO ERICKSON During your visit today, we recorded the following information about you: Cecelia Raymond MA 09/29/2024 1:56 PM Signed Pre-op form received from [facility] to be completed. Form completed by PCP. Attached EKG and recent OV notes. Faxed back to [phone]. Cecelia Raymond MA Allergies As of Date: [...] without behavioral disturbance (HCC) [*05/30/2024 Power of behavior specialist for health care on file [Z78.*06/01/2024 Balance disorder [R26.89] 07/05/2024 RBBB [I45.10] 09/27/2024 Vitreous hemorrhage, right eye (HCC) [H43.11] 09/27/2024 Encounter Status:Closed by CECELIA RAYMOND on 09/29/24 Normal [facility] Basic metabolic 2000 panelon 09-28-2024 Anion gap [Moles/Vol] 11 mmol/L 8 - 15 mmol/L [facility] Calcium [Mass/Vol] 9.3 mg/dL 8.5 - 10. 2 mg/dL [facility] Chloride [Moles/Vol] 100 mmol/L 98 - 10 7 mmol/L [facility] CO2 [Moles/Vol] 29 mmol/L 22 - 30 mmol/L [facility] Creatinine [Mass/Vol] 0.78 mg/dL 0.58 - 0.96 mg/dL [facility] GFR/1.73 sq M.predicted among non-blacks MDRD (S/P/Bld) [Vol rate/Area] 73 mL/min/{1.73_m2} - PINF [facility] Comment on above: Estimated Glomerular Filtration [...] 113 mg/dL High 74 - 99 mg/dL [facility] Comment on above: The [place] Diabete s Association (ADA) provides guidance for [...] Standards of Medical Care in Diabetes 2016, [place] Diabetes Association. Diabetes Care. 2016.39(Suppl 1). Interpretation and review of laboratory results Abnormal [facility] Potassium [Moles/Vol] 4.1 mmol/L 3.7 - 5.1 mmol/L [facility] Sodium [Moles/Vol] 140 mmol/L 136 - 144 mmol/L [facility] Urea nitrogen [Mass/Vol] 11 mg/dL 7 - 21 mg/dL [facility] CBC W Auto Differential pane l (Bld)on 09-28-2024 Basophils (Bld) [#/Vol] [facility] Basophils/100 WBC (Bld) 0.5 % [facility] Differential cell count method Nom (Bld) Auto [facility] Eosinophils (Bld) [#/Vol] [facility] Eosinophils/100 WBC (Bld) 0 % [facility] Erythrocyte distribution width (RBC) [Ratio] 12.7 % 11.5 - 15.0 % [facility] Hematocrit (Bld) [Volume fraction] 39.1 % 36.0 - 46.0 % [facility] Hemoglobin (Bld) [Mass/Vol] 12.5 g/dL 11.5 - 15.5 g/dL [facility] Immature granulocytes (Bld) [#/Vol] [facility] Immature granulocytes/100 WBC (Bld) 0.3 % [facility] Interpretation and review of laboratory results Abnormal [facility] Lymphocytes (Bld) [#/Vol] 2.12 10*3/uL [facility] Lymphocytes/100 WBC (Bld) 53.5 % [facility] MCH (RBC) [Entitic mass] 31.1 pg 26.0 - 34.0 pg [facility] MCHC (RBC) [Mass/Vol] 32 g/dL 30.5 - 36.0 g/dL [facility] MCV (RBC) [Entitic vol] 97.3 fL 80.0 - 100.0 fL [facility] Monocytes (Bld) [#/Vol] 0.56 10*3/uL NINF [facility] Monocytes/100 WBC (Bld) 14.1 % [facility] Neutrophils (Bld) [#/Vol] 1.25 10*3/uL Low [facility] Neutrophils/100 WBC (Bld) 31.6 % [facility] Nucleated RBC (Bld) [#/Vol] NINF [facility] Nucleated RBC/100 WBC (Bld) [Ratio] 0 % /100 WBC [facility] Platelet mean volume (Bld) [Entitic vol] [facility] Comment on above: Unable to Report. Platelets (Bld) [#/Vol] [facility] Comment on above: No clot detected.Keegan telets Clumped Estimate Low. RBC (Bld) [#/Vol] 4.02 10*6/uL 3.90 - 5.20 m/uL [facility] WBC (Bld) [#/Vol] 3.96 10*3/uL [facility] This is an appended report. These results have been appended to a previously verified report. [facility] Basic metabolic 2000 panelon 09-27-2024 Anion gap [Moles/Vol] 11 mmol/L Normal 8-15 [facility] Comment on above: Order Comment: Speci men Type: BLOOD SPECIMENOrdering Facility: [facility] Address: [address] [place] [address] Performed By: #### 2 4321-2 ####[facility] LABCLIA [id number] [place] [address] [place] Calcium [Mass/Vol] 9.3 mg/dL Normal 8.5-10.2 [facility] Comment on above: Order Comment: Speci men Type: BLOOD SPECIMENOrdering Facility: [facility] Address: [address] [place] [address] Performed By: #### 2 4321-2 ####[facility] LABCLIA [id number] [place] [address] [place] Chloride [Moles/Vol] 100 mmol/L Normal 98-107 [facility] Comment on above: Order Comment: Speci men Type: BLOOD SPECIMENOrdering Facility: [facility] Address: [address] [place], [place] [address] Performed By: #### 2 4321-2 ####[facility] LABCLIA [id number] [address] [address] [place] CO2 [Moles/Vol] 29 mmol/L Normal 22-30 [facility] Comment on above: Order Comment: Speci men Type: BLOOD SPECIMENOrdering Facility: [facility] Address: [address] [place] [address] Performed By: #### 2 4321-2 ####[facility] LABCLIA [id number] [address] STATES OF [facility] Creatinine [Mass/Vol] 0.78 mg/dL Normal 0.58-0.96 [facility] Comment on above: Order Comment: Speci men Type: BLOOD SPECIMENOrdering Facility: [facility] Address: [address] [place] [address] Performed By: #### 2 4321-2 ####[facility] LABCLIA [id number] [address] Creatinine and Glomerular filtration rate.predicted panel (S/P/Bld) 73 mL/min/1.73m??? Normal >=60 [facility] Comment on above: Order Comment: Speci men Type: BLOOD SPECIMENOrdering Facility: [facility] Address: [address] [place] [address] Result Comment: Nichelle mated Glomerular Filtration Rate [...] actual GFR. Performed By: #### 2 4321-2 ####[facility] LABCLIA [id number] [place] [address] [place] Glucose [Mass/Vol] 113 mg/dL High 74-99 [facility] Comment on above: Order Comment: Speci men Type: BLOOD SPECIMENOrdering Facility: [facility] Address: [address] [place] [address] Result Comment: The [place] Diabetes Association (ADA) provides guidance for cutoff [...] Standards of Medical Care in Diabetes 2016, [place] Diabetes Association. Diabetes Care. 2016.39(Suppl 1). Performed By: #### 2 4321-2 ####[facility] LABIA [id number] [place] [address] [place] Potassium [Moles/Vol] 4.1 mmol/L Normal 3.7-5.1 [facility] Comment on above: Order Comment: Speci men Type: BLOOD SPECIMENOrdering Facility: [facility] Address: [address] [place] [address] Performed By: #### 2 4321-2 ####[facility] LABIA [id number] [place] [id number] [place] Sodium [Moles/Vol] 140 mmol/L Normal 136-144 [facility] Comment on above: Order Comment: Speci men Type: BLOOD SPECIMENOrdering Facility: [facility] Address: [address] [place] [address] Performed By: #### 2 4321-2 ####[facility] LABCLIA [id number] [place] [address] [place] Urea nitrogen [Mass/Vol] 11 mg/dL Normal 7-21 [facility] Comment on above: Order Comment: Speci men Type: BLOOD SPECIMENOrdering Facility: [facility] Address: [address] [place] [address] Performed By: #### 2 4321-2 ####[facility] LABCLIA [id number] [place] [address] [place] CBC W Auto Differential pane l (Bld)on 09-27-2024 Basophils (Bld) [#/Vol] 10*3/uL Normal <0.11 [facility] Comment on above: Order Comment: Speci men Type: BLOOD SPECIMENOrdering Facility: [facility] Address: [address] [place] [address] Performed By: #### 5 7021-8 ####[facility] LABCLIA [id number] [place] [address] [place] Basophils/100 WBC (Bld) 0.5 % Normal [facility] Comment on above: Order Comment: Speci men Type: BLOOD SPECIMENOrdering Facility: [facility] Address: [address] [place] [address] Performed By: #### 5 7021-8 ####[facility] LABIA [id number] [place] [address] [place] Differential cell count method Nom (Bld) Auto Normal [facility] Comment on above: Order Comment: Speci men Type: BLOOD SPECIMENOrdering Facility: [facility] Address: [address] [place] [address] Performed By: #### 5 7021-8 ####[facility] LABCLIA [id number] [place] [address] [place] Eosinophils (Bld) [#/Vol] 10*3/uL Normal <0.46 [facility] Comment on above: Order Comment: Speci men Type: BLOOD SPECIMENOrdering Facility: [facility] Address: [address] [place] [address] Performed By: #### 5 7021-8 ####[facility] LABCLIA [id number] [place] [address] [place] Eosinophils/100 WBC (Bld) 0.0 % Normal [facility] Comment on above: Order Comment: Speci men Type: BLOOD SPECIMENOrdering Facility: [facility] Address: [address] [place] [address] Performed By: #### 5 7021-8 ####[facility] LABIA [id number] [place] [address] [place] Erythrocyte distribution width (RBC) [Ratio] 12.7 % Normal 11.5-15.0 [facility] Comment on above: Order Comment: Speci men Type: BLOOD SPECIMENOrdering Facility: [facility] Address: [address] [place] [address] Performed By: #### 5 7021-8 ####[facility] LABIA [id number] [place] [address] [place] Hematocrit (Bld) [Volume fraction] 39.1 % Normal 36.0-46.0 [facility] Comment on above: Order Comment: Speci men Type: BLOOD SPECIMENOrdering Facility: [facility] Address: [address] [place] [address] Performed By: #### 5 7021-8 ####[facility] LABCLIA [id number] [place] [address] [place] Hemoglobin (Bld) [Mass/Vol] 12.5 g/dL Normal 11.5-15.5 [facility] Comment on above: Order Comment: Speci men Type: BLOOD SPECIMENOrdering Facility: [facility] Address: [address] [place] [address] Performed By: #### 5 7021-8 ####[facility] LABCLIA [id number] [address] [place] [address] [place] Immature granulocytes (Bld) [#/Vol] 10*3/uL Normal <0.10 [facility] Comment on above: Order Comment: Speci men Type: BLOOD SPECIMENOrdering Facility: [facility] Address: [address] [place] [address] Performed By: #### 5 7021-8 ####[facility] LABCLIA [id number] [address], [place] [address] [place] Immature granulocytes/100 WBC (Bld) 0.3 % Normal [facility] Comment on above: Order Comment: Speci men Type: BLOOD SPECIMENOrdering Facility: [facility] Address: [address] [place] [address] Performed By: #### 5 7021-8 ####[facility] LABCLIA [id number] [place] [address] [place] Lymphocytes (Bld) [#/Vol] 2.12 10*3/uL Normal 1.00-4.00 [facility] Comment on above: Order Comment: Speci men Type: BLOOD SPECIMENOrdering Facility: [facility] Address: [address] [place] [address] Performed By: #### 5 7021-8 ####[facility] LABCLIA [id number] [address], [place] [address] [place] Lymphocytes/100 WBC (Bld) 53.5 % Normal [facility] Comment on above: Order Comment: Speci men Type: BLOOD SPECIMENOrdering Facility: [facility] Address: [address] [place] [address] Performed By: #### 5 7021-8 ####[facility] LABCLIA [id number] [place] [id number] [place] MCH (RBC) [Entitic mass] 31.1 pg Normal 26.0-34.0 [facility] Comment on above: Order Comment: Speci men Type: BLOOD SPECIMENOrdering Facility: [facility] Address: [address] [place] [address] Performed By: #### 5 7021-8 ####[facility] LABCLIA [id number] [place] [address] [place] MCHC (RBC) [Mass/Vol] 32.0 g/dL Normal 30.5-36.0 [facility] Comment on above: Order Comment: Speci men Type: BLOOD SPECIMENOrdering Facility: [facility] Address: [address] [place] [address] Performed By: #### 5 7021-8 ####[facility] LABCLIA [id number] [place] [address] [place] MCV (RBC) [Entitic vol] 97.3 fL Normal 80.0-100.0 [facility] Comment on above: Order Comment: Speci men Type: BLOOD SPECIMENOrdering Facility: [facility] Address: [address] [place] [address] Performed By: #### 5 7021-8 ####[facility] LABCLIA [id number] [place] [address] [place] Monocytes (Bld) [#/Vol] 0.56 10*3/uL Normal <0.87 [facility] Comment on above: Order Comment: Speci men Type: BLOOD SPECIMENOrdering Facility: [facility] Address: [address] [place] [address] Performed By: #### 5 7021-8 ####[facility] LABCLIA [id number] [place] [address] [place] Monocytes/100 WBC (Bld) 14.1 % Normal [facility] Comment on above: Order Comment: Speci men Type: BLOOD SPECIMENOrdering Facility: [facility] Address: [address] [place] [address] Performed By: #### 5 7021-8 ####[facility] LABCLIA [id number] [address], [place] [address] [place] Neutrophils (Bld) [#/Vol] 1.25 10*3/uL Low 1.45-7.50 [facility] Comment on above: Order Comment: Speci men Type: BLOOD SPECIMENOrdering Facility: [facility] Address: [address] [place] [address] Performed By: #### 5 7021-8 ####[facility] LABCLIA [id number] [place] [address] [place] Neutrophils/100 WBC (Bld) 31.6 % Normal [facility] Comment on above: Order Comment: Speci men Type: BLOOD SPECIMENOrdering Facility: [facility] Address: [address] [place] [address] Performed By: #### 5 7021-8 ####[facility] LABCLIA [id number] [place] [address] [place] Nucleated RBC (Bld) [#/Vol] 10*3/uL Normal <0.01 [facility] Comment on above: Order Comment: Speci men Type: BLOOD SPECIMENOrdering Facility: [facility] Address: [address] [place] [address] Performed By: #### 5 7021-8 ####[facility] LABCLIA [id number] [place] [address] [place] Nucleated RBC/100 WBC (Bld) [Ratio] 0.0 /100 WBC Normal [facility] Comment on above: Order Comment: Speci men Type: BLOOD SPECIMENOrdering Facility: [facility] Address: [address] [place] [address] Performed By: #### 5 7021-8 ####[facility] LABCLIA [id number] [address], [facility] [place] Platelet mean volume (Bld) [Entitic vol] Normal [facility] Comment on above: Order Comment: Speci men Type: BLOOD SPECIMENOrdering Facility: [facility] Address: [address] [place] [address] Result Comment: Unab le to Report. Performed By: #### 5 7021-8 ####[facility] LABIA [id number] [place] [address] [place] Platelets (Bld) [#/Vol] Normal [facility] Comment on above: Order Comment: Speci men Type: BLOOD SPECIMENOrdering Facility: [facility] Address: [address] [place] [address] Result Comment: No c lot detected.Platelets Clumped Estimate Low. Performed By: #### 5 7021-8 ####[facility] [id number] [place] [address] [place] RBC (Bld) [#/Vol] 4.02 10*6/uL Normal 3.90-5.20 [facility] Comment on above: Order Comment: Speci men Type: BLOOD SPECIMENOrdering Facility: [facility] Address: [address] [place] [address] Performed By: #### 5 7021-8 ####[facility] [id number] [place] [address] [place] WBC (Bld) [#/Vol] 3.96 10*3/uL Normal 3.70-11.00 [facility] Comment on above: Order Comment: Speci men Type: BLOOD SPECIMENOrdering Facility: [facility] Address: [address] [place] [address] Performed By: #### 5 7021-8 ####[facility] [id number] [place] [address] [place] CNOVon 09-27-2024 CNOV Office Visit (FAMPWS ) KRYSTYNA KHANNA ([id number]) 1935 F Date Time Provider Department 09/27/24 [...] for Pre Op for eye surgery with [facility]. Patient with hx of a.fib, HTN, elevated [...] in bathing independently. She denies performing heavy shake loader such as moving furniture, vacuuming, or sweeping. [...] Patient Allerg (more content not included)... Normal [facility] [id number] 09-27-2024 ECG01 Ventricular Rate : 6 0 BPM Atrial Rate : 67 BPM P-R Interval : 140 ms QRS Duration : 128 ms Q-T Interval : 448 ms QTC Calculation(Bazett) : 448 ms Calculated R [place] : 6 degrees Calculated T [place] : -24 degrees NORMAL SINUS RHYTHM COMPLETE RIGHT BUNDLE BRANCH BLOCK INFERIOR MYOCARDIAL INFARCTION , AGE UNDETERMINED ABNORMAL ECG Confirmed by MD MENDOZA QARAB ([id number]) on 09/29/2024 3:01:30 PM NAME : KRYSTYNA KHANNA PID : [id number] : 1935 Gender : Female Race : ORD : Procedure Date : Sep 27 2024 13:18:56 Edit Date : Sep 29 2024 15:01:36 Diagnosis: NORMAL SINUS RHYTHM COMPLETE RIGHT BUNDLE BRANCH BLOCK INFERIOR MYOCARDIAL INFARCTION , AGE UNDETERMINED ABNORMAL ECG Confirmed by MD MENDOZA QARAB ([id number]) on 09/29/2024 3:01:30 PM Test Reason : Location : 136 : [facility] Overread By : MD MENDOZA QARAB Edited By : MD MENDOZA QARAB Referred By : Rufino Erickson Acquired by : Betsy stuart [facility] Cardiology Visit Reporton Cardiology Visit Report Normal [facility] CNOVon 07-12-2024 CNOV Office Visit ([facility]WSTR ) KRYSTYNA KHANNA ([id number]) 1935 F Date Time Provider Department 07/12/24 2:45 PM HARRISON OSBORNE [facility] During your visit today, we recorded the following information about you: Temperature Pulse Blood pressure 98.6 degrees 72/minute 124/78 Harrison Osborne, CERTIFIED BENCH JEWELER TECHNICIAN.KRISTINE 07/12/2024 3:37 PM Signed This note was created using Skinkersriter. Subjective Krystyna Khanna is a 89 year [...] A/B AND RSV PCR, ROUTINE Harrison Osborne APRN.DIVISION COMMANDER Allergies As of Date: 07/12/2024 Noted Allergy Reaction DARVOCET A500 (PROPOXYPHENE N-APOLINAR*04/26/2012 16 - Unknown PROPOXYPHENE 07/03/2022 16 - Unknown SULFA (SULFONAMIDE ANTIBIOTICS) 04/26/2012 14 - Other: See Comments Comments: didn't feel right, nervousness Date Reviewed: 07/12/2024 Reviewed by: Harrison Osborne APRN.DIVISION COMMANDER - Fully Assessed Reason for Visit: Headache [52] Cmt: HU, ST and bodyaches x 3 days Primary Visit Diagnosis:Flu-like symptoms [R68.89] Other Visit Diagnosis:Acute upper respiratory infection, unspecified [J06.9] Order(s):XR CHEST 2V FRONTAL/LAT [[id number]] Order #: [id number] FUTURE COVID AND INFLUENZA A/B AND RSV PCR, ROUTINE [SQCVFLRS] Order #: [id number]. #:[id number] Prescriptions as of 07/12/2024 - atorvastatin (LIPITOR) [...] *11/30/2022 H (more content not included)... Normal [facility] XR CHEST 2V FRONTAL/LATon XR CHEST [...] tissues: Unremarkable. IMPRESSION: Small left pleural effusion Management Trainee Marketing: BEBETO Transcribe Date/Time: Jul 12 2024 3:24P Dictated by : JANET MADRID MD This examination was interpreted and the report reviewed and electronically signed by: JANET MADRID MD on Jul 12 2024 3:27PM EST [id number] Normal [facility] XR Chest PA and Lateralon IMPRESSION: Small left pleural effusion Management Trainee Marketing: BEBETO Transcribe Date/Time: Jul 12 2024 3:24P [...] soft tissues: Unremarkable. DIVISION OF RADIOLOGY Provider, [facility] - 07/12/2024 * * *Final Report* * [...] Unremarkable. IMPRESSION IMPRESSION: Small left pleural effusion Management Trainee Marketing: BEBETO Transcribe Date/Time: Jul 12 2024 3:24P Dictated by : JANET MADRID MD This examination was interpreted and the report reviewed and electronically signed by: JANET MADRID MD on Jul 12 2024 3:27PM EST [facility] Radiology Study observation (narrative) [facility] XR Chest PA and LateralOrder ed By: Ccf Provider on 07-12-2024 [facility] CBC W Auto Differential pane l (Bld)on 07-05-2024 Basophils (Bld) [#/Vol] 10*3/uL Normal <0.11 [facility] Comment on above: Order Comment: Speci men Type: BLOOD SPECIMENOrdering Facility: [facility] Address: [address] [place] [address] Performed By: #### 5 7021-8 ####[facility] LABCLIA [id number] [place] [address] [place] Basophils/100 WBC (Bld) 0.4 % Normal [facility] Comment on above: Order Comment: Speci men Type: BLOOD SPECIMENOrdering Facility: [facility] Address: [address] [place] [address] Performed By: #### 5 7021-8 ####[facility] LABCLIA [id number] [place] [address] [place] Differential cell count method Nom (Bld) Auto Normal [facility] Comment on above: Order Comment: Speci men Type: BLOOD SPECIMENOrdering Facility: [facility] Address: [address] [place] [address] Performed By: #### 5 7021-8 ####[facility] LABCLIA [id number] [place] [id number] [place] Eosinophils (Bld) [#/Vol] 10*3/uL Normal <0.46 [facility] Comment on above: Order Comment: Speci men Type: BLOOD SPECIMENOrdering Facility: [facility] Address: [address] [place] [address] Performed By: #### 5 7021-8 ####[facility] LABCLIA [id number] [address] [place] [address] [place] Eosinophils/100 WBC (Bld) 0.4 % Normal [facility] Comment on above: Order Comment: Speci men Type: BLOOD SPECIMENOrdering Facility: [facility] Address: [address] [place] [address] Performed By: #### 5 7021-8 ####[facility] LABCLIA [id number] [address], [place] [address] [place] Erythrocyte distribution width (RBC) [Ratio] 12.4 % Normal 11.5-15.0 [facility] Comment on above: Order Comment: Speci men Type: BLOOD SPECIMENOrdering Facility: [facility] Address: [address] [place] [address] Performed By: #### 5 7021-8 ####[facility] LABCLIA [id number] [address], [place] [address] [place] Hematocrit (Bld) [Volume fraction] 38.3 % Normal 36.0-46.0 [facility] Comment on above: Order Comment: Speci men Type: BLOOD SPECIMENOrdering Facility: [facility] Address: [address] [place] [address] Performed By: #### 5 7021-8 ####[facility] LABCLIA [id number] [address], [place] [address] [place] Hemoglobin (Bld) [Mass/Vol] 12.5 g/dL Normal 11.5-15.5 [facility] Comment on above: Order Comment: Speci men Type: BLOOD SPECIMENOrdering Facility: [facility] Address: [address] [place] [address] Performed By: #### 5 7021-8 ####[facility] LABCLIA [id number] [address], [facility] [place] [place] Immature granulocytes (Bld) [#/Vol] 10*3/uL Normal <0.10 [facility] Comment on above: Order Comment: Speci men Type: BLOOD SPECIMENOrdering Facility: [facility] Address: [address] [place] [address] Performed By: #### 5 7021-8 ####[facility] LABCLIA [id number] [place] [id number] [place] Immature granulocytes/100 WBC (Bld) 0.2 % Normal [facility] Comment on above: Order Comment: Speci men Type: BLOOD SPECIMENOrdering Facility: [facility] Address: [address] [place] [address] Performed By: #### 5 7021-8 ####[facility] LABCLIA [id number] [place] [address] [place] Lymphocytes (Bld) [#/Vol] 2.14 10*3/uL Normal 1.00-4.00 [facility] Comment on above: Order Comment: Speci men Type: BLOOD SPECIMENOrdering Facility: [facility] Address: [address] [place] [address] Performed By: #### 5 7021-8 ####[facility] LABCLIA [id number] [place] [address] [place] Lymphocytes/100 WBC (Bld) 46.8 % Normal [facility] Comment on above: Order Comment: Speci men Type: BLOOD SPECIMENOrdering Facility: [facility] Address: [address] [place] [address] Performed By: #### 5 7021-8 ####[facility] LABCLIA [id number] [place] [id number] [place] MCH (RBC) [Entitic mass] 31.9 pg Normal 26.0-34.0 [facility] Comment on above: Order Comment: Speci men Type: BLOOD SPECIMENOrdering Facility: [facility] Address: [address] [place] [address] Performed By: #### 5 7021-8 ####[facility] LABCLIA [id number] [place] [address] [place] MCHC (RBC) [Mass/Vol] 32.6 g/dL Normal 30.5-36.0 [facility] Comment on above: Order Comment: Speci men Type: BLOOD SPECIMENOrdering Facility: [facility] Address: [address] [place] [address] Performed By: #### 5 7021-8 ####[facility] LABIA [id number] [place] [address] [place] MCV (RBC) [Entitic vol] 97.7 fL Normal 80.0-100.0 [facility] Comment on above: Order Comment: Speci men Type: BLOOD SPECIMENOrdering Facility: [facility] Address: [address] [place] [address] Performed By: #### 5 7021-8 ####[facility] LABIA [id number] [place] [address] [place] Monocytes (Bld) [#/Vol] 0.65 10*3/uL Normal <0.87 [facility] Comment on above: Order Comment: Speci men Type: BLOOD SPECIMENOrdering Facility: [facility] Address: [address] [place] [address] Performed By: #### 5 7021-8 ####[facility] LABIA [id number] [place] [address] [place] Monocytes/100 WBC (Bld) 14.2 % Normal [facility] Comment on above: Order Comment: Speci men Type: BLOOD SPECIMENOrdering Facility: [facility] Address: [address] [place] [address] Performed By: #### 5 7021-8 ####[facility] LABCLIA [id number] [address], [facility] [place] [place] Neutrophils (Bld) [#/Vol] 1.73 10*3/uL Normal 1.45-7.50 [facility] Comment on above: Order Comment: Speci men Type: BLOOD SPECIMENOrdering Facility: [facility] Address: [address] [place] [address] Performed By: #### 5 7021-8 ####[facility] LABCLIA [id number] [place] [address] [place] Neutrophils/100 WBC (Bld) 38.0 % Normal [facility] Comment on above: Order Comment: Speci men Type: BLOOD SPECIMENOrdering Facility: [facility] Address: [address] [place] [address] Performed By: #### 5 7021-8 ####[facility] LABIA [id number] [place] [address] [place] Nucleated RBC (Bld) [#/Vol] 10*3/uL Normal <0.01 [facility] Comment on above: Order Comment: Speci men Type: BLOOD SPECIMENOrdering Facility: [facility] Address: [address] [place] [address] Performed By: #### 5 7021-8 ####[facility] LABIA [id number] [place] [address] [place] Nucleated RBC/100 WBC (Bld) [Ratio] 0.0 /100 WBC Normal [facility] Comment on above: Order Comment: Speci men Type: BLOOD SPECIMENOrdering Facility: [facility] Address: [address] [place] [address] Performed By: #### 5 7021-8 ####[facility] LABIA [id number] [place] [address] [place] Platelet mean volume (Bld) [Entitic vol] Normal [facility] Comment on above: Order Comment: Speci men Type: BLOOD SPECIMENOrdering Facility: [facility] Address: [address] [place] [address] Result Comment: Unab le to Report. Performed By: #### 5 7021-8 ####[facility] LABIA [id number] [place] [address] [place] Platelets (Bld) [#/Vol] Normal [facility] Comment on above: Order Comment: Speci men Type: BLOOD SPECIMENOrdering Facility: [facility] Address: [address] [place] [address] Result Comment: Plat elet count confirmed by manual review of peripheral blood smear. No clot detected.Platelets Clumped Estimate Low. Performed By: #### 5 7021-8 ####[facility] [id number] [place] [address] [place] RBC (Bld) [#/Vol] 3.92 10*6/uL Normal 3.90-5.20 [facility] Comment on above: Order Comment: Speci men Type: BLOOD SPECIMENOrdering Facility: [facility] Address: [address] [place] [address] Performed By: #### 5 7021-8 ####[facility] [id number] [place] [address] [place] WBC (Bld) [#/Vol] 4.57 10*3/uL Normal 3.70-11.00 [facility] Comment on above: Order Comment: Speci men Type: BLOOD SPECIMENOrdering Facility: [facility] Address: [address] [place] [address] Performed By: #### 5 7021-8 ####[facility] [id number] [place] [id number] [place] CNOVon 07-05-2024 CNOV Office Visit (FAMPWS ) KRYSTYNA KHANNA ([id number]) 1935 F Date Time Provider Department 07/05/24 [...] with her today. Patient was seen in [facility] ER on 06/08/2024 for black stools. No [...] those as below. Patient was released from [facility] in the past week. Patient is at home and getting PHYSICAL THERAPY and fdc at home. She has some weakness and imbalance still and it is a physical hardship for her to get out of the house for Tx. She is getting around with the use of a walker and her son says she is doing much better with this than she had been when she first went into the fdc facility for rehab. . Office visit 05/30/2024 - hospital follow up Patient was admitted to [facility] on 04/20/2024 and discharged on 05/03/2024 to [facility]dc for rehab. Patient had been diagnosed with [...] aid with sleep. Patient is currently in [facility] fdc: They just had a meeting this week [...] 1 tablet (more content not included)... Normal [facility] Comprehensive metabolic 2000 panelon 07-05-2024 Albumin [Mass/Vol] 4.0 g/dL Normal 3.9-4.9 [facility] Comment on above: Order Comment: Speci men Type: BLOOD SPECIMENOrdering Facility: [facility] Address: [address] [place] [address] Performed By: #### 2 4323-8, LIPNF ####[facility] LABCLIA [id number] [place] [address] [place] ALP [Catalytic activity/Vol] 75 U/L Normal 34-123 [facility] Comment on above: Order Comment: Speci men Type: BLOOD SPECIMENOrdering Facility: [facility] Address: [address] [place] [address] Performed By: #### 2 4323-8, LIPNF ####[facility] LABCLIA [id number] [place] [address] [place] ALT [Catalytic activity/Vol] 7 U/L Normal 7-38 [facility] Comment on above: Order Comment: Speci men Type: BLOOD SPECIMENOrdering Facility: [facility] Address: [address] [place] [address] Performed By: #### 2 4323-8, LIPNF ####[facility] LABCLIA [id number] [place] [address] [place] Anion gap [Moles/Vol] 11 mmol/L Normal 8-15 [facility] Comment on above: Order Comment: Speci men Type: BLOOD SPECIMENOrdering Facility: [facility] Address: [address] [place] [id number] Performed By: #### 2 4323-8, LIPNF ####[facility] LABCLIA [id number] [place] [id number] [place] AST [Catalytic activity/Vol] 22 U/L Normal 13-35 [facility] Comment on above: Order Comment: Speci men Type: BLOOD SPECIMENOrdering Facility: [facility] Address: [address] [place] [address] Performed By: #### 2 4323-8, LIPNF ####[facility] LABCLIA [id number] [place] [address] [place] Bilirubin [Mass/Vol] 0.7 mg/dL Normal 0.2-1.3 [facility] Comment on above: Order Comment: Speci men Type: BLOOD SPECIMENOrdering Facility: [facility] Address: [address] [place] [address] Performed By: #### 2 4323-8, LIPNF ####[facility] LABCLIA [id number] [place] [address] [place] Calcium [Mass/Vol] 9.5 mg/dL Normal 8.5-10.2 [facility] Comment on above: Order Comment: Speci men Type: BLOOD SPECIMENOrdering Facility: [facility] Address: [address] [place] [address] Performed By: #### 2 4323-8, LIPNF ####[facility] LABCLIA [id number] [place] [id number] [place] Chloride [Moles/Vol] 102 mmol/L Normal 98-107 [facility] Comment on above: Order Comment: Speci men Type: BLOOD SPECIMENOrdering Facility: [facility] Address: [address] [place], [place] [address] Performed By: #### 2 4323-8, LIPNF ####[facility] LABCLIA [id number] [address] [address] [place] CO2 [Moles/Vol] 27 mmol/L Normal 22-30 [facility] Comment on above: Order Comment: Speci men Type: BLOOD SPECIMENOrdering Facility: [facility] Address: [address] [place] [address] Performed By: #### 2 4323-8, LIPNF ####[facility] LABCLIA [id number] [address] [address] [place] Creatinine [Mass/Vol] 0.63 mg/dL Normal 0.58-0.96 [facility] Comment on above: Order Comment: Speci men Type: BLOOD SPECIMENOrdering Facility: [facility] Address: [address] [place] [address] Performed By: #### 2 4323-8, LIPNF ####[facility] LABIA [id number] [place] [id number] [place] Creatinine and Glomerular filtration rate.predicted panel (S/P/Bld) 85 mL/min/1.73m??? Normal >=60 [facility] Comment on above: Order Comment: Speci men Type: BLOOD SPECIMENOrdering Facility: [facility] Address: [address] [place] [address] Result Comment: Nichelle mated Glomerular Filtration Rate [...] GFR. Performed By: #### 2 4323-8, LIPNF ####[facility] LABCLIA [id number] [address] [address] [place] Glucose [Mass/Vol] 125 mg/dL High 74-99 [facility] Comment on above: Order Comment: Speci men Type: BLOOD SPECIMENOrdering Facility: [facility] Address: [address] [place] [address] Result Comment: The [place] Diabetes Association (ADA) provides guidance for cutoff [...] Standards of Medical Care in Diabetes 2016, [place] Diabetes Association. Diabetes Care. 2016.39(Suppl 1). Performed By: #### 2 4323-8, LIPNF ####[facility] LABCLIA [id number] [place] [address] [place] Potassium [Moles/Vol] 4.5 mmol/L Normal 3.7-5.1 [facility] Comment on above: Order Comment: Speci men Type: BLOOD SPECIMENOrdering Facility: [facility] Address: [address] [place] [address] Performed By: #### 2 4323-8, LIPNF ####[facility] LABCLIA [id number] [place] [address] [place] Protein [Mass/Vol] 6.8 g/dL Normal 6.3-8.0 [facility] Comment on above: Order Comment: Speci men Type: BLOOD SPECIMENOrdering Facility: [facility] Address: [address] [place] [address] Performed By: #### 2 4323-8, LIPNF ####[facility] LABCLIA [id number] [place] [id number] [place] Sodium [Moles/Vol] 140 mmol/L Normal 136-144 [facility] Comment on above: Order Comment: Speci men Type: BLOOD SPECIMENOrdering Facility: [facility] Address: [address] [place] [address] Performed By: #### 2 4323-8, LIPNF ####[facility] LABCLIA [id number] [address] [address] [place] Urea nitrogen [Mass/Vol] 8 mg/dL Normal 7-21 [facility] Comment on above: Order Comment: Speci men Type: BLOOD SPECIMENOrdering Facility: [facility] Address: [address] [place] [address] Performed By: #### 2 4323-8, LIPNF ####[facility] LABCLIA [id number] [place] [address] [place] HbA1c (Bld)on 07-05-2024 Average glucose Estimated from glycated hemoglobin (Bld) [Mass/Vol] 114 mg/dL Normal [facility] Comment on above: Order Comment: Felipei men Type: BLOOD SPECIMENOrdering Facility: [facility] Address: [address] [place] [address] Result Comment: eAG: (Estimated average glucose) is a calculated value from HgbA1c and is customer response representative of the average blood glucose level in the last 2-3 month period. Performed By: #### 5 5454-3 ####[facility] LABCLIA [id number] [place] [id number] [place] HbA1c (Bld) [Mass fraction] 5.6 % Normal 4.3-5.6 [facility] Comment on above: Order Comment: [facility] Type: BLOOD SPECIMENOrdering Facility: [facility] Address: [address] [place] [address] Result Comment: Amer [place] Diabetes Association guidelines indicate that patients with HgbA1c in the range 5.7-6.4% are at increased risk for development of diabetes, and intervention by lifestyle modification may be beneficial. HgbA1c greater or equal to 6.5% is considered diagnostic of diabetes. Performed By: #### 5 5454-3 ####[facility] LABCLIA [id number] [facility] [place] [id number] [address] [facility] [place] LIPID PANEL, NONFASTINGon Cholesterol [Mass/Vol] 85 mg/dL Normal <200 [facility] Comment on above: Order Comment: Speci men Type: BLOOD SPECIMENOrdering Facility: [facility] Address: [address] [place] [address] Result Comment: <200 mg/dL, Desirable 200-239 mg/dL, Borderline high >239 mg/dL, High Performed By: #### 2 4323-8, LIPNF ####[facility] LABCLIA [id number] [address], [place] [address] [place] HDL CHOLESTEROL, NF 37 mg/dL Low >39 [facility] Comment on above: Order Comment: Speci men Type: BLOOD SPECIMENOrdering Facility: [facility] Address: [address] [place] [address] Result Comment: 40-5 9 mg/dL, Acceptable >59 mg/dL, High: Negative risk factor for coronary heart disease <40 mg/dL, Low: Positive risk factor for coronary heart disease Performed By: #### 2 4323-8, LIPNF ####[facility] LABCLIA [id number] [address], [place] [address] [place] LDL CHOLESTEROL, NF 29 mg/dL Normal <100 [facility] Comment on above: Order Comment: Speci men Type: BLOOD SPECIMENOrdering Facility: [facility] Address: [address] [place] [address] Result Comment: <100 mg/dL, Optimal 100-129 mg/dL, Near optimal/above optimal 130-159 mg/dL, Borderline high 160-189 mg/dL, High >189 mg/dL, Very high Secondary prevention optimal LDL Cholesterol levels are recommended to be < 70 mg/dL Performed By: #### 2 4323-8, LIPNF ####[facility] LABCLIA [id number] [address] [place] [address] [place] LDL/HDL RATIO, NF 0.78 mg/dL Normal <2.54 [facility] Comment on above: Order Comment: Speci men Type: BLOOD SPECIMENOrdering Facility: [facility] Address: [address] [place] [address] Result Comment: Balwinder do: 1. National Cholesterol Education Program ATP III Guideline At-A-Glance Quick Desk Reference: National Heart, Lung, and Blood [place]. National Institutes of Health. 2001: NIH Publication No. 01-3305. 2. An International Atherosclerosis Society position paper: global recommendations for the management of dyslipidemia: executive summary, Atherosclerosis. 2014: 232(2):410-413. Performed By: #### 2 4323-8, LIPNF ####[facility] LABCLIA [id number] [address] [place] NON HDL CHOL, NF 48 mg/dL Normal <130 [facility] Comment on above: Order Comment: Felipei men Type: BLOOD SPECIMENOrdering Facility: [facility] Address: [address] [place] [address] Result Comment: <130 mg/dL, Optimal 130-159 mg/dL, Near optimal/above optimal 160-189 mg/dL, Borderline high 190-219 mg/dL, High >219 mg/dL, Very high Secondary prevention optimal non HDL Cholesterol levels are recommended to be <100 mg/dL Performed By: #### 2 4323-8, LIPNF ####[facility] LABCLIA [id number] [place] [address] [place] T CHOL/HDL RATIO NF 2.30 mg/dL Normal <5.10 [facility] Comment on above: Order Comment: Speci men Type: BLOOD SPECIMENOrdering Facility: [facility] Address: [address] [place] [address] Performed By: #### 2 4323-8, LIPNF ####[facility] LABCLIA [id number] [place] [address] [place] TRIGLYCERIDES, NF 94 mg/dL Normal <150 [facility] Comment on above: Order Comment: Speci men Type: BLOOD SPECIMENOrdering Facility: [facility] Address: [address] [place] [address] Result Comment: <150 mg/dL, Normal 150-199 mg/dL, Borderline high 200-499 mg/dL, High >499 mg/dL, Very high Performed By: #### 2 4323-8, LIPNF ####[facility] LABCLIA [id number] [place] [address] [place] VLDL CHOLESTEROL, NF 19 mg/dL Normal <30 [facility] Comment on above: Order Comment: Speci men Type: BLOOD SPECIMENOrdering Facility: [facility] Address: [address] [place] [address] Performed By: #### 2 4323-8, LIPNF ####[facility] LABCLIA [id number] [place] [address] [place] Basic Metabolic Profile (BMP )on 06-08-2024 BUN/CRE 24.4 RATIO High - [facility] Comment on above: Performed By: #### B TS, L100.0100, L300.3900, L500.2500 ####[facility] [address] [place], [address] CA,Total 9.1 mg/dL Normal 8.5-10.1 [facility] Comment on above: Performed By: #### B TS, L100.0100, L300.3900, L500.2500 ####[facility] [address] [place], [address] Chloride [Moles/Vol] 98 mmol/L Normal 98-107 [facility] Comment on above: Performed By: #### B TS, L100.0100, L300.3900, L500.2500 ####[facility] [address] [place], [address] CO2 [Moles/Vol] 33.0 mmol/L High 21.0-32.0 [facility] Comment on above: Performed By: #### B TS, L100.0100, L300.3900, L500.2500 ####[facility] [address] [place], [address] Creatinine [Mass/Vol] 0.74 mg/dL Normal 0.55-1.02 [facility] Comment on above: Result Comment: The validity of the calculated GFR GFRAA in patients over70 years has not been determined. Clinical correlation isessential. Performed By: #### B TS, L100.0100, L300.3900, L500.2500 ####[facility] [address] [place], [address] ECRCL 43.97 ml/min Normal [facility] Comment on above: Performed By: #### B TS, L100.0100, L300.3900, L500.2500 ####[facility] [address] [place], [address] EST GFR - AA 95 mL/min Normal >60 [facility] Comment on above: Result Comment: Afri can Micronesian GFR Calc Performed By: #### B TS, L100.0100, L300.3900, L500.2500 ####[facility] [address] [place], [address] GAP 4 Low 5-15 [facility] Comment on above: Performed By: #### B TS, L100.0100, L300.3900, L500.2500 ####[facility] [address] [place], [address] GFR/1.73 sq M.predicted among non-blacks MDRD (S/P/Bld) [Vol rate/Area] 79 mL/min/{1.73_m2} Normal >60 [facility] Comment on above: Result Comment: Non- GFR Calc Performed By: #### B TS, L100.0100, L300.3900, L500.2500 ####[facility] [address] [place], [address] Glucose [Mass/Vol] 101 mg/dL Normal 74-106 [facility] Comment on above: Result Comment: Fast ing Glucose result from 100 to 125 mg/dLsuggests IMPAIRED HOMEOSTASIS per A.D.A. criteria. Performed By: #### B TS, L100.0100, L300.3900, L500.2500 ####[facility] [address] [place], [address] Potassium [Moles/Vol] 4.1 mmol/L Normal 3.5-5.1 [facility] Comment on above: Performed By: #### B TS, L100.0100, L300.3900, L500.2500 ####[facility] [address] [place], [address] Sodium [Moles/Vol] 135 mmol/L Low 136-145 [facility] Comment on above: Performed By: #### B TS, L100.0100, L300.3900, L500.2500 ####[facility] [address] [place], [address] Urea nitrogen [Mass/Vol] 18 mg/dL Normal 7-18 [facility] Comment on above: Performed By: #### B TS, L100.0100, L300.3900, L500.2500 ####[facility] [address] [place], [address] CBC W/Diff, Automatedon 02-2 0-2024 Absolute Lymph 2.36 X10 3/uL Normal 0.83-4.51 [facility] Comment on above: Performed By: #### B TS, L100.0100, L300.3900, L500.2500 ####[facility] [address] [place], [address] Absolute Neut 3.3 X10 3/uL Normal 2.0-7.7 [facility] Comment on above: Performed By: #### B TS, L100.0100, L300.3900, L500.2500 ####[facility] [address] [place], [address] Basophils/100 WBC (Bld) 0.1 % Normal 0-1 [facility] Comment on above: Performed By: #### B TS, L100.0100, L300.3900, L500.2500 ####[facility] [address] [place], [address] Eosinophils/100 WBC (Bld) 1.4 % Normal 0-5 [facility] Comment on above: Performed By: #### B TS, L100.0100, L300.3900, L500.2500 ####[facility] [address] [place], [address] Erythrocyte distribution width (RBC) [Ratio] 13.1 % Normal 11.6-14.6 [facility] Comment on above: Performed By: #### B TS, L100.0100, L300.3900, L500.2500 ####[facility] [address] [place], [address] Hematocrit (Bld) [Volume fraction] 40.9 % Normal 37-47 [facility] Comment on above: Performed By: #### B TS, L100.0100, L300.3900, L500.2500 ####[facility] [address] [place], [address] Hemoglobin (Bld) [Mass/Vol] 12.8 g/dL Normal 12.0-15.0 [facility] Comment on above: Performed By: #### B TS, L100.0100, L300.3900, L500.2500 ####[facility] [address] [place], [address] IG% 0.400 Normal 0.0-0.9 [facility] Comment on above: Result Comment: IG% - Immature Granulocytes (promyelocytes, myelocytes andmetamyelocytes) > 1% indicates that a LEFT SHIFT is Present. Performed By: #### B TS, L100.0100, L300.3900, L500.2500 ####[facility] [address] [place], [address] Lymphocytes/100 WBC (Bld) 32.6 % Normal 19-41 [facility] Comment on above: Performed By: #### B TS, L100.0100, L300.3900, L500.2500 ####[facility] [address] [place], [address] MCH (RBC) [Entitic mass] 30.1 pg Normal 27.0-32.0 [facility] Comment on above: Performed By: #### B TS, L100.0100, L300.3900, L500.2500 ####[facility] [address] [place], [address] MCHC (RBC) [Mass/Vol] 31.3 g/dL Low 32-36 [facility] Comment on above: Performed By: #### B TS, L100.0100, L300.3900, L500.2500 ####[facility] [address] [place], [address] MCV (RBC) [Entitic vol] 96.2 fL Normal 81-99 [facility] Comment on above: Performed By: #### B TS, L100.0100, L300.3900, L500.2500 ####[facility] [address] [place], [address] Monocytes/100 WBC (Bld) 20.3 % High 0-10 [facility] Comment on above: Performed By: #### B TS, L100.0100, L300.3900, L500.2500 ####[facility] [address] [place], [address] Neutrophils/100 WBC (Bld) 45.2 % Low 47-70 [facility] Comment on above: Performed By: #### B TS, L100.0100, L300.3900, L500.2500 ####[facility] [address] [place], [address] Nucleated RBC (Bld) [#/Vol] 0 10*3/uL Normal 0-5 [facility] Comment on above: Performed By: #### B TS, L100.0100, L300.3900, L500.2500 ####[facility] [address] [place], [address] Platelet mean volume (Bld) [Entitic vol] 10.7 fL Normal 6.2-12.0 [facility] Comment on above: Performed By: #### B TS, L100.0100, L300.3900, L500.2500 ####[facility] [address] [place], [address] Platelets (Bld) [#/Vol] 104 10*3/uL Low 150-450 [facility] Comment on above: Performed By: #### B TS, L100.0100, L300.3900, L500.2500 ####[facility] [address] [place], [address] RBC (Bld) [#/Vol] 4.25 10*6/uL Normal 4.2-5.4 [facility] Comment on above: Performed By: #### B TS, L100.0100, L300.3900, L500.2500 ####[facility] [address] [place], [address] RDW SD 46.7 fl High 35.1-43.9 [facility] Comment on above: Performed By: #### B TS, L100.0100, L300.3900, L500.2500 ####[facility] [address] [place], [address] WBC (Bld) [#/Vol] 7.2 10*3/uL Normal 4.4-11.0 [facility] Comment on above: Performed By: #### B TS, L100.0100, L300.3900, L500.2500 ####[facility] [address] [place], [address] Chest PA and Lateralon 06-08 Chest PA and Lateral Normal [facility] Emergency Department Summary on 06-08-2024 Emergency Department Summary Normal [facility] Neurology Visit Reporton Neurology Visit Report Normal [facility] Prothrombin Time w/INRon INR Coag (PPP) [Relative time] 1.4 {INR} Normal [facility] Comment on above: Performed By: #### B TS, L100.0100, L300.3900, L500.2500 ####[facility] [address] [place], [address] PT Coag (PPP) [Time] 17.1 s High 11.7-14.9 [facility] Comment on above: Performed By: #### B TS, L100.0100, L300.3900, L500.2500 ####[facility] [address] [place], [address] Type AND Screenon 06-08-2024 Ab SCREEN GEL Negative Normal [facility] Comment on above: Order Comment: HGI Performed By: #### B TS, L100.0100, L300.3900, L500.2500 ####[facility] [address] [place], [address] CNPNon 05-31-2024 CNPN Telephone (FAMPWS) KRYSTYNA KHANNA ([id number]) 1935 F Date Time Provider Department 05/31/24 RUFINO ERICKSON During your visit today, we recorded the following information about you: Nikia Pineda RN 05/31/2024 2:32 PM Signed Mary Machado CNP with [facility] calls to give provider an update since appt yesterday. BP sitting 122/62 BP standing 150/70 Lung sounds are clear with a very occasional bronchial wheeze noted. Mary said for any questions please feel free to reach her at [phone]. XOCHITL Ga Jeffrey A, MD 05/31/2024 8:32 [...] Status:Closed by RUFINO ERICKSON on 05/31/24 Normal [facility] CNOVon 05-30-2024 CNOV Office Visit (FAMPWS ) KRYSTYNA KHANNA ([id number]) 1935 F Date Time Provider Department 05/30/24 11:00 AM RUFINO ERICKSONPWS During your visit today, we recorded the following information about you: Pulse Respiration Blood pressure 64/minute 20/minute 92/60 Rufino Erickson MD 05/30/2024 1:37 PM Signed Chief Complaint Patient presents with: [facility] F/U [facility] Krystyna Khanna is a 89 year old female who presents here today for 6 month follow up. Espinoza her son is with her today. Patient was admitted to [facility] on 04/20/2024 and discharged on 05/03/2024 to [facility] for rehab. Patient had been diagnosed with [...] aid with sleep. Patient is currently in [facility] fdc: They just had a meeting this week and plan to keep her for another 4 weeks at this time. She is to /[facility] Dr[facility] Choi for cardiology and [...] for hemoptysis, (more content not included)... Normal [facility] Basic Metabolic Profile (BMP )on 05-01-2024 BUN/CRE 28.0 RATIO High 10-20 [facility] Comment on above: Performed By: #### L 500.2500, L100.0100 ####[facility] [address] [place], [address] CA,Total 9.4 mg/dL Normal 8.5-10.1 [facility] Comment on above: Performed By: #### L 500.2500, L100.0100 ####[facility] [address] [place], [address] Chloride [Moles/Vol] 100 mmol/L Normal 98-107 [facility] Comment on above: Performed By: #### L 500.2500, L100.0100 ####[facility] [address] [place], [address] CO2 [Moles/Vol] 31.0 mmol/L Normal 21.0-32.0 [facility] Comment on above: Performed By: #### L 500.2500, L100.0100 ####[facility] [address] [place], [address] Creatinine [Mass/Vol] 0.64 mg/dL Normal 0.55-1.02 [facility] Comment on above: Result Comment: The validity of the calculated GFR GFRAA in patients over70 years has not been determined. Clinical correlation isessential. Performed By: #### L 500.2500, L100.0100 ####[facility] [address] [place], [address] ECRCL 43.62 ml/min Normal [facility] Comment on above: Performed By: #### L 500.2500, L100.0100 ####[facility] [address] [place], [address] EST GFR - AA 112 mL/min Normal >60 [facility] Comment on above: Result Comment: Afri can Micronesian GFR Calc Performed By: #### L 500.2500, L100.0100 ####[facility] [address] [place], [address] GAP 2 Low 5-15 [facility] Comment on above: Performed By: #### L 500.2500, L100.0100 ####[facility] [address] [place], [address] GFR/1.73 sq M.predicted among non-blacks MDRD (S/P/Bld) [Vol rate/Area] 93 mL/min/{1.73_m2} Normal >60 [facility] Comment on above: Result Comment: Non- GFR Calc Performed By: #### L 500.2500, L100.0100 ####[facility] [address] [place], [address] Glucose [Mass/Vol] 148 mg/dL High 74-106 [facility] Comment on above: Result Comment: Fast ing Glucose result greater than or equal to 126 mg/dLsuggests DIABETES MELLITUS per A.D.A. criteria. Performed By: #### L 500.2500, L100.0100 ####[facility] [address] [place], [address] Potassium [Moles/Vol] 3.8 mmol/L Normal 3.5-5.1 [facility] Comment on above: Performed By: #### L 500.2500, L100.0100 ####[facility] [address] [place], [address] Sodium [Moles/Vol] 133 mmol/L Low 136-145 [facility] Comment on above: Performed By: #### L 500.2500, L100.0100 ####[facility] [address] [place], [address] Urea nitrogen [Mass/Vol] 18 mg/dL Normal 7-18 [facility] Comment on above: Performed By: #### L 500.2500, L100.0100 ####[facility] [address] [place], [address] CBC W/Diff, Automatedon 04-19 PLT EST SLT DEC Normal ADEQ [facility] Comment on above: Order Comment: REDRA W. PREVIOUS SPECIMEN REJECTED DUE TOPLT CLUMPS. 05/01/24620 Brittani Diaz. Performed By: #### L 100.0100 ####[facility] [address] [place], [address] Absolute Neut Normal 2.0-7.7 [facility] Comment on above: Result Comment: This specimen has been REJECTED due to Laboratory criteria:Platelet Clumping.LAB has been notified of need of recollection.05/01/24620 Brittani Diaz Performed By: #### L 500.2500, L100.0100 ####[facility] [address] [place], [address] HCT Normal 37-47 [facility] Comment on above: Result Comment: This specimen has been REJECTED due to Laboratory criteria:Platelet Clumping.LAB has been notified of need of recollection.05/01/24620 Brittani Diaz Performed By: #### L 500.2500, L100.0100 ####[facility] [address] [place], [address] HGB Normal 12.0-15.0 [facility] Comment on above: Result Comment: This specimen has been REJECTED due to Laboratory criteria:Platelet Clumping.LAB has been notified of need of recollection.05/01/24620 Brittani Diaz Performed By: #### L 500.2500, L100.0100 ####[facility] [address] [facility] [address] MCH Normal 27.0-32.0 [facility] Comment on above: Result Comment: This specimen has been REJECTED due to Laboratory criteria:Platelet Clumping.LAB has been notified of need of recollection.05/01/24620 Brittani Diaz Performed By: #### L 500.2500, L100.0100 ####[facility] [address] [facility] [address] MCHC Normal 32-36 [facility] Comment on above: Result Comment: This specimen has been REJECTED due to Laboratory criteria:Platelet Clumping.LAB has been notified of need of recollection.05/01/24620 Brittani Diaz Performed By: #### L 500.2500, L100.0100 ####[facility] [address] [place], [address] MCV Normal 81-99 [facility] Comment on above: Result Comment: This specimen has been REJECTED due to Laboratory criteria:Platelet Clumping.LAB has been notified of need of recollection.05/01/24620 Brittani Diaz Performed By: #### L 500.2500, L100.0100 ####[facility] [address] [place], [address] NEUT% Normal 47-70 [facility] Comment on above: Result Comment: This specimen has been REJECTED due to Laboratory criteria:Platelet Clumping.LAB has been notified of need of recollection.05/01/24620 Brittani Diaz Performed By: #### L 500.2500, L100.0100 ####[facility] [address] [place], [address] PLT Normal 150-450 [facility] Comment on above: Result Comment: This specimen has been REJECTED due to Laboratory criteria:Platelet Clumping.LAB has been notified of need of recollection.05/01/24620 Brittani Diaz Performed By: #### L 500.2500, L100.0100 ####[facility] [address] [place], [address] RBC Normal 4.2-5.4 [facility] Comment on above: Result Comment: This specimen has been REJECTED due to Laboratory criteria:Platelet Clumping.LAB has been notified of need of recollection.05/01/24620 Brittani Diaz Performed By: #### L 500.2500, L100.0100 ####[facility] [address] [place], [address] RDW CV Normal 11.6-14.6 [facility] Comment on above: Result Comment: This specimen has been REJECTED due to Laboratory criteria:Platelet Clumping.LAB has been notified of need of recollection.05/01/24620 Brittani Diaz Performed By: #### L 500.2500, L100.0100 ####[facility] [address] [place], [address] RDW SD Normal 35.1-43.9 [facility] Comment on above: Result Comment: This specimen has been REJECTED due to Laboratory criteria:Platelet Clumping.LAB has been notified of need of recollection.05/01/24620 Brittani Diaz Performed By: #### L 500.2500, L100.0100 ####[facility] [address] [place], [address] WBC Normal 4.4-11.0 [facility] Comment on above: Result Comment: This specimen has been REJECTED due to Laboratory criteria:Platelet Clumping.LAB has been notified of need of recollection.05/01/24 0621 Brittani Diaz Performed By: #### L 500.2500, L100.0100 ####[facility] [address] [place], [address] PLATELET COUNTon 05-01-2024 Platelets (Bld) [#/Vol] 117 10*3/uL Low 150-450 [facility] Comment on above: Order Comment: TANRA Stallings. PREVIOUS SPECIMEN REJECTED DUE TOPLT CLUMPING. 05/01/24 1045 Joan Spencer. Performed By: #### L 100.0625 ####[facility] [address] [place], [address] PLT Normal 150-450 [facility] Comment on above: Result Comment: This specimen has been REJECTED due to Laboratory criteria:Platelet Clumping.KELLE has been notified of need of recollection.05/01/24 1044 Joan Spencer Performed By: #### L 100.0625 ####[facility] [address] [place], [address] Basic Metabolic Profile (BMP )on 04-28-2024 BUN Normal 7-18 [facility] Comment on above: Result Comment: Canc elled via OM: Order edited - Discontinuing original order Performed By: #### L 500.2500, L100.0500 ####[facility] [address] [place], [address] BUN/CRE Normal 10-20 [facility] Comment on above: Result Comment: Canc elled via OM: Order edited - Discontinuing original order Performed By: #### L 500.2500, L100.0500 ####[facility] [address] [place], [address] CA,Total Normal 8.5-10.1 [facility] Comment on above: Result Comment: Canc elled via OM: Order edited - Discontinuing original order Performed By: #### L 500.2500, L100.0500 ####[facility] [address] [place], [address] CL Normal 98-107 [facility] Comment on above: Result Comment: Canc elled via OM: Order edited - Discontinuing original order Performed By: #### L 500.2500, L100.0500 ####[facility] [address] [place], [address] CO2 Normal 21.0-32.0 [facility] Comment on above: Result Comment: Canc elled via OM: Order edited - Discontinuing original order Performed By: #### L 500.2500, L100.0500 ####[facility] [address] [place], [address] CREAT,SERUM Normal 0.55-1.02 [facility] Comment on above: Result Comment: Canc elled via OM: Order edited - Discontinuing original order Performed By: #### L 500.2500, L100.0500 ####[facility] [address] [place], [address] EST GFR Normal >60 [facility] Comment on above: Result Comment: Canc elled via OM: Order edited - Discontinuing original order Performed By: #### L 500.2500, L100.0500 ####[facility] [address] [place], [address] EST GFR - AA Normal >60 [facility] Comment on above: Result Comment: Canc elled via OM: Order edited - Discontinuing original order Performed By: #### L 500.2500, L100.0500 ####[facility] [address] [place], [address] GAP Normal 5-15 [facility] Comment on above: Result Comment: Canc elled via OM: Order edited - Discontinuing original order Performed By: #### L 500.2500, L100.0500 ####[facility] [address] [place], [address] GLU Normal 74-106 [facility] Comment on above: Result Comment: Canc elled via OM: Order edited - Discontinuing original order Performed By: #### L 500.2500, L100.0500 ####[facility] [address] [place], [address] Potassium Normal 3.5-5.1 [facility] Comment on above: Result Comment: Canc elled via OM: Order edited - Discontinuing original order Performed By: #### L 500.2500, L100.0500 ####[facility] [address] [place], [address] Basic Metabolic Profile (BMP) Normal 136-145 [facility] Comment on above: Result Comment: Canc elled via OM: Order edited - Discontinuing original order Performed By: #### L 500.2500, L100.0500 ####[facility] [address] [place], [address] CBC-Complete Blood Cnt No Di ffon 04-28-2024 HCT Normal 37-47 [facility] Comment on above: Result Comment: Canc elled via OM: Order edited - Discontinuing original order Performed By: #### L 500.2500, L100.0500 ####[facility] [address] [place], [address] HGB Normal 12.0-15.0 [facility] Comment on above: Result Comment: Canc elled via OM: Order edited - Discontinuing original order Performed By: #### L 500.2500, L100.0500 ####[facility] [address] [place], [address] MCH Normal 27.0-32.0 [facility] Comment on above: Result Comment: Canc elled via OM: Order edited - Discontinuing original order Performed By: #### L 500.2500, L100.0500 ####[facility] [address] [place], [address] MCHC Normal 32-36 [facility] Comment on above: Result Comment: Canc elled via OM: Order edited - Discontinuing original order Performed By: #### L 500.2500, L100.0500 ####[facility] [address] [place], [address] MCV Normal 81-99 [facility] Comment on above: Result Comment: Canc elled via OM: Order edited - Discontinuing original order Performed By: #### L 500.2500, L100.0500 ####[facility] [address] [place], [address] PLT Normal 150-450 [facility] Comment on above: Result Comment: Canc elled via OM: Order edited - Discontinuing original order Performed By: #### L 500.2500, L100.0500 ####[facility] [address] [place], [address] RBC Normal 4.2-5.4 [facility] Comment on above: Result Comment: Canc elled via OM: Order edited - Discontinuing original order Performed By: #### L 500.2500, L100.0500 ####[facility] [address] [place], [address] RDW CV Normal 11.6-14.6 [facility] Comment on above: Result Comment: Canc elled via OM: Order edited - Discontinuing original order Performed By: #### L 500.2500, L100.0500 ####[facility] [address] [place], [address] RDW SD Normal 35.1-43.9 [facility] Comment on above: Result Comment: Canc elled via OM: Order edited - Discontinuing original order Performed By: #### L 500.2500, L100.0500 ####[facility] [address] [place], [address] WBC Normal 4.4-11.0 [facility] Comment on above: Result Comment: Canc elled via OM: Order edited - Discontinuing original order Performed By: #### L 500.2500, L100.0500 ####[facility] [address] [place], [address] RESPIRATORY PANEL MOLECULARo n 04-28-2024 RP PANEL Normal [facility] Comment on above: Performed By: #### M 100.638 ####[facility] [address] [place], [address] Basic Metabolic Profile (BMP )on 04-27-2024 BUN/CRE 18.0 RATIO Normal 10-20 [facility] Comment on above: Performed By: #### L 100.4500, L500.2500, L100.0500 ####[facility] [address] [place], [address] CA,Total 9.2 mg/dL Normal 8.5-10.1 [facility] [facility] Comment on above: Performed By: #### L 100.4500, L500.2500, L100.0500 ####[facility] [address] [place], [address] Chloride [Moles/Vol] 100 mmol/L Normal 98-107 [facility] Comment on above: Performed By: #### L 100.4500, L500.2500, L100.0500 ####[facility] [address] [place], [address] CO2 [Moles/Vol] 31.0 mmol/L Normal 21.0-32.0 [facility] Comment on above: Performed By: #### L 100.4500, L500.2500, L100.0500 ####[facility] [address] [place], [address] Creatinine [Mass/Vol] 0.78 mg/dL Normal 0.55-1.02 [facility] Comment on above: Result Comment: The validity of the calculated GFR GFRAA in patients over70 years has not been determined. Clinical correlation isessential. Performed By: #### L 100.4500, L500.2500, L100.0500 ####[facility] [address] [place], [address] ECRCL 43.62 ml/min Normal [facility] Comment on above: Performed By: #### L 100.4500, L500.2500, L100.0500 ####[facility] [address] [place], [address] EST GFR - AA 90 mL/min Normal >60 [facility] Comment on above: Result Comment: Afri can Micronesian GFR Calc Performed By: #### L 100.4500, L500.2500, L100.0500 ####[facility] [address] [place], [address] GAP 5 Normal 5-15 [facility] Comment on above: Performed By: #### L 100.4500, L500.2500, L100.0500 ####[facility] [address] [place], [address] GFR/1.73 sq M.predicted among non-blacks MDRD (S/P/Bld) [Vol rate/Area] 74 mL/min/{1.73_m2} Normal >60 [facility] Comment on above: Result Comment: Non- GFR Calc Performed By: #### L 100.4500, L500.2500, L100.0500 ####[facility] [address] [place], [address] Glucose [Mass/Vol] 142 mg/dL High 74-106 [facility] Comment on above: Result Comment: Fast ing Glucose result greater than or equal to 126 mg/dLsuggests DIABETES MELLITUS per A.D.A. criteria. Performed By: #### L 100.4500, L500.2500, L100.0500 ####[facility] [address] [place], [address] Potassium [Moles/Vol] 3.7 mmol/L Normal 3.5-5.1 [facility] Comment on above: Performed By: #### L 100.4500, L500.2500, L100.0500 ####[facility] [address] [place], [address] Sodium [Moles/Vol] 136 mmol/L Normal 136-145 [facility] Comment on above: Performed By: #### L 100.4500, L500.2500, L100.0500 ####[facility] [address] [place], [address] Urea nitrogen [Mass/Vol] 14 mg/dL Normal 7-18 [facility] Comment on above: Performed By: #### L 100.4500, L500.2500, L100.0500 ####[facility] [address] [place], [address] CBC-Complete Blood Cnt No Di ffon 04-27-2024 Erythrocyte distribution width (RBC) [Ratio] 12.3 % Normal 11.6-14.6 [facility] Comment on above: Performed By: #### L 100.4500, L500.2500, L100.0500 ####[facility] [address] [place], [address] Hematocrit (Bld) [Volume fraction] 37.9 % Normal 37-47 [facility] Comment on above: Performed By: #### L 100.4500, L500.2500, L100.0500 ####[facility] [address] [place], [address] Hemoglobin (Bld) [Mass/Vol] 12.5 g/dL Normal 12.0-15.0 [facility] Comment on above: Performed By: #### L 100.4500, L500.2500, L100.0500 ####[facility] [address] [place], [address] MCH (RBC) [Entitic mass] 30.9 pg Normal 27.0-32.0 [facility] Comment on above: Performed By: #### L 100.4500, L500.2500, L100.0500 ####[facility] [address] [place], [address] MCHC (RBC) [Mass/Vol] 33.0 g/dL Normal 32-36 [facility] Comment on above: Performed By: #### L 100.4500, L500.2500, L100.0500 ####[facility] [address] [place], [address] MCV (RBC) [Entitic vol] 93.6 fL Normal 81-99 [facility] Comment on above: Performed By: #### L 100.4500, L500.2500, L100.0500 ####[facility] [address] [place], [address] Platelet mean volume (Bld) [Entitic vol] 11.4 fL Normal 6.2-12.0 [facility] Comment on above: Performed By: #### L 100.4500, L500.2500, L100.0500 ####[facility] [address] [place], [address] Platelets (Bld) [#/Vol] 92 10*3/uL Low 150-450 [facility] Comment on above: Performed By: #### L 100.4500, L500.2500, L100.0500 ####[facility] [address] [place], [address] RBC (Bld) [#/Vol] 4.05 10*6/uL Low 4.2-5.4 [facility] Comment on above: Performed By: #### L 100.4500, L500.2500, L100.0500 ####[facility] [address] [place], [address] RDW SD 42.1 fl Normal 35.1-43.9 [facility] Comment on above: Performed By: #### L 100.4500, L500.2500, L100.0500 ####[facility] [address] [place], [address] WBC (Bld) [#/Vol] 11.3 10*3/uL High 4.4-11.0 [facility] Comment on above: Performed By: #### L 100.4500, L500.2500, L100.0500 ####[facility] [address] [place], [address] COVID 19 AG RAPID (XOCHITL Ly)on 04-27-2024 SARS-CoV-2 (COVID-19) RNA LEYDA+probe Ql (Unsp spec) Normal [facility] Comment on above: Performed By: #### M 100.505 ####[facility] [address] [place], [address] Chest PA and Lateralon 04-27 Chest PA and Lateral Normal [facility] Differential Commenton 04-27 SMEAR COMMENT SCANNED Normal [facility] Comment on above: Result Comment: THRO MBOCYTOPENIA NOTED Performed By: #### L 100.4500, L500.2500, L100.0500 ####[facility] [address] [place], [address] M8200.1000on 04-27-2024 M8200.1000 Normal Reference Ran ge = Negative MRSA DNA Nose Ql LEYDA+probe GeneXpert Instrument, PCR method MRSA PCR MRSA NEGATIVE Normal [facility] Comment on above: Performed By: #### M 8200.1000 ####[facility] [address] [place], [address] Urinalysis, Completeon 04-27 BACTERIA 0 SEEN Normal None Seen [facility] Comment on above: Order Comment: MALATHI TER SPECIMEN Performed By: #### L 400.0001 ####[facility] [address] [place], [address] EPI,SQUAMOUS 0 SEEN Normal 5-10 [facility] Comment on above: Order Comment: MALATHI TER SPECIMEN Performed By: #### L 400.0001 ####[facility] [address] [place], [address] Mucus Ql (Urine sed) 0 SEEN Normal [facility] Comment on above: Order Comment: MALATHI TER SPECIMEN Performed By: #### L 400.0001 ####[facility] [address] [place], [address] RBC 0 SEEN Normal 0-5 [facility] Comment on above: Order Comment: MALATHI TER SPECIMEN Performed By: #### L 400.0001 ####[facility] [address] [place], [address] WBC 0 SEEN Normal 0-5 [facility] Comment on above: Order Comment: MALATHI TER SPECIMEN Performed By: #### L 400.0001 ####[facility] [address] [place], [address] Hemoglobin A1con 04-25-2024 HbA1c (Bld) [Mass fraction] 6.3 % High 3.8-5.6 [facility] Comment on above: Result Comment: Norm al < 5.7 % Prediabetic 5.7 - 6.4 % Diabetic >or= 6.5 % Please note range changes. Performed By: #### L 501.9985 ####[facility] [address] [place], [address] CBC W/Diff, Automatedon - PATH REV Reviewed Normal [facility] Comment on above: Result Comment: Aarti Jimenez M.D. 04/21/24 AMENDED REPORT 04/21/24 1313 PATH REV previously reported as: August Performed By: #### L 100.0100, L500.2500 ####[facility] [address] [place], [address] PLT EST SLT DEC Normal ADEQ [facility] Comment on above: Performed By: #### L 501.5200, L100.0100, L500.4050, L501.2300 ####[facility] [address] [place], [address] Comprehensive Metabolic Prof ilon 04-21-2024 Albumin [Mass/Vol] 3.3 g/dL Normal 3.2-5.0 [facility] Comment on above: Performed By: #### L 501.5200, L100.0100, L500.4050, L501.2300 ####[facility] [address] [place], [address] Albumin/Globulin [Mass ratio] 1.0 {ratio} Normal 0.9-2.4 [facility] Comment on above: Performed By: #### L 501.5200, L100.0100, L500.4050, L501.2300 ####[facility] [address] [place], [address] ALK P 62 U/L Normal 45-117 [facility] Comment on above: Performed By: #### L 501.5200, L100.0100, L500.4050, L501.2300 ####[facility] [address] [place], [address] ALT [Catalytic activity/Vol] 12 U/L Low 13-56 [facility] Comment on above: Performed By: #### L 501.5200, L100.0100, L500.4050, L501.2300 ####[facility] [address] [place], [address] AST [Catalytic activity/Vol] 16 U/L Normal 15-37 [facility] Comment on above: Performed By: #### L 501.5200, L100.0100, L500.4050, L501.2300 ####[facility] [address] [place], [address] Bilirubin [Mass/Vol] 1.20 mg/dL High 0.20-1.00 [facility] Comment on above: Result Comment: For patients on eltrombopag therapy, use of Dimension [place] TBIL is not recommended. Performed By: #### L 501.5200, L100.0100, L500.4050, L501.2300 ####[facility] [address] [place], [address] BUN/CRE 14.5 RATIO Normal 10-20 [facility] Comment on above: Performed By: #### L 501.5200, L100.0100, L500.4050, L501.2300 ####[facility] [address] [place], [address] CA,Total 9.2 mg/dL Normal 8.5-10.1 [facility] Comment on above: Performed By: #### L 501.5200, L100.0100, L500.4050, L501.2300 ####[facility] [address] [place], [address] Chloride [Moles/Vol] 101 mmol/L Normal 98-107 [facility] Comment on above: Performed By: #### L 501.5200, L100.0100, L500.4050, L501.2300 ####[facility] [address] [place], [address] CO2 [Moles/Vol] 29.0 mmol/L Normal 21.0-32.0 [facility] Comment on above: Performed By: #### L 501.5200, L100.0100, L500.4050, L501.2300 ####[facility] [address] [place], [address] Creatinine [Mass/Vol] 0.83 mg/dL Normal 0.55-1.02 [facility] Comment on above: Result Comment: The validity of the calculated GFR GFRAA in patients over70 years has not been determined. Clinical correlation isessential. Performed By: #### L 501.5200, L100.0100, L500.4050, L501.2300 ####[facility] [address] [place], [address] ECRCL 41.98 ml/min Normal [facility] Comment on above: Performed By: #### L 501.5200, L100.0100, L500.4050, L501.2300 ####[facility] [address] [place], [address] EST GFR - AA 84 mL/min Normal >60 [facility] Comment on above: Result Comment: Afri can Micronesian GFR Calc Performed By: #### L 501.5200, L100.0100, L500.4050, L501.2300 ####[facility] [address] [place], [address] GAP 6 Normal 5-15 [facility] Comment on above: Performed By: #### L 501.5200, L100.0100, L500.4050, L501.2300 ####[facility] [address] [place], [address] GFR/1.73 sq M.predicted among non-blacks MDRD (S/P/Bld) [Vol rate/Area] 69 mL/min/{1.73_m2} Normal >60 [facility] Comment on above: Result Comment: Non- GFR Calc Performed By: #### L 501.5200, L100.0100, L500.4050, L501.2300 ####[facility] [address] [place], [address] Globulin (S) [Mass/Vol] 3.3 g/dL Normal 2.2-4.2 [facility] Comment on above: Performed By: #### L 501.5200, L100.0100, L500.4050, L501.2300 ####[facility] [address] [place], [address] Glucose [Mass/Vol] 167 mg/dL High 74-106 [facility] Comment on above: Result Comment: Fast ing Glucose result greater than or equal to 126 mg/dLsuggests DIABETES MELLITUS per A.D.A. criteria. Performed By: #### L 501.5200, L100.0100, L500.4050, L501.2300 ####[facility] [address] [place], [address] Potassium [Moles/Vol] 3.8 mmol/L Normal 3.5-5.1 [facility] Comment on above: Performed By: #### L 501.5200, L100.0100, L500.4050, L501.2300 ####[facility] [address] [place], [address] Sodium [Moles/Vol] 136 mmol/L Normal 136-145 [facility] Comment on above: Performed By: #### L 501.5200, L100.0100, L500.4050, L501.2300 ####[facility] [address] [place], [address] T PROT 6.6 g/dL Normal 6.4-8.2 [facility] Comment on above: Performed By: #### L 501.5200, L100.0100, L500.4050, L501.2300 ####[facility] [address] [place], [address] Urea nitrogen [Mass/Vol] 12 mg/dL Normal 7-18 [facility] Comment on above: Performed By: #### L 501.5200, L100.0100, L500.4050, L501.2300 ####[facility] [address] [place], [address] Magnesiumon 04-21-2024 Magnesium [Mass/Vol] 2.1 mg/dL Normal 1.6-2.6 [facility] Comment on above: Performed By: #### L 501.5200, L100.0100, L500.4050, L501.2300 ####[facility] [address] [place], [address] Phosphoruson 04-21-2024 Phosphate [Mass/Vol] 3.0 mg/dL Normal 2.5-4.9 [facility] Comment on above: Performed By: #### L 501.5200, L100.0100, L500.4050, L501.2300 ####[facility] [address] [place], [address] Basic Metabolic Profile (BMP )on 04-20-2024 BUN/CRE 17.9 RATIO Normal 10-20 [facility] Comment on above: Performed By: #### L 100.0100, L500.2500 ####[facility] [address] [place], [address] CA,Total 8.7 mg/dL Normal 8.5-10.1 [facility] Comment on above: Performed By: #### L 100.0100, L500.2500 ####[facility] [address] [place], [address] Chloride [Moles/Vol] 101 mmol/L Normal 98-107 [facility] Comment on above: Performed By: #### L 100.0100, L500.2500 ####[facility] [address] [place], [address] CO2 [Moles/Vol] 30.0 mmol/L Normal 21.0-32.0 [facility] Comment on above: Performed By: #### L 100.0100, L500.2500 ####[facility] [address] [place], [address] Creatinine [Mass/Vol] 0.78 mg/dL Normal 0.55-1.02 [facility] Comment on above: Result Comment: The validity of the calculated GFR GFRAA in patients over70 years has not been determined. Clinical correlation isessential. Performed By: #### L 100.0100, L500.2500 ####[facility] [address] [place], [address] ECRCL 43.43 ml/min Normal [facility] Comment on above: Performed By: #### L 100.0100, L500.2500 ####[facility] [address] [place], [address] EST GFR - AA 89 mL/min Normal >60 [facility] Comment on above: Result Comment: Afri can Micronesian GFR Calc Performed By: #### L 100.0100, L500.2500 ####[facility] [address] [place], [address] GAP 6 Normal 5-15 [facility] Comment on above: Performed By: #### L 100.0100, L500.2500 ####[facility] [address] [place], [address] GFR/1.73 sq M.predicted among non-blacks MDRD (S/P/Bld) [Vol rate/Area] 74 mL/min/{1.73_m2} Normal >60 [facility] Comment on above: Result Comment: Non- GFR Calc Performed By: #### L 100.0100, L500.2500 ####[facility] [address] [place], [address] Glucose [Mass/Vol] 129 mg/dL High 74-106 [facility] Comment on above: Result Comment: Fast ing Glucose result greater than or equal to 126 mg/dLsuggests DIABETES MELLITUS per A.D.A. criteria. Performed By: #### L 100.0100, L500.2500 ####[facility] [address] [place], [address] Potassium [Moles/Vol] 3.7 mmol/L Normal 3.5-5.1 [facility] Comment on above: Performed By: #### L 100.0100, L500.2500 ####[facility] [address] [place], [address] Sodium [Moles/Vol] 137 mmol/L Normal 136-145 [facility] Comment on above: Performed By: #### L 100.0100, L500.2500 ####[facility] [address] [place], [address] Urea nitrogen [Mass/Vol] 14 mg/dL Normal 7-18 [facility] Comment on above: Performed By: #### L 100.0100, L500.2500 ####[facility] [address] [place], [address] Discharge Instructionon Discharge Instruction Normal [facility] Carotid Duplex Ultrasoundon 04-19-2024 Carotid Duplex Ultrasound Normal [facility] Lipid Profileon 04-19-2024 Cholesterol [Mass/Vol] 133 mg/dL Normal 200 [facility] Comment on above: Order Comment: Comme nts: NPO at [place] prior to lipid panel Result Comment: <200 mg/dL Desirable 200-240 mg/dL Borderline >240 mg/dL High Risk Performed By: #### L 500.4100 ####[facility] [address] [place], [address] Cholesterol in HDL [Mass/Vol] 66 mg/dL Normal [facility] Comment on above: Order Comment: Comme nts: NPO at [place] prior to lipid panel Result Comment: The drugs N-Acetylcysteine and Metamizole may falselydepress this assay. Reference Range HDL <40 mg/dL Low HDL Cholesterol HDL >or= 60 mg/dL High HDL Cholesterol Performed By: #### L 500.4100 ####[facility] [address] [place], [address] Cholesterol in LDL [Mass/Vol] 46 mg/dL Normal 0-130 [facility] Comment on above: Order Comment: Comme nts: NPO at [place] prior to lipid panel Performed By: #### L 500.4100 ####[facility] [address] [place], [address] Cholesterol in VLDL [Mass/Vol] 21 mg/dL Normal 5-40 [facility] Comment on above: Order Comment: Comme nts: NPO at [place] prior to lipid panel Performed By: #### L 500.4100 ####[facility] [address] [place], [address] Triglyceride [Mass/Vol] 106 mg/dL Normal [facility] Comment on above: Order Comment: Comme nts: NPO at [place] prior to lipid panel Result Comment: The drugs N-Acetylcysteine and Metamizole may falselydepress this assay.Serum Triglycerides Reference Interval Normal <150 mg/dL Borderline high 150 - 199 mg/dL High 200 - 499 mg/dL Very High > or = 500 mg/dL Performed By: #### L 500.4100 ####[facility] [address] [place], [address] MR/CON.PCM.NEon 04-19-2024 MR/CON.PCM.NE Normal [facility] 12 Lead EKGon 04-18-2024 12 Lead EKG Normal [facility] Brain without Contraston Brain without Contrast Normal [facility] CBC-Complete Blood Cnt No Di ffon 12-31-2024 Erythrocyte distribution width (RBC) [Ratio] 12.3 % Normal 11.6-14.6 [facility] Comment on above: Performed By: #### L 100.4500, L501.4020, L500.4050, L100.0500 ####[facility] [address] [place], [address] Hematocrit (Bld) [Volume fraction] 43.2 % Normal 37-47 [facility] Comment on above: Performed By: #### L 100.4500, L501.4020, L500.4050, L100.0500 ####[facility] [address] [place], [address] Hemoglobin (Bld) [Mass/Vol] 14.1 g/dL Normal 12.0-15.0 [facility] Comment on above: Performed By: #### L 100.4500, L501.4020, L500.4050, L100.0500 ####[facility] [address] [place], [address] MCH (RBC) [Entitic mass] 30.7 pg Normal 27.0-32.0 [facility] Comment on above: Performed By: #### L 100.4500, L501.4020, L500.4050, L100.0500 ####[facility] [address] [place], [address] MCHC (RBC) [Mass/Vol] 32.6 g/dL Normal 32-36 [facility] Comment on above: Performed By: #### L 100.4500, L501.4020, L500.4050, L100.0500 ####[facility] [address] [place], [address] MCV (RBC) [Entitic vol] 94.1 fL Normal 81-99 [facility] Comment on above: Performed By: #### L 100.4500, L501.4020, L500.4050, L100.0500 ####[facility] [address] [place], [address] Platelet mean volume (Bld) [Entitic vol] 10.5 fL Normal 6.2-12.0 [facility] Comment on above: Performed By: #### L 100.4500, L501.4020, L500.4050, L100.0500 ####[facility] [address] [place], [address] Platelets (Bld) [#/Vol] 81 10*3/uL Low 150-450 [facility] Comment on above: Performed By: #### L 100.4500, L501.4020, L500.4050, L100.0500 ####[facility] [address] [place], [address] RBC (Bld) [#/Vol] 4.59 10*6/uL Normal 4.2-5.4 [facility] Comment on above: Performed By: #### L 100.4500, L501.4020, L500.4050, L100.0500 ####[facility] [address] [place], [address] RDW SD 42.5 fl Normal 35.1-43.9 [facility] Comment on above: Performed By: #### L 100.4500, L501.4020, L500.4050, L100.0500 ####[facility] [address] [place], [address] WBC (Bld) [#/Vol] 8.0 10*3/uL Normal 4.4-11.0 [facility] Comment on above: Performed By: #### L 100.4500, L501.4020, L500.4050, L100.0500 ####[facility] [address] [place], [address] CNPDede 04-18-2024 CNPN Telephone (HCSIND) KRYSTYNA KHANNA ([id number]) 1935 F Date Time Provider Department 04/18/24 TRACIE PARKER During your visit today, we recorded the following information about you: Tracie Parker LPN 04/18/2024 9:49 AM Signed Lulu [...] offer similar services in the patient's area. [facility] (Home Health) [address] [place] [phone] [facility] [address] [place] [id number] Tracie Parker LPN 04/18/2024 5:06 PM Signed Referral discarded. Patient re-admitted to [facility]. CM will have to send referral for [...] Encounter Status:Closed by TRACIE PARKER on 04/18/24 [facility] Telephone (HCSIND) KRYSTYNA KHANNA ([id number]) 1935 F Date Time Provider Department 04/18/24 [...] 60 days? no Are you agreeable to [facility] services? yes What address will we be seeing you at? [address] [place], [place] [id number] Do you have any upcoming appointments or [...] Encounter Status:Closed by JANNETTE WEINBERG [facility] KRYTSYNA KHANNA ([id number]) 1935 F Date Time Provider Department 04/18/24 [facility] During your visit today, we recorded [...] Status:Closed by NIKIA PINEDA on 04/18/24 Normal [facility] CTA Head AND Neck W/ Contras ton 04-18-2024 CTA Head AND Neck W/ Contrast Normal [facility] Chest 1 View (Portable)on Chest 1 View (Portable) Normal [facility] Comprehensive Metabolic Prof ilon 04-18-2024 Albumin [Mass/Vol] 3.4 g/dL Normal 3.2-5.0 [facility] Comment on above: Order Comment: 'TROP ' Serial specimen #1, #2 or #3: 1 Performed By: #### L 100.4500, L501.4020, L500.4050, L100.0500 ####[facility] [address] [facility] [place], [address] Albumin/Globulin [Mass ratio] 0.9 {ratio} Normal 0.9-2.4 [facility] Comment on above: Order Comment: 'TROP ' Serial specimen #1, #2 or #3: 1 Performed By: #### L 100.4500, L501.4020, L500.4050, L100.0500 ####[facility] [address] [place], [address] ALK P 61 U/L Normal 45-117 [facility] Comment on above: Order Comment: 'TROP ' Serial specimen #1, #2 or #3: 1 Performed By: #### L 100.4500, L501.4020, L500.4050, L100.0500 ####[facility] [address] [place], [address] ALT [Catalytic activity/Vol] 14 U/L Normal 13-56 [facility] Comment on above: Order Comment: 'TROP ' Serial specimen #1, #2 or #3: 1 Performed By: #### L 100.4500, L501.4020, L500.4050, L100.0500 ####[facility] [address] [place], [address] AST [Catalytic activity/Vol] 18 U/L Normal 15-37 [facility] Comment on above: Order Comment: 'TROP ' Serial specimen #1, #2 or #3: 1 Performed By: #### L 100.4500, L501.4020, L500.4050, L100.0500 ####[facility] [address] [place], [address] Bilirubin [Mass/Vol] 1.30 mg/dL High 0.20-1.00 [facility] Comment on above: Order Comment: 'TROP ' Serial specimen #1, #2 or #3: 1 Result Comment: For patients on eltrombopag therapy, use of Dimension [place] TBIL is not recommended. Performed By: #### L 100.4500, L501.4020, L500.4050, L100.0500 ####[facility] [address] [place], [address] BUN/CRE 15.4 RATIO Normal 10-20 [facility] Comment on above: Order Comment: 'TROP ' Serial specimen #1, #2 or #3: 1 Performed By: #### L 100.4500, L501.4020, L500.4050, L100.0500 ####[facility] [address] [place], [address] CA,Total 8.8 mg/dL Normal 8.5-10.1 [facility] Comment on above: Order Comment: 'TROP ' Serial specimen #1, #2 or #3: 1 Performed By: #### L 100.4500, L501.4020, L500.4050, L100.0500 ####[facility] [address] [place], [address] Chloride [Moles/Vol] 101 mmol/L Normal 98-107 [facility] Comment on above: Order Comment: 'TROP ' Serial specimen #1, #2 or #3: 1 Performed By: #### L 100.4500, L501.4020, L500.4050, L100.0500 ####[facility] [address] [place], [address] CO2 [Moles/Vol] 30.0 mmol/L Normal 21.0-32.0 [facility] Comment on above: Order Comment: 'TROP ' Serial specimen #1, #2 or #3: 1 Performed By: #### L 100.4500, L501.4020, L500.4050, L100.0500 ####[facility] [address] [place], [address] Creatinine [Mass/Vol] 0.91 mg/dL Normal 0.55-1.02 [facility] Comment on above: Order Comment: 'TROP ' Serial specimen #1, #2 or #3: 1 Result Comment: The validity of the calculated GFR GFRAA in patients over70 years has not been determined. Clinical correlation isessential. Performed By: #### L 100.4500, L501.4020, L500.4050, L100.0500 ####[facility] [address] [place], [address] ECRCL 38.84 ml/min Normal [facility] Comment on above: Order Comment: 'TROP ' Serial specimen #1, #2 or #3: 1 Performed By: #### L 100.4500, L501.4020, L500.4050, L100.0500 ####[facility] [address] [place], [address] EST GFR - AA 75 mL/min Normal >60 [facility] Comment on above: Order Comment: 'TROP ' Serial specimen #1, #2 or #3: 1 Result Comment: Afri can Micronesian GFR Calc Performed By: #### L 100.4500, L501.4020, L500.4050, L100.0500 ####[facility] [address] [place], [address] GAP 8 Normal 5-15 [facility] Comment on above: Order Comment: 'TROP ' Serial specimen #1, #2 or #3: 1 Performed By: #### L 100.4500, L501.4020, L500.4050, L100.0500 ####[facility] [address] [place], [address] GFR/1.73 sq M.predicted among non-blacks MDRD (S/P/Bld) [Vol rate/Area] 62 mL/min/{1.73_m2} Normal >60 [facility] Comment on above: Order Comment: 'TROP ' Serial specimen #1, #2 or #3: 1 Result Comment: Non- GFR Calc Performed By: #### L 100.4500, L501.4020, L500.4050, L100.0500 ####[facility] [address] [place], [address] Globulin (S) [Mass/Vol] 3.6 g/dL Normal 2.2-4.2 [facility] Comment on above: Order Comment: 'TROP ' Serial specimen #1, #2 or #3: 1 Performed By: #### L 100.4500, L501.4020, L500.4050, L100.0500 ####[facility] [address] [place], [address] Glucose [Mass/Vol] 145 mg/dL High 74-106 [facility] Comment on above: Order Comment: 'TROP ' Serial specimen #1, #2 or #3: 1 Result Comment: Fast ing Glucose result greater than or equal to 126 mg/dLsuggests DIABETES MELLITUS per A.D.A. criteria. Performed By: #### L 100.4500, L501.4020, L500.4050, L100.0500 ####[facility] [address] [place], [address] Potassium [Moles/Vol] 3.9 mmol/L Normal 3.5-5.1 [facility] Comment on above: Order Comment: 'TROP ' Serial specimen #1, #2 or #3: 1 Performed By: #### L 100.4500, L501.4020, L500.4050, L100.0500 ####[facility] [address] [place], [address] Sodium [Moles/Vol] 138 mmol/L Normal 136-145 [facility] Comment on above: Order Comment: 'TROP ' Serial specimen #1, #2 or #3: 1 Performed By: #### L 100.4500, L501.4020, L500.4050, L100.0500 ####[facility] [address] [place], [address] T PROT 7.0 g/dL Normal 6.4-8.2 [facility] Comment on above: Order Comment: 'TROP ' Serial specimen #1, #2 or #3: 1 Performed By: #### L 100.4500, L501.4020, L500.4050, L100.0500 ####[facility] [address] [place], [address] Urea nitrogen [Mass/Vol] 14 mg/dL Normal 7-18 [facility] Comment on above: Order Comment: 'TROP ' Serial specimen #1, #2 or #3: 1 Performed By: #### L 100.4500, L501.4020, L500.4050, L100.0500 ####[facility] [address] [place], [address] Differential Commenton 04-18 SMEAR COMMENT SCANNED Normal [facility] Comment on above: Result Comment: THRO MBOCYTOPENIA NOTED Performed By: #### L 100.4500, L501.4020, L500.4050, L100.0500 ####[facility] [address] [place], [address] Echo Complete W/ Contraston 04-18-2024 Echo Complete W/ Contrast Normal [facility] Emergency Department Summary on 04-18-2024 Emergency Department Summary Normal [facility] H AND P Exam - Hospitaliston 04-18-2024 H&P Exam - Hospitalist Normal [facility] L501.4020on 04-18-2024 TROPONIN-I HS 38 pg/mL Normal 3.0-54.0 [facility] Comment on above: Order Comment: 'TROP ' Serial specimen #1, #2 or #3: 1 Result Comment: Plekenn se Note: New Test Units and Gender Specific Reference Ranges. For more information see Policy Stat Procedure [place] High Sensitivity Troponin (TNIH) and attachments. Performed By: #### L 100.4500, L501.4020, L500.4050, L100.0500 ####[facility] [address] [place], [address] M100.678on 04-18-2024 M100.678 Pending SARS-CoV-2 (COVID 19) Negative INFLUENZA A Negative INFLUENZA B Negative RSV PCR Negative Normal [facility] Comment on above: Performed By: #### M 100.678, L400.0001 ####[facility] [address] [place], [address] Urinalysis, Completeon 04-18 BACTERIA 0 SEEN Normal None Seen [facility] Comment on above: Order Comment: COLLE CTOR TO SPECIFY Performed By: #### M 100.678, L400.0001 ####[facility] [address] [place], [address] EPI,SQUAMOUS 0 SEEN Normal 5-10 [facility] Comment on above: Order Comment: COLLE CTOR TO SPECIFY Performed By: #### M 100.678, L400.0001 ####[facility] [address] [place], [address] Mucus Ql (Urine sed) 0 SEEN Normal [facility] Comment on above: Order Comment: COLLE CTOR TO SPECIFY Performed By: #### M 100.678, L400.0001 ####[facility] [address] [place], [address] RBC 0 SEEN Normal 0-5 [facility] Comment on above: Order Comment: COLLE CTOR TO SPECIFY Performed By: #### M 100.678, L400.0001 ####[facility] [address] [place], [address] WBC 0 SEEN Normal 0-5 [facility] Comment on above: Order Comment: COLLE CTOR TO SPECIFY Performed By: #### M 100.678, L400.0001 ####[facility] [address] [place], [address] CNOVon 04-17-2024 CNOV Office Visit ([facility] ) KRYSTYNA KHANNA ([id number]) 1935 F Date Time Provider Department 04/17/24 9:00 AM LULU STATON During your visit today, we recorded the following information about you: Pulse Respiration Blood pressure 56/minute 18/minute 146/72 Lulu Staton APRN.DIVISION COMMANDER 04/17/2024 3:26 PM Addendum Chief Complaint Patient [...] 780.79, ICD1 (more content not included)... Normal [facility] CNPNon 04-17-2024 ABDI Telephone (HCSIND) KRYSTYNA KHANNA ([id number]) 1935 F Date Time Provider Department 04/17/24 LUUL STATON During your visit today, we recorded the following information about you: Pau Grady LPN 04/17/2024 10:30 AM Signed Thank you for the referral for Krystyna Khanna to receive home care services through [facility]. Based off diagnosis patient would benefit from SN services, can SN be added to HHC orders/office note? Per CMS guidelines your office note needs to include a discussion of HHC with the following: - why is HHC needed - why is the patient homebound - what is the diagnosis that HHC is seeing the patient for. Thank you, KAYLA Rodriguez Danielle, APRN.[facility] 04/17/2024 10:40 AM Signed No fdc needs. Patient is having weakness following hospitalization [...] Status:Closed by PAU GRADY on 04/17/24 [facility] KRYSTYNA KHANNA ([id number]) 1935 F Date Time Provider Department 04/17/[address] [facility] During your visit today, we recorded the following information about you: Lulu Staton APRN.[facility] 04/17/2024 10:43 AM Signed Please let patient [...] Status:Closed by ASHLI REYES on 04/17/24 Normal [facility] XR CHEST 2V FRONTAL/LATon XR CHEST [...] Stable scoliosis. IMPRESSION: No acute radiographic abnormality. Management Trainee Marketing: BE[employer] Transcribe Date/Time: Apr 17 2024 10:37A Dictated by : INDIO MALIK MD This examination was interpreted and the report reviewed and electronically signed by: INDIO MALIK MD on Apr 17 2024 10:39AM EST [id number] Normal [facility] XR Chest PA and Lateralon IMPRESSION: No acute radiographic abnormality. Management Trainee Marketing: [facility] Transcribe Date/Time: Apr 17 2024 10:37A Dictated [...] body. Stable scoliosis. DIVISION OF RADIOLOGY Provider, [facility] - 04/17/2024 * * *Final Report* * [...] scoliosis. IMPRESSION IMPRESSION: No acute radiographic abnormality. Management Trainee Marketing: [employer] Transcribe Date/Time: Apr 17 2024 10:37A Dictated by : INDIO MALIK MD This examination was interpreted and the report reviewed and electronically signed by: INDIO MALIK MD on Apr 17 2024 10:39AM EST [facility] Radiology Study observation (narrative) [facility] XR Chest PA and LateralOrder ed By: Ccf Provider on 04-17-2024 [facility] CBC W/Diff, Automatedon 03-20 PATH REV Reviewed Normal [facility] Comment on above: Result Comment: Plat elet clumping is notedClinical correlation necessary.Hunter Jimenez M.D. 04/11/24Pathologist comment added AMENDED REPORT 04/11/24 1047 PATH REV previously reported as: August Performed By: #### L 500.2500, L100.0100 ####[facility] [address] [place], [address] PATH REV Reviewed Normal [facility] Comment on above: Result Comment: Mode rate Thrombocytopenia.Clinical correlation necessary.Hunter Jimenez M.D. 04/11/24Pathologist comment added AMENDED REPORT 04/11/24 1025 PATH REV previously reported as: August Performed By: #### L 100.0100, L500.2500 ####[facility] [address] [place], [address] Basic Metabolic Profile (BMP )on 04-08-2024 BUN/CRE 16.0 RATIO Normal 10-20 [facility] Comment on above: Performed By: #### L 500.2500, L100.0100 ####[facility] [address] [place], [address] CA,Total 8.9 mg/dL Normal 8.5-10.1 [facility] Comment on above: Performed By: #### L 500.2500, L100.0100 ####[facility] [address] [place], [address] Chloride [Moles/Vol] 103 mmol/L Normal 98-107 [facility] Comment on above: Performed By: #### L 500.2500, L100.0100 ####[facility] [address] [place], [address] CO2 [Moles/Vol] 31.0 mmol/L Normal 21.0-32.0 [facility] Comment on above: Performed By: #### L 500.2500, L100.0100 ####[facility] [address] [place], [address] Creatinine [Mass/Vol] 0.69 mg/dL Normal 0.55-1.02 [facility] Comment on above: Result Comment: The validity of the calculated GFR GFRAA in patients over70 years has not been determined. Clinical correlation isessential. Performed By: #### L 500.2500, L100.0100 ####[facility] [address] [place], [address] ECRCL 43.73 ml/min Normal [facility] Comment on above: Performed By: #### L 500.2500, L100.0100 ####[facility] [address] [place], [address] EST GFR - AA 104 mL/min Normal >60 [facility] Comment on above: Result Comment: Afri can Micronesian GFR Calc Performed By: #### L 500.2500, L100.0100 ####[facility] [address] [place], [address] GAP 4 Low 5-15 [facility] Comment on above: Performed By: #### L 500.2500, L100.0100 ####[facility] [address] [place], [address] GFR/1.73 sq M.predicted among non-blacks MDRD (S/P/Bld) [Vol rate/Area] 86 mL/min/{1.73_m2} Normal >60 [facility] Comment on above: Result Comment: Non- GFR Calc Performed By: #### L 500.2500, L100.0100 ####[facility] [address] [place], [address] Glucose [Mass/Vol] 110 mg/dL High 74-106 [facility] Comment on above: Result Comment: Fast ing Glucose result from 100 to 125 mg/dLsuggests IMPAIRED HOMEOSTASIS per A.D.A. criteria. Performed By: #### L 500.2500, L100.0100 ####[facility] [address] [place], [address] Potassium [Moles/Vol] 3.8 mmol/L Normal 3.5-5.1 [facility] Comment on above: Performed By: #### L 500.2500, L100.0100 ####[facility] [address] [place], [address] Sodium [Moles/Vol] 137 mmol/L Normal 136-145 [facility] Comment on above: Performed By: #### L 500.2500, L100.0100 ####[facility] [address] [place], [address] Urea nitrogen [Mass/Vol] 11 mg/dL Normal 7-18 [facility] Comment on above: Performed By: #### L 500.2500, L100.0100 ####[facility] [address] [place], [address] Basic Metabolic Profile (BMP )on 04-07-2024 BUN/CRE 14.6 RATIO Normal 10-20 [facility] Comment on above: Performed By: #### L 100.0100, L500.2500 ####[facility] [address] [place], [address] CA,Total 9.6 mg/dL Normal 8.5-10.1 [facility] Comment on above: Performed By: #### L 100.0100, L500.2500 ####[facility] [address] [place], [address] Chloride [Moles/Vol] 102 mmol/L Normal 98-107 [facility] Comment on above: Performed By: #### L 100.0100, L500.2500 ####[facility] [address] [place], [address] CO2 [Moles/Vol] 32.0 mmol/L Normal 21.0-32.0 [facility] Comment on above: Performed By: #### L 100.0100, L500.2500 ####[facility] [address] [place], [address] Creatinine [Mass/Vol] 0.75 mg/dL Normal 0.55-1.02 [facility] Comment on above: Result Comment: The validity of the calculated GFR GFRAA in patients over70 years has not been determined. Clinical correlation isessential. Performed By: #### L 100.0100, L500.2500 ####[facility] [address] [place], [address] ECRCL 42.94 ml/min Normal [facility] Comment on above: Performed By: #### L 100.0100, L500.2500 ####[facility] [address] [place], [address] EST GFR - AA 93 mL/min Normal >60 [facility] Comment on above: Result Comment: Afri can Micronesian GFR Calc Performed By: #### L 100.0100, L500.2500 ####[facility] [address] [place], [address] GAP 3 Low 5-15 [facility] Comment on above: Performed By: #### L 100.0100, L500.2500 ####[facility] [address] [place], [address] GFR/1.73 sq M.predicted among non-blacks MDRD (S/P/Bld) [Vol rate/Area] 77 mL/min/{1.73_m2} Normal >60 [facility] Comment on above: Result Comment: Non- GFR Calc Performed By: #### L 100.0100, L500.2500 ####[facility] [address] [place], [address] Glucose [Mass/Vol] 120 mg/dL High 74-106 [facility] Comment on above: Result Comment: Fast ing Glucose result from 100 to 125 mg/dLsuggests IMPAIRED HOMEOSTASIS per A.D.A. criteria. Performed By: #### L 100.0100, L500.2500 ####[facility] [address] [place], [address] Potassium [Moles/Vol] 4.2 mmol/L Normal 3.5-5.1 [facility] Comment on above: Performed By: #### L 100.0100, L500.2500 ####[facility] [address] [place], [address] Sodium [Moles/Vol] 137 mmol/L Normal 136-145 [facility] Comment on above: Performed By: #### L 100.0100, L500.2500 ####[facility] [address] [place], [address] Urea nitrogen [Mass/Vol] 11 mg/dL Normal 7-18 [facility] Comment on above: Performed By: #### L 100.0100, L500.2500 ####[facility] [address] [place], [address] CNOVon 04-07-2024 CNOV Office Visit ([facility] ) HERLINDAKRYSTYNA E ([id number]) 1935 F Date Time Provider Department 04/07/24 3:45 PM ULICES MOYA [facility] During your visit today, we recorded the [...] refer to Er. Family to drive to [facility], unclear what ER will go to at this time. 2. Rhonchi - ICD9: 786.7, ICD10: R09.89 - ALBUTEROL SULFATE 2.5 MG/3 ML (0.083 %) SOLUTION FOR NEBULIZATION - no improvement in respiration or vs. Ulices Moya APRN.DIVISION COMMANDER Allergies As of Date: 04/07/2024 Noted Allergy Reaction DARVOCET A500 (PROPOXYPHENE N-APOLINAR*04/26/2012 16 - Unknown PROPOXYPHENE 07/03/2022 16 - Unknown SULFA (SULFONAMIDE AN (more content not included)... Normal [facility] Chest PA and Lateralon 04-07 Chest PA and Lateral Normal [facility] Emergency Department Summary on 04-07-2024 Emergency Department Summary Normal [facility] H AND P Exam - Hospitaliston 04-07-2024 H&P Exam - Hospitalist Normal [facility] M100.678on 04-07-2024 M100.678 Pending SARS-CoV-2 (COVID 19) Negative INFLUENZA A Negative INFLUENZA B Negative RSV PCR A Positive A RSV Normal [facility] Comment on above: Performed By: #### M 100.678 ####[facility] [address] [place], [address] XR Chest PA and Lateralon IMPRESSION: No acute radiographic abnormality. Management Trainee Marketing: [employer]O Transcribe Date/Time: Jan 11 2024 10:41A Dictated by : ROSENDO SHAH MD This examination was interpreted and the report reviewed and electronically signed by: ROSENDO SHHA MD on Jan 11 2024 10:43AM [facility] DIVISION OF RADIOLOGY * * *Final [...] spine. IMPRESSION IMPRESSION: No acute radiographic abnormality. Management Trainee Marketing: BEBETO Transcribe Date/Time: Jan 11 2024 10:41A Dictated by : ROSENDO SHAH MD This examination was interpreted and the report reviewed and electronically signed by: ROSENDO SHAH MD on Jan 11 2024 10:43AM EST [facility] Radiology Study observation (narrative) [facility] XR Chest PA and LateralOrder ed By: Cc Provider on 01-11-2024 [facility] No Panel Informationon 12-02 IMPRESSION: 1. [...] fracture lines. No new or progressive displacement Management Trainee Marketing: [employer] Transcribe Date/Time: Dec 03 2023 4:12P Dictated by : PAPI CAMPUZANO MD This examination was interpreted and the report reviewed and electronically signed by: PAPI CAMPUZANO MD on Dec 03 2023 4:27PM EST DIVISION OF RADIOLOGY Radiology Study observation (narrative) [facility] No Panel InformationOrdered By: Ccf Provider on 12-03-2023 [facility] XR Elbow - left AP and [...] Preexistent scapholunate dissociation DIVISION OF RADIOLOGY Provider, [facility] - 12/03/2023 * * *Final Report* * [...] fracture lines. No new or progressive displacement Management Trainee Marketing: [facility] Transcribe Date/Time: Dec 03 2023 4:12P Dictated by : PAPI CAMPUZANO MD This examination was interpreted and the report reviewed and electronically signed by: PAPI CAMPUZANO MD on Dec 03 2023 4:27PM [facility] XR Wrist - left PA and Later [...] Preexistent scapholunate dissociation DIVISION OF RADIOLOGY [facility]/03/2023 * [...] fracture lines. No new or progressive displacement Management Trainee Marketing: BEBETO Transcribe Date/Time: Dec 03 2023 4:12P Dictated by : PAPI CAMPUZANO MD This examination was interpreted and the report reviewed and electronically signed by: PAPI CAMPUZANO MD on Dec 03 2023 4:27PM EST [facility] SPIROMETRY - BASELINE AND PO ST DILATORon 08-03-2023 OVL41-38% POST (L/S) 1.64 L/S [facility] FMR87-36% PRE (L/S) 1.57 L/S [facility] FEV1 PRE (L) 1.21 L [facility] FEV1/FVC POST (%) 95 % [facility] FEV1/FVC PRE (%) 95 % [facility] FEV1_POST (L) 1.22 L [facility] FVC POST (L) 1.29 L [facility] FVC PRE (L) 1.27 L [facility] PEF POST (L/S) 3.24 L/S [facility] PEF PRE (L/S) 3.32 L/S [facility] XR Chest PA and Lateralon IMPRESSION: Cardiome dayana No acute radiographic abnormality. Management Trainee Marketing: BE[employer]O Transcribe Date/Time: Jul 27 2023 4:11P Dictated by : LAM KEARNEY MD This examination was interpreted and the report reviewed and electronically signed by: LAM KEARNEY MD on Jul 27 2023 4:14PM [facility] DIVISION OF RADIOLOGY * * *Final [...] DIVISION OF RADIOLOGY Provider, Erin Clarisse luz [place] - 07/27/2023 * * *Final Report* * [...] IMPRESSION IMPRESSION: Cardiomegaly No acute radiographic abnormality. Management Trainee Marketing: [employer] Transcribe Date/Time: Jul 27 2023 4:11P Dictated by : LAM KEARNEY MD This examination was interpreted and the report reviewed and electronically signed by: LAM KEARNEY MD on Jul 27 2023 4:14PM EST [facility] [facility] Radiology Study observation (narrative) [facility] XR Chest PA and LateralOrder ed By: Ccf Provider on 07-27-2023 [facility] HEMOGLOBIN A1C (POC)on 05-27 HbA1c (Bld) [Mass fraction] 5.9 % Abnormal 4.3 - 5.6 % [facility] XR Chest PA and Lateralon IMPRESSION: Stable exam with no acute radiographic abnormality. Management Trainee Marketing: PSCB Transcribe Date/Time: Mar 27 2023 12:22P [...] soft tissues: Unremarkable. DIVISION OF RADIOLOGY Provider, [facility] - 03/27/2023 * * *Final Report* * [...] Stable exam with no acute radiographic abnormality. Management Trainee Marketing: BEBETO Transcribe Date/Time: Mar 27 2023 12:22P Dictated by : VERONIKA SAHU MD This examination was interpreted and the report reviewed and electronically signed by: VERONIKA SAHU MD on Mar 27 2023 12:23PM EST [facility] XR Chest PA and LateralOrder ed By: Ccf Provider on 03-27-2023 [facility] XR CHEST 2V FRONTAL/LATon [facility] XR Chest PA and Lateralon Radiology Study observation (narrative) [facility] XR Chest PA and Lateralon IMPRESSION: Questionable changes of bronchitis in the right perihilar region. A follow-up exam is recommended. Management Trainee Marketing: [facility] Transcribe Date/Time: Mar 20 2023 8:16A Dictated by : VERONIKA SAHU MD This examination was interpreted and the report reviewed and electronically signed by: VERONIKA SAHU MD on Mar 20 2023 8:20AM [facility] DIVISION OF RADIOLOGY * * *Final [...] perihilar region. A follow-up exam is recommended. Management Trainee Marketing: BEBETO Transcribe Date/Time: Mar 20 2023 8:16A Dictated by : VERONIKA SAHU MD This examination was interpreted and the report reviewed and electronically signed by: VERONIKA SAHU MD on Mar 20 2023 8:20AM EST [facility] XR Chest PA and LateralOrder ed By: Ccf Provider on 03-20-2023 [facility] XR Chest PA and Lateralon Radiology Study observation (narrative) [facility] XR CHEST 2V FRONTAL/LATon [facility] XR Chest PA and Lateralon IMPRESSION: Decreased prominence of left lower lobe airspace disease. Follow-up until resolution is recommended. Management Trainee Marketing: BEBETO Transcribe Date/Time: Mar 05 2023 9:56A Dictated by : ROSENDO SHAH MD This examination was interpreted and the report reviewed and electronically signed by: ROSENDO SHAH MD on Mar 05 2023 9:58AM [facility] DIVISION OF RADIOLOGY * * *Final [...] the thoracic spine. DIVISION OF RADIOLOGY Provider, [facility] - 03/05/2023 * * *Final Report* * [...] airspace disease. Follow-up until resolution is recommended. Management Trainee Marketing: P[employer] Transcribe Date/Time: Mar 05 2023 9:56A Dictated by : ROSENDO SHAH MD This examination was interpreted and the report reviewed and electronically signed by: ROSENDO SHAH MD on Mar 05 2023 9:58AM EST [facility] Radiology Study observation (narrative) [facility] XR Chest PA and LateralOrder ed By: Ccf Provider on 03-05-2023 [facility] No Panel InformationOrdered By: Ccf Provider on 02-12-2023 Radiology Result ACTIONABLE Abnormal [facility] Comment on above: This report contains [...] Interpretation and review of laboratory results Abnormal [facility] XR Chest PA and Lateralon IMPRESSION: Left lower lobe pneumonia Follow-up to document resolution recommended ACTIONABLE RESULT: FOLLOW-UP Acuity: Actionable Findings: Thoracic-Other Routing Code: CT_1 Recommendation: Unlisted Recommendation (see report) Time Frame: At the discretion of the clinical team. COMMUNICATION: Results will be communicated with the ordering provider via [facility] [employer] staff message or phone message by [facility] within 2 business days of report finalization. --END OF FINDING-- Management Trainee Marketing: BEB[employer]O Transcribe Date/Time: Feb 12 2023 10:34A Dictated by : LAM KEARNEY MD This examination was interpreted and the report reviewed and electronically signed by: LAM KEARNEY MD on Feb 12 2023 10:37AM [facility] DIVISION OF RADIOLOGY * * *Final [...] vertebral bodies. Stable DIVISION OF RADIOLOGY Provider, [facility] Clarisse luz [place] - 02/12/2023 * * *Final Report* * [...] be communicated with the ordering provider via [facility] [employer] staff message or phone message by [facility] within 2 business days of report finalization. --END OF FINDING-- Management Trainee Marketing: BEBETO Transcribe Date/Time: Feb 12 2023 10:34A Dictated by : LAM KEANREY MD This examination was interpreted and the report reviewed and electronically signed by: LAM KEARNEY MD on Feb 12 2023 10:37AM EST [facility] Radiology Study observation (narrative) [facility] XR Lumbar spine 3 Viewson IMPRESSION: DEGENERATIVE CHANGE, SCOLIOSIS, SUPERIOR ENDPLATE FRACTURE OF L2. AGE INDETERMINATE Management Trainee Marketing: [employer] Transcribe Date/Time: Nov 25 2022 4:45P [...] osteopenia DIVISION OF RADIOLOGY Provider, Erin Clarisse [facility] - 11/25/2022 * * *Final Report* * [...] SUPERIOR ENDPLATE FRACTURE OF L2. AGE INDETERMINATE Management Trainee Marketing: PSCB Transcribe Date/Time: Nov 25 2022 4:45P Dictated by : LAM KEARNEY MD This examination was interpreted and the report reviewed and electronically signed by: LAM KEARNEY MD on Nov 25 2022 4:47PM [facility] XR Lumbar spine 3 ViewsOrder ed By: Cc Provider on 11-25-2022 [facility] VITAMIN D 25 HYDROXYon 11-24 25-hydroxyvitamin D3 [Mass/Vol] 53.0 ng/mL 31.0 - 80.0 ng/mL [facility] XR Lumbar spine 3 Viewson Radiology Study observation (narrative) [facility] HEMOGLOBIN A1C (POC)on 05-27 HbA1c (Bld) [Mass fraction] 6.0 % 4.2 - 5.6 % [facility] HEP C AB IA W/CONF SCRNon HCV Ab Ql (S) Negative Negative [facility] CITRATED PLATELET COUNTon Citrated Platelet Count [facility] XR Chest PA and Lateralon IMPRESSION: No acute radiographic abnormality. Management Trainee Marketing: P[employer] Transcribe Date/Time: Sep 22 2021 11:23A [...] spine. ZZZ_DO_NOT_ USE_DIVISIO N OF RADIOLOGY Provider, [facility] Clarisse Kruger - 09/22/2021 * * *Final [...] spine. IMPRESSION IMPRESSION: No acute radiographic abnormality. Management Trainee Marketing: [facility] Transcribe Date/Time: Sep 22 2021 11:23A Dictated by : INDIO MALIK MD This examination was interpreted and the report reviewed and electronically signed by: INDIO MALIK MD on Sep 22 2021 11:27AM EST [facility] Radiology Study observation (narrative) [facility] XR Chest PA and LateralOrder ed By: Ccf Provider on 09-22-2021 [facility] No Panel Informationon 11-21 IMPRESSION: Acute comminuted intra-articular fracture involving the radial head and neck. Associated elbow joint effusion. Possible fracture of the medial humeral epicondyle. Scapholunate ligament disruption of uncertain age. Management Trainee Marketing: [facility] Transcribe Date/Time: Nov 21 2020 5:35P Dictated by : BRENDEN LACY MD This examination was interpreted and the report reviewed and electronically signed by: BRENDEN LACY MD on Nov 21 2020 5:38PM [facility] DIVISION OF RADIOLOGY Radiology Study observation (narrative) [facility] No Panel InformationOrdered By: Ccf Provider on 11-21-2020 [facility] XR Elbow - left AP and [...] tissue abnormality identified. DIVISION OF RADIOLOGY Provider, [facility] - 11/21/2020 * * *Final Report* * [...] epicondyle. Scapholunate ligament disruption of uncertain age. Management Trainee Marketing: [employer] Transcribe Date/Time: Nov 21 2020 5:35P Dictated by : BRENDEN LACY MD This examination was interpreted and the report reviewed and electronically signed by: BRENDEN LACY MD on Nov 21 2020 5:38PM [facility] XR Wrist - left PA and Later [...] tissue abnormality identified. DIVISION OF RADIOLOGY Provider, [facility] - 11/21/2020 * * *Final Report* * [...] epicondyle. Scapholunate ligament disruption of uncertain age. Management Trainee Marketing: BEBETO Transcribe Date/Time: Nov 21 2020 5:35P Dictated by : BRENDEN LACY MD This examination was interpreted and the report reviewed and electronically signed by: BRENDEN LACY MD on Nov 21 2020 5:38PM EST [facility] CNNURSEon 06-07-2020 CNNURSE Nurse Visit (COVAMGela) KRYSTYNA KHANNA ([id number]) 1935 F Date Time Provider Department 06/07/20 BRANDEE HARDING JR During your visit today, we recorded the following information about you: Allergies As of Date: 06/07/2020 Noted Allergy Reaction DARVOCET A500 (PROPOXYPHENE N-APOLINAR*04/26/2012 16 - Unknown SULFA (SULFONAMIDE ANTIBIOTICS) 04/26/2012 14 - Other: See Comments Comments: didn't feel right, nervousness Date Reviewed: 03/28/2020 Reviewed by: Ling Shields Ma - Fully Assessed Order(s):Lumetrics SARS-COV-2 VACCINE 2D DOSE APPT [[id number]] Order #: [id number] Prescriptions as of 06/07/2020 Sig: XARELTO 20 [...] of left knee [M17.12] 11/24/2017 12/23/2017 Encounter Status:[facility] 07-15-2017 [facility] Office Visit (AGCARDWST) -------KRYSTYNA KHANNA ([id number]) 1935 [facility] Time Provider Department07/15/17 10:00 AM RAMO [...] - N/ABeta rina for ASHD with prior KS or prior LVEFANDlt;40 (NQF 0070) - N/ABeta [...] woman who is seen in consultation at [facility] of Dr. Maier, who plans knee surgery. She was recently found to haveelevated heart rate and borderline low blood pressure in the office. She wassent to the emergency department where she was documented to be in atrialfibrillation. She converted spontaneously after receiving intravenousmetoprolol.She was unaware of her heart rhythm. She's had no previous history of cardiacproblems. While at [facility], she underwent stress test. There wasreportedly [...] tablet by mouth once daily.vit A-vit C-vit S-tfdp-uxkriu (EYE VITAMIN AND MINERALS) 7,685-628-670rwsz-mg-unit tab Take by mouth.FLUTICASONE PROPIONATE (FLONASE NASAL) [...] daily.BOSWELLIA CANDIDA EXTRACT (BOSWELLIA CANDIDA XT, BULK, [facility])PAST MEDICAL HISTORYDiagnosis Date- Hepatitis thinks B- History [...] testshowed no evidence of ischemia.Electronically Signed:Ramo Barahona [facility] 2017 10:52 [facility]: Pedro Smith III, MD 07/15/2017 10:52 AM [...] Diagnoses:Hypertension, essential [I10] PAF (paroxysmal atrial fibrillation) ([facility]) [I48.0]Order(s):ECG B/O W INTERP (MED OFFICE) [ECG06] Order #: [id number] as of 07/15/2017 Sig: METOPROLOL SUCCINATE ER [...] 07/15/2017 10:25 AM >> SAMANTA PERDUE MA [facility] Jul 15, 2017 10:25 AM Not takingProblem List As Of Date 07/15/2017 Noted Resolved Bilateral Knee Pain [M25.561, M25.562] INVALID FOR* Other instructions from your clinician: LIFESTYLE CHANGE A healthy lifestyle is the most important component of your overall treatment plan. Please give serious thought to the following areas and commit to making corporation officer changes. EAT A WHOLE FOOD, PLANT BASED [...] SEGUNDO's office.Follow-up and Disposition History RecordedEncounter Number: [id number] Status:Closed by RAMO BARAHONA MD on 07/15/17 [facility] PROGRESSon 07-15-2017 PROGRESS HNO ID: [id number] thor: Ramo Crystal: (none)Author Type: PhysicianType: Progress NotesFiled: 07/15/2017 5:49 PMNote Text:PERTINENT CARDIAC HISTORYPAF - asymptomaticRBBBHTNDMADHEREN CE TO GUIDELINESACE-I or ARB for HF with prior LVEF<40 (NQF 0081) - N/AASA or Plavix for ASHD (NQF 0067) - N/ABeta rina for ASHD with prior KS or prior LVEF<40 (NQF 0070) - N/ABeta [...] woman who is seen in consultation at [facility] of Dr. Maier, who plans knee surgery. She was recently found tohave elevated heart rate and borderline low blood pressure in the office.She was sent to the emergency department where she was documented to be inatrial fibrillation. She converted spontaneously after receivingintravenous metoprolol.She was unaware of her heart rhythm. She's had no previous history ofcardiac problems. While at [facility], she underwent stress test.There was reportedly [...] tablet by mouth once daily.vit A-vit C-vit R-coto-wsysmh (EYE VITAMIN AND MINERALS) [id number]-mg-unit tab Take by mouth.FLUTICASONE PROPIONATE (FLONASE NASAL) [...] daily.BOSWELLIA CANDIDA EXTRACT (BOSWELLIA CANDIDA XT, BULK, [employer])PAST MEDICAL HISTORYDiagnosis Date- Hepatitis thinks B- History [...] showed no evidence of ischemia.Electronically Signed:Ramo Barahona, [facility] 2017 10:52 [facility]: Brandee Alas III, MD [facility] NM MYOCARDIAL SPECT STRESS/R ESTon 06-09-2017 [...] AM Sign Date: 06/09/2017 7:34:29 AM Normal [facility] ([place]) Stress Teston 06-08-2017 Stress Test Normal [facility] ([place]) .Auto Diffon 06-04-2017 Basophils Auto #/vol (Bld) 0.00 10 3/mcL Normal 0.00-0.19 [facility] ([place]) Comment on above: Performed By: #### T ROP, BMP, MG, GFR, CBC, ADIFF, ANEU ####[address] [place], [place] [address] Basophils/100 WBC Auto (Bld) 0.4 % Normal 0.0-2.5 [facility] ([place]) Comment on above: Performed By: #### T ROP, BMP, MG, GFR, CBC, ADIFF, ANEU ####[address] [place], [place] [address] Eosinophils 0.10 10 3/mcL Normal 0.00-0.40 [facility] ([place]) Comment on above: Performed By: #### T ROP, BMP, MG, GFR, CBC, ADIFF, ANEU ####[address] [place], [place] [address] Eosinophils/100 leukocytes 1.1 % Normal 0.0-7.0 [facility] ([place] Comment on above: Performed By: #### T ROP, BMP, MG, GFR, CBC, ADIFF, ANEU ####[address] [place], [place] [address] Lymphocytes 3.40 10 3/mcL Normal 0.77-3.85 [facility] ([place] Comment on above: Performed By: #### T ROP, BMP, MG, GFR, CBC, ADIFF, ANEU ####[address] [place], [place] [address] Lymphocytes/100 leukocytes 60.0 % High 10.0-50.0 [facility] ([place]) Comment on above: Performed By: #### T ROP, BMP, MG, GFR, CBC, ADIFF, ANEU ####[address] [place], [place] [address] Monocytes 0.60 10 3/mcL Normal 0.15-1.00 [facility] ([place]) Comment on above: Performed By: #### T ROP, BMP, MG, GFR, CBC, ADIFF, ANEU ####[address] [place], [place] [address] Monocytes/100 leukocytes 11.0 % Normal 1.7-13.0 [facility] ([place]) Comment on above: Performed By: #### T ROP, BMP, MG, GFR, CBC, ADIFF, ANEU ####[address] [place], [place] [address] Neutrophils/100 WBC Auto (Bld) 27.5 % Low 37.0-80.0 [facility] ([place] Comment on above: Performed By: #### T ROP, BMP, MG, GFR, CBC, ADIFF, ANEU ####[address] [place], [place] [address] .GFRon 06-04-2017 eGFR (non-black) 98 ml/min/1.73sqm Normal A [facility] ([place]) Comment on above: Result Comment: GFR Population [...] BMP, MG, GFR, CBC, ADIFF, ANEU ####[address] [place], [place] [address] eGFR (non-black) mL/min/{1.73_m2} Normal [facility] ([place]) Comment on above: Result Comment: GFR Population [...] MG, GFR, CBC, ADIFF, ANEU ####[address] [place], [place] [address] .NEUABSon 06-04-2017 Neutrophils 1.60 10 3/mcL Low 2.85-6.16 [facility] ([place] Comment on above: Performed By: #### T ROP, BMP, MG, GFR, CBC, ADIFF, ANEU ####[address] [place], [place] [address] BMPon 06-04-2017 BUN/Creatinine Ratio 20 ratio Normal 7-27 [facility] ([place]) Comment on above: Performed By: #### T ROP, BMP, MG, GFR, CBC, ADIFF, ANEU ####[address] [place], [place] [address] Calcium 8.7 mg/dL Normal 8.4-10.2 [facility] ([place] Comment on above: Performed By: #### T ROP, BMP, MG, GFR, CBC, ADIFF, ANEU ####[address] [place], [place] [address] Chloride 103 mmol/L Normal 98-107 [facility] ([place] Comment on above: Performed By: #### T ROP, BMP, MG, GFR, CBC, ADIFF, ANEU ####[address] [place], [place] [address] CO2 30 mmol/L Normal 23-31 [facility] ([place] Comment on above: Performed By: #### T ROP, BMP, MG, GFR, CBC, ADIFF, ANEU ####[address] [place] [id number] Creatinine 0.7 mg/dL Normal 0.6-1.2 [facility] ([place] Comment on above: Performed By: #### T ROP, BMP, MG, GFR, CBC, ADIFF, ANEU ####[address] [place], [place] [address] Electrolyte Balance 6.0 mEq/L Normal [facility] ([place] Comment on above: Performed By: #### T ROP, BMP, MG, GFR, CBC, ADIFF, ANEU ####[address] [place], [place] [address] Glucose mass conc 102 mg/dL Normal 83-110 [facility] ([place] Comment on above: Performed By: #### T ROP, BMP, MG, GFR, CBC, ADIFF, ANEU ####[address] [place], [place] [address] Potassium molar conc 4.2 mmol/L Normal 3.5-5.1 [facility] ([place] Comment on above: Performed By: #### T ROP, BMP, MG, GFR, CBC, ADIFF, ANEU ####[address] [place], [place] [address] Sodium 139 mmol/L Normal 136-146 [facility] ([place] Comment on above: Performed By: #### T ROP, BMP, MG, GFR, CBC, ADIFF, ANEU ####[address] [place], [place] [address] Urea nitrogen 14.3 mg/dL Normal 7.0-18.0 [facility] ([place] Comment on above: Performed By: #### T ROP, BMP, MG, GFR, CBC, ADIFF, ANEU ####[address] [place], [place] [address] CBCon 06-04-2017 Erythrocyte distribution width Auto Ratio (RBC) 12.0 % Normal 11.5-14.5 [facility] ([place] Comment on above: Performed By: #### T ROP, BMP, MG, GFR, CBC, ADIFF, ANEU ####[address] [place], [place] [address] Erythrocytes (RBC) 4.06 10 6/mcL Low 4.20-5.40 [facility] ([place]) Comment on above: Performed By: #### T ROP, BMP, MG, GFR, CBC, ADIFF, ANEU ####[address] [place], [place] [address] Hematocrit (HCT) 38.6 % Normal 37.0-47.0 [facility] ([place] Comment on above: Performed By: #### T ROP, BMP, MG, GFR, CBC, ADIFF, ANEU ####[address] [place], [place] [address] Hemoglobin mass conc (Bld) 13.2 G/dL Normal 12.0-16.0 [facility] ([place] Comment on above: Performed By: #### T ROP, BMP, MG, GFR, CBC, ADIFF, ANEU ####[address] [place] [id number] MCH 32.6 pg High 27.0-31.2 [facility] ([place] Comment on above: Performed By: #### T ROP, BMP, MG, GFR, CBC, ADIFF, ANEU ####[address] [place] [address] MCHC mass conc (RBC) 34.2 G/dL Normal 33.0-37.0 [facility] ([place] Comment on above: Performed By: #### T ROP, BMP, MG, GFR, CBC, ADIFF, ANEU ####[address] [place] [id number] MCV 95.1 fL High 80.0-94.0 [facility] ([place] Comment on above: Performed By: #### T ROP, BMP, MG, GFR, CBC, ADIFF, ANEU ####[address] [place] [id number] Platelet mean volume (PMV) 8.6 fL Normal 7.4-10.4 [facility] ([place] Comment on above: Performed By: #### T ROP, BMP, MG, GFR, CBC, ADIFF, ANEU ####[address] [place] [id number] Platelets 133 10 3/mcL Normal 130-400 [facility] ([place] Comment on above: Performed By: #### T ROP, BMP, MG, GFR, CBC, ADIFF, ANEU ####[address] [place], [place] [address] WBC (Leukocytes) 5.70 10 3/mcL Normal 4.60-10.80 [facility] ([place] Comment on above: Performed By: #### T ROP, BMP, MG, GFR, CBC, ADIFF, ANEU ####[address] [place], [place] [address] Depart Summaryon 06-04-2017 Depart Summary Normal [facility]) Discharge Note-Nursingon Discharge Note-Nursing Normal [facility]) Echocardiogram, Adult (AOH)o n 06-04-2017 Echocardiogram, Adult (AO) Normal [facility]) MGon 06-04-2017 Magnesium 2.3 mg/dL Normal 1.7-2.5 [facility]) Comment on above: Performed By: #### T ROP, BMP, MG, GFR, CBC, ADIFF, ANEU ####[address] [place], [place] [address] [place] Discharge Summaryon 06-04-2017 [place] Discharge Summary Normal [facility]) [place] History and Physica shailesh 06-04-2017 [place] History and Physical Normal [facility]) [place] Inpatient Patient S ummaryon 06-04-2017 [place] Inpatient Patient Summary Normal [facility]) TROPon 06-04-2017 Troponin I.cardiac mass conc ng/mL Normal 0.00-0.30 [facility]) Comment on above: Result Comment: Belo w measuring range>=0.30 Consistent with cardiac damage, increased clinical risk and possibility of myocardial infarction. Serial measurements, clinical history, appropriate symptoms and/or ECG changes may help assess possibility of [place].*Other non-acute coronary syndrome conditions such as CHF, myocarditis, pulmonary emboli, sepsis and cardiac surgery could result in myocardial damage and increased troponin levels. Performed By: #### T ROP, BMP, MG, GFR, CBC, ADIFF, ANEU ####[address] [place], [place] [address] TSHon 06-04-2017 Thyroid stimulating hormone (TSH) 1.40 mcIU/mL Normal 0.27-4.20 [facility] ([place]) Comment on above: Performed By: #### T SH ####[address] [place], [place] [address] .Auto Diffon 06-03-2017 Basophils Auto #/vol (Bld) 0.00 10 3/mcL Normal 0.00-0.19 [facility] ([place]) Comment on above: Performed By: #### C BC, ADIFF, ANEU, TROP, PBNP, CMP, GFR, PRO, APTT ####[address] [place], [place] [address] Basophils/100 WBC Auto (Bld) 0.6 % Normal 0.0-2.5 [facility] ([place] Comment on above: Performed By: #### C BC, ADIFF, ANEU, TROP, PBNP, CMP, GFR, PRO, APTT ####[address] [place], [place] [address] Eosinophils 0.00 10 3/mcL Normal 0.00-0.40 [facility] ([place]) Comment on above: Performed By: #### C BC, ADIFF, ANEU, TROP, PBNP, CMP, GFR, PRO, APTT ####[address] [place], [place] [address] Eosinophils/100 leukocytes 0.7 % Normal 0.0-7.0 [facility] ([place] Comment on above: Performed By: #### C BC, ADIFF, ANEU, TROP, PBNP, CMP, GFR, PRO, APTT ####[address] [place], [place] [address] Lymphocytes 3.20 10 3/mcL Normal 0.77-3.85 [facility] ([place] Comment on above: Performed By: #### C BC, ADIFF, ANEU, TROP, PBNP, CMP, GFR, PRO, APTT ####[address] [place], [place] [address] Lymphocytes/100 leukocytes 49.9 % Normal 10.0-50.0 [facility] ([place] Comment on above: Performed By: #### C BC, ADIFF, ANEU, TROP, PBNP, CMP, GFR, PRO, APTT ####[address] [place], [place] [address] Monocytes 0.70 10 3/mcL Normal 0.15-1.00 [facility] ([place] Comment on above: Performed By: #### C BC, ADIFF, ANEU, TROP, PBNP, CMP, GFR, PRO, APTT ####[address] [place], [place] [address] Monocytes/100 leukocytes 11.7 % Normal 1.7-13.0 [facility] ([place]) Comment on above: Performed By: #### C BC, ADIFF, ANEU, TROP, PBNP, CMP, GFR, PRO, APTT ####[address] [place], [place] [address] Neutrophils/100 WBC Auto (Bld) 37.1 % Normal 37.0-80.0 [facility] ([place] Comment on above: Performed By: #### C BC, ADIFF, ANEU, TROP, PBNP, CMP, GFR, PRO, APTT ####[address] [place], [place] [address] .GFRon 06-03-2017 eGFR (non-black) mL/min/{1.73_m2} Normal [facility] ([place]) Comment on above: Result Comment: GFR Population [...] PBNP, CMP, GFR, PRO, APTT ####[address] [place], [place] [address] eGFR (non-black) 104 ml/min/1.73sqm Normal [facility] ([place]) Comment on above: Result Comment: GFR Population [...] PBNP, CMP, GFR, PRO, APTT ####[address] [place], [place] [address] .NEUABSon 06-03-2017 Neutrophils 2.40 10 3/mcL Low 2.85-6.16 [facility] ([place] Comment on above: Performed By: #### C BC, ADIFF, ANEU, TROP, PBNP, CMP, GFR, PRO, APTT ####[address] [place], [place] [address] APTTon 06-03-2017 aPTT 28.5 s Normal 26.9-35.2 [facility] ([place]) Comment on above: Result Comment: For Heparin anticoagulation therapy, the recommendedtherapeutic range is: 40-68.8 seconds (1.5 - 2.5 the normalplasma mean). Patients on heparin therapy may have an extreme result. Performed By: #### C BC, ADIFF, ANEU, TROP, PBNP, CMP, GFR, PRO, APTT ####[address] [place], [place] [address] aPTT Unknown Normal [facility] ([place]) Comment on above: Performed By: #### C BC, ADIFF, ANEU, TROP, PBNP, CMP, GFR, PRO, APTT ####[address] [place], [place] [address] CBCon 06-03-2017 Erythrocyte distribution width Auto Ratio (RBC) 12.2 % Normal 11.5-14.5 [facility] ([place]) Comment on above: Performed By: #### C BC, ADIFF, ANEU, TROP, PBNP, CMP, GFR, PRO, APTT ####[address] [place], [place] [address] Erythrocytes (RBC) 4.57 10 6/mcL Normal 4.20-5.40 [facility] ([place]) Comment on above: Performed By: #### C BC, ADIFF, ANEU, TROP, PBNP, CMP, GFR, PRO, APTT ####[address] [place], [place] [address] Hematocrit (HCT) 43.4 % Normal 37.0-47.0 [facility] ([place] Comment on above: Performed By: #### C BC, ADIFF, ANEU, TROP, PBNP, CMP, GFR, PRO, APTT ####[address] [place], [place] [address] Hemoglobin mass conc (Bld) 14.8 G/dL Normal 12.0-16.0 [facility] ([place] Comment on above: Performed By: #### C BC, ADIFF, ANEU, TROP, PBNP, CMP, GFR, PRO, APTT ####[address] [place], [place] [address] MCH 32.4 pg High 27.0-31.2 [facility] ([place] Comment on above: Performed By: #### C BC, ADIFF, ANEU, TROP, PBNP, CMP, GFR, PRO, APTT ####[address] [place], [place] [address] MCHC mass conc (RBC) 34.2 G/dL Normal 33.0-37.0 [facility] ([place]) Comment on above: Performed By: #### C BC, ADIFF, ANEU, TROP, PBNP, CMP, GFR, PRO, APTT ####[address] [place], [place] [address] MCV 95.0 fL High 80.0-94.0 [facility] ([place] Comment on above: Performed By: #### C BC, ADIFF, ANEU, TROP, PBNP, CMP, GFR, PRO, APTT ####[address] [place], [place] [address] Platelet mean volume (PMV) 8.9 fL Normal 7.4-10.4 [facility] ([place] Comment on above: Performed By: #### C BC, ADIFF, ANEU, TROP, PBNP, CMP, GFR, PRO, APTT ####[address] [place], [place] [address] Platelets 138 10 3/mcL Normal 130-400 [facility] ([place] Comment on above: Performed By: #### C BC, ADIFF, ANEU, TROP, PBNP, CMP, GFR, PRO, APTT ####[address] [place], [place] [address] WBC (Leukocytes) 6.40 10 3/mcL Normal 4.60-10.80 [facility] ([place]) Comment on above: Performed By: #### C BC, ADIFF, ANEU, TROP, PBNP, CMP, GFR, PRO, APTT ####[address] [place], [place] [address] CMPon 06-03-2017 Alanine aminotransferase (ALT) 10 U/L Normal 10-35 [facility] ([place] Comment on above: Performed By: #### C BC, ADIFF, ANEU, TROP, PBNP, CMP, GFR, PRO, APTT ####[address] [place], [place] [address] Albumin 4.6 G/dL Normal 3.4-4.8 [facility] ([place] Comment on above: Performed By: #### C BC, ADIFF, ANEU, TROP, PBNP, CMP, GFR, PRO, APTT ####[address] [place], [place] [address] Albumin/Globulin Ratio 1.6 {ratio} Normal 1.1-2.5 [facility] ([place] Comment on above: Performed By: #### C BC, ADIFF, ANEU, TROP, PBNP, CMP, GFR, PRO, APTT ####[address] [place], [place] [address] Alk Phos 62 IU/L Normal 40-135 [facility] ([place] Comment on above: Performed By: #### C BC, ADIFF, ANEU, TROP, PBNP, CMP, GFR, PRO, APTT ####[place] [id number] [place] [id number] Aspartate aminotransferase (AST) 25 U/L Normal 10-40 [facility] ([place] Comment on above: Performed By: #### C BC, ADIFF, ANEU, TROP, PBNP, CMP, GFR, PRO, APTT ####[place] [address] [place] [id number] Bili Total 0.7 mg/dL Normal 0.2-1.0 [facility] ([place] Comment on above: Performed By: #### C BC, ADIFF, ANEU, TROP, PBNP, CMP, GFR, PRO, APTT ####[place] [address] [place] [address] BUN/Creatinine Ratio 20 ratio Normal 7-27 [facility] ([place] Comment on above: Performed By: #### C BC, ADIFF, ANEU, TROP, PBNP, CMP, GFR, PRO, APTT ####[place] [address] [place], [place] [address] Calcium 9.3 mg/dL Normal 8.4-10.2 [facility] ([place] Comment on above: Performed By: #### C BC, ADIFF, ANEU, TROP, PBNP, CMP, GFR, PRO, APTT ####[facility] [place], [place] [address] Chloride 98 mmol/L Normal 98-107 [facility] ([place] Comment on above: Performed By: #### C BC, ADIFF, ANEU, TROP, PBNP, CMP, GFR, PRO, APTT ####[address] [place], [place] [address] CO2 30 mmol/L Normal 23-31 [facility] ([place] Comment on above: Performed By: #### C BC, ADIFF, ANEU, TROP, PBNP, CMP, GFR, PRO, APTT ####[address] [place], [place] [address] Creatinine 0.7 mg/dL Normal 0.6-1.2 [facility] ([place] Comment on above: Performed By: #### C BC, ADIFF, ANEU, TROP, PBNP, CMP, GFR, PRO, APTT ####[address] [place], [place] [address] Electrolyte Balance 10.0 mEq/L Normal [facility] ([place] Comment on above: Performed By: #### C BC, ADIFF, ANEU, TROP, PBNP, CMP, GFR, PRO, APTT ####[address] [place] [address] Globulin 2.8 G/dL Normal [facility] ([place] Comment on above: Performed By: #### C BC, ADIFF, ANEU, TROP, PBNP, CMP, GFR, PRO, APTT ####[address] [place], [place] [address] Glucose mass conc 102 mg/dL Normal 83-110 [facility] ([place] Comment on above: Performed By: #### C BC, ADIFF, ANEU, TROP, PBNP, CMP, GFR, PRO, APTT ####[address] [place], [place] [address] Potassium molar conc 4.0 mmol/L Normal 3.5-5.1 [facility] ([place] Comment on above: Performed By: #### C BC, ADIFF, ANEU, TROP, PBNP, CMP, GFR, PRO, APTT ####[address] [place], [place] [address] Protein 7.4 G/dL Normal 6.0-8.3 [facility] ([place] Comment on above: Performed By: #### C BC, ADIFF, ANEU, TROP, PBNP, CMP, GFR, PRO, APTT ####[address] [place], [place] [address] Sodium 138 mmol/L Normal 136-146 [facility] ([place] Comment on above: Performed By: #### C BC, ADIFF, ANEU, TROP, PBNP, CMP, GFR, PRO, APTT ####[address] [place], [place] [address] Urea nitrogen 14.1 mg/dL Normal 7.0-18.0 [facility] ([place] Comment on above: Performed By: #### C BC, ADIFF, ANEU, TROP, PBNP, CMP, GFR, PRO, APTT ####[address] [place], [place] [address] [facility] Note on 06-03-2017 [facility] Note Normal [facility] ([place]) PBNPon 06-03-2017 BNP 51.1 pg/mL Normal 5.0-300.0 [facility] ([place]) Comment on above: Result Comment: In t he presence of acute dyspnea, CHF likely if:Age <50 years: >450 pg/mLAge 50-75 years: >900 pg/mLAge >75 years: >1800 pg/mL Performed By: #### C BC, ADIFF, ANEU, TROP, PBNP, CMP, GFR, PRO, APTT ####[address] [place], [place] [address] PROon 06-03-2017 INR Coag RelTime (PPP) 1.2 {INR} Normal 0.9-1.2 [facility] ([place] Comment on above: Result Comment: Ameya dard [...] PBNP, CMP, GFR, PRO, APTT ####[address] [place], [place] [address] Prothrombin time (PT) Coag time (PPP) 12.3 s Normal 9.8-13.5 [facility] ([place] Comment on above: Performed By: #### C BC, ADIFF, ANEU, TROP, PBNP, CMP, GFR, PRO, APTT ####[address] [place], [place] [address] Patient Summary Documentson 06-03-2017 Patient Summary Documents Normal [facility] ([place]) TROPon 06-03-2017 Troponin I.cardiac mass conc ng/mL Normal 0.00-0.30 [facility] ([place]) Comment on above: Result Comment: Belo w measuring range>=0.30 Consistent with cardiac damage, increased clinical risk and possibility of myocardial infarction. Serial measurements, clinical history, appropriate symptoms and/or ECG changes may help assess possibility of [place].*Other non-acute coronary syndrome conditions such as CHF, myocarditis, pulmonary emboli, sepsis and cardiac surgery could result in myocardial damage and increased troponin levels. Performed By: #### C BC, ADIFF, ANEU, TROP, PBNP, CMP, GFR, PRO, APTT ####[address] [place], [place] [address] XR CHEST 1 VIEWon 06-03-2017 XR CHEST [...] PM Sign Date: 06/03/2017 1:12:04 PM Normal [facility] ([place]) XR WRIST MINIMUM 3 VIEWS RIG HTon [...] PM Sign Date: 01/16/2017 10:46:23 PM Normal [facility] ([place]) [facility] Note on 01-16-2017 [facility] Note Normal [facility] ([place]) Patient Summary Documentson 01-16-2017 Patient Summary Documents Normal [facility]) Vital Signs Date Time Vital Sign Value Performing Clinician Facility 01-16-2025 11:170400 Body height 149.[address] Rufino Erickson MD Work Phone: 0(103)101-932021 [place] [address] 01-16-2025 11:17-040 Body mass index (BMI) [Ratio] 32.3 kg/m2 Dr. Rufino Erickson MD Work Phone: [facility] 01-16-2025 11:17-040 Body weight 72.[address] Rufino Erickson MD Work Phone: [facility] 01-16-2025 11:17-0400 Diastolic blood pressure 60 mm[Hg] Dr. Rufino Erickson MD Work Phone: 9(591)789-804521 [place] [address] 01-16-2025 11:17-040 Heart rate 64 /min Dr. Rufino Erickson MD Work Phone: [facility] 01-16-2025 11:17-0400 Systolic blood pressure 138 mm[Hg] Dr. Rufino Erickson MD Work Phone: [facility] 01-11-2025 11:17-0400 Body temperature 98.2 [degF] Dr. Rufino Erickson MD Work Phone: [facility] 01-11-2025 11:17-0400 Diastolic blood pressure 65 mm[Hg] Dr. Rufino Erickson MD Work Phone: [facility] 01-11-2025 11:17-0400 Heart rate 72 /min Dr. Rufino Erickson MD Work Phone: [facility] 01-11-2025 11:17-0400 Respiratory rate 18 /min Dr. Rufino Erickson MD Work Phone: [facility] 01-11-2025 11:17-0400 SaO2% (BldA) [Mass fraction] 91 % Dr. Rufino Erickson MD Work Phone: [facility] 01-11-2025 11:17-0400 Systolic blood pressure 99 mm[Hg] Dr. Rufino Erickson MD Work Phone: [facility] 01-02-2025 10:00-0400 Diastolic blood pressure 68 mm[Hg] Steve Mane PT Work Phone: [facility] 01-02-2025 10:00-0400 Heart rate 78 /min Steve Mane PT Work Phone: [facility] 01-02-2025 10:00-0400 SaO2% (BldA) [Mass fraction] 92 % Steve Mane PT Work Phone: [facility] 01-02-2025 10:00-0400 Systolic blood pressure 108 mm[Hg] Steve Mane PT Work Phone: [facility] 12-29-2024 09:40-0400 Diastolic blood pressure 61 mm[Hg] Lulu Staton APRN.DIVISION COMMANDER Work Phone: [facility] 12-29-2024 09:40-0400 Heart rate 89 /min Lulu Staton APRN.DIVISION COMMANDER Work Phone: [facility] 12-29-2024 09:40-0400 Systolic blood pressure 101 mm[Hg] Lulu Staton APRN.CNP Work Phone: [facility] 12-11-2024 15:06-0400 Diastolic blood pressure 60 mm[Hg] Rufino Erickson MD Work Phone: [facility] 12-11-2024 15:06-0400 Systolic blood pressure 112 mm[Hg] Rufino Erickson MD Work Phone: [facility] 12-11-2024 13:57-0400 Body mass index (BMI) [Ratio] 31.94 kg/m2 Rufino Erickson MD Work Phone: [facility] 12-11-2024 13:57-0400 Body weight 69.4 kg Rufino Erickson MD Work Phone: [facility] 12-11-2024 13:57-0400 Heart rate 68 /min Rufino Erickson MD Work Phone: [facility] 12-11-2024 13:57-0400 Respiratory rate 16 /min Rufino Erickson MD Work Phone: [facility] 12-07-2024 07:46-0400 Body mass index (BMI) [Ratio] 30.9 kg/m2 Dr. Rufino Erickson MD Work Phone: [facility] 12-07-2024 07:46-0400 Body weight 69.[address] Rufino Erickson MD Work Phone: [facility] 12-07-2024 07:46-0400 Diastolic blood pressure 67 mm[Hg] Dr. Rufino Erickson MD Work Phone: [facility] 12-07-2024 07:46-0400 Heart rate 80 /min Dr. Rufino Erickson MD Work Phone: [facility] 12-07-2024 07:46-0400 Respiratory rate 18 /min Dr. Rufino Erickson MD Work Phone: [facility] 12-07-2024 07:46-0400 SaO2% (BldA) [Mass fraction] 94 % Dr. Rufino Erickson MD Work Phone: 0(996)133-535096 [place] [address] 12-07-2024 07:46-0400 Systolic blood pressure 103 mm[Hg] Dr. Rufino Erickson MD Work Phone: 8(324)704-884596 [place] [address] 11-20-2024 11:06-0400 Body height 149.[address] Rufino Erickson MD Work Phone: 3(519)323-723096 [place] [address] 11-20-2024 11:06-0400 Body mass index (BMI) [Ratio] 31.1 kg/m2 Dr. Rufino Erickson MD Work Phone: 8(626)255-076796 [place] [address] 11-20-2024 11:06-0400 Body temperature 98 [degF] Dr. Rufino Erickson MD Work Phone: 1(698)602-327596 [place] [address] 11-20-2024 11:06-0400 Body weight 70.[address] Rufino Erickson MD Work Phone: 9(696)973-242596 [place] [address] 11-20-2024 11:06-0400 Diastolic blood pressure 74 mm[Hg] Dr. Rufino Erickson MD Work Phone: 8(888)475-583396 [place] [address] 11-20-2024 11:06-0400 Heart rate 87 /min Dr. Rufino Erickson MD Work Phone: 5(057)598-979496 [place] [address] 11-20-2024 11:06-0400 Respiratory rate 16 /min Dr. Rufino Erickson MD Work Phone: 0(953)698-753696 [place] [address] 11-20-2024 11:06-0400 SaO2% (BldA) [Mass fraction] 93 % Dr. Rufino Erickson MD Work Phone: 1(408)430-145496 [place] [address] 11-20-2024 11:06-0400 Systolic blood pressure 124 mm[Hg] Dr. Rufino Erickson MD Work Phone: 7(041)836-443596 [place] [address] 10-26-2024 09:33-0400 Body height 147.[address] Rufino Erickson MD Work Phone: 4(705)515-182396 [place] [address] 10-26-2024 09:33-0400 Body mass index (BMI) [Ratio] 33 kg/m2 Dr. Rufino Erickson MD Work Phone: 2(947)079-133796 [place] [address] 10-26-2024 09:33-0400 Body weight 71.[address] Rufino Erickson MD Work Phone: 1(715)420-261696 [place] [address] 10-26-2024 09:33-0400 Diastolic blood pressure 56 mm[Hg] Dr. Rufino Erickson MD Work Phone: 9(535)295-830296 [place] [address] 10-26-2024 09:33-0400 Heart rate 66 /min Dr. Rufino Erickson MD Work Phone: 6(422)854-304696 [place] [address] 10-26-2024 09:33-0400 Respiratory rate 16 /min Dr. Rufino Erickson MD Work Phone: 2(293)540-933796 [place] [address] 10-26-2024 09:33-0400 Systolic blood pressure 86 mm[Hg] Dr. Rufino Erickson MD Work Phone: 8(263)289-456996 [place] [address] 10-23-2024 21:50-0400 Body temperature 98.4 [degF] Dr. Rufino Erickson MD Work Phone: 6(598)942-583996 [place] [address] 10-23-2024 21:50-0400 Diastolic blood pressure 59 mm[Hg] Dr. Rufino Erickson MD Work Phone: 9(265)543-898596 [place] [address] 10-23-2024 21:50-0400 Heart rate 62 /min Dr. Rufino Erickson MD Work Phone: 4(427)168-925796 [place] [address] 10-23-2024 21:50-0400 Respiratory rate 18 /min Dr. Rufino Erickson MD Work Phone: 8(593)459-470696 [place] [address] 10-23-2024 21:50-0400 SaO2% (BldA) [Mass fraction] 93 % Dr. Rufino Erickson MD Work Phone: 7(277)385-858696 [place] [address] 10-23-2024 21:50-0400 Systolic blood pressure 128 mm[Hg] Dr. Rufino Erickson MD Work Phone: 5(595)308-133396 [place] [address] 10-23-2024 17:52-0400 Body height 147.[address] Rufino Erickson MD Work Phone: [facility] 10-23-2024 17:52-0400 Body mass index (BMI) [Ratio] 33.5 kg/m2 Dr. Rufino Erickson MD Work Phone: [facility] 10-23-2024 17:52-0400 Body weight 72.[address] Rufino Erickson MD Work Phone: [facility] 10-19-2024 10:37-0400 Body mass index (BMI) [Ratio] 30.84 kg/m2 Lulu Staton APRN.DIVISION COMMANDER Work Phone: [facility] 10-19-2024 10:37-0400 Body weight 67 kg Lulu Staton APRN.DIVISION COMMANDER Work Phone: [facility] 10-19-2024 10:37-0400 Diastolic blood pressure 68 mm[Hg] Lulu Staton APRN.DIVISION COMMANDER Work Phone: [facility] 10-19-2024 10:37-0400 Heart rate 61 /min Lulu Staton APRN.DIVISION COMMANDER Work Phone: [facility] 10-19-2024 10:37-0400 Systolic blood pressure 113 mm[Hg] Lulu Staton CERTIFIED BENCH JEWELER TECHNICIAN.DIVISION COMMANDER Work Phone: [facility] 10-07-2024 11:54-0400 Body mass index (BMI) [Ratio] 33.23 kg/m2 Cruz James CERTIFIED BENCH JEWELER TECHNICIAN.DIVISION COMMANDER Work Phone: [facility] 10-07-2024 11:54-0400 Body temperature 98.8 [degF] Cruz James CERTIFIED BENCH JEWELER TECHNICIAN.DIVISION COMMANDER Work Phone: [facility] 10-07-2024 11:54-0400 Body weight 72.2 kg Cruz James CERTIFIED BENCH JEWELER TECHNICIAN.DIVISION COMMANDER Work Phone: [facility] 10-07-2024 11:54-0400 Diastolic blood pressure 84 mm[Hg] Cruz James CERTIFIED BENCH JEWELER TECHNICIAN.DIVISION COMMANDER Work Phone: [facility] 10-07-2024 11:54-0400 Heart rate 62 /min Cruz Schwanger CERTIFIED BENCH JEWELER TECHNICIAN.DIVISION COMMANDER Work Phone: [facility] 10-07-2024 11:54-0400 Respiratory rate 20 /min Cruz Schwsydnee CERTIFIED BENCH JEWELER TECHNICIAN.DIVISION COMMANDER Work Phone: [facility] 10-07-2024 11:54-0400 SaO2% (BldA) [Mass fraction] 97 % Cruz Schwsydnee CERTIFIED BENCH JEWELER TECHNICIAN.DIVISION COMMANDER Work Phone: [facility] 10-07-2024 11:54-0400 Systolic blood pressure 138 mm[Hg] Cruz Schwanger CERTIFIED BENCH JEWELER TECHNICIAN.DIVISION COMMANDER Work Phone: [facility] 09-27-2024 13:05-0400 Body mass index (BMI) [Ratio] 31.53 kg/m2 Rufino Erickson MD Work Phone: [facility] 09-27-2024 13:05-0400 Body weight 68.49 kg Rufino Erickson MD Work Phone: [facility] 09-27-2024 13:05-0400 Diastolic blood pressure 60 mm[Hg] Rufino Erickson MD Work Phone: [facility] 09-27-2024 13:05-0400 Heart rate 59 /min Rufino Erickson MD Work Phone: [facility] 09-27-2024 13:05-0400 Respiratory rate 18 /min Rufino Erickson MD Work Phone: [facility] 09-27-2024 13:05-0400 SaO2% (BldA) [Mass fraction] 94 % Rufino Erickson MD Work Phone: [facility] 09-27-2024 13:05-0400 Systolic blood pressure 104 mm[Hg] Rufino Erickson MD Work Phone: [facility] 08-24-2024 06:45-0400 Body mass index (BMI) [Ratio] 33.8 kg/m2 Dr. Rufino Erickson MD Work Phone: [facility] 08-24-2024 06:45-0400 Body weight 73.[address] Rufino Erickson MD Work Phone: [facility] 08-24-2024 06:45-0400 Diastolic blood pressure 74 mm[Hg] Dr. Rufino Erickson MD Work Phone: [facility] 08-24-2024 06:45-0400 Heart rate 61 /min Dr. Rufino Erickson MD Work Phone: [facility] 08-24-2024 06:45-0400 Respiratory rate 18 /min Dr. Rufino Erickson MD Work Phone: [facility] 08-24-2024 06:45-0400 SaO2% (BldA) [Mass fraction] 94 % Dr. Rufino Erickson MD Work Phone: [facility] 08-24-2024 06:45-0400 Systolic blood pressure 123 mm[Hg] Dr. Rufino Erickson MD Work Phone: [facility] 07-12-2024 14:41-0400 Body temperature 98.6 [degF] Harrison Moomaw CERTIFIED BENCH JEWELER TECHNICIAN.DIVISION COMMANDER Work Phone: [facility] 07-12-2024 14:41-0400 Diastolic blood pressure 78 mm[Hg] Harrison Moomaw CERTIFIED BENCH JEWELER TECHNICIAN.DIVISION COMMANDER Work Phone: [facility] 07-12-2024 14:41-0400 Heart rate 72 /min Harrison Moomaw CERTIFIED BENCH JEWELER TECHNICIAN.DIVISION COMMANDER Work Phone: [facility] 07-12-2024 14:41-0400 SaO2% (BldA) [Mass fraction] 94 % Harrison Moomaw CERTIFIED BENCH JEWELER TECHNICIAN.DIVISION COMMANDER Work Phone: [facility] 07-12-2024 14:41-0400 Systolic blood pressure 124 mm[Hg] Harrison Moomaw CERTIFIED BENCH JEWELER TECHNICIAN.DIVISION COMMANDER Work Phone: [facility] 07-05-2024 11:23-0400 Body mass index (BMI) [Ratio] 35.07 kg/m2 Rufino Erickson MD Work Phone: [facility] 07-05-2024 11:23-0400 Body weight 76.2 kg Rufino Erickson MD Work Phone: [facility] 07-05-2024 11:23-0400 Diastolic blood pressure 60 mm[Hg] Rufino Erickson MD Work Phone: [facility] 07-05-2024 11:23-0400 Heart rate 55 /min Rufino Erickson MD Work Phone: [facility] 07-05-2024 11:23-0400 Respiratory rate 16 /min Rufino Erickson MD Work Phone: [facility] 07-05-2024 11:23-0400 SaO2% (BldA) [Mass fraction] 92 % Rufino Erickson MD Work Phone: [facility] 07-05-2024 11:23-0400 Systolic blood pressure 102 mm[Hg] Rufino Erickson MD Work Phone: [facility] 05-30-2024 11:20-0500 Diastolic blood pressure 60 mm[Hg] Rufino Erickson MD Work Phone: [facility] 05-30-2024 11:20-0500 Heart rate 64 /min Rufino Erickson MD Work Phone: [facility] 05-30-2024 11:20-0500 Respiratory rate 20 /min Rufino Erickson MD Work Phone: [facility] 05-30-2024 11:20-0500 Systolic blood pressure 92 mm[Hg] Rufino Erickson MD Work Phone: [facility] 04-17-2024 09:02-0500 Diastolic blood pressure 72 mm[Hg] Lulu Staton APRN.DIVISION COMMANDER Work Phone: [facility] 04-17-2024 09:02-0500 Heart rate 56 /min Lulu Staton APRN.DIVISION COMMANDER Work Phone: [facility] 04-17-2024 09:02-0500 Respiratory rate 18 /min Lulu Staton APRN.DIVISION COMMANDER Work Phone: [facility] 04-17-2024 09:02-0500 SaO2% (BldA) [Mass fraction] 95 % Lulu Staton CERTIFIED BENCH JEWELER TECHNICIAN.DIVISION COMMANDER Work Phone: [facility] 04-17-2024 09:02-0500 Systolic blood pressure 146 mm[Hg] Lulu Staton CERTIFIED BENCH JEWELER TECHNICIAN.DIVISION COMMANDER Work Phone: [facility] 04-07-2024 16:56-0500 Heart rate 80 /min Ulices Moya APRN.DIVISION COMMANDER Work Phone: [facility] 04-07-2024 16:56-0500 SaO2% (BldA) [Mass fraction] 90 % Ulices Moya APRN.DIVISION COMMANDER Work Phone: [facility] Comment on above: post albuterol treatment 04-07-2024 15:49-0500 Body mass index (BMI) [Ratio] 35.44 kg/m2 Ulices Moya APRN.DIVISION COMMANDER Work Phone: [facility] 04-07-2024 15:49-0500 Body temperature 98.01 [degF] Ulices Moya APRN.DIVISION COMMANDER Work Phone: [facility] 04-07-2024 15:49-0500 Body weight 77 kg Ulices Moya APRN.DIVISION COMMANDER Work Phone: [facility] 04-07-2024 15:49-0500 Diastolic blood pressure 88 mm[Hg] Ulices Moya APRN.DIVISION COMMANDER Work Phone: [facility] 04-07-2024 15:49-0500 Respiratory rate 26 /min Ulices Moya APRN.DIVISION COMMANDER Work Phone: [facility] 04-07-2024 15:49-0500 Systolic blood pressure 121 mm[Hg] Ulices Moya APRN.DIVISION COMMANDER Work Phone: [facility] 01-11-2024 09:43-0400 Body mass index (BMI) [Ratio] 35.91 kg/m2 Rufino Erickson MD Work Phone: [facility] 01-11-2024 09:43-0400 Body temperature 98.6 [degF] Rufino Erickson MD Work Phone: [facility] 01-11-2024 09:43-0400 Body weight 78.02 kg Rufino Erickson MD Work Phone: [facility] 01-11-2024 09:43-0400 Diastolic blood pressure 78 mm[Hg] Rufino Erickson MD Work Phone: [facility] 01-11-2024 09:43-0400 Heart rate 111 /min Rufino Erickson MD Work Phone: [facility] 01-11-2024 09:43-0400 Respiratory rate 18 /min Rufino Erickson MD Work Phone: [facility] 01-11-2024 09:43-0400 SaO2% (BldA) [Mass fraction] 96 % Rufino Erickson MD Work Phone: [facility] 01-11-2024 09:43-0400 Systolic blood pressure 122 mm[Hg] Rufino Erickson MD Work Phone: [facility] 12-03-2023 15:28-0400 Body mass index (BMI) [Ratio] 36.32 kg/m2 Ulices Moya APRN.DIVISION COMMANDER Work Phone: [facility] 12-03-2023 15:28-0400 Body temperature 98.6 [degF] Ulices Moya CERTIFIED BENCH JEWELER TECHNICIAN.DIVISION COMMANDER Work Phone: [facility] 12-03-2023 15:28-0400 Body weight 78.9 kg Ulices Moya CERTIFIED BENCH JEWELER TECHNICIAN.DIVISION COMMANDER Work Phone: [facility] 12-03-2023 15:28-0400 Diastolic blood pressure 74 mm[Hg] Ulices Moya CERTIFIED BENCH JEWELER TECHNICIAN.DIVISION COMMANDER Work Phone: [facility] 12-03-2023 15:28-0400 Heart rate 56 /min Ulices Moya CERTIFIED BENCH JEWELER TECHNICIAN.DIVISION COMMANDER Work Phone: [facility] 12-03-2023 15:28-0400 Respiratory rate 18 /min Ulices Moya CERTIFIED BENCH JEWELER TECHNICIAN.DIVISION COMMANDER Work Phone: [facility] 12-03-2023 15:28-0400 SaO2% (BldA) [Mass fraction] 92 % Ulices Moya APRN.DIVISION COMMANDER Work Phone: [facility] 12-03-2023 15:28-0400 Systolic blood pressure 156 mm[Hg] Ulices Moya APRN.DIVISION COMMANDER Work Phone: [facility] 11-25-2023 11:03-0400 Diastolic blood pressure 73 mm[Hg] Lulu Staton APRN.DIVISION COMMANDER Work Phone: [facility] 11-25-2023 11:03-0400 Systolic blood pressure 135 mm[Hg] Lulu Staton APRN.DIVISION COMMANDER Work Phone: [facility] 11-25-2023 10:51-0400 Body mass index (BMI) [Ratio] 36.12 kg/m2 Lulu Staton APRN.DIVISION COMMANDER Work Phone: [facility] 11-25-2023 10:51-0400 Body weight 78.47 kg Lulu Staton APRN.DIVISION COMMANDER Work Phone: [facility] 11-25-2023 10:51-0400 Heart rate 56 /min Lulu Staton APRN.DIVISION COMMANDER Work Phone: [facility] 11-25-2023 10:51-0400 Respiratory rate 16 /min Lulu Staton APRN.DIVISION COMMANDER Work Phone: [facility] 09-07-2023 10:21-0400 Body mass index (BMI) [Ratio] 36.33 kg/m2 Sarah Yang PA-C Work Phone: [facility] 09-07-2023 10:21-0400 Body temperature 98.29 [degF] Sarah Yang PA-C Work Phone: [facility] 09-07-2023 10:21-0400 Body weight 78.93 kg Sarah Yang PA-C Work Phone: [facility] 09-07-2023 10:21-0400 Diastolic blood pressure 71 mm[Hg] Sarah Yang PA-C Work Phone: [facility] 09-07-2023 10:21-0400 Heart rate 52 /min Sarah Yang PA-C Work Phone: [facility] 09-07-2023 10:21-0400 Respiratory rate 20 /min Sarah Yang PA-C Work Phone: [facility] 09-07-2023 10:21-0400 SaO2% (BldA) [Mass fraction] 92 % Sarah Yang PA-C Work Phone: [facility] 09-07-2023 10:21-0400 Systolic blood pressure 114 mm[Hg] Sarah Yang PA-C Work Phone: [facility] 08-03-2023 11:34-0400 Body height 147.4 cm Pulm Wstr Work Phone: [facility] 08-03-2023 11:34-0400 Body weight 79.83 kg Pulm Wstr Work Phone: [facility] 08-03-2023 11:34-0400 Heart rate 55 /min Pulm Wstr Work Phone: [facility] 08-03-2023 11:34-0400 Respiratory rate 14 /min Pulm Wstr Work Phone: [facility] 08-03-2023 11:34-0400 SaO2% (BldA) [Mass fraction] 95 % Pulm Wstr Work Phone: [facility] 07-27-2023 12:55-0400 Body temperature 98.49 [degF] Sarah Yang PA-C Work Phone: [facility] 07-27-2023 12:55-0400 Body weight 80.29 kg Sarah Yang PA-C Work Phone: [facility] 07-27-2023 12:55-0400 Diastolic blood pressure 71 mm[Hg] Sarah Yang PA-C Work Phone: [facility] 07-27-2023 12:55-0400 Heart rate 52 /min Sarah Yang PA-C Work Phone: [facility] 07-27-2023 12:55-0400 Respiratory rate 16 /min Sarah Yang PA-C Work Phone: [facility] 07-27-2023 12:55-0400 SaO2% (BldA) [Mass fraction] 94 % Sarah Yang PA-C Work Phone: [facility] 07-27-2023 12:55-0400 Systolic blood pressure 139 mm[Hg] Sarah Yang PA-C Work Phone: [facility] 05-27-2023 10:00-0500 Body weight 80.74 kg Rufino Erickson MD Work Phone: [facility] 05-27-2023 10:00-0500 Diastolic blood pressure 66 mm[Hg] Rufino Erickson MD Work Phone: [facility] 05-27-2023 10:00-0500 Heart rate 55 /min Rufino Erickson MD Work Phone: [facility] 05-27-2023 10:00-0500 Respiratory rate 16 /min Rufino Erickson MD Work Phone: [facility] 05-27-2023 10:00-0500 SaO2% (BldA) [Mass fraction] 96 % Rufino Erickson MD Work Phone: [facility] 05-27-2023 10:00-0500 Systolic blood pressure 132 mm[Hg] Rufino Erickson MD Work Phone: [facility] 03-08-2023 12:53-0500 Body weight 79.38 kg Lulu Staton APRN.DIVISION COMMANDER Work Phone: [facility] 03-08-2023 12:53-0500 Diastolic blood pressure 66 mm[Hg] Lulu Staton APRN.DIVISION COMMANDER Work Phone: [facility] 03-08-2023 12:53-0500 Heart rate 58 /min Lulu Staton APRN.DIVISION COMMANDER Work Phone: [facility] 03-08-2023 12:53-0500 Respiratory rate 16 /min Lulu Kenneth CERTIFIED BENCH JEWELER TECHNICIAN.DIVISION COMMANDER Work Phone: [facility] 03-08-2023 12:53-0500 SaO2% (BldA) [Mass fraction] 96 % Lulu Staton CERTIFIED BENCH JEWELER TECHNICIAN.DIVISION COMMANDER Work Phone: [facility] 03-08-2023 12:53-0500 Systolic blood pressure 130 mm[Hg] Lulu Staton CERTIFIED BENCH JEWELER TECHNICIAN.DIVISION COMMANDER Work Phone: [facility] 03-05-2023 09:10-0500 Body temperature 98.1 [degF] Samanta Mock CERTIFIED BENCH JEWELER TECHNICIAN.DIVISION COMMANDER Work Phone: [facility] 03-05-2023 09:10-0500 Body weight 80.65 kg Samanta Mock CERTIFIED BENCH JEWELER TECHNICIAN.DIVISION COMMANDER Work Phone: [facility] 03-05-2023 09:10-0500 Diastolic blood pressure 72 mm[Hg] Samanta Mock CERTIFIED BENCH JEWELER TECHNICIAN.DIVISION COMMANDER Work Phone: [facility] 03-05-2023 09:10-0500 Heart rate 66 /min Samanta Mock CERTIFIED BENCH JEWELER TECHNICIAN.DIVISION COMMANDER Work Phone: [facility] 03-05-2023 09:10-0500 Respiratory rate 16 /min Samanta Mock CERTIFIED BENCH JEWELER TECHNICIAN.DIVISION COMMANDER Work Phone: [facility] 03-05-2023 09:10-0500 SaO2% (BldA) [Mass fraction] 96 % Samanta Mock CERTIFIED BENCH JEWELER TECHNICIAN.DIVISION COMMANDER Work Phone: [facility] 03-05-2023 09:10-0500 Systolic blood pressure 116 mm[Hg] Samanta Mock CERTIFIED BENCH JEWELER TECHNICIAN.DIVISION COMMANDER Work Phone: [facility] 02-12-2023 10:12-0400 Body temperature 100.09 [degF] Samanta Mock CERTIFIED BENCH JEWELER TECHNICIAN.DIVISION COMMANDER Work Phone: [facility] 02-12-2023 10:12-0400 Body weight 79.38 kg Samanta Mock CERTIFIED BENCH JEWELER TECHNICIAN.DIVISION COMMANDER Work Phone: [facility] 02-12-2023 10:12-0400 Diastolic blood pressure 68 mm[Hg] Samanta Mock CERTIFIED BENCH JEWELER TECHNICIAN.DIVISION COMMANDER Work Phone: [facility] 02-12-2023 10:12-0400 Heart rate 68 /min Samanta Mock CERTIFIED BENCH JEWELER TECHNICIAN.DIVISION COMMANDER Work Phone: [facility] 02-12-2023 10:12-0400 Respiratory rate 20 /min Samanta Mock CERTIFIED BENCH JEWELER TECHNICIAN.DIVISION COMMANDER Work Phone: [facility] 02-12-2023 10:12-0400 SaO2% (BldA) [Mass fraction] 93 % Samanta Mock CERTIFIED BENCH JEWELER TECHNICIAN.DIVISION COMMANDER Work Phone: [facility] 02-12-2023 10:12-0400 Systolic blood pressure 136 mm[Hg] Samanta Mock CERTIFIED BENCH JEWELER TECHNICIAN.DIVISION COMMANDER Work Phone: [facility] 01-11-2023 15:08-0400 Body temperature 98.71 [degF] Ulices Griffin CERTIFIED BENCH JEWELER TECHNICIAN.DIVISION COMMANDER Work Phone: [facility] 01-11-2023 15:08-0400 Body weight 80.2 kg Ulices Griffin CERTIFIED BENCH JEWELER TECHNICIAN.DIVISION COMMANDER Work Phone: [facility] 01-11-2023 15:08-0400 Diastolic blood pressure 70 mm[Hg] Ulices Griffin CERTIFIED BENCH JEWELER TECHNICIAN.DIVISION COMMANDER Work Phone: [facility] 01-11-2023 15:08-0400 Heart rate 52 /min Ulices Griffin CERTIFIED BENCH JEWELER TECHNICIAN.DIVISION COMMANDER Work Phone: [facility] 01-11-2023 15:08-0400 Respiratory rate 18 /min Ulices Griffin CERTIFIED BENCH JEWELER TECHNICIAN.DIVISION COMMANDER Work Phone: [facility] 01-11-2023 15:08-0400 SaO2% (BldA) [Mass fraction] 93 % Ulices Griffin CERTIFIED BENCH JEWELER TECHNICIAN.DIVISION COMMANDER Work Phone: [facility] 01-11-2023 15:08-0400 Systolic blood pressure 149 mm[Hg] Ulices Griffin CERTIFIED BENCH JEWELER TECHNICIAN.DIVISION COMMANDER Work Phone: [facility] 11-24-2022 12:55-0400 Body height 148 cm Sarah Yang PA-C Work Phone: [facility] 11-24-2022 12:55-0400 Body temperature 98.8 [degF] Sarah Yang PA-C Work Phone: [facility] 11-24-2022 12:55-0400 Body weight 80.29 kg Sarah Yang PA-C Work Phone: [facility] 11-24-2022 12:55-0400 Diastolic blood pressure 66 mm[Hg] Sarah Yang PA-C Work Phone: [facility] 11-24-2022 12:55-0400 Heart rate 57 /min Sarah Yang PA-C Work Phone: [facility] 11-24-2022 12:55-0400 Respiratory rate 18 /min Sarah Yang PA-C Work Phone: [facility] 11-24-2022 12:55-0400 Systolic blood pressure 100 mm[Hg] Sarah Yang PA-C Work Phone: [facility] 05-27-2022 11:35-0500 Body weight 80.29 kg Rufino Erickson MD Work Phone: [facility] 05-27-2022 11:35-0500 Diastolic blood pressure 70 mm[Hg] Rufino Erickson MD Work Phone: [facility] 05-27-2022 11:35-0500 Heart rate 54 /min Rufino Erickson MD Work Phone: [facility] 05-27-2022 11:35-0500 Respiratory rate 16 /min Rufino Erickson MD Work Phone: [facility] 05-27-2022 11:35-0500 Systolic blood pressure 112 mm[Hg] Rufino Erickson MD Work Phone: [facility] 03-27-2022 13:46-0500 Body height 147.3 cm Ulices Garcia MD Work Phone: [facility] 03-27-2022 13:46-0500 Body temperature 97.81 [degF] Ulices Garcia MD Work Phone: [facility] 03-27-2022 13:46-0500 Body weight 77.11 kg Ulices Garcia MD Work Phone: [facility] 03-27-2022 13:46-0500 Diastolic blood pressure 70 mm[Hg] Ulices Garcia MD Work Phone: [facility] 03-27-2022 13:46-0500 Heart rate 52 /min Ulices Garcia MD Work Phone: [facility] 03-27-2022 13:46-0500 SaO2% (BldA) [Mass fraction] 95 % Ulices Garcia MD Work Phone: [facility] 03-27-2022 13:46-0500 Systolic blood pressure 136 mm[Hg] Ulices Garcia MD Work Phone: [facility] 01-31-2022 12:27-0400 Body temperature 98.4 [degF] Shady Smiley MD Work Phone: [facility] 01-31-2022 12:27-0400 Body weight 80.11 kg Shady Smiley MD Work Phone: [facility] 01-31-2022 12:27-0400 Diastolic blood pressure 74 mm[Hg] Shady Smiley MD Work Phone: [facility] 01-31-2022 12:27-0400 Heart rate 64 /min Shady Smiley MD Work Phone: [facility] 01-31-2022 12:27-0400 Respiratory rate 20 /min Shady Smiley MD Work Phone: [facility] 01-31-2022 12:27-0400 SaO2% (BldA) [Mass fraction] 95 % Shady Smiley MD Work Phone: [facility] 01-31-2022 12:27-0400 Systolic blood pressure 128 mm[Hg] Shady Smiley MD Work Phone: [facility] 12-09-2021 15:12-0400 Body height 149 cm Tia Martinez MD Work Phone: [facility] 12-09-2021 15:12-0400 Body temperature 98.6 [degF] Tia Martinez MD Work Phone: [facility] 12-09-2021 15:12-0400 Body weight 80.29 kg Tia Martinez MD Work Phone: [facility] 12-09-2021 15:12-0400 Diastolic blood pressure 63 mm[Hg] Tia Martinez MD Work Phone: [facility] 12-09-2021 15:12-0400 Heart rate 56 /min Tia Martinez MD Work Phone: [facility] 12-09-2021 15:12-0400 SaO2% (BldA) [Mass fraction] 96 % Tia Martinez MD Work Phone: [facility] 12-09-2021 15:12-0400 Systolic blood pressure 132 mm[Hg] Tia Martinez MD Work Phone: [facility] 11-20-2021 10:29-0400 Body height 148 cm Sarah Yang PA-C Work Phone: [facility] 11-20-2021 10:29-0400 Body temperature 98.6 [degF] Sarah Yang PA-C Work Phone: [facility] 11-20-2021 10:29-0400 Body weight 79.38 kg Sarah Yang PA-C Work Phone: [facility] 11-20-2021 10:29-0400 Diastolic blood pressure 76 mm[Hg] Sarah Yang PA-C Work Phone: [facility] 11-20-2021 10:29-0400 Heart rate 60 /min Sarah Yang PA-C Work Phone: [facility] 11-20-2021 10:29-0400 Respiratory rate 18 /min Sarah Yang PA-C Work Phone: [facility] 11-20-2021 10:29-0400 Systolic blood pressure 120 mm[Hg] Sarah Yang PA-C Work Phone: [facility] 09-21-2021 14:05-0400 Body temperature 98.1 [degF] Kiera Kelley CERTIFIED BENCH JEWELER TECHNICIAN.DIVISION COMMANDER Work Phone: [facility] 09-21-2021 14:05-0400 Body weight 81.38 kg Kiera Kelley CERTIFIED BENCH JEWELER TECHNICIAN.DIVISION COMMANDER Work Phone: [facility] 09-21-2021 14:05-0400 Diastolic blood pressure 82 mm[Hg] Kiera Kelley CERTIFIED BENCH JEWELER TECHNICIAN.DIVISION COMMANDER Work Phone: [facility] 09-21-2021 14:05-0400 Heart rate 58 /min Kiera Kelley CERTIFIED BENCH JEWELER TECHNICIAN.DIVISION COMMANDER Work Phone: [facility] 09-21-2021 14:05-0400 Respiratory rate 18 /min Kiera Kelley CERTIFIED BENCH JEWELER TECHNICIAN.DIVISION COMMANDER Work Phone: [facility] 09-21-2021 14:05-0400 SaO2% (BldA) [Mass fraction] 95 % Kiera Kelley CERTIFIED BENCH JEWELER TECHNICIAN.DIVISION COMMANDER Work Phone: [facility] 09-21-2021 14:05-0400 Systolic blood pressure 132 mm[Hg] Kiera Kelley CERTIFIED BENCH JEWELER TECHNICIAN.DIVISION COMMANDER Work Phone: [facility] Encounters Encounter Date Encounter Type Care Provider Facility Start: 01-12-2025 Patient encounter procedure Daniela CONNER -Laboratory Specimen Work Phone: Start: 01-12-2025 ambulatory Daniela Chaparro ty:[facility] Start: 01-11-2025 End: 01-11-2025 ambulatory RUFINO TORRESEY Facility:[facility] Start: 01-11-2025 End: 01-11-2025 Patient encounter procedure Daniela CONNER -[facility] Work Phone: Start: 01-11-2025 End: 01-11-2025 ambulatory Rufion Erickson Facility[place] Start: 01-09-2025 End: 01-09-2025 ambulatory RUFINO ERICKSON Facility:[facility] Start: 01-05-2025 End: 01-05-2025 ambulatory SARAH YANG Facility:[facility] Start: 01-02-2025 End: 01-02-2025 OT/PT/Speech Visit Steve Mane [facility] Comment on above: Multiple falls (Prim carlitos Dx); Balance disorder; History of CVA (cerebrovascular accident); General weakness Start: 01-01-2025 End: 01-01-2025 Telephone encounter Rufino Erickson MD Work Phone: [facility] Comment on above: Forms ([employer]) Start: 12-29-2024 End: 12-29-2024 Follow-up encounter Lulu Staton APRN.DIVISION COMMANDER Work Phone: [facility] Comment on above: Results Start: 12-29-2024 End: 12-29-2024 Subsequent hospital visit by physician Xr [facility] Work Phone: Radiology Comment on above: Acute cough [R05.1] Start: 12-29-2024 End: 12-29-2024 Patient encounter procedure Lulu Staton APRN.DIVISION COMMANDER Work Phone: [facility] Comment on above: Black tarry stools ( Primary Dx); Acute cough; Rhonchi at left lung base Start: 12-29-2024 End: 12-29-2024 ambulatory LULU STATON Facility:[facility] Start: 12-28-2024 End: 12-28-2024 ambulatory Rufino Erickson MD Work Phone: [facility] Comment on above: Rectal Bleeding Start: 12-14-2024 End: 12-14-2024 Follow-up encounter Rufino Erickson MD Work Phone: [facility] Comment on above: Results Start: 12-14-2024 End: 12-14-2024 Patient encounter procedure [facility] Work Phone: Start: 12-14-2024 End: 12-14-[address] Rufino Erickson MD Work Phone: [facility] Start: 12-11-2024 End: 12-11-2024 Patient encounter procedure Rufino Erickson MD Work Phone: [facility] Comment on above: Multiple falls (Prim carlitos Dx); Balance disorder; History of CVA (cerebrovascular accident); General weakness; Urine frequency; Urgency of urination; Primary insomnia; Itching; Defecation symptom Start: 12-11-2024 End: 12-11-2024 ambulatory Nurse Intm/Famp Triage [facility] Work Phone: Nurse Phone Triage Comment on above: Urinary Frequency; F all Start: 12-07-2024 End: 12-07-2024 Patient encounter procedure Mónica HANSON -[facility] Work Phone: Start: 12-07-2024 End: 12-07-[address] Rufino Erickson MD Work Phone: -[facility] Start: 11-20-2024 End: 11-20-[address] Ramu Aguilar MD -[facility] Work Phone: Start: 11-20-2024 End: 11-20-[address] Rufino Erickson MD Work Phone: -[facility] Start: 11-10-2024 End: 11-10-2024 Follow-up encounter Sarah Yang PA-C Work Phone: [facility] Start: 11-03-2024 ambulatory LULU Boykin y:[facility] Start: 11-03-2024 End: 11-03-2024 Subsequent hospital visit by physician Gabe [facility] Work Phone: Radiology Comment on above: Open fracture of one rib of left side with routine healing, subsequent encounter [S22.32XD] Start: 10-31-2024 Registered Referred Mónica HANSON -[facility] Work Phone: Start: 10-31-2024 ambulatory Rufino Erickson Facility :[facility] Start: 10-31-2024 Non-patient / Non-visit Dr. Thong MARTE -[facility] Work Phone: Start: 10-27-2024 End: 10-27-2024 Chart abstracting Rufino Erickson MD Work Phone: [facility] Start: 10-26-2024 End: 10-26-2024 Patient encounter procedure Mónica HANSON -[facility] Work Phone: Start: 10-26-2024 End: 10-26-[address] Rufino Erickson MD Work Phone: -[facility] Start: 10-24-2024 End: 10-24-2024 Chart abstracting Rufino Erickson MD Work Phone: [facility] Comment on above: ext document ([facility] ER report) Start: 10-23-2024 End: 10-23-2024 Emergency department patient visit Dr. Rufino Erickson MD Work Phone: -Emergency Department Work Phone: Start: 10-19-2024 End: 10-19-2024 Patient encounter procedure Lulu Staton CERTIFIED BENCH JEWELER TECHNICIAN.DIVISION COMMANDER Work Phone: [facility] Comment on above: Open fracture of one rib of left side with routine healing, subsequent encounter (Primary Dx) Start: 10-19-2024 End: 10-19-2024 ambulatory LULU STATON Facility:[facility] Start: 10-07-2024 End: 10-07-2024 Subsequent hospital visit by physician Xr [facility] Work Phone: Radiology Comment on above: Rib pain on left lindsey e [R07.81] Start: 10-07-2024 End: 10-07-2024 ambulatory Rufino Erickson MD Work Phone: [facility] Comment on above: Fall Start: 10-07-2024 End: 10-07-2024 Office outpatient visit 25 minutes Cruz Schwanger CERTIFIED BENCH JEWELER TECHNICIAN.DIVISION COMMANDER Work Phone: [facility] Comment on above: Rib pain on left lindsey e (Primary Dx) Start: 09-29-2024 End: 09-29-2024 Telephone encounter Rufino Erickson MD Work Phone: [facility] Comment on above: Forms (Pre-Op) Start: 09-27-2024 End: 09-27-2024 ambulatory [facility] Facility:[facility] Start: 09-27-2024 Encounter for other preprocedural examination LULU STATON [facility] Start: 09-27-2024 End: 09-27-2024 Patient encounter procedure Rufino Erickson MD Work Phone: [facility] Comment on above: Pre-operative cleara nce (Primary Dx); Vitreous hemorrhage, right eye (HCC); Hypertension, essential; Elevated hemoglobin A1c; History of CVA (cerebrovascular accident); Paroxysmal atrial fibrillation (HCC); RBBB Start: 09-27-2024 End: 09-27-2024 Preoperative state Rufino Erickson MD Work Phone: [facility] Work Phone: Start: 09-27-2024 End: 09-27-20[facility] Start: 08-24-2024 End: 08-24-2024 Patient encounter procedure Melisa CONNER -[facility] Work Phone: Start: 08-24-2024 End: 08-24-2024 ambulatory Rufino Erickson Facility[place] Start: 07-13-2024 End: 07-13-2024 ambulatory Cindy Monique APRN.DIVISION COMMANDER Work Phone: [facility] Comment on above: RESULTS Start: 07-13-2024 End: 07-13-2024 E-mail encounter from caregiver Cindy Monique APRN.DIVISION COMMANDER Work Phone: [facility] Start: 07-12-2024 End: 07-12-2024 Subsequent hospital visit by physician [facility] Work Phone: Radiology Comment on above: Flu-like symptoms [R 68.89] Start: 07-12-2024 End: 07-12-2024 ambulatory RUFINO ERICKSON Facility:[facility] Start: 07-12-2024 End: 07-12-2024 Patient encounter procedure Harrison Barryluis echandrakant DIVISION COMMANDER Work Phone: [facility] Comment on above: Flu-like symptoms (P rimary Dx); Acute upper respiratory infection, unspecified Start: 07-12-2024 End: 09-11-2024 Follow-up encounter Harrison Osborne APRN.DIVISION COMMANDER Work Phone: [facility] Start: 07-06-2024 End: 07-07-2024 Follow-up encounter Rufino Erickson MD Work Phone: [facility] Comment on above: Results Start: 07-05-2024 End: 07-05-2024 ambulatory RUFINO ERICKSON Facility:[facility] Start: 07-05-2024 End: 07-05-2024 Patient encounter procedure Rufino Erickson MD Work Phone: [facility] Comment on above: Hypertension, essent ial (Primary Dx); Elevated hemoglobin A1c; Paroxysmal atrial fibrillation (HCC); History of CVA (cerebrovascular accident); Left hemiparesis (HCC); Pseudothrombocytopenia; Balance disorder Start: 06-21-2024 ambulatory Rufinomargarita Erickson Facility :[facility] Start: 06-14-2024 ambulatory Rufino Shannon Facility :[facility] Start: 06-12-2024 End: 06-12-2024 Chart abstracting John Gomez MA [facility] T[facility] painter Comment on above: Hospital Follow Up ( [facility] ) Start: 06-09-2024 End: 06-09-2024 ambulatory Rufino Erickson Facility:[facility] Start: 06-08-2024 End: 06-08-2024 [facility] Start: 06-08-2024 End: 06-08-2024 ambulatory [facility] Facility:[facility] Start: 06-07-2024 ambulatory [facility] Facility :[facility] Start: 06-06-2024 End: 06-06-2024 ambulatory [facility] Facility:[facility] Start: 05-31-2024 End: 05-31-2024 Telephone encounter Rufino Erickson MD Work Phone: [facility] Comment on above: Patient Update Start: 05-31-2024 End: 05-31-2024 ambulatory Rufino Erickson [place] Start: 05-30-2024 End: 05-30-2024 ambulatory RUFINO A SHANNON Facility:[facility] Start: 05-30-2024 End: 05-30-2024 Patient encounter procedure Rufino Erickson MD Work Phone: [facility] Comment on above: Thrombocytopenia (HC C) (Primary Dx); Paroxysmal atrial fibrillation (HCC); History of CVA (cerebrovascular accident); Left hemiparesis (HCC); Dementia without behavioral disturbance (HCC); Bacterial pneumonia; Hyponatremia Start: 05-24-2024 ambulatory [facility] Facility :[facility] Start: 05-23-2024 End: 05-23-2024 ambulatory [facility] Facility:[facility] Start: 05-17-2024 ambulatory [facility] Facility :[facility] Start: 05-16-2024 End: 05-16-2024 ambulatory [facility] Facility:[facility] Start: 05-10-2024 ambulatory [facility] Facility :[facility] Start: 05-09-2024 End: 05-09-2024 ambulatory [facility] Facility:[facility] Start: 05-04-2024 End: 05-04-2024 ambulatory [facility] Facility:[facility] Start: 05-03-2024 End: 05-03-2024 Chart abstracting Rufino Erickson MD Work Phone: [facility] Comment on above: D/C Summary Events ( Transfer to Extended Care Summary) Start: 04-24-2024 End: 04-24-2024 Chart abstracting John Gomez MA [facility] painter Comment on above: ER F/U ([facility] ) Start: 04-20-2024 End: 05-03-2024 Evaluation and management of inpatient Rufino Erickson Facility:[facility] Start: 04-20-2024 End: 04-20-2024 Chart abstracting Rufino Erickson MD Work Phone: [facility] Comment on above: ER Discharge Summary (H&P, Neurology Consult) Start: 04-20-2024 ambulatory Rufino Erickson Facility :[facility] Start: 04-20-2024 ambulatory Shaheed Burkett Facility:[facility] Start: 04-18-2024 ambulatory Jose Diamond Facility:[facility] Start: 04-18-2024 End: 04-20-2024 Evaluation and management of inpatient Shaheed Burkett Facility:[facility] Start: 04-18-2024 End: 04-18-2024 Telephone encounter Tracie Parker LPN Work Phone: [facility] Comment on above: Home Care (Delay SOC ) Home Care (Confirmat ion Call ) Patient Update Start: 04-17-2024 End: 04-17-2024 Telephone encounter Lulu Staton APRN.CNP Work Phone: [facility] Comment on above: Home Care Results Start: 04-17-2024 End: 04-17-2024 Subsequent hospital visit by physician Xr [facility] Gamal Work Phone: Radiology Comment on above: RSV (acute bronchiol itis due to respiratory syncytial virus) [J21.0] Start: 04-17-2024 End: 04-17-2024 Patient encounter procedure Lulu Staton APRN.CNP Work Phone: [facility] Comment on above: Generalized weakness (Primary Dx); RSV (acute bronchiolitis due to respiratory syncytial virus) Start: 04-17-2024 End: 04-17-2024 ambulatory LULU STATON Facility:[facility] Start: 04-07-2024 End: 04-09-2024 Evaluation and management of inpatient Shanika Bruno Facility:[facility] Start: 04-07-2024 End: 04-07-2024 ambulatory RUFINO Kenn SHANNON Facility:[facility] Start: 04-07-2024 End: 04-07-2024 Patient encounter procedure Ulices Moya APRN.DIVISION COMMANDER Work Phone: [facility] Comment on above: Trouble breathing (P rimary Dx); Rhonchi Start: 02-18-2024 End: 02-18-2024 Refill Rufino Erickson MD Work Phone: [facility] Comment on above: Refill Request Start: 01-11-2024 End: 01-11-2024 Telephone encounter Rufino Erickson MD Work Phone: [facility] Comment on above: Results Start: 01-11-2024 End: 01-11-2024 Subsequent hospital visit by physician Xr [facility] Work Phone: Radiology Comment on above: COVID-19 virus infec tion [U07.1] Start: 01-11-2024 End: 01-11-2024 Patient encounter procedure Rufino Erickson MD Work Phone: [facility] Comment on above: COVID-19 virus infec tion (Primary Dx); Persistent cough Start: 12-28-2023 End: 12-28-2023 Chart abstracting Rufino Erickson MD Work Phone: [facility] Comment on above: Outside Cardiology Start: 12-03-2023 End: 12-03-2023 Subsequent hospital visit by physician Xr [facility] [place] Work Phone: Radiology Comment on above: Injury of left upper extremity, initial encounter [S49.92XA] Start: 12-03-2023 End: 12-03-2023 Patient encounter procedure Ulices Moya APRN.DIVISION COMMANDER Work Phone: [facility] Comment on above: Injury of left upper extremity, initial encounter (Primary Dx) Start: 11-25-2023 End: 11-25-2023 Patient encounter procedure Lulu Staton APRN.DIVISION COMMANDER Work Phone: [facility] Comment on above: Essential hypertensi on (Primary [...] of both knees Start: 11-17-2023 Chart abstracting John Gomez MA [facility] Comment on above: ER F/U ([facility] ) Start: 10-19-2023 Telephone encounter Sarahkranthi garcia PA-C Work Phone: [facility] Comment on above: Patient Update Start: 10-11-2023 Refill Rufino oquendo MD Work Phone: [facility] Comment on above: Refill Request Start: 09-07-2023 End: 09-07-2023 Patient encounter procedure Sarah Yang PA-C Work Phone: [facility] Comment on above: Chronic cough (Prima ry Dx) Start: 08-04-2023 Telephone encounter Sarahkranthi garcia PA-C Work Phone: [facility] Comment on above: Results Start: 08-03-2023 End: 08-03-2023 ambulatory [facility]m [facility] Work Phone: [facility] Comment on above: Spirometry Start: 08-03-2023 End: 08-03-2023 Patient encounter procedure [facility] Start: 07-28-2023 Telephone encounter Sarah Aditi garcia PA-C Work Phone: [facility] Comment on above: Results Start: 07-27-2023 End: 07-27-2023 Subsequent hospital visit by physician Xr [facility] Work Phone: Radiology Comment on above: Acute cough [R05.1] Start: 07-27-2023 End: 07-27-2023 Patient encounter procedure Sarah Yang PA-C Work Phone: [facility] Comment on above: Acute cough (Primary Dx); Chronic cough Start: 07-09-2023 Refill Rufino oquendo MD Work Phone: [facility] Comment on above: Refill Request Start: 06-28-2023 Refill Lulu chan APRN.CNP Work Phone: [facility] Comment on above: Refill Request Start: 05-27-2023 End: 05-27-2023 Patient encounter procedure Rufino Erickson MD Work Phone: [facility] Comment on above: Hypertension, essent ial (Primary Dx); Elevated hemoglobin A1c; Paroxysmal atrial fibrillation (HCC); Pseudothrombocytopenia; Obesity, Class II, BMI 35-39.9; Encounter for immunization; Common wart; Impacted cerumen of right ear Start: 03-29-2023 Chart abstracting Rufino birmingham MD Work Phone: [facility] Comment on above: Outside Cardiology Start: 03-29-2023 Telephone encounter Lulu sims APRN.DIVISION COMMANDER Work Phone: [facility] Comment on above: Results Start: 03-26-2023 End: 03-26-2023 Subsequent hospital visit by physician Xr [facility] Work Phone: Radiology Comment on above: Acute cough [R05.1] Start: 03-24-2023 Telephone encounter Rufino Erickson MD Work Phone: [facility] Comment on above: repeat chest xray re sults Start: 03-19-2023 End: 03-19-2023 Subsequent hospital visit by physician Xr [facility] Work Phone: Radiology Comment on above: Acute cough [R05.1] Start: 03-08-2023 End: 03-08-2023 Patient encounter procedure Lulu Staton APRN.DIVISION COMMANDER Work Phone: [facility] Comment on above: Acute cough Start: 03-05-2023 End: 03-05-2023 Subsequent hospital visit by physician Xr [facility] Work Phone: Radiology Comment on above: Subacute cough [R05. 2] Start: 03-05-2023 End: 03-05-2023 Patient encounter procedure Samanta Mock APRN.DIVISION COMMANDER Work Phone: [facility] Comment on above: Subacute cough (Prim carlitos Dx); Bronchospasm Start: 02-26-2023 Telephone encounter Rufino Erickson MD Work Phone: [facility] Comment on above: Appointment Start: 02-12-2023 End: 02-12-2023 Subsequent hospital visit by physician Gabe [facility] Work Phone: Radiology Comment on above: Acute cough [R05.1] Start: 02-12-2023 End: 02-12-2023 Patient encounter procedure Samanta Romerosandy YIP.DIVISION COMMANDER Work Phone: [facility] Comment on above: Acute cough (Primary Dx); Bacterial pneumonia Start: 01-11-2023 End: 01-11-2023 Patient encounter procedure Ulices Moya APRN.DIVISION COMMANDER Work Phone: [facility] Comment on above: Protracted URI (Prim carlitos Dx) Start: 12-28-2022 End: 12-28-2022 ambulatory Tiffani O'Justin PT [facility] Comment on above: 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 (Primary Dx) Start: 12-18-2022 End: 12-18-2022 ambulatory Jojo Kashuba EXECUTIVE DIRECTOR OF MARKETING Work Phone: [facility] Comment on above: 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 (Primary Dx) Start: 12-11-2022 End: 12-11-2022 ambulatory Jojo Kashuba EXECUTIVE DIRECTOR OF MARKETING Work Phone: [facility] Comment on above: 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 (Primary Dx) Start: 12-07-2022 End: 12-07-2022 ambulatory Tiffani O'Justin PT [facility] Comment on above: 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 (Primary Dx) Start: 11-30-2022 End: 11-30-2022 ambulatory Tiffani O'Justin PT [facility] Comment on above: 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 (Primary Dx) Start: 11-26-2022 Telephone encounter Sarah garcia PA-C Work Phone: [facility] Comment on above: Results Start: 11-25-2022 Telephone encounter Sarah garcia PA-C Work Phone: [facility] Comment on above: Results Start: 11-24-2022 End: 11-24-2022 Subsequent hospital visit by physician Gabe [facility] Work Phone: Radiology Comment on above: 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 [M54.50, G89.29] Start: 11-24-2022 End: 11-24-2022 Patient encounter procedure Sarah Yang PA-C Work Phone: [facility] Comment on above: Encounter for Medica re annual wellness exam (Primary Dx); Advance directive discussed with patient; Osteopenia, senile; Obesity, Class II, BMI 35-39.9; Hypertension, essential; Paroxysmal atrial fibrillation (HCC); Elevated hemoglobin A1c; Primary osteoarthritis of both knees; 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; Suprapubic pain; Verruca Start: 07-20-2022 Refill Rufino oquendo MD Work Phone: [facility] Comment on above: Refill Request Start: 07-15-2022 Refill Sarah Champaign on PA-C Work Phone: [facility] Comment on above: Refill Request Start: 07-04-2022 Chart abstracting Rufino birmingham MD Work Phone: [facility] Comment on above: Consult Start: 05-27-2022 End: 05-27-2022 Patient encounter procedure Rufino Erickson MD Work Phone: [facility] Comment on above: Hypertension, essent ial (Primary Dx); Elevated hemoglobin A1c; Paroxysmal atrial fibrillation (HCC); Pseudothrombocytopenia; Obesity, Class II, BMI 35-39.9; Medication management Start: 04-23-2022 Refill Sarah Thurston on PA-C Work Phone: [facility] Comment on above: Refill Request Start: 03-27-2022 End: 03-27-2022 Patient encounter procedure Ulices Garcia MD Work Phone: [facility] Comment on above: Bronchitis (Primary Dx) [...] procedure Tia Martinez MD Work Phone: [facility] Start: 11-28-2021 Telephone encounter Sarah garcia PA-C Work Phone: [facility] Comment on above: Results Appointment Start: 11-21-2021 Telephone encounter Sarah garcia PA-C Work Phone: [facility] Comment on above: Results Start: 11-20-2021 End: 11-20-2021 Patient encounter procedure Sarah Yang PA-C Work Phone: [facility] Comment on above: Encounter for Medica re annual wellness exam (Primary Dx); Advanced care planning/counseling discussion; Hypertension, essential; Paroxysmal atrial fibrillation (HCC); Elevated hemoglobin A1c; Primary osteoarthritis of both knees; Obesity, Class II, BMI 35-39.9; Osteopenia, senile Start: 10-17-2021 Refill Sarah Thurston on PA-C Work Phone: [facility] Comment on above: Refill Request Start: 09-22-2021 End: 09-22-2021 Subsequent hospital visit by physician Xr [facility] Work Phone: Radiology Comment on above: Cough [R05.9] Start: 09-21-2021 End: 09-21-2021 Patient encounter procedure Kiera Benson APRN.DIVISION COMMANDER Work Phone: [facility] Comment on above: Cough (Primary Dx); Acute non-recurrent pansinusitis Start: 05-19-2021 Patient encounter procedure Kiera Benson DIVISION COMMANDER Work Phone: [facility] Work Phone: Start: 11-21-2020 End: 11-21-2020 Subsequent hospital visit by physician Gabe [facility] Work Phone: Radiology Comment on above: Elbow pain, left [M2 5.522] Start: 03-17-2018 Ambulatory RAMO JUN Facility :[facility] Start: 07-15-2017 End: 07-15-2017 Ambulatory RAMO BARAHONA Facility:[facility] Start: 06-08-2017 End: 06-09-2017 Ambulatory TYLER Chandrakant RAYA Facility[facility] Start: 06-03-2017 End: 06-04-2017 Ambulatory BRANDEE Roney ALAS Facility:[facility] Start: 01-16-2017 End: 01-17-2017 Emergency department patient visit ROCIO FERGUSON Facility:[facility] Start: 12-04-2016 End: 04-01-2017 Ambulatory [facility] Facility:[facility] Procedures Date Procedure Procedure Detail Performing Clinician Start: 01-12-[address] e detection [address] Rufino Erickson MD Work Phone: Start: 01-12-[address] Rufino Erickson MD Work Phone: Start: 01-12-[address] Nicky Erickson MD Work Phone: Comment on above: Test Ordered: [id number] Stool CultureSalmonella/Shigella Screen Note: CB Final report Reference Range: .Result 1 Comment CB Reference Range: .No Salmonella or Shigella recovered.Campylobacter Culture Note: CB Final report Reference Range: .Result 1 Comment CB Reference Range: .No Campylobacter species isolated.E coli Shiga Toxin EIA Negative CB Reference Range: NegativePerformed at: - [facility] [id number] Director: Bob Ring PhD, Phone: [phone] Start: 12-29-2024 Radiologic exam chest 2 views Lulu Staton APRN.DIVISION COMMANDER Work Phone: Start: 10-23-2024 Urnls dip stick/tabl [...] teroant ch minimum 3 views Cruz James CERTIFIED BENCH JEWELER TECHNICIAN.DIVISION COMMANDER Work Phone: Start: 07-12-2024 Radiologic exam chest 2 views Harrison Jhonnyjoce CERTIFIED BENCH JEWELER TECHNICIAN.DIVISION COMMANDER Work Phone: Start: 04-17-2024 Radiologic exam chest 2 views Lulu Staton CERTIFIED BENCH JEWELER TECHNICIAN.DIVISION COMMANDER Work Phone: Start: 01-11-2024 Radiologic exam chest 2 views Rufino Erickson MD Work Phone: Start: 12-03-2023 Radex elbow complete minimum 3 views Ulices Moya CERTIFIED BENCH JEWELER TECHNICIAN.DIVISION COMMANDER Work Phone: Start: 11-25-2023 Adult depression scr eening assessment Lulu Staton CERTIFIED BENCH JEWELER TECHNICIAN.DIVISION COMMANDER Work Phone: Start: 08-03-2023 Brncdilat rspse spmt [...] Radiologic exam chest 2 views Lulu Staton CERTIFIED BENCH JEWELER TECHNICIAN.DIVISION COMMANDER Work Phone: Start: 03-19-2023 Radiologic exam chest 2 views Lulu Staton CERTIFIED BENCH JEWELER TECHNICIAN.DIVISION COMMANDER Work Phone: Start: 03-05-2023 Radiologic exam chest 2 views Samanta Mock CERTIFIED BENCH JEWELER TECHNICIAN.DIVISION COMMANDER Work Phone: Start: 02-12-2023 Radiologic exam chest 2 views Samanta Mock CERTIFIED BENCH JEWELER TECHNICIAN.DIVISION COMMANDER Work Phone: Start: 11-24-2022 Radex spine lumbosac ral 2/3 views Sarah Yang PA-C Work Phone: Start: 05-27-2022 Hemoglobin A1c/Hemoglobin.total in Blood Rufino Erickson MD Work Phone: Start: 09-22-2021 Radiologic exam chest 2 views Kiera Benson CERTIFIED BENCH JEWELER TECHNICIAN.DIVISION COMMANDER Work Phone: Start: 11-21-2020 Radex elbow complete minimum 3 views Shady Smiley MD Work Phone: Plan of Treatment Date Care Activity Detail Author Start: 12-12-2027 Diabetes Screening Diabetes Screening [facility] Start: 11-18-2027 Urine microalbumin profile [facility] Start: 09-28-2027 Diabetes Screening Diabetes Screening [facility] Start: 07-06-2027 Diabetes Screening Diabetes Screening [facility] Start: 11-15-2026 Diabetes Screening Diabetes Screening [facility] Start: 05-27-2026 Diabetes Screening Diabetes Screening [facility] Start: 11-24-2025 DIABETES SCREEN DIABETES SCREEN [facility] Start: 11-24-2025 Diabetes Screening Diabetes Screening [facility] Start: 05-27-2025 DIABETES SCREEN DIABETES SCREEN [facility] Start: 02-08-2025 End: 02-08-2025 OT/PT/Speech Visit 02/08/2025 10:45 AM EDT OT/PT/Speech Visit [facility] [address] [place] [address] Steve Mane, PT [address] [facility] [place] [address] Dx: Multiple falls [R29.6]; Balance disorder [R26.89]; History of CVA (cerebrovascular accident) [Z86.73]; General weakness [R53.1] [facility] Comment on above: Dx: Multiple falls [R29.6]; Balance diso rder [R26.89]; History of CVA (cerebrovascular accident) [Z86.73]; General weakness [R53.1] Start: 02-06-2025 End: 02-06-2025 OT/PT/Speech Visit 02/06/2025 11:00 AM EDT OT/PT/Speech Visit [facility] [address] [place] [address] Jojo Herring, EXECUTIVE DIRECTOR OF MARKETING [address] [place] [address] Dx: Multiple falls [R29.6]; Balance disorder [R26.89]; History of CVA (cerebrovascular accident) [Z86.73]; General weakness [R53.1] [facility] Comment on above: Dx: Multiple falls [R29.6]; Balance diso rder [R26.89]; History of CVA (cerebrovascular accident) [Z86.73]; General weakness [R53.1] Start: 02-01-2025 End: 02-01-2025 OT/PT/Speech Visit 02/01/2025 10:45 AM EDT OT/PT/Speech Visit [facility] [address] [place] [address] Steve Mane, PT [address] [facility] [place] [place] [address] Dx: Multiple falls [R29.6]; Balance disorder [R26.89]; History of CVA (cerebrovascular accident) [Z86.73]; General weakness [R53.1] [facility] Comment on above: Dx: Multiple falls [R29.6]; Balance diso rder [R26.89]; History of CVA (cerebrovascular accident) [Z86.73]; General weakness [R53.1] Start: 01-30-2025 End: 01-30-2025 OT/PT/Speech Visit 01/30/2025 11:45 AM EDT OT/PT/Speech Visit [facility] [address] [facility], [place] [id number] Jojo Herring, EXECUTIVE DIRECTOR OF MARKETING [address] [place], [place] [phone] Dx: Multiple falls [R29.6]; Balance disorder [R26.89]; History of CVA (cerebrovascular accident) [Z86.73]; General weakness [R53.1] [facility] Comment on above: Dx: Multiple falls [R29.6]; Balance diso rder [R26.89]; History of CVA (cerebrovascular accident) [Z86.73]; General weakness [R53.1] Start: 01-25-2025 End: 01-25-2025 OT/PT/Speech Visit 01/25/2025 10:45 AM EDT OT/PT/Speech Visit [facility] [address], [place] [phone] Steve Mane, PT [address] [place], [place] [phone] Dx: Multiple falls [R29.6]; Balance disorder [R26.89]; History of CVA (cerebrovascular accident) [Z86.73]; General weakness [R53.1] [facility] Comment on above: Dx: Multiple falls [R29.6]; Balance diso rder [R26.89]; History of CVA (cerebrovascular accident) [Z86.73]; General weakness [R53.1] Start: 01-23-2025 End: 01-23-2025 OT/PT/Speech Visit 01/23/2025 3:30 PM EDT OT/PT/Speech Visit [facility] [address] [place] [address] Jojo Herring, EXECUTIVE DIRECTOR OF MARKETING [address] [place] [address] Dx: Multiple falls [R29.6]; Balance disorder [R26.89]; History of CVA (cerebrovascular accident) [Z86.73]; General weakness [R53.1] [facility] Comment on above: Dx: Multiple falls [R29.6]; Balance diso rder [R26.89]; History of CVA (cerebrovascular accident) [Z86.73]; General weakness [R53.1] Start: 01-18-2025 End: 01-18-2025 OT/PT/Speech Visit 01/18/2025 5:15 PM EDT OT/PT/Speech Visit [facility] [address] [place] [address] Steve Mane, PT [address] [facility] [place] [address] Dx: Multiple falls [R29.6]; Balance disorder [R26.89]; History of CVA (cerebrovascular accident) [Z86.73]; General weakness [R53.1] [facility] Comment on above: Dx: Multiple falls [R29.6]; Balance diso rder [R26.89]; History of CVA (cerebrovascular accident) [Z86.73]; General weakness [R53.1] Start: 01-16-2025 End: 01-16-2025 OT/PT/Speech Visit 01/16/2025 2:45 PM EDT OT/PT/Speech Visit [facility] [address] [place] [address] Jojo Herring, EXECUTIVE DIRECTOR OF MARKETING [address] [place] [address] Dx: Multiple falls [R29.6]; Balance disorder [R26.89]; History of CVA (cerebrovascular accident) [Z86.73]; General weakness [R53.1] [facility] Comment on above: Dx: Multiple falls [R29.6]; Balance diso rder [R26.89]; History of CVA (cerebrovascular accident) [Z86.73]; General weakness [R53.1] Start: 01-16-2025 End: 01-16-2025 Patient encounter procedure Departed Physician/Provider Office Visit -[facility] Work Phone: Start: 01-11-2025 End: 01-11-2025 OT/PT/Speech Visit 01/11/2025 6:00 PM EDT OT/PT/Speech Visit [facility] [address], [place] [phone] Steve Mane, PT [address] [place], [place] [phone] Dx: Multiple falls [R29.6]; Balance disorder [R26.89]; History of CVA (cerebrovascular accident) [Z86.73]; General weakness [R53.1] [facility] Comment on above: Dx: Multiple falls [R29.6]; Balance diso rder [R26.89]; History of CVA (cerebrovascular accident) [Z86.73]; General weakness [R53.1] Start: 01-09-2025 End: 01-09-2025 OT/PT/Speech Visit 01/09/2025 2:15 PM EDT OT/PT/Speech Visit [facility] [address], [place] [phone] Steve Mane, PT [address] [place], [place] [phone] Dx: Multiple falls [R29.6]; Balance disorder [R26.89]; History of CVA (cerebrovascular accident) [Z86.73]; General weakness [R53.1] [facility] Comment on above: Dx: Multiple falls [R29.6]; Balance diso rder [R26.89]; History of CVA (cerebrovascular accident) [Z86.73]; General weakness [R53.1] Start: 01-05-2025 End: 01-05-2025 Patient encounter procedure 01/05/2025 11:40 AM EDT Office Visit [facility] [address] [place], [place] [address] Sarah Yang PA-C [address] [place], [place] [phone] Medicare wellness [facility] Comment on above: Medicare wellness Start: 01-02-2025 End: 01-02-2025 OT/PT/Speech Visit 01/02/2025 10:45 AM EDT OT/PT/Speech Visit [facility] [address] [place], [place] [phone] Steve Mane, PT [address] [place], [place] [id number] Dx: Multiple falls [R29.6]; Balance disorder [R26.89]; History of CVA (cerebrovascular accident) [Z86.73]; General weakness [R53.1] [facility] Comment on above: Dx: Multiple falls [R29.6]; Balance diso rder [R26.89]; History of CVA (cerebrovascular accident) [Z86.73]; General weakness [R53.1] Start: 12-29-2024 End: 12-29-2024 Patient encounter procedure 12/29/2024 9:40 AM EDT Office Visit [facility] [address] [place], [place] [phone] Lulu Staton APRN.[facility] [address] [place], [place] [phone] Rectal Bleeding. See triage. [facility] Comment on above: Rectal Bleeding. See triage. Start: 12-18-2024 Influenza vaccination Influenza Vaccine (#1) [facility] Start: 12-14-2024 End: 12-14-2024 Evaluation of diagnostic study results [facility] Start: 12-11-2024 End: 03-12-2025 Bacteria identified in Urine by Culture BACTERIAL CULTURE, URINE Microbiology Routine Urine frequency Expected: 12/11/2024, Expires: 03/12/2025 [facility] Comment on above: Expected: 12/11/2024, Expires: Start: 12-11-2024 End: 03-12-2025 CBC W Auto Differential panel - Blood [facility] Comment on above: Expected: 12/11/2024, Expires: Start: 12-11-2024 End: 03-12-2025 Comprehensive metabolic 2000 panel - Serum or Plasma [facility] Work Phone: Comment on above: Expected: 12/11/2024, Expires: Start: 12-11-2024 End: 12-11-2024 Patient encounter procedure 12/11/2024 2:00 PM EDT Office Visit [facility] [address] [place] [address] Rufino Erickson MD [address] [place] [id number] Falling a lot , frequent bathroom trips. [facility] Comment on above: Falling a lot , frequent bathroom trips. Start: 12-11-2024 End: 03-12-2025 Thyrotropin [Units/volume] in Serum or Plasma [facility] Comment on above: Expected: 12/11/2024, Expires: Start: 12-11-2024 End: 03-12-2025 Urinalysis complete panel - Urine URINALYSIS, WITH MICROSCOPIC Lab Routine Urine frequency Expected: 12/11/2024, Expires: 03/12/2025 [facility] Comment on above: Expected: 12/11/2024, Expires: Start: 12-07-2024 End: 12-07-2024 Evaluation of diagnostic study results [facility] Start: 11-24-2024 Anxiety Screening Anxiety Screening [facility] Start: 11-24-2024 Depression Screening Depression Screening [facility] Start: 11-24-2024 Medicare Annual Wellness Visit Medicare Annual Wellness Visit [facility] Start: 11-20-2024 DIABETES SCREEN DIABETES SCREEN [facility] Start: 11-02-2024 End: 11-18-2025 XR Ribs - left 2 Views XR RIBS 2V AP/OBL LEFT Radiology Routine Open fracture of one rib of left side with routine healing, subsequent encounter Expected: 11/02/2024, Expires: 11/18/2025 [facility] Work Phone: Comment on above: Expected: 11/02/2024, Expires: Start: 10-23-2024 End: 10-23-2024 [facility] Start: 10-23-2024 Bacteria identified in Blood by Culture Blood Culture [facility] Start: 10-23-2024 Bacteria identified in Urine by Culture Urine Culture [facility] Start: 10-23-2024 Blood culture Blood Culture [facility] Start: 10-19-2024 End: 10-19-2024 Patient encounter procedure 10/19/2024 10:40 AM EDT Office Visit [facility] [address] [place] [phone] Lulu Staton APRN.[facility] [address] [place], [place] [phone] urg care f/u [facility] Comment on above: urg care f/u Start: 08-01-2024 End: 08-01-2024 Patient encounter procedure 08/01/2024 11:20 AM EDT Office Visit [facility] [address] [place] [phone] Rufino Erickson MD [address] [place], [place] [phone] follow up on fdc discharge [facility] Comment on above: follow up on fdc discharge Start: 07-05-2024 End: 10-04-2024 CBC W Auto Differential panel - Blood [facility] Comment on above: Expected: 07/05/2024, Expires: Start: 07-05-2024 End: 10-04-2024 Comprehensive metabolic 2000 panel - Serum or Plasma [facility] Work Phone: Comment on above: Expected: 07/05/2024, Expires: Start: 07-05-2024 End: 10-04-2024 LIPID PANEL, NONFASTING [facility] Comment on above: Expected: 07/05/2024, Expires: Start: 05-30-2024 End: 05-30-2024 Patient encounter procedure 05/30/2024 11:00 AM EST Office Visit [facility] [address] [place] [phone] Rufino Erickson MD [address] [place] [address] 6 month follow up [facility] Comment on above: 6 month follow up Start: 05-26-2024 End: 08-25-2024 Hemoglobin A1c in Blood HEMOGLOBIN A1C Lab Routine Elevated hemoglobin A1c Expected: 05/26/2024, Expires: 08/25/2024 [facility] Work Phone: Comment on above: Expected: 05/26/2024, Expires: Start: 05-19-2024 DIABETES SCREEN DIABETES SCREEN [facility] Start: 05-10-2024 End: 05-10-2024 Patient encounter procedure 05/10/2024 11:20 AM EST Office Visit [facility] [address] [place] [address] Rufino Erickson MD [address] [place], [place] [phone] Hospital DC follow-up [facility] Comment on above: Hospital DC follow-up Start: 04-19-2024 Advance Directive Discussion Advance Directive Discussion [facility] Start: 12-19-2023 Covid-19 Vaccine () Covid-19 Vaccine () [facility] Start: 12-19-2023 Covid-19 Vaccine ( season) Covid-19 Vaccine () [facility] Start: 12-19-2023 Influenza vaccination Influenza Vaccine (#1) [place] [facility] Start: 11-25-2023 End: 11-25-2023 Patient encounter procedure 11/25/2023 11:00 AM EDT Office Visit Family [facility] [address] [place], [place] [phone] Lulu Staton, CERTIFIED BENCH JEWEL[employer] TECHNICIAN.DIVISION COMMANDER [address] [place], [place] [address] Extensive Medicare Wellness [facility] Comment on above: Extensive Medicare Wellness Start: 11-12-2023 End: 02-11-2024 CBC W Auto Differential panel - Blood CBC + DIFF Lab Routine Pseudothrombocytopenia Expected: 11/12/2023, Expires: 02/11/2024 [facility] Work Phone: Comment on above: Expected: 11/12/2023, Expires: Start: 11-12-2023 End: 02-11-2024 Comprehensive metabolic 2000 panel - Serum or Plasma COMP METABOLIC PANEL Lab Routine Hypertension, essential Expected: 11/12/2023, Expires: 02/11/2024 [facility] Work Phone: Comment on above: Expected: 11/12/2023, Expires: Start: 11-12-2023 End: 02-11-2024 Hemoglobin A1c in Blood HGB A1C Lab Routine Elevated hemoglobin A1c Expected: 11/12/2023, Expires: 02/11/2024 [facility] Work Phone: Comment on above: Expected: 11/12/2023, Expires: Start: 11-12-2023 End: 02-11-2024 LIPID PANEL, NONFASTING LIPID PANEL, NONFASTING Lab Routine Hypertension, essential Expected: 11/12/2023, Expires: 02/11/2024 [facility] Work Phone: Comment on above: Expected: 11/12/2023, Expires: 4 Start: 11-12-2023 End: 02-11-2024 Urinalysis complete panel - Urine URINALYSIS, WITH MICROSCOPIC Lab Routine Hypertension, essential Expected: 11/12/2023, Expires: 02/11/2024 [facility] Work Phone: Comment on above: Expected: 11/12/2023, Expires: Start: 04-19-2023 Advance Directive Discussion Advance Directive Discussion [facility] Start: 04-19-2023 Behavioral Health Screening Behavioral Health Screening [facility] Start: 03-22-2023 End: 04-06-2024 Radiologic exam chest 2 views XR CHEST 2V FRONTAL/LAT Radiology Routine Acute cough Expected: 03/22/2023, Expires: 04/06/2024 [facility] Work Phone: Comment on above: Expected: 03/22/2023, Expires: 4 Start: 12-18-2022 Covid-19 Vaccine (2022- season) Covid-19 Vaccine (2022- season) [facility] Start: 12-18-2022 Influenza vaccination [facility] Start: 11-24-2022 End: 01-24-2023 Bacteria identified in Urine by Culture [facility] Work Phone: Comment on above: Expected: 11/24/2022, Expires: 3 Start: 11-13-2022 End: 01-13-2023 CBC W Auto Differential panel - Blood CBC + DIFF Lab Routine Paroxysmal atrial fibrillation (HCC) Medication management Expected: 11/13/2022, Expires: 01/13/2023 [facility] Work Phone: Comment on above: Expected: 11/13/2022, Expires: 3 Start: 11-13-2022 End: 01-13-2023 Comprehensive metabolic 2000 panel - Serum or Plasma COMP METABOLIC PANEL Lab Routine Hypertension, essential Expected: 11/13/2022, Expires: 01/13/2023 [facility] Work Phone: Comment on above: Expected: 11/13/2022, Expires: 3 Start: 11-13-2022 End: 01-13-2023 Hemoglobin A1c in Blood HGB A1C Lab Routine Elevated hemoglobin A1c Expected: 11/13/2022, Expires: 01/13/2023 [facility] Work Phone: Comment on above: Expected: 11/13/2022, Expires: 3 Start: 11-13-2022 End: 01-13-2023 LIPID PANEL, NONFASTING LIPID PANEL, NONFASTING Lab Routine Hypertension, essential Expected: 11/13/2022, Expires: 01/13/2023 [facility] Work Phone: Comment on above: Expected: 11/13/2022, Expires: Start: 11-13-2022 End: 01-13-2023 Urinalysis complete panel - Urine URINALYSIS, WITH MICROSCOPIC Lab Routine Hypertension, essential Expected: 11/13/2022, Expires: 01/13/2023 [facility] Work Phone: Comment on above: Expected: 11/13/2022, Expires: 3 Start: 06-27-2022 COVID-19 VACCINE (5 - Pfizer series) COVID-19 VACCINE (5 - Pfizer series) [facility] Start: 04-19-2022 ADVANCE DIRECTIVE DISCUSSION ADVANCE DIRECTIVE DISCUSSION [facility] Start: 04-19-2022 DEPRESSION ASSESSMENT DEPRESSION ASSESSMENT [facility] Start: 01-31-2022 End: 02-14-2022 SARS-CoV-2 (COVID-19) RNA [Presence] in Respiratory specimen by LEYDA with probe detection 2019 CORONAVIRUS Microbiology Routine URI, acute Expected: 01/31/2022, Expires: 02/14/2022 [facility] Work Phone: Comment on above: Expected: 01/31/2022, Expires: 2 Start: 12-18-2021 Influenza vaccination INFLUENZA (#1) [facility] Start: 11-21-2021 End: 01-21-2022 Calcium [Mass/volume] in Serum or Plasma CALCIUM TOTAL BLD Lab Routine Hypercalcemia Expected: 11/21/2021, Expires: 01/21/2022 [facility] Work Phone: Comment on above: Expected: 11/21/2021, Expires: 2 Start: 11-21-2021 End: 01-21-2022 CBC W Auto Differential panel - Blood CBC + DIFF Lab Routine Thrombocytopenia (HCC) Expected: 11/21/2021, Expires: 01/21/2022 [facility] Work Phone: Comment on above: Expected: 11/21/2021, Expires: 2 Start: 11-21-2021 End: 01-21-2022 Parathyrin.intact [Mass/volume] in Serum or Plasma PTH INTACT BLD Lab Routine Hypercalcemia Expected: 11/21/2021, Expires: 01/21/2022 [facility] Work Phone: Comment on above: Expected: 11/21/2021, Expires: 2 Start: 11-21-2021 End: 01-21-2022 POTASSIUM BLD POTASSIUM BLD Lab Routine Hyperkalemia Expected: 11/21/2021, Expires: 01/21/2022 [facility] Work Phone: Comment on above: Expected: 11/21/2021, Expires: 2 Start: 06-08-2021 COVID-19 VACCINE (4 - Booster for Pfizer series) COVID-19 VACCINE (4 - Booster for Pfizer series) [facility] Start: 04-19-2021 ADVANCE DIRECTIVE DISCUSSION ADVANCE DIRECTIVE DISCUSSION [facility] Start: 04-19-2021 DEPRESSION ASSESSMENT DEPRESSION ASSESSMENT [facility] Start: 04-02-2021 COVID-19 VACCINE (4 - Booster for Pfizer series) COVID-19 VACCINE (4 - Booster for Pfizer series) [facility] Start: 2010 RSV Vaccine (1 - 1-dose 75+ series) RSV Vaccine (1 - 1-dose 75+ series) [facility] Start: 2000 PNEUMOCOCCAL: 65+ (1 - PCV) PNEUMOCOCCAL: 65+ (1 - PCV) [facility] Start: 1995 RSV Vaccine (1 - 1-dose 60+ series) RSV Vaccine (1 - 1-dose 60+ series) [facility] Start: 1985 SHINGRIX VACCINE (1 of 2) SHINGRIX VACCINE (1 of 2) [facility] Start: 1953 Anxiety Screening Anxiety Screening [facility] Start: 1953 Depression Screening Depression Screening [facility] Cardiac event recording [facility] COVID & INFLUENZA A/ B & RSV NAAT, ROUTINE COVID & INFLUENZA A/B & RSV NAAT, ROUTINE Microbiology Routine Acute cough 02/12/2023 11:20 AM EDT [facility] Work Phone: COVID & INFLUENZA A/ B & RSV PCR, ROUTINE COVID & INFLUENZA A/B & RSV PCR, ROUTINE Microbiology Routine Flu-like symptoms Acute upper respiratory infection, unspecified Ordered: 07/12/2024 [facility] Work Phone: Comment on above: Ordered: 07/12/2024 Glucose [Mass/volume ] in Serum or Plasma [facility] OCCULT BLD EXAM-DIAG OCCULT BLD EXAM-DIAG Microbiology Routine Black tarry stools Ordered: 12/29/2024 [facility] Work Phone: Comment on above: Ordered: 12/29/2024 Patient Education [facility] Work Phone: End: 12-24-2023 Radex spine lumbosacral 2/3 views XR LUMBAR GENERAL 3V AP/LAT/L5-S1 Radiology Routine 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 1 Occurrences starting 11/24/2022 until 12/24/2023 [facility] Work Phone: Comment on above: 1 Occurrences starting 11/24/2022 until 12/24/2023 Radex spine lumbosacral 2/3 views XR LUMBAR GENERAL 3V AP/LAT/L5-S1 Radiology Routine 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 11/24/2022 2:23 PM EDT [facility] Work Phone: End: 10-21-2022 Radiologic exam chest 2 views XR CHEST 2V FRONTAL/LAT Radiology STAT Cough 1 Occurrences starting 09/21/2021 until 10/21/2022 [facility] Work Phone: Comment on above: 1 Occurrences starting 09/21/2021 until 10/21/2022 Removal impacted cerumen irrigation/lvg unilat AMBULATORY EAR LAVAGE/IRRIGATION Procedures Routine Impacted cerumen of right ear Ordered: 05/27/2023 [facility] Work Phone: Comment on above: Ordered: 05/27/2023 ROUTINE FLU A/B + RSV ROUTINE FL U A/B + RSV Lab Routine Acute cough 02/12/2023 11:20 AM EDT [facility] Work Phone: SARS-CoV-2 (COVID-19 ) RNA [Presence] in Respiratory specimen by LEYDA with probe detection COVID NAAT, UPPER RESPIRATORY, ROUTINE Microbiology Routine Acute cough 02/12/2023 11:20 AM EDT [facility] Work Phone: End: 08-25-2024 SPIROMETRY - BASELINE AND POST DILATOR SPIROMETRY - BASELINE AND POST DILATOR PFT Routine Chronic cough 1 Occurrences starting 07/27/2023 until 08/25/2024 [facility] Work Phone: Comment on above: 1 Occurrences starting 07/27/2023 until 08/25/2024 Urine culture [facility] XR Ribs - left 2 Views XR RIBS 2V AP/OBL LEFT Radiology Routine Open fracture of one rib of left side with routine healing, subsequent encounter 11/03/2024 10:48 AM EDT [facility] Work Phone: [facility] Immunizations Immunization Date Immunization Notes Care Provider [facility] 04-19-2024 influenza, high dose seasonal, preservative-free Dr. Rufino Erickson MD Work Phone: [facility] 04-19-2024 influenza virus vaccine, unspecified formulation Lulu Staton APRN.CNP Work Phone: [facility] 05-27-2023 influenza (HD-IIV4) vaccine, age 65+ yr, high dose, quadrivalent, PF (FLUZONE HIGH-DOSE) Rufino Erickson MD Work Phone: [facility] 05-27-2023 influenza virus vaccine, unspecified formulation Sarah Yang PA-C Work Phone: [facility] 02-27-2022 Covid Pfizer Bivalen t Booster Dr. Rufino Erickson MD Work Phone: [facility] 01-26-2022 influenza, high-dose , quadrivalent vaccine (FLUZONE HIGH DOSE QUADRIVALENT) Shady Smiley MD Work Phone: [facility] 01-26-2022 pneumococcal (PCV20) vaccine, 20 valent (PREVNAR 20) Shady Smiley MD Work Phone: [facility] 01-26-2022 influenza virus vaccine, unspecified formulation Ulices Moya APRN.DIVISION COMMANDER Work Phone: [facility] 05-19-2021 influenza, high-dose , quadrivalent vaccine (FLUZONE HIGH DOSE QUADRIVALENT) Kiera Benson APRN.DIVISION COMMANDER Work Phone: [facility] 02-05-2021 Covid (Pfizer) Dr. Rufino nelson MD Work Phone: [facility] 06-07-2020 COVID-19 vaccine, ag e 12+ yr (PFIZER-BIONTECH - PURPLE TOP) Kiera Benson CERTIFIED BENCH JEWELER TECHNICIAN.DIVISION COMMANDER Work Phone: [facility] Work Phone: 05-17-2020 COVID-19 vaccine, ag e 12+ yr (PFIZER-BIONTECH - PURPLE TOP) Kiera Benson CERTIFIED BENCH JEWELER TECHNICIAN.DIVISION COMMANDER Work Phone: [facility] 02-27-2020 influenza, high dose seasonal, preservative-free Kiera Benson APRN.DIVISION COMMANDER Work Phone: [facility] Payers Date Payer Category Payer Self-pay 2016 Medicare [id number] 2015 Private Health Insurance HU[employer]NA HU[employer]NA MEDICARE SUPPLEMENT [id number] 2015-Present [phone] [address] [address] [place] [address] Indemnity [id number] 2015 Private Health Insurance [id number] .[id number] 2015 Private Health Insurance [id number] 2000 Medicare MEDICARE MEDICAR E A AND B [id number] 2000-Present [phone] [address] [address] [place] [address] Medicare [id number] .[id number] 2000 Medicare [id number]. [id number] .2.7.3.840782.315 2000 Medicare [id number] Unknown [id number] 2.16.840.1.106800.3.579 .2.462 Unknown [id number] 2.16.840.1.775101.3.579 .2.462 Unknown [id number] 2.16.840.1.993440.3.579 .2.462 Unknown [id number] 2.16.840.1.127490.3.579 .2.462 Unknown [id number] 2.16.840.1.490594.3.579 .2.462 Unknown [id number] 2.16.840.1.840397.3.579 .2.462 Unknown [id number] 2.16.840.1.874760.3.579 .2.462 Unknown [id number] 2.16.840.1.356313.3.579 .2.462 Unknown [id number] 2.16.840.1.347812.3.579 .2.462 Unknown [id number] 2.16.840.1.065579.3.579 .2.462 Unknown [id number] 2.16.840.1.574852.3.579 .2.462 Unknown [id number] 2.16.840.1.127167.3.579 .2.462 Unknown [id number] 2.16.840.1.609580.3.579 .2.462 Unknown [id number] 2.16840.1.359912.3.579 .2.462 Unknown [id number] 2.16.840.1.275338.3.579 .2.462 Unknown [id number] 2.840.1.682708.3.579 .2.462 Unknown [id number] 2.840.1.122117.3.579 .2.462 Unknown [id number] 2.840.1.102473.3.579 .2.462 Unknown [id number] 2.840.1.113542.3.579 .2.462 Unknown [id number] 2.840.1.706566.3.579 .2.462 Unknown [id number] 2.840.1.036593.3.579 .2.462 Unknown [id number] 2.840.1.634760.3.579 .2.462 Unknown [id number] 2.840.1.454274.3.579 .2.462 Unknown [id number] 2.840.1.310875.3.579 .2.462 Unknown [id number] 2.840.1.960523.3.579 .2.462 Unknown [id number] 2.840.1.715665.3.579 .2.462 Unknown [id number] 2.840.1.542103.3.579 .2.462 Unknown [id number] 2.840.1.212162.3.579 .2.462 Unknown [id number] 2.16.840.1.505127.3.579 .2.462 Unknown [id number] 2.16.840.1.799315.3.579 .2.462 Unknown [id number] 2.16.840.1.088596.3.579 .2.462 Unknown [id number] 2.16.840.1.942170.3.579 .2.462 Unknown [id number] 2.16.840.1.816279.3.579 .2.462 Unknown [id number] 2.16.840.1.295798.3.579 .2.462 Unknown [id number] 2.16.840.1.481275.3.579 .2.462 Unknown [id number] 2.16.840.1.395455.3.579 .2.462 Unknown [id number] 2.16.840.1.064682.3.579 .2.462 Unknown [id number] 2.16.840.1.973074.3.579 .2.462 Unknown [id number] 2.16.840.1.689581.3.579 .2.462 Unknown [id number] 2.16.840.1.505880.3.579 .2.462 Unknown [id number] 2.16.840.1.574844.3.579 .2.462 Social History Date Type Detail Facility Start: 04-26-2012 End: 01-11-2025 Tobacco smoking status AKIS Never smoked tobacco [facility] Start: 04-26-2012 End: 01-26-2022 Tobacco use and exposure Smokeless tobacco non-user [facility] Start: 09-21-2021 End: 12-11-2024 Alcohol intake Current non-drinker of alcohol (finding) [facility] Start: 09-19-2020 History SDOH Alcohol Frequency 1 [facility] Start: 09-19-2020 History SDOH Alcohol Std Drinks 98 [facility] Start: 09-19-2020 History SDOH Social Connections Phone 5 [facility] Start: 09-19-2020 History SDOH Social Connections Anabaptist 3 [facility] Start: 09-19-2020 History SDOH Social Connections Living 4 [facility] Start: 09-19-2020 History SDOH Physica l Activity MPS 2 [facility] Start: 09-18-2020 Education 12 [facility] Start: 1935 Sex Assigned At Not on file [facility] Start: 10-22-2020 End: 01-31-2022 Exposure to SARS-CoV-2 (event) Not sure [facility] Work Phone: Start: 09-18-2020 End: 11-24-2022 History of Social function [place] [facility] Start: 09-18-2020 End: 11-24-2022 Social connection and isolation panel [facility] Do you belong to any clubs or organizations such as oriental orthodox groups, unions, fraternal or athletic groups, or school groups? Yes [facility] Are you now , , , , never or living with a partner? [facility] How often to you hav e a drink containing alcohol? Never [facility] Start: 03-20-[address] inks containing alcohol do you have on a typical day? Patient refused [facility] Do you feel stress - tense, restless, nervous, or anxious, or unable to sleep at night because your mind is troubled all the time - these days [OSQ] To some extent [facility] (I/We) worried wheth er (my/our) food would run out before (I/we) got money to buy more. Never true [facility] In the past 12 month s, was there a time when you were not able to pay the mortgage or rent on time? No [facility] Do you feel stress - tense, restless, nervous, or anxious, or unable to sleep at night because your mind is troubled all the time - these days [OSQ] Only a little [facility] Start: 06-13-2024 Tobacco Use Tobacco Use [facility] Start: 1935 Sex Assigned At Female W [facility] Medical Equipment Procedure Code Equipment Code Equipment Origin al Text Equipment Identifier Dates Cement Simplex P Bone Radiopaque Full Dose Sterile - [id number] Start: 11-19-2017 Insert Triathlon 3 X3 11mm Tibial Cruciate Retaining Knee - [id number] Start: 11-19-2017 Component Triath shailesh 2 Femoral Cruciate Retain Cemented Knee Left - [id number] Start: 11-19-2017 Component Triath shailesh 29mm Asymmetric X3 9mm Patellar Total Knee - [id number] Start: 11-19-2017 Baseplate Triath shailesh 3 Tibial Primary Cement Knee - [id number] Start: 11-19-2017 Functional Status Date Assessment Result Facility 12-29-2024 Total score [AUDIT-C] 0 12/30/19 2:06 PM EDT User, Laurashanellt [facility] 12-29-2024 How often do you hav e a drink containing alcohol? Never 12/29/2024 2:06 PM EDT User, Mychart Never [facility] 12-29-2024 Functional status Patient does n ot drink 12/29/2024 2:06 PM EDT User, Laurashanellt Patient does not drink [facility] 12-29-2024 How often do you hav e 6 or more drinks on 1 occasion? Never 12/29/2024 2:06 PM EDT User, Mychart Never [facility] 12-11-2024 Total score [AUDIT-C] 0 12/12/19 1:54 PM EDT Cecelia Raymond MA [facility] 11-22-2017 Are you deaf, or do you have serious difficulty hearing No 11/22/2017 11:51 AM German Cooley RN No [facility] 11-22-2017 Are you blind, or do you have serious difficulty seeing, even when wearing glasses No 11/22/2017 11:51 AM German Cooley RN No [facility] 11-22-2017 Do you have serious difficulty walking or climbing stairs Yes 11/22/2017 11:51 AM German Cooley RN Yes [facility] 11-22-2017 Do you have difficul ty dressing or bathing Yes 11/22/2017 11:51 AM German Cooley, XOCHITL Yes [facility] 11-22-2017 Because of a physica l, mental, or emotional condition, do you have difficulty doing errands alone such as visiting a physician's office or shopping Yes 11/22/2017 11:51 AM EDT German Davies RN Yes [facility] Mental Status Date Assessment Result Facility 10-23-2024 Cognitive function Level Of Cons ciousness Awake;Alert;Appropriate;Fol lows Commands [facility] Work Phone: 11-22-2017 Because of a physica l, mental, or emotional condition, do you have serious difficulty concentrating, remembering, or making decisions Yes 11/22/2017 11:51 AM EDT German Davies RN Yes [facility] Clinical Notes 11-24-2017 to 01-11-2025 Steve Mane, PT - 01/02/2025 11:35 AM EDTCSteve dutta PT - 01/02/2025 10:42 AM EDTTelephone Encounter - Cecelia Raymond MA - 01/01/2025 4:30 PM EDTPatient Instructions Note Date & Type Note Facility 01-11-2025 Note HNO ID: [id number] Author: STEVE MANE PT Service: ? Author [...] Steve Mane, PT, DPT. 5:13p.m. - 5:23p.m. [facility] 01-11-2025 Note HNO ID: [id number] Author: CECELIA RAYMOND MA Service: ? Author Type: Hide Curer Type: Progress Notes Filed: 01/11/2025 14:23 Note Text: Scan on 01/11/2025 12:20 PM by Provider, External, PACamilaC: Markoseva Nicole Daniela Downey [facility] 01-11-2025 Progress note [facility] 01-09-2025 Note HNO ID: [id number] Author: STEVE MANE PT Service: ? Author [...] Hip ADD Ball Squeeze: 2x10, 5-sec. 6: Gua-jw-fzpbx from rodriges table, with use of 1 [...] Stop Time : 1455 Steve Mane PT [facility] 01-05-2025 Note HNO ID: [id number] Author: SARAH YANG PA-C Service: ? Author Type: Physician Prototype Machinist Type: Progress Notes Filed: 01/05/2025 12:49 Note [...] and those as below. Extensive Exam: - Cthbrhxc-fg-gkc present, providing additional history. - Recent weight [...] COMPARTMENTS Left 08 (more content not included)... [facility] 01-02-2025 History of Presen t illness Narrative Program_ID:[id number] Access Code: [email or web address] URL: [email or web address] Date: 01-02-2025 Prepared By: Steve Mane Program [...] Goals for Episode of Care: established 01/02/25 [place] in home exercise program. Patient will report [...] Planned: 10 Planned Treatment Interventions: Therapeutic exercise (78592), Neuromuscular re-education (27367), Manual therapy (49723), Therapeutic activities (48619), Self-chcf management (29680), Patient/Family/Caregiver Education, General Conditioning, Gait Training (90515) PLAN FOR NEXT VISIT: Assess adherance to [...] Was doing good with therapy in the snf (3x a week), came home with HHPT in June 2024 and completed HHPT for about 1 month. Son states patient did not keep up with exercises. She currently goes to [facility] Mon & Wed, not exercising often. Son [...] Education TREATMENT: PT Treatment Interventions: Therapeutic Exercise, Self-Assisted Management, Gait Training Evaluation Therapeutic Exercise: 1: [...] sizing, and proper use of assistive device. Self-Assisted Management: 1: Educated on transfers with hands [...] Steve Mane PT documented in this encounter [facility] 01-02-2025 Note HNO ID: [id number] Author: STEVE MANE PT Service: ? Author [...] Goals for Episode of Care: established 01/02/25 [place] in home exercise program. Patient will report [...] Planned: 10 Planned Treatment Interventions: Therapeutic exercise (46721), Neuromuscular re-education (52078), Manual therapy (47424), Therapeutic activities (07861), Self-chcf management (88329), Patient/Family/Caregiver Education, General Conditioning, Gait Training (09156) PLAN FOR NEXT VISIT: Assess adherance to [...] Was doing good with therapy in the snf (3x a week), came home with HHPT in June 2024 and completed HHPT for about 1 month. Son states patient did not keep up with exercises. She currently goes to [facility] Wed AND Wed, not exercising often. Son [...] falls resulting in (more content not included)... [facility] 01-01-2025 Telephone encounter Note Office received 90 day Physician order forms from [employer] for PCP to sign and review. This has been completed and faxed back to [phone]. Cecelia Raymond MA [facility] 01-01-2025 Miscellaneous Notes Office received 90 day Physician order forms from [employer] for PCP to sign and review. This has been completed and faxed back to [phone]. Cecelia Raymond MA documented in this encounter [facility] 12-29-2024 Telephone encounter Note ----- Message from Shanika Matute MA sent at 12/29/2024 11:06 AM EDT ----- ----- Message ----- From: Lulu Staton APRN.CNP Sent: 12/29/2024 10:50 AM EDT To: Madeleine Goldsmith ----- Message from Lulu Staton APRN.CNP sent at 12/29/2024 10:50 AM EDT ----- ----- Message ----- From: RadiologyPhnai In Sent: 12/29/2024 10:47 AM EDT To: Lulu Staton APRN.CNP [facility] 12-29-2024 Miscellaneous Notes ----- Message from Shanika Matute MA sent at 12/29/2024 11:06 AM EDT ----- ----- Message ----- From: Lulu Staton APRN.CNP Sent: 12/29/2024 10:50 AM EDT To: Madeleine Staton Pool ----- Message from Lulu Staton APRN.CNP sent at 12/29/2024 10:50 AM EDT ----- ----- Message ----- From: Phani Beltran In Sent: 12/29/2024 10:47 AM EDT To: Lulu Staton APRN.DIVISION COMMANDER Pt son Espinoza notified. Asking if she can get the Tessalon perles to help with cough. Only need to call pt if problems prescribing. Send to [facility] in [place]. Shanika Matute MA Please let patient know their xray is normal. No ATB indicated at this time. Continue mucinex and follow up with GI as indicated. CBC shows normal levels. documented in this encounter [facility] 12-29-2024 Telephone encounter Note Pt son Espinoza notified. Asking if she can get the Tessalon perles to help with cough. Only need to call pt if problems prescribing. Send to [facility] in [place]. Shanika Matute MA [facility] 12-29-2024 Telephone encounter Note Please let patient know their xray is normal. No ATB indicated at this time. Continue mucinex and follow up with GI as indicated. CBC shows normal levels. [facility] 12-29-2024 History of Presen t illness [...] PATIENT PRESENTS WITH AN IMPLANTABLE OR ATTACHED FIELD INSURANCE SALES MANAGER: No RADIOLOGY DEPARTMENT: General X-ray: Exam(s) Completed: Chest X-Ray PERIPHERAL IV DATA: Not applicable SIGNED BY: RT Joya(R) December 29, 2024 10:30 AM documented in this encounter [facility] 12-29-2024 Note HNO ID: [id number] Author: CINDY KHOURY RT(Logan) Service: ? Author Type: Hand Bobbin Cleaner Type: Progress Notes Filed: 12/29/2024 10:30 Note [...] PATIENT PRESENTS WITH AN IMPLANTABLE OR ATTACHED FIELD INSURANCE SALES MANAGER: No RADIOLOGY DEPARTMENT: General X-ray: Exam(s) Completed: Chest X-Ray PERIPHERAL IV DATA: Not applicable SIGNED BY: RT Joya(R) December 29, 2024 10:30 AM [facility] 12-29-2024 Note HNO ID: [id number] Author: LULU STATON APRN.DIVISION COMMANDER Service: ? Author Type: Nurse Practitioner Type: [...] Xarelto RBBB 09/27/2024 Vitreous hemorrhage, right eye ([facility]) 09/27/2024 Previous Surgical History PAST SURGICAL HISTORY [...] - XR CHEST 2V FRONTAL/LAT Lulu Staton APRN.DIVISION COMMANDER [1] Social History Tobacco Use Smoking status: Never Smokeless tobacco: Never Vaping Use Vaping status: Never Used Substance Use Topics Alcohol use: No Drug use: No [facility] 12-29-2024 History of Presen t illness [...] Drug use: No documented in this encounter [facility] 12-28-2024 Telephone encounter Note Forwarding FYI for appt tomorrow. Nikia Pineda RN [facility] 12-28-2024 Miscellaneous Notes Forwarding FYI for [...] Additional Information on file. Protocols Used Rectal Zmihlfzx-QUPZJ-UN documented in this encounter [facility] 12-28-2024 Telephone encounter Note Reason for [...] Additional Information on file. Protocols Used Rectal Ryznamsu-TKXLP-JQ [facility] 12-14-2024 Telephone encounter Note Call to Espinoza Kearney (POA) and results below reviewed with son. He verbalized understanding. Notes he did receive phone calls to setup appt's for GI and Urology in December. PT setup as well. Cecelia Raymond MA [facility] 12-14-2024 Miscellaneous Notes Call to Espinoza K[place]ney (POA) and results below reviewed with son. He verbalized understanding. Notes he did receive phone calls to setup appt's for GI and Urology in December. PT setup as well. Cecelia Raymond MA Let Lani kearney know recent labs were all ok and her urine test was neg for infection. documented in this encounter [facility] 12-14-2024 Telephone encounter Note Let Lani kearney know recent labs were all ok and her urine test was neg for infection. [facility] 12-11-2024 Instructions Rufino Erickson MD - 12/11/2024 2:40 PM EDT We discussed your recent falls, weakness, and balance concerns: - I recommend starting outpatient physical therapy at the [facility] twice a week for up to 8 weeks. This will help improve your strength and balance. The therapists will tailor the exercises to your needs. - Please let us know if you experience any new falls or worsening weakness. We discussed your urinary symptoms and bladder concerns: - I have referred you to Dr. Aguirre, a local urologist in [place] who specializes in female urology, to evaluate your bladder symptoms and determine if further testing or treatment is needed. - If Dr. Aguirre does not accept your insurance, we can refer you to a [facility] urologist in [place]. We discussed your bowel symptoms: - I have referred you to Dr. Gardner, a parking cashier, to evaluate your sensation of needing to [...] any new concerns. documented in this encounter [facility] 12-11-2024 History of Presen t illness [...] She believes she tripped over her phone duct cleaner, which caused the fall. Patient lives with [...] two sons, who are providing additional history. Krystnya reports multiple falls recently, with her son [...] which included preparing to see the patient, dbxa-na-xnek patient care, completing clinical documentation, performing a medically appropriate examination, counseling and educating the patient/family/caregiver and ordering medications, tests, or procedures. Recording using [employer] software for draft documentation of the visit was discussed with the patient/authorized customer response representative; all questions welcomed and answered. Patient/authorized customer response representative agreed to proceed [1] Social History Tobacco Use Smoking status: Never Smokeless tobacco: Never Vaping Use Vaping status: Never Used Substance Use Topics Alcohol use: No Drug use: No documented in this encounter [facility] 12-11-2024 Note HNO ID: [id number] Author: RUFINO ERICKSON MD Service: ? Author [...] She believes she tripped over her phone duct cleaner, which caused the fall. Patient lives with [...] (Sulfonamide * Other: (more content not included)... [facility] 12-11-2024 Telephone encounter Note Reason for [...] pt toilets herself. Son reports pt sees [facility] and was ordered amiodarone which [...] Information on file. Protocols Used Falls and Fjyufwq-WHPKE-KQ [facility] 12-11-2024 Miscellaneous Notes Reason for Conversation [...] pt toilets herself. Son reports pt sees [facility] and was ordered amiodarone which [...] Information on file. Protocols Used Falls and Hachmkx-MPMFT-GI documented in this encounter [facility] 11-10-2024 Telephone encounter Note Pt's son notified or results and instructions. Son verbalizes understanding. Tiff Hall LPN [facility] 11-10-2024 Miscellaneous Notes Pt's son notified or results and instructions. Son verbalizes understanding. Tiff Hall LPN Let patient know that her xray shows signs of healing of the rib fracture she sustained in September. Follow up in office as needed and we can re-evaluate at her appointment in December. Sarah Yang PA-C documented in this encounter [facility] 11-10-2024 Telephone encounter Note Let patient know that her xray shows signs of healing of the rib fracture she sustained in September. Follow up in office as needed and we can re-evaluate at her appointment in December. Sarah Yang PA-C [facility] 11-03-2024 History of Presen t illness [...] PATIENT PRESENTS WITH AN IMPLANTABLE OR ATTACHED FIELD INSURANCE SALES MANAGER: No RADIOLOGY DEPARTMENT: General X-ray: Exam(s) Completed: Rib X-Ray: Left PERIPHERAL IV DATA: Not applicable SIGNED BY: RT Elizabeth(R) November 03, 2024 10:40 AM documented in this encounter [facility] 11-03-2024 Note HNO ID: [id number] Author: REY QUICK RT(R) Service: ? Author [...] PATIENT PRESENTS WITH AN IMPLANTABLE OR ATTACHED FIELD INSURANCE SALES MANAGER: No RADIOLOGY DEPARTMENT: General X-ray: Exam(s) Completed: Rib X-Ray: Left PERIPHERAL IV DATA: Not applicable SIGNED BY: RT Elizabeth(R) November 03, 2024 10:40 AM [facility] 10-27-2024 Note HNO ID: [id number] Author: BEATRIZ SIDDIQUI MA Service: ? Author Type: Hide Curer Type: Progress Notes Filed: 10/27/2024 17:49 Note Text: Please see office note with cardio Scan on 10/26/2024 5:12 PM by ProviderМарина PA-C: Consultation - Cardiology Beatriz Siddiqui MA [facility] 10-27-2024 History of Presen t illness Narrative Please see office note with cardio Scan on 10/26/2024 5:12 PM by Provider, MOLLY Parish: Consultation - Cardiology Beatriz Siddiqui MA documented in this encounter [facility] 10-26-2024 Evaluation note Diagnosis Onset Date [...] December 10:56am Fecal incontinence acute Sept2024 10:56am [facility] Work Phone: 1(918) 308-612407-08-2025 NoteHNO ID: [id number] Author: CECELIA RAYMOND MA Service: ? Author Type: Hide Curer Type: Progress Notes Filed: 10/24/2024 16:02 Note Text: Call to pt's Son, Espinoza. Notified him of message below from Provider. Espinoza verbalized understanding and will give Cardiology a call. Cecelia Raymond [facility]07-08-2025 History of Present illness Narrative* Cecelia Raymond [...] to make a f/u with Cardio at [facility] because they manage her A. Fib. It looks like the ER did not add or change any of her meds, discuss her case with her building drafting officer or advise her to f/u with her building drafting officer. * Shanika Matute MA - 10/24/2024 8:12 AM EDT Pt was at [facility] ER for weakness Scan on 10/24/2024 12:01 AM by Provider, MOLLY Parish: [facility]-Weakness documented in this encounterOhio[facility]2025 NoteHNO ID: [id number] Author: RUFINO ERICKSON MD Service: ? Author Type: Physician Type: Progress Notes Filed: 10/24/2024 16:02 Note Text: Please advise patient that with the recent ER visit for A. Fib she needs to make a f/u with Cardio at [facility] because they manage her A. Fib. It looks like the ER did not add or change any of her meds, discuss her case with her building drafting officer or advise her to f/u with her building drafting officer.[facility]07-08-2025 NoteHNO ID: [id number] Author: SHANIKA MATUTE MA Service: ? Author Type: Hide Curer Type: Progress Notes Filed: 10/24/2024 16:02 Note Text: Pt was at [facility] ER for weakness Scan on 10/24/2024 12:01 AM by Provider, External, PACamilaC: [facility] Radiology Diagnostic study note [facility] Imaging Services [address] [place] [address] Chest 1 View (Portable) MR#: [id number] Acct: [id number] Name: KRYSTYNA KHANNA Rep #: [id number] : 1935 F 89 From: Magdalene Cochran MD PCP: Dr. Rufino Erickson MD Status: REG ER Study:Chest 1 View (Portable) Date of Exam: 10/23/24 Exam# [id number] Ordering Dr: Oliva Sagastume MD PROCEDURE: CHEST [...] although pneumonia not entirely excluded. Reading Location: [facility] CC: Dr. Michael Sagastume MD; Dr. Rufino Erickson MD ~ Management Trainee Marketing: Signed [facility]07-03-2025 Note* Addendum Note - Lulu Staton APRN.CNP - 10/19/2024 11:14 AM EDTAddended by: LULU STATON on: 10/19/2024 11:14 AM Modules accepted: Orders [facility]07-03-2025 Miscellaneous Notes* Addendum Note - Lulu Staton APRN.CNP - 10/19/2024 11:14 AM EDTAddended by: LULU STATON on: 10/19/2024 11:14 AM Modules accepted: Orders documented in this encounterOhio[facility]07-[facility]-2025 NoteHNO ID: [id number] Author: LULU STATON APRN.CNP Service: ? Author [...] reports improvement. Health Maintenan (more content not included)...[facility] 10-19-2024 History of Present illness Narrative* Lulu Staton APRN.[facility] - 10/19/2024 10:46 AM EDT Chief Complaint [...] XR RIBS 2V AP/OBL LEFT Lulu Staton APRN.DIVISION COMMANDER documented in this encounterOhio[facility]20[facility] Instructions* Patient Instructions* Cruz James APRN.CNP [...] any other concerning symptoms documented in this encounterOhio[facility]06-21-2025 NoteHNO ID: [id number] Author: CRUZ JAMES APRN.CNP Service: ? Author [...] The patient was discharged. OTC Medications were advised:[facility]06-21-2025 History of Present illness Narrative* Cruz [...] OTC Medications were advised: documented in this encounterOhio[facility]06-[facility]-2025 History of Present illness Narrative* Linette [...] PATIENT PRESENTS WITH AN IMPLANTABLE OR ATTACHED FIELD INSURANCE SALES MANAGER: No RADIOLOGY DEPARTMENT: General X-ray: Exam(s) Completed: Rib X-Ray: Left PERIPHERAL IV DATA: Not applicable SIGNED BY: Moi Goel October 07, 2024 11:59 AM documented in this encounterOhiohealth [facility]06-21-2025 NoteHNO ID: [id number] Author: LINETTE AQUINO Tech Service: ? Author Type: Technologist [...] PATIENT PRESENTS WITH AN IMPLANTABLE OR ATTACHED FIELD INSURANCE SALES MANAGER: No RADIOLOGY DEPARTMENT: General X-ray: Exam(s) Completed: Rib X-Ray: Left PERIPHERAL IV DATA: Not applicable SIGNED BY: Moi Goel October 07, 2024 11:59 [facility]06-21-2025 Telephone encounter Note* Telephone Encounter - Nikia [...] urination, blood in urine) Protocols used: Back Mrcd-MSOAS-SU [facility]06-21-2025 Miscellaneous Notes* Telephone Encounter - Nikia [...] urination, blood in urine) Protocols used: Back Wakg-PMDJT-AR documented in this encounterOhio[facility]06-13-2025 Telephone encounter Note * Telephone Encounter - Cecelia Raymond MA - 09/29/2024 1:56 PM EDT Pre-op form received from [facility] to be completed. Form completed by PCP. Attached EKG and recent OV notes. Faxed back to [phone]. Cecelia Raymond MA [facility]06-13-2025 Miscellaneous Notes* Telephone Encounter - Cecelia Raymond MA - 09/29/2024 1:56 PM EDT Pre-op form received from [facility] to be completed. Form completed by PCP. Attached EKG and recent OV notes. Faxed back to [phone]. Cecelia Raymond MA documented in this encounterOhiohealth [facility]06-11-2025 Instructions* Patient Instructions* Rufino Erickson MD - 09/27/2024 1:59 PM EDT We discussed your upcoming eye surgery (vitrectomy) for the right eye: - The surgery is being planned to address the dried blood behind your right eye, which has caused significant vision loss. The volunteer specialist initially thought the blood would clear on its own, but it has not improved. - The procedure will be performed under local anesthesia, meaning you will be awake but your eye will be numbed. - The volunteer specialist requested clearance from me or your [...] the surgery. Please confirm this with your volunteer specialist at your next appointment in two weeks. If they require you to stop Eliquis, you may need to consult with your building drafting officer for further guidance. We discussed your history of atrial fibrillation (AFib) and stroke: - You are currently taking Eliquis to prevent blood clots and reduce the risk of another stroke. Continue taking Eliquis as prescribed unless directed otherwise by your volunteer specialist or building drafting officer. - Your EKG today showed no significant changes compared to previous results, which is reassuring. We discussed your general health and recent symptoms: - You reported occasional diarrhea, which seems to be related to your diet. You may use dxvk-xwh-taeaqdj anti-diarrheal medication as needed, but space doses [...] panel) today. - Follow up with your volunteer specialist in two weeks to finalize the surgery date and confirm whether you need to stop Eliquis before the procedure. - If your volunteer specialist requires you to stop Eliquis, consult with your building drafting officer for fu, rtherinstructions. - Notify me if you experience any new or worsening symptoms, such as chest pain, shortness of breath, or unusual bleeding. Please let me know if you have any questions or concerns. documented in this encounterOhiohealth [facility]06-[facility]-2025 History of Present illness Narrative* Rufino Erickson MD - 09/27/2024 1:00 PM EDT Chief Complaint Patient presents with: Pre-Op Exam HPI Krystyna Khanna is a 89 year old female who presents here today for Pre Op for eye surgery with [facility]. Patient with hx of a.fib, HTN, elevated [...] in bathing independently. She denies performing heavy shake loader such as moving furniture, vacuuming, or sweeping. [...] Abs Lymph 1.00 - 4.00 k/uL 2.12 Patrick% % 14.1 Abs Patrick <0.87 k/uL 0.56 Eosin% % 0.0 Abs [...] lab results and send clearance to the system archive analyst. Per the ACC/AHA Classifiction of surgical procedure [...] which included preparing to see the patient, yekz-gi-nxnc patient care, completing clinical documentation, performing a medically appropriate examination, counseling and educating the patient/family/caregiver and ordering medications, tests, or procedures. Recording using CodeRyte software for draft documentation of the visit was discussed with the patient/authorized customer response representative; all questions welcomed and answered. Patient/authorized customer response representative agreed to proceed documented in this encounterOhiohealth Marion General Hospital06-11-2025 NoteHNO ID: [id number] Author: RUFINO ERICKSON MD Service: ? Author Type: Physician Type: Progress Notes Filed: 09/29/2024 07:07 Note Text: Chief Complaint Patient presents with: Pre-Op Exam HPI Krystyna Khanna is a 89 year old female who presents here today for Pre Op for eye surgery with [facility]. Patient with hx of a.fib, HTN, elevated [...] in bathing independently. She denies performing heavy shake loader such as moving furniture, vacuuming, or sweeping. [...] Visit Medication Sig atorvastati (more content not included)...[facility]05-08-2025 Evaluation note* Diagnosis Onset Date Resolution Status Admit Date Right bundle branch block (RBBB) chr onAugust 24, 2024 10:32am Essential hypertension inactive Ma 2024 10:32am Hyperlipidemia inactive August 24 10:32am Paroxysmal atrial fibrillation inact naila August 24, 2024 10:32am [facility] Work Phone: [phone]) [id number] Evaluation note* Diagnosis Onset Date Resolution Status [...] fibrillation inact naila October 26, 2024 9:29am [facility] Work Phone: [phone] 776-111205-08-2025 Evaluation note* Diagnosis Onset Date Resolution Status [...] fibrillation inact naila December 07, 2024 10:58am [facility] Work Phone: [phone] [id number]-1 (AGENT OF COVID-19) RNA: Not detected INFLUENZA A RNA: Not detected INFLUENZA B RNA: Not detected RESPIRATORY SYNCYTIAL VIRUS (RSV) RNA: Not detectedBrown Memorial HospitalComment on above:Performed By: #### [id number] ####[facility] LABCLIA [id number] [address]03-26-2025 History of Present illness Narrative* Sushil [...] PATIENT PRESENTS WITH AN IMPLANTABLE OR ATTACHED FIELD INSURANCE SALES MANAGER: No RADIOLOGY DEPARTMENT: General X-ray: Exam(s) Completed: Chest X-Ray PERIPHERAL IV DATA: Not applicable SIGNED BY: RT Darek(R) July 12, 2024 3:13 PM documented in this encounterOhiohealth Marion General Hospital03-26-2025 NoteHNO ID: [id number] Author: SUSHIL MALLORY RT(R) Service: Radiology Author [...] PATIENT PRESENTS WITH AN IMPLANTABLE OR ATTACHED FIELD INSURANCE SALES MANAGER: No RADIOLOGY DEPARTMENT: General X-ray: Exam(s) Completed: Chest X-Ray PERIPHERAL IV DATA: Not applicable SIGNED BY: RT Darek(R) July 12, 2024 3:13 [facility]03-26-2025 NoteHNO ID: [id number] Author: HARRISON OSBORNE APRN.DIVISION COMMANDER Service: ? Author Type: Nurse Practitioner Type: [...] A/B AND RSV PCR, ROUTINE Harrison Osborne APRN.[facility]03-26-2025 History of Present illness Narrative* Harrison Osborne APRN.DIVISION COMMANDER - 07/12/2024 2:47 PM EDT This note was created using Quirky. Subjective Krystyna Khanna is a 89 year [...] A/B & RSV PCR, ROUTINE Harrison Osborne APRN.DIVISION COMMANDER documented in this encounterOhiohealth Marion General Hospital03-21-2025 Telephone encounter Note * Telephone Encounter - John Gomez MA - 07/07/2024 8:51 AM EDT Son notified and voiced understanding. John Gomez MA' [facility]03-21-2025 Miscellaneous Notes* Telephone Encounter - John Gomez MA - 07/07/2024 8:51 AM EDT Son notified and voiced understanding. John Gomez MA' * Telephone Encounter - Rufino Erickson MD - 07/06/2024 10:03 AM EDT Let patient know all her recent labs were ok. documented in this encounterOhiohealth Marion General Hospital03-20-2025 Telephone encounter Note * Telephone Encounter - Rufino Erickson MD - 07/06/2024 10:03 AM EDT Let patient know all her recent labs were ok. [facility]03-19-2025 NoteHNO ID: [id number] Author: RUFINO ERICKSON MD Service: ? Author Type: Physician Type: Progress Notes Filed: 07/05/2024 12:23 Note Text: Chief Complaint Patient presents with: Follow Up HPI Krystyna Khanna is a 89 year old female who presents here today for follow up. Espinoza her son is with her today. Patient was seen in [facility] ER on 06/08/2024 for black stools. No [...] those as below. Patient was released from fdc in the past week. Patient is at home and getting PHYSICAL THERAPY and fdc at home. She has some weakness and imbalance still and it is a physical hardship for her to get out of the house for Tx. She is getting around with the use of a walker and her son says she is doing much better with this than she had been when she first went into the fdc facility for rehab. . Office visit 05/30/2024 - hospital follow up Patient was admitted to [facility] on 04/20/2024 and discharged on 05/03/2024 to fdc for rehab. Patient had been diagnosed with [...] aid with sleep. Patient is currently in [facility] fdc: They just had a meeting this week [...] 1 tablet by m (more content not included)...[facility]03-19-2025 History of Present illness Narrative* Rufino Erickson MD - 07/05/2024 11:08 AM EDT Chief Complaint Patient presents with: Follow Up HPI Krystyna Khanna is a 89 year old female who presents here today for follow up. Espinoza her son is with her today. Patient was seen in [facility] ER on 06/08/2024 for black stools. No [...] those as below. Patient was released from fdc in the past week. Patient is at home and getting PHYSICALTHERAPY and fdc at home. She has some weakness and imbalance still and it is a physicalhardship for her to get out of the house for Tx. She is getting around with the use of a walker andher son says she is doing much better with this than she had been when she first went into the [facility] nursing facility for rehab. . Office visit 05/30/2024 - hospital follow up Patient was admitted to [facility] on 04/20/2024 and discharged on 05/03/2024 to fdc for rehab. Patient had been diagnosed with [...] aid with sleep. Patient is currently in [facility] fdc: They just had a meeting this week [...] Completed Pneumococcal Vaccine: 50+ Completed Data reviewed [place] [facility] report from 06/08/2024. A/P ASSESSMENT/PLAN: 1. [...] patient to cont home PHYSICAL THERAPY with [facility]. 5. Left hemiparesis (HCC) - ICD9: 342.90, [...] which included preparing to see the patient, [id number] patient care, completing clinical documentation, performing a medically appropriate examination, counseling and educating the patient/family/caregiver and ordering medications, tests, or procedures. Rufino Erickson MD documented in this encounterOhiohealth Marion General Hospital02-24-2025 NoteHNO ID: [id number] Author: JOHN GOMEZ MA Service: ? Author Type: Hide Curer Type: Progress Notes Filed: 06/12/2024 16:26 Note Text: Left message for son Espinoza. Need to find out if patient is still in [place] for Rehab or has been discharged home. Please Dr. Erickson's notes below. John Gomez [facility]02-24-2025 NoteHNO ID: [id number] Author: RUFINO ERICKSON MD Service: ? Author Type: Physician Type: Progress Notes Filed: 06/12/2024 16:17 Note Text: If she was sent back to [facility] for rehab then I just need to see her when she is released from there. If she is now in assisted living then yes we should see her this week and get a f/u CBC.[facility]02-24-2025 NoteHNO ID: [id number] Author: JOHN GOMEZ MA Service: ? Author Type: Hide Curer Type: Progress Notes Filed: 06/12/2024 10:43 Note Text: Scan on 06/08/2024 4:57 PM by ProviderМарина PA-C: Consultation - Emergency Medicine Potential GI bleed. No bleeding upon exam at hospital. Follow up 3-5 days with PCP. Patient was already scheduled for 08/01/2024 for previous hospital/[facility] discharge. Do you patient seen sooner? John Gomez [facility]02-24-2025 History of Present illness Narrative* John Gomez MA - 06/12/2024 10:40 AM EST Scan on 06/08/2024 4:57 PM by Provider, ROSALINA ParishC: Consultation - Emergency Medicine Potential GI bleed. No bleeding upon exam at hospital. Follow up 3-5 days with PCP. Patient was already scheduled for 08/01/2024 for previous hospital/[facility] discharge. Do you patient seen sooner? John Gomez MA documented in this encounterOhiohealth Marion General Hospital02-12-2025 Telephone encounter Note * Telephone Encounter - Rufino Erickson MD - 05/31/2024 8:32 PM EST Noted. [facility]02-12-2025 Miscellaneous Notes* Telephone Encounter - Rufino Erickson MD - 05/31/2024 8:32 PM EST Noted. * Telephone Encounter - Nikia Pineda RN - 05/31/2024 2:30 PM EST [facility] to give provider an update since appt yesterday. BP sitting 122/62 BP standing 150/70 Lung sounds are clear with a very occasional bronchial wheeze noted. Mary said for any questions please feel free to reach her at [phone]. Nikia Pineda RN documented in this encounterOhiohealth Marion General Hospital02-12-2025 Telephone encounter Note * Telephone Encounter - Nikia Pineda RN - 05/31/2024 2:30 PM EST Mary Machado [facility] calls to give provider an update since appt yesterday. BP sitting 122/62 BP standing 150/70 Lung sounds are clear with a very occasional bronchial wheeze noted. Mary said for any questions please feel free to reach her at [phone]. Nikia Pineda RN [facility]02-11-2025 Instructions* Patient Instructions* Rufino Erickson MD - 05/30/2024 12:11 PM EST Make sure the skilled rehab center helps get appointments set up with Dr. Choi in cardiology, Dr. Bonilla in neurology when they are planing to discharge her. documented in this encounterOhiohealth Marion General Hospital02-11-2025 NoteHNO ID: [id number] Author: RUFINO ERICKSON MD Service: ? Author Type: Physician Type: Progress Notes Filed: 05/30/2024 13:37 Note Text: Chief Complaint Patient presents with: [facility] F/U [facility] Krystyna Khanna is a 89 year old female who presents here today for 6 month follow up. Espinoza her son is with her today. Patient was admitted to [facility] on 04/20/2024 and discharged on 05/03/2024 to fdc for rehab. Patient had been diagnosed with [...] aid with sleep. Patient is currently in [facility] fdc: They just had a meeting this week [...] and has improved. [place] (more content not included)...[facility]02-11-2025 History of Present illness Narrative* Rufino Erickson MD - 05/30/2024 11:03 AM EST Chief Complaint Patient presents with: Hospital F/U [facility] Krystyna Khanna is a 89 year old female who presents here today for 6 month follow up. Espinoza her son is with her today. Patient was admitted to [facility] on 04/20/2024 and discharged on 05/03/2024 to fdc for rehab. Patient had been diagnosed with [...] aid with sleep. Patient is currently in [facility] fdc: They just had a meeting this week and plan to keep her for another 4 weeks at this time. She is to /u [facility] Dr. Choi for cardiology and Dr. Bonilla [...] which included preparing to see the patient, [id number] patient care, completing clinical documentation, performing a medically appropriate examination, counseling and educating the patient/family/caregiver and ordering medications, tests, or procedures. Rufino Erickson MD documented in this encounterOhiohealth Marion General Hospital01-15-2025 NoteHNO ID: [id number] Author: TIFF HALL LPN Service: ? Author Type: LICENSED NURSE Type: Progress Notes Filed: 05/03/2024 07:32 Note Text: Pt was transferred to fdc facility. Scan on 05/02/2024 12:29 PM by Марина Olivia PA-C: Discharge Summary Scan on 05/02/2024 11:30 AM by Марина Olivia PA-C: Discharge Summary [facility]01-15-2025 History of Present illness Narrative* Tiff Hall LPN - 05/03/2024 7:27 AM EST Pt was transferred to fdc facility. Scan on 05/02/2024 12:29 PM by Марина Olivia PA-C: Discharge Summary Scan on 05/02/2024 11:30 AM by Марина Olivia PA-C: Discharge Summary documented in this encounterOhiohealth Marion General Hospital01-14-2025 [facility]01-06-2025 NoteHNO ID: [id number] Author: JOHN GOMEZ MA Service: ? Author Type: Hide Curer Type: Progress Notes Filed: 04/24/2024 16:39 Note Text: Scan on 04/21/2024 8:17 AM by Марина Olivia PA-C: Consultation - Emergency Medicine [facility] History of Present illness Narrative* John Gomez MA - 04/24/2024 4:38 PM EST Scan on 04/21/2024 8:17 AM by Марина Olivia PA-C: Consultation - Emergency Medicine John Gomez MA documented in this encounterOhiohealth Marion General Hospital01-02-2025 [facility]01-02-2025 [facility]01-02-2025 NoteHNO ID: [id number] Author: TIFF HALL LPN Service: ? Author Type: LICENSED NURSE Type: Progress Notes Filed: 04/20/2024 06:57 Note Text: Scan on 04/18/2024 4:01 PM by Марина Olivia PA-C: Consultation - Emergency Medicine Scan on 04/18/2024 4:06 PM by Марина Olivia PA-C Scan on 04/19/2024 10:37 AM by Марина Olivia PA-C: Consultation - Neurology [facility]01-02-2025 History of Present illness Narrative* Tiff Hall LPN - 04/20/2024 6:55 AM EST Scan on 04/18/2024 4:01 PM by ProviderМарина PA-C: Consultation - Emergency Medicine Scan on 04/18/2024 4:06 PM by Марина Olivia PA-C Scan on 04/19/2024 10:37 AM by Марина Olivia PA-C: Consultation - Neurology documented in this encounterOhiohealth Marion General Hospital12-31-2024 Telephone encounter Note * Telephone Encounter [...] going back to ER. Nikia Pineda RN [facility]12-31-2024 Miscellaneous Notes* Telephone Encounter - Nikia [...] ER. Nikia Pineda, RN documented in this encounterOhiohealth Marion General Hospital12-31-2024 Telephone encounter Note * Telephone Encounter - Sahara Lockett PSS - 04/18/2024 10:54 AM EST Date/Time: 04/18/2024 10:54 AM Spoke with Espinoza Khanna (Son) @ phone #: - Preferred # for contact: Espinoza Khanna (Son) Have you received help from a home care company in the last 60 days? no Are you agreeable to [facility] services? yes What address will we be seeing you at? [address] [place] [id number] Do you have any upcoming appointments or things we need to schedule around? No appointment , but may go the ER Do you have a teachable CG or can you manage your care independently? yes Who? Espinoza Khanna (Son) Have you received the flu shot? no If so, when and where? na [facility]12-31-2024 Miscellaneous Notes* Telephone Encounter - Sahara Lockett PSS - 04/18/2024 10:54 AM EST Date/Time: 04/18/2024 10:54 AM Spoke with Espinoza Khanna (Son) @ phone #: - Preferred # for contact: Espinoza Khanna (Son) Have you received help from a home care company in the last 60 days? no Are you agreeable to [facility] services? yes What address will we be seeing you at? [address] [facility] [address] Do you have any upcoming appointments or things we need to schedule around? No appointment , but may go the ER Do you have a teachable CG or can you manage your care independently? yes Who? Espinoza Khanna (Son) Have you received the flu shot? no If so, when and where? na documented in this encounterOhiohealth Marion General Hospital12-31-2024 Telephone encounter Note * Telephone Encounter [...] services in the patient's area. James [facility] (Home Health) [address] [place] [address], [place] [address] [facility] [address] [place] [address] [facility] Work Phone: 1(879) 750-547612-31-2024 Miscellaneous Notes* Telephone Encounter - Tracie Parker [...] services in the patient's area. James Alexander [facility] ([facility]) [address] [address] [facility] [address] [place], [place] [id number] documented in this encounterOhiohealth Marion General Hospital12-30-2024 Telephone encounter Note * Telephone Encounter - Pau Grady LPN - 04/17/2024 3:05 PM EST Okay thank you, Also after further review we would need the visit note updated to correlate weakness is due to RSV. Please let us know when updated. Thank you, Pau Grady LPN [facility] Work Phone: 1(679) 447-332712-30-2024 Miscellaneous Notes* Telephone Encounter - Pau Grady LPN - 04/17/2024 3:05 PM EST Okay thank you, Also after further review we would need the visit note updated to correlate weakness is due to RSV. Please let us know when updated. Thank you, Pau Grady LPN * Telephone Encounter - Lulu Staton APRN.KRISTINE - 04/17/2024 10:39 AM EST No fdc needs. Patient is having weakness following hospitalization and RSV. * Telephone Encounter - Pau Grady LPN - 04/17/2024 10:29 AM EST Thank you for the referral for Krystyna Khanna to receive home care services through [facility]. Based off diagnosis patient would benefit [...] you, Pau Grady LPN documented in this encounterOhiohealth Marion General Hospital12-30-2024 Telephone encounter Note * Telephone Encounter - Ashli Reyes LPN - 04/17/2024 11:47 AM EST PATIENT NOTIFIED OF SAME. [facility]12-30-2024 Miscellaneous Notes* Telephone Encounter - Ashli [...] their xray is normal. documented in this encounterOhiohealth Marion General Hospital12-30-2024 Telephone encounter Note * Telephone Encounter - Antoinette Serrano MA - 04/17/2024 10:57 AM EST Left message for patient to return call to office Antoinette Serrano MA [facility]12-30-2024 Telephone encounter Note* Telephone Encounter - Lulu Staton APRN.CNP - 04/17/2024 10:43 AM EST Please let patient know their xray is normal. [facility]12-30-2024 Telephone encounter Note* Telephone Encounter - Lulu Staton APRN.CNP - 04/17/2024 10:39 AM EST No fdc needs. Patient is having weakness following hospitalization and RSV. [facility]12-30-2024 Telephone encounter Note* Telephone Encounter - Pau Grady LPN - 04/17/2024 10:29 AM EST Thank you for the referral for Krystyna Khanna to receive home care services through [facility]. Based off diagnosis patient would benefit from SN services, can SN be added to [facility] orders/office note? Per CMS guidelines your office note needs to include a discussion of HHC with the following: - why is HHC needed - why is the patient homebound - what is the diagnosis that [facility] is seeing the patient for. Thank you, Pau Grady LPN [facility]12-30-2024 History of Present illness Narrative* Cindy Khoury, [...] PATIENT PRESENTS WITH AN IMPLANTABLE OR ATTACHED FIELD INSURANCE SALES MANAGER: No RADIOLOGY DEPARTMENT: General X-ray: Exam(s) Completed: Chest X-Ray PERIPHERAL IV DATA: Not applicable SIGNED BY: RT Joya(R) April 17, 2024 9:59 AM documented in this encounterOhiohealth Marion General Hospital12-30-2024 NoteHNO ID: [id number] Author: CINDY KHOURY RT(R) Service: ? Author Type: Hand Bobbin Cleaner Type: Progress Notes Filed: 04/17/2024 10:12 Note [...] PATIENT PRESENTS WITH AN IMPLANTABLE OR ATTACHED FIELD INSURANCE SALES MANAGER: No RADIOLOGY DEPARTMENT: General X-ray: Exam(s) Completed: Chest X-Ray PERIPHERAL IV DATA: Not applicable SIGNED BY: RT Joya(R) April 17, 2024 9:59 [facility]12-30-2024 NoteHNO ID: [id number] Author: LULU STATON APRN.DIVISION COMMANDER Service: ? Author Type: Nurse Practitioner Type: [...] to PT. - CONSU (more content not included)...[facility]12-30-2024 History of Present illness Narrative* Lulu Staton, PHI.DIVISION COMMANDER - 04/17/2024 8:55 AM EST Chief Complaint [...] decreased endurance since being home and recommend [facility] for PT to recover strength and stamina. Patient and son agreeable to PT. - CONSULT TO [facility] AT HOME 2. RSV (acute bronchiolitis due to respiratory syncytial virus) - ICD9: 466.11, ICD10: J21.0 - CONSULT TO [facility] - XR CHEST 2V FRONTAL/LAT Lulu Staton APRN.DIVISION COMMANDER documented in this encounterOhiohealth Marion General Hospital12-22-2024 [facility]12-20-2024 NoteHNO ID: [id number] Author: ULICES MOYA APRN.DIVISION COMMANDER Service: ? Author Type: Nurse Practitioner Type: [...] refer to Er. Family to drive to [facility], unclear what ER will go to at this time. 2. Rhonchi - ICD9: 786.7, ICD10: R09.89 - ALBUTEROL SULFATE 2.5 MG/3 ML (0.083 %) SOLUTION FOR NEBULIZATION - no improvement in respiration or vs. Ulices Moya APRN.KRISTINEBrown Memorial Hospital12-20-2024 History of Present illness Narrative* Ulices Moya APRN.DIVISION COMMANDER - 04/07/2024 4:55 PM EST Subjective HPI [...] refer to Er. Family to drive to [facility], unclear what ER will go to at this time. 2. Rhonchi - ICD9: 786.7, ICD10: R09.89 - ALBUTEROL SULFATE 2.5 MG/3 ML (0.083 %) SOLUTION FOR NEBULIZATION - no improvement in respirationor vsRoney Moya APRN.DIVISION COMMANDER documented in this encounterOhiohealth Marion General Hospital11-01-2024 Telephone encounter Note * Telephone Encounter [...] Daniela Galicia February 18, 2024 9:45 AM [facility]11-01-2024 Miscellaneous Notes* Telephone Encounter - Daniela [...] 18, 2024 9:45 AM documented in this encounterOhiohealth Marion General Hospital09-24-2024 Telephone encounter Note * Telephone Encounter - Tiff Hall LPN - 01/11/2024 11:12 AM EDT Patient notified of results and provider's instructions. Patient verbalizes understanding. Tiff Hall LPN [facility]09-24-2024 Miscellaneous Notes* Telephone Encounter - Tiff Hall LPN - 01/11/2024 11:12 AM EDT Patient notified of results and provider's instructions. Patient verbalizes understanding. Tiff Hall LPN * Telephone Encounter - Rufino Erickson MD - 01/11/2024 10:46 AM EDT Let patient know chest x-ray was ok. Advise her to still take the antibiotic. documented in this encounterOhiohealth Marion General Hospital09-24-2024 Telephone encounter Note * Telephone Encounter - Rufino Erickson MD - 01/11/2024 10:46 AM EDT Let patient know chest x-ray was ok. Advise her to still take the antibiotic. [facility]09-24-2024 History of Present illness Narrative* Sushil [...] PATIENT PRESENTS WITH AN IMPLANTABLE OR ATTACHED FIELD INSURANCE SALES MANAGER: No RADIOLOGY DEPARTMENT: General X-ray: Exam(s) Completed: Chest X-Ray PERIPHERAL IV DATA: Not applicable SIGNED BY: RT Darek(R) January 11, 2024 10:29 AM documented in this encounterOhiohealth Marion General Hospital09-24-2024 Instructions* Patient Instructions* Rufino Eirckson MD - 01/11/2024 10:09 AM EDT While you are taking the levofloxacin for th next 10 days stop your calcium pill. documented in this encounterOhiohealth Marion General Hospital09-24-2024 History of Present illness Narrative* Rufino [...] SOB? no Any fever? No documented fever. [place] cold some yesterday Slight post nasal drainage. [...] prn. Rufino Erickson MD documented in this encounterOhiohealth Marion General Hospital09-10-2024 Note* Addendum Note - Rufino Erickson MD - 12/28/2023 11:30 AM EDTAddended by: RUFINO ERICKSON on: 12/28/2023 11:30 AM Modules accepted: Orders [facility]09-10-2024 Miscellaneous Notes* Addendum Note - Rufino Erickson MD - 12/28/2023 11:30 AM EDTAddended by: RUFINO ERICKSON on: 12/28/2023 11:30 AM Modules accepted: Orders documented in this encounterOhiohealth Marion General Hospital09-10-2024 History of Present illness Narrative* Tiff Hall LPN - 12/28/2023 11:18 AM EDT Scan on 12/28/2023 11:12 AM by Provider, MOLLY Parish: Consultation - Cardiology documented in this encounterOhiohealth Marion General Hospital08-16-2024 History of Present illness Narrative* Cindy [...] PATIENT PRESENTS WITH AN IMPLANTABLE OR ATTACHED FIELD INSURANCE SALES MANAGER: No RADIOLOGY DEPARTMENT: General X-ray: Exam(s) Completed: Upper Extremity X- Ray(s): Elbow, left and Wrist, left PERIPHERAL IV DATA: Not applicable SIGNED BY: RT Joya(R) December 03, 2023 3:57 PM documented in this encounterOhiohealth Marion General Hospital08-16-2024 History of Present illness Narrative* Ulices Moya APRN.DIVISION COMMANDER - 12/03/2023 3:43 PM EDT Images from [...] WRIST GENERAL 3V PA/LAT/OBL LEFT Ulices Moya APRN.DIVISION COMMANDER documented in this encounterOhiohealth Marion General Hospital08-08-2024 History of Present illness Narrative* Lulu [...] Abs Lymph 1.00 - 4.00 k/uL 2.68 Patrick% % 19.1 Abs Patrick <0.87 k/uL 1.89 (H) Eosin% % 0.0 Abs Eosin <0.46 k/uL 0.00 Baso% % 0.0 Abs Baso <0.11 k/uL 0.00 Platelet Estimate Decreased Red Cell Morph Reviewed: unremarkable DTYPE Manual Color Yellow Dark Yellow ! Clarity Clear Turbid ! Glucose, Urine Negative Negative Bilirubin, Urine Negative 1+ ! Ketones, Urine Negative Trace ! Specific [place], Ur 1.005 - 1.030 1.032 (H) Hemoglobin/Blood,Ur [...] M17.0 - PARKING FOR HANDICAPPED Lulu Staton APRN.DIVISION COMMANDER documented in this encounterOhiohealth [facility]08-08-2024 Instructions* Patient Instructions* Lulu Staton APRN.DIVISION COMMANDER - 11/25/2023 10:57 AM EDT Screening schedule [...] review all the medicines you take, even molc-dos-hndjyms medicines. As you get older, the way [...] have certain medical conditions. documented in this encounterOhiohealth [facility] Hospital07-31-2024 History of Present illness Narrative* John Gomez MA - 11/17/2023 3:23 PM EDT Scan on 11/13/2023 12:07 PM by Provider, MOLLY Parihs: Consultation - Emergency Medicine John Gomez MA documented in this encounterOhiohealth Marion [facility] Hospital07-02-2024 Telephone encounter Note * Telephone Encounter - Samanta Song RN - 10/19/2023 9:59 AM EDT Pt called and is notified of providers results and instructions. Pt voices understanding. Samanta Song RN [facility]07-02-2024 Miscellaneous Notes* Telephone Encounter - Samanta [...] Thanks. Sarah Yang PA-C documented in this encounterOhiohealth Marion [facility] Hospital07-02-2024 Telephone encounter Note * Telephone Encounter - Sarah Yang PA-C - 10/19/2023 9:27 AM EDT Noted. Will have her continue the omeprazole. She can try adding the claritin and see if symptoms improve more. Sarah Yang PA-C [facility]07-02-2024 Telephone encounter Note* Telephone Encounter - Tiff Hall LPN - 10/19/2023 8:35 AM EDT Spoke with pt. She reports cough has gotten better. Has to clear her throat once in awhile and still has some yellow colored phlegm but states she is better. Tiff Hall LPN [facility]07-02-2024 Telephone encounter Note* Telephone Encounter - Sarah Yang PA-C - 10/19/2023 7:54 AM EDT Please check with patient on whether cough has improved since starting omeprazole. Thanks. Sarah Yang PA-C [facility]06-24-[facility]24 Telephone encounter Note* Telephone Encounter - [...] once daily. Authorizing Provider: RUFINO ERICKSON MD [facility]06-24-[facility]24 Miscellaneous Notes* Telephone Encounter - Rufino [...] Thank you. Amy Breen. documented in this encounterOhiohealth Marion [facility] Hospital06-24-2024 Telephone encounter Note * Telephone Encounter [...] 11/25/2023 Please advise. Thank you. Amy Breen. [facility]05-21-[facility]24 Instructions* Patient Instructions* Sarah Yang PA-C [...] in November for now. documented in this encounterOhiohealth Marion [facility] Hospital05-21-2024 History of Present illness Narrative* Sarah Yang PA-C - 09/07/2023 10:26 AM EDT Chief Complaint Patient presents with: Follow Up Cough: Has an occasional productive cough HPI Krystyna Khanna is a 88 year old female who presents here today for Above Complaints.. Patient continue to cough at times although has been quite improved. Seems to sometimes be after a meal. Did not pickle solution maker the claritin. States she didn't realize [...] claritin. Sarah Yang PA-C documented in this encounterOhiohealth Marion [facility] Hospital04-17-2024 Miscellaneous Notes* Telephone Encounter - Marcia [...] with her chronic cough. documented in this encounterOhiohealth Marion [facility] Hospital04-16-2024 History of Present illness Narrative* Emily Holloway RPFT - 08/03/2023 11:34 AM EDT PULM FUNCTION SMARTBLOCK: Provider: Sarah Yang PA-C Assisting Tech: Emily Holloway RPFT Spirometry w/BD: 1 documented in this encounterOhiohealth Marion [facility] Hospital04-10-2024 Miscellaneous Notes* Telephone Encounter - Yasemin [...] Continue as we discussed. [place] [address] History of Present illness Narrative* Yary Perez [...] PATIENT PRESENTS WITH AN IMPLANTABLE OR ATTACHED FIELD INSURANCE SALES MANAGER: No RADIOLOGY DEPARTMENT: General X-ray: Exam(s) Completed: Chest X-Ray PERIPHERAL IV DATA: Not applicable SIGNED BY: RT Isaias(R) July 27, 2023 1:34 PM documented in this encounterOhiohealth Marion [facility] Hospital04-09-2024 History of Present illness Narrative* Sarah [...] DILATOR Sarah Yang PA-C documented in this encounterOhiohealth Marion [facility] Hospital03-22-2024 Miscellaneous Notes* Telephone Encounter - Rufino [...] Thank you. Nataliia Mancuso. documented in this encounterOhiohealth Marion [facility] Hospital03-11-2024 Miscellaneous Notes* Telephone Encounter - Tiff [...] you. Tiff Hall LPN. documented in this encounterOhiohealth Marion General Hospital02-08-2024 History of Present illness Narrative* Joanne [...] 2D ECHO (EXEP) 10/28/2020 EF=60%, 1+ TImod lavarez dysf ARTHRP KNE CONDYLE&PLATU MEDIAL&LAT COMPARTMENTS Left [...] Abs Lymph 1.00 - 4.00 k/uL 2.84 Patrick% % 14.8 Abs Patrick <0.87 k/uL 0.89 (H) Eosin% % 1.3 [...] prior Rufino Erickson MD documented in this encounterOhiohealth Marion [facility] Hospital02-08-2024 Instructions* Patient Instructions* Rufino Erickson MD - 05/27/2023 10:17 AM EST Please get labs and urine test done on or after 11/12/2023 prior to your next visit. documented in this encounterOhiohealth Marion [facility] Hospital12-11-2023 History of Present illness Narrative* Tiff Hall LPN - 03/29/2023 11:45 AM EST Scan on 03/29/2023 11:35 AM by Provider, Марина, MOLLY: Consultation - Cardiology documented in this encounterOhiohealth Marion General Hospital12-11-2023 Miscellaneous Notes* Telephone Encounter - Antoinette Serrano Cma - 03/29/2023 9:36 AM EST Pt notified and verbalized understanding Antoinette Serrano Cma * Telephone Encounter - Lulu Staton APRN.CNP - 03/29/2023 9:06 AM EST Please let patient know their xray is normal. documented in this encounterOhiohealth Marion General Hospital12-08-2023 History of Present illness Narrative* Sushil [...] 26, 2023 10:44 AM documented in this encounterOhiohealth Marion General Hospital12-07-2023 Miscellaneous Notes* Telephone Encounter - MitchelAntoinette brown Cma - 03/25/2023 5:59 PM EST Pt and son notified and verbalized understanding. Pt is feeling much better Antoinette Serrano Cma * Telephone Encounter - Lulu Staton APRN.DIVISION COMMANDER - 03/25/2023 10:56 AM EST Please let [...] Patient son Espinoza campos mother had seen uLlu Staton MALTED MILK MIXER on 03/08/2023 and had repeat chest xray done 03/19, he is asking for results. Aware MALTED MILK MIXER is out of the office today. Please advise 03/20/2023 8:22 AM - Radiology, Oru In Impression IMPRESSION: Questionable changes of bronchitis in the right perihilar region. A follow-up exam is recommended. Management Trainee Marketing: PSCB Transcribe Date/Time: Mar 20 2023 8:16A [...] and soft tissues: Unremarkable. documented in this encounterOhiohealth Marion [facility] Hospital12-01-2023 History of Present illness Narrative* Sushil [...] 19, 2023 10:47 AM documented in this encounterOhiohealth Marion [facility] Hospital11-20-2023 History of Present illness Narrative* Lulu Staton, PHI.DIVISION COMMANDER - 03/08/2023 12:58 PM EST Chief Complaint [...] - BENZONATATE 100 MG CAPSULE Lulu Staton APRN.DIVISION COMMANDER documented in this encounterOhiohealth Marion [facility] Hospital11-17-2023 History of Present illness Narrative* Sushil [...] 05, 2023 9:37 AM documented in this encounterOhiohealth Marion [facility] Hospital11-17-2023 History of Present illness Narrative* Samanta Mock APRN.DIVISION COMMANDER - 03/05/2023 9:19 AM EST SUBJECTIVE: Krystyna [...] INHALER Samanta Mock APRN.KRISTINE documented in this encounterOhiohealth Marion [facility] Hospital11-10-2023 Miscellaneous Notes* Telephone Encounter - Rolly Gaytan RN - 02/26/2023 8:13 AM EST Phoned patient and given provider's message below with verbalized understanding. Patient agreeable.Scheduled f/u appt. * Telephone Encounter - Rufino Erickson MD - 02/26/2023 7:50 AM EST Patient recently seen in psychiatric and diagnosed with pneumonia. Needs f/u in 10-12 days to re-assess and to place order for repeat chest x-ray in 3-4 weeks. documented in this encounterOhiohealth Marion General Hospital10-27-2023 Miscellaneous Notes* Addendum Note - Samanta Mock APRN.CNP - 02/12/2023 11:03 AM EDTAddended by: SAMANTA MOCK on: 02/12/2023 11:03 AM Modules accepted: Orders documented in this encounterOhiohealth Marion General Hospital10-27-2023 History of Present illness Narrative* Sushil [...] 12, 2023 10:24 AM documented in this encounterOhiohealth Marion General Hospital10-27-2023 History of Present illness Narrative* Samanta [...] My Chart. MDM: Patient presented to the [facility] today for COVID and Influenza testing. Vital [...] covid test was ordered documented in this encounterOhiohealth Marion General Hospital09-25-2023 Instructions* Patient Instructions* Ulices Moya APRN.CNP [...] BENZONATATE 100 MG CAPSULE documented in this encounterOhiohealth Marion General Hospital09-25-2023 History of Present illness Narrative* Ulices [...] - BENZONATATE 100 MG CAPSULE Ulices Moya APRN.DIVISION COMMANDER documented in this encounterOhiohealth Marion General Hospital09-11-2023 History of Present illness Narrative* Tiffani [...] included:Therapeutic exercise, Neuromuscular re-education, Therapeutic activities, and Self-chcf management. Goals for Episode of Care: created [...] difficulty standing and talking to people at [facility] but could maybe do 10 minutes, but [...] 1520 Tiffani Kebede PT documented in this encounterOhiohealth Marion General Hospital09-01-2023 History of Present illness Narrative* Tiffani [...] 1434 DERREK Mckeon PT documented in this encounterOhiohealth Marion [facility] Hospital08-25-2023 History of Present illness Narrative* Tiffani [...] 1435 DERREK Mckeon, PT documented in this encounterOhiohealth Marion General Hospital08-21-2023 History of Present illness Narrative* Tiffani [...] technique with biofeedback. Patient education as noted. Self-Assisted Management: 1: *discussed selecting mattresses based on [...] 1610 Tiffani O'Justin, PT documented in this encounterOhiohealth Marion General Hospital08-14-2023 History of Present illness Narrative* Tiffani [...] Planned: 12 Planned Treatment Interventions: Therapeutic exercise (95838), Neuromuscular re- education (84576), Manual therapy (39542), Therapeutic activities (84979), Self- chcf management (03431), Gait Training (65459) PLAN FOR NEXT VISIT: assess symptom response [...] Demonstration TREATMENT: PT Treatment Interventions: Therapeutic Exercise, Self-Assisted Management Evaluation Therapeutic Exercise: 1: *hook lying TA activation 3-4x10 (tactile cues for technique) 2: *hook lying BLE KTC stretch 3x30 seconds, twice daily 3: *HEP 2x/day, in addition to current exercise program through [facility] Skilled Intervention: Patient was educated in proper [...] and function . Patient education as noted. Self-Assisted Management: 1: *stopping any exercise that causes [...] 1430 Tiffani Kebede PT documented in this encounterOhiohealth Marion [facility] Hospital08-10-2023 Miscellaneous Notes* Telephone Encounter - Sarah [...] management for possible treatments? documented in this encounterOhiohealth Marion General Hospital08-09-2023 Miscellaneous Notes* Telephone Encounter - Tiff Hall LPN - 11/25/2022 1:49 PM EDT Patient notified of results and provider's instructions. Patient verbalizes understanding. Tiff Hall TOPOGRAPHICAL SURVEYOR * Telephone Encounter - Sarah Yang PA-C - 11/25/2022 1:32 PM EDT Let patient know her culture was negative for infection. If symptoms of the lower abdominal pressure continue, patient should let me know. Would want to do US. Sarah Yang PA-C documented in this encounterOhiohealth Marion [facility] Hospital08-09-2023 Miscellaneous Notes* Telephone Encounter - Tiff Hall LPN - 11/25/2022 9:13 AM EDT Patient notified of results and provider's instructions. Patient verbalizes understanding. Tiff Hall TOPOGRAPHICAL SURVEYOR * Telephone Encounter - Sarah Yang PA-C - 11/25/2022 8:29 AM EDT Let patient know that metabolic panel is normal. Her a1c is 5.8% which is stable. Cholesterol is normal. Urine is clear but I'm waiting on culture yet. Will contact her if abnormal. Vit d level is normal. Thanks. Sarah Yang PA-C documented in this [facility]08-08[facility] History of Present illness Narrative* Sushil [...] 24, 2022 2:11 PM documented in this encounterOhiohealth Marion General Hospital08-08-2023 Instructions* Patient Instructions* Sarah Yang PA-C - 11/24/2022 1:25 PM EDT Labs today. Let me know if the urinary and stomach symptoms aren't improving. We will see what urine shows. documented in this encounterOhiohealth Marion General Hospital08-08-2023 History of Present illness Narrative* Sarah [...] taking: No sig reported) vit A-vit C-vit M-ellp-lmdfua 7,160-113-100 sgup-sw-ogah tab Take by mouth. (Patient not taking: [...] which included preparing to see the patient, ovjr-nd-uvzs patient care, completing clinical documentation, obtaining and/or reviewing separately obtained history, performing a medically appropriate examination, counseling and educating the pat ient/family/caregiver, ordering medications, tests, or procedures, and communicating results to thepatient/family/caregiver. documented in this encounterOhiohealth Marion General Hospital04-03-2023 Miscellaneous Notes* Telephone Encounter - Jannette [...] you. Jannette Reyna LPN documented in this encounterOhiohealth Marion General Hospital03-18-2023 History of Present illness Narrative* John Gomez MA - 07/04/2022 10:50 AM EDT Scan on 07/03/2022 9:52 AM by External Provider: Consultation - Cardiology John Gomez MA documented in this encounterOhiohealth Marion General Hospital02-08-2023 Instructions* Patient Instructions* Rufino Erickson MD - 05/27/2022 11:51 AM EST Please get labs and urine test done on or after 11/13/2022 prior to your next visit. documented in this encounterOhiohealth Marion General Hospital02-08-2023 History of Present illness Narrative* Rufino [...] taking: No sig reported) vit A-vit C-vit E-usec-bstutz 7,160-113-100 yxbw-ds-gjpk tab Take by mouth. (Patient not taking: [...] Lymph 1.00 - 4.00 k/uL 2.85 2.58 Patrick% % 16.3 14.2 Abs Patrick <0.87 k/uL 0.98 (H) 0.71 Eosin% % [...] prior Rufino Erickson MD documented in this encounterOhiohealth Marion [facility] Hospital01-05-2023 Miscellaneous Notes* Telephone Encounter - Nataliia [...] Thank you. Nataliia Mancuso documented in this encounterOhiohealth Marion General Hospital12-09-2022 History of Present illness Narrative* Ulices [...] taking: No sig reported) vit A-vit C-vit H-oslu-nyfqiz 7,160-113-100 mebm-xz-rjyr tab Take by mouth. (Patient not taking: [...] (4' 10) Wt 77.1 kg (170 lb) GzB365% BMI 35.53 kg/m Last 4 Encounter Wt [...] TABLET Ulices Garcia MD documented in this encounterOhiohealth Marion General Hospital10-15-2022 History of Present illness Narrative* Shady Smiley MD - 01/31/2022 12:37 PM EDT Patient presents with: Cough: Sore throat, drainage x 3 days HPI: Feeling sick for 4 days. Positive symptoms: Cough, Sore throat, Nasal Congestion, Rhinorrhea, Post nasal drainage, little Headache, Negative symptoms: Earache, Fever, Chills, Body Aches, Vomiting, Diarrhea, OTC: Tylenol Had third dose of [employer] COVID-19 vaccine January 2021. Had COVID illness [...] Reported on 09/21/2021 ) vit A-vit C-vit C-oguo-cwyekd (EYE VITAMIN AND MINERALS) 7,160-113-100 yizj-bq-isnx tab Take by mouth. (Patient not taking: [...] CORONAVIRUS Shady Smiley MD documented in this encounterOhiohealth Marion [facility] Hospital08-24-2022 Miscellaneous Notes* Telephone Encounter - Debra Hernandez LPN - 12/10/2021 11:37 AM EDT Patient notified. Debra Hernandez LPN * Telephone Encounter - Tia Martinez MD - 12/10/2021 11:35 AM EDT Please notify patient that her hepatitis C antibody was negative. Follow-up with PCP Tia Martinez MD documented in this encounterOhiohealth Marion General Hospital08-23-2022 History and physical note * iTa Martinez MD - 12/09/2021 3:42 PM EDT Hematology and Medical Oncology PATIENT NAME: Krystyna Khanna. CLINIC NO: [id number]. ATTENDING PHYSICIAN: Tia Martinez MD. DATE OF [...] hepatitis 35 years ago while working at [email or web address]. No historyof alcohol use. No family history [...] Reported on 09/21/2021 ) vit A-vit C-vit M-vzno-qhqenp (EYE VITAMIN AND MINERALS) 7,160-113-100 sbdp-mx-gifw tab Take by mouth. (Patient not taking: [...] Abs Lymph 1.00 - 4.00 k/uL 2.66 Patrick% % 14.0 Abs Patrick <0.87 k/uL 0.69 Eosin% % 0.2 Abs [...] with more than 50% of the total ygpn-dl-tcpm time of the visit in counseling / coordination of care. Follow-up with PCP. Tia Martinez MD. ELECTRONICALLY SIGNED Cc: Dr. Rufino Erickson documented in this encounterOhiohealth Marion General Hospital08-12-2022 Miscellaneous Notes* Telephone Encounter - Yasemin [...] patient with Dr. Martinez as noted below; MALTED MILK MIXER/THROMBOCYTOPENIA/REFERRED BY SARAH YANG* Once scheduled, please attach [...] Sarah Yang, patient can be reached at [phone] (I tried to schedule this but kept saying provider does not match visit type restrictions) Thank you Felipa Galicia documented in this encounterOhiohealth Marion General Hospital08-12-2022 Miscellaneous Notes* Telephone Encounter - Tiff [...] normal. Sarah Yang PA-C documented in this encounterOhiohealth Marion General Hospital08-10-2022 Miscellaneous Notes* Telephone Encounter - Rufino [...] her know if abnormal. documented in this encounterOhiohealth Marion General Hospital08-04-2022 Instructions* Patient Instructions* Sarah Yang PA-C - 11/20/2021 10:50 AM EDT If interested in shingrix vaccine- go to pharmacy to complete. Also consider the pneumonia vaccine. Please get labs done today. documented in this encounterOhiohealth Marion General Hospital08-04-2022 History of Present illness Narrative* Sarah [...] Reported on 09/21/2021 ) vit A-vit C-vit Q-skhx-hdfdml (EYE VITAMIN AND MINERALS) 7,160-113-100 qaij-cj-lfsy tab Take by mouth. (Patient not taking: [...] routine. Sarah Yang PA-C documented in this encounterOhiohealth Marion [facility] Hospital07-01-2022 Miscellaneous Notes* Telephone Encounter - John [...] patient. Jannette Marie Pss documented in this encounterOhiohealth Marion General Hospital06-06-2022 History of Present illness Narrative* Sushil [...] 22, 2021 11:13 AM documented in this encounterOhiohealth Marion General Hospital06-05-2022 Instructions* Patient Instructions* Kiera Benson APRN.CNP [...] breath, inability to swallow. documented in this encounterOhiohealth Marion General Hospital06-05-2022 History of Present illness Narrative* Kiera Benson APRN.CNP - 09/21/2021 2:21 PM EDT Subjective The history is provided by the patient. No photo technician was used. HPI Krystyna Khanna is a [...] have confirmed and edited as necessary, the [facility] Review of Systems Constitutional: Negative [...] Thick Cloudy Post Nasal Drainage Mouth/Throat: Lips: [place]. Mouth: Mucous membranes are moist. Pharynx: Uvula [...] evaluation. Kiera Benson APRN.CNP documented in this encounterOhiohealth Marion General Hospital08-05-2021 History of Present illness Narrative* Yary [...] 21, 2020 5:14 PM documented in this encounterOhiohealth Marion General Hospital08-08-2018 History of Past illness Narrative* Problem Noted Date Resolved Date Primary osteoarthritis of left knee 11/24/2017 12/23/2017 Arthritis of knee 11/19/2017 12/23/2017 documented as of this encounter (statuses as of 09/21/2021) [facility] of Past illness Narrative* Problem Noted Date Resolved Date Primary osteoarthritis of left knee 11/24/2017 12/23/2017 Arthritis of knee 11/19/2017 12/23/2017 documented as of this encounter (statuses as of 10/17/2021) [address]08-2018 History of Past illness Narrative* Problem Noted Date Resolved Date Primary osteoarthritis of left knee 11/24/2017 12/23/2017 Arthritis of knee 11/19/2017 12/23/2017 documented as of this encounter (statuses as of 11/20/2021) [address]08-2018 History of Past illness Narrative* Problem Noted Date Resolved Date Primary osteoarthritis of left knee 11/24/2017 12/23/2017 Arthritis of knee 11/19/2017 12/23/2017 documented as of this encounter (statuses as of 11/27/2021) [facility] of [facility] illness Narrative* Problem Noted Date Resolved Date Primary osteoarthritis of left knee 11/24/2017 12/23/2017 Arthritis of knee 11/19/2017 12/23/2017 documented as of this encounter (statuses as of 11/28/2021) [address]08-2018 History of Past illness Narrative* Problem Noted Date Resolved Date Primary osteoarthritis of left knee 11/24/2017 12/23/2017 Arthritis of knee 11/19/2017 12/23/2017 documented as of this encounter (statuses as of 11/28/2021) [facility] of [facility] illness Narrative* Problem Noted Date Resolved Date Primary osteoarthritis of left knee 11/24/2017 12/23/2017 Arthritis of knee 11/19/2017 12/23/2017 documented as of this encounter (statuses as of 12/10/2021) [address]08-2018 History of Past illness Narrative* Problem Noted Date Resolved Date Primary osteoarthritis of left knee 11/24/2017 12/23/2017 Arthritis of knee 11/19/2017 12/23/2017 documented as of this encounter (statuses as of 12/10/2021) [address]08-2018 History of Past illness Narrative* Problem Noted Date Resolved Date Primary osteoarthritis of left knee 11/24/2017 12/23/2017 Arthritis of knee 11/19/2017 12/23/2017 documented as of this encounter (statuses as of 01/31/2022) [address]08-2018 History of Past illness Narrative* Problem Noted Date Resolved Date Primary osteoarthritis of left knee 11/24/2017 12/23/2017 Arthritis of knee 11/19/2017 12/23/2017 documented as of this encounter (statuses as of 03/27/2022) [facility] Narrative* Problem Noted Date Resolved Date Primary osteoarthritis of left knee 11/24/2017 12/23/2017 Arthritis of knee 11/19/2017 12/23/2017 documented as of this encounter (statuses as of 04/24/2022) [facility] Narrative* Problem Noted Date Resolved Date Primary osteoarthritis of left knee 11/24/2017 12/23/2017 Arthritis of knee 11/19/2017 12/23/2017 documented as of this encounter (statuses as of 05/27/2022) [facility] Narrative* Problem Noted Date Resolved Date Primary osteoarthritis of left knee 11/24/2017 12/23/2017 Arthritis of knee 11/19/2017 12/23/2017 documented as of this encounter (statuses as of 07/05/2022) [facility] Narrative* Problem Noted Date Resolved Date Primary osteoarthritis of left knee 11/24/2017 12/23/2017 Arthritis of knee 11/19/2017 12/23/2017 documented as of this encounter (statuses as of 07/15/2022) [facility] Narrative* Problem Noted Date Resolved Date Primary osteoarthritis of left knee 11/24/2017 12/23/2017 Arthritis of knee 11/19/2017 12/23/2017 documented as of this encounter (statuses as of 07/20/2022) [facility] Narrative* Problem Noted Date Diagnosed Date Resolved Date Primary osteoarthritis of left knee 11/24/2017 12/23/2017 Arthritis of knee 11/19/2017 12/23/2017 documented as of this encounter (statuses as of 11/25/2022) [facility] Narrative* Problem Noted Date Diagnosed Date Resolved Date Primary osteoarthritis of left knee 11/24/2017 12/23/2017 Arthritis of knee 11/19/2017 12/23/2017 documented as of this encounter (statuses as of 11/25/2022) [facility] Narrative* Problem Noted Date Diagnosed Date Resolved Date Primary osteoarthritis of left knee 11/24/2017 12/23/2017 Arthritis of knee 11/19/2017 12/23/2017 documented as of this encounter (statuses as of 11/26/2022) [address] History of Past illness Narrative* Problem Noted Date Diagnosed Date Resolved Date Primary osteoarthritis of left knee 11/24/2017 12/23/2017 Arthritis of knee 11/19/2017 12/23/2017 documented as of this encounter (statuses as of 12/01/2022) [address]08-2018 History of Past illness Narrative* Problem Noted Date Diagnosed Date Resolved Date Primary osteoarthritis of left knee 11/24/2017 12/23/2017 Arthritis of knee 11/19/2017 12/23/2017 documented as of this encounter (statuses as of 12/08/2022) [address]08-2018 History of Past illness Narrative* Problem Noted Date Diagnosed Date Resolved Date Primary osteoarthritis of left knee 11/24/2017 12/23/2017 Arthritis of knee 11/19/2017 12/23/2017 documented as of this encounter (statuses as of 12/14/2022) [address]08-2018 History of Past illness Narrative* Problem Noted Date Diagnosed Date Resolved Date Primary osteoarthritis of left knee 11/24/2017 12/23/2017 Arthritis of knee 11/19/2017 12/23/2017 documented as of this encounter (statuses as of 12/22/2022) [address]08-2018 History of Past illness Narrative* Problem Noted Date Diagnosed Date Resolved Date Primary osteoarthritis of left knee 11/24/2017 12/23/2017 Arthritis of knee 11/19/2017 12/23/2017 documented as of this encounter (statuses as of 12/29/2022) [address]-2018 History of Past illness Narrative* Problem Noted Date Diagnosed Date Resolved Date Primary osteoarthritis of left knee 11/24/2017 12/23/2017 Arthritis of knee 11/19/2017 12/23/2017 documented as of this encounter (statuses as of 01/12/2023) [address]-2018 History of Past illness Narrative* Problem Noted Date Diagnosed Date Resolved Date Primary osteoarthritis of left knee 11/24/2017 12/23/2017 Arthritis of knee 11/19/2017 12/23/2017 documented as of this encounter (statuses as of 02/12/2023) [address]-2018 History of Past illness Narrative* Problem Noted Date Diagnosed Date Resolved Date Primary osteoarthritis of left knee 11/24/2017 12/23/2017 Arthritis of knee 11/19/2017 12/23/2017 documented as of this encounter (statuses as of 02/26/2023) [address]-2018 History of Past illness Narrative* Problem Noted Date Diagnosed Date Resolved Date Primary osteoarthritis of left knee 11/24/2017 12/23/2017 Arthritis of knee 11/19/2017 12/23/2017 documented as of this encounter (statuses as of 03/05/2023) [address]-2018 History of Past illness Narrative* Problem Noted Date Diagnosed Date Resolved Date Primary osteoarthritis of left knee 11/24/2017 12/23/2017 Arthritis of knee 11/19/2017 12/23/2017 documented as of this encounter (statuses as of 03/08/2023) [address]-2018 History of Past illness Narrative* Problem Noted Date Diagnosed Date Resolved Date Primary osteoarthritis of left knee 11/24/2017 12/23/2017 Arthritis of knee 11/19/2017 12/23/2017 documented as of this encounter (statuses as of 03/29/2023) [address]-2018 History of Past illness Narrative* Problem Noted Date Diagnosed Date Resolved Date Primary osteoarthritis of left knee 11/24/2017 12/23/2017 Arthritis of knee 11/19/2017 12/23/2017 documented as of this encounter (statuses as of 03/31/2023) [address]-2018 History of Past illness Narrative* Problem Noted Date Diagnosed Date Resolved Date Primary osteoarthritis of left knee 11/24/2017 12/23/2017 Arthritis of knee 11/19/2017 12/23/2017 documented as of this encounter (statuses as of 05/27/2023) [address]-2018 History of Past illness Narrative* Problem Noted Date Diagnosed Date Resolved Date Primary osteoarthritis of left knee 11/24/2017 12/23/2017 Arthritis of knee 11/19/2017 12/23/2017 documented as of this encounter (statuses as of 06/28/2023) [address]-2018 History of Past illness Narrative* Problem Noted Date Diagnosed Date Resolved Date Primary osteoarthritis of left knee 11/24/2017 12/23/2017 Arthritis of knee 11/19/2017 12/23/2017 documented as of this encounter (statuses as of 07/09/2023) [facility]08-08-2018 History of Past illness Narrative* Problem Noted Date Diagnosed Date Resolved Date Primary osteoarthritis of left knee 11/24/2017 12/23/2017 Arthritis of knee 11/19/2017 12/23/2017 documented as of this encounter (statuses as of 07/28/2023) [facility]08-08-2018 History of Past illness Narrative* Problem Noted Date Diagnosed Date Resolved Date Primary osteoarthritis of left knee 11/24/2017 12/23/2017 Arthritis of knee 11/19/2017 12/23/2017 documented as of this encounter (statuses as of 07/29/2023) [facility]08-08-2018 History of Past illness Narrative* Problem Noted Date Diagnosed Date Resolved Date Primary osteoarthritis of left knee 11/24/2017 12/23/2017 Arthritis of knee 11/19/2017 12/23/2017 documented as of this encounter (statuses as of 08/04/2023) [facility]08-08-2018 History of Past illness Narrative* Problem Noted Date Diagnosed Date Resolved Date Primary osteoarthritis of left knee 11/24/2017 12/23/2017 Arthritis of knee 11/19/2017 12/23/2017 documented as of this encounter (statuses as of 08/05/2023) [facility] Diagnosis Cough- Primary Acute non-recurrent pansinusitis [facility] Atrial fibrillation, unspecified type (HCC) [facility] Diagnosis Encounter for Medicare annual wellness [...] and cartilage, unspecified [facility] Diagnosis Hypercalcemia- Primary Hyperkalemia Hyperpotassemia Thrombocytopenia (HCC) Thrombocytopenia, unspecified [facility] Diagnosis Thrombocytopenia (HCC)- Primary Thrombocytopenia, unspecified [facility] Diagnosis Thrombocytopenia, secondary- Primary Other secondary thrombocytopenia documented in this encounter [facility] note* Diagnosis URI, acute- Primary Acute upper respiratory infections of unspecified site documented in this encounter [facility] note* Diagnosis Bronchitis- Primary Bronchitis, not specified as acute or chronic documented in this encounter [facility] note* Diagnosis Atrial fibrillation, unspecified type (HCC) [facility] Diagnosis Hypertension, essential- Primary Unspecified essential hypertension Elevated hemoglobin A1c Other abnormal blood chemistry Paroxysmal atrial fibrillation (HCC) Atrial fibrillation Pseudothrombocytopenia Obesity, Class II, BMI 35-39.9 Obesity, unspecified Medication management Encounter for long-term (current) use of other medications documented in this encounter [facility] note* Diagnosis Essential hypertension Unspecified essential hypertension documented in this encounter [facility] note* Diagnosis Essential hypertension Unspecified essential hypertension [facility] Diagnosis Encounter for Medicare annual wellness exam- Primary Routine [facility] Advance directive discussed with patient Other specified [...] Viral warts, unspecified [facility] Diagnosis 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- Primary documented in this encounter [facility] note* Diagnosis 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- Primary [facility] Diagnosis 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- Primary [facility] Diagnosis 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- Primary documented in this encounter [facility] note* Diagnosis 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- Primary [facility] Diagnosis Protracted URI- Primary Acute upper respiratory infections of unspecified site [facility] Diagnosis Acute cough- Primary Bacterial pneumonia Bacterial pneumonia, unspecified documented in this encounter [facility] note* Diagnosis Subacute cough- Primary Cough Bronchospasm Acute bronchospasm [facility] Diagnosis Acute cough [facility] Diagnosis Acute cough- Primary [facility] Diagnosis Hypertension, essential- Primary Unspecified essential hypertension Elevated hemoglobin A1c Other abnormal blood chemistry Paroxysmal atrial fibrillation (HCC) Atrial fibrillation Pseudothrombocytopenia Obesity, Class II, BMI 35-39.9 Obesity, unspecified Encounter for immunization Need for other specified prophylactic vaccination against single bacterial disease Common wart Other specified viral warts Impacted cerumen of right ear Impacted cerumen [facility] Diagnosis Essential hypertension Unspecified essential hypertension [facility] Diagnosis Essential hypertension Unspecified essential hypertension [facility] Diagnosis Acute cough- Primary Chronic cough Cough [facility] Diagnosis Chronic cough Cough [facility] Diagnosis Chronic cough- Primary Cough [facility] Diagnosis Atrial fibrillation, unspecified type (HCC) Essential hypertension Unspecified essential hypertension [facility] Diagnosis Essential hypertension- Primary Unspecified essential [...] osteoarthrosis, lower leg [facility] Diagnosis Injury of left upper extremity, initial encounter- Primary [facility] Diagnosis Paroxysmal atrial fibrillation (HCC)- Primary Atrial fibrillation [facility]* Diagnosis Acute cough [facility]* Diagnosis Subacute cough Cough [facility] Diagnosis Acute cough [facility] Diagnosis 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 documented in this encounter [facility] note* Diagnosis COVID-19 virus infection- Primary Persistent cough Cough COVID-19 virus infection Persistent cough Cough documented in this encounter [facility] note* Diagnosis COVID-19 virus infection Persistent cough Cough [facility] Diagnosis Cough [facility] Diagnosis Elbow pain, left Pain in joint, upper arm Acute wrist pain, left [facility] Diagnosis Acute cough [facility] Diagnosis Trouble breathing- Primary Other dyspnea and respiratory abnormality Rhonchi Abnormal chest sounds documented in this encounter [facility] note* Diagnosis Generalized weakness- Primary Other malaise and fatigue RSV (acute bronchiolitis due to respiratory syncytial virus) Acute bronchiolitis due to respiratory syncytial virus (RSV) RSV (acute bronchiolitis due to respiratory syncytial virus) Acute bronchiolitis due to respiratory syncytial virus (RSV) documented in this encounter [facility] note* Diagnosis RSV (acute bronchiolitis due to respiratory syncytial virus) Acute bronchiolitis due to respiratory syncytial virus (RSV) documented in this encounter [facility] note* Diagnosis Thrombocytopenia (HCC)- Primary Thrombocytopenia, unspecified Paroxysmal atrial fibrillation (HCC) Atrial fibrillation History of CVA (cerebrovascular accident) Transient ischemic attack (TIA), and cerebral infarction without residual deficits Left hemiparesis (HCC) Hemiplegia, unspecified, affecting unspecified side Dementia without behavioral disturbance (HCC) Dementia, unspecified, without behavioral disturbance Bacterial pneumonia Bacterial pneumonia, unspecified Hyponatremia Hyposmolality and/or hyponatremia documented in this encounter [facility] note* Diagnosis Hypertension, essential- Primary Unspecified essential hypertension Elevated hemoglobin A1c Other abnormal blood chemistry Paroxysmal atrial fibrillation (HCC) Atrial fibrillation History of CVA (cerebrovascular accident) Transient ischemic attack (TIA), and cerebral infarction without residual deficits Left hemiparesis (HCC) Hemiplegia, unspecified, affecting unspecified side Pseudothrombocytopenia Balance disorder Other symptoms involving nervous and musculoskeletal systems [facility] Diagnosis Flu-like symptoms- Primary Other general symptoms Acute upper respiratory infection, unspecified Flu-like symptoms Other general symptoms documented in this encounter [facility] note* Diagnosis Flu-like symptoms Other general symptoms [...] bundle branch block [facility] Diagnosis Rib pain on left side- Primary Chest pain, unspecified Rib pain on left side Chest pain, unspecified [facility] Diagnosis Rib pain on left side Chest pain, unspecified [facility] Diagnosis Open fracture of one rib of left side with routine healing, subsequent encounter- Primary [facility] Diagnosis Open fracture of one rib of left side with routine healing, subsequent encounter [facility] Diagnosis Multiple falls- Primary Personal [...] involving digestive system [facility]* Diagnosis Black tarry stools- Primary Blood in stool Acute cough Rhonchi at left lung base Acute cough Rhonchi at left lung base [facility] Diagnosis Acute cough [facility] Diagnosis Acute cough Rhonchi at left lung base [facility] Diagnosis Multiple falls- Primary Personal history of fall Balance disorder Other symptoms involving nervous and musculoskeletal systems History of CVA (cerebrovascular accident) Transient ischemic attack (TIA), and cerebral infarction without residual deficits General weakness Other malaise and fatigue [facility] Discharge instructionsAdditional Instructions Continue your current medications. Plenty of fluids and rest. Follow-up with your doctor if not improving. Return if worse.[facility] Work Phone: Progress note Author Daniela Downey [facility] Note Date/Time January 11, 2025 11:37am [facility] [address] [place] [address] OFFICE VISIT Date of Service: 01/11/25 MR#: [id number] Acct: [id number] Name: KRYSTYNA KHANNA Rep #: [id number] : 1935 Provider: UBALDO Downey Age/Sex: 89/F [place] [email or web address] Status: Signed Intake Vital Signs 12/07/24 07:46 [...] HAVE A BM Chief Complaint: Establish Care Broke Handler Required: No Accompanied by: Son Is patient [...] is significant for CVA, atrial fibrillation (Eliquis), [place], CHF, dementia, chronic left sided weakness with [...] PMH is significant for CVA,atrial fibrillation (Eliquis), [place], CHF, dementia, chronic left sided weakness with [...] applicable) CC: Dr. Rufino Erickson MD ~ [facility] Work Phone: ReCHOBOLABS for referral (narrative)* Outpatient Procedure (Routine) - Authorized Specialty Diagnoses / Procedures Referred By Gema ly Referred To Contact [facility] Diagnoses Chronic cough Procedures SPIROMETRY - BASELINE AND POST DILATOR BRNCDILAT RSPSE SPMTRY PRE&POST-BRNCDILAT ADMN Sarah Yang PA-C [address] [place] [address] [facility] [place] [address] [place] [address] Referral ID Status Reason Start Date Expiration Date Visits Requested Visits Authorized [id number] Authorized Auto-Generat ed Referral 07/27/2023 08/25/2024 1 1 [facility] for referral (narrative)* Diagnostic Procedure Only (Urgent) - Closed Specialty Diagnoses / Procedures Referred By Gema ly Referred To Contact XR IMAGING Diagnoses Injury of left upper extremity, initial encounter Procedures XR WRIST GENERAL 3V PA/LAT/OBL LEFT RADEX WRIST COMPLETE MINIMUM 3 VIEWS Ulices Moya APRN.DIVISION COMMANDER [address] [place] [address] [place] [address] Referral ID Status Reason Start Date Expiration Date V isits Requested Visits Authorized [id number] Closed Auto-Generate d Referral 12/03/2023 01/01/2025 1 1 * Diagnostic Procedure Only (Urgent) - Closed Specialty Diagnoses / Procedures Referred By Contac t Referred To Contact XR IMAGING Diagnoses Injury of left upper extremity, initial encounter Procedures XR ELBOW SPECIAL VIEWS AP/LAT/OTHER LEFT RADEX ELBOW COMPLETE MINIMUM 3 VIEWS Ulices Moya APRN.CNP [address] [place] [address] [place] [address] Referral ID Status Reason Start Date Expiration Date V isits Requested Visits Authorized [id number] Closed Auto-Generate d Referral 12/03/2023 01/01/2025 1 1 [facility] for referral (narrative)* Diagnostic Procedure Only (Routine) - Closed Specialty Diagnoses / Procedures Referred By Contac t Referred To Contact XR IMAGING Diagnoses 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 Procedures XR LUMBAR GENERAL 3V AP/LAT/L5-S1 RADEX SPINE LUMBOSACRAL 2/3 VIEWS Sarah Yang PA-C [address] [place] [address] [place] [address] Referral ID Status Reason Start Date Expiration Date V isits Requested Visits Authorized [id number] Closed Auto-Generate d Referral 11/24/2022 12/24/2023 1 1 [facility] for referral (narrative)* Diagnostic Procedure Only (Urgent) - Closed Specialty Diagnoses / Procedures Referred By Contac t Referred To Contact XR IMAGING Diagnoses Acute wrist pain, left Procedures XR WRIST GENERAL 3V PA/LAT/OBL LT X-RAY WRIST COMPLET MIN 3 VIEWS Shady Smiley MD [address] [place] [address] [place] [address] Referral ID Status Reason Start Date Expiration Date V isits Requested Visits Authorized [id number] Closed Auto-Generate d Referral 11/21/2020 12/21/2021 1 1 * Diagnostic Procedure Only (Urgent) - Closed Specialty Diagnoses / Procedures Referred By Contac t Referred To Contact XR IMAGING Diagnoses Elbow pain, left Procedures XR ELBOW SPECIAL VIEWS AP/LAT/OTHER LT X-RAY ELBOW MINIMUM 3 VIEWS Shady Smiley MD [address] [phone] [place] [address] Referral ID Status Reason Start Date Expiration Date V isits Requested Visits Authorized [id number] Closed Auto-Generate d Referral 11/21/2020 12/21/2021 1 1 [facility] for referral (narrative)No reason for referral information availableWTriHealth [facility] Work Phone: Reason for visit Narrative* Diagnostic Procedure Only (Urgent) - Closed Specialty Diagnoses / Procedures Referred By Contac t Referred To Contact XR IMAGING Diagnoses Injury of left upper extremity, initial encounter Procedures XR WRIST GENERAL 3V PA/LAT/OBL LEFT RADEX WRIST COMPLETE MINIMUM 3 VIEWS Ulices Moya APRN.DIVISION COMMANDER [address] [place] [address] [place] [address] Referral ID Status Reason Start Date Expiration Date V isits Requested Visits Authorized [id number] Closed Auto-Generate d Referral 12/03/2023 01/01/2025 1 1 [facility] for visit Narrative* Diagnostic Procedure Only (Routine) - Closed Specialty Diagnoses / Procedures Referred By Contac t Referred To Contact XR IMAGING Diagnoses 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 Procedures XR LUMBAR GENERAL 3V AP/LAT/L5-S1 RADEX SPINE LUMBOSACRAL 2/3 VIEWS Sarah Yang PA-C [address] [place] [address] [place] [address] Referral ID Status Reason Start Date Expiration Date V isits Requested Visits Authorized [id number] Closed Auto-Generate d Referral 11/24/2022 12/24/2023 1 1 [facility] for visit Narrative* Diagnostic Procedure Only (Urgent) - Closed Specialty Diagnoses / Procedures Referred By Contac t Referred To Contact XR IMAGING Diagnoses Acute wrist pain, left Procedures XR WRIST GENERAL 3V PA/LAT/OBL LT X-RAY WRIST COMPLET MIN 3 VIEWS Shady Smiley MD [address] [place] [phone] Xr Imaging [id number] Referral ID Status Reason Start Date Expiration Date V isits Requested Visits Authorized [id number] Closed Auto-Generate d Referral 11/21/2020 12/21/2021 1 1 [facility] for visit Narrative* Diagnostic Procedure Only (Urgent) - Closed Specialty Diagnoses / Procedures Referred By Contac t Referred To Contact XR IMAGING Diagnoses Rib pain on left side Procedures XR RIBS/CHEST 3V AP RIB/OBLS/CXR LEFT RADEX RIBS UNI W/POSTEROANT CH MINIMUM 3 VIEWS Cruz James, CERTIFIED BENCH JEWELER TECHNICIAN.DIVISION COMMANDER [id number] [address] Phone: tel: fax: XR IMAGING [id number] Referral ID Status Reason Start Date Expiration Date V isits Requested Visits Authorized [id number] Closed Auto-Generate d Referral 10/07/2024 11/06/2025 1 1 [facility] for visit Narrative* Diagnostic Procedure Only (Routine) - Closed Specialty Diagnoses / Procedures Referred By Contac t Referred To Contact XR IMAGING Diagnoses Open fracture of one rib of left side with routine healing, subsequent encounter Procedures XR RIBS 2V AP/OBL LEFT RADEX RIBS UNILATERAL 2 VIEWS Lulu Staton, CERTIFIED BENCH JEWELER TECHNICIAN.DIVISION COMMANDER [address] [place] [address] Phone: tel: fax: [facility] [address] Referral ID Status Reason Start Date Expiration Date V isits Requested Visits Authorized [id number] Closed Auto-Generate d Referral 11/02/2024 11/18/2025 1 1 [facility] Summary Purpose Family History Relationship Condition Age at Onset Recorded Date/T jacob mother Cardiac disease Unknown father Cardiac disease Unknown sister Cardiac disease Unknown Malignant neoplasm of breast Unknown aunt Malignant neoplasm of breast Unknown Diabetes mellitus Unknown grandmother Malignant neoplasm Unknown Advance Directives Documents on File Type Date Recorded Patient Injection Specialist Expl anation Advance Directive(s) 01/22/2020 5:27 PM Advance Directive(s) 11/19/2017 11:55 AM Advance Directive(s) 11/19/2017 1:49 PM Advance Directive(s) 06/01/2017 2:35 PM Documents on File Type Date Recorded Patient Injection Specialist Expl anation Advance Directive(s) 06/06/2024 12:38 PM Documents on File Type Date Recorded Patient Injection Specialist Expl anation Advance Directive(s) 06/06/2024 12:38 PM Advance Directive Response Recorded Date/ Time Do you have a Healthcare Power of [place] Management Professor? Yes October 23, 2024 6:02pm Reason for Referral Specialty Diagnoses / Procedures Referred By Contac t Referred To Contact Hematology Diagnoses Thrombocytopenia (HCC) Procedures CONSULT TO HEMATOLOGY OFFICE/OUTPATIENT [facility] MDM 60-74 MINUTES Sarah Yang PA-C [address] [place] [address] Referral ID Status Reason Start Date Expiration Date Visits Requested Visits Authorized [id number] Authorized PCP Requested Referral 11/28/2021 11/28/2022 1 1 Specialty Diagnoses / Procedures Referred By Contac t Referred To Contact [facility] Diagnoses 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 Procedures CONSULT TO PHYSICAL THERAPY PHYSICAL THERAPY EVALUATION HIGH COMPLEX 45 MINS Sarah Yang PA-C [address] [place] [address] [facility] [address] [place] [address] Referral ID Status Reason Start Date Expiration Date Visits Requested Visits Authorized [id number] Authorized PCP Requested Referral Auto-Generate d Referral 11/24/2022 11/24/2023 99 99 Specialty Diagnoses / Procedures Referred By Contac t Referred To Contact XR IMAGING Diagnoses 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 Procedures XR LUMBAR GENERAL 3V AP/LAT/L5-S1 RADEX SPINE LUMBOSACRAL 2/3 VIEWS Sarah Yang PA-C [address] [place] [address] Xr Imaging Referral ID Status Reason Start Date Expiration Date V isits Requested Visits Authorized [id number] Closed Auto-Generate d Referral 11/24/2022 12/24/2023 1 1 Specialty Diagnoses / Procedures Referred By Contmarcia t Referred To Contact Diagnoses Generalized weakness RSV (acute bronchiolitis due to respiratory syncytial virus) Procedures CONSULT TO [facility] Lulu Staton APRN.DIVISION [employer]ER [address] [place] [address] [facility] [address] [place] [id number] Referral ID Status Reason Start Date Expiration Date Visits Requested Visits Authorized [id number] New Request PCP Requested Referral 4 07/16/2024 1 1 Health Concerns Infection Onset Date Last Indicated Resolved Time COVID-19 Rule-Out 01/31/2022 01/31/2022 Chief Complaint and Reason for Visit Chief Complaint Admit Date S/P [facility] 05/03August 24, 2024 10:32a m weakness October 23, 2024 5:48p m Reason for Visit Admit Date Right bundle branch block (RBBB) August 10:32am Essential hypertension August 24, 2024 10: 32am Hyperlipidemia August 24, 2024 10:32a m Paroxysmal atrial fibrillation August 24, 2024 10:32am Chief Complaint Admit Date S/P [facility] 05/03August 24, 2024 10:32a m weakness October 23, 2024 5:48p m S/P [facility] 10/23October 26, 2024 9:29 am Reason for [...] weakness October 23, 2024 5:48p m S/P [facility] 10/23October 26, 2024 9:29 am 30 DAY [...] section and content) DATE CREATED AUTHOR 10/07/2017 [facility] DATE CREATED AUTHOR AUTHOR'S ORGANIZ ATION 10/07/2017 [facility] DATE CREATED AUTHOR AUTHOR'S ORGANIZ ATION 10/08/2017 [facility] ([place]) DATE CREATED AUTHOR AUTHOR'S ORGANIZ ATION 07/27/2020 [facility] DATE CREATED AUTHOR AUTHOR'S ORGANIZ ATION 01/12/2025 [facility] DATE CREATED AUTHOR AUTHOR'S ORGANIZ ATION 01/12/2025 [facility] Comments (unrecognize d section and content) In the event this informatio n is protected by the Federal Confidentiality of Alcohol and Drug Abuse Patient Records regulations: The Federal rules restrict any use of the information to criminally investigate or prosecute any alcohol or drug abuse patient.[facility] the event this information is protected by the Federal Confidentiality of Alcohol and Drug Abuse Patient Records regulations: The Federal rules restrict any use of the information to criminally investigate or prosecute any alcohol or drug abuse patient.[facility] HospitalIn the event this information is protected by the Federal Confidentiality of Alcohol and Drug Abuse Patient Records regulations: The Federal rules restrict any use of the information to criminally investigate or prosecute any alcohol or drug abuse patient.[facility] HospitalIn the event this information is protected by the Federal Confidentiality of Alcohol and Drug Abuse Patient Records regulations: The Federal rules restrict any use of the information to criminally investigate or prosecute any alcohol or drug abuse patient.[facility] HospitalIn the event this information is protected by the Federal Confidentiality of Alcohol and Drug Abuse Patient Records regulations: The Federal rules restrict any use of the information to criminally investigate or prosecute any alcohol or drug abuse patient.[facility] HospitalIn the event this information is protected by the Federal Confidentiality of Alcohol and Drug Abuse Patient Records regulations: The Federal rules restrict any use of the information to criminally investigate or prosecute any alcohol or drug abuse patient.[facility] HospitalIn the event this information is protected by the Federal Confidentiality of Alcohol and Drug Abuse Patient Records regulations: The Federal rules restrict any use of the information to criminally investigate or prosecute any alcohol or drug abuse patient.[facility] HospitalIn the event this information is protected by the Federal Confidentiality of Alcohol and Drug Abuse Patient Records regulations: The Federal rules restrict any use of the information to criminally investigate or prosecute any alcohol or drug abuse patient.[facility] HospitalIn the event this information is protected by the Federal Confidentiality of Alcohol and Drug Abuse Patient Records regulations: The Federal rules restrict any use of the information to criminally investigate or prosecute any alcohol or drug abuse patient.[facility] HospitalIn the event this information is protected by the Federal Confidentiality of Alcohol and Drug Abuse Patient Records regulations: The Federal rules restrict any use of the information to criminally investigate or prosecute any alcohol or drug abuse patient.[facility] HospitalIn the event this information is protected by the Federal Confidentiality of Alcohol and Drug Abuse Patient Records regulations: The Federal rules restrict any use of the information to criminally investigate or prosecute any alcohol or drug abuse patient.[facility] HospitalIn the event this information is protected by the Federal Confidentiality of Alcohol and Drug Abuse Patient Records regulations: The Federal rules restrict any use of the information to criminally investigate or prosecute any alcohol or drug abuse patient.[facility] HospitalIn the event this information is protected by the Federal Confidentiality of Alcohol and Drug Abuse Patient Records regulations: The Federal rules restrict any use of the information to criminally investigate or prosecute any alcohol or drug abuse patient.[facility] HospitalIn the event this information is protected by the Federal Confidentiality of Alcohol and Drug Abuse Patient Records regulations: The Federal rules restrict any use of the information to criminally investigate or prosecute any alcohol or drug abuse patient.[facility] HospitalIn the event this information is protected by the Federal Confidentiality of Alcohol and Drug Abuse Patient Records regulations: The Federal rules restrict any use of the information to criminally investigate or prosecute any alcohol or drug abuse patient.[facility] HospitalIn the event this information is protected by the Federal Confidentiality of Alcohol and Drug Abuse Patient Records regulations: The Federal rules restrict any use of the information to criminally investigate or prosecute any alcohol or drug abuse patient.[facility] HospitalIn the event this information is protected by the Federal Confidentiality of Alcohol and Drug Abuse Patient Records regulations: The Federal rules restrict any use of the information to criminally investigate or prosecute any alcohol or drug abuse patient.[facility] HospitalIn the event this information is protected by the Federal Confidentiality of Alcohol and Drug Abuse Patient Records regulations: The Federal rules restrict any use of the information to criminally investigate or prosecute any alcohol or drug abuse patient.[facility] HospitalIn the event this information is protected by the Federal Confidentiality of Alcohol and Drug Abuse Patient Records regulations: The Federal rules restrict any use of the information to criminally investigate or prosecute any alcohol or drug abuse patient.[facility] HospitalIn the event this information is protected by the Federal Confidentiality of Alcohol and Drug Abuse Patient Records regulations: The Federal rules restrict any use of the information to criminally investigate or prosecute any alcohol or drug abuse patient.[facility] HospitalIn the event this information is protected by the Federal Confidentiality of Alcohol and Drug Abuse Patient Records regulations: The Federal rules restrict any use of the information to criminally investigate or prosecute any alcohol or drug abuse patient.[facility] HospitalIn the event this information is protected by the Federal Confidentiality of Alcohol and Drug Abuse Patient Records regulations: The Federal rules restrict any use of the information to criminally investigate or prosecute any alcohol or drug abuse patient.[facility] HospitalIn the event this information is protected by the Federal Confidentiality of Alcohol and Drug Abuse Patient Records regulations: The Federal rules restrict any use of the information to criminally investigate or prosecute any alcohol or drug abuse patient.[facility] HospitalIn the event this information is protected by the Federal Confidentiality of Alcohol and Drug Abuse Patient Records regulations: The Federal rules restrict any use of the information to criminally investigate or prosecute any alcohol or drug abuse patient.[facility] HospitalIn the event this information is protected by the Federal Confidentiality of Alcohol and Drug Abuse Patient Records regulations: The Federal rules restrict any use of the information to criminally investigate or prosecute any alcohol or drug abuse patient.[facility] HospitalIn the event this information is protected by the Federal Confidentiality of Alcohol and Drug Abuse Patient Records regulations: The Federal rules restrict any use of the information to criminally investigate or prosecute any alcohol or drug abuse patient.[facility] HospitalIn the event this information is protected by the Federal Confidentiality of Alcohol and Drug Abuse Patient Records regulations: The Federal rules restrict any use of the information to criminally investigate or prosecute any alcohol or drug abuse patient.[facility] HospitalIn the event this information is protected by the Federal Confidentiality of Alcohol and Drug Abuse Patient Records regulations: The Federal rules restrict any use of the information to criminally investigate or prosecute any alcohol or drug abuse patient.[facility] HospitalIn the event this information is protected by the Federal Confidentiality of Alcohol and Drug Abuse Patient Records regulations: The Federal rules restrict any use of the information to criminally investigate or prosecute any alcohol or drug abuse patient.[facility] HospitalIn the event this information is protected by the Federal Confidentiality of Alcohol and Drug Abuse Patient Records regulations: The Federal rules restrict any use of the information to criminally investigate or prosecute any alcohol or drug abuse patient.[facility] HospitalIn the event this information is protected by the Federal Confidentiality of Alcohol and Drug Abuse Patient Records regulations: The Federal rules restrict any use of the information to criminally investigate or prosecute any alcohol or drug abuse patient.[facility] HospitalIn the event this information is protected by the Federal Confidentiality of Alcohol and Drug Abuse Patient Records regulations: The Federal rules restrict any use of the information to criminally investigate or prosecute any alcohol or drug abuse patient.[facility] HospitalIn the event this information is protected by the Federal Confidentiality of Alcohol and Drug Abuse Patient Records regulations: The Federal rules restrict any use of the information to criminally investigate or prosecute any alcohol or drug abuse patient.[facility] HospitalIn the event this information is protected by the Federal Confidentiality of Alcohol and Drug Abuse Patient Records regulations: The Federal rules restrict any use of the information to criminally investigate or prosecute any alcohol or drug abuse patient.[facility] HospitalIn the event this information is protected by the Federal Confidentiality of Alcohol and Drug Abuse Patient Records regulations: The Federal rules restrict any use of the information to criminally investigate or prosecute any alcohol or drug abuse patient.[facility] HospitalIn the event this information is protected by the Federal Confidentiality of Alcohol and Drug Abuse Patient Records regulations: The Federal rules restrict any use of the information to criminally investigate or prosecute any alcohol or drug abuse patient.[facility] HospitalIn the event this information is protected by the Federal Confidentiality of Alcohol and Drug Abuse Patient Records regulations: The Federal rules restrict any use of the information to criminally investigate or prosecute any alcohol or drug abuse patient.[facility] HospitalIn the event this information is protected by the Federal Confidentiality of Alcohol and Drug Abuse Patient Records regulations: The Federal rules restrict any use of the information to criminally investigate or prosecute any alcohol or drug abuse patient.[facility] HospitalIn the event this information is protected by the Federal Confidentiality of Alcohol and Drug Abuse Patient Records regulations: The Federal rules restrict any use of the information to criminally investigate or prosecute any alcohol or drug abuse patient.[facility] HospitalIn the event this information is protected by the Federal Confidentiality of Alcohol and Drug Abuse Patient Records regulations: The Federal rules restrict any use of the information to criminally investigate or prosecute any alcohol or drug abuse patient.[facility] HospitalIn the event this information is protected by the Federal Confidentiality of Alcohol and Drug Abuse Patient Records regulations: The Federal rules restrict any use of the information to criminally investigate or prosecute any alcohol or drug abuse patient.[facility] HospitalIn the event this information is protected by the Federal Confidentiality of Alcohol and Drug Abuse Patient Records regulations: The Federal rules restrict any use of the information to criminally investigate or prosecute any alcohol or drug abuse patient.[facility] HospitalIn the event this information is protected by the Federal Confidentiality of Alcohol and Drug Abuse Patient Records regulations: The Federal rules restrict any use of the information to criminally investigate or prosecute any alcohol or drug abuse patient.[facility] HospitalIn the event this information is protected by the Federal Confidentiality of Alcohol and Drug Abuse Patient Records regulations: The Federal rules restrict any use of the information to criminally investigate or prosecute any alcohol or drug abuse patient.[facility] HospitalIn the event this information is protected by the Federal Confidentiality of Alcohol and Drug Abuse Patient Records regulations: The Federal rules restrict any use of the information to criminally investigate or prosecute any alcohol or drug abuse patient.[facility] HospitalIn the event this information is protected by the Federal Confidentiality of Alcohol and Drug Abuse Patient Records regulations: The Federal rules restrict any use of the information to criminally investigate or prosecute any alcohol or drug abuse patient.[facility] HospitalIn the event this information is protected by the Federal Confidentiality of Alcohol and Drug Abuse Patient Records regulations: The Federal rules restrict any use of the information to criminally investigate or prosecute any alcohol or drug abuse patient.[facility] HospitalIn the event this information is protected by the Federal Confidentiality of Alcohol and Drug Abuse Patient Records regulations: The Federal rules restrict any use of the information to criminally investigate or prosecute any alcohol or drug abuse patient.[facility] HospitalIn the event this information is protected by the Federal Confidentiality of Alcohol and Drug Abuse Patient Records regulations: The Federal rules restrict any use of the information to criminally investigate or prosecute any alcohol or drug abuse patient.[facility] HospitalIn the event this information is protected by the Federal Confidentiality of Alcohol and Drug Abuse Patient Records regulations: The Federal rules restrict any use of the information to criminally investigate or prosecute any alcohol or drug abuse patient.[facility] HospitalIn the event this information is protected by the Federal Confidentiality of Alcohol and Drug Abuse Patient Records regulations: The Federal rules restrict any use of the information to criminally investigate or prosecute any alcohol or drug abuse patient.[facility] HospitalIn the event this information is protected by the Federal Confidentiality of Alcohol and Drug Abuse Patient Records regulations: The Federal rules restrict any use of the information to criminally investigate or prosecute any alcohol or drug abuse patient.[facility] HospitalIn the event this information is protected by the Federal Confidentiality of Alcohol and Drug Abuse Patient Records regulations: The Federal rules restrict any use of the information to criminally investigate or prosecute any alcohol or drug abuse patient.[facility] HospitalIn the event this information is protected by the Federal Confidentiality of Alcohol and Drug Abuse Patient Records regulations: The Federal rules restrict any use of the information to criminally investigate or prosecute any alcohol or drug abuse patient.[facility] HospitalIn the event this information is protected by the Federal Confidentiality of Alcohol and Drug Abuse Patient Records regulations: The Federal rules restrict any use of the information to criminally investigate or prosecute any alcohol or drug abuse patient.[facility] HospitalIn the event this information is protected by the Federal Confidentiality of Alcohol and Drug Abuse Patient Records regulations: The Federal rules restrict any use of the information to criminally investigate or prosecute any alcohol or drug abuse patient.[facility] HospitalIn the event this information is protected by the Federal Confidentiality of Alcohol and Drug Abuse Patient Records regulations: The Federal rules restrict any use of the information to criminally investigate or prosecute any alcohol or drug abuse patient.[facility] HospitalIn the event this information is protected by the Federal Confidentiality of Alcohol and Drug Abuse Patient Records regulations: The Federal rules restrict any use of the information to criminally investigate or prosecute any alcohol or drug abuse patient.[facility] HospitalIn the event this information is protected by the Federal Confidentiality of Alcohol and Drug Abuse Patient Records regulations: The Federal rules restrict any use of the information to criminally investigate or prosecute any alcohol or drug abuse patient.[facility] HospitalIn the event this information is protected by the Federal Confidentiality of Alcohol and Drug Abuse Patient Records regulations: The Federal rules restrict any use of the information to criminally investigate or prosecute any alcohol or drug abuse patient.[facility] HospitalIn the event this information is protected by the Federal Confidentiality of Alcohol and Drug Abuse Patient Records regulations: The Federal rules restrict any use of the information to criminally investigate or prosecute any alcohol or drug abuse patient.[facility] HospitalIn the event this information is protected by the Federal Confidentiality of Alcohol and Drug Abuse Patient Records regulations: The Federal rules restrict any use of the information to criminally investigate or prosecute any alcohol or drug abuse patient.[facility] HospitalIn the event this information is protected by the Federal Confidentiality of Alcohol and Drug Abuse Patient Records regulations: The Federal rules restrict any use of the information to criminally investigate or prosecute any alcohol or drug abuse patient.[facility] HospitalIn the event this information is protected by the Federal Confidentiality of Alcohol and Drug Abuse Patient Records regulations: The Federal rules restrict any use of the information to criminally investigate or prosecute any alcohol or drug abuse patient.[facility] HospitalIn the event this information is protected by the Federal Confidentiality of Alcohol and Drug Abuse Patient Records regulations: The Federal rules restrict any use of the information to criminally investigate or prosecute any alcohol or drug abuse patient.[facility] HospitalIn the event this information is protected by the Federal Confidentiality of Alcohol and Drug Abuse Patient Records regulations: The Federal rules restrict any use of the information to criminally investigate or prosecute any alcohol or drug abuse patient.[facility] HospitalIn the event this information is protected by the Federal Confidentiality of Alcohol and Drug Abuse Patient Records regulations: The Federal rules restrict any use of the information to criminally investigate or prosecute any alcohol or drug abuse patient.[facility] HospitalIn the event this information is protected by the Federal Confidentiality of Alcohol and Drug Abuse Patient Records regulations: The Federal rules restrict any use of the information to criminally investigate or prosecute any alcohol or drug abuse patient.[facility] HospitalIn the event this information is protected by the Federal Confidentiality of Alcohol and Drug Abuse Patient Records regulations: The Federal rules restrict any use of the information to criminally investigate or prosecute any alcohol or drug abuse patient.[facility] HospitalIn the event this information is protected by the Federal Confidentiality of Alcohol and Drug Abuse Patient Records regulations: The Federal rules restrict any use of the information to criminally investigate or prosecute any alcohol or drug abuse patient.[facility] HospitalIn the event this information is protected by the Federal Confidentiality of Alcohol and Drug Abuse Patient Records regulations: The Federal rules restrict any use of the information to criminally investigate or prosecute any alcohol or drug abuse patient.[facility] HospitalIn the event this information is protected by the Federal Confidentiality of Alcohol and Drug Abuse Patient Records regulations: The Federal rules restrict any use of the information to criminally investigate or prosecute any alcohol or drug abuse patient.[facility] HospitalIn the event this information is protected by the Federal Confidentiality of Alcohol and Drug Abuse Patient Records regulations: The Federal rules restrict any use of the information to criminally investigate or prosecute any alcohol or drug abuse patient.[facility] HospitalIn the event this information is protected by the Federal Confidentiality of Alcohol and Drug Abuse Patient Records regulations: The Federal rules restrict any use of the information to criminally investigate or prosecute any alcohol or drug abuse patient.[facility] HospitalIn the event this information is protected by the Federal Confidentiality of Alcohol and Drug Abuse Patient Records regulations: The Federal rules restrict any use of the information to criminally investigate or prosecute any alcohol or drug abuse patient.[facility] HospitalIn the event this information is protected by the Federal Confidentiality of Alcohol and Drug Abuse Patient Records regulations: The Federal rules restrict any use of the information to criminally investigate or prosecute any alcohol or drug abuse patient.[facility] HospitalIn the event this information is protected by the Federal Confidentiality of Alcohol and Drug Abuse Patient Records regulations: The Federal rules restrict any use of the information to criminally investigate or prosecute any alcohol or drug abuse patient.[facility] HospitalIn the event this information is protected by the Federal Confidentiality of Alcohol and Drug Abuse Patient Records regulations: The Federal rules restrict any use of the information to criminally investigate or prosecute any alcohol or drug abuse patient.[facility] HospitalIn the event this information is protected by the Federal Confidentiality of Alcohol and Drug Abuse Patient Records regulations: The Federal rules restrict any use of the information to criminally investigate or prosecute any alcohol or drug abuse patient.[facility] HospitalIn the event this information is protected by the Federal Confidentiality of Alcohol and Drug Abuse Patient Records regulations: The Federal rules restrict any use of the information to criminally investigate or prosecute any alcohol or drug abuse patient.[facility] HospitalIn the event this information is protected by the Federal Confidentiality of Alcohol and Drug Abuse Patient Records regulations: The Federal rules restrict any use of the information to criminally investigate or prosecute any alcohol or drug abuse patient.[facility] HospitalIn the event this information is protected by the Federal Confidentiality of Alcohol and Drug Abuse Patient Records regulations: The Federal rules restrict any use of the information to criminally investigate or prosecute any alcohol or drug abuse patient.[facility] HospitalIn the event this information is protected by the Federal Confidentiality of Alcohol and Drug Abuse Patient Records regulations: The Federal rules restrict any use of the information to criminally investigate or prosecute any alcohol or drug abuse patient.[facility] HospitalIn the event this information is protected by the Federal Confidentiality of Alcohol and Drug Abuse Patient Records regulations: The Federal rules restrict any use of the information to criminally investigate or prosecute any alcohol or drug abuse patient.[facility] HospitalIn the event this information is protected by the Federal Confidentiality of Alcohol and Drug Abuse Patient Records regulations: The Federal rules restrict any use of the information to criminally investigate or prosecute any alcohol or drug abuse patient.[facility] HospitalIn the event this information is protected by the Federal Confidentiality of Alcohol and Drug Abuse Patient Records regulations: The Federal rules restrict any use of the information to criminally investigate or prosecute any alcohol or drug abuse patient.[facility] HospitalIn the event this information is protected by the Federal Confidentiality of Alcohol and Drug Abuse Patient Records regulations: The Federal rules restrict any use of the information to criminally investigate or prosecute any alcohol or drug abuse patient.[facility] HospitalIn the event this information is protected by the Federal Confidentiality of Alcohol and Drug Abuse Patient Records regulations: The Federal rules restrict any use of the information to criminally investigate or prosecute any alcohol or drug abuse patient.[facility] HospitalIn the event this information is protected by the Federal Confidentiality of Alcohol and Drug Abuse Patient Records regulations: The Federal rules restrict any use of the information to criminally investigate or prosecute any alcohol or drug abuse patient.[facility] HospitalIn the event this information is protected by the Federal Confidentiality of Alcohol and Drug Abuse Patient Records regulations: The Federal rules restrict any use of the information to criminally investigate or prosecute any alcohol or drug abuse patient.[facility] HospitalIn the event this information is protected by the Federal Confidentiality of Alcohol and Drug Abuse Patient Records regulations: The Federal rules restrict any use of the information to criminally investigate or prosecute any alcohol or drug abuse patient.[facility] HospitalIn the event this information is protected by the Federal Confidentiality of Alcohol and Drug Abuse Patient Records regulations: The Federal rules restrict any use of the information to criminally investigate or prosecute any alcohol or drug abuse patient.[facility] HospitalIn the event this information is protected by the Federal Confidentiality of Alcohol and Drug Abuse Patient Records regulations: The Federal rules restrict any use of the information to criminally investigate or prosecute any alcohol or drug abuse patient.[facility] HospitalIn the event this information is protected by the Federal Confidentiality of Alcohol and Drug Abuse Patient Records regulations: The Federal rules restrict any use of the information to criminally investigate or prosecute any alcohol or drug abuse patient.[facility] HospitalIn the event this information is protected by the Federal Confidentiality of Alcohol and Drug Abuse Patient Records regulations: The Federal rules restrict any use of the information to criminally investigate or prosecute any alcohol or drug abuse patient.[facility] HospitalIn the event this information is protected by the Federal Confidentiality of Alcohol and Drug Abuse Patient Records regulations: The Federal rules restrict any use of the information to criminally investigate or prosecute any alcohol or drug abuse patient.[facility] HospitalIn the event this information is protected by the Federal Confidentiality of Alcohol and Drug Abuse Patient Records regulations: The Federal rules restrict any use of the information to criminally investigate or prosecute any alcohol or drug abuse patient.[facility] HospitalIn the event this information is protected by the Federal Confidentiality of Alcohol and Drug Abuse Patient Records regulations: The Federal rules restrict any use of the information to criminally investigate or prosecute any alcohol or drug abuse patient.[facility] Reason for Visit (unrecogniz ed section and content) Reason Comments PT Eval Specialty Diagnoses / Procedures Referred By Contac t Referred To Contact [facility] Diagnoses Multiple falls Balance disorder History of CVA (cerebrovascular accident) General weakness Procedures PHYSICAL THERAPY EVALUATION HIGH COMPLEX 45 MINS Rufino Erickson MD [address] [place] [address] Phone: tel: fax: [facility] [address] [place] [address] Referral ID Status Reason Start Date Expiration Date Visits Requested Visits Authorized [id number] Authorized PCP Requested Referral Auto-Generate d Referral 12/11/2024 12/11/2025 99 99 Reason Comments PT Discharge Specialty Diagnoses / Procedures Referred By Contac t Referred To Contact [facility] Diagnoses 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 Procedures CONSULT TO PHYSICAL THERAPY PHYSICAL THERAPY EVALUATION HIGH COMPLEX 45 MINS Sarah Yang PA-C [address] [place] [address] [facility] [address] [place] [address] Referral ID Status Reason Start Date Expiration Date Visits Requested Visits Authorized [id number] Authorized PCP Requested Referral Auto-Generate d Referral [...] HIGH MDM 60-74 MINUTES Sarah Yang PA-C [address] [place] [address] Referral ID Status Reason Start Date Expiration Date V isits Requested Visits Authorized [id number] Closed PCP Requested Referral 11/28/2021 11/28/2022 1 [...] RSPSE SPMTRY PRE&POST-BRNCDILAT ADMN Sarah Yang PA-C [address] [place] [address] [facility] [address] [place] [address] Referral ID Status Reason Start Date Expiration Date V isits Requested Visits Authorized [id number] Closed Auto-Generate d Referral 07/27/2023 08/25/2024 1 1 Reason Comments Follow Up Cough Has an occasional pr oductive cough Reason Onset Date Comments Refill Request 10/11/2023 Reason Comments Patient Update Reason Comments ER F/U [facility] ER Reason Comments Wrist/forearm Injury L wrist [...] Neurology Cons ult Reason Comments ER F/U [facility] Reason Comments D/C Summary Events Transfer to Extended Care Summary Reason Comments Hospital F/U Reason Comments Hospital Follow Up [facility] Reason Comments Follow Up Reason Onset Date Comments Results 07/06/2024 Reason Comments Headache HU, ST and bodyaches x 3 days Reason Comments Pre-Op Exam Reason Comments Forms Pre-Op Reason Comments Fall Reason Comments left rib pain X 9 days after a fal l Reason Comments Follow Up Left rib pain Reason Comments ext document [facility] ER report Reason Comments Fall frequent Urinary Frequency Reason Comments Urinary Frequency Fall Reason Onset Date Comments Results 12/14/2024 Reason Comments Rectal Bleeding Reason Comments Cough X 1 week black stools Reason Onset Date Comments Results 12/29/2024 Reason Comments Forms [facility] (unrecognized sec tion and content) Ham Curer Relationship Specialty Start Date End Date Rufino Erickson MD [address] [place] [address] PCP - General Family Practice 09/25/20 Ham Curer Relationship Specialty Start Date End Date Rufino Erickson MD [address] [place] [address] PCP - General Family Practice 09/25/20 Ham Curer Relationship Specialty Start Date End Date Rufino Erickson MD [address] [place] [address] PCP - General Family Practice 09/25/20 Ham Curer Relationship Specialty Start Date End Date Rufino Erickson MD [address] [place] [address] PCP - General Family Practice 09/25/20 Ham Curer Relationship Specialty Start Date End Date Rufino Erickson MD [address] [place] [address] PCP - General Family Practice 09/25/20 Ham Curer Relationship Specialty Start Date End Date Rufino Erickson MD [address] [place] [address] PCP - General Family Medicine 09/25/20 Ham Curer Relationship Specialty Start Date End Date Rufino Erickson MD [address] [place] [address] PCP - General Family Medicine 09/25/20 Ham Curer Relationship Specialty Start Date End Date Rufino Erickson MD [address] [place] [address] PCP - General Family Medicine 09/25/20 Ham Curer Relationship Specialty Start Date End Date Rufino Erickson MD [address] [place] [address] PCP - General Family Medicine 09/25/20 Ham Curer Relationship Specialty Start Date End Date Rufino Erickson MD [address] [place] [address] PCP - General Family Medicine 09/25/20 Ham Curer Relationship Specialty Start Date End Date Rufino Erickson MD [address] [place] [address] PCP - General Family Medicine 09/25/20 Ham Curer Relationship Specialty Start Date End Date Rufino Erickson MD [address] [place] [address] PCP - General Family Medicine 09/25/20 Ham Curer Relationship Specialty Start Date End Date Rufino Erickson MD [address] [place] [address] PCP - General Family Medicine 09/25/20 Ham Curer Relationship Specialty Start Date End Date Rufino Erickson MD [address] [place] [address] PCP - General Family Medicine 09/25/20 Ham Curer Relationship Specialty Start Date End Date Rufino Erickson MD [address] [place] [address] PCP - General Family Medicine 09/25/20 Ham Curer Relationship Specialty Start Date End Date Rufino Erickson MD [address] [place] [address] PCP - General Family Medicine 09/25/20 Ham Curer Relationship Specialty Start Date End Date Rufino Erickson MD [address] [place] [address] PCP - General Family Medicine 09/25/20 Ham Curer Relationship Specialty Start Date End Date Rufino Erickson MD [address] [place] [address] PCP - General Family Medicine 09/25/20 Ham Curer Relationship Specialty Start Date End Date Rufino Erickson MD [address] [place] [address] PCP - General Family Medicine 09/25/20 Ham Curer Relationship Specialty Start Date End Date Rufino Erickson MD [address] [place] [address] PCP - General Family Medicine 09/25/20 Ham Curer Relationship Specialty Start Date End Date Rufino Erickson MD [address] [place] [address] PCP - General Family Medicine 09/25/20 Ham Curer Relationship Specialty Start Date End Date Rufino Erickson MD [address] [place] [address] PCP - General Family Medicine 09/25/20 Ham Curer Relationship Specialty Start Date End Date Rufino Erickson MD [address] [place] [address] PCP - General Family Medicine 09/25/20 Ham Curer Relationship Specialty Start Date End Date Rufino Erickson MD [address] [place] [address] PCP - General Family Medicine 09/25/20 Ham Curer Relationship Specialty Start Date End Date Rufino Erickson MD [address] [place] [address] PCP - General Family Medicine 09/25/20 Ham Curer Relationship Specialty Start Date End Date Rufino Erickson MD [address] [place] [address] PCP - General Family Medicine 09/25/20 Ham Curer Relationship Specialty Start Date End Date Rufino Erickson MD [address] [place] [address] PCP - General Family Medicine 09/25/20 Ham Curer Relationship Specialty Start Date End Date Rufino Erickson MD [address] [place] [address] PCP - General Family Medicine 09/25/20 Ham Curer Relationship Specialty Start Date End Date Rufino Erickson MD [address] [place] [address] PCP - General Family Medicine 09/25/20 Ham Curer Relationship Specialty Start Date End Date uRfino Erickson MD [address] [place] [address] PCP - General Family Medicine 09/25/20 Ham Curer Relationship Specialty Start Date End Date Rufino Erickson MD [address] [place] [address] PCP - General Family Medicine 09/25/20 Ham Curer Relationship Specialty Start Date End Date Rufino Erickson MD [address] [place] [address] PCP - General Family Medicine 09/25/20 Ham Curer Relationship Specialty Start Date End Date Rufino Erickson MD [address] [place] [address] PCP - General Family Medicine 09/25/20 Lulu Staton APRN.CNP [address] [place] [address] Manufacturer'S Service Representative Family Medicine 03/25/24 Sarah Yang PA-C [address] [place] [address] Manufacturer'S Service Representative Family Medicine 03/25/24 Ham Curer Relationship Specialty Start Date End Date Rufino Erickson MD [address] [place] [address] PCP - General Family Medicine 09/25/20 Lulu Staton, PHI.DIVISION COMMANDER [address] [place] [address] Manufacturer'S Service Representative Family [facility] 03/25/24 Sarah Yang PA-C [address] [place] [address] Manufacturer'S Service Representative [facility] 03/25/24 Mindi Vuong, RN [address] [place] [address] Primary Care Animal Services Officer 04/10/24 Ham Curer Relationship Specialty Start Date End Date Rufino Erickson MD [address] [place] [address] PCP - General Family Medicine 09/25/20 Lulu Staton, CERTIFIED BENCH JEWELER TECHNICIAN.DIVISION COMMANDER [address] [place] [address] Manufacturer'S Service Representative Family [facility] 03/25/24 Sarah Yang PA-C [address] [place] [address] Manufacturer'S Service Representative [facility] 03/25/24 Mindi Vuong, XOCHITL [address] [place] [address] Primary Care Animal Services Officer 04/10/24 Ham Curer Relationship Specialty Start Date End Date Rufino Erickson MD [address] [place] [address] PCP - General Family Medicine 09/25/20 Lulu Staton, PHI.DIVISION COMMANDER [address] [place] [address] Manufacturer'S Service Representative Family Medicine 03/25/24 Sarah Yang PA-C [address] [place] [address] Manufacturer'S Service Representative [facility] 03/25/24 Mindi Vuong, XOCHITL [address] [place] [address] Primary Care Animal Services Officer 04/10/24 Ham Curer Relationship Specialty Start Date End Date Rufino Erickson MD [address] [place] [address] PCP - General Family Medicine 09/25/20 Lulu Staton APRN.DIVISION COMMANDER [address] [place] [address] Manufacturer'S Service Representative Family [facility] 03/25/24 Sarah Yang PA-C [address] [place] [address] Manufacturer'S Service Representative [facility] 03/25/24 Mindi Vuong, XOCHITL [address] [place] [address] Primary Care Animal Services Officer 04/10/24 Lulu Staton, PHI.DIVISION COMMANDER [address] [place] [address] Referring Family Medicine 04/18/24 Lulu Staton APRN.DIVISION COMMANDER [address] [place] [address] Home Care Provider Family Medicine 04/18/24 Ham Curer Relationship Specialty Start Date End Date Rufino Erickson MD [address] [place] [address] PCP - General Family Medicine 09/25/20 Lulu Staton APRN.DIVISION COMMANDER [facility] [place] [address] Manufacturer'S Service Representative Family Medicine 03/25/24 Sarah Yang PA-C [address] [place] [address] Manufacturer'S Service Representative Family Medicine 03/25/24 Mindi Vuong, XOCHITL [address] [place] [address] Primary Care Animal Services Officer 04/10/24 Lulu Staton APRN.DIVISION COMMANDER [address] [place] [address] Referring Family Medicine 04/18/24 Lulu Staton APRN.DIVISION COMMANDER [address] [place] [address] Home Care Provider Family Medicine 04/18/24 Aida Pepper, PT [address] [place] [address] Basketball Referee Post Acute Care 04/18/24 Ham Curer Relationship Specialty Start Date End Date Rufino Erickson MD [address] [place] [address] PCP - General Family Medicine 09/25/20 Lulu Staton, PHI.DIVISION COMMANDER [address] [place] [address] Manufacturer'S Service Representative [facility] 03/25/24 Sarah Yang PA-C [address] [place] [address] Manufacturer'S Service Representative Family Medicine 03/25/24 Mindi Vuong, XOCHITL [address] [place], [place] [address] Primary Care Animal Services Officer 04/10/24 Lulu Staton APRN.DIVISION COMMANDER [address] [place] [address] Referring Family Medicine 04/18/24 Lulu Staton APRN.DIVISION COMMANDER [address] [place] [address] Home Care Provider Family Medicine 04/18/24 Ham Curer Relationship Specialty Start Date End Date Rufino Erickson MD [address] [place] [address] PCP - General Family Medicine 09/25/20 Lulu Staton APRN.DIVISION COMMANDER [address] [place] [address] Manufacturer'S Service Representative Family Medicine 03/25/24 Sarah Yang PA-C [address] [place] [address] Manufacturer'S Service Representative Family Medicine 03/25/24 Mindi Vuong, XOCHITL [address] [place] [address] Primary Care Animal Services Officer 04/10/24 Lulu Staton APRN.DIVISION COMMANDER [address] [place] [address] Referring Family Medicine 04/18/24 Lulu Staton APRN.DIVISION COMMANDER [address] [place] [address] Home Care Provider Family Medicine 04/18/24 Ham Curer Relationship Specialty Start Date End Date Rufino Erickson MD [address] [place] [address] PCP - General Family Medicine 09/25/20 Lulu Staton APRN.DIVISION COMMANDER [address] [place] [address] Manufacturer'S Service Representative Family Medicine 03/25/24 Sarah Yang PA-C [address] [place] [address] Manufacturer'S Service Representative Family Medicine 03/25/24 Lulu Staton APRN.DIVISION COMMANDER [address] [place] [address] Referring Family Medicine 04/18/24 Lulu Staton APRN.DIVISION COMMANDER [address] [place] [address] Home Care Provider Family Medicine 04/18/24 Ham Curer Relationship Specialty Start Date End Date Rufino Erickson MD [address] [place] [address] PCP - General Family Medicine 09/25/20 Lulu Staton APRN.DIVISION COMMANDER [address] [place] [address] Manufacturer'S Service Representative Family Medicine 03/25/24 Sarah Yang PA-C [address] [place] [address] Manufacturer'S Service Representative Family Medicine 03/25/24 Lulu Staton APRN.DIVISION COMMANDER [address] [place] [address] Referring Family Medicine 04/18/24 Lulu Staton APRN.DIVISION COMMANDER [address] [facility] [place] [address] Home Care Provider Family Medicine 04/18/24 Ham Curer Relationship Specialty Start Date End Date Rufino Erickson MD [address] [facility] [place] [address] PCP - General Family Medicine 09/25/20 Lulu Staton APRN.DIVISION COMMANDER [address] [place] [address] Manufacturer'S Service Representative Family Medicine 03/25/24 Sarah Yang PA-C [facility] [place] [address] Manufacturer'S Service Representative Family Medicine 03/25/24 Lulu Staton APRN.DIVISION COMMANDER [address] [place] [address] Referring Family Medicine 04/18/24 Lulu Staton APRN.DIVISION COMMANDER [address] [place] [address] Home Care Provider Family Medicine 04/18/24 Ham Curer Relationship Specialty Start Date End Date Rufino Erickson MD [address] [facility] [place] [address] PCP - General Family Medicine 09/25/20 Lulu Staton APRN.DIVISION COMMANDER [facility] [place] [address] Manufacturer'S Service Representative Family Medicine 03/25/24 Sarah Yang PA-C [facility] [place] [address] Manufacturer'S Service Representative Family Medicine 03/25/24 Lulu Staton APRN.DIVISION COMMANDER [address] [place] [address] Referring Family Medicine 04/18/24 Lulu Staton APRN.DIVISION COMMANDER [address] [place] [address] Home Care Provider Family Medicine 04/18/24 Ham Curer Relationship Specialty Start Date End Date Rufino Erickson MD [address] [place] [address] PCP - General Family Medicine 09/25/20 Lulu Staton APRN.DIVISION COMMANDER [address] [place] [address] Manufacturer'S Service Representative Family Medicine 03/25/24 Sarah Yang PA-C [address] [place] [address] Manufacturer'S Service Representative Family Medicine 03/25/24 Lulu Staton APRN.DIVISION COMMANDER [address] [place] [address] Referring Family Medicine 04/18/24 Lulu Staton APRN.DIVISION COMMANDER [address] [place] [address] Home Care Provider Family Medicine 04/18/24 Ham Curer Relationship Specialty Start Date End Date Rufino Erickson MD [address] [place] [address] PCP - General Family Medicine 09/25/20 Lulu Staton APRN.DIVISION COMMANDER [address] [facility] [place] [address] Manufacturer'S Service Representative Family Medicine 03/25/24 Sarah Yang PA-C [address] [place] [address] Manufacturer'S Service Representative Family Medicine 03/25/24 Lulu Staton APRN.DIVISION COMMANDER [address] [place] [address]687 Referring Family Medicine 04/18/24 Lulu Staton APRN.DIVISION COMMANDER [address] [place] [address] Home Care Provider Family Medicine 04/18/24 Ham Curer Relationship Specialty Start Date End Date Rufino Erickson MD [address] [place] [address] PCP - General Family Medicine 09/25/20 Lulu Staton APRN.DIVISION COMMANDER [address] [place] [address] 69382 Manufacturer'S Service Representative Family Medicine 03/25/24 Sarah Yang PA-C [facility] [place] [address] Manufacturer'S Service Representative Family Medicine 03/25/24 Lulu Staton APRN.DIVISION COMMANDER [facility] [place] [address] Referring Family Medicine 04/18/24 Lulu Staton APRN.DIVISION COMMANDER [address] [place] [address] [phone] Home Care Provider Family Medicine 04/18/24 Ham Curer Relationship Specialty Start Date End Date Rufino Erickson MD [address] [place] [address] PCP - General Family Medicine 09/25/20 Lulu Staton APRN.DIVISION COMMANDER [address] [place] [address] [phone] Manufacturer'S Service Representative Family Medicine 03/25/24 09/03/24 Sarah Yang PA-C [address] [place] [address] 09654 Manufacturer'S Service Representative Family Medicine 03/25/24 Lulu Staton APRN.DIVISION COMMANDER [address] [place] [address] 79452 Referring Family Medicine 04/18/24 Lulu Staton APRN.DIVISION COMMANDER [address] [place] [address] 68637 Home Care Provider Family Medicine 04/18/24 Ham Curer Relationship Specialty Start Date End Date Rufino Erickson MD [address] [place] [address] 76807 PCP - General Family Medicine 09/25/20 Lulu Staton CERTIFIED BENCH JEWELER TECHNICIAN.DIVISION COMMANDER [address] [place] [address] 53132 Referring Family Medicine 04/18/24 Lulu Staton APRN.DIVISION COMMANDER [address] [place] [address] 64692 Home Care Provider Family Medicine 04/18/24 Lulu Staton APRN.DIVISION COMMANDER [address] [place] [address] Manufacturer'S Service Representative Family Medicine 09/18/24 Sarah Yang PA-C [address] [place] [address] Manufacturer'S Service Representative Family Medicine 09/18/24 Ham Curer Relationship Specialty Start Date End Date Rufino Ercikson MD [address] [place] [address] PCP - General Family Medicine 09/25/20 Lulu Staton APRN.DIVISION COMMANDER [address] [place] [address] [phone] Referring Family Medicine 04/18/24 Lulu Staton APRN.DIVISION COMMANDER [address] [place] [address] 60511 Home Care Provider Family Medicine 04/18/24 Lulu Staton, PHI.DIVISION COMMANDER [address] [place] [address] 43570 Manufacturer'S Service Representative Family Medicine 09/18/24 Sarah Yang PA-C [address] [facility] [place] [address] Manufacturer'S Service Representative Family Medicine 09/18/24 Ham Curer Relationship Specialty Start Date End Date Rufino Erickson MD [address] [facility] [place] [address] PCP - General Family Medicine 09/25/20 Lulu Staton APRN.DIVISION COMMANDER [facility] [place] [address] Referring Family Medicine 04/18/24 Lulu Staton APRN.DIVISION COMMANDER [address] [place] [address] 38013 Home Care Provider Family Medicine 04/18/24 Lulu Staton APRN.DIVISION COMMANDER [address] [place] [address] [phone] Manufacturer'S Service Representative Family Medicine 09/18/24 Sarah Yang PA-C [address] [place] [address] 87087 Manufacturer'S Service Representative Family Medicine 09/18/24 Ham Curer Relationship Specialty Start Date End Date Rufino Erickson MD [address] [place] [address] [phone] PCP - General Family Medicine 09/25/20 Lulu Staton APRN.DIVISION COMMANDER [address] [place] [address] [phone] Referring Family Medicine 04/18/24 Lulu Staton APRN.DIVISION COMMANDER [address] [place] [address] 28888 Home Care Provider Family Medicine 04/18/24 Lulu Staton APRN.DIVISION COMMANDER [address] [place] [address] 87101 Manufacturer'S Service Representative Family Medicine 09/18/24 Sarah Yang PA-C [address] [place] [address] Manufacturer'S Service Representative Family Medicine 09/18/24 Ham Curer Relationship Specialty Start Date End Date Rufino Erickson MD [address] [facility] [place] [address] PCP - General Family Medicine 09/25/20 Lulu Staton APRN.DIVISION COMMANDER [address] [place] [address] Referring Family Medicine 04/18/24 Lulu Staton APRN.DIVISION COMMANDER [address] [place] [address] 80110 Home Care Provider Family Medicine 04/18/24 Lulu Staton APRN.DIVISION COMMANDER [address] [place] [address] [phone] Manufacturer'S Service Representative Family Medicine 09/18/24 Sarah Yang PA-C [address] [place] [address] Manufacturer'S Service Representative Family Medicine 09/18/24 Ham Curer Relationship Specialty Start Date End Date Rufino Erickson MD [address] [place] [address] PCP - General Family Medicine 09/25/20 Lulu Staton APRN.DIVISION COMMANDER [address] [place] [address] 57598 Referring Family Medicine 04/18/24 Lulu Staton APRN.DIVISION COMMANDER [facility] [place] [address] Home Care Provider Family Medicine 04/18/24 Lulu Staton APRN.DIVISION COMMANDER [facility] [place] [address] Manufacturer'S Service Representative Family [facility] 09/18/24 Sarah Yang PA-C [address] [place], [place] 538331 Manufacturer'S Service Representative Family [facility] 09/18/24 Team Status: Active Member Role/Relationship Status Dates Dr. Rufino Erickson MD Primary Care Provider Active Team Status: Inactive Member Role/Relationship Status Dates Dr. Rufino Erickson MD Primary Care Provider Active Start: August 24, 2024 End: August 24, 2024 Dr. Rufino Erickson MD Referring Provider Active Start: August 24, 2024 End: August 24, 2024 Melisa Vázquez NP, MALTED MILK MIXER-C Attending Provider Active Start: August 24, 2024 End: August 24, 2024 Team Status: Inactive Member Role/Relationship Status Dates Dr. Rufnio Erickson MD Primary Care Provider Active Start: October 23, 2024 End: October 23, 2024 Dr. Michael Sagastume MD Emergency Provider Active S tart: October 23, 2024 End: October 23, 2024 Ham Curer Relationship Specialty Start Date End Date Rufino Erickson MD [address] [place] [address] [phone] PCP - General Family Medicine 09/25/20 Lulu Staton APRN.DIVISION COMMANDER [address] [place] [address] [phone] Referring Family Medicine 04/18/24 Lulu Staton APRN.DIVISION COMMANDER [address] [place] [address] [phone] Home Care Provider Family Medicine 04/18/24 Lulu Staton APRN.DIVISION COMMANDER [address] [place] [address] [phone] Manufacturer'S Service Representative Family [facility] 09/18/24 Sarah Yang PA-C [address] [place] [place], [place] 168371 [facility] 09/18/24 Team Status: Inactive Member Role/Relationship Status Dates Dr. Rufino Erickson MD Primary Care Provider Active Start: October 26, 2024 End: October 26, 2024 Dr. Rufino Erickson MD Referring Provider Active Start: October 26, 2024 End: October 26, 2024 Mónica HANSON, PA Attending Provider Active Start: October 26, 2024 End: October 26, 2024 Ham Curer Relationship Specialty [place] [address] [place] [address] [phone] PCP - General Family Medicine 09/25/20 Lulu Staton, PHI.DIVISION COMMANDER [address] [place] [address] [phone] Referring Family Medicine 04/18/24 Lulu Staton, PHI.DIVISION COMMANDER [address] [place], [place] [phone] Home Care Provider Family Medicine 04/18/24 Lulu Staton, PHI.DIVISION COMMANDER [address] [place] [address] [phone] [facility] 09/18/24 Sarah Yang PA-C [address] [place] [place], [place] 517941 [facility] 09/18/24 Team Status: Inactive Member Role/Relationship Status [...] December 07, 2024 End: December 07, 2024 Ham Curer Relationship Specialty Start Date End Date Rufino Erickson MD [address] [place] [address] [phone] PCP - General Family Medicine 09/25/20 Lulu Staton, CERTIFIED BENCH JEWELER TECHNICIAN.DIVISION COMMANDER [address] [place] [address] [phone] Referring Family Medicine 04/18/24 Lulu Staton, CERTIFIED BENCH JEWELER TECHNICIAN.DIVISION COMMANDER [address] [place] [address] [phone] Home Care Provider Family Medicine 04/18/24 Lulu Staton, CERTIFIED BENCH JEWELER TECHNICIAN.DIVISION COMMANDER [address] [place] [address] [phone] Manufacturer'S Service Representative Family Medicine 09/18/24 Sarah Yang PA-C [address] [place], [place] [phone] Manufacturer'S Service Representative Family Medicine 09/18/24 Team Status: Inactive Member Role/Relationship Status Dates Dr. Rufino Erickson MD Primary Care Provider Active Start: December 14, 2024 End: December 14, 2024 Dr. Rufino Erickson MD Referring Provider Active Start: December 14, 2024 End: December 14, 2024 Mónica HANSON, PA Attending Provider Active Start: December 14, 2024 End: December 14, 2024 Ham Curer Relationship Specialty Start Date End Date Rufino Erickson MD [facility] [place], [place] 594[address] [phone] PCP - General Family Medicine 09/25/20 Lulu Staton APRN.DIVISION COMMANDER [address] [place] [address] 56511 Referring Family Medicine 04/18/24 Lulu Staton APRN.DIVISION COMMANDER [facility] [place], [place] 670629 [phone] Home Care Provider Family Medicine 04/18/24 Lulu Staton, PHI.DIVISION COMMANDER [address] [place] [address] Manufacturer'S Service Representative Family Medicine 09/18/24 Sarah Yang PA-C [address] [place], [place] 069462 [phone] Manufacturer'S Service Representative Family Medicine 09/18/24 Ham Curer Relationship Specialty Start Date End Date Rufino Erickson MD [address] [place], [place] [phone] PCP - General Family Medicine 09/25/20 Lulu Staton APRN.DIVISION COMMANDER [address] [facility] [place] [address] Referring Family Medicine 04/18/24 Lulu Staton APRN.DIVISION COMMANDER [address] [facility] [place] [address] Home Care Provider Family Medicine 04/18/24 Lulu Staton APRN.DIVISION COMMANDER [address] [place] [address], [place] [address] Manufacturer'S Service Representative Family Medicine 09/18/24 Sarah Yang PA-C [address] [place] [address], [place] [address] Manufacturer'S Service Representative Family Medicine 09/18/24 Ham Curer Relationship Specialty [place] [address] [place] [address], [place] [address] PCP - General Family Medicine 09/25/20 Lulu Staton APRN.DIVISION COMMANDER [address] [place] [address], [place] [address] Referring Family Medicine 04/18/24 Lulu Staton APRN.DIVISION COMMANDER [address] [place] [address], [place] [address] Home Care Provider Family Medicine 04/18/24 Lulu Staton APRN.DIVISION COMMANDER [facility] [place] [address] Manufacturer'S Service Representative Family Medicine 09/18/24 Sarah Yang PA-C [facility] [place] [address] Manufacturer'S Service Representative Family Medicine 09/18/24 Team Status: Active Member [...] BE BASED ON THE PRIMARY CLINICAL RECORDS. [employer]. provides no warranty or guarantee of the accuracy or completeness of information in this document.
[2025-01-19 23:55] VITALS: BMI 29.5
[2025-01-20 00:15] LABS: Magnesium 2.1 mg/dL (1.5-2.2)
[2025-01-20 00:16] VITALS: BP 145/47; PULSE 59; RESP 16; TEMP 36.5; O2SAT 95
[2025-01-20 00:39] LABS: Procalcitonin 0.07 ng/mL (<=0.10)
[2025-01-20] MEDS: 0.9% Saline Lock 10 ML Syringe IV ×4 (00:43→21:53)
[2025-01-20] MEDS: APIXABAN 5 MG TABLET PO ×3 (00:44→21:40)
[2025-01-20] MEDS: 0.9% Normal Saline (1000mL) 1,000 ML 75 ML IV (00:45)
[2025-01-20 06:00] VITALS: BP 136/69; PULSE 84; RESP 16; TEMP 36.9; O2SAT 95
[2025-01-20 07:47] VITALS: BP 140/44; PULSE 72; RESP 16; TEMP 36.7; O2SAT 94
[2025-01-20] MEDS: FLU VACCINE HIGH DOSE 25-26(65YR UP) 180 MCG/0.5 ML SYRINGE IM (07:57)
[2025-01-20 08:08] LABS: Hematocrit 34.8 % (37-47); Hemoglobin 11.3 g/dL (12.0-15.0); Immature Granulocytes Count 0.010 X10^3/uL (0.0-0.0); Mean Corp Hgb Conc 32.5 g/dL (32-36); Mean Corpuscular Volume 93.5 fL (81-99); Mean Platelet Vol. 11.0 fl (6.2-12.0); NRBC Flagged by Analyzer 0 % (0-5); POSITIVE COUNT YES; RBC Distribution Width CV 13.1 % (11.6-14.6); RBC Distribution Width SD 44.9 fl (35.1-43.9); Red Blood Count 3.72 M/mm3 (4.2-5.4); White Blood Count 3.8 K/mm3 (4.4-11.0)
[2025-01-20 08:40] LABS: Differential Indicated SCAN CRITERIA MET
[2025-01-20 09:50] LABS: AST(SGOT) 21 U/L (<=31); Alanine Aminotransfer ALT/SGPT < 5 U/L (<=34); Albumin, Serum 3.5 g/dL (3.4-4.8); Alkaline Phosphatase 65 U/L (35-104); Anion Gap 9 (5-15); BUN 7 mg/dL (4-19); BUN/Creat Ratio 8.9 RATIO (10-20); Calcium,Total 8.6 mg/dL (7.6-11.0); Carbon Dioxide 29.9 mmol/L (21.0-32.0); Chloride 101 mmol/L (98-108); Estimated Creatinine Clearance 40.48 ml/min (50-250); Globulin 2.2 g/dL (2.2-4.2); Glucose 98 mg/dL (70-99); Potassium 3.5 mmol/L (3.3-5.1)
--- NOTE | 2025-01-20 11:40 | CASEMGMT ---
Addendum entered by Jazmyn Mora 01/20/25 12:45: XOCHITL MONTEIRO discussed therapy session with therapists. XOCHITL MONTEIRO back into pt room, pt present with 3 sons. Pt and family have decided they would like [facility] without therapy. Discussed approximate pricing with them. They are questioning requirements regarding JOSHUA. Spoke with Demetrice BENNETT who will notify Juliane [employer]. Espinoza's number will be given for Juliane to contact. Family would like to speak to Juliane Wednesday and discuss over the weekend then have a final answer on Wednesday. Original Note: XOCHITL MONTEIRO into pt room to discuss dc planning. Pt two sons, dil and grandson present. Pt agreeable to discussion with family present. Pt alert and oriented x3. Pt lives with son Espinoza. Pt has been falling multiple times at home. She typically is only ambulating household distances. Pt goes to grocery store with son but is wheeled around. Pt son states pt gets up a lot to use the bathroom and he does not get to sleep and is filled with worry for pt safety d/t frailty. He states pt did do one visit at [facility] for PT and it made pt worse. Pt has been home since June, she was in [facility]. Pt enjoyed her time there. Pt and family uncertain if they want therapy for pt or if they want her to go to a SNF without therapy. Discussed that since pt is in observation, skilled therapy would not be covered. PT and OT came in the room for eval. Pt and family aware that once therapy is finished, XOCHITL MONTEIRO will come back to discuss their recommendations as well as pt and family wishes. Pt son called other son to come in for discussion. XOCHITL MONTEIRO to follow.
--- NOTE | 2025-01-20 11:43 | CASEMGMT ---
XOCHITL MONTEIRO in to discuss JACOB form with patient. Pt visiting with 2 sons, dil and grandson. Pt agreeeable to discussion regarding dc planning with all family present. Pt requests son Espinoza to sign JACOB form. XOCHITL MONTEIRO explained JACOB form, patient and family voiced understanding. Pt son signed form and filed in chart. Pt provided with a copy of signed JACOB form. Patient had no further questions or concerns at this time.
--- NOTE | 2025-01-20 14:20 | PN_ITS ---
Subjective Subjective Patient seen and examined with her nurse by her bedside. She was working with speech therapy. She had no active complaints and had an uneventful night. Review of systems otherwise negative. She was admitted with a complaint of weakness and debility and says she has made up her mind to go to a correction. Objective Data Objective Data Vital Signs: Vital Signs Temp Pulse Resp BP Pulse Ox O2 Del Method 98.0 F 72 16 140/44 H 94 Room Air 01/20/25 07:47 01/20/25 07:47 01/20/25 07:47 01/20/25 07:47 01/20/25 07:47 01/20/25 07:47 Oxygen Delivery Method Room Air Weight: 146 lb Body Mass Index (BMI) 29.5 Intake & Output: Intake and Output for Last 24 Hours 01/18/25 01/19/25 01/20/25 23:59 23:59 23:59 Intake Total 775 / 775 Balance 775 / 775 Medical Nutrition Assessment Dietitian: Malnutrition Criteria Met Start: 01/20/25 13:02 Freq: Status: Active Protocol: Document 01/20/25 13:02 SERGIO (Rec: 01/20/25 13:02 SERGIO [id number]) Nutrition Malnutrition Evidence of Yes Malnutrition Exists Malnutrition (severe Acute Illness/Injury ): Evidenced By Suboptimal Energy Intake (Severe),Weight Loss (Severe) Clinical Problem Acute Disease or Injury Related Malnutrition Etiology related to inadequate energy intake and issues w/ diarrhea Signs/Symptoms as evidenced by po intake meeting < 50% of est nutritional needs and 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 Lab / Micro Data 01/20/25 07:11 01/20/25 07:11 Labs: Laboratory Results - last 24 hr 01/19/25 19:00: WBC 3.9 L, RBC 3.99 L, Hgb 12.2, Hct 37.0, MCV 92.7, MCH 30.6, MCHC 33.0, RDW Std Deviation 43.7, RDW Coeff of Tanner 12.9, Plt Count TNP, MPV TNP, Immature Gran % (Auto) 0.300, Neut % (Auto) 34.4 L, Lymph % (Auto) 48.8 H, [place] % (Auto) 16.2 H, Eos % (Auto) 0.0, Baso % (Auto) 0.3, Absolute Neuts (auto) 1.3 L, Absolute Lymphs (auto) 1.90, Nucleated RBC % 0, Differential Comment SCANNED, Platelet Estimate SLT DEC, Sodium 137, Potassium 3.7, Chloride 97 L, Carbon Dioxide 30.8, Anion Gap 9, BUN 9, Creatinine 0.76, Estim Creat Clear Calc 40.99 L, Est GFR (MDRD) Non-Af 75, BUN/Creatinine Ratio 11.4, Glucose 139 H, Calcium 8.9, Phosphorus 3.0, Magnesium 2.1, Procalcitonin 0.07 01/19/25 20:31: Urine Color Yellow, Urine Clarity Clear, Urine pH 6.5, Ur Specific [place] 1.015, Urine Protein 30 H, Urine Glucose (UA) Normal, Urine Ketones Negative, Urine Occult Blood Negative, Urine Nitrite Negative, Urine Bilirubin Negative, Urine Urobilinogen 1 H, Ur Leukocyte Esterase Negative, Urine RBC 0-5 SEEN, Urine WBC 0-5 SEEN, Ur Squamous Epith Cells 0-5 SEEN, Urine Bacteria 0 SEEN, Urine Mucus 0 SEEN 01/20/25 06:07: POC Glucose 137 H 01/20/25 07:11: WBC 3.8 L, RBC 3.72 L, Hgb 11.3 L, Hct 34.8 L, MCV 93.5, MCH 30.4, MCHC 32.5, RDW Std Deviation 44.9 H, RDW Coeff of Tanner 13.1, Plt Count , MPV 11.0, Immature Gran % (Auto) 0.300, Neut % (Auto) 30.3 L, Lymph % (Auto) 50.1 H, [place] % (Auto) 19.0 H, Eos % (Auto) 0.0, Baso % (Auto) 0.3, Absolute Neuts (auto) 1.2 L, Absolute Lymphs (auto) 1.90, Nucleated RBC % 0, Platelet Estimate SLT DEC, Sodium 139, Potassium 3.5, Chloride 101, Carbon Dioxide 29.9, Anion Gap 9, BUN 7, Creatinine 0.74, Estim Creat Clear Calc 40.48 L, Est GFR (MDRD) Non-Af 77, BUN/Creatinine Ratio 8.9 L, Glucose 98, Calcium 8.6, Total Bilirubin 0.87, AST 21, ALT < 5, Alkaline Phosphatase 65, Total Protein 5.7 L, Albumin 3.5, Globulin 2.2, Albumin/Globulin Ratio 1.6 01/20/25 11:04: POC Glucose 112 H Radiography Diagnostic Testing: Radiology Impression Chest X-Ray 01/19/25 20:30 IMPRESSION: No acute pulmonary process Reading Location: [facility] Rhythm Strip Rhythm Strip: Sinus Rhythm Rate: 62 Ectopy: None Physical Exam Const alert and no apparent distress Constitutional Narrative: Frail General Appearance: cooperative HEENT normocephalic and head/scalp atraumatic Mouth: dry mucous membranes Neck supple and no JVD Lymph Lymphatic: no lymphedema noted Resp Resp Narrative: Mildly diminished breath sounds bibasilarly. No wheezes or crackles. On room air. Cardio regular rate, regular rhythm, S1 normal heart sound, S2 normal heart sound and no murmurs GI normal to inspection, nondistended, normoactive bowel sounds, soft to palpation, non-tender and non-distended Extremity normal capillary refill, no clubbing, cyanosis or edema and no calf tenderness General Extremity: no tenderness to palpation of joints or extremities Skin General Skin Exam: no breakdown Neuro CN's II-XII intact bilaterally, no focal motor deficits and no sensory deficits noted Motor Exam: general weakness Psych thought process normal, cooperative and affect normal Appearance: appropriate Assessment & Plan Assessment/Plan (1) Adult failure to thrive: (2) Diarrhea: PLAN: Plan #Debility and weakness with failure to thrive. * Patient lives with her son at home. He has been falling frequently. She also has underlying dementia. * Patient is stable and communicative today. She has not had any more diarrhea. * PT OT on board. She tells me she has made up her mind to go to a correction. Case management on board to help facilitate placement. #Dementia without behavioral disturbance: On donepezil. Will continue. PT OT on board. For precautions. 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 On Eliquis and statin. PT OT on board. #Paroxysmal A-fib: Amiodarone. On Eliquis. DVT prophylaxis, already on Eliquis CODE STATUS: DNR CCA no intubation. Disposition: awaiting placement. Charges/Coding Visit Charges Inpatient E&M: 75171 Subs Hosp L2
[2025-01-20 14:33] VITALS: BP 123/54; PULSE 64; RESP 16; TEMP 36.8; O2SAT 100
[2025-01-20 21:27] VITALS: BP 124/40; PULSE 66; RESP 18; TEMP 37.1; O2SAT 98
[2025-01-21 04:47] VITALS: BP 131/63; PULSE 71; RESP 16; TEMP 36.3; O2SAT 96
[2025-01-21 05:07] LABS: Hematocrit 39.4 % (37-47); Hemoglobin 12.5 g/dL (12.0-15.0); Immature Granulocytes Count 0.010 X10^3/uL (0.0-0.0); Mean Corp Hgb Conc 31.7 g/dL (32-36); Mean Corpuscular Volume 94.9 fL (81-99); NRBC Flagged by Analyzer 0 % (0-5); POSITIVE COUNT YES; RBC Distribution Width CV 13.1 % (11.6-14.6); RBC Distribution Width SD 44.9 fl (35.1-43.9); Red Blood Count 4.15 M/mm3 (4.2-5.4); White Blood Count 4.6 K/mm3 (4.4-11.0)
[2025-01-21 05:23] VITALS: BMI 29.2
[2025-01-21 05:24] LABS: Differential Comment SCANNED; Differential Indicated SCAN CRITERIA MET
[2025-01-21 05:36] LABS: Anion Gap 11 (5-15); BUN 7 mg/dL (4-19); BUN/Creat Ratio 9.7 RATIO (10-20); Calcium,Total 8.8 mg/dL (7.6-11.0); Carbon Dioxide 26.2 mmol/L (21.0-32.0); Chloride 101 mmol/L (98-108); Estimated Creatinine Clearance 40.35 ml/min (50-250); Glucose 104 mg/dL (70-99); Potassium 3.9 mmol/L (3.3-5.1)
[2025-01-21 07:28] VITALS: O2SAT 95
[2025-01-21 10:36] VITALS: BP 117/59; PULSE 65; RESP 18; TEMP 36.4; O2SAT 96
[2025-01-21] MEDS: APIXABAN 5 MG TABLET PO ×2 (10:40→19:57)
--- NOTE | 2025-01-21 11:01 | PN_ITS ---
Subjective Subjective Patient seen and examined. She was sitting comfortably in her chair. She had no complaints. Review of systems is otherwise negative. She has remained hemodynamically stable. Objective Data Objective Data Vital Signs: Vital Signs Temp Pulse Resp BP Pulse Ox O2 Del Method 97.6 F L 65 18 117/59 L 96 Room Air 01/21/25 10:36 01/21/25 10:36 01/21/25 10:36 01/21/25 10:36 01/21/25 10:36 01/21/25 10:41 Oxygen Delivery Method Room Air Weight: 145 lb 1.027 oz Body Mass Index (BMI) 29.2 Intake & Output: Intake and Output for Last 24 Hours 01/19/25 01/20/25 01/21/25 23:59 23:59 23:59 Intake Total 975 / 975 Balance 975 / 975 Medical Nutrition Assessment Dietitian: Malnutrition Criteria Met Start: 01/20/25 13:02 Freq: Status: Active Protocol: Document 01/20/25 13:02 SERGIO (Rec: 01/20/25 13:02 [facility] [id number]) Nutrition Malnutrition Evidence of Yes Malnutrition Exists Malnutrition (severe Acute Illness/Injury ): Evidenced By Suboptimal Energy Intake (Severe),Weight Loss (Severe) Clinical Problem Acute Disease or Injury Related Malnutrition Etiology related to inadequate energy intake and issues w/ diarrhea Signs/Symptoms as evidenced by po intake meeting < 50% of est nutritional needs and 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 Lab / Micro Data 01/21/25 04:07 01/21/25 04:07 Labs: Laboratory Results - last 24 hr 01/20/25 11:04: POC Glucose 112 H 01/20/25 16:43: POC Glucose 114 H 01/20/25 21:59: POC Glucose 104 01/21/25 04:07: WBC 4.6, RBC 4.15 L, Hgb 12.5, Hct 39.4, MCV 94.9, MCH 30.1, M CHC 31.7 L, RDW Std Deviation 44.9 H, RDW Coeff of Tanner 13.1, Plt Count , MPV Not Reportable, Immature Gran % (Auto) 0.200, Neut % (Auto) 34.5 L, Lymph % (Auto) 43.5 H, [place] % (Auto) 20.1 H, Eos % (Auto) 1.3, Baso % (Auto) 0.4, Absolute Neuts (auto) 1.6 L, Absolute Lymphs (auto) 1.99, Nucleated RBC % 0, Differential Comment SCANNED, Sodium 138, Potassium 3.9, Chloride 101, Carbon Dioxide 26.2, Anion Gap 11, BUN 7, Creatinine 0.74, Estim Creat Clear Calc 40.35 L, Est GFR (MDRD) Non-Af 77, BUN/Creatinine Ratio 9.7 L, Glucose 104 H, Calcium 8.8 Rhythm Strip Rhythm Strip: Sinus Rhythm Rate: 62 Ectopy: None Physical Exam Const alert and no apparent distress Constitutional Narrative: Frail General Appearance: cooperative HEENT normocephalic and head/scalp atraumatic Eyes EOMs intact bilaterally Neck supple and no JVD Lymph Lymphatic: no lymphedema noted Resp Resp Narrative: Mildly diminished breath sounds bibasilarly. No wheezes or crackles. On room air. Cardio regular rate, regular rhythm, S1 normal heart sound, S2 normal heart sound and no murmurs GI normal to inspection, nondistended, normoactive bowel sounds, soft to palpation, non-tender and non-distended Extremity normal capillary refill, no clubbing, cyanosis or edema and no calf tenderness General Extremity: no tenderness to palpation of joints or extremities Skin General Skin Exam: no breakdown Neuro CN's II-XII intact bilaterally, no focal motor deficits and no sensory deficits noted Motor Exam: general weakness Psych thought process normal, cooperative and affect normal Appearance: appropriate Assessment & Plan Assessment/Plan (1) Adult failure to thrive: (2) Diarrhea: PLAN: Plan #Debility and weakness with failure to thrive. * Patient lives with her son at home. He has been falling frequently. She also has underlying dementia. * Patient is stable and communicative today. She has not had any more diarrhea. * PT OT on board. * she is awaiting placement. #Dementia without behavioral disturbance: On donepezil. PT OT on board. For precautions. 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 On Eliquis and statin. PT OT on board. #Paroxysmal A-fib: Amiodarone. On Eliquis. DVT prophylaxis, already on Eliquis CODE STATUS: DNR CCA no intubation. Disposition: awaiting placement. Charges/Coding Visit Charges Inpatient E&M: 35710 Subs Hosp L2
[2025-01-21 14:43] VITALS: BP 116/46; PULSE 61; RESP 18; TEMP 36.7; O2SAT 96
[2025-01-21 19:42] VITALS: BP 106/74; PULSE 63; RESP 20; TEMP 37.1; O2SAT 95
[2025-01-21] MEDS: 0.9% Saline Lock 10 ML Syringe IV (19:57)
[2025-01-21 23:21] VITALS: BP 160/62; PULSE 68; RESP 18; TEMP 36.7; O2SAT 94
[2025-01-22 06:00] VITALS: BMI 29.2
[2025-01-22 06:50] LABS: Hematocrit 38.3 % (37-47); Hemoglobin 12.6 g/dL (12.0-15.0); Immature Granulocytes Count 0.010 X10^3/uL (0.0-0.0); Mean Corp Hgb Conc 32.9 g/dL (32-36); Mean Corpuscular Volume 93.0 fL (81-99); Mean Platelet Vol. 10.6 fl (6.2-12.0); NRBC Flagged by Analyzer 0 % (0-5); POSITIVE COUNT YES; Platelet Count 82 K/mm3 (150-450); RBC Distribution Width CV 13.3 % (11.6-14.6); RBC Distribution Width SD 44.4 fl (35.1-43.9); Red Blood Count 4.12 M/mm3 (4.2-5.4); White Blood Count 3.9 K/mm3 (4.4-11.0)
[2025-01-22 06:51] VITALS: BP 164/78; PULSE 69; RESP 16; TEMP 36.2; O2SAT 95
[2025-01-22 06:57] LABS: Differential Indicated SCAN CRITERIA MET
[2025-01-22 07:25] LABS: Anion Gap 9 (5-15); BUN 9 mg/dL (4-19); BUN/Creat Ratio 10.8 RATIO (10-20); Calcium,Total 9.0 mg/dL (7.6-11.0); Carbon Dioxide 30.4 mmol/L (21.0-32.0); Chloride 101 mmol/L (98-108); Estimated Creatinine Clearance 39.37 ml/min (50-250); Glucose 99 mg/dL (70-99); Potassium 4.3 mmol/L (3.3-5.1)
[2025-01-22 07:41] VITALS: O2SAT 94
[2025-01-22 08:22] VITALS: BP 139/54; PULSE 77; RESP 16; TEMP 36.6; O2SAT 94
[2025-01-22] MEDS: APIXABAN 5 MG TABLET PO (08:37)
--- NOTE | 2025-01-22 11:03 | CASEMGMT ---
Addendum entered by Felipa Nichols 01/22/25 14:18: [facility] has decided to accept pt again. SW updated. Addendum entered by Felipa Nichols 01/22/25 13:14: [facility] accepted pt based on assumption that pt would rehab and return home. Once explained that pt needs [facility], they declined d/t no terminal gauger bed availability. SW updated. Felipa Nichols DC Planning Asst. Addendum entered by Felipa Nichols 01/22/25 11:55: [facility] has accepted. They will have a bed available on (01/23). SW updated. Felipa Nichols DC Planning Asst. Original Note: Discharge Planning Referral sent to [facility]. Felipa Nichols DC Planning Asst.
--- NOTE | 2025-01-22 13:03 | PCM.PROGNOTE ---
Subjective Subjective Patient seen and examined. She was lying comfortably in bed and had no complaints. He had an uneventful night. Review of systems otherwise negative. She is awaiting placement. Objective Data Objective Data Vital Signs: Vital Signs Temp Pulse Resp BP Pulse Ox O2 Del Method 97.9 F 77 16 139/54 H 94 Room Air 01/22/25 08:22 01/22/25 08:22 01/22/25 08:22 01/22/25 08:22 01/22/25 08:22 01/22/25 08:28 Oxygen Delivery Method Room Air Weight: 145 lb Body Mass Index (BMI) 29.2 Intake & Output: Intake and Output for Last 24 Hours 01/20/25 01/21/25 01/22/25 23:59 23:59 23:59 Intake Total 975 / 975 100 / 100 Output Total 500 / 500 Balance 975 / 975 -400 / -400 Medical Nutrition Assessment Dietitian: Malnutrition Criteria Met Start: 01/20/25 13:02 Freq: Status: Active Protocol: Document 01/20/25 13:02 SERGIO (Rec: 01/20/25 13:02 [facility] [id number]) Nutrition Malnutrition Evidence of Yes Malnutrition Exists Malnutrition (severe Acute Illness/Injury ): Evidenced By Suboptimal Energy Intake (Severe),Weight Loss (Severe) Clinical Problem Acute Disease or Injury Related Malnutrition Etiology related to inadequate energy intake and issues w/ diarrhea Signs/Symptoms as evidenced by po intake meeting < 50% of est nutritional needs and 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 Lab / Micro Data 01/22/25 06:19 01/22/25 06:19 Labs: Laboratory Results - last 24 hr 01/21/25 16:34: POC Glucose 136 H 01/21/25 20:09: POC Glucose 102 01/22/25 06:19: WBC 3.9 L, RBC 4.12 L, Hgb 12.6, Hct 38.3, MCV 93.0, MCH 30.6, MCHC 32.9, RDW Std Deviation 44.4 H, RDW Coeff of Tanner 13.3, Plt Count 82 L, MPV 10.6, Immature Gran % (Auto) 0.300, Neut % (Auto) 33.2 L, Lymph % (Auto) 45.4 H, [place] % (Auto) 20.6 H, Eos % (Auto) 0.0, Baso % (Auto) 0.5, Absolute Neuts (auto) 1.3 L, Absolute Lymphs (auto) 1.79, Nucleated RBC % 0, Platelet Estimate SLT DEC, Sodium 141, Potassium 4.3, Chloride 101, Carbon Dioxide 30.4, Anion Gap 9, BUN 9, Creatinine 0.82, Estim Creat Clear Calc 39.37 L, Est GFR (MDRD) Non-Af 69, BUN/Creatinine Ratio 10.8, Glucose 99, Calcium 9.0 Rhythm Strip Rhythm Strip: Sinus Rhythm Rate: 62 Ectopy: None Physical Exam Const alert, oriented x3 and no apparent distress Constitutional Narrative: Frail General Appearance: cooperative HEENT normocephalic and head/scalp atraumatic Eyes EOMs intact bilaterally Neck supple and no JVD Lymph Lymphatic: no lymphedema noted Resp Resp Narrative: Mildly diminished breath sounds bibasilarly. No wheezes or crackles. On room air. Cardio regular rate, regular rhythm, S1 normal heart sound, S2 normal heart sound and no murmurs GI normal to inspection, nondistended, normoactive bowel sounds, soft to palpation, non-tender and non-distended Extremity normal capillary refill, no clubbing, cyanosis or edema and no calf tenderness General Extremity: no tenderness to palpation of joints or extremities Skin General Skin Exam: no breakdown Neuro CN's II-XII intact bilaterally, no focal motor deficits and no sensory deficits noted Motor Exam: general weakness Psych thought process normal, cooperative and affect normal Appearance: appropriate Assessment & Plan Assessment/Plan (1) Adult failure to thrive: (2) Diarrhea: PLAN: Plan #Debility and weakness with failure to thrive. Patient lives with her son at home. He has been falling frequently. She also has underlying dementia. Patient has been stable and communicative. She has not had any more diarrhea. PT OT on board. she is awaiting placement. #Dementia without behavioral disturbance: On donepezil. PT OT on board. For precautions. 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 On Eliquis and statin. PT OT on board. #Paroxysmal A-fib: Amiodarone. On Eliquis. DVT prophylaxis, already on Eliquis CODE STATUS: DNR CCA no intubation. Disposition: awaiting placement. Charges/Coding Visit Charges Inpatient E&M: 40870 Subs Hosp L2
--- NOTE | 2025-01-22 13:50 | CASEMGMT ---
Addendum entered by Isadora Gonzalez 01/22/25 15:13: SABRINA received notice from pt son that [facility] reports they have a room available today. SABRINA called [facility] to confirm; [facility] reports that there was a change in admissions and a bed is available. SABRINA updated physician; plan is to d/c today. SABRINA updated pt family and DCA. Plan: [facility]; private pay TIKA Nino Original Note: Social Work- SABRINA met with pt sons, Espinoza (HCPOA) and Michael, as well as pt sister Kisha, and [employer] rep Juliane to discuss discharge planning. Pt reported to be over-income and also have resources that will need to be spent down prior to LTC [facility]. Pt sons report they plan to spend down using facility costs and report understanding of process. Pt would like private room if one is available. DCA updated and notified of referral request. SABRINA received notice that [facility] accepted under [facility] with a transfer to LTC as a bed becomes available. Cost up front of $9875; pt sons agreeable to pay. Espinoza, son and [facility] provided with [facility] contact to work out payment arrangements. Pt sons report that they will transport pt to [facility]. They will be available after 12:00 tomorrow for transport. SABRINA remains available to follow. Plan: [facility]; private pay TIKA Nino
[2025-01-22 14:58] VITALS: BP 98/54; PULSE 65; RESP 18; TEMP 36.6; O2SAT 95
--- NOTE | 2025-01-22 16:03 | TREXTCAR_ITS ---
Diet Diet Order/Speech Therapy: INPATIENT Hospital Diet / Speech Therapy Order(s) 01/19/25 23:49 Diet: Consistent Carb - Calorie Controlled Food consistency:: Regular Liquid Consistency:: Regular/Thin Dietary Modifications:: Lactose Controlled Type of Dietary Supplement:: Glucerna Shake Diet Comments: 120 ml glucerna shake tid w/ meals - prefers strawberry How many daily calories?: 1800 calorie Routine Orders/Code Status Enema Type: Fleetz Enema Frequency: Daily PRN Suppository Type: Dulcolax 10mg Suppository Frequency: Daily PRN DC O2, CPAP, BIPAP needs Home O2 Discharge instructions: No Wound(s) L posterior thigh: Wound Type: pinched from toilet seat R posterior thigh: Wound Type: pinched from toilet seat Therapies Weight Bearing: Weight bearing as tolerated Physical Therapy: Eval and Treat Occupational Therapy: Eval and Treat Problem/Diagnosis (1) Adult failure to thrive: Status: Acute Code(s): R62.7 - Adult failure to thrive (2) Diarrhea: Status: Acute Code(s): R19.7 - Diarrhea, unspecified Plan #Debility and weakness with failure to thrive. * Patient lives with her son at home. He has been falling frequently. She also has underlying dementia. * Patient has been stable and communicative. She has not had any more diarrhea. * PT OT on board. * she is awaiting placement. #Dementia without behavioral disturbance: On donepezil. PT OT on board. For precautions. #Hyperlipidemia: On statin #History of CVA: Has chronic oropharyngeal dysphagia and some left-sided he miparesis as a sequelae from the stroke. On Eliquis and statin. PT OT on board. #Paroxysmal A-fib: Amiodarone. On Eliquis. DVT prophylaxis, already on Eliquis CODE STATUS: DNR CCA no intubation. Disposition: awaiting placement. Allergies/Procedures Done in Hospital Allergies propoxyphene (From Darvocet-N) Allergy (Unknown, Verified 01/19/25 18:38) unknown Sulfa (Sulfonamide Antibiotics) Allergy (Unknown, Verified 01/19/25 18:38) unknown Procedures: None Type of Care/Length of Stay Estimated LOS: Convalescent Care Less Than 30 days Type of Care Needed: Skilled Rehab Potential: Fair Prognosis: Fair Additional Orders/Day of Discharge Day of Discharge: 01/22/25 Dietary and Speech Recommendations Dietitian Recommendations/Changes: Will continue 1800 goldy Control/ Consistent CHO and Lactose Controlled diet Will order strawberry glucerna shake tid w/ meals for increased nutrition if consumed. Discharge Plan Admission Admit Date/Time: 01/19/25 23:02 Primary Reason for Your Visit: debiolty and weakness Attending Provider: Stephanie Bermudez Primary Care Provider: Rufino Ortega Consulting Providers: Laurel Kim Instructions Patient Instructions: ED Weakness Uncertain Cause, ED FALL-from Vkvbzxkyb-Apntz-Vofcdm Discharge Orders/Prescriptions Prescriptions: Continued multivitamin Tablet 1 tab PO DAILY loperamide 2 mg capsule 2 mg PO Q6H PRN (Reason: diarrhea) trazodone 50 mg tablet 25 mg PO QHS atorvastatin 40 mg Tablet 40 mg PO QHS 30 Days Qty: 30 0RF Eliquis 5 mg Tablet 5 mg PO BID 30 Days Qty: 60 0RF Gemtesa 75 mg tablet 75 mg PO DAILY acetaminophen 500 mg Tablet 1,000 mg PO Q6H PRN (Reason: Pain Score 1-10) Qty: 1 0RF melatonin 3 mg Tablet 3 mg PO QHS PRN (Reason: Insomnia) Qty: 1 0RF donepezil 10 mg tablet 10 mg PO QHS amiodarone 200 mg tablet 200 mg PO QDAY Qty: 30 11RF Referrals / Follow Up: Rufino Ortega MD [Primary Care Provider, Family Practice] - Within 1 Week Disposition Disposition (needs filled in before D/C Order can be placed): [facility]
--- NOTE | 2025-01-22 16:04 | DS.PCM_ITS ---
Providers Date of Admission: 01/19/25 Date of Discharge: 01/22/25 Primary Care Physician: Dr. Rufino Ortega MD Reason For Visit: ADULT FTT Diagnosis Discharge Diagnosis (1) Adult failure to thrive: Status: Acute Code(s): R62.7 - Adult failure to thrive (2) Diarrhea: Status: Acute Code(s): R19.7 - Diarrhea, unspecified Plan #Debility and weakness with failure to thrive. * Patient lives with her son at home. He has been falling frequently. She also has underlying dementia. * Patient has been stable and communicative. She has not had any more diarrhea. * PT OT on board. * she is awaiting placement. #Dementia without behavioral disturbance: On donepezil. PT OT on board. For precautions. 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 On Eliquis and statin. PT OT on board. #Paroxysmal A-fib: Amiodarone. On Eliquis. DVT prophylaxis, already on Eliquis CODE STATUS: DNR CCA no intubation. Disposition: awaiting placement. Medications at Discharge Home Medications multivitamin 1 tab PO DAILY supplement 10/10/20 apixaban 5 mg tablet (Eliquis) 5 mg PO BID AFIB 30 days #60 tabs 04/20/24 atorvastatin 40 mg tablet 40 mg PO QHS cholesterol 30 days #30 tabs 04/20/24 acetaminophen 500 mg tablet 1,000 mg (2 x 500 mg) PO Q6H PRN Pain Score 1-10 #1 TAB 05/02/24 melatonin 3 mg tablet 3 mg PO QHS PRN Insomnia #1 TAB 05/02/24 donepezil 10 mg tablet 10 mg PO QHS DEMENTIA 10/23/24 amiodarone 200 mg tablet 200 mg PO QDAY #30 tabs 11/29/24 loperamide 2 mg capsule 2 mg PO Q6H PRN diarrhea 01/01/25 trazodone 50 mg tablet 25 mg PO QHS 01/16/25 vibegron 75 mg tablet (Gemtesa) 75 mg PO DAILY 01/19/25 Hospital Course Operations None Procedures None Summary of Care Provided Minutes Spent on Discharge: 42 Hospital Course: Patient is an 89-year-old female with a past medical history as outlined including dementia and chronic oropharyngeal dysphagia 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 Patient lives with her son and she had been noted to be deteriorating so she was brought into the ED. She had not been eating or drinking well also and had been falling several times. She had also had a history of chronic diarrhea and had outpatient workup which was unremarkable. Labs were essentially unremarkable and she was admitted to be managed for debility and weakness with failure to thrive. PT OT was consulted and patient was agreeable to going to a care home facility. She was therefore discharged to care home facility on 01/22/2025. Her diarrhea improved during admission and by the time of discharge she was having formed stools. She is follow-up with her PCP within 1 to 2 weeks. Patient seen and examined prior to discharge. She had no active complaints. Review of systems otherwise negative. Labs and vitals reviewed. Home medication reviewed and reconciled. Physical Exam Const alert, oriented x3 and no apparent distress Constitutional Narrative: Frail General Appearance: cooperative and comfortable HEENT normocephalic, head/scalp atraumatic and hearing grossly normal bilaterally Mouth: oral and palatal mucosa normal Eyes EOMs intact bilaterally Neck supple and no JVD Lymph Lymphatic: no lymphedema noted Resp Resp Narrative: Mildly diminished breath sounds bibasilarly. No wheezes or crackles. On room air. Cardio regular rate, regular rhythm, S1 normal heart sound, S2 normal heart sound and no murmurs GI normal to inspection, nondistended, normoactive bowel sounds, soft to palpation, non-tender and non-distended Extremity normal to inspection, full ROM, normal capillary refill, no clubbing, cyanosis or edema and no calf tenderness General Extremity: no tenderness to palpation of joints or extremities Skin no rashes or lesions noted General Skin Exam: no breakdown Neuro CN's II-XII intact bilaterally, moves all extremities, no focal motor deficits and no sensory deficits noted Sensorium / Orientation: awake and alert Motor Exam: general weakness Psych thought process normal, cooperative and affect normal Appearance: appropriate Medical Records Data Medical Nutrition Assessment Dietitian: Malnutrition Criteria Met Start: 01/20/25 13:02 Freq: Status: Active Protocol: Document 01/20/25 13:02 SERGIO (Rec: 01/20/25 13:02 [facility] [id number]) Nutrition Malnutrition Evidence of Yes Malnutrition Exists Malnutrition (severe Acute Illness/Injury ): Evidenced By Suboptimal Energy Intake (Severe),Weight Loss (Severe) Clinical Problem Acute Disease or Injury Related Malnutrition Etiology related to inadequate energy intake and issues w/ diarrhea Signs/Symptoms as evidenced by po intake meeting < 50% of est nutritional needs and 12.9% 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 Weight / BMI Weight Weight: 145 lb Body Mass Index (BMI) 29.2 ABG / Lab / Microbiology Data 01/22/25 06:19 01/22/25 06:19 Laboratory: Laboratory Results - last 24 hr 01/21/25 16:34: POC Glucose 136 H 01/21/25 20:09: POC Glucose 102 01/22/25 06:19: WBC 3.9 L, RBC 4.12 L, Hgb 12.6, Hct 38.3, MCV 93.0, MCH 30.6, MCHC 32.9, RDW Std Deviation 44.4 H, RDW Coeff of Tanner 13.3, Plt Count 82 L, MPV 10.6, Immature Gran % (Auto) 0.300, Neut % (Auto) 33.2 L, Lymph % (Auto) 45.4 H, [place] % (Auto) 20.6 H, Eos % (Auto) 0.0, Baso % (Auto) 0.5, Absolute Neuts (auto) 1.3 L, Absolute Lymphs (auto) 1.79, Nucleated RBC % 0, Platelet Estimate SLT DEC, Sodium 141, Potassium 4.3, Chloride 101, Carbon Dioxide 30.4, Anion Gap 9, BUN 9, Creatinine 0.82, Estim Creat Clear Calc 39.37 L, Est GFR (MDRD) Non-Af 69, BUN/Creatinine Ratio 10.8, Glucose 99, Calcium 9.0 D/C Instructions Discharge Activity: Return to Normal Activity Weight Bearing Status: Weight bearing as tolerated Call your doctor if you observe: Fever of 101 or Higher, Shortness of breath, Dizziness, Swelling in the ankles and Chest pain DC O2, CPAP, BIPAP Needs Home O2 Discharge instructions: No DC home with Oxygen: No Meaningful Use Info Meaningful Use Meaningful Use Diagnoses (Choose all that apply): None applicable Discharge Plan Admission Admit Date/Time: 01/19/25 23:02 Primary Reason for Your Visit: debility and weakness Attending Provider: Stephanie Bermudez Primary Care Provider: Rufino Ortega Consulting Providers: Laurel Kim Instructions Patient Instructions: ED Weakness Uncertain Cause, ED FALL-from Syhwlovgu-Rgkxb-Bfiise Discharge Orders/Prescriptions Prescriptions: Continued multivitamin Tablet 1 tab PO DAILY loperamide 2 mg capsule 2 mg PO Q6H PRN (Reason: diarrhea) trazodone 50 mg tablet 25 mg PO QHS atorvastatin 40 mg Tablet 40 mg PO QHS 30 Days Qty: 30 0RF Eliquis 5 mg Tablet 5 mg PO BID 30 Days Qty: 60 0RF Gemtesa 75 mg tablet 75 mg PO DAILY acetaminophen 500 mg Tablet 1,000 mg PO Q6H PRN (Reason: Pain Score 1-10) Qty: 1 0RF melatonin 3 mg Tablet 3 mg PO QHS PRN (Reason: Insomnia) Qty: 1 0RF donepezil 10 mg tablet 10 mg PO QHS amiodarone 200 mg tablet 200 mg PO QDAY Qty: 30 11RF Referrals / Follow Up: Rufino Ortega MD [Primary Care Provider, Family Practice] - Within 1 Week Disposition Disposition (needs filled in before D/C Order can be placed): [facility] Charges/Coding Visit Charges Inpatient E&M: 12143 Disch Hosp >30min
--- NOTE | 2025-01-22 16:09 | CASEMGMT ---
Social Work Physician updated and pt is ready for discharge today.? PASRR form completed in [facility] and placed on chart. SW met with pt & pt son and they are agreeable to discharge plan as stated above.? Pt son reports that he will transport pt. DCA and bedside nurse notified of discharge. Disposition:[facility]?, private pay TIKA Nino
[2025-01-22 16:15] VITALS: BP 113/50; PULSE 65
--- NOTE | 2025-01-22 16:28 | CASEMGMT ---
Discharge Planning Discharge orders, signed med list, and transport time sent to [facility]. Pts family will transport pt when discharge is complete. Felipa Nichols DC Planning Asst.
--- NOTE | 2025-01-22 16:32 | PHA.DC.MR.R ---
Pharmacy IN Med Reconciliation Pharmacy Service has performed discharge medication reconciliation for this patient. The patient's discharge medication list was reviewed for discrepancies and discrepancies were resolved. Medications at Discharge Home Medications multivitamin 1 tab PO DAILY supplement 10/10/20 apixaban 5 mg tablet (Eliquis) 5 mg PO BID AFIB 30 days #60 tabs 04/20/24 atorvastatin 40 mg tablet 40 mg PO QHS cholesterol 30 days #30 tabs 04/20/24 acetaminophen 500 mg tablet 1,000 mg (2 x 500 mg) PO Q6H PRN Pain Score 1-10 #1 TAB 05/02/24 melatonin 3 mg tablet 3 mg PO QHS PRN Insomnia #1 TAB 05/02/24 donepezil 10 mg tablet 10 mg PO QHS DEMENTIA 10/23/24 amiodarone 200 mg tablet 200 mg PO QDAY #30 tabs 11/29/24 loperamide 2 mg capsule 2 mg PO Q6H PRN diarrhea 01/01/25 trazodone 50 mg tablet 25 mg PO QHS 01/16/25 vibegron 75 mg tablet (Gemtesa) 75 mg PO DAILY 01/19/25
== END 2025-01-22 16:55 ==
LOC: ED 23:00 → MS3 23:08
PROVIDERS: Admitting Provider Family Medicine; Emergency Provider Emergency Medicine; PCP Family Medicine; Visit Provider Student in an Organized Health Care Education/Training Program
DX: R53.1 Weakness (principal); I69.354 Hemiplegia and hemiparesis following cerebral infarction affecting left non-dominant side; F03.90 Unspecified dementia, unspecified severity, without behavioral disturbance, psychotic disturbance, mood disturbance, and anxiety; I48.0 Paroxysmal atrial fibrillation; R19.7 Diarrhea, unspecified; E66.9 Obesity, unspecified; E78.5 Hyperlipidemia, unspecified; Z79.899 Other long term (current) drug therapy; R62.7 Adult failure to thrive; R53.81 Other malaise; Z79.01 Long term (current) use of anticoagulants; I12.9 Hypertensive chronic kidney disease with stage 1 through stage 4 chronic kidney disease, or unspecified chronic kidney disease; R53.83 Other fatigue; R73.03 Prediabetes; I69.391 Dysphagia following cerebral infarction; R13.12 Dysphagia, oropharyngeal phase; N18.2 Chronic kidney disease, stage 2 (mild); Z68.30 Body mass index [BMI] 30.0-30.9, adult; R29.6 Repeated falls; Z66 Do not resuscitate; E43 Unspecified severe protein-calorie malnutrition; Z68.29 Body mass index [BMI] 29.0-29.9, adult
CPT/HCPCS: 36415; 71045; 80048; 80053; 81001; 82962; 83735; 84100; 84145; 85025; 92610; 93005; 94668; 96360; 96361; 97116; 97162; 97165; 97530; 97535; 97802; 99221; 99285; P9612; A4216; G0378